=== PATIENT | male | born 1950 | race Caucasian/White ===

== ENCOUNTER 2019-12-06 14:02 | Outpatient (REF) | payer MEDICARE, MEDICAID, SELFPAY ==
--- NOTE | 2019-12-06 14:03 | FL_ITS ---
EXAMINATION: MODIFIED BARIUM SWALLOW CLINICAL INFORMATION: Dysphagia COMPARISON: 08/10/2019 TECHNIQUE: Routine modified barium swallow was performed with the patient in a left lateral seated position. The patient took thin, nectar, honey-thick, pureed and solid food consistencies of barium without difficulty. FLUOROSCOPY TIME: 0.8 minutes of fluoroscopic time was utilized. DOSE AREA PRODUCT: 0.783 Gy-cm2 FINDINGS: The patient demonstrated normal oral bolus formation. There was a no delay in the swallow trigger mechanism with no pooling of fluid in the vallecula and piriform sinuses. There was good contraction and elevation of the soft palate without evidence of nasopharyngeal reflux. There was good anterior-superior excursion of the laryngeal-hyoid complex with good posterior-inferior tipping of the epiglottis. No cricopharyngeal abnormalities were noted. The pharynx and cervical spine have a normal appearance. No aspiration or laryngeal penetration was seen with any oral intake. IMPRESSION: 1. No evidence of aspiration or laryngeal penetration. 2. No significant abnormalities of the oral and pharyngeal phase of swallowing as described above. 3. Please see speech pathology report for specific diet recommendations.
== END 2019-12-06 14:03 | disposition home or self-care (01) ==
LOC: HO.XRAY 14:02
PROVIDERS: Visit Provider Internal Medicine Gastroenterology
DX: R13.10 Dysphagia, unspecified (principal)
CPT/HCPCS: 74220; 92611

== ENCOUNTER 2020-01-31 11:50 | Outpatient (REF) | payer MEDICARE, MEDICAID, SELFPAY ==
--- NOTE | 2020-01-31 12:27 | MR_ITS ---
EXAMINATION: MR BRAIN WITHOUT AND WITH CONTRAST CLINICAL INFORMATION: Anosmia. COMPARISON: CT scan of the head 09/20/2018. Brain MRI 09/15/2016. TECHNIQUE: Multiplanar MR imaging of the brain was performed without and with contrast. A total of 10 mL Gadavist was utilized for this examination. FINDINGS: There is a small focus of gliosis and cortical encephalomalacia involving the left inferior parietal lobule. Scattered nonspecific foci of T2 FLAIR signal hyperintensity are also visualized within the periventricular white matter that most likely represent a chronic manifestation of small vessel ischemia. No acute territorial infarct. No pathological magnetic susceptibility artifact. Intracranial vascular flow voids are maintained. There is a well marginated arachnoid cyst located at the anterior margin of the left middle cranial fossa that measures up to 3.2 cm and maximal transaxial dimension. This finding has not substantially changed when compared to prior MR imaging from 09/17/2016. Postcontrast images reveal no abnormal mass or enhancement within the intracranial compartment. No intracranial mass effect or midline shift. Lateral and third ventricles are normal. No hydrocephalus. Midline structures including the cervicomedullary junction are normal. No acute bone marrow signal changes. There is a trace left mastoid effusion. Mild to moderate paranasal sinus disease primarily affecting the ethmoid air cells and maxillary sinuses. Globes and orbits are symmetric. 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 Scattered chronic small vessel ischemic changes are also visualized within the periventricular white matter. No evidence of acute territorial infarct or hemorrhage. No abnormal intracranial mass or enhancement.
[2020-01-31 12:37] LABS: Blood Urea Nitrogen 23 mg/dL (9-16); Estimated Glomerular Filt Rate > 60
== END 2020-01-31 11:51 | disposition home or self-care (01) ==
LOC: HO.MRI 11:50
PROVIDERS: PCP Internal Medicine; Visit Provider Internal Medicine Gastroenterology
DX: H93.19 Tinnitus, unspecified ear (principal); R43.0 Anosmia; R43.2 Parageusia
CPT/HCPCS: 70553; 82565; 84520; A9585

== ENCOUNTER → 2020-03-17 12:36 | Outpatient (BNVA) | payer MEDICARE, MEDICAID, SELFPAY | PROVIDERS: PCP Internal Medicine; Visit Provider Anesthesiology | DX: M47.817 Spondylosis without myelopathy or radiculopathy, lumbosacral region (principal); M47.812 Spondylosis without myelopathy or radiculopathy, cervical region | CPT/HCPCS: 99212 ==

== ENCOUNTER → 2020-04-02 08:04 | Outpatient (BNVA) | payer MEDICARE, MEDICAID, SELFPAY | PROVIDERS: PCP Internal Medicine; Visit Provider Nurse Practitioner Family | DX: M47.812 Spondylosis without myelopathy or radiculopathy, cervical region (principal); M47.817 Spondylosis without myelopathy or radiculopathy, lumbosacral region | CPT/HCPCS: 99212 ==

== ENCOUNTER → 2020-04-16 08:26 | Outpatient (BNVA) | payer MEDICARE, MEDICAID, SELFPAY | PROVIDERS: PCP Internal Medicine; Visit Provider Nurse Practitioner Family | DX: M47.812 Spondylosis without myelopathy or radiculopathy, cervical region (principal); M47.817 Spondylosis without myelopathy or radiculopathy, lumbosacral region | CPT/HCPCS: 99212 ==

== ENCOUNTER → 2020-04-21 10:02 | Outpatient (BNVA) | payer MEDICARE, MEDICAID, SELFPAY | PROVIDERS: PCP Internal Medicine; Visit Provider Anesthesiology | DX: M47.812 Spondylosis without myelopathy or radiculopathy, cervical region (principal); M47.817 Spondylosis without myelopathy or radiculopathy, lumbosacral region | CPT/HCPCS: Q3014 ==

== ENCOUNTER 2020-05-09 13:25 | Day surgery (SDC) | payer MEDICARE, MEDICAID, SELFPAY ==
--- NOTE | 2020-05-06 12:57 | HO.ANESPROP2 ---
Documented by User: Marquita Sanchez 05/08/20 10:56 HPI - Anesthesia Eval Consult details Narrative: 70yo M for Medial Branch Radiofrequency Pt admitted to [facility] [place] 04/07/20 with CP after telehealth with diplomatic officer. In-patient workup was neg for cardiac etiology. [employer] Manager suggests GI origin of symptoms (esophageal spasm). [employer] Product Development Manager approved interrupting anticoag perioperatively, notes stroke risk. Patient discussied with Dr Gates. [facility] Active Problems Active Problems: All Active Problems (Updated 05/05/20 @ 10:08 by Bridget Meléndez) Anosmia (Acute) Dysgeusia (Acute) Tinnitus (Acute) Depression screen (Acute) Spondylosis of cervical joint without myelopathy (Acute) Spondylosis of lumbosacral spine without myelopathy (Acute) Past Medical History Medical History (Updated 05/08/20 @ 10:52 by Marquita Sanchez) AAA (abdominal aortic aneurysm) Arrhythmia CAD (coronary artery disease) CHF (congestive heart failure) Chronic renal insufficiency Elevated cholesterol History of ischemic cardiomyopathy HTN (hypertension) IDDM (insulin dependent diabetes mellitus) Myocardial infarction On anticoagulant therapy Sleep apnea 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 Family History Family History Father Hx of congenital heart disease Mother Hx of heat stroke Surgical History Surgical History History of colonoscopy History of hernia repair History of PTCA Hx of CABG Hx of endoscopy Hx of gastric bypass Hx of parathyroidectomy Social History Social History Alcohol intake: never Smoking Status: Never smoker Advance Directives: No Advance Directives Information Provided: Yes Meds Allergies Allergy/AdvReac Type Severity Reaction Status Date / Time No Known Allergies Allergy Verified 04/16/20 08:32 [No Known Allergies*] Home Medications Medication Instructions Recorded Confirmed Last Taken Type aspirin 81 mg tablet,delayed 81 mg PO DAILY 04/02/20 05/05/20 05/01/20 History release azelastine 137 mcg (0.1 %) nasal 1 spray INTRANASAL BID 04/02/20 05/05/20 Unknown History spray aerosol baclofen 20 mg tablet 20 mg PO QID 04/02/20 04/16/20 Unknown History bupropion HCl 300 mg 24 hr tablet, 300 mg PO QAM 04/02/20 05/05/20 Unknown History extended release calcium carbonate 600 mg calcium 600 mg PO DAILY 04/02/20 05/05/20 Unknown History (1,500 mg) tablet cholecalciferol (vitamin D3) 25 25 mcg PO DAILY 04/02/20 05/05/20 Unknown History mcg (1,000 unit) capsule docusate sodium 100 mg capsule 100 mg PO DAILY 04/02/20 04/16/20 Unknown History esomeprazole magnesium 20 mg 20 mg PO DAILY 04/02/20 05/05/20 Unknown History capsule,delayed release finasteride 5 mg tablet 5 mg PO DAILY 04/02/20 05/05/20 Unknown History fluticasone propionate 50 1 spray INTRANASAL DAILY 04/02/20 05/05/20 Unknown History mcg/actuation nasal spray,suspension hydroxyzine HCl 25 mg tablet 25 mg PO BID PRN 04/02/20 05/05/20 Unknown History lidocaine HCl 4 % topical cream 1 appl TOPICAL QID PRN 04/02/20 04/16/20 Unknown History lisinopril 5 mg tablet 5 mg PO DAILY 04/02/20 05/05/20 Unknown History metoprolol tartrate 25 mg tablet 12.5 mg PO BID 04/02/20 05/05/20 Unknown History primidone 50 mg tablet 50 mg PO TID tab 04/02/20 05/05/20 Unknown History rivaroxaban 20 mg tablet 20 mg PO DAILY 04/02/20 05/05/20 05/06/20 History rosuvastatin 40 mg tablet 40 mg PO DAILY 04/02/20 05/05/20 Unknown History sertraline 25 mg tablet 25 mg PO DAILY 04/02/20 04/16/20 Unknown History tamsulosin 0.4 mg capsule 0.4 mg PO BEDTIME 04/02/20 05/05/20 Unknown History torsemide 20 mg tablet 20 mg PO DAILY 04/02/20 05/05/20 Unknown History amitriptyline 2 tab PO BEDTIME 05/05/20 05/05/20 Unknown History insulin glargine [Basaglar KwikPen 30 unit SUBCUT BEDTIME 05/05/20 05/05/20 Unknown History U-100 Insulin] uixtjuoethiw-yvol-tlwjh acid 1 tab PO QAM 05/05/20 05/05/20 Unknown History [Cerovite Advanced Formula] Exam Exam Date and Time: May 06, 2020 1257 Narrative Narrative: EKG 04/07/20 Afib with slow VR, Non-specific intra-ventricular conduction block, Inferior infart (cited 2004) Echo 04/11/20 LV size is normal, LV wall thickness is normal, Overall LV systolic function is normal, LVEF 60-65% Basal to mid inferolateral wall appears severely hypokinetic Unable to assess diastolic function due to afib Low gradient , no AR RV is poorly visualized. RV appears mildly dilated with mildly reduced systolic function Cath 04/10/20 ZAVALA to LAD patent, [place] [employer] [place] LCx EXTERNAL RELATIONS DIRECTOR and radial graft to LCx occluded, SVG to rPDA patent; no findings for cardiac chest pain, cardiology suggested symptoms r/t GI in origin CXR 04/07/20 No significant interval change. No evidence of acute pulmonary disease. 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 Family History Family History Father Hx of congenital heart disease Mother Hx of heat stroke Surgical History Surgical History History of colonoscopy History of hernia repair History of PTCA Hx of CABG Hx of endoscopy Hx of gastric bypass Hx of parathyroidectomy Social History Social History Alcohol intake: never Smoking Status: Never smoker Advance Directives: No Advance Directives Information Provided: Yes Meds Allergies Allergy/AdvReac Type Severity Reaction Status Date / Time No Known Allergies Allergy Verified 04/16/20 08:32 [No Known Allergies*] Home Medications Medication Instructions Recorded Confirmed Last Taken Type aspirin 81 mg tablet,delayed 81 mg PO DAILY 04/02/20 05/05/20 05/01/20 History release azelastine 137 mcg (0.1 %) nasal 1 spray INTRANASAL BID 04/02/20 05/05/20 Unknown History spray aerosol baclofen 20 mg tablet 20 mg PO QID 04/02/20 04/16/20 Unknown History bupropion HCl 300 mg 24 hr tablet, 300 mg PO QAM 04/02/20 05/05/20 Unknown History extended release calcium carbonate 600 mg calcium 600 mg PO DAILY 04/02/20 05/05/20 Unknown History (1,500 mg) tablet cholecalciferol (vitamin D3) 25 25 mcg PO DAILY 04/02/20 05/05/20 Unknown History mcg (1,000 unit) capsule docusate sodium 100 mg capsule 100 mg PO DAILY 04/02/20 04/16/20 Unknown History esomeprazole magnesium 20 mg 20 mg PO DAILY 04/02/20 05/05/20 Unknown History capsule,delayed release finasteride 5 mg tablet 5 mg PO DAILY 04/02/20 05/05/20 Unknown History fluticasone propionate 50 1 spray INTRANASAL DAILY 04/02/20 05/05/20 Unknown History mcg/actuation nasal spray,suspension hydroxyzine HCl 25 mg tablet 25 mg PO BID PRN 04/02/20 05/05/20 Unknown History lidocaine HCl 4 % topical cream 1 appl TOPICAL QID PRN 04/02/20 04/16/20 Unknown History lisinopril 5 mg tablet 5 mg PO DAILY 04/02/20 05/05/20 Unknown History metoprolol tartrate 25 mg tablet 12.5 mg PO BID 04/02/20 05/05/20 Unknown History primidone 50 mg tablet 50 mg PO TID tab 04/02/20 05/05/20 Unknown History rivaroxaban 20 mg tablet 20 mg PO DAILY 04/02/20 05/05/20 05/06/20 History rosuvastatin 40 mg tablet 40 mg PO DAILY 04/02/20 05/05/20 Unknown History sertraline 25 mg tablet 25 mg PO DAILY 04/02/20 04/16/20 Unknown History tamsulosin 0.4 mg capsule 0.4 mg PO BEDTIME 04/02/20 05/05/20 Unknown History torsemide 20 mg tablet 20 mg PO DAILY 04/02/20 05/05/20 Unknown History amitriptyline 2 tab PO BEDTIME 05/05/20 05/05/20 Unknown History insulin glargine [Basaglar KwikPen 30 unit SUBCUT BEDTIME 05/05/20 05/05/20 Unknown History U-100 Insulin] qiiofmemjdpl-grjh-pexkw acid 1 tab PO QAM 05/05/20 05/05/20 Unknown History [Cerovite Advanced Formula] Exam Airway Mallampati Class: III TM Dist: >3cm Neck ROM: Full Heart: RRR Lungs: CTA
--- NOTE | ~2020-05-09 | FL_ITS ---
EXAMINATION: XR FLUOROSCOPY WITH IMAGES CLINICAL INFORMATION: Medial branch RFA COMPARISON: Previous exam January 2018 TECHNIQUE: Fluoroscopy performed by Dr. Chino Gates. Fluoroscopy time: 0.8 minutes DAP: 10.4 mGycm2 Images: 4 FINDINGS: Images demonstrate bilateral lateral lead placement at the L3-L4 L4-L5 and L5-S1 levels. There is an aortobiiliac endograft. FL/FL guidance in OR IMPRESSION: Fluoroscopy guidance for medial branch RFA.
[2020-05-09 13:33] VITALS: BP 131/63; PULSE 56; RESP 18; TEMP 36.4; O2SAT 96; BMI 34.0
[2020-05-09 13:35] LABS: Glucose, Whole Blood 92 mg/dL (60-115)
--- NOTE | 2020-05-09 13:56 | PM.OP ---
Brief Operative Note Date of Service: 05/09/20 Pre-op diagnosis: Spondylosis lumbar spine without myelopathy or radiculopathy Post-op diagnosis: same Procedure: RFA L3-L4 dorsal ramus L5 bilateral Implants: None Surgeon: Chino Gates MD Anesthesia: MAC Estimated blood loss (mL): 2 Pathology: none sent Condition: stable Disposition: PACU
--- NOTE | 2020-05-09 13:57 | PC.NURSE ---
pt unsure what meds took today in package. he said took all his am meds.
--- NOTE | 2020-05-09 13:58 | MHC.SHP ---
Pre-Procedural Eval Section A The patient is an INPATIENT: No Changes since office visit: Yes Patient answered all questions The History & Physical has been completed within 30 days and I have reviewed it.: No Section B Chief Complaint: spondylosis cervical region Details of Present Illness: Spondylosis lumbar without myelopathy or radiculopathy Relevant Family History (Specify if Yes): No Relevant Social History: None Present Medications: see Short Stay Collaborative assessment Medical History: No relevant PMH History of Previous Operations: No relevant previous surgery Allergies: Allergies Allergy/AdvReac Type Severity Reaction Status Date / Time No Known Allergies Allergy Verified 04/16/20 08:32 [No Known Allergies*] Review of Systems Sugical H&P ROS: Negative: Cardiovascular, Respiratory, Neurological, Psychiatric, Hem-Onc, Allergic/Immunologic, Gastrointestinal, Genitourinary, Musculoskeletal, Integumentary, Endocrine and Eyes/Ears/Nose/Throat and Yes, Specify: Constitution (Obesity) Exam Surgical H&P Exam: Normal: HEENT, Normal: Heart, Normal: Lungs, Normal: Extremities, Normal: Abdomen, Normal: Skin and Normal: Neurological Plan Diagnosis/Plan: Unchanged I have reviewed the history and physical and performed a pertinent physical examination on my patient. No changes have occurred unless specified.
--- NOTE | 2020-05-09 14:00 | PC.NURSE ---
glasses in rightjacket pocket zipped up
--- NOTE | 2020-05-09 14:46 | W.PM.OPN ---
Operative Note Operative Note Date of Service: 05/09/20 Narrative: Joe is very pleasant pleasant 70 years old gentleman who came to OR for the medial branch radiofrequency ablation-L3 L4 dorsal ramus L5 o bilateral the attempt to treat lumbar spondylosis related pain After obtaining informed consent patient was brought to the operating room, HE was positioned prone on operating table, [employer] monitors were applied and patient was deeply sedated. Time-out was performed delineating correct site, side, the nature of the procedure, patient's allergy, preoperative antibiotic if needed. All operating room staff was participating in OR time-out procedure. He received preoperatively clindamycin 900 mg IV approximately 20 minutes before the procedure. Patient's entire back was prepped with ChloraPrep twice and draped with sterile utility drapes. Sterilely draped C-arm was brought over operating field and square picture of L4 and L5 vertebra as well as sacral bone were demonstrated on the screen. The point of interests were delineated as connection of superior articular process ofL4, L5 vertebrae bilaterally with corresponding bilateral transverse processes, as well as connection of the superior articular process of S1 bilateral with bilateral sacral alae. The projection of the point of interest to the skin was injected with small amount of lidocaine 2%. After that 18 gauge radiofrequency cannulas were sequentially driven to the point of interest in tunnel vision fashion 1st on the right and then on the left. When needle gently contacted the bone sensory and motor stimulation was performed. On sensory stimulation patient reported pain in the area of the stimulation, on motor stimulation patient denied any pulsating movement in the lower extremity. After that the needle was injected with small amount of mixture of bupivacaine 0.5% and lidocaine 2% with addition of trace amount of Kenalog. Total dose of Kenalog was less than 20 mg. Energy application was performed with 89 degree centigrade for 90 seconds on each side. After 1st application of energy the needles were rotated 180? and application of energy was repeated.. Upon completion of the energy application cannulas were removed sterile dressing was applied. Patient tolerated procedure well he was taking outside of the operating room to recovery room where he recovered uneventfully. He went home without immediate complications.
[2020-05-09 14:50] VITALS: BP 116/67; PULSE 51; RESP 14; TEMP 37.1; O2SAT 96
[2020-05-09 15:04] VITALS: BP 133/64; PULSE 50; RESP 16; TEMP 37.1; O2SAT 97
--- NOTE | 2020-05-09 16:18 | HO.POSTANES ---
Post Anesthesia Evaluation Post Anesthesia Evaluation Vital Signs: Vital Signs Temp Pulse Resp BP Pulse Ox 05/09/20 15:04 98.8 F 50 16 133/64 97 05/09/20 14:50 98.8 F 51 14 116/67 96 05/09/20 13:33 97.5 F 56 18 131/63 96 Anesthesia: Monitored Mental Status: Awake Pain Control: Satisfactory Nausea/Vomiting: None Hydration: Adequate Anesthesia-Related Issues: No Anes. Related Issues
== END 2020-05-09 18:00 | disposition home or self-care (01) ==
PROVIDERS: PCP Internal Medicine; Visit Provider Anesthesiology
PROC: (CPT 64635; principal; 2020-05-09 15:00)
DX: M47.817 Spondylosis without myelopathy or radiculopathy, lumbosacral region (principal); M47.812 Spondylosis without myelopathy or radiculopathy, cervical region; I11.0 Hypertensive heart disease with heart failure; I50.32 Chronic diastolic (congestive) heart failure; E11.22 Type 2 diabetes mellitus with diabetic chronic kidney disease; I25.2 Old myocardial infarction; G47.33 Obstructive sleep apnea (adult) (pediatric); N18.9 Chronic kidney disease, unspecified; Z79.4 Long term (current) use of insulin; Z79.01 Long term (current) use of anticoagulants; Z79.82 Long term (current) use of aspirin
CPT/HCPCS: 64635; 64636 ×2; 82947; J2250; J3010; J3300

== ENCOUNTER → 2020-05-14 08:03 | Outpatient (BNVA) | payer MEDICARE, MEDICAID, SELFPAY | PROVIDERS: PCP Internal Medicine; Visit Provider Nurse Practitioner Family | DX: M47.812 Spondylosis without myelopathy or radiculopathy, cervical region (principal); M47.817 Spondylosis without myelopathy or radiculopathy, lumbosacral region; Z79.899 Other long term (current) drug therapy | CPT/HCPCS: 99212 ==

== ENCOUNTER → 2020-05-26 14:50 | Outpatient (BNVA) | payer MEDICARE, MEDICAID, SELFPAY | PROVIDERS: PCP Internal Medicine; Visit Provider Internal Medicine Gastroenterology | DX: R68.81 Early satiety (principal); R43.2 Parageusia; R13.10 Dysphagia, unspecified | CPT/HCPCS: Q3014 ==

== ENCOUNTER → 2020-06-11 10:43 | Outpatient (BNVA) | payer MEDICARE, MEDICAID, SELFPAY | PROVIDERS: PCP Internal Medicine; Visit Provider Nurse Practitioner Family | DX: M47.812 Spondylosis without myelopathy or radiculopathy, cervical region (principal); M47.817 Spondylosis without myelopathy or radiculopathy, lumbosacral region | CPT/HCPCS: 99212 ==

== ENCOUNTER → 2020-06-17 07:50 | Outpatient (REF) | payer MEDICARE, MEDICAID, SELFPAY ==
--- NOTE | ~2020-06-17 | NM_ITS ---
EXAMINATION: NM RADIONUCLIDE SOLID FOOD GASTRIC EMPTYING 4-HOUR STUDY CLINICAL INFORMATION: Early satiety. History of gastric sleeve surgery around 2005. The patient apparently takes multiple medications (about 27 medications a day). Medications were this morning at 6:00 with about 12 ounces of water. History of stroke. COMPARISON: None TECHNIQUE: A standard meal consisting of 4 oz of scrambled egg whites tagged with 0.71 microcuries Tc-99m Sulfur Colloid, 6 oz water and 2 slices of toast with jelly was administered orally to the patient. Images were obtained using a dual head gamma camera in the anterior and posterior projections over of the stomach immediately post ingestion and at hourly intervals up to 4 hours post ingestion. The anterior and posterior counts at each time interval were averaged using the geometric mean and expressed as percentage of the immediate post ingestion counts. FINDINGS: There is good visualization of activity in the stomach immediately post ingestion. As the study progresses, there is good clearance of activity from the stomach and visualization of progressively increasing small bowel activity. By the end of the study, there is almost no retention noted in the stomach. Retention in the stomach at each time interval was: 1 hour 46% (normal 37%-90%) 2 hours 22% (normal 30%-60%) 3 hours 10% 4 hours 9% (normal 0%-10%) NM/NM gastric emptying study IMPRESSION: Normal 4-hour solid food gastric emptying study.
== END ==
LOC: HO.NUCMED 07:50
PROVIDERS: Visit Provider Internal Medicine Gastroenterology
DX: R68.81 Early satiety (principal)
CPT/HCPCS: 78264; A9541

== ENCOUNTER 2020-06-20 08:35 | Day surgery (SDC) | payer MEDICARE, MEDICAID, SELFPAY ==
[2020-06-17 11:36] VITALS: BMI 34.0
--- NOTE | 2020-06-19 12:02 | P.CONAN_ITS ---
Documented by User: Marquita Sanchez 06/19/20 12:04 HPI - Anesthesia Eval Consult details Narrative: 70yo M for Bilateral Medial Branch Radiofrequency s/p Medial Branch Radiofreq with MAC 04/2020 [place] [facility] [place] after telehealth with computer specialist. In- patient workup was neg for cardiac etiology. Survey Supervisor suggests GI origin of symptoms (esophageal spasm). Survey Supervisor approved interrupting anticoag perioperatively, notes stroke risk. Patient discussed with Dr Gates. PRN opioids PMFSH Active Problems Active Problems: All Active Problems (Updated 05/26/20 @ 14:14 by Estiven Gonzalez MD) Anosmia (Acute) Dysgeusia (Acute) Tinnitus (Acute) Depression screen (Acute) Dysphagia (Acute) Spondylosis of cervical joint without myelopathy (Acute) Spondylosis of lumbosacral spine without myelopathy (Acute) Past Medical History Medical History (Updated 06/20/20 @ 10:26 by Stacey Ceballos) AAA (abdominal aortic aneurysm) Arrhythmia Benign essential tremor CAD (coronary artery disease) CHF (congestive heart failure) Chronic renal insufficiency CVA (cerebral vascular accident) Elevated cholesterol History of ischemic cardiomyopathy HTN (hypertension) IDDM (insulin dependent diabetes mellitus) Myocardial infarction On anticoagulant therapy Sleep apnea 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 Family History Family History Father Hx of congenital heart disease Mother Hx of heat stroke Surgical History Surgical History History of colonoscopy History of hernia repair History of PTCA History of surgery Hx of CABG Hx of endoscopy Hx of gastric bypass Hx of parathyroidectomy Social History Social History Alcohol intake: never Smoking Status: Former smoker Smoked in Last 30 Days: No Smoking Quit Date: 1988 Use of substances other than those prescribed or required for medical reasons: Yes Advance Directives: No Advance Directives Information Provided: Yes Meds Allergies Allergy/AdvReac Type Severity Reaction Status Date / Time grass pollen Allergy Mild unknown Verified 06/11/20 10:52 tree and shrub pollen Allergy Mild itchy Verified 06/11/20 10:52 eyes, sneeze, runny nose Home Medications Medication Instructions Recorded Confirmed Last Taken Type aspirin 81 mg tablet,delayed 81 mg PO DAILY 04/02/20 06/11/20 06/13/20 History release azelastine 137 mcg (0.1 %) nasal 1 spray INTRANASAL BID 04/02/20 06/11/20 06/20/20 History spray aerosol baclofen 20 mg tablet 20 mg PO QID 04/02/20 06/11/20 06/20/20 History bupropion HCl 300 mg 24 hr tablet, 300 mg PO QAM 04/02/20 06/11/20 06/20/20 History extended release calcium carbonate 600 mg calcium 600 mg PO DAILY 04/02/20 06/11/20 06/20/20 History (1,500 mg) tablet cholecalciferol (vitamin D3) 25 25 mcg PO DAILY 04/02/20 06/11/20 06/20/20 History mcg (1,000 unit) capsule docusate sodium 100 mg capsule 100 mg PO DAILY 04/02/20 06/11/20 06/20/20 History esomeprazole magnesium 20 mg 20 mg PO DAILY 04/02/20 06/11/20 06/20/20 History capsule,delayed release finasteride 5 mg tablet 5 mg PO DAILY 04/02/20 06/11/20 06/20/20 History fluticasone propionate 50 1 spray INTRANASAL DAILY 04/02/20 06/11/20 06/20/20 History mcg/actuation nasal spray,suspension hydroxyzine HCl 25 mg tablet 25 mg PO BID PRN 04/02/20 06/11/20 Unknown History lidocaine HCl 4 % topical cream 1 appl TOPICAL QID PRN 04/02/20 06/11/20 Unknown History lisinopril 5 mg tablet 5 mg PO DAILY 04/02/20 06/11/20 06/20/20 History metoprolol tartrate 25 mg tablet 12.5 mg PO BID 04/02/20 06/11/20 06/20/20 History primidone 50 mg tablet 50 mg PO TID tab 04/02/20 06/11/20 06/20/20 History rivaroxaban 20 mg tablet 20 mg PO DAILY 04/02/20 06/11/20 06/17/20 History rosuvastatin 40 mg tablet 40 mg PO DAILY 04/02/20 06/11/20 06/20/20 History sertraline 25 mg tablet 25 mg PO DAILY 04/02/20 06/11/20 06/20/20 History tamsulosin 0.4 mg capsule 0.4 mg PO BEDTIME 04/02/20 06/11/20 Unknown History torsemide 20 mg tablet 20 mg PO DAILY 04/02/20 06/11/20 06/20/20 History amitriptyline 2 tab PO BEDTIME 05/05/20 06/11/20 Unknown History insulin glargine [Basaglar KwikPen 30 unit SUBCUT BEDTIME 05/05/20 06/11/20 06/19/20 History U-100 Insulin] schburlwgznj-wksp-rywsl acid 1 tab PO QAM 05/05/20 06/11/20 06/20/20 History [Cerovite Advanced Formula] clonazepam 0.5 mg tablet 0.5 mg PO BID PRN 05/26/20 06/11/20 Unknown History ipratropium bromide 42 mcg (0.06 1 INTRANASAL BEDTIME 05/26/20 06/11/20 Unknown History %) nasal spray nitroglycerin 0.4 mg sublingual 0.4 mg SUBLINGUAL 05/26/20 06/11/20 Unknown History tablet pen needle, diabetic 32 gauge x #50 ea 05/26/20 06/11/20 Unknown History zolpidem 10 mg tablet 10 mg PO BEDTIME PRN 05/26/20 06/11/20 Unknown History Exam Exam Date and Time: June 19, 2020 1202 Height,Weight and Vital Signs: Height 5 ft 8 in Weight 101.605 kg Narrative Narrative: EKG 04/07/20 Afib with slow VR, Non-specific intra-ventricular conduction block, Inferior infart (cited 2004) Echo 04/11/20 LV size is normal, LV wall thickness is normal, Overall LV systolic function is normal, LVEF 60-65% Basal to mid inferolateral wall appears severely hypokinetic Unable to assess diastolic function due to afib Low gradient , no AR RV is poorly visualized. RV appears mildly dilated with mildly reduced systolic function Cath 04/10/20 ZAVALA to LAD patent, [place] [employer] and radial graft to LCx occluded, SVG to rPDA patent; no findings for cardiac chest pain, cardiology suggested symptoms r/t GI in origin CXR 04/07/20 No significant interval change. No evidence of acute pulmonary disease. Assessment and Plan Assessment Anesthesia Assessment: Chart Reviewed Documented by User: Stacey Ceballos 06/20/20 10:28 [facility] Past Medical History Medical History (Updated 06/20/20 @ 10:26 by Stacey Ceabllos) AAA (abdominal aortic aneurysm) Arrhythmia Benign essential tremor CAD (coronary artery disease) CHF (congestive heart failure) Chronic renal insufficiency CVA (cerebral vascular accident) Elevated cholesterol History of ischemic cardiomyopathy HTN (hypertension) IDDM (insulin dependent diabetes mellitus) Myocardial infarction On anticoagulant therapy Sleep apnea 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 Family History Family History Father Hx of congenital heart disease Mother Hx of heat stroke Family history of problems with anesthesia: No Surgical History Surgical History History of colonoscopy History of hernia repair History of PTCA History of surgery Hx of CABG Hx of endoscopy Hx of gastric bypass Hx of parathyroidectomy History of Problems with Anesthesia: No Social History Social History Alcohol intake: never Smoking Status: Former smoker Smoked in Last 30 Days: No Smoking Quit Date: 1988 Use of substances other than those prescribed or required for medical reasons: Yes Advance Directives: No Advance Directives Information Provided: Yes Meds Allergies Allergy/AdvReac Type Severity Reaction Status Date / Time grass pollen Allergy Mild unknown Verified 06/11/20 10:52 tree and shrub pollen Allergy Mild itchy Verified 06/11/20 10:52 eyes, sneeze, runny nose Home Medications Medication Instructions Recorded Confirmed Last Taken Type aspirin 81 mg tablet,delayed 81 mg PO DAILY 04/02/20 06/11/20 06/13/20 History release azelastine 137 mcg (0.1 %) nasal 1 spray INTRANASAL BID 04/02/20 06/11/2006/20/21 History spray aerosol baclofen 20 mg tablet 20 mg PO QID 04/02/20 06/11/20 06/20/20 History bupropion HCl 300 mg 24 hr tablet, 300 mg PO QAM 04/02/20 06/11/20 06/20/20 History extended release calcium carbonate 600 mg calcium 600 mg PO DAILY 04/02/20 06/11/20 06/20/20 History (1,500 mg) tablet cholecalciferol (vitamin D3) 25 25 mcg PO DAILY 04/02/20 06/11/20 06/20/20 History mcg (1,000 unit) capsule docusate sodium 100 mg capsule 100 mg PO DAILY 04/02/20 06/11/20 06/20/20 History esomeprazole magnesium 20 mg 20 mg PO DAILY 04/02/20 06/11/20 06/20/20 History capsule,delayed release finasteride 5 mg tablet 5 mg PO DAILY 04/02/20 06/11/20 06/20/20 History fluticasone propionate 50 1 spray INTRANASAL DAILY 04/02/20 06/11/20 06/20/20 History mcg/actuation nasal spray,suspension hydroxyzine HCl 25 mg tablet 25 mg PO BID PRN 04/02/20 06/11/20 Unknown History lidocaine HCl 4 % topical cream 1 appl TOPICAL QID PRN 04/02/20 06/11/20 Unknown History lisinopril 5 mg tablet 5 mg PO DAILY 04/02/20 06/11/20 06/20/20 History metoprolol tartrate 25 mg tablet 12.5 mg PO BID 04/02/20 06/11/20 06/20/20 History primidone 50 mg tablet 50 mg PO TID tab 04/02/20 06/11/20 06/20/20 History rivaroxaban 20 mg tablet 20 mg PO DAILY 04/02/20 06/11/20 06/17/20 History rosuvastatin 40 mg tablet 40 mg PO DAILY 04/02/20 06/11/20 06/20/20 History sertraline 25 mg tablet 25 mg PO DAILY 04/02/20 06/11/20 06/20/20 History tamsulosin 0.4 mg capsule 0.4 mg PO BEDTIME 04/02/20 06/11/20 Unknown History torsemide 20 mg tablet 20 mg PO DAILY 04/02/20 06/11/20 06/20/20 History amitriptyline 2 tab PO BEDTIME 05/05/20 06/11/20 Unknown History insulin glargine [Basaglar KwikPen 30 unit SUBCUT BEDTIME 05/05/20 06/11/20 06/19/20 History U-100 Insulin] lnebatucwrla-tqai-ayonv acid 1 tab PO QAM 05/05/20 06/11/20 06/20/20 History [Cerovite Advanced Formula] clonazepam 0.5 mg tablet 0.5 mg PO BID PRN 05/26/20 06/11/20 Unknown History ipratropium bromide 42 mcg (0.06 1 INTRANASAL BEDTIME 05/26/20 06/11/20 Unknown History %) nasal spray nitroglycerin 0.4 mg sublingual 0.4 mg SUBLINGUAL 05/26/20 06/11/20 Unknown History tablet pen needle, diabetic 32 gauge x #50 ea 05/26/20 06/11/20 Unknown History zolpidem 10 mg tablet 10 mg PO BEDTIME PRN 05/26/20 06/11/20 Unknown History Exam Height,Weight and Vital Signs: Vital Signs Temp Pulse Resp BP Pulse Ox 06/20/20 09:11 98.1 F 51 16 138/65 98 Lab Results 06/20/20 Range/Units 08:47 POC Glucose 132 H (60-115) mg/dL Airway Mallampati Class: III TM Dist: >3cm Neck ROM: Limited Heart: RRR Lungs: CTAB Assessment and Plan Assessment Anesthesia Assessment: Anesthesia Plan Discussed and Chart Reviewed Final Anesthetic Review NPO: Yes ASA Class: III Final Preanesthetic Review: No Changes in Pt Med Stat, Meds/Allgs Chart Reviewed, Consent Obtained/Reviewed and Anes Risks/Benef Reviewed Patient Risk: High Procedure Risk: Intermediate Assessment/Block/Sedation in SS: Assess/Block/Sedation-SS Anesthetic Plan Anesthetic Plan: MAC: Disposition: Standard PACU
--- NOTE | ~2020-06-20 | FL_ITS ---
EXAMINATION: XR FLUOROSCOPY WITH IMAGES CLINICAL INFORMATION: Medial branch RFA COMPARISON: None. TECHNIQUE: Fluoroscopy performed by Dr. Gates Fluoroscopy time: 1.1 minutes DAP: 32.6 mGycm2 Images: 5 FINDINGS: Intraoperative fluoroscopy was provided for use by Dr. Gates. A radiologist was not present during imaging. Today's dictation is only for administrative purposes to document intraoperative fluoroscopy. FL/FL guidance in OR IMPRESSION: Intraoperative fluoroscopy provided for use by Dr. Gates. Please see procedure note for details findings.
[2020-06-20 08:50] LABS: Glucose, Whole Blood 132 mg/dL (60-115)
--- NOTE | 2020-06-20 08:55 | MHC.SHP ---
Pre-Procedural Eval Section A The patient is an INPATIENT: No Changes since office visit: Yes Patient answered all questions The History & Physical has been completed within 30 days and I have reviewed it.: No Section B Chief Complaint: spondylosis cervical region Details of Present Illness: as above Relevant Family History (Specify if Yes): No Relevant Social History: None Present Medications: see Short Stay Collaborative assessment Medical History: No relevant PMH History of Previous Operations: No relevant previous surgery Allergies: Allergies Allergy/AdvReac Type Severity Reaction Status Date / Time grass pollen Allergy Mild unknown Verified 06/11/20 10:52 tree and shrub pollen Allergy Mild itchy Verified 06/11/20 10:52 eyes, sneeze, runny nose Review of Systems Sugical H&P ROS: Negative: Constitution, Cardiovascular, Respiratory, Neurological, Psychiatric, Hem-Onc, Allergic/Immunologic, Gastrointestinal, Genitourinary, Musculoskeletal, Integumentary, Endocrine and Eyes/Ears/Nose/Throat Exam Surgical H&P Exam: Normal: HEENT, Normal: Heart, Normal: Lungs, Normal: Extremities, Normal: Abdomen, Normal: Skin and Normal: Neurological Plan Diagnosis/Plan: Unchanged I have reviewed the history and physical and performed a pertinent physical examination on my patient. No changes have occurred unless specified.
[2020-06-20 09:11] VITALS: BP 138/65; PULSE 51; RESP 16; TEMP 36.7; O2SAT 98
[2020-06-20] MEDS: 0.9 % Sodium Chloride 1,000 ML 50 ML IVCONT (09:15)
[2020-06-20 10:42] VITALS: BP 136/71; PULSE 53; RESP 14; TEMP 36.5; O2SAT 95
--- NOTE | 2020-06-20 10:46 | PM.OP ---
Brief Operative Note Date of Service: 06/20/20 Pre-op diagnosis: spondylosis cervical spine, facet arthropathy cervical Post-op diagnosis: same Procedure: RFA of C4 - C5- C6 MBBs bilateral Implants: none Surgeon: Chino Gates MD Anesthesia: MAC Estimated blood loss (mL): 2 Pathology: none sent Condition: stable Disposition: PACU
--- NOTE | 2020-06-20 10:48 | W.PM.OPN ---
Operative Note Operative Note Date of Service: 06/20/20 Narrative: Cervical MB RFA Informed consent was explained to the patient. All questions were explained and answered. The patient was taken inside the operating room where the patient was positioned prone on the operating table with the pillow under the chest and a small head support. ASA monitors were applied and the patient was minimally sedated. Time-out was performed delineating correct site, side, the nature of the procedure, patient's allergy, All operating room staff was participating in OR time-out procedure. The posterior neck was prepped with ChloraPrep and draped with sterile towels. Sterilely draped C-arm was brought over the operating field and square picture of C4- C5 and C6 vertebrae were delineated on the screen. Point of interest were delineated as BILATERAL lateral masses of the above mentioned vertebrae. The waste line of the lateral masses was chosen as the final needle target. The projection of the point of interest to the skin were injected with the small amount of local anesthetic lidocaine 2% 1-1.5 cc. After that first on the right side 18 gauge 100 mm radiofrequency cannulas were driven to the point of interest in tunnel vision fashion. After needles gently contacting the bone at the point of interests the lateral view was obtained for each cannula and it was adjusted to be in the centroid of the lateral mass lateral projection. Stylets were removed from the cannulas and nitinol electrodes were inserted into the cannulas. Testing was performed at each level during which the patient did not report any motor stimulation in the arm, forearm, or hand. The electrodes were removed; the cannulas were injected with small amount of bupivacaine 0.5%-1cc mixed with trace amount of kenalog. The electrodes were reinserted and after 90 seconds of wait RF energy was applied at the temperature of 89 degrees Celsius for 90 seconds. After that the cannulas were rotated 180 degreed the same energy application was repeated. Upon completion of the injections the cannulas were removed and the procedure was performed in the mirroring fashion on the left side. Sterile band aids were applied , patient was taken outside of the operating room to recovery room where recovered uneventfully. The patient went home without immediate complications.
[2020-06-20 10:57] VITALS: BP 122/65; PULSE 52; RESP 17; TEMP 36.5; O2SAT 96
[2020-06-20] MEDS: oxyCODONE HCl Immed Release 5 MG TABLET PO (11:17)
== END 2020-06-20 11:45 | disposition home or self-care (01) ==
PROVIDERS: PCP Internal Medicine; Visit Provider Anesthesiology
PROC: (CPT 64633; principal; 2020-06-20 09:00)
DX: M47.812 Spondylosis without myelopathy or radiculopathy, cervical region (principal); I48.91 Unspecified atrial fibrillation; Z79.01 Long term (current) use of anticoagulants; G25.0 Essential tremor; E11.22 Type 2 diabetes mellitus with diabetic chronic kidney disease; I13.0 Hypertensive heart and chronic kidney disease with heart failure and stage 1 through stage 4 chronic kidney disease, or unspecified chronic kidney disease; N18.30 Chronic kidney disease, stage 3 unspecified; I50.32 Chronic diastolic (congestive) heart failure; Z87.891 Personal history of nicotine dependence; Z57.31 Occupational exposure to environmental tobacco smoke; Z79.4 Long term (current) use of insulin; G47.33 Obstructive sleep apnea (adult) (pediatric); Z99.89 Dependence on other enabling machines and devices; Z79.899 Other long term (current) drug therapy; Z98.84 Bariatric surgery status; Z79.82 Long term (current) use of aspirin
CPT/HCPCS: 64633; 64634 ×2; 82947; J2250; J3010; J3300

== ENCOUNTER 2020-07-03 08:58 | Outpatient (REF) | payer MEDICARE, MEDICAID, SELFPAY ==
--- NOTE | ~2020-07-03 | FL_ITS ---
EXAMINATION: FL BARIUM SWALLOW CLINICAL INFORMATION: Dysphagia. COMPARISON: None. TECHNIQUE: Barium swallow examination is performed using fluoroscopic evaluation in addition to multiple fluoroscopic spot views. The patient is imaged both upright and prone and using both thick and thin sulfate along with effervescent granules. Fluoroscopy time: 2.2 minutes DAP: 31.128 Gycm2 Images: T7 FINDINGS: Following oral administration of thick barium and barium-coated turkey, there is normal propagation of bolus from the oral cavity through the pharynx and esophagus and into the stomach without any evidence of obstruction, narrowing or stricture. On oral administration of barium tablet, there is mild holdup at the GE junction. This cleared with a subsequent glass of water. On placing patient prone and oral administration of thin barium, there is good opacification of the entire esophagus without intraluminal filling defect or narrowing. There is no extrinsic impression. No gastroesophageal reflux or hiatal hernia seen. There are median sternotomy shey from previous CABG. FL/FL barium swallow IMPRESSION: Except for transient holdup of barium tablet at the GE junction, barium swallow exam is unremarkable.
== END 2020-07-03 08:59 | disposition home or self-care (01) ==
LOC: HO.XRAY 08:58
PROVIDERS: PCP Internal Medicine; Visit Provider Internal Medicine Gastroenterology
DX: K22.4 Dyskinesia of esophagus (principal)
CPT/HCPCS: 74220

== ENCOUNTER → 2020-07-16 15:52 | Outpatient (BNVA) | payer MEDICARE, MEDICAID, SELFPAY | PROVIDERS: Visit Provider Anesthesiology | DX: M47.812 Spondylosis without myelopathy or radiculopathy, cervical region (principal); M47.817 Spondylosis without myelopathy or radiculopathy, lumbosacral region | CPT/HCPCS: 99212 ==

== ENCOUNTER 2020-09-02 05:51 | Outpatient (REF) | payer MEDICARE, MEDICAID, SELFPAY ==
--- NOTE | ~2020-09-02 | FL_ITS ---
EXAMINATION: XR FLUOROSCOPY WITH IMAGES CLINICAL INFORMATION: Spondylosis without myelopathy or radiculopathy COMPARISON: None. TECHNIQUE: Fluoroscopy performed by Florence Lewis . Fluoroscopy time: 0.3 minutes DAP: 5.48 Gycm2 Images: 8 FINDINGS: Images of cervical spine reveal 3 needles positioned along bilat. Anterior C2 and C3 masses with contrast opacifying the soft tissues. FL/FL guidance in treatment room IMPRESSION: Fluoroscopy was provided to the referring physician for upper cervical neck pain management.
== END 2020-09-02 05:52 | disposition home or self-care (01) ==
LOC: HO.RADIR 05:51
PROVIDERS: Visit Provider Anesthesiology
DX: M47.812 Spondylosis without myelopathy or radiculopathy, cervical region (principal); M47.817 Spondylosis without myelopathy or radiculopathy, lumbosacral region
CPT/HCPCS: 64490; 64491; J1100; J3300; Q9967

== ENCOUNTER → 2020-10-07 15:04 | Outpatient (BNVA) | payer MEDICARE, MEDICAID, SELFPAY | PROVIDERS: Visit Provider Nurse Practitioner Family | DX: M47.812 Spondylosis without myelopathy or radiculopathy, cervical region (principal); M47.817 Spondylosis without myelopathy or radiculopathy, lumbosacral region | CPT/HCPCS: 99212 ==

== ENCOUNTER → 2020-10-31 10:06 | Outpatient (BNVA) | payer MEDICARE, MEDICAID, SELFPAY | PROVIDERS: PCP Internal Medicine; Visit Provider Internal Medicine Gastroenterology | CPT/HCPCS: Q3014 ==

== ENCOUNTER → 2021-02-02 14:40 | Outpatient (BNVA) | payer MEDICARE, MEDICAID, SELFPAY | PROVIDERS: PCP Internal Medicine; Visit Provider Anesthesiology | DX: M47.812 Spondylosis without myelopathy or radiculopathy, cervical region (principal); M47.817 Spondylosis without myelopathy or radiculopathy, lumbosacral region | CPT/HCPCS: 99212 ==

== ENCOUNTER 2021-04-10 11:20 | Day surgery (SDC) | payer OTHER, MEDICAID, SELFPAY ==
[2021-04-07 16:50] VITALS: BMI 35.4
--- NOTE | 2021-04-09 13:14 | HO.ANESPROP2 ---
Documented by User: Marquita Sanchez NP 04/09/21 13:48 HPI - Anesthesia Eval Consult details Narrative: 70yo M for Right L2-L3-L4-DR L5 Medial Branch Radiofrequency AB s/p Medial Branch Radiofreq with TIVA 05/2020 Xarelto for afib Cardiology states optimized (moderate risk), ok to hold anticoag PMFSH Active Problems Active Problems: All Active Problems (Updated 06/20/20 @ 10:26 by Stacey Ceballos MD) Anosmia (Acute) Dysgeusia (Acute) Tinnitus (Acute) Depression screen (Acute) Dysphagia (Acute) Benign essential tremor (Acute) Spondylosis of cervical joint without myelopathy (Acute) Spondylosis of lumbosacral spine without myelopathy (Acute) Past Medical History Medical History AAA (abdominal aortic aneurysm) Arrhythmia Benign essential tremor CAD (coronary artery disease) CHF (congestive heart failure) Chronic renal insufficiency CVA (cerebral vascular accident) Elevated cholesterol History of ischemic cardiomyopathy HTN (hypertension) IDDM (insulin dependent diabetes mellitus) Myocardial infarction On anticoagulant therapy Sleep apnea 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 Family History Family History Father Hx of congenital heart disease Mother Hx of heat stroke Family history of problems with anesthesia: No Surgical History Surgical History History of colonoscopy History of hernia repair History of PTCA History of surgery Hx of CABG Hx of endoscopy Hx of gastric bypass Hx of parathyroidectomy History of Problems with Anesthesia: No Social History Social History Are you a primary healthcare insurance sales agent to a significant other at home: No Do you presently have visiting nurse or 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 If so, by whom?: No Are you DNR?: No Advance Directives: No Advance Directives Information Provided: Yes Advance Directives on File: No Recently lost weight without trying: No Poor oral hygiene: No Meds Allergies Allergy/AdvReac Type Severity Reaction Status Date / Time grass pollen Allergy Mild unknown Verified 04/10/21 11:53 tree and shrub pollen Allergy Mild itchy Verified 04/10/21 11:53 eyes, sneeze, runny nose Home Medications Medication Instructions Recorded Confirmed Last Taken Type aspirin 81 mg tablet,delayed 81 mg PO DAILY 04/02/20 04/07/21 04/03/21 History release (Adult Aspirin Regimen) azelastine 137 mcg (0.1 %) nasal 1 spray INTRANASAL BID 04/02/20 10/07/20 04/10/21 08:00 History spray aerosol baclofen 20 mg tablet 20 mg PO TID 04/02/20 04/07/21 04/10/21 08:00 History bupropion HCl 300 mg 24 hr tablet, 300 mg PO QAM 04/02/20 04/07/21 04/10/21 08:00 History extended release calcium carbonate 600 mg calcium 600 mg PO BID 04/02/20 04/07/21 04/10/21 08:00 History (1,500 mg) tablet cholecalciferol (vitamin D3) 25 25 mcg PO DAILY 04/02/20 04/07/21 04/10/21 08:00 History mcg (1,000 unit) capsule docusate sodium 100 mg capsule 200 mg PO BID 04/02/20 04/07/21 04/10/21 08:00 History esomeprazole magnesium 20 mg 20 mg PO BID 04/02/20 04/07/21 04/10/21 08:00 History capsule,delayed release finasteride 5 mg tablet 5 mg PO DAILY 04/02/20 04/07/21 04/10/21 08:00 History fluticasone propionate 50 1 spray INTRANASAL DAILY 04/02/20 10/07/20 06/20/20 History mcg/actuation nasal spray,suspension hydroxyzine HCl 25 mg tablet 25 mg PO BID PRN 04/02/20 04/07/21 Unknown History lidocaine HCl 4 % topical cream 1 appl TOPICAL QID PRN 04/02/20 10/07/20 Unknown History (Aspercreme (lidocaine HCl)) lisinopril 5 mg tablet 5 mg PO BEDTIME 04/02/20 04/07/21 06/20/20 History rivaroxaban 20 mg tablet (Xarelto) 20 mg PO BEDTIME 04/02/20 04/07/21 04/06/21 History rosuvastatin 40 mg tablet 40 mg PO DAILY 04/02/20 04/07/21 04/10/21 08:00 History sertraline 25 mg tablet 75 mg PO BEDTIME 04/02/20 04/07/21 06/20/20 History tamsulosin 0.4 mg capsule 0.4 mg PO BEDTIME 04/02/20 04/07/21 Unknown History torsemide 20 mg tablet 20 mg PO DAILY 04/02/20 10/07/20 04/10/21 08:00 History amitriptyline 75 mg tablet 2 tab PO BEDTIME 05/05/20 04/07/21 Unknown History insulin glargine 100 unit/mL (3 30 unit SUBCUT BEDTIME 05/05/20 04/07/21 06/19/20 History mL) subcutaneous pen (Basaglar KwikPen U-100 Insulin) multivitamin-ferrous 1 tab PO QAM 05/05/20 10/07/20 04/10/21 08:00 History fumarate-folic acid 18 mg-400 mcg tablet (Cerovite Advanced Formula) clonazepam 0.5 mg tablet 0.5 mg PO BID 05/26/20 04/07/21 04/10/21 08:00 History ipratropium bromide 42 mcg (0.06 1 INTRANASAL BEDTIME 05/26/20 10/07/20 Unknown History %) nasal spray nitroglycerin 0.4 mg sublingual 0.4 mg SUBLINGUAL 05/26/20 10/07/20 Unknown History tablet pen needle, diabetic 32 gauge x #50 ea 05/26/20 10/07/20 Unknown History zolpidem 10 mg tablet 10 mg PO BEDTIME PRN 05/26/20 10/07/20 Unknown History dapagliflozin 10 mg tablet 10 mg PO QAM 10/31/20 04/07/21 04/10/21 08:00 History ([facility]) escitalopram oxalate 10 mg tablet 10 mg PO DAILY 10/31/20 04/07/21 04/10/21 08:00 History isosorbide mononitrate 30 mg 90 mg PO DAILY 10/31/20 04/07/21 04/10/21 08:00 History tablet,extended release 24 hr metoprolol succinate 25 mg 12.5 mg PO DAILY 10/31/20 04/07/21 04/10/21 08:00 History tablet,extended release 24 hr pilocarpine HCl 5 mg tablet 5 mg PO BID 10/31/20 04/07/21 04/10/21 08:00 History polyethylene glycol 3350 17 g PO 10/31/20 Unknown History gram/dose oral powder (ClearLax) primidone 250 mg tablet mg PO 10/31/20 04/10/21 08:00 History spironolactone 25 mg tablet 25 mg PO DAILY 10/31/20 04/07/21 04/10/21 08:00 History trazodone 50 mg tablet 50 mg PO BEDTIME 10/31/20 Unknown History cetirizine 10 mg tablet 1 tab PO DAILY 04/07/21 04/07/21 04/10/21 08:00 History dulaglutide 3 mg/0.5 mL mg SUBCUT QWEEK 04/07/21 04/07/21 Unknown History subcutaneous pen injector (Trulicity) mirtazapine 7.5 mg tablet 1 tab PO BEDTIME 04/07/21 04/07/21 Unknown History naloxegol 12.5 mg tablet (Movantik) 1 tab PO DAILY 04/07/21 04/07/21 Unknown History pilocarpine HCl 5 mg tablet 1 tab PO 04/07/21 Unknown History prazosin 5 mg capsule 1 cap PO BEDTIME 04/07/21 04/07/21 Unknown History Exam Exam Date and Time: April 09, 2021 1314 Height,Weight and Vital Signs: Height 5 ft 8 in Weight 105.687 kg Narrative Narrative: ECHO 03/2020 LVEF 60-65% Mildly reduced RV systolic function Mild low flow - low gradient aortic stenosis No other significant valvular abnormalities Assessment and Plan Assessment Anesthesia Assessment: Chart Reviewed Final Anesthetic Review Family History of Problems with Anesthesia: No History of Problems with Anesthesia: No Documented by User: Yamileth Montez MD 04/10/21 12:03 [facility] Past Medical History Medical History AAA (abdominal aortic aneurysm) Arrhythmia Benign essential tremor CAD (coronary artery disease) CHF (congestive heart failure) Chronic renal insufficiency CVA (cerebral vascular accident) Elevated cholesterol History of ischemic cardiomyopathy HTN (hypertension) IDDM (insulin dependent diabetes mellitus) Myocardial infarction On anticoagulant therapy Sleep apnea 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 Family History Family History Father Hx of congenital heart disease Mother Hx of heat stroke Surgical History Surgical History History of colonoscopy History of hernia repair History of PTCA History of surgery Hx of CABG Hx of endoscopy Hx of gastric bypass Hx of parathyroidectomy Social History Social History Are you a primary healthcare insurance sales agent to a significant other at home: No Do you presently have visiting nurse or 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 If so, by whom?: No Are you DNR?: No Advance Directives: No Advance Directives Information Provided: Yes Advance Directives on File: No Recently lost weight without trying: No Poor oral hygiene: No Meds Allergies Allergy/AdvReac Type Severity Reaction Status Date / Time grass pollen Allergy Mild unknown Verified 04/10/21 11:53 tree and shrub pollen Allergy Mild itchy Verified 04/10/21 11:53 eyes, sneeze, runny nose Home Medications Medication Instructions Recorded Confirmed Last Taken Type aspirin 81 mg tablet,delayed 81 mg PO DAILY 04/02/20 04/07/21 04/03/21 History release (Adult Aspirin Regimen) azelastine 137 mcg (0.1 %) nasal 1 spray INTRANASAL BID 04/02/20 10/07/20 04/10/21 08:00 History spray aerosol baclofen 20 mg tablet 20 mg PO TID 04/02/20 04/07/21 04/10/21 08:00 History bupropion HCl 300 mg 24 hr tablet, 300 mg PO QAM 04/02/20 04/07/21 04/10/21 08:00 History extended release calcium carbonate 600 mg calcium 600 mg PO BID 04/02/20 04/07/21 04/10/21 08:00 History (1,500 mg) tablet cholecalciferol (vitamin D3) 25 25 mcg PO DAILY 04/02/20 04/07/21 04/10/21 08:00 History mcg (1,000 unit) capsule docusate sodium 100 mg capsule 200 mg PO BID 04/02/20 04/07/21 04/10/21 08:00 History esomeprazole magnesium 20 mg 20 mg PO BID 04/02/20 04/07/21 04/10/21 08:00 History capsule,delayed release finasteride 5 mg tablet 5 mg PO DAILY 04/02/20 04/07/21 04/10/21 08:00 History fluticasone propionate 50 1 spray INTRANASAL DAILY 04/02/20 10/07/20 06/20/20 History mcg/actuation nasal spray,suspension hydroxyzine HCl 25 mg tablet 25 mg PO BID PRN 04/02/20 04/07/21 Unknown History lidocaine HCl 4 % topical cream 1 appl TOPICAL QID PRN 04/02/20 10/07/20 Unknown History (Aspercreme (lidocaine HCl)) lisinopril 5 mg tablet 5 mg PO BEDTIME 04/02/20 04/07/21 06/20/20 History rivaroxaban 20 mg tablet (Xarelto) 20 mg PO BEDTIME 04/02/20 04/07/21 04/06/21 History rosuvastatin 40 mg tablet 40 mg PO DAILY 04/02/20 04/07/21 04/10/21 08:00 History sertraline 25 mg tablet 75 mg PO BEDTIME 04/02/20 04/07/21 06/20/20 History tamsulosin 0.4 mg capsule 0.4 mg PO BEDTIME 04/02/20 04/07/21 Unknown History torsemide 20 mg tablet 20 mg PO DAILY 04/02/20 10/07/20 04/10/21 08:00 History amitriptyline 75 mg tablet 2 tab PO BEDTIME 05/05/20 04/07/21 Unknown History insulin glargine 100 unit/mL (3 30 unit SUBCUT BEDTIME 05/05/20 04/07/21 06/19/20 History mL) subcutaneous pen (Basaglar KwikPen U-100 Insulin) multivitamin-ferrous 1 tab PO QAM 05/05/20 10/07/20 04/10/21 08:00 History fumarate-folic acid 18 mg-400 mcg tablet (Cerovite Advanced Formula) clonazepam 0.5 mg tablet 0.5 mg PO BID 05/26/20 04/07/21 04/10/21 08:00 History ipratropium bromide 42 mcg (0.06 1 INTRANASAL BEDTIME 05/26/20 10/07/20 Unknown History %) nasal spray nitroglycerin 0.4 mg sublingual 0.4 mg SUBLINGUAL 05/26/20 10/07/20 Unknown History tablet pen needle, diabetic 32 gauge x #50 ea 05/26/20 10/07/20 Unknown History zolpidem 10 mg tablet 10 mg PO BEDTIME PRN 05/26/20 10/07/20 Unknown History dapagliflozin 10 mg tablet 10 mg PO QAM 10/31/20 04/07/21 04/10/21 08:00 History ([facility]) escitalopram oxalate 10 mg tablet 10 mg PO DAILY 10/31/20 04/07/21 04/10/21 08:00 History isosorbide mononitrate 30 mg 90 mg PO DAILY 10/31/20 04/07/21 04/10/21 08:00 History tablet,extended release 24 hr metoprolol succinate 25 mg 12.5 mg PO DAILY 10/31/20 04/07/21 04/10/21 08:00 History tablet,extended release 24 hr pilocarpine HCl 5 mg tablet 5 mg PO BID 10/31/20 04/07/21 04/10/21 08:00 History polyethylene glycol 3350 17 g PO 10/31/20 Unknown History gram/dose oral powder (ClearLax) primidone 250 mg tablet mg PO 10/31/20 04/10/21 08:00 History spironolactone 25 mg tablet 25 mg PO DAILY 10/31/20 04/07/21 04/10/21 08:00 History trazodone 50 mg tablet 50 mg PO BEDTIME 10/31/20 Unknown History cetirizine 10 mg tablet 1 tab PO DAILY 04/07/21 04/07/21 04/10/21 08:00 History dulaglutide 3 mg/0.5 mL mg SUBCUT QWEEK 04/07/21 04/07/21 Unknown History subcutaneous pen injector (Trulicity) mirtazapine 7.5 mg tablet 1 tab PO BEDTIME 04/07/21 04/07/21 Unknown History naloxegol 12.5 mg tablet (Movantik) 1 tab PO DAILY 04/07/21 04/07/21 Unknown History pilocarpine HCl 5 mg tablet 1 tab PO 04/07/21 Unknown History prazosin 5 mg capsule 1 cap PO BEDTIME 04/07/21 04/07/21 Unknown History Exam Airway Mallampati Class: II TM Dist: >3cm Neck ROM: Full Assessment and Plan Assessment Anesthesia Assessment: Anesthesia Plan Discussed Final Anesthetic Review NPO: Yes ASA Class: II Final Preanesthetic Review: No Changes in Pt Med Stat, Meds/Allgs Chart Reviewed, Consent Obtained/Reviewed and Anes Risks/Benef Reviewed Patient Risk: Intermediate Procedure Risk: Low Anesthetic Plan Anesthetic Plan: GA Disposition: Standard PACU
--- NOTE | ~2021-04-10 | FL_ITS ---
EXAMINATION: XR FLUOROSCOPY WITH IMAGES CLINICAL INFORMATION: L3, L4 and L5 medial branch RFA. COMPARISON: None. TECHNIQUE: Fluoroscopy performed by Dr. Chino Gates. Fluoroscopy time: 1.2 minutes DAP: 17 Gy.cm2 Images: 2 FINDINGS: Images demonstrate lead placement adjacent to the bilateral lateral L3, L4 and L5 vertebral bodies. There is an aortobiiliac stent graft. FL/FL guidance in OR IMPRESSION: Fluoroscopic guidance for bilateral lumbar medial branch RFA.
--- NOTE | 2021-04-10 07:36 | MHC.SHP ---
Pre-Procedural Eval Section A Date of Service: 04/10/21 The patient is an INPATIENT: No Changes since office visit: Yes Patient answered all questions The History & Physical has been completed within 30 days and I have reviewed it.: No Section B Chief Complaint: spondylosis without myelopathy Details of Present Illness: as above Relevant Family History (Specify if Yes): No Relevant Social History: None Present Medications: see Short Stay Collaborative assessment Medical History: No relevant PMH History of Previous Operations: No relevant previous surgery Allergies: Allergies Allergy/AdvReac Type Severity Reaction Status Date / Time grass pollen Allergy Mild unknown Verified 02/02/21 15:09 tree and shrub pollen Allergy Mild itchy Verified 02/02/21 15:09 eyes, sneeze, runny nose Review of Systems Sugical H&P ROS: Negative: Constitution, Cardiovascular, Respiratory, Neurological, Psychiatric, Hem-Onc, Allergic/Immunologic, Gastrointestinal, Genitourinary, Musculoskeletal, Integumentary, Endocrine and Eyes/Ears/Nose/Throat Exam Surgical H&P Exam: Normal: HEENT, Normal: Heart, Normal: Lungs, Normal: Extremities, Normal: Abdomen, Normal: Skin and Normal: Neurological Plan Diagnosis/Plan: Unchanged I have reviewed the history and physical and performed a pertinent physical examination on my patient. No changes have occurred unless specified.
--- NOTE | 2021-04-10 07:37 | W.PM.OPN ---
Operative Note Operative Note Date of Service: 05/09/20 Narrative: Joe is very pleasant pleasant 70 years old gentleman who came to OR for the medial branch radiofrequency ablation-L3 L4 dorsal ramus L5 o bilateral the attempt to treat lumbar spondylosis related pain After obtaining informed consent patient was brought to the operating room, HE was positioned prone on operating table, [place] [employer] monitors were applied and patient was deeply sedated. Time-out was performed delineating correct site, side, the nature of the procedure, patient's allergy, preoperative antibiotic if needed. All operating room staff was participating in OR time-out procedure. He received preoperatively clindamycin 900 mg IV approximately 20 minutes before the procedure. Patient's entire back was prepped with ChloraPrep twice and draped with sterile utility drapes. Sterilely draped C-arm was brought over operating field and square picture of L4 and L5 vertebra as well as sacral bone were demonstrated on the screen. The point of interests were delineated as connection of superior articular process of L3, L4, L5 vertebrae bilaterally with corresponding bilateral transverse processes, as well as connection of the superior articular process of S1 bilateral with bilateral sacral alae. The projection of the point of interest to the skin was injected with small amount of lidocaine 2%. After that 18 gauge radiofrequency cannulas were sequentially driven to the point of interest in tunnel vision fashion 1st on the right and then on the left. on the left side location of the medial branch of L2 vertebra was very hard to determine because of significant spondylosis of the lumbar spine in combination of the abdominal aortic aneurysm stents in iliac artery stents. Eventually the attempts to reach does ramus of L2 vertebra were abandoned and on the left side procedure was limited to L3-L4 and dorsal ramus L5 medial branches. When needle gently contacted the bone sensory and motor stimulation was performed. On sensory stimulation patient reported pain in the area of the stimulation, on motor stimulation patient denied any pulsating movement in the lower extremity. After that the needles was injected with small amount of mixture of bupivacaine 0.5% and lidocaine 2% with addition of trace amount of Kenalog. Total dose of Kenalog was less than 20 mg. Energy application was performed with 89 degree centigrade for 90 seconds on each side. After 1st application of energy the needles were rotated 180? and application of energy was repeated.. Upon completion of the energy application cannulas were removed sterile dressing was applied. Patient tolerated procedure well he was taken outside of the operating room to recovery room where he recovered uneventfully.
[2021-04-10 12:00] VITALS: BP 127/62; PULSE 65; RESP 16; TEMP 36.8; O2SAT 96
[2021-04-10 12:05] LABS: Glucose, Whole Blood 98 mg/dL (60-115)
[2021-04-10] MEDS: Lactated Ringers 1,000 ML 50 ML IVCONT (12:07)
[2021-04-10 15:20] VITALS: BP 134/81; PULSE 65; RESP 16; TEMP 36.8; O2SAT 97
--- NOTE | 2021-04-10 15:22 | PM.OP ---
Brief Operative Note Date of Service: 04/10/21 Pre-op diagnosis: Spondylosis lumbar spine Post-op diagnosis: same Procedure: radiofrequency ablation of bilateral L3, L4- dorsal ramus L5 medial branches as well as right-sided L2 medial branch. Implants: None per Surgeon: Chino Gates MD Anesthesia: MAC Was an Cook Helper Preserves used for this Procedure?: No Estimated blood loss (mL): 6 Pathology: none sent Condition: stable Disposition: PACU
[2021-04-10 15:35] VITALS: BP 128/66; PULSE 65; RESP 16; TEMP 36.8; O2SAT 97
== END 2021-04-10 15:58 | disposition home or self-care (01) ==
PROVIDERS: PCP Internal Medicine; Visit Provider Anesthesiology
PROC: (CPT 64635; principal; 2021-04-10 13:10)
DX: M47.817 Spondylosis without myelopathy or radiculopathy, lumbosacral region (principal); M47.812 Spondylosis without myelopathy or radiculopathy, cervical region; M54.50 Low back pain, unspecified; I13.0 Hypertensive heart and chronic kidney disease with heart failure and stage 1 through stage 4 chronic kidney disease, or unspecified chronic kidney disease; I50.32 Chronic diastolic (congestive) heart failure; N18.30 Chronic kidney disease, stage 3 unspecified; E11.22 Type 2 diabetes mellitus with diabetic chronic kidney disease; Z79.4 Long term (current) use of insulin; I25.10 Atherosclerotic heart disease of native coronary artery without angina pectoris; Z95.1 Presence of aortocoronary bypass graft; I25.2 Old myocardial infarction; I71.4 Abdominal aortic aneurysm, without rupture; I48.91 Unspecified atrial fibrillation; Z79.01 Long term (current) use of anticoagulants; G25.0 Essential tremor; G47.33 Obstructive sleep apnea (adult) (pediatric); Z86.73 Personal history of transient ischemic attack (TIA), and cerebral infarction without residual deficits; Z99.89 Dependence on other enabling machines and devices; Z79.899 Other long term (current) drug therapy; Z98.84 Bariatric surgery status; Z87.891 Personal history of nicotine dependence
CPT/HCPCS: 64635; 64636 ×2; 82947; J2250; J3010; J3300

== ENCOUNTER 2021-04-27 07:04 | Day surgery (SDC) | payer MEDICARE, MEDICAID, SELFPAY ==
[2021-04-23 11:20] VITALS: BMI 34.2
--- NOTE | 2021-04-23 12:50 | MHC.SHP ---
Pre-Procedural Eval Section A Date of Service: 04/23/21 The patient is an INPATIENT: No Changes since office visit: No Cold of Flu in the past 2 weeks, No New Medical Problems, No Changes in Medication and No Patient answered all questions The History & Physical has been completed within 30 days and I have reviewed it.: Yes Section B Chief Complaint: cataract Allergies: Allergies Allergy/AdvReac Type Severity Reaction Status Date / Time grass pollen Allergy Mild unknown Verified 04/20/21 12:35 tree and shrub pollen Allergy Mild itchy Verified 04/20/21 12:35 eyes, sneeze, runny nose Plan Diagnosis/Plan: Unchanged I have reviewed the history and physical and performed a pertinent physical examination on my patient. No changes have occurred unless specified.
[2021-04-27 07:45] VITALS: BP 108/54; PULSE 55; RESP 16; TEMP 36.3; O2SAT 96
[2021-04-27 07:51] LABS: Glucose, Whole Blood 112 mg/dL (60-115)
--- NOTE | 2021-04-27 07:58 | P.CONAN_ITS ---
HPI - Anesthesia Eval Consult details Narrative: Right eye cataract PMFSH Active Problems Active Problems: All Active Problems (Updated 04/23/21 @ 11:29 by Nusrat Walls RN) Anosmia (Acute) Dysgeusia (Acute) Tinnitus (Acute) Depression screen (Acute) Dysphagia (Acute) Benign essential tremor (Acute) Spondylosis of cervical joint without myelopathy (Acute) Spondylosis of lumbosacral spine without myelopathy (Acute) Past Medical History Medical History (Updated 04/23/21 @ 11:29 by Nusrat Walls RN) AAA (abdominal aortic aneurysm) Arrhythmia Benign essential tremor CAD (coronary artery disease) CHF (congestive heart failure) Chronic renal insufficiency CVA (cerebral vascular accident) Elevated cholesterol History of ischemic cardiomyopathy HTN (hypertension) IDDM (insulin dependent diabetes mellitus) Mood disorder Myocardial infarction On anticoagulant therapy On beta ruddy at home PVD (peripheral vascular disease) Sleep apnea 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 Family History Family History Father Hx of congenital heart disease Mother Hx of heat stroke Family history of problems with anesthesia: No Surgical History Surgical History History of colonoscopy History of hernia repair History of PTCA History of surgery Hx of CABG Hx of endoscopy Hx of gastric bypass Hx of parathyroidectomy History of Problems with Anesthesia: No Social History Social History Are you a primary health care facility administrator to a significant other at home: No Alcohol intake: never Patient Tobacco Use Status: Former Tobacco user Quit Date: 1989 Tobacco use type: Cigarette Second Hand Smoke Exposure: No Use of substances other than those prescribed or required for medical reasons: No Have you been hit, kicked, punched, or otherwise hurt by someone within the past year? If so, by whom?: No Are you DNR?: No Advance Directives: No Advance Directives Information Provided: No Advance Directives on File: No Meds Allergies Allergy/AdvReac Type Severity Reaction Status Date / Time grass pollen Allergy Mild unknown Verified 04/20/21 12:35 tree and shrub pollen Allergy Mild itchy Verified 04/20/21 12:35 eyes, sneeze, runny nose Active Medications: Current Medications Lactated Ringer's (Lr) 500 mls @ 50 mls/hr IVCONT .Q10H JADIEL Povidone Iodine (Povidone Iodine 5 % Ophth Soln 30 Ml Bottle) 1 appl EYE-RIGHT PREOP PRN PRN Reason: Pre-Op Surgical Implant Prophy Home Medications Medication Instructions Recorded Confirmed Last Taken Type aspirin 81 mg tablet,delayed 81 mg PO DAILY 04/02/20 04/23/21 04/03/21 History release (Adult Aspirin Regimen) azelastine 137 mcg (0.1 %) nasal 1 spray INTRANASAL BID 04/02/20 04/23/21 04/10/21 08:00 History spray aerosol baclofen 20 mg tablet 20 mg PO TID 04/02/20 04/23/21 04/10/21 08:00 History bupropion HCl 300 mg 24 hr tablet, 300 mg PO QAM 04/02/20 04/23/21 04/10/21 08:00 History extended release calcium carbonate 600 mg calcium 600 mg PO BID 04/02/20 04/23/21 04/10/21 08:00 History (1,500 mg) tablet cholecalciferol (vitamin D3) 25 25 mcg PO DAILY 04/02/20 04/23/21 04/10/21 08:00 History mcg (1,000 unit) capsule docusate sodium 100 mg capsule 200 mg PO BID 04/02/20 04/23/21 04/10/21 08:00 History esomeprazole magnesium 20 mg 20 mg PO BID 04/02/20 04/23/21 04/10/21 08:00 History capsule,delayed release finasteride 5 mg tablet 5 mg PO DAILY 04/02/20 04/23/21 04/10/21 08:00 History fluticasone propionate 50 1 spray INTRANASAL DAILY 04/02/20 04/23/21 06/20/20 History mcg/actuation nasal spray,suspension hydroxyzine HCl 25 mg tablet 25 mg PO BID PRN 04/02/20 04/23/21 Unknown History lidocaine HCl 4 % topical cream 1 appl TOPICAL QID PRN 04/02/20 04/23/21 Unknown History (Aspercreme (lidocaine HCl)) lisinopril 5 mg tablet 5 mg PO BEDTIME 04/02/20 04/23/21 06/20/20 History rivaroxaban 20 mg tablet (Xarelto) 20 mg PO BEDTIME 04/02/20 04/23/21 04/06/21 History rosuvastatin 40 mg tablet 40 mg PO DAILY 04/02/20 04/23/21 04/10/21 08:00 History sertraline 25 mg tablet 75 mg PO BEDTIME 04/02/20 04/23/21 06/20/20 History tamsulosin 0.4 mg capsule 0.4 mg PO BEDTIME 04/02/20 04/23/21 Unknown History torsemide 20 mg tablet 20 mg PO DAILY 04/02/20 04/23/21 04/10/21 08:00 History amitriptyline 75 mg tablet 2 tab PO BEDTIME 05/05/20 04/23/21 Unknown History insulin glargine 100 unit/mL (3 15 unit SUBCUT BEDTIME 05/05/20 04/23/21 06/19/20 History mL) subcutaneous pen (Joleen Davis U-100 Insulin) multivitamin-ferrous 1 tab PO QAM 05/05/20 04/23/21 04/10/21 08:00 History fumarate-folic acid 18 mg-400 mcg tablet (Cerovite Advanced Formula) clonazepam 0.5 mg tablet 0.5 mg PO BID 05/26/20 04/23/21 04/10/21 08:00 History ipratropium bromide 42 mcg (0.06 1 INTRANASAL BEDTIME 05/26/20 10/07/20 Unknown History %) nasal spray nitroglycerin 0.4 mg sublingual 0.4 mg SUBLINGUAL 05/26/20 10/07/20 Unknown History tablet pen needle, diabetic 32 gauge x #50 ea 05/26/20 10/07/20 Unknown History zolpidem 10 mg tablet 10 mg PO BEDTIME PRN 05/26/20 04/23/21 Unknown History dapagliflozin 10 mg tablet 10 mg PO QAM 10/31/20 04/23/21 04/10/21 08:00 History ([facility]) escitalopram oxalate 10 mg tablet 10 mg PO DAILY 10/31/20 04/23/21 04/10/21 08:00 History metoprolol succinate 25 mg 12.5 mg PO DAILY 10/31/20 04/23/21 04/10/21 08:00 History tablet,extended release 24 hr pilocarpine HCl 5 mg tablet 5 mg PO BID 10/31/20 04/23/21 04/10/21 08:00 History primidone 250 mg tablet mg PO 10/31/20 04/10/21 08:00 History spironolactone 25 mg tablet 25 mg PO DAILY 10/31/20 04/23/21 04/10/21 08:00 History trazodone 50 mg tablet 50 mg PO BEDTIME 10/31/20 04/23/21 Unknown History cetirizine 10 mg tablet 1 tab PO DAILY 04/07/21 04/23/21 04/10/21 08:00 History dulaglutide 3 mg/0.5 mL 3 mg SUBCUT QWEEK 04/07/21 04/23/21 Unknown History subcutaneous pen injector (Trulicity) mirtazapine 7.5 mg tablet 1 tab PO BEDTIME 04/07/21 04/23/21 Unknown History prazosin 5 mg capsule 1 cap PO BEDTIME 04/07/21 04/23/21 Unknown History isosorbide mononitrate 60 mg 1.5 tab PO QAM 04/20/21 04/23/21 Unknown History tablet,extended release 24 hr melatonin 5 mg tablet 2 tab PO BEDTIME 04/20/21 04/23/21 Unknown History sertraline 50 mg tablet 1.5 tab PO BEDTIME 04/20/21 04/23/21 Unknown History Exam Exam Date and Time: April 27, 2021 075 Height,Weight and Vital Signs: Height 5 ft 8 in Weight 102.058 kg Last Vital Signs Temp 97.3 F 04/27/21 07:45 Pulse 55 04/27/21 07:45 Resp 16 04/27/21 07:45 BP 108/54 L 04/27/21 07:45 Pulse Ox 96 04/27/21 07:45 Pertinent Lab Results Pertinent Lab Results: Laboratory Tests 04/27/21 07:47 POC Glucose 112 Airway Mallampati Class: II TM Dist: >3cm Neck ROM: Full Loose/Missing/Broken Teeth: No Heart: rrr+[id number] Lungs: cta b/l Assessment and Plan Assessment Anesthesia Assessment: Anesthesia Plan Discussed and Chart Reviewed Final Anesthetic Review Family History of Problems with Anesthesia: No History of Problems with Anesthesia: No NPO: Yes ASA Class: III Final Preanesthetic Review: No Changes in Pt Med Stat, Meds/Allgs Chart Reviewed, Consent Obtained/Reviewed and Anes Risks/Benef Reviewed Patient Risk: Intermediate Procedure Risk: Low Assessment/Block/Sedation in SS: Assess/Block/Sedation-SS Anesthetic Plan Anesthetic Plan: MAC: and Agree w/ Assess. and Plan Disposition: Standard PACU
[2021-04-27] MEDS: Tetracaine HCl/PF 0.5% Oph Sol 4 ML DROPS 1 DROP EYE-RIGHT (08:01)
[2021-04-27] MEDS: Lactated Ringers 500 ML 50 ML IVCONT (08:01)
[2021-04-27] MEDS: Tropicamide 1 % Ophth Sol 3 ML BTL 1 DROP EYE-RIGHT ×3 (08:03→08:08)
[2021-04-27] MEDS: Phenylephrine HCL 2.5% Oph SoL 2 ML BOTTLE 1 DROP EYE-RIGHT ×3 (08:05→08:10)
--- NOTE | 2021-04-27 09:03 | HO.PNOPHT ---
Ophthalmology Procedure Procedure Date of Service: 04/27/21 Ophthalmology Viscoelastic: Healon Duet Dual Pack Pro Ophthalmology Lenses: TECNIS [id number] (20.5) Procedure Notes: PREOPERATIVE DIAGNOSIS: Decreased visual acuity right eye secondary to cataract POSTOPERATIVE DIAGNOSIS: Same PROCEDURE: Right cataract extraction with intraocular lens insertion SURGEON: Lenny Denson M.D. ANESTHESIA: Topical/MAC ESTIMATED BLOOD LOSS: None COMPLICATIONS: None After obtaining informed consent, the patient was brought to the operating room suite and placed in the supine position. After adequate sedation per anesthesia, topical drops of Tetracaine were given to the right eye. The eye was then prepped and draped in the usual sterile fashion. The operating room microscope was then positioned over the operative eye and a lid speculum placed. A paracentesis was created. Viscoelastic was then instilled into the anterior chamber. A three plane incision was then created temporally, utilizing a 2.85 mm keratome. Capsulotomy forceps were then utilized to create a circular tear capsulotomy. Hydrodissection and hydrodelineation were carried out until adequate mobilization of the nucleus occurred. Phacoemulsification was then utilized to remove the dense central nucleus followed by removal of the cortical material utilizing the automated aspiration irrigation unit. Viscoelastic was instilled into the posterior capsular bag followed by placement of a posterior chamber intraocular lens without difficulty. The residual Viscoelastic was then removed utilizing the automated IA machine. The wound was checked and found to be watertight. The patient tolerated the procedure well and the lid speculum was removed. Intracameral injection of Vigamox 0.1 mL followed by a subtenon injection of Kenalog-40 0.2 mL were administered. The patient will be seen in the a.m.
[2021-04-27 09:37] VITALS: BP 118/62; PULSE 56; RESP 18; TEMP 36.1; O2SAT 97
== END 2021-04-27 09:40 | disposition home or self-care (01) ==
PROVIDERS: PCP Internal Medicine; Visit Provider Ophthalmology
PROC: (CPT 66985; principal; 2021-04-27 08:40)
DX: H25.11 Age-related nuclear cataract, right eye (principal); H52.4 Presbyopia; I11.0 Hypertensive heart disease with heart failure; I50.9 Heart failure, unspecified; I10 Essential (primary) hypertension; E11.9 Type 2 diabetes mellitus without complications; I48.91 Unspecified atrial fibrillation; Z79.01 Long term (current) use of anticoagulants; Z79.4 Long term (current) use of insulin; Z79.899 Other long term (current) drug therapy; G47.33 Obstructive sleep apnea (adult) (pediatric); Z98.84 Bariatric surgery status
CPT/HCPCS: 66984; 82947; J2250; J3010; J3300; V2632

== ENCOUNTER → 2021-05-06 13:01 | Outpatient (BNVA) | payer MEDICARE, MEDICAID, SELFPAY | PROVIDERS: PCP Internal Medicine; Visit Provider Anesthesiology | DX: M47.812 Spondylosis without myelopathy or radiculopathy, cervical region (principal); M47.817 Spondylosis without myelopathy or radiculopathy, lumbosacral region; M49.86 Spondylopathy in diseases classified elsewhere, lumbar region; M54.40 Lumbago with sciatica, unspecified side; M51.36 Other intervertebral disc degeneration, lumbar region | CPT/HCPCS: 99212 ==

== ENCOUNTER 2021-05-11 08:12 | Day surgery (SDC) | payer MEDICARE, MEDICAID, SELFPAY ==
[2021-04-23 11:30] VITALS: BMI 34.2
--- NOTE | 2021-05-08 09:14 | P.CONAN_ITS ---
Documented by User: Marquita Sanchez NP 05/08/21 09:16 HPI - Anesthesia Eval Consult details Narrative: 71yo M for Left Cataract Extraction IOL Insertion PCP cleared Right eye 04/27/21 with MAC: Fent 50, Midaz 1 Xarelto for afib PMFSH Active Problems Active Problems: All Active Problems (Updated 05/06/21 @ 13:28 by Chino Gates MD) Disc degeneration, lumbar (Acute) Lumbago of lumbar region with sciatica (Acute) 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, lumbar region (Acute) Anosmia (Acute) Dysgeusia (Acute) Tinnitus (Acute) Depression screen (Acute) Dysphagia (Acute) Benign essential tremor (Acute) Spondylosis of cervical joint without myelopathy (Acute) Spondylosis of lumbosacral spine without myelopathy (Acute) Past Medical History Medical History (Updated 05/06/21 @ 13:28 by Chino Gates MD) AAA (abdominal aortic aneurysm) Arrhythmia Benign essential tremor CAD (coronary artery disease) CHF (congestive heart failure) Chronic renal insufficiency CVA (cerebral vascular accident) Disc degeneration, lumbar Elevated cholesterol History of ischemic cardiomyopathy HTN (hypertension) IDDM (insulin dependent diabetes mellitus) Lumbago of lumbar region with sciatica Mood disorder Myocardial infarction On anticoagulant therapy On beta ruddy at home PVD (peripheral vascular disease) Sleep apnea 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, 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 Family History Family History Father Hx of congenital heart disease Mother Hx of heat stroke Family history of problems with anesthesia: No Surgical History Surgical History History of colonoscopy History of hernia repair History of PTCA History of surgery Hx of CABG Hx of endoscopy Hx of gastric bypass Hx of parathyroidectomy History of Problems with Anesthesia: No Social History Social History Are you a primary home care and home health aides teacher to a significant other at home: No Alcohol intake: never Patient Tobacco Use Status: Former Tobacco user Quit Date: Tobacco use type: Cigarette Second Hand Smoke Exposure: No Use of substances other than those prescribed or required for medical reasons: No Have you been hit, kicked, punched, or otherwise hurt by someone within the past year? If so, by whom?: No Are you DNR?: No Advance Directives: No Advance Directives Information Provided: Yes Advance Directives on File: No Recently lost weight without trying: No Meds Allergies Allergy/AdvReac Type Severity Reaction Status Date / Time grass pollen Allergy Mild unknown Verified 05/06/21 13:09 tree and shrub pollen Allergy Mild itchy Verified 05/06/21 13:09 eyes, sneeze, runny nose Home Medications Medication Instructions Recorded Confirmed Last Taken Type aspirin 81 mg tablet,delayed 81 mg PO DAILY 04/02/20 04/23/21 04/03/21 History release (Adult Aspirin Regimen) azelastine 137 mcg (0.1 %) nasal 1 spray INTRANASAL BID 04/02/20 04/23/21 04/10/21 08:00 History spray aerosol baclofen 20 mg tablet 20 mg PO TID 04/02/20 04/23/21 04/27/21 History bupropion HCl 300 mg 24 hr tablet, 300 mg PO QAM 04/02/20 04/23/21 04/27/21 History extended release calcium carbonate 600 mg calcium 600 mg PO BID 04/02/20 04/23/21 04/10/21 08:00 History (1,500 mg) tablet cholecalciferol (vitamin D3) 25 25 mcg PO DAILY 04/02/20 04/23/21 04/10/21 08:00 History mcg (1,000 unit) capsule docusate sodium 100 mg capsule 200 mg PO BID 04/02/20 04/23/21 04/10/21 08:00 History esomeprazole magnesium 20 mg 20 mg PO BID 04/02/20 04/23/21 04/10/21 08:00 History capsule,delayed release finasteride 5 mg tablet 5 mg PO DAILY 04/02/20 04/23/21 04/10/21 08:00 History fluticasone propionate 50 1 spray INTRANASAL DAILY 04/02/20 04/23/21 06/20/20 History mcg/actuation nasal spray,suspension hydroxyzine HCl 25 mg tablet 25 mg PO BID PRN 04/02/20 04/23/21 Unknown History lidocaine HCl 4 % topical cream 1 appl TOPICAL QID PRN 04/02/20 04/23/21 Unknown History (Aspercreme (lidocaine HCl)) lisinopril 5 mg tablet 5 mg PO BEDTIME 04/02/20 04/23/21 06/20/20 History rivaroxaban 20 mg tablet (Xarelto) 20 mg PO BEDTIME 04/02/20 04/23/21 04/26/21 History rosuvastatin 40 mg tablet 40 mg PO DAILY 04/02/20 04/23/21 04/10/21 08:00 History sertraline 25 mg tablet 75 mg PO BEDTIME 04/02/20 04/23/21 06/20/20 History tamsulosin 0.4 mg capsule 0.4 mg PO BEDTIME 04/02/20 04/23/21 Unknown History torsemide 20 mg tablet 20 mg PO DAILY 04/02/20 04/23/21 04/10/21 08:00 History amitriptyline 75 mg tablet 2 tab PO BEDTIME 05/05/20 04/23/21 Unknown History insulin glargine 100 unit/mL (3 15 unit SUBCUT BEDTIME 05/05/20 04/23/21 06/19/20 History mL) subcutaneous pen (Basaglar KwikPen U-100 Insulin) multivitamin-ferrous 1 tab PO QAM 05/05/20 04/23/21 04/10/21 08:00 History fumarate-folic acid 18 mg-400 mcg tablet (Cerovite Advanced Formula) clonazepam 0.5 mg tablet 0.5 mg PO BID 05/26/20 04/23/21 04/27/21 History ipratropium bromide 42 mcg (0.06 1 INTRANASAL BEDTIME 05/26/20 10/07/20 Unknown History %) nasal spray nitroglycerin 0.4 mg sublingual 0.4 mg SUBLINGUAL 05/26/20 10/07/20 Unknown History tablet pen needle, diabetic 32 gauge x #50 ea 05/26/20 10/07/20 Unknown History zolpidem 10 mg tablet 10 mg PO BEDTIME PRN 05/26/20 04/23/21 Unknown History dapagliflozin 10 mg tablet 10 mg PO QAM 10/31/20 04/23/21 04/10/21 08:00 History (Farxiga) escitalopram oxalate 10 mg tablet 10 mg PO DAILY 10/31/20 04/23/21 04/10/21 08:00 History metoprolol succinate 25 mg 12.5 mg PO DAILY 10/31/20 04/23/21 04/27/21 History tablet,extended release 24 hr pilocarpine HCl 5 mg tablet 5 mg PO BID 10/31/20 04/23/21 04/10/21 08:00 History primidone 250 mg tablet mg PO 10/31/20 04/10/21 08:00 History spironolactone 25 mg tablet 25 mg PO DAILY 10/31/20 04/23/21 04/27/21 History trazodone 50 mg tablet 50 mg PO BEDTIME 10/31/20 04/23/21 Unknown History cetirizine 10 mg tablet 1 tab PO DAILY 04/07/21 04/23/21 04/10/21 08:00 History dulaglutide 3 mg/0.5 mL 3 mg SUBCUT QWEEK 04/07/21 04/23/21 Unknown History subcutaneous pen injector (Trulicity) mirtazapine 7.5 mg tablet 1 tab PO BEDTIME 04/07/21 04/23/21 Unknown History prazosin 5 mg capsule 1 cap PO BEDTIME 04/07/21 04/23/21 Unknown History isosorbide mononitrate 60 mg 1.5 tab PO QAM 04/20/21 04/23/21 04/27/21 History tablet,extended release 24 hr melatonin 5 mg tablet 2 tab PO BEDTIME 04/20/21 04/23/21 Unknown History sertraline 50 mg tablet 1.5 tab PO BEDTIME 04/20/21 04/23/21 Unknown History Exam Exam Date and Time: May 08, [id number] Height,Weight and Vital Signs: Height 5 ft 8 in Weight 102.058 kg Assessment and Plan Assessment Anesthesia Assessment: Chart Reviewed Final Anesthetic Review Family History of Problems with Anesthesia: No History of Problems with Anesthesia: No Documented by User: Huang Nice MD 05/11/21 08:35 [facility] Past Medical History Medical History (Updated 05/06/21 @ 13:28 by Chino Gates MD) AAA (abdominal aortic aneurysm) Arrhythmia Benign essential tremor CAD (coronary artery disease) CHF (congestive heart failure) Chronic renal insufficiency CVA (cerebral vascular accident) Disc degeneration, lumbar Elevated cholesterol History of ischemic cardiomyopathy HTN (hypertension) IDDM (insulin dependent diabetes mellitus) Lumbago of lumbar region with sciatica Mood disorder Myocardial infarction On anticoagulant therapy On beta ruddy at home PVD (peripheral vascular disease) Sleep apnea 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, 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 Family History Family History Father Hx of congenital heart disease Mother Hx of heat stroke Surgical History Surgical History History of colonoscopy History of hernia repair History of PTCA History of surgery Hx of CABG Hx of endoscopy Hx of gastric bypass Hx of parathyroidectomy Social History Social History Are you a primary home care and home health aides teacher to a significant other at home: No Alcohol intake: never Patient Tobacco Use Status: Former Tobacco user Quit Date: Tobacco use type: Cigarette Second Hand Smoke Exposure: No Use of substances other than those prescribed or required for medical reasons: No Have you been hit, kicked, punched, or otherwise hurt by someone within the past year? If so, by whom?: No Are you DNR?: No Advance Directives: No Advance Directives Information Provided: Yes Advance Directives on File: No Recently lost weight without trying: No Meds Allergies Allergy/AdvReac Type Severity Reaction Status Date / Time grass pollen Allergy Mild unknown Verified 05/06/21 13:09 tree and shrub pollen Allergy Mild itchy Verified 05/06/21 13:09 eyes, sneeze, runny nose Home Medications Medication Instructions Recorded Confirmed Last Taken Type aspirin 81 mg tablet,delayed 81 mg PO DAILY 04/02/20 04/23/21 04/03/21 History release (Adult Aspirin Regimen) azelastine 137 mcg (0.1 %) nasal 1 spray INTRANASAL BID 04/02/20 04/23/21 04/10/21 08:00 History spray aerosol baclofen 20 mg tablet 20 mg PO TID 04/02/20 04/23/21 04/27/21 History bupropion HCl 300 mg 24 hr tablet, 300 mg PO QAM 04/02/20 04/23/21 04/27/21 History extended release calcium carbonate 600 mg calcium 600 mg PO BID 04/02/20 04/23/21 04/10/21 08:00 History (1,500 mg) tablet cholecalciferol (vitamin D3) 25 25 mcg PO DAILY 04/02/20 04/23/21 04/10/21 08:00 History mcg (1,000 unit) capsule docusate sodium 100 mg capsule 200 mg PO BID 04/02/20 04/23/21 04/10/21 08:00 History esomeprazole magnesium 20 mg 20 mg PO BID 04/02/20 04/23/21 04/10/21 08:00 History capsule,delayed release finasteride 5 mg tablet 5 mg PO DAILY 04/02/20 04/23/21 04/10/21 08:00 History fluticasone propionate 50 1 spray INTRANASAL DAILY 04/02/20 04/23/21 06/20/20 History mcg/actuation nasal spray,suspension hydroxyzine HCl 25 mg tablet 25 mg PO BID PRN 04/02/20 04/23/21 Unknown History lidocaine HCl 4 % topical cream 1 appl TOPICAL QID PRN 04/02/20 04/23/21 Unknown History (Aspercreme (lidocaine HCl)) lisinopril 5 mg tablet 5 mg PO BEDTIME 04/02/20 04/23/21 06/20/20 History rivaroxaban 20 mg tablet (Xarelto) 20 mg PO BEDTIME 04/02/20 04/23/21 04/26/21 History rosuvastatin 40 mg tablet 40 mg PO DAILY 04/02/20 04/23/21 04/10/21 08:00 History sertraline 25 mg tablet 75 mg PO BEDTIME 04/02/20 04/23/21 06/20/20 History tamsulosin 0.4 mg capsule 0.4 mg PO BEDTIME 04/02/20 04/23/21 Unknown History torsemide 20 mg tablet 20 mg PO DAILY 04/02/20 04/23/21 04/10/21 08:00 History amitriptyline 75 mg tablet 2 tab PO BEDTIME 05/05/20 04/23/21 Unknown History insulin glargine 100 unit/mL (3 15 unit SUBCUT BEDTIME 05/05/20 04/23/21 06/19/20 History mL) subcutaneous pen (Basaglar KwikPen U-100 Insulin) multivitamin-ferrous 1 tab PO QAM 05/05/20 04/23/21 04/10/21 08:00 History fumarate-folic acid 18 mg-400 mcg tablet (Cerovite Advanced Formula) clonazepam 0.5 mg tablet 0.5 mg PO BID 05/26/20 04/23/21 04/27/21 History ipratropium bromide 42 mcg (0.06 1 INTRANASAL BEDTIME 05/26/20 10/07/20 Unknown History %) nasal spray nitroglycerin 0.4 mg sublingual 0.4 mg SUBLINGUAL 05/26/20 10/07/20 Unknown History tablet pen needle, diabetic 32 gauge x #50 ea 05/26/20 10/07/20 Unknown History zolpidem 10 mg tablet 10 mg PO BEDTIME PRN 05/26/20 04/23/21 Unknown History dapagliflozin 10 mg tablet 10 mg PO QAM 10/31/20 04/23/21 04/10/21 08:00 History ([facility]) escitalopram oxalate 10 mg tablet 10 mg PO DAILY 10/31/20 04/23/21 04/10/21 08:00 History metoprolol succinate 25 mg 12.5 mg PO DAILY 10/31/20 04/23/21 04/27/21 History tablet,extended release 24 hr pilocarpine HCl 5 mg tablet 5 mg PO BID 10/31/20 04/23/21 04/10/21 08:00 History primidone 250 mg tablet mg PO 10/31/20 04/10/21 08:00 History spironolactone 25 mg tablet 25 mg PO DAILY 10/31/20 04/23/21 04/27/21 History trazodone 50 mg tablet 50 mg PO BEDTIME 10/31/20 04/23/21 Unknown History cetirizine 10 mg tablet 1 tab PO DAILY 04/07/21 04/23/21 04/10/21 08:00 History dulaglutide 3 mg/0.5 mL 3 mg SUBCUT QWEEK 04/07/21 04/23/21 Unknown History subcutaneous pen injector (Trulicity) mirtazapine 7.5 mg tablet 1 tab PO BEDTIME 04/07/21 04/23/21 Unknown History prazosin 5 mg capsule 1 cap PO BEDTIME 04/07/21 04/23/21 Unknown History isosorbide mononitrate 60 mg 1.5 tab PO QAM 04/20/21 04/23/21 04/27/21 History tablet,extended release 24 hr melatonin 5 mg tablet 2 tab PO BEDTIME 04/20/21 04/23/21 Unknown History sertraline 50 mg tablet 1.5 tab PO BEDTIME 04/20/21 04/23/21 Unknown History Exam Airway Mallampati Class: III TM Dist: >3cm Neck ROM: Full Loose/Missing/Broken Teeth: No Heart: rrr+s1s2 Lungs: cta b/l Assessment and Plan Assessment Anesthesia Assessment: Anesthesia Plan Discussed Final Anesthetic Review NPO: Yes ASA Class: III Final Preanesthetic Review: No Changes in Pt Med Stat, Meds/Allgs Chart Reviewed, Consent Obtained/Reviewed and Anes Risks/Benef Reviewed Patient Risk: Intermediate Procedure Risk: Low Assessment/Block/Sedation in SS: Assess/Block/Sedation-SS Anesthetic Plan Anesthetic Plan: MAC: and Agree w/ Assess. and Plan Disposition: Standard PACU
--- NOTE | 2021-05-08 13:24 | MHC.SHP ---
Pre-Procedural Eval Section A Date of Service: 05/08/21 The patient is an INPATIENT: No Changes since office visit: No Cold of Flu in the past 2 weeks, No New Medical Problems, No Changes in Medication and No Patient answered all questions The History & Physical has been completed within 30 days and I have reviewed it.: Yes Section B Chief Complaint: cataract Allergies: Allergies Allergy/AdvReac Type Severity Reaction Status Date / Time grass pollen Allergy Mild unknown Verified 05/06/21 13:09 tree and shrub pollen Allergy Mild itchy Verified 05/06/21 13:09 eyes, sneeze, runny nose Plan Diagnosis/Plan: Unchanged I have reviewed the history and physical and performed a pertinent physical examination on my patient. No changes have occurred unless specified.
[2021-05-11 08:59] VITALS: BP 119/66; PULSE 50; RESP 16; TEMP 37; O2SAT 96
[2021-05-11 09:09] LABS: Glucose, Whole Blood 102 mg/dL (60-115)
[2021-05-11] MEDS: Tetracaine HCl/PF 0.5% Oph Sol 4 ML DROPS 1 DROP EYE-LEFT (09:14)
[2021-05-11] MEDS: Tropicamide 1 % Ophth Sol 3 ML BTL 1 DROP EYE-LEFT ×3 (09:16→09:23)
[2021-05-11] MEDS: Phenylephrine HCL 2.5% Oph SoL 2 ML BOTTLE 1 DROP EYE-LEFT ×3 (09:18→09:26)
[2021-05-11] MEDS: Lactated Ringers 500 ML 50 ML IV (09:23)
--- NOTE | 2021-05-11 09:50 | HO.PNOPHT ---
Ophthalmology Procedure Procedure Date of Service: 05/11/21 Ophthalmology Viscoelastic: Healon Duet Dual Pack Pro Ophthalmology Lenses: TECNIS [id number] (20.5) Procedure Notes: PREOPERATIVE DIAGNOSIS: Decreased visual acuity left eye secondary to cataract POSTOPERATIVE DIAGNOSIS: Same PROCEDURE: Left cataract extraction with intraocular lens insertion SURGEON: Lenny Denson M.D. ANESTHESIA: Topical/MAC ESTIMATED BLOOD LOSS: None COMPLICATIONS: None After obtaining informed consent, the patient was brought to the operation room suite and placed in the supine position. After adequate sedation per anesthesia, topical drops of Tetracaine were given to the left eye. The eye was then prepped and draped in the usual sterile fashion. The operating room microscope was then positioned over the operative eye and a lid speculum placed. A paracentesis was created. Viscoelastic was then instilled into the anterior chamber. A three plane incision was then created temporally, utilizing a 2.85 mm keratome. Capsulotomy forceps were then utilized to create a circular tear capsulotomy. Hydrodissection and hydrodelineation were carried out until adequate mobilization of the nucleus occurred. Phacoemulsification was then utilized to remove the dense central nucleus followed by removal of the cortical material utilizing the automated aspiration irrigation unit. Viscoat elastic was instilled into the posterior capsular bag followed by placement of a posterior chamber intraocular lens without difficulty. The residual Viscoat elastic was then removed utilizing the automated IA machine. The wound was check and found to be watertight. The patient tolerated the procedure well and the lid speculum was removed. Intracameral injection of Vigamox 0.1 mL followed by a subtenon injection of Kenalog-40 0.2 mL were administered. The patient will be seen in the a.m.
[2021-05-11 10:09] VITALS: BP 124/62; PULSE 58; RESP 18; TEMP 36.4; O2SAT 96
== END 2021-05-11 10:37 | disposition home or self-care (01) ==
PROVIDERS: PCP Internal Medicine; Visit Provider Ophthalmology
PROC: (CPT 66985; principal; 2021-05-11 10:00)
DX: H25.12 Age-related nuclear cataract, left eye (principal); H52.4 Presbyopia; E11.22 Type 2 diabetes mellitus with diabetic chronic kidney disease; I13.0 Hypertensive heart and chronic kidney disease with heart failure and stage 1 through stage 4 chronic kidney disease, or unspecified chronic kidney disease; N18.30 Chronic kidney disease, stage 3 unspecified; I50.9 Heart failure, unspecified; I25.10 Atherosclerotic heart disease of native coronary artery without angina pectoris; Z95.1 Presence of aortocoronary bypass graft; F32.9 Major depressive disorder, single episode, unspecified; I48.91 Unspecified atrial fibrillation; Z79.01 Long term (current) use of anticoagulants; Z79.4 Long term (current) use of insulin; Z79.899 Other long term (current) drug therapy; Z87.891 Personal history of nicotine dependence
CPT/HCPCS: 66984; 82947; J2250; J3010; J3300; V2632

== ENCOUNTER 2021-08-05 16:00 | Outpatient (REF) | payer MEDICARE, MEDICAID, SELFPAY ==
[2021-08-05 17:29] LABS: Blood Urea Nitrogen 22 mg/dL (9-16); Estimated Glomerular Filt Rate 54
== END 2021-08-05 16:01 | disposition home or self-care (01) ==
LOC: HO.LAB 16:00
PROVIDERS: PCP Internal Medicine; Visit Provider Internal Medicine Gastroenterology
DX: R13.10 Dysphagia, unspecified (principal); R43.2 Parageusia
CPT/HCPCS: 36415; 82565; 84520

== ENCOUNTER 2021-08-06 14:34 | Outpatient (REF) | payer MEDICARE, MEDICAID, SELFPAY ==
--- NOTE | ~2021-08-06 | CT_ITS ---
EXAMINATION: CT SOFT TISSUE NECK WITH CONTRAST CLINICAL INFORMATION: Cervicalgia. COMPARISON: Head CTA 09/20/2018. TECHNIQUE: Following the administration of 100 mL of Omnipaque 300 intravenous contrast, helical imaging was performed in the axial plane with generation of coronal and sagittal reformatted images. This CT examination was performed using dose optimization techniques as appropriate, variously including the following: *Automated exposure control *Adjustment of mA and/or kV according to patient size (this includes techniques or standardized protocols for targeted exams where dose is matched to indication/reason for exam; i.e. extremities or head) *Use of iterative reconstruction technique DLP: 326 mGy-cm FINDINGS: The nasopharynx appears normal. There is no retropharyngeal adenopathy. There is a right palatine tonsillolith. The palatine tonsillar fossa otherwise appear normal and symmetric. The base of tongue appears normal. There is no oral cavity lesion. No laryngeal lesion is seen. The parotid and submandibular glands appear normal and symmetric. No enlarged cervical chain lymph nodes are seen. The thyroid gland appears normal. Nonenlarged upper mediastinal lymph nodes are seen. Changes of coronary artery bypass grafting are noted. There is no consolidation within the lungs. Numerous scattered calcified granuloma are seen in the upper lungs. There is a 3 mm pulmonary nodule within the left upper lobe. Atheromatous changes are seen within the major neck arteries. There is no evidence of high-grade stenosis of the proximal internal carotid arteries. Both vertebral arteries are patent. Intracranially, there is a arachnoid cyst along the left middle cranial fossa measuring 3.8 cm resulting in mild mass effect on the adjacent temporal lobe, stable compared with 2019. Significant atheromatous changes are seen along the bilateral carotid siphons and to lesser extent along the intradural vertebral arteries. No acute intracranial abnormality is seen. There are bilateral lens replacements. There is mild paranasal sinus mucosal thickening. In the cervical spine, there is mild anterolisthesis of C3 on C4 and C4 on C5. There is multilevel intervertebral disc height loss. There is severe facet arthropathy on the left at C2-C3 and C3-C4. There is no high-grade narrowing of the spinal canal. There is multilevel neural foraminal stenosis related to uncovertebral hypertrophy and facet arthropathy. Neural foraminal stenosis appears mild to moderate bilaterally at C5-C6 and moderate to severe on the right at C6-C7 and less advanced at other levels. CT/CT soft tissue neck w con IMPRESSION: No neck mass or suspicious lymphadenopathy identified. Degenerative spondylotic changes are demonstrated without high-grade narrowing of the spinal canal. Incidentally noted 3 mm pulmonary nodule within the left upper lobe. According to the updated 2017 Fleischner Society recommendations, the advised follow-up imaging for solid nodules < 6 mm is: LOW RISK PATIENT: No routine follow-up. HIGH RISK PATIENT: Optional CT at 12 months.
[2021-08-06] MEDS: iohexoL 350 MG/ML 100 ML INFUS..BTL IV (15:57)
== END 2021-08-06 14:35 | disposition home or self-care (01) ==
LOC: HO.CT 14:34
PROVIDERS: Visit Provider Internal Medicine Gastroenterology
DX: M54.2 Cervicalgia (principal)
CPT/HCPCS: 70491; Q9967

== ENCOUNTER 2021-08-26 12:20 | Day surgery (SDC) | payer MEDICARE, MEDICAID, SELFPAY ==
[2021-08-19 14:59] VITALS: BMI 34.6
--- NOTE | ~2021-08-26 | FL_ITS ---
EXAMINATION: XR FLUOROSCOPY WITH IMAGES CLINICAL INFORMATION: Lumbar spinal stimulation trial. COMPARISON: Chest radiographs 09/07/2018 TECHNIQUE: Fluoroscopy performed by Dr. Felix Schmitt. Fluoroscopy time: 1.6 minutes. DAP: 10.3 Gycm2. Images: 3. FINDINGS: There are 2 spinal stimulator electrodes seen ascending the posterior spinal canal. The electrode tips are at level of mid thoracic spine, approximately levels of T8 and T9. There is no visible kinking or defect of the leads. There has been prior median sternotomy, lowermost sternotomy wire is discontinuous, new from prior chest 2019. FL/FL guidance in OR IMPRESSION: Fluoroscopy for pain management procedure.
[2021-08-26 12:52] VITALS: BMI 33.3
--- NOTE | 2021-08-26 13:01 | P.CONAN_ITS ---
HPI - Anesthesia Eval Consult details Narrative: Chronic lumbar back pain PMFSH Active Problems Active Problems: All Active Problems (Updated 08/26/21 @ 12:56 by Claritza Salguero RN) Anosmia (Acute) Dysgeusia (Acute) Tinnitus (Acute) Depression screen (Acute) Dysphagia (Acute) Neck pain (Acute) Disc degeneration, lumbar (Acute) Lumbago of lumbar region with sciatica (Acute) 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, lumbar region (Acute) Benign essential tremor (Acute) Spondylosis of cervical joint without myelopathy (Acute) Spondylosis of lumbosacral spine without myelopathy (Acute) Past Medical History Medical History AAA (abdominal aortic aneurysm) Arrhythmia Benign essential tremor CAD (coronary artery disease) Cardiac arrest CHF (congestive heart failure) Chronic renal insufficiency CVA (cerebral vascular accident) Disc degeneration, lumbar Elevated cholesterol History of ischemic cardiomyopathy HTN (hypertension) IDDM (insulin dependent diabetes mellitus) Lumbago of lumbar region with sciatica Mood disorder Myocardial infarction On anticoagulant therapy On beta ruddy at home PVD (peripheral vascular disease) Sleep apnea 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, 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 Family History Family History Father Hx of congenital heart disease Mother Hx of heat stroke Family history of problems with anesthesia: No Surgical History Surgical History History of colonoscopy History of hernia repair History of PTCA History of surgery Hx of CABG Hx of endoscopy Hx of gastric bypass Hx of parathyroidectomy History of Problems with Anesthesia: No Social History Social History Are you a primary manager medicare marketing to a significant other at home: No Alcohol intake: never Patient Tobacco Use Status: Former Tobacco user Quit Date: Tobacco use type: Cigarette Smoked in Last 30 Days: No Second Hand Smoke Exposure: No Use of substances other than those prescribed or required for medical reasons: No Are you DNR?: No Advance Directives: No Advance Directives Information Provided: Yes Recently lost weight without trying: No How much weight loss: 2-13 pounds Nutrition Risks: No Nutritional Risk Meds Allergies Allergy/AdvReac Type Severity Reaction Status Date / Time grass pollen Allergy Mild unknown Verified 05/11/21 08:58 tree and shrub pollen Allergy Mild itchy Verified 05/11/21 08:58 eyes, sneeze, runny nose Active Medications: Current Medications Cefazolin Sodium/Dextrose (Ancef) 2 gm in 50 mls @ 100 mls/hr IV PREOP ONE Stop: 08/26/21 13:02 Home Medications Medication Instructions Recorded Confirmed Last Taken Type aspirin 81 mg tablet,delayed 81 mg PO DAILY 04/02/20 08/19/21 08/19/21 History release (Adult Aspirin Regimen) azelastine 137 mcg (0.1 %) nasal 1 spray intranasal BID 04/02/20 08/19/21 04/10/21 08:00 History spray aerosol baclofen 20 mg tablet 20 mg PO TID 04/02/20 08/19/21 04/27/21 History bupropion HCl 300 mg 24 hr tablet, 300 mg PO QAM 04/02/20 08/19/21 04/27/21 History extended release calcium carbonate 600 mg calcium 600 mg PO BID 04/02/20 08/19/21 04/10/21 08:00 History (1,500 mg) tablet cholecalciferol (vitamin D3) 25 25 mcg PO DAILY 04/02/20 08/19/21 04/10/21 08:00 History mcg (1,000 unit) capsule docusate sodium 100 mg capsule 200 mg PO BID 04/02/20 08/19/21 04/10/21 08:00 History esomeprazole magnesium 20 mg 20 mg PO BID 04/02/20 08/19/21 04/10/21 08:00 History capsule,delayed release finasteride 5 mg tablet 5 mg PO DAILY 04/02/20 08/19/21 04/10/21 08:00 History fluticasone propionate 50 1 spray intranasal DAILY 04/02/20 08/19/21 06/20/20 History mcg/actuation nasal spray,suspension hydroxyzine HCl 25 mg tablet 25 mg PO BID PRN Anxiety 04/02/20 08/19/21 Unknown History lidocaine HCl 4 % topical cream 1 appl topical QID PRN Pain 04/02/20 04/23/21 Unknown History (Aspercreme (lidocaine HCl)) lisinopril 5 mg tablet 5 mg PO BEDTIME 04/02/20 08/19/21 06/20/20 History rivaroxaban 20 mg tablet (Xarelto) 20 mg PO BEDTIME 04/02/20 08/26/21 08/22/21 History rosuvastatin 40 mg tablet 40 mg PO DAILY 04/02/20 04/23/21 04/10/21 08:00 History sertraline 25 mg tablet 75 mg PO BEDTIME 04/02/20 04/23/21 06/20/20 History tamsulosin 0.4 mg capsule 0.4 mg PO BEDTIME 04/02/20 08/19/21 Unknown History torsemide 20 mg tablet 20 mg PO DAILY 04/02/20 08/19/21 04/10/21 08:00 History amitriptyline 75 mg tablet 2 tab PO BEDTIME 05/05/20 04/23/21 Unknown History multivitamin-ferrous 1 tab PO QAM 05/05/20 08/19/21 04/10/21 08:00 History fumarate-folic acid 18 mg-400 mcg tablet (Cerovite Advanced Formula) clonazepam 0.5 mg tablet 0.5 mg PO BID 05/26/20 08/19/21 04/27/21 History ipratropium bromide 42 mcg (0.06 1 intranasal BEDTIME 05/26/20 10/07/20 Unknown History %) nasal spray nitroglycerin 0.4 mg sublingual 0.4 mg sublingual ONCE PRN Chest 05/26/20 08/19/21 Unknown History tablet Pain pen needle, diabetic 32 gauge x #50 ea 05/26/20 10/07/20 Unknown History zolpidem 10 mg tablet 10 mg PO BEDTIME PRN Sleep 05/26/20 08/19/21 Unknown History dapagliflozin 10 mg tablet 10 mg PO QAM 10/31/20 08/19/21 04/10/21 08:00 History ([facility]) escitalopram oxalate 10 mg tablet 10 mg PO DAILY 10/31/20 04/23/21 04/10/21 08:00 History metoprolol succinate 25 mg 12.5 mg PO DAILY 10/31/20 08/19/21 04/27/21 History tablet,extended release 24 hr pilocarpine HCl 5 mg tablet 5 mg PO BID 10/31/20 04/23/21 04/10/21 08:00 History primidone 250 mg tablet 250 mg PO DAILY 10/31/20 08/19/21 04/10/21 08:00 History spironolactone 25 mg tablet 25 mg PO DAILY 10/31/20 08/19/21 04/27/21 History trazodone 50 mg tablet 50 mg PO BEDTIME 10/31/20 04/23/21 Unknown History cetirizine 10 mg tablet 1 tab PO DAILY 04/07/21 04/23/21 04/10/21 08:00 History dulaglutide 3 mg/0.5 mL 3 mg subcut QWEEK 04/07/21 04/23/21 Unknown History subcutaneous pen injector (Trulicity) mirtazapine 7.5 mg tablet 1 tab PO BEDTIME 04/07/21 08/19/21 Unknown History prazosin 5 mg capsule 1 cap PO BEDTIME 04/07/21 08/19/21 Unknown History isosorbide mononitrate 60 mg 1.5 tab PO QAM 04/20/21 08/19/21 04/27/21 History tablet,extended release 24 hr melatonin 5 mg tablet 2 tab PO BEDTIME 04/20/21 08/19/21 Unknown History sertraline 50 mg tablet 1.5 tab PO BEDTIME 04/20/21 08/19/21 Unknown History Exam Exam Date and Time: August 26, 2021 1301 Height,Weight and Vital Signs: Height 5 ft 8 in Weight 99.337 kg Airway Mallampati Class: III TM Dist: >3cm Neck ROM: Full Loose/Missing/Broken Teeth: No Heart: [id number] Lungs: cta b/l Assessment and Plan Assessment Anesthesia Assessment: Anesthesia Plan Discussed and Chart Reviewed Final Anesthetic Review Family History of Problems with Anesthesia: No History of Problems with Anesthesia: No NPO: Yes ASA Class: III Final Preanesthetic Review: No Changes in Pt Med Stat, Meds/Allgs Chart Reviewed, Consent Obtained/Reviewed and Anes Risks/Benef Reviewed Patient Risk: Intermediate Procedure Risk: Intermediate Assessment/Block/Sedation in SS: Assess/Block/Sedation-SS Anesthetic Plan Anesthetic Plan: MAC: and Agree w/ Assess. and Plan Disposition: Standard PACU
[2021-08-26 13:06] VITALS: BP 161/107; PULSE 66; RESP 16; TEMP 36.6; O2SAT 96
[2021-08-26 13:33] VITALS: BP 165/83; PULSE 68
[2021-08-26] MEDS: Lactated Ringers 1,000 ML 50 ML IVCONT (13:40)
[2021-08-26 13:44] LABS: Glucose, Whole Blood 116 mg/dL (60-115)
[2021-08-26 15:09] VITALS: BP 159/72; PULSE 64; RESP 20; TEMP 36.4; O2SAT 97
[2021-08-26 15:24] VITALS: BP 156/88; PULSE 60; RESP 20; O2SAT 97
[2021-08-26 15:39] VITALS: BP 152/82; PULSE 60; RESP 20; TEMP 36.4; O2SAT 97
--- NOTE | 2021-08-28 11:40 | MHC.SHP ---
Pre-Procedural Eval Section A Date of Service: 08/26/21 The patient is an INPATIENT: No Changes since office visit: Yes Patient answered all questions The History & Physical has been completed within 30 days and I have reviewed it.: Yes Section B Chief Complaint: Spondylosis without myelopathy or radiculopathy, Relevant Family History (Specify if Yes): No Relevant Social History: None Present Medications: see Short Stay Collaborative assessment Medical History: Significant History (Atrial fibrillation on anticoagulation) Allergies: Allergies Allergy/AdvReac Type Severity Reaction Status Date / Time grass pollen Allergy Mild unknown Verified 05/11/21 08:58 tree and shrub pollen Allergy Mild itchy Verified 05/11/21 08:58 eyes, sneeze, runny nose Review of Systems Sugical H&P ROS: Negative: Constitution, Cardiovascular and Respiratory Exam Surgical H&P Exam: Normal: HEENT, Normal: Heart and Normal: Lungs Plan Diagnosis/Plan: Unchanged I have reviewed the history and physical and performed a pertinent physical examination on my patient. Patient is off anticoagulation without bridge. Will tentatively plan to send a prescription for Lovenox bridge and follow up with melt helper Dr. Foote in the meanwhile to see if they have specific recommendations. No changes have occurred unless specified.
--- NOTE | 2021-08-28 11:42 | P.BOP_ITS ---
Brief Operative Note Date of Service: 08/26/21 Pre-op diagnosis: Lumbar spondylosis, lumbago of lumbar region with sciatica Post-op diagnosis: same Procedure: Lumbar spinal cord stimulation trial Implants: Spinal cord stimulator trial leads, HFX Nevro system Surgeon: Felix Schmitt MD Anesthesia: MAC Was an Public Welfare Director used for this Procedure?: No Estimated blood loss (mL): 3 Pathology: none sent Condition: stable Disposition: PACU
--- NOTE | 2021-08-28 11:44 | W.PM.OPN ---
Operative Note Operative Note Date of Service: 08/26/21 Narrative: Percutaneous Spinal Cord Stimulator Trial, Lumbar After obtaining written consent, pre-procedure blood pressure and heart rate were recorded and are in the nursing record for review. A peripheral IV was started. Antibiotics, cefazolin 2 gram, were given intraoperatively. The patient was placed in a prone position.? The patient was sedated by the anesthesiologist. The thoracolumbar area was widely prepped with ChloraPrep, allowed to dry and draped in sterile fashion. Fluoroscopy was used to identify the target interlaminar spaces and appropriate needle insertion sites. The skin and subcutaneous tissue was anesthetized with 1% lidocaine with epinephrine mixed with 0.25% ropivacaine. Two separate 14 gauge Tuohy epidural needles were then advanced from this point in a paramedian approach to the epidural space opening at T12/L1 interspace, where lost of resistance was found using air. No paresthesias were elicited with needle placement. No CSF or heme was present upon needle placement. A guide wire was then used to confirm placement into the epidural space at each level under live fluoroscopy. The 1x8 stimulator lead wire was then threaded to the top of T8 in the left parasagittal position and top of of T9 in the right parasagittal position under live fluoroscopy. The leads advanced midline.? The Tuohy needles were then completely removed under live fluoroscopy. The stimulator wires were then secured with 2-0 Ticron sutures. Dermabond, Steristrips, gauze and tegaderm were used for skin dressing. The patient tolerated the procedure well and no complications were encountered. Following the procedure the patient's vital signs were stable. The patient was discharged home in good condition after being given discharge instructions. Time Out: Immediately prior to the procedure, the following was verbally confirmed that there is a signed consent form and that the correct patient, planned procedure, site and side are consistent with documentation and that necessary equipment and/or blood products are available prior to the start of the case. Complications: none EBL: <2 cc
== END 2021-08-26 16:13 | disposition home or self-care (01) ==
PROVIDERS: PCP Internal Medicine; Visit Provider Internal Medicine
PROC: (CPT 63650; principal; 2021-08-26 13:40)
DX: M47.817 Spondylosis without myelopathy or radiculopathy, lumbosacral region (principal); G89.4 Chronic pain syndrome; M54.40 Lumbago with sciatica, unspecified side; M51.36 Other intervertebral disc degeneration, lumbar region; G25.0 Essential tremor; Z86.73 Personal history of transient ischemic attack (TIA), and cerebral infarction without residual deficits; I48.91 Unspecified atrial fibrillation; Z79.01 Long term (current) use of anticoagulants; I25.10 Atherosclerotic heart disease of native coronary artery without angina pectoris; I25.2 Old myocardial infarction; Z95.1 Presence of aortocoronary bypass graft; Z98.61 Coronary angioplasty status; I13.0 Hypertensive heart and chronic kidney disease with heart failure and stage 1 through stage 4 chronic kidney disease, or unspecified chronic kidney disease; I50.9 Heart failure, unspecified; N18.30 Chronic kidney disease, stage 3 unspecified; E11.22 Type 2 diabetes mellitus with diabetic chronic kidney disease; Z79.4 Long term (current) use of insulin; Z79.899 Other long term (current) drug therapy; Z87.891 Personal history of nicotine dependence
CPT/HCPCS: 63650 ×2; 82947; C1897; J0690; J2250; J2795

== ENCOUNTER → 2021-09-01 14:33 | Outpatient (BNVA) | payer MEDICARE, MEDICAID, SELFPAY | PROVIDERS: PCP Internal Medicine; Visit Provider Nurse Practitioner Family | DX: G89.29 Other chronic pain (principal); M47.817 Spondylosis without myelopathy or radiculopathy, lumbosacral region; M51.36 Other intervertebral disc degeneration, lumbar region; Z98.890 Other specified postprocedural states | CPT/HCPCS: 99212 ==

== ENCOUNTER → 2021-09-07 09:56 | Outpatient (BNVA) | payer MEDICARE, MEDICAID, SELFPAY | PROVIDERS: PCP Internal Medicine; Visit Provider Internal Medicine Gastroenterology | DX: Z13.89 Encounter for screening for other disorder (principal) | CPT/HCPCS: Q3014 ==

== ENCOUNTER → 2021-10-14 12:54 | Outpatient (BNVA) | payer MEDICARE, MEDICAID, SELFPAY | PROVIDERS: PCP Internal Medicine; Visit Provider Anesthesiology | DX: G89.29 Other chronic pain (principal); M47.817 Spondylosis without myelopathy or radiculopathy, lumbosacral region; M51.36 Other intervertebral disc degeneration, lumbar region | CPT/HCPCS: 99212 ==

== ENCOUNTER 2021-10-30 05:50 | Day surgery (SDC) | payer MEDICARE, MEDICAID, SELFPAY ==
[2021-10-27 09:18] VITALS: BMI 34.8
--- NOTE | 2021-10-29 10:32 | P.CONAN_ITS ---
Documented by User: Marquita Sanchez NP 10/29/21 10:41 HPI - Anesthesia Eval Consult details Narrative: 71yo M for Lumbar Spinal Cord Stimulation Implant s/p trial 08/2021 with TIVA Xarelto for afib, also LA appendage ligation Cardiac cleared PMFSH Active Problems Active Problems: All Active Problems (Updated 09/01/21 @ 17:40 by Florence Lewis NP) Chronic pain (Acute) Anosmia (Acute) Dysgeusia (Acute) Tinnitus (Acute) Depression screen (Acute) Dysphagia (Acute) Neck pain (Acute) Disc degeneration, lumbar (Acute) Lumbago of lumbar region with sciatica (Acute) 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, lumbar region (Acute) Benign essential tremor (Acute) Spondylosis of cervical joint without myelopathy (Acute) Spondylosis of lumbosacral spine without myelopathy (Acute) Past Medical History Medical History AAA (abdominal aortic aneurysm) Arrhythmia Benign essential tremor CAD (coronary artery disease) Cardiac arrest CHF (congestive heart failure) Chronic renal insufficiency CVA (cerebral vascular accident) Disc degeneration, lumbar Elevated cholesterol History of ischemic cardiomyopathy HTN (hypertension) IDDM (insulin dependent diabetes mellitus) Lumbago of lumbar region with sciatica Mood disorder Myocardial infarction On anticoagulant therapy On beta ruddy at home PVD (peripheral vascular disease) Sleep apnea 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, 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 Family History Family History Father Hx of congenital heart disease Mother Hx of heat stroke Family history of problems with anesthesia: No Surgical History Surgical History History of colonoscopy History of hernia repair History of PTCA History of surgery Hx of CABG Hx of endoscopy Hx of gastric bypass Hx of parathyroidectomy History of Problems with Anesthesia: No Social History Social History Are you a primary customer care assistant to a significant other at home: No Do you presently have visiting nurse 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) Alcohol intake: never Patient Tobacco Use Status: Former Tobacco user Quit Date: Tobacco use type: Cigarette Second Hand Smoke Exposure: No Are you DNR?: No Advance Directives: No Advance Directives Information Provided: Yes Nutrition Risks: No Nutritional Risk Meds Allergies Allergy/AdvReac Type Severity Reaction Status Date / Time grass pollen Allergy Mild unknown Verified 10/30/21 06:35 tree and shrub pollen Allergy Mild itchy Verified 10/30/21 06:35 eyes, sneeze, runny nose Home Medications Medication Instructions Recorded Confirmed Last Taken Type aspirin 81 mg tablet,delayed 81 mg PO DAILY 04/02/20 08/19/21 10/23/21 History release (Adult Aspirin Regimen) azelastine 137 mcg (0.1 %) nasal 1 spray intranasal BID 04/02/20 08/19/21 10/29/21 History spray aerosol baclofen 20 mg tablet 20 mg PO TID 04/02/20 08/19/21 10/29/21 History bupropion HCl 300 mg 24 hr tablet, 300 mg PO QAM 04/02/20 08/19/21 10/29/21 History extended release calcium carbonate 600 mg calcium 600 mg PO BID 04/02/20 08/19/21 04/10/21 08:00 History (1,500 mg) tablet cholecalciferol (vitamin D3) 25 25 mcg PO DAILY 04/02/20 08/19/21 10/29/21 History mcg (1,000 unit) capsule docusate sodium 100 mg capsule 200 mg PO BID 04/02/20 08/19/21 10/29/21 History esomeprazole magnesium 20 mg 20 mg PO BID 04/02/20 08/19/21 10/29/21 History capsule,delayed release finasteride 5 mg tablet 5 mg PO DAILY 04/02/20 08/19/21 10/29/21 History fluticasone propionate 50 1 spray intranasal DAILY 04/02/20 08/19/21 10/29/21 History mcg/actuation nasal spray,suspension hydroxyzine HCl 25 mg tablet 25 mg PO BID PRN Anxiety 04/02/20 08/19/21 Unknown History lidocaine HCl 4 % topical cream 1 appl topical QID PRN Pain 04/02/20 04/23/21 10/29/21 History (Aspercreme (lidocaine HCl)) lisinopril 5 mg tablet 5 mg PO BEDTIME 04/02/20 08/19/21 10/29/21 History rivaroxaban 20 mg tablet (Xarelto) 20 mg PO BEDTIME 04/02/20 08/26/21 10/26/21 History rosuvastatin 40 mg tablet 40 mg PO DAILY 04/02/20 04/23/21 10/29/21 History sertraline 25 mg tablet 75 mg PO BEDTIME 04/02/20 04/23/21 10/29/21 History tamsulosin 0.4 mg capsule 0.4 mg PO BEDTIME 04/02/20 08/19/21 10/29/21 History torsemide 20 mg tablet 20 mg PO DAILY 04/02/20 08/19/21 10/29/21 History amitriptyline 75 mg tablet 2 tab PO BEDTIME 05/05/20 04/23/21 10/29/21 History multivitamin-ferrous 1 tab PO QAM 05/05/20 08/19/21 10/29/21 History fumarate-folic acid 18 mg-400 mcg tablet (Cerovite Advanced Formula) clonazepam 0.5 mg tablet 0.5 mg PO BID 05/26/20 08/19/21 10/29/21 History ipratropium bromide 42 mcg (0.06 1 intranasal BEDTIME 05/26/20 10/07/20 10/29/21 History %) nasal spray nitroglycerin 0.4 mg sublingual 0.4 mg sublingual ONCE PRN Chest 05/26/20 08/19/21 Unknown History tablet Pain pen needle, diabetic 32 gauge x #50 ea 05/26/20 10/07/20 Unknown History zolpidem 10 mg tablet 10 mg PO BEDTIME PRN Sleep 05/26/20 08/19/21 10/29/21 History dapagliflozin 10 mg tablet 10 mg PO QAM 10/31/20 08/19/21 10/29/21 History () escitalopram oxalate 10 mg tablet 10 mg PO DAILY 10/31/20 04/23/21 10/29/21 History metoprolol succinate 25 mg 12.5 mg PO DAILY 10/31/20 08/19/21 10/29/21 History tablet,extended release 24 hr pilocarpine HCl 5 mg tablet 5 mg PO BID 10/31/20 04/23/21 10/29/21 History primidone 250 mg tablet 250 mg PO DAILY 10/31/20 08/19/21 10/29/21 History spironolactone 25 mg tablet 25 mg PO DAILY 10/31/20 08/19/21 10/29/21 History cetirizine 10 mg tablet 1 tab PO DAILY 04/07/21 04/23/21 10/29/21 History mirtazapine 7.5 mg tablet 1 tab PO BEDTIME 04/07/21 08/19/21 10/29/21 History prazosin 5 mg capsule 1 cap PO BEDTIME 04/07/21 08/19/21 Unknown History isosorbide mononitrate 60 mg 1.5 tab PO QAM 04/20/21 08/19/21 10/29/21 History tablet,extended release 24 hr melatonin 5 mg tablet 2 tab PO BEDTIME 04/20/21 08/19/21 Unknown History sertraline 50 mg tablet 1.5 tab PO BEDTIME 04/20/21 08/19/21 10/29/21 History calcium carbonate 600 mg-vitamin 1 tab PO 09/07/21 Unknown History D3 10 mcg (400 unit) tablet dulaglutide 4.5 mg/0.5 mL 4.5 mg subcut QWEEK 09/07/21 10/23/21 History subcutaneous pen injector (Trulicity) hydroxyzine pamoate 25 mg capsule 25 mg PO anxiety 09/07/21 10/29/21 History polyethylene glycol 3350 17 gram 17 g PO DAILY 09/07/21 Unknown History oral powder packet (Miralax) pseudoephedrine HCl 120 mg 120 mg PO Q12H 09/07/21 10/29/21 History tablet,extended release sucralfate 1 gram tablet 1 g PO 09/07/21 Unknown History xylitol 550 mg mucosal adhesive mg mucous membrane 10/30/21 Unknown History tablet (Xylimelts) Exam Exam Date and Time: October 29, 2021 1032 Height,Weight and Vital Signs: Height 5 ft 8 in Weight 103.873 kg Pertinent Lab Results Pertinent Lab Results: Laboratory Tests 08/05/21 16:15 BUN 22 H Creatinine 1.31 Narrative Narrative: ECHO 2020 LVEF 60-65% Mildly reduced RV systolic function Mild low flow-low gradient aortic stenosis No other significant valve abnormalities EKG 2020 Afib @ 68 Inferior infarct non-specific intra-vent conduction delay Assessment and Plan Assessment Anesthesia Assessment: Chart Reviewed Final Anesthetic Review Family History of Problems with Anesthesia: No History of Problems with Anesthesia: No Documented by User: Josué Pineda MD 10/30/21 07:37 [facility] Past Medical History Medical History AAA (abdominal aortic aneurysm) Arrhythmia Benign essential tremor CAD (coronary artery disease) Cardiac arrest CHF (congestive heart failure) Chronic renal insufficiency CVA (cerebral vascular accident) Disc degeneration, lumbar Elevated cholesterol History of ischemic cardiomyopathy HTN (hypertension) IDDM (insulin dependent diabetes mellitus) Lumbago of lumbar region with sciatica Mood disorder Myocardial infarction On anticoagulant therapy On beta ruddy at home PVD (peripheral vascular disease) Sleep apnea 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, 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 Family History Family History Father Hx of congenital heart disease Mother Hx of heat stroke Surgical History Surgical History History of colonoscopy History of hernia repair History of PTCA History of surgery Hx of CABG Hx of endoscopy Hx of gastric bypass Hx of parathyroidectomy Social History Social History Are you a primary customer care assistant to a significant other at home: No Do you presently have visiting nurse 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) Alcohol intake: never Patient Tobacco Use Status: Former Tobacco user Quit Date: Tobacco use type: Cigarette Second Hand Smoke Exposure: No Are you DNR?: No Advance Directives: No Advance Directives Information Provided: Yes Nutrition Risks: No Nutritional Risk Meds Allergies Allergy/AdvReac Type Severity Reaction Status Date / Time grass pollen Allergy Mild unknown Verified 10/30/21 06:35 tree and shrub pollen Allergy Mild itchy Verified 10/30/21 06:35 eyes, sneeze, runny nose Home Medications Medication Instructions Recorded Confirmed Last Taken Type aspirin 81 mg tablet,delayed 81 mg PO DAILY 04/02/20 08/19/21 10/23/21 History release (Adult Aspirin Regimen) azelastine 137 mcg (0.1 %) nasal 1 spray intranasal BID 04/02/20 08/19/21 10/29/21 History spray aerosol baclofen 20 mg tablet 20 mg PO TID 04/02/20 08/19/21 10/29/21 History bupropion HCl 300 mg 24 hr tablet, 300 mg PO QAM 04/02/20 08/19/21 10/29/21 History extended release calcium carbonate 600 mg calcium 600 mg PO BID 04/02/20 08/19/21 04/10/21 08:00 History (1,500 mg) tablet cholecalciferol (vitamin D3) 25 25 mcg PO DAILY 04/02/20 08/19/21 10/29/21 History mcg (1,000 unit) capsule docusate sodium 100 mg capsule 200 mg PO BID 04/02/20 08/19/21 10/29/21 History esomeprazole magnesium 20 mg 20 mg PO BID 04/02/20 08/19/21 10/29/21 History capsule,delayed release finasteride 5 mg tablet 5 mg PO DAILY 04/02/20 08/19/21 10/29/21 History fluticasone propionate 50 1 spray intranasal DAILY 04/02/20 08/19/21 10/29/21 History mcg/actuation nasal spray,suspension hydroxyzine HCl 25 mg tablet 25 mg PO BID PRN Anxiety 04/02/20 08/19/21 Unknown History lidocaine HCl 4 % topical cream 1 appl topical QID PRN Pain 04/02/20 04/23/21 10/29/21 History (Aspercreme (lidocaine HCl)) lisinopril 5 mg tablet 5 mg PO BEDTIME 04/02/20 08/19/21 10/29/21 History rivaroxaban 20 mg tablet (Xarelto) 20 mg PO BEDTIME 04/02/20 08/26/21 10/26/21 History rosuvastatin 40 mg tablet 40 mg PO DAILY 04/02/20 04/23/21 10/29/21 History sertraline 25 mg tablet 75 mg PO BEDTIME 04/02/20 04/23/21 10/29/21 History tamsulosin 0.4 mg capsule 0.4 mg PO BEDTIME 04/02/20 08/19/21 10/29/21 History torsemide 20 mg tablet 20 mg PO DAILY 04/02/20 08/19/21 10/29/21 History amitriptyline 75 mg tablet 2 tab PO BEDTIME 05/05/20 04/23/21 10/29/21 History multivitamin-ferrous 1 tab PO QAM 05/05/20 08/19/21 10/29/21 History fumarate-folic acid 18 mg-400 mcg tablet (Cerovite Advanced Formula) clonazepam 0.5 mg tablet 0.5 mg PO BID 05/26/20 08/19/21 10/29/21 History ipratropium bromide 42 mcg (0.06 1 intranasal BEDTIME 05/26/20 10/07/20 10/29/21 History %) nasal spray nitroglycerin 0.4 mg sublingual 0.4 mg sublingual ONCE PRN Chest 05/26/20 08/19/21 Unknown History tablet Pain pen needle, diabetic 32 gauge x #50 ea 05/26/20 10/07/20 Unknown History zolpidem 10 mg tablet 10 mg PO BEDTIME PRN Sleep 05/26/20 08/19/21 10/29/21 History dapagliflozin 10 mg tablet 10 mg PO QAM 10/31/20 08/19/21 10/29/21 History ([place]) escitalopram oxalate 10 mg tablet 10 mg PO DAILY 10/31/20 04/23/21 10/29/21 History metoprolol succinate 25 mg 12.5 mg PO DAILY 10/31/20 08/19/21 10/29/21 History tablet,extended release 24 hr pilocarpine HCl 5 mg tablet 5 mg PO BID 10/31/20 04/23/21 10/29/21 History primidone 250 mg tablet 250 mg PO DAILY 10/31/20 08/19/21 10/29/21 History spironolactone 25 mg tablet 25 mg PO DAILY 10/31/20 08/19/21 10/29/21 History cetirizine 10 mg tablet 1 tab PO DAILY 04/07/21 04/23/2110/29/22 History mirtazapine 7.5 mg tablet 1 tab PO BEDTIME 04/07/21 08/19/21 10/29/21 History prazosin 5 mg capsule 1 cap PO BEDTIME 04/07/21 08/19/21 Unknown History isosorbide mononitrate 60 mg 1.5 tab PO QAM 04/20/21 08/19/21 10/29/21 History tablet,extended release 24 hr melatonin 5 mg tablet 2 tab PO BEDTIME 04/20/21 08/19/21 Unknown History sertraline 50 mg tablet 1.5 tab PO BEDTIME 04/20/21 08/19/21 10/29/21 History calcium carbonate 600 mg-vitamin 1 tab PO 09/07/21 Unknown History D3 10 mcg (400 unit) tablet dulaglutide 4.5 mg/0.5 mL 4.5 mg subcut QWEEK 09/07/21 10/23/21 History subcutaneous pen injector (Trulicity) hydroxyzine pamoate 25 mg capsule 25 mg PO anxiety 09/07/21 10/29/21 History polyethylene glycol 3350 17 gram 17 g PO DAILY 09/07/21 Unknown History oral powder packet (Miralax) pseudoephedrine HCl 120 mg 120 mg PO Q12H 09/07/21 10/29/21 History tablet,extended release sucralfate 1 gram tablet 1 g PO 09/07/21 Unknown History xylitol 550 mg mucosal adhesive mg mucous membrane 10/30/21 Unknown History tablet (Xylimelts) Exam Airway Mallampati Class: IV TM Dist: >3cm Neck ROM: Full Loose/Missing/Broken Teeth: No Heart: irrr Lungs: clear Assessment and Plan Final Anesthetic Review NPO: Yes ASA Class: IV Final Preanesthetic Review: No Changes in Pt Med Stat, Meds/Allgs Chart Reviewed, Consent Obtained/Reviewed and Anes Risks/Benef Reviewed Patient Risk: High Procedure Risk: Intermediate Anesthetic Plan Anesthetic Plan: GA Disposition: Standard PACU
--- NOTE | 2021-10-29 15:19 | MHC.SHP ---
Pre-Procedural Eval Section A Date of Service: 10/29/21 The patient is an INPATIENT: No Changes since office visit: Yes Patient answered all questions The History & Physical has been completed within 30 days and I have reviewed it.: No Section B Chief Complaint: Other chronic pain Details of Present Illness: chronic pain syndrome Relevant Family History (Specify if Yes): No Relevant Social History: None Present Medications: None Medical History: No relevant PMH History of Previous Operations: No relevant previous surgery Allergies: Allergies Allergy/AdvReac Type Severity Reaction Status Date / Time grass pollen Allergy Mild unknown Verified 10/14/21 13:09 tree and shrub pollen Allergy Mild itchy Verified 10/14/21 13:09 eyes, sneeze, runny nose Review of Systems Sugical H&P ROS: Negative: Constitution, Cardiovascular, Respiratory, Neurological, Psychiatric, Hem-Onc, Allergic/Immunologic, Gastrointestinal, Genitourinary, Musculoskeletal, Integumentary, Endocrine and Eyes/Ears/Nose/Throat Exam Surgical H&P Exam: Normal: HEENT, Normal: Heart, Normal: Lungs, Normal: Extremities, Normal: Abdomen, Normal: Skin and Normal: Neurological Plan Diagnosis/Plan: Unchanged I have reviewed the history and physical and performed a pertinent physical examination on my patient. No changes have occurred unless specified.
[2021-10-30] VITALS (17 sets, daily range): BP systolic 94–174; BP diastolic 42–81; PULSE 52–80; RESP 17–20; TEMP 36.1–36.6; O2SAT 94–98
--- NOTE | ~2021-10-30 | FL_ITS ---
EXAMINATION: XR FLUOROSCOPY WITH IMAGES CLINICAL INFORMATION: Spinal implant. COMPARISON: 08/26/2021 TECHNIQUE: Fluoroscopy performed by Dr. Chino Gates. Fluoroscopy time: 2.5 minutes. Cumulative Dose: 88.7 mGy. DAP: 24.1 Gy-cm2. Images: 4. FINDINGS: Intraoperative fluoroscopy was performed for placement of spinal implant. On AP film, it is difficult to evaluate tip position due to lowest-most vertebral bodies having ribs present, and I cannot be sure of the level of L1. On the provided imaging, if the lower vertebral body with ribs is counted as T12, then the higher lead is seen at the superior aspect of the T8 vertebral body with the inferior lead seen with its tip at the T8-T9 disc space level. The lowest sternal wire present is noted to be broken. FL/FL guidance in OR IMPRESSION: Intraoperative fluoroscopy for pain management procedure.
[2021-10-30 06:29] LABS: Glucose, Whole Blood 141 mg/dL (60-115)
[2021-10-30] MEDS: Lactated Ringers 1,000 ML 50 ML IVCONT (06:32)
--- NOTE | 2021-10-30 07:35 | W.PM.OPN ---
Operative Note Operative Note Date of Service: 10/30/21 Narrative: Malik is very pleasant 71 years old gentleman who came today into the operating room for implantation of spinal cord stimulator for the treatment of chronic pain syndrome, spondylosis of lumbar spine, disc degeneration lumbar.. Preoperatively patient received ?cefazolin 3 g approximately 30 minutes before the procedure. After obtaining informed consent the patient was brought to the operating room, HE was supine on the stretcher? [employer] monitors were applied and general anesthesia was induced with endotracheal intubation. After that patient was transferred to the operating table prone all pressure points were protected. ?Time-out was performed delineating correct site, side, the nature of the procedure, patient's allergy, preoperative antibiotic if needed.? All operating room staff was participating in OR time-out procedure Patient's entire back was prepped with ChloraPrep twice and draped with full body fenestrated drape and ioban film.? Sterilely draped C-arm was brought over operating field and square picture of? T12-L1 and [id number] as were demonstrated on the screen.? The skin was? infiltrated with the mixture of lidocaine 2% and ropivacaine 0.5% in the projection of m L1 and L2? spinouse procesess.?? After that? number 10 Blade scalpel was used to perform strict midline 7 cm? long incision.? the incision was widened and deepened until the prevertebral fascia was reached. Thorough hemostasis was obtained,? After that attention? was concentrated on the T12-L1 epidural interspace.? The location of the projection of the right pedicle center of the? L2 vertebra was found on the fascia using C-arm.? This location was injected with mixture of lidocaine 2% and Marcaine 0.5% 5 cc.? ? 10 cm 14 gauge? introducer epidural needle was inserted through the prevertebral fascia and advanced to? T12-L1 epidural interspace.? The advancement of the needle was performed on anterior posterior and lateral views.? Guitar wire and loss of resistance technique were used to locate epidural space.? When guitar wire was spread in the epidural fashion, epidural lead was inserted through the needle and it was advanced to the posterior epidural space.The lead was advanced? slightly right from the midline? approximately to the? top of T8 vertebra in the posterior epidural space. ? After that location of the projection of the LEFT pedicle center of the L2 vertebra was found using C-arm.? This location was injected with mixture of lidocaine 2% and Marcaine 0.5% 5 cc.?10 cm 14 gauge? introducer epidural needle was inserted through the fascia and advanced to T12-L1 epidural interspace.? The advancement of the needle was performed on anterior posterior and lateral views.? Guitar wire and loss of resistance technique were used to locate epidural space.? When guitar wire was spread in the epidural fashion, epidural lead was inserted through the needle.? Loss of resistance to air technique and guitar wire were used to locate epidural space. After that the? epidural lead was advanced? slightly left to the midline? to the top of the? T9 vertebra in the posterior epidural space slightly left to the existing electrode.? ? After satisfactory position of the leads were established the needles were withdrawn, the stylette wires were removed from the epidural leads.? The anchoring devices were dislodged on the leads and advanced to the level of the prevertebral fascia.?After that the anchoring devices were sutured to the prevertebral fascia using Tycron 0-0 sutures - 2 sutures per each anchoroing device?. The fixation scews were locked until 3 clicks heard. The wound was irrigated with vancomycin containing saline and packed with the 4x4 soaked with the same saline solution. After that attention was concentrated on the right upper buttock of the patient ? were the decision was made to implant the battery.? 3 cm below the top of the right iliac crest horizontal incision was made 6.5 cm long using 10 blade scalpel, hemostasis was performed using? electric cautery..? Using sharp and dull dissection pocket for the battery was formed in caudad direction from the incision.? Thorough hemostasis was performed.? After that the? wound pocket was? irrigated with vancomycin containing normal saline and tunneling device was used to connect midline incision and upper buttock incision Tunneling device was used to connect the two wounds.? The epidural leads were dislodged from midline incision to the flank incision through the tunneling device.? After that they were connected to the Mobilligyia battery? and impedance was checked? and found to be satisfactory with all leads connected.? Anchoring? screws were fixed on the back of the battery.? Tycron of 0- 0 sutures were applied to the superior lateral and superior medial corners of the upper portion of the pocket? wound and after that the anchoring sutures were connected to the anchoring orifices on the battery.? Electrodes were gathered behind the body of the battery and battery was dislodged into the? subcutaneous pocket wound.? The sutures were tied and? irrigation was repeated.? After that?0-0 Polysorb sutures? used to close the? both wounds and the 0-2 polisorb sutures were used to apptoximate the level of the skin , Filiberto were applied to the skin and bacitracin ointment was applied to the staple lines. The sterile dressing comprised of several 4x4 for each wound was affixed to the skin using medipore tape.. The patient was transfered supine on the stretcher,? awaken, and transferred stable to the PACU.
--- NOTE | 2021-10-30 07:37 | P.BOP_ITS ---
Brief Operative Note Date of Service: 10/30/21 Pre-op diagnosis: Chronic pain syndrome, spondylosis of lumbar spine, disc degeneration lumbar spine. Post-op diagnosis: same Procedure: Implantation of Nevro spinal cord stimulator battery omnia and 2 epidural leads. Implants: As above Surgeon: Chino Gates MD Anesthesia: GETA Was an Public Health Program Manager used for this Procedure?: No Estimated blood loss (mL): 15 Pathology: none sent Condition: stable Disposition: PACU
[2021-10-30] MEDS: fentaNYL citrate/PF 100 MCG/2 ML VIAL 50 MCG IVPUSH ×2 (13:06→13:23)
[2021-10-30] MEDS: oxyCODONE HCl Immed Release 5 MG TABLET PO (13:07)
== END 2021-10-30 14:20 | disposition home or self-care (01) ==
PROVIDERS: PCP Internal Medicine; Visit Provider Anesthesiology
PROC: (CPT 63685; principal; 2021-10-30 07:30)
DX: M47.817 Spondylosis without myelopathy or radiculopathy, lumbosacral region (principal); M51.36 Other intervertebral disc degeneration, lumbar region; G89.29 Other chronic pain; M47.812 Spondylosis without myelopathy or radiculopathy, cervical region; E11.22 Type 2 diabetes mellitus with diabetic chronic kidney disease; I13.0 Hypertensive heart and chronic kidney disease with heart failure and stage 1 through stage 4 chronic kidney disease, or unspecified chronic kidney disease; N18.30 Chronic kidney disease, stage 3 unspecified; I50.9 Heart failure, unspecified; I71.4 Abdominal aortic aneurysm, without rupture; G25.0 Essential tremor; Z87.891 Personal history of nicotine dependence; Z79.4 Long term (current) use of insulin; I48.91 Unspecified atrial fibrillation; Z79.01 Long term (current) use of anticoagulants; R43.0 Anosmia; G47.33 Obstructive sleep apnea (adult) (pediatric); Z98.84 Bariatric surgery status; J30.1 Allergic rhinitis due to pollen; Z79.51 Long term (current) use of inhaled steroids; Z79.82 Long term (current) use of aspirin; Z79.899 Other long term (current) drug therapy; Z99.89 Dependence on other enabling machines and devices
CPT/HCPCS: 63685; 63650 ×2; 82947; C1713; C1778; C1787; C1816; J0131; J0330; J0690; J1100; J2250; J2405; J2795; J3010; J3370

== ENCOUNTER → 2021-11-05 10:30 | Outpatient (BNVA) | payer MEDICARE, MEDICAID, SELFPAY | PROVIDERS: PCP Internal Medicine; Visit Provider Anesthesiology | DX: M47.817 Spondylosis without myelopathy or radiculopathy, lumbosacral region (principal); M51.36 Other intervertebral disc degeneration, lumbar region; G89.29 Other chronic pain | CPT/HCPCS: 99212 ==

== ENCOUNTER → 2021-11-12 10:43 | Outpatient (BNVA) | payer MEDICARE, MEDICAID, SELFPAY | PROVIDERS: PCP Internal Medicine; Visit Provider Anesthesiology | DX: M47.817 Spondylosis without myelopathy or radiculopathy, lumbosacral region (principal); M51.36 Other intervertebral disc degeneration, lumbar region; G89.29 Other chronic pain | CPT/HCPCS: 99212 ==

== ENCOUNTER → 2021-11-16 11:18 | Outpatient (BNVA) | payer MEDICARE, MEDICAID, SELFPAY | PROVIDERS: PCP Internal Medicine; Visit Provider Anesthesiology | DX: Z48.01 Encounter for change or removal of surgical wound dressing (principal) | CPT/HCPCS: 99211 ==

== ENCOUNTER → 2022-04-19 12:42 | Outpatient (BNVA) | payer MEDICARE, MEDICAID, SELFPAY | PROVIDERS: PCP Internal Medicine; Visit Provider Internal Medicine Gastroenterology | DX: R13.10 Dysphagia, unspecified (principal); F43.10 Post-traumatic stress disorder, unspecified | CPT/HCPCS: 99212 ==

== ENCOUNTER → 2022-05-05 11:50 | Outpatient (BNVA) | payer MEDICARE, MEDICAID, SELFPAY | PROVIDERS: PCP Internal Medicine; Visit Provider Anesthesiology ==

== ENCOUNTER 2022-06-21 18:14 | Emergency (ER) | payer MEDICARE, MEDICAID, SELFPAY ==
--- NOTE | ~2022-06-21 | US_ITS ---
EXAMINATION: US ABDOMEN LIMITED CLINICAL INFORMATION: Right upper quadrant pain. COMPARISON: None available. TECHNIQUE: Real-time imaging of the right upper quadrant abdominal viscera. FINDINGS: PANCREAS: Obscured by overlying bowel gas LIVER: Diffusely increased hepatic echotexture possibly due to underlying fatty infiltration. No focal hepatic lesion. There is no intrahepatic biliary duct dilatation seen. GALLBLADDER: Patient was tender on imaging the gallbladder. There is gallbladder wall thickening measuring up to 0.8 cm in thickness. Cannot exclude tiny gallstones although these do not demonstrate significant shadowing. Tiny amount of pericholecystic fluid suggested. COMMON BILE DUCT: Normal in caliber measuring 0.3 cm in diameter. RIGHT KIDNEY: 1.9 cm mid pole hypoechoic possibly complex cyst No hydronephrosis. No renal calculi or focal parenchymal lesions. The kidney measures 11.2 cm in maximum dimension. FREE FLUID: None. US/US abdomen limited IMPRESSION: Patient was tender on imaging the gallbladder. There is gallbladder wall thickening and a small amount of pericholecystic fluid. Cannot exclude tiny gallstones although these do not demonstrate significant shadowing. No biliary ductal dilatation.
[2022-06-21 18:28] VITALS: BP 135/97; BP 149/80; PULSE 56; PULSE 65; RESP 16; TEMP 36.7; O2SAT 94; O2SAT 96; BMI 35.0
--- NOTE | 2022-06-21 18:37 | PC.NURSE ---
pt alert orientedx3. Reporting 6/10 RUQ abd pain. Pain was 10/10 earlier, 50mcg fentanyl IV by EMS has reduced pain to 6/10. Abdomen soft and tender to deep palpation. Pt has cardiac hx and reports 9 MIs. Pt hx Afib and takes Xarelto. Afib on monitor. Vitals otherwise stable.
--- NOTE | 2022-06-21 18:57 | ED.ABDPAIN ---
HPI - Abdominal Pain General Chief Complaint: Abdominal Pain Stated Complaint: R ABD PAIN,NO BM IN 2 DAYS PER EMS Time Seen by Provider: 06/21/22 18:40 Source: patient Mode of arrival: EMS Limitations: no limitations History of Present Illness HPI narrative: right upper abdominal pain for a few hours, diaphoresis, no vomiting, no diarrhea. patient has a history of gastric sleeve bypass surgery. MD elicited complaint: abdominal pain Onset (ago): hour(s) Pain Consistency: now resolved Location: RUQ Severity: moderate Related Data Home Medications Medication Instructions Recorded Confirmed aspirin 81 mg tablet,delayed 81 mg PO DAILY 04/02/20 05/05/22 release (Adult Aspirin Regimen) azelastine 137 mcg (0.1 %) nasal 1 spray intranasal BID 04/02/20 05/05/22 spray aerosol baclofen 20 mg tablet 20 mg PO TID 04/02/20 05/05/22 bupropion HCl 300 mg 24 hr tablet, 300 mg PO QAM 04/02/20 05/05/22 extended release calcium carbonate 600 mg calcium 600 mg PO BID 04/02/20 05/05/22 (1,500 mg) tablet cholecalciferol (vitamin D3) 25 25 mcg PO DAILY 04/02/20 05/05/22 mcg (1,000 unit) capsule docusate sodium 100 mg capsule 200 mg PO BID 04/02/20 05/05/22 finasteride 5 mg tablet 5 mg PO DAILY 04/02/20 05/05/22 fluticasone propionate 50 1 spray intranasal DAILY 04/02/20 05/05/22 mcg/actuation nasal spray,suspension hydroxyzine HCl 25 mg tablet 25 mg PO BID PRN Anxiety 04/02/20 05/05/22 lidocaine HCl 4 % topical cream 1 appl topical QID PRN Pain 04/02/20 05/05/22 (Aspercreme (lidocaine HCl)) lisinopril 5 mg tablet 5 mg PO BEDTIME 04/02/20 05/05/22 rivaroxaban 20 mg tablet (Xarelto) 20 mg PO BEDTIME 04/02/20 05/05/22 rosuvastatin 40 mg tablet 40 mg PO DAILY 04/02/20 05/05/22 sertraline 25 mg tablet 75 mg PO BEDTIME 04/02/20 05/05/22 tamsulosin 0.4 mg capsule 0.4 mg PO BEDTIME 04/02/20 05/05/22 torsemide 20 mg tablet 20 mg PO DAILY 04/02/20 05/05/22 amitriptyline 75 mg tablet 2 tab PO BEDTIME 05/05/20 05/05/22 multivitamin-ferrous 1 tab PO QAM 05/05/20 05/05/22 fumarate-folic acid 18 mg-400 mcg tablet (Cerovite Advanced Formula) clonazepam 0.5 mg tablet 0.5 mg PO BID 05/26/20 05/05/22 ipratropium bromide 42 mcg (0.06 1 intranasal BEDTIME 05/26/20 05/05/22 %) nasal spray nitroglycerin 0.4 mg sublingual 0.4 mg sublingual ONCE PRN Chest 05/26/20 05/05/22 tablet Pain pen needle, diabetic 32 gauge x #50 ea 05/26/20 05/05/22 zolpidem 10 mg tablet 10 mg PO BEDTIME PRN Sleep 05/26/20 05/05/22 dapagliflozin 10 mg tablet 10 mg PO QAM 10/31/20 05/05/22 ([facility]) escitalopram oxalate 10 mg tablet 10 mg PO DAILY 10/31/20 05/05/22 metoprolol succinate 25 mg 12.5 mg PO DAILY 10/31/20 05/05/22 tablet,extended release 24 hr pilocarpine HCl 5 mg tablet 5 mg PO BID 10/31/20 05/05/22 primidone 250 mg tablet 250 mg PO DAILY 10/31/20 05/05/22 spironolactone 25 mg tablet 25 mg PO DAILY 10/31/20 05/05/22 cetirizine 10 mg tablet 1 tab PO DAILY 04/07/21 05/05/22 mirtazapine 7.5 mg tablet 1 tab PO BEDTIME 04/07/21 05/05/22 prazosin 5 mg capsule 1 cap PO BEDTIME 04/07/21 05/05/22 isosorbide mononitrate 60 mg 1.5 tab PO QAM 04/20/21 05/05/22 tablet,extended release 24 hr melatonin 5 mg tablet 2 tab PO BEDTIME 04/20/21 05/05/22 sertraline 50 mg tablet 1.5 tab PO BEDTIME 02/28/22 03/15/23 calcium carbonate 600 mg-vitamin 1 tab PO 09/07/21 05/05/22 D3 10 mcg (400 unit) tablet dulaglutide 4.5 mg/0.5 mL 4.5 mg subcut QWEEK 09/07/21 05/05/22 subcutaneous pen injector (Trulicity) hydroxyzine pamoate 25 mg capsule 25 mg PO anxiety 09/07/21 05/05/22 polyethylene glycol 3350 17 gram 17 g PO DAILY 09/07/21 05/05/22 oral powder packet (Miralax) pseudoephedrine HCl 120 mg 120 mg PO Q12H 09/07/21 05/05/22 tablet,extended release sucralfate 1 gram tablet 1 g PO 09/07/21 05/05/22 xylitol 550 mg mucosal adhesive mg mucous membrane 10/30/21 05/05/22 tablet (XyliMelts) gabapentin 300 mg capsule 300 mg PO DAILY 11/12/21 05/05/22 Previous Rx's Medication Instructions Recorded sucralfate 100 mg/mL oral 10 ml PO BID 30 days #600 mL 02/06/20 suspension (Carafate) naloxone 4 mg/actuation nasal 4 mg intranasal Q2M #2 ea 05/06/20 spray (Narcan) methylnaltrexone 150 mg tablet 450 mg PO QAM #90 tabs 11/18/20 (Relistor) cephalexin 500 mg capsule 1,000 mg PO Q8H 15 days #90 caps 10/30/21 naloxone 4 mg/actuation nasal spray 4 mg intranasal Q3M PRN opioid 10/30/21 overdose 1 day #2 ea oxycodone 10 mg tablet 10 mg PO Q6H PRN pain 4 days #16 10/30/21 tabs esomeprazole magnesium 40 mg 40 mg PO BID #60 caps 04/19/22 capsule,delayed release saliva substitute comb no.10 1 packet mucous membrane QID PRN 04/19/22 (Neutrasal mucosal powder in dry mouth #30 ea packet) zinc gluconate 50 mg tablet 50 mg PO QAM #30 tabs 04/25/22 ondansetron 4 mg disintegrating 4 mg PO Q8H PRN nausea and 06/21/22 tablet vomiting 5 days #20 tabs pantoprazole 40 mg tablet,delayed 40 mg PO DAILY #20 tabs 06/21/22 release (Protonix) Allergies Allergy/AdvReac Type Severity Reaction Status Date / Time grass pollen Allergy Mild unknown Verified 05/05/22 12:13 tree and shrub pollen Allergy Mild itchy Verified 05/05/22 12:13 eyes, sneeze, runny nose Review of Systems Review of Systems Yes all other systems are reviewed and are negative Gastrointestinal: Reports abdominal pain PMFSH Past Medical History Medical History AAA (abdominal aortic aneurysm) Arrhythmia Benign essential tremor CAD (coronary artery disease) Cardiac arrest CHF (congestive heart failure) Chronic renal insufficiency CVA (cerebral vascular accident) Disc degeneration, lumbar Elevated cholesterol History of ischemic cardiomyopathy HTN (hypertension) IDDM (insulin dependent diabetes mellitus) Lumbago of lumbar region with sciatica Mood disorder Myocardial infarction On anticoagulant therapy On beta ruddy at home PVD (peripheral vascular disease) Sleep apnea 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, 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 Surgical History History of colonoscopy History of hernia repair History of PTCA History of surgery Hx of CABG Hx of endoscopy Hx of gastric bypass Hx of parathyroidectomy Family History Family History Father Hx of congenital heart disease Mother Hx of heat stroke Social History Social History Are you a primary physician primary care sports medicine to a significant other at home: No Alcohol intake: never Patient Tobacco Use Status: Former Tobacco user Quit Date: Tobacco use type: Cigarette Smoked in Last 30 Days: No Second Hand Smoke Exposure: No Use of substances other than those prescribed or required for medical reasons: No Advance Directives: No Advance Directives Information Provided: Yes Physical Exam ED Vital Signs: Vital Signs - 24 hr 06/21/22 18:28 06/21/22 20:54 Temperature 98.0 F 97.9 F Pulse Rate 65 75 Respiratory Rate 16 18 Blood Pressure 149/80 H 111/64 Pulse Oximetry 94 95 Oxygen Delivery Method Room Air Room Air BMI result Body Mass Index 35.0 Const Nutritional Appearance: obese Orientation/consciousness: oriented to person and patient oriented x3 Limitations: no limitations HENMT Head: Yes normal to inspection Ears: external ears normal General nose exam: Normal external nose present Mouth: Normal oral and palatal mucosa present and oropharynx normal Throat: Yes posterior oropharynx normal Eyes General: appearance normal, both eyes and all related structures Neck Neck: Yes normal visual inspection Chest Other: open heart scar Resp Auscultation: clear to auscultation bilaterally Cardio Jugular venous distension: no JVD Rate: regular rate Rhythm: regular rhythm Heart sounds: S1 normal heart sound present and S2 normal heart sound present GI Inspection: Yes normal to inspection Palpation (GI): Soft to palpation, nontender and No hepatosplenomegaly present Auscultation: normal bowel sounds General: Yes no CVA tenderness Back/Spine/Pelvis Back: no CVA tenderness Skin General skin exam: no rashes or lesions noted Neuro General: oriented to person and patient oriented x3 Cranial nerves: Yes CN's II-XII intact bilaterally Motor exam (neuro): 5/5 motor strength present throughout Extrem General: Yes normal to inspection Psych Appearance: grossly normal Course Reevaluation(s) Reevaluation #1: patient is currently pain free, there is no obvious gallstones but he has an obstructive pattern likely representing the passing of a gallstone Time: 21:12 Medical Decision Making Differential Diagnosis Differential Diagnoses: The differential diagnosis associated with the presentation includes (biliary colic, ascending cholangitis, gallstones, hepatitis, UTI, renal colic were all considered) Admission/Observation Consideration of admission/observation: Escalation of care including admission/observation considered (in this 72 yo male with CAD, AAA, gastric sleeve, admission was considered upon arrival. No stones seen on US and pain is gone will dc home with follow up with surgeon) Lab Data MDM Lab Attestation statement: I reviewed the patient's lab results. 06/21/22 19:22 06/21/22 19:22 Labs: Lab Results 06/21/22 06/21/22 Range/Units 19:22 19:22 WBC 10.2 (4.8-10.8) X10*3/uL RBC 5.18 (4.60-5.80) X10*6/uL Hgb 13.5 L (14.0-18.0) g/dl Hct 43.5 (42.0-52.0) % MCV 84.0 (80.0-98.0) fL MCH 26.1 L (27.0-33.0) pg MCHC 31.0 (31.0-36.0) g/dl RDW 16.8 H (11.0-16.0) % Plt Count 183 (160-400) X10*3/uL MPV 11.2 (9.4-12.4) fL Immature Gran % (Auto) 0.4 (0.0-0.4) % Neut % (Auto) 81.4 H (45-73) % Lymph % (Auto) 11.5 L (20-40) % [place] % (Auto) 5.3 (2-11) % Eos % (Auto) 0.9 (0-4) % Baso % (Auto) 0.5 (0-2) % Lymph # (Auto) 1.2 (1.2-4.9) X10*3/uL [place] # (Auto) 0.5 (0.1-1.2) X10*3/uL Eos # (Auto) 0.1 (0.0-0.4) X10*3/uL Baso # (Auto) 0.1 (0.0-0.2) X10*3/uL Abs Immat Gran (auto) 0.04 H (0.00-0.03) X10*3/uL Absolute Neuts (auto) 8.3 (2.0-8.3) x10*3/uL Absolute Nucleated RBC 0.000 (0.0-0.012) X10*3/uL Nucleated RBC % (auto) 0.0 (0.0-0.2) /100WBC Sodium 143 (135-145) mmol/L Potassium 4.7 (3.3-5.1) mmol/L Chloride 103 (96-108) mmol/L Carbon Dioxide 29 (22-29) mmol/L Anion Gap 16 (12-20) BUN 23 H (9-16) mg/dL Creatinine 1.33 (0.5-1.4) mg/dL Estim Creat Clear Calc 60.5 Estimated GFR 53 Random Glucose 223 H (60-115) mg/dL Calcium 9.2 (8.4-10.2) mg/dL Total Bilirubin 2.1 H (0.0-1.0) mg/dL AST 91 H (5-37) U/L ALT 45 H (0-40) U/L Alkaline Phosphatase 126 H (39-117) U/L Total Protein 6.5 (6.5-8.0) g/dL Albumin 4.0 (3.5-5.0) g/dL Lipase 504 H (8-78) U/L Independent Interpretation I performed an independent interpretation of an: Ultrasound (My reading showed question of gallstone at the neck) Radiology Impression Discussion of test interpretation with radiology: I have reviewed the radiologist's reading. (no stone at the neck) Chronic Conditions Patient?s care impacted by: Hypertension Social Determinants Patient?s care significantly limited by Social Determinants of Health including: Alcoholism and drug addiction in family Discharge Plan Discharge Clinical Impression: Biliary colic Patient Disposition: Home, Self-Care Instructions: Biliary Colic (ED) Prescriptions: New pantoprazole [Protonix] 40 mg tablet,delayed release (DR/EC) 40 mg PO DAILY Qty: 20 0RF ondansetron 4 mg tablet,disintegrating 4 mg PO Q8H PRN (Reason: nausea and vomiting) 5 Days Qty: 20 0RF No Action sucralfate [Carafate] 100 mg/mL suspension 10 ml PO BID 30 Days Qty: 600 1RF Narcan 4 mg/actuation spray,non-aerosol 4 mg intranasal Q2M Qty: 2 0RF Rx Instructions: spray 1 dose into ONE nostril; alternate nostrils w each dose until help arrives Relistor 150 mg tablet 450 mg PO QAM Qty: 90 3RF cephalexin 500 mg capsule 1,000 mg PO Q8H 15 Days Qty: 90 1RF Rx Instructions: take OTC probiotics 25 billion cultures in between the doses of antibiotics with food oxycodone 10 mg tablet 10 mg PO Q6H PRN (Reason: pain) 4 Days Qty: 16 0RF Rx Instructions: Partial Fill upon patient request. Do not take the medication within 2 hours of HS. naloxone 4 mg/actuation spray,non-aerosol 4 mg intranasal Q3M PRN (Reason: opioid overdose) 1 Days Qty: 2 4RF Rx Instructions: spray 1 dose into ONE nostril; alternate nostrils w each dose until help arrives zinc gluconate 50 mg tablet 50 mg PO QAM Qty: 30 3RF amitriptyline 75 mg tablet 2 tab PO BEDTIME Cerovite Advanced Formula 18-400 mg-mcg tablet 1 tab PO QAM cetirizine 10 mg tablet 1 tab PO DAILY prazosin 5 mg capsule 1 cap PO BEDTIME mirtazapine 7.5 mg tablet 1 tab PO BEDTIME isosorbide mononitrate 60 mg tablet extended release 24 hr 1.5 tab PO QAM sertraline 50 mg tablet 1.5 tab PO BEDTIME melatonin 5 mg tablet 2 tab PO BEDTIME XyliMelts 550 mg muco-adhesive buccal tablet MUCOUS MEMBRANE lidocaine HCl [Aspercreme (lidocaine HCl)] 4 % cream 1 appl topical QID PRN (Reason: Pain) aspirin [Adult Aspirin Regimen] 81 mg tablet,delayed release (DR/EC) 81 mg PO DAILY azelastine 137 mcg (0.1 %) aerosol,spray 1 spray intranasal BID Rx Instructions: administer into each nostril baclofen 20 mg tablet 20 mg PO TID bupropion HCl 300 mg tablet extended release 24 hr 300 mg PO QAM calcium carbonate 600 mg calcium (1,500 mg) tablet 600 mg PO BID cholecalciferol (vitamin D3) 25 mcg (1,000 unit) capsule 25 mcg PO DAILY docusate sodium 100 mg capsule 200 mg PO BID finasteride 5 mg tablet 5 mg PO DAILY fluticasone propionate 50 mcg/actuation spray,suspension 1 spray intranasal DAILY Rx Instructions: administer into each nostril hydroxyzine HCl 25 mg tablet 25 mg PO BID PRN (Reason: Anxiety) lisinopril 5 mg tablet 5 mg PO BEDTIME Xarelto 20 mg tablet 20 mg PO BEDTIME Rx Instructions: must administer with evening meal rosuvastatin 40 mg tablet 40 mg PO DAILY sertraline 25 mg tablet 75 mg PO BEDTIME tamsulosin 0.4 mg capsule 0.4 mg PO BEDTIME torsemide 20 mg tablet 20 mg PO DAILY zolpidem 10 mg tablet 10 mg PO BEDTIME PRN (Reason: Sleep) ipratropium bromide 42 mcg (0.06 %) spray,non-aerosol 1 intranasal BEDTIME nitroglycerin 0.4 mg tablet, sublingual 0.4 mg sublingual ONCE PRN (Reason: Chest Pain) (DME) pen needle, diabetic 32 gauge x 5/32 needle See Rx Instructions .ROUTE .MEDSUPPLY Qty: 50 Rx Instructions: As directed clonazepam 0.5 mg tablet 0.5 mg PO BID escitalopram oxalate 10 mg tablet 10 mg PO DAILY pilocarpine HCl 5 mg tablet 5 mg PO BID metoprolol succinate 25 mg tablet extended release 24 hr 12.5 mg PO DAILY Farxiga 10 mg tablet 10 mg PO QAM spironolactone 25 mg tablet 25 mg PO DAILY primidone 250 mg tablet 250 mg PO DAILY Neutrasal Powder In Packet 1 packet mucous membrane QID PRN (Reason: dry mouth) Qty: 30 1RF Rx Instructions: mix in 30 mL water; swish 15 mL for 1 min ; spit out/do not swallow; repeat with remaining 15 mL esomeprazole magnesium 40 mg capsule,delayed release(DR/EC) 40 mg PO BID Qty: 60 2RF polyethylene glycol 3350 [Miralax] 17 gram powder in packet 17 g PO DAILY calcium carbonate-vitamin D3 600 mg-10 mcg (400 unit) tablet 1 tab PO hydroxyzine pamoate 25 mg capsule 25 mg PO sucralfate 1 gram tablet 1 g PO pseudoephedrine HCl 120 mg tablet extended release 120 mg PO Q12H Trulicity 4.5 mg/0.5 mL pen injector 4.5 mg subcut QWEEK gabapentin 300 mg capsule 300 mg PO DAILY Referrals: Gordon Mills MD [Primary Care Provider] - 5 days
[2022-06-21 19:27] LABS: MANUAL DIFF FLAG NO
[2022-06-21 19:28] LABS: Basophils Absolute Auto 0.1 X10*3/uL (0.0-0.2); Basophils Percent Auto 0.5 % (0-2); Eosinophils Absolute Auto 0.1 X10*3/uL (0.0-0.4); Eosinophils Percent Auto 0.9 % (0-4); Hematocrit 43.5 % (42.0-52.0); Hemoglobin 13.5 g/dl (14.0-18.0); Imm Gran Abs Auto 0.04 X10*3/uL (0.00-0.03); Imm Gran Pct Auto 0.4 % (0.0-0.4); Lymphocytes Absolute Auto 1.2 X10*3/uL (1.2-4.9); Lymphocytes Percent Auto 11.5 % (20-40); Mean Corpuscular Hemoglobin 26.1 pg (27.0-33.0); Mean Platelet Volume 11.2 fL (9.4-12.4); Monocytes Absolute Auto 0.5 X10*3/uL (0.1-1.2); Monocytes Percent Auto 5.3 % (2-11); Neutrophils Absolute Auto 8.3 x10*3/uL (2.0-8.3); Neutrophils Percent Auto 81.4 % (45-73); Platelet Count 183 X10*3/uL (160-400); Red Blood Count 5.18 X10*6/uL (4.60-5.80); Red Cell Distribution Width 16.8 % (11.0-16.0); White Blood Count 10.2 X10*3/uL (4.8-10.8)
[2022-06-21 19:56] LABS: Alanine Aminotransferase 45 U/L (0-40); Alkaline Phosphatase 126 U/L (39-117); Anion Gap 16 (12-20); Aspartate Amino Transferase 91 U/L (5-37); Bilirubin Total 2.1 mg/dL (0.0-1.0); Blood Urea Nitrogen 23 mg/dL (9-16); Calcium 9.2 mg/dL (8.4-10.2); Carbon Dioxide 29 mmol/L (22-29); Chloride 103 mmol/L (96-108); Creatinine Clr Calc Pharmacy 60.5; Estimated Glomerular Filt Rate 53; Glucose Random 223 mg/dL (60-115); Potassium 4.7 mmol/L (3.3-5.1); Sodium 143 mmol/L (135-145); Total Protein 6.5 g/dL (6.5-8.0)
[2022-06-21 19:57] LABS: Lipase 504 U/L (8-78)
[2022-06-21 20:54] VITALS: BP 111/64; PULSE 75; RESP 18; TEMP 36.6; O2SAT 95
[2022-06-21 21:42] LABS: Appearance Urine Clear; Color Urine Yellow; Glucose Urine UA >=1000 mg/dL (Negative); Leukocyte Esterase Urine Negative (Negative); Nitrite Urine Negative (Negative); PH 5.5 (5.0-9.0); UMIC TRIGGER UACC YES; Urine Blood Negative (Negative); Urine Ketones Negative (Negative); Urine Protein Negative (Neg-Trace)
[2022-06-21 21:47] LABS: Bacteria Urine None Seen (None Seen); Hyaline Casts Urine 0-2 /LPF (0-2); RBC Urine 0-2 /HPF (0-2); Squamous Epithelial Cell Urine 0-2 /HPF (0-2); WBC Urine 0-5 /HPF (0-5)
== END 2022-06-21 21:53 | disposition home or self-care (01) ==
PROVIDERS: Emergency Provider Emergency Medicine; PCP Internal Medicine
DX: K80.50 Calculus of bile duct without cholangitis or cholecystitis without obstruction (principal); R10.11 Right upper quadrant pain; Z98.84 Bariatric surgery status; Z79.899 Other long term (current) drug therapy
CPT/HCPCS: 36415; 76705; 80053; 81001; 83690; 85025; 99284

== ENCOUNTER → 2022-07-05 14:30 | Outpatient (BNVA) | payer MEDICARE, MEDICAID, SELFPAY | PROVIDERS: PCP Internal Medicine; Visit Provider Anesthesiology | DX: M54.2 Cervicalgia (principal); M51.36 Other intervertebral disc degeneration, lumbar region; M47.817 Spondylosis without myelopathy or radiculopathy, lumbosacral region; G89.29 Other chronic pain; Z96.82 Presence of neurostimulator | CPT/HCPCS: 99212 ==

== ENCOUNTER 2022-07-23 08:02 | Outpatient (REF) | payer MEDICARE, MEDICAID, SELFPAY ==
--- NOTE | ~2022-07-23 | US_ITS ---
EXAMINATION: US ABDOMEN COMPLETE CLINICAL INFORMATION: Chronic abdominal pain. COMPARISON: Ultrasound abdomen limited 06/21/2022. Ultrasound kidneys and bladder 06/05/2020. CT abdomen and pelvis 12/24/2013. TECHNIQUE: Real-time imaging of the abdominal viscera. FINDINGS: PANCREAS: Largely obscured by overlapping bowel gas. ABDOMINAL AORTA: There is aneurysmal dilatation 6.3 x 5.6 cm. An aortic stent graft is noted. INFERIOR VENA CAVA: Visualized portions are normal. LIVER: The liver is normal in size. The liver contour is normal. There is diffuse increased liver parenchymal echogenicity. No focal hepatic lesion. There is no intrahepatic biliary duct dilatation seen. GALLBLADDER: The gallbladder is physiologically distended. Multiple mobile gallstones are present. There is gallbladder wall thickening to 7 mm. The gallbladder wall appears edematous. COMMON BILE DUCT: Normal in caliber measuring 0.3 cm in diameter. RIGHT KIDNEY: At the lower pole, a 1.1 cm in maximal diameter benign, simple cyst is seen. No hydronephrosis or renal calculi. The kidney measures 10.4 cm in maximum dimension. LEFT KIDNEY: At the lower pole, a 6 mm in maximal diameter benign, simple cyst is seen. No hydronephrosis or renal calculi. The kidney measures 11.6 cm in maximum dimension. SPLEEN: There are vascular calcifications. The spleen measures 11.0 cm in maximum dimension. FREE FLUID: None. US/US abdomen complete IMPRESSION: 1. There is cholelithiasis, and cholecystitis is seen, possibly chronic. 2. There are benign, simple bilateral renal cysts, for which no imaging follow-up is recommended. 3. An abdominal aortic aneurysm is noted, as above. There has been a prior stent graft placement. 4. Technically limited ultrasound examination of the pancreas.
== END 2022-07-23 08:03 | disposition home or self-care (01) ==
LOC: HO.US 08:02
PROVIDERS: PCP Internal Medicine; Visit Provider Internal Medicine
DX: R10.9 Unspecified abdominal pain (principal)
CPT/HCPCS: 76700

== ENCOUNTER 2022-07-27 05:59 | Outpatient (REF) | payer MEDICARE, MEDICAID, SELFPAY ==
--- NOTE | ~2022-07-27 | FL_ITS ---
EXAMINATION: XR FLUOROSCOPY WITH IMAGES CLINICAL INFORMATION: Spondylosis without myelopathy or radiculopathy, lumbosacral region. COMPARISON: None available. TECHNIQUE: Fluoroscopy Supervised By: Dr. Gates. Fluoroscopy Time: 0.9 minutes. Cumulative Dose: 14.3 mGy. DAP: 0.248 Gycm2. Images: 8. FINDINGS: Images demonstrate needle placement and contrast injection adjacent to the bilateral lateral L3 L3 L4 and L5 vertebral bodies. Aortobiiliac stent graft and 2 leads coursing superiorly over the lumbar spine are noted. FL/FL guidance in treatment room IMPRESSION: Fluoroscopy guidance for pain management
== END 2022-07-27 06:00 | disposition home or self-care (01) ==
LOC: CF 05:59
PROVIDERS: Visit Provider Anesthesiology
DX: M47.817 Spondylosis without myelopathy or radiculopathy, lumbosacral region (principal); M51.36 Other intervertebral disc degeneration, lumbar region; G89.29 Other chronic pain
CPT/HCPCS: 64493; 64494; J2795; J3301

== ENCOUNTER 2022-08-10 10:27 | Outpatient (REF) | payer MEDICARE, MEDICAID, SELFPAY ==
[2022-08-10 11:39] LABS: MANUAL DIFF FLAG NO
[2022-08-10 12:55] LABS: Basophils Absolute Auto 0.1 X10*3/uL (0.0-0.2); Basophils Percent Auto 0.6 % (0-2); Eosinophils Absolute Auto 0.1 X10*3/uL (0.0-0.4); Eosinophils Percent Auto 1.2 % (0-4); Hematocrit 47.4 % (42.0-52.0); Imm Gran Abs Auto 0.04 X10*3/uL (0.00-0.03); Imm Gran Pct Auto 0.4 % (0.0-0.4); Lymphocytes Absolute Auto 2.3 X10*3/uL (1.2-4.9); Lymphocytes Percent Auto 23.2 % (20-40); Mean Corpuscular HGB Conc 31.6 g/dl (31.0-36.0); Mean Corpuscular Volume 82.1 fL (80.0-98.0); Mean Platelet Volume 11.6 fL (9.4-12.4); Monocytes Absolute Auto 0.6 X10*3/uL (0.1-1.2); Monocytes Percent Auto 6.3 % (2-11); Neutrophils Absolute Auto 6.9 x10*3/uL (2.0-8.3); Neutrophils Percent Auto 68.3 % (45-73); Platelet Count 198 X10*3/uL (160-400); Red Blood Count 5.77 X10*6/uL (4.60-5.80); Red Cell Distribution Width 15.5 % (11.0-16.0); White Blood Count 10.1 X10*3/uL (4.8-10.8)
[2022-08-10 13:04] LABS: Estimated Average Glucose 206 mg/dL; Hemoglobin A1c % 8.8 %
[2022-08-10 13:58] LABS: Alanine Aminotransferase 49 U/L (0-40); Albumin Level 4.3 g/dL (3.5-5.0); Alkaline Phosphatase 193 U/L (39-117); Anion Gap 16 (12-20); Aspartate Amino Transferase 31 U/L (5-37); Bilirubin Total 0.6 mg/dL (0.0-1.0); Blood Urea Nitrogen 24 mg/dL (9-16); Calcium 9.3 mg/dL (8.4-10.2); Carbon Dioxide 26 mmol/L (22-29); Chloride 100 mmol/L (96-108); Estimated Glomerular Filt Rate > 60; Glucose Random 220 mg/dL (60-115); Lipase 35 U/L (8-78); Potassium 4.8 mmol/L (3.3-5.1); Sodium 137 mmol/L (135-145); Total Protein 7.6 g/dL (6.5-8.0)
== END 2022-08-10 10:28 | disposition home or self-care (01) ==
LOC: HO.LAB 10:27
PROVIDERS: PCP Internal Medicine; Referring Provider Internal Medicine; Visit Provider Surgery
DX: K80.20 Calculus of gallbladder without cholecystitis without obstruction (principal); E11.9 Type 2 diabetes mellitus without complications; G25.0 Essential tremor; G89.29 Other chronic pain; M47.812 Spondylosis without myelopathy or radiculopathy, cervical region; M47.817 Spondylosis without myelopathy or radiculopathy, lumbosacral region; Z98.84 Bariatric surgery status
CPT/HCPCS: 36415; 80053; 83036; 83690; 84134; 85025; 99202

== ENCOUNTER → 2022-08-17 11:26 | Outpatient (BNVA) | payer MEDICARE, MEDICAID, SELFPAY | PROVIDERS: PCP Internal Medicine; Visit Provider Surgery | DX: K85.90 Acute pancreatitis without necrosis or infection, unspecified (principal); K76.0 Fatty (change of) liver, not elsewhere classified; K80.20 Calculus of gallbladder without cholecystitis without obstruction; E11.65 Type 2 diabetes mellitus with hyperglycemia; E11.22 Type 2 diabetes mellitus with diabetic chronic kidney disease; N18.9 Chronic kidney disease, unspecified; Z79.01 Long term (current) use of anticoagulants | CPT/HCPCS: 99212 ==

== ENCOUNTER 2022-08-20 15:22 | Outpatient (REF) | payer MEDICARE, MEDICAID, SELFPAY ==
--- NOTE | ~2022-08-20 | CT_ITS ---
EXAMINATION: CT ABDOMEN AND PELVIS WITH CONTRAST CLINICAL INFORMATION: Acute pancreatitis without necrosis or infection. COMPARISON: CT of the abdomen and pelvis done on 12/24/2013. TECHNIQUE: Multidetector volumetric images were obtained from the superior aspect of the liver through the pubic symphysis following administration 85 mL of Omnipaque 350 intravenous contrast. Sagittal and coronal reformatted images were obtained on the technologist's workstation. Oral contrast: No This CT examination was performed using dose optimization techniques as appropriate, variously including the following: *Automated exposure control *Adjustment of mA and/or kV according to patient size (this includes techniques or standardized protocols for targeted exams where dose is matched to indication/reason for exam; i.e. extremities or head) *Use of iterative reconstruction technique DLP: 714.4 mGy-cm FINDINGS: LUNG BASES: Multiple calcified stable presumed granulomas are noted bilaterally, similar to prior study dated 12/24/2013. Postop changes of sternotomy and CABG are noted, unchanged. No evidence of any pleural or pericardial effusion. LIVER, GALLBLADDER, AND BILIARY TREE: The liver is normal in size, shape, and attenuation. No focal hepatic lesion or biliary ductal dilatation is present. Multiple layering radiopaque calculi are present with subtle apparent gallbladder wall thickening and without any pericholecystic fluid. PANCREAS: Unremarkable. SPLEEN: Unremarkable. ADRENAL GLANDS: Unremarkable. KIDNEYS AND URETERS: The kidneys are normal in size, shape, and attenuation. No hydronephrosis, hydroureter, or calculi seen. No perinephric stranding. BLADDER: Unremarkable. GASTROINTESTINAL TRACT: Significant fecal residual is noted within the large bowel. No evidence of any bowel obstruction present. Postsurgical changes are noted in the stomach in the form of sleeve gastrectomy. The appendix is well-visualized and is unremarkable at right iliac fossa. No evidence of any bowel wall thickening. Incidental note is made of 1.2 cm hypodensity along the gastrocolic ligament to the right of the midline at right upper abdomen (see the gale images), may represent the gastrocolic lymph node versus evolving peritoneal and/or omental metastatic disease if this patient has any known primary, new since 12/24/2013. ABDOMINAL WALL: No significant hernia is appreciated. LYMPH NODES: There are no pathologically enlarged retroperitoneal, pelvic, mesenteric and/or inguinal, groin lymphadenopathy. VASCULAR: Diffuse calcific atherosclerotic disease of the aorta and superimposed infrarenal abdominal aortic aneurysm is noted measuring 5.3 x 4.5 cm. Note is also made of presence of palpable by common iliac stent graft, appear in good position. The aneurysm is seen extending into the left common iliac artery measuring approximately 3.2 cm at its maximum transverse dimension. The overall size of the aneurysm and the appearance is relatively stable except for 2 to 3 mm interval increase since 12/24/2013. PELVIC VISCERA: The prostate is enlarged, protruding into the base of the bladder. Parenchymal calcification is noted. There is no pelvic mass present. No evidence of any free fluid and/or free air. OSSEOUS STRUCTURES: Persistent mild mid to anterior compression deformity of L4 and mild diffuse osteopenia, similar to prior study dated 12/24/2013. CT/CT abdomen pelvis w IV con IMPRESSION: 1. No CT evidence of any acute intra-abdominal and/or intrapelvic pathology. Specifically, no CT evidence of any acute pancreatitis is present. 2. Incidental note is made of layering calcified gallstones, shows significant interval increase in number since the prior study dated 12/24/2013. Note is also made of subtle gallbladder wall thickening without any pericholecystic fluid, subtle early changes of acute cholecystitis may have similar appearance. Please correlate clinically. 3. Postsurgical changes of sleeve gastrectomy, new since prior study. 4. Interval development of a solitary 1.2 cm solid lesion seen within the gastrohepatic ligament at right upper quadrant of the abdomen anteriorly, may represent a lymph node versus evolving peritoneal and/or omental metastatic disease in this patient has any known primary, new since 12/24/2013. 5. Infrarenal abdominal aortic aneurysm, currently measures 5.3 x 4.5 cm, shows interval increase in size by 2 to 3 mm since the prior study dated 12/24/2013. Note is also made of presence of aortic stent graft, similar to 12/24/2013. 6. Persistent stable mild mid to anterior compression deformity of L4 and mild diffuse osteopenia, unchanged since 12/24/2013. Fleischner guidelines were followed.
[2022-08-20] MEDS: Barium Sulfate Oral (Berry) 450 ML ORAL.SUSP 900 ML PO (17:57)
[2022-08-20] MEDS: iohexoL 350 MG/ML 100 ML INFUS..BTL 85 ML IV (17:57)
== END 2022-08-20 15:23 | disposition home or self-care (01) ==
LOC: HO.CT 15:22
PROVIDERS: PCP Internal Medicine; Visit Provider Surgery
DX: K80.20 Calculus of gallbladder without cholecystitis without obstruction (principal); E11.65 Type 2 diabetes mellitus with hyperglycemia; K76.0 Fatty (change of) liver, not elsewhere classified; K85.90 Acute pancreatitis without necrosis or infection, unspecified; N18.9 Chronic kidney disease, unspecified; Z79.01 Long term (current) use of anticoagulants; Z98.84 Bariatric surgery status
CPT/HCPCS: 74177; Q9967

== ENCOUNTER → 2022-08-27 13:08 | Outpatient (BNVA) | payer MEDICARE, MEDICAID, SELFPAY | PROVIDERS: PCP Internal Medicine; Visit Provider Surgery | DX: K80.20 Calculus of gallbladder without cholecystitis without obstruction (principal); E11.65 Type 2 diabetes mellitus with hyperglycemia; N18.9 Chronic kidney disease, unspecified; K85.90 Acute pancreatitis without necrosis or infection, unspecified; I71.40 Abdominal aortic aneurysm, without rupture, unspecified; K76.0 Fatty (change of) liver, not elsewhere classified; Z79.01 Long term (current) use of anticoagulants | CPT/HCPCS: 99212 ==

== ENCOUNTER 2022-08-30 14:19 | Outpatient (AMB) | payer MEDICARE, MEDICAID, SELFPAY ==
--- NOTE | 2022-08-30 14:20 | MHC.OFFVIS ---
Intake Vital Signs 08/30/22 14:25 Height 5 ft 7.5 in Weight 217 lb BMI 33.5 BP 132/74 Blood Pressure Location Lt brachial Position Sitting Respiration 16 Pulse 65 Pulse Source Pulse Oximeter Pulse Oximetry (%) 96 Oxygen Delivery Method Room Air Intake Visit Reasons: BILAT [id number] STEROID MBB 07/27/22 Intake Note: patient comes in for post op. Allergies grass pollen Allergy (Mild, Verified 08/30/22 14:24) unknown tree and shrub pollen Allergy (Mild, Verified 08/30/22 14:24) itchy eyes, sneeze, runny nose HPI HPI Comments History of Present Illness Details Malik?is under observation in my office with multiple pain generators.? He he had implantation of the SCS Nevro on 10/30/2021. He reports moderate improvement of he has pain when spinal cord stimulator is working. He reports good pain relieve while he is at rest. However when he starts to move especially bend forward he reports pain exacerbation. In the past he had twice radiofrequency ablation and it was working ?like a miracle ?according to the patient. But 3rd procedure resulted in no improvement. He had L2-L3 L4 dorsal ramus L5 therapeutic medial branch block with me on 07/27/2022. That injection resulted only in 24 hours of pain improvement. . His pain is mostly axial with radiation into the lateral flanks. He denies radiation of the pain into bilateral lower extremity. I offered him therapeutic medial branch block in the attempt to help his pain better. I offered him today to consider intrathecal drug delivery system pain pump we will send him brochure about I DDD. Prior: ? He is complaining on cervicalgia cervical pain, he is complaining now on pain with swallowing and odynophagia, continues to complain on pain in the lower back.? Also continues to complain on new pain in the mid back in the projection of the thoracic spine.? In the past he received radiofrequency ablation of medial branches L3 L4-5 bilateral by and after him by me.? He reported excellent pain relieve each time for 2 years.? However repetition of the procedure this time resulted in?no?pain relieve and actually some pain aggravation.? We discussed possibility of treatment of his axial pain with Nevro spinal cord stimulator.? He was approved by psychological evaluation and he had a trial of SCS Nevro by Dr. Schmitt.? He reported 75% pain improvement he wants to proceed with implantation of the Nevro spinal cord stimulator. In the past he had bilateral therapeutic C2-C3 C4 MBB he underwent on 09/02/2020 :? He reports 100% relief from the time he had the procedure performed until today.? This constitutes almost 6 months of the pain relief.? He states ?it was a miracle as he has full range of motion of the neck with almost complete alleviation of his pain.? He reports occasional stiffness in the morning but resolves throughout the day.? He is quite satisfied with the result of the procedure. He also went for radiofrequency ablation C4-C5 C6 bilateral medial branches.? He reports 75% of the pain relief mostly in the lower cervical areas.? He reports that upper cervical areas are not affected by the injection.? He reports that alignment of his neck with round objects to increase the cervical lordosis alleviates his pain temporarily.? He requests me to repeat this procedures well.? However unfortunately we have to wait with this procedure after implantation of Nevro spinal cord stimulator and 8 weeks more because history stratton of the steroids during the RFA actually might compromise healing of the position of the epidural leads in posterior epidural space. His complains on odynophagia was evaluated by our teacher adventure education Dr. Gonzalez.? The patient was sent for cervical CT scan which demonstrated anterior spondylitic spurs compressing posterior suffer this.? Unfortunately nothing short of surgical removal of those spondylolytic elevations could help his pain.? He has already too much on his table to deal with done the surgery will not be major priority.? I recommended him to consume softer food [facility] Medical History AAA (abdominal aortic aneurysm) Arrhythmia Benign essential tremor CAD (coronary artery disease) Cardiac arrest CHF (congestive heart failure) Chronic renal insufficiency CVA (cerebral vascular accident) Disc degeneration, lumbar Elevated cholesterol History of ischemic cardiomyopathy HTN (hypertension) IDDM (insulin dependent diabetes mellitus) Lumbago of lumbar region with sciatica Mood disorder Myocardial infarction On anticoagulant therapy On beta ruddy at home PVD (peripheral vascular disease) Sleep apnea 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, 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 Surgical History History of colonoscopy History of hernia repair History of PTCA History of surgery Hx of CABG Hx of endoscopy Hx of gastric bypass Hx of parathyroidectomy Family History Father Hx of congenital heart disease Mother Hx of heat stroke Social History Are you a primary care management coordinator to a significant other at home: No Alcohol intake: current Alcohol intake frequency: holidays/special occasions only Patient Tobacco Use Status: Former Tobacco user Quit Date: Tobacco use type: Cigarette Second Hand Smoke Exposure: No Review of Systems Const All systems reviewed & are unremarkable except as noted in HPI and below ENT Reports Normal hearing present Neuro Reports Normal hearing present and Denies Abnormal speech present Physical Exam Vital Signs: Last Vital Signs Pulse 65 08/30/22 14:25 Resp 16 08/30/22 14:25 BP 132/74 08/30/22 14:25 Pulse Ox 96 08/30/22 14:25 Oxygen Delivery Method Room Air 08/30/22 14:25 BMI result Body Mass Index 33.5 Const General: cooperative, no acute distress, alert and well groomed Orientation/consciousness: patient oriented x3 HEENT Head: Yes normocephalic and Yes atraumatic Ears: hearing grossly normal bilaterally Eyes General: appearance normal, both eyes and all related structures Eyelids: Yes eyelids normal Pupils: Equal, round and reactive pupils present EOM: EOMs intact bilaterally Neck Neck: Yes normal visual inspection and Yes no JVD Resp Effort & Inspection: normal respiratory effort, able to speak in complete sentences and no audible wheezes Cardio Jugular venous distension: no JVD Back/Spine/Pelvis Other: Tenderness of palpation paraspinal spinal region in the entire spine cervical thoracic and lumbar. SLR is negative with foot dorsiflexion. Neuro General: patient oriented x3 and moves all extremities Cranial nerves: Yes Equal, round and reactive pupils present and Yes Normal hearing present Cognition (Neuro): normal cognition Speech: No Abnormal speech present Psych Appearance: grossly normal Mental Status: mental status grossly normal Speech and movement: Normal speech and movement present Affect: normal affect Attitude: cooperative Thought process: Normal thought process present Thought content: Normal thought content present Insight: Good insight present (Psych) Judgement: Good judgement present (Psych) Assessment & Plan Assessment & Plan (1) Spondylosis of lumbosacral spine without myelopathy: Code(s): M47.817 - Spondylosis without myelopathy or radiculopathy, lumbosacral region (2) Disc degeneration, lumbar: Code(s): M51.36 - Other intervertebral disc degeneration, lumbar region (3) Chronic pain: Code(s): G89.29 - Other chronic pain Plan Implant of SCS was performed for the patient. He reports moderate help with spinal cord stimulator while at rest however with movements he reported significant exacerbation of the pain. In the past he received twice RFA of the L3-L4 does ramus L5 medial branches. On 07/27/2022 he received diagnostic and therapeutic medial branch block L2-L3 L4 does ramus L5. Unfortunately these injections resulted in no pain improvement longer than 24 hours. We discussed the situation today and I offered him I DDD. If he will agree I will send him for psych evaluation to schedule him for the trial. I am thinking about performing bupivacaine trial 1st. Coding Level of Care Code Est Pt Level 3 (17499) Diagnoses Spondylosis of lumbosacral spine without myelopathy M47.817 Disc degeneration, lumbar M51.36 Chronic pain G89.29
[2022-08-30 14:25] VITALS: BP 132/74; PULSE 65; RESP 16; O2SAT 96; BMI 33.5
== END 2022-08-30 14:55 | disposition home or self-care (01) ==
PROVIDERS: PCP Internal Medicine; Visit Provider Anesthesiology
DX: M47.817 Spondylosis without myelopathy or radiculopathy, lumbosacral region (principal); M51.36 Other intervertebral disc degeneration, lumbar region; G89.29 Other chronic pain
CPT/HCPCS: 99213

== ENCOUNTER → 2022-08-30 14:19 | Outpatient (BNVA) | payer MEDICARE, MEDICAID, SELFPAY | PROVIDERS: PCP Internal Medicine; Visit Provider Anesthesiology | DX: M51.36 Other intervertebral disc degeneration, lumbar region (principal); M47.812 Spondylosis without myelopathy or radiculopathy, cervical region; M47.817 Spondylosis without myelopathy or radiculopathy, lumbosacral region; G89.29 Other chronic pain; Z96.82 Presence of neurostimulator | CPT/HCPCS: 99212 ==

== ENCOUNTER 2022-09-23 12:53 | Outpatient (REF) | payer MEDICARE, MEDICAID, SELFPAY ==
[2022-09-23 15:06] LABS: Amylase 32 U/L (28-100); Lipase 11 U/L (8-78)
== END 2022-09-23 12:54 | disposition home or self-care (01) ==
LOC: HO.CHCLDS 12:53
PROVIDERS: Visit Provider Student in an Organized Health Care Education/Training Program
DX: R74.01 Elevation of levels of liver transaminase levels (principal)
CPT/HCPCS: 36415; 82150; 83690

== ENCOUNTER → 2022-09-30 14:46 | Outpatient (BNVA) | payer MEDICARE, MEDICAID, SELFPAY | PROVIDERS: PCP Internal Medicine; Visit Provider Anesthesiology ==

== ENCOUNTER 2022-10-04 14:00 | Outpatient (AMB) | payer MEDICARE, MEDICAID, SELFPAY ==
--- NOTE | 2022-10-04 14:10 | A.OFFVIS_ITS ---
Intake Vital Signs 10/04/22 14:11 Height 5 ft 7.5 in Weight 217 lb BMI 33.5 BP 136/68 Blood Pressure Location Lt brachial Position Sitting Respiration 16 Pulse 63 Pulse Source Pulse Oximeter Pulse Oximetry (%) 99 Oxygen Delivery Method Room Air Intake Visit Reasons: PAIN PUMP TRIAL DISCUSSION Allergies grass pollen Allergy (Mild, Verified 10/04/22 14:12) unknown tree and shrub pollen Allergy (Mild, Verified 10/04/22 14:12) itchy eyes, sneeze, runny nose PFSH Medical History AAA (abdominal aortic aneurysm) Arrhythmia Benign essential tremor CAD (coronary artery disease) Cardiac arrest CHF (congestive heart failure) Chronic renal insufficiency CVA (cerebral vascular accident) Disc degeneration, lumbar Elevated cholesterol History of ischemic cardiomyopathy HTN (hypertension) IDDM (insulin dependent diabetes mellitus) Lumbago of lumbar region with sciatica Mood disorder Myocardial infarction On anticoagulant therapy On beta ruddy at home PVD (peripheral vascular disease) Sleep apnea 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, 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 Surgical History History of colonoscopy History of hernia repair History of PTCA History of surgery Hx of CABG Hx of endoscopy Hx of gastric bypass Hx of parathyroidectomy Family History Father Hx of congenital heart disease Mother Hx of heat stroke Social History Are you a primary physician assistant primary care to a significant other at home: No Alcohol intake: current Alcohol intake frequency: holidays/special occasions only Patient Tobacco Use Status: Former Tobacco user Quit Date: Tobacco use type: Cigarette Second Hand Smoke Exposure: No Physical Exam Vital Signs: Last Vital Signs Pulse 63 10/04/22 14:11 Resp 16 10/04/22 14:11 BP 136/68 10/04/22 14:11 Pulse Ox 99 10/04/22 14:11 Oxygen Delivery Method Room Air 10/04/22 14:11 BMI result Body Mass Index 33.5 Assessment & Plan Assessment & Plan Orders: Orders MR lumbar spine wo con Today G89.29 - Other chronic pain, M47.817 - Spondylosis without myelopathy or radiculopathy, lumbosacral region, M49.86 - 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, lumbar region, M51.36 - Other intervertebral disc degeneration, lumbar region, M54.40 - Lumbago with sciatica, unspecified side Coding Diagnoses
[2022-10-04 14:11] VITALS: BP 136/68; PULSE 63; RESP 16; O2SAT 99; BMI 33.5
--- NOTE | 2022-10-04 14:12 | A.OFFVIS_ITS ---
Intake Vital Signs 10/04/22 14:11 Height 5 ft 7.5 in Weight 217 lb BMI 33.5 BP 136/68 Blood Pressure Location Lt brachial Position Sitting Respiration 16 Pulse 63 Pulse Source Pulse Oximeter Pulse Oximetry (%) 99 Oxygen Delivery Method Room Air Intake Visit Reasons: PAIN PUMP TRIAL DISCUSSION Allergies grass pollen Allergy (Mild, Verified 10/04/22 14:12) unknown tree and shrub pollen Allergy (Mild, Verified 10/04/22 14:12) itchy eyes, sneeze, runny nose HPI HPI Comments History of Present Illness Details Malik?is under observation in my office with multiple pain generators.? He he had implantation of the SCS Nevro on 10/30/2021. He reports moderate improvement of he has pain when spinal cord stimulator is working. He reports good pain relieve while he is at rest. However when he starts to move especially bend forward he reports pain exacerbation. In the past he had twice radiofrequency ablation and it was working ?like a miracle ?according to the patient. But 3rd procedure resulted in no improvement. He had L2-L3 L4 dorsal ramus L5 therapeutic medial branch block with me on 07/27/2022. That injection resulted only in 24 hours of pain improvement. . His pain is mostly axial with radiation into the lateral flanks. He denies radiation of the pain into bilateral lower extremity. I offered him therapeutic medial branch block in the attempt to help his pain better. I offered him to consider intrathecal drug delivery system pain pump . He went for psychological evaluation 2 days ago wasting waiting for the results of the psychological evaluation. Meanwhile I will offer the patient to have an MRI of the lumbar spine to re-evaluate the lumbar spine. Possibility exists that his pain is vertebra genic in nature. I will evaluate the MRI and if it is vertebra genic pain I will offer him intercept procedure. It is possible than that the solution will be found in definitive treatment of his pain. ? He is complaining on cervicalgia cervical pain, he is complaining now on pain with swallowing and odynophagia, continues to complain on pain in the lower back.? Also continues to complain on new pain in the mid back in the projection of the thoracic spine.? In the past he received radiofrequency ablation of medial branches L3 L4-5 bilateral by and after him by me.? He reported excellent pain relieve each time for 2 years.? However repetition of th e procedure this time resulted in?no?pain relieve and actually some pain aggravation.? We discussed possibility of treatment of his axial pain with Nevro spinal cord stimulator.? He was approved by psychological evaluation and he had a trial of SCS Nevro by Dr. Schmitt.? He reported 75% pain improvement he wants to proceed with implantation of the Nevro spinal cord stimulator. In the past he had bilateral therapeutic C2-C3 C4 MBB he underwent on 09/02/2020 :? He reports 100% relief from the time he had the procedure performed until today.? This constitutes almost 6 months of the pain relief.? He states ?it was a miracle as he has full range of motion of the neck with almost complete alleviation of his pain.? He reports occasional stiffness in the morning but resolves throughout the day.? He is quite satisfied with the result of the procedure. He also went for radiofrequency ablation C4-C5 C6 bilateral medial branches.? He reports 75% of the pain relief mostly in the lower cervical areas.? He reports that upper cervical areas are not affected by the injection.? He reports that alignment of his neck with round objects to increase the cervical lordosis alleviates his pain temporarily.? He requests me to repeat this procedures well.? However unfortunately we have to wait with this procedure after implantation of Nevro spinal cord stimulator and 8 weeks more because history stratton of the steroids during the RFA actually might compromise healing of the position of the epidural leads in posterior epidural space. His complains on odynophagia was evaluated by our vocational rehabilitation specialist Dr. Gonzalez.? The patient was sent for cervical CT scan which demonstrated anterior spondylitic spurs compressing posterior suffer this.? Unfortunately nothing short of surgical removal of those spondylolytic elevations could help his pain.? He has already too much on his table to deal with done the surgery will not be major priority.? I recommended him to consume softer food [facility] Medical History AAA (abdominal aortic aneurysm) Arrhythmia Benign essential tremor CAD (coronary artery disease) Cardiac arrest CHF (congestive heart failure) Chronic renal insufficiency CVA (cerebral vascular accident) Disc degeneration, lumbar Elevated cholesterol History of ischemic cardiomyopathy HTN (hypertension) IDDM (insulin dependent diabetes mellitus) Lumbago of lumbar region with sciatica Mood disorder Myocardial infarction On anticoagulant therapy On beta ruddy at home PVD (peripheral vascular disease) Sleep apnea 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, 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 Surgical History History of colonoscopy History of hernia repair History of PTCA History of surgery Hx of CABG Hx of endoscopy Hx of gastric bypass Hx of parathyroidectomy Family History Father Hx of congenital heart disease Mother Hx of heat stroke Social History Are you a primary respiratory care instructor to a significant other at home: No Alcohol intake: current Alcohol intake frequency: holidays/special occasions only Patient Tobacco Use Status: Former Tobacco user Quit Date: Tobacco use type: Cigarette Second Hand Smoke Exposure: No Review of Systems Const All systems reviewed & are unremarkable except as noted in HPI and below ENT Reports Normal hearing present Neuro Reports Normal hearing present and Denies Abnormal speech present Physical Exam Vital Signs: Last Vital Signs Pulse 63 10/04/22 14:11 Resp 16 10/04/22 14:11 BP 136/68 10/04/22 14:11 Pulse Ox 99 10/04/22 14:11 Oxygen Delivery Method Room Air 10/04/22 14:11 BMI result Body Mass Index 33.5 Const General: cooperative, no acute distress, alert and well groomed Orientation/consciousness: patient oriented x3 HEENT Head: Yes normocephalic and Yes atraumatic Ears: hearing grossly normal bilaterally Eyes General: appearance normal, both eyes and all related structures Eyelids: Yes eyelids normal Pupils: Equal, round and reactive pupils present EOM: EOMs intact bilaterally Neck Neck: Yes normal visual inspection and Yes no JVD Resp Effort & Inspection: normal respiratory effort, able to speak in complete sentences and no audible wheezes Cardio Jugular venous distension: no JVD Back/Spine/Pelvis Other: Tenderness of palpation paraspinal spinal region in the entire spine cervical thoracic and lumbar. SLR is negative with foot dorsiflexion. Neuro General: patient oriented x3 and moves all extremities Cranial nerves: Yes Equal, round and reactive pupils present and Yes Normal hearing present Cognition (Neuro): normal cognition Speech: No Abnormal speech present Psych Appearance: grossly normal Mental Status: mental status grossly normal Speech and movement: Normal speech and movement present Affect: normal affect Attitude: cooperative Thought process: Normal thought process present Thought content: Normal thought content present Insight: Good insight present (Psych) Judgement: Good judgement present (Psych) Assessment & Plan Assessment & Plan (1) Spondylosis of lumbosacral spine without myelopathy: Code(s): M47.817 - Spondylosis without myelopathy or radiculopathy, lumbosacral region (2) Disc degeneration, lumbar: Code(s): M51.36 - Other intervertebral disc degeneration, lumbar region (3) Chronic pain: Code(s): G89.29 - Other chronic pain Plan Implant of SCS was performed for the patient. He reports moderate help with spinal cord stimulator while at rest however with movements he reported significant exacerbation of the pain. In the past he received twice RFA of the L3-L4 does ramus L5 medial branches. On 07/27/2022 he received diagnostic and therapeutic medial branch block L2-L3 L4 does ramus L5. Unfortunately these injections resulted in no pain improvement longer than 24 hours. We discussed the situation today and I offered him I DDD. He went for psychological evaluation. Meanwhile I would like to evaluate his MRI without contrast. If there are significant Modic type changes of type 1 and type 2 this patient can be offered intercept procedure for vertebro genic pain. Orders: Orders MR lumbar spine wo con Today G89.29 - Other chronic pain, M47.817 - Spondylosis without myelopathy or radiculopathy, lumbosacral region, M49.86 - 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, lumbar region, M51.36 - Other intervertebral disc degeneration, lumbar region, M54.40 - Lumbago with sciatica, unspecified side Coding Level of Care Code Est Pt Level 4 (83160) Diagnoses Spondylosis of lumbosacral spine without myelopathy M47.817 Disc degeneration, lumbar M51.36 Chronic pain G89.29
== END 2022-10-04 14:42 | disposition home or self-care (01) ==
PROVIDERS: PCP Student in an Organized Health Care Education/Training Program; Visit Provider Anesthesiology
DX: M47.817 Spondylosis without myelopathy or radiculopathy, lumbosacral region (principal); M51.36 Other intervertebral disc degeneration, lumbar region; G89.29 Other chronic pain; Z96.82 Presence of neurostimulator
CPT/HCPCS: 99214

== ENCOUNTER → 2022-10-04 14:00 | Outpatient (BNVA) | payer MEDICARE, MEDICAID, SELFPAY | PROVIDERS: PCP Student in an Organized Health Care Education/Training Program; Visit Provider Anesthesiology | DX: M51.36 Other intervertebral disc degeneration, lumbar region (principal); M47.812 Spondylosis without myelopathy or radiculopathy, cervical region; M47.817 Spondylosis without myelopathy or radiculopathy, lumbosacral region; G89.29 Other chronic pain | CPT/HCPCS: 99212 ==

== ENCOUNTER 2022-10-08 13:41 | Outpatient (AMB) | payer MEDICARE, MEDICAID, SELFPAY ==
[2022-10-08 13:46] VITALS: BP 123/60; PULSE 55; BMI 34.7
--- NOTE | 2022-10-08 13:46 | A.OFFVIS_ITS ---
Intake Vital Signs 10/08/22 13:46 Height 5 ft 7.5 in Weight 225 lb BMI 34.7 BP 123/60 Blood Pressure Location Rt brachial Position Sitting Pulse 55 Intake Visit Reasons: f/u pancreatitis Intake Note: This patient preseents for an assessment for pancreatitis. Patient c/o; reports no changes or complaints at this time. 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 Required: No [employer]ic Systems Safety Engineer: [employer] Systems Safety Engineer offered & declined Accompanied by: Self / Same As Patient Allergies grass pollen Allergy (Mild, Verified 10/08/22 13:46) unknown tree and shrub pollen Allergy (Mild, Verified 10/08/22 13:46) itchy eyes, sneeze, runny nose Medication List - Last Reconciled 10/08/22 by Armando Johnson MD amitriptyline 2 tabs PO BEDTIME aspirin (Adult Aspirin Regimen) 81 mg PO DAILY azelastine 1 spray intranasal BID baclofen 20 mg PO TID bupropion HCl 300 mg PO QAM calcium carbonate 600 mg PO BID calcium carbonate-vitamin D3 600 mg-10 mcg (400 unit) 1 tab PO cetirizine 1 tab PO DAILY cholecalciferol (vitamin D3) 25 mcg PO DAILY cholecalciferol (vitamin D3) 25 mcg PO QAM clonazepam 0.5 mg PO BID dapagliflozin propanediol (Farxiga) 10 mg PO QAM docusate sodium 200 mg PO BID eplerenone 25 mg PO DAILY escitalopram oxalate 10 mg PO DAILY esomeprazole magnesium 40 mg PO BID famotidine 40 mg PO DAILY finasteride 5 mg PO DAILY fluticasone propionate 50 mcg/actuation 1 spray intranasal DAILY gabapentin 300 mg PO DAILY hydroxyzine HCl 25 mg PO BID PRN ipratropium bromide 1 intranasal BEDTIME isosorbide mononitrate ER 1.5 tabs PO QAM lidocaine HCl 4% (Aspercreme (lidocaine HCl)) 1 appl topical QID PRN lisinopril 5 mg PO BEDTIME melatonin 2 tabs PO BEDTIME methylnaltrexone (Relistor) 450 mg (3 x 150 mg) PO QAM metoprolol succinate ER 50 mg PO QAM mirtazapine 1 tab PO BEDTIME zkcxbtzzqjdb-hudn-vurce acid 18-400 mg-mcg (Cerovite Advanced Formula) 1 tab PO QAM naloxone 4 mg/actuation (Narcan) 4 mg intranasal Q2M nitroglycerin 0.4 mg sublingual ONCE PRN ondansetron 4 mg PO Q8H PRN 5 days oxycodone 10 mg PO Q6H PRN 4 days pantoprazole (Protonix) 40 mg PO DAILY pen needle, diabetic As directed pilocarpine HCl 5 mg PO BID polyethylene glycol 3350 (Miralax) 17 grams PO DAILY prazosin 1 cap PO BEDTIME prazosin 5 mg PO BEDTIME primidone 250 mg PO DAILY pseudoephedrine HCl ER 120 mg PO Q12H rivaroxaban (Xarelto) 20 mg PO BEDTIME rosuvastatin 40 mg PO DAILY saliva substitute comb no.10 (Neutrasal mucosal powder in packet) 1 packet mucous membrane QID PRN sertraline 1.5 tabs PO BEDTIME sertraline 75 mg PO BEDTIME spironolactone 25 mg PO DAILY sucralfate (Carafate) 10 mL PO BID 30 days sucralfate 1 g PO tamsulosin 0.4 mg PO BEDTIME torsemide 20 mg PO DAILY xylitol (XyliMelts) mg mucous membrane zinc gluconate 50 mg PO QAM zolpidem 10 mg PO BEDTIME PRN HPI HPI Comments History of Present Illness Details The patient is a 72-year-old gentleman with a history of type 2 diabetes, obesity, status post laparoscopic sleeve gastrectomy 2016 with peripheral vascular disease including AFib on Xarelto who is seen by way of the emergency department because of an episode of abdominal pain and gallstones. The patient reports an extensive past medical history includes nerve stimulator, hypertension, hypercholesterolemia, history of a CVA, history of an [place], h/o hiatal hernia repair, renal insufficiency, chronic lumbar pain, AAA repair, s/p CABG, AFib requiring Xarelto, chronic GI issues. The patient continues to endorse epigastric and left upper quadrant pain that is not improving. The patient also reports unrelenting thirst and excessive urination. The patient states that his Ozempic has been stopped & he is now on insulin, but he doesn't recall the dose. He states his sugars have been running in the 130-150 range. He states that he is having significant, ongoing back pain. Patient reports continuing, ongoing upper abdominal pain that is constant and not related to food/eating. He voiced concern that he has gained about 10 lb after stopping Ozempic. He denies any worsening with respect to food. He presented on 06/21/2022 to the emergency department with both abdominal pain and constipation and was noted to have elevated LFTs, lipase and ultimately improved and was discharged. The patient is a history of a AAA repair but does not recall whether it was endovascular or open. [facility] Medical History AAA (abdominal aortic aneurysm) Arrhythmia Benign essential tremor CAD (coronary artery disease) Cardiac arrest CHF (congestive heart failure) Chronic renal insufficiency CVA (cerebral vascular accident) Disc degeneration, lumbar Elevated cholesterol History of ischemic cardiomyopathy HTN (hypertension) IDDM (insulin dependent diabetes mellitus) Lumbago of lumbar region with sciatica Mood disorder Myocardial infarction On anticoagulant therapy On beta ruddy at home PVD (peripheral vascular disease) Sleep apnea 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, 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 Surgical History History of colonoscopy History of hernia repair History of PTCA History of surgery Hx of CABG Hx of endoscopy Hx of gastric bypass Hx of parathyroidectomy Family History Father Hx of congenital heart disease Mother Hx of heat stroke Social History Are you a primary career and guidance counselor to a significant other at home: No Alcohol intake: current Alcohol intake frequency: holidays/special occasions only Patient Tobacco Use Status: Former Tobacco user Quit Date: Tobacco use type: Cigarette Second Hand Smoke Exposure: No Review of Systems Const All systems reviewed & are unremarkable except as noted in HPI and below Reports as per HPI Physical Exam Vital Signs: Last Vital Signs Pulse 55 10/08/22 13:46 BP 123/60 10/08/22 13:46 BMI result Body Mass Index 34.7 On exam, he is nontoxic He is anicteric He is in no acute respiratory distress His abdomen remains obese with epigastric and left upper quadrant tenderness with no rebound, rigidity or guarding Results Reviewed Results Reviewed: Labs Patient's hemoglobin A1c is elevated at 8.8 Patient's lipase was elevated at 504; on retest it was down to 35 Patient's ALT is elevated at 49, total bilirubin 0.6 alkaline phosphatase 193 Patient's BUN is elevated at 24, creatinine 1.16 Hemoglobin is 15.0, platelet count 198 K; white blood cell count 10.1 CT of the abdomen and pelvis images and report dated 08/20/2022 are reviewed. Other than gallstones, no mass or evidence of malignancy is noted and no pancreatic inflammation is noted. Abd U/S 07/23/22 shows NAFLD & gallstones Assessment & Plan Assessment & Plan (1) Poorly controlled type 2 diabetes mellitus: Code(s): E11.65 - Type 2 diabetes mellitus with hyperglycemia (2) On anticoagulant therapy: Comment: Xarelto Code(s): Z79.01 - halfway (current) use of anticoagulants (3) Chronic renal insufficiency: Comment: stage 3 Code(s): N18.9 - Chronic kidney disease, unspecified (4) NAFLD (nonalcoholic fatty liver disease): Code(s): K76.0 - Fatty (change of) liver, not elsewhere classified (5) AAA (abdominal aortic aneurysm): Comment: w/repair Code(s): I71.4 - Abdominal aortic aneurysm, without rupture (6) DMII (diabetes mellitus, type 2): Code(s): E11.9 - Type 2 diabetes mellitus without complications (7) Gallstones: Code(s): K80.20 - Calculus of gallbladder without cholecystitis without obstruction (8) S/P laparoscopic sleeve gastrectomy: Code(s): Z98.84 - Bariatric surgery status Plan The patient's amylase and lipase done on 09/23/2022 were both within normal range. The the results are available in the EMR but the patient hand delivered these. Patient voiced significant lumbar back pain that is affecting his life and ability to exercise as well as rest. We discussed his fatty liver disease, diabetes, dietary questions and, again it is unclear whether the patient had pancreatitis due to his Ozempic or passing a gallstone. The importance of attaining better control of his diabetes since his hemoglobin A1c was 8.8 was again discussed. Patient has a follow-up appointment with his PCP November 04 and will see me at the end of October. He did voice that he would prefer to address his ongoing back pain issues before discussing need for cholecystectomy since his pain is not clearly related to his gallbladder. Patient is educated regarding biliary colic and pancreatitis again. I will see him at the end of October and he will contact me before then if he is having problems. Coding Level of Care Code Est Pt Level 4 (02965) Diagnoses Poorly controlled type 2 diabetes mellitus E11.65 On anticoagulant therapy Z79.01 Chronic renal insufficiency N18.9 NAFLD (nonalcoholic fatty liver disease) K76.0 AAA (abdominal aortic aneurysm) I71.4 DMII (diabetes mellitus, type 2) E11.9 Gallstones K80.20 S/P laparoscopic sleeve gastrectomy Z98.84
--- NOTE | 2022-10-08 16:06 | MHC.OFFVIS ---
Intake Vital Signs 10/08/22 13:46 10/08/22 16:09 Height 5 ft 7.5 in Weight 102.058 kg BMI 34.7 34.7 BP 123/60 Blood Pressure Location Rt brachial Position Sitting Pulse 55 Intake Visit Reasons: f/u pancreatitis Allergies grass pollen Allergy (Mild, Verified 10/08/22 13:46) unknown tree and shrub pollen Allergy (Mild, Verified 10/08/22 13:46) itchy eyes, sneeze, runny nose Medication List - Last Reviewed 10/08/22 by ISA Calix amitriptyline 2 tabs PO BEDTIME aspirin (Adult Aspirin Regimen) 81 mg PO DAILY azelastine 1 spray intranasal BID baclofen 20 mg PO TID bupropion HCl 300 mg PO QAM calcium carbonate 600 mg PO BID calcium carbonate-vitamin D3 600 mg-10 mcg (400 unit) 1 tab PO cetirizine 1 tab PO DAILY cholecalciferol (vitamin D3) 25 mcg PO DAILY cholecalciferol (vitamin D3) 25 mcg PO QAM clonazepam 0.5 mg PO BID dapagliflozin propanediol (Farxiga) 10 mg PO QAM docusate sodium 200 mg PO BID eplerenone 25 mg PO DAILY escitalopram oxalate 10 mg PO DAILY esomeprazole magnesium 40 mg PO BID famotidine 40 mg PO DAILY finasteride 5 mg PO DAILY fluticasone propionate 50 mcg/actuation 1 spray intranasal DAILY gabapentin 300 mg PO DAILY hydroxyzine HCl 25 mg PO BID PRN insulin glargine (Basaglar KwikPen U-100 Insulin) 10 units subcut BID ipratropium bromide 1 intranasal BEDTIME isosorbide mononitrate ER 1.5 tabs PO QAM lidocaine HCl 4% (Aspercreme (lidocaine HCl)) 1 appl topical QID PRN lisinopril 5 mg PO BEDTIME melatonin 2 tabs PO BEDTIME methylnaltrexone (Relistor) 450 mg (3 x 150 mg) PO QAM metoprolol succinate ER 50 mg PO QAM mirtazapine 1 tab PO BEDTIME bbkgjmayenjw-ogju-aptkg acid 18-400 mg-mcg (Cerovite Advanced Formula) 1 tab PO QAM naloxone 4 mg/actuation (Narcan) 4 mg intranasal Q2M nitroglycerin 0.4 mg sublingual ONCE PRN ondansetron 4 mg PO Q8H PRN 5 days oxycodone 10 mg PO Q6H PRN 4 days pantoprazole (Protonix) 40 mg PO DAILY pen needle, diabetic As directed pilocarpine HCl 5 mg PO BID polyethylene glycol 3350 (Miralax) 17 grams PO DAILY prazosin 1 cap PO BEDTIME prazosin 5 mg PO BEDTIME primidone 250 mg PO DAILY pseudoephedrine HCl ER 120 mg PO Q12H rivaroxaban (Xarelto) 20 mg PO BEDTIME rosuvastatin 40 mg PO DAILY saliva substitute comb no.10 (Neutrasal mucosal powder in packet) 1 packet mucous membrane QID PRN semaglutide (Ozempic) mg subcut sertraline 1.5 tabs PO BEDTIME sertraline 75 mg PO BEDTIME spironolactone 25 mg PO DAILY sucralfate (Carafate) 10 mL PO BID 30 days sucralfate 1 g PO tamsulosin 0.4 mg PO BEDTIME torsemide 20 mg PO DAILY xylitol (XyliMelts) mg mucous membrane zinc gluconate 50 mg PO QAM zolpidem 10 mg PO BEDTIME PRN PFSH Medical History AAA (abdominal aortic aneurysm) Arrhythmia Benign essential tremor CAD (coronary artery disease) Cardiac arrest CHF (congestive heart failure) Chronic renal insufficiency CVA (cerebral vascular accident) Disc degeneration, lumbar Elevated cholesterol History of ischemic cardiomyopathy HTN (hypertension) IDDM (insulin dependent diabetes mellitus) Lumbago of lumbar region with sciatica Mood disorder Myocardial infarction On anticoagulant therapy On beta ruddy at home PVD (peripheral vascular disease) Sleep apnea 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, 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 Surgical History History of colonoscopy History of hernia repair History of PTCA History of surgery Hx of CABG Hx of endoscopy Hx of gastric bypass Hx of parathyroidectomy Family History Father Hx of congenital heart disease Mother Hx of heat stroke Social History Are you a primary home health care respiratory therapist to a significant other at home: No Alcohol intake: current Alcohol intake frequency: holidays/special occasions only Patient Tobacco Use Status: Former Tobacco user Quit Date: Tobacco use type: Cigarette Second Hand Smoke Exposure: No Physical Exam Vital Signs: Last Vital Signs Pulse 55 10/08/22 13:46 BP 123/60 10/08/22 13:46 BMI result Body Mass Index 34.7 Assessment & Plan Assessment & Plan (1) Poorly controlled type 2 diabetes mellitus: Code(s): E11.65 - Type 2 diabetes mellitus with hyperglycemia (2) On anticoagulant therapy: Comment: Xarelto Code(s): Z79.01 - 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 (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) use of anticoagulants (3) Chronic renal insufficiency: Comment: stage 3 Code(s): N18.9 - Chronic kidney disease, unspecified (4) NAFLD (nonalcoholic fatty liver disease): Code(s): K76.0 - Fatty (change of) liver, not elsewhere classified (5) AAA (abdominal aortic aneurysm): Comment: w/repair Code(s): I71.4 - Abdominal aortic aneurysm, without rupture (6) DMII (diabetes mellitus, type 2): Code(s): E11.9 - Type 2 diabetes mellitus without complications (7) Gallstones: Code(s): K80.20 - Calculus of gallbladder without cholecystitis without obstruction (8) S/P laparoscopic sleeve gastrectomy: Code(s): Z98.84 - Bariatric surgery status Coding Diagnoses Poorly controlled type 2 diabetes mellitus E11.65 On anticoagulant therapy Z79. Chronic renal insufficiency N18.9 NAFLD (nonalcoholic fatty liver disease) K76.0 AAA (abdominal aortic aneurysm) I71.4 DMII (diabetes mellitus, type 2) E11.9 Gallstones K80.20 S/P laparoscopic sleeve gastrectomy Z98.84
[2022-10-08 16:09] VITALS: BMI 34.7
== END 2022-10-08 14:27 | disposition home or self-care (01) ==
PROVIDERS: PCP Student in an Organized Health Care Education/Training Program; Visit Provider Surgery
DX: E11.65 Type 2 diabetes mellitus with hyperglycemia (principal); Z79.01 Long term (current) use of anticoagulants; N18.9 Chronic kidney disease, unspecified; K76.0 Fatty (change of) liver, not elsewhere classified; I71.40 Abdominal aortic aneurysm, without rupture, unspecified; E11.9 Type 2 diabetes mellitus without complications; K80.20 Calculus of gallbladder without cholecystitis without obstruction; Z98.84 Bariatric surgery status
CPT/HCPCS: 99214

== ENCOUNTER → 2022-10-08 13:41 | Outpatient (BNVA) | payer MEDICARE, MEDICAID, SELFPAY | PROVIDERS: PCP Student in an Organized Health Care Education/Training Program; Visit Provider Surgery | DX: K80.20 Calculus of gallbladder without cholecystitis without obstruction (principal); K76.0 Fatty (change of) liver, not elsewhere classified; E11.65 Type 2 diabetes mellitus with hyperglycemia; N18.9 Chronic kidney disease, unspecified; I71.40 Abdominal aortic aneurysm, without rupture, unspecified; Z90.3 Acquired absence of stomach [part of]; Z98.84 Bariatric surgery status; Z79.891 Long term (current) use of opiate analgesic; Z79.01 Long term (current) use of anticoagulants | CPT/HCPCS: 99212 ==

== ENCOUNTER 2022-10-11 12:11 | Outpatient (AMB) | payer MEDICARE, MEDICAID, SELFPAY ==
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
== END 2022-10-11 14:20 | disposition home or self-care (01) ==
LOC: HO.HGI 12:11
PROVIDERS: PCP Student in an Organized Health Care Education/Training Program; Visit Provider Internal Medicine Gastroenterology
DX: R13.10 Dysphagia, unspecified (principal)
CPT/HCPCS: 99442

== ENCOUNTER → 2022-10-11 12:11 | Outpatient (BNVA) | payer MEDICARE, MEDICAID, SELFPAY | PROVIDERS: PCP Student in an Organized Health Care Education/Training Program; Visit Provider Internal Medicine Gastroenterology ==

== ENCOUNTER 2022-10-22 15:27 | Outpatient (REF) | payer MEDICARE, MEDICAID, SELFPAY ==
--- NOTE | ~2022-10-22 | MR_ITS ---
EXAMINATION: MR LUMBAR SPINE WITHOUT CONTRAST CLINICAL INFORMATION: 72-year-old with low back pain, tremors. History of neurostimulator placement in 2021. COMPARISON: None available. TECHNIQUE: MRI of the lumbar spine was obtained using routine sequences without contrast. FINDINGS: CORONAL ALIGNMENT: Mild S-shaped thoracolumbar scoliotic curvature noted, slightly convex to the left at L3-L4 and to the right at T12-L1. SAGITTAL ALIGNMENT: Mild retrolisthesis at L2-L3 and trace anterolisthesis at L4-L5 noted. No spondylolysis. LUMBOSACRAL JUNCTION: Normal. There are 5 ijn-vfo-mnodspr lumbar-type vertebral bodies. VERTEBRAL BODIES: There is quxg-zt-jgtoigwk chronic loss of height with mild anterior wedging of the L4 vertebral body. Otherwise, vertebral body heights are well-maintained. DISC SPACES AND ENDPLATES: Jszb-xg-cpzzheqe disc space height loss at L2-L3 noted with disc desiccation and izhl-mz-qljqpaxz spondylosis. There is disc desiccation at L3-L4 and L4-L5 as well without significant disc height loss. [place] remodeling along the endplates seen throughout the visualized thoracolumbar spine which is nonspecific. SPINAL CANAL: Spinal stimulator electrodes are seen entering the dorsal canal at the L1 level with associated ferromagnetic artifact ascending from the L1 level up to the lowest thoracic level imaged, being T10-T11. Note that the dorsal canal between T10-T11 and T12-L1 is obscured by artifact. BONE MARROW: No significant marrow-replacing process or bone marrow edema. CONUS MEDULLARIS: Terminates at L2. Morphology and signal is normal. INTRADURAL NERVE ROOTS: Within normal limits. L5-S1: Normal annular contour. Moderate bilateral facet arthrosis noted without significant canal or neural foraminal stenosis. L4-L5: Trace anterolisthesis noted with minor posterolateral disc osteophyte complex noted bilaterally and moderate bilateral facet arthropathy with ligamentum flavum thickening. No significant spinal canal stenosis. Mild foraminal narrowing on the right. L3-L4: Minor annular bulging with xhbq-rf-tzaepjaq facet arthropathy left more than right and mild ligamentum flavum thickening without significant canal or neural foraminal stenosis. L2-L3: Mild retrolisthesis noted, with posterolateral disc osteophyte complex bilaterally and slight flattening of the dural sac on both sides of the midline with mild ligamentum flavum thickening and facet arthropathy bilaterally. No significant canal or neural foraminal stenosis. L1-L2: No significant disc bulge or herniation. No significant facet arthrosis, canal or neural foraminal stenosis. Ligamentum flavum thickening noted. PARAVERTEBRAL AND INCLUDED EXTRASPINAL SOFT TISSUES: The paravertebral soft tissue structures appear grossly unremarkable. There is evidence of a previous aortobifemoral bypass graft procedure with maximum AP caliber of the infrarenal abdominal aorta of 4.7 cm, which appears stable in size when compared to previous CT abdomen of 08/20/2022. MR/MR lumbar spine wo con IMPRESSION: 1. Mild S-shaped thoracolumbar scoliotic curvature, with mild retrolisthesis at L2-L3 and trace anterolisthesis at L4-L5. 2. Discogenic degenerative changes most apparent at L2-L3 with associated spondylosis. 3. Multilevel bilateral facet arthropathy and ligamentum flavum thickening with minor disc bulging at L3-L4 and minor posterolateral disc osteophyte complex bilaterally at L4-L5 and L2-L3. No significant spinal canal stenosis. Mild foraminal narrowing on the right at L4-L5 noted without neural impingement. 4. Xptj-tl-tmdanoan chronic loss of height of the L4 vertebral body. 5. Spinal stimulator electrodes in place as described above. 6. Abdominal aortic and iliac findings as noted above. See previous CT of the abdomen of 08/20/2022.
== END 2022-10-22 15:28 | disposition home or self-care (01) ==
LOC: HO.MRI 15:27
PROVIDERS: PCP Student in an Organized Health Care Education/Training Program; Visit Provider Anesthesiology
DX: G89.29 Other chronic pain (principal); M47.817 Spondylosis without myelopathy or radiculopathy, lumbosacral region; M49.86 Spondylopathy in diseases classified elsewhere, lumbar region; M51.36 Other intervertebral disc degeneration, lumbar region; M54.40 Lumbago with sciatica, unspecified side
CPT/HCPCS: 72148

== ENCOUNTER 2022-11-02 06:07 | Outpatient (REF) | payer MEDICARE, MEDICAID, SELFPAY ==
--- NOTE | ~2022-11-02 | FL_ITS ---
EXAMINATION: XR FLUOROSCOPY WITH IMAGES CLINICAL INFORMATION: Other chronic pain. COMPARISON: None available. TECHNIQUE: Fluoroscopy Supervised By: Dr. Chino Gates. Fluoroscopy Time: 0.1 minute. Cumulative Dose: 2.89 mGy. DAP: 0.789 Gycm2. Images: 2. FINDINGS: Image demonstrates posterior needle placement projecting over the spinal canal at the L1-2 level. There are leads in the lower thoracic and upper lumbar spinal canal. There is an aortic stent graft. FL/FL guidance in treatment room IMPRESSION: O guidance for pain management procedure.
== END 2022-11-02 06:08 | disposition home or self-care (01) ==
LOC: CF 06:07
PROVIDERS: Visit Provider Anesthesiology
DX: G89.29 Other chronic pain (principal); M47.817 Spondylosis without myelopathy or radiculopathy, lumbosacral region; M51.36 Other intervertebral disc degeneration, lumbar region
CPT/HCPCS: 62323

== ENCOUNTER 2022-11-02 10:58 | Outpatient (AMB) | payer MEDICARE, MEDICAID, SELFPAY ==
--- NOTE | 2022-11-02 11:11 | MHC.OFFVIS ---
Intake Vital Signs 11/02/22 13:34 11/02/22 13:35 Height 5 ft 7 in 5 ft 7 in Weight 225 lb 225 lb BMI 35.2 35.2 BP 118/66 110/74 Blood Pressure Location Lt brachial Lt brachial Position Sitting Sitting Respiration 16 16 Pulse 64 58 Pulse Source Pulse Oximeter Pulse Oximeter Pulse Oximetry (%) 96 95 Oxygen Delivery Method Room Air Room Air Comment pre-op post-op Intake Visit Reasons: ITDD Trial with Bupivacaine Allergies grass pollen Allergy (Mild, Verified 11/02/22 11:22) unknown tree and shrub pollen Allergy (Mild, Verified 11/02/22 11:22) itchy eyes, sneeze, runny nose PFSH Medical History AAA (abdominal aortic aneurysm) Arrhythmia Benign essential tremor CAD (coronary artery disease) Cardiac arrest CHF (congestive heart failure) Chronic renal insufficiency CVA (cerebral vascular accident) Disc degeneration, lumbar Elevated cholesterol History of ischemic cardiomyopathy HTN (hypertension) IDDM (insulin dependent diabetes mellitus) Lumbago of lumbar region with sciatica Mood disorder Myocardial infarction On anticoagulant therapy On beta ruddy at home PVD (peripheral vascular disease) Sleep apnea 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, 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 Surgical History History of colonoscopy History of hernia repair History of PTCA History of surgery Hx of CABG Hx of endoscopy Hx of gastric bypass Hx of parathyroidectomy Family History Father Hx of congenital heart disease Mother Hx of heat stroke Social History Are you a primary healthcare social worker to a significant other at home: No Alcohol intake: current Alcohol intake frequency: holidays/special occasions only Patient Tobacco Use Status: Former Tobacco user Quit Date: Tobacco use type: Cigarette Second Hand Smoke Exposure: No Physical Exam Vital Signs: Last Vital Signs Pulse 58 11/02/22 13:35 Resp 16 11/02/22 13:35 BP 110/74 11/02/22 13:35 Pulse Ox 95 11/02/22 13:35 Oxygen Delivery Method Room Air 11/02/22 13:35 BMI result Body Mass Index 35.2 Assessment & Plan Assessment & Plan (1) Spondylosis of lumbosacral spine without myelopathy: Code(s): M47.817 - Spondylosis without myelopathy or radiculopathy, lumbosacral region (2) Disc degeneration, lumbar: Code(s): M51.36 - Other intervertebral disc degeneration, lumbar region Plan: Intrathecal pain pump trial Informed consent was explained to the patient. All questions were explained and answered.? The patient was taken inside of the operating room where he was positioned prone on the operating table.? Time-out was performed delineating patient's name and date of , correct site, side, the nature of the procedure, patient's allergy, preoperative antibiotic if needed.? All operating room staff And the patient were participating in OR time-out procedure. ?the patient's lower back was prepped with ChloraPrep and draped with sterile? utility draped.? Sterilely draped C-arm was brought over the operating field and sq picture of? lumbar vertebrae were delineated on the screen. the target of needle insertion was chosen between L2 and L3 vertebrae. The projection of the right lamina of the L3 vertebra was chosen as the starting point of the injection.? 22 gauge 3-1/2 inchWhitaker needle was inserted through the skin after skin wheal was raised with lidocaine 2%.? The needle was directed to the interlaminar space.? The advancement of the needle was performed on intermittent anterior posterior and lateral views.? On anterior posterior view needle was capped strictly in the midline.? On the lateral view needle entered in the projection of the center of the spinal canal.? At that moment the stylet was removed from the needle and clear flow CSF was detected in the needle hub.? After that? 3 mL of the solution containing bupivacaine 2 mg was injected into the needle.? After that needle was removed sterile dressing was applied.? Patient tolerated procedure well.? He was taken outside of the operating room to the recovery room where he recovered uneventfully.? (3) Chronic pain: Code(s): G89.29 - Other chronic pain Plan Implant of SCS was performed for the patient. He reports moderate help with spinal cord stimulator while at rest however with movements he reported significant exacerbation of the pain. In the past he received twice RFA of the L3-L4 does ramus L5 medial branches. On 07/27/2022 he received diagnostic and therapeutic medial branch block L2-L3 L4 does ramus L5. Unfortunately these injections resulted in no pain improvement longer than 24 hours. We discussed the situation today and I offered him I DDD. He went for psychological evaluation. Meanwhile I would like to evaluate his MRI without contrast. If there are significant Modic type changes of type 1 and type 2 this patient can be offered intercept procedure for vertebro genic pain. Orders: Orders FL guidance in treatment room Today G89.29 - Other chronic pain Coding Level of Care Code Procedure Only Diagnoses Spondylosis of lumbosacral spine without myelopathy M47.817 Disc degeneration, lumbar M51.36 Chronic pain G89.29
[2022-11-02 13:34] VITALS: BP 118/66; PULSE 64; RESP 16; O2SAT 96; BMI 35.2
[2022-11-02 13:35] VITALS: BP 110/74; PULSE 58; RESP 16; O2SAT 95; BMI 35.2
== END 2022-11-02 13:22 | disposition home or self-care (01) ==
LOC: HO.PMCPRC 10:58
PROVIDERS: PCP Student in an Organized Health Care Education/Training Program; Visit Provider Anesthesiology
DX: M47.817 Spondylosis without myelopathy or radiculopathy, lumbosacral region (principal); M51.36 Other intervertebral disc degeneration, lumbar region; G89.29 Other chronic pain
CPT/HCPCS: 62323

== ENCOUNTER 2022-11-04 10:42 | Outpatient (AMB) | payer MEDICARE, MEDICAID, SELFPAY ==
--- NOTE | 2022-11-04 10:46 | A.OFFVIS_ITS ---
Intake Vital Signs 11/04/22 10:54 Height 5 ft 7 in Weight 219 lb BMI 34.3 BP 108/60 Blood Pressure Location Lt brachial Position Sitting Respiration 18 Pulse 53 Pulse Source Pulse Oximeter Pulse Oximetry (%) 97 Oxygen Delivery Method Room Air Intake Visit Reasons: s/p ITDD Trial w/ Bupivacaine 11/02/22 Intake Note: patient comes in for post-op appointment. Allergies grass pollen Allergy (Mild, Verified 11/04/22 10:56) unknown tree and shrub pollen Allergy (Mild, Verified 11/04/22 10:56) itchy eyes, sneeze, runny nose HPI HPI Comments History of Present Illness Details Malik?is under observation in my office with multiple pain generators.? He he had implantation of the SCS Nevro on 10/30/2021. He reports moderate improvement of he has pain when spinal cord stimulator is working. He reports good pain relieve while he is at rest. However when he starts to move especially bend forward he reports pain exacerbation. In the past he had twice radiofrequency ablation and it was working ?like a miracle ?according to the patient. But 3rd procedure resulted in no improvement. He had L2-L3 L4 dorsal ramus L5 therapeutic medial branch block with wy on 07/27/2022. That injection resulted only in 24 hours of pain improvement. . His pain is mostly axial with radiati on into the lateral flanks. He denies radiation of the pain into bilateral lower extremity. He was sent for MRI dictattion of which is as below. I decided to send this MRI disc the patient Dr. Lara who is an expert in vertebra genic pain. The verbal consent from the patient was obtained to send his medical records to Dr. Lara. Meanwhile I took the patient for bupivacaine pain pump trial. He reported 13 hours of 100% pain relieve on 2 mg of bupivacaine injected into the epidural space. After the pain returned he reports that it became more severe than it was before the trial. I believe it is just perception bias of the patient who had significant pain relief and then he had his pain returned. Currently I think he might be a good candidate for bupivacaine pump to alleviate lower back pain however he has multiple medical conditions which resulted in abdominal pain as well as and cervicalgia. I am little bit hesitant to proceed with the implantation of the pump. I will wait until Dr. Lara will report on vertebra genic changes in the patient's MRI. ? He is complaining on cervicalgia cervical pain, he is complaining now on pain with swallowing and odynophagia, continues to complain on pain in the lower back.? Also continues to complain on new pain in the mid back in the projection of the thoracic spine.? In the past he received radiofrequency ablation of medial branches L3 L4-5 bilateral by and after him by me.? He reported excellent pain relieve each time for 2 years.? However repetition of the procedure this time resulted in?no?pain relieve and actually some pain aggravation.? We discussed possibility of treatment of his axial pain with Nevro spinal cord stimulator.? He was approved by psychological evaluation and he had a trial of SCS Nevro by Dr. Schmitt.? He reported 75% pain improvement he wants to proceed with implantation of the Nevro spinal cord stimulator. In the past he had bilateral therapeutic C2-C3 C4 MBB he underwent on 09/02/2020 :? He reports 100% relief from the time he had the procedure performed until today.? This constitutes almost 6 months of the pain relief.? He states ?it was a miracle as he has full range of motion of the neck with almost complete alleviation of his pain.? He reports occasional stiffness in the morning but resolves throughout the day.? He is quite satisfied with the result of the procedure. He also went for radiofrequency ablation C4-C5 C6 bilateral medial branches.? He reports 75% of the pain relief mostly in the lower cervical areas.? He reports that upper cervical areas are not affected by the injection.? He reports that alignment of his neck with round objects to increase the cervical lordosis alleviates his pain temporarily.? He requests me to repeat this procedures well.? However unfortunately we have to wait with this procedure after implantation of Nevro spinal cord stimulator and 8 weeks more because history stratton of the steroids during the RFA actually might compromise healing of the position of the epidural leads in posterior epidural space. [facility] Medical History AAA (abdominal aortic aneurysm) Arrhythmia Benign essential tremor CAD (coronary artery disease) Cardiac arrest CHF (congestive heart failure) Chronic renal insufficiency CVA (cerebral vascular accident) Disc degeneration, lumbar Elevated cholesterol History of ischemic cardiomyopathy HTN (hypertension) IDDM (insulin dependent diabetes mellitus) Lumbago of lumbar region with sciatica Mood disorder Myocardial infarction On anticoagulant therapy On beta ruddy at home PVD (peripheral vascular disease) Sleep apnea 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, 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 Surgical History History of colonoscopy History of hernia repair History of PTCA History of surgery Hx of CABG Hx of endoscopy Hx of gastric bypass Hx of parathyroidectomy Family History Father Hx of congenital heart disease Mother Hx of heat stroke Social History Are you a primary career based intervention coordinator to a significant other at home: No Alcohol intake: current Alcohol intake frequency: holidays/special occasions only Patient Tobacco Use Status: Former Tobacco user Quit Date: Tobacco use type: Cigarette Second Hand Smoke Exposure: No Review of Systems Const All systems reviewed & are unremarkable except as noted in HPI and below ENT Reports Normal hearing present Neuro Reports Normal hearing present and Denies Abnormal speech present Physical Exam Vital Signs: Last Vital Signs Pulse 53 11/04/22 10:54 Resp 18 11/04/22 10:54 BP 108/60 11/04/22 10:54 Pulse Ox 97 11/04/22 10:54 Oxygen Delivery Method Room Air 11/04/22 10:54 BMI result Body Mass Index 34.3 Const General: cooperative, no acute distress, alert and well groomed Orientation/consciousness: patient oriented x3 HEENT Head: Yes normocephalic and Yes atraumatic Ears: hearing grossly normal bilaterally Eyes General: appearance normal, both eyes and all related structures Eyelids: Yes eyelids normal Pupils: Equal, round and reactive pupils present EOM: EOMs intact bilaterally Neck Neck: Yes normal visual inspection and Yes no JVD Resp Effort & Inspection: normal respiratory effort, able to speak in complete sentences and no audible wheezes Cardio Jugular venous distension: no JVD Back/Spine/Pelvis Other: Tenderness of palpation paraspinal spinal region in the entire spine cervical thoracic and lumbar. SLR is negative with foot dorsiflexion. Flexing forward aggravates the pain. Flexing backwards does not change the pain. Neuro General: patient oriented x3 and moves all extremities Cranial nerves: Yes Equal, round and reactive pupils present and Yes Normal hear ing present Cognition (Neuro): normal cognition Speech: No Abnormal speech present Psych Appearance: grossly normal Mental Status: mental status grossly normal Speech and movement: Normal speech and movement present Affect: normal affect Attitude: cooperative Thought process: Normal thought process present Thought content: Normal thought content present Insight: Good insight present (Psych) Judgement: Good judgement present (Psych) Results Reviewed Results Reviewed: MR LUMBAR SPINE WITHOUT CONTRAST MRI of the lumbar spine was obtained using routine sequences without contrast. CORONAL ALIGNMENT: Mild S-shaped thoracolumbar scoliotic curvature noted, slightly convex to the left at L3-L4 and to the right at T12-L1. SAGITTAL ALIGNMENT: Mild retrolisthesis at L2-L3 and trace anterolisthesis at L4-L5 noted. No spondylolysis. LUMBOSACRAL JUNCTION: Normal. There are 5 [id number]-rwv-mwzqhwp lumbar-type vertebral bodies. VERTEBRAL BODIES: There is ujvy-nr-ipnuohbs chronic loss of height with mild anterior wedging of the L4 vertebral body. Otherwise, vertebral body heights are well-maintained. DISC SPACES AND ENDPLATES: Dbps-ww-ifwoimwe disc space height loss at L2-L3 noted with disc desiccation and dele-ct-mnaxeeeg spondylosis. There is disc desiccation at L3-L4 and L4-L5 as well without significant disc height loss. [place] remodeling along the endplates seen throughout the visualized thoracolumbar spine which is nonspecific. SPINAL CANAL: Spinal stimulator electrodes are seen entering the dorsal canal at the L1 level with associated ferromagnetic artifact ascending from the L1 level up to the lowest thoracic level imaged, being T10-T11. Note that the dorsal canal between T10-T11 and T12-L1 is obscured by artifact. BONE MARROW: No significant marrow-replacing process or bone marrow edema. CONUS MEDULLARIS: Terminates at L2. Morphology and signal is normal. INTRADURAL NERVE ROOTS: Within normal limits. L5-S1: Normal annular contour. Moderate bilateral facet arthrosis noted without significant canal or neural foraminal stenosis. L4-L5: Trace anterolisthesis noted with minor posterolateral disc osteophyte complex noted bilaterally and moderate bilateral facet arthropathy with ligamentum flavum thickening. No significant spinal canal stenosis. Mild foraminal narrowing on the right. L3-L4: Minor annular bulging with kgkz-qz-zksjasng facet arthropathy left more than right and mild ligamentum flavum thickening without significant canal or neural foraminal stenosis. L2-L3: Mild retrolisthesis noted, with posterolateral disc osteophyte complex bilaterally and slight flattening of the dural sac on both sides of the midline with mild ligamentum flavum thickening and facet arthropathy bilaterally. No significant canal or neural foraminal stenosis. L1-L2: No significant disc bulge or herniation. No significant facet arthrosis, canal or neural foraminal stenosis. Ligamentum flavum thickening noted. PARAVERTEBRAL AND INCLUDED EXTRASPINAL SOFT TISSUES: The paravertebral soft tissue structures appear grossly unremarkable. There is evidence of a previous aortobifemoral bypass graft procedure with maximum AP caliber of the infrarenal abdominal aorta of 4.7 cm, which appears stable in size when compared to previous CT abdomen of 08/20/2022. IMPRESSION: 1. Mild S-shaped thoracolumbar scoliotic curvature, with mild retrolisthesis at L2-L3 and trace anterolisthesis at L4-L5. 2. Discogenic degenerative changes most apparent at L2-L3 with associated spondylosis. 3. Multilevel bilateral facet arthropathy and ligamentum flavum thickening with minor disc bulging at L3-L4 and minor posterolateral disc osteophyte complex bilaterally at L4-L5 and L2-L3. No significant spinal canal stenosis. Mild foraminal narrowing on the right at L4-L5 noted without neural impingement. 4. Yznr-ou-asjbtari chronic loss of height of the L4 vertebral body. 5. Spinal stimulator electrodes in place as described above. 6. Abdominal aortic and iliac findings as noted above. See previous CT of the abdomen of 08/20/2022. Assessment & Plan Assessment & Plan (1) Spondylosis of lumbosacral spine without myelopathy: Code(s): M47.817 - Spondylosis without myelopathy or radiculopathy, lumbosacral region (2) Disc degeneration, lumbar: Code(s): M51.36 - Other intervertebral disc degeneration, lumbar region (3) Chronic pain: Code(s): G89.29 - Other chronic pain (4) Chronic pain syndrome: Code(s): G89.4 - Chronic pain syndrome (5) Vertebrogenic low back pain: Code(s): M54.51 - Vertebrogenic low back pain (6) Lumbago of lumbar region with sciatica: Code(s): M54.40 - Lumbago with sciatica, unspecified side (7) 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 About 1 year he reported moderate help with spinal cord stimulator while at rest however with movements he reported significant exacerbation of the pain. In the past he received twice RFA of the L3-L4 does ramus L5 medial branches with moderate success. However last time it to resulted in less than 2 months of pain relief. 07/27/2022 he received diagnostic and therapeutic medial branch block L2-L3 L4 does ramus L5. Unfortunately these injections resulted in no pain improvement longer than 24 hours. To ways of treatment of his pain at this moment are under consideration. He went for MRI of the lumbar spine and had some nonspecific vertebra genic changes which I requested to be evaluated by Dr. Lara, renown specialist on vertebra genic pain from [place]. Alternatively we can set aside all attempts to treat his pain ethiology. He had a trial of bupivacaine pain pump which resulted in 13 hours of 100% pain elimination. I will wait for the consult from Dr. Lara and if there is now reason to consider him as vertebra genic pain patient I will proceed with implantation of intrathecal drug delivery system pain pump with bupivacaine. Patient Instructions: I here by testify that over the course of past several days I spent at least 1 hour and 30 minutes discussing this patient's conditions with colleagues, planning this patient's care, and organizing this note. Coding Level of Care Code Est Pt Level 5 (72295) Diagnoses Spondylosis of lumbosacral spine without myelopathy M47.817 Disc degeneration, lumbar M51.36 Chronic pain G89.29 Chronic pain syndrome G89.4 Vertebrogenic low back pain M54.51 Lumbago of lumbar region with sciatica M54.40 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
[2022-11-04 10:54] VITALS: BP 108/60; PULSE 53; RESP 18; O2SAT 97; BMI 34.3
== END 2022-11-04 11:01 | disposition home or self-care (01) ==
PROVIDERS: PCP Student in an Organized Health Care Education/Training Program; Visit Provider Anesthesiology
DX: M47.817 Spondylosis without myelopathy or radiculopathy, lumbosacral region (principal); M51.36 Other intervertebral disc degeneration, lumbar region; G89.4 Chronic pain syndrome; G89.29 Other chronic pain; M54.51 Vertebrogenic low back pain; M54.40 Lumbago with sciatica, unspecified side; M49.86 Spondylopathy in diseases classified elsewhere, lumbar region; M47.812 Spondylosis without myelopathy or radiculopathy, cervical region
CPT/HCPCS: 99024

== ENCOUNTER → 2022-11-04 10:42 | Outpatient (BNVA) | payer MEDICARE, MEDICAID, SELFPAY | PROVIDERS: PCP Student in an Organized Health Care Education/Training Program; Visit Provider Anesthesiology ==

== ENCOUNTER 2022-11-09 10:08 | Outpatient (REF) | payer MEDICARE, MEDICAID, SELFPAY ==
[2022-11-09 15:54] LABS: Alanine Aminotransferase 21 U/L (0-40); Albumin Level 4.2 g/dL (3.5-5.0); Alkaline Phosphatase 137 U/L (39-117); Anion Gap 11 (12-20); Aspartate Amino Transferase 21 U/L (5-37); Bilirubin Direct 0.2 mg/dL (0.0-0.5); Bilirubin Total 0.3 mg/dL (0.0-1.0); Blood Urea Nitrogen 19 mg/dL (9-16); Calcium 9.1 mg/dL (8.4-10.2); Carbon Dioxide 27 mmol/L (22-29); Chloride 105 mmol/L (96-108); Cholesterol 116 mg/dL (<200); Estimated Glomerular Filt Rate > 60; Glucose Fasting 134 mg/dL (60-99); HDL Cholesterol 49 mg/dL (>40); LDL Cholesterol Calculated 55 mg/dL (<100); Potassium 4.2 mmol/L (3.3-5.1); Sodium 139 mmol/L (135-145); Total Protein 7.2 g/dL (6.5-8.0); Triglycerides 64 mg/dL (<150)
== END 2022-11-09 10:09 | disposition home or self-care (01) ==
LOC: HO.CHCLDS 10:08
PROVIDERS: Visit Provider Student in an Organized Health Care Education/Training Program
DX: I10 Essential (primary) hypertension (principal); E11.65 Type 2 diabetes mellitus with hyperglycemia
CPT/HCPCS: 36415; 80048; 80061; 80076

== ENCOUNTER 2022-11-11 14:17 | Outpatient (AMB) | payer MEDICARE, MEDICAID, SELFPAY ==
--- NOTE | 2022-11-11 14:26 | MHC.OFFVIS ---
Intake Vital Signs 11/11/22 14:37 Height 5 ft 8 in Weight 222 lb 3.615 oz BMI 33.8 BP 125/60 Blood Pressure Location Rt brachial Position Sitting Pulse 74 Pulse Source Pulse Oximeter Temp 97.2 F Temp Source Temporal Artery Scan Pulse Oximetry (%) 96 Oxygen Delivery Method Room Air Intake Visit Reasons: Follow up to discuss surgery Intake Note: Pt unable to verify medications pharmacy called Chemist Pharmaceutical Required: No Wet Crown Blocking Operator: Wet Crown Blocking Operator offered & declined Allergies grass pollen Allergy (Mild, Verified 11/11/22 14:30) unknown tree and shrub pollen Allergy (Mild, Verified 11/11/22 14:30) itchy eyes, sneeze, runny nose HPI HPI Comments History of Present Illness Details The patient is a 72-year-old gentleman with a history of type 2 diabetes, obesity, status post laparoscopic sleeve gastrectomy 2016 with peripheral vascular disease including AFib on Xarelto who is seen by way of the emergency department because of an episode of abdominal pain and gallstones. The patient reports an extensive past medical history includes nerve stimulator, hypertension, hypercholesterolemia, history of a CVA, history of an OK, h/o hiatal hernia repair, renal insufficiency, chronic lumbar pain, AAA repair, s/p CABG, AFib requiring Xarelto, chronic GI issues. Pt's PCP sent notice the pt's HbA1C is 7.5. He was upset that his weight is up from his last visit and notes there must be a problem with our scale because he has lost 15 lb according to his home scale. The patient continues to endorse epigastric and left upper quadrant pain that is not improving. Today, the patient is reporting constant, unrelenting right upper quadrant pain radiating to his back and also reports difficulty getting in and out of the chair secondary to back pain as well as left shoulder pain. He reports the pain is not worse with food and does not describe typical symptoms of biliary colic. He insisted that his right upper quadrant pain and other pain issues are preventing him from going to the gym and he simply wants his gallbladder out whether or not it will benefit him. He presented on 06/21/2022 to the emergency department with both abdominal pain and constipation and was noted to have elevated LFTs, lipase and ultimately improved and was discharged. The patient also reports unrelenting thirst and excessive urination. The patient states that his Ozempic has been stopped & he is now on insulin, but he doesn't recall the dose. He states his sugars have been running in the 130-150 range. He states that he is having significant, ongoing back pain. The patient is a history of a AAA repair but does not recall whether it was endovascular or open. 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, lumbar region PVD (peripheral vascular disease) Mood disorder On beta ruddy at home Benign essential tremor CVA (cerebral vascular accident) IDDM (insulin dependent diabetes mellitus) Sleep apnea Chronic renal insufficiency Myocardial infarction CHF (congestive heart failure) CAD (coronary artery disease) AAA (abdominal aortic aneurysm) Arrhythmia On anticoagulant therapy Elevated cholesterol HTN (hypertension) History of ischemic cardiomyopathy 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 Surgical History History of surgery History of PTCA Hx of parathyroidectomy Hx of CABG History of hernia repair Hx of gastric bypass Hx of endoscopy History of colonoscopy Family History Father Hx of congenital heart disease Mother Hx of heat stroke Social History Are you a primary healthcare market consultant to a significant other at home: No Alcohol intake: current Alcohol intake frequency: holidays/special occasions only Patient Tobacco Use Status: Former Tobacco user Quit Date: Tobacco use type: Cigarette Second Hand Smoke Exposure: No Review of Systems Const All systems reviewed & are unremarkable except as noted in HPI and below Reports as per HPI Physical Exam On exam, he is nontoxic He is anicteric He is in no acute respiratory distress His abdomen remains obese Results Reviewed Results Reviewed: Labs Patient's hemoglobin A1c is elevated at 8.8 Patient's lipase was elevated at 504; on retest it was down to 35 Patient's ALT is elevated at 49, total bilirubin 0.6 alkaline phosphatase 193 Patient's BUN is elevated at 24, creatinine 1.16 Hemoglobin is 15.0, platelet count 198 K; white blood cell count 10.1 CT of the abdomen and pelvis images and report dated 08/20/2022 are reviewed. Other than gallstones, no mass or evidence of malignancy is noted and no pancreatic inflammation is noted. Abd U/S 07/23/22 shows NAFLD & gallstones Assessment & Plan Assessment & Plan (1) DMII (diabetes mellitus, type 2): Code(s): E11.9 - Type 2 diabetes mellitus without complications (2) Gallstones: Code(s): K80.20 - Calculus of gallbladder without cholecystitis without obstruction (3) NAFLD (nonalcoholic fatty liver disease): Code(s): K76.0 - Fatty (change of) liver, not elsewhere classified (4) AAA (abdominal aortic aneurysm): Comment: w/repair Code(s): I71.4 - Abdominal aortic aneurysm, without rupture (5) Chronic renal insufficiency: Comment: stage 3 Code(s): N18.9 - Chronic kidney disease, unspecified (6) On anticoagulant therapy: Comment: Xarelto Code(s): Z79.01 - detention (current) use of anticoagulants (7) Chronic pain syndrome: Code(s): G89.4 - Chronic pain syndrome (8) S/P laparoscopic sleeve gastrectomy: Code(s): Z98.84 - Bariatric surgery status Plan We reviewed biliary colic symptoms again and it is not clear that the patient is having gallbladder symptoms. He had difficulty standing due to lumbar back pain and getting in and out of the chair. Patient was upset at his weight gain. Patient requested repeat imaging, specifically an ultrasound and lab work which were ordered and I offered to see the patient back to discuss cholecystectomy, but he is not having clear biliary colic symptoms and his continued to endorse some attic complaints of left shoulder pain, lumbar pain and constant abdominal pains that are not likely to improve with cholecystectomy. He does report ongoing issues with diarrhea and we discussed how this may worsen with cholecystectomy. The option of a 2nd opinion was also discussed and the patient stated he may take it into consideration. The patient stated that he would follow-up for he has labs and his abdominal ultrasound performed. He will contact me before then with questions or concerns. Orders: Orders US abdomen limited Today E11.9 - Type 2 diabetes mellitus without complications, G89.4 - Chronic pain syndrome, I71.4 - Abdominal aortic aneurysm, without rupture, K76.0 - Fatty (change of) liver, not elsewhere classified, K80.20 - Calculus of gallbladder without cholecystitis without obstruction, N18.9 - Chronic kidney disease, unspecified, R10.11 - Right upper quadrant pain, Z79.01 - detention (current) use of anticoagulants, Z98.84 - Bariatric surgery status Complete Blood Count Auto Diff Today E11.9 - Type 2 diabetes mellitus without complications, G89.4 - Chronic pain syndrome, I71.4 - Abdominal aortic aneurysm, without rupture, K76.0 - Fatty (change of) liver, not elsewhere classified, K80.20 - Calculus of gallbladder without cholecystitis without obstruction, N18.9 - Chronic kidney disease, unspecified, Z79.01 - detention (current) use of anticoagulants, Z98.84 - Bariatric surgery status Comprehensive Met. Panel Today E11.9 - Type 2 diabetes mellitus without complications, G89.4 - Chronic pain syndrome, I71.4 - Abdominal aortic aneurysm, without rupture, K76.0 - Fatty (change of) liver, not elsewhere classified, K80.20 - Calculus of gallbladder without cholecystitis without obstruction, N18.9 - Chronic kidney disease, unspecified, Z79.01 - detention (current) use of anticoagulants, Z98.84 - Bariatric surgery status Prealbumin Today E11.9 - Type 2 diabetes mellitus without complications, G89.4 - Chronic pain syndrome, I71.4 - Abdominal aortic aneurysm, without rupture, K76.0 - Fatty (change of) liver, not elsewhere classified, K80.20 - Calculus of gallbladder without cholecystitis without obstruction, N18.9 - Chronic kidney disease, unspecified, 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 of anticoagulants, Z98.84 - Bariatric surgery status Medications: Discontinued ondansetron Discontinued Reason: Patient Completed Course 4 mg PO Q8H 5 days PRN 20 tabs 0RF nausea and vomiting naloxone 4 mg/actuation (Narcan) spray 1 dose into ONE nostril; alternate nostrils w each dose until help arrives Discontinued Reason: Patient Completed Course 4 mg intranasal Q2M 2 ea 0RF sucralfate (Carafate) Discontinued Reason: Patient Completed Course 10 mL PO BID 30 days 600 mL 1RF methylnaltrexone (Relistor) Discontinued Reason: Patient Completed Course 450 mg (3 x 150 mg) PO QAM 90 tabs 3RF zinc gluconate Discontinued Reason: Patient Completed Course 50 mg PO QAM 30 tabs 3RF oxycodone Partial Fill upon patient request. Do not take the medication within 2 hours of HS. Discontinued Reason: Patient Completed Course 10 mg PO Q6H 4 days PRN 16 tabs 0RF pain Coding Level of Care Code Est Pt Level 4 (11145) Diagnoses DMII (diabetes mellitus, type 2) E11.9 Gallstones K80.20 NAFLD (nonalcoholic fatty liver disease) K76.0 AAA (abdominal aortic aneurysm) I71.4 Chronic renal insufficiency N18.9 On anticoagulant therapy Z79.01 Chronic pain syndrome G89.4 S/P laparoscopic sleeve gastrectomy Z98.84
[2022-11-11 14:37] VITALS: BP 125/60; PULSE 74; TEMP 36.2; O2SAT 96; BMI 33.8
== END 2022-11-11 15:10 | disposition home or self-care (01) ==
PROVIDERS: PCP Student in an Organized Health Care Education/Training Program; Visit Provider Surgery
DX: E11.9 Type 2 diabetes mellitus without complications (principal); K80.20 Calculus of gallbladder without cholecystitis without obstruction; K76.0 Fatty (change of) liver, not elsewhere classified; I71.40 Abdominal aortic aneurysm, without rupture, unspecified; N18.9 Chronic kidney disease, unspecified; Z79.01 Long term (current) use of anticoagulants; G89.4 Chronic pain syndrome; Z98.84 Bariatric surgery status
CPT/HCPCS: 99214

== ENCOUNTER → 2022-11-11 14:17 | Outpatient (BNVA) | payer MEDICARE, MEDICAID, SELFPAY | PROVIDERS: PCP Student in an Organized Health Care Education/Training Program; Visit Provider Surgery | DX: K80.20 Calculus of gallbladder without cholecystitis without obstruction (principal); E11.22 Type 2 diabetes mellitus with diabetic chronic kidney disease; N18.30 Chronic kidney disease, stage 3 unspecified; K76.0 Fatty (change of) liver, not elsewhere classified; I71.40 Abdominal aortic aneurysm, without rupture, unspecified; G89.4 Chronic pain syndrome; Z98.84 Bariatric surgery status; Z79.01 Long term (current) use of anticoagulants | CPT/HCPCS: 99212 ==

== ENCOUNTER 2022-11-15 12:21 | Outpatient (REF) | payer MEDICARE, MEDICAID, SELFPAY ==
--- NOTE | ~2022-11-15 | US_ITS ---
EXAMINATION: US ABDOMEN LIMITED CLINICAL INFORMATION: Right upper quadrant pain. COMPARISON: CT abdomen and pelvis with contrast 08/20/2022. Ultrasound abdomen complete 07/23/2022. Ultrasound abdomen limited 06/21/2022. TECHNIQUE: Real-time imaging of the right upper quadrant abdominal viscera. FINDINGS: PANCREAS: Visualized portions of the pancreas are unremarkable, the tail is not well visualized. LIVER: The liver is normal in size. The liver contour is normal. Increased hepatic echogenicity suggesting hepatic steatosis. No focal hepatic lesion. There is no intrahepatic biliary duct dilatation seen. GALLBLADDER: Intraluminal gallbladder calculi. The gallbladder is physiologically distended. No evidence of gallbladder wall thickening or pericholecystic fluid. Sonographic Alex sign is negative. COMMON BILE DUCT: Normal in caliber measuring 0.6 cm in diameter. RIGHT KIDNEY: Right renal lower pole cystic focus measuring up to 1.7 cm, simple appearing, not requiring follow-up. No hydronephrosis or renal calculi. The kidney measures 11.2 cm in maximum dimension. FREE FLUID: None. US/US abdomen limited IMPRESSION: 1. Cholelithiasis without sonographic evidence of acute cholecystitis. 2. Increased hepatic echogenicity suggesting hepatic steatosis. 3. Right renal lower pole cystic focus measuring up to 1.7 cm, simple appearing, not requiring follow-up.
[2022-11-15 16:08] LABS: MANUAL DIFF FLAG NO
[2022-11-15 16:15] LABS: Basophils Percent Auto 0.5 % (0-2); Eosinophils Absolute Auto 0.1 X10*3/uL (0.0-0.4); Eosinophils Percent Auto 1.2 % (0-4); Hematocrit 47.3 % (42.0-52.0); Hemoglobin 14.5 g/dl (14.0-18.0); Imm Gran Abs Auto 0.03 X10*3/uL (0.00-0.03); Imm Gran Pct Auto 0.4 % (0.0-0.4); Lymphocytes Absolute Auto 2.4 X10*3/uL (1.2-4.9); Lymphocytes Percent Auto 32.5 % (20-40); Mean Corpuscular HGB Conc 30.7 g/dl (31.0-36.0); Mean Corpuscular Hemoglobin 25.5 pg (27.0-33.0); Mean Corpuscular Volume 83.3 fL (80.0-98.0); Mean Platelet Volume 11.7 fL (9.4-12.4); Monocytes Absolute Auto 0.6 X10*3/uL (0.1-1.2); Monocytes Percent Auto 7.8 % (2-11); Neutrophils Absolute Auto 4.3 x10*3/uL (2.0-8.3); Neutrophils Percent Auto 57.6 % (45-73); Platelet Count 223 X10*3/uL (160-400); Red Blood Count 5.68 X10*6/uL (4.60-5.80); Red Cell Distribution Width 16.7 % (11.0-16.0); White Blood Count 7.4 X10*3/uL (4.8-10.8)
[2022-11-15 16:25] LABS: Alanine Aminotransferase 39 U/L (0-40); Albumin Level 4.5 g/dL (3.5-5.0); Alkaline Phosphatase 133 U/L (39-117); Anion Gap 14 (12-20); Aspartate Amino Transferase 36 U/L (5-37); Bilirubin Total 0.5 mg/dL (0.0-1.0); Blood Urea Nitrogen 28 mg/dL (9-16); Calcium 9.9 mg/dL (8.4-10.2); Carbon Dioxide 25 mmol/L (22-29); Chloride 108 mmol/L (96-108); Estimated Glomerular Filt Rate > 60; Glucose Random 136 mg/dL (60-115); Lipase 11 U/L (8-78); Potassium 5.1 mmol/L (3.3-5.1); Sodium 142 mmol/L (135-145); Total Protein 7.7 g/dL (6.5-8.0)
== END 2022-11-15 12:22 | disposition home or self-care (01) ==
LOC: HO.HMGCX 12:21
PROVIDERS: PCP Student in an Organized Health Care Education/Training Program; Visit Provider Surgery
DX: R10.11 Right upper quadrant pain (principal); N18.9 Chronic kidney disease, unspecified; K80.20 Calculus of gallbladder without cholecystitis without obstruction; E11.9 Type 2 diabetes mellitus without complications; K76.0 Fatty (change of) liver, not elsewhere classified; G89.4 Chronic pain syndrome; Z98.84 Bariatric surgery status; Z79.01 Long term (current) use of anticoagulants
CPT/HCPCS: 36415; 76705; 80053; 83690; 84134; 85025

== ENCOUNTER 2022-11-17 11:18 | Outpatient (AMB) | payer MEDICARE, MEDICAID, SELFPAY ==
--- NOTE | 2022-11-17 11:18 | A.OFFVIS_ITS ---
Intake Intake Visit Reasons: MRI results/Confirmed Allergies grass pollen Allergy (Mild, Verified 11/17/22 11:19) unknown tree and shrub pollen Allergy (Mild, Verified 11/17/22 11:19) itchy eyes, sneeze, runny nose HPI HPI Comments History of Present Illness Details Risais on the phone today to discuss changes we discovered on his MRI. According to radiologist added on note he has L2-L3 Modic type 2 changes which could be possibly a source of his pain. The vertebra genic pain is suspected. I offered in the past this patient pain pump however I today discussed intrasept procedure with him and he agreed to try. In my opinion he has also L5-S1 changes so if we will go for the procedure I will do L2-L3 and L5-S1 radiofrequency ablation of the basivertebral nerve ablation . Patient agreed to try this procedure. He understood that it might not help him and then we have backup plan to treat his pain with the pain pump as we discussed before. He had good results of the trial of the pain pump. Prior: under observation in my office with multiple pain generators.? He he had implantation of the SCS Nevro on 10/30/2021. He reports moderate improvement of he has pain when spinal cord stimulator is working. He reports good pain relieve while he is at rest. However when he starts to move especially bend forward he reports pain exacerbation. In the past he had twice radiofrequency ablation and it was working ?like a miracle ?according to the patient. But 3rd procedure resulted in no improvement. He had L2-L3 L4 dorsal ramus L5 therapeutic medial branch block with va on 07/27/2022. That injection resulted only in 24 hours of pain improvement. . His pain is mostly axial with radiati on into the lateral flanks. He denies radiation of the pain into bilateral lower extremity. He was sent for MRI dictattion of which is as below. I decided to send this MRI disc the patient Dr. Lara who is an expert in vertebra genic pain. The verbal consent from the patient was obtained to send his medical records to Dr. Lara. Meanwhile I took the patient for bupivacaine pain pump trial. He reported 13 hours of 100% pain relieve on 2 mg of bupivacaine injected into the epidural space. After the pain returned he reports that it became more severe than it was before the trial. I believe it is just perception bias of the patient who had significant pain relief and then he had his pain returned. Currently I think he might be a good candidate for bupivacaine pump to alleviate lower back pain however he has multiple medical conditions which resulted in abdominal pain as well as and cervicalgia. I am little bit hesitant to proceed with the implantation of the pump. I will wait until Dr. Lara will report on vertebra genic changes in the patient's MRI. ? He is complaining on cervicalgia cervical pain, he is complaining now on pain with swallowing and odynophagia, continues to complain on pain in the lower back.? Also continues to complain on new pain in the mid back in the projection of the thoracic spine.? In the past he received radiofrequency ablation of medial branches L3 L4-5 bilateral by and after him by me.? He reported excellent pain relieve each time for 2 years.? However repetition of the procedure this time resulted in?no?pain relieve and actually some pain aggravation.? We discussed possibility of treatment of his axial pain with Nevro spinal cord stimulator.? He was approved by psychological evaluation and he had a trial of SCS Nevro by Dr. Schmitt.? He reported 75% pain improvement he wants to proceed with implantation of the Nevro spinal cord stimulator. In the past he had bilateral therapeutic C2-C3 C4 MBB he underwent on 09/02/2020 :? He reports 100% relief from the time he had the procedure performed until today.? This constitutes almost 6 months of the pain relief.? He states ?it was a miracle as he has full range of motion of the neck with almost complete alleviation of his pain.? He reports occasional stiffness in the morning but resolves throughout the day.? He is quite satisfied with the result of the procedure. He also went for radiofrequency ablation C4-C5 C6 bilateral medial branches.? He reports 75% of the pain relief mostly in the lower cervical areas.? He reports that upper cervical areas are not affected by the injection.? He reports that alignment of his neck with round objects to increase the cervical lordosis alleviates his pain temporarily.? He requests me to repeat this procedures well.? However unfortunately we have to wait with this procedure after implantation of Nevro spinal cord stimulator and 8 weeks more because history stratton of the steroids during the RFA actually might compromise healing of the position of the epidural leads in posterior epidural space. 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, lumbar region PVD (peripheral vascular disease) Mood disorder On beta ruddy at home Benign essential tremor CVA (cerebral vascular accident) IDDM (insulin dependent diabetes mellitus) Sleep apnea Chronic renal insufficiency Myocardial infarction CHF (congestive heart failure) CAD (coronary artery disease) AAA (abdominal aortic aneurysm) Arrhythmia On anticoagulant therapy Elevated cholesterol HTN (hypertension) History of ischemic cardiomyopathy 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 Surgical History History of surgery History of PTCA Hx of parathyroidectomy Hx of CABG History of hernia repair Hx of gastric bypass Hx of endoscopy History of colonoscopy Family History Father Hx of congenital heart disease Mother Hx of heat stroke Social History Are you a primary personal care service provider to a significant other at home: No Alcohol intake: current Alcohol intake frequency: holidays/special occasions only Patient Tobacco Use Status: Former Tobacco user Quit Date: Tobacco use type: Cigarette Second Hand Smoke Exposure: No Review of Systems Const All systems reviewed & are unremarkable except as noted in HPI and below Assessment & Plan Assessment & Plan (1) Spondylosis of lumbosacral spine without myelopathy: Code(s): M47.817 - Spondylosis without myelopathy or radiculopathy, lumbosacral region (2) Disc degeneration, lumbar: Code(s): M51.36 - Other intervertebral disc degeneration, lumbar region (3) Chronic pain: Code(s): G89.29 - Other chronic pain (4) Chronic pain syndrome: Code(s): G89.4 - Chronic pain syndrome (5) Vertebrogenic low back pain: Code(s): M54.51 - Vertebrogenic low back pain (6) Lumbago of lumbar region with sciatica: Code(s): M54.40 - Lumbago with sciatica, unspecified side (7) 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 About 1 year he reported moderate help with spinal cord stimulator while at rest however with movements he reported significant exacerbation of the pain. In the past he received twice RFA of the L3-L4 does ramus L5 medial branches with moderate success. However last time it to resulted in less than 2 months of pain relief. 07/27/2022 he received diagnostic and therapeutic medial branch block L2-L3 L4 does ramus L5. Unfortunately these injections resulted in no pain improvement longer than 24 hours. To ways of treatment of his pain at this moment are under consideration. He went for MRI of the lumbar spine and had some nonspecific vertebra genic changes which I requested to be evaluated by Dr. Lara, [facility]own specialist on vertebra genic pain from [place]. Alternatively we can set aside all attempts to treat his pain ethiology. He had a trial of bupivacaine pain pump which resulted in 13 hours of 100% pain elimination. Dr. Lara reported that he has supple levels of the Modic type 2 changes in his vertebral spine. I informed patient today that it would be worse trying L2-L3 and L5-S1 intercept procedure. This will be done under general anesthesia. It is less invasive than pain pump I originally offered to the patient. Therefore I will offer this patient intercept procedures above. Patient Instructions: I here by testify that I spent 30 minutes in conversation with this patient as well as planning his care and organizing his note. Telehealth Telehealth Location of provider rendering services: practice address Location of patient: address on file Patient Identification confirmed using: Name, : Yes Telehealth method: voice only Patient verbally consented to treatment: Yes Patient verbally consented to billing insurance company: Yes Patient informed of any privacy concerns related to visit: Yes Coding Level of Care Code Est Pt Level 4 (59707) Diagnoses Spondylosis of lumbosacral spine without myelopathy M47.817 Disc degeneration, lumbar M51.36 Chronic pain G89.29 Chronic pain syndrome G89.4 Vertebrogenic low back pain M54.51 Lumbago of lumbar region with sciatica M54.40 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
== END 2022-11-17 11:33 | disposition home or self-care (01) ==
LOC: HO.PMC 11:18
PROVIDERS: PCP Student in an Organized Health Care Education/Training Program; Visit Provider Anesthesiology
DX: M47.817 Spondylosis without myelopathy or radiculopathy, lumbosacral region (principal); M51.36 Other intervertebral disc degeneration, lumbar region; G89.29 Other chronic pain; M54.51 Vertebrogenic low back pain; M54.40 Lumbago with sciatica, unspecified side; M49.86 Spondylopathy in diseases classified elsewhere, lumbar region; M47.812 Spondylosis without myelopathy or radiculopathy, cervical region
CPT/HCPCS: 99443

== ENCOUNTER → 2022-11-17 11:18 | Outpatient (BNVA) | payer MEDICARE, MEDICAID, SELFPAY | PROVIDERS: PCP Student in an Organized Health Care Education/Training Program; Visit Provider Anesthesiology ==

== ENCOUNTER 2022-11-26 11:11 | Outpatient (AMB) | payer MEDICARE, MEDICAID, SELFPAY ==
--- NOTE | 2022-11-26 11:12 | MHC.OFFVIS ---
Intake Vital Signs 11/26/22 11:17 Height 5 ft 8 in Weight 216 lb BMI 32.8 BP 127/79 Blood Pressure Location Rt brachial Position Sitting Pulse 69 Intake Visit Reasons: 2nd opinion regarding gallbladder Intake Note: Patient here for 2nd opinion on gallbladder. C/o pain and tenderness when pressing on it. Patient would like to have it repaired. Hand Crown Pouncer Required: No Accompanied by: Self / Same As Patient Allergies grass pollen Allergy (Mild, Verified 11/26/22 11:19) unknown tree and shrub pollen Allergy (Mild, Verified 11/26/22 11:19) itchy eyes, sneeze, runny nose HPI HPI Comments History of Present Illness Details Patient presents with longstanding history of biliary colic. His symptoms are postprandial right upper quadrant pain radiating around to his back. Patient has had marked symptoms over the last several months and wishes to be evaluated for cholecystectomy. Patient has quite an extensive past medical and surgical history which were reviewed. CABG surgery twice. Multiple coronary angioplasties. Patient is currently on Xarelto and aspirin. Chart was reviewed patient evaluated. CT and sonogram are positive for cholelithiasis. Patient also has a stable AAA. Patient has received cardiac clearance for general anesthesia regarding his back surgery. It was standard reason that this clearance we would also be appropriate for his biliary surgery. 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, lumbar region PVD (peripheral vascular disease) Mood disorder On beta ruddy at home Benign essential tremor CVA (cerebral vascular accident) IDDM (insulin dependent diabetes mellitus) Sleep apnea Chronic renal insufficiency Myocardial infarction CHF (congestive heart failure) CAD (coronary artery disease) AAA (abdominal aortic aneurysm) Arrhythmia On anticoagulant therapy Elevated cholesterol HTN (hypertension) History of ischemic cardiomyopathy 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 Surgical History History of surgery History of PTCA Hx of parathyroidectomy Hx of CABG History of hernia repair Hx of gastric bypass Hx of endoscopy History of colonoscopy Family History Father Hx of congenital heart disease Mother Hx of heat stroke Social History Are you a primary livestock caretaker to a significant other at home: No Alcohol intake: current Alcohol intake frequency: holidays/special occasions only Patient Tobacco Use Status: Former Tobacco user Quit Date: Tobacco use type: Cigarette Second Hand Smoke Exposure: No Physical Exam Vital Signs: Last Vital Signs Pulse 69 11/26/22 11:17 BP 127/79 11/26/22 11:17 BMI result Body Mass Index 32.8 Chest Other: Chest breath sounds bilaterally, HS 1 and 2. Sternotomy scar. GI Other: Abdomen moderately corpulent. Soft, nontender. Well-healed scars from patient's prior laparoscopic gastric bypass. Assessment & Plan Assessment & Plan (1) Gallstones: Code(s): K80.20 - Calculus of gallbladder without cholecystitis without obstruction (2) Recurrent biliary colic: Code(s): K80.50 - Calculus of bile duct without cholangitis or cholecystitis without obstruction Plan And extensive discussion with the patient regarding risks, benefits, alternatives laparoscopic possible open cholecystectomy which included but not limited to bleeding, infection, recurrence of symptoms, numbness, pain, scarring, bowel or bile duct injury or leak. Patient is also scheduled to have surgery scheduled with Dr. Weaver regarding chronic back pain issues. Patient states that his gallbladder symptoms are his priority now and will delay the chronic Pain Management surgery until this process has resolved. Patient understood the above, and wishes to proceed with his gallbladder surgery. Arrangements were made for this. He will need to stop his anticoagulation of Xarelto 4 days prior. Arrangements were made for this. Coding Level of Care Code New Pt Level 5 (06220) Diagnoses Gallstones K80.20 Recurrent biliary colic K80.50
[2022-11-26 11:17] VITALS: BP 127/79; PULSE 69; BMI 32.8
== END 2022-11-26 11:30 | disposition home or self-care (01) ==
PROVIDERS: PCP Student in an Organized Health Care Education/Training Program; Visit Provider Surgery
DX: K80.20 Calculus of gallbladder without cholecystitis without obstruction (principal); K80.50 Calculus of bile duct without cholangitis or cholecystitis without obstruction
CPT/HCPCS: 99204

== ENCOUNTER → 2022-11-26 11:11 | Outpatient (BNVA) | payer MEDICARE, MEDICAID, SELFPAY | PROVIDERS: PCP Student in an Organized Health Care Education/Training Program; Visit Provider Surgery ==

== ENCOUNTER 2022-12-08 09:15 | Day surgery (SDC) | payer MEDICARE, MEDICAID, SELFPAY ==
[2022-12-06 11:48] VITALS: BMI 31.6
--- NOTE | 2022-12-07 10:45 | HO.ANESPROP2 ---
Documented by User: Marquita Sanchez NP 12/07/22 14:26 HPI - Anesthesia Eval Consult details Narrative: 72yo M for Cholecystectomy Laparoscopic, possible open CAD with hx CABG 1988, CHF. afib, AAA repair Cardiac optimized. Last office visit 10/2022 - well compensated and euvolemic from a heart failure standpoint Xarelto for afib ECHO 11/29/22 - results pending DELMY / Central sleep apnea. Recent repeat sleep study. No results available Follows renal for CKD St 3. Stable at 06/2022 office visit [facility] Active Problems Active Problems: All Active Problems (Updated 12/06/22 @ 11:35 by Niki Ortiz, RN) Recurrent biliary colic (Acute) Vertebrogenic low back pain (Acute) Chronic pain syndrome (Acute) Poorly controlled type 2 diabetes mellitus (Acute) Pancreatitis (Acute) NAFLD (nonalcoholic fatty liver disease) (Acute) DMII (diabetes mellitus, type 2) (Acute) Gallstones (Acute) S/P laparoscopic sleeve gastrectomy (Acute) Chronic pain (Acute) Neck pain (Acute) Dysphagia (Acute) Depression screen (Acute) Tinnitus (Acute) Dysgeusia (Acute) Anosmia (Acute) On anticoagulant therapy (Acute) Chronic renal insufficiency (Acute) AAA (abdominal aortic aneurysm) (Acute) Disc degeneration, lumbar (Acute) Lumbago of lumbar region with sciatica (Acute) 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, lumbar region (Acute) Benign essential tremor (Acute) Spondylosis of cervical joint without myelopathy (Acute) Spondylosis of lumbosacral spine without myelopathy (Acute) Past Medical History Medical History Rheumatic fever Cardiac arrest Disc degeneration, 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, lumbar region PVD (peripheral vascular disease) Mood disorder On beta ruddy at home Benign essential tremor CVA (cerebral vascular accident) IDDM (insulin dependent diabetes mellitus) Sleep apnea Chronic renal insufficiency Myocardial infarction CHF (congestive heart failure) CAD (coronary artery disease) AAA (abdominal aortic aneurysm) Arrhythmia On anticoagulant therapy Elevated cholesterol HTN (hypertension) History of ischemic cardiomyopathy 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 Family History Family History Father Hx of congenital heart disease Mother Hx of heat stroke Family history of problems with anesthesia: No Surgical History Surgical History History of laparoscopic cholecystectomy (12/08/22) History of surgery History of surgery History of PTCA Hx of parathyroidectomy Hx of CABG History of hernia repair Hx of gastric bypass Hx of endoscopy History of colonoscopy History of Problems with Anesthesia: No Social History Household Members: None Housing: Apartment Are you a primary acute care occupational therapist to a significant other at home: No Do you presently have visiting nurse or other home services: Yes (PSYCHIATRIC MENTAL HEALTH NURSE 2 hours per week) Alcohol intake: current Alcohol intake frequency: holidays/special occasions only Patient Tobacco Use Status: Former Tobacco user Quit Date: 1988 Tobacco use type: Cigarette Second Hand Smoke Exposure: No Meds Allergies Allergy/AdvReac Type Severity Reaction Status Date / Time grass pollen Allergy Mild unknown Verified 01/07/23 14:49 tree and shrub pollen Allergy Mild itchy Verified 01/07/23 14:49 eyes, sneeze, runny nose Home Medications Medication Instructions Recorded Confirmed Last Taken Type aspirin 81 mg tablet,delayed 81 mg PO DAILY 04/02/20 12/08/22 12/09/22 History release (Adult Aspirin Regimen) baclofen 20 mg tablet 20 mg PO TID 04/02/20 12/06/22 10/29/21 History bupropion HCl 300 mg 24 hr tablet, 300 mg PO QAM 04/02/20 12/06/22 10/29/21 History extended release calcium carbonate 600 mg calcium 600 mg PO BID 04/02/20 12/06/22 04/10/21 08:00 History (1,500 mg) tablet docusate sodium 100 mg capsule 200 mg PO BID 04/02/20 12/06/22 10/29/21 History fluticasone propionate 50 1 spray intranasal DAILY 04/02/20 12/06/22 10/29/21 History mcg/actuation nasal spray,suspension hydroxyzine HCl 25 mg tablet 25 mg PO BID PRN Anxiety 04/02/20 12/06/22 Unknown History lisinopril 5 mg tablet 5 mg PO .DAILY@NOON 02/12/1112/06/22 10/29/21 History rivaroxaban 20 mg tablet (Xarelto) 20 mg PO DAILY@1700 04/02/20 12/06/22 12/12/22 History rosuvastatin 40 mg tablet 40 mg PO DAILY 04/02/20 12/06/22 10/29/21 History tamsulosin 0.4 mg capsule 0.4 mg PO .BID@NOON+BEDTIME 04/02/20 12/06/22 10/29/21 History torsemide 20 mg tablet 20 mg PO BEDTIME 04/02/20 12/06/22 10/29/21 History clonazepam 0.5 mg tablet 0.5 mg PO TID 05/26/20 12/06/22 10/29/21 History nitroglycerin 0.4 mg sublingual 0.4 mg sublingual ONCE PRN Chest 05/26/20 12/06/22 Unknown History tablet Pain pen needle, diabetic 32 gauge x #50 ea 05/26/20 10/08/22 Unknown History primidone 250 mg tablet 250 mg PO BID 10/31/20 12/06/22 10/29/21 History cetirizine 10 mg tablet 1 tab PO .DAILY@NOON 04/07/21 12/06/22 10/29/21 History mirtazapine 7.5 mg tablet 1 tab PO DAILY 04/07/21 12/06/22 10/29/21 History isosorbide mononitrate 60 mg 2 tab PO QAM 04/20/21 12/06/22 10/29/21 History tablet,extended release 24 hr melatonin 5 mg tablet 2 tab PO DAILY 04/20/21 12/06/22 Unknown History sertraline 50 mg tablet 1.5 tab PO DAILY 04/20/21 12/06/22 10/29/21 History pseudoephedrine HCl 120 mg 120 mg PO Q12H 09/07/21 12/06/22 10/29/21 History tablet,extended release sucralfate 1 gram tablet 1 g PO BID 09/07/21 12/06/22 12/17/22 History cholecalciferol (vitamin D3) 25 25 mcg PO QAM 08/10/22 12/06/22 Unknown History mcg (1,000 unit) tablet eplerenone 25 mg tablet 25 mg PO .DAILY@NOON 08/10/22 12/06/22 Unknown History famotidine 40 mg tablet 40 mg PO BEDTIME 08/10/22 12/06/22 Unknown History metoprolol succinate 50 mg 50 mg PO BEDTIME 08/10/22 12/06/22 Unknown History tablet,extended release 24 hr prazosin 5 mg capsule 5 mg PO DAILY 08/10/22 12/06/22 Unknown History insulin glargine 100 unit/mL (3 13 unit subcut BEDTIME 10/08/22 12/06/22 Unknown History mL) subcutaneous pen (Basaglar KwikPen U-100 Insulin) Exam Exam Date and Time: December 07, 2022 1045 Height,Weight and Vital Signs: Height 5 ft 7.99 in Weight 94.347 kg Pertinent Lab Results Pertinent Lab Results: Laboratory Tests 11/15/22 12:33 WBC 7.4 Hgb 14.5 Hct 47.3 Plt Count 223 Sodium 142 Potassium 5.1 D Chloride 108 Carbon Dioxide 25 BUN 28 H Creatinine 1.16 Narrative Narrative: ECHO 2022 1. Moderate basal septal hypertrophy. LV size is grossly nml and global systolic function appears low-normal with a visually estimated LVEF 50-55%. Although suboptimally visualized despite use of echo enhancement agent, the basal to mid inferior and inferolateral segments are hypokinetic 2. RV is suboptimally visualized but appears normal in size and mildly reduced in function 3. LA is moderated dilated. Interatrial septum appears intact 4. Calcified aortic and mitral valves without significant stenosis or regurg 5. PASP 27mmHg 6. Inferior vena cava size is normal with normal inspiratory collapse. 7. No significant pericardial effusion 8. Ascending aorta and aortic root are normal Compared with 03/2020 - global LV systolic function declined from hyperdynamic to low-normal to mildly reduced. Assessment and Plan Assessment Anesthesia Assessment: Chart Reviewed Final Anesthetic Review Family History of Problems with Anesthesia: No History of Problems with Anesthesia: No Documented by User: Karthik Barker MD 01/13/23 18:47 HPI - Anesthesia Eval Consult details Narrative: 72yo M for Cholecystectomy Laparoscopic, possible open CAD with hx CABG 1988, july 2018 c4 CHF. afib, AAA repair Cardiac optimized. Last office visit 10/2022 - well compensated and euvolemic from a heart failure standpoint Xarelto for afib ECHO 11/29/22 - DELMY / Central sleep apnea. Recent repeat sleep study. No results available Follows renal for CKD St 3. 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, lumbar region PVD (peripheral vascular disease) Mood disorder On beta ruddy at home Benign essential tremor CVA (cerebral vascular accident) IDDM (insulin dependent diabetes mellitus) Sleep apnea Chronic renal insufficiency Myocardial infarction CHF (congestive heart failure) CAD (coronary artery disease) AAA (abdominal aortic aneurysm) Arrhythmia On anticoagulant therapy Elevated cholesterol HTN (hypertension) History of ischemic cardiomyopathy 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 Functional capacity: independent ambulation Family History Family History Father Hx of congenital heart disease Mother Hx of heat stroke Surgical History Surgical History History of laparoscopic cholecystectomy (12/08/22) History of surgery History of surgery History of PTCA Hx of parathyroidectomy Hx of CABG History of hernia repair Hx of gastric bypass Hx of endoscopy History of colonoscopy Social History Household Members: None Housing: Apartment Are you a primary acute care occupational therapist to a significant other at home: No Do you presently have visiting nurse or other home services: Yes (PSYCHIATRIC MENTAL HEALTH NURSE 2 hours per week) Alcohol intake: current Alcohol intake frequency: holidays/special occasions only Patient Tobacco Use Status: Former Tobacco user Quit Date: 1988 Tobacco use type: Cigarette Second Hand Smoke Exposure: No Meds Allergies Allergy/AdvReac Type Severity Reaction Status Date / Time grass pollen Allergy Mild unknown Verified 01/07/23 14:49 tree and shrub pollen Allergy Mild itchy Verified 01/07/23 14:49 eyes, sneeze, runny nose Home Medications Medication Instructions Recorded Confirmed Last Taken Type aspirin 81 mg tablet,delayed 81 mg PO DAILY 04/02/20 12/08/22 12/09/22 History release (Adult Aspirin Regimen) baclofen 20 mg tablet 20 mg PO TID 04/02/20 12/06/22 10/29/21 History bupropion HCl 300 mg 24 hr tablet, 300 mg PO QAM 04/02/20 12/06/22 10/29/21 History extended release calcium carbonate 600 mg calcium 600 mg PO BID 04/02/20 12/06/22 04/10/21 08:00 History (1,500 mg) tablet docusate sodium 100 mg capsule 200 mg PO BID 04/02/20 12/06/22 10/29/21 History fluticasone propionate 50 1 spray intranasal DAILY 04/02/20 12/06/22 10/29/21 History mcg/actuation nasal spray,suspension hydroxyzine HCl 25 mg tablet 25 mg PO BID PRN Anxiety 04/02/20 12/06/22 Unknown History lisinopril 5 mg tablet 5 mg PO .DAILY@NOON 04/02/20 12/06/22 10/29/21 History rivaroxaban 20 mg tablet (Xarelto) 20 mg PO DAILY@1700 04/02/20 12/06/22 12/12/22 History rosuvastatin 40 mg tablet 40 mg PO DAILY 04/02/20 12/06/22 10/29/21 History tamsulosin 0.4 mg capsule 0.4 mg PO .BID@NOON+BEDTIME 04/02/20 12/06/22 10/29/21 History torsemide 20 mg tablet 20 mg PO BEDTIME 04/02/20 12/06/22 10/29/21 History clonazepam 0.5 mg tablet 0.5 mg PO TID 05/26/20 12/06/22 10/29/21 History nitroglycerin 0.4 mg sublingual 0.4 mg sublingual ONCE PRN Chest 05/26/20 12/06/22 Unknown History tablet Pain pen needle, diabetic 32 gauge x #50 ea 05/26/20 10/08/22 Unknown History primidone 250 mg tablet 250 mg PO BID 10/31/20 12/06/22 10/29/21 History cetirizine 10 mg tablet 1 tab PO .DAILY@NOON 04/07/21 12/06/22 10/29/21 History mirtazapine 7.5 mg tablet 1 tab PO DAILY 04/07/21 12/06/22 10/29/21 History isosorbide mononitrate 60 mg 2 tab PO QAM 04/20/21 12/06/22 10/29/21 History tablet,extended release 24 hr melatonin 5 mg tablet 2 tab PO DAILY 04/20/21 12/06/22 Unknown History sertraline 50 mg tablet 1.5 tab PO DAILY 04/20/21 12/06/22 10/29/21 History pseudoephedrine HCl 120 mg 120 mg PO Q12H 09/07/21 12/06/22 10/29/21 History tablet,extended release sucralfate 1 gram tablet 1 g PO BID 09/07/21 12/06/22 12/17/22 History cholecalciferol (vitamin D3) 25 25 mcg PO QAM 08/10/22 12/06/22 Unknown History mcg (1,000 unit) tablet eplerenone 25 mg tablet 25 mg PO .DAILY@NOON 08/10/22 12/06/22 Unknown History famotidine 40 mg tablet 40 mg PO BEDTIME 08/10/22 12/06/22 Unknown History metoprolol succinate 50 mg 50 mg PO BEDTIME 08/10/22 12/06/22 Unknown History tablet,extended release 24 hr prazosin 5 mg capsule 5 mg PO DAILY 08/10/22 12/06/22 Unknown History insulin glargine 100 unit/mL (3 13 unit subcut BEDTIME 10/08/22 12/06/22 Unknown History mL) subcutaneous pen (Basaglar KwikPen U-100 Insulin) Exam Airway Mallampati Class: IV Loose/Missing/Broken Teeth: Yes Assessment and Plan Final Anesthetic Review NPO: Yes ASA Class: IV Final Preanesthetic Review: Meds/Allgs Chart Reviewed, Consent Obtained/Reviewed and Anes Risks/Benef Reviewed Patient Risk: High Procedure Risk: Intermediate Anesthetic Plan Anesthetic Plan: GA and Agree w/ Assess. and Plan Disposition: Standard PACU
--- NOTE | 2022-12-07 14:32 | MHC.SHP ---
Pre-Procedural Eval Section A Date of Service: 12/07/22 The patient is an INPATIENT: No Changes since office visit: No Cold of Flu in the past 2 weeks, No New Medical Problems, No Changes in Medication and No Patient answered all questions The History & Physical has been completed within 30 days and I have reviewed it.: Yes Section B Chief Complaint: Calculus of gallbladder without cholecystitis with Allergies: Allergies Allergy/AdvReac Type Severity Reaction Status Date / Time grass pollen Allergy Mild unknown Verified 11/26/22 11:19 tree and shrub pollen Allergy Mild itchy Verified 11/26/22 11:19 eyes, sneeze, runny nose Plan I have reviewed the history and physical and performed a pertinent physical examination on my patient. No changes have occurred unless specified. Time Spent With Patient Time: Total time managing care of this patient today ____ minutes.
[2022-12-08] VITALS (12 sets, daily range): BP systolic 104–173; BP diastolic 64–88; PULSE 33–70; RESP 16–20; TEMP 36.2–36.8; O2SAT 95–98
--- NOTE | 2022-12-08 10:10 | ECG_ITS ---
Test Reason : cardiac hx Blood Pressure : / mmHG Vent. Rate : 040 BPM Atrial Rate : 000 BPM P-R Int : 000 ms QRS Dur : 122 ms QT Int : 500 ms P-R-T Axes : 000 015 073 degrees QTc Int : 407 ms Atrial fibrillation with slow ventricular response Minimal voltage criteria for LVH, may be normal variant ( Emmett product ) Inferior infarct (cited on or before 04-NOV-2003) Abnormal ECG When compared with ECG of 20-SEP-2018 13:28, Vent. rate has decreased BY 28 BPM Nonspecific T wave abnormality no longer evident in Inferior leads Nonspecific T wave abnormality, improved in Anterolateral leads QT has shortened Referred By: Marquita Sanchez Electronically Signed By:CAMRON GARCIA MD
[2022-12-08] MEDS: Lactated Ringers 1,000 ML 50 ML IVCONT (10:56)
[2022-12-08 11:14] LABS: Glucose, Whole Blood 104 mg/dL (60-115)
--- NOTE | 2022-12-08 11:39 | PC.NURSE ---
patient remains asymtpoamtci evert carrion his heart rate dropped into the 30s, resting comfortably.
--- NOTE | 2022-12-08 14:10 | W.PM.OPN ---
Operative Note Operative Note Date of Service: 12/08/22 Narrative: Preoperative diagnosis: [] recurrent biliary colic Postop diagnosis: [] same Procedure [] laparoscopic cholecystectomy Surgeon: [] Ron Office Helper Clerical: [] Jose Maria Type of Anesthesia: [] general Indication for surgery: [] recurrent biliary colic. Intraoperative findings demonstrated a markedly corpulent abdomen. Patient had dense and profound omental adhesions to the gallbladder and liver. intrahepatic gallbladder. Findings: [] Patient brought to the operating room, placed on operative table in supine position, after adequate level of general anesthesia was induced, the patient's abdomen ,which was very corpulent, was prepped draped in usual sterile fashion. Using a supraumbilical curvilinear incision, Gonzalez technique was used to insufflate down the cavity to 15 minute of CO2. Upper midline and right subcostal ports were placed under direct laparoscopic view, and the patient placed in reverse Trendelenburg position, and tilted to the left. Dense omental adhesions were taken down using Kathi with Bovie. Gallbladder then identified and grasped you with laparoscopic graspers and retracted superiorly and laterally. Hilum was approached with the cystic artery and cystic duct were each identified, circumferentially skeletonized, each traced directly into the gallbladder and critical view obtained. Each was clipped proximally x2, distally x1, and transected. Gallbladder which was moderately intrahepatic was then cauterized from the gallbladder fossa using Bovie. Specimen was placed in an Endo-Catch bag, a retrieved through the umbilical port. Abdominal cavity was copiously irrigated, and secured hemostasis. All ports were removed under direct laparoscopic view. Wounds were closed in the following manner; umbilical wound has fascia reapproximated using interrupted 0 Vicryl sutures. Skin wounds were closed using subcuticular 4-0 Vicryl sutures followed by Steri-Strips sterile dressings. Wounds were infiltrated with 0.5% Marcaine/ 1% lidocaine at completion. Sponge, needle, and instrument counts reported correct. Patient tolerated the procedure well and emerged anesthesia In stable condition. EBL minimal
[2022-12-08] MEDS: Acetaminophen 1,000 MG/100 ML PIGGYBACK 400 MG IV (14:43)
== END 2022-12-08 15:41 | disposition home or self-care (01) ==
PROVIDERS: PCP Student in an Organized Health Care Education/Training Program; Visit Provider Surgery
PROC: 0FT44ZZ Resection of Gallbladder, Percutaneous Endoscopic Approach (ICD-10-PCS; CPT 47562; principal; 2022-12-08 11:30)
DX: K80.10 Calculus of gallbladder with chronic cholecystitis without obstruction (principal); K82.8 Other specified diseases of gallbladder; I13.0 Hypertensive heart and chronic kidney disease with heart failure and stage 1 through stage 4 chronic kidney disease, or unspecified chronic kidney disease; E11.22 Type 2 diabetes mellitus with diabetic chronic kidney disease; N18.30 Chronic kidney disease, stage 3 unspecified; I50.9 Heart failure, unspecified; Z87.891 Personal history of nicotine dependence; I25.2 Old myocardial infarction; I25.10 Atherosclerotic heart disease of native coronary artery without angina pectoris; Z95.5 Presence of coronary angioplasty implant and graft; Z95.1 Presence of aortocoronary bypass graft; I71.40 Abdominal aortic aneurysm, without rupture, unspecified; Z79.82 Long term (current) use of aspirin; Z79.4 Long term (current) use of insulin; Z79.01 Long term (current) use of anticoagulants; Z79.899 Other long term (current) drug therapy; Z98.84 Bariatric surgery status; Z98.890 Other specified postprocedural states
CPT/HCPCS: 47562; 82947; 88304; 93005; J0131; J0690; J1100; J2250; J2405; J2795; J3010

== ENCOUNTER → 2022-12-08 09:15 | Outpatient (BNV) | payer MEDICARE, MEDICAID, SELFPAY | PROVIDERS: PCP Student in an Organized Health Care Education/Training Program; Visit Provider Surgery | DX: K80.10 Calculus of gallbladder with chronic cholecystitis without obstruction (principal) | CPT/HCPCS: 47562 ==

== ENCOUNTER 2022-12-14 11:47 | Outpatient (REF) | payer MEDICARE, MEDICAID, SELFPAY ==
[2022-12-14 14:35] LABS: Appearance Urine Clear; Color Urine Yellow; Glucose Urine UA >=1000 mg/dL (Negative); Leukocyte Esterase Urine Negative (Negative); Nitrite Urine Negative (Negative); PH 5.5 (5.0-9.0); Specific Gravity - Urine 1.015 (1.005-1.025); UMIC TRIGGER UA YES; Urine Blood Negative (Negative); Urine Ketones Negative (Negative); Urine Protein Negative (Neg-Trace)
[2022-12-14 14:42] LABS: Bacteria Urine None Seen (None Seen); RBC Urine 0-2 /HPF (0-2); Squamous Epithelial Cell Urine 0-2 /HPF (0-2); WBC Urine 0-5 /HPF (0-5)
[2022-12-14 15:04] LABS: Anion Gap 16 (12-20); Blood Urea Nitrogen 13 mg/dL (9-16); Calcium 9.1 mg/dL (8.4-10.2); Carbon Dioxide 24 mmol/L (22-29); Chloride 110 mmol/L (96-108); Estimated Glomerular Filt Rate > 60; Sodium 146 mmol/L (135-145)
[2022-12-14 23:46] LABS: Creatinine Urine 39.61 mg/dL; Microalbumin Urine < 5.0 mg/L; Total Protein Urine Random < 7 mg/dL (<12)
== END 2022-12-14 11:48 | disposition home or self-care (01) ==
LOC: HO.CHCLDS 11:47
PROVIDERS: Visit Provider Internal Medicine Nephrology
DX: E11.22 Type 2 diabetes mellitus with diabetic chronic kidney disease (principal); N18.31 Chronic kidney disease, stage 3a
CPT/HCPCS: 36415; 80051; 81001; 82043; 82310; 82565; 82570; 84156; 84520

== ENCOUNTER 2022-12-17 06:46 | Day surgery (SDC) | payer MEDICARE, MEDICAID, SELFPAY ==
[2022-12-15 15:14] VITALS: BMI 31.6
--- NOTE | 2022-12-16 11:43 | HO.ANESPROP2 ---
Documented by User: Marquita Sanchez NP 12/16/22 11:50 HPI - Anesthesia Eval Consult details Narrative: 72yo M for L5-S1 basivertebral nerve ablation Intracept RFA s/p lap sonia 12/08/22 with GA-ETT 7 CAD with hx CABG 1988, july 2018 c4 CHF. afib, AAA repair Cardiac optimized. Last office visit 10/2022 - well compensated and euvolemic from a heart failure standpoint Xarelto for afib ECHO 11/29/22 - DELMY / Central sleep apnea. Recent repeat sleep study. No results available Follows renal for CKD St 3. Stable at 06/2022 office visit [facility] benign essential tremor PMFSH Active Problems Active Problems: All Active Problems (Updated 12/08/22 @ 10:57 by Claritza Salguero RN) Recurrent biliary colic (Acute) Vertebrogenic low back pain (Acute) Chronic pain syndrome (Acute) Poorly controlled type 2 diabetes mellitus (Acute) Pancreatitis (Acute) NAFLD (nonalcoholic fatty liver disease) (Acute) DMII (diabetes mellitus, type 2) (Acute) Gallstones (Acute) S/P laparoscopic sleeve gastrectomy (Acute) Chronic pain (Acute) Neck pain (Acute) Dysphagia (Acute) Depression screen (Acute) Tinnitus (Acute) Dysgeusia (Acute) Anosmia (Acute) On anticoagulant therapy (Acute) Chronic renal insufficiency (Acute) AAA (abdominal aortic aneurysm) (Acute) Disc degeneration, lumbar (Acute) Lumbago of lumbar region with sciatica (Acute) 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, lumbar region (Acute) Benign essential tremor (Acute) Spondylosis of cervical joint without myelopathy (Acute) Spondylosis of lumbosacral spine without myelopathy (Acute) Past Medical History Medical History Rheumatic fever Cardiac arrest Disc degeneration, 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, lumbar region PVD (peripheral vascular disease) Mood disorder On beta ruddy at home Benign essential tremor CVA (cerebral vascular accident) IDDM (insulin dependent diabetes mellitus) Sleep apnea Chronic renal insufficiency Myocardial infarction CHF (congestive heart failure) CAD (coronary artery disease) AAA (abdominal aortic aneurysm) Arrhythmia On anticoagulant therapy Elevated cholesterol HTN (hypertension) History of ischemic cardiomyopathy 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 Family History Family History Father Hx of congenital heart disease Mother Hx of heat stroke Family history of problems with anesthesia: No Surgical History Surgical History History of laparoscopic cholecystectomy (12/08/22) History of surgery History of surgery History of PTCA Hx of parathyroidectomy Hx of CABG History of hernia repair Hx of gastric bypass Hx of endoscopy History of colonoscopy History of Problems with Anesthesia: No Social History Social History (Updated 12/06/22 @ 12:05 by Niki Ortiz RN) Household Members: None Housing: Apartment Are you a primary acute care physical therapist to a significant other at home: No Do you presently have visiting nurse or other home services: Yes ([employer] 2 hours per week) Alcohol intake: current Alcohol intake frequency: holidays/special occasions only Patient Tobacco Use Status: Former Tobacco user Quit Date: 1988 Tobacco use type: Cigarette Second Hand Smoke Exposure: No Have you been hit, kicked, punched, or otherwise hurt by someone within the past year? If so, by whom?: No Are you DNR?: No Advance Directives: No Advance Directives Information Provided: Yes Recently lost weight without trying: No Eating poorly because of decreased appetite: No Nutrition Risks: No Nutritional Risk Poor oral hygiene: No Meds Allergies Allergy/AdvReac Type Severity Reaction Status Date / Time grass pollen Allergy Mild unknown Verified 11/26/22 11:19 tree and shrub pollen Allergy Mild itchy Verified 11/26/22 11:19 eyes, sneeze, runny nose Home Medications Medication Instructions Recorded Confirmed Last Taken Type aspirin 81 mg tablet,delayed 81 mg PO DAILY 04/02/20 12/08/22 12/09/22 History release (Adult Aspirin Regimen) baclofen 20 mg tablet 20 mg PO TID 04/02/20 12/06/22 10/29/21 History bupropion HCl 300 mg 24 hr tablet, 300 mg PO QAM 04/02/20 12/06/22 10/29/21 History extended release calcium carbonate 600 mg calcium 600 mg PO BID 04/02/20 12/06/22 04/10/21 08:00 History (1,500 mg) tablet docusate sodium 100 mg capsule 200 mg PO BID 04/02/20 12/06/22 10/29/21 History fluticasone propionate 50 1 spray intranasal DAILY 04/02/20 12/06/22 10/29/21 History mcg/actuation nasal spray,suspension hydroxyzine HCl 25 mg tablet 25 mg PO BID PRN Anxiety 04/02/20 12/06/22 Unknown History lisinopril 5 mg tablet 5 mg PO .DAILY@NOON 04/02/20 12/06/22 10/29/21 History rivaroxaban 20 mg tablet (Xarelto) 20 mg PO DAILY@1700 04/02/20 12/06/22 12/12/22 History rosuvastatin 40 mg tablet 40 mg PO DAILY 04/02/20 12/06/22 10/29/21 History tamsulosin 0.4 mg capsule 0.4 mg PO .BID@NOON+BEDTIME 04/02/20 12/06/22 10/29/21 History torsemide 20 mg tablet 20 mg PO BEDTIME 04/02/20 12/06/22 10/29/21 History clonazepam 0.5 mg tablet 0.5 mg PO TID 05/26/20 12/06/22 10/29/21 History nitroglycerin 0.4 mg sublingual 0.4 mg sublingual ONCE PRN Chest 05/26/20 12/06/22 Unknown History tablet Pain pen needle, diabetic 32 gauge x #50 ea 05/26/20 10/08/22 Unknown History primidone 250 mg tablet 250 mg PO BID 10/31/20 12/06/22 10/29/21 History cetirizine 10 mg tablet 1 tab PO .DAILY@NOON 04/07/21 12/06/22 10/29/21 History mirtazapine 7.5 mg tablet 1 tab PO DAILY 04/07/21 12/06/22 10/29/21 History isosorbide mononitrate 60 mg 2 tab PO QAM 04/20/21 12/06/22 10/29/21 History tablet,extended release 24 hr melatonin 5 mg tablet 2 tab PO DAILY 04/20/21 12/06/22 Unknown History sertraline 50 mg tablet 1.5 tab PO DAILY 04/20/21 12/06/22 10/29/21 History pseudoephedrine HCl 120 mg 120 mg PO Q12H 07/18/22 10/16/23 09/08/22 History tablet,extended release sucralfate 1 gram tablet 1 g PO BID 09/07/21 12/06/22 12/17/22 History cholecalciferol (vitamin D3) 25 25 mcg PO QAM 08/10/22 12/06/22 Unknown History mcg (1,000 unit) tablet eplerenone 25 mg tablet 25 mg PO .DAILY@NOON 08/10/22 12/06/22 Unknown History famotidine 40 mg tablet 40 mg PO BEDTIME 08/10/22 12/06/22 Unknown History metoprolol succinate 50 mg 50 mg PO BEDTIME 08/10/22 12/06/22 Unknown History tablet,extended release 24 hr prazosin 5 mg capsule 5 mg PO DAILY 08/10/22 12/06/22 Unknown History insulin glargine 100 unit/mL (3 13 unit subcut BEDTIME 10/08/22 12/06/22 Unknown History mL) subcutaneous pen ([employer] U-100 Insulin) Exam Exam Date and Time: December 16, 2022 1143 Height,Weight and Vital Signs: Height 5 ft 8 in Weight 94.347 kg Pertinent Lab Results Pertinent Lab Results: Laboratory Tests 11/15/22 12/14/22 12:33 11:53 WBC 7.4 Hgb 14.5 Hct 47.3 Plt Count 223 Sodium 146 H Potassium 4.0 D Chloride 110 H Carbon Dioxide 24 BUN 13 Creatinine 0.96 Narrative Narrative: EKG 11/2022 Vent. Rate : 040 BPM Atrial Rate : 000 BPM P-R Int : 000 ms QRS Dur : 122 ms QT Int : 500 ms P-R-T Axes : 000 015 073 degrees QTc Int : 407 ms Atrial fibrillation with slow ventricular response Minimal voltage criteria for LVH, may be normal variant ( Emmett product ) Inferior infarct (cited on or before 04-NOV-2003) Abnormal ECG When compared with ECG of 20-SEP-2018 13:28, Vent. rate has decreased BY 28 BPM Nonspecific T wave abnormality no longer evident in Inferior leads Nonspecific T wave abnormality, improved in Anterolateral leads QT has shortened ECHO 2022 1. Moderate basal septal hypertrophy. LV size is grossly nml and global systolic function appears low-normal with a visually estimated LVEF 50-55%. Although suboptimally visualized despite use of echo enhancement agent, the basal to mid inferior and inferolateral segments are hypokinetic 2. RV is suboptimally visualized but appears normal in size and mildly reduced in function 3. LA is moderated dilated. Interatrial septum appears intact 4. Calcified aortic and mitral valves without significant stenosis or regurg 5. PASP 27mmHg 6. Inferior vena cava size is normal with normal inspiratory collapse. 7. No significant pericardial effusion 8. Ascending aorta and aortic root are normal Compared with 03/2020 - global LV systolic function declined from hyperdynamic to low-normal to mildly reduced. Assessment and Plan Assessment Anesthesia Assessment: Chart Reviewed Final Anesthetic Review Family History of Problems with Anesthesia: No History of Problems with Anesthesia: No Documented by User: Esteban Millan MD 12/17/22 10:13 [facility] Past Medical History Medical History Rheumatic fever Cardiac arrest Disc degeneration, 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, lumbar region PVD (peripheral vascular disease) Mood disorder On beta ruddy at home Benign essential tremor CVA (cerebral vascular accident) IDDM (insulin dependent diabetes mellitus) Sleep apnea Chronic renal insufficiency Myocardial infarction CHF (congestive heart failure) CAD (coronary artery disease) AAA (abdominal aortic aneurysm) Arrhythmia On anticoagulant therapy Elevated cholesterol HTN (hypertension) History of ischemic cardiomyopathy 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 Family History Family History Father Hx of congenital heart disease Mother Hx of heat stroke Surgical History Surgical History History of laparoscopic cholecystectomy (12/08/22) History of surgery History of surgery History of PTCA Hx of parathyroidectomy Hx of CABG History of hernia repair Hx of gastric bypass Hx of endoscopy History of colonoscopy Social History Social History (Updated 12/06/22 @ 12:05 by Niki Ortiz RN) Household Members: None Housing: Apartment Are you a primary acute care physical therapist to a significant other at home: No Do you presently have visiting nurse or other home services: Yes ([employer] 2 hours per week) Alcohol intake: current Alcohol intake frequency: holidays/special occasions only Patient Tobacco Use Status: Former Tobacco user Quit Date: 1988 Tobacco use type: Cigarette Second Hand Smoke Exposure: No Have you been hit, kicked, punched, or otherwise hurt by someone within the past year? If so, by whom?: No Are you DNR?: No Advance Directives: No Advance Directives Information Provided: Yes Recently lost weight without trying: No Eating poorly because of decreased appetite: No Nutrition Risks: No Nutritional Risk Poor oral hygiene: No Meds Allergies Allergy/AdvReac Type Severity Reaction Status Date / Time grass pollen Allergy Mild unknown Verified 11/26/22 11:19 tree and shrub pollen Allergy Mild itchy Verified 11/26/22 11:19 eyes, sneeze, runny nose Home Medications Medication Instructions Recorded Confirmed Last Taken Type aspirin 81 mg tablet,delayed 81 mg PO DAILY 04/02/20 12/08/22 12/09/22 History release (Adult Aspirin Regimen) baclofen 20 mg tablet 20 mg PO TID 04/02/20 12/06/22 10/29/21 History bupropion HCl 300 mg 24 hr tablet, 300 mg PO QAM 04/02/20 12/06/22 10/29/21 History extended release calcium carbonate 600 mg calcium 600 mg PO BID 04/02/20 12/06/22 04/10/21 08:00 History (1,500 mg) tablet docusate sodium 100 mg capsule 200 mg PO BID 04/02/20 12/06/22 10/29/21 History fluticasone propionate 50 1 spray intranasal DAILY 04/02/20 12/06/22 10/29/21 History mcg/actuation nasal spray,suspension hydroxyzine HCl 25 mg tablet 25 mg PO BID PRN Anxiety 04/02/20 12/06/22 Unknown History lisinopril 5 mg tablet 5 mg PO .DAILY@NOON 04/02/20 12/06/22 10/29/21 History rivaroxaban 20 mg tablet (Xarelto) 20 mg PO DAILY@1700 04/02/20 12/06/22 12/12/22 History rosuvastatin 40 mg tablet 40 mg PO DAILY 04/02/20 12/06/22 10/29/21 History tamsulosin 0.4 mg capsule 0.4 mg PO .BID@NOON+BEDTIME 04/02/20 12/06/22 10/29/21 History torsemide 20 mg tablet 20 mg PO BEDTIME 04/02/20 12/06/22 10/29/21 History clonazepam 0.5 mg tablet 0.5 mg PO TID 05/26/20 12/06/22 10/29/21 History nitroglycerin 0.4 mg sublingual 0.4 mg sublingual ONCE PRN Chest 05/26/20 12/06/22 Unknown History tablet Pain pen needle, diabetic 32 gauge x #50 ea 05/26/20 10/08/22 Unknown History primidone 250 mg tablet 250 mg PO BID 10/31/20 12/06/22 10/29/21 History cetirizine 10 mg tablet 1 tab PO .DAILY@NOON 04/07/21 12/06/22 10/29/21 History mirtazapine 7.5 mg tablet 1 tab PO DAILY 04/07/21 12/06/22 10/29/21 History isosorbide mononitrate 60 mg 2 tab PO QAM 04/20/21 12/06/22 10/29/21 History tablet,extended release 24 hr melatonin 5 mg tablet 2 tab PO DAILY 04/20/21 12/06/22 Unknown History sertraline 50 mg tablet 1.5 tab PO DAILY 04/20/21 12/06/22 10/29/21 History pseudoephedrine HCl 120 mg 120 mg PO Q12H 09/07/21 12/06/22 10/29/21 History tablet,extended release sucralfate 1 gram tablet 1 g PO BID 09/07/21 12/06/22 12/17/22 History cholecalciferol (vitamin D3) 25 25 mcg PO QAM 08/10/22 12/06/22 Unknown History mcg (1,000 unit) tablet eplerenone 25 mg tablet 25 mg PO .DAILY@NOON 08/10/22 12/06/22 Unknown History famotidine 40 mg tablet 40 mg PO BEDTIME 08/10/22 12/06/22 Unknown History metoprolol succinate 50 mg 50 mg PO BEDTIME 08/10/22 12/06/22 Unknown History tablet,extended release 24 hr prazosin 5 mg capsule 5 mg PO DAILY 08/10/22 12/06/22 Unknown History insulin glargine 100 unit/mL (3 13 unit subcut BEDTIME 10/08/22 12/06/22 Unknown History mL) subcutaneous pen (Basaglar KwikPen U-100 Insulin) Exam Airway Mallampati Class: II TM Dist: >3cm Neck ROM: Full Loose/Missing/Broken Teeth: No Heart: ok Lungs: ok Assessment and Plan Assessment Anesthesia Assessment: Anesthesia Plan Discussed Final Anesthetic Review NPO: Yes ASA Class: III Final Preanesthetic Review: No Changes in Pt Med Stat, Meds/Allgs Chart Reviewed, Consent Obtained/Reviewed and Anes Risks/Benef Reviewed Patient Risk: High Procedure Risk: Intermediate Anesthetic Plan Anesthetic Plan: GA and Agree w/ Assess. and Plan Disposition: Standard PACU
[2022-12-17] VITALS (10 sets, daily range): BP systolic 125–154; BP diastolic 62–94; PULSE 71–90; RESP 12–18; TEMP 36.3–37.6; O2SAT 89–96
--- NOTE | ~2022-12-17 | FL_ITS ---
EXAMINATION: XR FLUOROSCOPY WITH IMAGES CLINICAL INFORMATION: L5, S1 Intracept RFA. COMPARISON: None available. TECHNIQUE: Fluoroscopy Supervised By: Dr. Chino Gates. Fluoroscopy Time: 2.5 minutes. Cumulative Dose: 164 mGy. DAP: 34.2 Gy-cm2. Images: 7. FINDINGS: Images demonstrate transpedicular probes and instruments in lower lumbar vertebral bodies and S1. FL/FL guidance in OR IMPRESSION: Fluoroscopy guidance for pain management procedure.
--- NOTE | 2022-12-17 07:39 | MHC.SHP ---
Pre-Procedural Eval Section A Date of Service: 12/17/22 The patient is an INPATIENT: No Changes since office visit: Yes Patient answered all questions The History & Physical has been completed within 30 days and I have reviewed it.: No Section B Chief Complaint: Vertebrogenic low back pain Details of Present Illness: as above Relevant Family History (Specify if Yes): No Relevant Social History: None Present Medications: None Medical History: No relevant PMH History of Previous Operations: Relevant previous surgery/procedure and date(s) (scs implant Nevro failed to help this patient's pain) Allergies: Allergies Allergy/AdvReac Type Severity Reaction Status Date / Time grass pollen Allergy Mild unknown Verified 11/26/22 11:19 tree and shrub pollen Allergy Mild itchy Verified 11/26/22 11:19 eyes, sneeze, runny nose Review of Systems Sugical H&P ROS: Negative: Constitution, Cardiovascular, Respiratory, Neurological, Psychiatric, Hem-Onc, Allergic/Immunologic, Gastrointestinal, Genitourinary, Musculoskeletal, Integumentary, Endocrine and Eyes/Ears/Nose/Throat Exam Surgical H&P Exam: Normal: HEENT, Normal: Heart, Normal: Lungs, Normal: Extremities, Normal: Abdomen, Normal: Skin and Normal: Neurological Plan Diagnosis/Plan: Unchanged I have reviewed the history and physical and performed a pertinent physical examination on my patient. I am going to perform L3, L5 and S1 RFA of basivertebral nerves/ Intacept procedure Time Spent With Patient Time: Total time managing care of this patient today ____ minutes.
[2022-12-17 07:58] LABS: Glucose, Whole Blood 102 mg/dL (60-115)
--- NOTE | 2022-12-17 12:33 | P.BOP_ITS ---
Brief Operative Note Date of Service: 12/17/22 Pre-op diagnosis: vertebrogenic back pain Post-op diagnosis: same Procedure: L3, L5 and S1 basivertebral nerves radiofrequency ablation Intrcept procedure Surgeon: Chino Gates MD Anesthesia: GLMA Was an Criminal Justice Instructor used for this Procedure?: No Estimated blood loss (mL): 18 Condition: stable Disposition: PACU
--- NOTE | 2022-12-17 12:36 | P.OP_ITS ---
Operative Note Operative Note Date of Service: 12/17/22 Narrative: RFA of the L3 and L5 and 1 basivertebral nerves Intracept. Procedure: Basivertebral nerve (BVN) ablation? Intracept Procedure S1, L5 and L3 Indications for Procedure:? Malik ?is very pleasant 72 years old male who is suffering from axial low back pain exacerbated by forward flexing, prolong sitting, prolonged standing, walking.?The pain is without the radiation into the lower extremities.? Prior to that the patient received multiple injections to treat axial back pain including medial branch blocks and sacroiliac joint injections bilateral however those injections were not effective for control of her pain.? He also was given Nevro spinal cord stimulator which was very effective for his pain for about 14 month intervale.? However later on it became less effective. He was sent to MRI and ?attention was attracted to Modic type changesat the above mentioned vertebrae and he was offered Intracept procedure, he came today to the operating room to receive the procedure.? Informed consent was obtained delineating risk of bleeding, infection, including osteomyelitis of the bertebral bodies, peripheral nerve damage , damage to spinal canal with CSF leak , post dural puncture headache.? The patient came to the operating room ?and position prone on the operating table.? [employer] monitors were applied, general anesthesia was induced and LMA was inserted witho ut complications. Procedure Time Out: Patient ID confirmed, correct procedure to be performed, correct site and/or side for procedure , need for antibiotic administration, need for DVT prophylaxis, risk of fire.? The patient received cefazolin 2 g intravenously 30 minutes before onset of the procedure as well as dexamethasone 4 mg intravenously push. The entire back was sterilely prepped with ChloraPrep twice and draped with sterile self adhesive utility towels and covered with full body drape.? Two sterilely draped C-arms were positioned in fixed anterior posterior and lateral positions alongside the patient's torso.?? C-arm were moved to visualize the target at the superolateral aspect of S1. The C-arm was rotated to a [place] view to square off the superior endplate at S1. The C-arm was then rotated to the right approximately 15-20 degrees for an approach to the right S1 pedicle. The skin entry point was identified and infiltrated with mixture of 2% lidocaine with ropivacaine 0.5% 1 to 1 4 cc. A 22-gauge 5-inch spinal needle was used to anesthetize the track to the? pedicle and periosteum and confirm the introducer cannula trajectory. A small horizontal 5 mm skin incision was made with 10 scalpel blade. The introducer cannula with bevel tip was then introduced through the skin, subcutaneous tissue and paraspinal muscle until bony contact was made. The position was checked in the AP and lateral plane. Using a mallet, the trocar was then advanced through the pedicle to the posterior aspect of the vertebral body using a combination of AP and lateral views to ensure appropriate traversing of the pedicle and no breaching of the pedicle medially. Once the trocar was in the posterior aspect of the S1 vertebral body, the trocar was removed from the cannula and the curved cannula assembly with the nitinol J-stylet was inserted. The spin wheel was rotated counterclockwise permitting excursion of the J-stylet. The curved cannula assembly was then advanced using a mallet in 1-2 mm increments. The J- stylet was observed to traverse the vertebral body in the midline in both the AP and lateral views. The J-stylet was removed and replaced with the straight stylet to reach the BVN target. Target was reached when the tip of the stylet was noted to be approximately 50% anterior of the posterior wall of the S1 in the lateral view, 40% inferior from the superior endplate and it crossed the midline of the S1 spinous process in the AP view. The stylet was then removed. The bipolar radiofrequency (RF) probe was ?inserted into the introducer cannula. The spin wheel was rotated clockwise to retract the PEEK sleeve to expose the proximal electrode on the radiofrequency probe. The BVN was then ablated using [employer]?s standard RFG algorithm. --- While the ablation was occurring at below level the C-arm was moved to visualize the target at the superolateral aspect of the L5 vertebral body using the approach similar to the S1 vertebral body this time on the left side. The C-arm was rotated to square off the superior endplate at L5 and rotated left to obtain an oblique view. The superolateral ?left L 5 pedicle was identified, and the skin entry point identified and infiltrated with mixture of 2% lidocaine with ropivacaine 0.5% one to one using a 25- gauge 1-1/2 inch needle. A 22-gauge 5- inch spinal needle was used to anesthetize the track to the pedicle and periosteum and confirm the introducer cannula trajectory. A skin incision was made with 10 scalpel blade 5 mm. The introducer cannula with bevel tip was then introduced through the skin, subcutaneous tissue and paraspinal muscle until bony contact was made. The position was checked in the AP and lateral plane. Using a mallet, the trocar was then advanced through the pedicle to the posterior aspect of the vertebral body using a combination of AP and lateral views to ensure appropriate traversing of the pedicle and no breaching of the pedicle medially or inferiorly. Once the trocar was in the posterior aspect of the L5 vertebral body, the trocar was removed from the cannula and the curved cannula assembly with the nitinol J-stylet was inserted. The spin wheel was rotated counterclockwise permitting excursion of the J-stylet. The curved cannula assembly was then advanced using a mallet in 1-2 mm increments. The J- stylet was observed to traverse the vertebral body in the AP and lateral views. Target was reached when the tip of the stylet was 45 % anterior of the posterior wall of the L5 in the lateral view (midway between the superior and inferior endplates) and it crossed the midline of the L5 spinous process in the AP view. The stylet was then removed. The bipolar radiofrequency (RF) probe was removed from the previous vertebral body, the tip cleaned and was inserted into the introducer cannula in its ablation position. The spin wheel was rotated clockwise to retract the PEEK sleeve to expose the proximal electrode on the radiofrequency probe. The BVN was then ablated using [employer]?s standard RFG algorithm. After that the procedure was repeated at L3 vertebra this time on the right side in similar to the two previous vertebras fashion: While the ablation was occurring at below level the C-arm was moved to visualize the target at the superolateral aspect of the L3 vertebral body using the approach similar to the L5 vertebral body this time on the right side. The C-arm was rotated to square off the superior endplate at L5 and rotated right to obtain an oblique view. The superolateral ?left L 5 pedicle was identified, and the skin entry point identified and infiltrated with mixture of 2% lidocaine with ropivacaine 0.5% one to one using a 25- gauge 1-1/2 inch needle. A 22-gauge 5-inch spinal needle was used to anesthetize the track to the pedicle and periosteum and confirm the introducer cannula trajectory. A skin incision was made with 10 scalpel blade 5 mm. The introducer cannula with bevel tip was then introduced through the skin, subcutaneous tissue and paraspinal muscle until bony contact was made. The position was checked in the AP and lateral plane. Using a mallet, the trocar was then advanced through the pedicle to the posterior aspect of the vertebral body using a combination of AP and lateral views to ensure appropriate traversing of the pedicle and no breaching of the pedicle medially or inferiorly. Once the trocar was in the posterior aspect of the L3 vertebral body, the trocar was removed from the cannula and the curved cannula assembly with the nitinol J- stylet was inserted. The spin wheel was rotated counterclockwise permitting excursion of the J-stylet. The curved cannula assembly was then advanced using a mallet in 1-2 mm increments. The J-stylet was observed to traverse the vertebral body in the AP and lateral views. Target was reached when the tip of the stylet was 45 % anterior of the posterior wall of the L3 in the lateral view (midway between the superior and inferior endplates) and it crossed the midline of the L5 spinous process in the AP view. The stylet was then removed. The bipolar radiofrequency (RF) probe was inserted into the introducer cannula. The spin wheel was rotated clockwise to retract the PEEK sleeve to expose the proximal electrode on the radiofrequency probe. The BVN was then ablated using [employer]?s standard RFG algorithm. Upon completion of the procedure the instruments were removed from the patient, single silk 0-0 suture were applied to the each patient's 3 small incisions. Sterile dressing with bacitracin applied. The patient was awaken, extubated, taken outside of the operating room to recovery room where he recovered uneventfully.
[2022-12-17] MEDS: oxyCODONE HCl Immed Release 5 MG TABLET 10 MG PO (12:55)
[2022-12-17 13:10] LABS: Glucose, Whole Blood 108 mg/dL (60-115)
[2022-12-17] MEDS: fentaNYL citrate/PF 100 MCG/2 ML VIAL 50 MCG IVPUSH (13:10)
[2022-12-17] MEDS: Acetaminophen 325 MG TABLET 650 MG PO (13:53)
== END 2022-12-17 15:16 | disposition home or self-care (01) ==
PROVIDERS: PCP Student in an Organized Health Care Education/Training Program; Visit Provider Anesthesiology
PROC: (CPT 64628; principal; 2022-12-17 08:40)
DX: M54.51 Vertebrogenic low back pain (principal); G89.4 Chronic pain syndrome; M51.36 Other intervertebral disc degeneration, lumbar region; M47.817 Spondylosis without myelopathy or radiculopathy, lumbosacral region; M49.86 Spondylopathy in diseases classified elsewhere, lumbar region; M47.812 Spondylosis without myelopathy or radiculopathy, cervical region; I48.91 Unspecified atrial fibrillation; G25.0 Essential tremor; Z86.73 Personal history of transient ischemic attack (TIA), and cerebral infarction without residual deficits; E11.22 Type 2 diabetes mellitus with diabetic chronic kidney disease; I13.0 Hypertensive heart and chronic kidney disease with heart failure and stage 1 through stage 4 chronic kidney disease, or unspecified chronic kidney disease; N18.9 Chronic kidney disease, unspecified; I50.9 Heart failure, unspecified; I25.10 Atherosclerotic heart disease of native coronary artery without angina pectoris; Z95.1 Presence of aortocoronary bypass graft; Z79.4 Long term (current) use of insulin; Z79.01 Long term (current) use of anticoagulants; Z87.891 Personal history of nicotine dependence; Z79.82 Long term (current) use of aspirin; Z79.899 Other long term (current) drug therapy; Z98.890 Other specified postprocedural states
CPT/HCPCS: 64628; 64629; 82947; C1889; J0690; J1100; J2250; J2795; J3010

== ENCOUNTER → 2022-12-17 06:46 | Outpatient (BNV) | payer MEDICARE, MEDICAID, SELFPAY | PROVIDERS: PCP Student in an Organized Health Care Education/Training Program; Visit Provider Anesthesiology | DX: M54.51 Vertebrogenic low back pain (principal) | CPT/HCPCS: 64628; 64629 ==

== ENCOUNTER 2022-12-20 12:45 | Outpatient (AMB) | payer MEDICARE, MEDICAID, SELFPAY ==
[2022-12-20 12:57] VITALS: BP 121/81; PULSE 87
--- NOTE | 2022-12-20 12:57 | A.OFFVIS_ITS ---
Intake Vital Signs 12/20/22 12:57 Weight 215 lb BP 121/81 Blood Pressure Location Rt brachial Position Sitting Pulse 87 Intake Visit Reasons: S/p lap cholecystectomy Intake Note: Patient here s/p lap sonia. Patient reports pain and tenderness to touch. Denies bleeding or oozing at incision sites. Taking tylenol as needed. Regrinder Required: No Accompanied by: Self / Same As Patient Allergies grass pollen Allergy (Mild, Verified 12/20/22 12:59) unknown tree and shrub pollen Allergy (Mild, Verified 12/20/22 12:59) itchy eyes, sneeze, runny nose HPI HPI Comments History of Present Illness Details Patient status post lap choly. He is doing quite well. He has time diet he is having normal bowel habits. He has minimal incisional discomfort. His right upper quadrant symptoms have resolved. 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, lumbar region PVD (peripheral vascular disease) Mood disorder On beta ruddy at home Benign essential tremor CVA (cerebral vascular accident) IDDM (insulin dependent diabetes mellitus) Sleep apnea Chronic renal insufficiency Myocardial infarction CHF (congestive heart failure) CAD (coronary artery disease) AAA (abdominal aortic aneurysm) Arrhythmia On anticoagulant therapy Elevated cholesterol HTN (hypertension) History of ischemic cardiomyopathy 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 Surgical History History of laparoscopic cholecystectomy (12/08/22) History of surgery History of surgery History of PTCA Hx of parathyroidectomy Hx of CABG History of hernia repair Hx of gastric bypass Hx of endoscopy History of colonoscopy Family History Father Hx of congenital heart disease Mother Hx of heat stroke Social History Household Members: None Housing: Apartment Are you a primary acute care assistant to a significant other at home: No Do you presently have visiting nurse or other home services: Yes ([employer] 2 hours per week) Alcohol intake: current Alcohol intake frequency: holidays/special occasions only Patient Tobacco Use Status: Former Tobacco user Quit Date: 1988 Tobacco use type: Cigarette Second Hand Smoke Exposure: No Physical Exam Vital Signs: Last Vital Signs Pulse 87 12/20/22 12:57 BP 121/81 12/20/22 12:57 Eyes Other: Anicteric GI Other: Abdomen soft. All wounds clean dry and intact healing uneventfully. Resolving ecchymosis. Assessment & Plan Assessment & Plan (1) Recurrent biliary colic: Code(s): K80.50 - Calculus of bile duct without cholangitis or cholecystitis without obstruction Plan Patient has been given local instructions, and will follow-up p.r.n.. Coding Level of Care Code Global (39114) Diagnoses Recurrent biliary colic K80.50
== END 2022-12-20 13:16 | disposition home or self-care (01) ==
PROVIDERS: PCP Student in an Organized Health Care Education/Training Program; Visit Provider Surgery
DX: K80.50 Calculus of bile duct without cholangitis or cholecystitis without obstruction (principal)
CPT/HCPCS: 99024

== ENCOUNTER → 2022-12-20 12:45 | Outpatient (BNVA) | payer MEDICARE, MEDICAID, SELFPAY | PROVIDERS: PCP Student in an Organized Health Care Education/Training Program; Visit Provider Surgery ==

== ENCOUNTER 2022-12-27 08:50 | Outpatient (AMB) | payer MEDICARE, MEDICAID, SELFPAY ==
--- NOTE | 2022-12-27 09:02 | MHC.OFFVIS ---
Intake Vital Signs 12/27/22 09:09 Height 5 ft 8 in Weight 215 lb BMI 32.7 BP 122/68 Blood Pressure Location Lt brachial Position Sitting Respiration 16 Pulse 80 Pulse Source Pulse Oximeter Pulse Oximetry (%) 95 Oxygen Delivery Method Room Air Intake Visit Reasons: S/p Intracept L5-S1 12/17/22/confirmed Intake Note: patient comes in for s/p Intracept L5- S1 on 12/17/22. Allergies grass pollen Allergy (Mild, Verified 12/27/22 09:09) unknown tree and shrub pollen Allergy (Mild, Verified 12/27/22 09:09) itchy eyes, sneeze, runny nose HPI HPI Comments History of Present Illness Details Risais in my office today after performance of intercept procedure L4, L5-S1 which was performed on 12/17/2022. Patient reports good pain relief up to 75% on the right side and he feels worse on the left side. it is still too early to make conclusions about the patient's pain however attention was attracted to the fact that he has still signs of sacroiliitis prominent compared to what he had before. I offered him diagnostic sacroiliac joint injection on the left to finally figure out what part of his pain is involved with the left sacroiliac joint. In the past he received trial of pain pump with excellent pain relieve and if there will be no significant results of the procedures where performing today neuromodulation with pain pump will be introduced for the patient. Prior: under observation in my office with multiple pain generators.? He he had implantation of the SCS Nevro on 10/30/2021. He reports moderate improvement of he has pain when spinal cord stimulator is working. He reports good pain relieve while he is at rest. However when he starts to move especially bend forward he reports pain exacerbation. In the past he had twice radiofrequency ablation and it was working ?like a miracle ?according to the patient. But 3rd procedure resulted in no improvement. He had L2-L3 L4 dorsal ramus L5 therapeutic medial branch block with me on 07/27/2022. That injection resulted only in 24 hours of pain improvement. . His pain is mostly axial with radiation into the lateral flanks. He denies radiation of the pain into bilateral lower extremity. He was sent for MRI dictattion of which is as below. I decided to send this MRI disc the patient Dr. Lara who is an expert in vertebra genic pain. The verbal consent from the patient was obtained to send his medical records to Dr. Lara. Meanwhile I took the patient for bupivacaine pain pump trial. He reported 13 hours of 100% pain relieve on 2 mg of bupivacaine injected into the epidural space. After the pain returned he reports that it became more severe than it was before the trial. I believe it is just perception bias of the patient who had significant pain relief and then he had his pain returned. Currently I think he might be a good candidate for bupivacaine pump to alleviate lower back pain however he has multiple medical conditions which resulted in abdominal pain as well as and cervicalgia. I am little bit hesitant to proceed with the implantation of the pump. I will wait until Dr. Lara will report on vertebra genic changes in the patient's MRI. ? He is complaining on cervicalgia cervical pain, he is complaining now on pain with swallowing and odynophagia, continues to complain on pain in the lower back.? Also continues to complain on new pain in the mid back in the projection of the thoracic spine.? In the past he received radiofrequency ablation of medial branches L3 L4-5 bilateral by and after him by me.? He reported excellent pain relieve each time for 2 years.? However repetition of the procedure this time resulted in?no?pain relieve and actually some pain aggravation.? We discussed possibility of treatment of his axial pain with Nevro spinal cord stimulator.? He was approved by psychological evaluation and he had a trial of SCS Nevro by Dr. Schmitt.? He reported 75% pain improvement he wants to proceed with implantation of the Nevro spinal cord stimulator. In the past he had bilateral therapeutic C2-C3 C4 MBB he underwent on 09/02/2020 :? He reports 100% relief from the time he had the procedure performed until today.? This constitutes almost 6 months of the pain relief.? He states ?it was a miracle as he has full range of motion of the neck with almost complete alleviation of his pain.? He reports occasional stiffness in the morning but resolves throughout the day.? He is quite satisfied with the result of the procedure. He also went for radiofrequency ablation C4-C5 C6 bilateral medial branches.? He reports 75% of the pain relief mostly in the lower cervical areas.? He reports that upper cervical areas are not affected by the injection.? He reports that alignment of his neck with round objects to increase the cervical lordosis alleviates his pain temporarily.? He requests me to repeat this procedures well.? However unfortunately we have to wait with this procedure after implantation of Nevro spinal cord stimulator and 8 weeks more because history stratton of the steroids during the RFA actually might compromise healing of the position of the epidural leads in posterior epidural space. 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, lumbar region PVD (peripheral vascular disease) Mood disorder On beta ruddy at home Benign essential tremor CVA (cerebral vascular accident) IDDM (insulin dependent diabetes mellitus) Sleep apnea Chronic renal insufficiency Myocardial infarction CHF (congestive heart failure) CAD (coronary artery disease) AAA (abdominal aortic aneurysm) Arrhythmia On anticoagulant therapy Elevated cholesterol HTN (hypertension) History of ischemic cardiomyopathy 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 Surgical History History of laparoscopic cholecystectomy (12/08/22) History of surgery History of surgery History of PTCA Hx of parathyroidectomy Hx of CABG History of hernia repair Hx of gastric bypass Hx of endoscopy History of colonoscopy Family History Father Hx of congenital heart disease Mother Hx of heat stroke Social History Household Members: None Housing: Apartment Are you a primary residential care facility manager to a significant other at home: No Do you presently have visiting nurse or other home services: Yes ([employer] 2 hours per week) Alcohol intake: current Alcohol intake frequency: holidays/special occasions only Patient Tobacco Use Status: Former Tobacco user Quit Date: 1988 Tobacco use type: Cigarette Second Hand Smoke Exposure: No Review of Systems Const All systems reviewed & are unremarkable except as noted in HPI and below ENT Reports Normal hearing present Neuro Reports Normal hearing present and Denies Abnormal speech present Physical Exam Vital Signs: Last Vital Signs Pulse 80 12/27/22 09:09 Resp 16 12/27/22 09:09 BP 122/68 12/27/22 09:09 Pulse Ox 95 12/27/22 09:09 Oxygen Delivery Method Room Air 12/27/22 09:09 BMI result Body Mass Index 32.7 Const General: cooperative, no acute distress, alert and well groomed Orientation/consciousness: patient oriented x3 HEENT Head: Yes normocephalic and Yes atraumatic Ears: hearing grossly normal bilaterally Eyes General: appearance normal, both eyes and all related structures Eyelids: Yes eyelids normal Pupils: Equal, round and reactive pupils present EOM: EOMs intact bilaterally Neck Neck: Yes normal visual inspection and Yes no JVD Resp Effort & Inspection: normal respiratory effort, able to speak in complete sentences and no audible wheezes Cardio Jugular venous distension: no JVD Back/Spine/Pelvis Other: Tenderness of palpation paraspinal spinal region in the entire spine cervical thoracic and lumbar. SLR is negative with foot dorsiflexion. Flexing forward aggravates the pain. Flexing backwards does not change the pain. James test, Gaenslen test, pelvic compression test, pelvic destruction test, positive on the left for left sacroiliitis. Neuro General: patient oriented x3 and moves all extremities Cranial nerves: Yes Equal, round and reactive pupils present and Yes Normal hearing present Cognition (Neuro): normal cognition Speech: No Abnormal speech present Psych Appearance: grossly normal Mental Status: mental status grossly normal Speech and movement: Normal speech and movement present Affect: normal affect Attitude: cooperative Thought process: Normal thought process present Thought content: Normal thought content present Insight: Good insight present (Psych) Judgement: Good judgement present (Psych) Assessment & Plan Assessment & Plan (1) Spondylosis of lumbosacral spine without myelopathy: Code(s): M47.817 - Spondylosis without myelopathy or radiculopathy, lumbosacral region (2) Disc degeneration, lumbar: Code(s): M51.36 - Other intervertebral disc degeneration, lumbar region (3) Chronic pain: Code(s): G89.29 - Other chronic pain (4) Chronic pain syndrome: Code(s): G89.4 - Chronic pain syndrome (5) Vertebrogenic low back pain: Code(s): M54.51 - Vertebrogenic low back pain (6) Lumbago of lumbar region with sciatica: Code(s): M54.40 - Lumbago with sciatica, unspecified side (7) 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 About 1 year he reported moderate help with spinal cord stimulator while at rest however with movements he reported significant exacerbation of the pain. In the past he received twice RFA of the L3-L4 does ramus L5 medial branches with moderate success. However last time it to resulted in less than 2 months of pain relief. 07/27/2022 he received diagnostic and therapeutic medial branch block L2-L3 L4 does ramus L5. Unfortunately these injections resulted in no pain improvement longer than 24 hours. 2. ways of treatment of his pain at this moment are under consideration. He went for MRI of the lumbar spine and had some nonspecific vertebra genic changes which I requested to be evaluated by Dr. Lara, [facility] on vertebra genic pain from [place]. Alternatively we can set aside all attempts to treat his pain ethiology. He had a trial of bupivacaine pain pump which resulted in 13 hours of 100% pain elimination. Dr. Lara reported that he has supple levels of the Modic type 2 changes in his vertebral spine. Have went for L4-, L 5, S1 intercept procedure. He reports 75% pain improvement globally he reports right side is better and down to 4/10. Left-sided still hurts him and there are some complains and on physical examination features which suggest sacroiliitis and sacroiliac joint pain on the left. I will schedule him for diagnostic left sacroiliac joint injection. 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
[2022-12-27 09:09] VITALS: BP 122/68; PULSE 80; RESP 16; O2SAT 95; BMI 32.7
== END 2022-12-27 09:31 | disposition home or self-care (01) ==
PROVIDERS: PCP Student in an Organized Health Care Education/Training Program; Visit Provider Anesthesiology
DX: M47.817 Spondylosis without myelopathy or radiculopathy, lumbosacral region (principal); M51.36 Other intervertebral disc degeneration, lumbar region; G89.29 Other chronic pain; G89.4 Chronic pain syndrome; M54.51 Vertebrogenic low back pain; M54.40 Lumbago with sciatica, unspecified side; M49.86 Spondylopathy in diseases classified elsewhere, lumbar region; M47.812 Spondylosis without myelopathy or radiculopathy, cervical region; M46.1 Sacroiliitis, not elsewhere classified; M53.3 Sacrococcygeal disorders, not elsewhere classified
CPT/HCPCS: 99024

== ENCOUNTER → 2022-12-27 08:50 | Outpatient (BNVA) | payer MEDICARE, MEDICAID, SELFPAY | PROVIDERS: PCP Student in an Organized Health Care Education/Training Program; Visit Provider Anesthesiology | DX: G89.4 Chronic pain syndrome (principal); M47.817 Spondylosis without myelopathy or radiculopathy, lumbosacral region; M51.36 Other intervertebral disc degeneration, lumbar region; M54.40 Lumbago with sciatica, unspecified side; M49.86 Spondylopathy in diseases classified elsewhere, lumbar region; M47.812 Spondylosis without myelopathy or radiculopathy, cervical region; M46.1 Sacroiliitis, not elsewhere classified; M53.3 Sacrococcygeal disorders, not elsewhere classified; Z98.890 Other specified postprocedural states | CPT/HCPCS: 99212 ==

== ENCOUNTER 2022-12-31 11:07 | Day surgery (SDC) | payer MEDICARE, MEDICAID, SELFPAY ==
--- NOTE | ~2022-12-31 | FL_ITS ---
EXAMINATION: XR FLUOROSCOPY WITH IMAGES CLINICAL INFORMATION: Left SIJ. COMPARISON: None available. TECHNIQUE: Fluoroscopy Supervised By: Dr. Chino Gates. Fluoroscopy Time: 0.1 minutes. Cumulative Dose: 7.35 mGy. DAP: 1.39 Gycm2. Images: 1. FINDINGS: Image demonstrates needle placement and contrast injection over the left sacroiliac joint FL/FL guidance in OR IMPRESSION: Fluoroscopy guidance for pain management procedure
[2022-12-31 11:32] VITALS: BMI 31.9
[2022-12-31 11:48] VITALS: BP 145/70; PULSE 86; RESP 16; TEMP 36.6; O2SAT 97
--- NOTE | 2022-12-31 12:42 | MHC.SHP ---
Pre-Procedural Eval Section A Date of Service: 12/31/22 The patient is an INPATIENT: No Changes since office visit: Yes Patient answered all questions The History & Physical has been completed within 30 days and I have reviewed it.: No Section B Chief Complaint: Sacrococcygeal disorders,sacroiliitis, Details of Present Illness: as above Relevant Family History (Specify if Yes): No Relevant Social History: None Present Medications: None Medical History: No relevant PMH History of Previous Operations: Relevant previous surgery/procedure and date(s) (scs implant Nevro failed to help this patient's pain) Allergies: Allergies Allergy/AdvReac Type Severity Reaction Status Date / Time grass pollen Allergy Mild unknown Verified 12/31/22 11:49 tree and shrub pollen Allergy Mild itchy Verified 12/31/22 11:49 eyes, sneeze, runny nose Review of Systems Sugical H&P ROS: Negative: Constitution, Cardiovascular, Respiratory, Neurological, Psychiatric, Hem-Onc, Allergic/Immunologic, Gastrointestinal, Genitourinary, Musculoskeletal, Integumentary, Endocrine and Eyes/Ears/Nose/Throat Exam Surgical H&P Exam: Normal: HEENT, Normal: Heart, Normal: Lungs, Normal: Extremities, Normal: Abdomen, Normal: Skin and Normal: Neurological Plan Diagnosis/Plan: Unchanged I have reviewed the history and physical and performed a pertinent physical examination on my patient. No changes have occurred unless specified. Time Spent With Patient Time: Total time managing care of this patient today ____ minutes.
[2022-12-31 13:08] VITALS: BP 126/76; PULSE 71; RESP 16; TEMP 37.1; O2SAT 97
--- NOTE | 2022-12-31 13:08 | P.BOP_ITS ---
Brief Operative Note Date of Service: 12/31/22 Pre-op diagnosis: sacroiliitis, left sacroiliac joint pain Post-op diagnosis: same Procedure: diagnostic left sacroiliac joint injection. Surgeon: Chino Gates MD Anesthesia: local Was an Operational Communication Chief used for this Procedure?: No Estimated blood loss (mL): 0 Condition: stable Disposition: PACU
--- NOTE | 2022-12-31 13:09 | W.PM.OPN ---
Operative Note Operative Note Date of Service: 12/31/22 Narrative: Malik is very pleasant pleasant 70 years old gentleman who came to OR for the Left diagnostic sacroiliac joint injection. After obtaining informed consent patient was brought to the operating room, HE was positioned prone on operating table, Time-out was performed delineating correct site, side, the nature of the procedure, patient's allergy, preoperative antibiotic if needed. All operating room staff was participating in OR time-out procedure. Patient's Lower back was prepped with ChloraPrep and draped with sterile utility drapes. Sterilely draped C-arm was brought over operating field and square picture of left side of the pelvis was demonstrated on the screen. Tilting machine contralateral to the right the anterior portion of sacroiliac joint was superimposed over the posterior portion of sacroiliac joint. The skin was infiltrated 1 cm medial to the projection of the medial point of sacroiliac joint. The infiltration was lidocaine 1%. After that 22 gauge 3-1/2 inch needle was inserted through the skin wheal and advanced to were the image of sacroiliac joint. When needle entered the the joint injections of the contrast was performed delineating strict intra-articular spread of the contrast. After for that injection of the treatment medicine ropivacaine 0.5% 6 cc was performed into the joint. Upon completion of the injection needle was removed sterile Band-Aid was applied. Patient tolerated procedure well. He was transferred to the stretcher and moved to PACU without immediate complications.
== END 2022-12-31 13:17 | disposition home or self-care (01) ==
PROVIDERS: PCP Student in an Organized Health Care Education/Training Program; Visit Provider Anesthesiology
PROC: 3E0U33Z Introduction of Anti-inflammatory into Joints, Percutaneous Approach (ICD-10-PCS; CPT 27096; principal; 2022-12-31 13:20)
DX: M46.1 Sacroiliitis, not elsewhere classified (principal); M53.3 Sacrococcygeal disorders, not elsewhere classified; G89.4 Chronic pain syndrome; M47.817 Spondylosis without myelopathy or radiculopathy, lumbosacral region; M49.86 Spondylopathy in diseases classified elsewhere, lumbar region; M51.36 Other intervertebral disc degeneration, lumbar region; M54.51 Vertebrogenic low back pain; M47.812 Spondylosis without myelopathy or radiculopathy, cervical region; E11.22 Type 2 diabetes mellitus with diabetic chronic kidney disease; I13.0 Hypertensive heart and chronic kidney disease with heart failure and stage 1 through stage 4 chronic kidney disease, or unspecified chronic kidney disease; N18.9 Chronic kidney disease, unspecified; I50.9 Heart failure, unspecified; I25.10 Atherosclerotic heart disease of native coronary artery without angina pectoris; I25.2 Old myocardial infarction; Z98.61 Coronary angioplasty status; Z95.1 Presence of aortocoronary bypass graft; Z79.4 Long term (current) use of insulin; Z86.73 Personal history of transient ischemic attack (TIA), and cerebral infarction without residual deficits; Z79.01 Long term (current) use of anticoagulants; Z98.84 Bariatric surgery status; Z98.890 Other specified postprocedural states; Z87.891 Personal history of nicotine dependence
CPT/HCPCS: G0260; J2795; Q9967

== ENCOUNTER → 2022-12-31 11:07 | Outpatient (BNV) | payer MEDICARE, MEDICAID, SELFPAY | PROVIDERS: PCP Student in an Organized Health Care Education/Training Program; Visit Provider Anesthesiology | DX: M46.1 Sacroiliitis, not elsewhere classified (principal); M53.3 Sacrococcygeal disorders, not elsewhere classified | CPT/HCPCS: 27096 ==

== ENCOUNTER 2023-01-07 14:44 | Outpatient (AMB) | payer MEDICARE, MEDICAID, SELFPAY ==
[2023-01-07 14:50] VITALS: BP 130/76; PULSE 74; RESP 16; O2SAT 95; BMI 31.9
--- NOTE | 2023-01-07 14:50 | MHC.OFFVIS ---
Intake Vital Signs 01/07/23 14:50 Height 5 ft 8 in Weight 210 lb BMI 31.9 BP 130/76 Blood Pressure Location Rt brachial Position Sitting Respiration 16 Pulse 74 Pulse Source Pulse Oximeter Pulse Oximetry (%) 95 Oxygen Delivery Method Room Air Intake Visit Reasons: L DX SIJ INJ 12/31/22- Dr. Gates pt/confirmed Allergies grass pollen Allergy (Mild, Verified 01/07/23 14:49) unknown tree and shrub pollen Allergy (Mild, Verified 01/07/23 14:49) itchy eyes, sneeze, runny nose HPI HPI Comments History of Present Illness Details Malik is a very pleasant 72 year old male who presents to the office today for follow up 1 week s/p left SIJ diagnostic injection. He reports minimal relief ffor 2 hours after the procedure, then pain worsened throughout the day. By the evening it was excrutiating and he had the worst night ever . Patient states he had 100% pain relief for 13 hours after ITDDD trial, he would like to proceed with implant THAD. Prior: Malik?is in my office today after performance of intercept procedure L4, L5-S1 which was performed on 12/17/2022. Patient reports good pain relief up to 75% on the right side and he feels worse on the left side. it is still too early to make conclusions about the patient's pain however attention was attracted to the fact that he has still signs of sacroiliitis prominent compared to what he had before. I offered him diagnostic sacroiliac joint injection on the left to finally figure out what part of his pain is involved with the left sacroiliac joint. In the past he received trial of pain pump with excellent pain relieve and if there will be no significant results of the procedures where performing today neuromodulation with pain pump will be introduced for the patient. Prior: under observation in my office with multiple pain generators.? He he had implantation of the SCS Nevro on 10/30/2021. He reports moderate improvement of he has pain when spinal cord stimulator is working. He reports good pain relieve while he is at rest. However when he starts to move especially bend forward he reports pain exacerbation. In the past he had twice radiofrequency ablation and it was working ?like a miracle ?according to the patient. But 3rd procedure resulted in no improvement. He had L2-L3 L4 dorsal ramus L5 therapeutic medial branch block with me on 07/27/2022. That injection resulted only in 24 hours of pain improvement. . His pain is mostly axial with radiation into the lateral flanks. He denies radiation of the pain into bilateral lower extremity. He was sent for MRI dictattion of which is as below. I decided to send this MRI disc the patient Dr. Lara who is an expert in vertebra genic pain. The verbal consent from the patient was obtained to send his medical records to Dr. Lara. Meanwhile I took the patient for bupivacaine pain pump trial. He reported 13 hours of 100% pain relieve on 2 mg of bupivacaine injected into the epidural space. After the pain returned he reports that it became more severe than it was before the trial. I believe it is just perception bias of the patient who had significant pain relief and then he had his pain returned. Currently I think he might be a good candidate for bupivacaine pump to alleviate lower back pain however he has multiple medical conditions which resulted in abdominal pain as well as and cervicalgia. I am little bit hesitant to proceed with the implantation of the pump. I will wait until Dr. Lara will report on vertebra genic changes in the patient's MRI. ? He is complaining on cervicalgia cervical pain, he is complaining now on pain with swallowing and odynophagia, continues to complain on pain in the lower back.? Also continues to complain on new pain in the mid back in the projection of the thoracic spine.? In the past he received radiofrequency ablation of medial branches L3 L4-5 bilateral by and after him by me.? He reported excellent pain relieve each time for 2 years.? However repetition of the procedure this time resulted in?no?pain relieve and actually some pain aggravation.? We discussed possibility of treatment of his axial pain with Nevro spinal cord stimulator.? He was approved by psychological evaluation and he had a trial of SCS Nevro by Dr. Schmitt.? He reported 75% pain improvement he wants to proceed with implantation of the Nevro spinal cord stimulator. In the past he had bilateral therapeutic C2-C3 C4 MBB he underwent on 09/02/2020 :? He reports 100% relief from the time he had the procedure performed until today.? This constitutes almost 6 months of the pain relief.? He states ?it was a miracle as he has full range of motion of the neck with almost complete alleviation of his pain.? He reports occasional stiffness in the morning but resolves throughout the day.? He is quite satisfied with the result of the procedure. He also went for radiofrequency ablation C4-C5 C6 bilateral medial branches.? He reports 75% of the pain relief mostly in the lower cervical areas.? He reports that upper cervical areas are not affected by the injection.? He reports that alignment of his neck with round objects to increase the cervical lordosis alleviates his pain temporarily.? He requests me to repeat this procedures well.? However unfortunately we have to wait with this procedure after implantation of Nevro spinal cord stimulator and 8 weeks more because history stratton of the steroids during the RFA actually might compromise healing of the position of the epidural leads in posterior epidural space. 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, lumbar region PVD (peripheral vascular disease) Mood disorder On beta ruddy at home Benign essential tremor CVA (cerebral vascular accident) IDDM (insulin dependent diabetes mellitus) Sleep apnea Chronic renal insufficiency Myocardial infarction CHF (congestive heart failure) CAD (coronary artery disease) AAA (abdominal aortic aneurysm) Arrhythmia On anticoagulant therapy Elevated cholesterol HTN (hypertension) History of ischemic cardiomyopathy 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 Surgical History History of laparoscopic cholecystectomy (12/08/22) History of surgery History of surgery History of PTCA Hx of parathyroidectomy Hx of CABG History of hernia repair Hx of gastric bypass Hx of endoscopy History of colonoscopy Family History Father Hx of congenital heart disease Mother Hx of heat stroke Social History Household Members: None Housing: Apartment Are you a primary progressive care unit registered nurse to a significant other at home: No Do you presently have visiting nurse or other home services: Yes ([employer] 2 hours per week) Alcohol intake: current Alcohol intake frequency: holidays/special occasions only Patient Tobacco Use Status: Former Tobacco user Quit Date: 1988 Tobacco use type: Cigarette Second Hand Smoke Exposure: No Review of Systems Const All systems reviewed & are unremarkable except as noted in HPI and below Physical Exam Vital Signs: Last Vital Signs Pulse 74 01/07/23 14:50 Resp 16 01/07/23 14:50 BP 130/76 01/07/23 14:50 Pulse Ox 95 01/07/23 14:50 Oxygen Delivery Method Room Air 01/07/23 14:50 BMI result Body Mass Index 31.9 General: awake, alert, oriented. Answers questions appropriately. Fully engaged in examination. Skin: warm, dry, intact HEENT: Normocephalic. Hearing intact. Cardiac: External chest normal in appearance. Respiratory: No cough, audible wheezing or stridor. Abdomen: without gross distension. MS: No obvious swelling or deformities. Able to transition from sit to stand unassisted. Ambulates with bilaterally normal heel strike and toe off Neurological: Oriented to person, place, time and situation. Thought process intact. Psychiatric: Appropriate mood and affect. Good judgment and insight. 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 Patient reports hours of minimal pain relief, then pain returned and became worse than it was before the injection. By bedtime it was excruciating and worse than ever. He underwent ITDDD trial with bupivicaine prior to this procedure that resulted in 100% pain relief for 13 hours. He would like to proceed with ITDDD implant at this time. Patient has been cleared already by psych for implantable device. Booking order generated for ITDDD implant with Bupivicaine under general anesthesia. All questions and concerns were answered, patient agrees to plan. 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
== END 2023-01-07 15:14 | disposition home or self-care (01) ==
PROVIDERS: PCP Student in an Organized Health Care Education/Training Program; Visit Provider Registered Nurse Emergency
DX: M47.817 Spondylosis without myelopathy or radiculopathy, lumbosacral region (principal); M51.36 Other intervertebral disc degeneration, lumbar region; G89.29 Other chronic pain; G89.4 Chronic pain syndrome; M54.51 Vertebrogenic low back pain; M54.40 Lumbago with sciatica, unspecified side; M49.86 Spondylopathy in diseases classified elsewhere, lumbar region; M47.812 Spondylosis without myelopathy or radiculopathy, cervical region; M46.1 Sacroiliitis, not elsewhere classified; M53.3 Sacrococcygeal disorders, not elsewhere classified
CPT/HCPCS: 99213

== ENCOUNTER → 2023-01-07 14:44 | Outpatient (BNVA) | payer MEDICARE, MEDICAID, SELFPAY | PROVIDERS: PCP Student in an Organized Health Care Education/Training Program; Visit Provider Registered Nurse Emergency | DX: M47.817 Spondylosis without myelopathy or radiculopathy, lumbosacral region (principal); M51.36 Other intervertebral disc degeneration, lumbar region; M54.51 Vertebrogenic low back pain; M54.40 Lumbago with sciatica, unspecified side; M49.86 Spondylopathy in diseases classified elsewhere, lumbar region; M47.812 Spondylosis without myelopathy or radiculopathy, cervical region; M46.1 Sacroiliitis, not elsewhere classified; M53.3 Sacrococcygeal disorders, not elsewhere classified; G89.29 Other chronic pain | CPT/HCPCS: 99212 ==

== ENCOUNTER 2023-01-28 08:46 | Day surgery (SDC) | payer MEDICARE, MEDICAID, SELFPAY ==
[2023-01-26 14:34] VITALS: BMI 31.9
--- NOTE | 2023-01-27 13:12 | P.CONAN_ITS ---
Documented by User: Marquita Sanchez NP 01/27/23 13:14 HPI - Anesthesia Eval Consult details Narrative: 72yo M for Intrathecal Drug Delivery Implant s/p L5-S1 basivertebral nerve ablation Intracept RFA 11/2022 with GA-LMA 5 s/p lap sonia 12/08/22 with GA-ETT 7 CAD with hx CABG 1988, july 2018 c4 CHF. afib, AAA repair Cardiac optimized. Last office visit 10/2022 - well compensated and euvolemic from a heart failure standpoint Xarelto for afib ECHO 11/29/22 - DELMY / Central sleep apnea. Recent repeat sleep study. No results available Follows renal for CKD St 3. Stable at 06/2022 office visit stoke benign essential tremor PMFSH Active Problems Active Problems: All Active Problems (Updated 12/27/22 @ 14:37 by Chino Gates MD) Chronic left sacroiliac joint pain (Acute) Sacroiliitis (Acute) Recurrent biliary colic (Acute) Vertebrogenic low back pain (Acute) Chronic pain syndrome (Acute) Poorly controlled type 2 diabetes mellitus (Acute) Pancreatitis (Acute) NAFLD (nonalcoholic fatty liver disease) (Acute) DMII (diabetes mellitus, type 2) (Acute) Gallstones (Acute) S/P laparoscopic sleeve gastrectomy (Acute) Chronic pain (Acute) Neck pain (Acute) Dysphagia (Acute) Depression screen (Acute) Tinnitus (Acute) Dysgeusia (Acute) Anosmia (Acute) On anticoagulant therapy (Acute) Chronic renal insufficiency (Acute) AAA (abdominal aortic aneurysm) (Acute) Disc degeneration, lumbar (Acute) Lumbago of lumbar region with sciatica (Acute) 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, lumbar region (Acute) Benign essential tremor (Acute) Spondylosis of cervical joint without myelopathy (Acute) Spondylosis of lumbosacral spine without myelopathy (Acute) Past Medical History Medical History Rheumatic fever Cardiac arrest Disc degeneration, 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, lumbar region PVD (peripheral vascular disease) Mood disorder On beta ruddy at home Benign essential tremor CVA (cerebral vascular accident) IDDM (insulin dependent diabetes mellitus) Sleep apnea Chronic renal insufficiency Myocardial infarction CHF (congestive heart failure) CAD (coronary artery disease) AAA (abdominal aortic aneurysm) Arrhythmia On anticoagulant therapy Elevated cholesterol HTN (hypertension) History of ischemic cardiomyopathy 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 Family History Family History Father Hx of congenital heart disease Mother Hx of heat stroke Family history of problems with anesthesia: No Surgical History Surgical History History of laparoscopic cholecystectomy (12/08/22) History of surgery History of surgery History of PTCA Hx of parathyroidectomy Hx of CABG History of hernia repair Hx of gastric bypass Hx of endoscopy History of colonoscopy History of Problems with Anesthesia: No Social History Social History Household Members: None Housing: Apartment Are you a primary wound care nurse to a significant other at home: No Do you presently have visiting nurse or other home services: Yes ([employer] 2 hours per week) Alcohol intake: current Alcohol intake frequency: holidays/special occasions only Patient Tobacco Use Status: Former Tobacco user Quit Date: 1988 Tobacco use type: Cigarette Second Hand Smoke Exposure: No Use of substances other than those prescribed or required for medical reasons: No Are you DNR?: No Advance Directives: No Advance Directives Information Provided: Yes Meds Allergies Allergy/AdvReac Type Severity Reaction Status Date / Time grass pollen Allergy Mild unknown Verified 01/07/23 14:49 tree and shrub pollen Allergy Mild itchy Verified 01/07/23 14:49 eyes, sneeze, runny nose Home Medications Medication Instructions Recorded Confirmed Last Taken Type aspirin 81 mg tablet,delayed 81 mg PO DAILY 04/02/20 01/28/23 01/23/23 History release (Adult Aspirin Regimen) baclofen 20 mg tablet 20 mg PO TID 04/02/20 01/28/23 01/28/23 History bupropion HCl 300 mg 24 hr tablet, 300 mg PO QAM 04/02/20 01/28/23 01/28/23 History extended release calcium carbonate 600 mg calcium 600 mg PO BID 04/02/20 01/28/23 01/28/23 History (1,500 mg) tablet docusate sodium 100 mg capsule 200 mg PO BID 04/02/20 01/28/23 01/28/23 History fluticasone propionate 50 1 spray intranasal DAILY 04/02/20 01/28/23 01/28/23 History mcg/actuation nasal spray,suspension hydroxyzine HCl 25 mg tablet 25 mg PO BID PRN Anxiety 04/02/20 12/06/22 Unknown History lisinopril 5 mg tablet 5 mg PO .DAILY@NOON 04/02/20 12/06/22 10/29/21 History rivaroxaban 20 mg tablet (Xarelto) 20 mg PO DAILY@1700 04/02/20 01/28/23 01/23/23 History rosuvastatin 40 mg tablet 40 mg PO DAILY 04/02/20 01/28/23 01/28/23 History tamsulosin 0.4 mg capsule 0.4 mg PO .BID@NOON+BEDTIME 04/02/20 12/06/22 10/29/21 History torsemide 20 mg tablet 20 mg PO BEDTIME 04/02/20 12/06/22 10/29/21 History clonazepam 0.5 mg tablet 0.5 mg PO TID 05/26/20 01/28/23 01/28/23 History nitroglycerin 0.4 mg sublingual 0.4 mg sublingual ONCE PRN Chest 05/26/20 12/06/22 Unknown History tablet Pain pen needle, diabetic 32 gauge x #50 ea 05/26/20 10/08/22 Unknown History primidone 250 mg tablet 250 mg PO BID 10/31/20 01/28/23 01/28/23 History cetirizine 10 mg tablet 1 tab PO .DAILY@NOON 04/07/21 12/06/22 10/29/21 History mirtazapine 7.5 mg tablet 1 tab PO DAILY 04/07/21 01/28/23 01/28/23 History isosorbide mononitrate 60 mg 2 tab PO QAM 04/20/21 01/28/23 01/28/23 History tablet,extended release 24 hr melatonin 5 mg tablet 2 tab PO DAILY 04/20/21 12/06/22 Unknown History sertraline 50 mg tablet 1.5 tab PO DAILY 04/20/21 01/28/23 01/28/23 History pseudoephedrine HCl 120 mg 120 mg PO Q12H 09/07/21 01/28/23 01/28/23 History tablet,extended release sucralfate 1 gram tablet 1 g PO BID 09/07/21 01/28/23 01/28/23 History cholecalciferol (vitamin D3) 25 25 mcg PO QAM 08/10/22 01/28/23 01/28/23 History mcg (1,000 unit) tablet eplerenone 25 mg tablet 25 mg PO .DAILY@NOON 08/10/22 12/06/22 Unknown History famotidine 40 mg tablet 40 mg PO BEDTIME 08/10/22 12/06/22 Unknown History metoprolol succinate 50 mg 50 mg PO BEDTIME 08/10/22 12/06/22 Unknown History tablet,extended release 24 hr prazosin 5 mg capsule 5 mg PO DAILY 08/10/22 01/28/23 01/28/23 History insulin glargine 100 unit/mL (3 13 unit subcut BEDTIME 10/08/22 12/06/22 Unknown History mL) subcutaneous pen (Basaglar KwikPen U-100 Insulin) Exam Height,Weight and Vital Signs: Height 5 ft 8 in Weight 95.254 kg Pertinent Lab Results Pertinent Lab Results: Laboratory Tests 11/15/22 12/14/22 12:33 11:53 WBC 7.4 Hgb 14.5 Hct 47.3 Plt Count 223 Sodium 146 H Potassium 4.0 D Chloride 110 H Carbon Dioxide 24 BUN 13 Creatinine 0.96 Narrative Narrative: EKG 11/2022 Vent. Rate : 040 BPM Atrial Rate : 000 BPM P-R Int : 000 ms QRS Dur : 122 ms QT Int : 500 ms P-R-T Axes : 000 015 073 degrees QTc Int : 407 ms Atrial fibrillation with slow ventricular response Minimal voltage criteria for LVH, may be normal variant ( Emmett product ) Inferior infarct (cited on or before 04-NOV-2003) Abnormal ECG When compared with ECG of 20-SEP-2018 13:28, Vent. rate has decreased BY 28 BPM Nonspecific T wave abnormality no longer evident in Inferior leads Nonspecific T wave abnormality, improved in Anterolateral leads QT has shortened ECHO 2022 1. Moderate basal septal hypertrophy. LV size is grossly nml and global systolic function appears low-normal with a visually estimated LVEF 50-55%. Although suboptimally visualized despite use of echo enhancement agent, the basal to mid inferior and inferolateral segments are hypokinetic 2. RV is suboptimally visualized but appears normal in size and mildly reduced in function 3. LA is moderated dilated. Interatrial septum appears intact 4. Calcified aortic and mitral valves without significant stenosis or regurg 5. PASP 27mmHg 6. Inferior vena cava size is normal with normal inspiratory collapse. 7. No significant pericardial effusion 8. Ascending aorta and aortic root are normal Compared with 03/2020 - global LV systolic function declined from hyperdynamic to low-normal to mildly reduced. 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, lumbar region PVD (peripheral vascular disease) Mood disorder On beta ruddy at home Benign essential tremor CVA (cerebral vascular accident) IDDM (insulin dependent diabetes mellitus) Sleep apnea Chronic renal insufficiency Myocardial infarction CHF (congestive heart failure) CAD (coronary artery disease) AAA (abdominal aortic aneurysm) Arrhythmia On anticoagulant therapy Elevated cholesterol HTN (hypertension) History of ischemic cardiomyopathy 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 Family History Family History Father Hx of congenital heart disease Mother Hx of heat stroke Surgical History Surgical History History of laparoscopic cholecystectomy (12/08/22) History of surgery History of surgery History of PTCA Hx of parathyroidectomy Hx of CABG History of hernia repair Hx of gastric bypass Hx of endoscopy History of colonoscopy Social History Social History Household Members: None Housing: Apartment Are you a primary wound care nurse to a significant other at home: No Do you presently have visiting nurse or other home services: Yes ([employer] 2 hours per week) Alcohol intake: current Alcohol intake frequency: holidays/special occasions only Patient Tobacco Use Status: Former Tobacco user Quit Date: 1988 Tobacco use type: Cigarette Second Hand Smoke Exposure: No Use of substances other than those prescribed or required for medical reasons: No Are you DNR?: No Advance Directives: No Advance Directives Information Provided: Yes Meds Allergies Allergy/AdvReac Type Severity Reaction Status Date / Time grass pollen Allergy Mild unknown Verified 01/07/23 14:49 tree and shrub pollen Allergy Mild itchy Verified 01/07/23 14:49 eyes, sneeze, runny nose Home Medications Medication Instructions Recorded Confirmed Last Taken Type aspirin 81 mg tablet,delayed 81 mg PO DAILY 04/02/20 01/28/23 01/23/23 History release (Adult Aspirin Regimen) baclofen 20 mg tablet 20 mg PO TID 04/02/20 01/28/23 01/28/23 History bupropion HCl 300 mg 24 hr tablet, 300 mg PO QAM 04/02/20 01/28/23 01/28/23 History extended release calcium carbonate 600 mg calcium 600 mg PO BID 04/02/20 01/28/23 01/28/23 History (1,500 mg) tablet docusate sodium 100 mg capsule 200 mg PO BID 04/02/20 01/28/23 01/28/23 History fluticasone propionate 50 1 spray intranasal DAILY 04/02/20 01/28/23 01/28/23 History mcg/actuation nasal spray,suspension hydroxyzine HCl 25 mg tablet 25 mg PO BID PRN Anxiety 04/02/20 12/06/22 Unknown History lisinopril 5 mg tablet 5 mg PO .DAILY@NOON 04/02/20 12/06/22 10/29/21 History rivaroxaban 20 mg tablet (Xarelto) 20 mg PO DAILY@1700 04/02/20 01/28/23 01/23/23 History rosuvastatin 40 mg tablet 40 mg PO DAILY 04/02/20 01/28/23 01/28/23 History tamsulosin 0.4 mg capsule 0.4 mg PO .BID@NOON+BEDTIME 04/02/20 12/06/22 10/29/21 History torsemide 20 mg tablet 20 mg PO BEDTIME 04/02/20 12/06/22 10/29/21 History clonazepam 0.5 mg tablet 0.5 mg PO TID 05/26/20 01/28/23 01/28/23 History nitroglycerin 0.4 mg sublingual 0.4 mg sublingual ONCE PRN Chest 05/26/20 12/06/22 Unknown History tablet Pain pen needle, diabetic 32 gauge x #50 ea 05/26/20 10/08/22 Unknown History primidone 250 mg tablet 250 mg PO BID 10/31/20 01/28/23 01/28/23 History cetirizine 10 mg tablet 1 tab PO .DAILY@NOON 04/07/21 12/06/22 10/29/21 History mirtazapine 7.5 mg tablet 1 tab PO DAILY 04/07/21 01/28/23 01/28/23 History isosorbide mononitrate 60 mg 2 tab PO QAM 04/20/21 01/28/23 01/28/23 History tablet,extended release 24 hr melatonin 5 mg tablet 2 tab PO DAILY 04/20/21 12/06/22 Unknown History sertraline 50 mg tablet 1.5 tab PO DAILY 04/20/21 01/28/23 01/28/23 History pseudoephedrine HCl 120 mg 120 mg PO Q12H 09/07/21 01/28/23 01/28/23 History tablet,extended release sucralfate 1 gram tablet 1 g PO BID 09/07/21 01/28/23 01/28/23 History cholecalciferol (vitamin D3) 25 25 mcg PO QAM 08/10/22 01/28/23 01/28/23 History mcg (1,000 unit) tablet eplerenone 25 mg tablet 25 mg PO .DAILY@NOON 08/10/22 12/06/22 Unknown History famotidine 40 mg tablet 40 mg PO BEDTIME 08/10/22 12/06/22 Unknown History metoprolol succinate 50 mg 50 mg PO BEDTIME 08/10/22 12/06/22 Unknown History tablet,extended release 24 hr prazosin 5 mg capsule 5 mg PO DAILY 08/10/22 01/28/23 01/28/23 History insulin glargine 100 unit/mL (3 13 unit subcut BEDTIME 10/08/22 12/06/22 Unknown History mL) subcutaneous pen (Basaglar KwikPen U-100 Insulin) Exam Airway Mallampati Class: III TM Dist: >3cm Neck ROM: Limited Loose/Missing/Broken Teeth: No Heart: irreg irreg rhythm Lungs: CTA Assessment and Plan Assessment Anesthesia Assessment: Anesthesia Plan Discussed Final Anesthetic Review NPO: Yes ASA Class: IV Final Preanesthetic Review: Meds/Allgs Chart Reviewed, Consent Obtained/Reviewed and Anes Risks/Benef Reviewed Patient Risk: High Procedure Risk: Intermediate Anesthetic Plan Anesthetic Plan: GA Disposition: Standard PACU
[2023-01-28] VITALS (10 sets, daily range): BP systolic 114–137; BP diastolic 59–77; PULSE 68–89; RESP 11–20; TEMP 36.6–36.8; O2SAT 95–99
--- NOTE | ~2023-01-28 | FL_ITS ---
EXAMINATION: XR FLUOROSCOPY WITH IMAGES CLINICAL INFORMATION: ITDD implant. COMPARISON: None available. TECHNIQUE: Fluoroscopy Supervised By: Dr. Chino Gates. Fluoroscopy Time: 0.7 minutes. Cumulative Dose: 50.1 mGy. DAP: 9.35 Gycm2. Images: 3. FINDINGS: Initial image demonstrates needle projecting over the upper lumbar spinal canal. Later images demonstrate leads in the lower thoracic spinal canal. FL/FL guidance in OR IMPRESSION: Fluoroscopy guidance for pain management procedure
[2023-01-28 09:37] LABS: Glucose, Whole Blood 109 mg/dL (60-115)
--- NOTE | 2023-01-28 09:55 | MHC.SHP ---
Pre-Procedural Eval Section A Date of Service: 01/28/23 The patient is an INPATIENT: No Changes since office visit: Yes Patient answered all questions The History & Physical has been completed within 30 days and I have reviewed it.: No Section B Chief Complaint: Chronic pain syndrome Details of Present Illness: as above Relevant Family History (Specify if Yes): No Relevant Social History: None Present Medications: None Medical History: No relevant PMH History of Previous Operations: No relevant previous surgery Allergies: Allergies Allergy/AdvReac Type Severity Reaction Status Date / Time grass pollen Allergy Mild unknown Verified 01/07/23 14:49 tree and shrub pollen Allergy Mild itchy Verified 01/07/23 14:49 eyes, sneeze, runny nose Review of Systems Sugical H&P ROS: Negative: Constitution, Cardiovascular, Respiratory, Neurological, Psychiatric, Hem-Onc, Allergic/Immunologic, Gastrointestinal, Genitourinary, Musculoskeletal, Integumentary, Endocrine and Eyes/Ears/Nose/Throat Exam Surgical H&P Exam: Normal: HEENT, Normal: Heart, Normal: Lungs, Normal: Extremities, Normal: Abdomen, Normal: Skin and Normal: Neurological Plan Diagnosis/Plan: Unchanged I have reviewed the history and physical and performed a pertinent physical examination on my patient. No changes have occurred unless specified. Time Spent With Patient Time: Total time managing care of this patient today __10__ minutes.
[2023-01-28] MEDS: Lactated Ringers 1,000 ML 50 ML IVCONT (09:57)
--- NOTE | 2023-01-28 10:26 | W.PM.OPN ---
Operative Note Operative Note Date of Service: 01/28/23 Narrative: Implantation of intrathecal drug delivery system pain pump [employer]. After obtaining informed consent and explaining to the patient risks, benefits and alternatives to treat her pain, the patient was brought up to the operating room where he was positioned supine on the stretcher..? [place] [employer] monitors were applied and General anesthesia with endotracheal intubation was initiated. After that the patient was transferred left lateral decubital position on the operating table. The patient received antibiotic cefazolin 2 g 30 minutes before incision. Time-out was performed delineating correct site and side of the procedure, name and date of of the patient, risk of fire, need for antibiotic prophylaxis risk of DVT and need for DVT prophylaxis. ? After that the patient?s entire back? and right abdomen and right flank were prepped with Chloraprep and draped with full body drape including ioban film. Sterilely drape C-arm was brought over the OR field and square pictures of the L1, L2, L3 vertebrae were demonstrated on the screen. the entrance point? for the catheter was chosen as the L2-L3 interspace. In the strict midline fashion 8.5 cm vertical skin incision was made with #10 scalpel. The incision was widened with the Weitlaner retractor and deepened with electrocautery. Thorough hemostasis was obtained using electrocautery. The prevertebral fascia was freed from overlaying tissues. After that 100 mm introducer spinal 16 g needle was Inserted under x-ray guidance in the projection of the right L3 pedicle on AP view. The needle advanced to L2-L3 interspace under the x-ray guidance with intemittent A-P? and lateral pictures toward the spinal canal. When on the lateral view the needle entered the center of the spinal canal and on the AP view the tip of the needle was position in the strict midline location the stylet was removed and the clear flow of the CSF was obtain through the needle hub. Intrathecal Ascenda catheter was inserted through the needle and advanced under the x-ray guidance toward the T9 mid body vertebral body projection the stylet was removed from the catheter and the flow of clear CSF fluid was observed coming from the catheter.? Pursestring suture -was - applied surrounding? the a needle and the were tied.? After that the needle was withdrawn with care taken to keep the catheter in place.? Anchoring device was dislodged on the catheter and advanced until it met prevertebral fascia.? It was engaged on the body of the catheter.? Two anchoring Tycron sutures were used to suture left wing of the anchor to prevertebral fascia and 1 anchoring suture was used to stitch in the right wing of anchoring device to prevertebral fascia. ?After that the thorough irrigation of the wound was performed and wound was packed with vancomycin soaked 4 x 4. Attention then was concentrated on the patient's right upper abdomen.Sterilely draped C-arm was brought over the operative field again and position of the patient's Right rib crest was demonstrated on the screen.? 3 cm below the projection of the lowest point of the rib o the skin of the local anesthetic lidocaine plus Ropivacaine 1-1 was injected in the linear oblique fashion.? After that 9.5 cm incision was performed in patient's? right upper abdomen alongside the injected line. ? Thorough hemostasis was obtained using cautery device.? After that the wound was widened and made 3,5 cm deep .? The wound was extended medially and laterally as well as caudally and cranially to form the space to accommodate the body of the pump.? Thorough hemostasis was performed.? The wound was irrigated with vancomycin containing normal saline and then tunneling device was used to connect both wounds and dislodged the intrathecal catheter into the side wound.? The catheter was trimmed appropriately after that and sutureless connection device was mounted on the catheter.? After that sutureless connection device was connected to the pump.? Aspiration of the side port of the pump revealed clear straw-colored flow of CSF.? Two anchoring 0-0 Tycron sutures were applied in most superior lateral most superior medial a corners of the wound.? After that the sutures were connected to the brackets on the body of the pump, intrathecal catheter was gathered behind the body of the pump and pump was dislodged into the wound.? After that the anchoring sutures were tied.? After that noncoring needle was used again to reach side port of the pump in clear flow of CSF 0.5 mL was demonstrated in the syringe connected to the noncoring needle. ? Thorough irrigation was performed again in both wounds.? Thorough hemostasis was verified.? 0 polisorb sutures were used to close both wounds, 2-0 suture of the same nature were used to approximate the skin.? [place] were applied to the skin line and Bacitracin ointment was applied to the staple lines.? Sterile dressing with sterile 4x4s was performed, a fixed to the skin with Medipore tape, abdominal binder was applied.? Upon completion of the procedure patient was awaken , extubated and taken outside of the operating room to recovery room where he recovered uneventfully
[2023-01-28 11:00] LABS: MRSA Nasal PCR POSITIVE (Negative); SA Nasal PCR POSITIVE (Negative)
--- NOTE | 2023-01-28 14:10 | PM.OP ---
Brief Operative Note Date of Service: 01/28/23 Pre-op diagnosis: chronic pain syndrome Post-op diagnosis: same Procedure: implantation of intrathecal pain pump [employer] Implants: SynchroMed 2 intrathecal pain pump and intrathecal catheter Ascenda. Surgeon: Chino Gates MD Anesthesia: GETA Was an [employer] used for this Procedure?: No Estimated blood loss (mL): 28 Pathology: none sent Condition: stable Disposition: PACU
[2023-01-28 15:04] LABS: Glucose, Whole Blood 124 mg/dL (60-115)
[2023-01-28] MEDS: oxyCODONE HCl Immed Release 5 MG TABLET 10 MG PO (15:12)
== END 2023-01-28 16:38 | disposition home or self-care (01) ==
PROVIDERS: Registered Nurse Emergency; PCP Student in an Organized Health Care Education/Training Program; Visit Provider Anesthesiology
PROC: (CPT 62362; principal; 2023-01-28 10:20)
DX: M47.817 Spondylosis without myelopathy or radiculopathy, lumbosacral region (principal); G89.4 Chronic pain syndrome; M51.36 Other intervertebral disc degeneration, lumbar region; M49.86 Spondylopathy in diseases classified elsewhere, lumbar region; M54.40 Lumbago with sciatica, unspecified side; M46.1 Sacroiliitis, not elsewhere classified; M53.3 Sacrococcygeal disorders, not elsewhere classified; M47.812 Spondylosis without myelopathy or radiculopathy, cervical region; I25.10 Atherosclerotic heart disease of native coronary artery without angina pectoris; Z95.1 Presence of aortocoronary bypass graft; E11.22 Type 2 diabetes mellitus with diabetic chronic kidney disease; I13.0 Hypertensive heart and chronic kidney disease with heart failure and stage 1 through stage 4 chronic kidney disease, or unspecified chronic kidney disease; N18.9 Chronic kidney disease, unspecified; I50.9 Heart failure, unspecified; Z86.73 Personal history of transient ischemic attack (TIA), and cerebral infarction without residual deficits; Z79.01 Long term (current) use of anticoagulants; Z79.4 Long term (current) use of insulin; Z79.82 Long term (current) use of aspirin; Z79.899 Other long term (current) drug therapy; Z79.51 Long term (current) use of inhaled steroids; Z98.890 Other specified postprocedural states; Z98.84 Bariatric surgery status; Z87.891 Personal history of nicotine dependence
CPT/HCPCS: 62362; 82947; 87640; 87641; C1755; C1772; J0665; J0690; J1100; J2371; J2405; J2704; J2795; J3010; J3370

== ENCOUNTER → 2023-01-28 08:46 | Outpatient (BNV) | payer MEDICARE, MEDICAID, SELFPAY | PROVIDERS: PCP Student in an Organized Health Care Education/Training Program; Visit Provider Anesthesiology | DX: G89.4 Chronic pain syndrome (principal) | CPT/HCPCS: 62362 ==

== ENCOUNTER 2023-02-01 12:53 | Emergency (ER) | payer MEDICARE, MEDICAID, SELFPAY ==
[2023-02-01] VITALS (8 sets, daily range): BP systolic 123–138; BP diastolic 75–88; PULSE 16–74; RESP 16; TEMP 36.6–37; O2SAT 92–96; BMI 33.6
--- NOTE | ~2023-02-01 | CT_ITS ---
EXAMINATION: CT HEAD WITHOUT CONTRAST CLINICAL INFORMATION: Headache. Recent intrathecal pump placement. COMPARISON: 09/20/2018. TECHNIQUE: Contiguous axial imaging was performed from the skull base to vertex without intravenous administration of contrast. This CT examination was performed using dose optimization techniques as appropriate, variously including the following: *Automated exposure control *Adjustment of mA and/or kV according to patient size (this includes techniques or standardized protocols for targeted exams where dose is matched to indication/reason for exam; i.e. extremities or head) *Use of iterative reconstruction technique DLP: 703 mGy-cm FINDINGS: The lateral, third and fourth ventricles are normally outlined. The cortical sulci and basal cisterns are normally outlined as well. There is mild bilateral periventricular and central white matter diminished attenuation similar to previous. There is left parietal encephalomalacia also similar to previous. There is no acute territorial defect, hemorrhage or midline shift. The extra-axial spaces are unremarkable. Calvarium: Intact. Maxilla facial sinuses and mastoids: There is ethmoid sinus mucosal thickening/minimal opacities. The remaining maxillofacial sinuses and mastoids are clear. CT/CT head/brain wo IV con IMPRESSION: Mild bilateral periventricular and central white matter diminished attenuation is nonspecific but likely to represent microvascular disease. No acute intracranial abnormality. No significant interval change.
--- NOTE | 2023-02-01 13:10 | PC.NURSE ---
ems handover done by ramesh wood. 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
--- NOTE | 2023-02-01 13:51 | ED.GENADULT ---
HPI - General Adult General Chief complaint: General Medical Stated complaint: PEPPER/NECK PAIN S/P CATH PLACED LOWER BACK FOR PAIN Time Seen by Provider: 02/01/23 13:50 Source: patient and other (Expect note from Dr. Gates) Mode of arrival: ambulatory Limitations: no limitations History of Present Illness HPI narrative: 72-year-old male history of rheumatic fever, cardiac arrest, degenerative disc disease, peripheral vascular disease, mood disorder, stroke, diabetes, chronic renal insufficiency, congestive heart failure, triple a repair, who had an implantable intrathecal drug delivery device implanted on 01/28/[address] Gates who presents emergency department for evaluation of neck pain and headache patient states that the headache started Tuesday night after he had the device implanted he states that he was placed in an abdominal binder in order to keep the catheter from dislodging and he slept in his recliner. He states he slept well but when he woke up on Tuesday morning he had severe headache and neck pain. He states the pain it is a strong pain located the temporal regions of his head, he states that his neck is stiff in with any movement of his neck he has severe pain. He states that the pain is worse with standing and relieved by lying flat. He states he has had difficulty moving however secondary to his headache and his neck pain. He denied fever, chills, rhinorrhea, sore throat, cough, chest pain, shortness of breath. He did have nausea with no vomiting. He denied change in his vision, photophobia, numbness or weakness in his extremities, loss of bowel or bladder control Related Data Home Medications Medication Instructions Recorded Confirmed aspirin 81 mg tablet,delayed 81 mg PO DAILY 04/02/20 01/28/23 release (Adult Aspirin Regimen) baclofen 20 mg tablet 20 mg PO TID 04/02/20 01/28/23 bupropion HCl 300 mg 24 hr tablet, 300 mg PO QAM 04/02/20 01/28/23 extended release calcium carbonate 600 mg calcium 600 mg PO BID 04/02/20 01/28/23 (1,500 mg) tablet docusate sodium 100 mg capsule 200 mg PO BID 04/02/20 01/28/23 fluticasone propionate 50 1 spray intranasal DAILY 04/02/20 01/28/23 mcg/actuation nasal spray,suspension hydroxyzine HCl 25 mg tablet 25 mg PO BID PRN Anxiety 02/10/21 10/16/23 lisinopril 5 mg tablet 5 mg PO .DAILY@NOON 04/02/20 12/06/22 rivaroxaban 20 mg tablet (Xarelto) 20 mg PO DAILY@1700 04/02/20 01/28/23 rosuvastatin 40 mg tablet 40 mg PO DAILY 04/02/20 01/28/23 tamsulosin 0.4 mg capsule 0.4 mg PO .BID@NOON+BEDTIME 04/02/20 12/06/22 torsemide 20 mg tablet 20 mg PO BEDTIME 04/02/20 12/06/22 clonazepam 0.5 mg tablet 0.5 mg PO TID 05/26/20 01/28/23 nitroglycerin 0.4 mg sublingual 0.4 mg sublingual ONCE PRN Chest 05/26/20 12/06/22 tablet Pain pen needle, diabetic 32 gauge x #50 ea 05/26/20 10/08/22 primidone 250 mg tablet 250 mg PO BID 10/31/20 01/28/23 cetirizine 10 mg tablet 1 tab PO .DAILY@NOON 04/07/21 12/06/22 mirtazapine 7.5 mg tablet 1 tab PO DAILY 04/07/21 01/28/23 isosorbide mononitrate 60 mg 2 tab PO QAM 04/20/21 01/28/23 tablet,extended release 24 hr melatonin 5 mg tablet 2 tab PO DAILY 04/20/21 12/06/22 sertraline 50 mg tablet 1.5 tab PO DAILY 04/20/21 01/28/23 pseudoephedrine HCl 120 mg 120 mg PO Q12H 09/07/21 01/28/23 tablet,extended release sucralfate 1 gram tablet 1 g PO BID 09/07/21 01/28/23 cholecalciferol (vitamin D3) 25 25 mcg PO QAM 08/10/22 01/28/23 mcg (1,000 unit) tablet eplerenone 25 mg tablet 25 mg PO .DAILY@NOON 08/10/22 12/06/22 famotidine 40 mg tablet 40 mg PO BEDTIME 08/10/22 12/06/22 metoprolol succinate 50 mg 50 mg PO BEDTIME 08/10/22 12/06/22 tablet,extended release 24 hr prazosin 5 mg capsule 5 mg PO DAILY 08/10/22 01/28/23 insulin glargine 100 unit/mL (3 13 unit subcut BEDTIME 10/08/22 12/06/22 mL) subcutaneous pen (Basaglar KwikPen U-100 Insulin) Previous Rx's Medication Instructions Recorded saliva substitute comb no.10 1 packet mucous membrane QID PRN 04/19/22 (Neutrasal mucosal powder in dry mouth #30 ea packet) esomeprazole magnesium 40 mg 40 mg PO BID #60 caps 10/11/22 capsule,delayed release ibuprofen 800 mg tablet 800 mg PO Q8H PRN pain #30 tabs 12/08/22 cephalexin 500 mg capsule 1,000 mg (2 x 500 mg) PO Q8H 14 01/28/23 days #84 caps oxycodone 5 mg tablet 5 mg PO Q4H PRN postoperative pain 01/28/23 6 days #36 tabs diphenhydramine HCl 25 mg capsule 50 mg (2 x 25 mg) PO Q6H PRN 02/01/23 headache, nausea, vomiting 3 days #30 caps metoclopramide HCl 10 mg tablet 10 mg PO Q6H PRN nausea and 02/01/23 (Reglan) vomiting #14 tabs morphine 15 mg immediate release 15 mg PO Q6H PRN headache #10 tabs 02/01/23 tablet Allergies Allergy/AdvReac Type Severity Reaction Status Date / Time grass pollen Allergy Mild unknown Verified 01/07/23 14:49 tree and shrub pollen Allergy Mild itchy Verified 01/07/23 14:49 eyes, sneeze, runny nose Review of Systems Review of Systems: Yes all other systems are reviewed and are negative [facility] Past Medical History Medical History Rheumatic fever Cardiac arrest Disc degeneration, 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, lumbar region PVD (peripheral vascular disease) Mood disorder On beta ruddy at home Benign essential tremor CVA (cerebral vascular accident) IDDM (insulin dependent diabetes mellitus) Sleep apnea Chronic renal insufficiency Myocardial infarction CHF (congestive heart failure) CAD (coronary artery disease) AAA (abdominal aortic aneurysm) Arrhythmia On anticoagulant therapy Elevated cholesterol HTN (hypertension) History of ischemic cardiomyopathy 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 Surgical History History of laparoscopic cholecystectomy (12/08/22) History of surgery History of surgery History of PTCA Hx of parathyroidectomy Hx of CABG History of hernia repair Hx of gastric bypass Hx of endoscopy History of colonoscopy Family History Family History Father Hx of congenital heart disease Mother Hx of heat stroke Social History Social History Household Members: None Housing: Apartment Are you a primary animal care specialist to a significant other at home: No Do you presently have visiting nurse or other home services: Yes ([employer] 2 hours per week) Alcohol intake: current Alcohol intake frequency: holidays/special occasions only Patient Tobacco Use Status: Former Tobacco user Quit Date: 1988 Tobacco use type: Cigarette Second Hand Smoke Exposure: No Advance Directives: No Advance Directives Information Provided: No Physical Exam ED Vital Signs: Vital Signs - 24 hr 02/01/23 13:32 02/01/23 13:45 02/01/23 15:07 Temperature 98 F 98.6 F Pulse Rate 16 L 71 Respiratory Rate 16 16 16 Blood Pressure 138/78 133/78 Pulse Oximetry 92 95 Oxygen Delivery Method Room Air Room Air 02/01/23 15:11 Temperature Pulse Rate 59 Respiratory Rate 16 Blood Pressure 123/75 Pulse Oximetry 94 Oxygen Delivery Method Room Air BMI result Body Mass Index 33.6 Vital signs were normal. Exam General: Awake, alert, appears to be in mild distress secondary to his head and neck stiffness, Head: Normocephalic, atraumatic EENT: PERRL, Lids normal, sclera normal, conjunctiva normal, nose normal , ears normal, throat without erythema or exudates Neck: Patient has no tenderness palpation over her cervical vertebrae or trapezius muscles however with minimal movement of his neck both passively and actively he complains of pain in and worsening of his headache Lung: breath sounds symmetric, no wheezing, rales or rhonchi Chest: symmetric movement, nontender Heart: regular rate and rhythm, normal S1, S2 no murmurs or rubs Abdomen: The patient is an abdominal binder, I did not remove it completely since I did not want to dislodged the posterior chest better, the patient's anterior abdomen appears to be normal in color with no erythema or increased warmth, he does have tenderness palpation over the right lower quadrant area where he has incision, has normoactive bowel sounds, no rebound Back: no vertebral tenderness, no CVAT Extremities: no deformities, moves all extremities symmetrically Neuro: Awake, alert, oriented, normal speech, cranial nerves intact, moves all extremities symmetrically Psych: Pleasant, cooperative Medications Administered Discontinued Medications Generic Name Dose Route Start Last Admin Trade Name Sharita PRN Reason Stop Dose Admin Diphenhydramine HCl 50 mg 02/01/23 14:33 02/01/23 15:05 Diphenhydramine Hcl 50 Mg/Ml Vial IVPUSH 02/01/23 14:34 50 mg ONCE STA Administration Sodium Chloride 1,000 mls @ 999 mls/hr 02/01/23 14:33 02/01/23 15:07 Ns IV 02/01/23 15:33 999 mls/hr .Q1H1M STA Administration Metoclopramide HCl 10 mg 02/01/23 14:33 02/01/23 15:05 Metoclopramide Hcl 10 Mg/2 Ml Vial IVPUSH 02/01/23 14:34 10 mg ONCE STA Administration Morphine Sulfate 4 mg 02/01/23 14:33 02/01/23 15:07 Morphine Sulfate 4 Mg/Ml Cartridge IVPUSH 02/01/23 14:34 4 mg ONCE STA Administration Protocol Medical Decision Making Medical Decision Making [facility] Narrative: 72-year-old male who presents emergency department for evaluation of headache and neck after having intrathecal pain medication delivery device implanted on 01/28/2023 (4 days prior to evaluation). Patient states the headache started shortly after surgery, headache got worse the next day and has been constant since onset. The headache is located in the temporal regions of his head any also has neck stiffness and movement of his neck makes his headache worse. Patient states that the headache was worse with standing and relieved with lying down. Exam did reveal pain with movement of his neck neck and right lower quadrant abdominal pain in the area of his incision otherwise unremarkable Following evaluation was ordered: CBC, BMP, PT/INR, liver panel, magnesium, CT scan of the head without IV contrast Patient was treated with the following medications: Reglan 10 mg IV, Benadryl 50 mg IV and morphine 4 mg IV Differential Diagnosis Differential Diagnoses: The differential diagnosis associated with the presentation includes Differential diagnosis includes was not limited to spinal headache, intracranial bleed, infectious process Admission/Observation Consideration of admission/observation: Escalation of care including admission/observation considered Lab Data MDM Lab Attestation statement: I reviewed the patient's lab results. My interpretation patient's laboratory evaluation is as follows CBC and CMP were unremarkable pain. INR was normal pain 02/01/23 13:52 02/01/23 13:52 Labs: Lab Results 02/01/23 Range/Units 13:52 WBC 6.5 (4.8-10.8) X10*3/uL RBC 5.00 (4.60-5.80) X10*6/uL Hgb 12.8 L (14.0-18.0) g/dl Hct 40.7 L (42.0-52.0) % MCV 81.4 (80.0-98.0) fL MCH 25.6 L (27.0-33.0) pg MCHC 31.4 (31.0-36.0) g/dl RDW 17.2 H (11.0-16.0) % Plt Count 179 (160-400) X10*3/uL MPV 10.7 (9.4-12.4) fL Immature Gran % (Auto) 0.3 (0.0-0.4) % Neut % (Auto) 59.0 (45-73) % Lymph % (Auto) 27.4 (20-40) % Hand % (Auto) 9.2 (2-11) % Eos % (Auto) 3.5 (0-4) % Baso % (Auto) 0.6 (0-2) % Lymph # (Auto) 1.8 (1.2-4.9) X10*3/uL Hand # (Auto) 0.6 (0.1-1.2) X10*3/uL Eos # (Auto) 0.2 (0.0-0.4) X10*3/uL Baso # (Auto) 0.0 (0.0-0.2) X10*3/uL Abs Immat Gran (auto) 0.02 (0.00-0.03) X10*3/uL Absolute Neuts (auto) 3.9 (2.0-8.3) x10*3/uL Absolute Nucleated RBC 0.000 (0.0-0.012) X10*3/uL Nucleated RBC % (auto) 0.0 (0.0-0.2) /100WBC PT 12.6 (11.1-13.3) SEC INR 1.0 (0.9-1.1) Sodium 143 (135-145) mmol/L Potassium 4.0 (3.3-5.1) mmol/L Chloride 104 (96-108) mmol/L Carbon Dioxide 30 H (22-29) mmol/L Anion Gap 13 (12-20) BUN 13 (9-16) mg/dL Creatinine 1.01 (0.5-1.4) mg/dL Estim Creat Clear Calc 78.1 Estimated GFR > 60 Random Glucose 111 (60-115) mg/dL Calcium 9.0 (8.4-10.2) mg/dL Magnesium 2.0 (1.6-2.6) mg/dL Total Bilirubin 0.4 (0.0-1.0) mg/dL Direct Bilirubin 0.2 (0.0-0.5) mg/dL AST 24 (5-37) U/L ALT 15 (0-40) U/L Alkaline Phosphatase 124 H (39-117) U/L Total Protein 6.5 (6.5-8.0) g/dL Albumin 3.6 (3.5-5.0) g/dL Radiology Impression Discussion of test interpretation with radiology: I have reviewed the radiologist's reading. Radiologist Impression: CT head/brain wo IV con IMPRESSION: Mild bilateral periventricular and central white matter diminished attenuation is nonspecific but likely to represent microvascular disease. No acute intracranial abnormality. No significant interval change. Dictated By: Markus Mancia Discharge Plan Discharge Clinical Impression: Acute headache Qualifiers: Headache type: unspecified Intractability: not intractable Qualified Code(s): R51.9 - Headache, unspecified Patient Disposition: Home, Self-Care Instructions: Acute Headache (ED) Additional Instructions: Your blood work was unremarkable. The CT scan of your brain did not reveal any clear cause for your headache and is unchanged from your previous CT scans. At this time, I believe that your headache may be caused by a spinal procedure but sometimes you can get migraine-like headache related to anesthesia I want you to take the following 3 medications together every 6 hours as needed for headache, nausea or vomiting. Reglan (metoclopramide) in 10 mg, 1 pill Benadryl 25 mg, 2 pills Morphine 15 mg After you take these medications, lie down in a dark quiet room and try to fall asleep. These medications will make you sleepy, do not drive or work after taking these medications. Morphine is a narcotic medication and can be addicting. If you are concerned about addiction you can ask the pharmacist for less pills or do not get this prescription filled. Stop taking oxycodone while your taking morphine Follow-up with Dr. Gates as scheduled tomorrow. Please return to the emergency department if your symptoms get worse or if you develop any symptoms that are concerning to you. Here are 's recommendations with some modifications from me. Bed rest with head below the level of the chest (this means you have to lie flat on your back) 3 liters of Coca Cola or Pepsi cola a day. ( Since you cannot drink caffeine, drink 3 L of fluid a day to stay extra hydrate since this helps with spinal headaches. The fluid should contain electrolytes and salt and not just water.) Take a stool softener to prevent straining down with bowel movement. Eat chocolate and coffee at [employer] (again skip the caffeine) If your headache is not better in couple of days Dr. Gates will need need to plan an epidural blood patch. Therefore stop your blood thinners for 4 days. Prescriptions: New diphenhydramine HCl 25 mg capsule 50 mg PO Q6H PRN (Reason: headache, nausea, vomiting) 3 Days Qty: 30 0RF morphine 15 mg tablet 15 mg PO Q6H PRN (Reason: headache) Qty: 10 0RF Rx Instructions: The patient may ask for partial fill; Partial Fill upon patient request. metoclopramide HCl [Reglan] 10 mg tablet 10 mg PO Q6H PRN (Reason: nausea and vomiting) Qty: 14 0RF No Action cetirizine 10 mg tablet 1 tab PO .DAILY@NOON mirtazapine 7.5 mg tablet 1 tab PO DAILY isosorbide mononitrate 60 mg tablet extended release 24 hr 2 tab PO QAM sertraline 50 mg tablet 1.5 tab PO DAILY melatonin 5 mg tablet 2 tab PO DAILY ibuprofen 800 mg tablet 800 mg PO Q8H PRN (Reason: pain) Qty: 30 0RF cephalexin 500 mg capsule 1,000 mg PO Q8H 14 Days Qty: 84 1RF Rx Instructions: take OTC probiotics 25 billion cultures or more in between the doses of the antibiotics oxycodone 5 mg tablet 5 mg PO Q4H PRN (Reason: postoperative pain) 6 Days Qty: 36 0RF Rx Instructions: Partial Fill upon patient request. aspirin [Adult Aspirin Regimen] 81 mg tablet,delayed release (DR/EC) 81 mg PO DAILY baclofen 20 mg tablet 20 mg PO TID bupropion HCl 300 mg tablet extended release 24 hr 300 mg PO QAM calcium carbonate 600 mg calcium (1,500 mg) tablet 600 mg PO BID docusate sodium 100 mg capsule 200 mg PO BID fluticasone propionate 50 mcg/actuation spray,suspension 1 spray intranasal DAILY Rx Instructions: administer into each nostril hydroxyzine HCl 25 mg tablet 25 mg PO BID PRN (Reason: Anxiety) lisinopril 5 mg tablet 5 mg PO .DAILY@NOON Xarelto 20 mg tablet 20 mg PO DAILY@1700 Rx Instructions: must administer with evening meal rosuvastatin 40 mg tablet 40 mg PO DAILY tamsulosin 0.4 mg capsule 0.4 mg PO .BID@NOON+BEDTIME torsemide 20 mg tablet 20 mg PO BEDTIME nitroglycerin 0.4 mg tablet, sublingual 0.4 mg sublingual ONCE PRN (Reason: Chest Pain) (DME) pen needle, diabetic 32 gauge x 5/32 needle See Rx Instructions .ROUTE .MEDSUPPLY Qty: 50 Rx Instructions: As directed clonazepam 0.5 mg tablet 0.5 mg PO TID primidone 250 mg tablet 250 mg PO BID Patient Comments: takes for tremors Neutrasal Powder In Packet 1 packet mucous membrane QID PRN (Reason: dry mouth) Qty: 30 1RF Rx Instructions: mix in 30 mL water; swish 15 mL for 1 min ; spit out/do not swallow; repeat with remaining 15 mL sucralfate 1 gram tablet 1 g PO BID pseudoephedrine HCl 120 mg tablet extended release 120 mg PO Q12H esomeprazole magnesium 40 mg capsule,delayed release(DR/EC) 40 mg PO BID Qty: 60 4RF famotidine 40 mg tablet 40 mg PO BEDTIME eplerenone 25 mg tablet 25 mg PO .DAILY@NOON metoprolol succinate 50 mg tablet extended release 24 hr 50 mg PO BEDTIME prazosin 5 mg capsule 5 mg PO DAILY cholecalciferol (vitamin D3) 25 mcg (1,000 unit) tablet 25 mcg PO QAM insulin glargine [Basaglar KwikPen U-100 Insulin] 100 unit/mL (3 mL) insulin pen 13 unit subcut BEDTIME
[2023-02-01 13:57] LABS: MANUAL DIFF FLAG NO
[2023-02-01 14:06] LABS: Basophils Percent Auto 0.6 % (0-2); Eosinophils Absolute Auto 0.2 X10*3/uL (0.0-0.4); Eosinophils Percent Auto 3.5 % (0-4); Hematocrit 40.7 % (42.0-52.0); Hemoglobin 12.8 g/dl (14.0-18.0); Imm Gran Abs Auto 0.02 X10*3/uL (0.00-0.03); Imm Gran Pct Auto 0.3 % (0.0-0.4); Lymphocytes Absolute Auto 1.8 X10*3/uL (1.2-4.9); Lymphocytes Percent Auto 27.4 % (20-40); Mean Corpuscular HGB Conc 31.4 g/dl (31.0-36.0); Mean Corpuscular Hemoglobin 25.6 pg (27.0-33.0); Mean Corpuscular Volume 81.4 fL (80.0-98.0); Mean Platelet Volume 10.7 fL (9.4-12.4); Monocytes Absolute Auto 0.6 X10*3/uL (0.1-1.2); Monocytes Percent Auto 9.2 % (2-11); Neutrophils Absolute Auto 3.9 x10*3/uL (2.0-8.3); Platelet Count 179 X10*3/uL (160-400); Red Cell Distribution Width 17.2 % (11.0-16.0); White Blood Count 6.5 X10*3/uL (4.8-10.8)
[2023-02-01 14:09] LABS: Prothrombin Time 12.6 SEC (11.1-13.3)
[2023-02-01 14:16] LABS: Alanine Aminotransferase 15 U/L (0-40); Albumin Level 3.6 g/dL (3.5-5.0); Alkaline Phosphatase 124 U/L (39-117); Anion Gap 13 (12-20); Aspartate Amino Transferase 24 U/L (5-37); Bilirubin Direct 0.2 mg/dL (0.0-0.5); Bilirubin Total 0.4 mg/dL (0.0-1.0); Blood Urea Nitrogen 13 mg/dL (9-16); Carbon Dioxide 30 mmol/L (22-29); Chloride 104 mmol/L (96-108); Creatinine Clr Calc Pharmacy 78.1; Estimated Glomerular Filt Rate > 60; Glucose Random 111 mg/dL (60-115); Sodium 143 mmol/L (135-145); Total Protein 6.5 g/dL (6.5-8.0)
[2023-02-01] MEDS: Metoclopramide HCl 10 MG/2 ML VIAL IVPUSH (15:05)
[2023-02-01] MEDS: diphenhydrAMINE HCL 50 MG/ML VIAL IVPUSH (15:05)
[2023-02-01] MEDS: 0.9 % Sodium Chloride 1,000 ML 999 ML IV (15:07)
[2023-02-01] MEDS: Morphine Sulfate 4 MG/ML CARTRIDGE IVPUSH (15:07)
== END 2023-02-01 18:00 | disposition home or self-care (01) ==
PROVIDERS: Physician Assistant; Emergency Provider Emergency Medicine Emergency Medical Services; PCP Student in an Organized Health Care Education/Training Program
DX: R51.9 Headache, unspecified (principal); M54.2 Cervicalgia; R10.31 Right lower quadrant pain; E11.9 Type 2 diabetes mellitus without complications; R26.2 Difficulty in walking, not elsewhere classified; Z79.899 Other long term (current) drug therapy; Z87.891 Personal history of nicotine dependence; Z79.4 Long term (current) use of insulin
CPT/HCPCS: 36415; 70450; 80048; 80076; 83735; 85025; 85610; 96361; 96374; 96375; 99284; J1200; J2270; J2765

== ENCOUNTER 2023-02-02 14:33 | Outpatient (AMB) | payer MEDICARE, MEDICAID, SELFPAY ==
--- NOTE | 2023-02-02 15:31 | MHC.OFFVIS ---
Intake Vital Signs 02/02/23 15:45 Height 5 ft 8 in Weight 211 lb BMI 32.1 BP 136/74 Blood Pressure Location Lt brachial Position Sitting Respiration 16 Pulse 78 Pulse Source Pulse Oximeter Pulse Oximetry (%) 95 Oxygen Delivery Method Room Air Intake Visit Reasons: S/p ITDD Pain Pump IMPLANT 01/28/23 Intake Note: Patient comes in for post-op appointment S/P ITDD pain pump implant 01/28/23. Allergies grass pollen Allergy (Mild, Verified 02/02/23 15:45) unknown tree and shrub pollen Allergy (Mild, Verified 02/02/23 15:45) itchy eyes, sneeze, runny nose HPI HPI Comments History of Present Illness Details Malik is a very pleasant 72 year old male who presents to the office today for follow up 1 week s/p intrathecal pain pump insertion. While he reporting no issues with the lower back pain postoperatively he developed severe headache on the back of the head and on the back of the neck. He went into ER where he reported that his pain was significantly affected by the position with head down pain being better. He was diagnosed in the ER with post dural puncture headache and given standard regimen for conservative treatment of PDPH. Today he came for the dressing change. The wounds are healing properly and there is no redness, no swelling, no local tenderness, no local temperature, no pathological discharge. Bacitracin ointments were applied. Tegaderm dressing was applied He reports now severe pain in the base of the skull. In the past he received medial branch blocks of the cervical spine which helped his cervicalgia significantly. I gave him a task to perform and see if positioning is actually alleviating in fact his pain. If not consider this as a cervicalgia secondary to spondylosis of cervical spine and I will attempt to perform medial branch blocks with steroids for the patient. I also can try diagnostic epidural blood patch if his pain is positional and therefore would be a PDPH. Patient have reported 100% pain relief for 13 hours after ITDDD trial with bupivacaine 2 mg.. Prior: Malik?is in my office today after performance of intercept procedure L4, L5-S1 which was performed on 12/17/2022. Patient reports good pain relief up to 75% on the right side and he feels worse on the left side. it is still too early to make conclusions about the patient's pain however attention was attracted to the fact that he has still signs of sacroiliitis prominent compared to what he had before. I offered him diagnostic sacroiliac joint injection on the left to finally figure out what part of his pain is involved with the left sacroiliac joint. In the past he received trial of pain pump with excellent pain relieve and if there will be no significant results of the procedures where performing today neuromodulation with pain pump will be introduced for the patient. Prior: under observation in my office with multiple pain generators.? He he had implantation of the SCS Nevro on 10/30/2021. He reports moderate improvement of he has pain when spinal cord stimulator is working. He reports good pain relieve while he is at rest. However when he starts to move especially bend forward he reports pain exacerbation. In the past he had twice radiofrequency ablation and it was working ?like a miracle ?according to the patient. But 3rd procedure resulted in no improvement. He had L2-L3 L4 dorsal ramus L5 therapeutic medial branch block with co on 07/27/2022. That injection resulted only in 24 hours of pain improvement. . His pain is mostly axial with radiation into the lateral flanks. He denies radiation of the pain into bilateral lower extremity. He was sent for MRI dictattion of which is as below. I decided to send this MRI disc the patient Dr. Lara who is an expert in vertebra genic pain. The verbal consent from the patient was obtained to send his medical records to Dr. Lara. Meanwhile I took the patient for bupivacaine pain pump trial. He reported 13 hours of 100% pain relieve on 2 mg of bupivacaine injected into the epidural space. After the pain returned he reports that it became more severe than it was before the trial. I believe it is just perception bias of the patient who had significant pain relief and then he had his pain returned. Currently I think he might be a good candidate for bupivacaine pump to alleviate lower back pain however he has multiple medical conditions which resulted in abdominal pain as well as and cervicalgia. I am little bit hesitant to proceed with the implantation of the pump. I will wait until Dr. Lara will report on vertebra genic changes in the patient's MRI. ? He is complaining on cervicalgia cervical pain, he is complaining now on pain with swallowing and odynophagia, continues to complain on pain in the lower back.? Also continues to complain on new pain in the mid back in the projection of the thoracic spine.? In the past he received radiofrequency ablation of medial branches L3 L4-5 bilateral by and after him by me.? He reported excellent pain relieve each time for 2 years.? However repetition of the procedure this time resulted in?no?pain relieve and actually some pain aggravation.? We discussed possibility of treatment of his axial pain with Nevro spinal cord stimulator.? He was approved by psychological evaluation and he had a trial of SCS Nevro by Dr. Schmitt.? He reported 75% pain improvement he wants to proceed with implantation of the Nevro spinal cord stimulator. In the past he had bilateral therapeutic C2-C3 C4 MBB he underwent on 09/02/2020 :? He reports 100% relief from the time he had the procedure performed until today.? This constitutes almost 6 months of the pain relief.? He states ?it was a miracle as he has full range of motion of the neck with almost complete alleviation of his pain.? He reports occasional stiffness in the morning but resolves throughout the day.? He is quite satisfied with the result of the procedure. He also went for radiofrequency ablation C4-C5 C6 bilateral medial branches.? He reports 75% of the pain relief mostly in the lower cervical areas.? He reports that upper cervical areas are not affected by the injection.? He reports that alignment of his neck with round objects to increase the cervical lordosis alleviates his pain temporarily.? He requests me to repeat this procedures well.? However unfortunately we have to wait with this procedure after implantation of Nevro spinal cord stimulator and 8 weeks more because history stratton of the steroids during the RFA actually might compromise healing of the position of the epidural leads in posterior epidural space. 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, lumbar region PVD (peripheral vascular disease) Mood disorder On beta ruddy at home Benign essential tremor CVA (cerebral vascular accident) IDDM (insulin dependent diabetes mellitus) Sleep apnea Chronic renal insufficiency Myocardial infarction CHF (congestive heart failure) CAD (coronary artery disease) AAA (abdominal aortic aneurysm) Arrhythmia On anticoagulant therapy Elevated cholesterol HTN (hypertension) History of ischemic cardiomyopathy 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 Surgical History History of laparoscopic cholecystectomy (12/08/22) History of surgery History of surgery History of PTCA Hx of parathyroidectomy Hx of CABG History of hernia repair Hx of gastric bypass Hx of endoscopy History of colonoscopy Family History Father Hx of congenital heart disease Mother Hx of heat stroke Social History Household Members: None Housing: Apartment Are you a primary medicare coordinator to a significant other at home: No Do you presently have visiting nurse or other home services: Yes ([employer] 2 hours per week) Alcohol intake: current Alcohol intake frequency: holidays/special occasions only Patient Tobacco Use Status: Former Tobacco user Quit Date: 1988 Tobacco use type: Cigarette Second Hand Smoke Exposure: No Review of Systems Const All systems reviewed & are unremarkable except as noted in HPI and below ENT Reports Normal hearing present Neuro Reports Normal hearing present and Denies Abnormal speech present Physical Exam Vital Signs: Last Vital Signs Pulse 78 02/02/23 15:45 Resp 16 02/02/23 15:45 BP 136/74 02/02/23 15:45 Pulse Ox 95 02/02/23 15:45 Oxygen Delivery Method Room Air 02/02/23 15:45 BMI result Body Mass Index 32.1 Const General: cooperative, no acute distress, alert and well groomed Orientation/consciousness: patient oriented x3 HEENT Head: Yes normocephalic and Yes atraumatic Ears: hearing grossly normal bilaterally Eyes General: appearance normal, both eyes and all related structures Eyelids: Yes eyelids normal Pupils: Equal, round and reactive pupils present EOM: EOMs intact bilaterally Neck Neck: Yes normal visual inspection and Yes no JVD Resp Effort & Inspection: normal respiratory effort, able to speak in complete sentences and no audible wheezes Cardio Jugular venous distension: no JVD Back/Spine/Pelvis Other: Tenderness of palpation paraspinal spinal region in the entire spine cervical thoracic and lumbar. SLR is negative with foot dorsiflexion. Flexing forward aggravates the pain. Flexing backwards does not change the pain. James test, Gaenslen test, pelvic compression test, pelvic destruction test, positive on the left for left sacroiliitis. Neuro General: patient oriented x3 and moves all extremities Cranial nerves: Yes Equal, round and reactive pupils present and Yes Normal hearing present Cognition (Neuro): normal cognition Speech: No Abnormal speech present Psych Appearance: grossly normal Mental Status: mental status grossly normal Speech and movement: Normal speech and movement present Affect: normal affect Attitude: cooperative Thought process: Normal thought process present Thought content: Normal thought content present Insight: Good insight present (Psych) Judgement: Good judgement present (Psych) Assessment & Plan Assessment & Plan (1) Spondylosis of lumbosacral spine without myelopathy: Code(s): M47.817 - Spondylosis without myelopathy or radiculopathy, lumbosacral region (2) Disc degeneration, lumbar: Code(s): M51.36 - Other intervertebral disc degeneration, lumbar region (3) Chronic pain: Code(s): G89.29 - Other chronic pain (4) Chronic pain syndrome: Code(s): G89.4 - Chronic pain syndrome (5) Vertebrogenic low back pain: Code(s): M54.51 - Vertebrogenic low back pain (6) Lumbago of lumbar region with sciatica: Code(s): M54.40 - Lumbago with sciatica, unspecified side (7) 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 About 1 year he reported moderate help with spinal cord stimulator while at rest however with movements he reported significant exacerbation of the pain. In the past he received twice RFA of the L3-L4 dorsal ramus L5 medial branches with moderate success. However last time it to resulted in less than 2 months of pain relief. 07/27/2022 he received diagnostic and therapeutic medial branch block L2-L3 L4 does ramus L5. Unfortunately these injections resulted in no pain improvement longer than 24 hours. He went for MRI of the lumbar spine and had some nonspecific vertebrogenic changes which I requested to be evaluated by Dr. Lara, renown specialist on vertebrogenic pain from [place]. He had a trial of bupivacaine pain pump which resulted in 13 hours of 100% pain elimination. Dr. Lara reported that he has supple levels of the Modic type 2 changes in his vertebral spine. Have went for L4-, L 5, S1 intercept procedure. He reports 75% pain improvement globally he reports right side is better and down to 4/10. He still was c/o severe pain and the decision was made to go for the pain pump implant. Postoperatively he started to c/o pain in the neck vs pain in the back of the head. He is not very certain whether this pain is positional. The would is healing well. He has a h/o of very successful C2- C3- C4 therapeutic injection in the past, differential diagnosis in his case would be PDPH vs spondylosis of cervical spine. We agreed that he will be very attentive whether his pain is positional. Next appointment is in one week. Patient Instructions: I hereby testify that I spent 30 minutes in conversation with the patient as well as evatuation of his prior records, planning his care and organizing his note. 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
[2023-02-02 15:45] VITALS: BP 136/74; PULSE 78; RESP 16; O2SAT 95; BMI 32.1
== END 2023-02-02 16:08 | disposition home or self-care (01) ==
PROVIDERS: PCP Student in an Organized Health Care Education/Training Program; Visit Provider Anesthesiology
DX: M47.817 Spondylosis without myelopathy or radiculopathy, lumbosacral region (principal); M51.36 Other intervertebral disc degeneration, lumbar region; G89.29 Other chronic pain; G89.4 Chronic pain syndrome; M54.51 Vertebrogenic low back pain; M54.40 Lumbago with sciatica, unspecified side; M49.86 Spondylopathy in diseases classified elsewhere, lumbar region; M47.812 Spondylosis without myelopathy or radiculopathy, cervical region; M46.1 Sacroiliitis, not elsewhere classified; M53.3 Sacrococcygeal disorders, not elsewhere classified
CPT/HCPCS: 99024

== ENCOUNTER → 2023-02-02 14:33 | Outpatient (BNVA) | payer MEDICARE, MEDICAID, SELFPAY | PROVIDERS: PCP Student in an Organized Health Care Education/Training Program; Visit Provider Anesthesiology | DX: M47.817 Spondylosis without myelopathy or radiculopathy, lumbosacral region (principal); M51.36 Other intervertebral disc degeneration, lumbar region; M54.51 Vertebrogenic low back pain; M54.50 Low back pain, unspecified; M49.86 Spondylopathy in diseases classified elsewhere, lumbar region; M47.812 Spondylosis without myelopathy or radiculopathy, cervical region; M46.1 Sacroiliitis, not elsewhere classified; M53.3 Sacrococcygeal disorders, not elsewhere classified; G89.29 Other chronic pain; Z96.89 Presence of other specified functional implants | CPT/HCPCS: 99212 ==

== ENCOUNTER → 2023-02-09 14:34 | Outpatient (BNVA) | payer MEDICARE, MEDICAID, SELFPAY | PROVIDERS: PCP Student in an Organized Health Care Education/Training Program; Visit Provider Anesthesiology | DX: M47.817 Spondylosis without myelopathy or radiculopathy, lumbosacral region (principal); M47.812 Spondylosis without myelopathy or radiculopathy, cervical region; M49.86 Spondylopathy in diseases classified elsewhere, lumbar region; M51.36 Other intervertebral disc degeneration, lumbar region; M54.51 Vertebrogenic low back pain; M54.40 Lumbago with sciatica, unspecified side; M46.1 Sacroiliitis, not elsewhere classified; M53.3 Sacrococcygeal disorders, not elsewhere classified; G89.29 Other chronic pain; Z96.89 Presence of other specified functional implants | CPT/HCPCS: 62368 ==

== ENCOUNTER 2023-02-09 14:35 | Outpatient (AMB) | payer MEDICARE, MEDICAID, SELFPAY ==
--- NOTE | 2023-02-09 14:47 | A.OFFVIS_ITS ---
Intake Vital Signs 02/09/23 15:03 Height 5 ft 8 in Weight 211 lb BMI 32.1 BP 120/76 Blood Pressure Location Rt brachial Position Sitting Respiration 14 Pulse 96 Pulse Source Pulse Oximeter Pulse Oximetry (%) 99 Oxygen Delivery Method Room Air Intake Visit Reasons: S/p ITDD Pain Pump IMPLANT 01/28/23 Intake Note: patient comes in for s/p ITDD pain pump implant 01/28/23. Allergies grass pollen Allergy (Mild, Verified 02/09/23 15:04) unknown tree and shrub pollen Allergy (Mild, Verified 02/09/23 15:04) itchy eyes, sneeze, runny nose HPI HPI Comments History of Present Illness Details Malik is a very pleasant 72 year old male who presents to the office today for follow up 1 week s/p intrathecal pain pump insertion. He reports that the headache and neck pain almost disappeared, reports overall pain level 3/10 today. He reports excellent pain relief with 2 doses of the bupivacaine 2 mg every 8 hours, 2 boluses in 24 hours. He requests me only to increase slightly inch bolus. I read the pump today and I increased the bolus does from 1.9991 to 2.2995 mg per administration. The continues does will remain the same 0.5 mg per day. Dressing was removed today and wounds were exposed. No swelling, no pathological discharge, no tenderness on palpation, no local temperature, mild redness in the projection of the lumbar spine incision. The shey were removed today bacitracin ointment was applied with Tegaderm dressing I will invited the patient for the wound inspection for 1 week from now, I recommended him to continue with antibiotics and probiotics. He still will avoid showers and perform sponge passes only. Patient have reported 100% pain relief for 13 hours after ITDDD trial with bupivacaine 2 mg.. intercept procedure L4, L5-S1 which was performed on 12/17/2022. Patient reports good pain relief up to 75% on the right side and he feels worse on the left side. Prior: under observation in my office with multiple pain generators.? He he had implantation of the SCS Nevro on 10/30/2021. He reports moderate improvement of he has pain when spinal cord stimulator is working. He reports good pain relieve while he is at rest. However when he starts to move especially bend forward he reports pain exacerbation. In the past he had twice radiofrequency ablation and it was working ?like a miracle ?according to the patient. But 3rd procedure resulted in no improvement. He had L2-L3 L4 dorsal ramus L5 therapeutic medial branch block with me on 07/27/2022. That injection resulted only in 24 hours of pain improvement. . His pain is mostly axial with radiati on into the lateral flanks. He denies radiation of the pain into bilateral lower extremity. He was sent for MRI dictattion of which is as below. I decided to send this MRI disc the patient Dr. Lara who is an expert in vertebra genic pain. The verbal consent from the patient was obtained to send his medical records to Dr. Lara. Meanwhile I took the patient for bupivacaine pain pump trial. He reported 13 hours of 100% pain relieve on 2 mg of bupivacaine injected into the epidural space. After the pain returned he reports that it became more severe than it was before the trial. I believe it is just perception bias of the patient who had significant pain relief and then he had his pain returned. Currently I think he might be a good candidate for bupivacaine pump to alleviate lower back pain however he has multiple medical conditions which resulted in abdominal pain as well as and cervicalgia. I am little bit hesitant to proceed with the implantation of the pump. I will wait until Dr. Lara will report on vertebra genic changes in the patient's MRI. ? He is complaining on cervicalgia cervical pain, he is complaining now on pain with swallowing and odynophagia, continues to complain on pain in the lower back.? Also continues to complain on new pain in the mid back in the projection of the thoracic spine.? In the past he received radiofrequency ablation of medial branches L3 L4-5 bilateral by and after him by me.? He reported excellent pain relieve each time for 2 years.? However repetition of the procedure this time resulted in?no?pain relieve and actually some pain aggravation.? We discussed possibility of treatment of his axial pain with Nevro spinal cord stimulator.? He was approved by psychological evaluation and he had a trial of SCS Nevro by Dr. Schmitt.? He reported 75% pain improvement he wants to proceed with implantation of the Nevro spinal cord stimulator. In the past he had bilateral therapeutic C2-C3 C4 MBB he underwent on 09/02/2020 :? He reports 100% relief from the time he had the procedure performed until today.? This constitutes almost 6 months of the pain relief.? He states ?it was a miracle as he has full range of motion of the neck with almost complete alleviation of his pain.? He reports occasional stiffness in the morning but resolves throughout the day.? He is quite satisfied with the result of the procedure. He also went for radiofrequency ablation C4-C5 C6 bilateral medial branches.? He reports 75% of the pain relief mostly in the lower cervical areas.? He reports that upper cervical areas are not affected by the injection.? He reports that alignment of his neck with round objects to increase the cervical lordosis alleviates his pain temporarily.? He requests me to repeat this procedures well.? However unfortunately we have to wait with this procedure after implantation of Nevro spinal cord stimulator and 8 weeks more because history stratton of the steroids during the RFA actually might compromise healing of the position of the epidural leads in posterior epidural space. 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, lumbar region PVD (peripheral vascular disease) Mood disorder On beta ruddy at home Benign essential tremor CVA (cerebral vascular accident) IDDM (insulin dependent diabetes mellitus) Sleep apnea Chronic renal insufficiency Myocardial infarction CHF (congestive heart failure) CAD (coronary artery disease) AAA (abdominal aortic aneurysm) Arrhythmia On anticoagulant therapy Elevated cholesterol HTN (hypertension) History of ischemic cardiomyopathy 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 Surgical History History of laparoscopic cholecystectomy (12/08/22) History of surgery History of surgery History of PTCA Hx of parathyroidectomy Hx of CABG History of hernia repair Hx of gastric bypass Hx of endoscopy History of colonoscopy Family History Father Hx of congenital heart disease Mother Hx of heat stroke Social History Household Members: None Housing: Apartment Are you a primary health careers instructor to a significant other at home: No Do you presently have visiting nurse or other home services: Yes ([employer] 2 hours per week) Alcohol intake: current Alcohol intake frequency: holidays/special occasions only Patient Tobacco Use Status: Former Tobacco user Quit Date: 1988 Tobacco use type: Cigarette Second Hand Smoke Exposure: No Review of Systems Const All systems reviewed & are unremarkable except as noted in HPI and below ENT Reports Normal hearing present Neuro Reports Normal hearing present and Denies Abnormal speech present Physical Exam Vital Signs: Last Vital Signs Pulse 96 02/09/23 15:03 Resp 14 02/09/23 15:03 BP 120/76 02/09/23 15:03 Pulse Ox 99 02/09/23 15:03 Oxygen Delivery Method Room Air 02/09/23 15:03 BMI result Body Mass Index 32.1 Const General: cooperative, no acute distress, alert and well groomed Orientation/consciousness: patient oriented x3 HEENT Head: Yes normocephalic and Yes atraumatic Ears: hearing grossly normal bilaterally Eyes General: appearance normal, both eyes and all related structures Eyelids: Yes eyelids normal Pupils: Equal, round and reactive pupils present EOM: EOMs intact bilaterally Neck Neck: Yes normal visual inspection and Yes no JVD Resp Effort & Inspection: normal respiratory effort, able to speak in complete sentences and no audible wheezes Cardio Jugular venous distension: no JVD Back/Spine/Pelvis Other: Tenderness of palpation paraspinal spinal region in the entire spine cervical thoracic and lumbar. SLR is negative with foot dorsiflexion. Flexing forward aggravates the pain. Flexing backwards does not change the pain. James test, Gaenslen test, pelvic compression test, pelvic destruction test, positive on the left for left sacroiliitis. Neuro General: patient oriented x3 and moves all extremities Cranial nerves: Yes Equal, round and reactive pupils present and Yes Normal hearing present Cognition (Neuro): normal cognition Speech: No Abnormal speech present Psych Appearance: grossly normal Mental Status: mental status grossly normal Speech and movement: Normal speech and movement present Affect: normal affect Attitude: cooperative Thought process: Normal thought process present Thought content: Normal thought content present Insight: Good insight present (Psych) Judgement: Good judgement present (Psych) Assessment & Plan Assessment & Plan (1) Spondylosis of lumbosacral spine without myelopathy: Code(s): M47.817 - Spondylosis without myelopathy or radiculopathy, lumbosacral region (2) Disc degeneration, lumbar: Code(s): M51.36 - Other intervertebral disc degeneration, lumbar region (3) Chronic pain: Code(s): G89.29 - Other chronic pain (4) Chronic pain syndrome: Code(s): G89.4 - Chronic pain syndrome (5) Vertebrogenic low back pain: Code(s): M54.51 - Vertebrogenic low back pain (6) Lumbago of lumbar region with sciatica: Code(s): M54.40 - Lumbago with sciatica, unspecified side (7) 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 The patient was positioned sitting on examine aiding table and the intrathecal pain pump was interrogated. The patient has 38 cc of the treatment solution in the pump. The pump was adjusted. The rate was left continue 0.5 mg per 24 hours with ability of the patient to administer increased dose of bupivacaine 2.3 mg every 8 hours twice in 24 hours interval. Plan Implant of SCS was performed for the patient. About 1 year he reported moderate help with spinal cord stimulator while at rest however with movements he reported significant exacerbation of the pain. In the past he received twice RFA of the L3-L4 dorsal ramus L5 medial branches with moderate success. However last time it to resulted in less than 2 months of pain relief. 07/27/2022 he received diagnostic and therapeutic medial branch block L2-L3 L4 does ramus L5. Unfortunately these injections resulted in no pain improvement longer than 24 hours. He went for MRI of the lumbar spine and had some nonspecific vertebrogenic changes which I requested to be evaluated by Dr. Lara, renown specialist on vertebrogenic pain from [place]. He had a trial of bupivacaine pain pump which resulted in 13 hours of 100% pain elimination. Dr. Lara reported that he has supple levels of the Modic type 2 changes in his vertebral spine. Have went for L4-, L 5, S1 intercept procedure. He reports 75% pain improvement globally he reports right side is better and down to 4/10. He still was c/o severe pain and the decision was made to go for the pain pump implant. He is doing very well after pain pump implantation, he reports overall pain 3/10. He reports excellent help with intrathecal doses of the bupivacaine. The dose increase slightly as above. Next appointment will be scheduled in 1 week for wound inspection. Until then he will continue oral antibiotics. 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
[2023-02-09 15:03] VITALS: BP 120/76; PULSE 96; RESP 14; O2SAT 99; BMI 32.1
== END 2023-02-09 15:23 | disposition home or self-care (01) ==
PROVIDERS: PCP Student in an Organized Health Care Education/Training Program; Visit Provider Anesthesiology
DX: G89.4 Chronic pain syndrome (principal); M47.817 Spondylosis without myelopathy or radiculopathy, lumbosacral region; M51.36 Other intervertebral disc degeneration, lumbar region; Z45.1 Encounter for adjustment and management of infusion pump; M54.51 Vertebrogenic low back pain; M54.40 Lumbago with sciatica, unspecified side; M49.86 Spondylopathy in diseases classified elsewhere, lumbar region; M47.812 Spondylosis without myelopathy or radiculopathy, cervical region; M46.1 Sacroiliitis, not elsewhere classified; M53.3 Sacrococcygeal disorders, not elsewhere classified
CPT/HCPCS: 62368

== ENCOUNTER 2023-02-16 15:08 | Outpatient (AMB) | payer MEDICARE, MEDICAID, SELFPAY ==
--- NOTE | 2023-02-16 15:24 | A.OFFVIS_ITS ---
Intake Vital Signs 02/16/23 15:48 Height 5 ft 8 in Weight 211 lb BMI 32.1 BP 136/72 Blood Pressure Location Lt brachial Position Sitting Respiration 18 Pulse 80 Pulse Source Pulse Oximeter Pulse Oximetry (%) 96 Oxygen Delivery Method Room Air Intake Visit Reasons: pain pump follow up Intake Note: Patient comes in for a follow up appointment. Reports pain level 2/10. Allergies grass pollen Allergy (Mild, Verified 02/16/23 15:24) unknown tree and shrub pollen Allergy (Mild, Verified 02/16/23 15:24) itchy eyes, sneeze, runny nose HPI HPI Comments History of Present Illness Details Malik is a very pleasant 72 year old male who presents to the office today for follow up 1 week s/p intrathecal pain pump insertion. He reports that the headache and neck pain almost disappeared, reports overall pain level 3/10 today. He reports excellent pain relief with 2 doses of the bupivacaine 2 mg every 8 hours, 2 boluses in 24 hours. The bolus was increased slightly last time from 1.9991 to 2.2995 mg per administration. The continues does will remain the same 0.5 mg per day. Dressing was removed today and wounds were exposed. No swelling, no pathological discharge, no tenderness on palpation, no local temperature, much less of the redness in the projection of the lumbar spine incision. Patient will be allowed to shower. He will be allowed to spend night in bed without abdominal binder. Abdominal binder will be appropriately trained apply pressure on only at the level of the pump. The limitation of the daily activities were reiterated to the patient. Next appointment for the pump refill. Patient have reported 100% pain relief for 13 hours after ITDDD trial with bupivacaine 2 mg.. intercept procedure L4, L5-S1 which was performed on 12/17/2022. Patient reports good pain relief up to 75% on the right side and he feels worse on the left side. Prior: under observation in my office with multiple pain generators.? He he had implantation of the SCS Nevro on 10/30/2021. He reports moderate improvement of he has pain when spinal cord stimulator is working. He reports good pain relieve while he is at rest. However when he starts to move especially bend forward he reports pain exacerbation. In the past he had twice radiofrequency ablation and it was working ?like a miracle ?according to the patient. But 3rd procedure resulted in no improvement. He had L2-L3 L4 dorsal ramus L5 therapeutic medial branch block with me on 07/27/2022. That injection resulted only in 24 hours of pain improvement. . His pain is mostly axial with radiati on into the lateral flanks. He denies radiation of the pain into bilateral lower extremity. He was sent for MRI dictattion of which is as below. I decided to send this MRI disc the patient Dr. Lara who is an expert in vertebra genic pain. The verbal consent from the patient was obtained to send his medical records to Dr. Lara. Meanwhile I took the patient for bupivacaine pain pump trial. He reported 13 hours of 100% pain relieve on 2 mg of bupivacaine injected into the epidural space. After the pain returned he reports that it became more severe than it wa s before the trial. I believe it is just perception bias of the patient who had significant pain relief and then he had his pain returned. Currently I think he might be a good candidate for bupivacaine pump to alleviate lower back pain however he has multiple medical conditions which resulted in abdominal pain as well as and cervicalgia. I am little bit hesitant to proceed with the implantation of the pump. I will wait until Dr. Lara will report on vertebra genic changes in the patient's MRI. ? He is complaining on cervicalgia cervical pain, he is complaining now on pain with swallowing and odynophagia, continues to complain on pain in the lower back.? Also continues to complain on new pain in the mid back in the projection of the thoracic spine.? In the past he received radiofrequency ablation of medial branches L3 L4-5 bilateral by and after him by me.? He reported excellent pain relieve each time for 2 years.? However repetition of the procedure this time resulted in?no?pain relieve and actually some pain aggravation.? We discussed possibility of treatment of his axial pain with Nevro spinal cord stimulator.? He was approved by psychological evaluation and he had a trial of SCS Nevro by Dr. Schmitt.? He reported 75% pain improvement he wants to proceed with implantation of the Nevro spinal cord stimulator. In the past he had bilateral therapeutic C2-C3 C4 MBB he underwent on 09/02/2020 :? He reports 100% relief from the time he had the procedure performed until today.? This constitutes almost 6 months of the pain relief.? He states ?it was a miracle as he has full range of motion of the neck with almost complete alleviation of his pain.? He reports occasional stiffness in the morning but resolves throughout the day.? He is quite satisfied with the result of the procedure. He also went for radiofrequency ablation C4-C5 C6 bilateral medial branches.? He reports 75% of the pain relief mostly in the lower cervical areas.? He reports that upper cervical areas are not affected by the injection.? He reports that alignment of his neck with round objects to increase the cervical lordosis alleviates his pain temporarily.? He requests me to repeat this procedures well.? However unfortunately we have to wait with this procedure after implantation of Nevro spinal cord stimulator and 8 weeks more because history stratton of the steroids during the RFA actually might compromise healing of the position of the epidural leads in posterior epidural space. 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, lumbar region PVD (peripheral vascular disease) Mood disorder On beta ruddy at home Benign essential tremor CVA (cerebral vascular accident) IDDM (insulin dependent diabetes mellitus) Sleep apnea Chronic renal insufficiency Myocardial infarction CHF (congestive heart failure) CAD (coronary artery disease) AAA (abdominal aortic aneurysm) Arrhythmia On anticoagulant therapy Elevated cholesterol HTN (hypertension) History of ischemic cardiomyopathy 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 Surgical History History of laparoscopic cholecystectomy (12/08/22) History of surgery History of surgery History of PTCA Hx of parathyroidectomy Hx of CABG History of hernia repair Hx of gastric bypass Hx of endoscopy History of colonoscopy Family History Father Hx of congenital heart disease Mother Hx of heat stroke Social History Household Members: None Housing: Apartment Are you a primary career development counselor to a significant other at home: No Do you presently have visiting nurse or other home services: 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) Alcohol intake: current Alcohol intake frequency: holidays/special occasions only Patient Tobacco Use Status: Former Tobacco user Quit Date: 1988 Tobacco use type: Cigarette Second Hand Smoke Exposure: No Review of Systems Const All systems reviewed & are unremarkable except as noted in HPI and below ENT Reports Normal hearing present Neuro Reports Normal hearing present and Denies Abnormal speech present Physical Exam Vital Signs: Last Vital Signs Pulse 80 02/16/23 15:48 Resp 18 02/16/23 15:48 BP 136/72 02/16/23 15:48 Pulse Ox 96 02/16/23 15:48 Oxygen Delivery Method Room Air 02/16/23 15:48 BMI result Body Mass Index 32.1 Const General: cooperative, no acute distress, alert and well groomed Orientation/consciousness: patient oriented x3 HEENT Head: Yes normocephalic and Yes atraumatic Ears: hearing grossly normal bilaterally Eyes General: appearance normal, both eyes and all related structures Eyelids: Yes eyelids normal Pupils: Equal, round and reactive pupils present EOM: EOMs intact bilaterally Neck Neck: Yes normal visual inspection and Yes no JVD Resp Effort & Inspection: normal respiratory effort, able to speak in complete sentences and no audible wheezes Cardio Jugular venous distension: no JVD Back/Spine/Pelvis Other: Tenderness of palpation paraspinal spinal region in the entire spine cervical thoracic and lumbar. SLR is negative with foot dorsiflexion. Flexing forward aggravates the pain. Flexing backwards does not change the pain. James test, Gaenslen test, pelvic compression test, pelvic destruction test, positive on the left for left sacroiliitis. Neuro General: patient oriented x3 and moves all extremities Cranial nerves: Yes Equal, round and reactive pupils present and Yes Normal hearing present Cognition (Neuro): normal cognition Speech: No Abnormal speech present Psych Appearance: grossly normal Mental Status: mental status grossly normal Speech and movement: Normal speech and movement present Affect: normal affect Attitude: cooperative Thought process: Normal thought process present Thought content: Normal thought content present Insight: Good insight present (Psych) Judgement: Good judgement present (Psych) Assessment & Plan Assessment & Plan (1) Spondylosis of lumbosacral spine without myelopathy: Code(s): M47.817 - Spondylosis without myelopathy or radiculopathy, lumbosacral region (2) Disc degeneration, lumbar: Code(s): M51.36 - Other intervertebral disc degeneration, lumbar region (3) Chronic pain: Code(s): G89.29 - Other chronic pain (4) Chronic pain syndrome: Code(s): G89.4 - Chronic pain syndrome (5) Vertebrogenic low back pain: Code(s): M54.51 - Vertebrogenic low back pain (6) Lumbago of lumbar region with sciatica: Code(s): M54.40 - Lumbago with sciatica, unspecified side (7) 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 The patient was positioned sitting on examine aiding table and the intrathecal pain pump was interrogated. The patient has 38 cc of the treatment solution in the pump. The pump was adjusted. The rate was left continue 0.5 mg per 24 hours with ability of the patient to administer increased dose of bupivacaine 2.3 mg every 8 hours twice in 24 hours interval. Plan Implant of SCS was performed for the patient. About 1 year he reported moderate help with spinal cord stimulator while at rest however with movements he reported significant exacerbation of the pain. In the past he received twice R FA of the L3-L4 dorsal ramus L5 medial branches with moderate success. However last time it to resulted in less than 2 months of pain relief. 07/27/2022 he received diagnostic and therapeutic medial branch block L2-L3 L4 does ramus L5. Unfortunately these injections resulted in no pain improvement longer than 24 hours. He went for MRI of the lumbar spine and had some nonspecific vertebrogenic changes which I requested to be evaluated by Dr. Lara, renown specialist on vertebrogenic pain from [place]. He had a trial of bupivacaine pain pump which resulted in 13 hours of 100% pain elimination. Dr. Lara reported that he has supple levels of the Modic type 2 changes in his vertebral spine. Have went for L4-, L 5, S1 intercept procedure. He reports 75% pain improvement globally he reports right side is better and down to 4/10. He still was c/o severe pain and the decision was made to go for the pain pump implant. He is doing very well after pain pump implantation, he reports overall pain 3/10. He reports excellent help with intrathecal doses of the bupivacaine. The dose increase slightly as above. The wounds are doing much better at this time the redness is much less and healing is complete. Next appointment will be scheduled for pump refill. 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
[2023-02-16 15:48] VITALS: BP 136/72; PULSE 80; RESP 18; O2SAT 96; BMI 32.1
== END 2023-02-16 15:41 | disposition home or self-care (01) ==
PROVIDERS: PCP Student in an Organized Health Care Education/Training Program; Visit Provider Anesthesiology
DX: G89.4 Chronic pain syndrome (principal); M47.817 Spondylosis without myelopathy or radiculopathy, lumbosacral region; Z45.1 Encounter for adjustment and management of infusion pump; M51.36 Other intervertebral disc degeneration, lumbar region; M54.51 Vertebrogenic low back pain; M54.40 Lumbago with sciatica, unspecified side; M49.86 Spondylopathy in diseases classified elsewhere, lumbar region; M47.812 Spondylosis without myelopathy or radiculopathy, cervical region; M46.1 Sacroiliitis, not elsewhere classified; M53.3 Sacrococcygeal disorders, not elsewhere classified
CPT/HCPCS: 95991; 99214

== ENCOUNTER → 2023-02-16 15:08 | Outpatient (BNVA) | payer MEDICARE, MEDICAID, SELFPAY | PROVIDERS: PCP Student in an Organized Health Care Education/Training Program; Visit Provider Anesthesiology | DX: Z96.89 Presence of other specified functional implants (principal); M47.817 Spondylosis without myelopathy or radiculopathy, lumbosacral region; M51.36 Other intervertebral disc degeneration, lumbar region; M54.51 Vertebrogenic low back pain; M54.40 Lumbago with sciatica, unspecified side; M49.86 Spondylopathy in diseases classified elsewhere, lumbar region; M47.812 Spondylosis without myelopathy or radiculopathy, cervical region; M46.1 Sacroiliitis, not elsewhere classified; M53.3 Sacrococcygeal disorders, not elsewhere classified; G89.29 Other chronic pain | CPT/HCPCS: 99212 ==

== ENCOUNTER 2023-03-14 11:17 | Outpatient (AMB) | payer MEDICARE, MEDICAID, SELFPAY ==
--- NOTE | 2023-03-14 11:21 | A.OFFVIS_ITS ---
Intake Vital Signs 03/14/23 12:20 Height 5 ft 8 in Weight 211 lb BMI 32.1 BP 142/78 H Blood Pressure Location Lt brachial Position Sitting Respiration 16 Pulse 71 Pulse Source Pulse Oximeter Pulse Oximetry (%) 94 Oxygen Delivery Method Room Air Intake Visit Reasons: ITDD REFILL/lvm Intake Note: Patient comes in for intrathecal medication refill. Reports pain 07/31. Allergies grass pollen Allergy (Mild, Verified 03/14/23 11:22) unknown tree and shrub pollen Allergy (Mild, Verified 03/14/23 11:22) itchy eyes, sneeze, runny nose HPI HPI Comments History of Present Illness Details Malik is a very pleasant 72 year old male who presents to the office today for refill of the intrathecal pain pump the intrathecal pain pump was read and that looks like that patient used only 4 mls of his intrathecal medication. He reported severe significant pain coming back. When he was asked about at he told us that he forgot how to apply the boluses to himself. I asked him if anyone of his relatives could remember but he answered that he lives alone. In this circumstance the only way we can make sure the patient received necessary doses of the intrathecal medication would be scheduling patient for flexible delivery of the pain pump medication. Patient was instructed to give us a call on how his pain pump is working and we can invited him for pump adjustment to improve his pain perception. Next appointment for the pump refill. Patient have reported 100% pain relief for 13 hours after ITDDD trial with bupivacaine 2 mg.. intercept procedure L4, L5-S1 which was performed on 12/17/2022. Patient reports good pain relief up to 75% on the right side and he feels worse on the left side. Prior: under observation in my office with multiple pain generators.? He he had implantation of the SCS Nevro on 10/30/2021. He reports moderate improvement of he has pain when spinal cord stimulator is working. He reports good pain relieve while he is at rest. However when he starts to move especially bend forward he reports pain exacerbation. In the past he had twice radiofrequency ablation and it was working ?like a miracle ?according to the patient. But 3rd procedure resulted in no improvement. He had L2-L3 L4 dorsal ramus L5 therapeutic medial branch block with me on 07/27/2022. That injection resulted only in 24 hours of pain improvement. . His pain is mostly axial with radiati on into the lateral flanks. He denies radiation of the pain into bilateral lower extremity. He was sent for MRI dictattion of which is as below. I decided to send this MRI disc the patient Dr. Lara who is an expert in vertebra genic pain. The verbal consent from the patient was obtained to send his medical records to Dr. Lara. Meanwhile I took the patient for bupivacaine pain pump trial. He reported 13 hours of 100% pain relieve on 2 mg of bupivacaine injected into the epidural space. After the pain returned he reports that it became more severe than it was before the trial. I believe it is just perception bias of the patient who had significant pain relief and then he had his pain returned. Currently I think he might be a good candidate for bupivacaine pump to alleviate lower back pain however he has multiple medical conditions which resulted in abdominal pain as well as and cervicalgia. I am little bit hesitant to proceed with the implantation of the pump. I will wait until Dr. Lara will report on vertebra genic changes in the patient's MRI. ? He is complaining on cervicalgia cervical pain, he is complaining now on pain with swallowing and odynophagia, continues to complain on pain in the lower back.? Also continues to complain on new pain in the mid back in the projection of the thoracic spine.? In the past he received radiofrequency ablation of medial branches L3 L4-5 bilateral by and after him by me.? He reported excellent pain relieve each time for 2 years.? However repetition of the procedure this time resulted in?no?pain relieve and actually some pain aggravation.? We discussed possibility of treatment of his axial pain with Nevro spinal cord stimulator.? He was approved by psychological evaluation and he had a trial of SCS Nevro by Dr. Schmitt.? He reported 75% pain improvement he wants to proceed with implantation of the Nevro spinal cord stimulator. In the past he had bilateral therapeutic C2-C3 C4 MBB he underwent on 09/02/2020 :? He reports 100% relief from the time he had the procedure performed until today.? This constitutes almost 6 months of the pain relief.? He states ?it was a miracle as he has full range of motion of the neck with almost complete alleviation of his pain.? He reports occasional stiffness in the morning but resolves throughout the day.? He is quite satisfied with the result of the procedure. He also went for radiofrequency ablation C4-C5 C6 bilateral medial branches.? He reports 75% of the pain relief mostly in the lower cervical areas.? He reports that upper cervical areas are not affected by the injection.? He reports that alignment of his neck with round objects to increase the cervical lordosis alleviates his pain temporarily.? He requests me to repeat this procedures well.? However unfortunately we have to wait with this procedure after implantation of Nevro spinal cord stimulator and 8 weeks more because history stratton of the steroids during the RFA actually might compromise healing of the position of the epidural leads in posterior epidural space. 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, lumbar region PVD (peripheral vascular disease) Mood disorder On beta ruddy at home Benign essential tremor CVA (cerebral vascular accident) IDDM (insulin dependent diabetes mellitus) Sleep apnea Chronic renal insufficiency Myocardial infarction CHF (congestive heart failure) CAD (coronary artery disease) AAA (abdominal aortic aneurysm) Arrhythmia On anticoagulant therapy Elevated cholesterol HTN (hypertension) History of ischemic cardiomyopathy 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 Surgical History History of laparoscopic cholecystectomy (12/08/22) History of surgery History of surgery History of PTCA Hx of parathyroidectomy Hx of CABG History of hernia repair Hx of gastric bypass Hx of endoscopy History of colonoscopy Family History Father Hx of congenital heart disease Mother Hx of heat stroke Social History Household Members: None Housing: Apartment Are you a primary career development associate to a significant other at home: No Do you presently have visiting nurse or other home services: 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) Alcohol intake: current Alcohol intake frequency: holidays/special occasions only Patient Tobacco Use Status: Former Tobacco user Quit Date: 1988 Tobacco use type: Cigarette Second Hand Smoke Exposure: No Review of Systems Const All systems reviewed & are unremarkable except as noted in HPI and below ENT Reports Normal hearing present Neuro Reports Normal hearing present and Denies Abnormal speech present Physical Exam Vital Signs: Last Vital Signs Pulse 71 03/14/23 12:20 Resp 16 03/14/23 12:20 BP 142/78 H 03/14/23 12:20 Pulse Ox 94 03/14/23 12:20 Oxygen Delivery Method Room Air 03/14/23 12:20 BMI result Body Mass Index 32.1 Const General: cooperative, no acute distress, alert and well groomed Orientation/consciousness: patient oriented x3 HEENT Head: Yes normocephalic and Yes atraumatic Ears: hearing grossly normal bilaterally Eyes General: appearance normal, both eyes and all related structures Eyelids: Yes eyelids normal Pupils: Equal, round and reactive pupils present EOM: EOMs intact bilaterally Neck Neck: Yes normal visual inspection and Yes no JVD Resp Effort & Inspection: normal respiratory effort, able to speak in complete senten monster and no audible wheezes Cardio Jugular venous distension: no JVD Back/Spine/Pelvis Other: Tenderness of palpation paraspinal spinal region in the entire spine cervical thoracic and lumbar. SLR is negative with foot dorsiflexion. Flexing forward aggravates the pain. Flexing backwards does not change the pain. James test, Gaenslen test, pelvic compression test, pelvic destruction test, positive on the left for left sacroiliitis. Neuro General: patient oriented x3 and moves all extremities Cranial nerves: Yes Equal, round and reactive pupils present and Yes Normal hearing present Cognition (Neuro): normal cognition Speech: No Abnormal speech present Assessment & Plan Assessment & Plan (1) Vertebrogenic low back pain: Code(s): M54.51 - Vertebrogenic low back pain (2) Chronic pain syndrome: Code(s): G89.4 - Chronic pain syndrome (3) Poorly controlled type 2 diabetes mellitus: Code(s): E11.65 - Type 2 diabetes mellitus with hyperglycemia Plan: I will schedule this patient for the new pump refill in 04/22/2023. However it is possible that he will come visit us for pump adjustment and with dose increase we would need to change the concentration of the pump to 8 milligrams/mL to extend the time between the refills. He will give us a call in about a week and let us know how the current doses working for him. Plan Intrathecal pump refill. THE PATIENT CAME TODAY in the office FOR THE CHANGE OF THE MEDICATION IN her PAIN PUMP. The name and date of were verified and informed consent was obtained for the procedure. ?The pump was interrogated and the residual amount of fluid was found to be 34.8 mL. He WAS POSITIONED left lateral decubitus on the bed AND THE AREA OF THE INTRATHECAL PUMP on the right flank WAS PREPPED WITH CHLORAPREP. The fenestrated drape was sterilely applied over the area of the pump. Sterile gloves were worn and of the aspiration system was assembled containing 2 in 22 gauge noncoring needle, the needle was connected to extension tubing which was connected to the 20 cc sterile syringe. The pain pump was palpated under the skin in the patient's right upper flank under the right rib. The needle was inserted through the skin and the central plug of the pain pump and fluid was aspirated. The clear fluid was going into the syringe the total amount of the fluid was 35 mL .. After that a new batch? of medication was obtained which was containing bupivacaine 5 mg per ml. The admixture was made in 40 cc syringe prepared by [facility] compounding pharmacy. The syringe was connected to the bacterial filter, and then connected to the extension tubing. After that the medication in the syringe was slowly instilled into the pump with aspirations at 30, 15 and 5 cc lara.? The pump was reprogrammed for the doses of bupivacaine 0.5 mg per 24 hours with flexible administration of the medication twice a day at 09:00 and 19:00 hours delivering patient 2.25 mg of bupivacaine as a bolus dose.? Coding Level of Care Code Est Pt Level 4 (91935) Procedure Only Diagnoses Vertebrogenic low back pain M54.51 Chronic pain syndrome G89.4 Poorly controlled type 2 diabetes mellitus E11.65
[2023-03-14 12:20] VITALS: BP 142/78; PULSE 71; RESP 16; O2SAT 94; BMI 32.1
== END 2023-03-14 12:09 | disposition home or self-care (01) ==
LOC: HO.PMC 11:17
PROVIDERS: PCP Student in an Organized Health Care Education/Training Program; Visit Provider Anesthesiology
DX: M54.51 Vertebrogenic low back pain (principal); G89.4 Chronic pain syndrome; E11.65 Type 2 diabetes mellitus with hyperglycemia; Z45.1 Encounter for adjustment and management of infusion pump
CPT/HCPCS: 62370; 99214

== ENCOUNTER → 2023-03-14 11:17 | Outpatient (BNVA) | payer MEDICARE, MEDICAID, SELFPAY | PROVIDERS: PCP Student in an Organized Health Care Education/Training Program; Visit Provider Anesthesiology | DX: M54.51 Vertebrogenic low back pain (principal); E11.65 Type 2 diabetes mellitus with hyperglycemia; G89.4 Chronic pain syndrome | CPT/HCPCS: 62370; 99212 ==

== ENCOUNTER → 2023-03-21 10:36 | Outpatient (BNVA) | payer MEDICARE, MEDICAID, SELFPAY | PROVIDERS: PCP Student in an Organized Health Care Education/Training Program; Visit Provider Anesthesiology | DX: Z45.89 Encounter for adjustment and management of other implanted devices (principal); M54.51 Vertebrogenic low back pain; E11.65 Type 2 diabetes mellitus with hyperglycemia; G89.4 Chronic pain syndrome | CPT/HCPCS: 99212 ==

== ENCOUNTER 2023-03-21 12:48 | Outpatient (AMB) | payer MEDICARE, MEDICAID, SELFPAY ==
--- NOTE | 2023-03-21 12:57 | A.OFFVIS_ITS ---
Intake Vital Signs 03/21/23 13:08 Height 5 ft 8 in Weight 211 lb BMI 32.1 BP 128/78 Blood Pressure Location Lt brachial Position Sitting Respiration 14 Pulse 77 Pulse Source Pulse Oximeter Pulse Oximetry (%) 94 Oxygen Delivery Method Room Air Intake Visit Reasons: Increased pain/ leg weakness, pain in abdomen Intake Note: Patient comes in for increased pain. Reports pain 0/10. Allergies grass pollen Allergy (Mild, Verified 03/21/23 13:07) unknown tree and shrub pollen Allergy (Mild, Verified 03/21/23 13:07) itchy eyes, sneeze, runny nose HPI HPI Comments History of Present Illness Details Malik is a very pleasant 72 year old male who presents to the office with complains on numbness in the abdomen and inability to urinate approximately within 1 hour after his morning dose of the medication as well as evening dose of the medication. He reports that the afternoon dose does not give him this symptoms. His afternoon dose was delivering his medication in the course of 1 hour while morning and evening dose were delivering his medication over the course of 40 minutes. Maybe the jet of the pain pump is too strong and spreads medication too far. I decided today to change the medications time administration to longer than 1 hour. I also changed morning dose of the medication from 09:00 to 10:30. We will see how this changes will affect the patient's ability to urinate as well as patient's ability to stand and walk. He is planning to join the gym and he will do it in the morning. It will be more comfortable for him in he receives the dose of the medication after he comes from gym. This way his muscular strength will remain intact. Patient have reported 100% pain relief for 13 hours after ITDDD trial with bupivacaine 2 mg.. intercept procedure L4, L5-S1 which was performed on 12/17/2022. Patient reports good pain relief up to 75% on the right side and he feels worse on the left side. Prior: under observation in my office with multiple pain generators.? He he had implantation of the SCS Nevro on 10/30/2021. He reports moderate improvement of he has pain when spinal cord stimulator is working. He reports good pain relieve while he is at rest. However when he starts to move especially bend forward he reports pain exacerbation. In the past he had twice radiofrequency ablation and it was working ?like a miracle ?according to the patient. But 3rd procedure resulted in no improvement. He had L2-L3 L4 dorsal ramus L5 therapeutic medial branch block with me on 07/27/2022. That injection resulted only in 24 hours of pain improvement. . His pain is mostly axial with radiati on into the lateral flanks. He denies radiation of the pain into bilateral lower extremity. He was sent for MRI dict attion of which is as below. I decided to send this MRI disc the patient Dr. Lara who is an expert in vertebra genic pain. The verbal consent from the patient was obtained to send his medical records to Dr. Lara. Meanwhile I took the patient for bupivacaine pain pump trial. He reported 13 hours of 100% pain relieve on 2 mg of bupivacaine injected into the epidural space. After the pain returned he reports that it became more severe than it was before the trial. I believe it is just perception bias of the patient who had significant pain relief and then he had his pain returned. Currently I think he might be a good candidate for bupivacaine pump to alleviate lower back pain however he has multiple medical conditions which resulted in abdominal pain as well as and cervicalgia. I am little bit hesitant to proceed with the implantation of the pump. I will wait until Dr. Lara will report on vertebra genic changes in the patient's MRI. ? He is complaining on cervicalgia cervical pain, he is complaining now on pain with swallowing and odynophagia, continues to complain on pain in the lower back.? Also continues to complain on new pain in the mid back in the projection of the thoracic spine.? In the past he received radiofrequency ablation of medial branches L3 L4-5 bilateral by and after him by me.? He reported excellent pain relieve each time for 2 years.? However repetition of the procedure this time resulted in?no?pain relieve and actually some pain aggravation.? We discussed possibility of treatment of his axial pain with Nevro spinal cord stimulator.? He was approved by psychological evaluation and he had a trial of SCS Nevro by Dr. Schmitt.? He reported 75% pain improvement he wants to proceed with implantation of the Nevro spinal cord stimulator. In the past he had bilateral therapeutic C2-C3 C4 MBB he underwent on 09/02/2020 :? He reports 100% relief from the time he had the procedure performed until today.? This constitutes almost 6 months of the pain relief.? He states ?it was a miracle as he has full range of motion of the neck with almost complete alleviation of his pain.? He reports occasional stiffness in the morning but resolves throughout the day.? He is quite satisfied with the result of the procedure. He also went for radiofrequency ablation C4-C5 C6 bilateral medial branches.? He reports 75% of the pain relief mostly in the lower cervical areas.? He reports that upper cervical areas are not affected by the injection.? He reports that alignment of his neck with round objects to increase the cervical lordosis alleviates his pain temporarily.? He requests me to repeat this procedures well.? However unfortunately we have to wait with this procedure after implantation of Nevro spinal cord stimulator and 8 weeks more because history stratton of the steroids during the RFA actually might compromise healing of the position of the epidural leads in posterior epidural space. 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, lumbar region PVD (peripheral vascular disease) Mood disorder On beta ruddy at home Benign essential tremor CVA (cerebral vascular accident) IDDM (insulin dependent diabetes mellitus) Sleep apnea Chronic renal insufficiency Myocardial infarction CHF (congestive heart failure) CAD (coronary artery disease) AAA (abdominal aortic aneurysm) Arrhythmia On anticoagulant therapy Elevated cholesterol HTN (hypertension) History of ischemic cardiomyopathy 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 Surgical History History of laparoscopic cholecystectomy (12/08/22) History of surgery History of surgery History of PTCA Hx of parathyroidectomy Hx of CABG History of hernia repair Hx of gastric bypass Hx of endoscopy History of colonoscopy Family History Father Hx of congenital heart disease Mother Hx of heat stroke Social History Household Members: None Housing: Apartment Are you a primary pharmacy care coordinator to a significant other at home: No Do you presently have visiting 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) Alcohol intake: current Alcohol intake frequency: holidays/special occasions only Patient Tobacco Use Status: Former Tobacco user Quit Date: 1988 Tobacco use type: Cigarette Second Hand Smoke Exposure: No Review of Systems Const All systems reviewed & are unremarkable except as noted in HPI and below ENT Reports Normal hearing present Neuro Reports Normal hearing present and Denies Abnormal speech present Physical Exam Vital Signs: Last Vital Signs Pulse 77 03/21/23 13:08 Resp 14 03/21/23 13:08 BP 128/78 03/21/23 13:08 Pulse Ox 94 03/21/23 13:08 Oxygen Delivery Method Room Air 03/21/23 13:08 BMI result Body Mass Index 32.1 Const General: cooperative, no acute distress, alert and well groomed Orientation/consciousness: patient oriented x3 HEENT Head: Yes normocephalic and Yes atraumatic Ears: hearing grossly normal bilaterally Eyes General: appearance normal, both eyes and all related structures Eyelids: Yes eyelids normal Pupils: Equal, round and reactive pupils present EOM: EOMs intact bilaterally Neck Neck: Yes normal visual inspection and Yes no JVD Resp Effort & Inspection: normal respiratory effort, able to speak in complete sentences and no audible wheezes Cardio Jugular venous distension: no JVD Back/Spine/Pelvis Other: Tenderness of palpation paraspinal spinal region in the entire spine cervical thoracic and lumbar. SLR is negative with foot dorsiflexion. Flexing forward aggravates the pain. Flexing backwards does not change the pain. James test, Gaenslen test, pelvic compression test, pelvic destruction test, positive on the left for left sacroiliitis. Neuro General: patient oriented x3 and moves all extremities Cranial nerves: Yes Equal, round and reactive pupils present and Yes Normal he aring present Cognition (Neuro): normal cognition Speech: No Abnormal speech present Assessment & Plan Assessment & Plan (1) Vertebrogenic low back pain: Code(s): M54.51 - Vertebrogenic low back pain (2) Chronic pain syndrome: Code(s): G89.4 - Chronic pain syndrome (3) Poorly controlled type 2 diabetes mellitus: Code(s): E11.65 - Type 2 diabetes mellitus with hyperglycemia Plan: I the date of the new patient pump refill will remain in 04/22/2023 he will continue to follow up with us if he does experience any discomfort. Plan Intrathecal pump adjustment. THE PATIENT CAME TODAY in the office intrathecal pain pump adjustment. The pump was read the adjustments were made as dictated above. The patient will be instructed to keep his refill appointment as it was prior. Coding Level of Care Code Est Pt Level 3 (15743) Procedure Only Diagnoses Vertebrogenic low back pain M54.51 Chronic pain syndrome G89.4 Poorly controlled type 2 diabetes mellitus E11.65
[2023-03-21 13:08] VITALS: BP 128/78; PULSE 77; RESP 14; O2SAT 94; BMI 32.1
== END 2023-03-21 13:16 | disposition home or self-care (01) ==
LOC: HO.PMC 12:48
PROVIDERS: PCP Student in an Organized Health Care Education/Training Program; Visit Provider Anesthesiology
DX: M54.51 Vertebrogenic low back pain (principal); G89.4 Chronic pain syndrome; E11.65 Type 2 diabetes mellitus with hyperglycemia
CPT/HCPCS: 99214

== ENCOUNTER 2023-03-24 09:18 | Outpatient (AMB) | payer MEDICARE, MEDICAID, SELFPAY ==
--- NOTE | 2023-03-24 09:21 | MHC.OFFVIS ---
Intake Vital Signs 03/24/23 09:31 Height 5 ft 8 in Weight 211 lb BMI 32.1 BP 136/76 Blood Pressure Location Lt brachial Position Sitting Respiration 16 Pulse 76 Pulse Source Pulse Oximeter Pulse Oximetry (%) 96 Oxygen Delivery Method Room Air Intake Visit Reasons: PAIN PUMP ADJUSTMENT Intake Note: Patient comes in for pain pump adjustment. Reports pain 6/10 left sided and 0/10 on right. Allergies grass pollen Allergy (Mild, Verified 03/24/23 09:31) unknown tree and shrub pollen Allergy (Mild, Verified 03/24/23 09:31) itchy eyes, sneeze, runny nose HPI HPI Comments History of Present Illness Details Malik is a very pleasant 72 year old male who presents to the office for yet another intrathecal pain pump adjustment. He reports after increase of the time of the administration of local anesthetic on flexible rate delivery he no longer experiences numbness in the abdomen or urinary retention. He reports excellent pain relief on the right and still continues to endorse pain on the left. He reports some symptoms which could be indicative of the left sacroiliac joint pathology: He reports positive Chantelle finger test on the, positive James test on the left, positive pelvic compression test on the left and positive Stinchfield test on the left. I offered him therapeutic sacroiliac joint injection on the left to try to eliminate the pain on the left. He agreed to go for the procedure. At the same time trying to alleviate his pain I increased 1 of his flexible doses to the 2.1 mg over 1 hour 14 minutes. If this will help his pain I will be able to adjust the other doses so on a long drawn he will be more comfortable. Patient have reported 100% pain relief for 13 hours after ITDDD trial with bupivacaine 2 mg.. intercept procedure L4, L5-S1 which was performed on 12/17/2022. Patient reports good pain relief up to 75% on the right side and he feels worse on the left side. Prior: under observation in my office with multiple pain generators.? He he had implantation of the SCS Nevro on 10/30/2021. He reports moderate improvement of he has pain when spinal cord stimulator is working. He reports good pain relieve while he is at rest. However when he starts to move especially bend forward he reports pain exacerbation. In the past he had twice radiofrequency ablation and it was working ?like a miracle ?according to the patient. But 3rd procedure resulted in no improvement. He had L2-L3 L4 dorsal ramus L5 therapeutic medial branch block with me on 07/27/2022. That injection resulted only in 24 hours of pain improvement. . His pain is mostly axial with radiation into the lateral flanks. He denies radiation of the pain into bilateral lower extremity. He was sent for MRI dictattion of which is as below. I decided to send this MRI disc the patient Dr. Lara who is an expert in vertebra genic pain. The verbal consent from the patient was obtained to send his medical records to Dr. Lara. Meanwhile I took the patient for bupivacaine pain pump trial. He reported 13 hours of 100% pain relieve on 2 mg of bupivacaine injected into the epidural space. After the pain returned he reports that it became more severe than it was before the trial. I believe it is just perception bias of the patient who had significant pain relief and then he had his pain returned. Currently I think he might be a good candidate for bupivacaine pump to alleviate lower back pain however he has multiple medical conditions which resulted in abdominal pain as well as and cervicalgia. I am little bit hesitant to proceed with the implantation of the pump. I will wait until Dr. Lara will report on vertebra genic changes in the patient's MRI. ? He is complaining on cervicalgia cervical pain, he is complaining now on pain with swallowing and odynophagia, continues to complain on pain in the lower back.? Also continues to complain on new pain in the mid back in the projection of the thoracic spine.? In the past he received radiofrequency ablation of medial branches L3 L4-5 bilateral by and after him by me.? He reported excellent pain relieve each time for 2 years.? However repetition of the procedure this time resulted in?no?pain relieve and actually some pain aggravation.? We discussed possibility of treatment of his axial pain with Nevro spinal cord stimulator.? He was approved by psychological evaluation and he had a trial of SCS Nevro by Dr. Schmitt.? He reported 75% pain improvement he wants to proceed with implantation of the Nevro spinal cord stimulator. In the past he had bilateral therapeutic C2-C3 C4 MBB he underwent on 09/02/2020 :? He reports 100% relief from the time he had the procedure performed until today.? This constitutes almost 6 months of the pain relief.? He states ?it was a miracle as he has full range of motion of the neck with almost complete alleviation of his pain.? He reports occasional stiffness in the morning but resolves throughout the day.? He is quite satisfied with the result of the procedure. He also went for radiofrequency ablation C4-C5 C6 bilateral medial branches.? He reports 75% of the pain relief mostly in the lower cervical areas.? He reports that upper cervical areas are not affected by the injection.? He reports that alignment of his neck with round objects to increase the cervical lordosis alleviates his pain temporarily.? He requests me to repeat this procedures well.? However unfortunately we have to wait with this procedure after implantation of Nevro spinal cord stimulator and 8 weeks more because history stratton of the steroids during the RFA actually might compromise healing of the position of the epidural leads in posterior epidural space. 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, lumbar region PVD (peripheral vascular disease) Mood disorder On beta ruddy at home Benign essential tremor CVA (cerebral vascular accident) IDDM (insulin dependent diabetes mellitus) Sleep apnea Chronic renal insufficiency Myocardial infarction CHF (congestive heart failure) CAD (coronary artery disease) AAA (abdominal aortic aneurysm) Arrhythmia On anticoagulant therapy Elevated cholesterol HTN (hypertension) History of ischemic cardiomyopathy 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 Surgical History History of laparoscopic cholecystectomy (12/08/22) History of surgery History of surgery History of PTCA Hx of parathyroidectomy Hx of CABG History of hernia repair Hx of gastric bypass Hx of endoscopy History of colonoscopy Family History Father Hx of congenital heart disease Mother Hx of heat stroke Social History Household Members: None Housing: Apartment Are you a primary human services care specialist to a significant other at home: No Do you presently have 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) Alcohol intake: current Alcohol intake frequency: holidays/special occasions only Patient Tobacco Use Status: Former Tobacco user Quit Date: 1988 Tobacco use type: Cigarette Second Hand Smoke Exposure: No Review of Systems Const All systems reviewed & are unremarkable except as noted in HPI and below ENT Reports Normal hearing present Neuro Reports Normal hearing present and Denies Abnormal speech present Physical Exam Vital Signs: Last Vital Signs Pulse 76 03/24/23 09:31 Resp 16 03/24/23 09:31 BP 136/76 03/24/23 09:31 Pulse Ox 96 03/24/23 09:31 Oxygen Delivery Method Room Air 03/24/23 09:31 BMI result Body Mass Index 32.1 Const General: cooperative, no acute distress, alert and well groomed Orientation/consciousness: patient oriented x3 HEENT Head: Yes normocephalic and Yes atraumatic Ears: hearing grossly normal bilaterally Eyes General: appearance normal, both eyes and all related structures Eyelids: Yes eyelids normal Pupils: Equal, round and reactive pupils present EOM: EOMs intact bilaterally Neck Neck: Yes normal visual inspection and Yes no JVD Resp Effort & Inspection: normal respiratory effort, able to speak in complete sentences and no audible wheezes Cardio Jugular venous distension: no JVD Back/Spine/Pelvis Other: Tenderness of palpation paraspinal spinal region in the entire spine cervical thoracic and lumbar. SLR is negative with foot dorsiflexion. Flexing forward aggravates the pain. Flexing backwards does not change the pain. James test, Gaenslen test, pelvic compression test, pelvic destruction test, positive on the left for left sacroiliitis. Neuro General: patient oriented x3 and moves all extremities Cranial nerves: Yes Equal, round and reactive pupils present and Yes Normal hearing present Cognition (Neuro): normal cognition Speech: No Abnormal speech present Assessment & Plan Assessment & Plan (1) Vertebrogenic low back pain: Code(s): M54.51 - Vertebrogenic low back pain (2) Chronic pain syndrome: Code(s): G89.4 - Chronic pain syndrome (3) Poorly controlled type 2 diabetes mellitus: Code(s): E11.65 - Type 2 diabetes mellitus with hyperglycemia Plan: The date of the pump refill will be 04/18/2023 as it was prior scheduled. The patient will be scheduled for left sacroiliac joint steroid injection. (4) Sacroiliitis: Code(s): M46.1 - Sacroiliitis, not elsewhere classified (5) Chronic left sacroiliac joint pain: Code(s): M53.3 - Sacrococcygeal disorders, not elsewhere classified; G89.29 - Other chronic pain Plan Intrathecal pump adjustment. THE PATIENT CAME TODAY in the office intrathecal pain pump adjustment. The pump was read the adjustments were made as dictated above. The patient still will be able to keep his refill appointment as it was prior. Coding Level of Care Code Est Pt Level 3 (04701) Procedure Only Diagnoses Vertebrogenic low back pain M54.51 Chronic pain syndrome G89.4 Poorly controlled type 2 diabetes mellitus E11.65 Sacroiliitis M46.1 Chronic left sacroiliac joint pain M53.3; G89.29
[2023-03-24 09:31] VITALS: BP 136/76; PULSE 76; RESP 16; O2SAT 96; BMI 32.1
== END 2023-03-24 09:50 | disposition home or self-care (01) ==
LOC: HO.PMC 09:18
PROVIDERS: PCP Student in an Organized Health Care Education/Training Program; Visit Provider Anesthesiology
DX: M54.51 Vertebrogenic low back pain (principal); G89.4 Chronic pain syndrome; E11.65 Type 2 diabetes mellitus with hyperglycemia; M46.1 Sacroiliitis, not elsewhere classified; M53.3 Sacrococcygeal disorders, not elsewhere classified; G89.29 Other chronic pain
CPT/HCPCS: 99214

== ENCOUNTER → 2023-03-24 09:18 | Outpatient (BNVA) | payer MEDICARE, MEDICAID, SELFPAY | PROVIDERS: PCP Student in an Organized Health Care Education/Training Program; Visit Provider Anesthesiology | DX: Z45.1 Encounter for adjustment and management of infusion pump (principal); G89.4 Chronic pain syndrome; M54.51 Vertebrogenic low back pain; M46.1 Sacroiliitis, not elsewhere classified; M53.3 Sacrococcygeal disorders, not elsewhere classified; E11.65 Type 2 diabetes mellitus with hyperglycemia | CPT/HCPCS: 99212 ==

== ENCOUNTER 2023-04-12 15:00 | Outpatient (REF) | payer MEDICARE, MEDICAID, SELFPAY ==
[2023-04-12 17:43] LABS: Alanine Aminotransferase 52 U/L (0-40); Albumin Level 4.4 g/dL (3.5-5.0); Alkaline Phosphatase 131 U/L (39-117); Anion Gap 17 (12-20); Aspartate Amino Transferase 39 U/L (5-37); Bilirubin Direct 0.2 mg/dL (0.0-0.5); Bilirubin Total 0.5 mg/dL (0.0-1.0); Blood Urea Nitrogen 34 mg/dL (9-16); Calcium 9.3 mg/dL (8.4-10.2); Carbon Dioxide 26 mmol/L (22-29); Chloride 102 mmol/L (96-108); Cholesterol 142 mg/dL (<200); Estimated Glomerular Filt Rate > 60; Glucose Random 141 mg/dL (60-115); HDL Cholesterol 58 mg/dL (>40); LDL Cholesterol Calculated 71 mg/dL (<100); Potassium 4.3 mmol/L (3.3-5.1); Sodium 141 mmol/L (135-145); Total Protein 7.5 g/dL (6.5-8.0); Triglycerides 67 mg/dL (<150)
== END 2023-04-12 15:01 | disposition home or self-care (01) ==
LOC: HO.CHCLDS 15:00
PROVIDERS: Visit Provider Student in an Organized Health Care Education/Training Program
DX: E11.65 Type 2 diabetes mellitus with hyperglycemia (principal)
CPT/HCPCS: 36415; 80048; 80061; 80076

== ENCOUNTER 2023-04-13 13:35 | Outpatient (REF) | payer MEDICARE, MEDICAID, SELFPAY ==
[2023-04-13 15:46] LABS: Creatinine Urine 11.63 mg/dL; Microalbumin Urine < 5.0 mg/L
== END 2023-04-13 13:36 | disposition home or self-care (01) ==
LOC: HO.CHCLNP 13:35
PROVIDERS: Visit Provider Student in an Organized Health Care Education/Training Program
DX: E11.65 Type 2 diabetes mellitus with hyperglycemia (principal)
CPT/HCPCS: 82043; 82570

== ENCOUNTER 2023-04-18 11:01 | Outpatient (AMB) | payer MEDICARE, MEDICAID, SELFPAY ==
--- NOTE | 2023-04-18 11:02 | A.OFFVIS_ITS ---
Intake Vital Signs 04/18/23 12:01 Height 5 ft 8 in Weight 200 lb BMI 30.4 BP 134/90 H Blood Pressure Location Lt brachial Position Sitting Respiration 14 Pulse 90 Pulse Source Pulse Oximeter Pulse Oximetry (%) 96 Oxygen Delivery Method Room Air Intake Visit Reasons: ITDD Refill - Confirmed Intake Note: Patient comes in for intrathecal medication refill. Reports right side pain is 4/10 and left side 6/10. Allergies grass pollen Allergy (Mild, Verified 03/24/23 09:31) unknown tree and shrub pollen Allergy (Mild, Verified 03/24/23 09:31) itchy eyes, sneeze, runny nose HPI HPI Comments History of Present Illness Details Malik is a very pleasant 72 year old male who presents to the office for the refill of the intrathecal pain pump. He reported significant pain improvement from intrathecal drug delivery system pain pump. I increase the concentration of the bupivacaine in his pump to 8 milligrams/mL. He is currently on variable does with basal rate of 0.3895 mg a day and 3 on demand administration of the medications step 1 10:00 to 11:44 1 hour 14 minutes he will be receiving 2 0.0994 mg, step to 14:30 to 15:30 1 hour he will be r eceiving 1.0067 mg, and at 19:51 to 20:51 he will be receiving 1 0.8478 mg on the course of 1 hour. The total dose of the daily medication is 5.3434 mg a day. His next appointment for the pump refill is on 06/12/2023. Patient have reported 100% pain relief for 13 hours after ITDDD trial with bupivacaine 2 mg.. intercept procedure L4, L5-S1 which was performed on 12/17/2022. Patient report s good pain relief up to 75% on the right side and he feels worse on the left side. Prior: under observation in my office with multiple pain generators.? He he had implantation of the SCS Nevro on 10/30/2021. He reports moderate improvement of he has pain when spinal cord stimulator is working. He reports good pain relieve while he is at rest. However when he starts to move especially bend forward he reports pain exacerbation. In the past he had twice radiofrequency ablation and it was working ?like a miracle ?according to the patient. But 3rd procedure resulted in no improvement. He had L2-L3 L4 dorsal ramus L5 therapeutic medial branch block with me on 07/27/2022. That injection resulted only in 24 hours of pain improvement. . His pain is mostly axial with radiati on into the lateral flanks. He denies radiation of the pain into bilateral lower extremity. He was sent for MRI dictattion of which is as below. I decided to send this MRI disc the patient Dr. Lara who is an expert in vertebra genic pain. The verbal consent from the patient was obtained to send his medical records to Dr. Lara. Meanwhile I took the patient for bupivacaine pain pump trial. He reported 13 hours of 100% pain relieve on 2 mg of bupivacaine injected into the epidural space. After the pain returned he reports that it became more severe than it was before the trial. I believe it is just perception bias of the patient who had significant pain relief and then he had his pain returned. Currently I think he might be a good candidate for bupivacaine pump to alleviate lower back pain however he has multiple medical conditions which resulted in abdominal pain as well as and cervicalgia. I am little bit hesitant to proceed with the implantation of the pump. I will wait until Dr. Lara will report on vertebra genic changes in the patient's MRI. ? He is complaining on cervicalgia cervical pain, he is complaining now on pain with swallowing and odynophagia, continues to complain on pain in the lower back.? Also continues to complain on new pain in the mid back in the projection of the thoracic spine.? In the past he received radiofrequency ablation of medial branches L3 L4-5 bilateral by and after him by me.? He reported excellent pain relieve each time for 2 years.? However repetition of the procedure this time resulted in?no?pain relieve and actually some pain aggravation.? We discussed possibility of treatment of his axial pain with Nevro spinal cord stimulator.? He was approved by psychological evaluation and he had a trial of SCS Nevro by Dr. Schmitt.? He reported 75% pain improvement he wants to proceed with implantation of the Nevro spinal cord stimulator. In the past he had bilateral therapeutic C2-C3 C4 MBB he underwent on 09/02/2020 :? He reports 100% relief from the time he had the procedure performed until today.? This constitutes almost 6 months of the pain relief.? He states ?it was a miracle as he has full range of motion of the neck with almost complete alleviation of his pain.? He reports occasional stiffness in the morning but resolves throughout the day.? He is quite satisfied with the result of the p rocedure. He also went for radiofrequency ablation C4-C5 C6 bilateral medial branches.? He reports 75% of the pain relief mostly in the lower cervical areas.? He reports that upper cervical areas are not affected by the injection.? He reports that alignment of his neck with round objects to increase the cervical lordosis alleviates his pain temporarily.? He requests me to repeat this procedures w ell.? However unfortunately we have to wait with this procedure after implantation of Nevro spinal cord stimulator and 8 weeks more because history stratton of the steroids during the RFA actually might compromise healing of the position of the epidural leads in posterior epidural space. 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, lumbar region PVD (peripheral vascular disease) Mood disorder On beta ruddy at home Benign essential tremor CVA (cerebral vascular accident) IDDM (insulin dependent diabetes mellitus) Sleep apnea Chronic renal insufficiency Myocardial infarction CHF (congestive heart failure) CAD (coronary artery disease) AAA (abdominal aortic aneurysm) Arrhythmia On anticoagulant therapy Elevated cholesterol HTN (hypertension) History of ischemic cardiomyopathy 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 Surgical History History of laparoscopic cholecystectomy (12/08/22) History of surgery History of surgery History of PTCA Hx of parathyroidectomy Hx of CABG History of hernia repair Hx of gastric bypass Hx of endoscopy History of colonoscopy Family History Father Hx of congenital heart disease Mother Hx of heat stroke Social History Household Members: None Housing: Apartment Are you a primary human services care specialist to a significant other at home: No Do you presently have visiting nurse or other home services: Yes (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) Alcohol intake: current Alcohol intake frequency: holidays/special occasions only Patient Tobacco Use Status: Former Tobacco user Quit Date: 1988 Tobacco use type: Cigarette Second Hand Smoke Exposure: No Review of Systems Const All systems reviewed & are unremarkable except as noted in HPI and below ENT Reports Normal hearing present Neuro Reports Normal hearing present and Denies Abnormal speech present Physical Exam Vital Signs: Last Vital Signs Pulse 90 04/18/23 12:01 Resp 14 04/18/23 12:01 BP 134/90 H 04/18/23 12:01 Pulse Ox 96 04/18/23 12:01 Oxygen Delivery Method Room Air 04/18/23 12:01 BMI result Body Mass Index 30.4 Const General: cooperative, no acute distress, alert and well groomed Orientation/consciousness: patient oriented x3 HEENT Head: Yes normocephalic and Yes atraumatic Ears: hearing grossly normal bilaterally Eyes General: appearance normal, both eyes and all related structures Eyelids: Yes eyelids normal Pupils: Equal, round and reactive pupils present EOM: EOMs intact bilaterally Neck Neck: Yes normal visual inspection and Yes no JVD Resp Effort & Inspection: normal respiratory effort, able to speak in complete sentences and no audible wheezes Cardio Jugular venous distension: no JVD Back/Spine/Pelvis Other: Tenderness of palpation paraspinal spinal region in the entire spine cervical thoracic and lumbar. SLR is negative with foot dorsiflexion. Flexing forward aggravates the pain. Flexing backwards does not change the pain. James test, Gaenslen test, pelvic compression test, pelvic destruction test, positive on the left for left sacroiliitis. Neuro General: patient oriented x3 and moves all extremities Cranial nerves: Yes Equal, round and reactive pupils present and Yes Normal hearing present Cognition (Neuro): normal cognition Speech: No Abnormal speech present Assessment & Plan Assessment & Plan (1) Vertebrogenic low back pain: Code(s): M54.51 - Vertebrogenic low back pain (2) Chronic pain syndrome: Code(s): G89.4 - Chronic pain syndrome (3) Poorly controlled type 2 diabetes mellitus: Code(s): E11.65 - Type 2 diabetes mellitus with hyperglycemia Plan: The date of the pump refill will be 06/12/2023 . (4) Sacroiliitis: Code(s): M46.1 - Sacroiliitis, not elsewhere classified (5) Chronic left sacroiliac joint pain: Code(s): M53.3 - Sacrococcygeal disorders, not elsewhere classified; G89.29 - Other chronic pain Plan Intrathecal pump refill . HE PATIENT CAME TODAY in the office FOR THE CHANGE OF THE MEDICATION IN her PAIN PUMP. The name and date of were verified and informed consent was obtained for the procedure. ?The pump was interrogated and the residual amount of fluid was found to be 3.6 mL. He WAS POSITIONED left lateral decubitus on the bed AND THE AREA OF THE INTRATHECAL PUMP on the right flank WAS PREPPED WITH CHLORAPREP. The fenestrated drape was sterilely applied over the area of the pump. Sterile gloves were worn and of the aspiration system was assembled containing 2 in 22 gauge noncoring needle, the needle was connected to extension tubing which was connected to the 20 cc sterile syringe. The pain pump was palpated under the skin in the patient's right upper flank under the right rib. The needle was inserted through the skin and the central plug of the pain pump and fluid was aspirated. The clear fluid was going into the syringe the total amount of the fluid was 2.5. After that a new batch? of medication was obtained which was containing bupivacaine 8 mg per ml. The admixture was made in two 20 cc syringe prepared by [facility] compounding pharmacy. The syringe was connected to the bacterial filter, and then connected to the extension tubing. After that the medication in the syringe was slowly instilled into the pump with aspirations at 30, 15 and 5 cc lara.? The pump was reprogrammed for the doses of bupivacaine 0.5 mg per 24 hours with flexible administration of the medication: Basal rate 0.3895 mg a day, step 1 10: 30-11: 40 2.0994 mg, step2 14:30 to 15:30 1.0067 mg, step 3 19:51 to 20:51-1.8478 mg per hour. Coding Level of Care Code Est Pt Level 3 (78004) Procedure Only Diagnoses Vertebrogenic low back pain M54.51 Chronic pain syndrome G89.4 Poorly controlled type 2 diabetes mellitus E11.65 Sacroiliitis M46.1 Chronic left sacroiliac joint pain M53.3; G89.29
[2023-04-18 12:01] VITALS: BP 134/90; PULSE 90; RESP 14; O2SAT 96; BMI 30.4
== END 2023-04-18 11:43 | disposition home or self-care (01) ==
PROVIDERS: PCP Student in an Organized Health Care Education/Training Program; Visit Provider Anesthesiology
DX: M54.51 Vertebrogenic low back pain (principal); G89.4 Chronic pain syndrome; E11.65 Type 2 diabetes mellitus with hyperglycemia; M46.1 Sacroiliitis, not elsewhere classified; M53.3 Sacrococcygeal disorders, not elsewhere classified; G89.29 Other chronic pain; Z45.1 Encounter for adjustment and management of infusion pump
CPT/HCPCS: 62370; 99213

== ENCOUNTER → 2023-04-18 11:01 | Outpatient (BNVA) | payer MEDICARE, MEDICAID, SELFPAY | PROVIDERS: PCP Student in an Organized Health Care Education/Training Program; Visit Provider Anesthesiology | DX: Z45.89 Encounter for adjustment and management of other implanted devices (principal); M54.51 Vertebrogenic low back pain; M46.1 Sacroiliitis, not elsewhere classified; M53.3 Sacrococcygeal disorders, not elsewhere classified; G89.29 Other chronic pain; E11.65 Type 2 diabetes mellitus with hyperglycemia | CPT/HCPCS: 62370; 99212 ==

== ENCOUNTER 2023-04-19 06:32 | Outpatient (REF) | payer MEDICARE, MEDICAID, SELFPAY ==
--- NOTE | ~2023-04-19 | FL_ITS ---
EXAMINATION: XR FLUOROSCOPY WITH IMAGES CLINICAL INFORMATION: Sacrococcygeal disorders, not elsewhere classified. COMPARISON: CT pelvis dated 03/25/2023; intraoperative fluoroscopy dated 04/13/2022. TECHNIQUE: Fluoroscopy Supervised By: Dr. Beatriz Garcia. Fluoroscopy Time: 0.3 minutes. Cumulative Dose: 12.0 mGy. DAP: 0.208 mGym2. Images: 3. FINDINGS: The submitted image shows an injection needle and injected contrast in the vicinity of the bilateral sacroiliac joints. Some venous opacification is noted. Aortoiliac stent graft material and a spinal stimulator device are noted. FL/FL guidance in treatment room IMPRESSION: Intraoperative fluoroscopy is provided during bilateral sacroiliac joint pain injections. Please see the patient's Operative Report for full procedural details.
== END 2023-04-19 06:33 | disposition home or self-care (01) ==
LOC: CF 06:32
PROVIDERS: Visit Provider Anesthesiology
DX: M53.3 Sacrococcygeal disorders, not elsewhere classified (principal); M54.51 Vertebrogenic low back pain; E11.65 Type 2 diabetes mellitus with hyperglycemia; M46.1 Sacroiliitis, not elsewhere classified; G89.4 Chronic pain syndrome
CPT/HCPCS: 27096; J2795; J3301; Q9967

== ENCOUNTER 2023-04-19 08:46 | Outpatient (AMB) | payer MEDICARE, MEDICAID, SELFPAY ==
[2023-04-19 09:13] VITALS: BP 130/58; PULSE 84; RESP 14; O2SAT 97; BMI 30.4
--- NOTE | 2023-04-19 09:13 | MHC.OFFVIS ---
Intake Vital Signs 04/19/23 09:13 04/19/23 10:22 Height 5 ft 8 in 5 ft 8 in Weight 200 lb 200 lb BMI 30.4 30.4 BP 130/58 L 140/72 H Blood Pressure Location Lt brachial Rt brachial Position Sitting Sitting Respiration 14 14 Pulse 84 84 Pulse Source Pulse Oximeter Pulse Oximeter Pulse Oximetry (%) 97 98 Oxygen Delivery Method Room Air Room Air Comment Pre-Op Post-Op Intake Visit Reasons: BILATERAL THERAPEUTIC SIJ INJECTION Allergies grass pollen Allergy (Mild, Verified 04/19/23 09:14) unknown tree and shrub pollen Allergy (Mild, Verified 04/19/23 09:14) itchy eyes, sneeze, runny nose PFSH Medical History Rheumatic fever Cardiac arrest Disc degeneration, 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, lumbar region PVD (peripheral vascular disease) Mood disorder On beta ruddy at home Benign essential tremor CVA (cerebral vascular accident) IDDM (insulin dependent diabetes mellitus) Sleep apnea Chronic renal insufficiency Myocardial infarction CHF (congestive heart failure) CAD (coronary artery disease) AAA (abdominal aortic aneurysm) Arrhythmia On anticoagulant therapy Elevated cholesterol HTN (hypertension) History of ischemic cardiomyopathy 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 Surgical History History of laparoscopic cholecystectomy (12/08/22) History of surgery History of surgery History of PTCA Hx of parathyroidectomy Hx of CABG History of hernia repair Hx of gastric bypass Hx of endoscopy History of colonoscopy Family History Father Hx of congenital heart disease Mother Hx of heat stroke Social History Household Members: None Housing: Apartment Are you a primary behavioral health care coordinator to a significant other at home: No Do you presently have visiting nurse or other home services: 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) Alcohol intake: current Alcohol intake frequency: holidays/special occasions only Patient Tobacco Use Status: Former Tobacco user Quit Date: 1988 Tobacco use type: Cigarette Second Hand Smoke Exposure: No Physical Exam Vital Signs: Last Vital Signs Pulse 84 04/19/23 10:22 Resp 14 04/19/23 10:22 BP 140/72 H 04/19/23 10:22 Pulse Ox 98 04/19/23 10:22 Oxygen Delivery Method Room Air 04/19/23 10:22 BMI result Body Mass Index 30.4 Assessment & Plan Assessment & Plan (1) Vertebrogenic low back pain: Code(s): M54.51 - Vertebrogenic low back pain (2) Chronic pain syndrome: Code(s): G89.4 - Chronic pain syndrome (3) Poorly controlled type 2 diabetes mellitus: Code(s): E11.65 - Type 2 diabetes mellitus with hyperglycemia (4) Sacroiliitis: Code(s): M46.1 - Sacroiliitis, not elsewhere classified Plan: Bilateral therapeutic sacroiliac joint injection Informed consent was explained thoroughly to the patient. All questions about benefits and risks for the procedure were answered. Patient came to the operating room and was positioned prone on the operating table with the pillow under the pelvis. Time out was performed delineating name and of the patient, allergies and the nature of the procedure. The lower back and buttocks of the patient were prepped with ChloraPrep prepped and draped with sterile utility towels. C-arm was brought over the operating field and sq picture of patient's pelvis was demonstrated on the screen. For the bilateral joints tilting C-arm contralateral to the site of the joint the most posterior portion of the joints was superimposed with anterior silhouette of the joint. Skin was injected in the projection of the joint slightly medial to the location of the joint with 25 gauge 1/2 inch needle using local lidocaine 2% .After that 22 gauge 3 and 1/2 inch needle was driven to the joints in tunnel vision fashion. When needle entered the joint capsule injection of the contrast was performed demonstrating intra-articular and minimally periarticular spread of the contrast. After that 4 cc. of ropivacaine 0.5% mixed with kenalog 20 mg was injected into the joint. Upon completion of the injections the needle was removed Sterile Band-Aid was applied. Upon completion of the injection patient was taken outside of the operating room to the recovery room where recovered uneventfully. (5) Chronic left sacroiliac joint pain: Code(s): M53.3 - Sacrococcygeal disorders, not elsewhere classified; G89.29 - Other chronic pain Plan p2 14:30 to 15:30 1.0067 mg, step 3 19:51 to 20:51-1.8478 mg per hour. Orders: Orders FL guidance in treatment room 04/19/23 G89.29 - Other chronic pain, M53.3 - Sacrococcygeal disorders, not elsewhere classified Coding Level of Care Code Procedure Only Diagnoses Vertebrogenic low back pain M54.51 Chronic pain syndrome G89.4 Poorly controlled type 2 diabetes mellitus E11.65 Sacroiliitis M46.1 Chronic left sacroiliac joint pain M53.3; G89.29
[2023-04-19 10:22] VITALS: BP 140/72; PULSE 84; RESP 14; O2SAT 98; BMI 30.4
== END 2023-04-19 10:35 | disposition home or self-care (01) ==
LOC: HO.PMCPRC 08:46
PROVIDERS: PCP Student in an Organized Health Care Education/Training Program; Visit Provider Anesthesiology
DX: M46.1 Sacroiliitis, not elsewhere classified (principal); M53.3 Sacrococcygeal disorders, not elsewhere classified
CPT/HCPCS: 27096

== ENCOUNTER 2023-04-27 18:11 | Emergency (ER) | payer MEDICARE, MEDICAID, SELFPAY ==
--- NOTE | ~2023-04-27 | CT_ITS ---
EXAMINATION: CT CHEST WITH CONTRAST CLINICAL INFORMATION: Fall COMPARISON: None available. TECHNIQUE: Multidetector volumetric CT imaging of the chest was obtained after the administration of 85 mL of Omnipaque 350 intravenous contrast without immediate adverse reactions. Axial MIP volume rendering provided. Sagittal and coronal reformatted images were obtained. This CT examination was performed using dose optimization techniques as appropriate, variously including the following: *Automated exposure control *Adjustment of mA and/or kV according to patient size (this includes techniques or standardized protocols for targeted exams where dose is matched to indication/reason for exam; i.e. extremities or head) *Use of iterative reconstruction technique DLP: 384 mGy-cm FINDINGS: LUNGS: Small calcified pulmonary nodules largest measuring 3 mm probably representing calcified granulomas. Increased interstitial markings at the lung bases, question dependent atelectasis versus mild interstitial lung disease. Lungs are otherwise clear. MEDIASTINUM: Post-CABG changes. Slightly enlarged heart. No pericardial effusion. Normal caliber thoracic aorta. No enlarged hilar or mediastinal lymph nodes. PLEURA: There is no pleural effusion. No pneumothorax. No pleural mass or thickening. AXILLA: No lymphadenopathy. Small fatty right chest wall mass suggestive of a lipoma. OSSEOUS STRUCTURES: Median sternotomy. Spinal stimulator the midthoracic spinal canal. Left shoulder replacement. Degenerative changes of the spine. CT/CT chest w IV con IMPRESSION: No acute posttraumatic findings. Fleischner guidelines were followed.
--- NOTE | ~2023-04-27 | CT_ITS ---
EXAMINATION: CT ABDOMEN AND PELVIS WITH CONTRAST CLINICAL INFORMATION: Fall COMPARISON: Previous CT of the abdomen and pelvis most recent July 2022 TECHNIQUE: Multidetector volumetric images were obtained from the superior aspect of the liver through the pubic symphysis following administration 85 mL of Omnipaque 350 intravenous contrast. Sagittal and coronal reformatted images were obtained on the technologist's workstation. Oral contrast: Yes This CT examination was performed using dose optimization techniques as appropriate, variously including the following: *Automated exposure control *Adjustment of mA and/or kV according to patient size (this includes techniques or standardized protocols for targeted exams where dose is matched to indication/reason for exam; i.e. extremities or head) *Use of iterative reconstruction technique DLP: 775 mGy-cm FINDINGS: LIVER, GALLBLADDER, AND BILIARY TREE: The liver is normal in size, shape, and attenuation. No focal hepatic lesion or biliary ductal dilatation is present. The gallbladder has been removed. PANCREAS: Unremarkable. SPLEEN: Unremarkable. ADRENAL GLANDS: Unremarkable. KIDNEYS AND URETERS: The kidneys are normal in size, shape, and attenuation. No hydronephrosis, hydroureter, or calculi seen. Small bilateral renal cysts. No imaging follow-up recommended. No perinephric stranding. BLADDER: Unremarkable. GASTROINTESTINAL TRACT: Small duodenal diverticulum. The small and large bowel are otherwise unremarkable. The appendix is unremarkable. Gastric sleeve. No free air or ascites. ABDOMINAL WALL: No significant hernia is appreciated. LYMPH NODES: Stable peritoneal nodule or lymph node node anterior to the distal stomach measuring 1.2 cm axial image 19 VASCULAR: Aortobiiliac stent graft. Abdominal aortic aneurysm not appreciably changed in size measuring 4.3 x 5.8 cm. Left common iliac artery aneurysm not appreciably changed size measuring 2.6 x 3 cm. PELVIC VISCERA: Unremarkable. OSSEOUS STRUCTURES: Spinal stimulator with battery in the right lower back. There is also a battery in the right lateral abdominal wall. Mild appearing L1 body pressure fracture unchanged. Fracture. CT/CT abdomen pelvis w IV con IMPRESSION: No acute posttraumatic findings. No change from previous exam. Fleischner guidelines were followed.
--- NOTE | ~2023-04-27 | CT_ITS ---
EXAMINATION: CT HEAD WITHOUT CONTRAST CLINICAL INFORMATION: Fall COMPARISON: CT head from 02/01/2023 TECHNIQUE: Contiguous axial imaging was performed from the skull base to vertex without intravenous administration of contrast. This CT examination was performed using dose optimization techniques as appropriate, variously including the following: *Automated exposure control *Adjustment of mA and/or kV according to patient size (this includes techniques or standardized protocols for targeted exams where dose is matched to indication/reason for exam; i.e. extremities or head) *Use of iterative reconstruction technique DLP: 689 mGy-cm FINDINGS: There is no evidence of acute intracranial hemorrhage or territorial infarction. Chronic encephalomalacia of the left posterior parietal lobe. Stable CSF collection anterior left temporal lobe potentially representing an arachnoid cyst. Chronic white matter small vessel ischemic changes. No abnormal mass effect or midline shift is seen. Flowers to white matter differentiation is well preserved. No extra-axial fluid collections are identified. The ventricles are normal in size. There is no abnormal attenuation within the brain parenchyma. The osseous structures and soft tissues are normal. Mucosal polyp versus thickening of the bilateral maxillary sinuses. The mastoid air cells and visualized portions of the paranasal sinuses are well aerated. Atherosclerotic calcifications. CT/CT cervical spine wo IV con IMPRESSION: 1. No acute intracranial pathology. 2. Chronic encephalomalacia of the left posterior parietal lobe. 3. Stable CSF collection anterior left temporal lobe potentially representing an arachnoid cyst. 4. Chronic white matter small vessel ischemic changes. EXAMINATION: Noncontrast CT scan of the cervical spine. INDICATION: Fall COMPARISON: None. TECHNIQUE: Helical, multidetector axial images were obtained from the occiput to the upper thorax. Coronal and sagittal reformats of the cervical spine were provided for interpretation. DLP: 586 mGy-cm FINDINGS: No acute fractures or dislocations of the cervical spine are seen. Straightening of normal cervical curvature which may be secondary to patient positioning versus muscle spasm. Grade 1 anterolisthesis of C3 on C4. Schmorl's node along the inferior endplate of C4. Sclerotic focus involving the C5 vertebral body potentially representing a bone island. Multilevel degenerative changes. Anatomic alignment and positioning of the vertebral bodies and posterior elements is noted. The atlantoaxial joint and craniovertebral articulations are normal without evidence of subluxation. There is no prevertebral soft tissue swelling. Partially visualized sternotomy wires and mediastinal surgical clips. Visualized portions of the thyroid are unremarkable. Visualized portions of the lungs are unremarkable. IMPRESSION: 1. No acute visible fracture or dislocation. 2. Straightening of normal cervical curvature which may be secondary to patient positioning versus muscle spasm. 3. Grade 1 anterolisthesis of C3 on C4. 4. Schmorl's node along the inferior endplate of C4. 5. Sclerotic focus involving the C5 vertebral body potentially representing a bone island. 6. Multilevel degenerative changes.
[2023-04-27 18:28] VITALS: BP 156/90; PULSE 80; O2SAT 98; BMI 32.5
[2023-04-27 19:00] LABS: MANUAL DIFF FLAG NO
[2023-04-27 19:02] LABS: Basophils Percent Auto 0.3 % (0-2); Eosinophils Percent Auto 0.3 % (0-4); Imm Gran Abs Auto 0.03 X10*3/uL (0.00-0.03); Imm Gran Pct Auto 0.3 % (0.0-0.4); Lymphocytes Absolute Auto 2.3 X10*3/uL (1.2-4.9); Lymphocytes Percent Auto 25.6 % (20-40); Mean Corpuscular HGB Conc 31.8 g/dl (31.0-36.0); Mean Corpuscular Hemoglobin 25.5 pg (27.0-33.0); Mean Platelet Volume 10.3 fL (9.4-12.4); Monocytes Absolute Auto 0.7 X10*3/uL (0.1-1.2); Monocytes Percent Auto 8.2 % (2-11); Neutrophils Absolute Auto 5.9 x10*3/uL (2.0-8.3); Neutrophils Percent Auto 65.3 % (45-73); Platelet Count 176 X10*3/uL (160-400); Red Cell Distribution Width 17.9 % (11.0-16.0)
[2023-04-27 19:10] LABS: INTERNATIONAL NORM RATIO 1.3 (0.9-1.1)
[2023-04-27 19:15] VITALS: BP 143/85; PULSE 78; O2SAT 97
[2023-04-27 19:16] LABS: Alanine Aminotransferase 66 U/L (0-40); Albumin Level 4.1 g/dL (3.5-5.0); Alkaline Phosphatase 131 U/L (39-117); Anion Gap 12 (12-20); Aspartate Amino Transferase 36 U/L (5-37); Bilirubin Total 0.4 mg/dL (0.0-1.0); Blood Urea Nitrogen 27 mg/dL (9-16); Carbon Dioxide 28 mmol/L (22-29); Chloride 101 mmol/L (96-108); Creatinine Clr Calc Pharmacy 64.7; Estimated Glomerular Filt Rate 60; Glucose Random 132 mg/dL (60-115); Magnesium 2.3 mg/dL (1.6-2.6); Potassium 4.9 mmol/L (3.3-5.1); Sodium 136 mmol/L (135-145); Total Protein 6.7 g/dL (6.5-8.0)
--- NOTE | 2023-04-27 19:38 | ED.GENADULT ---
HPI - General Adult General Chief complaint: Fall Stated complaint: fell in shower,pain in kidney area,-loc Time Seen by Provider: 04/27/23 18:16 History of Present Illness HPI narrative: 72 y/o M patient; PMH chronic pain with implantable intrathecal drug delivery device (bupivicaine), T2DM, NAFLD, DDD, PVD, mood disorder, CHF, atrial fibrillation on Xarelto; presents from home with report of fall at 11am this morning while in the shower. He denies head strike or LOC. He reports significant right-sided abdominal pain especially with deep breathing. The patient states this was his second fall, he initially fell yesterday as well striking his face on the mirror lip but not falling to the ground. He denies: nausea/vomiting, diarrhea, chest pain, shortness of breath, lower back pain. Related Data Home Medications Medication Instructions Recorded Confirmed aspirin 81 mg tablet,delayed 81 mg PO DAILY 04/02/20 01/28/23 release (Adult Aspirin Regimen) baclofen 20 mg tablet 20 mg PO TID 04/02/20 01/28/23 bupropion HCl 300 mg 24 hr tablet, 300 mg PO QAM 04/02/20 01/28/23 extended release docusate sodium 100 mg capsule 200 mg PO BID 04/02/20 01/28/23 fluticasone propionate 50 1 spray intranasal DAILY 04/02/20 01/28/23 mcg/actuation nasal spray,suspension hydroxyzine HCl 25 mg tablet 25 mg PO BID PRN Anxiety 04/02/20 12/06/22 lisinopril 5 mg tablet 5 mg PO .DAILY@NOON 04/02/20 12/06/22 rivaroxaban 20 mg tablet (Xarelto) 20 mg PO DAILY@1700 04/02/20 01/28/23 rosuvastatin 40 mg tablet 40 mg PO DAILY 04/02/20 01/28/23 tamsulosin 0.4 mg capsule 0.4 mg PO .BID@NOON+BEDTIME 04/02/20 12/06/22 torsemide 20 mg tablet 20 mg PO BEDTIME 04/02/20 12/06/22 clonazepam 0.5 mg tablet 0.5 mg PO TID 05/26/20 01/28/23 nitroglycerin 0.4 mg sublingual 0.4 mg sublingual ONCE PRN Chest 05/26/20 12/06/22 tablet Pain pen needle, diabetic 32 gauge x #50 ea 05/26/20 10/08/22 primidone 250 mg tablet 250 mg PO BID 10/31/20 01/28/23 cetirizine 10 mg tablet 1 tab PO .DAILY@NOON 04/07/21 12/06/22 mirtazapine 7.5 mg tablet 1 tab PO DAILY 04/07/21 01/28/23 isosorbide mononitrate 60 mg 2 tab PO QAM 04/20/21 01/28/23 tablet,extended release 24 hr melatonin 5 mg tablet 2 tab PO DAILY 04/20/21 12/06/22 sucralfate 1 gram tablet 1 g PO BID 09/07/21 01/28/23 eplerenone 25 mg tablet 25 mg PO .DAILY@NOON 08/10/22 12/06/22 famotidine 40 mg tablet 40 mg PO BEDTIME 08/10/22 12/06/22 metoprolol succinate 50 mg 50 mg PO BEDTIME 08/10/22 12/06/22 tablet,extended release 24 hr prazosin 5 mg capsule 5 mg PO DAILY 08/10/22 01/28/23 insulin glargine 100 unit/mL (3 13 unit subcut BEDTIME 10/08/22 12/06/22 mL) subcutaneous pen (Basaglar KwikPen U-100 Insulin) calcium carbonate 600 mg-vitamin 1 tab PO 04/19/23 D3 10 mcg (400 unit) tablet dapagliflozin propanediol 10 mg 10 mg PO DAILY 04/19/23 tablet (Farxiga) finasteride 5 mg tablet 5 mg PO DAILY 04/19/23 flash glucose sensor (FreeStyle #1 ea 04/19/23 Verito 2 Sensor kit) gabapentin 300 mg capsule 300 mg PO DAILY 04/19/23 linaclotide 145 mcg capsule 145 mcg PO DAILY 04/19/23 (Linzess) pilocarpine HCl 5 mg tablet mg PO 04/19/23 sertraline 100 mg tablet mg PO 04/19/23 Previous Rx's Medication Instructions Recorded saliva substitute comb no.10 1 packet mucous membrane QID PRN 04/19/22 (Neutrasal mucosal powder in dry mouth #30 ea packet) ibuprofen 800 mg tablet 800 mg PO Q8H PRN pain #30 tabs 12/08/22 diphenhydramine HCl 25 mg capsule 50 mg (2 x 25 mg) PO Q6H PRN 02/01/23 headache, nausea, vomiting 3 days #30 caps esomeprazole magnesium 40 mg 40 mg PO BID #60 caps 03/07/23 capsule,delayed release Allergies Allergy/AdvReac Type Severity Reaction Status Date / Time grass pollen Allergy Mild unknown Verified 04/19/23 09:14 tree and shrub pollen Allergy Mild itchy Verified 04/19/23 09:14 eyes, sneeze, runny nose Review of Systems Review of Systems: Yes all other systems are reviewed and are negative Neurologic: Denies Sensory deficit (Neuro) [facility] Past Medical History Attestation statement: The following information was validated with the patient. 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, lumbar region PVD (peripheral vascular disease) Mood disorder On beta ruddy at home Benign essential tremor CVA (cerebral vascular accident) IDDM (insulin dependent diabetes mellitus) Sleep apnea Chronic renal insufficiency Myocardial infarction CHF (congestive heart failure) CAD (coronary artery disease) AAA (abdominal aortic aneurysm) Arrhythmia On anticoagulant therapy Elevated cholesterol HTN (hypertension) History of ischemic cardiomyopathy 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 Surgical History History of laparoscopic cholecystectomy (12/08/22) History of surgery History of surgery History of PTCA Hx of parathyroidectomy Hx of CABG History of hernia repair Hx of gastric bypass Hx of endoscopy History of colonoscopy Family History Family History Father Hx of congenital heart disease Mother Hx of heat stroke Social History Social History Household Members: None Housing: Apartment Are you a primary director of primary care to a significant other at home: No Do you presently have visiting nurse or other home services: Yes ([employer] 2 hours per week) Alcohol intake: current Alcohol intake frequency: holidays/special occasions only Patient Tobacco Use Status: Former Tobacco user Quit Date: 1988 Tobacco use type: Cigarette Second Hand Smoke Exposure: No Advance Directives: No Advance Directives Information Provided: No Physical Exam ED Vital Signs: Vital Signs - 24 hr 04/27/23 19:15 Pulse Rate 78 Blood Pressure 143/85 H Pulse Oximetry 97 Oxygen Delivery Method Room Air BMI result Body Mass Index 32.5 Patient is afebrile and hemodynamically stable. Const General: cooperative Orientation/consciousness: patient oriented x3 HENMT Head: Yes atraumatic Eyes Pupils: Equal, round and reactive pupils present EOM: EOMs intact bilaterally Neck Neck: Yes normal visual inspection, Yes full ROM, Yes supple and No tender Chest Chest palpation & inspection: normal inspection of the chest and normal palpation of entire chest wall Resp Effort & Inspection: normal respiratory effort, able to speak in complete sentences, no cough and no respiratory distress Auscultation: clear to auscultation bilaterally Cardio Rate: regular rate Rhythm: regular rhythm Peripheral pulses: Peripheral pulses 2+ throughout GI Other: Right lower posterior tenderness near area of right kidney and implanted pump, small overlying bruising Inspection: Yes normal to inspection, No Abdominal wall edema and No distended Palpation (GI): Soft to palpation, not firm, Tenderness to palpation present (GI), no guarding and not rigid Back/Spine/Pelvis Cervical Spine: cervical ROM normal and No cervical muscular tenderness Thoracic/Lumbar Spine: No thoraco-lumbar ROM normal Neuro General: patient oriented x3, gait normal, moves all extremities and no focal motor deficits Cranial nerves: Yes Equal, round and reactive pupils present Sensory Exam: No Sensory deficit (Neuro) Course Course Course Narrative: Patient is afebrile and hemodynamically stable. Will obtain basic labs and trauma CT scans. Provided pain control with Dilaudid 0.5mg IV. Reevaluation(s) Reevaluation #1: Labs reviewed. No significant abnormalities. UA pending. CT radiology evaluation pending. Reevaluation #2: CT Head and Cervical Spine without acute traumatic changes. CT Chest without acute traumatic changes. CT Abdomen/Pelvis without acute traumatic changes. Plan: Discharge to home with PCP follow up Return precautions given Medications Administered Discontinued Medications Generic Name Dose Route Start Last Admin Trade Name Freq PRN Reason Stop Dose Admin Hydromorphone HCl 0.5 mg 04/27/23 20:05 04/27/23 20:30 Hydromorphone Hcl 0.5 Mg/0.5 Ml Syringe IVPUSH 04/27/23 20:06 0.5 mg ONCE ONE Administration Protocol Iohexol 100 ml 04/27/23 20:54 04/27/23 20:55 Iohexol 350 Mg/Ml 100 Ml Infus..Btl IV 04/27/23 20:55 85 ml ONCE ONE Administration Medical Decision Making Lab Data 04/27/23 18:53 04/27/23 18:53 Labs: Lab Results 04/27/23 04/27/23 Range/Units 18:53 22:20 WBC 9.0 (4.8-10.8) X10*3/uL RBC 5.50 (4.60-5.80) X10*6/uL Hgb 14.0 (14.0-18.0) g/dl Hct 44.0 (42.0-52.0) % MCV 80.0 (80.0-98.0) fL MCH 25.5 L (27.0-33.0) pg MCHC 31.8 (31.0-36.0) g/dl RDW 17.9 H (11.0-16.0) % Plt Count 176 (160-400) X10*3/uL MPV 10.3 (9.4-12.4) fL Immature Gran % (Auto) 0.3 (0.0-0.4) % Neut % (Auto) 65.3 (45-73) % Lymph % (Auto) 25.6 (20-40) % Wake % (Auto) 8.2 (2-11) % Eos % (Auto) 0.3 (0-4) % Baso % (Auto) 0.3 (0-2) % Lymph # (Auto) 2.3 (1.2-4.9) X10*3/uL Wake # (Auto) 0.7 (0.1-1.2) X10*3/uL Eos # (Auto) 0.0 (0.0-0.4) X10*3/uL Baso # (Auto) 0.0 (0.0-0.2) X10*3/uL Abs Immat Gran (auto) 0.03 (0.00-0.03) X10*3/uL Absolute Neuts (auto) 5.9 (2.0-8.3) x10*3/uL Absolute Nucleated RBC 0.000 (0.0-0.012) X10*3/uL Nucleated RBC % (auto) 0.0 (0.0-0.2) /100WBC PT 16.0 H D (11.1-13.3) SEC INR 1.3 H (0.9-1.1) Sodium 136 (135-145) mmol/L Potassium 4.9 (3.3-5.1) mmol/L Chloride 101 (96-108) mmol/L Carbon Dioxide 28 (22-29) mmol/L Anion Gap 12 (12-20) BUN 27 H (9-16) mg/dL Creatinine 1.20 (0.5-1.4) mg/dL Estim Creat Clear Calc 64.7 Estimated GFR 60 POC Glucose 88 (60-115) mg/dL Random Glucose 132 H (60-115) mg/dL Calcium 9.0 (8.4-10.2) mg/dL Magnesium 2.3 (1.6-2.6) mg/dL Total Bilirubin 0.4 (0.0-1.0) mg/dL AST 36 (5-37) U/L ALT 66 H (0-40) U/L Alkaline Phosphatase 131 H (39-117) U/L Total Protein 6.7 (6.5-8.0) g/dL Albumin 4.1 (3.5-5.0) g/dL Lipase 13 (8-78) U/L Radiology Impression Discussion of test interpretation with radiology: I have reviewed the radiologist's reading. Radiologist Impression: EXAMINATION: CT HEAD WITHOUT CONTRAST CLINICAL INFORMATION: Fall COMPARISON: CT head from 02/01/2023 TECHNIQUE: Contiguous axial imaging was performed from the skull base to vertex without intravenous administration of contrast. This CT examination was performed using dose optimization techniques as appropriate, variously including the following: *Automated exposure control *Adjustment of mA and/or kV according to patient size (this includes techniques or standardized protocols for targeted exams where dose is matched to indication/reason for exam; i.e. extremities or head) *Use of iterative reconstruction technique DLP: 689 mGy-cm FINDINGS: There is no evidence of acute intracranial hemorrhage or territorial infarction. Chronic encephalomalacia of the left posterior parietal lobe. Stable CSF collection anterior left temporal lobe potentially representing an arachnoid cyst. Chronic white matter small vessel ischemic changes. No abnormal mass effect or midline shift is seen. Flowers to white matter differentiation is well preserved. No extra-axial fluid collections are identified. The ventricles are normal in size. There is no abnormal attenuation within the brain parenchyma. The osseous structures and soft tissues are normal. Mucosal polyp versus thickening of the bilateral maxillary sinuses. The mastoid air cells and visualized portions of the paranasal sinuses are well aerated. Atherosclerotic calcifications. CT/CT cervical spine wo IV con IMPRESSION: 1. No acute intracranial pathology. 2. Chronic encephalomalacia of the left posterior parietal lobe. 3. Stable CSF collection anterior left temporal lobe potentially representing an arachnoid cyst. 4. Chronic white matter small vessel ischemic changes. EXAMINATION: Noncontrast CT scan of the cervical spine. INDICATION: Fall COMPARISON: None. TECHNIQUE: Helical, multidetector axial images were obtained from the occiput to the upper thorax. Coronal and sagittal reformats of the cervical spine were provided for interpretation. DLP: 586 mGy-cm FINDINGS: No acute fractures or dislocations of the cervical spine are seen. Straightening of normal cervical curvature which may be secondary to patient positioning versus muscle spasm. Grade 1 anterolisthesis of C3 on C4. Schmorl's node along the inferior endplate of C4. Sclerotic focus involving the C5 vertebral body potentially representing a bone island. Multilevel degenerative changes. Anatomic alignment and positioning of the vertebral bodies and posterior elements is noted. The atlantoaxial joint and craniovertebral articulations are normal without evidence of subluxation. There is no prevertebral soft tissue swelling. Partially visualized sternotomy wires and mediastinal surgical clips. Visualized portions of the thyroid are unremarkable. Visualized portions of the lungs are unremarkable. IMPRESSION: 1. No acute visible fracture or dislocation. 2. Straightening of normal cervical curvature which may be secondary to patient positioning versus muscle spasm. 3. Grade 1 anterolisthesis of C3 on C4. 4. Schmorl's node along the inferior endplate of C4. 5. Sclerotic focus involving the C5 vertebral body potentially representing a bone island. 6. Multilevel degenerative changes. EXAMINATION: CT CHEST WITH CONTRAST CLINICAL INFORMATION: Fall COMPARISON: None available. TECHNIQUE: Multidetector volumetric CT imaging of the chest was obtained after the administration of 85 mL of Omnipaque 350 intravenous contrast without immediate adverse reactions. Axial MIP volume rendering provided. Sagittal and coronal reformatted images were obtained. This CT examination was performed using dose optimization techniques as appropriate, variously including the following: *Automated exposure control *Adjustment of mA and/or kV according to patient size (this includes techniques or standardized protocols for targeted exams where dose is matched to indication/reason for exam; i.e. extremities or head) *Use of iterative reconstruction technique DLP: 384 mGy-cm FINDINGS: LUNGS: Small calcified pulmonary nodules largest measuring 3 mm probably representing calcified granulomas. Increased interstitial markings at the lung bases, question dependent atelectasis versus mild interstitial lung disease. Lungs are otherwise clear. MEDIASTINUM: Post-CABG changes. Slightly enlarged heart. No pericardial effusion. Normal caliber thoracic aorta. No enlarged hilar or mediastinal lymph nodes. PLEURA: There is no pleural effusion. No pneumothorax. No pleural mass or thickening. AXILLA: No lymphadenopathy. Small fatty right chest wall mass suggestive of a lipoma. OSSEOUS STRUCTURES: Median sternotomy. Spinal stimulator the midthoracic spinal canal. Left shoulder replacement. Degenerative changes of the spine. CT/CT chest w IV con IMPRESSION: No acute posttraumatic findings. CT ABDOMEN AND PELVIS WITH CONTRAST CLINICAL INFORMATION: Fall COMPARISON: Previous CT of the abdomen and pelvis most recent July 2022 TECHNIQUE: Multidetector volumetric images were obtained from the superior aspect of the liver through the pubic symphysis following administration 85 mL of Omnipaque 350 intravenous contrast. Sagittal and coronal reformatted images were obtained on the technologist's workstation. Oral contrast: Yes This CT examination was performed using dose optimization techniques as appropriate, variously including the following: *Automated exposure control *Adjustment of mA and/or kV according to patient size (this includes techniques or standardized protocols for targeted exams where dose is matched to indication/reason for exam; i.e. extremities or head) *Use of iterative reconstruction technique DLP: 775 mGy-cm FINDINGS: LIVER, GALLBLADDER, AND BILIARY TREE: The liver is normal in size, shape, and attenuation. No focal hepatic lesion or biliary ductal dilatation is present. The gallbladder has been removed. PANCREAS: Unremarkable. SPLEEN: Unremarkable. ADRENAL GLANDS: Unremarkable. KIDNEYS AND URETERS: The kidneys are normal in size, shape, and attenuation. No hydronephrosis, hydroureter, or calculi seen. Small bilateral renal cysts. No imaging follow-up recommended. No perinephric stranding. BLADDER: Unremarkable. GASTROINTESTINAL TRACT: Small duodenal diverticulum. The small and large bowel are otherwise unremarkable. The appendix is unremarkable. Gastric sleeve. No free air or ascites. ABDOMINAL WALL: No significant hernia is appreciated. LYMPH NODES: Stable peritoneal nodule or lymph node node anterior to the distal stomach measuring 1.2 cm axial image 19 VASCULAR: Aortobiiliac stent graft. Abdominal aortic aneurysm not appreciably changed in size measuring 4.3 x 5.8 cm. Left common iliac artery aneurysm not appreciably changed size measuring 2.6 x 3 cm. PELVIC VISCERA: Unremarkable. OSSEOUS STRUCTURES: Spinal stimulator with battery in the right lower back. There is also a battery in the right lateral abdominal wall. Mild appearing L1 body pressure fracture unchanged. Fracture. CT/CT abdomen pelvis w IV con IMPRESSION: No acute posttraumatic findings. No change from previous exam. Discharge Plan Discharge Clinical Impression: Fall Patient Disposition: Home, Self-Care Instructions: Fall Prevention for Older Adults (ED) Additional Instructions: As we discussed, you were seen after a fall. Your labs and CT scans of your head, neck, chest, abdomen/pelvis showed no evidence of trauma. Recommend you follow up with your PCP within the next 1 week for re-evaluation. Return to the emergency department for: Further falls Chest pain Headache that does not improve with pain medication Prescriptions: No Action esomeprazole magnesium 40 mg capsule,delayed release(DR/EC) 40 mg PO BID Qty: 60 4RF cetirizine 10 mg tablet 1 tab PO .DAILY@NOON mirtazapine 7.5 mg tablet 1 tab PO DAILY isosorbide mononitrate 60 mg tablet extended release 24 hr 2 tab PO QAM melatonin 5 mg tablet 2 tab PO DAILY ibuprofen 800 mg tablet 800 mg PO Q8H PRN (Reason: pain) Qty: 30 0RF diphenhydramine HCl 25 mg capsule 50 mg PO Q6H PRN (Reason: headache, nausea, vomiting) 3 Days Qty: 30 0RF aspirin [Adult Aspirin Regimen] 81 mg tablet,delayed release (DR/EC) 81 mg PO DAILY baclofen 20 mg tablet 20 mg PO TID bupropion HCl 300 mg tablet extended release 24 hr 300 mg PO QAM docusate sodium 100 mg capsule 200 mg PO BID fluticasone propionate 50 mcg/actuation spray,suspension 1 spray intranasal DAILY Rx Instructions: administer into each nostril hydroxyzine HCl 25 mg tablet 25 mg PO BID PRN (Reason: Anxiety) lisinopril 5 mg tablet 5 mg PO .DAILY@NOON Xarelto 20 mg tablet 20 mg PO DAILY@1700 Rx Instructions: must administer with evening meal rosuvastatin 40 mg tablet 40 mg PO DAILY tamsulosin 0.4 mg capsule 0.4 mg PO .BID@NOON+BEDTIME torsemide 20 mg tablet 20 mg PO BEDTIME nitroglycerin 0.4 mg tablet, sublingual 0.4 mg sublingual ONCE PRN (Reason: Chest Pain) (DME) pen needle, diabetic 32 gauge x needle See Rx Instructions .ROUTE .MEDSUPPLY Qty: 50 Rx Instructions: As directed clonazepam 0.5 mg tablet 0.5 mg PO TID primidone 250 mg tablet 250 mg PO BID Patient Comments: takes for tremors Neutrasal Powder In Packet 1 packet mucous membrane QID PRN (Reason: dry mouth) Qty: 30 1RF Rx Instructions: mix in 30 mL water; swish 15 mL for 1 min ; spit out/do not swallow; repeat with remaining 15 mL sucralfate 1 gram tablet 1 g PO BID famotidine 40 mg tablet 40 mg PO BEDTIME eplerenone 25 mg tablet 25 mg PO .DAILY@NOON metoprolol succinate 50 mg tablet extended release 24 hr 50 mg PO BEDTIME prazosin 5 mg capsule 5 mg PO DAILY insulin glargine [Basaglar PopeyePen U-100 Insulin] 100 unit/mL (3 mL) insulin pen 13 unit subcut BEDTIME dapagliflozin propanediol [Farxiga] 10 mg tablet 10 mg PO DAILY Linzess 145 mcg capsule 145 mcg PO DAILY finasteride 5 mg tablet 5 mg PO DAILY gabapentin 300 mg capsule 300 mg PO DAILY sertraline 100 mg tablet PO (DME) FreeStyle Verito 2 Sensor Kit See Rx Instructions .ROUTE Q2W Qty: 1 Rx Instructions: As directed pilocarpine HCl 5 mg tablet PO calcium carbonate-vitamin D3 600 mg-10 mcg (400 unit) tablet 1 tab PO
[2023-04-27 20:29] LABS: Lipase 13 U/L (8-78)
[2023-04-27] MEDS: HYDROmorphone HCl 0.5 MG/0.5 ML SYRINGE IVPUSH (20:30)
[2023-04-27] MEDS: iohexoL 350 MG/ML 100 ML INFUS..BTL IV (20:55)
[2023-04-27 22:24] LABS: Glucose, Whole Blood 88 mg/dL (60-115)
[2023-04-27] MEDS: Acetaminophen 325 MG TABLET 975 MG PO (22:58)
[2023-04-27] MEDS: Lidocaine 4 % Patch ADH..PATCH 1 PATCH TRANSDERMA (22:58)
[2023-04-27 23:11] VITALS: BP 156/90; PULSE 80; RESP 20; TEMP 36.9; O2SAT 97
[2023-04-27 23:29] LABS: Appearance Urine Clear; Color Urine Yellow; Glucose Urine UA >=1000 mg/dL (Negative); Leukocyte Esterase Urine Negative (Negative); Nitrite Urine Negative (Negative); PH 5.5 (5.0-9.0); Specific Gravity - Urine >= 1.030 (1.005-1.025); UMIC TRIGGER UACC YES; Urine Blood Negative (Negative); Urine Ketones Negative (Negative); Urine Protein Negative (Neg-Trace)
[2023-04-27 23:51] LABS: Bacteria Urine None Seen (None Seen); Hyaline Casts Urine 0-2 /LPF (0-2); RBC Urine 0-2 /HPF (0-2); Squamous Epithelial Cell Urine 0-2 /HPF (0-2); WBC Urine 0-5 /HPF (0-5)
== END 2023-04-28 00:42 | disposition home or self-care (01) ==
PROVIDERS: Physician Assistant; Emergency Provider Emergency Medicine; PCP Student in an Organized Health Care Education/Training Program
DX: Z04.3 Encounter for examination and observation following other accident (principal); G89.29 Other chronic pain; E11.9 Type 2 diabetes mellitus without complications; I48.91 Unspecified atrial fibrillation; I11.0 Hypertensive heart disease with heart failure; I50.9 Heart failure, unspecified; Z91.81 History of falling; Z79.01 Long term (current) use of anticoagulants; Z79.4 Long term (current) use of insulin; Z97.8 Presence of other specified devices
CPT/HCPCS: 36415; 70450; 71260; 72125; 74177; 80053; 81001; 82947; 83690; 83735; 85025; 85610; 96374; 99284; J1170; Q9967

== ENCOUNTER 2023-04-28 12:57 | Outpatient (AMB) | payer MEDICARE, MEDICAID, SELFPAY ==
[2023-04-28 13:12] VITALS: BP 122/78; PULSE 81; RESP 14; O2SAT 99; BMI 32.5
--- NOTE | 2023-04-28 13:12 | AM.OFFVISNUR ---
Intake Vital Signs 04/28/23 13:12 Height 5 ft 8 in Weight 214 lb BMI 32.5 BP 122/78 Blood Pressure Location Lt brachial Position Sitting Respiration 14 Pulse 81 Pulse Source Pulse Oximeter Pulse Oximetry (%) 99 Oxygen Delivery Method Room Air Intake Visit Reasons: ITDD Pain Pump Adjustment Intake Note: Patient comes in for ITDD pain pump adjustment. Reports pain 0/10. Allergies grass pollen Allergy (Mild, Verified 04/28/23 13:12) unknown tree and shrub pollen Allergy (Mild, Verified 04/28/23 13:12) itchy eyes, sneeze, runny nose Coding
--- NOTE | 2023-04-28 13:38 | MHC.OFFVIS ---
Intake Vital Signs 04/28/23 13:12 04/28/23 13:40 Height 5 ft 8 in Weight 214 lb BMI 32.5 32.5 BP 122/78 Blood Pressure Location Lt brachial Position Sitting Respiration 14 Pulse 81 Pulse Source Pulse Oximeter Pulse Oximetry (%) 99 Oxygen Delivery Method Room Air Intake Visit Reasons: ITDD Pain Pump Adjustment Intake Note: Patient comes in for ITDD pain pump adjustment. Reports pain 0/10. Allergies grass pollen Allergy (Mild, Verified 04/28/23 13:12) unknown tree and shrub pollen Allergy (Mild, Verified 04/28/23 13:12) itchy eyes, sneeze, runny nose HPI HPI Comments History of Present Illness Details Malik is a very pleasant 72 year old male who presents to the office for the reading and adjustment of the intrathecal pain pump. He reported significant pain improvement from intrathecal drug delivery system pain pump. He reported that when he is out and standing and his variable dose is administered to him he feels dizzy and disoriented. It probably sympathetic effect of cephalad spread of the medication. I decided today to change the the doses by administering 1st dose over 2 hours from 6:30 to 8:30 in the morning and it will be 1.5 mg, next dose will be from 14:30 to 15:30 and the dose will be 1 mg over the course of 1 hour, and last dose of the day he will receive at 19:51 to 21:21 with the dose 1.5 mg over the course of 1 hour and 30 minutes. This will allow administration of the medication to be done slower and will allow him to tolerate the administration of the medication is better. I also recommended him at the start of his variable doses to assume horizontal position in bed if he can. Patient have reported 100% pain relief for 13 hours after ITDDD trial with bupivacaine 2 mg.. intercept procedure L4, L5-S1 which was performed on 12/17/2022. Patient reports good pain relief up to 75% on the right side and he feels worse on the left side. Prior: under observation in my office with multiple pain generators.? He he had implantation of the SCS Nevro on 10/30/2021. He reports moderate improvement of he has pain when spinal cord stimulator is working. He reports good pain relieve while he is at rest. However when he starts to move especially bend forward he reports pain exacerbation. In the past he had twice radiofrequency ablation and it was working ?like a miracle ?according to the patient. But 3rd procedure resulted in no improvement. He had L2-L3 L4 dorsal ramus L5 therapeutic medial branch block with me on 07/27/2022. That injection resulted only in 24 hours of pain improvement. . His pain is mostly axial with radiation into the lateral flanks. He denies radiation of the pain into bilateral lower extremity. He was sent for MRI dictattion of which is as below. I decided to send this MRI disc the patient Dr. Lara who is an expert in vertebra genic pain. The verbal consent from the patient was obtained to send his medical records to Dr. Lara. Meanwhile I took the patient for bupivacaine pain pump trial. He reported 13 hours of 100% pain relieve on 2 mg of bupivacaine injected into the epidural space. After the pain returned he reports that it became more severe than it was before the trial. I believe it is just perception bias of the patient who had significant pain relief and then he had his pain returned. Currently I think he might be a good candidate for bupivacaine pump to alleviate lower back pain however he has multiple medical conditions which resulted in abdominal pain as well as and cervicalgia. I am little bit hesitant to proceed with the implantation of the pump. I will wait until Dr. Lara will report on vertebra genic changes in the patient's MRI. ? He is complaining on cervicalgia cervical pain, he is complaining now on pain with swallowing and odynophagia, continues to complain on pain in the lower back.? Also continues to complain on new pain in the mid back in the projection of the thoracic spine.? In the past he received radiofrequency ablation of medial branches L3 L4-5 bilateral by and after him by me.? He reported excellent pain relieve each time for 2 years.? However repetition of the procedure this time resulted in?no?pain relieve and actually some pain aggravation.? We discussed possibility of treatment of his axial pain with Nevro spinal cord stimulator.? He was approved by psychological evaluation and he had a trial of SCS Nevro by Dr. Schmitt.? He reported 75% pain improvement he wants to proceed with implantation of the Nevro spinal cord stimulator. In the past he had bilateral therapeutic C2-C3 C4 MBB he underwent on 09/02/2020 :? He reports 100% relief from the time he had the procedure performed until today.? This constitutes almost 6 months of the pain relief.? He states ?it was a miracle as he has full range of motion of the neck with almost complete alleviation of his pain.? He reports occasional stiffness in the morning but resolves throughout the day.? He is quite satisfied with the result of the procedure. He also went for radiofrequency ablation C4-C5 C6 bilateral medial branches.? He reports 75% of the pain relief mostly in the lower cervical areas.? He reports that upper cervical areas are not affected by the injection.? He reports that alignment of his neck with round objects to increase the cervical lordosis alleviates his pain temporarily.? He requests me to repeat this procedures well.? However unfortunately we have to wait with this procedure after implantation of Nevro spinal cord stimulator and 8 weeks more because history stratton of the steroids during the RFA actually might compromise healing of the position of the epidural leads in posterior epidural space. 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, lumbar region PVD (peripheral vascular disease) Mood disorder On beta ruddy at home Benign essential tremor CVA (cerebral vascular accident) IDDM (insulin dependent diabetes mellitus) Sleep apnea Chronic renal insufficiency Myocardial infarction CHF (congestive heart failure) CAD (coronary artery disease) AAA (abdominal aortic aneurysm) Arrhythmia On anticoagulant therapy Elevated cholesterol HTN (hypertension) History of ischemic cardiomyopathy 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 Surgical History History of laparoscopic cholecystectomy (12/08/22) History of surgery History of surgery History of PTCA Hx of parathyroidectomy Hx of CABG History of hernia repair Hx of gastric bypass Hx of endoscopy History of colonoscopy Family History Father Hx of congenital heart disease Mother Hx of heat stroke Social History Household Members: None Housing: Apartment Are you a primary hearing healthcare practitioner to a significant other at home: No Do you presently have visiting nurse or other home services: Yes ([employer] 2 hours per week) Alcohol intake: current Alcohol intake frequency: holidays/special occasions only Patient Tobacco Use Status: Former Tobacco user Quit Date: 1988 Tobacco use type: Cigarette Second Hand Smoke Exposure: No Review of Systems Const All systems reviewed & are unremarkable except as noted in HPI and below ENT Reports Normal hearing present Neuro Reports Normal hearing present and Denies Abnormal speech present Physical Exam Vital Signs: Last Vital Signs Pulse 81 04/28/23 13:12 Resp 14 04/28/23 13:12 BP 122/78 04/28/23 13:12 Pulse Ox 99 04/28/23 13:12 Oxygen Delivery Method Room Air 04/28/23 13:12 BMI result Body Mass Index 32.5 Const General: cooperative, no acute distress, alert and well groomed Orientation/consciousness: patient oriented x3 HEENT Head: Yes normocephalic and Yes atraumatic Ears: hearing grossly normal bilaterally Eyes General: appearance normal, both eyes and all related structures Eyelids: Yes eyelids normal Pupils: Equal, round and reactive pupils present EOM: EOMs intact bilaterally Neck Neck: Yes normal visual inspection and Yes no JVD Resp Effort & Inspection: normal respiratory effort, able to speak in complete sentences and no audible wheezes Cardio Jugular venous distension: no JVD Back/Spine/Pelvis Other: Tenderness of palpation paraspinal spinal region in the entire spine cervical thoracic and lumbar. SLR is negative with foot dorsiflexion. Flexing forward aggravates the pain. Flexing backwards does not change the pain. James test, Gaenslen test, pelvic compression test, pelvic destruction test, positive on the left for left sacroiliitis. Neuro General: patient oriented x3 and moves all extremities Cranial nerves: Yes Equal, round and reactive pupils present and Yes Normal hearing present Cognition (Neuro): normal cognition Speech: No Abnormal speech present Assessment & Plan Assessment & Plan (1) Vertebrogenic low back pain: Code(s): M54.51 - Vertebrogenic low back pain (2) Chronic pain syndrome: Code(s): G89.4 - Chronic pain syndrome (3) Poorly controlled type 2 diabetes mellitus: Code(s): E11.65 - Type 2 diabetes mellitus with hyperglycemia Plan: The date of the pump refill still will be 06/23/2023 (4) Sacroiliitis: Code(s): M46.1 - Sacroiliitis, not elsewhere classified (5) Chronic left sacroiliac joint pain: Code(s): M53.3 - Sacrococcygeal disorders, not elsewhere classified; G89.29 - Other chronic pain Plan The pump was interrogated today and the doses were changed reprogrammed as follows: ? The pump was reprogrammed for the doses of bupivacaine 0.3895 mg per 24 hours with flexible administration of the medication: Basal rate 0.3895 mg a day, step 1 06:30 to 08:30 1.5020 mg, step2 14:30 to 15:30 1.0067 mg, step 3 19:51 to 20:51-1.4993 mg . Coding Level of Care Code Est Pt Level 3 (57843) Procedure Only Diagnoses Vertebrogenic low back pain M54.51 Chronic pain syndrome G89.4 Poorly controlled type 2 diabetes mellitus E11.65 Sacroiliitis M46.1 Chronic left sacroiliac joint pain M53.3; G89.29
[2023-04-28 13:40] VITALS: BMI 32.5
== END 2023-04-28 13:36 | disposition home or self-care (01) ==
PROVIDERS: PCP Student in an Organized Health Care Education/Training Program; Visit Provider Anesthesiology
DX: M54.51 Vertebrogenic low back pain (principal); G89.4 Chronic pain syndrome; E11.65 Type 2 diabetes mellitus with hyperglycemia; M46.1 Sacroiliitis, not elsewhere classified; M53.3 Sacrococcygeal disorders, not elsewhere classified; G89.29 Other chronic pain; Z45.1 Encounter for adjustment and management of infusion pump
CPT/HCPCS: 62370; 99213

== ENCOUNTER → 2023-04-28 12:57 | Outpatient (BNVA) | payer MEDICARE, MEDICAID, SELFPAY | PROVIDERS: PCP Student in an Organized Health Care Education/Training Program; Visit Provider Anesthesiology | DX: Z45.89 Encounter for adjustment and management of other implanted devices (principal); M54.51 Vertebrogenic low back pain; M46.1 Sacroiliitis, not elsewhere classified; M53.3 Sacrococcygeal disorders, not elsewhere classified; E11.65 Type 2 diabetes mellitus with hyperglycemia; G89.29 Other chronic pain | CPT/HCPCS: 62370; 99212 ==

== ENCOUNTER 2023-05-02 13:19 | Outpatient (REF) | payer MEDICARE, MEDICAID, SELFPAY ==
--- NOTE | ~2023-05-02 | XR_ITS ---
EXAMINATION: XR RIBS, RIGHT CLINICAL INFORMATION: Right side rib pain. COMPARISON: Chest CT of 04/27/2023. Chest radiographs of 08/31/2018. TECHNIQUE: 4 views of the right ribs were obtained. FINDINGS: Redemonstration of post-CABG changes with median sternotomy wires and clips. Degenerative changes on limited views of the thoracic spine. Bones are diffusely demineralized. Spinal stimulator overlies the mid thoracic spine. Stent and surgical clips partially imaged in the upper abdomen. Please note that the most inferior median sternotomy wire is discontinuous/broken. No displaced right rib fracture is appreciated, although visualization of the most inferior ribs is limited due to overlying soft tissues. There is no gross pneumothorax. Mild left basilar linear opacities may represent residual atelectasis/scar. Left shoulder prosthesis minimally imaged. XR/XR ribs RT min 3V w CXR1V IMPRESSION: 1. No displaced right rib fracture is appreciated, although visualization of the most inferior ribs is limited due to overlying soft tissues. 2. Mild left basilar linear opacities may represent residual atelectasis/scar.
== END 2023-05-02 13:20 | disposition home or self-care (01) ==
LOC: HO.HMGCX 13:19
PROVIDERS: PCP Student in an Organized Health Care Education/Training Program; Visit Provider Nurse Practitioner
DX: R10.9 Unspecified abdominal pain (principal); R07.1 Chest pain on breathing
CPT/HCPCS: 71101

== ENCOUNTER 2023-05-09 11:34 | Outpatient (AMB) | payer MEDICARE, MEDICAID, SELFPAY ==
--- NOTE | 2023-05-09 11:38 | A.OFFVIS_ITS ---
Intake Vital Signs 05/09/23 11:45 Height 5 ft 8 in Weight 214 lb BMI 32.5 BP 132/80 Blood Pressure Location Lt brachial Position Sitting Respiration 14 Pulse 84 Pulse Source Pulse Oximeter Pulse Oximetry (%) 96 Oxygen Delivery Method Room Air Intake Visit Reasons: PAIN PUMP ADJUSTMENT Intake Note: Patient comes in for pain pump adjustment. Reports pain 7/10. Allergies grass pollen Allergy (Mild, Verified 05/09/23 11:44) unknown tree and shrub pollen Allergy (Mild, Verified 05/09/23 11:44) itchy eyes, sneeze, runny nose HPI HPI Comments History of Present Illness Details Malik is a very pleasant 72 year old male who presents to the office for the reading and adjustment of the intrathecal pain pump. He reported that his pain level became worse. He requests me to increase the doses of the medication to help his pain. It probably sympathetic effect of cephalad spread of the medication. The changes of the doses are as follows: Continuous dose of bupivacaine remain the same 0.3657 mg a day. Step 16:30 to 08:30 dose increase from 1.5020 mg to 1.8004 mg, step to 14:30 to 15:30 kept the same 1.0067 mg. Last step 19:51 to 14:21 dose increase from 1.4 993 mg to 1.9029 mg. Patient have reported 100% pain relief for 13 hours after ITDDD trial with bupivacaine 2 mg.. intercept procedure L4, L5-S1 which was performed on 12/17/2022. Patient reports good pain relief up to 75% on the right side and he feels worse on the left side. Prior: under observation in my office with multiple pain generators.? He he had implantation of the SCS Nevro on 10/30/2021. He reports moderate improvement of he has pain when spinal cord stimulator is working. He reports good pain relieve while he is at rest. However when he starts to move especially bend forward he reports pain exacerbation. In the past he had twice radiofrequency ablation and it was working ?like a miracle ?according to the patient. But 3rd procedure resulted in no improvement. He had L2-L3 L4 dorsal ramus L5 therapeutic medial branch block with me on 07/27/2022. That injection resulted only in 24 hours of pain improvement. . His pain is mostly axial with radiati on into the lateral flanks. He denies radiation of the pain into bilateral lower extremity. He was sent for MRI dictattion of which is as below. I decided to send this MRI disc the patient Dr. Lara who is an expert in vertebra genic pain. The verbal consent from the patient was obtained to send his medical records to Dr. Lara. Meanwhile I took the patient for bupivacaine pain pump trial. He reported 13 hours of 100% pain relieve on 2 mg of bupivacaine injected into the epidural space. After the pain returned he reports that it became more severe than it was before the trial. I believe it is just perception bias of the patient who had significant pain relief and then he had his pain returned. Currently I think he might be a good candidate for bupivacaine pump to alleviate lower back pain however he has multiple medical conditions which resulted in abdominal pain as well as and cervicalgia. I am little bit hesitant to proceed with the implantation of the pump. I will wait until Dr. Lara will report on vertebra genic changes in the patient's MRI. ? He is complaining on cervicalgia cervical pain, he is complaining now on pain with swallowing and odynophagia, continues to complain on pain in the lower back.? Also continues to complain on new pain in the mid back in the projection of the thoracic spine.? In the past he received radiofrequency ablation of m edial branches L3 L4-5 bilateral by and after him by me.? He reported excellent pain relieve each time for 2 years.? However repetition of the procedure this time resulted in?no?pain relieve and actually some pain aggravation.? We discussed possibility of treatment of his axial pain with Nevro spinal cord stimulator.? He was approved by psychological evaluation and he had a trial of SCS Nevro by Dr. Schmitt.? He reported 75% pain improvement he wants to proceed with implantation of the Nevro spinal cord stimulator. In the past he had bilateral therapeutic C2-C3 C4 MBB he underwent on 09/02/2020 :? He reports 100% relief from the time he had the procedure performed until today.? This constitutes almost 6 months of the pain relief.? He states ?it was a miracle as he has full range of motion of the neck with almost complete alleviation of his pain.? He reports occasional stiffness in the morning but resolves throughout the day.? He is quite satisfied with the result of the procedure. He also went for radiofrequency ablation C4-C5 C6 bilateral medial branches.? He reports 75% of the pain relief mostly in the lower cervical areas.? He reports that upper cervical areas are not affected by the injection.? He reports that alignment of his neck with round objects to increase the cervical lordosis alleviates his pain temporarily.? He requests me to repeat this procedures well.? However unfortunately we have to wait with this procedure after implantation of Nevro spinal cord stimulator and 8 weeks more because history stratton of the steroids during the RFA actually might compromise healing of the position of the epidural leads in posterior epidural space. 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, lumbar region PVD (peripheral vascular disease) Mood disorder On beta ruddy at home Benign essential tremor CVA (cerebral vascular accident) IDDM (insulin dependent diabetes mellitus) Sleep apnea Chronic renal insufficiency Myocardial infarction CHF (congestive heart failure) CAD (coronary artery disease) AAA (abdominal aortic aneurysm) Arrhythmia On anticoagulant therapy Elevated cholesterol HTN (hypertension) History of ischemic cardiomyopathy 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 Surgical History History of laparoscopic cholecystectomy (12/08/22) History of surgery History of surgery History of PTCA Hx of parathyroidectomy Hx of CABG History of hernia repair Hx of gastric bypass Hx of endoscopy History of colonoscopy Family History Father Hx of congenital heart disease Mother Hx of heat stroke Social History Household Members: None Housing: Apartment Are you a primary health care / medical job titles to a significant other at home: No Do you presently have visiting nurse or other home services: Yes ([employer]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) Alcohol intake: current Alcohol intake frequency: holidays/special occasions only Patient Tobacco Use Status: Former Tobacco user Quit Date: 1988 Tobacco use type: Cigarette Second Hand Smoke Exposure: No Review of Systems Const All systems reviewed & are unremarkable except as noted in HPI and below ENT Reports Normal hearing present Neuro Reports Normal hearing present and Denies Abnormal speech present Physical Exam Vital Signs: Last Vital Signs Pulse 84 05/09/23 11:45 Resp 14 05/09/23 11:45 BP 132/80 05/09/23 11:45 Pulse Ox 96 05/09/23 11:45 Oxygen Delivery Method Room Air 05/09/23 11:45 BMI result Body Mass Index 32.5 Const General: cooperative, no acute distress, alert and well groomed Orientation/consciousness: patient oriented x3 HEENT Head: Yes normocephalic and Yes atraumatic Ears: hearing grossly normal bilaterally Eyes General: appearance normal, both eyes and all related structures Eyelids: Yes eyelids normal Pupils: Equal, round and reactive pupils present EOM: EOMs intact bilaterally Neck Neck: Yes normal visual inspection and Yes no JVD Resp Effort & Inspection: normal respiratory effort, able to speak in complete sentences and no audible wheezes Cardio Jugular venous distension: no JVD Back/Spine/Pelvis Other: Tenderness of palpation paraspinal spinal region in the entire spine cervical thoracic and lumbar. SLR is negative with foot dorsiflexion. Flexing forward aggravates the pain. Flexing backwards does not change the pain. James test, Gaenslen test, pelvic compression test, pelvic destruction test, positive on the left for left sacroiliitis. Neuro General: patient oriented x3 and moves all extremities Cranial nerves: Yes Equal, round and reactive pupils present and Yes Normal hearing present Cognition (Neuro): normal cognition Speech: No Abnormal speech present Assessment & Plan Assessment & Plan (1) Vertebrogenic low back pain: Code(s): M54.51 - Vertebrogenic low back pain (2) Chronic pain syndrome: Code(s): G89.4 - Chronic pain syndrome (3) Poorly controlled type 2 diabetes mellitus: Code(s): E11.65 - Type 2 diabetes mellitus with hyperglycemia Plan: The new pump refill will be scheduled on 06/17/2023. (4) Sacroiliitis: Code(s): M46.1 - Sacroiliitis, not elsewhere classified (5) Chronic left sacroiliac joint pain: Code(s): M53.3 - Sacrococcygeal disorders, not elsewhere classified; G89.29 - Other chronic pain Plan The pump was interrogated today and the doses were changed reprogrammed as follows: ? The pump was reprogrammed for the doses of bupivacaine 0.3895 mg per 24 hours with flexible administration of the medication: Basal rate 0.3895 mg a day, step 1 06:30 to 08:30 1.8004 mg, step2 14:30 to 15:30 1.0067 mg, step 3 19:51 to 20:51-1.9020 mg . Coding Level of Care Code Est Pt Level 3 (20207) Procedure Only Diagnoses Vertebrogenic low back pain M54.51 Chronic pain syndrome G89.4 Poorly controlled type 2 diabetes mellitus E11.65 Sacroiliitis M46.1 Chronic left sacroiliac joint pain M53.3; G89.29
[2023-05-09 11:45] VITALS: BP 132/80; PULSE 84; RESP 14; O2SAT 96; BMI 32.5
== END 2023-05-09 11:52 | disposition home or self-care (01) ==
LOC: HO.PMC 11:36
PROVIDERS: PCP Student in an Organized Health Care Education/Training Program; Visit Provider Anesthesiology
DX: M54.51 Vertebrogenic low back pain (principal); G89.4 Chronic pain syndrome; E11.65 Type 2 diabetes mellitus with hyperglycemia; M46.1 Sacroiliitis, not elsewhere classified; Z45.1 Encounter for adjustment and management of infusion pump; M53.3 Sacrococcygeal disorders, not elsewhere classified; G89.29 Other chronic pain
CPT/HCPCS: 62368; 99213

== ENCOUNTER → 2023-05-09 11:36 | Outpatient (BNVA) | payer MEDICARE, MEDICAID, SELFPAY | PROVIDERS: PCP Student in an Organized Health Care Education/Training Program; Visit Provider Anesthesiology | DX: M54.51 Vertebrogenic low back pain (principal); G89.4 Chronic pain syndrome; E11.65 Type 2 diabetes mellitus with hyperglycemia; M46.1 Sacroiliitis, not elsewhere classified; M53.3 Sacrococcygeal disorders, not elsewhere classified | CPT/HCPCS: 62368; 99212 ==

== ENCOUNTER 2023-05-16 10:02 | Outpatient (AMB) | payer MEDICARE, MEDICAID, SELFPAY ==
--- NOTE | 2023-05-16 10:10 | A.OFFVIS_ITS ---
Intake Vital Signs 05/16/23 10:15 Height 5 ft 8 in Weight 214 lb BMI 32.5 BP 138/74 Blood Pressure Location Rt brachial Position Sitting Respiration 16 Pulse 78 Pulse Source Pulse Oximeter Pulse Oximetry (%) 97 Oxygen Delivery Method Room Air Intake Visit Reasons: BILATERAL THERAPEUTIC SIJ INJECTION/04/19/23 Intake Note: Patient comes in for post-op appointment. Reports pain 0/10. Allergies grass pollen Allergy (Mild, Verified 05/16/23 10:15) unknown tree and shrub pollen Allergy (Mild, Verified 05/16/23 10:15) itchy eyes, sneeze, runny nose HPI HPI Comments History of Present Illness Details Malik is a very pleasant 72 year old male who presents to the office for the follow-up after therapeutic bilateral sacroiliac joint injection. He reports that he has no pain at this time. He reports that in combination with the action of the intrathecal pump the only pain he feels is when he flexes his himself forward for prolonged period of time when he makes up his bed. Otherwise he is free of pain. He reports that his posture became better after the injection. Currently he is on intrathecal bupivacaine medication. He has not on opioids chronically and therefore can not suffer from opioid induced constipation. Current setting of the pump: Continuous dose of bupivacaine remain the same 0.3657 mg a day. Step 16:30 to 08:30 dose increase from 1.5020 mg to 1.8004 mg, step to 14:30 to 15:30 kept the same 1.0067 mg. Last step 19:51 to 14:21 dose increase from 1.4 993 mg to 1.9029 mg. Patient have reported 100% pain relief for 13 hours after ITDDD trial with bupivacaine 2 mg.. intercept procedure L4, L5-S1 which was performed on 12/17/2022. Patient reports good pain relief up to 75% on the right side and he feels worse on the left side. Prior: under observation in my office with multiple pain generators.? He he had implantation of the SCS Nevro on 10/30/2021. He reports moderate improvement of he has pain when spinal cord stimulator is working. He reports good pain relieve while he is at rest. However when he starts to move especially bend forward he reports pain exacerbation. In the past he had twice radiofrequency ablation and it was working ?like a miracle ?according to the patient. But 3rd procedure resulted in no improvement. He had L2-L3 L4 dorsal ramus L5 therapeutic medial branch block with me on 07/27/2022. That injection resulted only in 24 hours of pain improvement. . His pain is mostly axial with radiati on into the lateral flanks. He denies radiation of the pain into bilateral lower extremity. He was sent for MRI dictattion of which is as below. I decided to send this MRI disc the patient Dr. Lara who is an expert in vertebra genic pain. The verbal consent from the patient was obtained to send his medical records to Dr. Lara. Meanwhile I took the patient for bupivacaine pain pump trial. He reported 13 hours of 100% pain relieve on 2 mg of bupivacaine injected into the epidural space. After the pain returned he reports that it became more severe than it was before the trial. I believe it is just perception bias of the patient who had significant pain relief and then he had his pain returned. Currently I think he might be a good candidate for bupivacaine pump to alleviate lower back pain however he has multiple medical conditions which resulted in abdominal pain as well as and cervicalgia. I am little bit hesitant to proceed with the implantation of the pump. I will wait until Dr. Lara will report on vertebra genic changes in the patient's MRI. ? He is complaining on cervicalgia cervical pain, he is complaining now on pain with swallowing and odynophagia, continues to complain on pain in the lower back.? Also continues to complain on new pain in the mid back in the projection of the thoracic spine.? In the past he received radiofrequency ablation of medial branches L3 L4-5 bilateral by and after him by me.? He reported excellent pain relieve each time for 2 years.? However repetition of the procedure this time resulted in?no?pain relieve and actually some pain aggravation.? We discussed possibility of treatment of his axial pain with Nevro spinal cord stimulator.? He was approved by psychological evaluation and he had a trial of SCS Nevro by Dr. Schmitt.? He reported 75% pain improvement he wants to proceed with implantation of the Nevro spinal cord stimulator. In the past he had bilateral therapeutic C2-C3 C4 MBB he underwent on 09/02/2020 :? He reports 100% relief from the time he had the procedure performed until today.? This constitutes almost 6 months of the pain relief.? He states ?it was a miracle as he has full range of motion of the neck with almost complete alleviation of his pain.? He reports occasional stiffness in the morning but resolves throughout the day.? He is quite satisfied with the result of the procedure. He also went for radiofrequency ablation C4-C5 C6 bilateral medial branches.? He reports 75% of the pain relief mostly in the lower cervical areas.? He reports that upper cervical areas are not affected by the injection.? He reports that alignment of his neck with round objects to increase the cervical lordosis alleviates his pain temporarily.? He requests me to repeat this procedures well.? However unfortunately we have to wait with this procedure after implantation of Nevro spinal cord stimulator and 8 weeks more because history stratton of the steroids during the RFA actually might compromise healing of the position of the epidural leads in posterior epidural space. 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, lumbar region PVD (peripheral vascular disease) Mood disorder On beta ruddy at home Benign essential tremor CVA (cerebral vascular accident) IDDM (insulin dependent diabetes mellitus) Sleep apnea Chronic renal insufficiency Myocardial infarction CHF (congestive heart failure) CAD (coronary artery disease) AAA (abdominal aortic aneurysm) Arrhythmia On anticoagulant therapy Elevated cholesterol HTN (hypertension) History of ischemic cardiomyopathy 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 Surgical History History of laparoscopic cholecystectomy (12/08/22) History of surgery History of surgery History of PTCA Hx of parathyroidectomy Hx of CABG History of hernia repair Hx of gastric bypass Hx of endoscopy History of colonoscopy Family History Father Hx of congenital heart disease Mother Hx of heat stroke Social History Household Members: None Housing: Apartment Are you a primary team primary care physician to a significant other at home: No Do you presently have visiting nurse 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) Alcohol intake: current Alcohol intake frequency: holidays/special occasions only Patient Tobacco Use Status: Former Tobacco user Quit Date: 1988 Tobacco use type: Cigarette Second Hand Smoke Exposure: No Review of Systems Const All systems reviewed & are unremarkable except as noted in HPI and below ENT Reports Normal hearing present Neuro Reports Normal hearing present and Denies Abnormal speech present Physical Exam Vital Signs: Last Vital Signs Pulse 78 05/16/23 10:15 Resp 16 05/16/23 10:15 BP 138/74 05/16/23 10:15 Pulse Ox 97 05/16/23 10:15 Oxygen Delivery Method Room Air 05/16/23 10:15 BMI result Body Mass Index 32.5 Const General: cooperative, no acute distress, alert and well groomed Orientation/consciousness: patient oriented x3 HEENT Head: Yes normocephalic and Yes atraumatic Ears: hearing grossly normal bilaterally Eyes General: appearance normal, both eyes and all related structures Eyelids: Yes eyelids normal Pupils: Equal, round and reactive pupils present EOM: EOMs intact bilaterally Neck Neck: Yes normal visual inspection and Yes no JVD Resp Effort & Inspection: normal respiratory effort, able to speak in complete sentences and no audible wheezes Cardio Jugular venous distension: no JVD Back/Spine/Pelvis Other: Tenderness of palpation paraspinal spinal region in the entire spine cervical thoracic and lumbar. SLR is negative with foot dorsiflexion. Flexing forward aggravates the pain. Flexing backwards does not change the pain. James test, Gaenslen test, pelvic compression test, pelvic destruction test, positive on the left for left sacroiliitis. Neuro General: patient oriented x3 and moves all extremities Cranial nerves: Yes Equal, round and reactive pupils present and Yes Normal hearing present Cognition (Neuro): normal cognition Speech: No Abnormal speech present Results Reviewed Results Reviewed: MR LUMBAR SPINE WITHOUT CONTRAST MRI of the lumbar spine was obtained using routine sequences without contrast. CORONAL ALIGNMENT: Mild S-shaped thoracolumbar scoliotic curvature noted, slightly convex to the left at L3-L4 and to the right at T12-L1. SAGITTAL ALIGNMENT: Mild retrolisthesis at L2-L3 and trace anterolisthesis at L4-L5 noted. No spondylolysis. LUMBOSACRAL JUNCTION: Normal. There are 5 nxz-cfg-zxaunya lumbar-type vertebral bodies. VERTEBRAL BODIES: There is gapd-lw-elapctep chronic loss of height with mild anterior wedging of the L4 vertebral body. Otherwise, vertebral body heights are well-maintained. DISC SPACES AND ENDPLATES: Wggi-vi-zewoboka disc space height loss at L2-L3 noted with disc desiccation and uzbi-ke-myzvpfeq spondylosis. There is disc desiccation at L3-L4 and L4-L5 as well without significant disc height loss. [place] remodeling along the endplates seen throughout the visualized thoracolumbar spine which is nonspecific. SPINAL CANAL: Spinal stimulator electrodes are seen entering the dorsal canal at the L1 level with associated ferromagnetic artifact ascending from the L1 level up to the lowest thoracic level imaged, being T10-T11. Note that the dorsal canal between T10-T11 and T12-L1 is obscured by artifact. BONE MARROW: No significant marrow-replacing process or bone marrow edema. CONUS MEDULLARIS: Terminates at L2. Morphology and signal is normal. INTRADURAL NERVE ROOTS: Within normal limits. L5-S1: Normal annular contour. Moderate bilateral facet arthrosis noted without significant canal or neural foraminal stenosis. L4-L5: Trace anterolisthesis noted with minor posterolateral disc osteophyte complex noted bilaterally and moderate bilateral facet arthropathy with ligamentum flavum thickening. No significant spinal canal stenosis. Mild foraminal narrowing on the right. L3-L4: Minor annular bulging with utpn-fv-znoedyxu facet arthropathy left more than right and mild ligamentum flavum thickening without significant canal or neural foraminal stenosis. L2-L3: Mild retrolisthesis noted, with posterolateral disc osteophyte complex bilaterally and slight flattening of the dural sac on both sides of the midline with mild ligamentum flavum thickening and facet arthropathy bilaterally. No significant canal or neural foraminal stenosis. L1-L2: No significant disc bulge or herniation. No significant facet arthrosis, canal or neural foraminal stenosis. Ligamentum flavum thickening noted. PARAVERTEBRAL AND INCLUDED EXTRASPINAL SOFT TISSUES: The paravertebral soft tissue structures appear grossly unremarkable. There is evidence of a previous aortobifemoral bypass graft procedure with maximum AP caliber of the infrarenal abdominal aorta of 4.7 cm, which appears stable in size when compared to previous CT abdomen of 08/20/2022. IMPRESSION: 1. Mild S-shaped thoracolumbar scoliotic curvature, with mild retrolisthesis at L2-L3 and trace anterolisthesis at L4-L5. 2. Discogenic degenerative changes most apparent at L2-L3 with associated spondylosis. 3. Multilevel bilateral facet arthropathy and ligamentum flavum thickening with minor disc bulging at L3-L4 and minor posterolateral disc osteophyte complex bilaterally at L4-L5 and L2-L3. No significant spinal canal stenosis. Mild foraminal narrowing on the right at L4-L5 noted without neural impingement. 4. Nqfe-vn-znqnvvus chronic loss of height of the L4 vertebral body. 5. Spinal stimulator electrodes in place as described above. 6. Abdominal aortic and iliac findings as noted above. See previous CT of the abdomen of 08/20/2022. Assessment & Plan Assessment & Plan (1) Vertebrogenic low back pain: Code(s): M54.51 - Vertebrogenic low back pain (2) Chronic pain syndrome: Code(s): G89.4 - Chronic pain syndrome (3) Poorly controlled type 2 diabetes mellitus: Code(s): E11.65 - Type 2 diabetes mellitus with hyperglycemia Plan: The new pump refill will be scheduled on 06/17/2023. (4) Sacroiliitis: Code(s): M46.1 - Sacroiliitis, not elsewhere classified (5) Chronic left sacroiliac joint pain: Code(s): M53.3 - Sacrococcygeal disorders, not elsewhere classified; G89.29 - Other chronic pain Plan Good results of bilateral sacroiliac joint therapeutic injection. Mobility is improved and posterior is improved. Patient reports 0 pain today. The appointment for pump refill scheduled in May. We will reassess the level of the pain at that time. We can repeat sacroiliac joint injections once in 3 to 4 months. Next appointment is for pump refill. Coding Level of Care Code Est Pt Level 3 (55416) Diagnoses Vertebrogenic low back pain M54.51 Chronic pain syndrome G89.4 Poorly controlled type 2 diabetes mellitus E11.65 Sacroiliitis M46.1 Chronic left sacroiliac joint pain M53.3; G89.29
[2023-05-16 10:15] VITALS: BP 138/74; PULSE 78; RESP 16; O2SAT 97; BMI 32.5
== END 2023-05-16 10:22 | disposition home or self-care (01) ==
PROVIDERS: PCP Student in an Organized Health Care Education/Training Program; Visit Provider Anesthesiology
DX: M54.51 Vertebrogenic low back pain (principal); G89.4 Chronic pain syndrome; E11.65 Type 2 diabetes mellitus with hyperglycemia; M46.1 Sacroiliitis, not elsewhere classified; M53.3 Sacrococcygeal disorders, not elsewhere classified; G89.29 Other chronic pain
CPT/HCPCS: 99213

== ENCOUNTER → 2023-05-16 10:02 | Outpatient (BNVA) | payer MEDICARE, MEDICAID, SELFPAY | PROVIDERS: PCP Student in an Organized Health Care Education/Training Program; Visit Provider Anesthesiology | DX: M54.51 Vertebrogenic low back pain (principal); G89.4 Chronic pain syndrome; M46.1 Sacroiliitis, not elsewhere classified; M53.3 Sacrococcygeal disorders, not elsewhere classified | CPT/HCPCS: 99212 ==

== ENCOUNTER 2023-05-25 10:32 | Outpatient (AMB) | payer MEDICARE, MEDICAID, SELFPAY ==
--- NOTE | 2023-05-25 10:37 | MHC.OFFVIS ---
Intake Vital Signs 05/25/23 10:52 Height 5 ft 8 in Weight 214 lb BMI 32.5 BP 102/66 Blood Pressure Location Lt brachial Position Sitting Respiration 16 Pulse 77 Pulse Source Pulse Oximeter Pulse Oximetry (%) 96 Oxygen Delivery Method Room Air Intake Visit Reasons: PAIN PUMP ADJUSTMENT Intake Note: Patient comes in for pain pump adjustment. Reports pain 6.5/10. Allergies grass pollen Allergy (Mild, Verified 05/25/23 10:53) unknown tree and shrub pollen Allergy (Mild, Verified 05/25/23 10:53) itchy eyes, sneeze, runny nose HPI HPI Comments History of Present Illness Details Malik is a very pleasant 72 year old male who presents to the office after therapeutic bilateral sacroiliac joint injection. Now the pain came back and it was less than 3 months since the sacroiliac joint injection which was done on 04/19/2023. He requests me to increase the bupivacaine does in his pain pump. He reports that previous doses do not alleviate his pain. I offered so many different procedures to this patient's so I am not very eager to go for more high tech solutions. I am willing to try sacroiliac joint belt and continue sacroiliac joint injections as needed. I will invite a sales representative health insurance for sacroiliac joint belt manufacture to fit him for the belt. Now I am almost certain that he has sacroiliitis and this is the cause of his pain. This pain is inflammatory and not neuropathic that is why pain pump can not alleviate his suffering.. Currently he is on intrathecal bupivacaine medication. He has not on opioids chronically and therefore can not suffer from opioid induced constipation. Change of the pump doses: Continuous dose of bupivacaine remain the same 0.3657 mg a day. 6:30-8:30 dose increased to 2. mg 2:30-3:30 dose increase to 1.2 mg, the does 19:51 to 21:21 increase to 2.1 mg Patient have reported 100% pain relief for 13 hours after ITDDD trial with bupivacaine 2 mg.. intercept procedure L4, L5-S1 which was performed on 12/17/2022. Patient reports good pain relief up to 75% on the right side and he feels worse on the left side. Prior: under observation in my office with multiple pain generators.? He he had implantation of the SCS Nevro on 10/30/2021. He reports moderate improvement of he has pain when spinal cord stimulator is working. He reports good pain relieve while he is at rest. However when he starts to move especially bend forward he reports pain exacerbation. In the past he had twice radiofrequency ablation and it was working ?like a miracle ?according to the patient. But 3rd procedure resulted in no improvement. He had L2-L3 L4 dorsal ramus L5 therapeutic medial branch block with me on 07/27/2022. That injection resulted only in 24 hours of pain improvement. . His pain is mostly axial with radiation into the lateral flanks. He denies radiation of the pain into bilateral lower extremity. He was sent for MRI dictattion of which is as below. I decided to send this MRI disc the patient Dr. Lara who is an expert in vertebra genic pain. The verbal consent from the patient was obtained to send his medical records to Dr. Lara. Meanwhile I took the patient for bupivacaine pain pump trial. He reported 13 hours of 100% pain relieve on 2 mg of bupivacaine injected into the epidural space. After the pain returned he reports that it became more severe than it was before the trial. I believe it is just perception bias of the patient who had significant pain relief and then he had his pain returned. Currently I think he might be a good candidate for bupivacaine pump to alleviate lower back pain however he has multiple medical conditions which resulted in abdominal pain as well as and cervicalgia. I am little bit hesitant to proceed with the implantation of the pump. I will wait until Dr. Lara will report on vertebra genic changes in the patient's MRI. ? He is complaining on cervicalgia cervical pain, he is complaining now on pain with swallowing and odynophagia, continues to complain on pain in the lower back.? Also continues to complain on new pain in the mid back in the projection of the thoracic spine.? In the past he received radiofrequency ablation of medial branches L3 L4-5 bilateral by and after him by me.? He reported excellent pain relieve each time for 2 years.? However repetition of the procedure this time resulted in?no?pain relieve and actually some pain aggravation.? We discussed possibility of treatment of his axial pain with Nevro spinal cord stimulator.? He was approved by psychological evaluation and he had a trial of SCS Nevro by Dr. Schmitt.? He reported 75% pain improvement he wants to proceed with implantation of the Nevro spinal cord stimulator. In the past he had bilateral therapeutic C2-C3 C4 MBB he underwent on 09/02/2020 :? He reports 100% relief from the time he had the procedure performed until today.? This constitutes almost 6 months of the pain relief.? He states ?it was a miracle as he has full range of motion of the neck with almost complete alleviation of his pain.? He reports occasional stiffness in the morning but resolves throughout the day.? He is quite satisfied with the result of the procedure. He also went for radiofrequency ablation C4-C5 C6 bilateral medial branches.? He reports 75% of the pain relief mostly in the lower cervical areas.? He reports that upper cervical areas are not affected by the injection.? He reports that alignment of his neck with round objects to increase the cervical lordosis alleviates his pain temporarily.? He requests me to repeat this procedures well.? However unfortunately we have to wait with this procedure after implantation of Nevro spinal cord stimulator and 8 weeks more because history stratton of the steroids during the RFA actually might compromise healing of the position of the epidural leads in posterior epidural space. 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, lumbar region PVD (peripheral vascular disease) Mood disorder On beta ruddy at home Benign essential tremor CVA (cerebral vascular accident) IDDM (insulin dependent diabetes mellitus) Sleep apnea Chronic renal insufficiency Myocardial infarction CHF (congestive heart failure) CAD (coronary artery disease) AAA (abdominal aortic aneurysm) Arrhythmia On anticoagulant therapy Elevated cholesterol HTN (hypertension) History of ischemic cardiomyopathy 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 Surgical History History of laparoscopic cholecystectomy (12/08/22) History of surgery History of surgery History of PTCA Hx of parathyroidectomy Hx of CABG History of hernia repair Hx of gastric bypass Hx of endoscopy History of colonoscopy Family History Father Hx of congenital heart disease Mother Hx of heat stroke Social History Household Members: None Housing: Apartment Are you a primary human services care specialist to a significant other at home: No Do you presently have visiting nurse or other home services: Yes ([employer] 2 hours per week) Alcohol intake: current Alcohol intake frequency: holidays/special occasions only Patient Tobacco Use Status: Former Tobacco user Quit Date: 1988 Tobacco use type: Cigarette Second Hand Smoke Exposure: No Review of Systems Const All systems reviewed & are unremarkable except as noted in HPI and below ENT Reports Normal hearing present Neuro Reports Normal hearing present and Denies Abnormal speech present Physical Exam Vital Signs: Last Vital Signs Pulse 77 05/25/23 10:52 Resp 16 05/25/23 10:52 BP 102/66 05/25/23 10:52 Pulse Ox 96 05/25/23 10:52 Oxygen Delivery Method Room Air 05/25/23 10:52 BMI result Body Mass Index 32.5 Const General: cooperative, no acute distress, alert and well groomed Orientation/consciousness: patient oriented x3 HEENT Head: Yes normocephalic and Yes atraumatic Ears: hearing grossly normal bilaterally Eyes General: appearance normal, both eyes and all related structures Eyelids: Yes eyelids normal Pupils: Equal, round and reactive pupils present EOM: EOMs intact bilaterally Neck Neck: Yes normal visual inspection and Yes no JVD Resp Effort & Inspection: normal respiratory effort, able to speak in complete sentences and no audible wheezes Cardio Jugular venous distension: no JVD Back/Spine/Pelvis Other: Tenderness of palpation paraspinal spinal region in the entire spine cervical thoracic and lumbar. SLR is negative with foot dorsiflexion. Flexing forward aggravates the pain. Flexing backwards does not change the pain. James test, Gaenslen test, pelvic compression test, pelvic destruction test, positive on the left for left sacroiliitis. Neuro General: patient oriented x3 and moves all extremities Cranial nerves: Yes Equal, round and reactive pupils present and Yes Normal hearing present Cognition (Neuro): normal cognition Speech: No Abnormal speech present Assessment & Plan Assessment & Plan (1) Vertebrogenic low back pain: Code(s): M54.51 - Vertebrogenic low back pain (2) Chronic pain syndrome: Code(s): G89.4 - Chronic pain syndrome (3) Poorly controlled type 2 diabetes mellitus: Code(s): E11.65 - Type 2 diabetes mellitus with hyperglycemia Plan: The new pump refill day will be more 04/12/2023. We will try to coincided with SI joint belt fitting. (4) Sacroiliitis: Code(s): M46.1 - Sacroiliitis, not elsewhere classified (5) Chronic left sacroiliac joint pain: Code(s): M53.3 - Sacrococcygeal disorders, not elsewhere classified; G89.29 - Other chronic pain Plan Office procedure: Patient was sitting in the chair comfortably when we interrogated his pain pump and adjusted the doses. No complications were observed during the changes of the doses and after those. See the doses as above. The full report is scanned into the patient's chart Coding Level of Care Code Est Pt Level 4 (21792) Procedure Only Diagnoses Vertebrogenic low back pain M54.51 Chronic pain syndrome G89.4 Poorly controlled type 2 diabetes mellitus E11.65 Sacroiliitis M46.1 Chronic left sacroiliac joint pain M53.3; G89.29
[2023-05-25 10:52] VITALS: BP 102/66; PULSE 77; RESP 16; O2SAT 96; BMI 32.5
== END 2023-05-25 11:11 | disposition home or self-care (01) ==
PROVIDERS: PCP Student in an Organized Health Care Education/Training Program; Visit Provider Anesthesiology
DX: M54.51 Vertebrogenic low back pain (principal); G89.4 Chronic pain syndrome; E11.65 Type 2 diabetes mellitus with hyperglycemia; Z45.1 Encounter for adjustment and management of infusion pump; M46.1 Sacroiliitis, not elsewhere classified; M53.3 Sacrococcygeal disorders, not elsewhere classified; G89.29 Other chronic pain
CPT/HCPCS: 62368; 99214

== ENCOUNTER → 2023-05-25 10:33 | Outpatient (BNVA) | payer MEDICARE, MEDICAID, SELFPAY | PROVIDERS: PCP Student in an Organized Health Care Education/Training Program; Visit Provider Anesthesiology | DX: Z45.42 Encounter for adjustment and management of neurostimulator (principal); M53.3 Sacrococcygeal disorders, not elsewhere classified; M46.1 Sacroiliitis, not elsewhere classified; M54.51 Vertebrogenic low back pain; G89.4 Chronic pain syndrome; E11.65 Type 2 diabetes mellitus with hyperglycemia; Z96.82 Presence of neurostimulator | CPT/HCPCS: 62368; 99212 ==

== ENCOUNTER 2023-06-13 11:14 | Outpatient (AMB) | payer MEDICARE, MEDICAID, SELFPAY ==
--- NOTE | 2023-06-13 11:17 | A.OFFVIS_ITS ---
Vital Signs 06/13/23 11:32 Height 5 ft 8 in Weight 214 lb BMI 32.5 BP 130/64 Blood Pressure Location Lt brachial Position Sitting Respiration 16 Pulse 66 Pulse Source Pulse Oximeter Pulse Oximetry (%) 96 Oxygen Delivery Method Room Air Intake Visit Reasons: ITDD REFILL Intake Note: Reports pain 6.5/10. Allergies grass pollen Allergy (Mild, Verified 06/13/23 11:32) unknown tree and shrub pollen Allergy (Mild, Verified 06/13/23 11:32) itchy eyes, sneeze, runny nose HPI Comments Details: Malik is a very pleasant 72 year old male who presents to the office for the fitting of the sacroiliac joint belt. The sacroiliac joint belt fitting de monstrated to the patient. He expressed understanding. He is recommended to wear this for at least few weeks. Sacroiliac joint fusion was discussed briefly today. His bupivacaine is not available today to fill up his pump. Unfortunately we would need to reschedule the refill. Also patient is not very happy about the minaya he has to pay as a co-pay for the bupivacaine infusion. Patient have reported 100% pain relief for 13 hours after ITDDD trial with bupivacaine 2 mg.. intercept procedure L4, L5-S1 which was performed on 12/17/2022. Patient reports good pain relief up to 75% on the right side and he feels worse on the left side. Prior: under observation in my office with multiple pain generators.? He he had implantation of the SCS Nevro on 10/30/2021. He reports moderate improvement of he has pain when spinal cord stimulator is working. He reports good pain relieve while he is at rest. However when he starts to move especially bend forward he reports pain exacerbation. In the past he had twice radiofrequency ablation and it was working ?like a miracle ?according to the patient. But 3rd procedure resulted in no improvement. He had L2-L3 L4 dorsal ramus L5 ther apeutic medial branch block with me on 07/27/2022. That injection resulted only in 24 hours of pain improvement. . His pain is mostly axial with radiation into the lateral flanks. He denies radiation of the pain into bilateral lower extremity. He was sent for MRI dictattion of which is as below. I decided to send this MRI disc the patient Dr. Lara who is an expert in vertebra genic pain. The verbal consent from the patient was obtained to send his medical records to Dr. Lara. Meanwhile I took the patient for bupivacaine pain pump trial. He reported 13 hours of 100% pain relieve on 2 mg of bupivacaine injected into the epidural space. After the pain returned he reports that it became more severe than it was before the trial. I believe it is just perception bias of the patient who had significant pain relief and then he had his pain returned. Currently I think he might be a good candidate for bupivacaine pump to alleviate lower back pain however he has multiple medical conditions which resulted in abdominal pain as well as and cervicalgia. I am little bit hesitant to proceed with the implantation of the pump. I will wait until Dr. Lara will report on vertebra genic changes in the patient's MRI. ? He is complaining on cervicalgia cervical pain, he is complaining now on pain with swallowing and odynophagia, continues to complain on pain in the lower back.? Also continues to complain on new pain in the mid back in the projection of the thoracic spine.? In the past he received radiofrequency ablation of medial branches L3 L4-5 bilateral by and after him by me.? He reported excellent pain relieve each time for 2 years.? However repetition of the procedure this time resulted in?no?pain relieve and actually some pain aggravation.? We discussed possibility of treatment of his axial pain with Nevro spinal cord stimulator.? He was approved by psychological evaluation and he had a trial of SCS Nevro by Dr. Schmitt.? He reported 75% pain improvement he wants to proceed with implantation of the Nevro spinal cord stimulator. In the past he had bilateral therapeutic C2-C3 C4 MBB he underwent on 09/02/2020 :? He reports 100% relief from the time he had the procedure performed until today.? This constitutes almost 6 months of the pain relief.? He states ?it was a miracle as he has full range of motion of the neck with almost complete alleviation of his pain.? He reports occasional stiffness in the morning but resolves throughout the day.? He is quite satisfied with the result of the procedure. He also went for radiofrequency ablation C4-C5 C6 bilateral medial branches.? He reports 75% of the pain relief mostly in the lower cervical areas.? He reports that upper cervical areas are not affected by the injection.? He reports that alignment of his neck with round objects to increase the cervical lordosis alleviates his pain temporarily.? He requests me to repeat this procedures well.? However unfortunately we have to wait with this procedure after implantation of Nevro spinal cord stimulator and 8 weeks more because history stratton of the steroids during the RFA actually might compromise healing of the position of the epidural leads in posterior epidural space. 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, lumbar region PVD (peripheral vascular disease) Mood disorder On beta ruddy at home Benign essential tremor CVA (cerebral vascular accident) IDDM (insulin dependent diabetes mellitus) Sleep apnea Chronic renal insufficiency Myocardial infarction CHF (congestive heart failure) CAD (coronary artery disease) AAA (abdominal aortic aneurysm) Arrhythmia On anticoagulant therapy Elevated cholesterol HTN (hypertension) History of ischemic cardiomyopathy 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 Surgical History History of laparoscopic cholecystectomy (12/08/22) History of surgery History of surgery History of PTCA Hx of parathyroidectomy Hx of CABG History of hernia repair Hx of gastric bypass Hx of endoscopy History of colonoscopy Family History Father Hx of congenital heart disease Mother Hx of heat stroke Social History Household Members: None Housing: Apartment Are you a primary career placement services counselor to a significant other at home: No Do you presently have visiting nurse or other home services: Yes ([employer] 2 hours per week) Alcohol intake: current Alcohol intake frequency: holidays/special occasions only Patient Tobacco Use Status: Former Tobacco user Quit Date: 1988 Tobacco use type: Cigarette Second Hand Smoke Exposure: No Review of Systems Const All systems reviewed & are unremarkable except as noted in HPI and below ENT Reports Normal hearing present Neuro Reports Normal hearing present and Denies Abnormal speech present Physical Exam Vital Signs: Last Vital Signs Pulse 66 06/13/23 11:32 Resp 16 06/13/23 11:32 BP 130/64 06/13/23 11:32 Pulse Ox 96 06/13/23 11:32 Oxygen Delivery Method Room Air 06/13/23 11:32 BMI result Body Mass Index 32.5 Const General: cooperative, no acute distress, alert and well groomed Orientation/consciousness: patient oriented x3 HEENT Head: Yes normocephalic and Yes atraumatic Ears: hearing grossly normal bilaterally Eyes General: appearance normal, both eyes and all related structures Eyelids: Yes eyelids normal Pupils: Equal, round and reactive pupils present EOM: EOMs intact bilaterally Neck Neck: Yes normal visual inspection and Yes no JVD Resp Effort & Inspection: normal respiratory effort, able to speak in complete sentences and no audible wheezes Cardio Jugular venous distension: no JVD Back/Spine/Pelvis Other: Tenderness of palpation paraspinal spinal region in the entire spine cervical thoracic and lumbar. SLR is negative with foot dorsiflexion. Flexing forward aggravates the pain. Flexing backwards does not change the pain. James test, Gaenslen test, pelvic compression test, pelvic destruction test, positive on the left for left sacroiliitis. Neuro General: patient oriented x3 and moves all extremities Cranial nerves: Yes Equal, round and reactive pupils present and Yes Normal hearing present Cognition (Neuro): normal cognition Speech: No Abnormal speech present Assessment & Plan Assessment & Plan (1) Vertebrogenic low back pain: Code(s): M54.51 - Vertebrogenic low back pain Category: Medical (2) Chronic pain syndrome: Code(s): G89.4 - Chronic pain syndrome Category: Medical (3) Poorly controlled type 2 diabetes mellitus: Code(s): E11.65 - Type 2 diabetes mellitus with hyperglycemia Category: Medical Plan: The new pump refill day will be more 04/12/2023. We will try to coincided with SI joint belt fitting. (4) Sacroiliitis: Code(s): M46.1 - Sacroiliitis, not elsewhere classified Category: Medical (5) Chronic left sacroiliac joint pain: Code(s): M53.3 - Sacrococcygeal disorders, not elsewhere classified; G89.29 - Other chronic pain Category: Medical Plan Fitting of the sacroiliac joint belt is performed today. The pump is not refilled because we had not have medicine. The patient will be rescheduled. SI joint belt will be worn for few weeks. If no response- possibility exists to for patient SI joint fusion.
[2023-06-13 11:32] VITALS: BP 130/64; PULSE 66; RESP 16; O2SAT 96; BMI 32.5
== END 2023-06-13 12:54 | disposition home or self-care (01) ==
PROVIDERS: PCP Student in an Organized Health Care Education/Training Program; Visit Provider Anesthesiology
DX: M54.51 Vertebrogenic low back pain (principal); G89.4 Chronic pain syndrome; E11.65 Type 2 diabetes mellitus with hyperglycemia; M46.1 Sacroiliitis, not elsewhere classified; M53.3 Sacrococcygeal disorders, not elsewhere classified; G89.29 Other chronic pain
CPT/HCPCS: 99213

== ENCOUNTER → 2023-06-13 11:14 | Outpatient (BNVA) | payer MEDICARE, MEDICAID, SELFPAY | PROVIDERS: PCP Student in an Organized Health Care Education/Training Program; Visit Provider Anesthesiology | DX: M54.51 Vertebrogenic low back pain (principal); M46.1 Sacroiliitis, not elsewhere classified; M53.3 Sacrococcygeal disorders, not elsewhere classified; E11.65 Type 2 diabetes mellitus with hyperglycemia; G89.4 Chronic pain syndrome | CPT/HCPCS: 99212 ==

== ENCOUNTER 2023-06-15 11:17 | Outpatient (AMB) | payer MEDICARE, MEDICAID, SELFPAY ==
--- NOTE | 2023-06-15 11:19 | MHC.OFFVIS ---
Vital Signs 06/15/23 11:34 Height 5 ft 8 in Weight 214 lb BMI 32.5 BP 138/72 Blood Pressure Location Lt brachial Position Sitting Respiration 16 Pulse 77 Pulse Source Pulse Oximeter Pulse Oximetry (%) 94 Oxygen Delivery Method Room Air Intake Visit Reasons: ITDD REFILL Intake Note: Patient comes in for intrathecal medication refill. Reports pain 6.5/10. 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, lumbar region PVD (peripheral vascular disease) Mood disorder On beta ruddy at home Benign essential tremor CVA (cerebral vascular accident) IDDM (insulin dependent diabetes mellitus) Sleep apnea Chronic renal insufficiency Myocardial infarction CHF (congestive heart failure) CAD (coronary artery disease) AAA (abdominal aortic aneurysm) Arrhythmia On anticoagulant therapy Elevated cholesterol HTN (hypertension) History of ischemic cardiomyopathy 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 Surgical History History of laparoscopic cholecystectomy (12/08/22) History of surgery History of surgery History of PTCA Hx of parathyroidectomy Hx of CABG History of hernia repair Hx of gastric bypass Hx of endoscopy History of colonoscopy Family History Father Hx of congenital heart disease Mother Hx of heat stroke Social History Household Members: None Housing: Apartment Are you a primary childcare center administrator to a significant other at home: No Do you presently have visiting nurse or other home services: Yes ([employer]CH[employer] 2 hours per week) Alcohol intake: current Alcohol intake frequency: holidays/special occasions only Patient Tobacco Use Status: Former Tobacco user Quit Date: 1988 Tobacco use type: Cigarette Second Hand Smoke Exposure: No Physical Exam Vital Signs: Last Vital Signs Pulse 77 06/15/23 11:34 Resp 16 06/15/23 11:34 BP 138/72 06/15/23 11:34 Pulse Ox 94 06/15/23 11:34 Oxygen Delivery Method Room Air 06/15/23 11:34 BMI result Body Mass Index 32.5 Assessment & Plan Assessment & Plan (1) Vertebrogenic low back pain: Code(s): M54.51 - Vertebrogenic low back pain Category: Medical (2) Chronic pain syndrome: Code(s): G89.4 - Chronic pain syndrome Category: Medical (3) Poorly controlled type 2 diabetes mellitus: Code(s): E11.65 - Type 2 diabetes mellitus with hyperglycemia Category: Medical Plan: The date of the pump refill will be 06/12/2023 . (4) Sacroiliitis: Code(s): M46.1 - Sacroiliitis, not elsewhere classified Category: Medical (5) Chronic left sacroiliac joint pain: Code(s): M53.3 - Sacrococcygeal disorders, not elsewhere classified; G89.29 - Other chronic pain Category: Medical Plan Intrathecal pump refill . HE PATIENT CAME TODAY in the office FOR THE CHANGE OF THE MEDICATION IN her PAIN PUMP. The name and date of were verified and informed consent was obtained for the procedure. ?The pump was interrogated and the residual amount of fluid was found to be 1.8 mL. He WAS POSITIONED left lateral decubitus on the bed AND THE AREA OF THE INTRATHECAL PUMP on the right flank WAS PREPPED WITH CHLORAPREP. The fenestrated drape was sterilely applied over the area of the pump. Sterile gloves were worn and of the aspiration system was assembled containing 2 in 22 gauge noncoring needle, the needle was connected to extension tubing which was connected to the 20 cc sterile syringe. The pain pump was palpated under the skin in the patient's right upper flank under the right rib. The needle was inserted through the skin and the central plug of the pain pump and fluid was aspirated. The clear fluid was going into the syringe the total amount of the fluid was 2.0. After that a new batch? of medication was obtained which was containing bupivacaine 8 mg per ml. The admixture was made in two 20 cc syringe prepared by [facility] compounding pharmacy. The syringe was connected to the bacterial filter, and then connected to the extension tubing. After that the medication in the syringe was slowly instilled into the pump with aspirations at 30, 15 and 5 cc gonzales.? The pump was reprogrammed for the doses of bupivacaine 0.5 mg per 24 hours with flexible administration of the medication basal rate bupivacaine 0.3657 mg, step one 6:30 to 08:30 2 hours 1.9991 mg Step 2 14:30 to 15:30 1.2003 mg. Step 3 19:51 to 21:21- 2.1013 mg Coding Level of Care Code Procedure Only Diagnoses Vertebrogenic low back pain M54.51 Chronic pain syndrome G89.4 Poorly controlled type 2 diabetes mellitus E11.65 Sacroiliitis M46.1 Chronic left sacroiliac joint pain M53.3; G89.29
[2023-06-15 11:34] VITALS: BP 138/72; PULSE 77; RESP 16; O2SAT 94; BMI 32.5
== END 2023-06-15 11:47 | disposition home or self-care (01) ==
PROVIDERS: PCP Student in an Organized Health Care Education/Training Program; Visit Provider Anesthesiology
DX: Z45.1 Encounter for adjustment and management of infusion pump (principal); G89.4 Chronic pain syndrome; M54.51 Vertebrogenic low back pain; E11.65 Type 2 diabetes mellitus with hyperglycemia; M46.1 Sacroiliitis, not elsewhere classified; M53.3 Sacrococcygeal disorders, not elsewhere classified; G89.29 Other chronic pain
CPT/HCPCS: 62370

== ENCOUNTER → 2023-06-15 11:17 | Outpatient (BNVA) | payer MEDICARE, MEDICAID, SELFPAY | PROVIDERS: PCP Student in an Organized Health Care Education/Training Program; Visit Provider Anesthesiology | DX: Z45.89 Encounter for adjustment and management of other implanted devices (principal); F11.20 Opioid dependence, uncomplicated; M54.51 Vertebrogenic low back pain; M46.1 Sacroiliitis, not elsewhere classified; M53.3 Sacrococcygeal disorders, not elsewhere classified; E11.65 Type 2 diabetes mellitus with hyperglycemia; G89.29 Other chronic pain | CPT/HCPCS: 62370 ==

== ENCOUNTER 2023-06-28 06:08 | Outpatient (REF) | payer MEDICARE, MEDICAID, SELFPAY ==
--- NOTE | ~2023-06-28 | FL_ITS ---
EXAMINATION: XR FLUOROSCOPY WITH IMAGES CLINICAL INFORMATION: Sacroiliitis. COMPARISON: None available. TECHNIQUE: Fluoroscopy Supervised By: Dr. Chino Gates. Fluoroscopy Time: 0.4 minutes. Cumulative Dose: 6.02 mGy. DAP: 0.104 Gycm2. Images: 4. FINDINGS: Intraoperative fluoroscopy and spot films were performed during a procedure in the OR. [place] are present in both the right and left SI joints. Contrast is seen injected bilaterally surrounding the needle tips. Please see Dr. Chino Gates's report for complete details. FL/FL guidance in treatment room IMPRESSION: Intraoperative fluoroscopy and spot films were obtained. Please see Dr. Chino Gates's report for complete details.
== END 2023-06-28 06:09 | disposition home or self-care (01) ==
LOC: CF 06:08
PROVIDERS: Visit Provider Anesthesiology
DX: M46.1 Sacroiliitis, not elsewhere classified (principal); M53.3 Sacrococcygeal disorders, not elsewhere classified; G89.4 Chronic pain syndrome
CPT/HCPCS: 27096; J2795; Q9967

== ENCOUNTER 2023-06-28 07:57 | Outpatient (AMB) | payer MEDICARE, MEDICAID, SELFPAY ==
--- NOTE | 2023-06-28 08:48 | A.OFFVIS_ITS ---
Vital Signs 06/28/23 08:54 06/28/23 08:55 Height 5 ft 8 in Weight 214 lb BMI 32.5 BP 114/68 120/72 Blood Pressure Location Lt brachial Lt brachial Position Sitting Sitting Respiration 20 18 Pulse 90 88 Pulse Source Pulse Oximeter Pulse Oximeter Pulse Oximetry (%) 96 95 Oxygen Delivery Method Room Air Room Air Comment Pre-Op Post-Op Intake Visit Reasons: BILATERAL DIAGNOSTIC SIJ INJECTIONS 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, lumbar region PVD (peripheral vascular disease) Mood disorder On beta ruddy at home Benign essential tremor CVA (cerebral vascular accident) IDDM (insulin dependent diabetes mellitus) Sleep apnea Chronic renal insufficiency Myocardial infarction CHF (congestive heart failure) CAD (coronary artery disease) AAA (abdominal aortic aneurysm) Arrhythmia On anticoagulant therapy Elevated cholesterol HTN (hypertension) History of ischemic cardiomyopathy 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 Surgical History History of laparoscopic cholecystectomy (12/08/22) History of surgery History of surgery History of PTCA Hx of parathyroidectomy Hx of CABG History of hernia repair Hx of gastric bypass Hx of endoscopy History of colonoscopy Family History Father Hx of congenital heart disease Mother Hx of heat stroke Social History Household Members: None Housing: Apartment Are you a primary toddler caregiver to a significant other at home: No Do you presently have visiting nurse or other home services: Yes ([employer] 2 hours per week) Alcohol intake: current Alcohol intake frequency: holidays/special occasions only Patient Tobacco Use Status: Former Tobacco user Quit Date: 1988 Tobacco use type: Cigarette Second Hand Smoke Exposure: No Physical Exam Vital Signs: Last Vital Signs Pulse 88 06/28/23 08:55 Resp 18 06/28/23 08:55 BP 120/72 06/28/23 08:55 Pulse Ox 95 06/28/23 08:55 Oxygen Delivery Method Room Air 06/28/23 08:55 BMI result Body Mass Index 32.5 Assessment & Plan Assessment & Plan (1) Chronic left sacroiliac joint pain: Code(s): M53.3 - Sacrococcygeal disorders, not elsewhere classified; G89.29 - Other chronic pain Category: Medical (2) Sacroiliitis: Code(s): M46.1 - Sacroiliitis, not elsewhere classified Category: Medical (3) Chronic pain syndrome: Code(s): G89.4 - Chronic pain syndrome Category: Medical Plan Bilateral diagnostic sacroiliac joint injection Informed consent was explained thoroughly to the patient. All questions about benefits and risks for the procedure were answered. Patient came to the operating room and was positioned prone on the operating table with the pillow under the pelvis. Time out was performed delineating name and of the patient, allergies and the nature of the procedure. The lower back and buttocks of the patient were prepped with ChloraPrep prepped and draped with sterile utility towels. C-arm was brought over the operating field and sq picture of patient's pelvis was demonstrated on the screen. For the right joint tilting C-arm contralateral to the site of the joint the most posterior portion of the joints was superimposed with anterior silhouette of the joint. Skin was injected in the projection of the joint slightly medial to the location of the joint with 25 gauge 1/2 inch needle using local lidocaine 2% .After that 22 gauge 3 and 1/2 inch needle was driven to the right joint in tunnel vision fashion. When needle entered the joint capsule injection of the contrast was performed demonstrating intra-articular and minimally periarticular spread of the contrast. After that 4.5cc. of ropivacaine 0.5% was injected into the joint. Upon completion of the injections the needle was removed, and the procedure was performed on the left sacroiliac joint in mirroring fashion. Sterile dressings was applied. Upon completion of the injection patient was taken outside of the operating room to the recovery room where recovered u neventfully. Orders: Orders FL guidance in treatment room Today M46.1 - Sacroiliitis, not elsewhere classified Coding Level of Care Code Procedure Only Diagnoses Chronic left sacroiliac joint pain M53.3; G89.29 Sacroiliitis M46.1 Chronic pain syndrome G89.4
[2023-06-28 08:54] VITALS: BP 114/68; PULSE 90; RESP 20; O2SAT 96; BMI 32.5
[2023-06-28 08:55] VITALS: BP 120/72; PULSE 88; RESP 18; O2SAT 95
== END 2023-06-28 08:50 | disposition home or self-care (01) ==
PROVIDERS: PCP Student in an Organized Health Care Education/Training Program; Visit Provider Anesthesiology
DX: M53.3 Sacrococcygeal disorders, not elsewhere classified (principal); M46.1 Sacroiliitis, not elsewhere classified; G89.4 Chronic pain syndrome
CPT/HCPCS: 27096

== ENCOUNTER 2023-07-04 14:07 | Outpatient (AMB) | payer MEDICARE, MEDICAID, SELFPAY ==
[2023-07-04 14:12] VITALS: BP 144/78; PULSE 86; RESP 18; O2SAT 97; BMI 32.1
--- NOTE | 2023-07-04 14:12 | A.OFFVIS_ITS ---
Vital Signs 07/04/23 14:12 Height 5 ft 8 in Weight 211 lb 6 oz BMI 32.1 BP 144/78 H Blood Pressure Location Lt brachial Position Sitting Respiration 18 Pulse 86 Pulse Source Pulse Oximeter Pulse Oximetry (%) 97 Oxygen Delivery Method Room Air Intake Visit Reasons: BILATERAL DIAGNOSTIC SIJ INJECTIONS Allergies grass pollen Allergy (Mild, Verified 06/15/23 11:36) unknown tree and shrub pollen Allergy (Mild, Verified 06/15/23 11:36) itchy eyes, sneeze, runny nose HPI Comments Details: Malik is in my office after diagnostic sacroiliac joint injection. He reports pain before the procedure 6.5/10. Immediately after procedure he reports pain 0/10. The pain remained 0/10 for the next 3 hours after procedure. Pain after the 3 hours at 4th our was only 1. And at 5th our pain started to come back it became 3 out of 10. Which is still more than 50% pain improvement. Therefore this patient is most likely could be diagnosed as the pain from sacroiliac joint injection. This patient is very unfortunate gentleman who is suffering from multiple pain generators. He received multiple forms of treatment to concur the existing pain generators pain. He tried multiple sessions of physical therapy in the past and he continues from time to time to return to his home exercise program to help his pain. He tried multiple medications including NSAIDs muscle relaxants and opioids. NSAIDs give him severe side effects. He is very much concerned about addictive properties of opioids. He reports muscle relaxants help his pain minimally if any. He in the past was injected with multiple procedures including medial branch blocks, radiofrequency ablations, facet joint injections, and eventually he was not very satisfied with results of this injections. He was implanted with Nevro spinal cord stimulator which he reports helped his pain radiating into the bilateral lower extremities. He also reported axial back pain aggravated with sitting and flexing forward and on the MRI he was discovered with Modic type changes in the lumbar spine. Intraseptal procedure was performed with good results for pain aggravated with prolonged sitting however pain which is lower than the lumbar spine in the projection of his pelvis actually getting worse background of alleviated lumbar spine pain. To treat this condition he was implanted with intrathecal pain pump however the intrathecal pain pump was not very instrumental to alleviate his pain. He still receives intrathecal pain pump bupivacaine only however reports significant and advanced pain in the projection of the bilateral sacroiliac joints. He had MRI of the lumbar spine which did not demonstrate any red flags and he did have abdominal and pelvic CT scan which did not demonstrate in pelvis any abnormalities which could be suspected as the pain generators related to sacroiliac joint, sacral bones or iliac bones. He came today with the results of the sacroiliac joint injection and I offered to him sacroiliac joint fusion bilateral. This is very frail patient. He is suffering from severe tremor on bilateral upper and lower extremities. 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 He is scheduled for the surgery implantation of the special stimulating device into the cranium helped his tremor. The procedure is scheduled in January of this year. I would like to proceed with sacroiliac joint fusion Painteq as the bilateral procedure at once because of the future surgery this patient faces with [place] neurosurgeon. He would need to recover and stay for 10 weeks with minimal mobility after mobilization with fusion painteq and we would like to complete this treatment before he will be ready to go for surgery in [place]. 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, lumbar region PVD (peripheral vascular disease) Mood disorder On beta ruddy at home Benign essential tremor CVA (cerebral vascular accident) IDDM (insulin dependent diabetes mellitus) Sleep apnea Chronic renal insufficiency Myocardial infarction CHF (congestive heart failure) CAD (coronary artery disease) AAA (abdominal aortic aneurysm) Arrhythmia On anticoagulant therapy Elevated cholesterol HTN (hypertension) History of ischemic cardiomyopathy 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 Surgical History History of laparoscopic cholecystectomy (12/08/22) History of surgery History of surgery History of PTCA Hx of parathyroidectomy Hx of CABG History of hernia repair Hx of gastric bypass Hx of endoscopy History of colonoscopy Family History Father Hx of congenital heart disease Mother Hx of heat stroke Social History Household Members: None Housing: Apartment Are you a primary child care center assistant director to a significant other at home: No Do you presently have visiting nurse or other home services: Yes (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) Alcohol intake: current Alcohol intake frequency: holidays/special occasions only Patient Tobacco Use Status: Former Tobacco user Quit Date: 1988 Tobacco use type: Cigarette Second Hand Smoke Exposure: No Review of Systems Const All systems reviewed & are unremarkable except as noted in HPI and below ENT Reports Normal hearing present Neuro Reports Normal hearing present and Denies Abnormal speech present Physical Exam Vital Signs: Last Vital Signs Pulse 86 07/04/23 14:12 Resp 18 07/04/23 14:12 BP 144/78 H 07/04/23 14:12 Pulse Ox 97 07/04/23 14:12 Oxygen Delivery Method Room Air 07/04/23 14:12 BMI result Body Mass Index 32.1 Const General: cooperative, no acute distress, alert and well groomed Orientation/consciousness: patient oriented x3 HEENT Head: Yes normocephalic and Yes atraumatic Ears: hearing grossly normal bilaterally Eyes General: appearance normal, both eyes and all related structures Eyelids: Yes eyelids normal Pupils: Equal, round and reactive pupils present EOM: EOMs intact bilaterally Neck Neck: Yes normal visual inspection and Yes no JVD Resp Effort & Inspection: normal respiratory effort, able to speak in complete sentences and no audible wheezes Cardio Jugular venous distension: no JVD Back/Spine/Pelvis Other: Tenderness of palpation paraspinal spinal region in the entire spine cervical thoracic and lumbar. SLR is negative with foot dorsiflexion. Flexing forward aggravates the pain. Flexing backwards does not change the pain. James test, Gaenslen test, pelvic compression test, pelvic destruction test, positive on the left as well as on the right. Neuro General: patient oriented x3, moves all extremities and Normal light touch and pain sensation Cranial nerves: Yes Equal, round and reactive pupils present and Yes Normal hearing present Cognition (Neuro): normal cognition Speech: No Abnormal speech present Assessment & Plan Assessment & Plan (1) Vertebrogenic low back pain: Code(s): M54.51 - Vertebrogenic low back pain Category: Medical (2) Chronic pain syndrome: Code(s): G89.4 - Chronic pain syndrome Category: Medical (3) Poorly controlled type 2 diabetes mellitus: Code(s): E11.65 - Type 2 diabetes mellitus with hyperglycemia Category: Medical Plan: The new pump refill day will be more 04/12/2023. We will try to coincided with SI joint belt fitting. (4) Sacroiliitis: Code(s): M46.1 - Sacroiliitis, not elsewhere classified Category: Medical (5) Chronic left sacroiliac joint pain: Code(s): M53.3 - Sacrococcygeal disorders, not elsewhere classified; G89.29 - Other chronic pain Category: Medical Plan Sacroiliac joint fusion bilateral will be scheduled for this patient jackie. The patient needs pre authorization by insurance company. Next appointment will be scheduled as needed as well as the appointment for pump refill should be performed Patient Instructions: I here by testify that I spent 30 minutes in conversation with this patient as well as planning his care and organizing this note. Coding Level of Care Code Est Pt Level 4 (17476) Diagnoses Vertebrogenic low back pain M54.51 Chronic pain syndrome G89.4 Poorly controlled type 2 diabetes mellitus E11.65 Sacroiliitis M46.1 Chronic left sacroiliac joint pain M53.3; G89.29
== END 2023-07-04 14:21 | disposition home or self-care (01) ==
PROVIDERS: PCP Student in an Organized Health Care Education/Training Program; Visit Provider Anesthesiology
DX: M54.51 Vertebrogenic low back pain (principal); G89.4 Chronic pain syndrome; E11.65 Type 2 diabetes mellitus with hyperglycemia; M46.1 Sacroiliitis, not elsewhere classified; M53.3 Sacrococcygeal disorders, not elsewhere classified; G89.29 Other chronic pain
CPT/HCPCS: 99214

== ENCOUNTER → 2023-07-04 14:07 | Outpatient (BNVA) | payer MEDICARE, MEDICAID, SELFPAY | PROVIDERS: PCP Student in an Organized Health Care Education/Training Program; Visit Provider Anesthesiology | DX: M54.51 Vertebrogenic low back pain (principal); M46.1 Sacroiliitis, not elsewhere classified; M53.3 Sacrococcygeal disorders, not elsewhere classified; G89.4 Chronic pain syndrome; E11.65 Type 2 diabetes mellitus with hyperglycemia; G89.29 Other chronic pain | CPT/HCPCS: 99212 ==

== ENCOUNTER 2023-07-22 15:31 | Outpatient (REF) | payer MEDICARE, MEDICAID, SELFPAY ==
--- NOTE | ~2023-07-22 | CT_ITS ---
EXAMINATION: CT PELVIS WITHOUT CONTRAST CLINICAL INFORMATION: Sacroiliitis, not elsewhere classified. COMPARISON: CT dated 04/27/2023. TECHNIQUE: Helical scanning was performed with submillimeter collimation through the pelvis. Sagittal and coronal multiplanar 2-D reconstructions were obtained. This CT examination was performed using dose optimization techniques as appropriate, variously including the following: *Automated exposure control *Adjustment of mA and/or kV according to patient size (this includes techniques or standardized protocols for targeted exams where dose is matched to indication/reason for exam; i.e. extremities or head) *Use of iterative reconstruction technique DLP: 779 mGy-cm FINDINGS: There is mild osteoarthritis in the SI joints bilaterally characterized by joint space narrowing, vacuum phenomenon, cortical irregularity, and small marginal osteophytes. Facet arthropathy is present in the lower lumbar spine at both L4-L5 and L5-S1. Mild degenerative disc disease at L4-L5. There is [id number] osteoarthritis in the hips, right greater than left, characterized by nonuniform joint space narrowing, marginal osteophytes, and subchondral cystic change. Mild osteoarthritis in the pubic symphysis. Baclofen pump unit overlies the right lateral abdominal wall. A stimulator unit overlies the right iliac crest in the right paraspinal region. No acute intrapelvic findings. Aortobiiliac graft is partially imaged with a surrounding aneurysm sac measuring up to 4.4 cm in greatest orthogonal dimension. Appendix is normal. Moderate volume of stool in the colon. Mild colonic diverticulosis. No acute intrapelvic findings. No adenopathy. CT/CT bony pelvis IMPRESSION: 1. 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 2. [id number] osteoarthritis in the hips, right greater than left. 3. Facet arthropathy in the lower lumbar spine.
== END 2023-07-22 15:32 | disposition home or self-care (01) ==
LOC: HO.CT 15:31
PROVIDERS: PCP Student in an Organized Health Care Education/Training Program; Visit Provider Anesthesiology
DX: M46.1 Sacroiliitis, not elsewhere classified (principal)
CPT/HCPCS: 72192

== ENCOUNTER 2023-08-03 08:46 | Outpatient (AMB) | payer MEDICARE, MEDICAID, SELFPAY ==
--- NOTE | 2023-08-03 08:51 | A.OFFVIS_ITS ---
Vital Signs 08/03/23 09:38 Height 5 ft 8 in Weight 205 lb BMI 31.2 BP 138/78 Blood Pressure Location Lt brachial Position Sitting Respiration 14 Pulse 65 Pulse Source Pulse Oximeter Pulse Oximetry (%) 95 Oxygen Delivery Method Room Air Intake Visit Reasons: Pain pump refill Intake Note: Patient comes in for intrathecal medication refill. Reports pain 10/10. Allergies grass pollen Allergy (Mild, Verified 08/03/23 09:36) unknown tree and shrub pollen Allergy (Mild, Verified 08/03/23 09:36) itchy eyes, sneeze, runny nose HPI Comments Details: Malik is in my office for the refill of the intrathecal pain pump. Intrathecal pain pump refilled as below. He started to complain on pain in bilateral groins with walking. This may be an onset of the arthritis of bilateral hip joints. I would think about it more detailed after the sacroiliac joint fusion, we will plan bilateral SI joint fusion on the patient on 08/12/2023. I personally examined him and he denies pain in the groin on medial or lateral rotation of the hip in the groin bilaterally. Results of diagnostic sacroiliac joint injection: He reports pain before the procedure 6.5/10. Immediately after procedure he reports pain 0/10. The pain remained 0/10 for the next 3 hours after procedure. Pain after the 3 hours at 4th our was only 1. And at 5th our pain started to come back it became 3 out of 10. Which is still more than 50% pain improvement. Therefore this patient is most likely could be diagnosed as the pain from sacroiliac joint injection. This patient is very unfortunate gentleman who is suffering from multiple pain generators. He received multiple forms of treatment to concur the existing pain generators pain. He tried multiple sessions of physical therapy in the past and he continues from time to time to return to his home exercise program to help his pain. He tried multiple medications including NSAIDs muscle relaxants and opioids. NSAIDs give him severe side effects. He is very much concerned about addictive properties of opioids. He reports muscle relaxants help his pain minimally if any. He in the past was injected with multiple procedures including medial branch blocks, radiofrequency ablations, facet joint injections, and eventually he was not very satisfied with results of this injections. He was implanted with Nevro spinal cord stimulator which he reports helped his pain radiating into the bilateral lower extremities. He also reported axial back pain aggravated with sitting and flexing forward and on the MRI he was discovered with Modic type changes in the lumbar spine. Intraseptal procedure was performed with good results for pain aggravated with prolonged sitting however pain which is lower than the lumbar spine in the projection of his pelvis actually getting worse background of alleviated lumbar spine pain. To treat this condition he was implanted with intrathecal pain pump however the intrathecal pain pump was not very instrumental to alleviate his pain. He still receives intrathecal pain pump bupivacaine only however reports significant and advanced pain in the projection of the bilateral sacroiliac joints. He had MRI of the lumbar spine which did not demonstrate any red flags and he did have abdominal and pelvic CT scan which did not demonstrate in pelvis any abnormalities which could be suspected as the pain generators related to sacroiliac joint, sacral bones or iliac bones. He came today with the results of the sacroiliac joint injection and I offered to him sacroiliac joint fusion bilateral. This is very frail patient. He is suffering from severe tremor on bilateral upper and lower extremities. 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 He is scheduled for the surgery implantation of the special stimulating device into the cranium helped his tremor. The procedure is scheduled in January of this year. I would like to proceed with sacroiliac joint fusion Painteq as the bilateral procedure at once because of the future surgery this patient faces with [place] neurosurgeon. He would need to recover and stay for 10 weeks with minimal mobility after mobilization with fusion painteq and we would like to complete this treatment before he will be ready to go for surgery in [place]. 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, lumbar region PVD (peripheral vascular disease) Mood disorder On beta ruddy at home Benign essential tremor CVA (cerebral vascular accident) IDDM (insulin dependent diabetes mellitus) Sleep apnea Chronic renal insufficiency Myocardial infarction CHF (congestive heart failure) CAD (coronary artery disease) AAA (abdominal aortic aneurysm) Arrhythmia On anticoagulant therapy Elevated cholesterol HTN (hypertension) History of ischemic cardiomyopathy 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 Surgical History History of laparoscopic cholecystectomy (12/08/22) History of surgery History of surgery History of PTCA Hx of parathyroidectomy Hx of CABG History of hernia repair Hx of gastric bypass Hx of endoscopy History of colonoscopy Family History Father Hx of congenital heart disease Mother Hx of heat stroke Social History Household Members: None Housing: Apartment Are you a primary child care to a significant other at home: No Do you presently have visiting nurse or other home services: Yes (CUT OFF [employer] 2 hours per week) Alcohol intake: current Alcohol intake frequency: holidays/special occasions only Patient Tobacco Use Status: Former Tobacco user Tobacco use type: Cigarette Second Hand Smoke Exposure: No Review of Systems Const All systems reviewed & are unremarkable except as noted in HPI and below ENT Reports Normal hearing present Neuro Reports Normal hearing present and Denies Abnormal speech present Physical Exam Vital Signs: Last Vital Signs Pulse 65 08/03/23 09:38 Resp 14 08/03/23 09:38 BP 138/78 08/03/23 09:38 Pulse Ox 95 08/03/23 09:38 Oxygen Delivery Method Room Air 08/03/23 09:38 BMI result Body Mass Index 31.2 Const General: cooperative, no acute distress, alert and well groomed Orientation/consciousness: patient oriented x3 HEENT Head: Yes normocephalic and Yes atraumatic Ears: hearing grossly normal bilaterally Eyes General: appearance normal, both eyes and all related structures Eyelids: Yes eyelids normal Pupils: Equal, round and reactive pupils present EOM: EOMs intact bilaterally Neck Neck: Yes normal visual inspection and Yes no JVD Resp Effort & Inspection: normal respiratory effort, able to speak in complete sentences and no audible wheezes Cardio Jugular venous distension: no JVD Back/Spine/Pelvis Other: Tenderness of palpation paraspinal spinal region in the entire spine cervical thoracic and lumbar. SLR is negative with foot dorsiflexion. Flexing forward aggravates the pain. Flexing backwards does not change the pain. James test, Gaenslen test, pelvic compression test, pelvic destruction test, positive on the left as well as on the right. Neuro General: patient oriented x3, moves all extremities and Normal light touch and pain sensation Cranial nerves: Yes Equal, round and reactive pupils present and Yes Normal hearing present Cognition (Neuro): normal cognition Speech: No Abnormal speech present Assessment & Plan Assessment & Plan (1) Vertebrogenic low back pain: Code(s): M54.51 - Vertebrogenic low back pain Category: Medical (2) Chronic pain syndrome: Code(s): G89.4 - Chronic pain syndrome Category: Medical (3) Poorly controlled type 2 diabetes mellitus: Code(s): E11.65 - Type 2 diabetes mellitus with hyperglycemia Category: Medical Plan: The date of the pump refill will be 06/12/2023 . (4) Sacroiliitis: Code(s): M46.1 - Sacroiliitis, not elsewhere classified Category: Medical (5) Chronic left sacroiliac joint pain: Code(s): M53.3 - Sacrococcygeal disorders, not elsewhere classified; G89.29 - Other chronic pain Category: Medical Plan: I will schedule the patient for SI joint bilateral SI joint stabilization with fusion on 08/12/2023. Plan Intrathecal pump refill . HE PATIENT CAME TODAY in the office FOR THE CHANGE OF THE MEDICATION IN her PAIN PUMP. The name and date of were verified and informed consent was obtained for the procedure. ?The pump was interrogated and the residual amount of fluid was found to be 5.4 mL. He WAS POSITIONED left lateral decubitus on the bed AND THE AREA OF THE INTRATHECAL PUMP on the right flank WAS PREPPED WITH CHLORAPREP. The fenestrated drape was sterilely applied over the area of the pump. Sterile gloves were worn and of the aspiration system was assembled containing 2 in 22 gauge noncoring needle, the needle was connected to extension tubing which was connected to the 20 cc sterile syringe. The pain pump was palpated under the skin in the patient's right upper flank under the right rib. The needle was inserted through the skin and the central plug of the pain pump and fluid was aspirated. The clear fluid was going into the syringe the total amount of the fluid was 6.1. After that a new batch? of medication was obtained which was containing bupivacaine 8 mg per ml. The admixture was made in two 20 cc syringe prepared by [facility] compounding pharmacy. The syringe was connected to the bacterial filter, and then connected to the extension tubing. After that the medication in the syringe was slowly instilled into the pump with aspirations at 30, 15 and 5 cc gonzales.? The pump was reprogrammed for the doses of bupivacaine 0.5 mg per 24 hours with flexible administration of the medication basal rate bupivacaine 0.3657 mg, step one 6:30 to 08:30 2 hours 1.9991 mg Step 2 14:30 to 15:30 1.2003 mg. Step 3 19:51 to 21:21- 2.1013 mg The setting was left the same. The patient tolerated the procedure well. Coding Level of Care Code Est Pt Level 3 (61077) Procedure Only Diagnoses Vertebrogenic low back pain M54.51 Chronic pain syndrome G89.4 Poorly controlled type 2 diabetes mellitus E11.65 Sacroiliitis M46.1 Chronic left sacroiliac joint pain M53.3; G89.29
[2023-08-03 09:38] VITALS: BP 138/78; PULSE 65; RESP 14; O2SAT 95; BMI 31.2
== END 2023-08-03 09:23 | disposition home or self-care (01) ==
PROVIDERS: PCP Student in an Organized Health Care Education/Training Program; Visit Provider Anesthesiology
DX: M54.51 Vertebrogenic low back pain (principal); G89.4 Chronic pain syndrome; E11.65 Type 2 diabetes mellitus with hyperglycemia; M46.1 Sacroiliitis, not elsewhere classified; Z45.1 Encounter for adjustment and management of infusion pump; M53.3 Sacrococcygeal disorders, not elsewhere classified; G89.29 Other chronic pain
CPT/HCPCS: 62370; 99213

== ENCOUNTER → 2023-08-03 08:46 | Outpatient (BNVA) | payer MEDICARE, MEDICAID, SELFPAY | PROVIDERS: PCP Student in an Organized Health Care Education/Training Program; Visit Provider Anesthesiology | DX: Z45.1 Encounter for adjustment and management of infusion pump (principal); M54.51 Vertebrogenic low back pain; G89.4 Chronic pain syndrome; M53.3 Sacrococcygeal disorders, not elsewhere classified; E11.65 Type 2 diabetes mellitus with hyperglycemia | CPT/HCPCS: 62370; 99212 ==

== ENCOUNTER 2023-09-02 08:23 | Day surgery (SDC) | payer MEDICARE, MEDICAID, SELFPAY ==
--- NOTE | 2023-08-17 15:17 | P.CONAN_ITS ---
Documented by User: Marquita Sanchez NP 08/31/23 13:37 HPI - Anesthesia Eval Consult details Narrative: 73yo M for Bilateral Sacroiliac Joint Fusion, 09/02/23 Follows [facility] cardiology. CAD with hx CABG 1988, ReDo CABG x 4 07/2018, CHF, afib (xarelto), AAA repair (stable by recent CT scan). Last office visit 04/2023 - euvolemic, no anginal symptoms DELMY / Central sleep apnea. Follows renal for CKD St 3. Stable at 06/2022 office visit stroke benign essential tremor - following with [facility] neuro Anesthesia Pre-Procedure Meds Is the patient on any of the following meds?: SGLT2 Inhib PMFSH Active Problems Active Problems: All Active Problems Chronic left sacroiliac joint pain (Acute) Sacroiliitis (Acute) Recurrent biliary colic (Acute) Vertebrogenic low back pain (Acute) Chronic pain syndrome (Acute) Poorly controlled type 2 diabetes mellitus (Acute) Pancreatitis (Acute) NAFLD (nonalcoholic fatty liver disease) (Acute) DMII (diabetes mellitus, type 2) (Acute) Gallstones (Acute) S/P laparoscopic sleeve gastrectomy (Acute) Chronic pain (Acute) Neck pain (Acute) Dysphagia (Acute) Depression screen (Acute) Tinnitus (Acute) Dysgeusia (Acute) Anosmia (Acute) On anticoagulant therapy (Acute) Chronic renal insufficiency (Acute) AAA (abdominal aortic aneurysm) (Acute) Disc degeneration, lumbar (Acute) Lumbago of lumbar region with sciatica (Acute) 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, lumbar region (Acute) Benign essential tremor (Acute) Spondylosis of cervical joint without myelopathy (Acute) Spondylosis of lumbosacral spine without myelopathy (Acute) Past Medical History Medical History (Updated 04/29/23 @ 00:02 by Tana Romano) Rheumatic fever Cardiac arrest Disc degeneration, 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, lumbar region PVD (peripheral vascular disease) Mood disorder On beta ruddy at home Benign essential tremor CVA (cerebral vascular accident) IDDM (insulin dependent diabetes mellitus) Sleep apnea Chronic renal insufficiency Myocardial infarction CHF (congestive heart failure) CAD (coronary artery disease) AAA (abdominal aortic aneurysm) Arrhythmia On anticoagulant therapy Elevated cholesterol HTN (hypertension) History of ischemic cardiomyopathy 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 Family History Family History Father Hx of congenital heart disease Mother Hx of heat stroke Family history of problems with anesthesia: No Surgical History Surgical History (Updated 09/02/23 @ 09:34 by Nova Harmon) Hx of shoulder surgery History of laparoscopic cholecystectomy (12/08/22) History of surgery History of surgery History of PTCA Hx of parathyroidectomy Hx of CABG History of hernia repair Hx of gastric bypass Hx of endoscopy History of colonoscopy History of Problems with Anesthesia: No Social History Social History Household Members: None Housing: Apartment Are you a primary healthcare marketer to a significant other at home: No Do you presently have visiting nurse or other home services: Yes ([employer] 2 hours per week) Alcohol intake: current Alcohol intake frequency: holidays/special occasions only Patient Tobacco Use Status: Former Tobacco user Tobacco use type: Cigarette Second Hand Smoke Exposure: No Use of substances other than those prescribed or required for medical reasons: Yes Substance Use Type Other:: 1970s Are you DNR?: No Advance Directives: No Advance Directives Information Provided: Yes Meds Allergies Allergy/AdvReac Type Severity Reaction Status Date / Time grass pollen Allergy Mild unknown Verified 09/02/23 08:49 tree and shrub pollen Allergy Mild itchy Verified 09/02/23 08:49 eyes, sneeze, runny nose Home Medications ?Medication ?Instructions ?Recorded ?Confirmed ?Last Taken ?Type aspirin 81 mg tablet,delayed 81 mg PO DAILY 04/02/20 09/02/23 08/26/23 History release (Adult Aspirin Regimen) baclofen 20 mg tablet 20 mg PO TID 04/02/20 09/02/23 01/28/23 History bupropion HCl 300 mg 24 hr tablet, 300 mg PO QAM 04/02/20 09/02/23 01/28/23 History extended release docusate sodium 100 mg capsule 200 mg PO BID 04/02/20 09/02/23 09/02/23 History fluticasone propionate 50 1 spray intranasal DAILY 04/02/20 09/02/23 01/28/23 History mcg/actuation nasal spray,suspension lisinopril 5 mg tablet 5 mg PO .DAILY@NOON 04/02/20 09/02/23 10/29/21 History rivaroxaban 20 mg tablet (Xarelto) 20 mg PO DAILY@1700 04/02/20 09/02/23 08/28/23 History rosuvastatin 40 mg tablet 40 mg PO DAILY 04/02/20 09/02/23 01/28/23 History tamsulosin 0.4 mg capsule 0.4 mg PO .BID@NOON+BEDTIME 04/02/20 09/02/23 10/29/21 History torsemide 20 mg tablet 20 mg PO DAILY 04/02/20 09/02/23 09/02/23 History clonazepam 0.5 mg tablet 0.5 mg PO TID 05/26/20 09/02/23 09/02/23 History nitroglycerin 0.4 mg sublingual 0.4 mg sublingual ONCE PRN Chest 05/26/20 09/02/23 Unknown History tablet Pain pen needle, diabetic 32 gauge x #50 ea 05/26/20 10/08/22 Unknown History primidone 250 mg tablet 250 mg PO BID 10/31/20 09/02/23 09/02/23 History cetirizine 10 mg tablet 1 tab PO .DAILY@NOON 04/07/21 09/02/23 10/29/21 History mirtazapine 7.5 mg tablet 1 tab PO DAILY 04/07/21 09/02/23 01/28/23 History isosorbide mononitrate 60 mg 2 tab PO QAM 04/20/21 09/02/23 09/02/23 History tablet,extended release 24 hr melatonin 5 mg tablet 2 tab PO DAILY 04/20/21 09/02/23 Unknown History sucralfate 1 gram tablet 1 g PO BID 09/07/21 09/02/23 09/02/23 History eplerenone 25 mg tablet 25 mg PO .DAILY@NOON 08/10/22 09/02/23 Unknown History famotidine 40 mg tablet 40 mg PO BEDTIME 08/10/22 09/02/23 Unknown History prazosin 5 mg capsule 5 mg PO DAILY 08/10/22 09/02/23 01/28/23 History insulin glargine 100 unit/mL (3 13 unit subcut BEDTIME 10/08/22 09/02/23 09/01/23 History mL) subcutaneous pen (Basaglar 13 units KwikPen U-100 Insulin) calcium carbonate 600 mg-vitamin 1 tab PO BID 04/19/23 09/02/23 09/02/23 History D3 10 mcg (400 unit) tablet dapagliflozin propanediol 10 mg 10 mg PO DAILY 04/19/23 09/02/23 08/30/23 History tablet (Farxiga) finasteride 5 mg tablet 5 mg PO DAILY 04/19/23 09/02/23 Unknown History flash glucose sensor (FreeStyle #1 ea 04/19/23 Unknown History Verito 2 Sensor kit) gabapentin 300 mg capsule 300 mg PO DAILY 04/19/23 09/02/23 Unknown History pilocarpine HCl 5 mg tablet 5 mg PO BID 04/19/23 09/02/23 09/02/23 History sertraline 100 mg tablet 150 mg PO BEDTIME 04/19/23 09/02/23 Unknown History hydroxyzine pamoate 25 mg capsule 25 mg PO BID PRN Anxiety 07/04/23 09/02/23 09/02/23 History polyethylene glycol 3350 17 17 g PO DAILY 07/04/23 09/02/23 Unknown History gram/dose oral powder Vitamin D3 25 mcg PO DAILY 09/02/23 09/02/23 09/02/23 History Exam Pertinent Lab Results Pertinent Lab Results: Laboratory Tests 04/27/23 18:53 WBC 9.0 Hgb 14.0 Hct 44.0 Plt Count 176 Sodium 136 Potassium 4.9 Chloride 101 Carbon Dioxide 28 BUN 27 H Creatinine 1.20 Narrative Narrative: EKG 11/2022 Vent. Rate : 040 BPM Atrial Rate : 000 BPM P-R Int : 000 ms QRS Dur : 122 ms QT Int : 500 ms P-R-T Axes : 000 015 073 degrees QTc Int : 407 ms Atrial fibrillation with slow ventricular response Minimal voltage criteria for LVH, may be normal variant ( [place] product ) Inferior infarct (cited on or before 04-NOV-2003) Abnormal ECG When compared with ECG of 20-SEP-2018 13:28, Vent. rate has decreased BY 28 BPM Nonspecific T wave abnormality no longer evident in Inferior leads Nonspecific T wave abnormality, improved in Anterolateral leads QT has shortened ECHO 2022 1. Moderate basal septal hypertrophy. LV size is grossly nml and global systolic function appears low-normal with a visually estimated LVEF 50-55%. Although suboptimally visualized despite use of echo enhancement agent, the basal to mid inferior and inferolateral segments are hypokinetic 2. RV is suboptimally visualized but appears normal in size and mildly reduced in function 3. LA is moderated dilated. Interatrial septum appears intact 4. Calcified aortic and mitral valves without significant stenosis or regurg 5. PASP 27mmHg 6. Inferior vena cava size is normal with normal inspiratory collapse. 7. No significant pericardial effusion 8. Ascending aorta and aortic root are normal Compared with 03/2020 - global LV systolic function declined from hyperdynamic to low-normal to mildly reduced. Assessment and Plan Assessment Anesthesia Assessment: Chart Reviewed Final Anesthetic Review Family History of Problems with Anesthesia: No History of Problems with Anesthesia: No Documented by User: Esteban Millan MD 09/02/23 11:38 HPI - Anesthesia Eval Anesthesia Pre-Procedure Meds If yes to any meds - educate patient: Pt education - increased risk of aspiration and/or euvolemic DKA [facility] Past Medical History Medical History (Updated 04/29/23 @ 00:02 by Tana Romano) Rheumatic fever Cardiac arrest Disc degeneration, 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, lumbar region PVD (peripheral vascular disease) Mood disorder On beta ruddy at home Benign essential tremor CVA (cerebral vascular accident) IDDM (insulin dependent diabetes mellitus) Sleep apnea Chronic renal insufficiency Myocardial infarction CHF (congestive heart failure) CAD (coronary artery disease) AAA (abdominal aortic aneurysm) Arrhythmia On anticoagulant therapy Elevated cholesterol HTN (hypertension) History of ischemic cardiomyopathy 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 Family History Family History Father Hx of congenital heart disease Mother Hx of heat stroke Surgical History Surgical History (Updated 09/02/23 @ 09:34 by Nova Harmon) Hx of shoulder surgery History of laparoscopic cholecystectomy (12/08/22) History of surgery History of surgery History of PTCA Hx of parathyroidectomy Hx of CABG History of hernia repair Hx of gastric bypass Hx of endoscopy History of colonoscopy Social History Social History Household Members: None Housing: Apartment Are you a primary healthcare marketer to a significant other at home: No Do you presently have visiting nurse or other home services: Yes ([employer] 2 hours per week) Alcohol intake: current Alcohol intake frequency: holidays/special occasions only Patient Tobacco Use Status: Former Tobacco user Tobacco use type: Cigarette Second Hand Smoke Exposure: No Use of substances other than those prescribed or required for medical reasons: Yes Substance Use Type Other:: s Are you DNR?: No Advance Directives: No Advance Directives Information Provided: Yes Meds Allergies Allergy/AdvReac Type Severity Reaction Status Date / Time grass pollen Allergy Mild unknown Verified 09/02/23 08:49 tree and shrub pollen Allergy Mild itchy Verified 09/02/23 08:49 eyes, sneeze, runny nose Home Medications ?Medication ?Instructions ?Recorded ?Confirmed ?Last Taken ?Type aspirin 81 mg tablet,delayed 81 mg PO DAILY 04/02/20 09/02/23 08/26/23 History release (Adult Aspirin Regimen) baclofen 20 mg tablet 20 mg PO TID 04/02/20 09/02/23 01/28/23 History bupropion HCl 300 mg 24 hr tablet, 300 mg PO QAM 04/02/20 09/02/23 01/28/23 History extended release docusate sodium 100 mg capsule 200 mg PO BID 04/02/20 09/02/23 09/02/23 History fluticasone propionate 50 1 spray intranasal DAILY 04/02/20 09/02/23 01/28/23 History mcg/actuation nasal spray,suspension lisinopril 5 mg tablet 5 mg PO .DAILY@NOON 04/02/20 09/02/23 10/29/21 History rivaroxaban 20 mg tablet (Xarelto) 20 mg PO DAILY@1700 04/02/20 09/02/23 08/28/23 History rosuvastatin 40 mg tablet 40 mg PO DAILY 04/02/20 09/02/23 01/28/23 History tamsulosin 0.4 mg capsule 0.4 mg PO .BID@NOON+BEDTIME 04/02/20 09/02/23 10/29/21 History torsemide 20 mg tablet 20 mg PO DAILY 04/02/20 09/02/23 09/02/23 History clonazepam 0.5 mg tablet 0.5 mg PO TID 05/26/20 09/02/23 09/02/23 History nitroglycerin 0.4 mg sublingual 0.4 mg sublingual ONCE PRN Chest 05/26/20 09/02/23 Unknown History tablet Pain pen needle, diabetic 32 gauge x #50 ea 05/26/20 10/08/22 Unknown History primidone 250 mg tablet 250 mg PO BID 10/31/20 09/02/23 09/02/23 History cetirizine 10 mg tablet 1 tab PO .DAILY@NOON 04/07/21 09/02/23 10/29/21 History mirtazapine 7.5 mg tablet 1 tab PO DAILY 04/07/21 09/02/23 01/28/23 History isosorbide mononitrate 60 mg 2 tab PO QAM 04/20/21 09/02/23 09/02/23 History tablet,extended release 24 hr melatonin 5 mg tablet 2 tab PO DAILY 04/20/21 09/02/23 Unknown History sucralfate 1 gram tablet 1 g PO BID 09/07/21 09/02/23 09/02/23 History eplerenone 25 mg tablet 25 mg PO .DAILY@NOON 08/10/22 09/02/23 Unknown History famotidine 40 mg tablet 40 mg PO BEDTIME 08/10/22 09/02/23 Unknown History prazosin 5 mg capsule 5 mg PO DAILY 08/10/22 09/02/23 01/28/23 History insulin glargine 100 unit/mL (3 13 unit subcut BEDTIME 10/08/22 09/02/23 09/01/23 History mL) subcutaneous pen (Basaglar 13 units KwikPen U-100 Insulin) calcium carbonate 600 mg-vitamin 1 tab PO BID 04/19/23 09/02/23 09/02/23 History D3 10 mcg (400 unit) tablet dapagliflozin propanediol 10 mg 10 mg PO DAILY 04/19/23 09/02/23 08/30/23 Histor y tablet (Farxiga) finasteride 5 mg tablet 5 mg PO DAILY 04/19/23 09/02/23 Unknown History flash glucose sensor (FreeStyle #1 ea 04/19/23 Unknown History Verito 2 Sensor kit) gabapentin 300 mg capsule 300 mg PO DAILY 04/19/23 09/02/23 Unknown History pilocarpine HCl 5 mg tablet 5 mg PO BID 04/19/23 09/02/23 09/02/23 History sertraline 100 mg tablet 150 mg PO BEDTIME 04/19/23 09/02/23 Unknown History hydroxyzine pamoate 25 mg capsule 25 mg PO BID PRN Anxiety 07/04/23 09/02/23 09/02/23 History polyethylene glycol 3350 17 17 g PO DAILY 07/04/23 09/02/23 Unknown History gram/dose oral powder Vitamin D3 25 mcg PO DAILY 09/02/23 09/02/23 09/02/23 History Exam Airway Mallampati Class: II TM Dist: >3cm Neck ROM: Full Loose/Missing/Broken Teeth: No Heart: see above. Lungs: ok Assessment and Plan Assessment Anesthesia Assessment: Anesthesia Plan Discussed Final Anesthetic Review NPO: Yes ASA Class: IV Final Preanesthetic Review: No Changes in Pt Med Stat, Meds/Allgs Chart Reviewed, Consent Obtained/Reviewed and Anes Risks/Benef Reviewed Patient Risk: High Procedure Risk: Intermediate Anesthetic Plan Anesthetic Plan: GA and Agree w/ Assess. and Plan Disposition: Standard PACU
[2023-08-31 11:14] VITALS: BMI 31.2
[2023-09-02] VITALS (9 sets, daily range): BP systolic 121–140; BP diastolic 58–77; PULSE 58–71; RESP 14–16; TEMP 36.3–36.8; O2SAT 93–98; BMI 31.5
--- NOTE | ~2023-09-02 | FL_ITS ---
EXAMINATION: XR FLUOROSCOPY WITH IMAGES CLINICAL INFORMATION: SI joint fusion. COMPARISON: None available. TECHNIQUE: Fluoroscopy Supervised By: Dr. Chino Gates. Fluoroscopy Time: 1.9 minutes. Cumulative Dose: 87.0 mGy. DAP: 18.3 Gy-cm2. Images: 4. FINDINGS: Intraoperative fluoroscopy and spot films were performed during a procedure in the OR. A probe is seen overlying the region of the left SI joint. Spinal stimulation catheter is again seen. Bilateral iliac stent grafts are present. Please correlate with Dr. Chino Gates's report for complete details. FL/FL guidance in OR IMPRESSION: Intraoperative fluoroscopy and spot films were obtained. Please see Dr. Chino Gates's report for complete details.
[2023-09-02 09:12] LABS: Glucose, Whole Blood 119 mg/dL (60-115)
[2023-09-02] MEDS: Lactated Ringers 1,000 ML 50 ML IVCONT (09:34)
[2023-09-02 09:59] LABS: Prothrombin Time 12.2 SEC (11.1-13.3)
--- NOTE | 2023-09-02 10:16 | MHC.SHP ---
Pre-Procedural Eval Section A - 24 Hr Update-Section A only Date of Service: 09/02/23 The patient is an INPATIENT: No Changes since office visit: Yes Patient answered all questions The patient has been examined within 24 hours of the surgical procedure. The History & Physical has been completed within 30 days and I have reviewed it.: No Section B - Complete if H&P > 30 days Chief Complaint: Sacroiliitis, not elsewhere classified Details of Present Illness: As Above Relevant Family History (Specify if Yes): No Relevant Social History: Other (specify) Present Medications: see Short Stay Collaborative assessment Medical History: No relevant PMH History of Previous Operations: Relevant previous surgery/procedure and date(s) Allergies: Allergies Allergy/AdvReac Type Severity Reaction Status Date / Time grass pollen Allergy Mild unknown Verified 09/02/23 08:49 tree and shrub pollen Allergy Mild itchy Verified 09/02/23 08:49 eyes, sneeze, runny nose Review of Systems Sugical H&P ROS: Negative: Constitution, Cardiovascular, Respiratory, Neurological, Psychiatric, Hem-Onc, Allergic/Immunologic, Gastrointestinal, Genitourinary, Musculoskeletal, Integumentary, Endocrine and Eyes/Ears/Nose/Throat Exam Surgical H&P Exam: Normal: HEENT, Normal: Heart, Normal: Lungs, Normal: Extremities, Normal: Abdomen, Normal: Skin and Normal: Neurological Plan Diagnosis/Plan: Unchanged I have reviewed the history and physical and performed a pertinent physical examination on my patient. No changes have occurred unless specified. Time Spent With Patient Time: Total time managing care of this patient today ____ minutes.
--- NOTE | 2023-09-02 10:50 | PC.NURSE ---
No preop MRSA swab per Dr. Gates.
--- NOTE | 2023-09-02 13:02 | W.PM.OPN ---
Operative Note Operative Note Date of Service: 09/02/23 Narrative: Bilateral sacroiliac joint stabilisation procedure. posterior sacroiliac joint fusion using LINQ SI joint stabilization system with C-arm fluoroscopy for guidance.? Malik Christian is very pleasant 73 years old gentleman who presents in my office with complains on sacroiliac joint pain among other pain syndromes. He came today to receive sacroiliac joint stabilization with fusion bilaterally.??The risks and benefits including bleeding, infection, peripheral nerve damage, failure to reduce the pain were explained to the patient.?The patient came to the operating room, he was positioned on the operating table prone, [employer] monitors were applied and patient was administered with general LMA anesthesia.?? Time-out was performed delineating correct site, side, and nature of the procedure, name and date of of the patient, risk of fire, need for DVT prophylaxis, need for antibiotics.? All pressure points were protected again. Lower back and bilateral buttocks were prepped with ChloraPrep and draped with full body drape including ioban film.. 3. 5 cm posterior midline incision over the projection of the righ S1 foramina was performed.? Soft tissue dissection done to sacroiliac joint and thorough blind dissection was made in the direction of the?sacroiliac joint. Blunt? K-wire pin was inserted into the right sacroiliac joint and guiding instrument was inserted into the joint using the pin as a guide and advanced into the joint on the intermittent anterior posterior, oblique and lateral views.??? After that pin was removed and rasping device was inserted to broach and rasp sacroiliac joint.? Once joint was prepared and inserted the structural allograft implant was hammered into the joint . It was packed with ortho biologics in and around the implant to provide better opportunity? for bones fusion.? The position of the allograft was confirmed radiographically.? After that the procedure was performed from the very same incision now guiding the blunt pain to the left sacroiliac joint and repeating the steps as above. After allograft positions were documented on the lateral view the wound was irrigated, thorough hemostasis was achieved, wound was closed in 2 layers.? Surgery was concluded by performing standard suture closing technique:? 0 Polysorb suture was used to close the wound and shey were used to apptoximate the level of the skin.? Shey were applied to the edges of the wound bacitracin dressing was applied patient Tegaderm film. After that patient was awakened, LMA was removed patient was transferred on the stretcher and sacroiliac joint belt was applied. Patient was transferred stable to PACU.
[2023-09-02] MEDS: fentaNYL citrate/PF 100 MCG/2 ML VIAL 50 MCG IVPUSH ×2 (13:16→13:21)
--- NOTE | 2023-09-02 13:28 | PM.OP ---
Brief Operative Note Date of Service: 09/02/23 Pre-op diagnosis: Sacroiliitis, bilateral sacroiliac joint dysfunction. Post-op diagnosis: same Procedure: Pain tech sacroiliac joint posterior stabilization with fusion. Implants: Lyophilized donor bone elements 2. And ortho-biologicals to cover the bone elements Surgeon: Chino Gates MD Anesthesia: GLMA Was an Train Control Technician used for this Procedure?: No Estimated blood loss (mL): 100 Condition: stable Disposition: PACU
[2023-09-02] MEDS: oxyCODONE HCl Immed Release 5 MG TABLET 10 MG PO (13:40)
== END 2023-09-02 14:21 | disposition home or self-care (01) ==
PROVIDERS: Registered Nurse Emergency; PCP Student in an Organized Health Care Education/Training Program; Visit Provider Anesthesiology
PROC: (CPT 27278; principal; 2023-09-02 10:50)
DX: M46.1 Sacroiliitis, not elsewhere classified (principal); G89.4 Chronic pain syndrome; M53.3 Sacrococcygeal disorders, not elsewhere classified; M54.51 Vertebrogenic low back pain; I73.9 Peripheral vascular disease, unspecified; I13.0 Hypertensive heart and chronic kidney disease with heart failure and stage 1 through stage 4 chronic kidney disease, or unspecified chronic kidney disease; I50.9 Heart failure, unspecified; N18.9 Chronic kidney disease, unspecified; E11.22 Type 2 diabetes mellitus with diabetic chronic kidney disease; E11.65 Type 2 diabetes mellitus with hyperglycemia; Z79.4 Long term (current) use of insulin; Z86.73 Personal history of transient ischemic attack (TIA), and cerebral infarction without residual deficits; I25.2 Old myocardial infarction; I25.10 Atherosclerotic heart disease of native coronary artery without angina pectoris; Z95.1 Presence of aortocoronary bypass graft; E78.00 Pure hypercholesterolemia, unspecified; Z79.01 Long term (current) use of anticoagulants; Z98.84 Bariatric surgery status; Z98.890 Other specified postprocedural states; Z87.891 Personal history of nicotine dependence
CPT/HCPCS: 27278; 36415; 82947; 85610; C1713; J0690; J2704; J2795; J3010; J3370

== ENCOUNTER → 2023-09-02 08:23 | Outpatient (BNV) | payer MEDICARE, MEDICAID, SELFPAY | PROVIDERS: PCP Student in an Organized Health Care Education/Training Program; Visit Provider Anesthesiology | DX: M46.1 Sacroiliitis, not elsewhere classified (principal) | CPT/HCPCS: 27279 ==

== ENCOUNTER 2023-09-09 09:14 | Outpatient (AMB) | payer MEDICARE, MEDICAID, SELFPAY ==
--- NOTE | 2023-09-09 09:16 | MHC.OFFVIS ---
Vital Signs 09/09/23 09:25 Height 5 ft 8 in Weight 207 lb BMI 31.5 BP 133/77 Blood Pressure Location Rt brachial Position Sitting Pulse 103 H Pulse Source Pulse Oximeter Pulse Oximetry (%) 98 Oxygen Delivery Method Room Air Intake Visit Reasons: Pain TEQ [place] removal Intake Note: Pain today 1/ Mastic Floor Layer Required: No Accompanied by: Self / Same As Patient Allergies grass pollen Allergy (Mild, Verified 09/09/23 09:28) unknown tree and shrub pollen Allergy (Mild, Verified 09/09/23 09:28) itchy eyes, sneeze, runny nose HPI Comments Details: Malik is in my office after bilateral paintech sacroiliac joint stabilization with fusion. He reports that he starts feeling better. The dressing was changed today. There are some bruises and small hematoma under the skin but otherwise the wound is intact no swelling no redness no pathological discharge. The patient reported that his dressing fell off. He did not replace it with anything. The dressing was replaced today with bacitracin ointment and sterile 4 x 4. Patient continues to were sacroiliac joint belt. He was told that he needs to continue to avoid heavy lifting, torso twisting, torso turning, and sacroiliac joint belt for the next 9 weeks. We will schedule an appointment for him in 1 week from the surgery and we will remove the shey at that date. Results of diagnostic sacroiliac joint injection: He reports pain before the procedure 6.5/10. Immediately after procedure he reports pain 0/10. The pain remained 0/10 for the next 3 hours after procedure. Pain after the 3 hours at 4th our was only 1. And at 5th our pain started to come back it became 3 out of 10. Which is still more than 50% pain improvement. Therefore this patient is most likely could be diagnosed as the pain from sacroiliac joint injection. This patient is very unfortunate gentleman who is suffering from multiple pain generators. He received multiple forms of treatment to concur the existing pain generators pain. He tried multiple sessions of physical therapy in the past and he continues from time to time to return to his home exercise program to help his pain. He tried multiple medications including NSAIDs muscle relaxants and opioids. NSAIDs give him severe side effects. He is very much concerned about addictive properties of opioids. He reports muscle relaxants help his pain minimally if any. He in the past was injected with multiple procedures including medial branch blocks, radiofrequency ablations, facet joint injections, and eventually he was not very satisfied with results of this injections. He was implanted with Nevro spinal cord stimulator which he reports helped his pain radiating into the bilateral lower extremities. He also reported axial back pain aggravated with sitting and flexing forward and on the MRI he was discovered with Modic type changes in the lumbar spine. Intraseptal procedure was performed with good results for pain aggravated with prolonged sitting however pain which is lower than the lumbar spine in the projection of his pelvis actually getting worse background of alleviated lumbar spine pain. To treat this condition he was implanted with intrathecal pain pump however the intrathecal pain pump was not very instrumental to alleviate his pain. He still receives intrathecal pain pump bupivacaine only however reports significant and advanced pain in the projection of the bilateral sacroiliac joints. He had MRI of the lumbar spine which did not demonstrate any red flags and he did have abdominal and pelvic CT scan which did not demonstrate in pelvis any abnormalities which could be suspected as the pain generators related to sacroiliac joint, sacral bones or iliac bones. He came today with the results of the sacroiliac joint injection and I offered to him sacroiliac joint fusion bilateral. This is very frail patient. He is suffering from severe tremor on bilateral upper and lower extremities. 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 He is scheduled for the surgery implantation of the special stimulating device into the cranium helped his tremor. The procedure is scheduled in January of this year. I would like to proceed with sacroiliac joint fusion Painteq as the bilateral procedure at once because of the future surgery this patient faces with [place] [employer] neurosurgeon. He would need to recover and stay for 10 weeks with minimal mobility after mobilization with fusion painteq and we would like to complete this treatment before he will be ready to go for surgery in [place] [facility]. 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, lumbar region PVD (peripheral vascular disease) Mood disorder On beta ruddy at home Benign essential tremor CVA (cerebral vascular accident) IDDM (insulin dependent diabetes mellitus) Sleep apnea Chronic renal insufficiency Myocardial infarction CHF (congestive heart failure) CAD (coronary artery disease) AAA (abdominal aortic aneurysm) Arrhythmia On anticoagulant therapy Elevated cholesterol HTN (hypertension) History of ischemic cardiomyopathy 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 Surgical History (Updated 09/02/23 @ 09:34 by Nova Harmon) Hx of shoulder surgery History of laparoscopic cholecystectomy (12/08/22) History of surgery History of surgery History of PTCA Hx of parathyroidectomy Hx of CABG History of hernia repair Hx of gastric bypass Hx of endoscopy History of colonoscopy Family History Father Hx of congenital heart disease Mother Hx of heat stroke Social History Household Members: None Housing: Apartment Are you a primary emergency care attendant to a significant other at home: No Do you presently have visiting nurse or other home services: Yes ([employer] 2 hours per week) Alcohol intake: current Alcohol intake frequency: holidays/special occasions only Comment: counts correct Patient Tobacco Use Status: Former Tobacco user Tobacco use type: Cigarette Second Hand Smoke Exposure: No Review of Systems Const All systems reviewed & are unremarkable except as noted in HPI and below ENT Reports Normal hearing present Neuro Reports Normal hearing present and Denies Abnormal speech present Physical Exam Vital Signs: Last Vital Signs Pulse 103 H 09/09/23 09:25 BP 133/77 09/09/23 09:25 Pulse Ox 98 09/09/23 09:25 Oxygen Delivery Method Room Air 09/09/23 09:25 BMI result Body Mass Index 31.5 Const General: cooperative, no acute distress, alert and well groomed Orientation/consciousness: patient oriented x3 HEENT Head: Yes normocephalic and Yes atraumatic Ears: hearing grossly normal bilaterally Eyes General: appearance normal, both eyes and all related structures Eyelids: Yes eyelids normal Pupils: Equal, round and reactive pupils present EOM: EOMs intact bilaterally Neck Neck: Yes normal visual inspection and Yes no JVD Resp Effort & Inspection: normal respiratory effort, able to speak in complete sentences and no audible wheezes Cardio Jugular venous distension: no JVD Back/Spine/Pelvis Other: Tenderness of palpation paraspinal spinal region in the entire spine cervical thoracic and lumbar. SLR is negative with foot dorsiflexion. Flexing forward aggravates the pain. Flexing backwards does not change the pain. James test, Gaenslen test, pelvic compression test, pelvic destruction test, positive on the left as well as on the right. Neuro General: patient oriented x3, moves all extremities and Normal light touch and pain sensation Cranial nerves: Yes Equal, round and reactive pupils present and Yes Normal hearing present Cognition (Neuro): normal cognition Speech: No Abnormal speech present Assessment & Plan Assessment & Plan (1) Vertebrogenic low back pain: Code(s): M54.51 - Vertebrogenic low back pain Category: Medical (2) Chronic pain syndrome: Code(s): G89.4 - Chronic pain syndrome Category: Medical (3) Poorly controlled type 2 diabetes mellitus: Code(s): E11.65 - Type 2 diabetes mellitus with hyperglycemia Category: Medical Plan: The date of the pump refill will be 06/12/2023 . (4) Sacroiliitis: Code(s): M46.1 - Sacroiliitis, not elsewhere classified Category: Medical (5) Chronic left sacroiliac joint pain: Code(s): M53.3 - Sacrococcygeal disorders, not elsewhere classified; G89.29 - Other chronic pain Category: Medical Plan: Status post SI joint bilateral SI joint stabilization with fusion pain tech on 09/09/2023. The wound description is as above. I will remove the shey next Tuesday09/13/2023. Mobility limitations were discussed. Patient's ability to perform activities of daily living were discussed. Sacroiliac joint belt will be continued for the next 10 weeks at least. Plan Next appointment for pump refill will be scheduled on or before 09/26/2023. Coding Level of Care Code Est Pt Level 3 (81905) Diagnoses Vertebrogenic low back pain M54.51 Chronic pain syndrome G89.4 Poorly controlled type 2 diabetes mellitus E11.65 Sacroiliitis M46.1 Chronic left sacroiliac joint pain M53.3; G89.29
[2023-09-09 09:25] VITALS: BP 133/77; PULSE 103; O2SAT 98; BMI 31.5
== END 2023-09-09 09:31 | disposition home or self-care (01) ==
PROVIDERS: PCP Student in an Organized Health Care Education/Training Program; Visit Provider Anesthesiology
DX: M54.51 Vertebrogenic low back pain (principal); G89.4 Chronic pain syndrome; E11.65 Type 2 diabetes mellitus with hyperglycemia; M46.1 Sacroiliitis, not elsewhere classified; M53.3 Sacrococcygeal disorders, not elsewhere classified; G89.29 Other chronic pain
CPT/HCPCS: 99024

== ENCOUNTER → 2023-09-09 09:14 | Outpatient (BNVA) | payer MEDICARE, MEDICAID, SELFPAY | PROVIDERS: PCP Student in an Organized Health Care Education/Training Program; Visit Provider Anesthesiology | DX: M54.51 Vertebrogenic low back pain (principal); G89.4 Chronic pain syndrome; M46.1 Sacroiliitis, not elsewhere classified; M53.3 Sacrococcygeal disorders, not elsewhere classified; Z47.89 Encounter for other orthopedic aftercare; Z98.1 Arthrodesis status | CPT/HCPCS: 99212 ==

== ENCOUNTER 2023-09-14 08:31 | Outpatient (AMB) | payer MEDICARE, MEDICAID, SELFPAY ==
--- NOTE | 2023-09-14 08:34 | A.OFFVIS_ITS ---
Vital Signs 09/14/23 08:51 Height 5 ft 8 in Weight 208 lb BMI 31.6 BP 144/76 H Blood Pressure Location Lt brachial Position Sitting Respiration 17 Pulse 77 Pulse Source Pulse Oximeter Pulse Oximetry (%) 94 Oxygen Delivery Method Room Air Intake Visit Reasons: [place] Removal Intake Note: Patient comes in for staple removal. Reports pain 1.5/10. Allergies grass pollen Allergy (Mild, Verified 09/14/23 08:52) unknown tree and shrub pollen Allergy (Mild, Verified 09/14/23 08:52) itchy eyes, sneeze, runny nose HPI Comments Details: Malik is in my office after bilateral paintech sacroiliac joint stabilization with fusion. He reports that he starts feeling better. He reports his pain today is 1.5/10. The dressing was changed today. There are some bruises and small hematoma under the skin but otherwise the wound is intact no swelling no redness no pathological discharge. The hematoma is probably is getting organized, to avoid infection in this area I will prescribe him antibiotics and probiotics. The shey were removed today. The wound is healed very well. There is no redness, no tenderness on palpation, no pathological discharge. Sterile dressing with bacitracin was applied. Patient continues to wear sacroiliac joint belt. He was told that he needs to continue to avoid heavy lifting, torso twisting, torso turning, and sacroiliac joint belt for the next 9 weeks. We will schedule an appointment for him in 1 week from the surgery and we will remove the shey at that date. Results of diagnostic sacroiliac joint injection: He reports pain before the procedure 6.5/10. Immediately after procedure he reports pain 0/10. The pain remained 0/10 for the next 3 hours after procedure. Pain after the 3 hours at 4th our was only 1. And at 5th our pain started to come back it became 3 out of 10. Which is still more than 50% pain improvement. Therefore this patient is most likely could be diagnosed as the pain from sacroiliac joint injection. This patient is very unfortunate gentleman who is suffering from multiple pain generators. He received multiple forms of treatment to concur the existing pain generators pain. He tried multiple sessions of physical therapy in the past and he continues from time to time to return to his home exercise program to help his pain. He tried multiple medications including NSAIDs muscle relaxants and opioids. NSAIDs give him severe side effects. He is very much concerned about addictive properties of opioids. He reports muscle relaxants help his pain minimally if any. He in the past was injected with multiple procedures including medial branch blocks, radiofrequency ablations, facet joint injections, and eventually he was not very satisfied with results of this injections. He was implanted with Nevro spinal cord stimulator which he reports helped his pain radiating into the bilateral lower extremities. He also reported axial back pain aggravated with sitting and flexing forward and on the MRI he was discovered with Modic type changes in the lumbar spine. Intraseptal procedure was performed with good results for pain aggravated with prolonged sitting however pain which is lower than the lumbar spine in the projection of his pelvis actually getting worse background of alleviated lumbar spine pain. To treat this condition he was implanted with intrathecal pain pump however the intrathecal pain pump was not very instrumental to alleviate his pain. He still receives intrathecal pain pump bupivacaine only however reports significant and advanced pain in the projection of the bilateral sacroiliac joints. He had MRI of the lumbar spine which did not demonstrate any red flags and he did have abdominal and pelvic CT scan which did not demonstrate in pelvis any abnormalities which could be suspected as the pain generators related to sacro iliac joint, sacral bones or iliac bones. He came today with the results of the sacroiliac joint injection and I offered to him sacroiliac joint fusion bilateral. This is very frail patient. He is suffering from severe tremor on bilateral upper and lower extremities. 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 He is scheduled for the surgery implantation of the special stimulating device into the cranium helped his tremor. The procedure is scheduled in January of this year. I would like to proceed with sacroiliac joint fusion Painteq as the bilat eral procedure at once because of the future surgery this patient faces with [place] neurosurgeon. He would need to recover and stay for 10 weeks with minimal mobility after mobilization with fusion painteq and we would like to complete this treatment before he will be ready to go for surgery in [place]. 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, lumbar region PVD (peripheral vascular disease) Mood disorder On beta ruddy at home Benign essential tremor CVA (cerebral vascular accident) IDDM (insulin dependent diabetes mellitus) Sleep apnea Chronic renal insufficiency Myocardial infarction CHF (congestive heart failure) CAD (coronary artery disease) AAA (abdominal aortic aneurysm) Arrhythmia On anticoagulant therapy Elevated cholesterol HTN (hypertension) History of ischemic cardiomyopathy 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 Surgical History (Updated 09/02/23 @ 09:34 by Nova Harmon RN) Hx of shoulder surgery History of laparoscopic cholecystectomy (12/08/22) History of surgery History of surgery History of PTCA Hx of parathyroidectomy Hx of CABG History of hernia repair Hx of gastric bypass Hx of endoscopy History of colonoscopy Family History Father Hx of congenital heart disease Mother Hx of heat stroke Social History Household Members: None Housing: Apartment Are you a primary cardiac care unit nurse to a significant other at home: No Do you presently have visiting nurse or other home services: Yes ([employer] 2 hours per week) Alcohol intake: current Alcohol intake frequency: holidays/special occasions only Comment: counts correct Patient Tobacco Use Status: Former Tobacco user Tobacco use type: Cigarette Second Hand Smoke Exposure: No Review of Systems Const All systems reviewed & are unremarkable except as noted in HPI and below ENT Reports Normal hearing present Neuro Reports Normal hearing present and Denies Abnormal speech present Physical Exam Vital Signs: Last Vital Signs Pulse 77 09/14/23 08:51 Resp 17 09/14/23 08:51 BP 144/76 H 09/14/23 08:51 Pulse Ox 94 09/14/23 08:51 Oxygen Delivery Method Room Air 09/14/23 08:51 BMI result Body Mass Index 31.6 Const General: cooperative, no acute distress, alert and well groomed Orientation/consciousness: patient oriented x3 HEENT Head: Yes normocephalic and Yes atraumatic Ears: hearing grossly normal bilaterally Eyes General: appearance normal, both eyes and all related structures Eyelids: Yes eyelids normal Pupils: Equal, round and reactive pupils present EOM: EOMs intact bilaterally Neck Neck: Yes normal visual inspection and Yes no JVD Resp Effort & Inspection: normal respiratory effort, able to speak in complete sentences and no audible wheezes Cardio Jugular venous distension: no JVD Back/Spine/Pelvis Other: Tenderness of palpation paraspinal spinal region in the entire spine cervical thoracic and lumbar. SLR is negative with foot dorsiflexion. Flexing forward aggravates the pain. Flexing backwards does not change the pain. James test, Gaenslen test, pelvic compression test, pelvic destruction test, positive on the left as well as on the right. Neuro General: patient oriented x3, moves all extremities and Normal light touch and pain sensation Cranial nerves: Yes Equal, round and reactive pupils present and Yes Normal hearing present Cognition (Neuro): normal cognition Speech: No Abnormal speech present Assessment & Plan Assessment & Plan (1) Vertebrogenic low back pain: Code(s): M54.51 - Vertebrogenic low back pain Category: Medical (2) Chronic pain syndrome: Code(s): G89.4 - Chronic pain syndrome Category: Medical (3) Poorly controlled type 2 diabetes mellitus: Code(s): E11.65 - Type 2 diabetes mellitus with hyperglycemia Category: Medical Plan: The date of the pump refill will be 06/12/2023 . (4) Sacroiliitis: Code(s): M46.1 - Sacroiliitis, not elsewhere classified Category: Medical (5) Chronic left sacroiliac joint pain: Code(s): M53.3 - Sacrococcygeal disorders, not elsewhere classified; G89.29 - Other chronic pain Category: Medical Plan: Status post SI joint bilateral SI joint stabilization with fusion pain tech on 09/09/2023. Patient is doing very well. He reports today pain 1.5/10. He reports better social interactions and improved mood. He is scheduled for the pump refill and I will examine his wound at that time. [place] removed today. There is hematoma/maybe seroma in underlying tissues. I prescribed him antibiotics as below. Plan Next appointment for pump refill will be scheduled on or before 09/26/2023. Medications: New cephalexin 1,000 mg (2 x 500 mg) PO Q8H 14 days 84 caps 1RF L.acidophil-L.plantar-Bifido 7 25 billion cell (up4 Probiotics Adult 50 Plus) Take it between the doses of the antibiotics with food 1 cap PO BID 14 days 28 caps 3RF Coding Level of Care Code Est Pt Level 3 (52301) Diagnoses Vertebrogenic low back pain M54.51 Chronic pain syndrome G89.4 Poorly controlled type 2 diabetes mellitus E11.65 Sacroiliitis M46.1 Chronic left sacroiliac joint pain M53.3; G89.29
[2023-09-14 08:51] VITALS: BP 144/76; PULSE 77; RESP 17; O2SAT 94; BMI 31.6
== END 2023-09-14 08:58 | disposition home or self-care (01) ==
PROVIDERS: PCP Student in an Organized Health Care Education/Training Program; Visit Provider Anesthesiology
DX: M54.51 Vertebrogenic low back pain (principal); G89.4 Chronic pain syndrome; E11.65 Type 2 diabetes mellitus with hyperglycemia; M46.1 Sacroiliitis, not elsewhere classified; M53.3 Sacrococcygeal disorders, not elsewhere classified; G89.29 Other chronic pain
CPT/HCPCS: 99024

== ENCOUNTER → 2023-09-14 08:31 | Outpatient (BNVA) | payer MEDICARE, MEDICAID, SELFPAY | PROVIDERS: PCP Student in an Organized Health Care Education/Training Program; Visit Provider Anesthesiology | DX: M54.51 Vertebrogenic low back pain (principal); M46.1 Sacroiliitis, not elsewhere classified; M53.3 Sacrococcygeal disorders, not elsewhere classified; E11.65 Type 2 diabetes mellitus with hyperglycemia; G89.4 Chronic pain syndrome; G89.29 Other chronic pain | CPT/HCPCS: 99212 ==

== ENCOUNTER 2023-09-26 12:49 | Outpatient (AMB) | payer MEDICARE, MEDICAID, SELFPAY ==
--- NOTE | 2023-09-26 13:02 | MHC.OFFVIS ---
Vital Signs 09/26/23 14:04 Height 5 ft 8 in Weight 204 lb 8 oz BMI 31.1 BP 142/66 H Blood Pressure Location Lt brachial Position Sitting Respiration 16 Pulse 80 Pulse Source Pulse Oximeter Pulse Oximetry (%) 95 Oxygen Delivery Method Room Air Intake Visit Reasons: ITDD REFILL Intake Note: Patient comes in for intrathecal medication refill. Reports pain 4/10. Allergies grass pollen Allergy (Mild, Verified 09/26/23 14:06) unknown tree and shrub pollen Allergy (Mild, Verified 09/26/23 14:06) itchy eyes, sneeze, runny nose HPI Comments Details: Malik is in my office after bilateral paintech sacroiliac joint stabilization with fusion. He reports significant improvement in his pain syndrome. He also is here to refill his intrathecal pain pump. He reports his pain today is 1/10. The dressing was removed today he will stop antibiotics everything seemed to be healed appropriately. Prior: This patient is very unfortunate gentleman who is suffering from multiple pain generators. He received multiple forms of treatment to concur the existing pain generators pain. He tried multiple sessions of physical therapy in the past and he continues from time to time to return to his home exercise program to help his pain. He tried multiple medications including NSAIDs muscle relaxants and opioids. NSAIDs give him severe side effects. He is very much concerned about addictive properties of opioids. He reports muscle relaxants help his pain minimally if any. He in the past was injected with multiple procedures including medial branch blocks, radiofrequency ablations, facet joint injections, and eventually he was not very satisfied with results of this injections. He was implanted with Nevro spinal cord stimulator which he reports helped his pain radiating into the bilateral lower extremities. He also reported axial back pain aggravated with sitting and flexing forward and on the MRI he was discovered with Modic type changes in the lumbar spine. Intraseptal procedure was performed with good results for pain aggravated with prolonged sitting however pain which is lower than the lumbar spine in the projection of his pelvis actually getting worse background of alleviated lumbar spine pain. To treat this condition he was implanted with intrathecal pain pump however the intrathecal pain pump was not very instrumental to alleviate his pain. He still receives intrathecal pain pump bupivacaine only however reports significant and advanced pain in the projection of the bilateral sacroiliac joints. He had MRI of the lumbar spine which did not demonstrate any red flags and he did have abdominal and pelvic CT scan which did not demonstrate in pelvis any abnormalities which could be suspected as the pain generators related to sacroiliac joint, sacral bones or iliac bones. 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, lumbar region PVD (peripheral vascular disease) Mood disorder On beta ruddy at home Benign essential tremor CVA (cerebral vascular accident) IDDM (insulin dependent diabetes mellitus) Sleep apnea Chronic renal insufficiency Myocardial infarction CHF (congestive heart failure) CAD (coronary artery disease) AAA (abdominal aortic aneurysm) Arrhythmia On anticoagulant therapy Elevated cholesterol HTN (hypertension) History of ischemic cardiomyopathy 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 Surgical History (Updated 09/02/23 @ 09:34 by Nova Harmon RN) Hx of shoulder surgery History of laparoscopic cholecystectomy (12/08/22) History of surgery History of surgery History of PTCA Hx of parathyroidectomy Hx of CABG History of hernia repair Hx of gastric bypass Hx of endoscopy History of colonoscopy Family History Father Hx of congenital heart disease Mother Hx of heat stroke Social History Household Members: None Housing: Apartment Are you a primary care specialist to a significant other at home: No Do you presently have visiting nurse or other home services: Yes ([employer] 2 hours per week) Alcohol intake: current Alcohol intake frequency: holidays/special occasions only Comment: counts correct Patient Tobacco Use Status: Former Tobacco user Tobacco use type: Cigarette Second Hand Smoke Exposure: No Review of Systems Const All systems reviewed & are unremarkable except as noted in HPI and below ENT Reports Normal hearing present Neuro Reports Normal hearing present and Denies Abnormal speech present Physical Exam Vital Signs: Last Vital Signs Pulse 80 09/26/23 14:04 Resp 16 09/26/23 14:04 BP 142/66 H 09/26/23 14:04 Pulse Ox 95 09/26/23 14:04 Oxygen Delivery Method Room Air 09/26/23 14:04 BMI result Body Mass Index 31.1 Const General: cooperative, no acute distress, alert and well groomed Orientation/consciousness: patient oriented x3 HEENT Head: Yes normocephalic and Yes atraumatic Ears: hearing grossly normal bilaterally Eyes General: appearance normal, both eyes and all related structures Eyelids: Yes eyelids normal Pupils: Equal, round and reactive pupils present EOM: EOMs intact bilaterally Neck Neck: Yes normal visual inspection and Yes no JVD Resp Effort & Inspection: normal respiratory effort, able to speak in complete sentences and no audible wheezes Cardio Jugular venous distension: no JVD Back/Spine/Pelvis Other: Tenderness of palpation paraspinal spinal region in the entire spine cervical thoracic and lumbar. SLR is negative with foot dorsiflexion. Flexing forward aggravates the pain. Flexing backwards does not change the pain. James test, Gaenslen test, pelvic compression test, pelvic destruction test, positive on the left as well as on the right. Neuro General: patient oriented x3, moves all extremities and Normal light touch and pain sensation Cranial nerves: Yes Equal, round and reactive pupils present and Yes Normal hearing present Cognition (Neuro): normal cognition Speech: No Abnormal speech present Assessment & Plan Assessment & Plan (1) Vertebrogenic low back pain: Code(s): M54.51 - Vertebrogenic low back pain Category: Medical (2) Chronic pain syndrome: Code(s): G89.4 - Chronic pain syndrome Category: Medical (3) Poorly controlled type 2 diabetes mellitus: Code(s): E11.65 - Type 2 diabetes mellitus with hyperglycemia Category: Medical Plan: The date of the pump refill will be 06/12/2023 . (4) Sacroiliitis: Code(s): M46.1 - Sacroiliitis, not elsewhere classified Category: Medical (5) Chronic left sacroiliac joint pain: Code(s): M53.3 - Sacrococcygeal disorders, not elsewhere classified; G89.29 - Other chronic pain Category: Medical Plan: Status post SI joint bilateral SI joint stabilization with fusion pain tech on 09/09/2023. Patient is doing very well. He reports today pain 1/10. He reports better social interactions and improved mood. Pain pump refill see as below. Plan Intrathecal pump refill . HE PATIENT CAME TODAY in the office FOR THE CHANGE OF THE MEDICATION IN her PAIN PUMP. The name and date of were verified and informed consent was obtained for the procedure. ?The pump was interrogated and the residual amount of fluid was found to be 1.3 mL. He WAS POSITIONED left lateral decubitus on the bed AND THE AREA OF THE INTRATHECAL PUMP on the right flank WAS PREPPED WITH CHLORAPREP. The fenestrated drape was sterilely applied over the area of the pump. Sterile gloves were worn and of the aspiration system was assembled containing 2 in 22 gauge noncoring needle, the needle was connected to extension tubing which was connected to the 20 cc sterile syringe. The pain pump was palpated under the skin in the patient's right upper flank under the right rib. The needle was inserted through the skin and the central plug of the pain pump and fluid was aspirated. The clear fluid was going into the syringe the total amount of the fluid was 2.2. After that a new batch? of medication was obtained which was containing bupivacaine 8 mg per ml. The admixture was made in two 20 cc syringe prepared by [facility] compounding pharmacy. The syringe was connected to the bacterial filter, and then connected to the extension tubing. After that the medication in the syringe was slowly instilled into the pump with aspirations at 30, 15 and 5 cc gonzales.? The pump was reprogrammed for the doses of bupivacaine 0.5 mg per 24 hours with flexible administration of the medication basal rate bupivacaine 0.3657 mg, step one 6:30 to 08:30 2 hours 1.9991 mg Step 2 14:30 to 15:30 1.2003 mg. Step 3 19:51 to 21:21- 2.1013 mg Patient Instructions: I hereby testify that I spent 32 minutes in conversation with this patient as well as planing his care and organizing this note. Coding Level of Care Code Est Pt Level 4 (99576) Procedure Only Diagnoses Vertebrogenic low back pain M54.51 Chronic pain syndrome G89.4 Poorly controlled type 2 diabetes mellitus E11.65 Sacroiliitis M46.1 Chronic left sacroiliac joint pain M53.3; G89.29
[2023-09-26 14:04] VITALS: BP 142/66; PULSE 80; RESP 16; O2SAT 95; BMI 31.1
== END 2023-09-26 13:32 | disposition home or self-care (01) ==
PROVIDERS: PCP Student in an Organized Health Care Education/Training Program; Visit Provider Anesthesiology
DX: G89.4 Chronic pain syndrome (principal); M54.51 Vertebrogenic low back pain; E11.65 Type 2 diabetes mellitus with hyperglycemia; G89.29 Other chronic pain; Z45.1 Encounter for adjustment and management of infusion pump
CPT/HCPCS: 62370; 99214

== ENCOUNTER → 2023-09-26 12:49 | Outpatient (BNVA) | payer MEDICARE, MEDICAID, SELFPAY | PROVIDERS: PCP Student in an Organized Health Care Education/Training Program; Visit Provider Anesthesiology | DX: M54.51 Vertebrogenic low back pain (principal); M53.3 Sacrococcygeal disorders, not elsewhere classified; E11.65 Type 2 diabetes mellitus with hyperglycemia; G89.4 Chronic pain syndrome; Z45.1 Encounter for adjustment and management of infusion pump | CPT/HCPCS: 62370; 99212 ==

== ENCOUNTER 2023-09-30 08:58 | Outpatient (REF) | payer MEDICARE, MEDICAID, SELFPAY ==
--- NOTE | ~2023-09-30 | XR_ITS ---
EXAMINATION: XR PELVIS CLINICAL INFORMATION: Sacrococcygeal disorders, not elsewhere classified. COMPARISON: CT scan of the abdomen and pelvis dated April 27, 2023. TECHNIQUE: AP and lateral views of the pelvis. FINDINGS: No fracture or dislocation is seen. No lytic or sclerotic bony lesion is appreciated. Bony mineralization appears preserved. Question mild joint space narrowing involving the hips. Mild compression deformity of L4 appears unchanged compared with April 27, 2023. Mild lower lumbar disc and facet degenerative changes. Electronic pulse generator device projects over the right gluteal soft tissues. Its leads lie off the edge of the film. Partially imaged aortobiiliac endograft. Electronic device projects over the soft tissues of the lower abdomen on lateral views only. Surgical clips project over the groins. XR/XR pelvis 1-2V IMPRESSION: No acute finding. Electronically signed by: Juan Rothman MD 12/05/2023 06:47 PM EDT
== END 2023-09-30 08:59 | disposition home or self-care (01) ==
LOC: HO.XRAY 08:58
PROVIDERS: PCP Student in an Organized Health Care Education/Training Program; Visit Provider Anesthesiology
DX: M53.3 Sacrococcygeal disorders, not elsewhere classified (principal)
CPT/HCPCS: 72170

== ENCOUNTER 2023-10-21 13:46 | Outpatient (AMB) | payer MEDICARE, MEDICAID, SELFPAY ==
--- NOTE | 2023-10-21 14:10 | A.SPINEOV_ITS ---
Intake Visit Reasons: Chronic left sacroiliac joint pain Intake Note: Mr. Maki is here today c/o Left sided low back pain [employer] Required: No Allergies grass pollen Allergy (Mild, Verified 09/26/23 14:06) unknown tree and shrub pollen Allergy (Mild, Verified 09/26/23 14:06) itchy eyes, sneeze, runny nose Assessment & Plan Assessment & Plan (1) Chronic left sacroiliac joint pain: Code(s): M53.3 - Sacrococcygeal disorders, not elsewhere classified; G89.29 - Other chronic pain Category: Medical (2) Sacroiliitis: Code(s): M46.1 - Sacroiliitis, not elsewhere classified Category: Medical Plan This is a 73-year-old gentleman self-referred to the office today for 2nd opinion. He has had chronic low back pain for years. It started maybe 9 years ago and initially he responded beautifully to her injections. After a number of years, the original person doing his injections quit [facility] and Dr. Gates took over for that gentleman. He continued in the injections and he seemed to do well for about a year or 2. Unfortunately the injections stop working. This ultimately transition to a spinal cord stimulator and a intrathecal pain pump. More recently also had SI joint fusions done. The patient reports no relief from any of these procedures in his wondering if there is anything else that can be done for him. His pain is aggravated with standing walking or if he lays flat in his back. He only has 1 position that is comfortable which is in his recliner. PMH: He has an extensive medical history not the least of which is 9 heart attacks, 2 open heart surgeries, AAA repair, stage 3 chronic kidney disease, diabetes, AFib on Xarelto, essential tremor, hypertension amongst many other issues. Social hx: Quit smoking many years ago, no drugs or alcohol Medications: Please see the [employer] list for his medications, but this would include Xarelto and aspirin in terms of blood thinners Allergies: Adhesive tapes Physical exam: Awake alert oriented no acute distress, he has multiple well- healed incisions on his low back. Negative ORI testing, no sacroiliac pain reproducible with palpation. Diffuse tenderness along his low back. Strength and reflex testing is normal Imaging review: There is no dedicated lumbar imaging review, but he does have an abdominal CT which we can use to at least take a screening look at the low back. I reviewed with Dr. Raymond, there is evidence of some osteoporosis and diffuse [id number] disc degeneration but nothing that specifically looks as though would cause the degree of pain that he is in. Impression: 73-year-old male with chronic low back pain, has been treated with multiple modalities by Dr. Gates, who unfortunately has got no pain relief from all of the devices and implants. Unfortunately Dr. Raymond does not have anything to offer him from the standpoint of his low back. We told him that once his treating providers back for medical leave he should follow-up with him and discuss if there any other options. Thank you for allowing us to care for your patient. The total time spent with this visit with this patient was 45 minutes reviewing history, physical exam, lumbar imaging review, and implementation of treatment plan or further diagnostic testing Randy Raymond MD,PhD [facility] Coding Level of Care Code New Pt Level 4 (39811) Diagnoses Chronic left sacroiliac joint pain M53.3; G89.29 Sacroiliitis M46.1
== END 2023-10-21 15:19 | disposition home or self-care (01) ==
PROVIDERS: PCP Student in an Organized Health Care Education/Training Program; Visit Provider Physician Assistant
DX: M53.3 Sacrococcygeal disorders, not elsewhere classified (principal); G89.29 Other chronic pain; M46.1 Sacroiliitis, not elsewhere classified
CPT/HCPCS: 99204

== ENCOUNTER → 2023-10-21 13:46 | Outpatient (BNVA) | payer MEDICARE, MEDICAID, SELFPAY | PROVIDERS: PCP Student in an Organized Health Care Education/Training Program; Visit Provider Physician Assistant | DX: M53.3 Sacrococcygeal disorders, not elsewhere classified (principal); M46.1 Sacroiliitis, not elsewhere classified; G89.29 Other chronic pain | CPT/HCPCS: 99202 ==

== ENCOUNTER 2023-11-10 11:21 | Outpatient (REF) | payer MEDICARE, MEDICAID, SELFPAY ==
[2023-11-10 16:37] LABS: Alanine Aminotransferase 32 U/L (0-40); Albumin Level 4.1 g/dL (3.5-5.0); Alkaline Phosphatase 104 U/L (39-117); Anion Gap 10 (12-20); Aspartate Amino Transferase 27 U/L (5-37); Bilirubin Direct 0.2 mg/dL (0.0-0.5); Bilirubin Total 0.5 mg/dL (0.0-1.0); Blood Urea Nitrogen 24 mg/dL (9-16); Calcium 8.8 mg/dL (8.4-10.2); Carbon Dioxide 30 mmol/L (22-29); Chloride 105 mmol/L (96-108); Cholesterol 110 mg/dL (<200); Estimated Glomerular Filt Rate > 60; Glucose Random 113 mg/dL (60-115); HDL Cholesterol 45 mg/dL (>40); LDL Cholesterol Calculated 50 mg/dL (<100); Potassium 4.3 mmol/L (3.3-5.1); Sodium 141 mmol/L (135-145); Total Protein 6.8 g/dL (6.5-8.0); Triglycerides 76 mg/dL (<150)
== END 2023-11-10 11:22 | disposition home or self-care (01) ==
LOC: HO.CHCLDS 11:21
PROVIDERS: Visit Provider Student in an Organized Health Care Education/Training Program
DX: E11.65 Type 2 diabetes mellitus with hyperglycemia (principal)
CPT/HCPCS: 36415; 80048; 80061; 80076

== ENCOUNTER 2023-11-17 12:59 | Outpatient (AMB) | payer MEDICARE, MEDICAID, SELFPAY ==
--- NOTE | 2023-11-17 13:05 | MHC.OFFVIS ---
Vital Signs 11/17/23 13:18 Height 5 ft 8 in Weight 210 lb BMI 31.9 BP 134/78 Blood Pressure Location Lt brachial Position Sitting Respiration 16 Pulse 58 Pulse Source Pulse Oximeter Pulse Oximetry (%) 95 Oxygen Delivery Method Room Air Intake Visit Reasons: ITDD REFILL Intake Note: Patient comes in for intrathecal medication refill. Reports pain 8/10. Allergies grass pollen Allergy (Mild, Verified 11/17/23 13:20) unknown tree and shrub pollen Allergy (Mild, Verified 11/17/23 13:20) itchy eyes, sneeze, runny nose HPI Comments Details: Malik is in my office after bilateral paintech sacroiliac joint stabilization with fusion. He had significant improvement however he fell in his kitchen and started to experience lot of pain again. He was sent for the x-ray of the pelvis and it appears to be that although both implantation elements are in sacroiliac joints 1 of them got shifted vertical it to the upper portion of the joint and now has a lesser chance to provide enough of the space to form the sacroiliac bridge. Most likely that is why patient started to experience pain again. He is asking me to prescribe new sacroiliac joint belt. The old 1 is not satisfactory for him. I do not know any other sacroiliac joint belts but if he will be able to find 1 I will be able to prescribe him this model. He also went for refill of the pain pump he is on bupivacaine variable schedule see the pump refill as below. I also told him that possibility exists to try to fix his sacroiliac joint with orthopedic procedure was sacroiliac joint fusion with the bolts and screws. Prior: This patient is very unfortunate gentleman who is suffering from multiple pain generators. He received multiple forms of treatment to concur the existing pain generators pain. He tried multiple sessions of physical therapy in the past and he continues from time to time to return to his home exercise program to help his pain. He tried multiple medications including NSAIDs muscle relaxants and opioids. NSAIDs give him severe side effects. He is very much concerned about addictive properties of opioids. He reports muscle relaxants help his pain minimally if any. He in the past was injected with multiple procedures including medial branch blocks, radiofrequency ablations, facet joint injections, and eventually he was not very satisfied with results of this injections. He was implanted with Nevro spinal cord stimulator which he reports helped his pain radiating into the bilateral lower extremities. He also reported axial back pain aggravated with sitting and flexing forward and on the MRI he was discovered with Modic type changes in the lumbar spine. Intraseptal procedure was performed with good results for pain aggravated with prolonged sitting however pain which is lower than the lumbar spine in the projection of his pelvis actually getting worse background of alleviated lumbar spine pain. To treat this condition he was implanted with intrathecal pain pump however the intrathecal pain pump was not very instrumental to alleviate his pain. He still receives intrathecal pain pump bupivacaine only however reports significant and advanced pain in the projection of the bilateral sacroiliac joints. He had MRI of the lumbar spine which did not demonstrate any red flags and he did have abdominal and pelvic CT scan which did not demonstrate in pelvis any abnormalities which could be suspected as the pain generators related to sacroiliac joint, sacral bones or iliac bones. 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, lumbar region PVD (peripheral vascular disease) Mood disorder On beta ruddy at home Benign essential tremor CVA (cerebral vascular accident) IDDM (insulin dependent diabetes mellitus) Sleep apnea Chronic renal insufficiency Myocardial infarction CHF (congestive heart failure) CAD (coronary artery disease) AAA (abdominal aortic aneurysm) Arrhythmia On anticoagulant therapy Elevated cholesterol HTN (hypertension) History of ischemic cardiomyopathy 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 Surgical History (Updated 09/02/23 @ 09:34 by Nova Harmon RN) Hx of shoulder surgery History of laparoscopic cholecystectomy (12/08/22) History of surgery History of surgery History of PTCA Hx of parathyroidectomy Hx of CABG History of hernia repair Hx of gastric bypass Hx of endoscopy History of colonoscopy Family History Father Hx of congenital heart disease Mother Hx of heat stroke Social History Household Members: None Housing: Apartment Are you a primary care worker to a significant other at home: No Do you presently have visiting nurse or other home services: Yes ([employer] 2 hours per week) Alcohol intake: current Alcohol intake frequency: holidays/special occasions only Comment: counts correct Patient Tobacco Use Status: Former Tobacco user Tobacco use type: Cigarette Second Hand Smoke Exposure: No Review of Systems Const All systems reviewed & are unremarkable except as noted in HPI and below ENT Reports Normal hearing present Neuro Reports Normal hearing present and Denies Abnormal speech present Physical Exam Vital Signs: Last Vital Signs Pulse 58 11/17/23 13:18 Resp 16 11/17/23 13:18 BP 134/78 11/17/23 13:18 Pulse Ox 95 11/17/23 13:18 Oxygen Delivery Method Room Air 11/17/23 13:18 BMI result Body Mass Index 31.9 Const General: cooperative, no acute distress, alert and well groomed Orientation/consciousness: patient oriented x3 HEENT Head: Yes normocephalic and Yes atraumatic Ears: hearing grossly normal bilaterally Eyes General: appearance normal, both eyes and all related structures Eyelids: Yes eyelids normal Pupils: Equal, round and reactive pupils present EOM: EOMs intact bilaterally Neck Neck: Yes normal visual inspection and Yes no JVD Resp Effort & Inspection: normal respiratory effort, able to speak in complete sentences and no audible wheezes Cardio Jugular venous distension: no JVD Back/Spine/Pelvis Other: Tenderness of palpation paraspinal spinal region in the entire spine cervical thoracic and lumbar. SLR is negative with foot dorsiflexion. Flexing forward aggravates the pain. Flexing backwards does not change the pain. James test, Gaenslen test, pelvic compression test, pelvic destruction test, positive on the left as well as on the right. Neuro General: patient oriented x3, moves all extremities and Normal light touch and pain sensation Cranial nerves: Yes Equal, round and reactive pupils present and Yes Normal hearing present Cognition (Neuro): normal cognition Speech: No Abnormal speech present Results Reviewed Results Reviewed: I personally reviewed the results of the pelvis x-ray the radiology reading is not available yet but in my opinion 1 of the elements got shifted vertically in the sacroiliac joint and now is not able to provide enough of the space to form the bridge between the sacral bone and iliac bone. Assessment & Plan Assessment & Plan (1) Chronic left sacroiliac joint pain: Code(s): M53.3 - Sacrococcygeal disorders, not elsewhere classified; G89.29 - Other chronic pain Category: Medical Plan: Status post SI joint bilateral SI joint stabilization with fusion pain tech on 09/09/2023. Patient was doing very well. However he fell in the kitchen he shifted 1 of the implantation elements in the vertical direction in his sacroiliac joint. Most likely this is why he is experiencing more pain. We agreed that I will try fentanyl next time in his pain pump admixture. Next time I will order him a new batch of the medication containing 12 mg of bupivacaine per mL and 80 micro g of fentanyl per mL in preservative-free normal saline. (2) Sacroiliitis: Code(s): M46.1 - Sacroiliitis, not elsewhere classified Category: Medical (3) Vertebrogenic low back pain: Code(s): M54.51 - Vertebrogenic low back pain Category: Medical (4) Chronic pain syndrome: Code(s): G89.4 - Chronic pain syndrome Category: Medical (5) Poorly controlled type 2 diabetes mellitus: Code(s): E11.65 - Type 2 diabetes mellitus with hyperglycemia Category: Medical Plan Intrathecal pump refill . HE PATIENT CAME TODAY in the office FOR THE CHANGE OF THE MEDICATION IN her PAIN PUMP. The name and date of were verified and informed consent was obtained for the procedure. ?The pump was interrogated and the residual amount of fluid was found to be mL. He WAS POSITIONED left lateral decubitus on the bed AND THE AREA OF THE INTRATHECAL PUMP on the right flank WAS PREPPED WITH CHLORAPREP. The fenestrated drape was sterilely applied over the area of the pump. Sterile gloves were worn and of the aspiration system was assembled containing 2 in 22 gauge noncoring needle, the needle was connected to extension tubing which was connected to the 20 cc sterile syringe. The pain pump was palpated under the skin in the patient's right upper flank under the right rib. The needle was inserted through the skin and the central plug of the pain pump and fluid was aspirated. The clear fluid was going into the syringe the total amount of the fluid was 2.2. After that a new batch? of medication was obtained which was containing bupivacaine 8 mg per ml. The admixture was made in two 20 cc syringe prepared by [facility] compounding pharmacy. The syringe was connected to the bacterial filter, and then connected to the extension tubing. After that the medication in the syringe was slowly instilled into the pump with aspirations at 30, 15 and 5 cc gonzales.? The pump was reprogrammed for the doses of bupivacaine 0.5 mg per 24 hours with flexible administration of the medication basal rate bupivacaine 0.3657 mg, the flex doses were increased today 11/17/2023 as following: step one 6:30 to 08:30 2 hours 2.1986 mg Step 2 14:30 to 15:30 1.5020 mg. Step 3 19:51 to 21:21- 2.6006 mg The total dose of the bupivacaine is 6.6602 it is moderate increase from previous dose of daily bupivacaine 5.6663 mg Coding Level of Care Code Est Pt Level 3 (05104) Procedure Only Diagnoses Chronic left sacroiliac joint pain M53.3; G89.29 Sacroiliitis M46.1 Vertebrogenic low back pain M54.51 Chronic pain syndrome G89.4 Poorly controlled type 2 diabetes mellitus E11.65
[2023-11-17 13:18] VITALS: BP 134/78; PULSE 58; RESP 16; O2SAT 95; BMI 31.9
== END 2023-11-17 13:51 | disposition home or self-care (01) ==
PROVIDERS: PCP Student in an Organized Health Care Education/Training Program; Visit Provider Anesthesiology
DX: G89.4 Chronic pain syndrome (principal); M54.51 Vertebrogenic low back pain; M53.3 Sacrococcygeal disorders, not elsewhere classified; Z45.1 Encounter for adjustment and management of infusion pump
CPT/HCPCS: 62370; 99213

== ENCOUNTER → 2023-11-17 12:59 | Outpatient (BNVA) | payer MEDICARE, MEDICAID, SELFPAY | PROVIDERS: PCP Student in an Organized Health Care Education/Training Program; Visit Provider Anesthesiology | DX: Z45.89 Encounter for adjustment and management of other implanted devices (principal); M53.3 Sacrococcygeal disorders, not elsewhere classified; M46.1 Sacroiliitis, not elsewhere classified; M54.51 Vertebrogenic low back pain; G89.29 Other chronic pain; E11.65 Type 2 diabetes mellitus with hyperglycemia | CPT/HCPCS: 62370; 99212 ==

== ENCOUNTER 2023-12-01 08:15 | Outpatient (AMB) | payer MEDICARE, MEDICAID, SELFPAY ==
[2023-12-01 08:28] VITALS: BP 149/67; PULSE 70; O2SAT 97; BMI 32.7
--- NOTE | 2023-12-01 08:28 | MHC.OFFVIS ---
Vital Signs 12/01/23 08:28 Height 5 ft 8 in Weight 215 lb BMI 32.7 BP 149/67 H Blood Pressure Location Rt brachial Position Sitting Pulse 70 Pulse Source Pulse Oximeter Pulse Oximetry (%) 97 Oxygen Delivery Method Room Air Intake Visit Reasons: FU opioid explanation Intake Note: Patient states that he has not taken any opioids. Allergies grass pollen Allergy (Mild, Verified 12/01/23 08:29) unknown tree and shrub pollen Allergy (Mild, Verified 12/01/23 08:29) itchy eyes, sneeze, runny nose Medication List - Last Reconciled 12/01/23 by Shoshana Choi aspirin (Adult Aspirin Regimen) 81 mg PO DAILY baclofen 20 mg PO TID bupropion HCl XL 300 mg PO QAM calcium carbonate-vitamin D3 600 mg-10 mcg (400 unit) 1 tab PO BID cephalexin 1,000 mg (2 x 500 mg) PO Q8H 14 days cetirizine 1 tab PO .DAILY@NOON clonazepam 0.5 mg PO TID dapagliflozin propanediol (Farxiga) 10 mg PO DAILY diphenhydramine HCl 50 mg (2 x 25 mg) PO Q6H PRN 3 days docusate sodium 200 mg PO BID eplerenone 25 mg PO .DAILY@NOON esomeprazole magnesium 40 mg PO BID famotidine 40 mg PO BEDTIME finasteride 5 mg PO DAILY flash glucose sensor (FreeStyle Verito 2 Sensor kit) As directed fluticasone propionate 50 mcg/actuation 1 spray intranasal DAILY gabapentin 300 mg PO DAILY hydroxyzine pamoate 25 mg PO BID PRN insulin glargine (Basaglar KwikPen U-100 Insulin) 13 units subcut BEDTIME isosorbide mononitrate ER 2 tabs PO QAM L.acidophil-L.plantar-Bifido 7 25 billion cell (up4 Probiotics Adult 50 Plus) 1 cap PO BID 14 days lisinopril 5 mg PO .DAILY@NOON lisinopril 10 mg PO DAILY melatonin 2 tabs PO DAILY mirtazapine 1 tab PO DAILY naloxone 4 mg/actuation 4 mg intranasal Q3M PRN 1 day nitroglycerin 0.4 mg sublingual ONCE PRN oxycodone 5 mg PO TID PRN pen needle, diabetic As directed pilocarpine HCl 5 mg PO BID polyethylene glycol 3350 17 grams PO DAILY prazosin 5 mg PO DAILY primidone 250 mg PO BID rivaroxaban (Xarelto) 20 mg PO DAILY@1700 rosuvastatin 40 mg PO DAILY sertraline 150 mg PO BEDTIME sucralfate 1 g PO BID tamsulosin 0.4 mg PO .BID@NOON+BEDTIME torsemide 20 mg PO DAILY [Vitamin D3 25 mcg PO DAILY] HPI Comments Details: Malik is in my office after bilateral paintech sacroiliac joint stabilization with fusion. He had significant improvement however he fell in his kitchen and started to experience lot of pain again. He was sent for the x-ray of the pelvis and it appears to be that although both implantation elements are in sacroiliac joints 1 of them got shifted vertical it to the upper portion of the joint and now has a lesser chance to provide enough of the space to form the sacroiliac bridge. Most likely that is why patient started to experience pain again. We decided to treat his pain with addition of the opioids into intrathecal pain pump. For his next pump refill I will fill it up with hydromorphone 150 micro g per mL and bupivacaine 8 milligrams/mL. I will continue to increase concentration of hydromorphone until patient's satisfaction. To temporize his pain level now I will prescribe him short course of Percocet see as below. He is interested in sacroiliac joint fusion now performed by the surgeon with surgical screws. We will find out where this procedure can not be performed and we will refer patient there. He also would like to call [employer] sales representative and ask him to increase stimulation levels on the machine Prior: This patient is very unfortunate gentleman who is suffering from multiple pain generators. He received multiple forms of treatment to concur the existing pain generators pain. He tried multiple sessions of physical therapy in the past and he continues from time to time to return to his home exercise program to help his pain. He tried multiple medications including NSAIDs muscle relaxants and opioids. NSAIDs give him severe side effects. He is very much concerned about addictive properties of opioids. He reports muscle relaxants help his pain minimally if any. He in the past was injected with multiple procedures including medial branch blocks, radiofrequency ablations, facet joint injections, and eventually he was not very satisfied with results of this injections. He was implanted with [employer] spinal cord stimulator which he reports helped his pain radiating into the bilateral lower extremities. He also reported axial back pain aggravated with sitting and flexing forward and on the MRI he was discovered with Modic type changes in the lumbar spine. Intraseptal procedure was performed with good results for pain aggravated with prolonged sitting however pain which is lower than the lumbar spine in the projection of his pelvis actually getting worse background of alleviated lumbar spine pain. To treat this condition he was implanted with intrathecal pain pump however the intrathecal pain pump was not very instrumental to alleviate his pain. He still receives intrathecal pain pump bupivacaine only however reports significant and advanced pain in the projection of the bilateral sacroiliac joints. He had MRI of the lumbar spine which did not demonstrate any red flags and he did have abdominal and pelvic CT scan which did not demonstrate in pelvis any abnormalities which could be suspected as the pain generators related to sacroiliac joint, sacral bones or iliac bones. 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, lumbar region PVD (peripheral vascular disease) Mood disorder On beta ruddy at home Benign essential tremor CVA (cerebral vascular accident) IDDM (insulin dependent diabetes mellitus) Sleep apnea Chronic renal insufficiency Myocardial infarction CHF (congestive heart failure) CAD (coronary artery disease) AAA (abdominal aortic aneurysm) Arrhythmia On anticoagulant therapy Elevated cholesterol HTN (hypertension) History of ischemic cardiomyopathy 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 Surgical History (Updated 09/02/23 @ 09:34 by Nova Harmon RN) Hx of shoulder surgery History of laparoscopic cholecystectomy (12/08/22) History of surgery History of surgery History of PTCA Hx of parathyroidectomy Hx of CABG History of hernia repair Hx of gastric bypass Hx of endoscopy History of colonoscopy Family History Father Hx of congenital heart disease Mother Hx of heat stroke Social History Household Members: None Housing: Apartment Are you a primary healthcare translator to a significant other at home: No Do you presently have visiting nurse or other home services: 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) Alcohol intake: current Alcohol intake frequency: holidays/special occasions only Comment: counts correct Patient Tobacco Use Status: Former Tobacco user Tobacco use type: Cigarette Second Hand Smoke Exposure: No Review of Systems Const All systems reviewed & are unremarkable except as noted in HPI and below ENT Reports Normal hearing present Neuro Reports Normal hearing present and Denies Abnormal speech present Physical Exam Vital Signs: Last Vital Signs Pulse 70 12/01/23 08:28 BP 149/67 H 12/01/23 08:28 Pulse Ox 97 12/01/23 08:28 Oxygen Delivery Method Room Air 12/01/23 08:28 BMI result Body Mass Index 32.7 Const General: cooperative, no acute distress, alert and well groomed Orientation/consciousness: patient oriented x3 HEENT Head: Yes normocephalic and Yes atraumatic Ears: hearing grossly normal bilaterally Eyes General: appearance normal, both eyes and all related structures Eyelids: Yes eyelids normal Pupils: Equal, round and reactive pupils present EOM: EOMs intact bilaterally Neck Neck: Yes normal visual inspection and Yes no JVD Resp Effort & Inspection: normal respiratory effort, able to speak in complete sentences and no audible wheezes Cardio Jugular venous distension: no JVD Back/Spine/Pelvis Other: Tenderness of palpation paraspinal spinal region in the entire spine cervical thoracic and lumbar. SLR is negative with foot dorsiflexion. Flexing forward aggravates the pain. Flexing backwards does not change the pain. James test, Gaenslen test, pelvic compression test, pelvic destruction test, positive on the left as well as on the right. Neuro General: patient oriented x3, moves all extremities and Normal light touch and pain sensation Cranial nerves: Yes Equal, round and reactive pupils present and Yes Normal hearing present Cognition (Neuro): normal cognition Speech: No Abnormal speech present Assessment & Plan Assessment & Plan (1) Chronic left sacroiliac joint pain: Code(s): M53.3 - Sacrococcygeal disorders, not elsewhere classified; G89.29 - Other chronic pain Category: Medical Plan: Status post SI joint bilateral SI joint stabilization with fusion pain tech on 09/09/2023. Patient was doing very well. However he fell in the kitchen he shifted 1 of the implantation elements in the vertical direction in his sacroiliac joint. Most likely this is why he is experiencing more pain. We agreed that I will try fentanyl next time in his pain pump admixture. Next time I will order him a new batch of the medication containing 150 micro g of hydromorphone and 8 mg of bupivacaine. (2) Sacroiliitis: Code(s): M46.1 - Sacroiliitis, not elsewhere classified Category: Medical (3) Vertebrogenic low back pain: Code(s): M54.51 - Vertebrogenic low back pain Category: Medical (4) Chronic pain syndrome: Code(s): G89.4 - Chronic pain syndrome Category: Medical (5) Poorly controlled type 2 diabetes mellitus: Code(s): E11.65 - Type 2 diabetes mellitus with hyperglycemia Category: Medical Plan Plan of care as above I will be working on addition of hydromorphone to his admixture of the intrathecal pain medication. I also discussed referral for sacroiliac joint fusion. We need to find a facility where PSIS originated sacroiliac joint fusion is performed. He also will product support representative from [facility] to increase stimulation on the machine. Medications: New oxycodone-acetaminophen 7.5-325 mg (Percocet) Partial Fill upon patient request. 1 tab PO Q6H PRN 84 tabs 0RF pain 21 days Patient Instructions: I here by testify that I spent 45 minutes in conversation with this patient as well as researching patient's options planning his care and organizing this note. Coding Level of Care Code Est Pt Level 4 (03635) Diagnoses Chronic left sacroiliac joint pain M53.3; G89.29 Sacroiliitis M46.1 Vertebrogenic low back pain M54.51 Chronic pain syndrome G89.4 Poorly controlled type 2 diabetes mellitus E11.65
== END 2023-12-01 08:41 | disposition home or self-care (01) ==
PROVIDERS: PCP Student in an Organized Health Care Education/Training Program; Visit Provider Anesthesiology
DX: M53.3 Sacrococcygeal disorders, not elsewhere classified (principal); G89.29 Other chronic pain; M46.1 Sacroiliitis, not elsewhere classified; M54.51 Vertebrogenic low back pain; G89.4 Chronic pain syndrome; E11.65 Type 2 diabetes mellitus with hyperglycemia
CPT/HCPCS: 99024

== ENCOUNTER → 2023-12-01 08:15 | Outpatient (BNVA) | payer MEDICARE, MEDICAID, SELFPAY | PROVIDERS: PCP Student in an Organized Health Care Education/Training Program; Visit Provider Anesthesiology | DX: M53.3 Sacrococcygeal disorders, not elsewhere classified (principal); M46.1 Sacroiliitis, not elsewhere classified; M54.51 Vertebrogenic low back pain; G89.4 Chronic pain syndrome; E11.65 Type 2 diabetes mellitus with hyperglycemia; Z98.1 Arthrodesis status; Z91.81 History of falling; Z97.8 Presence of other specified devices; Z79.891 Long term (current) use of opiate analgesic | CPT/HCPCS: 99212 ==

== ENCOUNTER 2023-12-28 09:10 | Outpatient (AMB) | payer MEDICARE, MEDICAID, SELFPAY ==
--- NOTE | 2023-12-28 09:14 | MHC.OFFVIS ---
Vital Signs 12/28/23 09:53 Height 5 ft 8 in Weight 201 lb BMI 30.6 BP 126/72 Blood Pressure Location Lt brachial Position Sitting Respiration 16 Pulse 85 Pulse Source Pulse Oximeter Pulse Oximetry (%) 94 Oxygen Delivery Method Room Air Intake Visit Reasons: ITDD Refill Intake Note: Patient comes in for intrathecal medication refill. Reports pain 09/30. Allergies grass pollen Allergy (Mild, Verified 12/28/23 09:57) unknown tree and shrub pollen Allergy (Mild, Verified 12/28/23 09:57) itchy eyes, sneeze, runny nose HPI Comments Details: Malik is in my office today to refill his intrathecal pain pump. He has new admixture and of the medication with addition of hydromorphone 150 micro g per mL. The full report of the refill as below. I recommended him not to take oral opioid medications while he is tried on hydromorphone intrathecally. The risks and benefits were described to the patient. His next pump refill is in 64 days however he was explained that if any side effects or complications will arise he needs to contact us immediately. Prior: History of bilateral paintech sacroiliac joint stabilization with fusion. He had significant improvement however he fell in his kitchen and started to experience lot of pain again. He was sent for the x-ray of the pelvis and it appears to be that although both implantation elements are in sacroiliac joints 1 of them got shifted vertical it to the upper portion of the joint and now has a lesser chance to provide enough of the space to form the sacroiliac bridge. Most likely that is why patient started to experience pain again. We decided to treat his pain with addition of the opioids into intrathecal pain pump. For his next pump refill I will fill it up with hydromorphone 150 micro g per mL and bupivacaine 8 milligrams/mL. I will continue to increase concentration of hydromorphone until patient's satisfaction. To temporize his pain level now I will prescribe him short course of Percocet see as below. He is interested in sacroiliac joint fusion now performed by the surgeon with surgical screws. We will find out where this procedure can not be performed and we will refer patient there. He also would like to call [facility] corporate sales representative and ask him to increase stimulation levels on the machine Prior: This patient is very unfortunate gentleman who is suffering from multiple pain generators. He received multiple forms of treatment to concur the existing pain generators pain. He tried multiple sessions of physical therapy in the past and he continues from time to time to return to his home exercise program to help his pain. He tried multiple medications including NSAIDs muscle relaxants and opioids. NSAIDs give him severe side effects. He is very much concerned about addictive properties of opioids. He reports muscle relaxants help his pain minimally if any. He in the past was injected with multiple procedures including medial branch blocks, radiofrequency ablations, facet joint injections, and eventually he was not very satisfied with results of this injections. He was implanted with [employer] spinal cord stimulator which he reports helped his pain radiating into the bilateral lower extremities. He also reported axial back pain aggravated with sitting and flexing forward and on the MRI he was discovered with Modic type changes in the lumbar spine. Intraseptal procedure was performed with good results for pain aggravated with prolonged sitting however pain which is lower than the lumbar spine in the projection of his pelvis actually getting worse background of alleviated lumbar spine pain. To treat this condition he was implanted with intrathecal pain pump however the intrathecal pain pump was not very instrumental to alleviate his pain. He still receives intrathecal pain pump bupivacaine only however reports significant and advanced pain in the projection of the bilateral sacroiliac joints. He had MRI of the lumbar spine which did not demonstrate any red flags and he did have abdominal and pelvic CT scan which did not demonstrate in pelvis any abnormalities which could be suspected as the pain generators related to sacroiliac joint, sacral bones or iliac bones. 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, lumbar region PVD (peripheral vascular disease) Mood disorder On beta ruddy at home Benign essential tremor CVA (cerebral vascular accident) IDDM (insulin dependent diabetes mellitus) Sleep apnea Chronic renal insufficiency Myocardial infarction CHF (congestive heart failure) CAD (coronary artery disease) AAA (abdominal aortic aneurysm) Arrhythmia On anticoagulant therapy Elevated cholesterol HTN (hypertension) History of ischemic cardiomyopathy 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 Surgical History (Updated 09/02/23 @ 09:34 by Nova Harmon RN) Hx of shoulder surgery History of laparoscopic cholecystectomy (12/08/22) History of surgery History of surgery History of PTCA Hx of parathyroidectomy Hx of CABG History of hernia repair Hx of gastric bypass Hx of endoscopy History of colonoscopy Family History Father Hx of congenital heart disease Mother Hx of heat stroke Social History Household Members: None Housing: Apartment Are you a primary health care facility administrator to a significant other at home: No Do you presently have visiting nurse or other home services: 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) Alcohol intake: current Alcohol intake frequency: holidays/special occasions only Comment: counts correct Patient Tobacco Use Status: Former Tobacco user Tobacco use type: Cigarette Second Hand Smoke Exposure: No Review of Systems Const All systems reviewed & are unremarkable except as noted in HPI and below ENT Reports Normal hearing present Neuro Reports Normal hearing present and Denies Abnormal speech present Physical Exam Vital Signs: Last Vital Signs Pulse 85 12/28/23 09:53 Resp 16 12/28/23 09:53 BP 126/72 12/28/23 09:53 Pulse Ox 94 12/28/23 09:53 Oxygen Delivery Method Room Air 12/28/23 09:53 BMI result Body Mass Index 30.6 Const General: cooperative, no acute distress, alert and well groomed Orientation/consciousness: patient oriented x3 HEENT Head: Yes normocephalic and Yes atraumatic Ears: hearing grossly normal bilaterally Eyes General: appearance normal, both eyes and all related structures Eyelids: Yes eyelids normal Pupils: Equal, round and reactive pupils present EOM: EOMs intact bilaterally Neck Neck: Yes normal visual inspection and Yes no JVD Resp Effort & Inspection: normal respiratory effort, able to speak in complete sentences and no audible wheezes Cardio Jugular venous distension: no JVD Back/Spine/Pelvis Other: Tenderness of palpation paraspinal spinal region in the entire spine cervical thoracic and lumbar. SLR is negative with foot dorsiflexion. Flexing forward aggravates the pain. Flexing backwards does not change the pain. James test, Gaenslen test, pelvic compression test, pelvic destruction test, positive on the left as well as on the right. Neuro General: patient oriented x3, moves all extremities and Normal light touch and pain sensation Cranial nerves: Yes Equal, round and reactive pupils present and Yes Normal hearing present Cognition (Neuro): normal cognition Speech: No Abnormal speech present Assessment & Plan Assessment & Plan (1) Chronic left sacroiliac joint pain: Code(s): M53.3 - Sacrococcygeal disorders, not elsewhere classified; G89.29 - Other chronic pain Category: Medical Plan: Change of the medication is as below. Although he lives alone I will prescribe naloxone for him. (2) Sacroiliitis: Code(s): M46.1 - Sacroiliitis, not elsewhere classified Category: Medical (3) Vertebrogenic low back pain: Code(s): M54.51 - Vertebrogenic low back pain Category: Medical (4) Chronic pain syndrome: Code(s): G89.4 - Chronic pain syndrome Category: Medical (5) Poorly controlled type 2 diabetes mellitus: Code(s): E11.65 - Type 2 diabetes mellitus with hyperglycemia Category: Medical Plan Intrathecal pump refill . HE PATIENT CAME TODAY in the office FOR THE CHANGE OF THE MEDICATION IN her PAIN PUMP. The name and date of were verified and informed consent was obtained for the procedure. ?The pump was interrogated and the residual amount of fluid was found to be 4.9 mL. He WAS POSITIONED left lateral decubitus on the bed AND THE AREA OF THE INTRATHECAL PUMP on the right flank WAS PREPPED WITH CHLORAPREP. The fenestrated drape was sterilely applied over the area of the pump. Sterile gloves were worn and of the aspiration system was assembled containing 2 in 22 gauge noncoring needle, the needle was connected to extension tubing which was connected to the 20 cc sterile syringe. The pain pump was palpated under the skin in the patient's right upper flank under the right rib. The needle was inserted through the skin and the central plug of the pain pump and fluid was aspirated. The clear fluid was going into the syringe the total amount of the fluid was 6.1ml. After that a new batch? of medication was obtained which was containing bupivacaine mg per ml. The admixture was made in two 20 cc syringe prepared by [facility] compounding pharmacy. The syringe was connected to the bacterial filter, and then connected to the extension tubing. The new medication comprised of hydromorphone 0.15 milligrams/mL, bupivacaine 8 milligrams/mL in preservative-free normal saline total of 40 mL. Continuous rate of the administration of hydromorphone was chosen to be 10 micro g per day and the patient was given PTM doses 40 micro g every 7 hours 30 minutes to boluses per day. He will contact [employer] or [employer] representatives to activate back his PTM device. Coding Level of Care Code Est Pt Level 3 (71428) Procedure Only Diagnoses Chronic left sacroiliac joint pain M53.3; G89.29 Sacroiliitis M46.1 Vertebrogenic low back pain M54.51 Chronic pain syndrome G89.4 Poorly controlled type 2 diabetes mellitus E11.65
[2023-12-28 09:53] VITALS: BP 126/72; PULSE 85; RESP 16; O2SAT 94; BMI 30.6
== END 2023-12-28 10:02 | disposition home or self-care (01) ==
LOC: HO.PMC 09:11
PROVIDERS: PCP Student in an Organized Health Care Education/Training Program; Visit Provider Anesthesiology
DX: M53.3 Sacrococcygeal disorders, not elsewhere classified (principal); M46.1 Sacroiliitis, not elsewhere classified; M54.51 Vertebrogenic low back pain; G89.4 Chronic pain syndrome; Z45.1 Encounter for adjustment and management of infusion pump
CPT/HCPCS: 95991; 99213

== ENCOUNTER → 2023-12-28 09:10 | Outpatient (BNVA) | payer MEDICARE, MEDICAID, SELFPAY | PROVIDERS: PCP Student in an Organized Health Care Education/Training Program; Visit Provider Anesthesiology | DX: M53.3 Sacrococcygeal disorders, not elsewhere classified (principal); M46.1 Sacroiliitis, not elsewhere classified; M54.51 Vertebrogenic low back pain; G89.4 Chronic pain syndrome; E11.65 Type 2 diabetes mellitus with hyperglycemia | CPT/HCPCS: 99212 ==

== ENCOUNTER 2024-01-02 12:08 | Outpatient (AMB) | payer MEDICARE, MEDICAID, SELFPAY ==
[2024-01-02 12:36] VITALS: BP 130/62; PULSE 72; BMI 30.7
--- NOTE | 2024-01-02 12:36 | A.OFFVIS_ITS ---
Vital Signs 01/02/24 12:36 Height 5 ft 8 in Weight 202 lb BMI 30.7 BP 130/62 Blood Pressure Location Lt brachial Position Sitting Pulse 72 Intake Visit Reasons: discuss ozempic issues Intake Note: Patient in office today in follow up to discuss ozempic issues. CC: Patient c/o constipation, and states that Ozempic gave him pancreatitits, and had to have his gallbladder removed. He also c/o abdominal distension. Full Service Supervisor Required: No Accompanied by: Self / Same As Patient Allergies grass pollen Allergy (Mild, Verified 12/28/23 09:57) unknown tree and shrub pollen Allergy (Mild, Verified 12/28/23 09:57) itchy eyes, sneeze, runny nose No Known Drug Allergies Allergy (Unknown, Verified 01/02/24 12:41) none plastic tape Allergy (Unknown, Uncoded 01/02/24 12:41) irritation HPI HPI discuss ozempic issues: Details: 73 yr old m w hx of sleeve gastrectomy, osteoporosis, HTN< HLP, chronic a-fib, BPH, CAD s/p cabg x4, DELMY< AAA s/p repair, DM, essential tremor, parathyroidism see for f/u RECAP: He has had esophageal spams for years, apparently had work up at [facility], ? had ba swallow and was givne a compounded medication , name unknown finds that hot and cold foods or if eats too fast he gets food not going down, can be painful he gets most days he straightens throat and waits for food to pass down he has minimal heartburn sx he has opiate induced constipation, takes MST 15 mg bid--takes movantik, senna and ? lactulose as needed (tried MOM, not helpful) had colonoscopy at [facility], unsure abt EGD He had EGD 02/22/2019--erosive gastritis, botox injected 200 units at 41,38,35, and 30 cm recommended PPI, high dise due to regurgitation BA SWALLOW 07/2019 sluggish peristalsis, distal esophagus, holdup of ba tablet at [facility] prominent cricopharyngeal sphincter NB: Notes reviewed from [facility], he had tried diltiazem and amlodipine due to fluid retention and was diagnosed with jackhammer esophagus. He was referred to [facility] for eval for short length POEM. Patient also tried compunded CCB in past. last colonoscopy 2014- normal, recommended repeat 10 yrs. EGD with savory dilation done--08/2019-- 18 mm savary dilation, mild esophagitis noted, bx with mild [facility] inflammation and chronic inactive gastritis, chronci reflux changes MBS--11/2019-- no major findings,no special diet recommended MRI brain with chronic infarct, small vessel changes I referred him to [facility] for reassessment and rept manometry, manometry was actually normal! IRP nml, no failed swallows and DCI--nml GED 05/2020--nml Ba swallow-- transient hold up at [facility], went down with water I ordered Ct neck due to his feeling of abn sensation in neck CT with severe degen changes and foraminal narrowing, no masses of neck seen INTERIM: He is waiting for left shoulder surgery he is also getting a device implanted for essential tremor --deep brain stimulation he is worried about his gut, he had ozempic related pancreatitis, and needed GB removed 12/13 he has pain pump and chronic pain from his back he is worried about constipation, and straining he cant take linaclotide as causes explosive diarrhea, tried various dose still has dysphagia EXAM: GENERAL: The patient is well developed and nontoxic. VITAL SIGNS:see workflow HEENT: Nonicteric sclerae, PERRLA, EOMI. Oropharynx clear. Moist mucous membranes. Conjunctivae appear well perfused. No thyroid mass. CHEST: Chest wall is nontender. HEART: Regular rate and rhythm without murmurs. LUNGS: Clear to auscultation bilaterally. ABDOMEN: Soft, positive bowel sounds, nontender, no organomegaly.no flank tenderness SKIN: No rash, no excessive bruising, petechiae, or purpura. NEUROLOGIC: Cranial nerves II-XII intact without motor/sensory deficit. Tremor ++ Psych: normal affect Assessment & Plan (1) Multiple GI issues - dysphagia, and constipation -maybe related to [employer]CH[employer] disease or medication SE or overlap PLAN: 1/ trial of relistor --if no better maybe motegrtiy, or trulance 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, lumbar region PVD (peripheral vascular disease) Mood disorder On beta ruddy at home Benign essential tremor CVA (cerebral vascular accident) IDDM (insulin dependent diabetes mellitus) Sleep apnea Chronic renal insufficiency Myocardial infarction CHF (congestive heart failure) CAD (coronary artery disease) AAA (abdominal aortic aneurysm) Arrhythmia On anticoagulant therapy Elevated cholesterol HTN (hypertension) History of ischemic cardiomyopathy 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 Surgical History Hx of shoulder surgery History of laparoscopic cholecystectomy (12/08/22) History of surgery History of surgery History of PTCA Hx of parathyroidectomy Hx of CABG History of hernia repair Hx of gastric bypass Hx of endoscopy History of colonoscopy Family History Father Hx of congenital heart disease Mother Hx of heat stroke Social History Household Members: None Housing: Apartment Are you a primary reproductive healthcare assistant to a significant other at home: No Do you presently have visiting nurse or other home services: Yes (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) Alcohol intake: current Alcohol intake frequency: holidays/special occasions only Comment: counts correct Patient Tobacco Use Status: Former Tobacco user Tobacco use type: Cigarette Second Hand Smoke Exposure: No Physical Exam Vital Signs: Last Vital Signs Pulse 72 01/02/24 12:36 BP 130/62 01/02/24 12:36 BMI result Body Mass Index 30.7 Assessment & Plan Assessment & Plan (1) Constipation by delayed colonic transit: Code(s): K59.01 - Slow transit constipation Category: Medical Plan: see above Medications: New methylnaltrexone (Relistor) 450 mg (3 x 150 mg) PO DAILY 90 tabs 1RF Coding Level of Care Code Est Pt Level 3 (44235) Diagnoses Constipation by delayed colonic transit K59.01
== END 2024-01-02 13:04 | disposition home or self-care (01) ==
PROVIDERS: PCP Student in an Organized Health Care Education/Training Program; Visit Provider Internal Medicine Gastroenterology
DX: K59.01 Slow transit constipation (principal)
CPT/HCPCS: 99213

== ENCOUNTER → 2024-01-02 12:08 | Outpatient (BNVA) | payer MEDICARE, MEDICAID, SELFPAY | PROVIDERS: PCP Student in an Organized Health Care Education/Training Program; Visit Provider Internal Medicine Gastroenterology | DX: M53.3 Sacrococcygeal disorders, not elsewhere classified (principal); M54.51 Vertebrogenic low back pain; M46.1 Sacroiliitis, not elsewhere classified; G89.4 Chronic pain syndrome; E11.65 Type 2 diabetes mellitus with hyperglycemia; K59.01 Slow transit constipation; Z45.1 Encounter for adjustment and management of infusion pump; Z79.891 Long term (current) use of opiate analgesic; Z90.49 Acquired absence of other specified parts of digestive tract; Z79.899 Other long term (current) drug therapy | CPT/HCPCS: 99212 ==

== ENCOUNTER 2024-01-02 13:38 | Outpatient (AMB) | payer MEDICARE, MEDICAID, SELFPAY ==
--- NOTE | 2024-01-02 13:39 | A.OFFVIS_ITS ---
Vital Signs 01/02/24 13:46 Height 5 ft 8 in Weight 203 lb BMI 30.9 BP 140/79 H Blood Pressure Location Rt brachial Position Sitting Pulse 73 Pulse Source Pulse Oximeter Pulse Oximetry (%) 98 Oxygen Delivery Method Room Air Intake Visit Reasons: questions about PTM Intake Note: Pain today 05/31 Floodplain Manager Required: No Accompanied by: Self / Same As Patient Allergies grass pollen Allergy (Mild, Verified 01/02/24 13:47) unknown tree and shrub pollen Allergy (Mild, Verified 01/02/24 13:47) itchy eyes, sneeze, runny nose No Known Drug Allergies Allergy (Unknown, Verified 01/02/24 13:47) none plastic tape Allergy (Unknown, Uncoded 01/02/24 12:41) irritation HPI Comments Details: Malik is in my office today to perform intrathecal pain pump adjustment. He reported that on 10 micro g of hydromorphone added to minimal amount of bupivacaine he reports 50% pain improvement. I decided just to increase the dose of the hydromorphone to 15 micro g a day. This will be very minimal elevation of the dose although it is about 50% increase. I decided against flex dose he had in the past because he lives alone and no one will be able to watch after him when flex doses will be administered. He reports that he can not administer himself intrathecal boluses on PTM device because of his severe tremor. We decided that I will see him in 2 weeks. Prior: History of bilateral paintech sacroiliac joint stabilization with fusion. He had significant improvement however he fell in his kitchen and started to experience lot of pain again. He was sent for the x-ray of the pelvis and it appears to be that although both implantation elements are in sacroiliac joints 1 of them got shifted vertical it to the upper portion of the joint and now has a lesser chance to provide enough of the space to form the sacroiliac bridge. Most likely that is why patient started to experience pain again. We decided to treat his pain with addition of the opioids into intrathecal pain pump. For his next pump refill I will fill it up with hydromorphone 150 micro g per mL and bupivacaine 8 milligrams/mL. I will continue to increase concentration of hydromorphone until patient's satisfaction. To temporize his pain level now I will prescribe him short course of Percocet see as below. He is interested in sacroiliac joint fusion now performed by the surgeon with surgical screws. We will find out where this procedure can not be performed and we will refer patient there. He also would like to call [employer] litigation claim representative and ask him to increase stimulation levels on the machine Prior: This patient is very unfortunate gentleman who is suffering from multiple pain generators. He received multiple forms of treatment to concur the existing pain generators pain. He tried multiple sessions of physical therapy in the past and he continues from time to time to return to his home exercise program to help his pain. He tried multiple medications including NSAIDs muscle relaxants and opioids. NSAIDs give him severe side effects. He is very much concerned about addictive properties of opioids. He reports muscle relaxants help his pain minimally if any. He in the past was injected with multiple procedures including medial branch blocks, radiofrequency ablations, facet joint injections, and eventually he was not very satisfied with results of this injections. He was implanted with Nevro spinal cord stimulator which he reports helped his pain radiating into the bilateral lower extremities. He also reported axial back pain aggravated with sitting and flexing forward and on the MRI he was discovered with Modic type changes in the lumbar spine. Intraseptal procedure was performed with good results for pain aggravated with prolonged sitting however pain which is lower than the lumbar spine in the projection of his pelvis actually getting worse background of alleviated lumbar spine pain. To treat this condition he was implanted with intrathecal pain pump however the intrathecal pain pump was not very instrumental to alleviate his pain. He still receives intrathecal pain pump bupivacaine only however reports significant and advanced pain in the projection of the bilateral sacroiliac joints. He had MRI of the lumbar spine which did not demonstrate any red flags and he did have abdominal and pelvic CT scan which did not demonstrate in pelvis any abnormalities which could be suspected as the pain generators related to sacroiliac joint, sacral bones or iliac bones. [facility] Medical History Rheumatic fever Cardiac arrest Disc degeneration, 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, lumbar region PVD (peripheral vascular disease) Mood disorder On beta ruddy at home Benign essential tremor CVA (cerebral vascular accident) IDDM (insulin dependent diabetes mellitus) Sleep apnea Chronic renal insufficiency Myocardial infarction CHF (congestive heart failure) CAD (coronary artery disease) AAA (abdominal aortic aneurysm) Arrhythmia On anticoagulant therapy Elevated cholesterol HTN (hypertension) History of ischemic cardiomyopathy 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 Surgical History Hx of shoulder surgery History of laparoscopic cholecystectomy (12/08/22) History of surgery History of surgery History of PTCA Hx of parathyroidectomy Hx of CABG History of hernia repair Hx of gastric bypass Hx of endoscopy History of colonoscopy Family History Father Hx of congenital heart disease Mother Hx of heat stroke Social History Household Members: None Housing: Apartment Are you a primary chronic care nurse to a significant other at home: No Do you presently have visiting nurse or other home services: Yes (SPIRAL BINDER 2 hours per week) Alcohol intake: current Alcohol intake frequency: holidays/special occasions only Comment: counts correct Patient Tobacco Use Status: Former Tobacco user Tobacco use type: Cigarette Second Hand Smoke Exposure: No Review of Systems Const All systems reviewed & are unremarkable except as noted in HPI and below ENT Reports Normal hearing present Neuro Reports Normal hearing present and Denies Abnormal speech present Physical Exam Vital Signs: Last Vital Signs Pulse 73 01/02/24 13:46 BP 140/79 H 01/02/24 13:46 Pulse Ox 98 01/02/24 13:46 Oxygen Delivery Method Room Air 01/02/24 13:46 BMI result Body Mass Index 30.9 Const General: cooperative, no acute distress, alert and well groomed Orientation/consciousness: patient oriented x3 HEENT Head: Yes normocephalic and Yes atraumatic Ears: hearing grossly normal bilaterally Eyes General: appearance normal, both eyes and all related structures Eyelids: Yes eyelids normal Pupils: Equal, round and reactive pupils present EOM: EOMs intact bilaterally Neck Neck: Yes normal visual inspection and Yes no JVD Resp Effort & Inspection: normal respiratory effort, able to speak in complete sentences and no audible wheezes Cardio Jugular venous distension: no JVD Back/Spine/Pelvis Other: Tenderness of palpation paraspinal spinal region in the entire spine cervical thoracic and lumbar. SLR is negative with foot dorsiflexion. Flexing forward aggravates the pain. Flexing backwards does not change the pain. James test, Gaenslen test, pelvic compression test, pelvic destruction test, positive on the left as well as on the right. Neuro General: patient oriented x3, moves all extremities and Normal light touch and pain sensation Cranial nerves: Yes Equal, round and reactive pupils present and Yes Normal hearing present Cognition (Neuro): normal cognition Speech: No Abnormal speech present Assessment & Plan Assessment & Plan (1) Chronic left sacroiliac joint pain: Code(s): M53.3 - Sacrococcygeal disorders, not elsewhere classified; G89.29 - Other chronic pain Category: Medical Plan: Change of the medication is as below. He has naltrexone at home. I will see him in 2 weeks. (2) Sacroiliitis: Code(s): M46.1 - Sacroiliitis, not elsewhere classified Category: Medical (3) Vertebrogenic low back pain: Code(s): M54.51 - Vertebrogenic low back pain Category: Medical (4) Chronic pain syndrome: Code(s): G89.4 - Chronic pain syndrome Category: Medical (5) Poorly controlled type 2 diabetes mellitus: Code(s): E11.65 - Type 2 diabetes mellitus with hyperglycemia Category: Medical Plan Intrathecal pain pump adjustment. Intrathecal pain pump was read. In decision was made to not to go back to PTM or flex dose this patient lives alone and no one can assess his condition. The continuous dose was elevated from 10 micro g a day to 15 micro g a day of hydromorphone with corresponding dose of bupivacaine. Coding Level of Care Code Est Pt Level 3 (35027) Procedure Only Diagnoses Chronic left sacroiliac joint pain M53.3; G89.29 Sacroiliitis M46.1 Vertebrogenic low back pain M54.51 Chronic pain syndrome G89.4 Poorly controlled type 2 diabetes mellitus E11.65
[2024-01-02 13:46] VITALS: BP 140/79; PULSE 73; O2SAT 98; BMI 30.9
== END 2024-01-02 14:15 | disposition home or self-care (01) ==
PROVIDERS: PCP Student in an Organized Health Care Education/Training Program; Visit Provider Anesthesiology
DX: M53.3 Sacrococcygeal disorders, not elsewhere classified (principal); G89.29 Other chronic pain; M46.1 Sacroiliitis, not elsewhere classified; M54.51 Vertebrogenic low back pain; G89.4 Chronic pain syndrome; E11.65 Type 2 diabetes mellitus with hyperglycemia; Z45.1 Encounter for adjustment and management of infusion pump
CPT/HCPCS: 95991; 99213

== ENCOUNTER 2024-01-18 13:24 | Outpatient (AMB) | payer MEDICARE, MEDICAID, SELFPAY ==
[2024-01-18 13:38] VITALS: BP 137/69; PULSE 80; O2SAT 95
--- NOTE | 2024-01-18 13:38 | MHC.OFFVIS ---
Vital Signs 01/18/24 13:38 Weight 198 lb BP 137/69 Blood Pressure Location Lt brachial Position Sitting Pulse 80 Pulse Source Pulse Oximeter Pulse Oximetry (%) 95 Oxygen Delivery Method Room Air Intake Visit Reasons: 2 Week Follow Up Allergies grass pollen Allergy (Mild, Verified 01/02/24 13:47) unknown tree and shrub pollen Allergy (Mild, Verified 01/02/24 13:47) itchy eyes, sneeze, runny nose No Known Drug Allergies Allergy (Unknown, Verified 01/02/24 13:47) none plastic tape Allergy (Unknown, Uncoded 01/02/24 12:41) irritation HPI Comments Details: Malik is in my office today to perform intrathecal pain pump adjustment. He continues to endorse very good pain relief on 15 micro g a day of hydromorphone. However he states that when he gets up in the morning he experiences severe lumbar discomfort which prevents him to do his morning chores. He requested me to change the nature of the infusion to the flex infusion with administration of 15 micro g hydromorphone at 07:30 in the morning of the period of 15 minutes with corresponding dose of bupivacaine. We also agreed that I will send him for physical therapy for the treatment of the pain syndrome in the neck. In the past I was performing injection for his neck, he also found physical therapy in the past very helpful for his neck pain. Prior: History of bilateral paintech sacroiliac joint stabilization with fusion. He had significant improvement however he fell in his kitchen and started to experience lot of pain again. He was sent for the x-ray of the pelvis and it appears to be that although both implantation elements are in sacroiliac joints 1 of them got shifted vertical it to the upper portion of the joint and now has a lesser chance to provide enough of the space to form the sacroiliac bridge. Most likely that is why patient started to experience pain again. We decided to treat his pain with addition of the opioids into intrathecal pain pump. For his next pump refill I will fill it up with hydromorphone 150 micro g per mL and bupivacaine 8 milligrams/mL. I will continue to increase concentration of hydromorphone until patient's satisfaction. To temporize his pain level now I will prescribe him short course of Percocet see as below. He is interested in sacroiliac joint fusion now performed by the surgeon with surgical screws. We will find out where this procedure can not be performed and we will refer patient there. He also would like to call [employer] sales representative and ask him to increase stimulation levels on the machine Prior: This patient is very unfortunate gentleman who is suffering from multiple pain generators. He received multiple forms of treatment to concur the existing pain generators pain. He tried multiple sessions of physical therapy in the past and he continues from time to time to return to his home exercise program to help his pain. He tried multiple medications including NSAIDs muscle relaxants and opioids. NSAIDs give him severe side effects. He is very much concerned about addictive properties of opioids. He reports muscle relaxants help his pain minimally if any. He in the past was injected with multiple procedures including medial branch blocks, radiofrequency ablations, facet joint injections, and eventually he was not very satisfied with results of this injections. He was implanted with Nevro spinal cord stimulator which he reports helped his pain radiating into the bilateral lower extremities. He also reported axial back pain aggravated with sitting and flexing forward and on the MRI he was discovered with Modic type changes in the lumbar spine. Intraseptal procedure was performed with good results for pain aggravated with prolonged sitting however pain which is lower than the lumbar spine in the projection of his pelvis actually getting worse background of alleviated lumbar spine pain. To treat this condition he was implanted with intrathecal pain pump however the intrathecal pain pump was not very instrumental to alleviate his pain. He still receives intrathecal pain pump bupivacaine only however reports significant and advanced pain in the projection of the bilateral sacroiliac joints. He had MRI of the lumbar spine which did not demonstrate any red flags and he did have abdominal and pelvic CT scan which did not demonstrate in pelvis any abnormalities which could be suspected as the pain generators related to sacroiliac joint, sacral bones or iliac bones. 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, lumbar region PVD (peripheral vascular disease) Mood disorder On beta ruddy at home Benign essential tremor CVA (cerebral vascular accident) IDDM (insulin dependent diabetes mellitus) Sleep apnea Chronic renal insufficiency Myocardial infarction CHF (congestive heart failure) CAD (coronary artery disease) AAA (abdominal aortic aneurysm) Arrhythmia On anticoagulant therapy Elevated cholesterol HTN (hypertension) History of ischemic cardiomyopathy 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 Surgical History Hx of shoulder surgery History of laparoscopic cholecystectomy (12/08/22) History of surgery History of surgery History of PTCA Hx of parathyroidectomy Hx of CABG History of hernia repair Hx of gastric bypass Hx of endoscopy History of colonoscopy Family History Father Hx of congenital heart disease Mother Hx of heat stroke Social History Household Members: None Housing: Apartment Are you a primary healthcare administrative assistant to a significant other at home: No Do you presently have visiting nurse or other home services: Yes ([employer] 2 hours per week) Alcohol intake: current Alcohol intake frequency: holidays/special occasions only Comment: counts correct Patient Tobacco Use Status: Former Tobacco user Tobacco use type: Cigarette Second Hand Smoke Exposure: No Review of Systems Const All systems reviewed & are unremarkable except as noted in HPI and below ENT Reports Normal hearing present Neuro Reports Normal hearing present and Denies Abnormal speech present Physical Exam Vital Signs: Last Vital Signs Pulse 80 01/18/24 13:38 BP 137/69 01/18/24 13:38 Pulse Ox 95 01/18/24 13:38 Oxygen Delivery Method Room Air 01/18/24 13:38 Const General: cooperative, no acute distress, alert and well groomed Orientation/consciousness: patient oriented x3 HEENT Head: Yes normocephalic and Yes atraumatic Ears: hearing grossly normal bilaterally Eyes General: appearance normal, both eyes and all related structures Eyelids: Yes eyelids normal Pupils: Equal, round and reactive pupils present EOM: EOMs intact bilaterally Neck Neck: Yes normal visual inspection and Yes no JVD Resp Effort & Inspection: normal respiratory effort, able to speak in complete sentences and no audible wheezes Cardio Jugular venous distension: no JVD Back/Spine/Pelvis Other: Tenderness of palpation paraspinal spinal region in the entire spine cervical thoracic and lumbar. SLR is negative with foot dorsiflexion. Flexing forward aggravates the pain. Flexing backwards does not change the pain. James test, Gaenslen test, pelvic compression test, pelvic destruction test, positive on the left as well as on the right. Neuro General: patient oriented x3, moves all extremities and Normal light touch and pain sensation Cranial nerves: Yes Equal, round and reactive pupils present and Yes Normal hearing present Cognition (Neuro): normal cognition Speech: No Abnormal speech present Assessment & Plan Assessment & Plan (1) Myofascial pain syndrome: Code(s): M79.18 - Myalgia, other site Category: Medical (2) Chronic left sacroiliac joint pain: Code(s): M53.3 - Sacrococcygeal disorders, not elsewhere classified; G89.29 - Other chronic pain Category: Medical Plan: Change of the medication is as below. He has naloxone at home. Physical therapy order will be sent for recalls via myofascial pain syndrome (3) Sacroiliitis: Code(s): M46.1 - Sacroiliitis, not elsewhere classified Category: Medical (4) Vertebrogenic low back pain: Code(s): M54.51 - Vertebrogenic low back pain Category: Medical (5) Chronic pain syndrome: Code(s): G89.4 - Chronic pain syndrome Category: Medical (6) Poorly controlled type 2 diabetes mellitus: Code(s): E11.65 - Type 2 diabetes mellitus with hyperglycemia Category: Medical Plan Intrathecal pain pump adjustment. Intrathecal pain pump was read. The decision was made to change the medication to flex dose with 1 application of the 15 micro g of the hydromorphone at 7 30 a.m. as well as continuous 15 micro g of hydromorphone over the course of 24 hours. Orders: Orders PT Evaluation and Treatment 01/18/24 M79.18 - Myalgia, other site Coding Level of Care Code Est Pt Level 3 (20416) Procedure Only Diagnoses Myofascial pain syndrome M79.18 Chronic left sacroiliac joint pain M53.3; G89.29 Sacroiliitis M46.1 Vertebrogenic low back pain M54.51 Chronic pain syndrome G89.4 Poorly controlled type 2 diabetes mellitus E11.65
== END 2024-01-18 14:02 | disposition home or self-care (01) ==
PROVIDERS: PCP Student in an Organized Health Care Education/Training Program; Visit Provider Anesthesiology
DX: M79.18 Myalgia, other site (principal); M53.3 Sacrococcygeal disorders, not elsewhere classified; M46.1 Sacroiliitis, not elsewhere classified; M54.51 Vertebrogenic low back pain; Z45.1 Encounter for adjustment and management of infusion pump; G89.4 Chronic pain syndrome; E11.65 Type 2 diabetes mellitus with hyperglycemia
CPT/HCPCS: 62368; 99213

== ENCOUNTER → 2024-01-18 13:24 | Outpatient (BNVA) | payer MEDICARE, MEDICAID, SELFPAY | PROVIDERS: PCP Student in an Organized Health Care Education/Training Program; Visit Provider Anesthesiology | DX: Z45.1 Encounter for adjustment and management of infusion pump (principal); F11.20 Opioid dependence, uncomplicated; M79.18 Myalgia, other site; M53.3 Sacrococcygeal disorders, not elsewhere classified; M46.1 Sacroiliitis, not elsewhere classified; M54.51 Vertebrogenic low back pain; E11.65 Type 2 diabetes mellitus with hyperglycemia; G89.29 Other chronic pain | CPT/HCPCS: 62368; 99212 ==

== ENCOUNTER 2024-02-02 09:55 | Outpatient (REF) | payer MEDICARE, MEDICAID, SELFPAY ==
--- OUTSIDE RECORDS SUMMARY | 2024-02-02 10:00 | XMS_ITS | Continuity of Care Document ---
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 Name Role Phone Bea Lacey MD Primary Care Physician Encounter [facility] AC[facility] R [id number] Date(s): 01/06/24 - 01/13/24 [facility] [address] [id number] Attending Physician: Get Marcos MD Encounter Type: Office Visit Allergies, Adverse Reactions, Alerts No Known Medication Allergies Substance Criticality Severity Reaction Reaction Severity Status Grass Unable to assess criticality Intermittent watery eyes/runny nose Active Tape rash Active Immunizations Given and Recorded Vaccine Date Status Refusal Reason [id number] 12y+ bivalent booster vax 12/08/21 Recorded SARS-CoV-2 (COVID-19) mRNA BNT-162b2 vac 12/24/20 Recorded SARS-CoV-2 (COVID-19) mRNA-1273 vaccine 05/27/20 R ecorded SARS-CoV-2 (COVID-19) mRNA-1273 vaccine 04/29/20 R ecorded pneumococcal 23-valent vaccine 04/26/12 Given influenza virus vaccine, inactivated 04/26/12 Give n Pneumococcal Vaccine (oldterm) 1 01/01/06 Given 1Result Comment: lot # [id number] EXP 08/20/06 PT INFO 09/04/04 Medications acetaminophen-oxycodone 325 mg-7.5 mg oral tablet 32 each, 0 Refill(s), TAKE ONE TABLET EVERY 6 HOURS NEEDED FOR PAIN, 0 Refills, 01/06/24 1:16:00PM EST, Partial fill upon patient request if the prescription is for a schedule II opioid drug. Start Date: 01/06/24 Status: Ordered Repeat number: 1 aspirin 81 mg oral capsule 1 capsule = 81 mg, By Mouth, Daily in AM, 0 Refills, Maintenance, 04/26/22 8:31:00 AM EST, Partial fill upon patient request if the prescription is for a schedule II opioid drug. Start Date: 04/26/22 Status: Ordered Repeat number: 1 baclofen 20 mg oral tablet 20 mg, 1, tablet, By Mouth, 3 times a day, PRN, Muscle Spasms/Pain Start Date: 04/07/20 Status: Ordered Repeat number: 1 buPROPion 300 mg/24 hours (XL) oral tablet, extended release 1 tablet = 300 mg, By Mouth, Daily in AM, # 30 tablet, 0 Refills, Maintenance, 08/04/23 10:14:00 AM EDT, ER Tablet, Partial fill upon patient request if the prescription is for a schedule II opioid drug. Start Date: 08/04/23 Status: Ordered Quantity: 30.0 Unit: tablet Repeat number: 1 calcium (as carbonate)-vitamin D 500 mg-100 intl units oral tablet, chewable 2 tablet, By Mouth, 2 times a day, # 60 tablet, 0 Refills, Maintenance, 04/26/22 8:34:00 AM EST, ChewTablet, Partial fill upon patient request if the prescription is for a schedule II opioid drug. Start Date: 04/26/22 Status: Ordered Quantity: 60.0 Unit: tablet Repeat number: 1 cephalexin monohydrate 500 mg oral capsule TAKE ONE CAPSULE THREE TIMES DAILY FOR 10 DAYS Start Date: 11/29/23 Status: Ordered Repeat number: 1 cetirizine 10 mg oral tablet 1 tablet = 10 mg, By Mouth, Daily before lunch, # 30 tablet, 0 Refills, Maintenance, 03/10/22 12:31:00 PM EST, Tablet, Partial fill upon patient request if the prescription is for a schedule II opioiddrug. Start Date: 03/10/22 Status: Ordered Quantity: 30.0 Unit: tablet Repeat number: 1 clonazePAM 0.5 mg oral tablet 1 tablet = 0.5 mg, By Mouth, 3 times a day Start Date: 12/12/20 Status: Ordered Repeat number: 1 Compression- Lower Extremity (Knee High) See Instructions, # 2 each, Refills 0, Tot. Refills 0, Maintenance, use daily during waking hours DX HFpEF Heart disease, 11/06/20 2:01:00 PM EDT, Supply, 173, cm, 10/08/20 14:38:00 EDT, Height, 102.5, kg, 04/07/20 17:37:00 EST, Dry Weight Start Date: 11/06/20 Status: Ordered Quantity: 2.0 Unit: each Repeat number: 1 Compression- Lower Extremity (Knee High) See Instructions, # 2 each, Refills 1, Tot. Refills 1, Maintenance, Wear daily during waking hours DX Heart Disease HFpEF, 11/06/20 2:01:00 PM EDT, Supply, 173, cm, 10/08/20 14:38:00 EDT, Height, 102.5, kg, 04/07/20 17:37:00 EST, Dry Weight Start Date: 11/06/20 Status: Ordered Quantity: 2.0 Unit: each Repeat number: 2 CPAP Machine AutoCPAP 9-14, Maintenance, [employer], 10/05/18 6:32:06 PM EDT, Compound Start Date: 10/05/18 Status: Ordered Repeat number: 1 Crestor 40 mg oral tablet 1 tablet = 40 mg, By Mouth, Daily at bedtime, 0 Refills, Maintenance, 10/15/13 8:43:06 AM EDT Start Date: 10/15/13 Status: Ordered Repeat number: 1 dapagliflozin 10 mg oral tablet 1 tablet = 10 mg, By Mouth, Daily, # 30 tablet, 11 Refills, Maintenance, 12/13/23 12:27:00 PM EDT, [facility], Partial fill upon patient request if the prescription is for a schedule II opioid drug., 172.72, cm, 12/12/23 13:09:00 EDT, Height, 97.6, kg, 12/08/23 15:42:00 EDT, Dry Weight Start Date: 12/13/23 Status: Ordered Quantity: 30.0 Unit: tablet Repeat number: 12 docusate sodium 100 mg oral capsule 100 mg, 1, capsule, By Mouth, 2 times a day, Maintenance, 04/07/20 6:57:00 PM EST, Partial fill uponpatient request if the prescription is for a schedule II opioid drug. Start Date: 04/07/20 Status: Ordered Repeat number: 1 eplerenone 25 mg oral tablet See Instructions, TAKE ONE TABLET DAILY AT NOON, # 90 tablet, 1 Refills, Maintenance, 08/03/23 8:39:00 AM EDT, [facility], 172.71, cm, 07/07/23 15:48:00 EDT, Height, 106.2, kg, 03/10/22 16:44:00 EST, Dry Weight Start Date: 08/03/23 Status: Ordered Quantity: 90.0 Unit: tablet Repeat number: 1 esomeprazole 40 mg oral enteric coated capsule TAKE ONE CAPSULE TWICE DAILY IN THE MORNING AND AT BEDTIME Start Date: 12/28/22 Status: Ordered Repeat number: 1 famotidine 40 mg oral tablet 1 tablet = 40 mg, By Mouth, Daily at bedtime, # 30 tablet, 0 Refills, Maintenance, 03/10/22 12:27:00PM EST, Tablet, Partial fill upon patient request if the prescription is for a schedule II opioid drug. Start Date: 03/10/22 Status: Ordered Quantity: 30.0 Unit: tablet Repeat number: 1 Farxiga 10 mg oral tablet TAKE ONE TABLET EVERY MORNING Start Date: 12/16/23 Status: Ordered Repeat number: 1 finasteride 5 mg oral tablet 1 tablet = 5 mg, By Mouth, Daily at bedtime, Maintenance, 04/07/20 6:59:00 PM EST, Tablet, Partial fill upon patient request if the prescription is for a schedule II opioid drug. Start Date: 04/07/20 Status: Ordered Repeat number: 1 Freestyle Lite Test Strips 3 times a day, Maintenance, 04/07/20 7:08:00 PM EST, Supply Start Date: 04/07/20 Status: Ordered Repeat number: 1 hydrOXYzine pamoate 25 mg oral capsule 1 capsule = 25 mg, By Mouth, 2 times a day, PRN as needed for anxiety, AT NOON AND IN THE EVENING Start Date: 04/07/20 Status: Ordered Repeat number: 1 isosorbide mononitrate 60 mg oral tablet, extended release 2 tablet, By Mouth, Daily in AM, # 180 tablet, 3 Refills, Maintenance, 05/05/23 11:08:00 AM EDT, [facility], 172.71, cm, 04/22/23 15:06:00 EST, Height, 106.2, kg, 03/10/22 16:44:00 EST, Dry Weight Start Date: 05/05/23 Status: Ordered Quantity: 180.0 Unit: tablet Repeat number: 1 Linzess 145 mcg oral capsule 1 capsule = 145 mcg, By Mouth, Every other day, in am Start Date: 05/17/23 Status: Ordered Repeat number: 1 Linzess 72 mcg oral capsule 1 capsule = 72 mcg, By Mouth, Daily in AM, TAKE ONE CAPSULE DAILY BEFORE BREAKFAST, DO NOT BREAK, CRUSH, DISSOLVE OR CHEW Start Date: 06/06/23 Status: Ordered Repeat number: 1 lisinopril 10 mg oral tablet 10 mg, 1, tablet, By Mouth, Daily, # 90 tablet, Refills 4, Tot. Refills 4, Maintenance, 12/12/23 2:14:00 PM EDT, Route to Pharmacy Electronically, [facility], Partial fill upon patient request if the prescription is for a schedule II opioid drug., 172.72, cm, 12/12/23 13:09:00 EDT, Height, 97.6, kg, 12/08/23 15:42:00 EDT, Dry Weight Start Date: 12/12/23 Status: Ordered Quantity: 90.0 Unit: tablet Repeat number: 5 Melatonin = 10 mg, By Mouth, Daily at bedtime, 0 Refills, Maintenance, 04/21/21 3:00:00 PM EST, Partial fill upon patient request if the prescription is for a schedule II opioid drug. Start Date: 04/21/21 Status: Ordered Repeat number: 1 mirtazapine 7.5 mg oral tablet 1 tablet = 7.5 mg, By Mouth, Daily at bedtime, 0 Refills, Maintenance, 04/21/21 3:01:00 PM EST, Partial fill upon patient request if the prescription is for a schedule II opioid drug. Start Date: 04/21/21 Status: Ordered Repeat number: 1 multivitamin Vitamin B Complex with C oral tablet, extended release 0.5 tablet, By Mouth, 2 times a day, # 30 tablet, 0 Refills, Maintenance, 08/04/23 9:42:00 AM EDT, ER Tablet, Partial fill upon patient request if the prescription is for a schedule II opioid drug. Start Date: 08/04/23 Status: Ordered Quantity: 30.0 Unit: tablet Repeat number: 1 naloxone 4 mg/0.1 mL nasal spray 2 sprays, 0 Refill(s), 0 Refills, 01/06/24 1:16:00 PM EST, Partial fill upon patient request if theprescription is for a schedule II opioid drug. Start Date: 01/06/24 Status: Ordered Repeat number: 1 nitroglycerin 0.4 mg sublingual tablet = 0.4 mg, Sublingual, Every 5 minutes, PRN Chest Pain, as needed not to exceed 3 doses/15 min--if pain persists, seek medical attention, # 100 tablet, 3 Refills, Maintenance, 11/02/22 4:26:00 PM EDT, Tablet, [facility], Partial fill upon patient request if the prescription is for a schedule II opioid drug., 172.71, cm, 11/02/22 15:12:00 EDT, Height, 106.2, kg, 03/10/22 16:44:00 EST, Dry Weight Start Date: 11/02/22 Status: Ordered Quantity: 100.0 Unit: tablet Repeat number: 4 oxyCODONE 5 mg oral tablet 5 mg, 1, tablet, By Mouth, Every 6 hours, PRN, # 10 tablet, Refills 0, Tot. Refills 0, Maintenance,for pain, 12/09/23 10:27:00 AM EDT, Route to Pharmacy Electronically, [facility], Partial fill upon patient request if the prescription is for a schedule II opioid drug., 172.72, cm, 12/09/23 8:03:00 EDT, Height, 97.6, kg, 12/08/23 15:42:00 EDT, Dry Weight Start Date: 12/09/23 Status: Ordered Quantity: 10.0 Unit: tablet Repeat number: 1 Pen [place], 29 G x 12.7 mm BD Ultra Fine See Instructions, # 100 each, Refills 5, Tot. Refills 5, Maintenance, use as directed for Type 2 Diabetes Mellitus, 08/15/18 1:48:04 PM EDT, Compound Start Date: 08/15/18 Stop Date: 02/11/19 Status: Ordered Quantity: 100.0 Unit: each Repeat number: 6 pilocarpine 5 mg oral tablet 1 tablet = 5 mg, By Mouth, 2 times a day, # 180 tablet, 0 Refills, Maintenance, 03/10/22 12:28:00 PMEST, Tablet, Partial fill upon patient request if the prescription is for a schedule II opioid drug. Start Date: 03/10/22 Status: Ordered Quantity: 180.0 Unit: tablet Repeat number: 1 prazosin 5 mg oral capsule 5 mg, 1, capsule, By Mouth, Daily at bedtime, Refills 0, Maintenance, 04/21/21 3:01:00 PM EST, Partial fill upon patient request if the prescription is for a schedule II opioid drug. Start Date: 04/21/21 Status: Ordered Repeat number: 1 primidone 250 mg oral tablet 500 mg, 2, tablet, By Mouth, 2 times a day, Refills 0, Maintenance, 03/10/22 12:29:00 PM EST, Partial fill upon patient request if the prescription is for a schedule II opioid drug. Start Date: 03/10/22 Status: Ordered Repeat number: 1 pseudoephedrine 120 mg oral tablet, extended release 60 each, 0 Refill(s), TAKE ONE TABLET EVERY TWELVE HOURS, 0 Refills, 01/06/24 1:16:00 PM EST, Partial fill upon patient request if the prescription is for a schedule II opioid drug. Start Date: 01/06/24 Status: Ordered Repeat number: 1 rosuvastatin 40 mg oral tablet 30 each, 0 Refill(s), TAKE ONE TABLET EVERY NIGHT AT BEDTIME, 0 Refills, 01/06/24 1:16:00 PM EST, Partial fill upon patient request if the prescription is for a schedule II opioid drug. Start Date: 01/06/24 Status: Ordered Repeat number: 1 SSD 1% cream Apply topically to nail bed daily Start Date: 11/29/23 Status: Ordered Repeat number: 1 Sucralfate = 1 Gm, By Mouth, 2 times a day, 0 Refills, Maintenance, 12/04/21 10:11:00 AM EDT, Partial fill upon patient request if the prescription is for a schedule II opioid drug. Start Date: 12/04/21 Status: Ordered Repeat number: 1 sucralfate 1 gm oral tablet 60 each, 0 Refill(s), TAKE ONE TABLET TWICE DAILY IN THE MORNING AND AT BEDTIME ON AN EMPTY STOMACH, Refills 0, 01/06/24 1:16:00 PM EST, Partial fill upon patient request if the prescription is for aschedule II opioid drug. Start Date: 01/06/24 Status: Ordered Repeat number: 1 SunMark ClearLax oral powder for reconstitution = 17 Gm, By Mouth, Daily, PRN as needed, dissolve in water or juice Start Date: 04/07/20 Status: Ordered Repeat number: 1 tamsulosin 0.4 mg oral capsule See Instructions, 1 capsule By Mouth twice daily at noon and bedtime, Refills 0, Maintenance, 04/28/16 7:50:36 AM EST Start Date: 04/28/16 Status: Ordered Repeat number: 1 terbinafine 250 mg oral tablet 30 each, 0 Refill(s), TAKE ONE TABLET BY MOUTH EVERY DAY, 0 Refills, 01/06/24 1:17:00 PM EST, Partial fill upon patient request if the prescription is for a schedule II opioid drug. Start Date: 01/06/24 Status: Ordered Repeat number: 1 torsemide 10 mg oral tablet 12 each, 0 Refill(s), TAKE TWO TABLETS (20mg's) TWICE DAILY FOR THREE DAYS, 0 Refills, 01/06/24 1:16:00 PM EST, Partial fill upon patient request if the prescription is for a schedule II opioid drug. Start Date: 01/06/24 Status: Ordered Repeat number: 1 torsemide 20 mg oral tablet 1 tablet, By Mouth, Daily in AM, # 90 tablet, 1 Refills, Maintenance, 09/05/23 12:02:00 PM EDT, [facility], 172.71, cm, 08/12/23 13:11:00 EDT, Height, 96.8, kg, 08/09/23 15:03:00 EDT, Dry Weight Start Date: 09/05/23 Status: Ordered Quantity: 90.0 Unit: tablet Repeat number: 1 TRUEplus 3.75 g oral tablet, chewable 40 each, 0 Refill(s), Chew 4 tablets (16 g) if needed for low blood sugar, 0 Refills, 01/06/24 1:17:00 PM EST, Partial fill upon patient request if the prescription is for a schedule II opioid drug. Start Date: 01/06/24 Status: Ordered Repeat number: 1 Tylenol 325 mg oral capsule 2 capsule = 650 mg, By Mouth, Every 6 hours, PRN as needed for pain, not to exceed 4000 mg/day, # 90 capsule, 0 Refills, Maintenance, 12/19/23 10:09:00 AM EDT, Capsule, [facility], Partial fill upon patient request if the prescription is for a schedule II opioid drug., 172.72, cm, 12/16/23 11:38:00 EDT, Height, 97.6, kg, 12/08/23 15:42:00 EDT, Dry Weight Start Date: 12/19/23 Status: Ordered Quantity: 90.0 Unit: capsule Repeat number: 1 Vitamin D3 1000 intl units oral capsule 1 capsule = 25 mcg, By Mouth, Daily in AM, # 75 capsule, 0 Refills, Maintenance, 08/04/23 9:40:00 AMEDT, Capsule, Partial fill upon patient request if the prescription is for a schedule II opioid drug. Start Date: 08/04/23 Status: Ordered Quantity: 75.0 Unit: capsule Repeat number: 1 Xarelto 20 mg oral tablet 1 tablet, By Mouth, Daily in PM, # 30 tablet, 11 Refills, Maintenance, 12/05/23 8:25:00 AM EDT, [facility], 172.71, cm, 11/07/23 13:35:00 EDT, Height, 94.4, kg, 11/07/23 13:35:00EDT, Dry Weight Start Date: 12/05/23 Status: Ordered Quantity: 30.0 Unit: tablet Repeat number: 1 Zoloft 50 mg oral tablet 1 tablet = 50 mg, By Mouth, Daily, # 30 tablet, 3 Refills, Maintenance, 11/13/20 3:26:00 PM EDT, Tablet, [facility], Partial fill upon patient request if the prescription is for aschedule II opioid drug., 173, cm, 10/08/20 14:38:00 EDT, Height, 102.5, kg, 04/07/20 17:37:00 EST,Dry Weight Start Date: 11/13/20 Status: Ordered Quantity: 30.0 Unit: tablet Repeat number: 4 Problem List Condition Confirmation Course Effective Dates Status H ealth Status Informant AAA (abdominal aortic aneurysm) Confirmed Active AF - Atrial fibrillation/flutter 1 Confirmed Active Anemia of chronic illness Confirmed Active Aortic stenosis Confirmed Active Atherosclerosis of artery Confirmed Active Chronic back pain Confirmed Active Obesity (BMI 30-39.9) Confirmed Active CAD - Coronary artery disease, 2 Confirmed Active Cardiomyopathy Confirmed Active Central sleep apnea syndrome Confirmed Active Old CVA (cerebral infarction) Confirmed 1996 Active Chronic atrial fibrillation Confirmed Active Chronic insomnia Confirmed Active CKD (chronic kidney disease) stage 3 Confirmed Active Depression 3 Confirmed Active History of Drug use, Cocaine Confirmed Active Esophageal spasm Confirmed Active Chronic heart failure with preserved ejection fraction Confirmed Active Hyperlipidemia Confirmed Active Hypertension Confirmed Active Occasional tremors Confirmed Active Left ventricular systolic dysfunction Confirmed Active Nightmares associated with chronic post-traumatic stress disorder Confirmed Active Obese class I Confirmed Active Obstructive sleep apnea Confirmed Active Old myocardial infarct X9 Confirmed Active S/P placement of hypoglossal nerve stimulator Confirmed Active PVD (peripheral vascular disease) Confirmed Active Restless leg syndrome Confirmed Active Right heart failure Confirmed Active 12 afib ablations 2CABG with multiple stents in 1988 3history of suicidal ideation Vital Signs Most recent to oldest [Reference Range]: 1 Height 172.72 cm (01/06/24 1:14 PM) Weight 97.6 kg (01/06/24 1:14 PM) Body Mass Index [18.5-24.99 kg/m2] 32.72 kg/m2 *>HHI* (01/06/24 1:14 PM) Social History Social History Type Response Smoking Status Former smoker; Tobac co user in household: No; Other: pt states he quit smoking 1988; entered on: 07/14/15 Sex Sex Representation Male (finding) Patient Care team information Care Team Personnel Name: Darci Ayala RN Position: [facility] ED RN W/OE and Tasks Member Role: Primary Care Nurse Name: Niharika Reza RN Position: [facility] RN Member Role: Primary Care Nurse Name: Veronica Kapoor RN Position: [facility] RN Member Role: Primary Care Nurse Name: Jocelyn Villanueva RN Position: [facility] RN Member Role: Primary Care Nurse Name: Casimiro Alarcon RN Position: [facility] RN Member Role: Primary Care Nurse Name: Brenda Orr RN Position: [facility] RN Member Role: Primary Care Nurse Name: Chasidy Woodard RN Position: [facility] RN Member Role: Primary Care Nurse Name: Annalisa Aguilar RN Position: [facility] RN Member Role: Primary Care Nurse Name: Heavenly Sen RN Position: [facility] Hospital Plastic Roller Member Role: Primary Care Nurse Name: Radha CLINICAL TRIALS DATA COORDINATOR, Nasima Brown Position: Reference Physician Member Role: Primary Care Nurse Address: [address] [address]- [place] [employer]: Name: Bea Lacey MD Position: [facility] Outreach Member Role: PCP Address: [address] [place] [address]- [place] [employer]: Name: Itzel Tirado MD Position: [facility] Cardiology MD Member Role: Lifetime Consulting Physician Address: [address] [address]- [place] [employer]: Name: Beatriz Lawrence RN Position: [facility] SN RN Member Role: Primary Care Nurse Name: Dorothea Fong RN Position: [facility] SN RN Member Role: Primary Care Nurse Name: Get Galo MD Position: [facility] Renal MD Member Role: Lifetime Consulting Physician Address: [address] [facility] [address] [facility] [place] [address]- [place] [employer]: Name: Lucy Bradford RN Position: [facility] RN Member Role: Primary Care Nurse Name: Familia Rivas NP Position: Reference Physician Member Role: Primary Care Nurse Address: [address] [place] [address]- [place] [employer]: Care Team Related Persons Name: DARIEN GONZÁLES Insurance Providers Guarantor name: SHERLY VARGAS Health Plan Information #: 2 Payer: [employer] Member Number: [id number] Policy Number: NA Group Number: NA Health Plan Information #: 1 Payer: MEDICARE PART B OUTPT Member Number: [id number] Policy Number: NA Group Number: NA
--- OUTSIDE RECORDS SUMMARY | 2024-02-02 10:00 | XMS_ITS | Continuity of Care Document ---
Author Organization [facility] Address [address] [place] [address]- Care Team Providers Care Fabric Worker Name Role Phone Bea Lacey MD Primary Care Physician Encounter [facility] Date(s): 12/19/23 - 01/18/24 [facility] [address] [place] [address]- Encounter Type: Triage Allergies, Adverse Reactions, Alerts No Known Medication Allergies Substance Criticality Severity Reaction Reaction Severity Status Grass Unable to assess criticality Intermittent watery eyes/runny nose Active Tape rash Active Immunizations Given and Recorded Vaccine Date Status Refusal Reason [id number] 12y+ bivalent booster vax 12/08/21 Recorded SARS-CoV-2 (COVID-19) mRNA BNT-162b2 vac 12/24/20 Recorded SARS-CoV-2 (COVID-19) mRNA-1273 vaccine 05/27/20 R ecorded SARS-CoV-2 (COVID-19) mRNA-1273 vaccine 04/29/20 R ecorded pneumococcal 23-valent vaccine 04/26/12 Given influenza virus vaccine, inactivated 04/26/12 Give n Pneumococcal Vaccine (oldterm) 1 01/01/06 Given 1Result Comment: lot # [id number] EXP 08/20/06 PT INFO 09/04/04 Medications acetaminophen-oxycodone [...] 11 Refills, Maintenance, 12/13/23 12:27:00 PM EDT, [facility], Partial fill upon patient request if [...] 1 Refills, Maintenance, 08/03/23 8:39:00 AM EDT, [facility], 172.71, cm, 07/07/23 15:48:00 EDT, Height, [...] 3 Refills, Maintenance, 05/05/23 11:08:00 AM EDT, [facility], 172.71, cm, 04/22/23 15:06:00 EST, Height, [...] 2:14:00 PM EDT, Route to Pharmacy Electronically, [facility], Partial fill upon patient request if [...] Refills, Maintenance, 11/02/22 4:26:00 PM EDT, Tablet, [facility], Partial fill upon patient request if [...] 10:27:00 AM EDT, Route to Pharmacy Electronically, [facility] 3, Partial fill upon patient request if the prescription is for a schedule II opioid drug., 172.72, cm, 12/09/23 8:03:00 EDT, Height, 97.6, kg, 12/08/23 15:42:00 EDT, Dry Weight Start Date: 12/09/23 Status: Ordered Quantity: 10.0 Unit: tablet Repeat number: 1 Pen [place], 29 G x 12.7 mm BD Ultra [...] 1 Refills, Maintenance, 09/05/23 12:02:00 PM EDT, [facility], 172.71, cm, 08/12/23 13:11:00 EDT, Height, [...] Refills, Maintenance, 12/19/23 10:09:00 AM EDT, Capsule, [facility], Partial fill upon patient request if [...] 11 Refills, Maintenance, 12/05/23 8:25:00 AM EDT, [facility], 172.71, cm, 11/07/23 13:35:00 EDT, Height, 94.4, kg, 11/07/23 13:35:00EDT, Dry Weight Start Date: 12/05/23 Status: Ordered Quantity: 30.0 Unit: tablet Repeat number: 1 Zoloft 50 mg oral tablet 1 tablet = 50 mg, By Mouth, Daily, # 30 tablet, 3 Refills, Maintenance, 11/13/20 3:26:00 PM EDT, Tablet, [facility], Partial fill upon patient request if [...] stents in 1988 3history of suicidal ideation Social History Social History Type Response Smoking Status Former smoker; Tobac co user in household: No; Other: pt states he quit smoking 1988; entered on: 07/14/15 Sex Sex Representation Male (finding) Patient Care team information Care Team Personnel Name: Darci Ayala RN Position: [facility] ED RN W/OE and Tasks Member Role: Primary Care Nurse Name: Niharika Reza RN Position: [facility] RN Member Role: Primary Care Nurse Name: Veronica Kapoor RN Position: [facility] RN Member Role: Primary Care Nurse Name: Jocelyn Villanueva RN Position: [facility] RN Member Role: Primary Care Nurse Name: Casimiro Alarcon RN Position: [facility] RN Member Role: Primary Care Nurse Name: Brenda Orr RN Position: [facility] RN Member Role: Primary Care Nurse Name: Chasidy Woodard RN Position: [facility] RN Member Role: Primary Care Nurse Name: Annalisa Aguilar RN Position: [facility] RN Member Role: Primary Care Nurse Name: Heavenly Sen RN Position: [facility] Hospital Accounting Specialist Member Role: Primary Care Nurse Name: Radha LOVELL, Nasima Brown Position: Reference Physician Member Role: Primary Care Nurse Address: [address] [place] [address], [place] [address]- [place] Telecom: Name: Bea Lacey MD Position: [facility] Outreach Member Role: PCP Address: [address] [place] [address]- [place] Tele[place]: Name: Itzel Tirado MD Position: [facility] Cardiology MD Member Role: Lifetime Consulting Physician Address: [address] [facility] [address] [place] [address]- [place] Tele[place]: Name: Beatriz Lawrence RN Position: [facility] SN RN Member Role: Primary Care Nurse Name: Dorothea Fong RN Position: [facility] SN RN Member Role: Primary Care Nurse Name: Get Galo MD Position: [facility] Renal MD Member Role: Lifetime Consulting Physician Address: [address] [facility] [address] [facility] [place] [address]- [place] Tele[place]: Name: Lucy Bradford RN Position: [facility] RN Member Role: Primary Care Nurse Name: Familia Rivas NP Position: Reference Physician Member Role: Primary Care Nurse Address: [address] [place] [address]- [place] Tele[place]: Care Team Related Persons Name: DARIEN GONZÁLES Insurance Providers Guarantor name: SHERLY VARGAS Health Plan Information #: 1 Payer: MEDICARE PART B OUTPT Member Number: NA Policy Number: NA Group Number: NA Health Plan Information #: 2 Payer: [place] Member Number: NA Policy Number: NA Group Number: NA
--- OUTSIDE RECORDS SUMMARY | 2024-02-02 10:01 | XMS_ITS | Continuity of Care Document ---
Author Organization [facility] Neurosurger y [address] [place] [address]- Care Team Providers Care Deputy Court Name Role Phone Bea Lacey MD Primary Care Physician [phone] Encounter [facility] [place] Date(s): 01/17/24 - 01/24/[address] [place], [place] [address] Attending Physician: Darci Payan MD Referring Physician: Bea Lacey MD Encounter Type: Office Visit Allergies, Adverse Reactions, Alerts No Known Medication Allergies Substance Criticality Severity Reaction Reaction Severity Status Grass Unable to assess criticality Intermittent watery eyes/runny nose Active Tape rash Active Immunizations Given and Recorded Vaccine Date Status Refusal Reason [id number] 12y+ bivalent booster vax 12/08/21 Recorded SARS-CoV-2 (COVID-19) mRNA BNT-162b2 vac 12/24/20 Recorded SARS-CoV-2 (COVID-19) mRNA-1273 vaccine 05/27/20 R ecorded SARS-CoV-2 (COVID-19) mRNA-1273 vaccine 04/29/20 R ecorded pneumococcal 23-valent vaccine 04/26/12 Given influenza virus vaccine, inactivated 04/26/12 Give n Pneumococcal Vaccine (oldterm) 1 01/01/06 Given 1Result Comment: lot # [id number] EXP 08/20/06 PT INFO 09/04/04 Medications acetaminophen-oxycodone [...] 11 Refills, Maintenance, 12/13/23 12:27:00 PM EDT, [facility], Partial fill upon patient request [...] 1 Refills, Maintenance, 08/03/23 8:39:00 AM EDT, [facility], 172.71, cm, 07/07/23 15:48:00 EDT, [...] 3 Refills, Maintenance, 05/05/23 11:08:00 AM EDT, [facility], 172.71, cm, 04/22/23 15:06:00 EST, [...] 2:14:00 PM EDT, Route to Pharmacy Electronically, [facility], Partial fill upon patient request [...] Refills, Maintenance, 11/02/22 4:26:00 PM EDT, Tablet, [facility], Partial fill upon patient request [...] 10:27:00 AM EDT, Route to Pharmacy Electronically, [facility] 3, Partial fill upon patient request if the prescription is for a schedule II opioid drug., 172.72, cm, 12/09/23 8:03:00 EDT, Height, 97.6, kg, 12/08/23 15:42:00 EDT, Dry Weight Start Date: 12/09/23 Status: Ordered Quantity: 10.0 Unit: tablet Repeat number: 1 Pen [place], 29 G x 12.7 mm BD Ultra [...] 1 Refills, Maintenance, 09/05/23 12:02:00 PM EDT, [facility], 172.71, cm, 08/12/23 13:11:00 EDT, [...] Refills, Maintenance, 12/19/23 10:09:00 AM EDT, Capsule, [facility], Partial fill upon patient request [...] 11 Refills, Maintenance, 12/05/23 8:25:00 AM EDT, [facility], 172.71, cm, 11/07/23 13:35:00 EDT, Height, 94.4, kg, 11/07/23 13:35:00EDT, Dry Weight Start Date: 12/05/23 Status: Ordered Quantity: 30.0 Unit: tablet Repeat number: 1 Zoloft 50 mg oral tablet 1 tablet = 50 mg, By Mouth, Daily, # 30 tablet, 3 Refills, Maintenance, 11/13/20 3:26:00 PM EDT, Tablet, [facility], Partial fill upon patient request if the prescription is for aschedule II opioid drug., 173, cm, 10/08/20 14:38:00 EDT, Height, 102.5, kg, 02/15/21 17:37:00 EST,Dry Weight Start Date: 11/13/20 Status: [...] oldest [Reference Range]: 1 Height 172.72 cm (01/17/24 2:31 PM) Weight 90 kg (01/17/24 2:31 PM) Body Mass Index [18.5-24.99 kg/m2] 30.17 kg/m2 *>HHI* (01/17/24 2:31 PM) Dry Weight 90 kg (01/17/24 2:31 PM) Weight Obtained Via Patient/family state d (01/17/24 2:31 PM) Dry Weight Obtained Via Patient/family s tated (01/17/24 2:31 PM) Social History Social History Type Response Smoking Status Former smoker; Tobac co user in household: No; Other: pt states he quit smoking 1988; entered on: 07/14/15 Sex Sex Representation Male (finding) Patient Care team information Care Team Personnel Name: Darci Ayala RN Position: [facility] RN W/OE and Tasks Member Role: Primary Care Nurse Name: Niharika Reza RN Position: [facility] SN RN Member Role: Primary Care Nurse Name: Veronica Kapoor RN Position: [facility] RN Member Role: Primary Care Nurse Name: Jocelyn Villanueva RN Position: [facility] SN RN Member Role: Primary Care Nurse Name: Casimiro Alarcon RN Position: [facility] RN Member Role: Primary Care Nurse Name: Brenda Orr RN Position: [facility] RN Member Role: Primary Care Nurse Name: Chasidy Woodard RN Position: [facility] RN Member Role: Primary Care Nurse Name: Annalisa Aguilar RN Position: [facility] RN Member Role: Primary Care Nurse Name: Heavenly Sen RN Position: [facility] Hospital [place] Member Role: Primary Care Nurse Name: Nasima Garcia NP Position: Reference Physician Member Role: Primary Care Nurse Address: [address] [address]- [place] Tele[place]: Name: Bea Lacey MD Position: [facility] Outreach Member Role: PCP Address: [address] [place] [address]- [place] Tele[place]: Name: Itzel Tirado MD Position: [facility] Cardiology MD Member Role: Lifetime Consulting Physician Address: [address] [facility] [address] [place] [address]- [place] Tele[place]: Name: Beatriz Lawrence RN Position: [facility] SN RN Member Role: Primary Care Nurse Name: Dorothea Fong RN Position: [facility] SN RN Member Role: Primary Care Nurse Name: Get Galo MD Position: [facility] Renal MD Member Role: Lifetime Consulting Physician Address: [address] [facility] [address] [facility] [place] [address]- [place] Telecom: Name: Lucy Bradford RN Position: [facility] RN Member Role: Primary Care Nurse Name: Familia Rivas NP Position: Reference Physician Member Role: Primary Care Nurse Address: [address] [place] [address]- [place] Tele[place]: Care Team Related Persons Name: DARIEN GONZÁLES Insurance Providers Guarantor name: [facility] Information #: 2 Payer: [employer] Member Number: [id number] Policy Number: NA Group Number: NA Health Plan Information #: 1 Payer: MEDICARE PART B OUTPT Member Number: [id number] Policy Number: NA Group Number: NA
--- OUTSIDE RECORDS SUMMARY | 2024-02-02 10:01 | XMS_ITS | Continuity of Care Document ---
Author Organization [facility] Neurosurger y [address], [address] [place] [address]- Care Team Providers Care Bolt Cutter Name Role Phone Bea Lacey MD Primary Care Physician Encounter [facility] [place] Date(s): 12/22/23 - 01/21/[address] [place], [place] [address] Encounter Type: Triage Allergies, Adverse Reactions, Alerts No Known Medication Allergies Substance Criticality Severity Reaction Reaction Severity Status Grass Unable to assess criticality Intermittent watery eyes/runny nose Active Tape rash Active Immunizations Given and Recorded Vaccine Date Status Refusal Reason [id number] 12y+ bivalent booster vax 12/08/21 Recorded SARS-CoV-2 (COVID-19) mRNA BNT-162b2 vac 12/24/20 Recorded SARS-CoV-2 (COVID-19) mRNA-1273 vaccine 05/27/20 R ecorded SARS-CoV-2 (COVID-19) mRNA-1273 vaccine 04/29/20 R ecorded pneumococcal 23-valent vaccine 04/26/12 Given influenza virus vaccine, inactivated 04/26/12 Give n Pneumococcal Vaccine (oldterm) 1 01/01/06 Given 1Result Comment: lot # [id number] EXP 08/20/06 PT INFO 09/04/04 Medications acetaminophen-oxycodone [...] 11 Refills, Maintenance, 12/13/23 12:27:00 PM EDT, [facility], Partial fill upon patient request [...] 1 Refills, Maintenance, 08/03/23 8:39:00 AM EDT, [facility], 172.71, cm, 07/07/23 15:48:00 EDT, [...] 3 Refills, Maintenance, 05/05/23 11:08:00 AM EDT, [facility], 172.71, cm, 04/22/23 15:06:00 EST, [...] 2:14:00 PM EDT, Route to Pharmacy Electronically, [facility], Partial fill upon patient request [...] Refills, Maintenance, 11/02/22 4:26:00 PM EDT, Tablet, [facility], Partial fill upon patient request [...] 10:27:00 AM EDT, Route to Pharmacy Electronically, [facility] 3, Partial fill upon patient request if the prescription is for a schedule II opioid drug., 172.72, cm, 12/09/23 8:03:00 EDT, Height, 97.6, kg, 12/08/23 15:42:00 EDT, Dry Weight Start Date: 12/09/23 Status: Ordered Quantity: 10.0 Unit: tablet Repeat number: 1 Pen [place], 29 G x 12.7 mm BD Ultra [...] 1 Refills, Maintenance, 09/05/23 12:02:00 PM EDT, [facility], 172.71, cm, 08/12/23 13:11:00 EDT, [...] Refills, Maintenance, 12/19/23 10:09:00 AM EDT, Capsule, [facility], Partial fill upon patient request [...] 11 Refills, Maintenance, 12/05/23 8:25:00 AM EDT, [facility], 172.71, cm, 11/07/23 13:35:00 EDT, Height, 94.4, kg, 11/07/23 13:35:00EDT, Dry Weight Start Date: 12/05/23 Status: Ordered Quantity: 30.0 Unit: tablet Repeat number: 1 Zoloft 50 mg oral tablet 1 tablet = 50 mg, By Mouth, Daily, # 30 tablet, 3 Refills, Maintenance, 11/13/20 3:26:00 PM EDT, Tablet, [facility], Partial fill upon patient request [...] Team Personnel Name: Darci Ayala RN Position: [facility] ED RN W/OE and Tasks Member Role: Primary Care Nurse Name: Niharika Reza RN Position: [facility] RN Member Role: Primary Care Nurse Name: Veronica Kapoor RN Position: [facility] RN Member Role: Primary Care Nurse Name: Jocelyn Villanueva RN Position: [facility] SN RN Member Role: Primary Care Nurse Name: Casimiro Alarcon RN Position: [facility] RN Member Role: Primary Care Nurse Name: Brenda Orr RN Position: [facility] RN Member Role: Primary Care Nurse Name: Chasidy Woodard RN Position: [facility] RN Member Role: Primary Care Nurse Name: Annalisa Aguilar RN Position: [facility] RN Member Role: Primary Care Nurse Name: Heavenly Sen RN Position: [facility] Hospital Funeral Sales Manager Member Role: Primary Care Nurse Name: Radha LOVELL, Nasima Brown Position: Reference Physician Member Role: Primary Care Nurse Address: [address] [place] [address]- [place] Tele[place]: Name: Bea Lacey MD Position: [facility] Outreach Member Role: PCP Address: [address] [place] [address]- [place] Tele[place]: Name: Itzel Tirado MD Position: [facility] Cardiology MD Member Role: Lifetime Consulting Physician Address: [address] [facility] [address] [place] [address]- [place] Tele[place]: Name: Beatriz Lawrence RN Position: [facility] SN RN Member Role: Primary Care Nurse Name: Dorothea Fong RN Position: [facility] SN RN Member Role: Primary Care Nurse Name: Get Galo MD Position: [facility] Renal MD Member Role: Lifetime Consulting Physician Address: [address] [facility] [address] [facility] [place] [address]- [place] Tele[place]: Name: Lucy Bradford RN Position: S RN Member Role: Primary Care Nurse Name: Familia Rivas NP Position: Reference Physician Member Role: Primary Care Nurse Address: [address] [place] [address]- [place] Tele[place]: Care Team Related Persons Name: DARIEN GONZÁLES Insurance Providers Guarantor name: SHERLY VARGAS Health Plan Information #: 1 Payer: MEDICARE PART B OUTPT Member Number: NA Policy Number: NA Group Number: NA Health Plan Information #: 2 Payer: [place] Member Number: NA Policy Number: NA Group Number: NA
--- OUTSIDE RECORDS SUMMARY | 2024-02-02 10:01 | XMS_ITS | Continuity of Care Document ---
Author Organization [facility] Rocky laurence Address [address] [place] [address] [address] [place] [address]- Care Team Providers Care Production Designer Name Role Phone Bea Lacey MD Primary Care Physician Encounter [facility] [place] Date(s): 12/19/23 - 01/18/24 [facility]astic [address] [address] Encounter Type: Triage Allergies, Adverse Reactions, Alerts No Known Medication Allergies Substance Criticality Severity Reaction Reaction Severity Status Grass Unable to assess criticality Intermittent watery eyes/runny nose Active Tape rash Active Immunizations Given and Recorded Vaccine Date Status Refusal Reason [id number] 12y+ bivalent booster vax 12/08/21 Recorded SARS-CoV-2 (COVID-19) mRNA BNT-162b2 vac 12/24/20 Recorded SARS-CoV-2 (COVID-19) mRNA-1273 vaccine 05/27/20 R ecorded SARS-CoV-2 (COVID-19) mRNA-1273 vaccine 04/29/20 R ecorded pneumococcal 23-valent vaccine 04/26/12 Given influenza virus vaccine, inactivated 04/26/12 Give n Pneumococcal Vaccine (oldterm) 1 01/01/06 Given 1Result Comment: lot # [id number] [id number] 08/20/06 PT INFO 09/04/04 Medications acetaminophen-oxycodone [...] 11 Refills, Maintenance, 12/13/23 12:27:00 PM EDT, [facility], Partial fill upon patient request if [...] 1 Refills, Maintenance, 08/03/23 8:39:00 AM EDT, [facility], 172.71, cm, 07/07/23 15:48:00 EDT, Height, [...] 3 Refills, Maintenance, 05/05/23 11:08:00 AM EDT, [facility], 172.71, cm, 04/22/23 15:06:00 EST, Height, [...] 2:14:00 PM EDT, Route to Pharmacy Electronically, [facility], Partial fill upon patient request if [...] Refills, Maintenance, 11/02/22 4:26:00 PM EDT, Tablet, [facility], Partial fill upon patient request if [...] 10:27:00 AM EDT, Route to Pharmacy Electronically, [facility] 3, Partial fill upon patient request if the prescription is for a schedule II opioid drug., 172.72, cm, 12/09/23 8:03:00 EDT, Height, 97.6, kg, 12/08/23 15:42:00 EDT, Dry Weight Start Date: 12/09/23 Status: Ordered Quantity: 10.0 Unit: tablet Repeat number: 1 Pen [place], 29 G x 12.7 mm BD Ultra [...] 1 Refills, Maintenance, 09/05/23 12:02:00 PM EDT, [facility], 172.71, cm, 08/12/23 13:11:00 EDT, Height, [...] Refills, Maintenance, 12/19/23 10:09:00 AM EDT, Capsule, [facility], Partial fill upon patient request if [...] 11 Refills, Maintenance, 12/05/23 8:25:00 AM EDT, [facility], 172.71, cm, 11/07/23 13:35:00 EDT, Height, 94.4, kg, 11/07/23 13:35:00EDT, Dry Weight Start Date: 12/05/23 Status: Ordered Quantity: 30.0 Unit: tablet Repeat number: 1 Zoloft 50 mg oral tablet 1 tablet = 50 mg, By Mouth, Daily, # 30 tablet, 3 Refills, Maintenance, 11/13/20 3:26:00 PM EDT, Tablet, [facility], Partial fill upon patient request if [...] Team Personnel Name: Darci Ayala RN Position: [facility] ED RN W/OE and Tasks Member Role: Primary Care Nurse Name: Niharika Reza RN Position: [facility] RN Member Role: Primary Care Nurse Name: Veronica Kapoor RN Position: [facility] RN Member Role: Primary Care Nurse Name: Jocelyn Villanueva RN Position: [facility] RN Member Role: Primary Care Nurse Name: Casimiro Alarcon RN Position: [facility] RN Member Role: Primary Care Nurse Name: Brenda Orr RN Position: [facility] RN Member Role: Primary Care Nurse Name: Chasidy Woodard RN Position: [facility] RN Member Role: Primary Care Nurse Name: Annalisa Aguilar RN Position: [facility] RN Member Role: Primary Care Nurse Name: Heavenly Sen RN Position: [facility] Hospital Establishment Guide Member Role: Primary Care Nurse Name: Nasima Garcia NP Position: Reference Physician Member Role: Primary Care Nurse Address: [address] [place] [address]- [place] Tele[place]: Name: Bea Lacey MD Position: [facility] Outreach Member Role: PCP Address: [address] [place] [address]- [place] Tele[place]: Name: Itzel Tirado MD Position: [facility] Cardiology MD Member Role: Lifetime Consulting Physician Address: [address] [facility] [address] [place] [address]- [place] Tele[place]: Name: Beatriz Lawrence RN Position: [facility] SN RN Member Role: Primary Care Nurse Name: Dorothea Fong RN Position: [facility] SN RN Member Role: Primary Care Nurse Name: Get Galo MD Position: [facility] Renal MD Member Role: Lifetime Consulting Physician Address: [address] [facility] [address] [facility] [place] [address]- [place] Tele[place]: Name: Lucy Bradford RN Position: [facility] RN Member Role: Primary Care Nurse Name: Familia Rivas NP Position: Reference Physician Member Role: Primary Care Nurse Address: [address] [place] [address]- [place] Tele[place]: Care Team Related Persons Name: DARIEN GONZÁLES Insurance Providers Guarantor name: SHERLY VARGAS Health Plan Information #: 1 Payer: MEDICARE PART B OUTPT Member Number: NA Policy Number: NA Group Number: NA Health Plan Information #: 2 Payer: [place] Member Number: NA Policy Number: NA Group Number: NA
--- OUTSIDE RECORDS SUMMARY | 2024-02-02 10:02 | XMS_ITS | Continuity of Care Document ---
Author Organization [facility] Address [address] [place] [address]- Care Team Providers Care Card Checker Name Role Phone Bea Lacey MD Primary Care Physician Encounter [facility] [place] Date(s): 12/12/23 - 01/11/24 [facility] [address] [place] [address]- Encounter Type: Triage Allergies, Adverse Reactions, Alerts No Known Medication Allergies Substance Criticality Severity Reaction Reaction Severity Status Grass Unable to assess criticality Intermittent watery eyes/runny nose Active Tape rash Active Immunizations Given and Recorded Vaccine Date Status Refusal Reason [id number] 12y+ bivalent booster vax 12/08/21 Recorded SARS-CoV-2 (COVID-19) mRNA BNT-162b2 vac 12/24/20 Recorded SARS-CoV-2 (COVID-19) mRNA-1273 vaccine 05/27/20 R ecorded SARS-CoV-2 (COVID-19) mRNA-1273 vaccine 04/29/20 R ecorded pneumococcal 23-valent vaccine 04/26/12 Given influenza virus vaccine, inactivated 04/26/12 Give n Pneumococcal Vaccine (oldterm) 1 01/01/06 Given 1Result Comment: lot # [id number] EXP 08/20/06 PT INFO 09/04/04 Medications acetaminophen-oxycodone [...] 11 Refills, Maintenance, 12/13/23 12:27:00 PM EDT, [facility], Partial fill upon patient request [...] 1 Refills, Maintenance, 08/03/23 8:39:00 AM EDT, [facility], 172.71, cm, 07/07/23 15:48:00 EDT, [...] 3 Refills, Maintenance, 05/05/23 11:08:00 AM EDT, [facility], 172.71, cm, 04/22/23 15:06:00 EST, [...] 2:14:00 PM EDT, Route to Pharmacy Electronically, [facility], Partial fill upon patient request [...] Refills, Maintenance, 11/02/22 4:26:00 PM EDT, Tablet, [facility], Partial fill upon patient request [...] 10:27:00 AM EDT, Route to Pharmacy Electronically, [facility], Partial fill upon patient request if the prescription is for a schedule II opioid drug., 172.72, cm, 12/09/23 8:03:00 EDT, Height, 97.6, kg, 12/08/23 15:42:00 EDT, Dry Weight Start Date: 12/09/23 Status: Ordered Quantity: 10.0 Unit: tablet Repeat number: 1 Pen [place], 29 G x 12.7 mm BD Ultra [...] 1 Refills, Maintenance, 09/05/23 12:02:00 PM EDT, [facility], 172.71, cm, 08/12/23 13:11:00 EDT, [...] Refills, Maintenance, 12/19/23 10:09:00 AM EDT, Capsule, [facility], Partial fill upon patient request [...] 11 Refills, Maintenance, 12/05/23 8:25:00 AM EDT, [facility], 172.71, cm, 11/07/23 13:35:00 EDT, Height, 94.4, kg, 11/07/23 13:35:00EDT, Dry Weight Start Date: 12/05/23 Status: Ordered Quantity: 30.0 Unit: tablet Repeat number: 1 Zoloft 50 mg oral tablet 1 tablet = 50 mg, By Mouth, Daily, # 30 tablet, 3 Refills, Maintenance, 11/13/20 3:26:00 PM EDT, Tablet, [facility], Partial fill upon patient request [...] Team Personnel Name: Darci Ayala RN Position: [facility] ED RN W/OE and Tasks Member Role: Primary Care Nurse Name: Niharika Reza RN Position: [facility] RN Member Role: Primary Care Nurse Name: Veronica Kapoor RN Position: [facility] RN Member Role: Primary Care Nurse Name: Jocelyn Villanueva RN Position: [facility] RN Member Role: Primary Care Nurse Name: Casimiro Alarcon RN Position: [facility] RN Member Role: Primary Care Nurse Name: Brenda Orr RN Position: [facility] RN Member Role: Primary Care Nurse Name: Chasidy Woodard RN Position: [facility] RN Member Role: Primary Care Nurse Name: Annalisa Aguilar RN Position: [facility] RN Member Role: Primary Care Nurse Name: Heavenly Sen RN Position: [facility] Hospital Food Consultant Member Role: Primary Care Nurse Name: Radha LOVELL, Nasima Brown Position: Reference Physician Member Role: Primary Care Nurse Address: [address] [place] [address], [place] [address]- [place] Telecom: Name: Bea Lacey MD Position: [facility] Outreach Member Role: PCP Address: [address] [place] [address]- [place] Tele[place]: Name: Itzel Tirado MD Position: [facility] Cardiology MD Member Role: Lifetime Consulting Physician Address: [address] [facility] [address] [place] [address]- [place] Tele[place]: Name: Beatriz Lawrence RN Position: [facility] SN RN Member Role: Primary Care Nurse Name: Dorothea Fong RN Position: [facility] SN RN Member Role: Primary Care Nurse Name: Get Galo MD Position: [facility] Renal MD Member Role: Lifetime Consulting Physician Address: [address] [facility] [address] [facility] [place] [address]- [place] Tele[place]: Name: Lucy Bradford RN Position: [facility] RN Member Role: Primary Care Nurse Name: Familia Rivas NP Position: Reference Physician Member Role: Primary Care Nurse Address: [address] [place] [address]- [place] Tele[place]: Care Team Related Persons Name: DARIEN GONZÁLES Insurance Providers Guarantor name: SHERLY VARGAS Health Plan Information #: 1 Payer: MEDICARE PART B OUTPT Member Number: NA Policy Number: NA Group Number: NA Health Plan Information #: 2 Payer: [place] Member Number: NA Policy Number: NA Group Number: NA
--- OUTSIDE RECORDS SUMMARY | 2024-02-02 10:02 | XMS_ITS | Continuity of Care Document ---
Author Organization [facility] [address], [address] [place] [address]- Care Team Providers Care Harness Maker Name Role Phone Bea Lacey MD Primary Care Physician [place] [facility] [place] Date(s): 12/30/23 - 01/29/[address] [place], [place] [address] Encounter Type: Triage Allergies, Adverse Reactions, Alerts No Known Medication Allergies Substance Criticality Severity Reaction Reaction Severity Status Grass Unable to assess criticality Intermittent watery eyes/runny nose Active Tape rash Active Immunizations Given and Recorded Vaccine Date Status Refusal Reason [id number] 12y+ bivalent booster vax 12/08/21 Recorded SARS-CoV-2 (COVID-19) mRNA BNT-162b2 vac 12/24/20 Recorded SARS-CoV-2 (COVID-19) mRNA-1273 vaccine 05/27/20 R ecorded SARS-CoV-2 (COVID-19) mRNA-1273 vaccine 04/29/20 R ecorded pneumococcal 23-valent vaccine 04/26/12 Given influenza virus vaccine, inactivated 04/26/12 Give n Pneumococcal Vaccine (oldterm) 1 01/01/06 Given 1Result Comment: lot # [id number] EXP 08/20/06 PT INFO 09/04/04 Medications acetaminophen-oxycodone [...] 11 Refills, Maintenance, 12/13/23 12:27:00 PM EDT, [facility], Partial fill upon patient request [...] 1 Refills, Maintenance, 08/03/23 8:39:00 AM EDT, [facility], 172.71, cm, 07/07/23 15:48:00 EDT, [...] 3 Refills, Maintenance, 05/05/23 11:08:00 AM EDT, [facility], 172.71, cm, 04/22/23 15:06:00 EST, [...] 2:14:00 PM EDT, Route to Pharmacy Electronically, [facility], Partial fill upon patient request [...] Refills, Maintenance, 11/02/22 4:26:00 PM EDT, Tablet, [facility], Partial fill upon patient request [...] 10:27:00 AM EDT, Route to Pharmacy Electronically, [facility], Partial fill upon patient request if the prescription is for a schedule II opioid drug., 172.72, cm, 12/09/23 8:03:00 EDT, Height, 97.6, kg, 12/08/23 15:42:00 EDT, Dry Weight Start Date: 12/09/23 Status: Ordered Quantity: 10.0 Unit: tablet Repeat number: 1 Pen [place], 29 G x 12.7 mm BD Ultra [...] 1 Refills, Maintenance, 09/05/23 12:02:00 PM EDT, [facility], 172.71, cm, 08/12/23 13:11:00 EDT, [...] Refills, Maintenance, 12/19/23 10:09:00 AM EDT, Capsule, [facility], Partial fill upon patient request [...] 11 Refills, Maintenance, 12/05/23 8:25:00 AM EDT, [facility], 172.71, cm, 11/07/23 13:35:00 EDT, Height, 94.4, kg, 11/07/23 13:35:00EDT, Dry Weight Start Date: 12/05/23 Status: Ordered Quantity: 30.0 Unit: tablet Repeat number: 1 Zoloft 50 mg oral tablet 1 tablet = 50 mg, By Mouth, Daily, # 30 tablet, 3 Refills, Maintenance, 11/13/20 3:26:00 PM EDT, Tablet, [facility], Partial fill upon patient request [...] Team Personnel Name: Darci Ayala RN Position: [facility] ED RN W/OE and Tasks Member Role: Primary Care Nurse Name: Niharika Reza RN Position: [facility] RN Member Role: Primary Care Nurse Name: Veronica Kapoor RN Position: [facility] RN Member Role: Primary Care Nurse Name: Jocelyn Villanueva RN Position: [facility] SN RN Member Role: Primary Care Nurse Name: Casimiro Alarcon RN Position: [facility] RN Member Role: Primary Care Nurse Name: Brenda Orr RN Position: [facility] RN Member Role: Primary Care Nurse Name: Chasidy Woodard RN Position: [facility] RN Member Role: Primary Care Nurse Name: Annalisa Aguilar RN Position: [facility] RN Member Role: Primary Care Nurse Name: Heavenly Sen RN Position: [facility] Hospital Slubber Runner Member Role: Primary Care Nurse Name: Radha LOVELL, Nasima Brown Position: Reference Physician Member Role: Primary Care Nurse Address: [address] [place] [address]- [place] Telecom: Name: Bea Lacey MD Position: [facility] Outreach Member Role: PCP Address: [address] [place] [address]- [place] Tele[place]: Name: Itzel Tirado MD Position: [facility] Cardiology MD Member Role: Lifetime Consulting Physician Address: [address] [facility] [address] [place] [address]- [place] Tele[place]: Name: Beatriz Lawrence RN Position: [facility] SN RN Member Role: Primary Care Nurse Name: Dorothea Fong RN Position: [facility] SN RN Member Role: Primary Care Nurse Name: Get Galo MD Position: [facility] Renal MD Member Role: Lifetime Consulting Physician Address: [address] [facility] [address] [facility] [place] [place] [address]- [place] Telecom: Name: Lucy Bradford RN Position: S RN Member Role: Primary Care Nurse Name: Familia Rivas NP Position: Reference Physician Member Role: Primary Care Nurse Address: [address] [place] [address]- [place] Tele[place]: Care Team Related Persons Name: DARIEN GONZÁLES Insurance Providers Guarantor name: SHERLY VARGAS Health Plan Information #: 1 Payer: MEDICARE PART B OUTPT Member Number: NA Policy Number: NA Group Number: NA Health Plan Information #: 2 Payer: [place] Member Number: NA Policy Number: NA Group Number: NA
--- OUTSIDE RECORDS SUMMARY | 2024-02-02 10:02 | XMS_ITS | Continuity of Care Document ---
Author Organization [facility] Address [address] [place] [address]- Care Team Providers Care Phd Internship Name Role Phone Bea Lacey MD Primary Care Physician [phone] Encounter [facility] [place] Date(s): 12/12/23 - 01/11/24 [facility] [address] [place] [address]- Attending Physician: Moises Andrews Encounter Type: Triage Allergies, Adverse Reactions, Alerts No Known Medication Allergies Substance Criticality Severity Reaction Reaction Severity Status Grass Unable to assess criticality Intermittent watery eyes/runny nose Active Tape rash Active Immunizations Given and Recorded Vaccine Date Status Refusal Reason [id number] 12y+ bivalent booster vax 12/08/21 Recorded SARS-CoV-2 (COVID-19) mRNA BNT-162b2 vac 12/24/20 Recorded SARS-CoV-2 (COVID-19) mRNA-1273 vaccine 05/27/20 R ecorded SARS-CoV-2 (COVID-19) mRNA-1273 vaccine 04/29/20 R ecorded pneumococcal 23-valent vaccine 04/26/12 Given influenza virus vaccine, inactivated 04/26/12 Give n Pneumococcal Vaccine (oldterm) 1 01/01/06 Given 1Result Comment: lot # [id number] [id number] 08/20/06 PT INFO 09/04/04 Medications acetaminophen-oxycodone [...] 11 Refills, Maintenance, 12/13/23 12:27:00 PM EDT, [facility], Partial fill upon patient request [...] 1 Refills, Maintenance, 08/03/23 8:39:00 AM EDT, [facility], 172.71, cm, 07/07/23 15:48:00 EDT, [...] 3 Refills, Maintenance, 05/05/23 11:08:00 AM EDT, [facility], 172.71, cm, 04/22/23 15:06:00 EST, [...] 2:14:00 PM EDT, Route to Pharmacy Electronically, [facility], Partial fill upon patient request [...] Refills, Maintenance, 11/02/22 4:26:00 PM EDT, Tablet, [facility], Partial fill upon patient request [...] 10:27:00 AM EDT, Route to Pharmacy Electronically, [facility] 3, Partial fill upon patient request if the prescription is for a schedule II opioid drug., 172.72, cm, 12/09/23 8:03:00 EDT, Height, 97.6, kg, 12/08/23 15:42:00 EDT, Dry Weight Start Date: 12/09/23 Status: Ordered Quantity: 10.0 Unit: tablet Repeat number: 1 Pen [place], 29 G x 12.7 mm BD Ultra [...] 1 Refills, Maintenance, 09/05/23 12:02:00 PM EDT, [facility], 172.71, cm, 08/12/23 13:11:00 EDT, [...] Refills, Maintenance, 12/19/23 10:09:00 AM EDT, Capsule, [facility], Partial fill upon patient request [...] 11 Refills, Maintenance, 12/05/23 8:25:00 AM EDT, [facility], 172.71, cm, 11/07/23 13:35:00 EDT, Height, 94.4, kg, 11/07/23 13:35:00EDT, Dry Weight Start Date: 12/05/23 Status: Ordered Quantity: 30.0 Unit: tablet Repeat number: 1 Zoloft 50 mg oral tablet 1 tablet = 50 mg, By Mouth, Daily, # 30 tablet, 3 Refills, Maintenance, 11/13/20 3:26:00 PM EDT, Tablet, [facility], Partial fill upon patient request [...] on: 07/14/15 Sex Sex Representation Male (finding) Cardiology * Event Display: EKG Non BH Authored Date: Cardiology Outpatient Note * Valentien Arredondo RN: PERFORM, SIGN, VERIFY Event Display: Cardiology Note Office Authored Date: [id number] Patient: SHERLY MAKI Age: 68 years Sex: Male : 1950 Associated Diagnoses: None Author: Valentine Arredondo RN 03/15/2019 To Whom it May Concern Sherly Maki ( 54) is my cardiology pt. He may stop his Xarelto 72 hours prior to, and 48 hours after his proposed procedure. He may also hold his ASA for 7 days prior to this procedure. Please contact our office with any further questions. Sincerely, Sharan Hill MD * Citlali GYROSCOPIC INSTRUMENT TESTER , Lupe: JANINA Hill MD, Sharan: PERFORM, SIGN Sharan Hill MD: SIGN, VERIFY Sharan Hill MD: VERIFY Event Display: Cardiology Note Office Authored Date: [id number] Patient: SHERLY MAKI Age: 62 years Sex: Male : 1950 Associated Diagnoses: None Author: Sharan Hill MD Indication for Treatment Atrial Fibrillation Expected Duration of Therapy Life Long Target Range for INR 2.0-3.0 Discharge Status Discharged home without VNA Discharged Dosing Instructions Warfarin (Coumadin) unknown Radiology * Event Display: CT Scan Head, Non- BH Authored Date: Patient Care team information Care Team Personnel Name: Darci Ayala RN Position: [facility] ED RN W/OE and Tasks Member Role: Primary Care Nurse Name: Niharika Reza RN Position: [facility] SN RN Member Role: Primary Care Nurse Name: Veronica Kapoor RN Position: [facility] RN Member Role: Primary Care Nurse Name: Jocelyn Villanueva RN Position: [facility] SN RN Member Role: Primary Care Nurse Name: Casimiro Alarcon RN Position: [facility] RN Member Role: Primary Care Nurse Name: Brenda Orr RN Position: [facility] RN Member Role: Primary Care Nurse Name: Chasidy Woodard RN Position: [facility] RN Member Role: Primary Care Nurse Name: Annalisa Aguilar RN Position: [facility] RN Member Role: Primary Care Nurse Name: Heavenly Sen RN Position: [facility] Hospital Watch Guard Gate Member Role: Primary Care Nurse Name: Nasima Garcia NP Position: Reference Physician Member Role: Primary Care Nurse Address: [address] [place] [address]- [place] Tele[place]: Name: Bea Lacey MD Position: [facility] Outreach Member Role: PCP Address: [address] [place] [address]- [place] Tele[place]: Name: Itzel Tirado MD Position: [facility] Cardiology MD Member Role: Lifetime Consulting Physician Address: [address] [facility] [address] [place] [address]- [place] Tele[place]: Name: Beatriz Lawrence RN Position: [facility] SN RN Member Role: Primary Care Nurse Name: Dorothea Fong RN Position: [facility] SN RN Member Role: Primary Care Nurse Name: Get Galo MD Position: [facility] Renal MD Member Role: Lifetime Consulting Physician Address: [address] [facility] [address] [facility] [place] [address]- [place] Telecom: Name: Lucy Bradford RN Position: [facility] RN Member Role: Primary Care Nurse Name: Familia Rivas NP Position: Reference Physician Member Role: Primary Care Nurse Address: [address] [place] [address]- Telecom: Care Team Related Persons Name: DARINE GONZÁLES Insurance Providers Guarantor name: SHERLY MAKI Health Plan Information #: 1 Payer: MEDICARE PART B OUTPT Member Number: NA Policy Number: NA Group Number: NA Health Plan Information #: 2 Payer: [place] Member Number: NA Policy Number: NA Group Number: NA
--- OUTSIDE RECORDS SUMMARY | 2024-02-02 10:02 | XMS_ITS | Continuity of Care Document ---
Author Organization [facility] Address [address] [place] [address] [address] [place] [address]- Care Team Providers Care Sustainable Communities Designer Name Role Phone Bea Lacey MD Primary Care Physician [phone] Encounter [facility] [place] Date(s): 12/22/23 - 01/21/24 [facility] [address] [address] Encounter Type: Triage Allergies, Adverse Reactions, Alerts No Known Medication Allergies Substance Criticality Severity Reaction Reaction Severity Status Grass Unable to assess criticality Intermittent watery eyes/runny nose Active Tape rash Active Immunizations Given and Recorded Vaccine Date Status Refusal Reason [id number] 12y+ bivalent booster vax 12/08/21 Recorded SARS-CoV-2 (COVID-19) mRNA BNT-162b2 vac 12/24/20 Recorded SARS-CoV-2 (COVID-19) mRNA-1273 vaccine 05/27/20 R ecorded SARS-CoV-2 (COVID-19) mRNA-1273 vaccine 04/29/20 R ecorded pneumococcal 23-valent vaccine 04/26/12 Given influenza virus vaccine, inactivated 04/26/12 Give n Pneumococcal Vaccine (oldterm) 1 01/01/06 Given 1Result Comment: lot # [id number] [id number] 08/20/06 PT INFO 09/04/04 Medications acetaminophen-oxycodone [...] 11 Refills, Maintenance, 12/13/23 12:27:00 PM EDT, [facility], Partial fill upon patient request [...] 1 Refills, Maintenance, 08/03/23 8:39:00 AM EDT, [facility], 172.71, cm, 07/07/23 15:48:00 EDT, [...] 3 Refills, Maintenance, 05/05/23 11:08:00 AM EDT, [facility], 172.71, cm, 04/22/23 15:06:00 EST, [...] 2:14:00 PM EDT, Route to Pharmacy Electronically, [facility], Partial fill upon patient request [...] Refills, Maintenance, 11/02/22 4:26:00 PM EDT, Tablet, [facility], Partial fill upon patient request [...] 10:27:00 AM EDT, Route to Pharmacy Electronically, [facility] 3, Partial fill upon patient request if the prescription is for a schedule II opioid drug., 172.72, cm, 12/09/23 8:03:00 EDT, Height, 97.6, kg, 12/08/23 15:42:00 EDT, Dry Weight Start Date: 12/09/23 Status: Ordered Quantity: 10.0 Unit: tablet Repeat number: 1 Pen [place], 29 G x 12.7 mm BD Ultra [...] 1 Refills, Maintenance, 09/05/23 12:02:00 PM EDT, [facility], 172.71, cm, 08/12/23 13:11:00 EDT, [...] Refills, Maintenance, 12/19/23 10:09:00 AM EDT, Capsule, [facility], Partial fill upon patient request [...] 11 Refills, Maintenance, 12/05/23 8:25:00 AM EDT, [facility], 172.71, cm, 11/07/23 13:35:00 EDT, Height, 94.4, kg, 11/07/23 13:35:00EDT, Dry Weight Start Date: 12/05/23 Status: Ordered Quantity: 30.0 Unit: tablet Repeat number: 1 Zoloft 50 mg oral tablet 1 tablet = 50 mg, By Mouth, Daily, # 30 tablet, 3 Refills, Maintenance, 11/13/20 3:26:00 PM EDT, Tablet, [facility], Partial fill upon patient request [...] Team Personnel Name: Darci Ayala RN Position: [facility] ED RN W/OE and Tasks Member Role: Primary Care Nurse Name: Niharika Reza RN Position: [facility] RN Member Role: Primary Care Nurse Name: Veronica Kapoor RN Position: [facility] RN Member Role: Primary Care Nurse Name: Jocelyn Villanueva RN Position: [facility] RN Member Role: Primary Care Nurse Name: Casimiro Alarcon RN Position: [facility] RN Member Role: Primary Care Nurse Name: Brenda Orr RN Position: [facility] RN Member Role: Primary Care Nurse Name: Chasidy Woodard RN Position: [facility] RN Member Role: Primary Care Nurse Name: Annalisa Aguilar RN Position: [facility] RN Member Role: Primary Care Nurse Name: Heavenly Sen RN Position: [facility] Hospital Methods Specialist Engineer Member Role: Primary Care Nurse Name: Nasima Garcia NP Position: Reference Physician Member Role: Primary Care Nurse Address: [address] [place] [address]- [place] Tele[place]: Name: Bea Lacey MD Position: [facility] Outreach Member Role: PCP Address: [address] [place] [address]- [place] Tele[place]: Name: Itzel Tirado MD Position: [facility] Cardiology MD Member Role: Lifetime Consulting Physician Address: [address] [facility] [address] [place] [address]- [place] Tele[place]: Name: Beatriz Lawrence RN Position: [facility] SN RN Member Role: Primary Care Nurse Name: Dorothea Fong RN Position: [facility] SN RN Member Role: Primary Care Nurse Name: Get Galo MD Position: [facility] Renal MD Member Role: Lifetime Consulting Physician Address: [address] [facility] [address] [facility] [place] [address]- [place] Tele[place]: Name: Lucy Bradford RN Position: [facility] RN Member Role: Primary Care Nurse Name: Familia Rivas NP Position: Reference Physician Member Role: Primary Care Nurse Address: [address] [place] [address]- [place] Tele[place]: Care Team Related Persons Name: DARIEN GONZÁLES Insurance Providers Guarantor name: SHERLY VARGAS Health Plan Information #: 1 Payer: MEDICARE PART B OUTPT Member Number: NA Policy Number: NA Group Number: NA Health Plan Information #: 2 Payer: [place] Member Number: NA Policy Number: NA Group Number: NA
== END 2024-02-02 09:56 | disposition home or self-care (01) ==
LOC: HO.HMGCLDS 09:55
PROVIDERS: PCP Student in an Organized Health Care Education/Training Program; Visit Provider Urology
DX: N39.0 Urinary tract infection, site not specified (principal)
CPT/HCPCS: 87086

== ENCOUNTER 2024-02-28 10:00 | Outpatient (REF) | payer MEDICARE, MEDICAID, SELFPAY ==
--- NOTE | ~2024-02-28 | XR_ITS ---
EXAMINATION: XR CHEST 2 VIEWS HISTORY: Lung Nodule COMPARISON: Comparison is made with the prior examination dated 05/02/2023. FINDINGS: PA and lateral views of the chest are submitted. A battery pack is noted in the left anterior chest wall. The lead extends into the left neck. The lungs are expanded and clear. There is no pleural effusion, pneumothorax, or pulmonary vascular congestion. The heart is normal in size. The patient is status post median sternotomy. A spinal stimulator is again seen in place. XR/XR chest 2V IMPRESSION: No acute cardiopulmonary abnormality. Electronically signed by: Markus Nicholson MD 03/01/2024 02:04 PM DAYSI
== END 2024-02-28 10:01 | disposition home or self-care (01) ==
LOC: HO.HMGCX 10:00
PROVIDERS: PCP Student in an Organized Health Care Education/Training Program; Visit Provider Student in an Organized Health Care Education/Training Program
DX: R91.8 Other nonspecific abnormal finding of lung field (principal)
CPT/HCPCS: 71046

== ENCOUNTER → 2024-02-28 10:04 | Outpatient (BNV) | payer MEDICARE, MEDICAID, SELFPAY | PROVIDERS: PCP Student in an Organized Health Care Education/Training Program; Visit Provider Radiology Diagnostic Radiology | DX: R91.8 Other nonspecific abnormal finding of lung field (principal) | CPT/HCPCS: 71046 ==

== ENCOUNTER 2024-03-01 12:38 | Outpatient (AMB) | payer MEDICARE, MEDICAID, SELFPAY ==
--- NOTE | 2024-03-01 12:56 | A.OFFVIS_ITS ---
Vital Signs 03/01/24 12:57 Height 5 ft 8 in Weight 203 lb BMI 30.9 BP 135/83 Blood Pressure Location Lt brachial Position Sitting Respiration 16 Pulse 86 Pulse Source Pulse Oximeter Intake Visit Reasons: ITDD REFILL Allergies grass pollen Allergy (Mild, Verified 03/01/24 13:01) unknown tree and shrub pollen Allergy (Mild, Verified 03/01/24 13:01) itchy eyes, sneeze, runny nose No Known Drug Allergies Allergy (Unknown, Verified 03/01/24 13:01) none plastic tape Allergy (Unknown, Uncoded 03/01/24 13:01) irritation Medication List - Last Reconciled 03/01/24 by Gini Edmondson LPN aspirin (Adult Aspirin Regimen) 81 mg PO DAILY baclofen 20 mg PO TID bisacodyl (Dulcolax (bisacodyl)) 10 mg (2 x 5 mg) PO ONCE 2 days bupropion HCl XL 300 mg PO QAM calcium carbonate-vitamin D3 600 mg-10 mcg (400 unit) 1 tab PO BID cephalexin 1,000 mg (2 x 500 mg) PO Q8H 14 days cetirizine 1 tab PO .DAILY@NOON clonazepam 0.5 mg PO TID dapagliflozin propanediol (Farxiga) 10 mg PO DAILY diphenhydramine HCl 50 mg (2 x 25 mg) PO Q6H PRN 3 days docusate sodium 200 mg PO BID eplerenone 25 mg PO .DAILY@NOON esomeprazole magnesium 40 mg PO BID famotidine 40 mg PO BEDTIME finasteride 5 mg PO DAILY flash glucose sensor (FreeStyle Verito 2 Sensor kit) As directed fluticasone propionate 50 mcg/actuation 1 spray intranasal DAILY gabapentin 300 mg PO DAILY hydroxyzine pamoate 25 mg PO BID PRN insulin glargine (Basaglar KwikPen U-100 Insulin) 13 units subcut BEDTIME isosorbide mononitrate ER 2 tabs PO QAM L.acidophil-L.plantar-Bifido 7 25 billion cell (up4 Probiotics Adult 50 Plus) 1 cap PO BID 14 days lisinopril 10 mg PO DAILY melatonin 2 tabs PO DAILY methylnaltrexone (Relistor) 450 mg (3 x 150 mg) PO DAILY mirtazapine 1 tab PO DAILY naloxone 4 mg/actuation 4 mg intranasal Q3M PRN 1 day nitroglycerin 0.4 mg sublingual ONCE PRN oxycodone-acetaminophen 7.5-325 mg (Percocet) 1 tab PO Q6H PRN 21 days pen needle, diabetic As directed pilocarpine HCl 5 mg PO BID plecanatide (Trulance) 3 mg PO DAILY polyethylene glycol 3350 17 grams PO DAILY polyethylene glycol 3350 (Miralax) 17 grams PO DAILY 1 day prazosin 5 mg PO DAILY primidone 250 mg PO BID rivaroxaban (Xarelto) 20 mg PO DAILY@1700 rosuvastatin 40 mg PO DAILY sertraline 150 mg PO BEDTIME sucralfate 1 g PO BID tamsulosin 0.4 mg PO .BID@NOON+BEDTIME torsemide 20 mg PO DAILY [Vitamin D3 25 mcg PO DAILY] HPI Comments Details: Malik is in my office today to perform intrathecal pain pump refill. He reports pain 03/02 today, he receives continuous 15 micro g of hydromorphone a day and 1 morning dose of the hydromorphone flex 14 micro g. Patient is very satisfied with this treatment however he reports right-sided paresthesia on the lateral side above the level of the pump. His primary care physician send him for x- ray. He is going for brain surgery in March. He is here for pump refill and refill is as below. Prior: History of bilateral paintech sacroiliac joint stabilization with fusion. He had significant improvement however he fell in his kitchen and started to experience lot of pain again. He was sent for the x-ray of the pelvis and it appears to be that although both implantation elements are in sacroiliac joints 1 of them got shifted vertical it to the upper portion of the joint and now has a lesser chance to provide enough of the space to form the sacroiliac bridge. Most likely that is why patient started to experience pain again. We decided to treat his pain with addition of the opioids into intrathecal pain pump. For his next pump refill I will fill it up with hydromo rphone 150 micro g per mL and bupivacaine 8 milligrams/mL. I will continue to increase concentration of hydromorphone until patient's satisfaction. To temporize his pain level now I will prescribe him short course of Percocet see as below. He is interested in sacroiliac joint fusion now performed by the surgeon with surgical screws. We will find out where this procedure can not be performed and we will refer patient there. He also would like to call [employer] sales representative and ask him to increase stimulation levels on the machine Prior: This patient is very unfortunate gentleman who is suffering from multiple pain generators. He received multiple forms of treatment to concur the existing pain generators pain. He tried multiple sessions of physical therapy in the past and he continues from time to time to return to his home exercise program to help his pain. He tried multiple medications including NSAIDs muscle relaxants and opioids. NSAIDs give him severe side effects. He is very much concerned about addictive properties of opioids. He reports muscle relaxants help his pain minimally if any. He in the past was injected with multiple procedures including medial branch blocks, radiofrequency ablations, facet joint injections, and eventually he was not very satisfied with results of this injections. He was implanted with [employer] spinal cord stimulator which he reports helped his pain radiating into the bilateral lower extremities. He also reported axial back pain aggravated with sitting and flexing forward and on the MRI he was discovered with Modic type changes in the lumbar spine. Intraseptal procedure was performed with good results for pain aggravated with prolonged sitting however pain which is lower than the lumbar spine in the projection of his pelvis actually getting worse background of alleviated lumbar spine pain. To treat this condition he was implanted with intrathecal pain pump however the intrathecal pain pump was not very instrumental to alleviate his pain. He still receives intrathecal pain pump bupivacaine only however reports significant and advanced pain in the projection of the bilateral sacroiliac joints. He had MRI of the lumbar spine which did not demonstrate any red flags and he did have abdominal and pelvic CT scan which did not demonstrate in pelvis any abnormalities which could be suspected as the pain generators related to sacroiliac joint, sacral bones or iliac bones. 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, lumbar region PVD (peripheral vascular disease) Mood disorder On beta ruddy at home Benign essential tremor CVA (cerebral vascular accident) IDDM (insulin dependent diabetes mellitus) Sleep apnea Chronic renal insufficiency Myocardial infarction CHF (congestive heart failure) CAD (coronary artery disease) AAA (abdominal aortic aneurysm) Arrhythmia On anticoagulant therapy Elevated cholesterol HTN (hypertension) History of ischemic cardiomyopathy 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 Surgical History Hx of shoulder surgery History of laparoscopic cholecystectomy (12/08/22) History of surgery History of surgery History of PTCA Hx of parathyroidectomy Hx of CABG History of hernia repair Hx of gastric bypass Hx of endoscopy History of colonoscopy Family History Father Hx of congenital heart disease Mother Hx of heat stroke Social History Household Members: None Housing: Apartment Are you a primary customer care associate to a significant other at home: No Do you presently have visiting nurse or other home services: 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) Alcohol intake: current Alcohol intake frequency: holidays/special occasions only Comment: counts correct Patient Tobacco Use Status: Former Tobacco user Tobacco use type: Cigarette Second Hand Smoke Exposure: No Review of Systems Const All systems reviewed & are unremarkable except as noted in HPI and below ENT Reports Normal hearing present Neuro Reports Normal hearing present and Denies Abnormal speech present Physical Exam Vital Signs: Last Vital Signs Pulse 86 03/01/24 12:57 Resp 16 03/01/24 12:57 BP 135/83 03/01/24 12:57 BMI result Body Mass Index 30.9 Const General: cooperative, no acute distress, alert and well groomed Orientation/consciousness: patient oriented x3 HEENT Head: Yes normocephalic and Yes atraumatic Ears: hearing grossly normal bilaterally Eyes General: appearance normal, both eyes and all related structures Eyelids: Yes eyelids normal Pupils: Equal, round and reactive pupils present EOM: EOMs intact bilaterally Neck Neck: Yes normal visual inspection and Yes no JVD Resp Effort & Inspection: normal respiratory effort, able to speak in complete sentences and no audible wheezes Cardio Jugular venous distension: no JVD Back/Spine/Pelvis Other: Tenderness of palpation paraspinal spinal region in the entire spine cervical thoracic and lumbar. SLR is negative with foot dorsiflexion. Flexing forward aggravates the pain. Flexing backwards does not change the pain. James test, Gaenslen test, pelvic compression test, pelvic destruction test, positive on the left as well as on the right. Neuro General: patient oriented x3, moves all extremities and Normal light touch and pain sensation Cranial nerves: Yes Equal, round and reactive pupils present and Yes Normal hearing present Cognition (Neuro): normal cognition Speech: No Abnormal speech present Assessment & Plan Assessment & Plan (1) Chronic left sacroiliac joint pain: Code(s): M53.3 - Sacrococcygeal disorders, not elsewhere classified; G89.29 - Other chr onic pain Category: Medical Plan: Change of the medication is as below. Although he lives alone I will prescribe naloxone for him. (2) Sacroiliitis: Code(s): M46.1 - Sacroiliitis, not elsewhere classified Category: Medical (3) Vertebrogenic low back pain: Code(s): M54.51 - Vertebrogenic low back pain Category: Medical (4) Chronic pain syndrome: Code(s): G89.4 - Chronic pain syndrome Category: Medical (5) Poorly controlled type 2 diabetes mellitus: Code(s): E11.65 - Type 2 diabetes mellitus with hyperglycemia Category: Medical Plan Intrathecal pump refill . HE PATIENT CAME TODAY in the office FOR THE CHANGE OF THE MEDICATION IN her PAIN PUMP. The name and date of were verified and informed consent was obtained for the procedure. ?The pump was interrogated and the residual amount of fluid was found to be 28.7 mL. He WAS POSITIONED left lateral decubitus on the bed AND THE AREA OF THE INTRATHECAL PUMP on the right flank WAS PREPPED WITH CHLORAPREP. The fenestrated drape was sterilely applied over the area of the pump. Sterile gloves were worn and of the aspiration system was assembled containing 2 in 22 gauge noncoring needle, the needle was connected to extension tubing which was connected to the 20 cc sterile syringe. The pain pump was palpated under the skin in the p brett's right upper flank under the right rib. The needle was inserted through the skin and the central plug of the pain pump and fluid was aspirated. The clear fluid was going into the syringe the total amount of the fluid was 6.1ml. After that a new batch? of medication was obtained which was containing bupivacaine mg per ml. The admixture was made in two 20 cc syringe prepared by [facility] compounding pharmacy. The syringe was connected to the bacterial filter, and then connected to the extension tubing. The new medication comprised of hydromorphone 0.15 milligrams/mL, bupivacaine 8 milligrams/mL in preservative- free normal saline total of 40 mL. Flex rate of the administration of hydromorphone was chosen to be 15 micro g per continuous per day day and the patient is receiving flex dose 07:00 o'clock in the morning 14 micro g. Coding Level of Care Code Est Pt Level 3 (63414) Procedure Only Diagnoses Chronic left sacroiliac joint pain M53.3; G89.29 Sacroiliitis M46.1 Vertebrogenic low back pain M54.51 Chronic pain syndrome G89.4 Poorly controlled type 2 diabetes mellitus E11.65
[2024-03-01 12:57] VITALS: BP 135/83; PULSE 86; RESP 16; BMI 30.9
== END 2024-03-01 13:21 | disposition home or self-care (01) ==
PROVIDERS: PCP Student in an Organized Health Care Education/Training Program; Visit Provider Anesthesiology
DX: M53.3 Sacrococcygeal disorders, not elsewhere classified (principal); G89.29 Other chronic pain; M46.1 Sacroiliitis, not elsewhere classified; M54.51 Vertebrogenic low back pain; Z45.1 Encounter for adjustment and management of infusion pump; G89.4 Chronic pain syndrome; E11.65 Type 2 diabetes mellitus with hyperglycemia
CPT/HCPCS: 62370; 99213

== ENCOUNTER → 2024-03-01 12:38 | Outpatient (BNVA) | payer MEDICARE, MEDICAID, SELFPAY | PROVIDERS: PCP Student in an Organized Health Care Education/Training Program; Visit Provider Anesthesiology | DX: Z45.89 Encounter for adjustment and management of other implanted devices (principal); M53.3 Sacrococcygeal disorders, not elsewhere classified; M46.1 Sacroiliitis, not elsewhere classified; M54.51 Vertebrogenic low back pain; E11.65 Type 2 diabetes mellitus with hyperglycemia; G89.29 Other chronic pain | CPT/HCPCS: 62370; 99212 ==

== ENCOUNTER 2024-03-05 10:00 | Outpatient (RCR) | payer MEDICARE, MEDICAID, SELFPAY ==
--- NOTE | 2024-02-24 14:58 | MHC.PT.EP ---
[facility] [place] Office [place] Office [place] Office [address] Fredrick Cota [address] [phone] F: [phone] F: [phone] F: [phone] F: [phone] Physical Therapy Plan of Care Date of Evaluation: 02/24/24 Date of Surgery: n/a Diagnosis: cervicalgia Assessment: Patient is a 73 year old male presenting to PT with complaints of pain in his neck. Pt reports onset of pain began worsening about 6 months ago due to insidious onset. He presents today with impairments in pain, cervical ROM, posture. 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 Pt expresses residential goal of reducing pain, and is motivated to work towards this in PT. Clinical presentation today is most consistent with signs and sx associated with neck pain and pt will benefit from skilled PT 2 week x 2 weeks to address the following problems and impairments noted upon evaluation: pain, cervical ROM, posture. Pt will then be d/c from skilled PT services as he is having a brain procedure which requires overnight hospitalization which will result in a change of status. Pt will need to be cleared by that surgeon prior to new PT evaluation being completed. These problems limit the patient with the following functional activities: ADLs. The prescribed treatment plan of care is medically necessary. Co-morbidities of hx cardiac arrest, hx ID (extensive cardiac hx), hx CVA, tremor, CHF, on blood thinners, DM, afib, intrathecal pain pump lumbar were identified and taken into considerations of plan of care. Pt was educated on HEP, role of PT, prognosis, POC. Frequency and Duration: The patient will be seen 2 x week x 2 weeks Short Term Goals: Pt will demonstrate compliance with reading and sleeping positioning in 1 week. Concrete Mason Goals: Pt will demonstrate improved NDI score by 5% in 2 weeks for improved functional mobility. Pt will demonstrate less pain in his neck < 7/10 in 2 weeks for improved tolerance to ADLs. Treatment Plan: Modalities to reduce pain, spasms and effusion. Manual therapy to restore motion and function. Therapeutic exercise to improve strength and flexibility. Neuromuscular re-education for posture and balance. Therapeutic activities to return to functional activities of daily living. Electronically signed by: Montserrat Abrams, PT, DPT, ATC Please sign and return to therapist. Thank you for your referral.
--- NOTE | 2024-03-05 10:17 | MHC.PT.DC ---
[facility] [place] Office [place] Office [place] Office [address] Fredrick Cota [address] [phone] F: [phone] F: [phone] F: [phone] F: [phone] Physical Therapy Discharge Report Diagnosis: cervicalgia Date of Surgery: n/a Date of Evaluation: 02/24/24 Date of Discharge: 03/05/24 Treatments to Date: 2 Cancellations to Date: No Shows to Date: Discharge Status: Patient Elected to Stop Discharge Summary: 03/05/2024: Pt presented to his appointment stating he does not want to do PT anymore. States he felt no different after last session. Pain is still there but is not worse. He feels he manages his pain better at home with his cane that he uses to massage. Therefore pt is requesting to be d/c. Pt again insisting that he there is an order for his back. We still have not received it and advised pt to call Dr. Gates's office. Pt d/c today. Electronically signed by: Montserrat Abrams, PT, DPT, ATC Please sign and return to therapist. Thank you for your referral.
== END 2024-03-05 10:18 | disposition home or self-care (01) ==
LOC: HO.PTCHIC 10:00
PROVIDERS: PCP Student in an Organized Health Care Education/Training Program; Visit Provider Anesthesiology
DX: M54.2 Cervicalgia (principal)
CPT/HCPCS: 97110; 97140; 97163

== ENCOUNTER 2024-05-28 14:02 | Outpatient (AMB) | payer MEDICARE, MEDICAID, SELFPAY ==
--- NOTE | 2024-05-28 14:10 | MHC.OFFVIS ---
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 Required: No Allergies grass pollen Allergy (Mild, Verified 05/28/24 14:13) unknown tree and shrub pollen Allergy (Mild, Verified 05/28/24 14:13) itchy eyes, sneeze, runny nose No Known Drug Allergies Allergy (Unknown, Verified 05/28/24 14:13) none plastic tape Allergy (Unknown, Uncoded 05/28/24 14:13) irritation Medication List - Last Reconciled 05/28/24 by Gini Edmondson LPN aspirin (Adult Aspirin Regimen) 81 mg PO DAILY baclofen 20 mg PO TID bisacodyl (Dulcolax (bisacodyl)) 10 mg (2 x 5 mg) PO ONCE 2 days bupropion HCl XL 300 mg PO QAM calcium carbonate-vitamin D3 600 mg-10 mcg (400 unit) 1 tab PO BID cetirizine 1 tab PO .DAILY@NOON cholecalciferol (vitamin D3) (Vitamin D3) 25 mcg PO DAILY clonazepam 0.5 mg PO TID dapagliflozin propanediol (Farxiga) 10 mg PO DAILY diphenhydramine HCl 50 mg (2 x 25 mg) PO Q6H PRN 3 days docusate sodium 200 mg PO BID eplerenone 25 mg PO .DAILY@NOON esomeprazole magnesium 40 mg PO BID famotidine 40 mg PO BEDTIME finasteride 5 mg PO DAILY flash glucose sensor (FreeStyle Verito 2 Sensor kit) As directed fluticasone propionate 50 mcg/actuation 1 spray intranasal DAILY gabapentin 300 mg PO DAILY hydroxyzine pamoate 25 mg PO BID PRN isosorbide mononitrate ER 2 tabs PO QAM L.acidophil-L.plantar-Bifido 7 25 billion cell (up4 Probiotics Adult 50 Plus) 1 cap PO BID 14 days lisinopril 10 mg PO DAILY melatonin 10 mg PO BEDTIME methylnaltrexone (Relistor) 450 mg (3 x 150 mg) PO QAM mirtazapine 1 tab PO BEDTIME naloxone 4 mg/actuation 4 mg intranasal Q3M PRN 1 day nitroglycerin 0.4 mg sublingual ONCE PRN pen needle, diabetic As directed pilocarpine HCl 5 mg PO BID plecanatide (Trulance) 3 mg PO DAILY polyethylene glycol 3350 (Miralax) 17 grams PO DAILY 1 day prazosin 5 mg PO DAILY primidone 250 mg PO BID rivaroxaban (Xarelto) 20 mg PO DAILY@1700 rosuvastatin 40 mg PO DAILY sertraline 150 mg PO BEDTIME sodium,potassium,mag sulfates 17.5-3.13-1.6 gram (Suprep Bowel Prep Kit) DILUTE each bottle with 16oz of water; drink first bottle 5pm evening before procedure AND second bottle at 11pm; follow each bottle with at least 32 oz.of water within 1 hour after each bottle sucralfate 1 g PO BID tamsulosin 0.4 mg PO .BID@NOON+BEDTIME torsemide 20 mg PO DAILY HPI Comments Details: Malik is in my office today to interrogate his pain pump. He was under care of neurosurgery at [facility] to treat his tremor. He went for MRI after the procedure. His pain pump exhibits signs of a stall, this is appropriate finding. However patient reports that his pain is intractable and severe. The pump was interrogated as below and doses were increased as below. Prior: History of bilateral paintech sacroiliac joint stabilization with fusion. He had significant improvement however he fell in his kitchen and started to experience lot of pain again. He was sent for the x-ray of the pelvis and it appears to be that although both implantation elements are in sacroiliac joints 1 of them got shifted vertical it to the upper portion of the joint and now has a lesser chance to provide enough of the space to form the sacroiliac bridge. Most likely that is why patient started to experience pain again. We decided to treat his pain with addition of the opioids into intrathecal pain pump. For his next pump refill I will fill it up with hydromorphone 150 micro g per mL and bupivacaine 8 milligrams/mL. I will continue to increase concentration of hydromorphone until patient's satisfaction. To temporize his pain level now I will prescribe him short course of Percocet see as below. He is interested in sacroiliac joint fusion now performed by the surgeon with surgical screws. We will find out where this procedure can not be performed and we will refer patient there. He also would like to call [employer] off premise service representative and ask him to increase stimulation levels on the machine Prior: This patient is very unfortunate gentleman who is suffering from multiple pain generators. He received multiple forms of treatment to concur the existing pain generators pain. He tried multiple sessions of physical therapy in the past and he continues from time to time to return to his home exercise program to help his pain. He tried multiple medications including NSAIDs muscle relaxants and opioids. NSAIDs give him severe side effects. He is very much concerned about addictive properties of opioids. He reports muscle relaxants help his pain minimally if any. He in the past was injected with multiple procedures including medial branch blocks, radiofrequency ablations, facet joint injections, and eventually he was not very satisfied with results of this injections. He was implanted with [employer] spinal cord stimulator which he reports helped his pain radiating into the bilateral lower extremities. He also reported axial back pain aggravated with sitting and flexing forward and on the MRI he was discovered with Modic type changes in the lumbar spine. Intraseptal procedure was performed with good results for pain aggravated with prolonged sitting however pain which is lower than the lumbar spine in the projection of his pelvis actually getting worse background of alleviated lumbar spine pain. To treat this condition he was implanted with intrathecal pain pump however the intrathecal pain pump was not very instrumental to alleviate his pain. He still receives intrathecal pain pump bupivacaine only however reports significant and advanced pain in the projection of the bilateral sacroiliac joints. He had MRI of the lumbar spine which did not demonstrate any red flags and he did have abdominal and pelvic CT scan which did not demonstrate in pelvis any abnormalities which could be suspected as the pain generators related to sacroiliac joint, sacral bones or iliac bones. 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, lumbar region PVD (peripheral vascular disease) Mood disorder On beta ruddy at home Benign essential tremor CVA (cerebral vascular accident) IDDM (insulin dependent diabetes mellitus) Sleep apnea Chronic renal insufficiency Myocardial infarction CHF (congestive heart failure) CAD (coronary artery disease) AAA (abdominal aortic aneurysm) Arrhythmia On anticoagulant therapy Elevated cholesterol HTN (hypertension) History of ischemic cardiomyopathy 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 Surgical History (Updated 05/21/24 @ 10:18 by Niki Ortiz, CRISTELA) History of surgery History of surgery (~2023) Hx of brain surgery (05/10/24) Hx of shoulder surgery History of laparoscopic cholecystectomy (12/08/22) History of surgery History of surgery History of PTCA Hx of parathyroidectomy Hx of CABG History of hernia repair Hx of gastric bypass Hx of endoscopy History of colonoscopy Family History Father Hx of congenital heart disease Mother Hx of heat stroke Social History (Updated 05/21/24 @ 09:54 by Niki Ortiz, CRISTELA) Household Members: None Housing: Apartment Are you a primary career technical counselor to a significant other at home: No Do you presently have visiting nurse or other home services: Yes (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) Alcohol intake: current Alcohol intake frequency: does not drink Comment: counts correct Patient Tobacco Use Status: Former Tobacco user Tobacco use type: Cigarette Second Hand Smoke Exposure: No Review of Systems Const All systems reviewed & are unremarkable except as noted in HPI and below ENT Reports Normal hearing present Neuro Reports Normal hearing present and Denies Abnormal speech present Physical Exam Vital Signs: Last Vital Signs Pulse 90 05/28/24 14:12 Resp 16 05/28/24 14:12 BP 135/74 05/28/24 14:12 Pulse Ox 95 05/28/24 14:12 Oxygen Delivery Method Room Air 05/28/24 14:12 BMI result Body Mass Index 29.5 Const General: cooperative, no acute distress, alert and well groomed Orientation/consciousness: patient oriented x3 HEENT Head: Yes normocephalic and Yes atraumatic Ears: hearing grossly normal bilaterally Eyes General: appearance normal, both eyes and all related structures Eyelids: Yes eyelids normal Pupils: Equal, round and reactive pupils present EOM: EOMs intact bilaterally Neck Neck: Yes normal visual inspection and Yes no JVD Resp Effort & Inspection: normal respiratory effort, able to speak in complete sentences and no audible wheezes Cardio Jugular venous distension: no JVD Back/Spine/Pelvis Other: Tenderness of palpation paraspinal spinal region in the entire spine cervical thoracic and lumbar. SLR is negative with foot dorsiflexion. Flexing forward aggravates the pain. Flexing backwards does not change the pain. James test, Gaenslen test, pelvic compression test, pelvic destruction test, positive on the left as well as on the right. Neuro General: patient oriented x3, moves all extremities and Normal light touch and pain sensation Cranial nerves: Yes Equal, round and reactive pupils present and Yes Normal hearing present Cognition (Neuro): normal cognition Speech: No Abnormal speech present Assessment & Plan Assessment & Plan (1) Chronic left sacroiliac joint pain: Code(s): M53.3 - Sacrococcygeal disorders, not elsewhere classified; G89.29 - Other chronic pain Category: Medical (2) Sacroiliitis: Code(s): M46.1 - Sacroiliitis, not elsewhere classified Category: Medical (3) Vertebrogenic low back pain: Code(s): M54.51 - Vertebrogenic low back pain Category: Medical (4) Chronic pain syndrome: Code(s): G89.4 - Chronic pain syndrome Category: Medical (5) Poorly controlled type 2 diabetes mellitus: Code(s): E11.65 - Type 2 diabetes mellitus with hyperglycemia Category: Medical Plan: He reports severe pain after he has spent some time in hospital probably receiving intravenous opioid medications. Most likely he developed tolerance to the previous doses. Pump adjustment as below. He is scheduled for pump refill already. We will see him then and evaluate his condition at that time. Plan Intrathecal pump interrogation and adjustment. . HE PATIENT CAME TODAY in the office for the interrogation of the pain pump and adjustment of the doses. He was on admixture on hydromorphone 150 micro g per mL and bupivacaine 8 milligrams/mL. He was using continuous rate 14.8 6 micro g a day with 1 bolus dose over the 15 minutes of 15 micro g administered to patient at 08:30 a.m. to 08:45. Today we changed continuous dose to hydromorphone 22 micro g a day and on 832 08:45 he will receive additional 22.6 micro g which will bring his total dose from 30 micro g a day to 45 micro g a day. Coding Level of Care Code Est Pt Level 3 (12050) Procedure Only Diagnoses Chronic left sacroiliac joint pain M53.3; G89.29 Sacroiliitis M46.1 Vertebrogenic low back pain M54.51 Chronic pain syndrome G89.4 Poorly controlled type 2 diabetes mellitus E11.65
[2024-05-28 14:12] VITALS: BP 135/74; PULSE 90; RESP 16; O2SAT 95; BMI 29.5
--- OUTSIDE RECORDS SUMMARY | 2024-05-28 16:47 | XMS_ITS | Encounter Summary ---
Author Organization [employer] Address [address] [place] [address] Care Team Providers Care Carding Utility Tender Name Role Phone Bea Lacey MD Primary Care Provider [phone] Encounter Details Date Type Department Care Team (Late st Contact Info) Description 07/14/2023 Orders Only [facility] MED & PEDS [address] [place], [place] [phone] ProviderTia MD Social History Tobacco Use Types Packs/Day Years Used Date Smoking Tobacco: Former Cigarettes Passive Smoke Exposure: Never Smokeless Tobacco: Never Alcohol Use Standard Drinks/Week Comments Never 0 (1 standard drink = 0.6 oz pur e alcohol) Depression Answer Date Recorded Patient Health Questionnaire-9 Score 20 06/03/2023 Patient Health Questionnaire-9 Score 20 06/03/2023 Last PHQ-9: Questionnaire Data Not on file 0 06/03/2023 Housing Stability Answer Date Recorded What is your housing situation today? I have zoe abreu 12/08/[address] you li ve. Do you have problems with any of the following? None of the above 12/08/2022 Food Insecurity Answer Date Recorded Within the past 12 months, y ou worried that your food would run out before you got money to buy more: Sometimes True 2022 Within the past 12 months,th e food you bought just didn't last and you didn't have enough money to get more: Sometimes True 12/08/2022 Transportation Answer Date Recorded In the past 12 months, has l ack of transportation kept you from medical appts, meetings, work or from getting things needed for daily living? No 12/08/2022 Utilities Answer Date Recorded In the past 12 months, has t he electric, gas, oil or water company threatened to shut off services in your home? No 12/08/2022 Depression Answer Date Recorded Patient Health Questionnaire-2 Score 5 06/03/2023 Sex and Gender Information Value Date Recorded Sex Assigned at Male 12/21/2021 10:17 AM EDT Legal Sex Male 10:17 AM EDT Gender Identity Choose not to disclose 10:17 AM EDT Sexual Orientation Choose not to disclose 2021 10:17 AM EDT documented as of this encounter Plan of Treatment Upcoming Encounters Date Type Department Care Team (Late st Contact Info) Description 07/26/2024 9:30 AM EDT Office Visit [facility] CHC MED & PEDS [address] [place] [address] Bea Lacey MD [address] [place] [address] documented as of this encounter Procedures Procedure Name Priority Date/Time Associated Diagnosis Comments POLYSOMNOGRAM Routine 07/11/2023 11:08 AM EDT documented in this encounter Results * Polysomnography (07/11/2023 11:08 AM EDT) us Historical Provider [facility] ORDERABLES F inal Result documented in this encounter Visit Diagnoses Not on filedocumented in this encounter Additional Health Concerns Assessment Noted Time PHQ-9 Depression Total Score: 20 024 10:22 AM EDT documented as of this encounter Care Teams Carding Utility Tender Relationship Specialty Start Date End Date Bea Lacey MD [address] [place] [address] PCP - General Family Medicine 09/22/22 documented as of this encounter
--- OUTSIDE RECORDS SUMMARY | 2024-05-28 16:47 | XMS_ITS | Encounter Summary ---
Author Organization [employer] Address [address] [place] [address] Care Team Providers Care Toll Test Worker Name Role Phone Bea Lacey MD Primary Care Provider [phone] Reason for Visit * Reason Onset Date Comments Med Refill 10/06/2023 Encounter Details Date Type Department Care Team ([facility] st Contact Info) Description 10/06/2023 Telephone [facility] MEDICINE [address] [place], [place] [phone] Bea Lacey MD [address] [place] [address] Med Refill Social History Tobacco Use Types Packs/Day Years [...] AM EDT documented as of this encounter Miscellaneous Notes * Telephone Encounter - Graham Hall - 10/06/2023 9:27 AM EDT TC from pt requesting medication refill. Medications needing refill: Insulin Pen Needle 32G X 4 MM To be sent to: [facility] documented in this encounter Plan of Treatment Upcoming Encounters Date Type Department Care Team (Late st Contact Info) Description 07/26/2024 9:30 AM EDT Office Visit [facility] MED & PEDS [address] [place] [address] Bea Lacey MD [address] [place] [address] documented as of this encounter Visit Diagnoses Not on filedocumented in this encounter Additional Health Concerns Assessment Noted Time PHQ-9 Depression Total Score: 20 024 10:22 AM EDT documented as of this encounter Care Teams Toll Test Worker Relationship Specialty Start Date End Date Bea Lacey MD [address] [place] [address] PCP - General Family Medicine 09/22/22 documented as of this encounter
--- OUTSIDE RECORDS SUMMARY | 2024-05-28 16:47 | XMS_ITS | Encounter Summary ---
Author Organization [employer] Address [address] [facility] [facility] [facility] [address] [place] [address] Care Team Providers Care Athletic Gear Custodian Name Role Phone Bea Lacey MD Primary Care Provider [phone] Reason for Visit * Reason Onset Date Comments Nurse Triage 11/08/2023 Encounter Details Date Type Department Care Team ([facility] Contact Info) Description 11/08/2023 Telephone C [facility] MED & PEDS [address] [place] [phone] Bea Lacey MD [address] [place] [address] Nurse Triage Social History Tobacco Use Types Packs/Day Years [...] encounter Miscellaneous Notes * Telephone Encounter - Jf Gonzalez RN - 11/09/2023 3:55 PM EDT Please see triage message below. Pt has an appointment with you tomorrow AM. * Telephone Encounter - Nita Wilson LPN - 11/08/2023 3:36 PM EDT Triage call placed to patient who reports that he is having problems with alarms for low BG at night. Patient on glargine 13 units in the evening. Has held in now for two doses and this morning BG ACwas 69 BG running 65-69 after Insulin hold for two days. Patient reports back surgery a month ago and is now walking up to two miles daily. Patient has been addressing low BG at night with taking tspof sugar but after retuning to bed alarms go off in an hour or so. Patient advised of options of HSsnack of carb with fat and protein to sustain him at night. Patient will hold insulin and wait for instructions for use. Patient has upcoming appt on with PCP . Team tasked to review Insulin dose with PCP and update patient with instructions. Patient has manual BG monitor and will calibrate low readings with freestyle with fingerstick. Protocol Used: Diabetes - Low Blood Sugar (Adult) Protocol-Based Disposition: Discuss with PCP and Callback by Nurse Today Video visit not offered Positive Triage Question: * Morning (before breakfast) blood glucose < 80 mg/dL (4.4 mmol/L) and more than once in past week * All higher-acuity triage questions were negative Care Advice Discussed: * Measure and Record Your Blood Glucose * Low Blood Sugar - Expected Course * Reasons To Call Back - Symptoms do not improve within 30 minutes - Sleepiness or confusion occur - You become worse * Reasons To Call Back - Morning blood glucose under 80 mg/dL (4.4 mmol/L) more than once in a week - Bedtime blood glucose under 100 mg/dL (5.6 mmol/L) more than once in a week - You have more questions - You become worse * Telephone Encounter - Hannah Chen - 11/08/2023 3:12 PM EDT Symptoms: Low Blood Sugar - Caller Reports Outcome: Schedule an urgent appointment (within 1 hour) or talk to a nurse or provider soon Reason: Getting worse The caller accepted this outcome. Please contact pt at [phone] documented in this encounter Plan of Treatment Upcoming Encounters Date Type Department Care Team (Late st Contact Info) Description 07/26/2024 9:30 AM EDT Office Visit [facility] CHC MED & PEDS [address] [place] [address] Bea Lacey MD [address] [place] [address] documented as of this encounter Visit Diagnoses Not on filedocumented in this encounter Additional Health Concerns Assessment Noted Time PHQ-9 Depression Total Score: 20 024 10:22 AM EDT documented as of this encounter Care Teams Athletic Gear Custodian Relationship Specialty Start Date End Date Bea Lacey MD [address] [place] [address] PCP - General Family Medicine 09/22/22 documented as of this encounter
--- OUTSIDE RECORDS SUMMARY | 2024-05-28 16:47 | XMS_ITS | Encounter Summary ---
Author Organization [employer] Address [address] [place] [address] Care Team Providers Care Card Stripper Name Role Phone Bea Lacey MD Primary Care Provider [phone] Reason for Visit * Reason Onset Date Comments Referral 05/28/2024 Encounter Details Date Type Department Care Team ([facility] st Contact Info) Description 05/28/2024 Telephone [facility] MEDICINE [address] [place], [place] [phone] Bea Lacey MD [address] [place], [place] [phone] Referral Social History Tobacco Use Types Packs/Day Years [...] encounter Miscellaneous Notes * Telephone Encounter - Elias Santiago - 05/28/2024 4:14 PM EDT Tc from pt requesting referral for a gastroenterology prefer location [facility] be [facility] , pt stated will not deal wit [facility] documented in this encounter Plan of Treatment Upcoming Encounters Date Type Department Care Team (Late st Contact Info) Description 07/26/2024 9:30 AM EDT Office Visit [facility] MED & PEDS [address] [place] [address] Bea Lacey MD [address] [place] [address] documented as of this encounter Visit Diagnoses Not on filedocumented in this encounter Additional Health Concerns Assessment Noted Time PHQ-9 Depression Total Score: 20 024 10:22 AM EDT documented as of this encounter Care Teams Card Stripper Relationship Specialty Start Date End Date Bea Lacey MD [address] [place] [address] PCP - General Family Medicine 09/22/22 documented as of this encounter
--- OUTSIDE RECORDS SUMMARY | 2024-05-28 16:47 | XMS_ITS | Encounter Summary ---
Author Organization [employer] Address [address] [facility] [address] [place] [address] Care Team Providers Care Automobile Tester Name Role Phone Bea Lacey MD Primary Care Provider [phone] Reason for Visit * Reason Comments Med Refill Encounter Details Date Type Department Care Team ([facility] st Contact Info) Description 05/26/2024 Refill [facility] CHC MED & PEDS [address] [place], [place] [phone] Bea Lacey MD [address] [place], [place] [phone] Chronic idiopathic constipation Social History Tobacco Use Types Packs/Day Years [...] Upcoming Encounters Date Type Department Care Team ([facility] st Contact Info) Description 07/26/2024 9:30 AM EDT Office Visit [facility] MED & PEDS [address] [place] [address] Bea Lacey MD [address] [place] [address] documented as of this encounter Visit Diagnoses Diagnosis Chronic idiopathic constipation Unspecified constipation documented in this encounter Additional Health Concerns Assessment Noted Time PHQ-9 Depression Total Score: 20 024 10:22 AM EDT documented as of this encounter Care Teams Automobile Tester Relationship Specialty Start Date End Date Bea Lacey MD [address] [place] [address] PCP - General Family Medicine 09/22/22 documented as of this encounter
--- OUTSIDE RECORDS SUMMARY | 2024-05-28 16:47 | XMS_ITS | Encounter Summary ---
Author Organization [employer] Address [address] [place] [address] [address] [place] [address] Care Team Providers Care Deputy Sheriff Generalist Name Role Phone Godron Mills MD Primary Care Prov ider Bea Lacey MD Primary Care Provider [phone] Encounter Details Date Type Department Care Team (Latest Contact Info) Description 08/14/2020 Abstract [facility] CONVERSIONS Dental, Provider, DDS Social History Tobacco Use Types Packs/Day Years Used Date Smoking Tobacco: Never Assessed Sex and Gender Information Value Date Recorded [...] Description 07/26/2024 9:30 AM EDT Office Visit [facility] CHC MED & PEDS [address] [place] [address] Bea Lacey MD [address] [place] [address] documented as of this encounter Visit Diagnoses Not on filedocumented in this encounter Care Teams Deputy Sheriff Generalist Relationship Specialty Start Date End Date Gordon Mills MD [address] [place] [address] PCP - General Internal Medicine 07/12/19 09/21/22 Bea Lacey MD [address] [place] [address] PCP - General Family Medicine 09/22/22 documented as of this encounter
--- OUTSIDE RECORDS SUMMARY | 2024-05-28 16:47 | XMS_ITS | Encounter Summary ---
Author Organization [employer] Address [address] [facility] [address] [place] [address] Care Team Providers Care Specialist Managers Name Role Phone Bea Lacey MD Primary Care Provider [phone] Reason for Visit * Reason Onset Date Comments Results 11/16/2023 Encounter Details Date Type Department Care Team ([facility] Contact Info) Description 11/16/2023 Telephone [facility] [address], [place] [id number] Bea Lacey MD [address] [place], [place] [phone] Results Social History Tobacco Use Types Packs/Day Years [...] encounter Miscellaneous Notes * Telephone Encounter - Garrison Palacios - 11/16/2023 4:13 PM EDT Tc from pt returning call. Senior Patient Account Representative advise previous message. Pt verbalizes understanding. * Telephone Encounter - Bea Lacey MD - 11/16/2023 2:42 PM EDT Labs are much improved from before Especially Liver functions * Telephone Encounter - Jf Gonzalez RN - 11/16/2023 12:16 PM EDT Pt requesting lab results from 11/09. Please review and advise nurse's of results/plan. Thanks. * Telephone Encounter - Graham Hall - 11/16/2023 11:24 AM EDT TC from pt requesting call back regarding Results. Type of results: Labs Date when done: 11/10/23 Facility: [facility] Labs documented in this encounter Plan of Treatment Upcoming Encounters Date Type Department Care Team (Late st Contact Info) Description 07/26/2024 9:30 AM EDT Office Visit [facility] [address] [place] [address] Bea Lacey MD [address] [place] [phone] documented as of this encounter Visit Diagnoses Not on filedocumented in this encounter Additional Health Concerns Assessment Noted Time PHQ-9 Depression Total Score: 20 024 10:22 AM EDT documented as of this encounter Care Teams Specialist Managers Relationship Specialty Start Date End Date Bea Lacey MD [address] [place] [id number] PCP - General Family Medicine 09/22/22 documented as of this encounter
--- OUTSIDE RECORDS SUMMARY | 2024-05-28 16:47 | XMS_ITS | Clinical Summary ---
Author Organization [employer] Address [address] [place] [address] Care Team Providers Care Transport Coordinator Name Role Phone Bea Lacey MD Primary Care Provider Allergies Active Allergy Reactions Criticality Noted Date Comments Grass Pollen(K-O-R-T-Swt [place]) 07/09/2020 Other 01/28/2022 Grass pollen, Tree and shrub pollen per previous EHR (07/09/20) Semaglutide(0.25 Or 0.5mg-Dos) Abdominal Pain High 02/10/2024 Had Pancreatitis Pollen Extract Low 07/09/2020 Other reaction(s): itchy eyes, sneeze, runny nose Medications Eye Itch Relief 0.025 % ophthalmic solutionIndicatio ns:Seasonal allergies PLACE ONE DROP IN THE AFFECTED EYE TWICE DAILY FOR ALLERGY 5 mL 11 Active zaleplon (Sonata) 5 MG capsule Take 1 capsule by mouth at bed time. Active metoprolol succinate XL (Toprol-XL) 25 MG 24 hr tablet Take 0.5 tablets by mouth 1 (one) time each day. Active glucose-vitamin C 4-6 GM-MG oral gel chew 4 tablets by mouth if BG <70mg/dL, repeat in 15 minutes if still low Active buPROPion XL (Wellbutrin XL) 300 MG 24 hr tablet Take 1 tablet by mouth 1 (one) time each day. Active melatonin 5 MG tablet Take 2 tablets by mouth at bedtime. Active ketotifen (Alaway) 0.025 % ophthalmic solution Administer 1 drop into affected eye(s) if needed in the morning and at bedtime for allergies. Active nitroglycerin (Nitrostat) 0.[address] 1 tablet by sublingual route at the 1st sign of attack; may repeat every 5 min x 3 doses, call 911 if sx persist Active sertraline (Zoloft) 50 MG tablet Take 1 tablet by mouth 1 (one) time each day. Active mirtazapine (Remeron) 7.5 MG tablet Take 1 tablet by mouth at bed time. Active zinc gluconate 50 MG tablet Active rivaroxaban (Xarelto) 20 MG tablet Take 1 tablet by mouth with evening meal. Active torsemide (Demadex) 20 MG tablet take 2 tablets AM AND PM Active spironolactone (Aldactone) 25 MG tablet Take 1 tablet by mouth 1 (one) time each day. Active prazosin (Minipress) 5 MG capsule Take 1 capsule by mouth every 12 (twelve) hours. Active lisinopril 5 MG tablet Take 1 tablet by mouth 1 (one) time each day. Active isosorbide mononitrate ER (Imdur) 60 MG 24 hr tablet Take 2 tablets by mouth in the morning. Active ipratropium (Atrovent) 0.06 % nasal spray Administer 2 sprays into affected nostril(s) in the morning and 2 sprays at noon and 2 sprays in the evening. Active gabapentin (Neurontin) 100 MG capsule Take 1 capsule by mouth every 12 (twelve) hours. Active tamsulosin (Flomax) 0.4 MG 24 hr capsule Take 1 capsule by mouth at bedtime. Active finasteride (Proscar) 5 MG tablet Take 1 tablet by mouth at bedtime. Active docusate sodium (Colace) 100 MG capsuleIndication s:Chronic idiopathic constipation TAKE TWO CAPSULES TWICE DAILY IN THE MORNING AND AT BEDTIME 120 capsule 11 023 Active chlorhexidine (Peridex) 0.12 % solution RINSE FOR 30 SECONDS WITH A HALF OUNCE (15ML) TWICE DAILY AFTER MEALS. SPIT OUT--DO NOT SWALLOW. 473 mL 023 Active Blood Pressure Monitor kit Check BP daily 1 kit 023 Active Alcohol Swabs (Alcohol Pads) 70 % pads 1 Units 3 times daily. 100 each 11 Active fluticasone (Flonase) 50 MCG/ACT nasal spray INHALE ONE SPRAY IN EACH NOSTRIL TWICE DAILY NEEDED FOR ALLERGIES 48 g 4 Active insulin pen needle (BD Pen Needle Flores U/F) 32G x 4 mm misc USE ONCE DAILY 100 each 11 Active esomeprazole (NexIUM) [address] capsule TAKE ONE CAPSULE TWICE DAILY IN THE MORNING AND AT BEDTIME Active HYDROcodone-aceta minophen ([place]) 5-325 MG tablet Take 1 tablet by mouth every 6 (six) hours if needed. Active Methylnaltrexone [place] (Relistor) 150 MG tablet Active methylPREDNISolon e (Medrol Dospak) 4 MG tablets TAKE DIRECTED ON PACKAGE with food Active metoclopramide (Reglan) 10 MG tablet TAKE ONE TABLET EVERY 6 HOURS NEEDED FOR NAUSEA AND VOMITING Active Narcan 4 MG/0.1ML nasal spray FOR SUSPECTED OPIOID OVERDOSE. SPRAY 0.1mL IN ONE NOSTRIL. REPEAT IN ALTERNATE NOSTRIL EVERY 2-3 MINUTES IF NEEDED. SEEK MEDICAL ATTENTION IMMEDIATELY EVEN IF PT RESPONDS. Active oxyCODONE (Roxicodone) 5 MG immediate release tablet TAKE ONE TABLET EVERY 8 HOURS NEEDED FOR post-op PAIN FOR THE NEXT 14 DAYS Active terbinafine (LamISIL) 250 MG tablet Take 250 mg by mouth Once per day. Active glucose 4 g chewable tablet Chew 16 g if needed for low blood sugar. Active famotidine (Pepcid) 40 MG tablet TAKE ONE TABLET EVERY NIGHT AT BEDTIME 90 tablet 1 Active TRUEplus Glucose 4 g chewable tablet Chew 4 tablets (16 g) if needed for low blood sugar 40 tablet 1 Active Calcium Carb-Cholecalcife rol (Calcium + Vitamin D3) 600-10 MG-MCG tabletIndications :Vitamin D deficiency Take 600 mg by mouth 2 times daily. TAKE ONE TABLET IN THE MORNING AND EVENING 60 tablet 11 Active baclofen (Lioresal) 20 MG tabletIndications :Muscle spasm TAKE ONE TABLET AT NOON, EVENING, AND BEDTIME NEEDED FOR MUSCLE SPASMS 90 tablet 5 Active amoxicillin (Amoxil) 500 MG capsule Take 4 tabs an hour before dental appointment 20 capsule Active dapagliflozin (Farxiga) 5 MG Take 1 tablet (5 mg) by mouth before lunch. 30 tablet 025 2025 Active glipiZIDE (Glucotrol) 5 MG tablet Take 1 tablet (5 mg) by mouth Once per day. 30 tablet 025 2025 Active Blood Glucose Monitoring Suppl (FreeStyle [place] Lite) w/Device kit TEST BLOOD SUGAR DAILY 1 kit Active glucose blood (FREESTYLE LITE) test stripIndications: Type 2 diabetes mellitus with hyperglycemia (CMS/HCC) Test sugars daily 100 strip Active FreeStyle lancets 1 each by Other route Once per day. 100 each 025 2025 Active Continuous Glucose Sensor (FreeStyle Verito 2 Sensor) miscIndications:T ype 2 diabetes mellitus with hyperglycemia (CMS/HCC) USE DIRECTED AND CHANGE EVERY 14 DAYS 2 each 3 Active polyethylene glycol, PEG, 3350 (MiraLax) 17 GM/SCOOP powder STIR 17GM INTO 8 OUNCES OF WATER OR JUICE AND DRINK DAILY NEEDED/ DIRECTED. 510 g 2 Active sucralfate (Carafate) 1 g tabletIndications :Gastroesophageal reflux disease without esophagitis Take 1 tablet (1 g) by mouth before breakfast and before evening meal. 60 tablet 1 025 Active amoxicillin (Amoxil) 500 MG capsule Take 4 tabs (2 grams) 1 hour prior to dental procedure 16 capsule 3 025 Active clonazePAM (KlonoPIN) 0.5 MG tabletIndications :Essential tremor TAKE ONE TABLET THREE TIME DAILY IN THE MORNING, AT NOON, AND IN THE EVENING 90 tablet 1 025 Active rosuvastatin (Crestor) 40 MG tabletIndications :Mixed hyperlipidemia TAKE ONE TABLET EVERY NIGHT AT BEDTIME 30 tablet 5 025 Active cholecalciferol (Vitamin D-3) 25 MCG tabletIndications :Vitamin D deficiency TAKE ONE TABLET EVERY MORNING 90 tablet 3 025 Active pseudoephedrine ER (Sudafed-12 Hour) 120 MG 12 hr tablet Take 1 tablet (120 mg) by mouth every 12 (twelve) hours if needed for congestion. 60 tablet 025 Active primidone (Mysoline) 250 MG tabletIndications :Essential tremor TAKE TWO TABLETS TWICE DAILY IN THE MORNING AND AT BEDTIME 360 tablet 4 025 Active pilocarpine (Salagen) 5 MG tabletIndications :Gastroesophageal reflux disease without esophagitis TAKE ONE TABLET IN THE MORNING AND EVENING 60 tablet 3 025 Active hydrOXYzine pamoate (Vistaril) 25 MG capsuleIndication s:Anxiety TAKE ONE CAPSULE IN THE MORNING AND EVENING NEEDED FOR ANXIETY 60 capsule 1 025 Active Aspirin Adult Low Strength 81 MG EC tablet TAKE ONE TABLET EVERY MORNING 90 tablet 4 025 Active cetirizine (ZyrTEC) 10 MG tabletIndications :Chronic allergic rhinitis TAKE ONE TABLET DAILY AT NOON 30 tablet 11 025 Active Aspirin Adult Low Strength 81 MG EC tablet TAKE ONE TABLET BY MOUTH EVERY MORNING 90 tablet 4 023 2024 Discontinued cetirizine (ZyrTEC) 10 MG tabletIndications :Chronic allergic rhinitis TAKE ONE TABLET DAILY AT NOON 30 tablet 11 024 2024 Discontinued Active Problems Problem Noted Date Diagnosed Date Acute right flank pain 05/03/2023 Assessment & Plan (05/03/2023 9:46 PM EDT): -apply heat to the area -diclofenac gel and emla cream ordered for topical application -may take tylenol as needed. Max daily dose 4000mg advised -advised to seek immediate medical attention with increase in pain intensity, migration of pain, increased are of bruising -X-ray of ribs ordered to eval for structural changes -follow-up with PCP if no improvement in 7 days Tinea pedis of both feet 11/09/2022 Chronic cholecystitis 08/06/2022 Assessment & Plan (08/06/2022 3:19 PM EDT): Patient persist with ruq pain, no fever/chills, nausea/vomiting, referred to surgery has appointment next week at [place]. On examination no warning signs Chronic abdominal pain 07/22/2022 Assessment & Plan (07/22/2022 4:14 PM EDT): Patient with persistant abdominal pain on both right/left upper quadrant he feels like a burning sensation bebeath his rib cage, no rahs, fever/chills, nasuea/vomiting, diarrhea. Will order new blood work, place ultrasound order and will refer to surgery for symptomatic gallblader evaluation. Transaminitis 07/22/2022 Chronic idiopathic constipation 06/28/2022 Assessment & Plan (06/28/2022 5:31 PM EDT): Will start on linzess, told to stop docusate after starting new medication, also refers that he has been 1 week without bowel movement will send a rectal enema Preop examination 02/03/2022 Assessment & Plan (02/03/2022 6:08 PM EST): Patient will undergo a left shoulder arthrocentesis on 02/11/22 Denies chest pain or shortness of breath, he is physically active, Mets>4. Ekg reviewed found with known a-fib. Labs reviewed were unremarkable He is cleared for surgery. Hold aspirin 5 days prior procedure, Hold apixaban 2 days prior procedure and restart as soon as possible depending on post op recommendation and risk of bleeding, Hold farxiga the morning of the procedure. Benign hypertension 01/28/2022 Benign prostatic hyperplasia 01/28/2022 Bilateral cataracts 01/28/2022 Bilateral tinnitus 01/28/2022 Cerebrovascular accident 01/28/2022 Chronic atrial fibrillation 01/28/2022 CKD stage 3 secondary to diabetes 01/28/2022 CAD in [place] artery 01/28/2022 Type 2 diabetes mellitus wit h hyperglycemia, without long-term current use of insulin 01/28/2022 Assessment & Plan (02/09/2024 3:24 PM EST): Continue to monitor glucose and begin Trulicity. Advised to not restart insulin. Follow up with PCP. Assessment & Plan (08/19/2022 3:19 PM EDT): Will discontinue ozempic due to recent cholecystitis/pancreatitis event, will switch to lantus, will start on 10 units daily, will follow up for medication adjustment. Assessment & Plan (05/28/2022 4:31 PM EDT): Worsened lately, patient has not been able to exercise daily as he used to due to msk problems, also not following diet reccomendations, current A1c id 7.0%, reinforced lifestyle changes, will follow up in 2 months. Assessment & Plan (02/03/2022 6:07 PM EST): Improved, on farxiga and trulicity, no episode of hypoglycemia a1c today was 6.5% Diverticulitis 01/28/2022 Essential tremor 01/28/2022 Excessive sweating 01/28/2022 History of left shoulder replacement 01/28/2022 Erectile dysfunction due to diseases classified elsewhere 01/28/2022 History of parathyroidectomy 01/28/2022 Hiatal hernia 01/28/2022 Heart failure with normal ejection fraction 09/2021 Hyperlipidemia 01/28/2022 Kidney stone 01/28/2022 Peripheral vascular disease 01/28/2022 Osteoporosis 01/28/2022 Obstructive sleep apnea syndrome 01/28/2022 S/P CABG x 4 01/28/2022 Lumbar compression fracture 01/28/2022 History of fracture of hand 01/28/2022 Overview (01/28/2022): Per previous EHR History of surgery 01/28/2022 Overview (01/28/2022): History of gastri restrictive surgery and s/p laparoscopic sleeve gastrectomy per previous EHR Abdominal aortic aneurysm 11/02/2018 Mood disorder 11/25/2014 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 Resolved Problems Problem Noted Date Diagnosed Date Resolved Date Benzodiazepine dependence 01/28/2022 Continuous opioid dependence 01/28/2022 08/05/2022 Encounters Date Type Department Care Team Description 05/28/2024 Telephone [facility] [address] [place] [address] Bea Lacey MD Referral 05/26/2024 Refill [facility] [address] [place] [address] Bea Lacey MD Chronic idiopathic constipation 05/21/2024 Telephone [facility] [address] [place] [address] Bea Lacey MD Referral 05/21/2024 Telephone [facility] [address] [place] [address] Bea Lacey MD 05/01/2024 Refill [facility] [address] [place] [address] Bea Lacey MD Chronic allergic rhinitis 04/25/2024 11:30 AM EST Telemedicine [facility] [address] [place] [address] Bea Lacey MD Rib pain on right side (Primary Dx) 04/25/2024 Travel 04/23/2024 Refill [facility] [address] [place] [address] Bea Laecy MD Gastroesophageal reflux disease without esophagitis; Anxiety 04/19/2024 1:00 PM EST Office Visit [facility] [address] [place] [address] Paula Nichols, DMD 04/04/2024 Refill [facility] [address] [place] [address] Bea aLcey MD Essential tremor 04/03/2024 Telephone [facility] [address] [place] [address] Bea Lacey MD Nurse Triage 03/30/2024 Refill [facility] [address] [place] [address] Bea Lacey MD Essential tremor 03/30/2024 Refill [facility] [address] [place] [address] Bea Lacey MD 03/28/2024 Refill [facility] [address] [place], [place] [phone] Bea Lacey MD Vitamin D deficiency 03/27/2024 Refill [facility] [address] [place], [place] [phone] Bea Lacey MD Essential tremor; Mixed hyperlipidemia 03/26/2024 10:00 AM EST Office Visit [facility] [address] [place], [place] [phone] Paula Nichols, CHRISTINA 03/23/2024 Telephone [facility] [address] [place], [place] [phone] Bea Lacey MD Med Refill 03/22/2024 Refill [facility] [address] [place], [place] [phone] Bea Lacey MD Type 2 diabetes mellitus with hyperglycemia ([facility]/HCC); Gastroesophageal reflux disease without esophagitis 03/16/2024 Refill [facility] [address] [place], [place] [phone] Bea Lacey MD 03/05/2024 Telephone [facility] [address] [place] [address] Bea Lacey MD Nurse Triage 03/05/2024 Telephone [facility] [address] [place] [address] Kelly Roy, RN Results 03/02/2024 Refill [facility] [address] [place], [place] [phone] Bea Lacey MD Anxiety 02/29/2024 Orders Only [facility] [address] [place] [address] Bea Lacey MD Type 2 diabetes mellitus with hyperglycemia (CMS/HCC) 02/28/2024 Refill [facility] [address] [place], [place] [phone] Bea Lacey MD Type 2 diabetes mellitus with hyperglycemia (CMS/HCC) 02/28/2024 Refill [facility] [address] [place], [place] [phone] Gordon Mills MD from Last 3 Months Immunizations Name Administration Dates Next Due Hep B, adult 10/08/2016,06/15/2016,02/12/2016 Influenza High-dose Quadriva lent Preservative Free 11/09/2022,12/03/2021,12/11/2019 Influenza Injectable Quadriv alant Preservative Free IIV4 MDCK 12/15/2020 Influenza injectable quadriv alent IIV4 with preservative 11/02/2018,02/12/2016 Influenza injectable quadriv alent preservative free 12/28/2016,11/25/2014 Influenza, High Dose Seasona l, Preservative Free 10/31/2023,12/05/2017 Influenza, IIV3, injectable 11/29/2013,0 04/26/2012,11/13/2010,10/25,03/01/2008,01/07/2006 Influenza, Split (incl. elis fied surface antigen) 11/27/2012 Influenza, Unspecified 12/03/2021,2019,11/29/2013,11/13,10/25/2008,03/01/2008,01/07/2006 Moderna Covid-19 Vaccine 12+ 05/27/2020,04/30/19 21 Pfizer Covid-19 Vaccine 12+ 11/18/2022,,12/24/2020 Pfizer Covid-19 Vaccine 12+ Bivalent 12/08/2021, 12/08/2021 Pneumococcal Conjugate PCV 13 10/26/2018 Pneumococcal Polysaccharide PPSV23 09/15,04/26/2012,01/01/2006,09/29 TD (adult), 2 Lf tetanus tox oid, preservative free, adsorbed 09/15/2020,09/29/2005 Tdap 08/08/2009 Zoster, Recombinant 01/31/2019,11/30/2018 Zoster, live 01/31/2019,11/30/2018,06/17/2014 Social History Tobacco Use Types Packs/Day Years Used Date Smoking Tobacco: Former Cigarettes Passive Smoke Exposure: Never Smokeless Tobacco: Never Tobacco Cessation:Counseling Given: Not Answered Alcohol Use Standard Drinks/Week Comments Never 0 [...] not to disclose 2021 10:17 AM EDT Last Filed Vital Signs Vital Sign Reading Time Taken Comments Blood Pressure 110/72 04/19/2024 1:11 PM EST Pulse 88 02/27/2024 10:53 AM EST Temperature 36.6 ??C (97.8 ??F) 02/27/2024 10:[address] Respiratory Rate 20 02/27/2024 10:53 AM EST Oxygen Saturation 94% 02/27/2024 10:53 AM EST Inhaled Oxygen Concentration - - Weight 87.5 kg (193 lb) 02/27/2024 10:53 AM EST Height 172.7 cm (5' 8 ) 02/27/2024 10:53 AM EST Body Mass Index 29.35 02/27/2024 10:53 AM EST Plan of Treatment Upcoming Encounters Date Type Department Care Team (Late st Contact Info) Description 07/26/2024 9:30 AM EDT Office Visit [facility] [address] [place] [address] Bea Lacey MD [address] [facility] [place] [address] Health Maintenance Due Date Last Done Comments CT Colonography 1950 FIT DNA/Cologuard 1950 FIT 1950 FOBT 1950 Sigmoidoscopy 1950 Eye Exam 1962 Alcohol/Substance Use Screening 1964 Hepatitis A Vaccines (1 of 2 - Risk 2-dose series) 05/01/1971 RSV Patients and Patients Aged 60 years or older (1 - Risk 60-74 years 1-dose series) 2012 Diabetes: Foot Exam 11/10/2023 11/09/2022, 11/09/2022, 11/09/2022, Additional history exists SDOH Screening 11/19/2023 11/18/2022 Depression Monitoring (PHQ-9) 12/03/2023 06/03/2023, 06/03/2023 Colonoscopy 03/14/2024 03/14/2014 Colorectal Cancer Screening 03/14/2024 Dental Oral Exam 05/09/2024 11/09/2023, , 09/30/2022 Dental Prophylaxis 05/09/2024 11/09/2023, 0 05/05/2023, 09/30/2022, Additional history exists Diabetes: Hemoglobin A1C 05/09/2024 024, 03/30/2023, 11/09/2022, Additional history exists Depression Screening 06/02/2024 06/03/2023, 06/03/19 Dental X-Ray: Bitewings 11/09/2024 11/09/19 24, 12/22/2022, 09/30/2022 Lipid Panel 11/09/2024 11/10/2023, 03/25, 11/09/2022, Additional history exists Tobacco Screening 04/19/2025 04/19/2024 Dental X-Ray: Full Mouth 11/09/2026 11/09/2023 DTaP/Tdap/Td Vaccines (3 - Td or Tdap) 09/15/2030 09/15/2020, 08/08/2009, 09/29/2005 Hepatitis B Vaccines Completed 10/08/2016, 06/15/2016, 02/12/2016 Zoster Vaccines Completed 01/31/2019, 01/21, 11/30/2018, Additional history exists Hepatitis C Screening Completed 10/15/2019 Pneumococcal Vaccine: 50+ Years Completed 09/15/2020, 10/26/2018, 04/26/2012, Additional history exists Influenza Vaccine Completed 10/31/2023, , 12/03/2021, Additional history exists COVID-19 Vaccine Completed 11/01/2023, , 12/08/2021, Additional history exists HIB Vaccines Aged Out No longer eligi ble based on patient's age to complete this topic HPV Vaccines Aged Out No longer eligi ble based on patient's age to complete this topic IPV Vaccines Aged Out No longer eligi ble based on patient's age to complete this topic Meningococcal Vaccine Aged Out No lolita ricky eligible based on patient's age to complete this topic RSV under 20 months Aged Out No longe r eligible based on patient's age to complete this topic Rotavirus Vaccines Aged Out No longer eligible based on patient's age to complete this topic Procedures Procedure Name Priority Date/Time Associated Diagnosis Comments CASE PRESENTATION, DETAILED AND EXTENSIVE TREATMENT PLANNING Routine 04/19/2024 1:00 PM EST 3 MO RESIN-BASED COMPOSITE - 2 SURF, POSTERIOR Routine 04/19/2024 1:00 PM EST 5 MOD RESIN-BASED COMPOSITE - 3 SURF, POSTERIOR Routine 04/19/2024 1:00 PM EST 4 MOD RESIN-BASED COMPOSITE - 3 SURF, POSTERIOR Routine 04/19/2024 1:00 PM EST 12 INTRAORAL - PERIAPICAL EACH ADDITIONAL RADIOGRAPHIC IMAGE Routine 03/26/2024 10:00 AM EST 5 INTRAORAL - PERIAPICAL FIRST RADIOGRAPHIC IMAGE Routine 03/26/2024 10:00 AM EST CASE PRESENTATION, DETAILED AND EXTENSIVE TREATMENT PLANNING Routine 03/26/2024 10:00 AM EST LIMITED ORAL EVALUATION - PROBLEM FOCUSED Routine 03/26/2024 10:00 AM EST XR CHEST 2 VIEWS Routine 02/28/2024 10:0 4 AM EST Lung nodule, multiple LIPID PANEL, STANDARD Routine 11/10/2023 11:22 AM EDT Type 2 diabetes mellitus without complication, without long-term current use of insulin (CMS/HCC) POCT GLYCATED HEMOGLOBIN, TOTAL Routine 11/10/2023 10:45 AM EDT Type 2 diabetes mellitus without complication, without long-term current use of insulin (CMS/HCC) PROPHYLAXIS - ADULT Routine 11/09/2023 1 1:00 AM EDT INTRAORAL - COMPLETE SERIES OF RADIOGRAPHIC IMAGES Routine 11/09/2023 11:00 AM EDT PERIODIC ORAL EVALUATION - ESTABLISHED PATIENT Routine 11/09/2023 11:00 AM EDT ZZZ HISTORICAL HEPATITIS C AB W/REFL TO HCV RNA, QN, PCR Routine 10/15/2019 1:23 PM EDT HM COLONOSCOPY Routine 03/14/2014 12:17 PM EST from Last 3 Months or Most Recently Relevant to Health Maintenance Results * XR Chest 2 Views (02/28/2024 10:04 AM EST) Anatomical Region Laterality Modality Chest Radiographic Maritza ging 02/28/2024 10:0 4 AM EST Narrative 03/01/2024 2:08 PM EST ? [facility] ?[address] ? [place] [address] ?XRay Report ? Signed ? Patient: Malik Maki ?MR#: [id number] ?? 2 ? : 1950 ?Acct:[id number] ? Age/Sex: 73 / M ?ADM Date: /07/25 ? Loc: HO.HMGCX ? Attending Dr: Bea Lacey MD ? Ordering Physician: Bea Lacey MD ?? Date of Service: 02/28/24 ?? Procedure(s): XR chest 2V ?? Accession Number(s): [id number] ? cc: Bea Lacey MD ? EXAMINATION: ??XR CHEST 2 VIEWS ? HISTORY: Lung Nodule ? COMPARISON: Comparison is made with the prior examination dated ?? 05/02/2023. ? FINDINGS: ??PA and lateral views of the chest are submitted. A battery ?? pack is noted in the left anterior chest wall. The lead extends into ?? the left neck. The lungs are expanded and clear. ??There is no pleural ?? effusion, pneumothorax, or pulmonary vascular congestion. ??The heart is ?? normal in size. The patient is status post median sternotomy. ??A spinal ?? stimulator is again seen in place. ? XR/XR chest 2V ?? IMPRESSION: ?? No acute cardiopulmonary abnormality. ? Electronically signed by: ??Markus Nicholson MD ??03/01/2024 02:04 PM EST ? Dictated By: ?Markus Nicholson MD ? Signed By: ?<Electronically signed by Markus Nicholson MD in OV> ?03/01/24 1404 ? DD/ 1004 ? TD/TT: 02/28/24 1010 ? Loop Tender: ? Procedure Note Donarielmargauxfitoter, Image - 03/01/2024 [facility] [address] [place] [address] [place] [address] XRay Report Signed Patient: Malik Maki R#: [id number] 2 : 1950cct:[id number] Age/Sex: 73 / MADM Date: 02/28/24 Loc: .HMGCX Attending Dr: Bea Lacey MD Ordering Physician: Bea Lacey MD Date of Service: 02/28/24 Procedure(s): XR chest 2V Accession Number(s): [id number] cc: Bea Lacey MD EXAMINATION: XR CHEST 2 VIEWS HISTORY: Lung Nodule COMPARISON: Comparison is made with the prior examination dated 05/02/2023. FINDINGS: PA and lateral views of the chest are submitted. A battery pack is noted in the left anterior chest wall. The lead extends into the left neck. The lungs are expanded and clear. There is no pleural effusion, pneumothorax, or pulmonary vascular congestion. The heart is normal in size. The patient is status post median sternotomy. A spinal stimulator is again seen in place. XR/XR chest 2V IMPRESSION: No acute cardiopulmonary abnormality. Electronically signed by: Markus Nicholson MD 03/01/2024 02:04 PM EST RP Dictated By: Markus Nicholson MD Signed By: <Electronically signed by Markus Nicholson MD in OV> 03/01/24 1404 DD/ 1004 TD/TT: 02/28/24 1010 Loop Tender: Bea Lacey MD IMG XR PROCEDURES Final Result * Lipid Panel, Standard (11/10/2023 11:22 AM EDT) Triglycerides 76 <150 mg/dL [facility] Comment:Desirable Triglyceri de: less than 150 mg/dLBorderline High Triglyceride 150-199 mg/dLHigh Triglyceride: 200-499 mg/dLVery High Triglyceride: greater than or equal to 5OO mg/dL Cholesterol 110 <200 mg/dL [facility] Comment:Desirable Cholestero l: less than 200 mg/dLBorderline High Cholesterol: 200-239 mg/dLHigh Cholesterol: greater than 239 mg/dL LDL Cholesterol Calculated 50 <100 mg/dL [facility] Comment:Desirable LDL: less than 100 mg/dLNear Optimal/Above Optimal LDL: 110- 129 mg/dLBorderline High LDL: 130-159 mg/dLHigh LDL: 160-189 mg/dLVery High LDL: greater than or equal to 190 mg/dL HDL Cholesterol 45 >40 mg/dL [facility] Comment:Desirable HDL: great er than 40 mg/dL Note: This HDL assay may give artificially low results in patients with liver disease. Blood Venous blood specimen / Unknown 11/10/2023 11:22 AM EDT 11/10/2023 2:56 PM EDT Bea Lacey MD LAB BLOOD ORDERABLES Final Resul t [facility] [address] [place] [phone] * (ABNORMAL) POCT A1C (11/10/2023 10:45 AM EDT) Hemoglobin A1C 6.2(A) 4.0 - 6.0 % QC Media Lot # Comment:[id number] Lot# Expiration Date Comment:06/16/2025 Blood 11/10/2023 10:4 5 AM EDT Bea Lacey MD POINT OF CARE TEST ENTER/EDIT OR DERABLES Final Result * HEPATITIS C AB W/REFL TO HCV RNA, QN, PCR (10/15/2019 1:23 PM EDT) HEPATITIS C ANTIBODY NON-REACT ELLE NON-REACT ELLE [facility] INDEX 0.01 <1.00 [facility] Comment: ?? HCV antibody was non-reactive. There is no laboratory ?? evidence of HCV infection. ?? In most cases, no further action is required. However, if recent HCV exposure is suspected, a test for HCV RNA (test code 17675) is suggested. ?? For additional information please refer to http://education.[employer]/faq/YRZ98t6 (This link is being provided for informational/ educational purposes only.) ?? 10/15/2019 1:23 PM EDT Gordon Rocha MD HISTORICAL/NON ORD ERABLE LABS Final Result [facility] [address] * Hm Colonoscopy (03/14/2014 12:17 PM EST) Tia Provider HEALTH MAINTENANCE Final Result from Last 3 Months or Most Recently Relevant to Health Maintenance Insurance [facility] STAND ADULT Care Teams Transport Coordinator Relationship Specialty Start Date End Date Bea Lacey MD [address] [place] [phone] PCP - General Family Medicine 09/22/22
--- OUTSIDE RECORDS SUMMARY | 2024-05-28 16:47 | XMS_ITS | Encounter Summary ---
Author Organization [employer] Address [address] [facility] 7t [place] [address] Care Team Providers Care Construction Carpenters Helper Name Role Phone Bea Lacey MD Primary Care Provider [phone] Reason for Visit * Reason Onset Date Comments Results 03/30/2023 Encounter Details Date Type Department Care Team ([facility] st Contact Info) Description 03/30/2023 Telephone [facility] MEDICINE [address] [place], [place] [phone] Bea Lacey MD [address] [place], [place] [phone] Results Social History Tobacco Use Types Packs/Day Years Used Date Smoking Tobacco: Former Cigarettes Passive Smoke Exposure: Never Smokeless Tobacco: Never Alcohol Use Standard Drinks/Week Comments Never 0 (1 standard drink = 0.6 oz pur e alcohol) Depression Answer Date Recorded Patient Health Questionnaire-9 Score 7 05/28/2022 Housing Stability Answer Date Recorded What is [...] Answer Date Recorded Patient Health Questionnaire-2 Score 4 05/28/2022 Sex and Gender Information Value Date Recorded Sex Assigned at Male 12/21/2021 10:17 AM EDT Legal Sex Male 10:17 AM EDT Gender Identity Choose not to disclose 10:17 AM EDT Sexual Orientation Choose not to disclose 2021 10:17 AM EDT documented as of this encounter Miscellaneous Notes * Telephone Encounter - Kaykay Orozco RN - 04/01/2023 3:25 PM EST TC returned to patient regarding message below. Recent A1C result of 6.1 shared with him and celebrated the improvement. Patient wants to repeat bloodwork done in October,. States that he discussed it with PCP. Patient would like to repeat: -lipid panel, hepatic panel, BMP Patient would like to do any bloodwork PCP would recommend at this time. Advised that Dr. Lacey will be back in office mid-week next week and will probably see this message then and we will be back in touch. Advised that if lipid panel is ordered, will need to be fasting. Patient expressed understanding. Routing message to Dr. Lacey for review of request for labwork. Tc from pt requesting a call back in regards A1C results. Pt is also requesting orders for blood work. * Telephone Encounter - Sheri Villagran - 03/30/2023 11:43 AM EST Tc from pt requesting a call back in regards A1C results. Pt is also requesting orders for blood work. documented in this encounter Plan of Treatment Upcoming Encounters Date Type Department Care Team (Late st Contact Info) Description 07/26/2024 9:30 AM EDT Office Visit [facility] MED & PEDS [address] [place] [address] Bea Lacey MD [address] [place] [address] documented as of this encounter Visit Diagnoses Not on filedocumented in this encounter Additional Health Concerns Assessment Noted Time PHQ-9 Depression Total Score: 7 05/29/19 10:45 AM EDT documented as of this encounter Care Teams Construction Carpenters Helper Relationship Specialty Start Date End Date Bea Lacey MD [address] [place] [address] PCP - General Family Medicine 09/22/22 documented as of this encounter
--- OUTSIDE RECORDS SUMMARY | 2024-05-28 16:47 | XMS_ITS | Encounter Summary ---
Author Organization [email or web address] Address [address] [facility] 7t [place] [address] Care Team Providers Care Manager Division Name Role Phone Bea Lacey MD Primary Care Provider [phone] Reason for Visit * Reason Comments Med Refill Encounter Details Date Type Department Care Team ([facility] st Contact Info) Description 03/30/2024 Refill [facility] & PEDS [address] [place], [place] [phone] Bea Lacey MD 505 [place], [place] [phone] Essential tremor Social History Tobacco Use Types Packs/Day Years [...] Description 07/26/2024 9:30 AM EDT Office Visit [facility] MED & PEDS [address] [place] [address] Bea Lacey MD [address] [place] [address] documented as of this encounter Visit Diagnoses Diagnosis Essential tremor documented in this encounter Additional Health Concerns Assessment Noted Time PHQ-9 Depression Total Score: 20 024 10:22 AM EDT documented as of this encounter Care Teams Manager Division Relationship Specialty Start Date End Date Bea Lacey MD [address] [place] [address] PCP - General Family Medicine 09/22/22 documented as of this encounter
--- OUTSIDE RECORDS SUMMARY | 2024-05-28 16:47 | XMS_ITS | Encounter Summary ---
Author Organization [employer] Address [address] [facility] [address] 7[address] [place] [address] Care Team Providers Care Scale Agent Name Role Phone Bea Lacey MD Primary Care Provider [phone] Reason for Visit * Reason Onset Date Comments Nurse Triage 02/08/2024 Encounter Details Date Type Department Care Team ([facility] st Contact Info) Description 02/08/2024 Telephone [facility] MEDICINE [address] [place], [place] [phone] Bea Lacey MD [address] [place] [address] Nurse Triage Social History Tobacco Use Types [...] encounter Miscellaneous Notes * Telephone Encounter - Alisha Aguayo RN - 02/08/2024 12:39 PM EST Triage call Pt reports having prostate surgery this morning . Pt has a park cath bag for drainage and declines to come to facility to be seen by provider. Pt is requesting to speak with provider regarding BS. Pt blood sugar at time of call is 134. Pt reports last night blood sugar was 151 before bed, Pt didn't eat a bed time snack, Pt stops eating at 8pm. Pt is being followed by RD. Pt has a glucose sensor and was awaken last night for blood sugar of 67 then 54. Pt did take glucose tablets with good effect. Pt is concerned that blood sugar gets too high and then falls too quickly. Last OV with PCP was 11/10/23. Pt has many questions and requests to speak with provider. TSK call scheduled for 02/09/24 @ 315pm with Dr. Gillette. Pt agrees with disposition and home care reviewed. Protocol Used: Diabetes - High Blood Sugar (Adult) Protocol-Based Disposition: See in Office or Video Visit Today Override (Final) Disposition: See in Office or Video Visit Today or Tomorrow Override Reason: Other Video visit offered and caller accepted Positive Triage Question: * Patient wants to be seen * All higher-acuity triage questions were negative Care Advice Discussed: * High Blood Sugar (Hyperglycemia) * Treatment - Liquids * Measure and Record Your Blood Glucose * Reasons To Call Back - Blood glucose over 300 mg/dL (16.7 mmol/L), two or more times in a row. - Urine ketones become moderate or large (or more than 1+); if you check blood ketones, blood ketone test is over 1.4 mmol/L - Vomiting lasting over 4 hours or unable to drink any fluids - Rapid breathing occurs - You have more questions - You become worse * Telephone Encounter - Graham Hall - 02/08/2024 12:04 PM EST Symptoms: High Blood Sugar - Caller Reports, Nausea But No Vomiting Outcome: Schedule a same-day appointment or talk to a nurse or provider today Reason: Caller denied all higher acuity questions documented in this encounter Plan of Treatment Upcoming Encounters Date Type Department Care Team (Late st Contact Info) Description 07/26/2024 9:30 AM EDT Office Visit [facility] MED & PEDS [address] [place] [address] Bea Lacey MD [address] [place] [address] documented as of this encounter Visit Diagnoses Not on filedocumented in this encounter Additional Health Concerns Assessment Noted Time PHQ-9 Depression Total Score: 20 024 10:22 AM EDT documented as of this encounter Care Teams Scale Agent Relationship Specialty Start Date End Date Bea Lacey MD [address] [place] [address] PCP - General Family Medicine 09/22/22 documented as of this encounter
--- OUTSIDE RECORDS SUMMARY | 2024-05-28 16:47 | XMS_ITS | Encounter Summary ---
Author Organization [employer] Address [address] [facility] 7t [place] [address] Care Team Providers Care Derrick Boat Operator Name Role Phone Bea Lacey MD Primary Care Provider [phone] Encounter Details Date Type Department Care Team ([facility] st Contact Info) Description 02/29/2024 Orders Only [facility] MED & PEDS [address] [place], [place] [phone] Bea Lacey MD [address] [place], [place] [phone] Type 2 diabetes mellitus with hyperglycemia (CMS/HCC) Social History Tobacco Use Types Packs/Day Years [...] Description 07/26/2024 9:30 AM EDT Office Visit [facility] MED & PEDS [address] [place] [address] Bea Lacey MD [address] [place] [address] documented as of this encounter Visit Diagnoses Diagnosis Type 2 diabetes mellitus with hyperglycemia (CMS/HCC) documented in this encounter Additional Health Concerns Assessment Noted Time PHQ-9 Depression Total Score: 20 024 10:22 AM EDT documented as of this encounter Care Teams Derrick Boat Operator Relationship Specialty Start Date End Date Bea Lacey MD [address] [place] [address] PCP - General Family Medicine 09/22/22 documented as of this encounter
--- OUTSIDE RECORDS SUMMARY | 2024-05-28 16:47 | XMS_ITS | Encounter Summary ---
Author Organization [employer] Address [address] [facility] 7t [place] [address] Care Team Providers Care Research Chemical Engineer Name Role Phone Bea Lacey MD Primary Care Provider [phone] Reason for Visit * Reason Onset Date Comments Nurse Triage 04/03/2024 Encounter Details Date Type Department Care Team ([facility] st Contact Info) Description 04/03/2024 Telephone [facility] MEDICINE [address] [place], [place] [phone] Bea Lacey MD [address] [place] [address] Nurse Triage Social History Tobacco Use Types [...] encounter Miscellaneous Notes * Telephone Encounter - Nita Wilson LPN - 04/03/2024 1:21 PM EST Triage call returned to patient who reports concern for pain / burning under right rib cage where gallbladder used to be. Shirt and even sheets irritate area and cause pain. Patient had gallbladder removed some time ago laparoscopically. Patient reports there is no rash no redness no blisters. Patient with a Nerve Stimulator and is followed by Pain management at [facility]. Has not notified that Dept at this time but agrees to do so. Patient reports that he feels lumps under the skin and that when massaged makes them feel better. Patient previously advised by Pain Management to use topical Salon Pas patches to area. Patient wants to see PCP but is unable to book appt at time of call pen ding a new brain surgery on 04/05/24 at [facility]. Disposition reviewed and patient in agreement with plan. Will call to follow with appt. scheduling when recovered from procedure at [facility]. Patient requests that PCP be updated. Forwarded to PCP as patient requested. Protocol Used: Chest Pain (Adult) Protocol-Based Disposition: See in Office or Video Visit Today Override (Final) Disposition: Refer to Specialist Override Reason: Caller refused suggested disposition Override Notes: Patient followed by [facility] Pain Management but wants PCP updated Video visit not offered Positive Triage Question: * All other patients with chest pain (Exception: Fleeting chest pain lasting a few seconds.) * All higher-acuity triage questions were negative Care Advice Discussed: * Reasons To Call Back - You become worse * Telephone Encounter - Terri Johanseniago - 04/03/2024 12:08 PM EST Symptom: Pain - Severe (Right side under rib), Skin painful to touch. Outcome: Schedule an urgent appointment (within 1 hour) or talk to a nurse or provider soon Reason: Caller denied all higher acuity questions The caller accepted this outcome. [phone] documented in this encounter Plan of Treatment Upcoming Encounters Date Type Department Care Team (Late st Contact Info) Description 07/26/2024 9:30 AM EDT Office Visit [facility] MED & PEDS [address] [place] [address] Bea Lacey MD [address] [place] [address] documented as of this encounter Visit Diagnoses Not on filedocumented in this encounter Additional Health Concerns Assessment Noted Time PHQ-9 Depression Total Score: 20 024 10:22 AM EDT documented as of this encounter Care Teams Research Chemical Engineer Relationship Specialty Start Date End Date Bea Lacey MD [address] [place] [address] PCP - General Family Medicine 09/22/22 documented as of this encounter
--- OUTSIDE RECORDS SUMMARY | 2024-05-28 16:47 | XMS_ITS | Clinical Summary ---
Author Organization [facility] Address [address] [place] [address] Care Team Providers Care Chief Reservoir Engineering Name Role Phone Bea Lacey Primary Care Provider [phone] Allergies No known active allergies Medications buPROPion XL (WELLBUTRIN XL) 300 mg tablet Take 300 mg by mouth every morning. Active clonazePAM (KlonoPIN) 0.5 mg tablet Take 0.5 mg by mouth 3 times a day. 12/08/2023 Active famotidine (PEPCID) 40 mg tablet Take 40 mg by mouth. At night Active hydrOXYzine (VISTARIL) 25 mg capsule Take 25 mg by mouth. Active melatonin 5 mg tablet 5 mg. 12/15/2023 Active mirtazapine (REMERON) 7.5 mg tablet Take 7.5 mg by mouth nightly. 12/15/2023 Active prazosin (MINIPRESS) 5 mg capsule Take 5 mg by mouth nightly. Active sertraline (ZOLOFT) 100 mg tablet 100 mg. 12/15/2023 Active sucralfate (CARAFATE) 1 gram tablet Take 1 g by mouth 2 times a day. 12/08/2023 Active torsemide (DEMADEX) 20 mg tablet Take 20 mg by mouth in the morning. Active Xarelto 20 mg tablet 20 mg. In the evening Active Farxiga 10 mg 10 mg. 07/04/2023 Activ e aspirin 81 mg EC tablet Take 81 mg by mouth. Active baclofen (LIORESAL) 20 mg tablet Take 20 mg by mouth. Active calcium carbonate-vitami n D3 600 mg-10 mcg (400 unit) per tablet 1 tablet. Take 1 in the morning and evening. 10/10/2023 Active cetirizine (ZyrTEC) 10 mg tablet Take 1 tablet by mouth once a day. 05/09/2023 Active docusate sodium (COLACE) 100 mg capsule Take 100 mg by mouth 2 times a day. 12/08/2023 Active eplerenone (INSPRA) 25 mg tablet Take 1 tablet by mouth once a day. 08/03/2023 Active esomeprazole (NexIUM) 40 mg capsule Take 40 mg by mouth 2 (two) times a day. Active finasteride (PROSCAR) 5 mg tablet Take 5 mg by mouth. Take one tablet in the evening Active isosorbide mononitrate ER (IMDUR) 60 mg tablet Take 1 tablet by mouth once a day. 05/05/2023 Active lisinopriL (PRINIVIL,ZESTRI L) 10 mg tablet Take 10 mg by mouth. 12/12/2023 Active pilocarpine (SALAGEN) 5 mg tablet 5 mg. Active primidone (MYSOLINE) 250 mg tablet Take 0.5 tablets by mouth every 12 (twelve) hours. Active rosuvastatin (CRESTOR) 40 mg tablet Take 40 mg by mouth 2 (two) times a day. Active cholecalciferol (VITAMIN D3) 1,000 unit tablet Take 1 tablet by mouth once a day. 04/06/2023 Active Active Problems Problem Noted Date Diagnosed Date Back pain 12/30/2023 Cardiomyopathy 12/30/2023 S/P placement of hypoglossal nerve stimulator Essential tremor 12/30/2023 Assessment & Plan (01/01/2024 3:34 PM EST): The patient is a 73 y/o M - with medical history significant for type 2 diabetes, hypertension, hyperlipidemia, CAD (reportedly s/p 9 heart attacks, 2 open heart surgeries, and several angiograms and angioplasties), DELMY (s/p placement of hypoglossal nerve stimulator), prior CVA, depression, and anxiety - presenting with a chief complaint of tremors. A postural tremor is noted on examination and he has great difficulty writing his name. Head titubation is noted as well. He has been diagnosed with essential tremor and the clinical l picture certainly seems most compatible with this condition. I do not have records from his previous neurologist so I am not certain what medications he has tried though it appears he is currently taking 125 mg of primidone BID with no benefit. He is currently at the point where he is looking towards DBS for treatment of the tremor. I see no contraindication from a neurological perspective to this treatment though I'd recommend he obtain clearance from his machine pecan gatherer given his history of multiple coronary events. I would also want to seek further clarification from his neurosurgeon as to what other clearance is being sought from the neurologist's standpoint. I will be reaching out to Dr. Payan's office. CAD in [place] artery 01/28/2022 Overview (12/30/2023): CABG with multiple stents in 1988 Obstructive sleep apnea syndrome 01/28/2022 Cerebrovascular accident (CVA) 01/28/2022 History of coronary artery bypass surgery 2021 Benign hypertension 01/20/2022 Calculus of kidney 07/01/2020 Type 2 diabetes mellitus without complication Mood disorder 11/25/2014 Social History Tobacco Use Types Packs/Day Years Used Date Smoking Tobacco: Never Assessed Sex and Gender Information Value Date Recorded Sex Assigned at Male 12/28/2023 8:31 AM EST Legal Sex Male 2:18 PM EST Gender Identity Not on file Sexual Orientation Not on file Last Filed Vital Signs Vital Sign Reading Time Taken Comments Blood Pressure 112/69 12/30/2023 9:35 AM EST Pulse 80 12/30/2023 9:35 AM EST Temperature - - Respiratory Rate - - Oxygen Saturation 95% 12/30/2023 9:35 AM EST Inhaled Oxygen Concentration - - Weight 92.1 kg (203 lb) 12/30/2023 9:35 AM EST Height - - Body Mass Index - - Plan of Treatment Health Maintenance Due Date Last Done Comments Cologuard 1952 Colon Cancer Screening 1952 Colonoscopy 1952 FOBT / Fit Test 1952 Hepatitis C Screening 1952 Sigmoidoscopy 1952 Medicare AWV 1953 Ophthalmology Exam 1962 Urine Microalbumin 1962 RSV Vaccine (60+ years old a nd patients) (1 - Risk 60-74 years 1-dose series) 2012 COVID-19 Vaccine (2023-2 5 season) 2023 11/18/2022, 12/08/2021, 12/24/2020, Additional history exists Alcohol/Substance Use Screening 02/22/2024 Depression Screening and Follow-Up 02/22/2024 Health Care Proxy Review 02/22/2024 Social Drivers of Health Lupe ual Screening 02/22/2024 Hemoglobin A1C 05/09/2024 11/10/2023 Basic Metabolic Panel 11/09/2024 11/10/2023 DTaP,Tdap,and Td Vaccines (3 - Td or Tdap) 09/15/2030 09/15/2020, 08/08/2009, 09/29/2005 Hepatitis B Vaccines Completed 10/08/2016, 06/15/2016, 02/12/2016 Zoster Vaccines Completed 01/31/2019, 01/21, 11/30/2018, Additional history exists Pneumococcal Vaccine: 50+ Years Completed 09/15/2020, 10/26/2018, 04/26/2012, Additional history exists Influenza Vaccine Completed 10/31/2023, , 12/03/2021, Additional history exists Insurance MEDICARE [facility] Care Teams Chief Reservoir Engineering Relationship Specialty Start Date End Date DeepthiBea [address] [place] [address] [place] [address] PCP - General Family Medicine 12/26/23
--- OUTSIDE RECORDS SUMMARY | 2024-05-28 16:47 | XMS_ITS | Encounter Summary ---
Author Organization [employer] Address [address] [facility] 7t [place] [address] Care Team Providers Care Music Video Director Name Role Phone Bea Lacey MD Primary Care Provider [phone] Reason for Visit * Reason Onset Date Comments Medication Question 02/07/2023 Encounter Details Date Type Department Care Team ([facility] st Contact Info) Description 02/07/2023 Telephone [facility]ICINE [address] [place], [place] [phone] Bea Lacey MD [address] [place], [place] [phone] Medication Question Social History Tobacco Use Types Packs/Day Years [...] encounter Miscellaneous Notes * Telephone Encounter - Amarilys Patel RN - 02/08/2023 9:30 AM EST Placed call to pt regarding message below. Pt states he was started on Linzess by PCP and had colace discontinued. Pt states having diarrhea with the higher dose of Linzess and had the med lowered ph20leo last month. Pt states diarrhea has stopped but stools are hard. Pt is requesting to be placedback on colace along with the lowered dose of Linzess. Pt informed message will be sent to PCP and would be informed of plan. * Telephone Encounter - Sheri Villagran - 02/07/2023 10:57 AM EST Tc from pt requesting a call back in regards medications. documented in this encounter Plan of Treatment Upcoming Encounters Date Type Department Care Team (Late st Contact Info) Description 07/26/2024 9:30 AM EDT Office Visit [facility] MED & PEDS [address] [place] [address] Bea Lacey MD [address] [place] [address] documented as of this encounter Visit Diagnoses Not on filedocumented in this encounter Additional Health Concerns Assessment Noted Time PHQ-9 Depression Total Score: 7 05/29/19 23 10:45 AM EDT documented as of this encounter Care Teams Music Video Director Relationship Specialty Start Date End Date Bea Lacey MD [address] [place] [phone] PCP - General Family Medicine 09/22/22 documented as of this encounter
--- OUTSIDE RECORDS SUMMARY | 2024-05-28 16:47 | XMS_ITS | Referral Summary ---
Author Organization [facility] Address [address] [place] [address] Care Team Providers Care Nursing Clerk Name Role Phone Bea Lacey Primary Care Provider [phone] Allergies No known active allergies Medications buPROPion [...] I'd recommend he obtain clearance from his rn picu given his history of multiple coronary events. I would also want to seek further clarification from his neurosurgeon as to what other clearance is being sought from the neurologist's standpoint. I will be reaching out to Dr. Payan's office. CAD in [place] artery 01/28/2022 Overview (12/30/2023): CABG with multiple [...] Mass Index - - Plan of Treatment Not on file Insurance MEDICARE [facility] Care Teams Nursing Clerk Relationship Specialty Start Date End Date Bea Lacey [address] [place], [place] [address] [place] [address] PCP - General Family Medicine 12/26/23
--- OUTSIDE RECORDS SUMMARY | 2024-05-28 16:47 | XMS_ITS | Encounter Summary ---
Author Organization [employer] Address [address] [facility] [address] 7t [place] [address] Care Team Providers Care Information Systems Supervisor Name Role Phone Bea Lacey MD Primary Care Provider [phone] Encounter Details Date Type Department Care Team ([facility] st Contact Info) Description 05/21/2024 Telephone C [facility] [address] [place], [place] [phone] Bea Lacey MD [address] [place], [place] [phone] Social History Tobacco Use Types Packs/Day Years [...] Description 07/26/2024 9:30 AM EDT Office Visit [facility] MED & PEDS [address] [place] [address] Bea Lacey MD 505 [place] [address] documented as of this encounter Visit Diagnoses Not on filedocumented in this encounter Additional Health Concerns Assessment Noted Time PHQ-9 Depression Total Score: 20 024 10:22 AM EDT documented as of this encounter Care Teams Information Systems Supervisor Relationship Specialty Start Date End Date Bea Lacey MD [address] [place] [address] PCP - General Family Medicine 09/22/22 documented as of this encounter
--- OUTSIDE RECORDS SUMMARY | 2024-05-28 16:47 | XMS_ITS | Encounter Summary ---
Author Organization [employer] Address [address] [facility] 7t [place] [address] Care Team Providers Care Dungeon Master Name Role Phone Bea Lacey MD Primary Care Provider [phone] Reason for Visit * Reason Comments Med Refill Encounter Details Date Type Department Care Team ([facility] st Contact Info) Description 03/16/2024 Refill [facility] MED & PEDS [address] [place], [place] [phone] Bea Lacey MD 505 [place] [address] Social History Tobacco Use Types Packs/Day Years [...] Description 07/26/2024 9:30 AM EDT Office Visit [facility] MED & PEDS [address] [place] [address] Bea Lacey MD 505 [place] [address] documented as of this encounter Visit Diagnoses Not on filedocumented in this encounter Additional Health Concerns Assessment Noted Time PHQ-9 Depression Total Score: 20 024 10:22 AM EDT documented as of this encounter Care Teams Dungeon Master Relationship Specialty Start Date End Date Bea Lacey MD [address] [place] [id number] PCP - General Family Medicine 09/22/22 documented as of this encounter
--- OUTSIDE RECORDS SUMMARY | 2024-05-28 16:47 | XMS_ITS | Encounter Summary ---
Author Organization [employer] Address [address] [facility] 7t [place] [address] Care Team Providers Care Neurodiagnostic Technician Name Role Phone Bea Lacey MD Primary Care Provider [phone] Reason for Visit * Reason Comments Med Refill Encounter Details Date Type Department Care Team ([facility] st Contact Info) Description 02/06/2024 Refill [facility] DIABETES/NUTRITION [address] [place], [place] [phone] Bea Lacey MD [address] [place], [place] [phone] Type 2 diabetes mellitus with hyperglycemia, without long-term current use of insulin ([facility]) Social History Tobacco Use Types Packs/Day Years [...] Upcoming Encounters Date Type Department Care Team ([facility] st Contact Info) Description 07/26/2024 9:30 AM EDT Office Visit [facility] MED & PEDS 505 [place] [address] Bea Lacey MD 505 [place] [address] documented as of this encounter Visit Diagnoses Diagnosis Type 2 diabetes mellitus with hyperglycemia, without long-term current use of insulin ([facility]) documented in this encounter Additional Health Concerns Assessment Noted Time PHQ-9 Depression Total Score: 20 024 10:22 AM EDT documented as of this encounter Care Teams Neurodiagnostic Technician Relationship Specialty Start Date End Date Bea Lacey MD [address] [place] [id number] PCP - General Family Medicine 09/22/22 documented as of this encounter
--- OUTSIDE RECORDS SUMMARY | 2024-05-28 16:47 | XMS_ITS | Encounter Summary ---
Author Organization [employer] Address [address] [facility] 7t [place] [address] Care Team Providers Care Supervisor Beehive Kiln Name Role Phone Bea Lacey MD Primary Care Provider [phone] Reason for Visit * Reason Onset Date Comments Nurse Triage 03/05/2024 Encounter Details Date Type Department Care Team ([facility] st Contact Info) Description 03/05/2024 Telephone C [facility] [address] [place] [phone] Bea Lacey MD [address] [place], [place] [phone] Nurse Triage Social History Tobacco Use Types [...] encounter Miscellaneous Notes * Telephone Encounter - Bea Lacey MD - 03/06/2024 11:35 AM EST Xray was normal.Pt has to follow upw with pain management to discuss if the pain pump is causing nerve pinching * Telephone Encounter - Nita Wilson LPN - 03/05/2024 1:58 PM EST Triage call returned to patient who reports several issues. Patient with pain topically along skin surface where gallbladder was. Patient reports running his fingers over that area induces a burning sensation. No rash or redness and skin is intact. Patient reports that he discussed with PCP dull ache that he identifies underneath right lung below rib cage again on the right side. Patient reports that he has a nerve stimulator and pain pump both located in that area and is unsure if this is causing the pains. Pain is not worsened by deep breathing. No cough or congestion. Reviewed with Sonia response to recent xray findings. Patient reports that he is unable to get comfortable and right side of chest is painful and not able to deal with it . No PCP sick visits available at time of call. Patient with cardiology appt on Tuesday03/07/24 so is unavailable that day. Would like appt with PCP to follow with concerns. Team tasked to follow with PCP and update patient with appt. avai lability. Multiple (2) protocols were used on this call. Disposition for Call: Discuss with PCP and Callback by Nurse Today Protocol Used: Chest Pain (Adult) Protocol-Based Disposition: See in Office or Video Visit Today Override (Final) Disposition: Discuss with PCP and Callback by Nurse Today Override Reason: Already seen and questions Override Notes: Please see note Video visit not offered Positive Triage Questions: * All other patients with chest pain (Exception: Fleeting chest pain lasting a few seconds.) * Patient wants to be seen * All higher-acuity triage questions were negative Care Advice Discussed: * Reasons To Call Back - Chest pain increases in frequency, duration or severity - Chest pain lasts over 5 minutes - Chest pains persist over 3 days - Difficulty breathing or unusual sweating occurs - You become worse Protocol Used: No Protocol Available (Adult) Protocol-Based Disposition: Discuss with PCP and Callback by Nurse Today Video visit not offered Positive Triage Question: * Nursing judgment * All higher-acuity triage questions were negative * Telephone Encounter - Amisha Campa - 03/05/2024 1:33 PM EST Symptom: Rash or Redness on One Body Area Only Outcome: Schedule an appointment to be seen within 3 days Reason: Caller denied all higher acuity questions The caller accepted this outcome. Pt inform a burning sensation near rib area after gallbladder removal . documented in this encounter Plan of Treatment Upcoming Encounters Date Type Department Care Team (Late st Contact Info) Description 07/26/2024 9:30 AM EDT Office Visit [facility] MED & PEDS [address] [place], [place] [phone] Bea Lacey MD 505 [place] [address] documented as of this encounter Visit Diagnoses Not on filedocumented in this encounter Additional Health Concerns Assessment Noted Time PHQ-9 Depression Total Score: 20 024 10:22 AM EDT documented as of this encounter Care Teams Supervisor Beehive Kiln Relationship Specialty Start Date End Date Bea Lacey MD [address] [place] [address] PCP - General Family Medicine 09/22/22 documented as of this encounter
--- OUTSIDE RECORDS SUMMARY | 2024-05-28 16:48 | XMS_ITS | Encounter Summary ---
Author Organization [employer] Address [address] [facility] [address] 7[address] [place] [address] Care Team Providers Care Fire Equipment Inspector Helper Name Role Phone Bea Lacey MD Primary Care Provider [phone] Reason for Visit * Reason Onset Date Comments Medication Question 06/20/2023 Encounter Details Date Type Department Care Team ([facility] st Contact Info) Description 06/20/2023 Telephone [facility] MEDICINE [address] [place], [place] [phone] Bea Lacey MD [address] [place], [place] [phone] Medication Question Social History Tobacco Use Types [...] Telephone Encounter - Amarilys Patel RN - 06/21/2023 3:20 PM EDT Please review and advise on message sent on 06/10/23 regarding meds for constipation. * Telephone Encounter - Jack Kirkland - 06/20/2023 1:26 PM EDT Tc from patient calling to request a medicated laxative due to having constipation and should not be forcing while having a aneurysm with the increase in linaCLOtide (Linzess) 145 MCG capsule documented in this encounter Plan of Treatment Upcoming Encounters Date Type Department Care Team (Late st Contact Info) Description 07/26/2024 9:30 AM EDT Office Visit [facility] MED & PEDS [address] [place] [address] Bea Lacey MD [address] [place] [address] documented as of this encounter Visit Diagnoses Not on filedocumented in this encounter Additional Health Concerns Assessment Noted Time PHQ-9 Depression Total Score: 20 024 10:22 AM EDT documented as of this encounter Care Teams Fire Equipment Inspector Helper Relationship Specialty Start Date End Date Bea Lacey MD [address] [place] [phone] PCP - General Family Medicine 09/22/22 documented as of this encounter
--- OUTSIDE RECORDS SUMMARY | 2024-05-28 16:48 | XMS_ITS | Clinical Summary ---
Author Organization [facility] Address [address] [place] [phone] Phone Care Team Providers Care Diamond Cleaver Name Role Phone Lula Lacey MD Primary Care Provider [phone] Allergies Active Allergy Reactions Criticality Noted Date Comments Grass Pollen Standardized Ext 07/09/2020 Other 01/28/2022 Grass pollen, Tree and shrub pollen per previous EHR (07/09/20) Pollen Extract 07/09/2020 Medications tamsulosin (FLOMAX) 0.4 MG 24 hr capsule Take 1 capsule by mouth 2 (two) times a day Active rosuvastatin (CRESTOR) 40 MG tablet Take 1 tablet by mouth 1 (one) time each day Active rivaroxaban (XARELTO) 10 MG tablet Take 1 tablet by mouth 1 (one) time each day Active raNITIdine (ZANTAC) 150 MG capsule Take 1 capsule by mouth 2 (two) times a day Active aspirin (ST ANU) 81 MG EC tablet Take 81 mg by mouth 1 (one) time each day Active buPROPion (ZYBAN) 150 MG 12 hr tablet Take 150 mg by mouth in the morning and 150 mg in the evening. Do not crush, chew, or split. . Active citalopram (CeleXA) 20 MG tablet Take 20 mg by mouth 1 (one) time each day Active docusate sodium (COLACE) 50 MG capsule Take by mouth 2 (two) times a day Active carvedilol (COREG) 6.25 MG tablet Take 6.25 mg by mouth 2 (two) times a day with meals Active fenofibrate (TRIGLIDE) 160 MG tablet Take 160 mg by mouth 1 (one) time each day Active HYDROcodone-acet aminophen (NORCO) 5-325 MG per tablet Take 1 tablet by mouth every 6 (six) hours if needed for moderate pain Active isosorbide mononitrate (IMDUR) 60 MG 24 hr tablet Take 60 mg by mouth 1 (one) time each day Do not crush or chew. Active clonazePAM (KlonoPIN) 1 MG tablet Take 1 mg by mouth 2 (two) times a day Active atorvastatin (LIPITOR) 40 MG tablet Take 40 mg by mouth 1 (one) time each day Active Naloxegol Oxalate (Movantik) 25 MG tablet Take by mouth Active buPROPion XL (WELLBUTRIN XL) 300 MG 24 hr tablet 1 Active Relistor 150 MG tablet 1 Active metoprolol succinate XL (TOPROL XL) 25 MG 24 hr tablet 1 Active polyethylene glycol (GLYCOLAX) 17 GM/SCOOP powder STIR 17GM INTO 8 OUNCES OF WATER, OR JUICE, AND DRINK DAILY NEEDED / DIRECTED 1 Active prazosin (MINIPRESS) 1 MG capsule TAKE ONE CAPSULE BY MOUTH AT BEDTIME 1 Active torsemide (DEMADEX) 20 MG tablet 1 Active spironolactone (ALDACTONE) 25 MG tablet 1 Active Linzess 145 MCG capsule TAKE ONE CAPSULE EVERY MORNING BEFORE BREAKFAST. DO NOT BREAK, CRUSH, DISSOLVE OR CHEW 3 Active Ozempic, 0.25 or 0.5 MG/DOSE, 2 MG/3ML solution pen-injector Inject 0.25 mg under the skin 1 (one) time per week for 30 days, THEN 0.5 mg 1 (one) time per week for 30 days, 3 Active Dapagliflozin Propanediol (Farxiga) 10 MG tablet Take 10 mg by mouth every morning 30 tablet 5 4 Active esomeprazole (NexIUM) [address] capsule Take 40 mg by mouth 1 (one) time each day before breakfast Do not open capsule. Active Dapagliflozin Propanediol (Farxiga) 10 MG tablet Take 10 mg by mouth 1 (one) time each day in the morning Active mirtazapine (REMERON) 7.5 MG tablet Take 7.5 mg by mouth every night Active baclofen (LIORESAL) 20 MG tablet Take 20 mg by mouth in the morning and 20 mg in the evening and 20 mg before bedtime. Active cetirizine (ZyrTEC) 10 MG tablet Take 10 mg by mouth 1 (one) time each day Active famotidine (PEPCID) 40 MG tablet Take 40 mg by mouth 1 (one) time each day Active finasteride (PROSCAR) 5 MG tablet Take 5 mg by mouth 1 (one) time each day Do not crush, chew, or split. Active lisinopril 10 MG tablet Take 10 mg by mouth 1 (one) time each day Active primidone (MYSOLINE) 250 MG tablet Take 250 mg by mouth in the morning and 250 mg at noon and 250 mg in the evening and 250 mg before bedtime. Active sertraline (ZOLOFT) 100 MG tablet Take 100 mg by mouth 1 (one) time each day Active Cholecalciferol (Vitamin D-3) 25 MCG (1000 UT) capsule Take by mouth Active Active Problems Problem Noted Date Diagnosed Date Chronic kidney disease stage 2 01/25/2024 Chronic idiopathic constipation 06/28/2022 Overview (07/14/2022): Last Assessment & Plan: Will start on linzess, told to stop docusate after starting new medication, also refers that he has been 1 week without bowel movement will send a rectal enema Preprocedural examination done 02/03/2022 Overview (07/14/2022): Last Assessment & Plan: Patient will undergo a left shoulder arthrocentesis [...] Hold farxiga the morning of the procedure. Cerebrovascular accident 01/28/2022 Bilateral tinnitus 01/28/2022 Bilateral cataracts 01/28/2022 Benzodiazepine dependence 01/28/2022 Benign prostatic hyperplasia 01/28/2022 Continuous opioid dependence 01/28/2022 Compression fracture of lumbar spine 01/28/2022 Diverticulitis 01/28/2022 H/O: artificial joint 01/28/2022 Excessive sweating 01/28/2022 Essential tremor 01/28/2022 Erectile dysfunction due to diseases classified elsewhere 01/28/2022 H/O: fracture 01/28/2022 Overview (07/14/2022): Per previous EHR Hiatal hernia 01/28/2022 History of coronary artery bypass grafting 01/28 History of parathyroidectomy 01/28/2022 History of surgery 01/28/2022 Overview (07/14/2022): History of gastri restrictive surgery and s/p laparoscopic sleeve gastrectomy per previous EHR Osteoporosis 01/28/2022 Cerebral infarction 01/20/2022 Obese class I 01/20/2022 Atrial fibrillation 01/20/2022 Overview (01/20/2022): 2 afib ablations Anemia of chronic disease 01/20/2022 Abdominal aortic aneurysm 01/20/2022 Backache 01/20/2022 Depressive disorder 01/20/2022 Overview (01/20/2022): history of suicidal ideation Atherosclerosis of artery 01/20/2022 Overview (01/20/2022): CABG with multiple stents in 1988 Congestive heart failure 01/20/2022 Drug abuse 01/20/2022 Diffuse spasm of esophagus 01/20/2022 Hyperlipidemia 01/20/2022 Left ventricular systolic dysfunction 01/20/2022 Intermittent tremor 01/20/2022 Nightmares associated with c hronic post-traumatic stress disorder 01/20/2022 Central sleep apnea syndrome 01/20/2022 Old myocardial infarction 01/20/2022 Restless leg syndrome 01/20/2022 Primary insomnia 01/20/2022 Hypertension 01/20/2022 Chronic kidney disease stage 3 07/01/2020 Hypertensive renal disease 07/01/2020 Renal stone 07/01/2020 Type 2 diabetes mellitus without complication Stage 3a chronic kidney disease 07/01/2020 Abdominal aortic aneurysm 11/02/2018 Immunizations Name Administration Dates Next Due Hepatitis B 10/08/2016,06/15/2016,02/12/2016 Influenza Split 11/27/2012 Influenza Split High Dose Pr eservative Free IM 12/05/2017 Influenza, MDCK, PF, Quadrivalent 12/15/2020 Influenza, Quadrivalent, Pre servative Free 12/28/2016,11/25/2014 Influenza, Quadrivalent, Wit h Preservative 11/02/2018,02/12/2016 Influenza, Unspecified 12/03/2021,2019,11/29/2013,04/26,11/13/2010,10/25/2008,03/01/2008 ,01/07/2006 Moderna SARS-COV-2 05/27/2020,04/29/2020 Pfizer SARS-COV-2 12/08/2021,12/24/2020 Pneumococcal Conjugate 13-Valent 10/26/2018 Pneumococcal Polysaccharide 09/15/2020,0 04/26/2012,01/01/2006,09/29 SARS-CoV-2, Unspecified 12/08/2021 Shingrix 01/31/2019,11/30/2018 Td 09/15/2020,09/29/2005 Tdap 08/08/2009 Zoster 06/17/2014 Family History Medical History Relation Comments Kidney disease Child Heart disease Father Hypertension Father Cancer Mother Heart disease Mother Hypertension Mother Stroke Mother Relation Status Comments Child Father Unknown Mother Unknown Social History Tobacco Use Types Packs/Day Years Used Date Smoking Tobacco: Former Alcohol Use Standard Drinks/Week Comments No 0 (1 standard drink = 0.6 oz pur e alcohol) Sex and Gender Information Value Date Recorded Sex Assigned at Not on file Legal Sex Male 5:05 PM EST Gender Identity Not on file Sexual Orientation Not on file Last Filed Vital Signs Vital Sign Reading Time Taken Comments Blood Pressure 110/80 01/25/2024 1:07 PM EST Pulse 77 01/25/2024 1:07 PM EST Temperature - - Respiratory Rate - - Oxygen Saturation 94% 01/25/2024 1:07 PM EST Inhaled Oxygen Concentration - - Weight 88 kg (194 lb) 01/25/2024 1:07 PM EST Height - - Body Mass Index - - Plan of Treatment Upcoming Encounters Date Type Department Care Team (Late st Contact Info) Description 01/30/2025 1:00 PM EST Office Visit [facility] [address] [address] Get Galo MD [address] [address] Health Maintenance Due Date Last Done Comments Colorectal Cancer Screening: Annual FOBT 2001 Colorectal Cancer Screening: Colonoscopy 2001 Colorectal Cancer Screening: Sigmoidoscopy 2001 Diabetes: Ophthalmology Exam 03/23/2020 Diabetes: Pedal Pulse Checked 03/23/2020 Diabetes: Sensory Foot Exam 03/23/2020 Diabetes: Visual Foot Exam 03/23/2020 Diabetes: Hemoglobin A1C 02/09/2024 11/10/2023, 080 02/2018 Hepatitis B Vaccine Aged Out 10/08/2016, 06/15/2016, 02/12/2016 No longer eligible based on patient's age to complete this topic Pneumococcal Vaccine: 65+ Years Completed 09/15/2020, 10/26/2018, 04/26/2012, Additional history exists Influenza Vaccine Completed 10/31/2023, , 12/15/2020, Additional history exists Procedures Procedure Name Priority Date/Time Associated Diagnosis Comments BLOOD PANEL (HC) Routine 09/21/2018 12:0 0 AM EDT from Last 3 Months or Most Recently Relevant to Health Maintenance Results * (ABNORMAL) Blood Panel (09/21/2018 12:00 AM EDT) HDL 46 >40 mg/dl [facility] Hematocrit 32.3(L) 38 - 50 % [facility] Creatinine 0.89 0.70 - 1.30 mg/dl [facility] Phosphorus, Serum 3.4 2.5 - 4.5 mg/dl [facility] Cholesterol 126 <200 mg/dl [facility] Hgb 10.3(L) 13.0 - 16.5 g/dl [facility] Iron 31(L) 49 - 181 ug/dl [facility] Ferritin 58 [facility] Hemoglobin A1C 6.7(H) <5 % [facility] BUN 16 9 - 20 mg/dl [facility] eGFR Non- >60 >60 ml/min [facility] Triglycerides 67 <150 mg/dl [facility] LDL,Direct 67 <130 mg/dl [facility] Iron Saturation (TSat) 8(L) 15 - 62 % [facility] Sodium 142 137 - 145 mmol/L [facility] Potassium 4.0 3.5 - 5.1 mmol/L [facility] Carbon Dioxide (CO2) 26 22 - 30 mmol/L [facility] Calcium 8.7 8.4 - 10.2 mg/dl [facility] PTH 15 10 - 69 pg/ml [facility] Vitamin D, 25-OH, Total 34 20 - 100 ng/ml [facility] Platelets 219 140 - 440 k/uL [facility] TIBC 381 261 - 462 ug/dl [facility] 09/21/2018 us [facility] Conversion LAB [id number] LICITED RESULTS Final Result [facility] from Last 3 Months or Most Recently Relevant to Health Maintenance Insurance MEDICARE [place]ID [place] Care Teams Diamond Cleaver Relationship Specialty Start Date End Date Lula Lacey MD [address] [place] [address] PCP - General Internal Medicine 01/25/24
--- OUTSIDE RECORDS SUMMARY | 2024-05-28 16:48 | XMS_ITS | Encounter Summary ---
Author Organization [employer] Address [address] [place] [address] 7t [place] [address] Care Team Providers Care Draftsperson Name Role Phone Bea Lacey MD Primary Care Provider Reason for Visit * Reason Comments Med Refill Encounter Details Date Type Department Care Team ([facility] Contact Info) Description 10/11/2022 Refill [facility] MED & PEDS [address] [facility] [place] [phone] Bea Lacey MD [address] [place] [address] Chronic rhinitis Social History Tobacco Use Types Packs/Day Years Used Date Smoking Tobacco: Never Passive Smoke Exposure: Never Smokeless Tobacco: Never Alcohol Use Standard Drinks/Week Comments Never 0 (1 standard drink = 0.6 oz pur e alcohol) Depression Answer Date Recorded Patient Health Questionnaire-9 Score 7 05/28/2022 Depression Answer Date Recorded Patient Health Questionnaire-2 [...] Encounters Date Type Department Care Team (Late Contact Info) Description 07/26/2024 9:30 AM EDT Office Visit [facility] MED & PEDS [address] [place] [address] Bea Lacey MD [address] [place], [place] [phone] documented as of this encounter Visit Diagnoses Diagnosis Chronic rhinitis documented in this encounter Additional Health Concerns Assessment Noted Time PHQ-9 Depression Total Score: 7 05/29/19 10:45 AM EDT documented as of this encounter Care Teams Draftsperson Relationship Specialty Start Date End Date Bea Lacey MD [address] [place] [phone] PCP - General Family Medicine 09/22/22 documented as of this encounter
--- OUTSIDE RECORDS SUMMARY | 2024-05-28 16:48 | XMS_ITS | Encounter Summary ---
Author Organization [employer] Address [address] [facility] 7t [place] [address] Care Team Providers Care Restaurant Worker Name Role Phone Bea Lacey MD Primary Care Provider [phone] Reason for Visit * Reason Onset Date Comments Results 04/28/2023 Encounter Details Date Type Department Care Team ([facility] st Contact Info) Description 04/28/2023 Telephone [facility] MEDICINE [address] [place], [place] [phone] Bea Lacey MD [address] [place], [place] [phone] Results Social History Tobacco Use Types Packs/Day [...] encounter Miscellaneous Notes * Telephone Encounter - Sheri Villagran - 04/28/2023 11:17 AM EST Tc from pt requesting a call back with lab results. documented in this encounter Plan of Treatment Upcoming Encounters Date Type Department Care Team (Late st Contact Info) Description 07/26/2024 9:30 AM EDT Office Visit [facility] MED & PEDS [address] [place] [address] Bea Lacey MD [address] [place] [address] documented as of this encounter Visit Diagnoses Not on filedocumented in this encounter Additional Health Concerns Assessment Noted Time PHQ-9 Depression Total Score: 7 05/29/19 23 10:45 AM EDT documented as of this encounter Care Teams Restaurant Worker Relationship Specialty Start Date End Date Bea Lacey MD [address] [place] [phone] PCP - General Family Medicine 09/22/22 documented as of this encounter
--- OUTSIDE RECORDS SUMMARY | 2024-05-28 16:48 | XMS_ITS | Encounter Summary ---
Author Organization [employer] Address [address] [facility] 7t [place] [address] Care Team Providers Care Keypunch Operator Name Role Phone Gordon Mills MD Primary Care Prov ider Bea Lacey MD Primary Care Provider [phone] Reason for Visit * Reason Comments Med Refill Encounter Details Date Type Department Care Team ([facility] st Contact Info) Description 09/02/2022 Refill [facility] [address] [place], [place] [phone] Peter Barlow MD [address] [place], [place] [phone] Social History Tobacco Use Types Packs/Day Years [...] not to disclose 2021 10:17 AM EDT COVID-19 Exposure Response Date Recorded In the last 10 days, have yo u been in contact with someone who was confirmed or suspected to have Coronavirus/COVID-19? No / Unsure 08/05/2022 2:17 PM EDT documented as of this encounter Plan of Treatment Upcoming Encounters Date Type Department Care Team (Late st Contact Info) Description 07/26/2024 9:30 AM EDT Office Visit [facility] [address] [place] [address] Bea Lacey MD 505 [place] [address] documented as of this encounter Visit Diagnoses Not on filedocumented in this encounter Additional Health Concerns Assessment Noted Time PHQ-9 Depression Total Score: 7 05/29/19 10:45 AM EDT documented as of this encounter Care Teams Keypunch Operator Relationship Specialty Start Date End Date Martin Gordon Rocha MD [address] [place] [address] PCP - General Internal Medicine 07/12/19 09/21/22 Bea Lacey MD [address] [place] [address] PCP - General Family Medicine 09/22/22 documented as of this encounter
--- OUTSIDE RECORDS SUMMARY | 2024-05-28 16:48 | XMS_ITS | Clinical Summary ---
Author Organization [facility] Address [address] [place] [address] Phone Care Team Providers Care Couturiere Name Role Phone Bea Lacey MD Primary Care Provider [phone] Allergies No known active allergies Medications aspirin (Vazalore) 81 mg capsule Take by mouth. Active baclofen (LIORESAL) 10 mg tablet Take 1 Tablet by mouth 3 times daily. Active buPROPion XL (WELLBUTRIN XL) 300 mg 24 hr tablet Take 1 Tablet by mouth every morning. Active cephalexin (KEFLEX) 500 mg capsule Take 1 Capsule by mouth 3 times daily for 10 days. Active cetirizine (ZyrTEC) 10 mg tablet Take 1 Tablet by mouth daily. Active clonazePAM (KlonoPIN) 0.5 mg tablet Take 1 Tablet by mouth 2 times daily as needed. Active dapagliflozin propanediol (FARXIGA) 10 mg tablet Take by mouth. Active dextrose-fructose- sod citrate 968-175-230 mg tablet,chewable Take by mouth. Active eplerenone (INSPRA) 25 mg tablet Take 1 Tablet by mouth daily. Active finasteride (PROSCAR) 5 mg tablet Take 1 Tablet by mouth daily. Active gabapentin (NEURONTIN) 100 mg capsule Take 1 Capsule by mouth daily. Active hydrOXYzine pamoate (VISTARIL) 25 mg capsule Take 1 Capsule by mouth 3 times daily as needed. Active insulin glargine (LANTUS SoloStar) 100 unit/mL (3 mL) injection pen Inject into the skin. Active isosorbide mononitrate (IMDUR) 60 mg 24 hr tablet Take 1 Tablet by mouth daily. Active linaCLOtide (Linzess) 72 mcg capsule Take by mouth. Active lisinopriL (PRINIVIL,ZESTRIL) 30 mg tablet Take 1 Tablet by mouth daily. Active melatonin 10 mg capsule Take by mouth. Active METOPROLOL SUCCINATE ORAL Take by mouth. Active mirtazapine (REMERON LORENZO-TAB) 15 mg disintegrating tablet Take 1 Tablet by mouth at bedtime. Active nitroglycerin (NITRODUR) 0.3 mg/hr Place 1 Patch onto the skin daily. Active pilocarpine (SALAGEN) 7.5 mg tablet Take 1 Tablet by mouth 3 times daily. Active prazosin (MINIPRESS) 5 mg capsule Take 1 Capsule by mouth at bedtime. Active rivaroxaban (XARELTO) 20 mg tablet Take by mouth. Active rosuvastatin (CRESTOR) 10 mg tablet Take 1 Tablet by mouth daily. Active torsemide (DEMADEX) 10 mg tablet Take 1 Tablet by mouth daily. Active silver sulfADIAZINE (SILVADENE, SSD) 1 % cream Apply topically to nail bed daily Active spironolactone (ALDACTONE) 100 mg tablet Take 25 mg by mouth daily. Active sucralfate (CARAFATE) 1 gram tablet Take 1 Tablet by mouth 4 times daily. Active tamsulosin HCl (TAMSULOSIN ORAL) Take by mouth. Active terbinafine (LamISIL) 250 mg tablet Take 1 Tablet by mouth daily for 90 days. 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 Benign hypertension 12/30/2023 BPH (benign prostatic hyperplasia) 12/30/2023 Bilateral cataracts 12/30/2023 Bilateral tinnitus 12/30/2023 CVA (cerebral vascular accident) 12/30/2023 Heart failure with normal ejection fraction 09/2023 Hyperlipidemia 12/30/2023 History of parathyroidectomy 12/30/2023 CKD (chronic kidney disease) 12/30/2023 Type 2 diabetes mellitus with hyperglycemia 09/2023 CAD in [place] artery 12/30/2023 Erectile dysfunction due to diseases classified elsewhere 12/30/2023 Benign essential tremor 12/30/2023 Immunizations Name Administration Dates Next Due Moderna SARS-CoV-2 COVID-19, mRNA, LNP-S, preservative free 12/08/2021 Social History Tobacco Use Types Packs/Day Years Used Date Smoking Tobacco: Never Assessed Sex and Gender Information Value Date Recorded Sex Assigned at Not on file Legal Sex Male 10:31 AM EST Gender Identity Not on file Sexual Orientation Not on file Last Filed Vital Signs Vital Sign Reading Time Taken Comments Blood Pressure - - Pulse - - Temperature - - Respiratory Rate - - Oxygen Saturation - - Inhaled Oxygen Concentration - - Weight 93.4 kg (206 lb) 02/07/2024 10:58 AM EST Height 172.7 cm (5' 7.99 ) 02/07/2024 10:[address] Body Mass Index 31.33 02/07/2024 10:58 AM EST Plan of Treatment Health Maintenance Due Date Last Done Comments Diabetes: Annual Foot Exam 1962 Diabetes: Annual Retina Eye Exam 1962 RSV Immunization Adult Patients (1 - Risk 60-74 years 1-dose series) 2012 Colorectal Cancer Screening: Colonoscopy 11/25/2023 Falls Risk Assessment 11/25/2023 Hepatitis C Screening 11/25/2023 Medicare Annual Wellness Visit 11/25/2023 Social Influencers of Health Screening 11/25/2023 Diabetes: Annual Urine Albumin-Creatinine Ratio (uACR) 12/01/2023 Diabetes: Blood Sugar Control Test (HGBA1C) 05/09/2024 11/10/2023 Depression Screening 06/02/2024 06/03/2023 Diabetes: Annual GFR (Glomerular Filtration Rate) 11/09/2024 11/10/2023, 02/06/2001 Hypertension/CHF/CAD Annual BMP Blood Test 11/09/2024 11/10/2023, 02/06/2001 Cholesterol Screening (Lipid Panel) 11/09/2028 11/10/2023 DTaP,Tdap,and Td Vaccines (4 - Td or Tdap) 09/15/2030 09/15/2020, 08/08/2009, 09/29/2005 Hepatitis B Vaccines Completed 10/08/2016, 06/15/2016, 02/12/2016 Zoster Vaccines Completed 01/31/2019, 11/21, 06/17/2014 Pneumococcal Vaccine: 50+ Years Completed 09/15/2020, 10/26/2018, 04/26/2012, Additional history exists Influenza Vaccine Completed 10/31/2023, , 12/03/2021, Additional history exists COVID-19 Vaccine Completed 11/01/2023, , 12/08/2021, Additional history exists HIB Vaccines Aged Out No longer eligi ble based on patient's age to complete this topic HPV Vaccines Aged Out No longer eligi ble based on patient's age to complete this topic Hepatitis A Vaccines Aged Out No long er eligible based on patient's age to complete this topic IPV Vaccines Aged Out No longer eligi ble based on patient's age to complete this topic MMR Vaccines Aged Out No longer eligi ble based on patient's age to complete this topic Meningococcal ACWY Vaccine Aged Out N o longer eligible based on patient's age to complete this topic Meningococcal B Vaccine Aged Out No l onger eligible based on patient's age to complete this topic RSV Immunization Patients Under 20 months Aged Out No longer eligible based on patient's age to complete this topic Varicella Vaccines Aged Out No longer eligible based on patient's age to complete this topic Procedures Procedure Name Priority Date/Time Associated Diagnosis Comments ANNUAL BMP BLOOD TEST Routine 02/06/2001 from Last 3 Months or Most Recently Relevant to Health Maintenance Results * Annual BMP Blood Test (02/06/2001) Annual BMP Blood Test abstracted Historical Provider MD HEALTH MAINTENANCE Final Result from Last 3 Months or Most Recently Relevant to Health Maintenance Insurance MEDICARE MEDICAID - [place] Care Teams Couturiere Relationship Specialty Start Date End Date Bea Lacey MD [address] [place] [address] PCP - General 04/04/23
--- OUTSIDE RECORDS SUMMARY | 2024-05-28 16:48 | XMS_ITS | Encounter Summary ---
Author Organization [employer] Address 75 [facility] 7 [place] [address] Care Team Providers Care Prototype Deicer Assembler Name Role Phone Gordon Mills MD Primary Care Prov ider Bea Lacey MD Primary Care Provider [phone] Reason for Referral * Social Care Application (Routine) - Closed Specialty Diagnoses / Procedures Referred By Contac t Referred To Contact Diabetic / Diabetes Services Diagnoses Type 2 diabetes mellitus with hyperglycemia, without long-term current use of insulin (CMS/HCC) Peter Barlow MD [address] [place] [address] Phone: tel: fax: Referral ID Status Reason Start Date Expiration Date V isits Requested Visits Authorized [id number] Closed Specialty Services Required 09/02/2022 03/01/2023 1 1 Encounter Details Date Type Department Care Team ([facility] st Contact Info) Description 09/02/2022 Orders Only [facility] & [facility]EDS [address] [place] [address] Peter Barlow MD [address] [place], [place] [phone] Type 2 diabetes mellitus with hyperglycemia, without long-term current use of insulin (CMS/HCC) (Primary Dx) Social History Tobacco Use Types Packs/Day Years [...] Description 07/26/2024 9:30 AM EDT Office Visit [facility] [address] [place] [address] Bea Lacey MD [address] [place] [address] Scheduled Referrals Name Type Priority Associated Diagnoses Order Schedule Referral to Diabetes Prevention Program Outpatient Referral Routine Type 2 diabetes mellitus with hyperglycemia, without long-term current use of insulin (CMS/HCC) Ordered: 09/02/2022 documented as of this encounter Visit Diagnoses Diagnosis Type 2 diabetes mellitus with hyperglycemia, without long-term current use of insulin (CMS/HCC)- Primary documented in this encounter Additional Health Concerns Assessment Noted Time PHQ-9 Depression Total Score: 7 05/29/19 23 10:45 AM EDT documented as of this encounter Care Teams Prototype Deicer Assembler Relationship Specialty Start Date End Date Gordon Mills MD [address] [place] [address] PCP - General Internal Medicine 07/12/19 09/21/22 Bea Lacey MD [address] [place] [address] PCP - General Family Medicine 09/22/22 documented as of this encounter
--- OUTSIDE RECORDS SUMMARY | 2024-05-28 16:48 | XMS_ITS | Encounter Summary ---
Author Organization [employer] Address 75 [facility] 7t [place] [address] Care Team Providers Care Health Aid Name Role Phone Bea Lacey MD Primary Care Provider [phone] Reason for Visit * Reason Onset Date Comments Medication Question 06/10/2023 Encounter Details Date Type Department Care Team ([facility] Contact Info) Description 06/10/2023 Telephone [facility] MED & PEDS [address] [place] [phone] Bea Lacey MD [address] [place], [place] [phone] Medication Question Social History Tobacco Use Types [...] Telephone Encounter - Bea Lacey MD - 06/22/2023 9:36 AM EDT Spoke to pt in detail. Advised to Cont Linzess as discussed in the appt and then take miralax . Advised to call back in 2 weeks * Telephone Encounter - Wing Tiana RN - 06/10/2023 2:19 PM EDT Please advise. Tc to pt about medication request. Pt stated that at last office visit, discussed taking Linzess at 145 mcg every day with an additional 75 mcg every other day as well. Cofnrimed to bein provider note from that visit. Only prescription written is 72 mcg of linzess once every morning. Pt also requesting that he be put back on two stool softeners every morning and two stool softeners every night. Pt states that the current regiment of one stool softener in the morning and one in the afternoon is not working and he and the pharmacist agree that he should go back to the old regiment of two in the morning and two at night. * Telephone Encounter - Amisha Campa - 06/10/2023 11:38 AM EDT Tc from pt requesting a call back would like to discuss medication below and do couple changes . Please call pt to clarify . docusate sodium (Colace) 100 MG capsule linaCLOtide (Linzess) 145 MCG capsule documented in this encounter Plan of Treatment Upcoming Encounters Date Type Department Care Team (Late st Contact Info) Description 07/26/2024 9:30 AM EDT Office Visit [facility] MED & PEDS [address] [place] [address] Bea Lacey MD [address] [place] [address] documented as of this encounter Visit Diagnoses Not on filedocumented in this encounter Additional Health Concerns Assessment Noted Time PHQ-9 Depression Total Score: 20 024 10:22 AM EDT documented as of this encounter Care Teams Health Aid Relationship Specialty Start Date End Date Bea Lacey MD [address] [place] [address] PCP - General Family Medicine 09/22/22 documented as of this encounter
--- OUTSIDE RECORDS SUMMARY | 2024-05-28 16:48 | XMS_ITS | Encounter Summary ---
Author Organization [employer] Address [address] [facility] [address] 7t [place] [address] Care Team Providers Care Bicycle Taxi Driver Name Role Phone Bea Lacey MD Primary Care Provider [phone] Encounter Details Date Type Department Care Team (Late st Contact Info) Description 06/07/2023 Orders Only [facility] MED[facility] [address] [place], [place] [phone] ProviderTia MD Social History Tobacco Use Types [...] is your housing situation today? I have zoeadelaide abreu 12/08/[address] you [...] t he electric, gas, oil or water [employer] threatened to shut off services in your [...] Description 07/26/2024 9:30 AM EDT Office Visit [facility] MED & PEDS [address] [place], [place] [phone] Bea Lacey MD [address] [place] [address] documented as of this encounter Procedures Procedure Name Priority Date/Time Associated Diagnosis Comments HM COLONOSCOPY Routine 03/14/2014 12:17 PM EST documented in this encounter Results * Hm Colonoscopy (03/14/2014 12:17 PM EST) us Historical Provider HEALTH MAINTENANCE Final Result documented in this encounter Visit Diagnoses Not on filedocumented in this encounter Additional Health Concerns Assessment Noted Time PHQ-9 Depression Total Score: 20 024 10:22 AM EDT documented as of this encounter Care Teams Bicycle Taxi Driver Relationship Specialty Start Date End Date Bea Lacey MD [address] [place] [address] PCP - General Family Medicine 09/22/22 documented as of this encounter
--- OUTSIDE RECORDS SUMMARY | 2024-05-28 16:48 | XMS_ITS | Encounter Summary ---
Author Organization [employer] Address [address] [place] [address] 7t [place] [address] Care Team Providers Care Automotive Customer Experience Advisor Name Role Phone Bea Lacey MD Primary Care Provider [phone] Reason for Visit * Reason Comments Med Refill Encounter Details Date Type Department Care Team ([facility] Contact Info) Description 09/30/2022 Refill [facility] MED & PEDS [address] [place], [place] [phone] Gordon Mills MD [address] [place], [place] [phone] Chronic rhinitis Social History Tobacco Use Types [...] Upcoming Encounters Date Type Department Care Team ([facility] Contact Info) Description 07/26/2024 9:30 AM EDT Office Visit [facility] MED [facility] PEDS [address] [place], [place] [phone] Bea Lacey MD [address] [place], [place] [phone] documented as of this encounter Visit Diagnoses Diagnosis Chronic rhinitis documented in this encounter Additional Health Concerns Assessment Noted Time PHQ-9 Depression Total Score: 7 05/29/19 23 10:45 AM EDT documented as of this encounter Care Teams Automotive Customer Experience Advisor Relationship Specialty Start Date End Date Bea Lacey MD [address] [place] [address] PCP - General Family Medicine 09/22/22 documented as of this encounter
--- OUTSIDE RECORDS SUMMARY | 2024-05-28 16:48 | XMS_ITS | Encounter Summary ---
Author Organization [employer] Address 75 [facility] 7t [place] [address] Care Team Providers Care Pododermatologist Name Role Phone Gordon Mills MD Primary Care Prov ider Bea Cottrell MD Primary Care Provider [phone] Reason for Visit * Reason Onset Date Comments PCP change 09/01/2022 Encounter Details Date Type Department Care Team ([facility] st Contact Info) Description 09/01/2022 Telephone [facility] MED & PEDS [address] [place], [place] [phone] Gordon Mills MD [address] [place], [place] [phone] PCP change Social History Tobacco Use Types Packs/Day Years [...] PM EDT documented as of this encounter Miscellaneous Notes * Telephone Encounter - Amy Fischer - 09/01/2022 2:43 PM EDT Tc from pt requesting to change PCP. States he needs to be seen more often in person and would liketo be transferred to PCP Pratibha cottrell documented in this encounter Plan of Treatment Upcoming Encounters Date Type Department Care Team (Late st Contact Info) Description 07/26/2024 9:30 AM EDT Office Visit [facility] MED & PEDS [address] [place] [address] Bea Cottrell MD [address] [place] [address] documented as of this encounter Visit Diagnoses Not on filedocumented in this encounter Additional Health Concerns Assessment Noted Time PHQ-9 Depression Total Score: 7 05/29/19 10:45 AM EDT documented as of this encounter Care Teams Pododermatologist Relationship Specialty Start Date End Date Gordon Mills MD [address] [place] [address] PCP - General Internal Medicine 07/12/19 09/21/22 Bea Cottrell MD [address] [place] [address] PCP - General Family Medicine 09/22/22 documented as of this encounter
--- OUTSIDE RECORDS SUMMARY | 2024-05-28 16:48 | XMS_ITS | Encounter Summary ---
Author Organization [employer] Address [address] [place] [address] 7 [place] [address] Care Team Providers Care Moss Gatherer Name Role Phone Bea Lacey MD Primary Care Provider [phone] Reason for Visit * Reason Comments Med Refill Encounter Details Date Type Department Care Team ([facility] st Contact Info) Description 10/12/2022 Refill [facility] CH[facility] MED & PEDS [address] [place], [place] [phone] Gordon Mills MD [address] [place] [address] Chronic rhinitis Social History Tobacco Use Types [...] encounter Miscellaneous Notes * Telephone Encounter - Arielle Hall [place] - 10/21/2022 2:33 PM EDT SDOH referral for food insecurity/ transportation documented in this encounter Plan of Treatment Upcoming Encounters Date Type Department Care Team (Late st Contact Info) Description 07/26/2024 9:30 AM EDT Office Visit [facility] CHC MED & PEDS [address] [place] [address] Bea Lacey MD [address] [place] [address] documented as of this encounter Visit Diagnoses Diagnosis Chronic rhinitis documented in this encounter Additional Health Concerns Assessment Noted Time PHQ-9 Depression Total Score: 7 05/29/19 10:45 AM EDT documented as of this encounter Care Teams Moss Gatherer Relationship Specialty Start Date End Date Bea Lacey MD [address] [place] [address] PCP - General Family Medicine 09/22/22 documented as of this encounter
--- OUTSIDE RECORDS SUMMARY | 2024-05-28 16:48 | XMS_ITS | Encounter Summary ---
Author Organization [employer] Address 75 [facility] 7t [place] [address] Care Team Providers Care Mechanical Reliability Engineer Name Role Phone Bea Lacey MD Primary Care Provider [phone] Reason for Visit * Reason Onset Date Comments Glucose Monetor 10/08/2022 Encounter Details Date Type Department Care Team ([facility] st Contact Info) Description 10/08/2022 Telephone [facility] MED & PEDS 505 [facility] [place] [phone] Bea Lacey MD [address] [place] [address] Glucose Monetor Social History Tobacco Use Types Packs/Day Years [...] encounter Miscellaneous Notes * Telephone Encounter - Geovanna Millan RN - 10/12/2022 12:19 PM EDT Returned call to patient who is requesting a [employer] two Sensor. Pt states it will make it easier for him due to difficulty pinching. Pt [facility], pt provided number . Patient also stated that he wants a prescription for pseudoephedrine fornasal congestion and runny nose. This message will be forwarded to provider. * Telephone Encounter - Lexi Harperrero - 10/08/2022 8:21 AM EDT Tc from pt requesting a [employer] two Sensor. Pt states it will make it easier for him due todifficulty pinching. Pt would like [facility], pt provided number Please contact pt at [phone] documented in this encounter Plan of Treatment Upcoming Encounters Date Type Department Care Team (Late st Contact Info) Description 07/26/2024 9:30 AM EDT Office Visit [facility] MED & PEDS [address] [place] [address] Bea Lacey MD [address] [place] [address] documented as of this encounter Visit Diagnoses Not on filedocumented in this encounter Additional Health Concerns Assessment Noted Time PHQ-9 Depression Total Score: 7 05/29/19 10:45 AM EDT documented as of this encounter Care Teams Mechanical Reliability Engineer Relationship Specialty Start Date End Date Bea Lacey MD [address] [place] [address] PCP - General Family Medicine 09/22/22 documented as of this encounter
== END 2024-05-28 14:32 | disposition home or self-care (01) ==
PROVIDERS: PCP Student in an Organized Health Care Education/Training Program; Visit Provider Anesthesiology
DX: M53.3 Sacrococcygeal disorders, not elsewhere classified (principal); M46.1 Sacroiliitis, not elsewhere classified; M54.51 Vertebrogenic low back pain; G89.4 Chronic pain syndrome; Z45.1 Encounter for adjustment and management of infusion pump; E11.65 Type 2 diabetes mellitus with hyperglycemia
CPT/HCPCS: 62370; 99213

== ENCOUNTER → 2024-05-28 14:02 | Outpatient (BNVA) | payer MEDICARE, MEDICAID, SELFPAY | PROVIDERS: PCP Student in an Organized Health Care Education/Training Program; Visit Provider Anesthesiology | DX: M53.3 Sacrococcygeal disorders, not elsewhere classified (principal); M46.1 Sacroiliitis, not elsewhere classified; M54.51 Vertebrogenic low back pain; G89.4 Chronic pain syndrome; E11.65 Type 2 diabetes mellitus with hyperglycemia; Z45.1 Encounter for adjustment and management of infusion pump; Z96.82 Presence of neurostimulator; Z98.1 Arthrodesis status; Z79.891 Long term (current) use of opiate analgesic; Z79.899 Other long term (current) drug therapy | CPT/HCPCS: 62370; 99212 ==

== ENCOUNTER 2024-06-01 13:38 | Outpatient (REF) | payer MEDICARE, MEDICAID, SELFPAY ==
--- OUTSIDE RECORDS SUMMARY | 2024-06-01 13:56 | XMS_ITS | Referral Summary ---
Author Organization [facility] Address [address] [place] [address] Care Team Providers Care Bag Bleacher Name Role Phone Bea Lacey Primary Care Provider [phone] Allergies No known active allergies Medications buPROPion [...] I'd recommend he obtain clearance from his superintendent commissary given his history of multiple coronary events. I would also want to seek further clarification from his neurosurgeon as to what other clearance is being sought from the neurologist's standpoint. I will be reaching out to Dr. Payan's office. CAD in [place] artery 01/28/2022 Overview (12/30/2023): CABG with multiple [...] of Treatment Not on file Insurance MEDICARE [facility] Care Teams Bag Bleacher Relationship Specialty Start Date End Date Bea Lacey [address] [place], [place] [address] [address] PCP - General Family Medicine 12/26/23
--- OUTSIDE RECORDS SUMMARY | 2024-06-01 13:56 | XMS_ITS | Clinical Summary ---
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 Benign hypertension 12/30/2023 BPH (benign prostatic hyperplasia) 12/30/2023 Bilateral cataracts 12/30/2023 Bilateral tinnitus 12/30/2023 CVA (cerebral vascular accident) ([facility] V24, C [place]/[facility] V28) 12/30/2023 Heart failure with normal ej ection fraction ([facility] V24, [facility] V28) 12/30/2023 Hyperlipidemia 12/30/2023 History of parathyroidectomy 12/30/2023 CKD (chronic kidney disease) 12/30/2023 Type 2 diabetes mellitus wit h hyperglycemia ([facility] V24, [facility] V28) 12/30/2023 CAD in [place] artery 12/30/2023 Erectile dysfunction due to diseases [...] Insurance MEDICARE MEDICAID - [place] Care Teams Sparmaker Relationship Specialty Start Date End Date Bea Lacey MD [address] [place] [address] PCP - General 04/04/23
--- OUTSIDE RECORDS SUMMARY | 2024-06-01 13:56 | XMS_ITS | Clinical Summary ---
Author Organization [facility] Address [address] [place] [phone] Phone Care Team Providers Care Bail Attacher Name Role Phone Lula Lacey MD Primary Care Provider [phone] Allergies Active Allergy Reactions Criticality Noted Date [...] disease 07/01/2020 Abdominal aortic aneurysm 11/02/2018 Immunizations Immunization Administration Dates Next Due Hepatitis B 10/08/2016,06/15/2016,02/12/2016 [...] Office Visit [facility] [address] [address] Get Galo MD [address] [address] Health Maintenance Due Date Last [...] age to complete this topic Pneumococcal Vaccine: 50+ Years Completed 09/15/2020, 10/26/2018, [...] ug/dl RTAMA 09/21/2018 us Rtama Conversion LAB [id number] LICITED RESULTS Final Result RTAMA from Last 3 Months or Most Recently Relevant to Health Maintenance Insurance Medicare Medicaid [place] Medicare Medicaid [place] Care Teams Bail Attacher Relationship Specialty Start Date End Date Lula Lacey MD [address] [place] [address] PCP - General Internal Medicine 01/25/24
--- OUTSIDE RECORDS SUMMARY | 2024-06-01 13:56 | XMS_ITS | Continuity of Care Document ---
Author Organization [facility] Address [address] [place], [place] [address]jessie wiseman, [address] [place] [address]- Care Team Providers Care Aviation Manager Name Role Phone Bea Lacey MD Primary Care Physician Encounter [facility] ACCT R [id number] Date(s): 05/22/24 - 05/29/24 [facility] [address] [place] [address] Drive [address] [place], [place] [address] Attending Physician: Darci Payan MD Encounter Type: Office Visit Allergies, Adverse Reactions, Alerts No Known Medication Allergies Substance Criticality Severity Reaction Reaction Severity Status Grass Unable to assess criticality Intermittent watery eyes/runny nose Active Immunizations Given and Recorded Vaccine Date Status Refusal Reason [id number] 12y+ bivalent booster vax 12/08/21 Recorded SARS-CoV-2 (COVID-19) mRNA BNT-162b2 vac 12/24/20 Recorded SARS-CoV-2 (COVID-19) mRNA-1273 vaccine 05/27/20 R ecorded SARS-CoV-2 (COVID-19) mRNA-1273 vaccine 04/29/20 R ecorded pneumococcal 23-valent vaccine 04/26/12 Given influenza virus vaccine, inactivated 04/26/12 Give n Pneumococcal Vaccine (oldterm) 1 01/01/06 Given 1Result Comment: lot # [id number] EXP 08/20/06 PT INFO 09/04/04 Medications acetaminophen 325 mg oral tablet 975 mg, By Mouth, Every 6 hours, Refills 0, Maintenance, 05/11/24 9:47:00 AM EDT, Partial fill upon patient request if the prescription is for a schedule II opioid drug. Start Date: 05/11/24 Status: Ordered Repeat number: 1 baclofen 20 mg oral tablet 20 mg, 1, tablet, By Mouth, 3 times a day, PRN, Muscle Spasms/Pain Start Date: 04/07/20 Status: Ordered Repeat number: 1 buPROPion 300 mg/24 hours (XL) oral tablet, extended release 1 tablet = 300 mg, By Mouth, Daily in AM, 0 Refills, Maintenance, 08/04/23 10:14:00 AM EDT, ER Tablet Start Date: 08/04/23 Status: Ordered Repeat number: 1 calcium (as carbonate)-vitamin D 500 mg-100 intl units oral tablet, chewable 1 tablet, By Mouth, 2 times a day, 0 Refills, Maintenance, 04/26/22 8:34:00 AM EST, Chew Tablet Start Date: 04/26/22 Status: Ordered Repeat number: 1 cetirizine 10 mg oral tablet 1 tablet = 10 mg, By Mouth, Daily before lunch, 0 Refills, Maintenance, 03/10/22 12:31:00 PM EST, Tablet Start Date: 03/10/22 Status: Ordered Repeat number: 1 clonazePAM 0.5 mg oral [...] Date: 10/05/18 Status: Ordered Repeat number: 1 dapagliflozin 10 mg oral tablet 1 tablet = 10 mg, By Mouth, Daily, # 30 tablet, 11 Refills, Maintenance, 12/13/23 12:27:00 PM EDT, [facility], Partial fill upon patient request if the prescription is for a schedule II opioid drug., 172.72, cm, 12/12/23 13:09:00 EDT, Height, 97.6, kg, 12/08/23 15:42:00 EDT, Dry Weight Start Date: 12/13/23 Status: Ordered Quantity: 30.0 Unit: tablet Repeat number: 12 docusate sodium 100 mg oral capsule 100 mg, 1, capsule, By Mouth, 2 times a day, # 28 capsule, Refills 0, Tot. Refills 0, Maintenance, 05/11/24 9:46:00 AM EDT, Route to Pharmacy Electronically, [facility], Partial fill upon patient request if the prescription is for a schedule II opioid drug., 172.72, cm, 05/03/24 8:19:00 EDT, Height, 89.9, kg, 05/10/24 9:18:00 EDT, Dry Weight Start Date: 05/11/24 Stop Date: 05/25/24 Status: Ordered Quantity: 28.0 Unit: capsule Repeat number: 1 eplerenone 25 mg oral tablet See Instructions, TAKE ONE TABLET DAILY AT NOON, # 90 tablet, 3 Refills, Maintenance, 02/03/24 8:19:00 AM EST, [facility], 172.72, cm, 01/30/24 9:29:00 EST, Height, 90, kg, 01/17/24 14:31:00 EST, Dry Weight Start Date: 02/03/24 Status: Ordered Quantity: 90.0 Unit: tablet Repeat number: 1 esomeprazole 40 mg oral enteric coated capsule 1 capsule = 40 mg, By Mouth, 2 times a day Start Date: 12/28/22 Status: Ordered Repeat number: 1 famotidine 40 mg oral tablet 1 tablet = 40 mg, By Mouth, Daily at bedtime, 0 Refills, Maintenance, 03/10/22 12:27:00 PM EST, Tablet Start Date: 03/10/22 Status: Ordered Repeat number: 1 fluticasone 50 mcg/inh nasal spray 1 sprays = 50 mcg, Nares, Both, 2 times a day, 0 Refills, 02/07/24 12:53:00 PM EST Start Date: 02/07/24 Status: Ordered Repeat number: 1 Freestyle Lite Test Strips 3 times a day, Maintenance, 04/07/20 7:08:00 PM EST, Supply Start Date: 04/07/20 Status: Ordered Repeat number: 1 hydrOXYzine pamoate 25 mg oral capsule 1 capsule = 25 mg, By Mouth, 2 times a day Start Date: 04/07/20 Status: Ordered Repeat number: 1 isosorbide mononitrate 60 mg oral tablet, extended release 2 tablet, By Mouth, Daily in AM, # 180 tablet, 3 Refills, Maintenance, 05/01/24 10:25:00 AM EDT, [facility], 172, cm, 05/01/24 8:22:00 EDT, Height, 88.5, kg, 04/05/24 8:14:00 EST,Dry Weight Start Date: 05/01/24 Status: Ordered Quantity: 180.0 Unit: tablet Repeat number: 1 lisinopril 10 mg oral tablet 10 mg, 1, tablet, By Mouth, Daily, # 90 tablet, Refills 4, Tot. Refills 4, Maintenance, 12/12/23 2:14:00 PM EDT, Route to Pharmacy Electronically, [facility], Partial fill upon patient request if the prescription is for a schedule II opioid drug., 172.72, cm, 12/12/23 13:09:00 EDT, Height, 97.6, kg, 12/08/23 15:42:00 EDT, Dry Weight Start Date: 12/12/23 Status: Ordered Quantity: 90.0 Unit: tablet Repeat number: 5 Melatonin 5 mg oral tablet 2 tablets, By Mouth, Daily at bedtime, uses melatonin gummie in addition to these tabs qHS, 0 Refills, 02/07/24 12:52:00 PM EST Start Date: 02/07/24 Status: Ordered Repeat number: 1 mirtazapine 7.5 mg oral tablet 1 tablet = 7.5 mg, By Mouth, Daily at bedtime, 0 Refills, Maintenance, 04/21/21 3:01:00 PM EST Start Date: 04/21/21 Status: Ordered Repeat number: 1 Miscellaneous Rx bupivacaine-medication in pt.'s pain pump, 0 Refills, Maintenance, bupivacaine medication is in pt.'s pain pump., 05/02/24 10:29:00 AM EDT Start Date: 05/02/24 Status: Ordered Repeat number: 1 multivitamin Vitamin B Complex with C oral tablet, extended release 0.5 tablet, By Mouth, 2 times a day, 0 Refills, Maintenance, 08/04/23 9:42:00 AM EDT, ER Tablet Start Date: 08/04/23 Status: Ordered Repeat number: 1 Narcan 4 mg/0.1 mL nasal spray 2 each, 0 Refill(s), FOR SUSPECTED OPIOID OVERDOSE. SPRAY 0.1mL IN ONE NOSTRIL. REPEAT IN ALTERNATENOSTRIL EVERY 2-3 MINUTES IF NEEDED. SEEK MEDICAL ATTENTION IMMEDIATELY EVEN IF PT RESPONDS., 0 Refills, 02/07/24 12:52:00 PM EST, Partial fill upon patient request if the prescription is for a schedule II opioid drug. Start Date: 02/07/24 Status: Ordered Repeat number: 1 nitroglycerin 0.4 mg sublingual tablet = 0.4 mg, Sublingual, Every 5 minutes, PRN Chest Pain, as needed not to exceed 3 doses/15 min--if pain persists, seek medical attention, # 100 tablet, 3 Refills, Maintenance, 11/02/22 4:26:00 PM EDT, Tablet, [facility], Partial fill upon patient request if the prescription is for a schedule II opioid drug., 172.71, cm, 11/02/22 15:12:00 EDT, Height, 106.2, kg, 03/10/22 16:44:00 EST, Dry Weight Start Date: 11/02/22 Status: Ordered Quantity: 100.0 Unit: tablet Repeat number: 4 pilocarpine 5 mg oral tablet 0 Refills, Maintenance, 04/17/24 11:27:00 AM EST, Partial fill upon patient request if the prescription is for a schedule II opioid drug. Start Date: 04/17/24 Status: Ordered Repeat number: 1 prazosin 5 mg oral capsule 5 mg, 1, capsule, By Mouth, Daily at bedtime, Refills 0, Maintenance, 04/21/21 3:01:00 PM EST Start Date: 04/21/21 Status: Ordered Repeat number: 1 primidone 250 mg oral tablet 500 mg, 2, tablet, By Mouth, 2 times a day, Refills 0, Maintenance, 03/10/22 12:29:00 PM EST Start Date: 03/10/22 Status: Ordered Repeat number: 1 Relistor 150 mg oral tablet 3 tablet = 450 mg, By Mouth, Daily in AM, 0 Refills, 02/07/24 12:52:00 PM EST Start Date: 02/07/24 Status: Ordered Repeat number: 1 rosuvastatin 40 mg oral tablet 1 tablet = 40 mg, By Mouth, Daily at bedtime, 0 Refills, 01/06/24 1:16:00 PM EST Start Date: 01/06/24 Status: Ordered Repeat number: 1 sertraline 100 mg oral tablet 1.5 tablet = 150 mg, By Mouth, Daily at bedtime, 0 Refills, 02/07/24 12:52:00 PM EST Start Date: 02/07/24 Status: Ordered Repeat number: 1 sucralfate 1 gm oral tablet 1 Gm, 1, tablet, By Mouth, 2 times a day, on an empty stomach, Refills 0, 01/06/24 1:16:00 PM EST Start Date: 01/06/24 Status: Ordered Repeat number: 1 SunMark ClearLax oral powder for reconstitution = 17 Gm, By Mouth, Daily, dissolve in water or juice Start Date: 04/07/20 Status: Ordered Repeat number: 1 torsemide 20 mg oral tablet 1 tablet, By Mouth, Daily in AM, # 90 tablet, 3 Refills, Maintenance, 03/02/24 8:06:00 AM EST, [facility], 172.72, cm, 02/07/24 12:51:00 EST, Height, 90, kg, 01/17/24 14:31:00 EST, Dry Weight Start Date: 03/02/24 Status: Ordered Quantity: 90.0 Unit: tablet Repeat number: 1 TRUEplus 3.75 g oral tablet, chewable 1 tablet = 3.75 Gm, Chew, PRN as needed for symptomatic low blood sugar, 0 Refills, 01/06/24 1:17:00 PM EST Start Date: 01/06/24 Status: Ordered Repeat number: 1 Vitamin D3 oral tablet 1 tablet = 10 mcg, By Mouth, Daily, # 30 tablet, 0 Refills, Maintenance, 05/08/24 2:05:00 PM EDT, Tablet, Partial fill upon patient request if the prescription is for a schedule II opioid drug. Start Date: 05/08/24 Status: Ordered Quantity: 30.0 Unit: tablet Repeat number: 1 Problem List Condition Confirmation Course Effective Dates [...] with chronic post-traumatic stress disorder Confirmed Active Obstructive sleep apnea Confirmed Active Old myocardial infarct X9 Confirmed Active S/P placement of hypoglossal nerve stimulator Confirmed Active PVD (peripheral vascular disease) Confirmed Active Restless leg syndrome Confirmed Active Right heart failure Confirmed Active 12 afib ablations 2CABG with multiple stents in 1988 3history of suicidal ideation Vital Signs Most recent to oldest [Reference Range]: 1 Height 172.72 cm (05/22/24 9:10 AM) Weight 88.5 kg (05/22/24 9:10 AM) Body Mass Index [18.5-24.99 kg/m2] 29.67 kg/m2 *H* (05/22/24 9:10 AM) Dry Weight 88.5 kg (05/22/24 9:10 AM) Weight Obtained Via Patient/family state d (05/22/24 9:10 AM) Dry Weight Obtained Via Patient/family s tated (05/22/24 9:10 AM) Social History Social History Type Response Smoking Status Former smoker; Tobac co user in household: No; Other: pt states he quit smoking 1988; entered on: 07/14/15 Sex Sex Representation Male (finding) Patient Care team information Care Team Personnel Name: Darci Ayala RN Position: [facility] ED RN W/OE and Tasks Member Role: Primary Care Nurse Name: Niharika Reza RN Position: [facility] SN RN Member Role: Primary Care Nurse Name: Veronica Kapoor RN Position: [facility] RN Member Role: Primary Care Nurse Name: Paula Garcia RN Position: [facility] RN Member Role: Primary Care Nurse Name: Jocelyn Villanueva RN Position: [facility] SN RN Member Role: Primary Care Nurse Name: Roseann Sullivan RN Position: [facility] RN Member Role: Primary Care Nurse Name: Casimiro Alarcon RN Position: [facility] RN Member Role: Primary Care Nurse Name: Brenda Orr RN Position: [facility] RN Member Role: Primary Care Nurse Name: Chasidy Woodard RN Position: [facility] RN Member Role: Primary Care Nurse Name: Annalisa Aguilar RN Position: [facility] RN Member Role: Primary Care Nurse Name: Heavenly Sen RN Position: [facility] Hospital Telephone Operator Chief Member Role: Primary Care Nurse Name: Nasima Garcia NP Position: Reference Physician Member Role: Primary Care Nurse Address: [address] [address]- [place] Tele[employer]: Name: Bea Lacey MD Position: [facility] Outreach Member Role: PCP Address: [address] [place] [address]- [place] Tele[employer]: Name: Itzel Tirado MD Position: [facility] Cardiology MD Member Role: Lifetime Consulting Physician Address: [address] [facility] [address] [place] [address]- [place] Telecom: Name: Elena Pyle RN Position: [facility] RN Member Role: Primary Care Nurse Name: Lalito Wheeler RN Position: [facility] RN Member Role: Primary Care Nurse Name: Beatriz Lawrence RN Position: [facility] RN Member Role: Primary Care Nurse Name: Dorothea Fong RN Position: [facility] RN Member Role: Primary Care Nurse Name: Get Galo MD Position: [facility] Renal MD Member Role: Lifetime Consulting Physician Address: [address] [place] [address] [address] [facility] [place] [address]- Telecom: Name: Lucy Bradford RN Position: [facility] RN Member Role: Primary Care Nurse Name: Familia Rivas NP Position: Reference Physician Member Role: Primary Care Nurse Address: [address] [place] [address]- [place] Tele[employer]: Care Team Related Persons Name: JOSE ALBERTO VARGAS Insurance Providers Guarantor name: SHERLY VARGAS Health Plan Information #: [address] [facility] Member Number: [id number] Policy Number: NA Group Number: NA Health Plan Information #: 1 Payer: MEDICARE PART B OUTPT Member Number: [id number] Policy Number: NA Group Number: NA
--- OUTSIDE RECORDS SUMMARY | 2024-06-01 13:56 | XMS_ITS | Clinical Summary ---
Author Organization [facility] Address [address] [place] [address] Care Team Providers Care Crushed Stone Grader Name Role Phone Bea Lacey Primary Care Provider [phone] Allergies No known active allergies Medications buPROPion [...] I'd recommend he obtain clearance from his [facility] given his history of multiple coronary events. I would also want to seek further clarification from his neurosurgeon as to what other clearance is being sought from the neurologist's standpoint. I will be reaching out to Dr. Payan's office. CAD in [place] artery 01/28/2022 Overview (12/30/2023): CABG with multiple [...] , 12/03/2021, Additional history exists Insurance MEDICARE [facility] Care Teams Crushed Stone Grader Relationship Specialty Start Date End Date DeepthiBea [address] [place] [address] [place] [address] PCP - General Family Medicine 12/26/23
[2024-06-01 14:17] LABS: MANUAL DIFF FLAG NO
[2024-06-01 14:29] LABS: Basophils Percent Auto 0.5 % (0-2); Eosinophils Absolute Auto 0.2 X10*3/uL (0.0-0.4); Eosinophils Percent Auto 2.8 % (0-4); Hematocrit 41.9 % (42.0-52.0); Hemoglobin 13.1 g/dl (14.0-18.0); Imm Gran Abs Auto 0.02 X10*3/uL (0.00-0.03); Imm Gran Pct Auto 0.3 % (0.0-0.4); Lymphocytes Absolute Auto 2.1 X10*3/uL (1.2-4.9); Lymphocytes Percent Auto 27.2 % (20-40); Mean Corpuscular HGB Conc 31.3 g/dl (31.0-36.0); Mean Corpuscular Hemoglobin 26.3 pg (27.0-33.0); Mean Corpuscular Volume 84.1 fL (80.0-98.0); Mean Platelet Volume 11.3 fL (9.4-12.4); Monocytes Absolute Auto 0.6 X10*3/uL (0.1-1.2); Monocytes Percent Auto 8.2 % (2-11); Neutrophils Absolute Auto 4.6 x10*3/uL (2.0-8.3); Platelet Count 212 X10*3/uL (160-400); Red Blood Count 4.98 X10*6/uL (4.60-5.80); Red Cell Distribution Width 17.1 % (11.0-16.0); White Blood Count 7.6 X10*3/uL (4.8-10.8)
[2024-06-01 14:50] LABS: Anion Gap 13 (12-20); Blood Urea Nitrogen 20 mg/dL (9-16); Calcium 8.9 mg/dL (8.4-10.2); Carbon Dioxide 27 mmol/L (22-29); Chloride 104 mmol/L (96-108); Estimated Glomerular Filt Rate > 60; Glucose Random 169 mg/dL (60-115); Sodium 140 mmol/L (135-145)
[2024-06-01 15:09] LABS: TSH reflex Free T4 1.48 uIU/mL (0.32-4.0)
== END 2024-06-01 13:39 | disposition home or self-care (01) ==
LOC: HO.CHCLDS 13:38
PROVIDERS: Visit Provider Internal Medicine
DX: E11.59 Type 2 diabetes mellitus with other circulatory complications (principal)
CPT/HCPCS: 36415; 80048; 84443; 85025

== ENCOUNTER 2024-06-14 12:45 | Outpatient (AMB) | payer MEDICARE, MEDICAID, SELFPAY ==
--- NOTE | 2024-06-14 12:52 | A.OFFVIS_ITS ---
Vital Signs 06/14/24 13:52 Height 5 ft 8 in Weight 198 lb 4 oz BMI 30.1 BP 130/78 Blood Pressure Location Lt brachial Position Sitting Pulse 69 Pulse Source Pulse Oximeter Pulse Oximetry (%) 97 Oxygen Delivery Method Room Air Intake Visit Reasons: ITDD PUMP REFILL Intake Note: Pain today 09/30 Hardware Installer Required: No Accompanied by: Self / Same As Patient Allergies grass pollen Allergy (Mild, Verified 06/14/24 13:52) unknown tree and shrub pollen Allergy (Mild, Verified 06/14/24 13:52) itchy eyes, sneeze, runny nose No Known Drug Allergies Allergy (Unknown, Verified 06/14/24 13:52) none plastic tape Allergy (Unknown, Uncoded 05/28/24 14:13) irritation HPI Comments Details: Malik is in my office today to refill and adjust his pump. He reports increase level of pain. He also reports significant numbness in the abdomen when his variable dose comes in at 08:00 in the morning. He also started to complain on nausea and vomiting. I doubt it is from the pain pump, he is on current doses and concentrations for the very long period of time and he never complained on nausea and vomiting. I recommended him to see human resources partner to rule out issues from the gastrointestinal tract, if there is nothing in gastrointestinal tract the nausea and vomiting is most likely related to neurosurgical procedure on his brain. I recommended him also to report this complication to neurosurgical team. The pump was refilled as below, he has an adequate pain control I recommend him to come here in 1 week and make yet another pump adjustment. His next pump refill tentatively scheduled in 90 days however if the patient will come often for pump refill we would need to adjust the concentration of his medications as well as adjust the doses. Prior: History of bilateral paintech sacroiliac joint stabilization with fusion. He had significant improvement however he fell in his kitchen and started to experience lot of pain again. He was sent for the x-ray of the pelvis and it appears to be that although both implantation elements are in sacroiliac joints 1 of them got shifted vertical it to the upper portion of the joint and now has a lesser chance to provide enough of the space to form the sacroiliac bridge. Most likely that is why patient started to experience pain again. We decided to treat his pain with addition of the opioids into intrathecal pain pump. For his next pump refill I will fill it up with hydromorphone 150 micro g per mL and bupivacaine 8 milligrams/mL. I will continue to increase concentration of hydromorphone until patient's satisfaction. To temporize his pain level now I will prescribe him short course of Percocet see as below. He is interested in sacroiliac joint fusion now performed by the surgeon with surgical screws. We will find out where this procedure can not be performed and we will refer patient there. He also would like to call [employer] patient financial representative and ask him to increase stimulation levels on the machine Prior: This patient is very unfortunate gentleman who is suffering from multiple pain generators. He received multiple forms of treatment to concur the existing pain generators pain. He tried multiple sessions of physical therapy in the past and he continues from time to time to return to his home exercise program to help his pain. He tried multiple medications including NSAIDs muscle relaxants and opioids. NSAIDs give him severe side effects. He is very much concerned about addictive properties of opioids. He reports muscle relaxants help his pain minimally if any. He in the past was injected with multiple procedures including medial branch blocks, radiofrequency ablations, facet joint injections, and eventually he was not very satisfied with results of this injections. He was implanted with [employer] spinal cord stimulator which he reports helped his pain radiating into the bilateral lower extremities. He also reported axial back pain aggravated with sitting and flexing forward and on the MRI he was discovered with Modic type changes in the lumbar spine. Intraseptal procedure was performed with good results for pain aggravated with prolonged sitting however pain which is lower than the lumbar spine in the projection of his pelvis actually getting worse background of alleviated lumbar spine pain. To treat this condition he was implanted with intrathecal pain pump however the intrathecal pain pump was not very instrumental to alleviate his pain. He still receives intrathecal pain pump bupivacaine only however reports significant and advanced pain in the projection of the bilateral sacroiliac joints. He had MRI of the lumbar spine which did not demonstrate any red flags and he did have abdominal and pelvic CT scan which did not demonstrate in pelvis any abnormalities which could be suspected as the pain generators related to sacroiliac joint, sacral bones or iliac bones. 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, lumbar region PVD (peripheral vascular disease) Mood disorder On beta ruddy at home Benign essential tremor CVA (cerebral vascular accident) IDDM (insulin dependent diabetes mellitus) Sleep apnea Chronic renal insufficiency Myocardial infarction CHF (congestive heart failure) CAD (coronary artery disease) AAA (abdominal aortic aneurysm) Arrhythmia On anticoagulant therapy Elevated cholesterol HTN (hypertension) History of ischemic cardiomyopathy 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 Surgical History (Updated 05/21/24 @ 10:18 by Niki Ortiz, RN) History of surgery History of surgery (~2023) Hx of brain surgery (05/10/24) Hx of shoulder surgery History of laparoscopic cholecystectomy (12/08/22) History of surgery History of surgery History of PTCA Hx of parathyroidectomy Hx of CABG History of hernia repair Hx of gastric bypass Hx of endoscopy History of colonoscopy Family History Father Hx of congenital heart disease Mother Hx of heat stroke Social History (Updated 05/21/24 @ 09:54 by Niki Ortiz, CRISTELA) Household Members: None Housing: Apartment Are you a primary career and transition teacher to a significant other at home: No Do you presently have visiting nurse or other home services: Yes ([employer] 2 hours per week) Alcohol intake: current Alcohol intake frequency: does not drink Comment: counts correct Patient Tobacco Use Status: Former Tobacco user Tobacco use type: Cigarette Second Hand Smoke Exposure: No Review of Systems Const All systems reviewed & are unremarkable except as noted in HPI and below ENT Reports Normal hearing present Neuro Reports Normal hearing present and Denies Abnormal speech present Physical Exam Vital Signs: Last Vital Signs Pulse 69 06/14/24 13:52 BP 130/78 06/14/24 13:52 Pulse Ox 97 06/14/24 13:52 Oxygen Delivery Method Room Air 06/14/24 13:52 BMI result Body Mass Index 30.1 Const General: cooperative, no acute distress, alert and well groomed Orientation/consciousness: patient oriented x3 HEENT Head: Yes normocephalic and Yes atraumatic Ears: hearing grossly normal bilaterally Eyes General: appearance normal, both eyes and all related structures Eyelids: Yes eyelids normal Pupils: Equal, round and reactive pupils present EOM: EOMs intact bilaterally Neck Neck: Yes normal visual inspection and Yes no JVD Resp Effort & Inspection: normal respiratory effort, able to speak in complete sentences and no audible wheezes Cardio Jugular venous distension: no JVD Back/Spine/Pelvis Other: Tenderness of palpation paraspinal spinal region in the entire spine cervical thoracic and lumbar. SLR is negative with foot dorsiflexion. Flexing forward aggravates the pain. Flexing backwards does not change the pain. James test, Gaenslen test, pelvic compression test, pelvic destruction test, positive on the left as well as on the right. Neuro General: patient oriented x3, moves all extremities and Normal light touch and pain sensation Cranial nerves: Yes Equal, round and reactive pupils present and Yes Normal hearing present Cognition (Neuro): normal cognition Speech: No Abnormal speech present Assessment & Plan Assessment & Plan (1) Chronic left sacroiliac joint pain: Code(s): M53.3 - Sacrococcygeal disorders, not elsewhere classified; G89.29 - Other chronic pain Category: Medical (2) Sacroiliitis: Code(s): M46.1 - Sacroiliitis, not elsewhere classified Category: Medical (3) Vertebrogenic low back pain: Code(s): M54.51 - Vertebrogenic low back pain Category: Medical (4) Chronic pain syndrome: Code(s): G89.4 - Chronic pain syndrome Category: Medical (5) Poorly controlled type 2 diabetes mellitus: Code(s): E11.65 - Type 2 diabetes mellitus with hyperglycemia Category: Medical Plan: Patient reports numbness of the abdomen as a side effect of the administration o f the variable dose. I explained to him that this is a normal effect of the bupivacaine medication. At the same time he reports nausea and vomiting. This side effects started few weeks ago and they are unlikely from the pain pump. Neither doses nor concentrations of medications in his pain pump were changed at that time. Possibility exists that nausea and vomiting are related to the neurosurgical procedure he had on his brain to treat his tumor. Gastroenterology consult in neurosurgical consult recommended to the patient discussed as above. Plan Intrathecal pump refill . HE PATIENT CAME TODAY in the office FOR THE CHANGE OF THE MEDICATION IN her PAIN PUMP. The name and date of were verified and informed consent was obtained for the procedure. ?The pump was interrogated and the residual amount of fluid was found to be 16.8 mL. He WAS POSITIONED left lateral decubitus on the bed AND THE AREA OF THE INTRATHECAL PUMP on the right flank WAS PREPPED WITH CHLORAPREP. The fenestrated drape was sterilely applied over the area of the pump. Sterile gloves were worn and of the aspiration system was assembled containing 2 in 22 gauge noncoring needle, the needle was connected to extension tubing which was connected to the 20 cc sterile syringe. The pain pump was palpated under the skin in the patient's right upper flank under the right rib. The needle was inserted through the skin and the central plug of the pain pump and fluid was aspirated. The clear fluid was going into the syringe the total amount of the fluid was 18.4 ml. After that a new batch? of medication was obtained which was containing bupivacaine mg per ml. The admixture was made in two 20 cc syringe prepared by [facility] compounding pharmacy. The syringe was connected to the bacterial filter, and then connected to the extension tubing. The new medication comprised of hydromorphone 0.15 milligrams/mL, bupivacaine 8 milligrams/mL in preservative- free normal saline total of 40 mL. Flex rate of the administration of hydromorphone was left to 22.6 micro g in 15 minutes, continuous dose was increased to 40 mcg per day and the patient is receiving flex dose 8 a.m. Coding Level of Care Code Est Pt Level 3 (44749) Procedure Only Diagnoses Chronic left sacroiliac joint pain M53.3; G89.29 Sacroiliitis M46.1 Vertebrogenic low back pain M54.51 Chronic pain syndrome G89.4 Poorly controlled type 2 diabetes mellitus E11.65
[2024-06-14 13:52] VITALS: BP 130/78; PULSE 69; O2SAT 97; BMI 30.1
--- OUTSIDE RECORDS SUMMARY | 2024-06-14 15:00 | XMS_ITS | Encounter Summary ---
Author Organization [employer] Address [address] [facility] [address]t [place] [address] Care Team Providers Care Fitness Trainer Name Role Phone Bea Lacey MD Primary Care Provider [phone] Reason for Visit * Reason Comments Med Refill Encounter Details Date Type Department Care Team ([facility] st Contact Info) Description 02/06/2024 Refill [facility] DIABETES/NUTRITION [address] [place] [address] Bea Lacey MD [address] [place] [address] Type 2 diabetes mellitus with hyperglycemia, without long-term current use of insulin ([facility]) Social History Tobacco Use Types [...] Care Team (Late st Contact Info) Description 06/15/2024 2:00 PM EDT Office Visit [facility] ADULT DENTAL [address] [place] [address] Liliana Stephen 06/20/2024 8:45 AM EDT Telemedicine [facility] MED & PEDS [address] [place] [address] Bea Lacey MD [address] [place] [address] 07/26/2024 9:30 AM EDT Office Visit [facility] [address] [place] [address] Bea Lacey MD [address] [place] [address] documented as of this encounter Visit Diagnoses Diagnosis Type 2 diabetes mellitus with hyperglycemia, without long-term current use of insulin ([facility]) documented in this encounter Additional Health Concerns Assessment Noted Time PHQ-9 Depression Total Score: 20 024 10:22 AM EDT documented as of this encounter Care Teams Fitness Trainer Relationship Specialty Start Date End Date Bea Lacey MD [address] [place] [address] PCP - General Family Medicine 09/22/22 documented as of this encounter
--- OUTSIDE RECORDS SUMMARY | 2024-06-14 15:00 | XMS_ITS | Encounter Summary ---
Author Organization [employer] Address [address] [place] [address] 7t [place] [address] Care Team Providers Care Shop Teacher Name Role Phone Bea Lacey MD Primary Care Provider [phone] Reason for Visit * Reason Comments Med Refill Encounter Details Date Type Department Care Team ([facility] Contact Info) Description 09/30/2022 Refill [facility] MED & PEDS [address] [place], [place] [phone] Gordon Mills MD [address] [place] [address] Chronic rhinitis Social History Tobacco Use Types [...] Upcoming Encounters Date Type Department Care Team ([facility] Contact Info) Description 06/15/2024 2:00 PM EDT Office Visit [facility] ADULT DENTAL [address] [place], [place] [phone] Liliana Stephen 06/20/2024 8:45 AM EDT Telemedicine [facility] MED & PED[facility] [address] [place] [address] Bea Lacey MD [address] [place] [address] 07/26/2024 9:30 AM EDT Office Visit [facility] MED [facility] PED[facility] [address] [place] [address] Bea Lacey MD [address] [place] [address] documented as of this encounter Visit Diagnoses Diagnosis Chronic rhinitis documented in this encounter Additional Health Concerns Assessment Noted Time PHQ-9 Depression Total Score: 7 05/29/19 10:45 AM EDT documented as of this encounter Care Teams Shop Teacher Relationship Specialty Start Date End Date Bea Lacey MD [address] [place] [id number] PCP - General Family Medicine 09/22/22 documented as of this encounter
--- OUTSIDE RECORDS SUMMARY | 2024-06-14 15:00 | XMS_ITS | Encounter Summary ---
Author Organization [employer] Address [address] [facility] 7t [place] [address] Care Team Providers Care Molder Automobile Carpets Name Role Phone Bea Lacey MD Primary Care Provider [phone] Reason for Visit * Reason Onset Date Comments Results 11/16/2023 Encounter Details Date Type Department Care Team ([facility] st Contact Info) Description 11/16/2023 Telephone [facility] MEDICINE [address] [place], [place] [phone] Bea Lacey MD [address] [place], [place] [phone] Results Social History Tobacco Use Types Packs/Day [...] PM EDT Tc from pt returning call. Joint Yarner advise previous message. Pt verbalizes understanding. * Telephone Encounter - Bea Lacey MD - 11/16/2023 2:42 PM EDT Labs are much improved from before Especially Liver functions * Telephone Encounter - Jf Goznalez RN - 11/16/2023 12:16 PM EDT Pt requesting lab results from 11/09. Please review and advise nurse's of results/plan. Thanks. * Telephone Encounter - Graham Hall - 11/16/2023 11:24 AM EDT TC from pt requesting call back regarding Results. Type of results: Labs Date when done: 11/10/23 Facility: [facility] Labs documented in this encounter Plan of Treatment Upcoming Encounters Date Type Department Care Team (Late st Contact Info) Description 06/15/2024 2:00 PM EDT Office Visit [facility] AD[facility] [address] [place] [address] Liliana Stephen 06/20/2024 8:45 AM EDT Telemedicine [facility] MED [facility] PEDS [address] [place] [address] Bea Lacey MD [address] [place] [address] 07/26/2024 9:30 AM EDT Office Visit [facility] PED[facility] [address] [place] [address] Bea Lacey MD [address] [place] [address] documented as of this encounter Visit Diagnoses Not on filedocumented in this encounter Additional Health Concerns Assessment Noted Time PHQ-9 Depression Total Score: 20 024 10:22 AM EDT documented as of this encounter Care Teams Molder Automobile Carpets Relationship Specialty Start Date End Date Bea Lacey MD [address] [place] [id number] PCP - General Family Medicine 09/22/22 documented as of this encounter
--- OUTSIDE RECORDS SUMMARY | 2024-06-14 15:00 | XMS_ITS | Encounter Summary ---
Author Organization [employer] Address [address] [facility] 7t [place] [address] Care Team Providers Care Technician Submarine Cable Equipment Name Role Phone Bea Lacey MD Primary Care Provider [phone] Reason for Visit * Reason Onset Date Comments Med Refill 10/06/2023 Encounter Details Date Type Department Care Team ([facility] st Contact Info) Description 10/06/2023 Telephone [facility] MEDICINE [address] [place], [place] [phone] Bea Lacey MD [address] [place], [place] [phone] Med Refill Social History Tobacco Use Types [...] X 4 MM To be sent to: [facility] documented in this encounter Plan of Treatment Upcoming Encounters Date Type Department Care Team (Late st Contact Info) Description 06/15/2024 2:00 PM EDT Office Visit [facility] ADULT D[facility]AL [address] [place] [address] Liliana Stephen 06/20/2024 8:45 AM EDT Telemedicine [facility] MED & PEDS [address] [place] [address] Bea Lacey MD [address] [place] [address] 07/26/2024 9:30 AM EDT Office Visit [facility] MED & PEDS [address] [place] [address] Bea Lacey MD [address] [place] [address] documented as of this encounter Visit Diagnoses Not on filedocumented in this encounter Additional Health Concerns Assessment Noted Time PHQ-9 Depression Total Score: 20 024 10:22 AM EDT documented as of this encounter Care Teams Technician Submarine Cable Equipment Relationship Specialty Start Date End Date Bea Lacey MD [address] [place] [address] PCP - General Family Medicine 09/22/22 documented as of this encounter
--- OUTSIDE RECORDS SUMMARY | 2024-06-14 15:00 | XMS_ITS | Encounter Summary ---
Author Organization [employer] Address [address] [facility] 7t [place] [address] Care Team Providers Care Can Reconditioner Name Role Phone Gordon Mills MD Primary Care Prov ider Bea Cottrell MD Primary Care Provider [phone] Reason for Visit * Reason Onset Date Comments PCP change 09/01/2022 Encounter Details Date Type Department Care Team ([facility] Contact Info) Description 09/01/2022 Telephone [facility] MED & PEDS [address] [place], [place] [phone] Gordon Mills MD [address] [place], [place] [phone] PCP change Social History Tobacco Use Types [...] Description 06/15/2024 2:00 PM EDT Office Visit [facility] ADULT DENTAL [address] [place] [address] Liliana Stephen 06/20/2024 8:45 AM EDT Telemedicine [facility] MED & PEDS [address] [place] [address] Bea Cottrell MD [address] [place] [address] 07/26/2024 9:30 AM EDT Office Visit [facility] MED & PEDS [address] [place] [address] Bea Cottrell MD [address] [place] [address] documented as of this encounter Visit Diagnoses Not on filedocumented in this encounter Additional Health Concerns Assessment Noted Time PHQ-9 Depression Total Score: 7 05/29/19 10:45 AM EDT documented as of this encounter Care Teams Can Reconditioner Relationship Specialty Start Date End Date Gordon Mills MD [address] [place] [address] PCP - General Internal Medicine 07/12/19 09/21/22 Bea Cottrell MD [address] [place] [address] PCP - General Family Medicine 09/22/22 documented as of this encounter
--- OUTSIDE RECORDS SUMMARY | 2024-06-14 15:00 | XMS_ITS | Encounter Summary ---
Author Organization [employer] Address [address] [facility] 7t [place] [address] Care Team Providers Care Entry Level Chemist Name Role Phone Bea Lacey MD Primary Care Provider [phone] Reason for Visit * Reason Onset Date Comments Nurse Triage 02/08/2024 Encounter Details Date Type Department Care Team ([facility] st Contact Info) Description 02/08/2024 Telephone [facility] MEDICINE [address] [place], [place] [phone] Bea Lacey MD [address] [place], [place] [phone] Nurse Triage Social History Tobacco Use Types [...] Description 06/15/2024 2:00 PM EDT Office Visit [facility] ADULT DENTAL [address] [place] [address] Liliana Stephen 06/20/2024 8:45 AM EDT Telemedicine [facility] MED & PEDS [address] [place] [address] Bea Lacey MD [address] [place] [address] 07/26/2024 9:30 AM EDT Office Visit [facility] MED & PEDS [address] [place] [address] Bea Lacey MD [address] [place] [address] documented as of this encounter Visit Diagnoses Not on filedocumented in this encounter Additional Health Concerns Assessment Noted Time PHQ-9 Depression Total Score: 20 024 10:22 AM EDT documented as of this encounter Care Teams Entry Level Chemist Relationship Specialty Start Date End Date Bea Lacey MD [address] [place] [address] PCP - General Family Medicine 09/22/22 documented as of this encounter
--- OUTSIDE RECORDS SUMMARY | 2024-06-14 15:00 | XMS_ITS | Encounter Summary ---
Author Organization [employer] Address [address] [facility] 7t [place] [address] Care Team Providers Care Community Leader Name Role Phone Gordon Mills MD Primary Care Prov ider Bea Lacey MD Primary Care Provider [phone] Encounter Details Date Type Department Care Team (Latest Contact Info) Description 08/14/2020 Abstract [facility] CONVERSIONS Dental, Provider, DDS Social History Tobacco [...] Description 06/15/2024 2:00 PM EDT Office Visit [facility] ADULT DENTAL [address] [place] [address] Liliana Stephen 06/20/2024 8:45 AM EDT Telemedicine [facility] MED & PEDS [address] [place] [address] Bea Lacey MD [address] [place] [address] 07/26/2024 9:30 AM EDT Office Visit [facility] MED & PEDS [address] [place] [address] Bea Lacey MD [address] [place] [address] documented as of this encounter Visit Diagnoses Not on filedocumented in this encounter Care Teams Community Leader Relationship Specialty Start Date End Date Gordon Mills MD [address] [place] [address] PCP - General Internal Medicine 07/12/19 09/21/22 Bea Lacey MD [address] [place] [address] PCP - General Family Medicine 09/22/22 documented as of this encounter
--- OUTSIDE RECORDS SUMMARY | 2024-06-14 15:00 | XMS_ITS | Encounter Summary ---
Author Organization [employer] Address 75 [facility] 7 [place] [address] Care Team Providers Care Blankbook Stitching Machine Operator Name Role Phone Gordon Mills MD Primary Care Prov ider Bea Lacey MD Primary Care Provider [phone] Reason for Referral * Social Care Application (Routine) - Closed Specialty Diagnoses / Procedures Referred By Contac t Referred To Contact Diabetic / Diabetes Services Diagnoses Type 2 diabetes mellitus with hyperglycemia, without long-term current use of insulin (CMS/HCC) Peter Barlow MD [address] [place] [address] Phone: tel: fax: Referral ID Status Reason Start Date Expiration Date V isits Requested Visits Authorized [id number] Closed Specialty Services Required 09/02/2022 03/01/2023 1 1 Encounter Details Date Type Department Care Team (Late st Contact Info) Description 09/02/2022 Orders Only [facility] CHC MED & PEDS [address] [place] [address] Peter Barlow MD [address] [place], [place] [phone] Type 2 diabetes mellitus with hyperglycemia, without [...] Description 06/15/2024 2:00 PM EDT Office Visit [facility] [address] [place] [address] Liliana Stephen 06/20/2024 8:45 AM EDT Telemedicine [facility] [address] [place] [address] Bea Lacey MD [address] [place] [address] 07/26/2024 9:30 AM EDT Office Visit [facility] [address] [place] [address] Bea Lacey MD [address] [place] [address] Scheduled Referrals Name Type Priority Associated Diagnoses [...] documented as of this encounter Care Teams Blankbook Stitching Machine Operator Relationship Specialty Start Date End Date Gordon Milsl MD [address] [place] [address] PCP - General Internal Medicine 07/12/19 09/21/22 Bea Lacey MD [address] [place] [address] PCP - General Family Medicine 09/22/22 documented as of this encounter
--- OUTSIDE RECORDS SUMMARY | 2024-06-14 15:00 | XMS_ITS | Encounter Summary ---
Author Organization [employer] Address 75 [facility] 7t [place] [address] Care Team Providers Care Pick Up Attendant Name Role Phone Bea Lacey MD Primary Care Provider [phone] Reason for Visit * Reason Onset Date Comments Medication Question 06/20/2023 Encounter Details Date Type Department Care Team ([facility] Contact Info) Description 06/20/2023 Telephone [facility] MEDICINE [address] [place], [place] [phone] Bea Lacey MD [address] [place], [place] [phone] Medication Question Social History Tobacco Use Types [...] Description 06/15/2024 2:00 PM EDT Office Visit [facility] [address] [place] [address] Liliana Stephen 06/20/2024 8:45 AM EDT Telemedicine [facility] MED & PED[facility] [address] [place] [address] Bea Lacey MD [address] [place] [address] 07/26/2024 9:30 AM EDT Office Visit [facility] MED [facility]ED[facility] [address] [place] [address] Bea Lacey MD [address] [place] [address] documented as of this encounter Visit Diagnoses Not on filedocumented in this encounter Additional Health Concerns Assessment Noted Time PHQ-9 Depression Total Score: 20 024 10:22 AM EDT documented as of this encounter Care Teams Pick Up Attendant Relationship Specialty Start Date End Date Bea Lacey MD [address] [place] [address] PCP - General Family Medicine 09/22/22 documented as of this encounter
--- OUTSIDE RECORDS SUMMARY | 2024-06-14 15:00 | XMS_ITS | Clinical Summary ---
Author Organization [facility] Address [address] [place] [phone] Phone Care Team Providers Care Automatic Dispenser Mechanic Name Role Phone Lula Lacey MD Primary Care Provider [phone] Allergies Active Allergy Reactions Criticality Noted Date [...] Office Visit [facility] [address] [phone] Get Galo MD [address] [address] Health Maintenance Due Date Last Done Comments Colorectal Cancer Screening: Annual FOBT 2001 Colorectal Cancer Screening: Colonoscopy 2001 Colorectal Cancer Screening: Sigmoidoscopy 2001 Diabetes: Ophthalmology Exam 03/23/2020 Diabetes: Pedal Pulse Checked 03/23/2020 Diabetes: Sensory Foot Exam 03/23/2020 Diabetes: Visual Foot Exam 03/23/2020 Diabetes: Hemoglobin A1C 02/09/2024 11/10/2023, 08/0 02/2018 Hepatitis B Vaccine Aged Out 10/08/2016, 06/15/2016, 02/12/2016 No longer eligible based on patient's age to complete this topic Pneumococcal Vaccine: 50+ Years Completed 09/15/2020, 10/26/2018, 04/26/2012, Additional history exists Pneumococcal Vaccine: Peds (0 to 5 Years) and At-Risk Patients (6 to 49 Years) Discontinued 09/15/2020, 10/26/2018, 04/26/2012, Additional history exists Influenza [...] ug/dl RTAMA 09/21/2018 us Rtama Conversion LAB [id number] LICITED RESULTS Final Result RTAMA from Last 3 Months or Most Recently Relevant to Health Maintenance Insurance Medicare Medicaid [place] Medicare Medicaid [place] Care Teams Automatic Dispenser Mechanic Relationship Specialty Start Date End Date Lula Lacey MD [address] [place] [address] ZACH CAMACHO PCP - General Internal Medicine 01/25/24
--- OUTSIDE RECORDS SUMMARY | 2024-06-14 15:00 | XMS_ITS | Encounter Summary ---
Author Organization [employer] Address [address] [place] [address] 7t [place] [address] Care Team Providers Care Post Manager Name Role Phone Bea Lacey MD Primary Care Provider [phone] Reason for Visit * Reason Comments Med Refill Encounter Details Date Type Department Care Team (Late Contact Info) Description 10/11/[address] [facility] MED & PEDS [address] [place] [address] Bea Lacey MD [address] [place] [address] Chronic rhinitis Social History Tobacco Use Types [...] Department Care Team (Late Contact Info) Description 06/15/2024 2:00 PM EDT Office Visit [facility] ADULT DENTAL [address] [place] [address] Liliana Stephen 06/20/2024 8:45 AM EDT Telemedicine [facility] [address] [place] [address] Bea Lacey MD [address] [place] [address] 07/26/2024 9:30 AM EDT Office Visit [facility] CHC MED & PEDS [address] [place] [address] Bea Lacey MD [address] [place] [address] documented as of this encounter Visit Diagnoses Diagnosis Chronic rhinitis documented in this encounter Additional Health Concerns Assessment Noted Time PHQ-9 Depression Total Score: 7 05/29/19 10:45 AM EDT documented as of this encounter Care Teams Post Manager Relationship Specialty Start Date End Date Bea Lacey MD [address] [place] [address] PCP - General Family Medicine 09/22/22 documented as of this encounter
--- OUTSIDE RECORDS SUMMARY | 2024-06-14 15:00 | XMS_ITS | Encounter Summary ---
Author Organization [employer] Address 75 [facility] 7t [place] [address] Care Team Providers Care Deputy [place] Marshal Name Role Phone Bea Lacey MD Primary Care Provider [phone] Encounter Details Date Type Department Care Team (Late st Contact Info) Description 07/14/2023 Orders Only [facility] CHC MED & PEDS [address] [place], [place] [phone] ProviderTia MD Social History Tobacco Use Types [...] Description 06/15/2024 2:00 PM EDT Office Visit [facility] [address] [place] [address] Liliaan Stephen 06/20/2024 8:45 AM EDT Telemedicine [facility] MED [facility] PEDS [address] [place] [address] Bea Lacey MD [address] [place] [address] 07/26/2024 9:30 AM EDT Office Visit [facility] MED [facility] PEDS [address] [place] [address] Bea Lacey MD [address] [place] [address] documented as of this encounter Procedures Procedure [...] documented as of this encounter Care Teams Deputy United [place] Marshal Relationship Specialty Start Date End Date Bea Lacey MD [address] [place] [address] PCP - General Family Medicine 09/22/22 documented as of this encounter
--- OUTSIDE RECORDS SUMMARY | 2024-06-14 15:00 | XMS_ITS | Encounter Summary ---
Author Organization [employer] Address 75 [facility] 7t [place] [address] Care Team Providers Care Education Department Chair Name Role Phone Bea Lacey MD Primary Care Provider [phone] Reason for Visit * Reason Onset Date Comments Medication Question 02/07/2023 Encounter Details Date Type Department Care Team ([facility] Contact Info) Description 02/07/2023 Telephone [facility] MEDICINE [address] [place], [place] [phone] Bea Lacey MD [address] [place], [place] [phone] Medication Question Social History Tobacco Use Types [...] of Linzess and had the med lowered [id number] last month. Pt states diarrhea has stopped [...] 06/15/2024 2:00 PM EDT Office Visit [facility] AD[facility] [address] [place] [address] Liliana Stephen 06/20/2024 8:45 AM EDT Telemedicine [facility] MED & PEDS [address] [place] [address] Bea Lacey MD [address] [place] [address] 07/26/2024 9:30 AM EDT Office Visit [facility] MED & PEDS [address] [place] [address] Bea Lacey MD [address] [place] [address] documented as of this encounter Visit Diagnoses Not on filedocumented in this encounter Additional Health Concerns Assessment Noted Time PHQ-9 Depression Total Score: 7 05/29/19 10:45 AM EDT documented as of this encounter Care Teams Education Department Chair Relationship Specialty Start Date End Date Bea Lacey MD [address] [place] [address] PCP - General Family Medicine 09/22/22 documented as of this encounter
--- OUTSIDE RECORDS SUMMARY | 2024-06-14 15:00 | XMS_ITS | Encounter Summary ---
Author Organization [employer] Address 75 [facility] 7t [place] [address] Care Team Providers Care Risk Modeler Name Role Phone Bea Lacey MD Primary Care Provider [phone] Reason for Visit * Reason Onset Date Comments Nurse Triage 11/08/2023 Encounter Details Date Type Department Care Team ([facility] Contact Info) Description 11/08/2023 Telephone [facility] CHC MED & PEDS [address] [place], [place] [phone] Bea Lacey MD [address] [place], [place] [phone] Nurse Triage Social History Tobacco Use Types [...] accepted this outcome. Please contact pt at [phone] documented in this encounter Plan of Treatment Upcoming Encounters Date Type Department Care Team ([facility] st Contact Info) Description 06/15/2024 2:00 PM EDT Office Visit [facility] [address] [place] [address] Liliana Stephen 06/20/2024 8:45 AM EDT Telemedicine [facility] [address] [place] [address] Bea Lacey MD [address] [place] [address] 07/26/2024 9:30 AM EDT Office Visit [facility] [address] [place] [address] Bea Lacey MD [address] [place] [address] documented as of this encounter Visit Diagnoses Not on filedocumented in this encounter Additional Health Concerns Assessment Noted Time PHQ-9 Depression Total Score: 20 024 10:22 AM EDT documented as of this encounter Care Teams Risk Modeler Relationship Specialty Start Date End Date Bea Lacey MD [address] [place] [address] PCP - General Family Medicine 09/22/22 documented as of this encounter
--- OUTSIDE RECORDS SUMMARY | 2024-06-14 15:00 | XMS_ITS | Encounter Summary ---
Author Organization [employer] Address 75 [facility] 7t [place] [address] Care Team Providers Care Dinkey Engine Operator Name Role Phone Bea Lacey MD Primary Care Provider [phone] Reason for Visit * Reason Comments Med Refill Encounter Details Date Type Department Care Team ([facility] st Contact Info) Description 03/30/2024 Refill [facility] CHC MED & PEDS [address] [place], [place] [phone] Bea Lacey MD [address] [place], [place] [phone] Essential tremor Social History Tobacco Use Types [...] 2:00 PM EDT Office Visit [facility] [address] [place] [address] Liliana Stephen 06/20/2024 8:45 AM EDT Telemedicine [facility] MED & PEDS [address] [place] [address] Bea Lacey MD [address] [place] [address] 07/26/2024 9:30 AM EDT Office Visit [facility] P[facility] [address] [place] [address] Bea Lacey MD [address] [place] [address] documented as of this encounter Visit Diagnoses Diagnosis Essential tremor documented in this encounter Additional Health Concerns Assessment Noted Time PHQ-9 Depression Total Score: 20 024 10:22 AM EDT documented as of this encounter Care Teams Dinkey Engine Operator Relationship Specialty Start Date End Date Bea Lacey MD [address] [place] [address] PCP - General Family Medicine 09/22/22 documented as of this encounter
--- OUTSIDE RECORDS SUMMARY | 2024-06-14 15:00 | XMS_ITS | Encounter Summary ---
Author Organization [employer] Address [address] [place] [address] 7t [place] [address] Care Team Providers Care Continuous Process Rotary Drum Tanner Name Role Phone Bea Lacey MD Primary Care Provider [phone] Reason for Visit * Reason Onset Date Comments Glucose Monetor 10/08/2022 Encounter Details Date Type Department Care Team ([facility] Contact Info) Description 10/08/[address] [facility] CHC MED & PEDS [address] [place], [place] [phone] Bea Lacey MD [address] [place] [address] Glucose Monetor Social History Tobacco Use Types [...] call to patient who is requesting a SaltStacke two Sensor. Pt states it will make it easier for him due to difficulty pinching. Pt would like it to be sent to [facility], pt provided number . Patient also stated that he wants a prescription for pseudoephedrine fornasal congestion and runny nose. This message will be forwarded to provider. * Telephone Encounter - Youlizzeth Ino Chan - 10/08/2022 8:21 AM EDT Tc from pt requesting a SaltStacke two Sensor. Pt states it will make it easier for him due todifficulty pinching. Pt would like it to be sent to [facility], pt provided number Please contact pt at [phone] documented in this encounter Plan of Treatment Upcoming Encounters Date Type Department Care Team (Late st Contact Info) Description 06/15/2024 2:00 PM EDT Office Visit [facility] ADULT DENTAL [address] [place] [address] Liliana Stephen 06/20/2024 8:45 AM EDT Telemedicine [facility] MED & PEDS [address] [place] [address] Bea Lacey MD [address] [place] [address] 07/26/2024 9:30 AM EDT Office Visit [facility] MED & PEDS [address] [place] [address] Bea Lacey MD [address] [place] [address] documented as of this encounter Visit Diagnoses Not on filedocumented in this encounter Additional Health Concerns Assessment Noted Time PHQ-9 Depression Total Score: 7 05/29/19 23 10:45 AM EDT documented as of this encounter Care Teams Continuous Process Rotary Drum Tanner Relationship Specialty Start Date End Date Bea Lacey MD [address] [place] [address], [place] [address] PCP - General Family Medicine 09/22/22 documented as of this encounter
--- OUTSIDE RECORDS SUMMARY | 2024-06-14 15:00 | XMS_ITS | Encounter Summary ---
Author Organization [employer] Address 75 [facility] 7t [place] [address] Care Team Providers Care Drum Tester Name Role Phone Bea Lacey MD Primary Care Provider [phone] Reason for Visit * Reason Onset Date Comments Nurse Triage 04/03/2024 Encounter Details Date Type Department Care Team ([facility] st Contact Info) Description 04/03/2024 Telephone [facility] MEDICINE [address] [place], [place] [phone] Bea Lacey MD [address] [place], [place] [phone] Nurse Triage Social History Tobacco Use Types [...] and is followed by Pain management at [facility] Has not notified that Dept at this [...] a new brain surgery on 04/05/24 at [facility]. Disposition reviewed and patient in agreement with plan. Will call to follow with appt. scheduling when recovered from procedure at [facility]. Patient requests that PCP be updated. Forwarded to PCP as patient requested. Protocol Used: Chest Pain (Adult) Protocol-Based Disposition: See in Office or Video Visit Today Override (Final) Disposition: Refer to Specialist Override Reason: Caller refused suggested disposition Override Notes: Patient followed by [facility] Pain Management but wants PCP updated Video visit not offered Positive Triage Question: * All other patients with chest pain (Exception: Fleeting chest pain lasting a few seconds.) * All higher-acuity triage questions were negative Care Advice Discussed: * Reasons To Call Back - You become worse * Telephone Encounter - Terri Lauro Suárez - 04/03/2024 12:08 PM EST Symptom: Pain - Severe (Right side under rib), Skin painful to touch. Outcome: Schedule an urgent appointment (within 1 hour) or talk to a nurse or provider soon Reason: Caller denied all higher acuity questions The caller accepted this outcome. [phone] documented in this encounter Plan of Treatment Upcoming Encounters Date Type Department Care Team (Late st Contact Info) Description 06/15/2024 2:00 PM EDT Office Visit [facility] ADULT DENTAL [address] [place] [address] Liliana Stephen 06/20/2024 8:45 AM EDT Telemedicine [facility] MED & PEDS [address] [place] [address] Bea Lacey MD [address] [place] [address] 07/26/2024 9:30 AM EDT Office Visit [facility] MED & PEDS [address] [place] [address] Bea Lacey MD [address] [place] [address] documented as of this encounter Visit Diagnoses Not on filedocumented in this encounter Additional Health Concerns Assessment Noted Time PHQ-9 Depression Total Score: 20 024 10:22 AM EDT documented as of this encounter Care Teams Drum Tester Relationship Specialty Start Date End Date Bea Lacey MD [address] [place] [address] PCP - General Family Medicine 09/22/22 documented as of this encounter
--- OUTSIDE RECORDS SUMMARY | 2024-06-14 15:00 | XMS_ITS | Clinical Summary ---
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 Benign hypertension 12/30/2023 BPH (benign prostatic hyperplasia) 12/30/2023 Bilateral cataracts 12/30/2023 Bilateral tinnitus 12/30/2023 CVA (cerebral vascular accident) ([facility] V24, C [place]/[facility] V28) 12/30/2023 Heart failure with normal ej ection fraction ([facility] V24, [facility] V28) 12/30/2023 Hyperlipidemia 12/30/2023 History of parathyroidectomy 12/30/2023 CKD (chronic kidney disease) 12/30/2023 Type 2 diabetes mellitus wit h hyperglycemia ([facility] V24, [facility] V28) 12/30/2023 CAD in [place] artery 12/30/2023 Erectile dysfunction due to diseases [...] Diabetes: Annual Urine Albumin-Creatinine Ratio (uACR) 12/01/2023 COVID-19 Vaccine (7 - Mixed Product risk ) 2024 11/01/2023, 11/18/2022, 12/08/2021, Additional history exists Diabetes: Blood Sugar Control Test (HGBA1C) 05/09/2024 [...] Completed 10/31/2023, , 12/03/2021, Additional history exists HIB Vaccines Aged Out [...] Insurance MEDICARE MEDICAID - [place] Care Teams Knitting Demonstrator Relationship Specialty Start Date End Date Bea Lacey MD [address] [place] [address] PCP - General 04/04/23
--- OUTSIDE RECORDS SUMMARY | 2024-06-14 15:00 | XMS_ITS | Encounter Summary ---
Author Organization [employer] Address 75 [facility] 7t [place] [address] Care Team Providers Care Chemical Dependency Attendant Name Role Phone Bea Lacey MD Primary Care Provider [phone] Reason for Visit * Reason Onset Date Comments Medication Question 06/14/2024 Encounter Details Date Type Department Care Team ([facility] Contact Info) Description 06/14/2024 Telephone [facility] MEDICINE [address] [place], [place] [phone] Bea Lacey MD [address] [place], [place] [phone] Medication Question Social History Tobacco Use Types [...] encounter Miscellaneous Notes * Telephone Encounter - Lalit Woods - 06/14/2024 12:01 PM EDT Tc from pt requesting a Script for a Glocometer from [employer]. Pt doesn't like the Freestyle 2, he thinks that they are inaccurate and they fall off of him. Contact pt at [phone] [employer] documented in this encounter Plan of Treatment Upcoming Encounters Date Type Department Care Team (Late st Contact Info) Description 06/15/2024 2:00 PM EDT Office Visit [facility] ADULT DENTAL [address] [place] [address] Liliana Stephen 06/20/2024 8:45 AM EDT Telemedicine [facility] MED & PEDS [address] [place] [address] Bea Lacey MD [address] [place] [address] 07/26/2024 9:30 AM EDT Office Visit [facility] MED & PEDS [address] [place] [address] Bea Lacey MD [address] [place] [address] documented as of this encounter Visit Diagnoses Not on filedocumented in this encounter Additional Health Concerns Assessment Noted Time PHQ-9 Depression Total Score: 20 024 10:22 AM EDT documented as of this encounter Care Teams Chemical Dependency Attendant Relationship Specialty Start Date End Date Bea Lacey MD [address] [place] [address] PCP - General Family Medicine 09/22/22 documented as of this encounter
--- OUTSIDE RECORDS SUMMARY | 2024-06-14 15:00 | XMS_ITS | Encounter Summary ---
Author Organization [employer] Address 75 [facility] 7t [place] [address] Care Team Providers Care Liaison Officer Name Role Phone Bea Lacey MD Primary Care Provider [phone] Encounter Details Date Type Department Care Team ([facility] st Contact Info) Description 02/29/2024 Orders Only [facility] CHC MED & PEDS [address] [place], [place] [phone] Bea Lacey MD [address] [place], [place] [phone] Type 2 diabetes mellitus with hyperglycemia (CMS/HCC) [...] 2:00 PM EDT Office Visit [facility] ADULT DENTAL [address] [place] [address] Liliana Stephen 06/20/2024 8:45 AM EDT Telemedicine [facility] MED & PEDS [address] [place] [address] Bea Lacey MD [address] [place] [address] 07/26/2024 9:30 AM EDT Office Visit [facility] MED & PEDS [address] [place] [address] Bea Lacey MD [address] [place] [address] documented as of this encounter Visit Diagnoses Diagnosis Type 2 diabetes mellitus with hyperglycemia (CMS/HCC) documented in this encounter Additional Health Concerns Assessment Noted Time PHQ-9 Depression Total Score: 20 024 10:22 AM EDT documented as of this encounter Care Teams Liaison Officer Relationship Specialty Start Date End Date Bea Lacey MD [address] [place] [address] PCP - General Family Medicine 09/22/22 documented as of this encounter
--- OUTSIDE RECORDS SUMMARY | 2024-06-14 15:00 | XMS_ITS | Encounter Summary ---
Author Organization [employer] Address 75 [facility] 7 [place] [address] Care Team Providers Care Group Home Paraprofessional Name Role Phone Bea Lacey MD Primary Care Provider [phone] Reason for Visit * Reason Comments Med Refill Encounter Details Date Type Department Care Team ([facility] st Contact Info) Description 10/12/2022 Refill [facility] & PEDS [address] [place], [place] [phone] Gordon Mills MD [address] [place] [address] Chronic rhinitis Social History Tobacco Use Types [...] [facility] [address] [place] [address] Liliana Stephen 06/20/2024 8:45 AM EDT Telemedicine [facility] MED & PEDS [address] [place] [address] Bea Lacey MD [address] [place] [address] 07/26/2024 9:30 AM EDT Office Visit [facility] MED & PEDS [address] [place] [address] Bea Lacey MD [address] [place] [address] documented as of this encounter Visit Diagnoses Diagnosis Chronic rhinitis documented in this encounter Additional Health Concerns Assessment Noted Time PHQ-9 Depression Total Score: 7 05/29/19 23 10:45 AM EDT documented as of this encounter Care Teams Group Home Paraprofessional Relationship Specialty Start Date End Date Bea Lacey MD [address] [place] [address] PCP - General Family Medicine 09/22/22 documented as of this encounter
--- OUTSIDE RECORDS SUMMARY | 2024-06-14 15:00 | XMS_ITS | Encounter Summary ---
Author Organization [employer] Address 75 [facility] 7t [place] [address] Care Team Providers Care Mechanical And Auto Body Car Checker Name Role Phone Bea Lacey MD Primary Care Provider [phone] Encounter Details Date Type Department Care Team ([facility] st Contact Info) Description 05/21/2024 Telephone C [facility] [address] [place], [place] [phone] Bea Lacey MD [address] [place], [place] [phone] Social History Tobacco Use Types Packs/Day Years [...] Description 06/15/2024 2:00 PM EDT Office Visit [facility] ADULT DENTAL [address] [place] [address] Liliana Stephen 06/20/2024 8:45 AM EDT Telemedicine [facility] MED & PEDS [address] [place] [address] Bea Lacey MD [address] [place] [address] 07/26/2024 9:30 AM EDT Office Visit [facility] MED & PEDS [address] [place] [address] Bea Lacey MD [address] [place] [address] documented as of this encounter Visit Diagnoses Not on filedocumented in this encounter Additional Health Concerns Assessment Noted Time PHQ-9 Depression Total Score: 20 024 10:22 AM EDT documented as of this encounter Care Teams Mechanical And Auto Body Car Checker Relationship Specialty Start Date End Date Bea Lacey MD [address] [place] [address] PCP - General Family Medicine 09/22/22 documented as of this encounter
--- OUTSIDE RECORDS SUMMARY | 2024-06-14 15:00 | XMS_ITS | Encounter Summary ---
Author Organization [employer] Address [address] [facility] 7t [place] [address] Care Team Providers Care Academic Affairs Specialist Name Role Phone Gordon Mills MD Primary Care Prov ider Bea Lacey MD Primary Care Provider [phone] Reason for Visit * Reason Comments Med Refill Encounter Details Date Type Department Care Team ([facility] Contact Info) Description 09/02/2022 Refill [facility] CHC MED & PEDS [address] [place], [place] [phone] Peter Barlow MD [address] [place] [address] Social History Tobacco Use Types Packs/Day Years [...] Visit [facility] ADULT DENTAL [address] [place] [address] Liliana Stephen 06/20/2024 8:45 AM EDT Telemedicine [facility] MED & PEDS [address] [place] [address] Bea Lacey MD [address] [place] [address] 07/26/2024 9:30 AM EDT Office Visit [facility] MED & PEDS [address] [place] [address] Bea Lacey MD [address] [place] [address] documented as of this encounter Visit Diagnoses Not on filedocumented in this encounter Additional Health Concerns Assessment Noted Time PHQ-9 Depression Total Score: 7 05/29/19 10:45 AM EDT documented as of this encounter Care Teams Academic Affairs Specialist Relationship Specialty Start Date End Date Gordon Mills MD [address] [place] [address] PCP - General Internal Medicine 07/12/19 09/21/22 Bea Lacey MD [address] [place] [phone] PCP - General Family Medicine 09/22/22 documented as of this encounter
--- OUTSIDE RECORDS SUMMARY | 2024-06-14 15:00 | XMS_ITS | Clinical Summary ---
Author Organization [employer] Address 75 [facility] 7t [place] [address] Care Team Providers Care Tax Compliance Manager Name Role Phone Bea Lacey MD Primary Care Provider [phone] Allergies Active Allergy Reactions Criticality Noted Date [...] 1 tablet by mouth at bedtime. Active chlorhexidine (Peridex) 0.12 % solution RINSE FOR 30 SECONDS WITH A HALF OUNCE (15ML) TWICE DAILY AFTER MEALS. SPIT OUT--DO NOT SWALLOW. 473 mL 023 Active Blood Pressure Monitor kit Check BP daily 1 kit 023 Active Alcohol Swabs (Alcohol Pads) 70 % pads 1 Units 3 times daily. 100 each 11 024 Active fluticasone (Flonase) 50 MCG/ACT nasal spray INHALE ONE SPRAY IN EACH NOSTRIL TWICE DAILY NEEDED FOR ALLERGIES 48 g 4 Active insulin pen needle (BD Pen Needle [place] U/F) 32G x 4 mm misc USE ONCE DAILY 100 each 11 Active esomeprazole (NexIUM) [address] capsule TAKE ONE CAPSULE TWICE DAILY IN THE MORNING AND AT BEDTIME Active HYDROcodone-aceta minophen ([place]) 5-325 MG tablet Take 1 tablet by mouth every 6 (six) hours if needed. Active Methylnaltrexone [place] (Relistor) 150 MG tablet Active methylPREDNISolon e [...] if needed for low blood sugar. Active TRUEplus Glucose 4 g chewable tablet [...] mg) by mouth before lunch. 30 tablet 11 025 2025 Active glipiZIDE (Glucotrol) 5 MG tablet Take 1 tablet (5 mg) by mouth Once per day. 30 tablet 11 025 2025 Active Blood Glucose Monitoring Suppl (FreeStyle [place] Lite) w/Device kit TEST BLOOD SUGAR DAILY [...] DRINK DAILY NEEDED/ DIRECTED. 510 g 2 025 Active amoxicillin (Amoxil) 500 MG capsule Take 4 tabs (2 grams) 1 hour prior to dental procedure 16 capsule 3 025 Active rosuvastatin (Crestor) 40 MG tabletIndications [...] AT NOON 30 tablet 11 025 Active docusate sodium (Colace) 100 MG capsuleIndication s:Chronic idiopathic constipation TAKE ONE CAPSULE TWICE DAILY IN THE MORNING AND AT BEDTIME 60 capsule 2 025 Active famotidine (Pepcid) 40 MG tablet TAKE ONE TABLET EVERY NIGHT AT BEDTIME 90 tablet 1 025 Active sucralfate (Carafate) 1 g tabletIndications :Gastroesophageal reflux disease without esophagitis TAKE ONE TABLET TWICE DAILY IN THE MORNING AND AT BEDTIME ON AN EMPTY STOMACH 60 tablet 1 025 Active clonazePAM (KlonoPIN) 0.5 MG tabletIndications :Essential tremor TAKE ONE TABLET THREE TIME DAILY IN THE MORNING, AT NOON, AND IN THE EVENING 90 tablet 1 025 Active docusate sodium (Colace) 100 MG capsuleIndication s:Chronic idiopathic constipation TAKE TWO CAPSULES TWICE DAILY IN THE MORNING AND AT BEDTIME 120 capsule 11 023 2024 Discontinued famotidine (Pepcid) 40 MG tablet TAKE ONE TABLET EVERY NIGHT AT BEDTIME 90 tablet 1 024 2024 Discontinued sucralfate (Carafate) 1 g tabletIndications :Gastroesophageal reflux disease without esophagitis Take 1 tablet (1 g) by mouth before breakfast and before evening meal. 60 tablet 1 025 2024 Discontinued clonazePAM (KlonoPIN) 0.5 MG tabletIndications :Essential tremor TAKE ONE TABLET THREE TIME DAILY IN THE MORNING, AT NOON, AND IN THE EVENING 90 tablet 1 025 2024 Discontinued Active Problems Problem Noted Date [...] to surgery has appointment next week at [facility]. On examination no warning signs Chronic abdominal [...] 3 secondary to diabetes 01/28/2022 CAD in [place] artery 01/28/2022 Type 2 diabetes mellitus wit [...] Encounters Date Type Department Care Team Description 06/14/2024 Telephone [facility] MEDICINE [address] [place] [address] Bea Lacey MD Medication Question 06/04/2024 Telephone [facility] [address] [place] [address] Baylee De La Torre, PharmD 06/01/2024 1:00 PM EDT Office Visit [facility] MED & PEDS [address] [place] [address] Adeola Spencer MD Type 2 diabetes mellitus with other circulatory complication, without long-term current use of insulin ([facility]) (Primary Dx); Multiple episodes of hypoglycemia; Chronic constipation 06/01/2024 Travel 05/31/2024 Telephone [facility] [address] [place] [address] Bea Lacey MD Medication Question 05/29/2024 Refill [facility] MED & PEDS [address] [place] [address] Bea Lacey MD Essential tremor 05/29/2024 Refill [facility] MED & PEDS [address] [place] [address] Gordon Mills MD Gastroesophageal reflux disease without esophagitis 05/28/2024 Telephone [facility] [address] [place] [address] Bea Lacey MD Referral 05/26/2024 Refill [facility] MED & PEDS [address] [place] [address] Bea Lacey MD Chronic idiopathic constipation 05/21/2024 Telephone [facility] MED & PEDS [address] [place] [address] Bea Lacey MD Referral 05/21/2024 Telephone [facility] MED & PEDS [address] [place] [address] Bea Lacey MD 05/01/2024 Refill [facility] MED & PEDS [address] [place] [address] Bea Lacey MD Chronic allergic rhinitis 04/25/2024 11:30 AM EST Telemedicine [facility] MED & PEDS [address] [place] [address] Bea Lacey MD Rib pain on right side (Primary Dx) 04/25/2024 Travel 04/23/2024 Refill [facility] MED & PEDS [address] [place] [address] Bea Lacey MD Gastroesophageal reflux disease without esophagitis; Anxiety 04/19/2024 1:00 PM EST Office Visit [facility] ADULT DENTAL [address] [place] [address] Paula Nichols, CHRISTINA 04/04/2024 Refill [facility] [address] [place] [address] Bea Lacey MD Essential tremor 04/03/2024 Telephone [facility] [address] [place] [address] Bea Lacey MD Nurse Triage 03/30/2024 Refill [facility] MED & PEDS [address] [place] [address] Bea Lacey MD Essential tremor 03/30/2024 Refill [facility] MED & PEDS [address] [place] [address] Bea Lacey MD 03/28/2024 Refill [facility] MED & PEDS [address] [place] [address] Bea Lacey MD Vitamin D deficiency 03/27/2024 Refill [facility] MED & PEDS [address] [place] [address] Bea Lacey MD Essential tremor; Mixed hyperlipidemia 03/26/2024 10:00 AM EST Office Visit [facility] ADULT DENTAL [address] [place] [address] Paula Nichols, DMD 03/23/2024 Telephone [facility] MED & PEDS [address] [place] [address] Bea Lacey MD Med Refill 03/22/2024 Refill [facility] MED & PEDS [address] [place] [address] Bea Lacey MD Type 2 diabetes mellitus with hyperglycemia ([facility]); Gastroesophageal reflux disease without esophagitis 03/16/2024 Refill [facility] MED & PEDS [address] [place] [address] Bea Lacey MD from Last 3 Months Immunizations Name [...] Sign Reading Time Taken Comments Blood Pressure 146/83 06/01/2024 1:04 PM EDT Pulse 76 06/01/2024 1:04 PM EDT Temperature 36.7 ??C (98 ??F) 06/01/2024 1:04 PM EDT Respiratory Rate 18 06/01/2024 1:04 PM EDT Oxygen Saturation 97% 06/01/2024 1:04 PM EDT Inhaled Oxygen Concentration - - Weight 87.1 kg (192 lb) 06/01/2024 1:04 PM EDT Height 172 cm (5' 7.72 ) 06/01/2024 1:04 PM EDT Body Mass Index 29.44 06/01/2024 1:04 PM EDT Plan of Treatment Upcoming Encounters Date Type Department Care Team (Late st Contact Info) Description 06/15/2024 2:00 PM EDT Office Visit [facility] ADULT DENTAL [address] [place] [address] Liliana Stephen 06/20/2024 8:45 AM EDT Telemedicine [facility] MED & PEDS [address] [place] [address] Bea Lacey MD [address] [place] [address] 07/26/2024 9:30 AM EDT Office Visit [facility] MED & PEDS [address] [place] [address] Bea Lacey MD [address] [place] [address] Health Maintenance Due Date Last Done Comments [...] Additional history exists SDOH Screening 11/19/2023 11/18/2022 Colonoscopy 03/14/2024 03/14/2014 Colorectal Cancer Screening 03/14/2024 Dental Oral Exam 05/09/2024 11/09/2023, , 09/30/2022 Dental Prophylaxis 05/09/2024 11/09/2023, 0 05/05/2023, 09/30/2022, Additional history exists Depression Screening 06/02/2024 06/03/2023, 06/03/19 Dental X-Ray: Bitewings 11/09/2024 11/09/19 24, 12/22/2022, 09/30/2022 Lipid Panel 11/09/2024 11/10/2023, 03/25, 11/09/2022, Additional history exists Diabetes: Hemoglobin A1C 12/01/2024 025, 11/10/2023, 03/30/2023, Additional history exists Tobacco Screening 06/01/2025 06/01/2024 Dental X-Ray: Full Mouth 11/09/2026 11/09/2023 DTaP/Tdap/Td [...] Procedure Name Priority Date/Time Associated Diagnosis Comments POCT GLYCATED HEMOGLOBIN, TOTAL Routine 06/01/2024 1:53 PM EDT Type 2 diabetes mellitus with other circulatory complication, without long-term current use of insulin (CMS/HCC) POCT GLUCOSE Routine 06/01/2024 1:53 PM EDT Type 2 diabetes mellitus with other circulatory complication, without long-term current use of insulin (CMS/HCC) TSH W/REFLEX TO FT4 Routine 06/01/2024 1 :39 PM EDT Type 2 diabetes mellitus with other circulatory complication, without long-term current use of insulin (CMS/HCC) BASIC METABOLIC PANEL Routine 06/01/2024 1:39 PM EDT Type 2 diabetes mellitus with other circulatory complication, without long-term current use of insulin (CMS/HCC) CBC WITH AUTO DIFFERENTIAL Routine 06/01/2024 1:39 PM EDT Type 2 diabetes mellitus with other circulatory complication, without long-term current use of insulin (CMS/HCC) CASE PRESENTATION, DETAILED AND EXTENSIVE TREATMENT PLANNING [...] PROBLEM FOCUSED Routine 03/26/2024 10:00 AM EST LIPID PANEL, STANDARD Routine 11/10/2023 11:22 AM [...] Recently Relevant to Health Maintenance Results * POCT HGB A1C (06/01/2024 1:53 PM EDT) Pathologist [facility] Hemoglobin A1C 6.0 4.0 - 6.0 % QC Media Lot # [id number] Lot# Expiration Date [id number] Blood 06/01/2024 1:53 PM EDT Adeola Spencer MD POINT OF CARE TEST ENTER/EDIT ORDERABLES Final Result * (ABNORMAL) POCT Glucose (06/01/2024 1:53 PM EDT) Pathologist [facility] Glucose Blood, POC 228(A) 60 - 200 mg/dL QC Media Lot # [id number] Lot# Expiration Date 252,[id number] Blood Capillary blood specimen / Unknown 06/01/2024 1:53 PM EDT Adeola Spencer MD POINT OF CARE TEST ENTER/EDIT ORDERABLES Final Result * TSH W/Reflex to FT4 (06/01/2024 1:39 PM EDT) Pathologist [facility] TSH reflex Free T4 1.48 0.32 - 4.0 uIU/mL [facility] Blood Venous blood specimen / Unknown 06/01/2024 1:39 PM EDT 06/01/2024 2:14 PM EDT Adeola Spencer MD LAB BLOOD ORDERABLES Final Re sult [facility] [address] [place], [place] [phone] * (ABNORMAL) CBC auto differential (06/01/2024 1:39 PM EDT) White Blood Count 7.6 4.8 - 10.8 X10*3/uL [facility] Red Blood Count 4.98 4.60 - 5.80 X10*6/uL [facility] Hemoglobin 13.1(L) 14.0 - 18.0 g/dl [facility] Hematocrit 41.9(L) 42.0 - 52.0 % [facility] Mean Corpuscular Volume 84.1 80.0 - 98.0 fL [facility] Mean Corpuscular Hemoglobin 26.3(L) 27.0 - 33.0 pg [facility] Mean Corpuscular HGB Conc 31.3 31.0 - 36.0 g/dl [facility] Red Cell Distribution Width 17.1(H) 11.0 - 16.0 % [facility] Platelet Count 212 160 - 400 X10*3/uL [facility] Mean Platelet Volume 11.3 9.4 - 12.4 fL [facility] Neutrophils Percent Auto 61.0 45 - 73 % [facility] Imm Gran Pct Auto 0.3 0.0 - 0.4 % [facility] Lymphocytes Percent Auto 27.2 20 - 40 % [facility] Monocytes Percent Auto 8.2 2 - 11 % [facility] Eosinophils Percent Auto 2.8 0 - 4 % [facility] Basophils Percent Auto 0.5 0 - 2 % [facility] NRBC Pct Auto 0.0 0.0 - 0.2 /100WBC [facility] Neutrophils Absolute Auto 4.6 2.0 - 8.3 x10*3/uL [facility] Imm Gran Abs Auto 0.02 0.00 - 0.03 X10*3/uL [facility] Lymphocytes Absolute Auto 2.1 1.2 - 4.9 X10*3/uL [facility] Monocytes Absolute Auto 0.6 0.1 - 1.2 X10*3/uL [facility] Eosinophils Absolute Auto 0.2 0.0 - 0.4 X10*3/uL [facility] Basophils Absolute Auto 0.0 0.0 - 0.2 X10*3/uL [facility] NRBC Abs Auto 0.000 0.0 - 0.012 X10*3/uL [facility] Blood Venous blood specimen / Unknown 06/01/2024 1:39 PM EDT 06/01/2024 2:14 PM EDT us Adeola Spencer MD LAB BLOOD ORDERABLES Final Re sult [facility] [address] [place] [address] [phone] * (ABNORMAL) Basic Metabolic Panel (06/01/2024 1:39 PM EDT) Sodium 140 135 - 145 mmol/L [facility] Potassium 4.0 3.3 - 5.1 mmol/L [facility] Chloride 104 96 - 108 mmol/L [facility] Carbon Dioxide 27 22 - 29 mmol/L [facility] Anion Gap 13 12 - 20 [facility] Urea Nitrogen (BUN) 20(H) 9 - 16 mg/dL [facility] Creatinine, Serum 0.98 0.5 - 1.4 mg/dL [facility] Estimated Glomerular Filt Rate >60 [facility] Comment:Chronic Kidney Disea se: Estimated GFR < 60 mL/min/[id number] Kidney Disease: Estimated GFR < 15 mL/min/1.73m2 Glucose 169(H) 60 - 115 mg/dL [facility] Calcium 8.9 8.4 - 10.2 mg/dL [facility] Blood Venous blood specimen / Unknown 06/01/2024 1:39 PM EDT 06/01/2024 2:14 PM EDT us Adeola Spencer MD LAB BLOOD ORDERABLES Final Re sult Performing Organization Address [facility] Co de Phone Number [facility] [address] [place] [phone] * Lipid Panel, Standard (11/10/2023 11:22 AM EDT) Triglycerides 76 <150 mg/dL [facility] Comment:Desirable Triglyceri de: less than 150 mg/dLBorderline High Triglyceride 150-199 mg/dLHigh Triglyceride: 200-499 mg/dLVery High Triglyceride: greater than or equal to 5OO mg/dL Cholesterol 110 <200 mg/dL [facility] Comment:Desirable Cholestero l: less than 200 mg/dLBorderline High Cholesterol: 200-239 mg/dLHigh Cholesterol: greater than 239 mg/dL LDL Cholesterol Calculated 50 <100 mg/dL [facility] Comment:Desirable LDL: less than 100 mg/dLNear Optimal/Above Optimal LDL: 110- 129 mg/dLBorderline High LDL: 130-159 mg/dLHigh LDL: 160-189 mg/dLVery High LDL: greater than or equal to 190 mg/dL HDL Cholesterol 45 >40 mg/dL [facility] Comment:Desirable HDL: great er than 40 mg/dL Note: This HDL assay may give artificially low results in patients with liver disease. Blood Venous blood specimen / Unknown 11/10/2023 11:22 AM EDT 11/10/2023 2:56 PM EDT us Bea Lacey MD LAB BLOOD ORDERABLES Final Resul t Performing Organization Address [facility]/ZIP Co de Phone Number [facility] [address] [place] [address] [phone] * HEPATITIS C AB W/REFL TO HCV RNA, QN, PCR (10/15/2019 1:23 PM EDT) HEPATITIS C ANTIBODY NON-REACT [facility] NON-REACT [facility] INDEX 0.01 <1.00 [facility] Comment: ?? HCV antibody was non-reactive. There is no laboratory ?? evidence of HCV infection. ?? In most cases, no further action is required. However, if recent HCV exposure is suspected, a test for HCV RNA (test code 33323) is suggested. ?? For additional information please refer to [email or web address] (This link is being provided for informational/ educational purposes only.) ?? 10/15/2019 1:23 PM EDT Gordon Rocha MD HISTORICAL/NON ORD ERABLE LABS Final Result [facility] [address] [place] [address], * Hm Colonoscopy (03/14/2014 12:17 PM EST) Historical Provider HEALTH MAINTENANCE Final Result from Last 3 Months or Most Recently Relevant to Health Maintenance Insurance MEDICARE [facility] [employer] STAND ADULT * Guarantor: Malik Maki Account Type Relation to Patient Date of Phone Billing Address Personal/Family Self [address] Care Teams Tax Compliance Manager Relationship Specialty Start Date End Date Bea Lacey MD [address] [place] [phone] PCP - General Family Medicine 09/22/22
--- OUTSIDE RECORDS SUMMARY | 2024-06-14 15:00 | XMS_ITS | Encounter Summary ---
Author Organization [employer] Address 75 [facility] 7[address] [place] [address] Care Team Providers Care Coke Oven Mason Name Role Phone Bea Lacey MD Primary Care Provider [phone] Reason for Visit * Reason Onset Date Comments Results 04/28/2023 Encounter Details Date Type Department Care Team ([facility] st Contact Info) Description 04/28/2023 Telephone [facility] MEDICINE [address] [place], [place] [phone] Bea Lacey MD [address] [place], [place] [phone] Results Social History Tobacco Use Types Packs/Day [...] 2:00 PM EDT Office Visit [facility] ADULT DENTAL [address] [place] [address] Liliana Stephen 06/20/2024 8:45 AM EDT Telemedicine [facility] MED & PEDS [address] [place] [address] Bea Lacey MD [address] [place] [address] 07/26/2024 9:30 AM EDT Office Visit [facility] MED & PEDS [address] [place] [address] Bea Lacey MD [address] [place] [address] documented as of this encounter Visit Diagnoses Not on filedocumented in this encounter Additional Health Concerns Assessment Noted Time PHQ-9 Depression Total Score: 7 05/29/19 23 10:45 AM EDT documented as of this encounter Care Teams Coke Oven Mason Relationship Specialty Start Date End Date Bea Lacey MD [address] [place] [phone] PCP - General Family Medicine 09/22/22 documented as of this encounter
--- OUTSIDE RECORDS SUMMARY | 2024-06-14 15:00 | XMS_ITS | Encounter Summary ---
Author Organization [employer] Address [address] [facility] 7t [place] [address] Care Team Providers Care Brushing Operator Name Role Phone Bea Lacey MD Primary Care Provider [phone] Reason for Visit * Reason Comments Med Refill Encounter Details Date Type Department Care Team ([facility] st Contact Info) Description 03/16/[address] [facility] CHC MED & PEDS [address] [place], [place] [phone] Bea Lacey MD [address] [place], [place] [phone] Social History Tobacco Use Types Packs/Day Years [...] 06/15/2024 2:00 PM EDT Office Visit [facility] AD[facility] [address] [place] [address] Liliana Stephen 06/20/2024 8:45 AM EDT Telemedicine [facility] MED & PEDS [address] [place] [address] Bea Lacey MD [address] [place] [address] 07/26/2024 9:30 AM EDT Office Visit [facility] MED & PEDS [address] [place] [address] Bea Lacey MD [address] [place] [address] documented as of this encounter Visit Diagnoses Not on filedocumented in this encounter Additional Health Concerns Assessment Noted Time PHQ-9 Depression Total Score: 20 024 10:22 AM EDT documented as of this encounter Care Teams Brushing Operator Relationship Specialty Start Date End Date Bea Lacey MD [address] [place] [address] PCP - General Family Medicine 09/22/22 documented as of this encounter
--- OUTSIDE RECORDS SUMMARY | 2024-06-14 15:00 | XMS_ITS | Encounter Summary ---
Author Organization [employer] Address 75 [facility] 7t [place] [address] Care Team Providers Care Sanding Machine Tender Name Role Phone Bea Lacey MD Primary Care Provider [phone] Reason for Visit * Reason Onset Date Comments Nurse Triage 03/05/2024 Encounter Details Date Type Department Care Team ([facility] Contact Info) Description 03/05/2024 Telephone [facility] CHC MED & PEDS [address] [place], [place] [phone] Bea Lacey MD [address] [place], [place] [phone] Nurse Triage Social History Tobacco Use Types [...] Office Visit [facility] ADULT DENTAL [address] [place] [address] Liliana Stephen 06/20/2024 8:45 AM EDT Telemedicine [facility] MED & PEDS [address] [place] [address] Bea Lacey MD [address] [place] [address] 07/26/2024 9:30 AM EDT Office Visit [facility] CHC MED & PEDS [address] [place] [address] Bea Lacey MD [address] [place] [address] documented as of this encounter Visit Diagnoses Not on filedocumented in this encounter Additional Health Concerns Assessment Noted Time PHQ-9 Depression Total Score: 20 024 10:22 AM EDT documented as of this encounter Care Teams Sanding Machine Tender Relationship Specialty Start Date End Date Bea Lacey MD [address] [place] [address] PCP - General Family Medicine 09/22/22 documented as of this encounter
--- OUTSIDE RECORDS SUMMARY | 2024-06-14 15:00 | XMS_ITS | Encounter Summary ---
Author Organization [employer] Address [address] [facility] 7t [place] [address] Care Team Providers Care Technology Auditor Name Role Phone Bea Lacey MD Primary Care Provider [phone] Reason for Visit * Reason Onset Date Comments Results 03/30/2023 Encounter Details Date Type Department Care Team ([facility] st Contact Info) Description 03/30/2023 Telephone [facility] MEDICINE [address] [place], [place] [phone] Bea Lacey MD [address] [place], [place] [phone] Results Social History Tobacco Use Types Packs/Day [...] [facility] ADULT DENTAL [address] [place] [address] Liliana Stephen 06/20/2024 8:45 AM EDT Telemedicine [facility] MED & PEDS [address] [place] [address] Bea Lacey MD [address] [place] [address] 07/26/2024 9:30 AM EDT Office Visit [facility] MED & PEDS [address] [place] [address] Bea Lacey MD [address] [place] [address] documented as of this encounter Visit Diagnoses Not on filedocumented in this encounter Additional Health Concerns Assessment Noted Time PHQ-9 Depression Total Score: 7 05/29/19 10:45 AM EDT documented as of this encounter Care Teams Technology Auditor Relationship Specialty Start Date End Date Bea Lacey MD [address] [place] [address] PCP - General Family Medicine 09/22/22 documented as of this encounter
--- OUTSIDE RECORDS SUMMARY | 2024-06-14 15:01 | XMS_ITS | Continuity of Care Document ---
Author Organization [facility] Address [address] [place] [address] [address], [address] [place] [address]- Care Team Providers Care High Density Press Operator Name Role Phone Bea Lacey MD Primary Care Physician [phone] Encounter [facility] Date(s): 05/11/24 - 06/10/24 [facility] [address] [place] [address] Drive [address] [place], [place] [address] Encounter Type: Triage Allergies, Adverse Reactions, Alerts No Known Medication Allergies Substance Criticality Severity Reaction Reaction Severity Status Grass Unable to assess criticality Intermittent watery eyes/runny nose Active Immunizations Given and Recorded Vaccine Date Status Refusal Reason [id number] 12y+ bivalent booster vax 12/08/21 Recorded SARS-CoV-2 (COVID-19) mRNA BNT-162b2 vac 12/24/20 Recorded SARS-CoV-2 (COVID-19) mRNA-1273 vaccine 05/27/20 R ecorded SARS-CoV-2 (COVID-19) mRNA-1273 vaccine 04/29/20 R ecorded pneumococcal 23-valent vaccine 04/26/12 Given influenza virus vaccine, inactivated 04/26/12 Give n Pneumococcal Vaccine (oldterm) 1 01/01/06 Given 1Result Comment: lot # [id number] EXP 08/20/06 PT INFO 09/04/04 Medications acetaminophen [...] 11 Refills, Maintenance, 12/13/23 12:27:00 PM EDT, [facility], Partial fill upon patient request if [...] 9:46:00 AM EDT, Route to Pharmacy Electronically, [facility], Partial fill upon patient request [...] 3 Refills, Maintenance, 02/03/24 8:19:00 AM EST, [facility], 172.72, cm, 01/30/24 9:29:00 EST, Height, [...] 3 Refills, Maintenance, 05/01/24 10:25:00 AM EDT, [facility], 172, cm, 05/01/24 8:22:00 EDT, Height, 88.5, kg, 04/05/24 8:14:00 EST,Dry Weight Start Date: 05/01/24 Status: Ordered Quantity: 180.0 Unit: tablet Repeat number: 1 lisinopril 10 mg oral tablet 10 mg, 1, tablet, By Mouth, Daily, # 90 tablet, Refills 4, Tot. Refills 4, Maintenance, 12/12/23 2:14:00 PM EDT, Route to Pharmacy Electronically, [facility], Partial fill upon patient request if [...] Refills, Maintenance, 11/02/22 4:26:00 PM EDT, Tablet, [facility], Partial fill upon patient request if [...] 3 Refills, Maintenance, 03/02/24 8:06:00 AM EST, [facility], 172.72, cm, 02/07/24 12:51:00 EST, Height, [...] Team Personnel Name: Darci Ayala RN Position: [facility] ED RN W/OE and Tasks Member Role: Primary Care Nurse Name: Niharika Reza RN Position: [facility] SN RN Member Role: Primary Care Nurse Name: Veronica Kapoor RN Position: [facility] RN Member Role: Primary Care Nurse Name: Paula Garcia RN Position: [facility] RN Member Role: Primary Care Nurse Name: Jocelyn Villanueva RN Position: [facility] SN RN Member Role: Primary Care Nurse Name: Roseann Sullivan RN Position: [facility] RN Member Role: Primary Care Nurse Name: Casimiro Alarcon RN Position: [facility] RN Member Role: Primary Care Nurse Name: Brenda Orr RN Position: [facility] RN Member Role: Primary Care Nurse Name: Chasidy Woodard RN Position: [facility] RN Member Role: Primary Care Nurse Name: Annalisa Aguilar RN Position: [facility] RN Member Role: Primary Care Nurse Name: Heavenly Sen RN Position: [facility] Picker Machine Operator Member Role: Primary Care Nurse Name: Nasima Garica NP Position: Reference Physician Member Role: Primary Care Nurse Address: [address] [place] [address]- [place] Telecom: Name: Bea Lacey MD Position: [facility] Outreach Member Role: PCP Address: [address] [place] [address]- [place] Tele[place]: Name: Itzel Tirado MD Position: [facility] Cardiology MD Member Role: Lifetime Consulting Physician Address: [address] [address]- [place] Telecom: Name: Elena Pyle RN Position: [facility] RN Member Role: Primary Care Nurse Name: Lalito Wheeler RN Position: [facility] RN Member Role: Primary Care Nurse Name: Beatriz Lawrence RN Position: [facility] SN RN Member Role: Primary Care Nurse Name: Dorothea Fong RN Position: [facility] SN RN Member Role: Primary Care Nurse Name: Get Galo MD Position: [facility] Renal MD Member Role: Lifetime Consulting Physician Address: [address] [facility] [address] [facility] [place] [address]- [place] Telecom: Name: Lucy Bradford RN Position: [facility] RN Member Role: Primary Care Nurse Name: Familia Rivas NP Position: Reference Physician Member Role: Primary Care Nurse Address: [address] [place], [place] [address], [place] [address]- Telecom: Care Team Related Persons Name: JOSE ALBERTO VARGAS Insurance Providers Guarantor name: SHERLY VARGAS Health Plan Information #: 1 Payer: MEDICARE PART B OUTPT Member Number: NA Policy Number: NA Group Number: NA Health Plan Information #: 2 Payer: [place] Member Number: NA Policy Number: NA Group Number: NA
--- OUTSIDE RECORDS SUMMARY | 2024-06-14 15:01 | XMS_ITS | Encounter Summary ---
Author Organization [employer] Address [address] [facility] [address] 7[address] [place] [address] Care Team Providers Care Roaster Supervisor Name Role Phone Bea Lacey MD Primary Care Provider [phone] Encounter Details Date Type Department Care Team (Late st Contact Info) Description 06/07/2023 Orders Only [facility] MEDICINE [address] [place], [place] [phone] ProviderTia MD Social History Tobacco Use Types [...] t he electric, gas, oil or water [employer] threatened to shut off services in your [...] 2:00 PM EDT Office Visit [facility] ADULT DENTAL [address] [place] [address] Liliana Stephen 06/20/2024 8:45 AM EDT Telemedicine [facility] MED & PEDS [address] [place] [address] Bea Lacey MD [address] [place] [address] 07/26/2024 9:30 AM EDT Office Visit [facility] MED & PEDS [address] [place] [address] Bea Lacey MD [address] [place] [address] documented as of this encounter Procedures Procedure Name Priority Date/Time Associated Diagnosis Comments COLONOSCOPY Routine 03/14/2014 12:17 PM EST documented in this encounter Results * Hm Colonoscopy (03/14/2014 12:17 PM EST) us Historical Provider HEALTH MAINTENANCE Final Result documented in this encounter Visit Diagnoses Not on filedocumented in this encounter Additional Health Concerns Assessment Noted Time PHQ-9 Depression Total Score: 20 024 10:22 AM EDT documented as of this encounter Care Teams Roaster Supervisor Relationship Specialty Start Date End Date Bea Lacey MD [address] [place] [address] PCP - General Family Medicine 09/22/22 documented as of this encounter
--- OUTSIDE RECORDS SUMMARY | 2024-06-14 15:01 | XMS_ITS | Encounter Summary ---
Author Organization [employer] Address [address] [facility] 7t [place] [address] Care Team Providers Care Consultant Technology Name Role Phone Bea Lacey MD Primary Care Provider [phone] Reason for Visit * Reason Onset Date Comments Medication Question 06/10/2023 Encounter Details Date Type Department Care Team ([facility] Contact Info) Description 06/10/2023 Telephone [facility] CHC MED & PEDS [address] [place], [place] [phone] Bea Lacey MD [address] [place], [place] [phone] Medication Question Social History Tobacco Use Types [...] 2:00 PM EDT Office Visit [facility] ADULT D[facility] [address] [place] [address] Liliana Stephen 06/20/2024 8:45 AM EDT Telemedicine [facility] MED & PEDS [address] [place] [address] Bea Lacey MD [address] [place] [address] 07/26/2024 9:30 AM EDT Office Visit [facility] MED & PEDS [address] [place] [address] Bea Lacey MD [address] [place] [address] documented as of this encounter Visit Diagnoses Not on filedocumented in this encounter Additional Health Concerns Assessment Noted Time PHQ-9 Depression Total Score: 20 024 10:22 AM EDT documented as of this encounter Care Teams Consultant Technology Relationship Specialty Start Date End Date Bea Lacey MD [address] [place] [address] PCP - General Family Medicine 09/22/22 documented as of this encounter
== END 2024-06-14 13:26 | disposition home or self-care (01) ==
LOC: HO.PMC 12:46
PROVIDERS: PCP Student in an Organized Health Care Education/Training Program; Visit Provider Anesthesiology
DX: G89.4 Chronic pain syndrome (principal); M53.3 Sacrococcygeal disorders, not elsewhere classified; M46.1 Sacroiliitis, not elsewhere classified; M54.51 Vertebrogenic low back pain; E11.65 Type 2 diabetes mellitus with hyperglycemia; Z45.1 Encounter for adjustment and management of infusion pump
CPT/HCPCS: 62370; 99213

== ENCOUNTER → 2024-06-14 12:45 | Outpatient (BNVA) | payer MEDICARE, MEDICAID, SELFPAY | PROVIDERS: PCP Student in an Organized Health Care Education/Training Program; Visit Provider Anesthesiology | DX: M53.3 Sacrococcygeal disorders, not elsewhere classified (principal); M46.1 Sacroiliitis, not elsewhere classified; M54.51 Vertebrogenic low back pain; E11.65 Type 2 diabetes mellitus with hyperglycemia; G89.29 Other chronic pain | CPT/HCPCS: 62370; 99212 ==

== ENCOUNTER 2024-06-21 12:49 | Outpatient (AMB) | payer MEDICARE, MEDICAID, SELFPAY ==
--- NOTE | 2024-06-21 13:02 | A.OFFVIS_ITS ---
Vital Signs 06/21/24 13:10 Height 5 ft 8 in Weight 198 lb BMI 30.1 BP 143/74 H Blood Pressure Location Lt brachial Position Sitting Pulse 80 Pulse Source Pulse Oximeter Pulse Oximetry (%) 96 Oxygen Delivery Method Room Air Intake Visit Reasons: Pump Adjustment Intake Note: Pain today 07/31 Kiln Placer Required: No Accompanied by: Self / Same As Patient Allergies grass pollen Allergy (Mild, Verified 06/21/24 13:11) unknown tree and shrub pollen Allergy (Mild, Verified 06/21/24 13:11) itchy eyes, sneeze, runny nose No Known Drug Allergies Allergy (Unknown, Verified 06/21/24 13:11) none plastic tape Allergy (Unknown, Uncoded 05/28/24 14:13) irritation HPI Comments Details: Malik is in my office today to adjust his pump. He reports some improvement with his pain. The pain pump was interrogated and doses of the medications were increased on basal rate the 08:00 o'clock in the morning increase of the medication was left as it was before. I will see him again in 1 week to adjust his pump again. Prior: History of bilateral paintech sacroiliac joint stabilization with fusion. He had significant improvement however he fell in his kitchen and started to experience lot of pain again. He was sent for the x-ray of the pelvis and it appears to be that although both implantation elements are in sacroiliac joints 1 of them got shifted vertical it to the upper portion of the joint and now has a lesser chance to provide enough of the space to form the sacroiliac bridge. Most likely that is why patient started to experience pain again. We decided to treat his pain with addition of the opioids into intrath ecal pain pump. For his next pump refill I will fill it up with hydromorphone 150 micro g per mL and bupivacaine 8 milligrams/mL. I will continue to increase concentration of hydromorphone until patient's satisfaction. To temporize his pain level now I will prescribe him short course of Percocet see as below. He is interested in sacroiliac joint fusion now performed by the surgeon with surgical screws. We will find out where this procedure can not be performed and we will refer patient there. He also would like to call [facility] SCS sales representative meats and ask him to increase stimulation levels on the machine Prior: This patient is very unfortunate gentleman who is suffering from multiple pain generators. He received multiple forms of treatment to concur the existing pain generators pain. He tried multiple sessions of physical therapy in the past and he continues from time to time to return to his home exercise program to help his pain. He tried multiple medications including NSAIDs muscle relaxants and opioids. NSAIDs give him severe side effects. He is very much concerned about addictive properties of opioids. He reports muscle relaxants help his pain minimally if any. He in the past was injected with multiple procedures including medial branch blocks, radiofrequency ablations, facet joint injections, and eventually he was not very satisfied with results of this injections. He was implanted with Nevro spinal cord stimulator which he reports helped his pain radiating into the bilateral lower extremities. He also reported axial back pain aggravated with sitting and flexing forward and on the MRI he was discovered with Modic type changes in the lumbar spine. Intraseptal procedure was performed with good results for pain aggravated with prolonged sitting however pain which is lower than the lumbar spine in the projection of his pelvis actually getting worse background of alleviated lumbar spine pain. To treat this condition he was implanted with intrathecal pain pump however the intrathecal pain pump was not very instrumental to alleviate his pain. He still receives intrathecal pain pump bupivacaine only however reports significant and advanced pain in the projection of the bilateral sacroiliac joints. He had MRI of the lumbar spine which did not demonstrate any red flags and he did have abdominal and pelvic CT scan which did not demonstrate in pelvis any abnormalities which could be suspected as the pain generators related to sacroiliac joint, sacral bones or iliac bones. 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, lumbar region PVD (peripheral vascular disease) Mood disorder On beta ruddy at home Benign essential tremor CVA (cerebral vascular accident) IDDM (insulin dependent diabetes mellitus) Sleep apnea Chronic renal insufficiency Myocardial infarction CHF (congestive heart failure) CAD (coronary artery disease) AAA (abdominal aortic aneurysm) Arrhythmia On anticoagulant therapy Elevated cholesterol HTN (hypertension) History of ischemic cardiomyopathy 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 Surgical History (Updated 05/21/24 @ 10:18 by Niki Ortiz RN) History of surgery History of surgery (~2023) Hx of brain surgery (05/10/24) Hx of shoulder surgery History of laparoscopic cholecystectomy (12/08/22) History of surgery History of surgery History of PTCA Hx of parathyroidectomy Hx of CABG History of hernia repair Hx of gastric bypass Hx of endoscopy History of colonoscopy Family History Father Hx of congenital heart disease Mother Hx of heat stroke Social History (Updated 05/21/24 @ 09:54 by Niki Ortiz RN) Household Members: None Housing: Apartment Are you a primary transitional care manager to a significant other at home: No Do you presently have visiting nurse or other home services: Yes (SPECIAL EDUCATION SUPERINTENDENT 2 hours per week) Alcohol intake: current Alcohol intake frequency: does not drink Comment: counts correct Patient Tobacco Use Status: Former Tobacco user Tobacco use type: Cigarette Second Hand Smoke Exposure: No Review of Systems Const All systems reviewed & are unremarkable except as noted in HPI and below ENT Reports Normal hearing present Neuro Reports Normal hearing present and Denies Abnormal speech present Physical Exam Vital Signs: Last Vital Signs Pulse 80 06/21/24 13:10 BP 143/74 H 06/21/24 13:10 Pulse Ox 96 06/21/24 13:10 Oxygen Delivery Method Room Air 06/21/24 13:10 BMI result Body Mass Index 30.1 Const General: cooperative, no acute distress, alert and well groomed Orientation/consciousness: patient oriented x3 HEENT Head: Yes normocephalic and Yes atraumatic Ears: hearing grossly normal bilaterally Eyes General: appearance normal, both eyes and all related structures Eyelids: Yes eyelids normal Pupils: Equal, round and reactive pupils present EOM: EOMs intact bilaterally Neck Neck: Yes normal visual inspection and Yes no JVD Resp Effort & Inspection: normal respiratory effort, able to speak in complete sentences and no audible wheezes Cardio Jugular venous distension: no JVD Back/Spine/Pelvis Other: Tenderness of palpation paraspinal spinal region in the entire spine cervical thoracic and lumbar. SLR is negative with foot dorsiflexion. Flexing forward aggravates the pain. Flexing backwards does not change the pain. James test, Gaenslen test, pelvic compression test, pelvic destruction test, positive on the left as well as on the right. Neuro General: patient oriented x3, moves all extremities and Normal light touch and pain sensation Cranial nerves: Yes Equal, round and reactive pupils present and Yes Normal hearing present Cognition (Neuro): normal cognition Speech: No Abnormal speech present Assessment & Plan Assessment & Plan (1) Chronic left sacroiliac joint pain: Code(s): M53.3 - Sacrococcygeal disorders, not elsewhere classified; G89.29 - Other chronic pain Category: Medical (2) Sacroiliitis: Code(s): M46.1 - Sacroiliitis, not elsewhere classified Category: Medical (3) Vertebrogenic low back pain: Code(s): M54.51 - Vertebrogenic low back pain Category: Medical (4) Chronic pain syndrome: Code(s): G89.4 - Chronic pain syndrome Category: Medical (5) Poorly controlled type 2 diabetes mellitus: Code(s): E11.65 - Type 2 diabetes mellitus with hyperglycemia Category: Medical Plan: Next appointment of the pump interrogation and adjustment will be scheduled in 1 week. If patient will become comfortable he would need to call and cancel this appointment. Plan Intrathecal pump adjustment. Intrathecal pain pump was interrogated today and it showed the patient was receiving 40 micro g of hydromorphone and 2.1 mg of bupivacaine the continuous dose as well as variable 08:30 to 08:45 22 micro g of hydromorphone and 1.2 mg of bupivacaine. The pump rate was adjusted and it was made with continuous rate 60 micro g of hydromorphone and 3.1 mg of bupivacaine the variable rate dose of 22.6 micro g of hydromorphone and 1.2 mg of bupivacaine remained the same. Coding Level of Care Code Est Pt Level 3 (51967) Procedure Only Diagnoses Chronic left sacroiliac joint pain M53.3; G89.29 Sacroiliitis M46.1 Vertebrogenic low back pain M54.51 Chronic pain syndrome G89.4 Poorly controlled type 2 diabetes mellitus E11.65
[2024-06-21 13:10] VITALS: BP 143/74; PULSE 80; O2SAT 96; BMI 30.1
--- OUTSIDE RECORDS SUMMARY | 2024-06-21 15:24 | XMS_ITS | Clinical Summary ---
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 Benign hypertension 12/30/2023 BPH (benign prostatic hyperplasia) 12/30/2023 Bilateral cataracts 12/30/2023 Bilateral tinnitus 12/30/2023 CVA (cerebral vascular accident) ([facility] V24, [facility] [place] V28) 12/30/2023 Heart failure with normal ej ection fraction ([facility] V24, [facility] V28) 12/30/2023 Hyperlipidemia 12/30/2023 History of parathyroidectomy 12/30/2023 CKD (chronic kidney disease) 12/30/2023 Type 2 diabetes mellitus wit h hyperglycemia ([facility] V24, [facility] V28) 12/30/2023 CAD in [place] artery 12/30/2023 Erectile dysfunction due to diseases [...] 1960 Diabetes: Annual Retina Eye Exam 1960 Hepatitis A Vaccines (1 of 2 - Risk 2-dose series) 05/01/1971 RSV Immunization Adult Patients (1 - Risk [...] Insurance MEDICARE MEDICAID - [place] Care Teams Hypoid Gear Tester Relationship Specialty Start Date End Date Bea Lacey MD [address] [place] [id number] PCP - General 04/04/23
--- OUTSIDE RECORDS SUMMARY | 2024-06-21 15:24 | XMS_ITS | Continuity of Care Document ---
Author Organization [facility] Address [address] [place] [address] [address], [address] [place] [address]- Care Team Providers Care Chief Deputy Sheriff Name Role Phone Bea Lacey MD Primary Care Physician [phone] Encounter [facility] Date(s): 05/21/24 - 06/20/24 [facility] [address] [place] [address] Drive [address] [place], [place] [address] Encounter Type: Triage Allergies, Adverse Reactions, Alerts No Known Medication Allergies Substance Criticality Severity Reaction Reaction Severity Status Grass Unable to assess criticality Intermittent watery eyes/runny nose Active Immunizations Given and Recorded Vaccine Date Status Refusal Reason [id number] 12y+ bivalent booster vax 12/08/21 Recorded SARS-CoV-2 (COVID-19) mRNA BNT-162b2 vac 12/24/20 Recorded SARS-CoV-2 (COVID-19) mRNA-1273 vaccine 05/27/20 R ecorded SARS-CoV-2 (COVID-19) mRNA-1273 vaccine 04/29/20 R ecorded pneumococcal 23-valent vaccine 04/26/12 Given influenza virus vaccine, inactivated 04/26/12 Give n Pneumococcal Vaccine (oldterm) 1 01/01/06 Given 1Result Comment: lot # [id number] EXP 08/20/06 PT INFO 09/04/04 Medications aspirin 81 mg oral tablet, chewable 81 mg, 1, tablet, Daily, Refills 0, Maintenance, 06/13/24 10:01:00 AM EDT, Partial fill upon patientrequest if the prescription is for a schedule II opioid drug. Start Date: 06/13/24 Status: Ordered Repeat number: 1 baclofen 20 [...] Date: 04/26/22 Status: Ordered Repeat number: 1 clonazePAM 0.5 [...] 11 Refills, Maintenance, 12/13/23 12:27:00 PM EDT, [facility], Partial fill upon patient request [...] 9:46:00 AM EDT, Route to Pharmacy Electronically, [facility], Partial fill upon patient request [...] 3 Refills, Maintenance, 02/03/24 8:19:00 AM EST, [facility], 172.72, cm, 01/30/24 9:29:00 EST, [...] Date: 03/10/22 Status: Ordered Repeat number: 1 Freestyle Lite [...] 3 Refills, Maintenance, 05/01/24 10:25:00 AM EDT, [facility], 172, cm, 05/01/24 8:22:00 EDT, Height, 88.5, kg, 04/05/24 8:14:00 EST,Dry Weight Start Date: 05/01/24 Status: Ordered Quantity: 180.0 Unit: tablet Repeat number: 1 lisinopril 10 mg oral tablet 10 mg, 1, tablet, By Mouth, Daily, # 90 tablet, Refills 4, Tot. Refills 4, Maintenance, 12/12/23 2:14:00 PM EDT, Route to Pharmacy Electronically, [facility], Partial fill upon patient request [...] Date: 04/21/21 Status: Ordered Repeat number: 1 nitroglycerin 0.4 mg sublingual tablet = 0.4 mg, Sublingual, Every 5 minutes, PRN Chest Pain, as needed not to exceed 3 doses/15 min--if pain persists, seek medical attention, # 100 tablet, 3 Refills, Maintenance, 11/02/22 4:26:00 PM EDT, Tablet, [facility], Partial fill upon patient request [...] 3 Refills, Maintenance, 03/02/24 8:06:00 AM EST, [facility], 172.72, cm, 02/07/24 12:51:00 EST, Height, 90, kg, 01/17/24 14:31:00 EST, Dry Weight Start Date: 03/02/24 Status: Ordered Quantity: 90.0 Unit: tablet Repeat number: 1 Xarelto 20 mg oral tablet 1 tablet = 20 mg, By Mouth, Daily before dinner, 0 Refills, Maintenance, 06/13/24 10:06:00 AM EDT, Partial fill upon patient request if the prescription is for a schedule II opioid drug. Start Date: 06/13/24 Status: Ordered Repeat number: 1 Problem List Condition Confirmation [...] Team Personnel Name: Darci Ayala RN Position: [facility] ED RN W/OE and Tasks Member Role: Primary Care Nurse Name: Niharika Reza RN Position: [facility] SN RN Member Role: Primary Care Nurse Name: Veronica Kapoor RN Position: [facility] RN Member Role: Primary Care Nurse Name: Joes RNPaula Position: [facility] RN Member Role: Primary Care Nurse Name: Jocelyn Villanueva RN Position: [facility] SN RN Member Role: Primary Care Nurse Name: Roseann Sullivan RN Position: [facility] RN Member Role: Primary Care Nurse Name: Agnes RNCasimiro Position: [facility] RN Member Role: Primary Care Nurse Name: Brenda Orr RN Position: [facility] RN Member Role: Primary Care Nurse Name: Chasidy Woodard RN Position: [facility] RN Member Role: Primary Care Nurse Name: Annalisa Aguilar RN Position: [facility] RN Member Role: Primary Care Nurse Name: Heavenly Sen RN Position: [facility] Hospital Litigation Paralegal Member Role: Primary Care Nurse Name: Radha HOG KILLER, Nasima Brown Position: Reference Physician Member Role: Primary Care Nurse Address: [address] [place] [address]- [place] Telecom: Name: Bea Lacey MD Position: [facility] Outreach Member Role: PCP Address: [address] [place] [address]- [place] Telecom: Name: Itzel Tirado MD Position: [facility] Cardiology MD Member Role: Lifetime Consulting Physician Address: [address] [facility] [address] [place] [address]- [place] Telecom: Name: Elena Pyle RN Position: [facility] RN Member Role: Primary Care Nurse Name: Lalito Wheeler RN Position: [facility] RN Member Role: Primary Care Nurse Name: Beatriz Lawrence RN Position: [facility] SN RN Member Role: Primary Care Nurse Name: Dorothea Fong RN Position: [facility] SN RN Member Role: Primary Care Nurse Name: Get Galo MD Position: [facility] Renal MD Member Role: Lifetime Consulting Physician Address: [address] [place] [address] [address] [facility] [place] [address]- Telecom: Name: Lucy Bradford RN Position: S RN Member Role: Primary Care Nurse Name: Familia Rivas NP Position: Reference Physician Member Role: Primary Care Nurse Address: [address] [place] [address]- Telecom: Care Team Related Persons Name: JOSE ALBERTO VARGAS Insurance Providers Guarantor name: SHERLY VARGAS Health Plan Information #: 1 Payer: MEDICARE PART B OUTPT Member Number: NA Policy Number: NA Group Number: NA Health Plan Information #: 2 Payer: [place] Member Number: NA Policy Number: NA Group Number: NA
--- OUTSIDE RECORDS SUMMARY | 2024-06-21 15:24 | XMS_ITS | Clinical Summary ---
Author Organization [facility] Address [address] [place] [phone] Phone Care Team Providers Care Granite Polisher Name Role Phone Lula Lacey MD Primary Care Provider [phone] Allergies Active Allergy Reactions Criticality Noted Date [...] Visit [facility] [address] [address] Get Galo MD [address] [address] Health Maintenance Due Date Last [...] ug/dl RTAMA 09/21/2018 us Rtama Conversion [facility] [id number] LICITED RESULTS Final Result RTAMA from Last 3 Months or Most Recently Relevant to Health Maintenance Insurance Medicare Medicaid [place] Medicaid [place] Care Teams Granite Polisher Relationship Specialty Start Date End Date Lula Lacey MD [address] [place] [address] ZACH CAMACHO PCP - General Internal Medicine 01/25/24
== END 2024-06-21 13:21 | disposition home or self-care (01) ==
PROVIDERS: PCP Student in an Organized Health Care Education/Training Program; Visit Provider Anesthesiology
DX: G89.4 Chronic pain syndrome (principal); M53.3 Sacrococcygeal disorders, not elsewhere classified; M46.1 Sacroiliitis, not elsewhere classified; M54.51 Vertebrogenic low back pain; Z45.1 Encounter for adjustment and management of infusion pump; E11.65 Type 2 diabetes mellitus with hyperglycemia
CPT/HCPCS: 62370; 99213

== ENCOUNTER → 2024-06-21 12:49 | Outpatient (BNVA) | payer MEDICARE, MEDICAID, SELFPAY | PROVIDERS: PCP Student in an Organized Health Care Education/Training Program; Visit Provider Anesthesiology | DX: Z45.89 Encounter for adjustment and management of other implanted devices (principal); F11.20 Opioid dependence, uncomplicated; M53.3 Sacrococcygeal disorders, not elsewhere classified; M46.1 Sacroiliitis, not elsewhere classified; M54.51 Vertebrogenic low back pain; E11.65 Type 2 diabetes mellitus with hyperglycemia; G89.29 Other chronic pain; G89.4 Chronic pain syndrome | CPT/HCPCS: 62370; 99212 ==

== ENCOUNTER 2024-06-28 12:40 | Outpatient (AMB) | payer MEDICARE, MEDICAID, SELFPAY ==
[2024-06-28 12:49] VITALS: BP 111/64; PULSE 81; RESP 16; O2SAT 93; BMI 30.1
--- NOTE | 2024-06-28 12:49 | MHC.OFFVIS ---
Vital Signs 06/28/24 12:49 Height 5 ft 8 in Weight 198 lb BMI 30.1 BP 111/64 Blood Pressure Location Lt brachial Position Sitting Respiration 16 Pulse 81 Pulse Source Pulse Oximeter Pulse Oximetry (%) 93 Oxygen Delivery Method Room Air Intake Visit Reasons: 1 week FU Fiction Writer Required: No Allergies grass pollen Allergy (Mild, Verified 06/28/24 12:50) unknown tree and shrub pollen Allergy (Mild, Verified 06/28/24 12:50) itchy eyes, sneeze, runny nose No Known Drug Allergies Allergy (Unknown, Verified 06/28/24 12:50) none plastic tape Allergy (Unknown, Uncoded 06/28/24 12:50) irritation Medication List - Last Reconciled 06/28/24 by Gini Edmondson LPN aspirin (Adult Aspirin Regimen) 81 mg PO DAILY baclofen 20 mg PO TID bisacodyl (Dulcolax (bisacodyl)) 10 mg (2 x 5 mg) PO ONCE 2 days bupropion HCl XL 300 mg PO QAM calcium carbonate-vitamin D3 600 mg-10 mcg (400 unit) 1 tab PO BID cetirizine 1 tab PO .DAILY@NOON cholecalciferol (vitamin D3) (Vitamin D3) 25 mcg PO DAILY clonazepam 0.5 mg PO TID dapagliflozin propanediol (Farxiga) 10 mg PO DAILY diphenhydramine HCl 50 mg (2 x 25 mg) PO Q6H PRN 3 days docusate sodium 200 mg PO BID eplerenone 25 mg PO .DAILY@NOON esomeprazole magnesium 40 mg PO BID famotidine 40 mg PO BEDTIME finasteride 5 mg PO DAILY flash glucose sensor (FreeStyle Verito 2 Sensor kit) As directed fluticasone propionate 50 mcg/actuation 1 spray intranasal DAILY gabapentin 300 mg PO DAILY glipizide 5 mg PO DAILY hydroxyzine pamoate 25 mg PO BID PRN isosorbide mononitrate ER 2 tabs PO QAM L.acidophil-L.plantar-Bifido 7 25 billion cell (up4 Probiotics Adult 50 Plus) 1 cap PO BID 14 days lisinopril 10 mg PO DAILY melatonin 10 mg PO BEDTIME methylnaltrexone (Relistor) 450 mg (3 x 150 mg) PO QAM mirtazapine 1 tab PO BEDTIME naloxone 4 mg/actuation 4 mg intranasal Q3M PRN 1 day nitroglycerin 0.4 mg sublingual ONCE PRN pen needle, diabetic As directed pilocarpine HCl 5 mg PO BID plecanatide (Trulance) 3 mg PO DAILY polyethylene glycol 3350 (Miralax) 17 grams PO DAILY 1 day prazosin 5 mg PO DAILY primidone 250 mg PO BID rivaroxaban (Xarelto) 20 mg PO DAILY@1700 rosuvastatin 40 mg PO DAILY sertraline 150 mg PO BEDTIME sodium,potassium,mag sulfates 17.5-3.13-1.6 gram (Suprep Bowel Prep Kit) DILUTE each bottle with 16oz of water; drink first bottle 5pm evening before procedure AND second bottle at 11pm; follow each bottle with at least 32 oz.of water within 1 hour after each bottle sucralfate 1 g PO BID tamsulosin 0.4 mg PO .BID@NOON+BEDTIME torsemide 20 mg PO DAILY HPI Comments Details: Malik is in my office today to adjust his pump. He reported today than in the past 48 hours he experienced nausea and vomiting approximately at 14:00 in the afternoon. It is unlikely the results of the pain pump bolus which is automatically administered to him at 08:15. Patient thinks that his nausea and vomiting is related to his cranial surgery he received several months ago. The pump was interrogated and basal rate was left the same 59.90 micro g in 24 hours. The bolus dose was increased from 22.6 micro g to 30 micro g which will bring his total dose from 82.5 micro g a day to 89.91 micro g a day. I recommended the patient to get contacted with his neurosurgeon. Theoretically speaking escalation of the intrathecal opioid medication may result in side effects such as nausea and vomiting however it is very unlikely that he received this nausea and vomiting only at the last time before he would need to see me. For the 1st portion of the week before that time he did not complain on any nausea and vomiting. I recommended the patient to schedule an appointment with me after he will clear out with his neurosurgeon whether or not his nausea and vomiting related to the cranial surgery. Prior: History of bilateral paintech sacroiliac joint stabilization with fusion. He had significant improvement however he fell in his kitchen and started to experience lot of pain again. He was sent for the x-ray of the pelvis and it appears to be that although both implantation elements are in sacroiliac joints 1 of them got shifted vertical it to the upper portion of the joint and now has a lesser chance to provide enough of the space to form the sacroiliac bridge. Most likely that is why patient started to experience pain again. We decided to treat his pain with addition of the opioids into intrathecal pain pump. For his next pump refill I will fill it up with hydromorphone 150 micro g per mL and bupivacaine 8 milligrams/mL. I will continue to increase concentration of hydromorphone until patient's satisfaction. To temporize his pain level now I will prescribe him short course of Percocet see as below. He is interested in sacroiliac joint fusion now performed by the surgeon with surgical screws. We will find out where this procedure can not be performed and we will refer patient there. He also would like to call [employer] customer engagement representative and ask him to increase stimulation levels on the machine Prior: This patient is very unfortunate gentleman who is suffering from multiple pain generators. He received multiple forms of treatment to concur the existing pain generators pain. He tried multiple sessions of physical therapy in the past and he continues from time to time to return to his home exercise program to help his pain. He tried multiple medications including NSAIDs muscle relaxants and opioids. NSAIDs give him severe side effects. He is very much concerned about addictive properties of opioids. He reports muscle relaxants help his pain minimally if any. He in the past was injected with multiple procedures including medial branch blocks, radiofrequency ablations, facet joint injections, and eventually he was not very satisfied with results of this injections. He was implanted with foodjunkyro spinal cord stimulator which he reports helped his pain radiating into the bilateral lower extremities. He also reported axial back pain aggravated with sitting and flexing forward and on the MRI he was discovered with Modic type changes in the lumbar spine. Intraseptal procedure was performed with good results for pain aggravated with prolonged sitting however pain which is lower than the lumbar spine in the projection of his pelvis actually getting worse background of alleviated lumbar spine pain. To treat this condition he was implanted with intrathecal pain pump however the intrathecal pain pump was not very instrumental to alleviate his pain. He still receives intrathecal pain pump bupivacaine only however reports significant and advanced pain in the projection of the bilateral sacroiliac joints. He had MRI of the lumbar spine which did not demonstrate any red flags and he did have abdominal and pelvic CT scan which did not demonstrate in pelvis any abnormalities which could be suspected as the pain generators related to sacroiliac joint, sacral bones or iliac bones. 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, lumbar region PVD (peripheral vascular disease) Mood disorder On beta ruddy at home Benign essential tremor CVA (cerebral vascular accident) IDDM (insulin dependent diabetes mellitus) Sleep apnea Chronic renal insufficiency Myocardial infarction CHF (congestive heart failure) CAD (coronary artery disease) AAA (abdominal aortic aneurysm) Arrhythmia On anticoagulant therapy Elevated cholesterol HTN (hypertension) History of ischemic cardiomyopathy 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 Surgical History (Updated 05/21/24 @ 10:18 by Niki Ortiz, CRISTELA) History of surgery History of surgery (~2023) Hx of brain surgery (05/10/24) Hx of shoulder surgery History of laparoscopic cholecystectomy (12/08/22) History of surgery History of surgery History of PTCA Hx of parathyroidectomy Hx of CABG History of hernia repair Hx of gastric bypass Hx of endoscopy History of colonoscopy Family History (Reviewed 01/02/24 @ 12:43 by Priscilla Mijares [facility]) Father Hx of congenital heart disease Mother Hx of heat stroke Social History (Updated 05/21/24 @ 09:54 by Niki Ortiz, CRISTELA) Household Members: None Housing: Apartment Are you a primary clinical care manager to a significant other at home: No Do you presently have visiting nurse or other home services: Yes ([employer] 2 hours per week) Alcohol intake: current Alcohol intake frequency: does not drink Comment: counts correct Patient Tobacco Use Status: Former Tobacco user Tobacco use type: Cigarette Second Hand Smoke Exposure: No Review of Systems Const All systems reviewed & are unremarkable except as noted in HPI and below ENT Reports Normal hearing present Neuro Reports Normal hearing present and Denies Abnormal speech present Physical Exam Vital Signs: Last Vital Signs Pulse 81 06/28/24 12:49 Resp 16 06/28/24 12:49 BP 111/64 06/28/24 12:49 Pulse Ox 93 06/28/24 12:49 Oxygen Delivery Method Room Air 06/28/24 12:49 BMI result Body Mass Index 30.1 Const General: cooperative, no acute distress, alert and well groomed Orientation/consciousness: patient oriented x3 HEENT Head: Yes normocephalic and Yes atraumatic Ears: hearing grossly normal bilaterally Eyes General: appearance normal, both eyes and all related structures Eyelids: Yes eyelids normal Pupils: Equal, round and reactive pupils present EOM: EOMs intact bilaterally Neck Neck: Yes normal visual inspection and Yes no JVD Resp Effort & Inspection: normal respiratory effort, able to speak in complete sentences and no audible wheezes Cardio Jugular venous distension: no JVD Back/Spine/Pelvis Other: Tenderness of palpation paraspinal spinal region in the entire spine cervical thoracic and lumbar. SLR is negative with foot dorsiflexion. Flexing forward aggravates the pain. Flexing backwards does not change the pain. James test, Gaenslen test, pelvic compression test, pelvic destruction test, positive on the left as well as on the right. Neuro General: patient oriented x3, moves all extremities and Normal light touch and pain sensation Cranial nerves: Yes Equal, round and reactive pupils present and Yes Normal hearing present Cognition (Neuro): normal cognition Speech: No Abnormal speech present Assessment & Plan Assessment & Plan (1) Chronic left sacroiliac joint pain: Code(s): M53.3 - Sacrococcygeal disorders, not elsewhere classified; G89.29 - Other chronic pain Category: Medical (2) Sacroiliitis: Code(s): M46.1 - Sacroiliitis, not elsewhere classified Category: Medical (3) Vertebrogenic low back pain: Code(s): M54.51 - Vertebrogenic low back pain Category: Medical (4) Chronic pain syndrome: Code(s): G89.4 - Chronic pain syndrome Category: Medical (5) Poorly controlled type 2 diabetes mellitus: Code(s): E11.65 - Type 2 diabetes mellitus with hyperglycemia Category: Medical Plan Intrathecal pain pump adjustment see as above. The patient will schedule appointment after he will clear out his situation with nausea and vomiting with his neurosurgeon. After that he will schedule appointment with me.. Coding Level of Care Code Est Pt Level 3 (58568) Diagnoses Chronic left sacroiliac joint pain M53.3; G89.29 Sacroiliitis M46.1 Vertebrogenic low back pain M54.51 Chronic pain syndrome G89.4 Poorly controlled type 2 diabetes mellitus E11.65
--- OUTSIDE RECORDS SUMMARY | 2024-06-28 13:47 | XMS_ITS | Encounter Summary ---
Author Organization [employer] Address [address] [place] [address] Care Team Providers Care Machine Egg Washer Name Role Phone Bea Lacey MD Primary Care Provider [phone] Encounter Details Date Type Department Care Team ([facility] Contact Info) Description 05/21/2024 Telephone [facility]EDS [address] [place], [place] [phone] Bea Lacey MD [address] [place], [place] [phone] Social History Tobacco Use Types Packs/Day Years [...] Care Team (Late st Contact Info) Description 07/03/2024 11:00 AM EDT Medication Management [facility] MED & PEDS [address] [place] [address] Mariely Dennison PharmD [address] [place] [address] 07/26/2024 9:30 AM EDT Office Visit [facility] MED & PEDS [address] [place] [address] Bea Lacey MD [address] [place] [address] 08/06/2024 1:00 PM EDT Office Visit [facility] ADULT DENTAL [address] [place] [address] Sebastián Quintero DDS [address] [place] [address] 12/14/2024 2:00 PM EDT Office Visit [facility] ADULT [facility]ENT[facility] [address] [place] [address] Daniele Barlow documented as of this encounter Visit Diagnoses Not on filedocumented in this encounter Additional Health Concerns Assessment Noted Time PHQ-9 Depression Total Score: 20 024 10:22 AM EDT documented as of this encounter Care Teams Machine Egg Washer Relationship Specialty Start Date End Date Bea Lacey MD [address] [place] [phone] PCP - General Family Medicine 09/22/22 documented as of this encounter
--- OUTSIDE RECORDS SUMMARY | 2024-06-28 13:47 | XMS_ITS | Clinical Summary ---
Author Organization [employer] Address [address] [facility] 7t [place] [address] Care Team Providers Care Nuclear Control Operator Name Role Phone Bea Lacey MD Primary Care Provider [phone] Allergies Active Allergy Reactions Criticality Noted Date [...] 1 tablet by mouth at bedtime. Active Blood Pressure Monitor kit Check BP daily 1 kit 023 Active Alcohol Swabs (Alcohol Pads) 70 % pads 1 Units 3 times daily. 100 each Active fluticasone (Flonase) 50 MCG/ACT nasal spray INHALE ONE SPRAY IN EACH NOSTRIL TWICE DAILY NEEDED FOR ALLERGIES 48 g 4 024 Active insulin pen needle (BD Pen Needle Flores U/F) 32G x 4 mm misc USE ONCE DAILY 100 each Active esomeprazole (NexIUM) [address] capsule TAKE ONE CAPSULE TWICE DAILY IN THE MORNING AND AT BEDTIME Active HYDROcodone-aceta minophen (Boston) 5-325 MG tablet Take 1 tablet by mouth every 6 (six) hours if needed. Active Methylnaltrexone Buda (Relistor) 150 MG tablet Active methylPREDNISolon e [...] mg) by mouth before lunch. 30 tablet 2025 Active glipiZIDE (Glucotrol) 5 MG tablet Take 1 tablet (5 mg) by mouth Once per day. 30 tablet /06/ 2026 Active Blood Glucose Monitoring Suppl (FreeStyle Bement Lite) w/Device kit TEST BLOOD SUGAR DAILY 1 kit 025 Active glucose blood (FREESTYLE LITE) test stripIndications: Type 2 diabetes mellitus with hyperglycemia ([facility]/HCC) Test sugars daily 100 strip 11 Active FreeStyle lancets 1 each by Other route Once per day. 100 each 12 025 2025 Active Continuous Glucose Sensor (FreeStyle Verito 2 Sensor) miscIndications:T ype 2 diabetes mellitus with hyperglycemia (CMS/HCC) USE DIRECTED AND CHANGE EVERY 14 DAYS 2 each 3 025 Active polyethylene glycol, PEG, 3350 (MiraLax) 17 [...] EVERY MORNING 90 tablet 3 025 Active primidone (Mysoline) 250 MG tabletIndications [...] THE EVENING 90 tablet 1 025 Active chlorhexidine (Peridex) 0.12 % solution Swish 15 mL morning and night for 1 minute. Spit, do not swallow. Do not eat or drink for 30 minutes following use. 473 mL 025 Active pseudoephedrine ER (Sudafed-12 Hour) 120 MG 12 hr tablet TAKE ONE TABLET EVERY TWELVE HOURS NEEDED FOR CONGESTION 60 tablet 025 Active chlorhexidine (Peridex) 0.12 % solution RINSE FOR 30 SECONDS WITH A HALF OUNCE (15ML) TWICE DAILY AFTER MEALS. SPIT OUT--DO NOT SWALLOW. 473 mL 023 2024 Discontinued clonazePAM (KlonoPIN) 0.5 MG tabletIndications :Essential tremor TAKE ONE TABLET THREE TIME DAILY IN THE MORNING, AT NOON, AND IN THE EVENING 90 tablet 1 025 2024 Discontinued pseudoephedrine ER (Sudafed-12 Hour) 120 MG 12 hr tablet Take 1 tablet (120 mg) by mouth every 12 (twelve) hours if needed for congestion. 60 tablet 025 2024 Discontinued Active Problems Problem Noted [...] to surgery has appointment next week at [place]. On examination no warning signs Chronic abdominal [...] 3 secondary to diabetes 01/28/[address] [facility] artery 01/28/2022 Type 2 diabetes mellitus wit [...] 01/28/2022 Peripheral vascular disease 01/28/2022 Osteoporosis 01/28/2022 S/P CABG x 4 01/28/2022 Lumbar [...] dependence 01/28/2022 Continuous opioid dependence 01/28/2022 08/05/2022 Obstructive sleep apnea syndrome 01/28/2022 06/15/2024 Encounters Date Type Department Care Team Description 06/26/2024 Telephone [facility] ADULT DENTAL [address] [place] [address] Sebastián Quintero DDS returning call RCT appt 06/21/2024 Refill [facility] [address] [place] [address] Bea Lacey MD 06/20/2024 8:45 AM EDT Telemedicine [facility] [address] [place] [address] Bea Lacey MD Diverticulitis (Primary Dx); Type 2 diabetes mellitus with hyperglycemia, without long-term current use of insulin (CMS/HCC) 06/20/2024 Travel 06/19/2024 Orders Only [facility] [address] [place] [address] Bea Lacey MD Type 2 diabetes mellitus with other circulatory complication, without long-term current use of insulin (CMS/HCC) (Primary Dx) 06/15/2024 2:00 PM EDT Office Visit [facility]ULT [facility] [address] [place] [address] Liliana Stephen 06/14/2024 Telephone [facility] MED[facility]INE [address] [place] [address] Bea Lacey MD Durable Medical Equipment 06/04/2024 Telephone [facility] MED[facility] [address] [place] [address] Baylee De La Torre, PharmD 06/01/2024 1:00 PM EDT Office Visit [facility] [address] [place] [address] Adeola Spencer MD Type 2 diabetes mellitus with other circulatory complication, without long-term current use of insulin (CMS/HCC) (Primary Dx); Multiple episodes of hypoglycemia; Chronic constipation 06/01/2024 Travel 05/31/2024 Telephone [facility] [address] [place] [address] [place] [address] Bea Lacey MD Medication Question 05/29/2024 Refill [facility] [address] [place] [address] Bea Lacey MD Essential tremor 05/29/2024 Refill [facility] [address] [place] [address] Gordon Mills MD Gastroesophageal reflux disease without esophagitis 05/28/2024 Telephone [facility] [address] [place] [address] Bea Lacey MD Referral 05/26/2024 Refill [facility] [address] [place] [address] Bea Lacey MD Chronic idiopathic constipation 05/21/2024 Telephone [facility] [address] [place] [address] Bea Lacey MD Referral 05/21/2024 Telephone [facility] [address] [place] [address] Bea Lacey MD 05/01/2024 Refill [facility] [address] [place] [address] eBa Lacey MD Chronic allergic rhinitis 04/25/2024 11:30 AM EST Telemedicine [facility] [address] [place] [address] Bea Lacey MD Rib pain on right side (Primary Dx) 04/25/2024 Travel 04/23/2024 Refill [facility] [address] [place] [address] Bea Lacey MD Gastroesophageal reflux disease without esophagitis; Anxiety 04/19/2024 1:00 PM EST Office Visit [facility] [address] [place] [address] Paula Nichols, DMD 04/04/2024 Refill [facility] [address] [place] [address] Bea Lacey MD Essential tremor 04/03/2024 Telephone [facility] [address] [place] [address] Bea Lacey MD Nurse Triage from Last 3 Months Immunizations Name Administration [...] is your housing situation today? I have zeo abreu 12/08/[address] you [...] Sign Reading Time Taken Comments Blood Pressure 130/76 06/15/2024 2:00 PM EDT Pulse 76 06/01/2024 1:04 PM [...] Description 07/03/2024 11:00 AM EDT Medication Management [facility] [address] [place] [address] Mariely Dennison, PharmD [address] [place] [address] 07/26/2024 9:30 AM EDT Office Visit [facility] [address] [place] [address] Bea Lacey MD [address] [place] [address] 08/06/2024 1:00 PM EDT Office Visit [facility] [address] [place] [address] Sebastián Quintero DDS [address] [place] [address] 12/14/2024 2:00 PM EDT Office Visit [facility] [address] [place] [address] Daniele Barlow Health Maintenance Due Date Last Done Comments [...] Colonoscopy 03/14/2024 03/14/2014 Colorectal Cancer Screening 03/14/2024 Depression Screening 06/02/2024 06/03/2023, 06/03/19 Dental X-Ray: Bitewings 11/09/2024 11/09/19, 12/22/2022, 09/30/2022 Lipid Panel 11/09/2024 11/10/2023, 03/25, 11/09/2022, Additional history exists Diabetes: Hemoglobin A1C 12/01/2024 025, 11/10/2023, 03/30/2023, Additional history exists Dental Oral Exam 12/16/2024 06/15/2024, , 05/05/2023, Additional history exists Dental Prophylaxis 12/16/2024 06/15/2024, 0 11/09/2023, 05/05/2023, Additional history exists Tobacco Screening 06/15/2025 06/15/2024 Dental X-Ray: Full Mouth 11/09/2026 11/09/2023 DTaP/Tdap/Td [...] Procedure Name Priority Date/Time Associated Diagnosis Comments PERIODIC ORAL EVALUATION - ESTABLISHED PATIENT Routine 06/15/2024 2:00 PM EDT ORAL HYGIENE INSTRUCTIONS Routine 06/15/2024 2:00 PM EDT CASE PRESENTATION, DETAILED AND EXTENSIVE TREATMENT PLANNING Routine 06/15/2024 2:00 PM EDT PROPHYLAXIS - ADULT Routine 06/15/2024 2 :00 PM EDT POCT GLYCATED HEMOGLOBIN, TOTAL Routine 06/01/2024 1:53 [...] SURF, POSTERIOR Routine 04/19/2024 1:00 PM EST LIPID PANEL, STANDARD Routine 11/10/2023 11:22 AM EDT Type 2 diabetes mellitus without complication, without long-term current use of insulin (CMS/HCC) INTRAORAL - COMPLETE SERIES OF RADIOGRAPHIC IMAGES Routine 11/09/2023 11:00 AM EDT RAUL HISTORICAL HEPATITIS C AB W/REFL TO HCV RNA, QN, PCR Routine 10/15/2019 1:23 PM EDT HM COLONOSCOPY Routine 03/14/2014 12:17 PM EST from Last 3 Months or Most Recently Relevant to Health Maintenance Results * POCT HGB A1C (06/01/2024 1:53 PM EDT) Hemoglobin A1C 6.0 4.0 - 6.0 % QC Media Lot # [id number] Lot# Expiration Date [id number] Blood 06/01/2024 1:53 PM EDT Adeola Spencer MD POINT OF CARE TEST ENTER/EDIT ORDERABLES Final Result * (ABNORMAL) POCT Glucose (06/01/2024 1:53 PM EDT) Glucose Blood, POC 228(A) 60 - 200 mg/dL QC Media Lot # [id number] Lot# Expiration Date [id number] Blood Capillary blood specimen / Unknown 06/01/2024 1:53 PM EDT Adeola Spencer MD POINT OF CARE TEST ENTER/EDIT ORDERABLES Final Result * TSH W/Reflex to FT4 (06/01/2024 1:39 PM EDT) TSH reflex Free T4 1.48 0.32 - 4.0 uIU/mL [facility] Blood Venous blood specimen / Unknown 06/01/2024 1:39 PM EDT 06/01/2024 2:14 PM EDT Adeola Spencer MD LAB BLOOD ORDERABLES Final Re sult [facility] [address] [place] [phone] * (ABNORMAL) CBC auto differential (06/01/2024 1:39 PM EDT) White Blood Count 7.6 4.8 - 10.8 X10*3/uL [facility] Red Blood Count 4.98 4.60 - 5.80 X10*6/uL [facility] Hemoglobin 13.1(L) 14.0 - 18.0 g/dl [facility] Hematocrit 41.9(L) 42.0 - 52.0 % [facility] Mean Corpuscular Volume 84.1 80.0 - 98.0 fL [facility] Mean Corpuscular Hemoglobin 26.3(L) 27.0 - 33.0 pg [facility] Mean Corpuscular HGB Conc 31.3 31.0 - 36.0 g/dl [facility] Red Cell Distribution Width 17.1(H) 11.0 - 16.0 % [facility] Platelet Count 212 160 - 400 X10*3/uL [facility] Mean Platelet Volume 11.3 9.4 - 12.4 fL [facility] Neutrophils Percent Auto 61.0 45 - 73 % [facility] Imm Gran Pct Auto 0.3 0.0 - 0.4 % [facility] Lymphocytes Percent Auto 27.2 20 - 40 % [facility] Monocytes Percent Auto 8.2 2 - 11 % [facility] Eosinophils Percent Auto 2.8 0 - 4 % [facility] Basophils Percent Auto 0.5 0 - 2 % [facility] NRBC Pct Auto 0.0 0.0 - 0.2 /100WBC [facility] Neutrophils Absolute Auto 4.6 2.0 - 8.3 x10*3/uL [facility] Imm Gran Abs Auto 0.02 0.00 - 0.03 X10*3/uL [facility] Lymphocytes Absolute Auto 2.1 1.2 - 4.9 X10*3/uL [facility] Monocytes Absolute Auto 0.6 0.1 - 1.2 X10*3/uL [facility] Eosinophils Absolute Auto 0.2 0.0 - 0.4 X10*3/uL [facility] Basophils Absolute Auto 0.0 0.0 - 0.2 X10*3/uL [facility] NRBC Abs Auto 0.000 0.0 - 0.012 X10*3/uL [facility] Blood Venous blood specimen / Unknown 06/01/2024 1:39 PM EDT 06/01/2024 2:14 PM EDT us Adeola Spencer MD LAB BLOOD ORDERABLES Final Re sult Performing Organization Address [facility] Co de Phone Number [facility] [address] [place] [phone] * (ABNORMAL) Basic Metabolic Panel (06/01/2024 1:39 PM EDT) Sodium 140 135 - 145 mmol/L [facility] Potassium 4.0 3.3 - 5.1 mmol/L [facility] Chloride 104 96 - 108 mmol/L [facility] Carbon Dioxide 27 22 - 29 mmol/L [facility] Anion Gap 13 12 - 20 [facility] Urea Nitrogen (BUN) 20(H) 9 - 16 mg/dL [facility] Creatinine, Serum 0.98 0.5 - 1.4 mg/dL [facility] Estimated Glomerular Filt Rate >60 [facility] Comment:Chronic Kidney Disea se: Estimated GFR < 60 mL/min/1.69z4Syztdj Kidney Disease: Estimated GFR < 15 mL/min/1.73m2 Glucose 169(H) 60 - 115 mg/dL [facility] Calcium 8.9 8.4 - 10.2 mg/dL [facility] Blood Venous blood specimen / Unknown 06/01/2024 1:39 PM EDT 06/01/2024 2:14 PM EDT us Adeola Spencer MD LAB BLOOD ORDERABLES Final Re sult Performing Organization Address [facility]/ZIP Co de Phone Number [facility] [address] [place] [phone] [phone] * Lipid Panel, Standard (11/10/2023 11:22 AM EDT) Triglycerides 76 <150 mg/dL [facility] Comment:Desirable Triglyceri de: less than 150 mg/dLBorderline High Triglyceride 150-199 mg/dLHigh Triglyceride: 200-499 mg/dLVery High Triglyceride: greater than or equal to 5OO mg/dL Cholesterol 110 <200 mg/dL [facility] Comment:Desirable Cholestero l: less than 200 mg/dLBorderline High Cholesterol: 200-239 mg/dLHigh Cholesterol: greater than 239 mg/dL LDL Cholesterol Calculated 50 <100 mg/dL [facility] Comment:Desirable LDL: less than 100 mg/dLNear Optimal/Above Optimal LDL: 110- 129 mg/dLBorderline High LDL: 130-159 mg/dLHigh LDL: 160-189 mg/dLVery High LDL: greater than or equal to 190 mg/dL HDL Cholesterol 45 >40 mg/dL [facility] Comment:Desirable HDL: great er than 40 mg/dL Note: This HDL assay may give artificially low results in patients with liver disease. Blood Venous blood specimen / Unknown 11/10/2023 11:22 AM EDT 11/10/2023 2:56 PM EDT us Bea Lacey MD LAB BLOOD ORDERABLES Final Resul t [facility] [address] [place] [phone] [phone] * HEPATITIS C AB W/REFL TO [...] a test for HCV RNA (test code 30600) is suggested. ?? For additional information please refer to http://education.[employer].Corrigo/faq/WZR37t6 (This link is being provided for informational/ educational purposes only.) ?? 10/15/2019 1:23 PM EDT Gordon Rocha MD HISTORICAL/NON ORD ERABLE LABS Final Result [facility] [address] * Hm Colonoscopy (03/14/2014 12:17 PM EST) Historical Provider HEALTH MAINTENANCE Final Result from Last 3 Months or Most Recently Relevant to Health Maintenance Insurance MEDICARE Member Subscriber Plan / Payer (Ef fective 2022-Present) Name:Malik Maki Member ID:[id number] Relation to Subscriber:Self Name:Malik Maki Subscriber ID:[id number] Payer ID:STATE Group ID:Not on file Type:Medicare Address: [facility] [address] [phone] [facility] STAND ADULT * Guarantor: Malik Maki Account Type Relation to Patient Date of Phone Billing Address Personal/Family Self [address] [facility] [address] Care Teams Nuclear Control Operator Relationship Specialty Start Date End Date Bea Lacey MD [address] [place] [phone] PCP - General Family Medicine 09/22/22
--- OUTSIDE RECORDS SUMMARY | 2024-06-28 13:47 | XMS_ITS | Encounter Summary ---
Author Organization [employer] Address [address] [facility] 7t [place] [address] Care Team Providers Care Regional Ehs Manager Name Role Phone Bea Lacey MD Primary Care Provider [phone] Reason for Visit * Reason Onset Date Comments Results 03/30/2023 Encounter Details Date Type Department Care Team ([facility] st Contact Info) Description 03/30/2023 Telephone [facility] MEDICINE [address] [place] [address] Bea Lacey MD [address] [place], [place] [phone] Results Social History Tobacco Use Types Packs/Day [...] Description 07/03/2024 11:00 AM EDT Medication Management [facility] [address] [place] [address] Mariely Dennison, PharmD [address] [place] [address] 07/26/2024 9:30 AM EDT Office Visit [facility] [address] [place] [address] Bea Lacey MD [address] [place] [address] 08/06/2024 1:00 PM EDT Office Visit [facility] ADULT DENTAL [address] [place] [address] Sebastián Quintero, DDS [address] [place] [address] 12/14/2024 2:00 PM EDT Office Visit [facility] ADULT DENTAL [address] [place] [address] Daniele Barlow documented as of this encounter Visit Diagnoses Not on filedocumented in this encounter Additional Health Concerns Assessment Noted Time PHQ-9 Depression Total Score: 7 05/29/19 23 10:45 AM EDT documented as of this encounter Care Teams Regional Ehs Manager Relationship Specialty Start Date End Date Bea Lacey MD [address] [place] [address] PCP - General Family Medicine 09/22/22 documented as of this encounter
--- OUTSIDE RECORDS SUMMARY | 2024-06-28 13:48 | XMS_ITS | Encounter Summary ---
Author Organization [employer] Address [address] [place] [address] 7t [place] [address] Care Team Providers Care Riding Instructor Name Role Phone Bea Lacey MD Primary Care Provider [phone] Reason for Visit * Reason Comments Med Refill Encounter Details Date Type Department Care Team ([facility] st Contact Info) Description 10/12/2022 Refill [facility]EDS [address] [place], [place] [phone] Gordon Mills MD [address] [place] [address] Chronic rhinitis Social History Tobacco Use Types [...] 11:00 AM EDT Medication Management [facility] MED & PEDS [address] [place] [address] Mariely Dennison PharmD [address] [place] [address] 07/26/2024 9:30 AM EDT Office Visit [facility] [address] [place] [address] Bea Lacey MD [address] [place] [address] 08/06/2024 1:00 PM EDT Office Visit [facility] ADULT DENTAL [address] [place] [address] Sebastián Quintero DDS [address] [place] [address] 12/14/2024 2:00 PM EDT Office Visit [facility] ADULT [facility] [address] [place] [address] Daniele Barlow documented as of this encounter Visit Diagnoses Diagnosis Chronic rhinitis documented in this encounter Additional Health Concerns Assessment Noted Time PHQ-9 Depression Total Score: 7 05/29/19 23 10:45 AM EDT documented as of this encounter Care Teams Riding Instructor Relationship Specialty Start Date End Date Bea Lacey MD [address] [place] [address] PCP - General Family Medicine 09/22/22 documented as of this encounter
--- OUTSIDE RECORDS SUMMARY | 2024-06-28 13:48 | XMS_ITS | Encounter Summary ---
Author Organization [employer] Address [address] [facility] 7t [place] [address] Care Team Providers Care Career Resource Technician Name Role Phone Gordon Mills MD Primary Care Prov ider Bea Lacey MD Primary Care Provider [phone] Encounter Details Date Type Department Care Team (Latest Contact Info) Description 08/14/2020 Abstract [facility] CONVERSIONS Dental, Provider, DDS Social History Tobacco [...] Description 07/03/2024 11:00 AM EDT Medication Management [facility] MED & PEDS [address] [place] [address] Mariely Dennison, PharmD [address] [place] [address] 07/26/2024 9:30 AM EDT Office Visit [facility] MED [facility] PEDS [address] [place] [address] Bea Lacey MD [address] [place] [address] 08/06/2024 1:00 PM EDT Office Visit [facility] ADULT DENTAL [address] [place] [address] Ingrid Sebastián, DDS [address] [place] [address] 12/14/2024 2:00 PM EDT Office Visit [facility] ADULT DENTAL [address] [place] [address] Daniele Barlow documented as of this encounter Visit Diagnoses Not on filedocumented in this encounter Care Teams Career Resource Technician Relationship Specialty Start Date End Date Gordon Mills MD [address] [place] [address] PCP - General Internal Medicine 07/12/19 09/21/22 Bea Lacey MD [address] [place] [phone] PCP - General Family Medicine 09/22/22 documented as of this encounter
--- OUTSIDE RECORDS SUMMARY | 2024-06-28 13:48 | XMS_ITS | Encounter Summary ---
Author Organization [employer] Address [address] [facility] [address] 7[address] [place] [address] Care Team Providers Care Crime Prevention Police Officer Name Role Phone Bea Lacey MD Primary Care Provider [phone] Reason for Visit * Reason Onset Date Comments Nurse Triage 02/08/2024 Encounter Details Date Type Department Care Team ([facility] st Contact Info) Description 02/08/2024 Telephone [facility] MEDICINE [address] [place] [address] Bea Lacey MD [address] [place], [place] [phone] Nurse Triage Social History Tobacco Use Types [...] [facility] [address] [place] [address] Mariely Dennison, PharmD [address] [place] [address] 07/26/2024 9:30 AM EDT Office Visit [facility] [address] [place] [address] Bea Lacey MD [address] [place] [address] 08/06/2024 1:00 PM EDT Office Visit [facility] ADULT DENTAL [address] [place] [address] Sebastián Quintero DDS [address] [place] [address] 12/14/2024 2:00 PM EDT Office Visit [facility] ADULT DENTAL [address] [place] [address] Daniele Barlow documented as of this encounter Visit Diagnoses Not on filedocumented in this encounter Additional Health Concerns Assessment Noted Time PHQ-9 Depression Total Score: 20 024 10:22 AM EDT documented as of this encounter Care Teams Crime Prevention Police Officer Relationship Specialty Start Date End Date Bea Lacey MD [address] [place] [address] PCP - General Family Medicine 09/22/22 documented as of this encounter
--- OUTSIDE RECORDS SUMMARY | 2024-06-28 13:48 | XMS_ITS | Encounter Summary ---
Author Organization [employer] Address [address] [facility] [address] 7[address] [place] [address] Care Team Providers Care Car Unloader Helper Name Role Phone Bea Lacey MD Primary Care Provider [phone] Encounter Details Date Type Department Care Team ([facility] st Contact Info) Description 07/14/2023 Orders Only [facility] MED [facility] PEDS [address] [place], [place] [phone] ProviderTia MD Social History Tobacco Use Types [...] t he electric, gas, oil or water [employer] threatened to shut off services in your [...] Description 07/03/2024 11:00 AM EDT Medication Management [facility] [address] [place] [address] Mariely Dennison PharmD [address] [place] [address] 07/26/2024 9:30 AM EDT Office Visit [facility] [address] [place] [address] Bea Lacey MD [address] [place] [address] 08/06/2024 1:00 PM EDT Office Visit [facility] [address] [place] [address] Sebastián Quintero DDS [address] [place] [address] 12/14/2024 2:00 PM EDT Office Visit [facility] [address] [place] [address] Daniele Barlow documented as of this encounter Procedures Procedure [...] documented as of this encounter Care Teams Car Unloader Helper Relationship Specialty Start Date End Date Bea Lacey MD [address] [place] [address] PCP - General Family Medicine 09/22/22 documented as of this encounter
--- OUTSIDE RECORDS SUMMARY | 2024-06-28 13:48 | XMS_ITS | Clinical Summary ---
Author Organization [facility] Address [address] [place] [address] Care Team Providers Care Supervisor Fabrication Department Name Role Phone Bea Lacey Primary Care Provider Allergies No known active allergies Medications buPROPion [...] I'd recommend he obtain clearance from his seafood manager given his history of multiple coronary events. I would also want to seek further clarification from his neurosurgeon as to what other clearance is being sought from the neurologist's standpoint. I will be reaching out to Dr. Payan's office. CAD in [place] artery 01/28/2022 Overview (12/30/2023): CABG with multiple [...] , 12/03/2021, Additional history exists Insurance MEDICARE [facility] Care Teams Supervisor Fabrication Department Relationship Specialty Start Date End Date DeepthiBea [address] [place] [address] [place] [address] PCP - General Family Medicine 12/26/23
--- OUTSIDE RECORDS SUMMARY | 2024-06-28 13:48 | XMS_ITS | Encounter Summary ---
Author Organization [employer] Address [address] [place] [address] 7t [place] [address] Care Team Providers Care Creative Writer Name Role Phone Gordon Mills MD Primary Care Prov ider Bea Cottrell MD Primary Care Provider [phone] Reason for Visit * Reason Onset Date Comments PCP change 09/01/2022 Encounter Details Date Type Department Care Team ([facility] Contact Info) Description 09/01/2022 Telephone [facility] CHC MED & PEDS [address] [place], [place] [phone] Gordon Mills MD [address] [place] [address] PCP change Social History Tobacco Use Types [...] Miscellaneous Notes * Telephone Encounter - Amy Amado - 09/01/2022 2:43 PM EDT Tc from pt requesting to change PCP. States he needs to be seen more often in person and would liketo be transferred to PCP Pratibha cottrell documented in this encounter Plan of Treatment Upcoming Encounters Date Type Department Care Team (Late st Contact Info) Description 07/03/2024 11:00 AM EDT Medication Management [facility] MED & PEDS [address] [place] [address] Mariely Dennison PharmD [address] [place] [address] 07/26/2024 9:30 AM EDT Office Visit [facility] MED & PED[facility] [address] [place] [address] Bea Cottrell MD 505 [place] [address] 08/06/2024 1:00 PM EDT Office Visit [facility] ADULT DENTAL [address] [place] [address] Sebastián Quintero DDS [address] [place] [address] 12/14/2024 2:00 PM EDT Office Visit [facility] [address] [place] [address] Daniele Barlow documented as of this encounter Visit Diagnoses Not on filedocumented in this encounter Additional Health Concerns Assessment Noted Time PHQ-9 Depression Total Score: 7 05/29/19 10:45 AM EDT documented as of this encounter Care Teams Creative Writer Relationship Specialty Start Date End Date Gordon Mills MD [address] [place] [address] PCP - General Internal Medicine 07/12/19 09/21/22 Bea Cottrell MD [address] [place] [address] PCP - General Family Medicine 09/22/22 documented as of this encounter
--- OUTSIDE RECORDS SUMMARY | 2024-06-28 13:48 | XMS_ITS | Encounter Summary ---
Author Organization [employer] Address [address] [facility] 7t [place] [address] Care Team Providers Care Physical Therapist Center Manager Name Role Phone Bea Lacey MD Primary Care Provider [phone] Reason for Visit * Reason Onset Date Comments Nurse Triage 04/03/2024 Encounter Details Date Type Department Care Team ([facility] st Contact Info) Description 04/03/[address] [facility] MEDICINE [address] [place] [address] Bea Lacey MD [address] [place], [place] [phone] Nurse Triage Social History Tobacco Use Types [...] Miscellaneous Notes * Telephone Encounter - Nita WilsonBORIS - 04/03/2024 1:21 PM EST Triage call [...] and is followed by Pain management at [facility]. Has not notified that Dept at this [...] a new brain surgery on 04/05/[address] [facility]. Disposition reviewed and patient in agreement with plan. Will call to follow with appt. scheduling when recovered from procedure at [facility]. Patient requests that PCP be updated. Forwarded to PCP as patient requested. Protocol Used: Chest Pain (Adult) Protocol-Based Disposition: See in Office or Video Visit Today Override (Final) Disposition: Refer to Specialist Override Reason: Caller refused suggested disposition Override Notes: Patient followed by [facility] Pain Management but wants PCP updated Video [...] acuity questions The caller accepted this outcome. [phone] documented in this encounter Plan of Treatment Upcoming Encounters Date Type Department Care Team (Late st Contact Info) Description 07/03/2024 11:00 AM EDT Medication Management [facility] MED & PEDS [address] [place] [address] Mariely Dennison, PharmD [address] [place] [address] 07/26/2024 9:30 AM EDT Office Visit [facility] MED & PEDS [address] [place] [address] Bea Lacey MD 505 [place] [address] 08/06/2024 1:00 PM EDT Office Visit [facility] ADULT DENTAL [address] [place] [address] Sebastián Quintero DDS [address] [place] [address] 12/14/2024 2:00 PM EDT Office Visit [facility] ADULT DENTAL [address] [place] [address] Daniele Barlow documented as of this encounter Visit Diagnoses Not on filedocumented in this encounter Additional Health Concerns Assessment Noted Time PHQ-9 Depression Total Score: 20 024 10:22 AM EDT documented as of this encounter Care Teams Physical Therapist Center Manager Relationship Specialty Start Date End Date Bea Lacey MD [address] [place] [address] PCP - General Family Medicine 09/22/22 documented as of this encounter
--- OUTSIDE RECORDS SUMMARY | 2024-06-28 13:48 | XMS_ITS | Encounter Summary ---
Author Organization [employer] Address 75 [facility] 7t [place] [address] Care Team Providers Care Faucet Polisher Name Role Phone Bea Lacey MD Primary Care Provider [phone] Reason for Visit * Reason Onset Date Comments Nurse Triage 03/05/2024 Encounter Details Date Type Department Care Team ([facility] Contact Info) Description 03/05/2024 Telephone [facility] CH[facility] MED & PEDS [address] [place], [place] [phone] Bea Lacey MD [address] [place] [address] Nurse Triage Social History Tobacco Use Types [...] Description 07/03/2024 11:00 AM EDT Medication Management [facility] MED & PEDS [address] [place] [address] Mariely Dennison, PharmD [address] [place] [address] 07/26/2024 9:30 AM EDT Office Visit [facility] MED & PEDS [address] [place] [address] Bea Lacey MD [address] [place] [address] 08/06/2024 1:00 PM EDT Office Visit [facility] ADULT DENTAL [address] [place] [address] Sebastián Quintero DDS 505 [place] [address] 12/14/2024 2:00 PM EDT Office Visit [facility] ADULT DENTAL [address] [place] [address] Daniele Barlow documented as of this encounter Visit Diagnoses Not on filedocumented in this encounter Additional Health Concerns Assessment Noted Time PHQ-9 Depression Total Score: 20 024 10:22 AM EDT documented as of this encounter Care Teams Faucet Polisher Relationship Specialty Start Date End Date Bea Lacey MD [address] [place] [address] PCP - General Family Medicine 09/22/22 documented as of this encounter
--- OUTSIDE RECORDS SUMMARY | 2024-06-28 13:48 | XMS_ITS | Encounter Summary ---
Author Organization [employer] Address [address] [place] [address] 7t [place] [address] Care Team Providers Care Captain/Check Airman Name Role Phone Gordon Mills MD Primary Care Prov ider Bea Lacey MD Primary Care Provider [phone] Reason for Visit * Reason Comments Med Refill Encounter Details Date Type Department Care Team ([facility] st Contact Info) Description 09/02/2022 Refill [facility] MED & PEDS [address] [place], [place] [phone] Peter Barlow MD [address] [place], [place] [phone] Social History Tobacco Use Types Packs/Day Years [...] 07/03/2024 11:00 AM EDT Medication Management [facility] MED & PEDS [address] [place] [address] Mariely Dennison PharmD [address] [place] [address] 07/26/2024 9:30 AM EDT Office Visit [facility] MED & PEDS [address] [place] [address] Bea Lacey MD 505 [place] [address] 08/06/2024 1:00 PM EDT Office Visit [facility] ADULT DENTAL [address] [place] [address] Sebastián Qunitero DDS [address] [place] [address] 12/14/2024 2:00 PM EDT Office Visit [facility] ADULT DENTAL [address] [place] [address] Daniele Barlow documented as of this encounter Visit Diagnoses Not on filedocumented in this encounter Additional Health Concerns Assessment Noted Time PHQ-9 Depression Total Score: 7 05/29/19 23 10:45 AM EDT documented as of this encounter Care Teams Captain/Check Airman Relationship Specialty Start Date End Date Gordon Mills MD [address] [place] [address] PCP - General Internal Medicine 07/12/19 09/21/22 Bea Lacey MD [address] [place] [address] PCP - General Family Medicine 09/22/22 documented as of this encounter
--- OUTSIDE RECORDS SUMMARY | 2024-06-28 13:48 | XMS_ITS | Encounter Summary ---
Author Organization [employer] Address 75 [facility] 7t [place] [address] Care Team Providers Care Center Medical And Lab Director Name Role Phone Bea Lacey MD Primary Care Provider [phone] Encounter Details Date Type Department Care Team ([facility] st Contact Info) Description 02/29/2024 Orders Only [facility] CHC MED & PEDS [address] [place], [place] [phone] Bea Lacey MD [address] [place], [place] [phone] Type 2 diabetes mellitus with hyperglycemia (CMS/HCC) [...] 07/03/2024 11:00 AM EDT Medication Management [facility] MED & PEDS [address] [place] [address] Mariely Dennison PharmD [address] [place] [address] 07/26/2024 9:30 AM EDT Office Visit [facility] MED & PEDS [address] [place] [address] Bea Lacey MD [address] [place] [address] 08/06/2024 1:00 PM EDT Office Visit [facility] ADULT DENTAL [address] [place] [address] Sebastián Quintero DDS [address] [place] [address] 12/14/2024 2:00 PM EDT Office Visit [facility] ADULT DENTAL [address] [place] [address] Daniele Barlow documented as of this encounter Visit Diagnoses Diagnosis Type 2 diabetes mellitus with hyperglycemia (CMS/HCC) documented in this encounter Additional Health Concerns Assessment Noted Time PHQ-9 Depression Total Score: 20 024 10:22 AM EDT documented as of this encounter Care Teams Center Medical And Lab Director Relationship Specialty Start Date End Date Bea Lacey MD [address] [place] [address] PCP - General Family Medicine 09/22/22 documented as of this encounter
--- OUTSIDE RECORDS SUMMARY | 2024-06-28 13:48 | XMS_ITS | Clinical Summary ---
Author Organization [facility] Address [address] [place] [phone] Phone Care Team Providers Care Behavioral Health Clinician Name Role Phone Lula Lacey MD Primary Care Provider [phone] Allergies Active Allergy Reactions Criticality Noted Date [...] Visit [facility] [address] [address] Get Galo MD [address] [address] Health Maintenance Due Date Last [...] ug/dl RTAMA 09/21/2018 us Rt[facility] Conversion LAB [id number] LICITED RESULTS Final Result RTAMA from Last 3 Months or Most Recently Relevant to Health Maintenance Insurance Medicare Medicaid [place] Medicare Medicaid [place] Care Teams Behavioral Health Clinician Relationship Specialty Start Date End Date Lula Lacey MD [address] [place] [address] ZACH CAMACHO PCP - General Internal Medicine 01/25/24
--- OUTSIDE RECORDS SUMMARY | 2024-06-28 13:48 | XMS_ITS | Encounter Summary ---
Author Organization [employer] Address 75 [facility] 7t [place] [address] Care Team Providers Care Emr Analyst Name Role Phone Bea Lacey MD Primary Care Provider [phone] Reason for Visit * Reason Onset Date Comments Results 04/28/2023 Encounter Details Date Type Department Care Team ([facility] st Contact Info) Description 04/28/2023 Telephone [facility] MEDICINE [address] [place] [address] Bea Lacey MD [address] [place], [place] [phone] Results Social History Tobacco Use Types Packs/Day [...] Description 07/03/2024 11:00 AM EDT Medication Management [facility] MED & PEDS [address] [place] [address] Mariely Dennison, PharmD 230 [place] [address] 07/26/2024 9:30 AM EDT Office Visit [facility] MED & PEDS [address] [place] [address] Bea Lacey MD [address] [place] [address] 08/06/2024 1:00 PM EDT Office Visit [facility] ADULT DENTAL [address] [place] [address] Sebastián Quintero DDS [address] [place] [address] 12/14/2024 2:00 PM EDT Office Visit [facility] ADULT DENTAL [address] [place] [address] Daniele Barlow documented as of this encounter Visit Diagnoses Not on filedocumented in this encounter Additional Health Concerns Assessment Noted Time PHQ-9 Depression Total Score: 7 05/29/19 10:45 AM EDT documented as of this encounter Care Teams Emr Analyst Relationship Specialty Start Date End Date Bea Lacey MD [address] [place] [address] PCP - General Family Medicine 09/22/22 documented as of this encounter
--- OUTSIDE RECORDS SUMMARY | 2024-06-28 13:48 | XMS_ITS | Encounter Summary ---
Author Organization [employer] Address [address] [facility] 7t [place] [address] Care Team Providers Care Industrial Electrical Technician Name Role Phone Bea Lacey MD Primary Care Provider [phone] Reason for Visit * Reason Comments Med Refill Encounter Details Date Type Department Care Team ([facility] st Contact Info) Description 03/16/2024 Refill [facility] CHC MED & PEDS [address] [place], [place] [phone] Bea Lacey MD [address] [place], [place] [phone] Social History Tobacco Use Types Packs/Day Years [...] Description 07/03/2024 11:00 AM EDT Medication Management [facility] MED & PEDS [address] [place] [address] Mariely Dennison PharmD [address] [place] [address] 07/26/2024 9:30 AM EDT Office Visit [facility] MED & PEDS [address] [place] [address] Bea Lacey MD 505 [place] [address] 08/06/2024 1:00 PM EDT Office Visit [facility] ADULT DENTAL [address] [place] [address] Sebastián Quintero DDS [address] [place] [address] 12/14/2024 2:00 PM EDT Office Visit [facility] ADULT DENTAL [address] [place] [address] Daniele Barlow documented as of this encounter Visit Diagnoses Not on filedocumented in this encounter Additional Health Concerns Assessment Noted Time PHQ-9 Depression Total Score: 20 024 10:22 AM EDT documented as of this encounter Care Teams Industrial Electrical Technician Relationship Specialty Start Date End Date Bea Lacey MD [address] [place] [address] PCP - General Family Medicine 09/22/22 documented as of this encounter
--- OUTSIDE RECORDS SUMMARY | 2024-06-28 13:48 | XMS_ITS | Encounter Summary ---
Author Organization [employer] Address [address] [facility] [address] 7t [place] [address] Care Team Providers Care Buttonhole Facer Name Role Phone Bea Lacey MD Primary Care Provider [phone] Reason for Visit * Reason Onset Date Comments Medication Question 06/20/2023 Encounter Details Date Type Department Care Team ([facility] st Contact Info) Description 06/20/[address] [facility] MEDICINE [address] [place] [address] Bea Lacey MD [address] [place], [place] [phone] Medication Question Social History Tobacco Use Types [...] 07/03/2024 11:00 AM EDT Medication Management [facility] MED & PEDS [address] [place] [address] Mariely Dennison PharmD [address] [place] [address] 07/26/2024 9:30 AM EDT Office Visit [facility] MED & PEDS [address] [place] [address] Bea Lacey MD [address] [place] [address] 08/06/2024 1:00 PM EDT Office Visit [facility] ADULT DENTAL [address] [place] [address] Sebastián Quintero DDS [address] [place] [address] 12/14/2024 2:00 PM EDT Office Visit [facility] ADULT DENTAL [address] [place] [address] Daniele Barlow documented as of this encounter Visit Diagnoses Not on filedocumented in this encounter Additional Health Concerns Assessment Noted Time PHQ-9 Depression Total Score: 20 024 10:22 AM EDT documented as of this encounter Care Teams Buttonhole Facer Relationship Specialty Start Date End Date Bea Lacey MD [address] [place] [address] PCP - General Family Medicine 09/22/22 documented as of this encounter
--- OUTSIDE RECORDS SUMMARY | 2024-06-28 13:48 | XMS_ITS | Referral Summary ---
Author Organization [facility] Address [address] [place] [address] Care Team Providers Care Zigzag Machine Operator Name Role Phone Bea Lacey Primary Care Provider [phone] Allergies No known active allergies Medications buPROPion [...] I'd recommend he obtain clearance from his fountain clerk given his history of multiple coronary events. I would also want to seek further clarification from his neurosurgeon as to what other clearance is being sought from the neurologist's standpoint. I will be reaching out to Dr. Payan's office. CAD in [place] artery 01/28/2022 Overview (12/30/2023): CABG with multiple [...] file Insurance MEDICARE [facility] Care Teams Zigzag Machine Operator Relationship Specialty Start Date End Date Bea Lacey [address] [place], [place] [address] [place] [address] PCP - General Family Medicine 12/26/23
--- OUTSIDE RECORDS SUMMARY | 2024-06-28 13:48 | XMS_ITS | Encounter Summary ---
Author Organization [email or web address] Address [address] [facility] 7t [place] [address] Care Team Providers Care Cigarette Making Machine Catcher Name Role Phone Bae Lacey MD Primary Care Provider [phone] Reason for Visit * Reason Onset Date Comments Results 11/16/2023 Encounter Details Date Type Department Care Team ([facility] st Contact Info) Description 11/16/2023 Telephone [facility] MEDICINE [address] [place] [address] Bea Lacey MD [address] [place], [place] [phone] Results Social History Tobacco Use Types Packs/Day [...] PM EDT Tc from pt returning call. Building Services Technician advise previous message. Pt verbalizes understanding. * [...] results: Labs Date when done: 11/10/23 Facility: [facility] Labs documented in this encounter Plan of Treatment Upcoming Encounters Date Type Department Care Team (Late st Contact Info) Description 07/03/2024 11:00 AM EDT Medication Management [facility] MED & PEDS [address] [place] [address] Mariely Dennison PharmD [address] [place] [address] 07/26/2024 9:30 AM EDT Office Visit [facility] MED & PEDS [address] [place] [address] Bea Lacey MD [address] [place] [address] 08/06/2024 1:00 PM EDT Office Visit [facility] ADULT DENTAL [address] [place] [address] Sebastián Quintero DDS [address] [place] [address] 12/14/2024 2:00 PM EDT Office Visit [facility] ADULT DENTAL [address] [place] [address] Daniele Barlow documented as of this encounter Visit Diagnoses Not on filedocumented in this encounter Additional Health Concerns Assessment Noted Time PHQ-9 Depression Total Score: 20 024 10:22 AM EDT documented as of this encounter Care Teams Cigarette Making Machine Catcher Relationship Specialty Start Date End Date Bea Lacey MD [address] [place] [address] PCP - General Family Medicine 09/22/22 documented as of this encounter
--- OUTSIDE RECORDS SUMMARY | 2024-06-28 13:48 | XMS_ITS | Encounter Summary ---
Author Organization [employer] Address [address] [facility] 7t [place] [address] Care Team Providers Care Fast Food Team Member Name Role Phone Bea Lacey MD Primary Care Provider [phone] Reason for Visit * Reason Comments Med Refill Encounter Details Date Type Department Care Team (Late st Contact Info) Description 10/11/2022 Refill [facility] MED & PEDS [address] [place], [place] [phone] Bea Lacey MD [address] [place], [place] [phone] Chronic rhinitis Social History Tobacco Use Types [...] 11:00 AM EDT Medication Management [facility] MED & PEDS [address] [place] [address] Mariely Dennison, PharmD [address] [place], [place] [phone] 07/26/2024 9:30 AM EDT Office Visit [facility] MED & PEDS [address] [place] [address] Bea Lacey MD [address] [place] [address] 08/06/2024 1:00 PM EDT Office Visit [facility] ADULT DENTAL [address] [place] [address] Sebastián Quintero DDS [address] [place] [address] 12/14/2024 2:00 PM EDT Office Visit [facility] ADULT DENTAL [address] [place] [address] Daniele Barlow documented as of this encounter Visit Diagnoses Diagnosis Chronic rhinitis documented in this encounter Additional Health Concerns Assessment Noted Time PHQ-9 Depression Total Score: 7 05/29/19 23 10:45 AM EDT documented as of this encounter Care Teams Fast Food Team Member Relationship Specialty Start Date End Date Bea Lacey MD [address] [place] [address] PCP - General Family Medicine 09/22/22 documented as of this encounter
--- OUTSIDE RECORDS SUMMARY | 2024-06-28 13:48 | XMS_ITS | Encounter Summary ---
Author Organization [employer] Address 75 [facility] 7t [place] [address] Care Team Providers Care Design Technology Teacher Name Role Phone Bea Lacey MD Primary Care Provider [phone] Reason for Visit * Reason Onset Date Comments Medication Question 02/07/2023 Encounter Details Date Type Department Care Team ([facility] st Contact Info) Description 02/07/2023 Telephone [facility] MEDICINE [address] [place] [address] Bea Lacey MD [address] [place], [place] [phone] Medication Question Social History Tobacco Use Types [...] t he electric, gas, oil or water Vacation [employer] threatened to shut off services in your [...] of [employer] and had the med lowered [id number] last month. Pt states diarrhea has stopped [...] [facility] [address] [place] [address] Mariely Dennison PharmD [address] [place] [address] 07/26/2024 9:30 AM EDT Office Visit [facility] MED & PEDS [address] [place] [address] Bea Lacey MD [address] [place] [address] 08/06/2024 1:00 PM EDT Office Visit [facility] ADULT DENTAL [address] [place] [address] Robyadelaide Sebastián, DDS [address] [place] [address] 12/14/2024 2:00 PM EDT Office Visit [facility] ADULT DENTAL [address] [place] [address] Daniele Barlow documented as of this encounter Visit Diagnoses Not on filedocumented in this encounter Additional Health Concerns Assessment Noted Time PHQ-9 Depression Total Score: 7 05/29/19 23 10:45 AM EDT documented as of this encounter Care Teams Design Technology Teacher Relationship Specialty Start Date End Date Bea Lacey MD [address] [place] [address] PCP - General Family Medicine 09/22/22 documented as of this encounter
--- OUTSIDE RECORDS SUMMARY | 2024-06-28 13:48 | XMS_ITS | Clinical Summary ---
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 Benign hypertension 12/30/2023 BPH (benign prostatic hyperplasia) 12/30/2023 Bilateral cataracts 12/30/2023 Bilateral tinnitus 12/30/2023 CVA (cerebral vascular accident) ([facility] V24, [facility] [place] V28) 12/30/2023 Heart failure with normal ej ection fraction ([facility] V24, [facility] V28) 12/30/2023 Hyperlipidemia 12/30/2023 History of parathyroidectomy 12/30/2023 CKD (chronic kidney disease) 12/30/2023 Type 2 diabetes mellitus wit h hyperglycemia ([facility] V24, [facility] V28) 12/30/2023 CAD in [place] artery 12/30/2023 Erectile dysfunction due to diseases [...] Insurance MEDICARE MEDICAID - [place] Care Teams Manager Behavioral Relationship Specialty Start Date End Date Bea Lacey MD [address] [place] [id number] PCP - General 04/04/23
--- OUTSIDE RECORDS SUMMARY | 2024-06-28 13:48 | XMS_ITS | Encounter Summary ---
Author Organization [employer] Address 75 [facility] 7t [place] [address] Care Team Providers Care Customer Insight Analyst Name Role Phone Bea Lacey MD Primary Care Provider [phone] Reason for Visit * Reason Comments Med Refill Encounter Details Date Type Department Care Team (Late st Contact Info) Description 02/06/2024 Refill [facility] [address] [place] [address] Bea Lacey MD [address] [place], [place] [phone] Type 2 diabetes mellitus with hyperglycemia, without long-term current use of insulin ([facility]) Social History Tobacco Use Types Packs/Day Years [...] Description 07/03/2024 11:00 AM EDT Medication Management [facility] MED & PEDS [address] [place] [address] Mariely Dennison PharmD 230 [place] [address] 07/26/2024 9:30 AM EDT Office Visit [facility] MED & PEDS [address] [place] [address] Bea Lacey MD 505 [place] [address] 08/06/2024 1:00 PM EDT Office Visit [facility] ADULT DENTAL 505 [place] [address] Sebastián Quintero DDS 505 [place] [address] 12/14/2024 2:00 PM EDT Office Visit [facility] ADULT DENTAL 505 [place] [address] Daniele Barlow documented as of this encounter Visit Diagnoses Diagnosis Type 2 diabetes mellitus with hyperglycemia, without long-term current use of insulin ([facility]) documented in this encounter Additional Health Concerns Assessment Noted Time PHQ-9 Depression Total Score: 20 04/12/2 024 10:22 AM EDT documented as of this encounter Care Teams Customer Insight Analyst Relationship Specialty Start Date End Date Bea Lacey MD [address] [place] [address] PCP - General Family Medicine 09/22/22 documented as of this encounter
--- OUTSIDE RECORDS SUMMARY | 2024-06-28 13:48 | XMS_ITS | Encounter Summary ---
Author Organization [employer] Address 75 [facility] 7t [place] [address] Care Team Providers Care Route Cdl Driver Name Role Phone Bea Lacey MD Primary Care Provider [phone] Reason for Visit * Reason Onset Date Comments Medication Question 06/10/2023 Encounter Details Date Type Department Care Team ([facility] Contact Info) Description 06/10/[address] [facility] CH[facility] MED & PEDS [address] [place], [place] [phone] Bea Lacey MD 505 [place], [place] [phone] Medication Question Social History Tobacco Use Types [...] Description 07/03/2024 11:00 AM EDT Medication Management [facility] MED & PEDS [address] [place] [address] Mariely Dennison PharmD 230 [place] [address] 07/26/2024 9:30 AM EDT Office Visit [facility] MED & PEDS [address] [place] [address] Bea Lacey MD 505 [place] [address] 08/06/2024 1:00 PM EDT Office Visit [facility] ADULT DENTAL [address] [place] [address] Sebastián Quintero DDS 505 [place] [address] 12/14/2024 2:00 PM EDT Office Visit [facility] ADULT DENTAL [address] [place] [address] Daniele Barlow documented as of this encounter Visit Diagnoses Not on filedocumented in this encounter Additional Health Concerns Assessment Noted Time PHQ-9 Depression Total Score: 20 024 10:22 AM EDT documented as of this encounter Care Teams Route Cdl Driver Relationship Specialty Start Date End Date Bea Lacey MD 230 [place] [address] PCP - General Family Medicine 09/22/22 documented as of this encounter
--- OUTSIDE RECORDS SUMMARY | 2024-06-28 13:48 | XMS_ITS | Encounter Summary ---
Author Organization [employer] Address [address] [facility] [address] 7t [place] [address] Care Team Providers Care Historic Preservationist Name Role Phone Bea Lacey MD Primary Care Provider Encounter Details Date Type Department Care Team (Late st Contact Info) Description 06/07/2023 Orders Only [facility] MEDICINE [address] [place], [place] [phone] ProviderTia MD Social History Tobacco Use Types [...] 11:00 AM EDT Medication Management [facility] MED & PEDS 505 [place] [address] Mariely Dennison PharmD 230 [place] [address] 07/26/2024 9:30 AM EDT Office Visit [facility] MED & PEDS 505 [place] [address] Bea Lacey MD 505 [place] [address] 08/06/2024 1:00 PM EDT Office Visit [facility] ADULT DENTAL 505 [place] [address] Sebastián Quintero DDS 505 [place] [address] 12/14/2024 2:00 PM EDT Office Visit [facility] ADULT DENTAL 505 [place] [address] Daniele Barlow documented as of this encounter Procedures Procedure Name Priority Date/Time Associated Diagnosis Comments HM COLONOSCOPY Routine 03/14/2014 12:17 PM EST documented in this encounter Results * Hm Colonoscopy (03/14/2014 12:17 PM EST) Historical Provider HEALTH MAINTENANCE Final Result documented in this encounter Visit Diagnoses Not on filedocumented in this encounter Additional Health Concerns Assessment Noted Time PHQ-9 Depression Total Score: 20 024 10:22 AM EDT documented as of this encounter Care Teams Historic Preservationist Relationship Specialty Start Date End Date Bea Lacey MD [address] [place] [address] PCP - General Family Medicine 09/22/22 documented as of this encounter
--- OUTSIDE RECORDS SUMMARY | 2024-06-28 13:48 | XMS_ITS | Encounter Summary ---
Author Organization [employer] Address 75 [facility] 7t [place] [address] Care Team Providers Care Reconciliation Analyst Name Role Phone Bea Lacey MD Primary Care Provider [phone] Reason for Visit * Reason Onset Date Comments returning call RCT appt 06/26/2024 Encounter Details Date Type Department Care Team ([facility] st Contact Info) Description 06/26/2024 Telephone [facility] CHC ADULT DENTAL 505 [place], [place] [phone] Sebastián Quintero DDS 505 [place], [place] [phone] returning call RCT appt Social History Tobacco Use Types Packs/Day Years [...] encounter Miscellaneous Notes * Telephone Encounter - Rosie Alcantar - 06/26/2024 12:31 PM EDT Patient is returning call. Voice mail was left with date and time for RCT appt. Patient called backstating that he mistakenly deleted the message and does not recall the date and time that was offered for appt. Please reach out to patient. documented in this encounter Plan of Treatment Upcoming Encounters Date Type Department Care Team ([facility] st Contact Info) Description 07/03/2024 11:00 AM EDT Medication Management [facility] MED & PEDS 505 [place] [address] Mariely Dennison PharmD 230 [place] [address] 07/26/2024 9:30 AM EDT Office Visit [facility] MED & PEDS 505 [place] [address] Bea Lacey MD 505 [place] [address] 08/06/2024 1:00 PM EDT Office Visit [facility] ADULT DENTAL 505 [place] [address] Sebastián Quintero DDS 505 [place] [address] 12/14/2024 2:00 PM EDT Office Visit [facility] ADULT DENTAL [address] [place] [address] Daniele Barlow documented as of this encounter Visit Diagnoses Not on filedocumented in this encounter Additional Health Concerns Assessment Noted Time PHQ-9 Depression Total Score: 20 024 10:22 AM EDT documented as of this encounter Care Teams Reconciliation Analyst Relationship Specialty Start Date End Date Bea Lacey MD [address] [place] [address] PCP - General Family Medicine 09/22/22 documented as of this encounter
--- OUTSIDE RECORDS SUMMARY | 2024-06-28 13:48 | XMS_ITS | Encounter Summary ---
Author Organization [employer] Address 75 [facility] 7t [place] [address] Care Team Providers Care Inspection Clerk Name Role Phone Bea Lacey MD Primary Care Provider [phone] Reason for Visit * Reason Onset Date Comments Nurse Triage 11/08/2023 Encounter Details Date Type Department Care Team ([facility] Contact Info) Description 11/08/2023 Telephone [facility] CHC MED & PEDS [address] [place], [place] [phone] Bea Lacey MD [address] [place] [address] Nurse Triage Social History Tobacco Use Types [...] accepted this outcome. Please contact pt at [phone] documented in this encounter Plan of Treatment Upcoming Encounters Date Type Department Care Team ([facility] st Contact Info) Description 07/03/2024 11:00 AM EDT Medication Management [facility] MED & PEDS [address] [place] [address] Mariely Dennison, PharmD 230 [place] [address] 07/26/2024 9:30 AM EDT Office Visit [facility] MED & PEDS 505 [place] [address] Bea Lacey MD [address] [place] [address] 08/06/2024 1:00 PM EDT Office Visit [facility] ADULT DENTAL [address] [place] [address] Sebastián Quintero DDS [address] [place] 12/14/2024 2:00 PM EDT Office Visit [facility] CHC ADULT DENTAL [address] [place] [address] Daniele Barlow documented as of this encounter Visit Diagnoses Not on filedocumented in this encounter Additional Health Concerns Assessment Noted Time PHQ-9 Depression Total Score: 20 024 10:22 AM EDT documented as of this encounter Care Teams Inspection Clerk Relationship Specialty Start Date End Date Bea Lacey MD [address] [place] [address] PCP - General Family Medicine 09/22/22 documented as of this encounter
--- OUTSIDE RECORDS SUMMARY | 2024-06-28 13:48 | XMS_ITS | Encounter Summary ---
Author Organization [employer] Address [address] [place] [address] 7 [place] [address] Care Team Providers Care Lawn Caretaker Name Role Phone Gordon Mills MD Primary Care Prov ider Bea Lacey MD Primary Care Provider [phone] Reason for Referral * Social Care Application (Routine) - Closed Specialty Diagnoses / Procedures Referred By Contac t Referred To Contact Diabetic / Diabetes Services Diagnoses Type 2 diabetes mellitus with hyperglycemia, without long-term current use of insulin (CMS/HCC) Peter Barlow MD [address] [place] [address] Phone: tel: fax: Referral ID Status Reason Start Date Expiration Date V isits Requested Visits Authorized [id number] Closed Specialty Services Required 09/02/2022 03/01/2023 1 1 Encounter Details Date Type Department Care Team ([facility] st Contact Info) Description 09/02/2022 Orders Only [facility] CHC MED & PEDS [address] [place] [address] Peter Barlow MD [address] [place], [place] [phone] Type 2 diabetes mellitus with hyperglycemia, without [...] Upcoming Encounters Date Type Department Care Team ([facility] st Contact Info) Description 07/03/2024 11:00 AM EDT Medication Management [facility] MED & PEDS [address] [place] [address] Mariely Dennison PharmD 230 [place] [address] 07/26/2024 9:30 AM EDT Office Visit [facility] MED & PEDS 505 [place] [address] Bea Lacey MD 505 [place] [address] 08/06/2024 1:00 PM EDT Office Visit [facility] ADULT DENTAL 505 [place] [address] Sebastián Quintero DDS 505 [place] [address] 12/14/2024 2:00 PM EDT Office Visit [facility] ADULT DENTAL 505 [place] [address] Daniele Barlow Scheduled Referrals Name Type Priority Associated Diagnoses Order Schedule Referral to Diabetes Prevention Program Outpatient Referral Routine Type 2 diabetes mellitus with hyperglycemia, without long-term current use of insulin ([facility]) Ordered: 09/02/2022 documented as of this encounter Visit Diagnoses Diagnosis Type 2 diabetes mellitus with hyperglycemia, without long-term current use of insulin ([facility])- Primary documented in this encounter Additional Health Concerns Assessment Noted Time PHQ-9 Depression Total Score: 7 05/29/19 23 10:45 AM EDT documented as of this encounter Care Teams Lawn Caretaker Relationship Specialty Start Date End Date Gordon Mills MD [address] [place] [address] PCP - General Internal Medicine 07/12/19 09/21/22 Bea Lacey MD [address] [place] [address] PCP - General Family Medicine 09/22/22 documented as of this encounter
--- OUTSIDE RECORDS SUMMARY | 2024-06-28 13:48 | XMS_ITS | Encounter Summary ---
Author Organization [employer] Address 75 [facility] 7t [place] [address] Care Team Providers Care Pay Agent Name Role Phone Bea Lacey MD Primary Care Provider Reason for Visit * Reason Comments Med Refill Encounter Details Date Type Department Care Team ([facility] st Contact Info) Description 03/30/2024 Refill [facility] CHC MED & PEDS 505 [place], [place] [phone] Bea Lacey MD [address] [place], [place] [phone] Essential tremor Social History Tobacco Use Types [...] 11:00 AM EDT Medication Management [facility] MED & PEDS 505 [place] [address] Mariely Dennison PharmD 230 [place] [address] 07/26/2024 9:30 AM EDT Office Visit [facility] MED & PEDS 505 [place] [address] Bea Lacey MD [address] [place] [address] 08/06/2024 1:00 PM EDT Office Visit [facility] ADULT DENTAL 505 [place] [address] Sebastián Quintero DDS 505 [place] [address] 12/14/2024 2:00 PM EDT Office Visit [facility] ADULT DENTAL 505 [place] [address] Daniele Barlow documented as of this encounter Visit Diagnoses Diagnosis Essential tremor documented in this encounter Additional Health Concerns Assessment Noted Time PHQ-9 Depression Total Score: 20 024 10:22 AM EDT documented as of this encounter Care Teams Pay Agent Relationship Specialty Start Date End Date Bea Lacey MD [address] [place] [address] PCP - General Family Medicine 09/22/22 documented as of this encounter
--- OUTSIDE RECORDS SUMMARY | 2024-06-28 13:48 | XMS_ITS | Encounter Summary ---
Author Organization [employer] Address [address] [place] [address] 7t [place] [address] Care Team Providers Care Associate Financial Analyst Name Role Phone Bea Lacey MD Primary Care Provider [phone] Reason for Visit * Reason Comments Med Refill Encounter Details Date Type Department Care Team ([facility] Contact Info) Description 09/30/2022 Refill [facility] MED & PEDS [address] [place], [place] [phone] Gordon Mills MD 505 [place], [place] [phone] Chronic rhinitis Social History Tobacco Use Types [...] Upcoming Encounters Date Type Department Care Team ([facility] Contact Info) Description 07/03/2024 11:00 AM EDT Medication Management [facility] MED & PEDS [address] [place], [place] [phone] Mariely Dennison, PharmD 230 [place], [place] [phone] 07/26/2024 9:30 AM EDT Office Visit [facility] MED & PEDS [address] [place] [address] Bea Lacey MD 505 [place] [address] 08/06/2024 1:00 PM EDT Office Visit [facility] ADULT DENTAL [address] [place] [address] Sebastián Quintero DDS 505 [place] [address] 12/14/2024 2:00 PM EDT Office Visit [facility] ADULT DENTAL [address] [place] [address] Daniele Barlow documented as of this encounter Visit Diagnoses Diagnosis Chronic rhinitis documented in this encounter Additional Health Concerns Assessment Noted Time PHQ-9 Depression Total Score: 7 05/29/19 23 10:45 AM EDT documented as of this encounter Care Teams Associate Financial Analyst Relationship Specialty Start Date End Date Bea Lacey MD [address] [place] [address] PCP - General Family Medicine 09/22/22 documented as of this encounter
--- OUTSIDE RECORDS SUMMARY | 2024-06-28 13:48 | XMS_ITS | Encounter Summary ---
Author Organization [employer] Address [address] [facility] [address] 7t [place] [address] Care Team Providers Care Material Engineer Name Role Phone Bea Lacey MD Primary Care Provider [phone] Reason for Visit * Reason Onset Date Comments Med Refill 10/06/2023 Encounter Details Date Type Department Care Team ([facility] st Contact Info) Description 10/06/2023 Telephone [facility] MEDICINE [address] [place] [address] Bea Lacey MD [address] [place], [place] [phone] Med Refill Social History Tobacco Use Types [...] X 4 MM To be sent to: [facility] documented in this encounter Plan of Treatment Upcoming Encounters Date Type Department Care Team (Late st Contact Info) Description 07/03/2024 11:00 AM EDT Medication Management [facility] MED & PEDS [address] [place] [address] Mariely Dennison, PharmD 230 [place] [address] 07/26/2024 9:30 AM EDT Office Visit [facility] MED & PEDS 505 [place] [address] Bea Lacey MD 505 [place] [address] 08/06/2024 1:00 PM EDT Office Visit [facility] ADULT DENTAL 505 [place] [address] Sebastián Quintero DDS [address] [place] 12/14/2024 2:00 PM EDT Office Visit [facility] CHC ADULT DENTAL [address] [place] [address] Daniele Barlow documented as of this encounter Visit Diagnoses Not on filedocumented in this encounter Additional Health Concerns Assessment Noted Time PHQ-9 Depression Total Score: 20 024 10:22 AM EDT documented as of this encounter Care Teams Material Engineer Relationship Specialty Start Date End Date Bea Lacey MD [address] [place] [address] PCP - General Family Medicine 09/22/22 documented as of this encounter
--- OUTSIDE RECORDS SUMMARY | 2024-06-28 13:48 | XMS_ITS | Encounter Summary ---
Author Organization [employer] Address 75 [facility] 7t [place] [address] Care Team Providers Care Ordnance Truck Installation Mechanic Name Role Phone Bea Lacey MD Primary Care Provider Reason for Visit * Reason Onset Date Comments Glucose Monetor 10/08/2022 Encounter Details Date Type Department Care Team ([facility] st Contact Info) Description 10/08/2022 Telephone [facility] CHC MED & PEDS [address] [place], [place] [phone] Bea Lacey MD [address] [place] [address] Glucose Monetor Social History Tobacco Use Types [...] call to patient who is requesting a [employer] two Sensor. Pt states it will make it easier for him due to difficulty pinching. Pt would like it to be sent to [facility], pt provided number . Patient also stated that he wants a prescription for pseudoephedrine fornasal congestion and runny nose. This message will be forwarded to provider. * Telephone Encounter - Lexi Chan - 10/08/2022 8:21 AM EDT Tc from pt requesting a [employer] two Sensor. Pt states it will make it easier for him due todifficulty pinching. Pt would like it to be sent to [facility], pt provided number Please contact pt at [phone] documented in this encounter Plan of Treatment Upcoming Encounters Date Type Department Care Team (Late st Contact Info) Description 07/03/2024 11:00 AM EDT Medication Management [facility] MED & PEDS [address] [place] [address] Mariely Dennison, PharmD [address] [place] [address] 07/26/2024 9:30 AM EDT Office Visit [facility] MED & PEDS 505 [place] [address] Bea Lacey MD 505 [place] [address] 08/06/2024 1:00 PM EDT Office Visit [facility] ADULT DENTAL [address] [place] [address] Sebastián Quintero DDS [address] [place] [address] 12/14/2024 2:00 PM EDT Office Visit [facility] ADULT DENTAL [address] [place] [address] Daniele Barlow documented as of this encounter Visit Diagnoses Not on filedocumented in this encounter Additional Health Concerns Assessment Noted Time PHQ-9 Depression Total Score: 7 05/29/19 10:45 AM EDT documented as of this encounter Care Teams Ordnance Truck Installation Mechanic Relationship Specialty Start Date End Date Bea Lacey MD [address] [place] [address] PCP - General Family Medicine 09/22/22 documented as of this encounter
== END 2024-06-28 13:00 | disposition home or self-care (01) ==
LOC: HO.PMC 12:41
PROVIDERS: PCP Student in an Organized Health Care Education/Training Program; Visit Provider Anesthesiology
DX: M53.3 Sacrococcygeal disorders, not elsewhere classified (principal); G89.29 Other chronic pain; M46.1 Sacroiliitis, not elsewhere classified; M54.51 Vertebrogenic low back pain; G89.4 Chronic pain syndrome; E11.65 Type 2 diabetes mellitus with hyperglycemia
CPT/HCPCS: 99213

== ENCOUNTER → 2024-06-28 12:40 | Outpatient (BNVA) | payer MEDICARE, MEDICAID, SELFPAY | PROVIDERS: PCP Student in an Organized Health Care Education/Training Program; Visit Provider Anesthesiology | DX: M53.3 Sacrococcygeal disorders, not elsewhere classified (principal); M46.1 Sacroiliitis, not elsewhere classified; M54.51 Vertebrogenic low back pain; G89.4 Chronic pain syndrome; E11.65 Type 2 diabetes mellitus with hyperglycemia; Z45.1 Encounter for adjustment and management of infusion pump | CPT/HCPCS: 99212 ==

== ENCOUNTER 2024-07-04 12:43 | Outpatient (AMB) | payer MEDICARE, MEDICAID, SELFPAY ==
[2024-07-04 12:56] VITALS: BP 132/78; PULSE 82; RESP 16; O2SAT 93; BMI 30.1
--- NOTE | 2024-07-04 12:56 | A.OFFVIS_ITS ---
Vital Signs 07/04/24 12:56 Height 5 ft 8 in Weight 198 lb BMI 30.1 BP 132/78 Blood Pressure Location Lt brachial Position Sitting Respiration 16 Pulse 82 Pulse Source Pulse Oximeter Pulse Oximetry (%) 93 Oxygen Delivery Method Room Air Intake Visit Reasons: PUMP ADJUSTMENT Mental Health Coordinator Required: No Allergies grass pollen Allergy (Mild, Verified 07/04/24 13:03) unknown tree and shrub pollen Allergy (Mild, Verified 07/04/24 13:03) itchy eyes, sneeze, runny nose No Known Drug Allergies Allergy (Unknown, Verified 07/04/24 13:03) none plastic tape Allergy (Unknown, Uncoded 07/04/24 13:03) irritation Medication List - Last Reconciled 07/04/24 by Gini Edmondson LPN aspirin (Adult Aspirin Regimen) 81 mg PO DAILY baclofen 20 mg PO TID bisacodyl (Dulcolax (bisacodyl)) 10 mg (2 x 5 mg) PO ONCE 2 days bupropion HCl XL 300 mg PO QAM calcium carbonate-vitamin D3 600 mg-10 mcg (400 unit) 1 tab PO BID cetirizine 1 tab PO .DAILY@NOON cholecalciferol (vitamin D3) (Vitamin D3) 25 mcg PO DAILY clonazepam 0.5 mg PO TID dapagliflozin propanediol (Farxiga) 10 mg PO DAILY diphenhydramine HCl 50 mg (2 x 25 mg) PO Q6H PRN 3 days docusate sodium 200 mg PO BID eplerenone 25 mg PO .DAILY@NOON esomeprazole magnesium 40 mg PO BID famotidine 40 mg PO BEDTIME finasteride 5 mg PO DAILY flash glucose sensor (FreeStyle Verito 2 Sensor kit) As directed fluticasone propionate 50 mcg/actuation 1 spray intranasal DAILY gabapentin 300 mg PO DAILY glipizide 5 mg PO DAILY hydroxyzine pamoate 25 mg PO BID PRN isosorbide mononitrate ER 2 tabs PO QAM L.acidophil-L.plantar-Bifido 7 25 billion cell (up4 Probiotics Adult 50 Plus) 1 cap PO BID 14 days lisinopril 10 mg PO DAILY melatonin 10 mg PO BEDTIME methylnaltrexone (Relistor) 450 mg (3 x 150 mg) PO QAM mirtazapine 1 tab PO BEDTIME naloxone 4 mg/actuation 4 mg intranasal Q3M PRN 1 day nitroglycerin 0.4 mg sublingual ONCE PRN pen needle, diabetic As directed pilocarpine HCl 5 mg PO BID plecanatide (Trulance) 3 mg PO DAILY polyethylene glycol 3350 (Miralax) 17 grams PO DAILY 1 day prazosin 5 mg PO DAILY primidone 250 mg PO BID rivaroxaban (Xarelto) 20 mg PO DAILY@1700 rosuvastatin 40 mg PO DAILY sertraline 150 mg PO BEDTIME sodium,potassium,mag sulfates 17.5-3.13-1.6 gram (Suprep Bowel Prep Kit) DILUTE each bottle with 16oz of water; drink first bottle 5pm evening before procedure AND second bottle at 11pm; follow each bottle with at least 32 oz.of water within 1 hour after each bottle sucralfate 1 g PO BID tamsulosin 0.4 mg PO .BID@NOON+BEDTIME torsemide 20 mg PO DAILY HPI Comments Details: Malik is in my office today to adjust his pump. He reports continuous nausea and vomiting starting to about 01:00 at daytime. He denies nausea and vomiting in the morning. He has firmly convinced that this nausea and vomiting is from the pain pump. Honestly I do not believe so however following insistence of the patient I turn the pump today on moderate. His rate is today 0.9 micro g of hydromorphone a day I do not believe this is significant concentration of hydromorphone to show any side effects. To help patient with withdrawal I will prescribe for him small dose of hydromorphone 2 mg b.i.d. I also will prescribe him hydroxyzine p.r.n. and clonidine p.r.n. I explained to the patient that clonidine he would need to take if he feel tachycardic on withdrawal and hydroxyzine he would need to take if he feels agitated and restless. Patient expressed understanding. I will see patient on Tuesday. Prior: History of bilateral paintech sacroiliac joint stabilization with fusion. He had significant improvement however he fell in his kitchen and started to experience lot of pain again. He was sent for the x-ray of the pelvis and it appears to be that although both implantation elements are in sacroiliac joints 1 of them got shifted vertical it to the upper portion of the joint and now has a lesser chance to provide enough of the space to form the sacroiliac bridge. Most likely that is why patient started to experience pain again. We decided to treat his pain with addition of the opioids into intrathecal pain pump. For his next pump refill I will fill it up with hydromorphone 150 micro g per mL and bupivacaine 8 milligrams/mL. I will continue to increase concentration of hydromorphone until patient's satisfaction. To temporize his pain level now I will prescribe him short course of Percocet see as below. He is interested in sacroiliac joint fusion now performed by the surgeon with surgical screws. We will find out where this procedure can not be performed and we will refer patient there. He also would like to call [employer] site safety representative and ask him to increase stimulation levels on the machine Prior: This patient is very unfortunate gentleman who is suffering from multiple pain generators. He received multiple forms of treatment to concur the existing pain generators pain. He tried multiple sessions of physical therapy in the past and he continues from time to time to return to his home exercise program to help his pain. He tried multiple medications including NSAIDs muscle relaxants and opioids. NSAIDs give him severe side effects. He is very much concerned about addictive properties of opioids. He reports muscle relaxants help his pain minimally if any. He in the past was injected with multiple procedures including medial branch blocks, radiofrequency ablations, facet joint injections, and eventually he was not very satisfied with results of this injections. He was implanted with Nevro spinal cord stimulator which he reports helped his pain radiating into the bilateral lower extremities. He also reported axial back pain aggravated with sitting and flexing forward and on the MRI he was discovered with Modic type changes in the lumbar spine. Intraseptal procedure was performed with good results for pain aggravated with prolonged sitting however pain which is lower than the lumbar spine in the projection of his pelvis actually getting worse background of alleviated lumbar spine pain. To treat this condition he was implanted with intrathecal pain pump however the intrathecal pain pump was not very instrumental to alleviate his pain. He still receives intrathecal pain pump bupivacaine only however reports significant and advanced pain in the projection of the bilateral sacroiliac joints. He had MRI of the lumbar spine which did not demonstrate any red flags and he did have abdominal and pelvic CT scan which did not demonstrate in pelvis any abnormalities which could be suspected as the pain generators related to sacroiliac joint, sacral bones or iliac bones. 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, lumbar region PVD (peripheral vascular disease) Mood disorder On beta ruddy at home Benign essential tremor CVA (cerebral vascular accident) IDDM (insulin dependent diabetes mellitus) Sleep apnea Chronic renal insufficiency Myocardial infarction CHF (congestive heart failure) CAD (coronary artery disease) AAA (abdominal aortic aneurysm) Arrhythmia On anticoagulant therapy Elevated cholesterol HTN (hypertension) History of ischemic cardiomyopathy 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 Surgical History (Updated 05/21/24 @ 10:18 by Niki Ortiz, CRISTELA) History of surgery History of surgery (~2023) Hx of brain surgery (05/10/24) Hx of shoulder surgery History of laparoscopic cholecystectomy (12/08/22) History of surgery History of surgery History of PTCA Hx of parathyroidectomy Hx of CABG History of hernia repair Hx of gastric bypass Hx of endoscopy History of colonoscopy Family History Father Hx of congenital heart disease Mother Hx of heat stroke Social History (Updated 05/21/24 @ 09:54 by Niki Ortiz, CRISTELA) Household Members: None Housing: Apartment Are you a primary health care aide to a significant other at home: No Do you presently have visiting nurse or other home services: Yes ([employer] 2 hours per week) Alcohol intake: current Alcohol intake frequency: does not drink Comment: counts correct Patient Tobacco Use Status: Former Tobacco user Tobacco use type: Cigarette Second Hand Smoke Exposure: No Review of Systems Const All systems reviewed & are unremarkable except as noted in HPI and below ENT Reports Normal hearing present Neuro Reports Normal hearing present and Denies Abnormal speech present Physical Exam Vital Signs: Last Vital Signs Pulse 82 07/04/24 12:56 Resp 16 07/04/24 12:56 BP 132/78 07/04/24 12:56 Pulse Ox 93 07/04/24 12:56 Oxygen Delivery Method Room Air 07/04/24 12:56 BMI result Body Mass Index 30.1 Const General: cooperative, no acute distress, alert and well groomed Orientation/consciousness: patient oriented x3 HEENT Head: Yes normocephalic and Yes atraumatic Ears: hearing grossly normal bilaterally Eyes General: appearance normal, both eyes and all related structures Eyelids: Yes eyelids normal Pupils: Equal, round and reactive pupils present EOM: EOMs intact bilaterally Neck Neck: Yes normal visual inspection and Yes no JVD Resp Effort & Inspection: normal respiratory effort, able to speak in complete sentences and no audible wheezes Cardio Jugular venous distension: no JVD Back/Spine/Pelvis Other: Tenderness of palpation paraspinal spinal region in the entire spine cervical thoracic and lumbar. SLR is negative with foot dorsiflexion. Flexing forward aggravates the pain. Flexing backwards does not change the pain. James test, Gaenslen test, pelvic compression test, pelvic destruction test, positive on the left as well as on the right. Neuro General: patient oriented x3, moves all extremities and Normal light touch and pain sensation Cranial nerves: Yes Equal, round and reactive pupils present and Yes Normal hearing present Cognition (Neuro): normal cognition Speech: No Abnormal speech present Assessment & Plan Assessment & Plan (1) Chronic left sacroiliac joint pain: Code(s): M53.3 - Sacrococcygeal disorders, not elsewhere classified; G89.29 - Other chronic pain Category: Medical (2) Sacroiliitis: Code(s): M46.1 - Sacroiliitis, not elsewhere classified Category: Medical (3) Vertebrogenic low back pain: Code(s): M54.51 - Vertebrogenic low back pain Category: Medical (4) Chronic pain syndrome: Code(s): G89.4 - Chronic pain syndrome Category: Medical (5) Poorly controlled type 2 diabetes mellitus: Code(s): E11.65 - Type 2 diabetes mellitus with hyperglycemia Category: Medical Plan Intrathecal pain pump adjustment see as above. I will see the patient on 07/09/2024 to discuss possibility of either replacing medication with another medication in his pump or possibly changing medication in his pump for normal saline to convinced the patient that his nausea and vomiting is not coming from the pump. I believe he needs to go to primary care physician and check his Chem 20 possibility exists that his pancreatitis got exacerbated. Medications: New hydroxyzine HCl 25 mg PO BID PRN 40 tabs 4RF anxiety 20 days hydromorphone Partial Fill upon patient request. 2 mg PO TID PRN 12 tabs 0RF severe pain and opioid withdrowal 6 days clonidine HCl 0.1 mg PO BID PRN 40 tabs 4RF opioid withdrawal, tachicardia 20 days Coding Level of Care Code Est Pt Level 3 (53372) Diagnoses Chronic left sacroiliac joint pain M53.3; G89.29 Sacroiliitis M46.1 Vertebrogenic low back pain M54.51 Chronic pain syndrome G89.4 Poorly controlled type 2 diabetes mellitus E11.65
--- OUTSIDE RECORDS SUMMARY | 2024-07-04 13:03 | XMS_ITS | Referral Summary ---
Author Organization [facility] Address [address] [place] [address] Care Team Providers Care Medicare Coordinator Name Role Phone Bea Lacey Primary Care Provider [phone] Allergies No known active allergies Medications buPROPion [...] I'd recommend he obtain clearance from his carpet cutter given his history of multiple coronary events. I would also want to seek further clarification from his neurosurgeon as to what other clearance is being sought from the neurologist's standpoint. I will be reaching out to Dr. Payan's office. CAD in grayling artery 01/28/2022 Overview (12/30/2023): CABG with multiple [...] of Treatment Not on file Insurance MEDICARE [facility] Care Teams Medicare Coordinator Relationship Specialty Start Date End Date Bea Lacey [address] [place], [place] [address] [address] PCP - General Family Medicine 12/26/23
--- OUTSIDE RECORDS SUMMARY | 2024-07-04 13:03 | XMS_ITS | Encounter Summary ---
Author Organization [employer] Address [address] [facility] [address] [place] [address] Care Team Providers Care Outdoor Landscape Architect Name Role Phone Bea Lacey MD Primary Care Provider [phone] Reason for Visit * Reason Comments Med Refill Encounter Details Date Type Department Care Team (Late st Contact Info) Description 02/06/2024 Refill [facility] DIABETES/NUTRITION [address] [place] [address] Bea Lacey MD [address] [place], [place] [id number] Type 2 diabetes mellitus with hyperglycemia, without long-term current use of insulin ([facility]) Social History Tobacco Use Types Packs/Day Years [...] [facility] MED & PEDS [address] [place] [address] Bea Lacey MD [address] [place] [address] 08/03/2024 2:30 PM EDT Medication Management [facility] MED & PEDS [address] [place] [address] Mariely Dennison, PharmD [address] [place] [address] 08/06/2024 1:00 PM EDT Office Visit [facility] ADULT DENTAL [address] [place] [address] Sebastián Quintero DDS [address] [place] [address] 12/14/2024 2:00 PM EDT Office Visit [facility] ADULT DENTAL [address] [place] [address] Daniele Barlow documented as of this encounter Visit Diagnoses Diagnosis Type 2 diabetes mellitus with hyperglycemia, without long-term current use of insulin ([facility]) documented in this encounter Additional Health Concerns Assessment Noted Time PHQ-9 Depression Total Score: 20 04/12/2 024 10:22 AM EDT documented as of this encounter Care Teams Outdoor Landscape Architect Relationship Specialty Start Date End Date Bea Lacey MD [address] [place] [id number] PCP - General Family Medicine 09/22/22 documented as of this encounter
--- OUTSIDE RECORDS SUMMARY | 2024-07-04 13:03 | XMS_ITS | Encounter Summary ---
Author Organization [employer] Address [address] [facility] 7t [place] [address] Care Team Providers Care Pattern Designer Name Role Phone Bea Lacey MD Primary Care Provider [phone] Reason for Visit * Reason Onset Date Comments Nurse Triage 02/08/2024 Encounter Details Date Type Department Care Team ([facility] st Contact Info) Description 02/08/2024 Telephone [facility] MEDICINE [address] [place] [address] Bea Lacey MD [address] [place], [place] [phone] Nurse Triage Social History Tobacco Use Types [...] Description 07/26/2024 9:30 AM EDT Office Visit [facility] MED & PEDS [address] [place] [address] Bea Lacey MD [address] [place] [address] 08/03/2024 2:30 PM EDT Medication Management [facility] MED & PEDS [address] [place] [address] Mariely Dennison, PharmD [address] [place] [address] 08/06/2024 1:00 PM EDT Office Visit [facility] ADULT DENTAL [address] [place] [address] Sebastián Quintero DDS [address] [place] [address] 12/14/2024 2:00 PM EDT Office Visit [facility] ADULT DENTAL [address] [place] [address] Daniele Barlow documented as of this encounter Visit Diagnoses Not on filedocumented in this encounter Additional Health Concerns Assessment Noted Time PHQ-9 Depression Total Score: 20 024 10:22 AM EDT documented as of this encounter Care Teams Pattern Designer Relationship Specialty Start Date End Date Bea Lacey MD [address] [place] [id number] PCP - General Family Medicine 09/22/22 documented as of this encounter
--- OUTSIDE RECORDS SUMMARY | 2024-07-04 13:03 | XMS_ITS | Encounter Summary ---
Author Organization [employer] Address [address] [facility] [address] [place] [address] Care Team Providers Care Proof Plate Maker Name Role Phone Bae Lacey MD Primary Care Provider [phone] Reason for Visit * Reason Onset Date Comments Nurse Triage 04/03/2024 Encounter Details Date Type Department Care Team ([facility] st Contact Info) Description 04/03/2024 Telephone [facility] MEDICINE [address] [place] [address] Bea Lacey MD [address] [place], [place] [phone] Nurse Triage Social History Tobacco Use Types [...] and is followed by Pain management at [facility]. Has not notified that Dept at this [...] a new brain surgery on 04/05/24 at [facility]. Disposition reviewed and patient in agreement with plan. Will call to follow with appt. scheduling when recovered from procedure at [facility]. Patient requests that PCP be updated. Forwarded to PCP as patient requested. Protocol Used: Chest Pain (Adult) Protocol-Based Disposition: See in Office or Video Visit Today Override (Final) Disposition: Refer to Specialist Override Reason: Caller refused suggested disposition Override Notes: Patient followed by [facility] Pain Management but wants PCP updated Video [...] acuity questions The caller accepted this outcome. [phone] documented in this encounter Plan of Treatment Upcoming Encounters Date Type Department Care Team (Late st Contact Info) Description 07/26/2024 9:30 AM EDT Office Visit [facility] MED & PEDS [address] [place] [address] Bea Lacey MD [address] [place] [address] 08/03/2024 2:30 PM EDT Medication Management [facility] MED & PEDS [address] [place] [address] Mariely Dennison, PharmD [address] [place] [address] 08/06/2024 1:00 PM EDT Office Visit [facility] ED ADULT DENTAL [address] [place] [address] Sebastián Quintero DDS [address] [place] [address] 12/14/2024 2:00 PM EDT Office Visit [facility] ED ADULT DENTAL [address] [place] [address] Daniele Barlow documented as of this encounter Visit Diagnoses Not on filedocumented in this encounter Additional Health Concerns Assessment Noted Time PHQ-9 Depression Total Score: 20 024 10:22 AM EDT documented as of this encounter Care Teams Proof Plate Maker Relationship Specialty Start Date End Date Bea Lacey MD [address] [place] [id number] PCP - General Family Medicine 09/22/22 documented as of this encounter
--- OUTSIDE RECORDS SUMMARY | 2024-07-04 13:03 | XMS_ITS | Continuity of Care Document ---
Author Organization [facility] Neurosur[facility] y Address [address] [place] [address] [address], [address] [place] [address]- Care Team Providers Care Telesales Consultant Name Role Phone Bea Lacey MD Primary Care Physician [place] [facility] [place](s): 06/25/24 - 07/02/24 [facility] Neuro[facility] [address] [place] [address] Drive [address] [place], [place] [address] Attending Physician: Darci Payan MD Encounter Type: Office Visit Allergies, Adverse Reactions, Alerts No Known Medication Allergies Substance Criticality Severity Reaction Reaction Severity Status Grass Unable to assess criticality Intermittent watery eyes/runny nose Active Immunizations Given and Recorded Vaccine Date Status Refusal Reason [id number] 12y+ bivalent booster vax 12/08/21 Recorded SARS-CoV-2 (COVID-19) mRNA BNT-162b2 vac 12/24/20 Recorded SARS-CoV-2 (COVID-19) mRNA-1273 vaccine 05/27/20 R ecorded SARS-CoV-2 (COVID-19) mRNA-1273 vaccine 04/29/20 R ecorded pneumococcal 23-valent vaccine 04/26/12 Given influenza virus vaccine, inactivated 04/26/12 Give n Pneumococcal Vaccine (oldterm) 1 01/01/06 Given 1Result Comment: lot # [id number] EXP 08/20/06 PT INFO 09/04/04 Medications aspirin [...] 11 Refills, Maintenance, 12/13/23 12:27:00 PM EDT, [facility], Partial fill upon patient [...] 9:46:00 AM EDT, Route to Pharmacy Electronically, [facility], Partial fill upon patient request [...] 3 Refills, Maintenance, 02/03/24 8:19:00 AM EST, [facility], 172.72, cm, 01/30/24 9:29:00 EST, [...] 3 Refills, Maintenance, 05/01/24 10:25:00 AM EDT, [facility], 172, cm, 05/01/24 8:22:00 EDT, Height, 88.5, kg, 04/05/24 8:14:00 EST,Dry Weight Start Date: 05/01/24 Status: Ordered Quantity: 180.0 Unit: tablet Repeat number: 1 lisinopril 10 mg oral tablet 10 mg, 1, tablet, By Mouth, Daily, # 90 tablet, Refills 4, Tot. Refills 4, Maintenance, 12/12/23 2:14:00 PM EDT, Route to Pharmacy Electronically, [facility], Partial fill upon patient [...] Refills, Maintenance, 11/02/22 4:26:00 PM EDT, Tablet, [facility], Partial fill upon patient [...] 3 Refills, Maintenance, 03/02/24 8:06:00 AM EST, [facility], 172.72, cm, 02/07/24 12:51:00 EST, [...] Condition Confirmation Course Effective Dates Status H ealt Status Informant AAA (abdominal aortic aneurysm) Confirmed [...] oldest [Reference Range]: 1 Height 172.72 cm (06/25/24 2:42 PM) Weight 88 kg (06/25/24 2:42 PM) Body Mass Index [18.5-24.99 kg/m2] 29.5 kg/m2 *H* (06/25/24 2:42 PM) Dry Weight 88 kg (06/25/24 2:42 PM) Weight Obtained Via Patient/family state d (06/25/24 2:42 PM) Dry Weight Obtained Via Patient/family s tated (06/25/24 2:42 PM) Social History Social History Type Response Smoking Status Former smoker; Tobac co user in household: No; Other: pt states he quit smoking 1988; entered on: 07/14/15 Sex Sex Representation Male (finding) Patient Care team information Care Team Personnel Name: Darci Ayala RN Position: [facility] ED RN W/OE and Tasks Member Role: Primary Care Nurse Name: Niharika Reza RN Position: [facility] SN RN Member Role: Primary Care Nurse Name: Veronica Kapoor RN Position: [facility] RN Member Role: Primary Care Nurse Name: Paula Garcia RN Position: [facility] RN Member Role: Primary Care Nurse Name: Jocelyn Villanueva RN Position: [facility] SN RN Member Role: Primary Care Nurse Name: Roseann Sullivan RN Position: [facility] RN Member Role: Primary Care Nurse Name: Casimiro Alarcon RN Position: [facility] RN Member Role: Primary Care Nurse Name: Brenda Orr RN Position: [facility] RN Member Role: Primary Care Nurse Name: Chasidy Woodard RN Position: [facility] RN Member Role: Primary Care Nurse Name: Annalisa Aguilar RN Position: [facility] RN Member Role: Primary Care Nurse Name: Heavenly Sen RN Position: [facility] Hospital Scientist Propagator Member Role: Primary Care Nurse Name: Nasima Garcia NP Position: Reference Physician Member Role: Primary Care Nurse Address: [address] [place] [phone]- [place] Telecom: Name: Bea Lacey MD Position: [facility] Outreach Member Role: PCP Address: [address] [place] [address]- [place] Tele[employer]: Name: Itzel Tirado MD Position: [facility] Cardiology MD Member Role: Lifetime Consulting Physician Address: [address] [place], [place] [address], [place] [address]- [place] Telecom: Name: Elena Pyle RN Position: S RN Member Role: Primary Care Nurse Name: Lalito Wheeler RN Position: S RN Member Role: Primary Care Nurse Name: Beatriz Lawrence RN Position: [facility] SN RN Member Role: Primary Care Nurse Name: Dorothea Fong RN Position: [facility] SN RN Member Role: Primary Care Nurse Name: Get Galo MD Position: [facility] Renal MD Member Role: Lifetime Consulting Physician Address: [address] [place] [address] [address] [facility] [place] [address]- Telecom: Name: Lucy Bradford RN Position: S RN Member Role: Primary Care Nurse Name: Familia Rivas NP Position: Reference Physician Member Role: Primary Care Nurse Address: [address] [place] [address] Telecom: Care Team Related Persons Name: JOSE ALBERTO VARGAS Insurance Providers Guarantor name: SHERLY VARGAS Health Plan Information #: 2 Payer: [employer] Member Number: [id number] Policy Number: NA Group Number: NA Health Plan Information #: 1 Payer: MEDICARE PART B OUTPT Member Number: [id number] Policy Number: NA Group Number: NA
--- OUTSIDE RECORDS SUMMARY | 2024-07-04 13:03 | XMS_ITS | Clinical Summary ---
Author Organization [employer] Address [address] [place] [address] Care Team Providers Care Umbrella Tipper Name Role Phone Bea Lacey MD Primary Care Provider [phone] Allergies Active Allergy Reactions Criticality Noted Date [...] DAILY FOR ALLERGY 5 mL 11 Active glucose-vitamin C 4-6 GM-MG oral gel [...] doses, call 911 if sx persist Active mirtazapine (Remeron) 7.5 MG tablet Take 1 tablet by mouth at bed time. Active zinc gluconate 50 MG tablet Active rivaroxaban (Xarelto) 20 MG tablet Take 1 tablet by mouth with evening meal. Active torsemide (Demadex) 20 MG tablet take 2 tablets AM AND PM Active prazosin (Minipress) 5 MG capsule Take 1 capsule by mouth every 12 (twelve) hours. Active isosorbide mononitrate ER (Imdur) 60 MG 24 hr tablet Take 2 tablets by mouth in the morning. Active ipratropium (Atrovent) 0.06 % nasal spray Administer 2 sprays into affected nostril(s) in the morning and 2 sprays at noon and 2 sprays in the evening. Active Blood Pressure Monitor kit Check BP daily 1 kit Active Alcohol Swabs (Alcohol Pads) 70 % pads 1 Units 3 times daily. 100 each 11 024 Active fluticasone (Flonase) 50 MCG/ACT nasal spray INHALE ONE SPRAY IN EACH NOSTRIL TWICE DAILY NEEDED FOR ALLERGIES 48 g 4 024 Active esomeprazole (NexIUM) [address] capsule TAKE ONE CAPSULE TWICE DAILY IN THE MORNING AND AT BEDTIME Active Methylnaltrexone [place] (Relistor) 150 MG tablet Active Narcan 4 MG/0.1ML nasal spray FOR SUSPECTED OPIOID OVERDOSE. SPRAY 0.1mL IN ONE NOSTRIL. REPEAT IN ALTERNATE NOSTRIL EVERY 2-3 MINUTES IF NEEDED. SEEK MEDICAL ATTENTION IMMEDIATELY EVEN IF PT RESPONDS. Active oxyCODONE (Roxicodone) 5 MG immediate release tablet TAKE ONE TABLET EVERY 8 HOURS NEEDED FOR post-op PAIN FOR THE NEXT 14 DAYS 024 Active glucose 4 g chewable tablet Chew 16 g if needed for low blood sugar. Active TRUEplus Glucose 4 g chewable tablet Chew 4 tablets (16 g) if needed for low blood sugar 40 tablet 1 024 Active Calcium Carb-Cholecalcife rol (Calcium + Vitamin D3) 600-10 MG-MCG tabletIndications :Vitamin D deficiency Take 600 mg by mouth 2 times daily. TAKE ONE TABLET IN THE MORNING AND EVENING 60 tablet 11 024 Active baclofen (Lioresal) 20 MG tabletIndications :Muscle spasm TAKE ONE TABLET AT NOON, EVENING, AND BEDTIME NEEDED FOR MUSCLE SPASMS 90 tablet 5 024 Active glipiZIDE (Glucotrol) 5 MG tablet Take 1 tablet (5 mg) by mouth Once per day. 30 tablet 11 025 2025 Active Blood Glucose Monitoring Suppl (FreeStyle [place] Lite) w/Device kit TEST BLOOD SUGAR DAILY 1 kit 025 Active glucose blood (FREESTYLE LITE) test stripIndications: Type 2 diabetes mellitus with hyperglycemia ([facility]) Test sugars daily 100 strip 11 Active FreeStyle lancets 1 each by Other route Once per day. 100 each 025 2025 Active polyethylene glycol, PEG, 3350 (MiraLax) 17 [...] AND EVENING 60 tablet 3 025 Active Aspirin Adult Low Strength 81 [...] NEEDED FOR CONGESTION 60 tablet 025 Active hydrOXYzine pamoate (Vistaril) 25 MG capsuleIndication s:Anxiety TAKE ONE CAPSULE IN THE MORNING AND EVENING NEEDED FOR ANXIETY 60 capsule 1 025 Active sertraline (Zoloft) 100 MG tablet TAKE 1&1/2 TABLETS AT BEDTIME 025 Active Trulance tablet tablet Take 1 tablet by mouth Once per day. Active lisinopril 10 MG tablet TAKE ONE TABLET EVERY EVENING Active eplerenone (Inspra) 25 MG tablet TAKE ONE TABLET DAILY AT NOON Active Farxiga 10 MG Take 10 mg by mouth in the morning. Active Continuous Glucose Sensor (FreeStyle Verito 3 Plus Sensor) [facility] [place] [place] 1 each every 15 days. 2 each 025 Active zaleplon (Sonata) 5 MG capsule Take 1 capsule by mouth at bed time. 2024 Discontinued(M ed list cleanup (will not trigger notification to Pharmacy)) metoprolol succinate XL (Toprol-XL) 25 MG 24 hr tablet Take 0.5 tablets by mouth 1 (one) time each day. 2024 Discontinued(M ed list cleanup (will not trigger notification to Pharmacy)) sertraline (Zoloft) 50 MG tablet Take 1 tablet by mouth 1 (one) time each day. 022 2024 Discontinued(M ed list cleanup (will not trigger notification to Pharmacy)) spironolactone (Aldactone) 25 MG tablet Take 1 tablet by mouth 1 (one) time each day. 2024 Discontinued(M ed list cleanup (will not trigger notification to Pharmacy)) lisinopril 5 MG tablet Take 1 tablet by mouth 1 (one) time each day. 2024 Discontinued(M ed list cleanup (will not trigger notification to Pharmacy)) gabapentin (Neurontin) 100 MG capsule Take 1 capsule by mouth every 12 (twelve) hours. 2024 Discontinued(M ed list cleanup (will not trigger notification to Pharmacy)) tamsulosin (Flomax) 0.4 MG 24 hr capsule Take 1 capsule by mouth at bedtime. 2024 Discontinued(M ed list cleanup (will not trigger notification to Pharmacy)) finasteride (Proscar) 5 MG tablet Take 1 tablet by mouth at bedtime. 2024 Discontinued(M ed list cleanup (will not trigger notification to Pharmacy)) chlorhexidine (Peridex) 0.12 % solution RINSE FOR 30 SECONDS WITH A HALF OUNCE (15ML) TWICE DAILY AFTER MEALS. SPIT OUT--DO NOT SWALLOW. 473 mL 023 2024 Discontinued insulin pen needle (BD Pen Needle Flores U/F) 32G x 4 mm misc USE ONCE DAILY 100 each 11 024 2024 Discontinued(M ed list cleanup (will not trigger notification to Pharmacy)) HYDROcodone-aceta minophen (Paragon) 5-325 MG tablet Take 1 tablet by mouth every 6 (six) hours if needed. 2024 Discontinued(M ed list cleanup (will not trigger notification to Pharmacy)) methylPREDNISolon e (Medrol Dospak) 4 MG tablets TAKE DIRECTED ON PACKAGE with food 023 2024 Discontinued(M ed list cleanup (will not trigger notification to Pharmacy)) metoclopramide (Reglan) 10 MG tablet TAKE ONE TABLET EVERY 6 HOURS NEEDED FOR NAUSEA AND VOMITING 023 2024 Discontinued(M ed list cleanup (will not trigger notification to Pharmacy)) terbinafine (LamISIL) 250 MG tablet Take 250 mg by mouth Once per day. 024 2024 Discontinued(M ed list cleanup (will not trigger notification to Pharmacy)) amoxicillin (Amoxil) 500 MG capsule Take 4 tabs an hour before dental appointment 20 capsule 024 2024 Discontinued(D uplicate order (will not trigger notification to Pharmacy)) dapagliflozin (Farxiga) 5 MG Take 1 tablet (5 mg) by mouth before lunch. 30 tablet 11 025 2024 Discontinued(M ed list cleanup (will not trigger notification to Pharmacy)) Continuous Glucose Sensor (Voice2InsightStyle Verito 2 Sensor) miscIndications:T ype 2 diabetes mellitus with hyperglycemia ([facility]) USE DIRECTED AND CHANGE EVERY 14 DAYS 2 each 3 2024 Discontinued(A lternate therapy) pseudoephedrine ER (Sudafed-12 Hour) 120 MG 12 hr tablet Take 1 tablet (120 mg) by mouth every 12 (twelve) hours if needed for congestion. 60 tablet 025 2024 Discontinued hydrOXYzine pamoate (Vistaril) 25 MG capsuleIndication s:Anxiety TAKE ONE CAPSULE IN THE MORNING AND EVENING NEEDED FOR ANXIETY 60 capsule 1 025 2024 Discontinued Active Problems Problem [...] to surgery has appointment next week at [facility]. On examination no warning signs Chronic abdominal [...] 3 secondary to diabetes 01/28/2022 CAD in [place] artery 01/28/2022 Type 2 diabetes mellitus wit [...] Encounters Date Type Department Care Team Description 07/03/2024 Travel 06/30/2024 Refill [facility] [address] [place] [address] Bea Lacey MD Anxiety 06/26/2024 Telephone [facility] [address] [place] [address] Sebastián Quintero DDS returning call RCT appt 06/21/2024 Refill [facility] [address] [place] [address] Bea Lacey MD 06/20/2024 8:45 AM EDT Telemedicine [facility] [address] [place] [address] Bea Lacey MD Diverticulitis (Primary Dx); Type 2 diabetes mellitus with hyperglycemia, without long-term current use of insulin (CMS/HCC) 06/20/2024 Travel 06/19/2024 Orders Only [facility] [address] [place] [address] Bea Lacey MD Type 2 diabetes mellitus with other circulatory complication, without long-term current use of insulin (CMS/HCC) (Primary Dx) 06/15/2024 2:00 PM EDT Office Visit [facility] [address] [place] [address] Liliana Stephen 06/14/2024 Telephone [facility] [address] [place] [phone] Bea Lacey MD Durable Medical Equipment 06/04/[address] [address] Baylee De La Torre, [place] 06/01/2024 1:00 PM EDT Office Visit [facility] [address] [place] [address] Adeola Spencer MD Type 2 diabetes mellitus with other circulatory complication, without long-term current use of insulin (CMS/HCC) (Primary Dx); Multiple episodes of hypoglycemia; Chronic constipation 06/01/2024 Travel 05/31/2024 Telephone [facility] [address] [place] [address] Bea Lacey MD Medication Question 05/29/2024 Refill [facility] [address] [place] [address] Bea Lacey MD Essential tremor 05/29/2024 Refill [facility] [address] [place] [address] Martin Gordon Rocha MD Gastroesophageal reflux disease without esophagitis 05/28/2024 Telephone [facility] [address] [place] [address] Bea Lacey MD Referral 05/26/2024 Refill [facility] [address] [place] [address] Bea Lacey MD Chronic idiopathic constipation 05/21/2024 Telephone [facility] [address] [place] [address] Bea Lacey MD Referral 05/21/2024 Telephone [facility] [address] [place] [address] Bea Lacey MD 05/01/2024 Refill [facility] [address] [place] [address] Bea Lacey MD Chronic allergic rhinitis 04/25/2024 11:30 AM EST Telemedicine [facility] [address] [place] [address] Bea Lacey MD Rib pain on right side (Primary Dx) 04/25/2024 Travel 04/23/2024 Refill [facility] [address] [place] [address] Bea Lacey MD Gastroesophageal reflux disease without esophagitis; Anxiety 04/19/2024 1:00 PM EST Office Visit [facility] [address] [place] [address] Paula Nichols DMD from Last 3 Months Immunizations Immunization Administration Dates Next Due Hep B, adult [...] Description 07/26/2024 9:30 AM EDT Office Visit [facility] [address] [place] [address] Bea Lacey MD [address] [place] [address] 08/03/2024 2:30 PM EDT Medication Management [facility] [address] [place], [place] [phone] Mariely Dennison, PharmD [address] [place] [address] 08/06/2024 1:00 PM EDT Office Visit [facility] [address] [place] [address] Sebastián Quintero DDS [address] [place] [address] 12/14/2024 2:00 PM EDT Office Visit [facility] [address] [place] [address] Daniele Barlow Health Maintenance Due Date Last [...] RADIOGRAPHIC IMAGES Routine 11/09/2023 11:00 AM EDT [facility] HISTORICAL HEPATITIS C AB W/REFL TO HCV RNA, QN, PCR Routine 10/15/2019 1:23 PM EDT HM COLONOSCOPY Routine 03/14/2014 12:17 PM EST from Last 3 Months or Most Recently Relevant to Health Maintenance Results * POCT HGB A1C (06/01/2024 1:53 PM EDT) Pathologist [facility] Hemoglobin A1C 6.0 4.0 - 6.0 % QC Media Lot # [id number] Lot# Expiration Date Blood 06/01/2024 1:53 PM EDT Adeola Spencer MD POINT OF CARE TEST ENTER/EDIT ORDERABLES Final Result * (ABNORMAL) POCT Glucose (06/01/2024 1:53 PM EDT) Pathologist [facility] Glucose Blood, POC 228(A) 60 - 200 mg/dL QC Media Lot # [id number] Lot# Expiration Date Blood Capillary blood specimen / Unknown 06/01/2024 1:53 PM EDT Adeola Spencer MD POINT OF CARE TEST ENTER/EDIT ORDERABLES Final Result * TSH W/Reflex to FT4 (06/01/2024 1:39 PM EDT) Pathologist [facility] TSH reflex Free T4 1.48 0.32 - 4.0 uIU/mL [facility] Blood Venous blood specimen / Unknown 06/01/2024 1:39 PM EDT 06/01/2024 2:14 PM EDT Adeola Spencer MD LAB BLOOD ORDERABLES Final Re sult [facility] [address] [place] [phone] * (ABNORMAL) CBC auto differential (06/01/2024 1:39 PM EDT) [facility] White Blood Count 7.6 4.8 - 10.8 X10*3/uL [facility] Red Blood Count 4.98 4.60 - 5.80 X10*6/uL [facility] Hemoglobin 13.1(L) 14.0 - 18.0 g/dl [facility] Hematocrit 41.9(L) 42.0 - 52.0 % [facility] Mean Corpuscular Volume 84.1 80.0 - 98.0 fL [facility] Mean Corpuscular Hemoglobin 26.3(L) 27.0 - 33.0 pg [facility] Mean Corpuscular HGB Conc 31.3 31.0 - 36.0 g/dl [facility] Red Cell Distribution Width 17.1(H) 11.0 - 16.0 % [facility] Platelet Count 212 160 - 400 X10*3/uL [facility] Mean Platelet Volume 11.3 9.4 - 12.4 fL [facility] Neutrophils Percent Auto 61.0 45 - 73 % [facility] Imm Gran Pct Auto 0.3 0.0 - 0.4 % [facility] Lymphocytes Percent Auto 27.2 20 - 40 % [facility] Monocytes Percent Auto 8.2 2 - 11 % [facility] Eosinophils Percent Auto 2.8 0 - 4 % [facility] Basophils Percent Auto 0.5 0 - 2 % [facility] NRBC Pct Auto 0.0 0.0 - 0.2 /100WBC [facility] Neutrophils Absolute Auto 4.6 2.0 - 8.3 x10*3/uL [facility] Imm Gran Abs Auto 0.02 0.00 - 0.03 X10*3/uL [facility] Lymphocytes Absolute Auto 2.1 1.2 - 4.9 X10*3/uL [facility] Monocytes Absolute Auto 0.6 0.1 - 1.2 X10*3/uL [facility] Eosinophils Absolute Auto 0.2 0.0 - 0.4 X10*3/uL [facility] Basophils Absolute Auto 0.0 0.0 - 0.2 X10*3/uL [facility] NRBC Abs Auto 0.000 0.0 - 0.012 X10*3/uL [facility] Blood Venous blood specimen / Unknown 06/01/2024 1:39 PM EDT 06/01/2024 2:14 PM EDT us Adeola Spencer MD LAB BLOOD ORDERABLES Final Re sult Performing Organization Address [facility] Co de Phone Number [facility] [address] [place] [address] [phone] * (ABNORMAL) Basic Metabolic Panel (06/01/2024 1:39 PM EDT) Sodium 140 135 - 145 mmol/L [facility] Potassium 4.0 3.3 - 5.1 mmol/L [facility] Chloride 104 96 - 108 mmol/L [facility] Carbon Dioxide 27 22 - 29 mmol/L [facility] Anion Gap 13 12 - 20 [facility] Urea Nitrogen (BUN) 20(H) 9 - 16 mg/dL [facility] Creatinine, Serum 0.98 0.5 - 1.4 mg/dL [facility] Estimated Glomerular Filt Rate >60 [facility] Comment:Chronic Kidney Disea se: Estimated GFR < 60 mL/min/1.91j5Mccylm Kidney Disease: Estimated GFR < 15 mL/min/1.73m2 Glucose 169(H) 60 - 115 mg/dL [facility] Calcium 8.9 8.4 - 10.2 mg/dL [facility] Blood Venous blood specimen / Unknown 06/01/2024 1:39 PM EDT 06/01/2024 2:14 PM EDT us Adeola Spencer MD LAB BLOOD ORDERABLES Final Re sult Performing Organization Address [facility]/ZIP Co de Phone Number [facility] [address] [place] [address] [phone] * Lipid Panel, Standard (11/10/2023 11:22 AM EDT) Triglycerides 76 <150 mg/dL [facility] Comment:Desirable Triglyceri de: less than 150 mg/dLBorderline High Triglyceride 150-199 mg/dLHigh Triglyceride: 200-499 mg/dLVery High Triglyceride: greater than or equal to 5OO mg/dL Cholesterol 110 <200 mg/dL [facility] Comment:Desirable Cholestero l: less than 200 mg/dLBorderline High Cholesterol: 200-239 mg/dLHigh Cholesterol: greater than 239 mg/dL LDL Cholesterol Calculated 50 <100 mg/dL [facility] Comment:Desirable LDL: less than 100 mg/dLNear Optimal/Above Optimal LDL: 110- 129 mg/dLBorderline High LDL: 130-159 mg/dLHigh LDL: 160-189 mg/dLVery High LDL: greater than or equal to 190 mg/dL HDL Cholesterol 45 >40 mg/dL [facility] Comment:Desirable HDL: great er than 40 mg/dL Note: This HDL assay may give artificially low results in patients with liver disease. Blood Venous blood specimen / Unknown 11/10/2023 11:22 AM EDT 11/10/2023 2:56 PM EDT Bea Lacey MD LAB BLOOD ORDERABLES Final Resul t [facility] [address] [place] [address] [phone] * HEPATITIS C AB W/REFL TO HCV RNA, QN, PCR (10/15/2019 1:23 PM EDT) HEPATITIS C ANTIBODY NON-REACT ELLE NON-REACT ELLE [facility] INDEX 0.01 <1.00 [facility] Comment: ?? HCV antibody was non-reactive. There is no laboratory ?? evidence of HCV infection. ?? In most cases, no further action is required. However, if recent HCV exposure is suspected, a test for HCV RNA (test code 24902) is suggested. ?? For additional information please refer to http://education.[employer]/faq/PUU64y0 (This link is being provided for informational/ educational purposes only.) ?? 10/15/2019 1:23 PM EDT us Gordon Rocha MD HISTORICAL/NON ORD ERABLE LABS Final Result [facility] [address] [place] [address], * Hm Colonoscopy (03/14/2014 12:17 PM EST) us Historical Provider HEALTH MAINTENANCE Final Result from Last 3 Months or Most Recently Relevant to Health Maintenance Insurance MEDICARE [facility] STAND ADULT * Guarantor: Malik Maki Account Type Relation to Patient Date of Phone Billing Address Personal/Family Self [address] [place] Care Teams Umbrella Tipper Relationship Specialty Start Date End Date Bea Lacey MD [address] [place] [phone] PCP - General Family Medicine 09/22/22
--- OUTSIDE RECORDS SUMMARY | 2024-07-04 13:03 | XMS_ITS | Encounter Summary ---
Author Organization [employer] Address [address] [facility] 7t [place] [address] Care Team Providers Care Art Manager Name Role Phone Bea Lacey MD Primary Care Provider [phone] Encounter Details Date Type Department Care Team ([facility] st Contact Info) Description 02/29/2024 Orders Only [facility] MED & PEDS [address] [place], [place] [phone] Bea Lacey MD 505 [place], [place] [phone] Type 2 diabetes mellitus with hyperglycemia (CMS/HCC) [...] [facility] MED & PEDS 505 [place] [address] Bea Lacey MD 505 [place] [address] 08/03/2024 2:30 PM EDT Medication Management [facility] MED & PEDS 505 [place] [address] Mariely Dennison PharmD [address] [place] [address] 08/06/2024 1:00 PM EDT Office Visit [facility] ADULT DENTAL 505 [place] [address] Sebastián Quintero DDS 505 [place] [address] 12/14/2024 2:00 PM EDT Office Visit [facility] ADULT DENTAL 505 [place] [address] Daniele Barlow documented as of this encounter Visit Diagnoses Diagnosis Type 2 diabetes mellitus with hyperglycemia (CMS/HCC) documented in this encounter Additional Health Concerns Assessment Noted Time PHQ-9 Depression Total Score: 20 024 10:22 AM EDT documented as of this encounter Care Teams Art Manager Relationship Specialty Start Date End Date Bea Lacey MD [address] [place] [address] PCP - General Family Medicine 09/22/22 documented as of this encounter
--- OUTSIDE RECORDS SUMMARY | 2024-07-04 13:03 | XMS_ITS | Encounter Summary ---
Author Organization [employer] Address [address] [facility] [address] [facility] [address] 7t [place] [address] Care Team Providers Care Home Office Representative Name Role Phone Bea Lacey MD Primary Care Provider [phone] Reason for Visit * Reason Onset Date Comments Med Refill 10/06/2023 Encounter Details Date Type Department Care Team ([facility] st Contact Info) Description 10/06/2023 Telephone [facility] MEDICINE 230 [place] [address] Bea Lacey MD [address] [place], [place] [phone] Med Refill Social History Tobacco Use Types [...] X 4 MM To be sent to: [facility] documented in this encounter Plan of Treatment Upcoming Encounters Date Type Department Care Team (Late st Contact Info) Description 07/26/2024 9:30 AM EDT Office Visit [facility] MED & PEDS 505 [place] [address] Bea Lacey MD 505 [place] [address] 08/03/2024 2:30 PM EDT Medication Management [facility] MED & PEDS 505 [place] [address] Mariely Dennison, PharmD 230 [place] [address] 08/06/2024 1:00 PM EDT Office Visit [facility] ADULT DENTAL 505 [place] [address] Sebastián Quintero DDS [address] [place] 12/14/2024 2:00 PM EDT Office Visit [facility] ADULT DENTAL [address] [place] [address] Daniele Barlow documented as of this encounter Visit Diagnoses Not on filedocumented in this encounter Additional Health Concerns Assessment Noted Time PHQ-9 Depression Total Score: 20 024 10:22 AM EDT documented as of this encounter Care Teams Home Office Representative Relationship Specialty Start Date End Date Bea Lacey MD [address] [place] [address] PCP - General Family Medicine 09/22/22 documented as of this encounter
--- OUTSIDE RECORDS SUMMARY | 2024-07-04 13:03 | XMS_ITS | Encounter Summary ---
Author Organization [employer] Address [address] [facility] 7t [place] [address] Care Team Providers Care Mold Builder Name Role Phone Bea Lacey MD Primary Care Provider [phone] Reason for Visit * Reason Onset Date Comments Nurse Triage 03/05/2024 Encounter Details Date Type Department Care Team ([facility] Contact Info) Description 03/05/2024 Telephone [facility] MED [facility]EDS 505 [place], [place] [phone] Bea Lacey MD 505 [place] [address] Nurse Triage Social History Tobacco Use Types [...] 9:30 AM EDT Office Visit [facility] MED & PEDS 505 [place] [address] Bea Lacey MD 505 [place] [address] 08/03/2024 2:30 PM EDT Medication Management [facility] MED & PEDS 505 [place] [address] Mariely Dennison PharmD 230 [place] [address] 08/06/2024 1:00 PM EDT Office Visit [facility] ADULT DENTAL [address] [place] [address] Sebastián Quintero, DDS 505 [place] [address] 12/14/2024 2:00 PM EDT Office Visit [facility] ADULT DENTAL [address] [place] [address] Daniele Barlow documented as of this encounter Visit Diagnoses Not on filedocumented in this encounter Additional Health Concerns Assessment Noted Time PHQ-9 Depression Total Score: 20 024 10:22 AM EDT documented as of this encounter Care Teams Mold Builder Relationship Specialty Start Date End Date Bea Lacey MD 230 [place] [address] PCP - General Family Medicine 09/22/22 documented as of this encounter
--- OUTSIDE RECORDS SUMMARY | 2024-07-04 13:03 | XMS_ITS | Encounter Summary ---
Author Organization [employer] Address [address] [facility] 7t [place] [address] Care Team Providers Care Servicer Travel Trailers Name Role Phone Bea Lacey MD Primary Care Provider [phone] Reason for Visit * Reason Comments Med Refill Encounter Details Date Type Department Care Team ([facility] st Contact Info) Description 03/16/2024 Refill [facility] CHC MED & PEDS [address] [place], [place] [phone] Bea Lacey MD 505 [place], [place] [phone] Social History Tobacco Use Types Packs/Day Years [...] Description 07/26/2024 9:30 AM EDT Office Visit [facility] MED & PEDS [address] [place] [address] Bea Lacey MD 505 [place] [address] 08/03/2024 2:30 PM EDT Medication Management [facility] MED & PEDS 505 [place] [address] Mariely Dennison PharmD 230 [place] [address] 08/06/2024 1:00 PM EDT Office Visit [facility] ADULT DENTAL [address] [place] [address] Sebastián Quintero DDS 505 [place] [address] 12/14/2024 2:00 PM EDT Office Visit [facility] ADULT DENTAL 505 [place] [address] Daniele Barlow documented as of this encounter Visit Diagnoses Not on filedocumented in this encounter Additional Health Concerns Assessment Noted Time PHQ-9 Depression Total Score: 20 024 10:22 AM EDT documented as of this encounter Care Teams Servicer Travel Trailers Relationship Specialty Start Date End Date Bea Lacey MD 230 [place] [address] PCP - General Family Medicine 09/22/22 documented as of this encounter
--- OUTSIDE RECORDS SUMMARY | 2024-07-04 13:03 | XMS_ITS | Encounter Summary ---
Author Organization [employer] Address [address] [facility] 7t [place] [address] Care Team Providers Care Animal Keeper Name Role Phone Bea Lacey MD Primary Care Provider [phone] Reason for Visit * Reason Onset Date Comments Nurse Triage 11/08/2023 Encounter Details Date Type Department Care Team ([facility] Contact Info) Description 11/08/2023 Telephone [facility] CHC MED & PEDS 505 [place], [place] [phone] Bea Lacey MD 505 [place] [address] Nurse Triage Social History Tobacco Use Types [...] accepted this outcome. Please contact pt at [phone] documented in this encounter Plan of Treatment Upcoming Encounters Date Type Department Care Team ([facility] st Contact Info) Description 07/26/2024 9:30 AM EDT Office Visit [facility] MED & PEDS 505 [place] [address] Bea Lacey MD [address] [place], [place] 08/03/2024 2:30 PM EDT Medication Management [facility] MED & PEDS 505 [place] [address] Mariely Dennison, PharmD 230 [place], [place] [phone] 08/06/2024 1:00 PM EDT Office Visit [facility] ADULT DENTAL 505 [place] [address] Sebastián Quintero DDS 505 [place] [address] 12/14/2024 2:00 PM EDT Office Visit [facility] CHC ADULT DENTAL [address] [place] [address] Daniele Barlow documented as of this encounter Visit Diagnoses Not on filedocumented in this encounter Additional Health Concerns Assessment Noted Time PHQ-9 Depression Total Score: 20 024 10:22 AM EDT documented as of this encounter Care Teams Animal Keeper Relationship Specialty Start Date End Date Bea Lacey MD [address] [place] [address] PCP - General Family Medicine 09/22/22 documented as of this encounter
--- OUTSIDE RECORDS SUMMARY | 2024-07-04 13:03 | XMS_ITS | Encounter Summary ---
Author Organization [employer] Address [address] [facility] 7t [place] [address] Care Team Providers Care Picture Engraver Name Role Phone Bea Lacey MD Primary Care Provider [phone] Reason for Visit * Reason Onset Date Comments Results 11/16/2023 Encounter Details Date Type Department Care Team ([facility] st Contact Info) Description 11/16/2023 Telephone [facility] MEDICINE 230 [place] [address] Bea Lacey MD [address] [place], [place] [phone] Results Social History Tobacco Use Types Packs/Day [...] PM EDT Tc from pt returning call. Chairman & Ceo advise previous message. Pt verbalizes understanding. * [...] results: Labs Date when done: 11/10/23 Facility: [facility] Labs documented in this encounter Plan of Treatment Upcoming Encounters Date Type Department Care Team (Late st Contact Info) Description 07/26/2024 9:30 AM EDT Office Visit [facility] MED & PEDS 505 [place] [address] Bea Lacey MD 505 [place] [address] 08/03/2024 2:30 PM EDT Medication Management [facility] MED & PEDS [address] [place] [address] Mariely Dennison PharmD 230 [place] [address] 08/06/2024 1:00 PM EDT Office Visit [facility] ADULT DENTAL 505 [place] [address] Sebastián Quintero DDS 505 [place] [address] 12/14/2024 2:00 PM EDT Office Visit [facility] ADULT DENTAL 505 [place] [address] Daniele Barlow documented as of this encounter Visit Diagnoses Not on filedocumented in this encounter Additional Health Concerns Assessment Noted Time PHQ-9 Depression Total Score: 20 024 10:22 AM EDT documented as of this encounter Care Teams Picture Engraver Relationship Specialty Start Date End Date Bea Lacey MD [address] [place] [address] PCP - General Family Medicine 09/22/22 documented as of this encounter
--- OUTSIDE RECORDS SUMMARY | 2024-07-04 13:03 | XMS_ITS | Clinical Summary ---
Author Organization [facility] Address [address] [place] [address] Care Team Providers Care Plumber Supervisor Name Role Phone Bea Lacey Primary Care Provider [phone] Allergies No known active allergies Medications buPROPion [...] I'd recommend he obtain clearance from his grainer machine given his history of multiple coronary events. I would also want to seek further clarification from his neurosurgeon as to what other clearance is being sought from the neurologist's standpoint. I will be reaching out to Dr. Payan's office. CAD in [place] artery 01/28/2022 Overview (12/30/2023): CABG with multiple [...] 1953 Ophthalmology Exam 1962 Urine Microalbumin 1962 COVID-19 Vaccine (2023-2 5 season) 2023 11/18/2022, 12/08/2021, 12/24/2020, Additional history exists Alcohol/Substance Use Screening 02/22/2024 Depression Screening and Follow-Up 02/22/2024 Health Care Proxy Review 02/22/2024 Social Drivers of Health Lupe ual Screening 02/22/2024 Hemoglobin A1C 05/09/2024 11/10/2023 Basic Metabolic Panel 11/09/2024 11/10/2023 RSV Vaccine (60+ years old a nd patients) (1 - 1-dose 75+ series) 05/01/2027 DTaP,Tdap,and Td Vaccines (3 - Td or Tdap) 09/15/2030 09/15/2020, 08/08/2009, 09/29/2005 Hepatitis B Vaccines Completed 10/08/2016, 06/15/2016, 02/12/2016 Zoster Vaccines Completed 01/31/2019, 01/21, 11/30/2018, Additional history exists Pneumococcal Vaccine: 50+ Years Completed 09/15/2020, 10/26/2018, 04/26/2012, Additional history exists Influenza Vaccine Completed 10/31/2023, , 12/03/2021, Additional history exists Insurance MEDICARE [facility] Care Teams Plumber Supervisor Relationship Specialty Start Date End Date Bea Lacey [address] [place] [address] [place] [address] PCP - General Family Medicine 12/26/23
--- OUTSIDE RECORDS SUMMARY | 2024-07-04 13:03 | XMS_ITS | Encounter Summary ---
Author Organization [employer] Address [address] [facility] 7t [place] [address] Care Team Providers Care Driver'S License Reviewing Officer Name Role Phone Bea Lacey MD Primary Care Provider [phone] Reason for Visit * Reason Onset Date Comments Results 03/30/2023 Encounter Details Date Type Department Care Team ([facility] st Contact Info) Description 03/30/2023 Telephone [facility] MEDICINE [address] [place] [address] Bea Lacey MD [address] [place], [place] [phone] Results Social History Tobacco Use Types Packs/Day [...] Description 07/26/2024 9:30 AM EDT Office Visit [facility] MED & PEDS [address] [place] [address] Bea Lacey MD [address] [place] [address] 08/03/2024 2:30 PM EDT Medication Management [facility] MED & PEDS [address] [place] [address] Mariely Dennison PharmD [address] [place] [address] 08/06/2024 1:00 PM EDT Office Visit [facility] ADULT DENTAL [address] [place] [address] Sebastián Quintero, DDS [address] [place] [address] 12/14/2024 2:00 PM EDT Office Visit [facility] ADULT DENTAL [address] [place] [address] Daniele Barlow documented as of this encounter Visit Diagnoses Not on filedocumented in this encounter Additional Health Concerns Assessment Noted Time PHQ-9 Depression Total Score: 7 05/29/19 23 10:45 AM EDT documented as of this encounter Care Teams Driver'S License Reviewing Officer Relationship Specialty Start Date End Date Bea Lacey MD [address] [place] [address] PCP - General Family Medicine 09/22/22 documented as of this encounter
--- OUTSIDE RECORDS SUMMARY | 2024-07-04 13:03 | XMS_ITS | Encounter Summary ---
Author Organization [employer] Address [address] [facility] 7t [place] [address] Care Team Providers Care Modular Home Crew Member Name Role Phone Bea Lacey MD Primary Care Provider [phone] Encounter Details Date Type Department Care Team ([facility] st Contact Info) Description 07/14/2023 Orders Only [facility] CHC MED & PEDS [address] [place], [place] [phone] ProviderTia MD Social History Tobacco Use Types [...] t he electric, gas, oil or water [employer] threatened to shut off services in your [...] Description 07/26/2024 9:30 AM EDT Office Visit [facility] MED & PEDS [address] [place] [address] Bea Lacey MD 505 [place] [address] 08/03/2024 2:30 PM EDT Medication Management [facility] MED & PEDS 505 [place] [address] Mariely Dennison, PharmD [address] [place] [address] 08/06/2024 1:00 PM EDT Office Visit [facility] ADULT DENTAL [address] [place] [address] Sebastián Quintero DDS 505 [place] [address] 12/14/2024 2:00 PM EDT Office Visit [facility] ADULT DENTAL 505 [place] [address] Daniele Barlow documented as of this encounter [...] documented as of this encounter Care Teams Modular Home Crew Member Relationship Specialty Start Date End Date Bea Lacey MD [address] [place] [address] PCP - General Family Medicine 09/22/22 documented as of this encounter
--- OUTSIDE RECORDS SUMMARY | 2024-07-04 13:03 | XMS_ITS | Encounter Summary ---
Author Organization [employer] Address [address] [facility] 7t [place] [address] Care Team Providers Care Estimate Clerk Name Role Phone Gordon Mills MD Primary Care Prov ider Bea Lacey MD Primary Care Provider [phone] Encounter Details Date Type Department Care Team (Latest Contact Info) Description 08/14/2020 Abstract [facility] CONVERSIONS Dental, Provider, DDS Social History [...] Office Visit [facility] MED & PEDS 505 [place] [address] Bea Lacey MD 505 [place] [address] 08/03/2024 2:30 PM EDT Medication Management [facility] MED & PEDS [address] [place] [address] Mariely Dennison, PharmD 230 [place] [address] 08/06/2024 1:00 PM EDT Office Visit [facility] ADULT DENTAL [address] [place] [address] Ingrid Sebastián, DDS 505 [place] [address] 12/14/2024 2:00 PM EDT Office Visit [facility] ADULT DENTAL [address] [place] [address] Daniele Barlow documented as of this encounter Visit Diagnoses Not on filedocumented in this encounter Care Teams Estimate Clerk Relationship Specialty Start Date End Date Gordon Mills MD 505 [place] [address] PCP - General Internal Medicine 07/12/19 09/21/22 Bea Lacey MD [address] [place] [address] PCP - General Family Medicine 09/22/22 documented as of this encounter
--- OUTSIDE RECORDS SUMMARY | 2024-07-04 13:03 | XMS_ITS | Encounter Summary ---
Author Organization [employer] Address [address] [facility] 7t [place] [address] Care Team Providers Care Contract Attorney Name Role Phone Bea Lacey MD Primary Care Provider [phone] Reason for Visit * Reason Onset Date Comments Medication Question 02/07/2023 Encounter Details Date Type Department Care Team ([facility] st Contact Info) Description 02/07/2023 Telephone [facility] MEDICINE 230 [place] [address] Bea Lacey MD [address] [place], [place] [phone] Medication Question Social History Tobacco Use Types [...] t he electric, gas, oil or water [employer] threatened to shut off services in your [...] of [employer] and had the med lowered [id number] last month. Pt states diarrhea has stopped [...] Description 07/26/2024 9:30 AM EDT Office Visit [facility] MED & PEDS [address] [place] [address] Bea Lacey MD 505 [place] [address] 08/03/2024 2:30 PM EDT Medication Management [facility] MED & PEDS [address] [place] [address] Mariely Dennison PharmD [address] [place] [address] 08/06/2024 1:00 PM EDT Office Visit [facility] ADULT DENTAL [address] [place] [address] RobySebastián bryson, DDS [address] [place] [address] 12/14/2024 2:00 PM EDT Office Visit [facility] ADULT DENTAL [address] [place] [address] Daniele Barlow documented as of this encounter Visit Diagnoses Not on filedocumented in this encounter Additional Health Concerns Assessment Noted Time PHQ-9 Depression Total Score: 7 05/29/19 23 10:45 AM EDT documented as of this encounter Care Teams Contract Attorney Relationship Specialty Start Date End Date Bea Lacey MD [address] [place] [address] PCP - General Family Medicine 09/22/22 documented as of this encounter
--- OUTSIDE RECORDS SUMMARY | 2024-07-04 13:03 | XMS_ITS | Encounter Summary ---
Author Organization [employer] Address 75 [facility] 7t [place] [address] Care Team Providers Care Stretcher Leveler Operator Name Role Phone Bea Lacey MD Primary Care Provider [phone] Reason for Visit * Reason Comments Med Refill Encounter Details Date Type Department Care Team ([facility] st Contact Info) Description 03/30/2024 Refill [facility]C MED & PEDS [address] [place], [place] [phone] Bea Lacey MD 505 [place], [place] [phone] Essential tremor Social History Tobacco Use Types [...] [facility] MED & PEDS [address] [place] [address] Bea Lacey MD [address] [place] [address] 08/03/2024 2:30 PM EDT Medication Management [facility] MED & PEDS [address] [place] [address] Mariely Dennison, PharmD 230 [place] [address] 08/06/2024 1:00 PM EDT Office Visit [facility] ADULT DENTAL [address] [place] [address] Sebastián Quintero DDS [address] [place] [address] 12/14/2024 2:00 PM EDT Office Visit [facility] ADULT DENTAL [address] [place] [address] Daniele Bralow documented as of this encounter Visit Diagnoses Diagnosis Essential tremor documented in this encounter Additional Health Concerns Assessment Noted Time PHQ-9 Depression Total Score: 20 024 10:22 AM EDT documented as of this encounter Care Teams Stretcher Leveler Operator Relationship Specialty Start Date End Date Bea Lacey MD [address] [place] [address] PCP - General Family Medicine 09/22/22 documented as of this encounter
--- OUTSIDE RECORDS SUMMARY | 2024-07-04 13:03 | XMS_ITS | Encounter Summary ---
Author Organization [employer] Address [address] [facility] [address] 7t [place] [address] Care Team Providers Care Medical Secretary Name Role Phone Bea Lacey MD Primary Care Provider [phone] Encounter Details Date Type Department Care Team ([facility] Contact Info) Description 05/21/2024 Telephone [facility] CHC MED & PEDS [address] [place], [place] [phone] Bea Lacey MD 505 [place], [place] [phone] Social History Tobacco Use Types Packs/Day Years [...] 07/26/2024 9:30 AM EDT [facility] Visit [facility] MED [facility]EDS [address] [place] [address] Bea Lacey MD 505 [place] [address] 08/03/2024 2:30 PM EDT Medication Management [facility] MED & PEDS [address] [place] [address] Mariely Dennison PharmD [address] [place] [address] 08/06/2024 1:00 PM EDT Office Visit [facility] ADULT DENTAL 505 [place] [address] Sebastián Quintero DDS 505 [place] [address] 12/14/2024 2:00 PM EDT Office Visit [facility] ADULT DENTAL [address] [place] [address] Daniele Barlow documented as of this encounter Visit Diagnoses Not on filedocumented in this encounter Additional Health Concerns Assessment Noted Time PHQ-9 Depression Total Score: 20 024 10:22 AM EDT documented as of this encounter Care Teams Medical Secretary Relationship Specialty Start Date End Date Bea Lacey MD [address] [place] [address] PCP - General Family Medicine 09/22/22 documented as of this encounter
--- OUTSIDE RECORDS SUMMARY | 2024-07-04 13:04 | XMS_ITS | Encounter Summary ---
Author Organization [employer] Address [address] [facility] 7t [place] [address] Care Team Providers Care Freight Router Name Role Phone Bea Lacey MD Primary Care Provider [phone] Reason for Visit * Reason Onset Date Comments returning call RCT appt 06/26/2024 Encounter Details Date Type Department Care Team ([facility] st Contact Info) Description 06/26/2024 Telephone [facility] CHC ADULT DENTAL [address] [place], [place] [phone] Sebastián Quintero DDS [address] [place], [place] [phone] returning call RCT appt Social History Tobacco [...] Upcoming Encounters Date Type Department Care Team ([facility] st Contact Info) Description 07/26/2024 9:30 AM EDT Office Visit [facility] MED & PEDS [address] [place] [address] Bea Lacey MD 505 [place] [address] 08/03/2024 2:30 PM EDT Medication Management [facility] MED [facility] 505 [place] [address] Mariely Dennison PharmD 230 [place], [place] [phone] 08/06/2024 1:00 PM EDT Office Visit [facility] ADULT DENTAL [address] [place] [address] Sebastián Quintero DDS 505 [place] [address] 12/14/2024 2:00 PM EDT Office Visit [facility] ADULT DENTAL [address] [place] [address] Daniele Barlow documented as of this encounter Visit Diagnoses Not on filedocumented in this encounter Additional Health Concerns Assessment Noted Time PHQ-9 Depression Total Score: 20 024 10:22 AM EDT documented as of this encounter Care Teams Freight Router Relationship Specialty Start Date End Date Bea Lacey MD [address] [place] [address] PCP - General Family Medicine 09/22/22 documented as of this encounter
--- OUTSIDE RECORDS SUMMARY | 2024-07-04 13:04 | XMS_ITS | Encounter Summary ---
Author Organization [employer] Address [address] [place] [address] 7t [place] [address] Care Team Providers Care Transport Corps Officer Name Role Phone Bea Lacey MD Primary Care Provider [phone] Reason for Visit * Reason Comments Med Refill Encounter Details Date Type Department Care Team ([facility] Contact Info) Description 09/30/2022 Refill [facility] MED [facility]EDS 505 [place], [place] [phone] Gordon Mills MD 505 [place], [place] [phone] Chronic rhinitis Social History Tobacco Use Types [...] Upcoming Encounters Date Type Department Care Team ([facility] Contact Info) Description 07/26/2024 9:30 AM EDT Office Visit [facility]ED[facility] 505 [place], [place] [phone] Bea Lacey MD 505 [place], [place] [phone] 08/03/2024 2:30 PM EDT Medication Management [facility] 505 [place] [address] Mariely Dennison PharmD 230 [place] [address] 08/06/2024 1:00 PM EDT Office Visit [facility] ADULT DENTAL 505 [place] [address] Sebastián Quintero DDS 505 [place] [address] 12/14/2024 2:00 PM EDT Office Visit [facility] ADULT DENTAL 505 [place] [address] Daniele Barlow documented as of this encounter Visit Diagnoses Diagnosis Chronic rhinitis documented in this encounter Additional Health Concerns Assessment Noted Time PHQ-9 Depression Total Score: 7 05/29/19 23 10:45 AM EDT documented as of this encounter Care Teams Transport Corps Officer Relationship Specialty Start Date End Date Bea Lacey MD 230 [place] [address] PCP - General Family Medicine 09/22/22 documented as of this encounter
--- OUTSIDE RECORDS SUMMARY | 2024-07-04 13:04 | XMS_ITS | Encounter Summary ---
Author Organization [employer] Address [address] [place] [address] 7t [place] [address] Care Team Providers Care Application Development Consultant Name Role Phone Bea Lacey MD Primary Care Provider [phone] Reason for Visit * Reason Comments Med Refill Encounter Details Date Type Department Care Team ([facility] st Contact Info) Description 10/12/2022 Refill [facility] CHC MED & PEDS [address] [place], [place] [phone] Gordon Mills MD 505 [place] [address] Chronic rhinitis Social History Tobacco Use Types [...] EDT Office Visit [facility] MED & PEDS 505 [place] [address] Bea Lacey MD 505 [place] [address] 08/03/2024 2:30 PM EDT Medication Management [facility] MED & PEDS [address] [place] [address] Mariely Dennison PharmD 230 [place] [address] 08/06/2024 1:00 PM EDT Office Visit [facility] ADULT DENTAL 505 [place] [address] Sebastián Quintero DDS 505 [place] [address] 12/14/2024 2:00 PM EDT Office Visit [facility] ADULT DENTAL 505 [place] [address] Daniele Barlow documented as of this encounter Visit Diagnoses Diagnosis Chronic rhinitis documented in this encounter Additional Health Concerns Assessment Noted Time PHQ-9 Depression Total Score: 7 05/29/19 23 10:45 AM EDT documented as of this encounter Care Teams Application Development Consultant Relationship Specialty Start Date End Date Bea Lacey MD 230 [place] [address] PCP - General Family Medicine 09/22/22 documented as of this encounter
--- OUTSIDE RECORDS SUMMARY | 2024-07-04 13:04 | XMS_ITS | Encounter Summary ---
Author Organization [employer] Address [address] [place] [address] 7 [place] [address] Care Team Providers Care Director Motion Picture Name Role Phone Gordon Mills MD Primary Care Prov ider Bea Lacey MD Primary Care Provider [phone] Reason for Referral * Social Care Application (Routine) - Closed Specialty Diagnoses / Procedures Referred By Contac t Referred To Contact Diabetic / Diabetes Services Diagnoses Type 2 diabetes mellitus with hyperglycemia, without long-term current use of insulin (CMS/HCC) Peter Barlow MD 505 [place] [address] Phone: tel: fax: Referral ID Status Reason Start Date Expiration Date V isits Requested Visits Authorized [id number] Closed Specialty Services Required 09/02/2022 03/01/2023 1 1 Encounter Details Date Type Department Care Team ([facility] st Contact Info) Description 09/02/2022 Orders Only [facility] CHC MED & PEDS 505 [place] [address] Peter Barlow MD 505 [place], [place] [phone] Type 2 diabetes mellitus with hyperglycemia, without [...] Upcoming Encounters Date Type Department Care Team ([facility] st Contact Info) Description 07/26/2024 9:30 AM EDT Office Visit [facility] MED & PEDS 505 [place] [address] Bea Lacey MD 505 [place] [address] 08/03/2024 2:30 PM EDT Medication Management [facility] MED & PEDS 505 [place] [address] Mariely Dennison, PharmD 230 [place] [address] 08/06/2024 1:00 PM EDT Office Visit [facility] ADULT DENTAL 505 [place] [address] Sebastián Quintero DDS 505 [place] [address] 12/14/2024 2:00 PM EDT Office Visit [facility] ADULT DENTAL 505 [place] [address] Daniele Barlow Scheduled Referrals Name Type Priority Associated Diagnoses Order Schedule Referral to Diabetes Prevention Program Outpatient Referral Routine Type 2 diabetes mellitus with hyperglycemia, without long-term current use of insulin ([facility]) Ordered: 09/02/2022 documented as of this encounter Visit Diagnoses Diagnosis Type 2 diabetes mellitus with hyperglycemia, without long-term current use of insulin ([facility])- Primary documented in this encounter Additional Health Concerns Assessment Noted Time PHQ-9 Depression Total Score: 7 05/29/19 23 10:45 AM EDT documented as of this encounter Care Teams Director Motion Picture Relationship Specialty Start Date End Date Gordon Mills MD [address] [place] [address] PCP - General Internal Medicine 07/12/19 09/21/22 Bea Lacey MD [address] [place] [address] PCP - General Family Medicine 09/22/22 documented as of this encounter
--- OUTSIDE RECORDS SUMMARY | 2024-07-04 13:04 | XMS_ITS | Encounter Summary ---
Author Organization [employer] Address [address] [facility] 7t [place] [address] Care Team Providers Care Chisel Mortiser Operator Name Role Phone Bea Lacey MD Primary Care Provider [phone] Reason for Visit * Reason Onset Date Comments Medication Question 06/10/2023 Encounter Details Date Type Department Care Team ([facility] Contact Info) Description 06/10/2023 Telephone [facility] CHC MED & PEDS [address] [place], [place] [phone] Bea Lacey MD 505 [place], [place] [phone] Medication Question Social History Tobacco Use Types [...] [facility] MED & PEDS 505 [place] [address] Bea Lacey MD 505 [place] [address] 08/03/2024 2:30 PM EDT Medication Management [facility] MED & PED[facility] [address] [place] [address] Mariely Dennison, PharmD [address] [place] [address] 08/06/2024 1:00 PM EDT Office Visit [facility] ADULT DENTAL 505 [place] [address] Sebastián Quintero DDS 505 [place] [address] 12/14/2024 2:00 PM EDT Office Visit [facility] ADULT DENTAL 505 [place] [address] Daniele Barlow documented as of this encounter Visit Diagnoses Not on filedocumented in this encounter Additional Health Concerns Assessment Noted Time PHQ-9 Depression Total Score: 20 024 10:22 AM EDT documented as of this encounter Care Teams Chisel Mortiser Operator Relationship Specialty Start Date End Date Bea Lacey MD [address] [place] [address] PCP - General Family Medicine 09/22/22 documented as of this encounter
--- OUTSIDE RECORDS SUMMARY | 2024-07-04 13:04 | XMS_ITS | Encounter Summary ---
Author Organization [employer] Address [address] [place] [address] 7t [place] [address] Care Team Providers Care Product Inspection Supervisor Name Role Phone Gordon Mills MD Primary Care Prov ider Bea Lacey MD Primary Care Provider [phone] Reason for Visit * Reason Comments Med Refill Encounter Details Date Type Department Care Team ([facility] st Contact Info) Description 09/02/2022 Refill [facility] CHC MED & PEDS 505 [place], [place] [phone] Peter Barlow MD 505 [place], [place] [phone] Social History Tobacco Use Types Packs/Day Years [...] 9:30 AM EDT Office Visit [facility] MED & PEDS 505 [place] [address] Bea Lacey MD 505 [place] [address] 08/03/2024 2:30 PM EDT Medication Management [facility] MED & PEDS 505 [place] [address] Mariely Dennison PharmD 230 [place] [address] 08/06/2024 1:00 PM EDT Office Visit [facility] ADULT DENTAL 505 [place] [address] Sebastián Quintero DDS 505 [place] [address] 12/14/2024 2:00 PM EDT Office Visit [facility] ADULT DENTAL 505 [place] [address] Daniele Barlow documented as of this encounter Visit Diagnoses Not on filedocumented in this encounter Additional Health Concerns Assessment Noted Time PHQ-9 Depression Total Score: 7 05/29/19 23 10:45 AM EDT documented as of this encounter Care Teams Product Inspection Supervisor Relationship Specialty Start Date End Date Gordon Mills MD 505 [place] [address] PCP - General Internal Medicine 07/12/19 09/21/22 eBa Lacey MD 230 [place] [address] PCP - General Family Medicine 09/22/22 documented as of this encounter
--- OUTSIDE RECORDS SUMMARY | 2024-07-04 13:04 | XMS_ITS | Encounter Summary ---
Author Organization [employer] Address [address] [place] [address] 7t [place] [address] Care Team Providers Care Tank Tester Name Role Phone Gordon Mills MD Primary Care Prov ider Bea Cottrell MD Primary Care Provider [phone] Reason for Visit * Reason Onset Date Comments PCP change 09/01/2022 Encounter Details Date Type Department Care Team ([facility] Contact Info) Description 09/01/[address] [facility] CHC MED & PEDS [address] [place], [place] [phone] Gordon Mills MD 505 [place] [address] PCP change Social History Tobacco Use Types [...] 9:30 AM EDT Office Visit [facility] MED & PEDS 505 [place] [address] Bea Cottrell MD 505 [place] [address] 08/03/2024 2:30 PM EDT Medication Management [facility] MED & PEDS 505 [place] [address] Mariely Dennison, PharmD 230 [place] [address] 08/06/2024 1:00 PM EDT Office Visit [facility] ADULT DENTAL 505 [place] [address] Sebastián Quintero DDS 505 [place] [address] 12/14/2024 2:00 PM EDT Office Visit [facility] ADULT DENTAL 505 [place] [address] Daniele Barlow documented as of this encounter Visit Diagnoses Not on filedocumented in this encounter Additional Health Concerns Assessment Noted Time PHQ-9 Depression Total Score: 7 05/29/19 10:45 AM EDT documented as of this encounter Care Teams Tank Tester Relationship Specialty Start Date End Date Gordon Mills MD 505 [place] [address] PCP - General Internal Medicine 07/12/19 09/21/22 Bea Cottrell MD [address] [place] [address] PCP - General Family Medicine 09/22/22 documented as of this encounter
--- OUTSIDE RECORDS SUMMARY | 2024-07-04 13:04 | XMS_ITS | Encounter Summary ---
Author Organization [employer] Address [address] [facility] 7t [place] [address] Care Team Providers Care Cash Register Repairer Name Role Phone Bea Lacey MD Primary Care Provider [phone] Reason for Visit * Reason Onset Date Comments Results 04/28/2023 Encounter Details Date Type Department Care Team ([facility] st Contact Info) Description 04/28/2023 Telephone [facility] MEDICINE 230 [place] [address] Bea Lacey MD [address] [place], [place] [phone] Results Social History Tobacco Use Types Packs/Day [...] 9:30 AM EDT Office Visit [facility] MED & PEDS 505 [place] [address] Bea Lacey MD 505 [place] [address] 08/03/2024 2:30 PM EDT Medication Management [facility] MED & PEDS [address] [place] [address] Mariely Dennison, PharmD 230 [place] [address] 08/06/2024 1:00 PM EDT Office Visit [facility] ADULT DENTAL 505 [place] [address] Sebastián Quintero DDS 505 [place] [address] 12/14/2024 2:00 PM EDT Office Visit [facility] ADULT DENTAL 505 [place] [address] Daniele Barlow documented as of this encounter Visit Diagnoses Not on filedocumented in this encounter Additional Health Concerns Assessment Noted Time PHQ-9 Depression Total Score: 7 05/29/19 10:45 AM EDT documented as of this encounter Care Teams Cash Register Repairer Relationship Specialty Start Date End Date Bea Lacey MD [address] [place] [address] PCP - General Family Medicine 09/22/22 documented as of this encounter
--- OUTSIDE RECORDS SUMMARY | 2024-07-04 13:04 | XMS_ITS | Encounter Summary ---
Author Organization [employer] Address [address] [facility] 7t [place] [address] Care Team Providers Care Systems Management Consultant Name Role Phone Bea Lacey MD Primary Care Provider [phone] Encounter Details Date Type Department Care Team (Latest Contact Info) Description 07/03/2024 Travel Social History Tobacco Use Types Packs/Day Years [...] Description 07/26/2024 9:30 AM EDT Office Visit [facility] MED & PEDS 505 [place] [address] Bea Lacey MD 505 [place] [address] 08/03/2024 2:30 PM EDT Medication Management [facility] MED & PEDS 505 [place] [address] Mariely Dennison PharmD 230 [place] [address] 08/06/2024 1:00 PM EDT Office Visit [facility] ADULT DENTAL 505 [place] [address] Sebastián Quintero DDS 505 [place] [address] 12/14/2024 2:00 PM EDT Office Visit [facility] ADULT DENTAL 505 [place] [address] Daniele Barlow documented as of this encounter Visit Diagnoses Not on filedocumented in this encounter Additional Health Concerns Assessment Noted Time PHQ-9 Depression Total Score: 20 024 10:22 AM EDT documented as of this encounter Care Teams Systems Management Consultant Relationship Specialty Start Date End Date Bea Lacey MD 230 [place] [address] PCP - General Family Medicine 09/22/22 documented as of this encounter
--- OUTSIDE RECORDS SUMMARY | 2024-07-04 13:04 | XMS_ITS | Encounter Summary ---
Author Organization [employer] Address [address] [facility] 7t [place] [address] Care Team Providers Care Card Setter Name Role Phone Bea Lacey MD Primary Care Provider [phone] Encounter Details Date Type Department Care Team (Late st Contact Info) Description 06/07/2023 Orders Only [facility] MEDICINE 230 [place], [place] [phone] ProviderTia MD Social History Tobacco Use Types [...] Description 07/26/2024 9:30 AM EDT Office Visit [facility] MED & PEDS 505 [place] [address] Bea Lacey MD 505 [place] [address] 08/03/2024 2:30 PM EDT Medication Management [facility] MED & PEDS 505 [place] [address] Mariely Dennison, PharmD 230 [place] [address] 08/06/2024 1:00 PM EDT Office Visit [facility] ADULT DENTAL 505 [place] [address] Sebastián Quintero DDS 505 [place] [address] 12/14/2024 2:00 PM EDT Office Visit [facility] ADULT DENTAL 505 [place] [address] Daniele Barlow documented as of this encounter [...] as of this encounter Care Teams Card Setter Relationship Specialty Start Date End Date Bea Lacey MD [address] [place] [address] PCP - General Family Medicine 09/22/22 documented as of this encounter
--- OUTSIDE RECORDS SUMMARY | 2024-07-04 13:04 | XMS_ITS | Encounter Summary ---
Author Organization [employer] Address [address] [facility] 7t [place] [address] Care Team Providers Care Schedule Manager Name Role Phone Bea Lacey MD Primary Care Provider [phone] Reason for Visit * Reason Onset Date Comments Glucose Monetor 10/08/2022 Encounter Details Date Type Department Care Team ([facility] st Contact Info) Description 10/08/2022 Telephone [facility] CHC MED & PEDS 505 [place], [place] [phone] Bea Lacey MD 505 [place] [address] Glucose Monetor Social History Tobacco Use Types [...] call to patient who is requesting a [employer] two Sensor. Pt states it will make it easier for him due to difficulty pinching. Pt would like it to be sent to [facility], pt provided number . Patient also stated that he wants a prescription for pseudoephedrine fornasal congestion and runny nose. This message will be forwarded to provider. * Telephone Encounter - Lexi Chan - 10/08/2022 8:21 AM EDT Tc from pt requesting a [employer] two Sensor. Pt states it will make it easier for him due todifficulty pinching. Pt would like it to be sent to [facility], pt provided number Please contact pt at [phone] documented in this encounter Plan of Treatment Upcoming Encounters Date Type Department Care Team (Late st Contact Info) Description 07/26/2024 9:30 AM EDT Office Visit [facility] MED & PEDS 505 [place] [address] Bea Lacey MD 505 [place] [address] 08/03/2024 2:30 PM EDT Medication Management [facility] MED [facility] PED[facility] 505 [place] [address] Mariely Dennison, PharmD 230 [place] [address] 08/06/2024 1:00 PM EDT Office Visit [facility] ADULT DENTAL 505 [place] [address] Sebastián Quintero DDS 505 [place] 12/14/2024 2:00 PM EDT Office Visit [facility] ADULT DENTAL 505 [place] [address] Daniele Barlow documented as of this encounter Visit Diagnoses Not on filedocumented in this encounter Additional Health Concerns Assessment Noted Time PHQ-9 Depression Total Score: 7 05/29/19 10:45 AM EDT documented as of this encounter Care Teams Schedule Manager Relationship Specialty Start Date End Date Bea Lacey MD 230 [place] [address] PCP - General Family Medicine 09/22/22 documented as of this encounter
--- OUTSIDE RECORDS SUMMARY | 2024-07-04 13:04 | XMS_ITS | Clinical Summary ---
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 Benign hypertension 12/30/2023 BPH (benign prostatic hyperplasia) 12/30/2023 Bilateral cataracts 12/30/2023 Bilateral tinnitus 12/30/2023 CVA (cerebral vascular accident) ([facility] V24, [place] V28) 12/30/2023 Heart failure with normal ej ection fraction ([facility] V24, [facility] V28) 12/30/2023 Hyperlipidemia 12/30/2023 History of parathyroidectomy 12/30/2023 CKD (chronic kidney disease) 12/30/2023 Type 2 diabetes mellitus wit h hyperglycemia ([facility] V24, [facility] V28) 12/30/2023 CAD in [place] artery 12/30/2023 Erectile dysfunction due to diseases [...] Insurance MEDICARE MEDICAID - [place] Care Teams Fiberglass Luggage Molder Relationship Specialty Start Date End Date Bea Lacey MD [address] [place] [address] PCP - General 04/04/23
--- OUTSIDE RECORDS SUMMARY | 2024-07-04 13:04 | XMS_ITS | Encounter Summary ---
Author Organization [employer] Address [address] [facility] [address] 7t [place] [address] Care Team Providers Care Towel Sewer Name Role Phone Bea Lacey MD Primary Care Provider [phone] Reason for Visit * Reason Onset Date Comments Medication Question 06/20/2023 Encounter Details Date Type Department Care Team ([facility] st Contact Info) Description 06/20/2023 Telephone [facility] MEDICINE 230 [place] [address] Bea Lacey MD [address] [place], [place] [phone] Medication Question Social History Tobacco Use Types [...] [facility] MED & PEDS 505 [place] [address] Bea Lacey MD 505 [place] [address] 08/03/2024 2:30 PM EDT Medication Management [facility] MED & PED[facility] 505 [place] [address] Mariely Dennison, LadiD [address] [place] [address] 08/06/2024 1:00 PM EDT Office Visit [facility] ADULT DENTAL [address] [place] [address] Sebastián Quintero DDS [address] [place] [address] 12/14/2024 2:00 PM EDT Office Visit [facility] ADULT DENTAL [address] [place] [address] Daniele Barlow documented as of this encounter Visit Diagnoses Not on filedocumented in this encounter Additional Health Concerns Assessment Noted Time PHQ-9 Depression Total Score: 20 024 10:22 AM EDT documented as of this encounter Care Teams Towel Sewer Relationship Specialty Start Date End Date Bea Lacey MD [address] [place] [address] PCP - General Family Medicine 09/22/22 documented as of this encounter
--- OUTSIDE RECORDS SUMMARY | 2024-07-04 13:04 | XMS_ITS | Clinical Summary ---
Author Organization [facility] Address [address] [place] [phone] Phone Care Team Providers Care Tubular Splitting Machine Tender Name Role Phone Lula Lacey MD Primary Care Provider [phone] Allergies Active Allergy Reactions Criticality Noted Date [...] Visit [facility] [address] [phone] Get Galo MD [address] [address] Health Maintenance Due Date Last [...] ug/dl RTAMA 09/21/2018 us Rtama Conversion LAB [id number] LICITED RESULTS Final Result RTAMA from Last 3 Months or Most Recently Relevant to Health Maintenance Insurance Medicare Medicaid [place] Care Teams Tubular Splitting Machine Tender Relationship Specialty Start Date End Date Lula Lacey MD [address] [place] [address] ZACH CAMACHO PCP - General Internal Medicine 01/25/24
--- OUTSIDE RECORDS SUMMARY | 2024-07-04 13:04 | XMS_ITS | Encounter Summary ---
Author Organization [employer] Address [address] [facility] 7t [place] [address] Care Team Providers Care Product Development Chemist Name Role Phone Bea Lacey MD Primary Care Provider [phone] Reason for Visit * Reason Comments Med Refill Encounter Details Date Type Department Care Team ([facility] st Contact Info) Description 06/30/2024 Refill [facility] [address] [place], [place] [phone] Bea Lacey MD [address] [place], [place] [phone] Anxiety Social History Tobacco Use Types Packs/Day Years [...] AM EDT Office Visit [facility] [address] [place] [address] Bea Lacey MD [address] [place] [address] 08/03/2024 2:30 PM EDT Medication Management [facility] [address] [place] [address] Mariely Dennison PharmD [address] [place] [address] 08/06/2024 1:00 PM EDT Office Visit [facility] [address] [place] [address] Sebastián Quintero DDS [address] [place] [address] 12/14/2024 2:00 PM EDT Office Visit [facility] [address] [place] [address] Daniele Barlow documented as of this encounter Visit Diagnoses Diagnosis Anxiety Anxiety state, unspecified documented in this encounter Additional Health Concerns Assessment Noted Time PHQ-9 Depression Total Score: 20 024 10:22 AM EDT documented as of this encounter Care Teams Product Development Chemist Relationship Specialty Start Date End Date Bea Lacey MD [address] [place] [address] PCP - General Family Medicine 09/22/22 documented as of this encounter
--- OUTSIDE RECORDS SUMMARY | 2024-07-04 13:04 | XMS_ITS | Encounter Summary ---
Author Organization [employer] Address [address] [facility] 7t [place] [address] Care Team Providers Care Partner Management Consultant Name Role Phone Bea Lacey MD Primary Care Provider [phone] Reason for Visit * Reason Comments Med Refill Encounter Details Date Type Department Care Team (Late Contact Info) Description 10/11/2022 Refill [facility] [address] [place] [address] Bea Lacey MD [address] [place] [address] Chronic rhinitis Social History Tobacco Use Types [...] Description 07/26/2024 9:30 AM EDT Office Visit [facility] [address] [place] [address] Bea Lacey MD [address] [place] [address] 08/03/2024 2:30 PM EDT Medication Management [facility] [address] [place] [address] aMriely Dennison PharmD [address] [place] [address] 08/06/2024 1:00 PM EDT Office Visit [facility] AD[facility] D[facility]AL [address] [place] [address] Sebastián Quintero DDS [address] [place] [address] 12/14/2024 2:00 PM EDT Office Visit [facility] [address] [place] [address] Daniele Barlow documented as of this encounter Visit Diagnoses Diagnosis Chronic rhinitis documented in this encounter Additional Health Concerns Assessment Noted Time PHQ-9 Depression Total Score: 7 05/29/19 23 10:45 AM EDT documented as of this encounter Care Teams Partner Management Consultant Relationship Specialty Start Date End Date Bea Lacey MD [address] [place] [address] PCP - General Family Medicine 09/22/22 documented as of this encounter
== END 2024-07-04 13:12 | disposition home or self-care (01) ==
LOC: HO.PMC 12:44
PROVIDERS: PCP Student in an Organized Health Care Education/Training Program; Visit Provider Anesthesiology
DX: G89.4 Chronic pain syndrome (principal); M53.3 Sacrococcygeal disorders, not elsewhere classified; M46.1 Sacroiliitis, not elsewhere classified; M54.51 Vertebrogenic low back pain; E11.65 Type 2 diabetes mellitus with hyperglycemia
CPT/HCPCS: 99213

== ENCOUNTER → 2024-07-04 12:43 | Outpatient (BNVA) | payer MEDICARE, MEDICAID, SELFPAY | PROVIDERS: PCP Student in an Organized Health Care Education/Training Program; Visit Provider Anesthesiology | DX: Z45.89 Encounter for adjustment and management of other implanted devices (principal); F11.20 Opioid dependence, uncomplicated; M53.3 Sacrococcygeal disorders, not elsewhere classified; M46.1 Sacroiliitis, not elsewhere classified; M54.51 Vertebrogenic low back pain; G89.29 Other chronic pain; E11.65 Type 2 diabetes mellitus with hyperglycemia; Z79.85 Long-term (current) use of injectable non-insulin antidiabetic drugs | CPT/HCPCS: 99212 ==

== ENCOUNTER 2024-08-23 11:01 | Outpatient (AMB) | payer MEDICARE, MEDICAID, SELFPAY ==
--- OUTSIDE RECORDS SUMMARY | 2024-08-17 23:59 | XMS_ITS | Continuity of Care Document ---
Author Organization [facility] Address [address] [place] [address]- Care Team Providers Care Canvas Worker Name Role Phone Bea Lacey MD Primary Care Physician [phone] Encounter [facility] Date(s): 07/18/24 - 08/17/24 [facility] [address] [place], [place] [address] Attending Physician: Moises Andrews Admitting Physician: Moises Andrews Referring Physician: Moises Andrews Referring Physician: Judy Garza Encounter Type: Triage Allergies, Adverse Reactions, Alerts No Known Medication Allergies Substance Criticality Severity Reaction Reaction Severity Status Grass Unable to assess criticality Intermittent watery eyes/runny nose Active Immunizations Given and Recorded Vaccine Date Status Refusal Reason [id number] 12y+ bivalent booster vax 12/08/21 Recorded SARS-CoV-2 (COVID-19) mRNA BNT-162b2 vac 12/24/20 Recorded SARS-CoV-2 (COVID-19) mRNA-1273 vaccine 05/27/20 R ecorded SARS-CoV-2 (COVID-19) mRNA-1273 vaccine 04/29/20 R ecorded pneumococcal 23-valent vaccine 04/26/12 Given influenza virus vaccine, inactivated 04/26/12 Give n Pneumococcal Vaccine (oldterm) 1 11/11/06 Given 1Result Comment: lot # [id number] EXP 08/20/06 PT INFO 09/04/04 Medications aspirin [...] Date: 04/26/22 Status: Ordered Repeat number: 1 capsaicin 0.025% topical cream 1 application, Topically, 2 times a day, to affected area, AVOID FACE AND EYES, # 20 Gm, 0 Refills,Acute 07/25/25 4:00:00 PM EDT, 07/25/24 3:54:00 PM EDT, Cream, [facility], Partialfill upon patient request if the prescription is for a schedule II opioid drug., 1 application Topically 2 times a day,Instr:to affected area, AVOID FACE AND EYES, 172.72, cm, 07/25/24 14:48:00 EDT, Height, 88, kg, 06/25/24 14:42:00 EDT, Dry Weight Start Date: 07/25/24 Stop Date: 07/25/25 Status: Ordered Quantity: 20.0 Unit: g Repeat number: 1 cetirizine 10 mg oral tablet 1 tablet = 10 mg, By Mouth, Daily, 0 Refills, Maintenance, 07/25/24 2:57:00 PM EDT, Partial fill uponpatient request if the prescription is for a schedule II opioid drug. Start Date: 07/25/24 Status: Ordered Repeat number: 1 clonazePAM 0.5 mg oral tablet 1 tablet = 0.5 mg, By Mouth, 3 times a day Start Date: 12/12/20 Status: Ordered Repeat number: 1 cloNIDine 0.1 mg oral tablet Refills 0, Maintenance, 07/25/24 2:55:00 PM EDT, Partial fill upon patient request if the prescription is for a schedule II opioid drug. Start Date: 07/25/24 Status: Ordered Repeat number: 1 Compression- Lower [...] 11 Refills, Maintenance, 12/13/23 12:27:00 PM EDT, [facility], Partial fill upon patient [...] 9:46:00 AM EDT, Route to Pharmacy Electronically, [facility], Partial fill upon patient [...] 3 Refills, Maintenance, 02/03/24 8:19:00 AM EST, [facility], 172.72, cm, 01/30/24 9:29:00 EST, Height, [...] Date: 04/07/20 Status: Ordered Repeat number: 1 glipiZIDE 5 mg oral tablet Refills 0, Maintenance, 07/25/24 2:55:00 PM EDT, Partial fill upon patient request if the prescription is for a schedule II opioid drug. Start Date: 07/25/24 Status: Ordered Repeat number: 1 hydrOXYzine hydrochloride 25 mg oral tablet 0 Refills, Maintenance, 07/25/24 2:55:00 PM EDT, Partial fill upon patient request if the prescription is for a schedule II opioid drug. Start Date: 07/25/24 Status: Ordered Repeat number: 1 isosorbide mononitrate 60 mg oral tablet, extended release 2 tablet, By Mouth, Daily in AM, # 180 tablet, 3 Refills, Maintenance, 05/01/24 10:25:00 AM EDT, [facility], 172, cm, 05/01/24 8:22:00 EDT, Height, 88.5, kg, 04/05/24 8:14:00 EST,Dry Weight Start Date: 05/01/24 Status: Ordered Quantity: 180.0 Unit: tablet Repeat number: 1 lisinopril 10 mg oral tablet 10 mg, 1, tablet, By Mouth, Daily, # 90 tablet, Refills 4, Tot. Refills 4, Maintenance, 12/12/23 2:14:00 PM EDT, Route to Pharmacy Electronically, [facility], Partial fill upon patient [...] Date: 04/21/21 Status: Ordered Repeat number: 1 pilocarpine 5 mg oral tablet 0 Refills, [...] By Mouth, 2 times a day, # 120 tablet, Refills 3, Tot. Refills 3, Maintenance, 08/08/24 2:42:00 PM EDT, Route to Pharmacy Electronically, [facility], Partial fill upon patient request if the prescription is for a schedule II opioid drug., 172.72, cm, 07/25/24 14:48:00 EDT, Height, 88, kg, 06/25/24 14:42:00 EDT, Dry Weight Start Date: 08/08/24 Status: Ordered Quantity: 120.0 Unit: tablet Repeat number: 4 Relistor 150 mg oral tablet 3 tablet [...] Date: 01/06/24 Status: Ordered Repeat number: 1 traZODone 50 mg oral tablet 75 mg, 1.5, tablet, By Mouth, Daily at bedtime, # 135 tablet, Refills 1, Tot. Refills 1, Maintenance, 08/16/24 8:09:00 AM EDT, Route to Pharmacy Electronically, [facility], 172.72, cm, 07/25/24 14:48:00 EDT, Height, 88, kg, 06/25/24 14:42:00 EDT, Dry Weight Start Date: 08/16/24 Status: Ordered Quantity: 135.0 Unit: tablet Repeat number: 2 Vitamin D3 1000 intl units oral tablet 1 tablet = 25 mcg, By Mouth, Daily, 0 Refills, Maintenance, 07/25/24 2:59:00 PM EDT, Partial fill upon patient request if the prescription is for a schedule II opioid drug. Start Date: 07/25/24 Status: Ordered Repeat number: 1 Xarelto 20 mg oral [...] Team Personnel Name: Darci Ayala RN Position: [facility] ED RN W/OE and Tasks Member Role: Primary Care Nurse Name: Niharika Reza RN Position: [facility] SN RN Member Role: Primary Care Nurse Name: Veronica Kapoor RN Position: [facility] RN Member Role: Primary Care Nurse Name: Paula Garcia RN Position: [facility] RN Member Role: Primary Care Nurse Name: Jocelyn Villanueva RN Position: [facility] SN RN Member Role: Primary Care Nurse Name: Roseann Sullivan RN Position: [facility] RN Member Role: Primary Care Nurse Name: Casimiro Alarcon RN Position: [facility] RN Member Role: Primary Care Nurse Name: Brenda Orr RN Position: [facility] RN Member Role: Primary Care Nurse Name: Chasidy Woodard RN Position: [facility] RN Member Role: Primary Care Nurse Name: Annalisa Aguilar RN Position: [facility] RN Member Role: Primary Care Nurse Name: Heavenly Sen RN Position: [facility] Supervisory Aide Member Role: Primary Care Nurse Name: Nasima Garcia NP Position: Reference Physician Member Role: Primary Care Nurse Address: [address] [place] [address]- Telecom: Name: Bea Lacey MD Position: [facility] Outreach Member Role: PCP Address: [address] [place] [address]- [place] Telecom: Name: Itzel Tirado MD Position: [facility] Cardiology MD Member Role: Lifetime Consulting Physician Address: [address] [place] [address]- [place] Telecom: Name: Elena Pyle RN Position: [facility] RN Member Role: Primary Care Nurse Name: Lalito Wheeler RN Position: [facility] RN Member Role: Primary Care Nurse Name: Beatriz Lawrence RN Position: [facility] SN RN Member Role: Primary Care Nurse Name: Dorothea Fong RN Position: [facility] SN RN Member Role: Primary Care Nurse Name: Get Gaol MD Position: [facility] Renal MD Member Role: Lifetime Consulting Physician Address: [address] [facility] [address] [facility] [place] [address]- [place] Telecom: Name: Lucy Bradford RN Position: [facility] RN Member Role: Primary Care Nurse Name: Familia Rivas NP Position: Reference Physician Member Role: Primary Care Nurse Address: [address] [place] [address] [place]ule[place] [address]- [place] Telecom: Care Team Related Persons Name: JOSE ALBERTO VARGAS Insurance Providers Guarantor name: SHERLY VARGAS Health Plan Information #: 1 Payer: MEDICARE B Payer Identifier: NA Member Number: [id number] Group Number: NA Subscriber Identifier: [id number] Relationship to Subscriber: self Coverage Type: NA Coverage Verification Date: NA Telecom: NA Address: NA Health Plan Information #: 2 Payer: [email or web address]ER [employer]ICE Payer Identifier: NA Member Number: [id number] Group Number: NA Subscriber Identifier: [id number] Relationship to Subscriber: self Coverage Type: MEDICAID Coverage Verification Date: NA Telecom: NA Address:
--- OUTSIDE RECORDS SUMMARY | 2024-08-17 23:59 | XMS_ITS | Continuity of Care Document ---
Author Organization [facility] Address [address] [place] [address]- Care Team Providers Care Movement Therapist Name Role Phone Bea Lacey MD Primary Care Physician [phone] Encounter [facility] Date(s): 07/18/24 - 08/17/24 [facility] [address] [place], [place] [address] Encounter Type: Triage Allergies, Adverse Reactions, Alerts No Known Medication Allergies Substance Criticality Severity Reaction Reaction Severity Status Grass Unable to assess criticality Intermittent watery eyes/runny nose Active Immunizations Given and Recorded Vaccine Date Status Refusal Reason [id number] 12y+ bivalent booster vax 12/08/21 Recorded SARS-CoV-2 (COVID-19) mRNA BNT-162b2 vac 12/24/20 Recorded SARS-CoV-2 (COVID-19) mRNA-1273 vaccine 05/27/20 R ecorded SARS-CoV-2 (COVID-19) mRNA-1273 vaccine 04/29/20 R ecorded pneumococcal 23-valent vaccine 04/26/12 Given influenza virus vaccine, inactivated 04/26/12 Give n Pneumococcal Vaccine (oldterm) 1 01/01/06 Given 1Result Comment: lot # [id number] EXP 08/20/06 PT INFO 09/04/04 Medications aspirin [...] PM EDT, 07/25/24 3:54:00 PM EDT, Cream, [facility], Partialfill upon patient request if the [...] Maintenance, 12/13/23 12:27:00 PM EDT, [facility], Partial fill upon patient request if [...] 9:46:00 AM EDT, Route to Pharmacy Electronically, [facility], Partial fill upon patient request if [...] 3 Refills, Maintenance, 02/03/24 8:19:00 AM EST, [facility], 172.72, cm, 01/30/24 9:29:00 EST, Height, [...] 3 Refills, Maintenance, 05/01/24 10:25:00 AM EDT, [facility], 172, cm, 05/01/24 8:22:00 EDT, Height, 88.5, kg, 04/05/24 8:14:00 EST,Dry Weight Start Date: 05/01/24 Status: Ordered Quantity: 180.0 Unit: tablet Repeat number: 1 lisinopril 10 mg oral tablet 10 mg, 1, tablet, By Mouth, Daily, # 90 tablet, Refills 4, Tot. Refills 4, Maintenance, 12/12/23 2:14:00 PM EDT, Route to Pharmacy Electronically, [facility], Partial fill upon patient request if [...] Maintenance, 04/21/21 3:01:00 PM EST Start Date: 3/1/22 Status: Ordered Repeat number: 1 primidone 250 mg oral tablet 500 mg, 2, tablet, By Mouth, 2 times a day, # 120 tablet, Refills 3, Tot. Refills 3, Maintenance, 08/08/24 2:42:00 PM EDT, Route to Pharmacy Electronically, [facility], Partial fill upon patient request if [...] 8:09:00 AM EDT, Route to Pharmacy Electronically, [facility], 172.72, cm, 07/25/24 14:48:00 EDT, Height, [...] Name: Darci Ayala RN Position: [facility] ED RN W/OE and Tasks Member Role: Primary Care Nurse Name: Niharika Reza RN Position: [facility] SN RN Member Role: Primary Care Nurse Name: Veronica Kapoor RN Position: S RN Member Role: Primary Care Nurse Name: Paula Garcia RN Position: [facility] RN Member Role: Primary Care Nurse Name: Jocelyn Villanueva RN Position: [facility] SN RN Member Role: Primary Care Nurse Name: Roseann Sullivan RN Position: [facility] RN Member Role: Primary Care Nurse Name: Casimiro Alarcon RN Position: [facility] RN Member Role: Primary Care Nurse Name: Brenda Orr RN Position: [facility] RN Member Role: Primary Care Nurse Name: Chasidy Woodard RN Position: [facility] RN Member Role: Primary Care Nurse Name: Annalisa Aguilar RN Position: [facility] RN Member Role: Primary Care Nurse Name: Heavenly Sen RN Position: [facility] Hospital Custodial Laborer Member Role: Primary Care Nurse Name: Nasima Garcia NP Position: Reference Physician Member Role: Primary Care Nurse Address: [address] [address]- [place] Telecom: Name: Bea Lacey MD Position: [facility] Outreach Member Role: PCP Address: [address] [place] [address]- [place] Telecom: Name: Itzel Tirado MD Position: [facility] Cardiology MD Member Role: Lifetime Consulting Physician Address: [address] [facility] [address] [place] [address]- [place] Telecom: Name: Elena Pyle RN Position: [facility] RN Member Role: Primary Care Nurse Name: Lalito Wheeler RN Position: [facility] RN Member Role: Primary Care Nurse Name: Beatriz Lawrence RN Position: [facility] SN RN Member Role: Primary Care Nurse Name: Dorothea Fong RN Position: [facility] RN Member Role: Primary Care Nurse Name: Get Galo MD Position: [facility] Renal MD Member Role: Lifetime Consulting Physician Address: [address] [facility] [address] [facility] [place] [address]- [place] Telecom: Name: Lucy Bradford RN Position: [facility] RN Member Role: Primary Care Nurse Name: Familia Rivas NP Position: Reference Physician Member Role: Primary Care Nurse Address: [address] [place] [address]- [place] Telecom: Care Team Related Persons Name: DAILYEZEQUIELLAIJOSE ALBERTO Insurance Providers Guarantor name: SHERLY VARGAS Health Plan Information #: 1 Payer: MEDICARE B Payer Identifier: MARVIN Member Number: [id number] Group Number: MARVIN Subscriber Identifier: [id number] Relationship to Subscriber: self Coverage Type: NA Coverage Verification Date: NA Telecom: NA Address: NA Health Plan Information #: 2 P[facility]: [facility] [employer] Payer Identifier: MARVIN Member Number: [id number] Group Number: MARVIN Subscriber Identifier: [id number] Relationship to Subscriber: self Coverage Type: MEDICAID Coverage Verification Date: NA Telecom: NA Address: NA
--- NOTE | 2024-08-23 11:28 | A.OFFVIS_ITS ---
Vital Signs 08/23/24 11:30 Weight 196 lb BP 103/55 L Blood Pressure Location Rt brachial Position Sitting Respiration 18 Pulse 69 Pulse Source Pulse Oximeter Pulse Oximetry (%) 97 Oxygen Delivery Method Room Air Intake Visit Reasons: FU patient req/severe pain Tools And Parts Attendant Required: No Allergies grass pollen Allergy (Mild, Verified 08/23/24 11:29) unknown tree and shrub pollen Allergy (Mild, Verified 08/23/24 11:29) itchy eyes, sneeze, runny nose No Known Drug Allergies Allergy (Unknown, Verified 08/23/24 11:29) none plastic tape Allergy (Unknown, Uncoded 07/04/24 13:03) irritation HPI Comments Details: Malik is in my office today to again adjust his pump. The pump was on minimal rate. Patient was under impression that hydromorphone causes nausea for him. Today he came with intractable lower back pain. I took the pump off of the minimal rate and started him on hydromorphone 7 micro g a day. I decided to change medication in his pain pump admixture. I will next time fill his pump with fentanyl 25 micro g per mL. Hope this medication will be more helpful for his pain control and will not be providing him some side effects. Prior: History of bilateral paintech sacroiliac joint stabilization with fusion. He had significant improvement however he fell in his kitchen and started to experience lot of pain again. He was sent for the x-ray of the pelvis and it appears to be that although both implantation elements are in sacroiliac joints 1 of them got shifted vertical it to the upper portion of the joint and now has a lesser chance to provide enough of the space to form the sacroiliac bridge. Most likely that is why patient started to experience pain again. We decided to treat his pain with addition of the opioids into intrathecal pain pump. For his next pump refill I will fill it up with hydromorphone 150 micro g per mL and bupivacaine 8 milligrams/mL. I will continue to increase concentration of hydromorphone until patient's satisfaction. To temporize his pain level now I will prescribe him short course of Percocet see as below. He is interested in sacroiliac joint fusion now performed by the surgeon with surgical screws. We will find out where this procedure can not be performed and we will refer patient there. He also would like to call [employer] order entry representative and ask him to increase stimulation levels on the machine Prior: This patient is very unfortunate gentleman who is suffering from multiple pain generators. He received multiple forms of treatment to concur the existing pain generators pain. He tried multiple sessions of physical therapy in the past and he continues from time to time to return to his home exercise program to help his pain. He tried multiple medications including NSAIDs muscle relaxants and opioids. NSAIDs give him severe side effects. He is very much concerned about addictive properties of opioids. He reports muscle relaxants help his pain minimally if any. He in the past was injected with multiple procedures including medial branch blocks, radiofrequency ablations, facet joint injections, and eventually he was not very satisfied with results of this injections. He was implanted with [employer] spinal cord stimulator which he reports helped his pain radiating into the bilateral lower extremities. He also reported axial back pain aggravated with sitting and flexing forward and on the MRI he was discovered with Modic type changes in the lumbar spine. Intraseptal procedure was performed with good results for pain aggravated with prolonged sitting however pain which is lower than the lumbar spine in the projection of his pelvis actually getting worse background of alleviated lumbar spine pain. To treat this condition he was implanted with intrathecal pain pump however the intrathecal pain pump was not very instrumental to alleviate his pain. He still receives intrathecal pain pump bupivacaine only however reports significant and advanced pain in the projection of the bilateral sacroiliac joints. He had MRI of the lumbar spine which did not demonstrate any red flags and he did have abdominal and pelvic CT scan which did not demonstrate in pelvis any abnormalities which could be suspected as the pain generators related to sacroiliac joint, sacral bones or iliac bones. 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, lumbar region PVD (peripheral vascular disease) Mood disorder On beta ruddy at home Benign essential tremor CVA (cerebral vascular accident) IDDM (insulin dependent diabetes mellitus) Sleep apnea Chronic renal insufficiency Myocardial infarction CHF (congestive heart failure) CAD (coronary artery disease) AAA (abdominal aortic aneurysm) Arrhythmia On anticoagulant therapy Elevated cholesterol HTN (hypertension) History of ischemic cardiomyopathy 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 Surgical History (Updated 05/21/24 @ 10:18 by Niki Ortiz, RN) History of surgery History of surgery (~2023) Hx of brain surgery (05/10/24) Hx of shoulder surgery History of laparoscopic cholecystectomy (12/08/22) History of surgery History of surgery History of PTCA Hx of parathyroidectomy Hx of CABG History of hernia repair Hx of gastric bypass Hx of endoscopy History of colonoscopy Family History (Reviewed 01/02/24 @ 12:43 by Priscilla Mijares [facility]) Father Hx of congenital heart disease Mother Hx of heat stroke Social History (Updated 05/21/24 @ 09:54 by Niki Ortiz, RN) Household Members: None Housing: Apartment Are you a primary child care director to a significant other at home: No Do you presently have visiting nurse or other home services: Yes ([employer]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 2 hours per week) Alcohol intake: current Alcohol intake frequency: does not drink Comment: counts correct Patient Tobacco Use Status: Former Tobacco user Tobacco use type: Cigarette Second Hand Smoke Exposure: No Review of Systems Const All systems reviewed & are unremarkable except as noted in HPI and below ENT Reports Normal hearing present Neuro Reports Normal hearing present and Denies Abnormal speech present Physical Exam Vital Signs: Last Vital Signs Pulse 69 08/23/24 11:30 Resp 18 08/23/24 11:30 BP 103/55 L 08/23/24 11:30 Pulse Ox 97 08/23/24 11:30 Oxygen Delivery Method Room Air 08/23/24 11:30 Const General: cooperative, no acute distress, alert and well groomed Orientation/consciousness: patient oriented x3 HEENT Head: Yes normocephalic and Yes atraumatic Ears: hearing grossly normal bilaterally Eyes General: appearance normal, both eyes and all related structures Eyelids: Yes eyelids normal Pupils: Equal, round and reactive pupils present EOM: EOMs intact bilaterally Neck Neck: Yes normal visual inspection and Yes no JVD Resp Effort & Inspection: normal respiratory effort, able to speak in complete sentences and no audible wheezes Cardio Jugular venous distension: no JVD Back/Spine/Pelvis Other: Tenderness of palpation paraspinal spinal region in the entire spine cervical thoracic and lumbar. SLR is negative with foot dorsiflexion. Flexing forward aggravates the pain. Flexing backwards does not change the pain. James test, Gaenslen test, pelvic compression test, pelvic destruction test, positive on the left as well as on the right. Neuro General: patient oriented x3, moves all extremities and Normal light touch and pain sensation Cranial nerves: Yes Equal, round and reactive pupils present and Yes Normal hearing present Cognition (Neuro): normal cognition Speech: No Abnormal speech present Assessment & Plan Assessment & Plan (1) Chronic left sacroiliac joint pain: Code(s): M53.3 - Sacrococcygeal disorders, not elsewhere classified; G89.29 - Other chronic pain Category: Medical (2) Sacroiliitis: Code(s): M46.1 - Sacroiliitis, not elsewhere classified Category: Medical (3) Vertebrogenic low back pain: Code(s): M54.51 - Vertebrogenic low back pain Category: Medical (4) Chronic pain syndrome: Code(s): G89.4 - Chronic pain syndrome Category: Medical (5) Poorly controlled type 2 diabetes mellitus: Code(s): E11.65 - Type 2 diabetes mellitus with hyperglycemia Category: Medical Plan Today I took medication off of the minimal rate which was introduced for him because he believed that nausea is a result of his pain medication. Next time I will change his medication for fentanyl 25 micro g per mL the starting dose will be like 12.5 micro g a day. I offered him to come earlier but he has multiple appointments for his brain stimulation adjustment and he can not come to my office before that time. Coding Level of Care Code Est Pt Level 3 (01839) Diagnoses Chronic left sacroiliac joint pain M53.3; G89.29 Sacroiliitis M46.1 Vertebrogenic low back pain M54.51 Chronic pain syndrome G89.4 Poorly controlled type 2 diabetes mellitus E11.65
[2024-08-23 11:30] VITALS: BP 103/55; PULSE 69; RESP 18; O2SAT 97
--- OUTSIDE RECORDS SUMMARY | 2024-08-23 11:51 | XMS_ITS | Clinical Summary ---
Author Organization [facility][1] Address [address] [address] Phone Care Team Providers Care Equip Maint Eng Name Role Phone Lula Lacey MD Primary Care Provider [phone] Allergies Active Allergy Reactions Criticality Noted Date Comments Grass Pollen Standardized Ext 07/09/2020 Other 01/28/2022 Grass pollen, Tree and shrub pollen per previous EHR (07/09/20) Pollen Extract 07/09/2020 Medications rosuvastatin (CRESTOR) 40 MG tablet Take 1 tablet by mouth 1 (one) time each day Active aspirin (ST ANU) 81 MG EC tablet Take 81 mg by mouth 1 (one) time each day Active docusate sodium (COLACE) 50 MG capsule Take by mouth 2 (two) times a day Active carvedilol (COREG) 6.25 MG tablet Take 6.25 mg by mouth 2 (two) times a day with meals Active isosorbide mononitrate (IMDUR) 60 MG 24 hr tablet Take 60 mg by mouth 1 (one) time each day Do not crush or chew. Active buPROPion XL (WELLBUTRIN XL) 300 MG 24 hr tablet 1 Active Relistor 150 MG tablet 1 Active prazosin (MINIPRESS) 1 MG capsule TAKE ONE CAPSULE BY MOUTH AT BEDTIME 1 Active spironolactone (ALDACTONE) 25 MG tablet 1 Active esomeprazole (NexIUM) [address] capsule [...] mouth 1 (one) time each day Active lisinopril 10 MG tablet Take 10 mg by mouth 1 (one) time each day Active sertraline (ZOLOFT) 100 MG tablet Take 100 mg by mouth 1 (one) time each day Active Cholecalciferol (Vitamin D-3) 25 MCG (1000 UT) capsule Take by mouth Active Melatonin 5 MG tablet Take by mouth Active sucralfate (CARAFATE) 1 g tablet Take 1 g by mouth in the morning and 1 g at noon and 1 g in the evening and 1 g before bedtime. Active Calcium Carb-Cholecalcif glenn (CALCIUM 600 + D PO) Take by mouth Acti ve eplerenone (INSPRA) 25 MG tablet Take 25 mg by mouth 1 (one) time each day Active pilocarpine (SALAGEN) 5 MG tablet Take 5 mg by mouth in the morning and 5 mg in the evening and 5 mg before bedtime. Active primidone (MYSOLINE) 250 MG tablet Take 250 mg by mouth in the morning and 250 mg at noon and 250 mg in the evening and 250 mg before bedtime. Active Methylnaltrexone Gruver (Relistor) 150 MG tablet Take by mouth Active glipiZIDE (GLUCOTROL) 5 MG tablet Take 5 mg by mouth in the morning and 5 mg in the evening. Take before meals. Active hydrOXYzine (VISTARIL) 25 MG capsule Take 25 mg by mouth 3 (three) times a day if needed for itching Active cloNIDine (CATAPRES) 0.1 MG tablet Take 0.1 mg by mouth in the morning and 0.1 mg in the evening. Active Active Problems Problem Noted Date Diagnosed Date Right flank pain 07/11/2024 Chronic kidney disease stage 2 01/25/2024 Chronic [...] stage 3 07/01/2020 Hypertensive renal disease 07/01/2020 Nephrolithiasis 07/01/2020 Type 2 diabetes mellitus without complication Stage 3a chronic kidney disease 07/01/2020 Abdominal aortic aneurysm 11/02/2018 Encounters Date Type Department Care Team Description 07/25/2024 Office Communication [facility] [address] [phone] Mechelle Romo 07/11/2024 2:30 PM EDT Office Visit [facility] [address] [address] Jeri Keller ARNP Stage 3a chronic kidney disease (HCC) (Primary Dx); Hypertension; Nephrolithiasis; Right flank pain 07/06/2024 Orders Only [facility] [address] [phone] Get Galo MD 07/06/2024 Orders Only [facility] [address] [phone] Get Galo MD from Last 3 Months Immunizations Immunization Administration Dates Next Due Hepatitis [...] Sign Reading Time Taken Comments Blood Pressure 120/64 07/11/2024 2:21 PM EDT Pulse 56 07/11/2024 2:21 PM EDT Temperature - - Respiratory Rate - - Oxygen Saturation 99% 07/11/2024 2:21 PM EDT Inhaled Oxygen Concentration - - Weight 87.1 kg (192 lb) 07/11/2024 2:21 PM EDT Height - - Body Mass Index - - Plan of Treatment Upcoming Encounters Date Type Department Care Team (Late st Contact Info) Description 01/15/2025 1:30 PM EST Office Visit [facility] [address] [phone] Get Galo MD [address] [phone] 01/30/2025 1:00 PM EST Office Visit [facility] [address] [phone] Get Galo MD [address] [phone] Health Maintenance Due Date Last Done Comments Colorectal Cancer Screening: Annual FOBT 2001 Colorectal Cancer Screening: Colonoscopy 2001 Colorectal Cancer Screening: Sigmoidoscopy 2001 Diabetes: Ophthalmology Exam 03/23/2020 Diabetes: Pedal Pulse Checked 03/23/2020 Diabetes: Sensory Foot Exam 03/23/2020 Diabetes: Visual Foot Exam 03/23/2020 Diabetes: Hemoglobin A1C 08/31/2024 025, 11/10/2023, 09/21/2018 Influenza Vaccine (#1) 2024 4, 12/03/2021, 12/15/2020, Additional history exists Hepatitis B Vaccine Aged Out 10/08/2016, 06/15/2016, 02/12/2016 No longer eligible based on patient's age to complete this topic Pneumococcal Vaccine: 50+ Years Completed 09/15/2020, 10/26/2018, 04/26/2012, Additional history exists Pneumococcal Vaccine: Peds (0 to 5 Years) and At-Risk Patients (6 to 49 Years) Discontinued 09/15/2020, 10/26/2018, 04/26/2012, Additional history exists Procedures Procedure Name Priority Date/Time Associated Diagnosis Comments URINE ALBUMIN / CREATININE RATIO Routine 07/06/2024 1:50 PM EDT PROTEIN / CREATININE RATIO, URINE Routine 07/06/2024 1:50 PM EDT URINALYSIS WITH MICROSCOPIC Routine 07/06/2024 1:50 PM EDT MICROSCOPIC EXAMINATION - DO NOT USE Routine 07/06/2024 1:50 PM EDT RENAL FUNCTION PANEL Routine 07/06/2024 10:47 AM EDT BLOOD PANEL (HC) Routine 09/21/2018 12:0 0 AM EDT from Last 3 Months or Most Recently Relevant to Health Maintenance Results * Microscopic Examination (07/06/2024 1:50 PM EDT) WBC, Urine None seen 0 - 5 /hpf [facility] RBC, Urine 0-2 0 - 2 /hpf [facility] Squamous Epithelial, Urine None seen 0 - 10 /hpf [facility] Casts None seen None seen /lpf [facility] Bacteria, Urine None seen None seen/Few [facility] 07/06/2024 1:50 PM EDT 07/06/2024 us Get Galo MD LAB MICROBIOLOGY - GENERAL OR DERABLES Final Result [facility] [address] [place] [address] * Protein, Total, Random Urine w/Creatinine (Protein/Creat Ratio) (07/06/2024 1:50 PM EDT) Creatinine, Ur 59.6 Not Estab. mg/dL [facility] Protein, Ur 7.3 Not Estab. mg/dL [facility] Urine Protein/Creatin ine Ratio 122 0 - 200 mg/g creat [facility] 07/06/2024 1:50 PM EDT 07/06/2024 Get Galo MD LAB URINE ORDERABLES Final Re sult Performing Organization Address City/[facility]/ZIP Co de Phone Number [facility] [address] [place] [address] * Urine Albumin / Creatinine Ratio (07/06/2024 1:50 PM EDT) Albumin, Urine 3.8 Not Estab. ug/mL [facility] Albumin/Creatin ine Ratio 6 0 - 29 mg/g creat [facility] Comment: Normal: 0 - 29 Moderately increased: 30 - 300 Severely increased: >300 07/06/2024 1:50 PM EDT 07/06/2024 Get Galo MD LAB URINE ORDERABLES Final Re sult Performing Organization Address [facility] de Phone Number [facility] [address] [place] [address] * (ABNORMAL) Urinalysis with microscopic (07/06/2024 1:50 PM EDT) Specific [place], Urine 1.018 1.005 - 1.030 [facility] [phone] pH Urine 6.0 5.0 - 7.5 [facility] [phone] Color, Urine Yellow Yellow [facility] [phone] Appearance Urine Clear Clear [facility] WBC Esterase Urine 1+(A) Negative [facility] [phone] Protein, Ur Negative Negative/Tra ce [facility] [phone] Glucose, Ur 3+(A) Negative [facility] Ketones, Urine Negative Negative [facility] Blood Urine Negative Negative [facility] Bilirubin Urine Negative Negative [facility] Urobilinogen Urine 0.2 0.2 - 1.0 mg/dL [facility] Nitrite, Urine Negative Negative [facility] [phone] Microscopic Examination See below: [facility] Comment:Microscopic was casa cated and was performed. 07/06/2024 1:50 PM EDT 07/06/2024 us Get Galo MD LAB URINE ORDERABLES Final Re sult [facility] [address] [place] [address] * (ABNORMAL) Renal Function Panel (07/06/2024 10:47 AM EDT) Glucose 148(H) 70 - 99 mg/dL [facility] BUN 20 8 - 27 mg/dL [facility] Creatinine 1.09 0.76 - 1.27 mg/dL [facility] eGFR CKD-EPI CR 2020 72 >59 mL/min/1.7 3 [facility] BUN/Creatinine Ratio 18 10 - 24 [facility] Sodium 144 134 - 144 mmol/L [facility] Potassium 4.3 3.5 - 5.2 mmol/L [facility] Chloride 103 96 - 106 mmol/L [facility] Bicarbonate (CO2) 24 20 - 29 mmol/L [facility] Calcium 9.3 8.6 - 10.2 mg/dL [facility] Albumin 4.4 3.8 - 4.8 g/dL [facility] Phosphorus 2.9 2.8 - 4.1 mg/dL [facility] 07/06/2024 10:4 7 AM EDT 07/06/2024 Get Galo MD LAB BLOOD ORDERABLES Final Re sult [facility] [address] [place] [address] * (ABNORMAL) Blood Panel (09/21/2018 12:00 AM [...] ug/dl RTAMA 09/21/2018 us R[facility]ama Conversion LAB [id number] LICITED RESULTS Final Result [facility] from Last 3 Months or Most Recently Relevant to Health Maintenance Insurance Medicare Medicaid [place] Medicare Medicaid [place] Care Teams Equip Maint Eng Relationship Specialty Start Date End Date Lula Lacey MD [address] [place] [address] PCP - General Internal Medicine 01/25/24
--- OUTSIDE RECORDS SUMMARY | 2024-08-23 11:51 | XMS_ITS | Encounter Summary ---
Author Organization [employer] Address [address] [facility] [address] [place] [address] Care Team Providers Care Mine Environmental Engineer Name Role Phone Bea Lacey MD Primary Care Provider [phone] Mariely Dennison PharmD Unavailable [phone] Reason for Visit * Reason Onset Date Comments Results 03/30/2023 Encounter Details Date Type Department Care Team ([facility] st Contact Info) Description 03/30/2023 Telephone [facility] [address] [place], [place] [phone] Bea Lacey MD [address] [place], [place] [phone] Results Social History Tobacco Use Types Packs/Day [...] Care Team (Late st Contact Info) Description 09/18/2024 9:15 AM EDT Office Visit [facility] [address] [place] [address] Bea Lacey MD [address] [place] [address] 10/08/2024 10:00 AM EDT Medication Management [facility] [address] [place] [address] Mariely Dennison PharmD [address] [place] [address] 12/14/2024 2:00 PM EDT Office Visit [facility] [address] [place] [address] Daniele Barlow documented as of this encounter Visit Diagnoses Not on filedocumented in this encounter Additional Health Concerns Assessment Noted Time PHQ-9 Depression Total Score: 7 05/29/19 23 10:45 AM EDT documented as of this encounter Care Teams Mine Environmental Engineer Relationship Specialty Start Date End Date Bea Lacey MD [address] [place] [address] PCP - General Family Medicine 09/22/22 Mariely Dennison PharmD [address] [place] [id number] Pharmacist Internal Medicine 07/03/24 documented as of this encounter
--- OUTSIDE RECORDS SUMMARY | 2024-08-23 11:51 | XMS_ITS | Referral Summary ---
Author Organization [facility] Address [address] [place] [address] Care Team Providers Care Log Hooker Name Role Phone Bea Lacey Primary Care Provider [phone] Allergies No known active allergies Medications buPROPion [...] I'd recommend he obtain clearance from his labor mediator given his history of multiple coronary events. I would also want to seek further clarification from his neurosurgeon as to what other clearance is being sought from the neurologist's standpoint. I will be reaching out to Dr. Payan's office. CAD in [place] artery 01/28/2022 Overview (12/30/2023): CABG with multiple [...] of Treatment Not on file Insurance MEDICARE [facility] Care Teams Log Hooker Relationship Specialty Start Date End Date Bea Lacey [address] [place], [place] [address] [address] PCP - General Family Medicine 12/26/23
== END 2024-08-23 11:48 | disposition home or self-care (01) ==
LOC: HO.PMC 11:02
PROVIDERS: PCP Student in an Organized Health Care Education/Training Program; Visit Provider Anesthesiology
DX: M53.3 Sacrococcygeal disorders, not elsewhere classified (principal); G89.29 Other chronic pain; M46.1 Sacroiliitis, not elsewhere classified; M54.51 Vertebrogenic low back pain; G89.4 Chronic pain syndrome; E11.65 Type 2 diabetes mellitus with hyperglycemia
CPT/HCPCS: 99213

== ENCOUNTER → 2024-08-23 11:01 | Outpatient (BNVA) | payer MEDICARE, MEDICAID, SELFPAY | PROVIDERS: PCP Student in an Organized Health Care Education/Training Program; Visit Provider Anesthesiology | DX: Z45.89 Encounter for adjustment and management of other implanted devices (principal); M53.3 Sacrococcygeal disorders, not elsewhere classified; M46.1 Sacroiliitis, not elsewhere classified; M54.51 Vertebrogenic low back pain; G89.29 Other chronic pain; E11.65 Type 2 diabetes mellitus with hyperglycemia; Z79.891 Long term (current) use of opiate analgesic | CPT/HCPCS: 99212 ==

== ENCOUNTER 2024-09-06 09:19 | Outpatient (AMB) | payer MEDICARE, MEDICAID, SELFPAY ==
--- OUTSIDE RECORDS SUMMARY | 2024-09-05 23:59 | XMS_ITS | Continuity of Care Document ---
Author Organization [facility] Address [address] [facility], 3r d Floor, [address] [place] [address]- Care Team Providers Care Differential Repairer Name Role Phone Deepthi SOTOMAYOR, Bea Mclean Primary Care Physician Encounter [facility] Date(s): 08/06/24 - 09/05/24 [facility] [address] [place] [address], [address] [place] [address]- Encounter Type: Triage Allergies, Adverse Reactions, Alerts No Known Medication Allergies Substance Criticality Severity Reaction Reaction Severity Status Grass Unable to assess criticality Intermittent watery eyes/runny nose Active Immunizations Given and Recorded Vaccine Date Status Refusal Reason [id number] 12y+ bivalent booster vax 12/08/21 Recorded SARS-CoV-2 (COVID-19) mRNA BNT-162b2 vac 12/24/20 Recorded SARS-CoV-2 (COVID-19) mRNA-1273 vaccine 05/27/20 R ecorded SARS-CoV-2 (COVID-19) mRNA-1273 vaccine 04/29/20 R ecorded pneumococcal 23-valent vaccine 04/26/12 Given influenza virus vaccine, inactivated 04/26/12 Give n Pneumococcal Vaccine (oldterm) 1 01/01/06 Given 1Result Comment: lot # [id number] EXP 08/20/06 PT INFO 09/04/04 Medications Amitiza 8 mcg oral capsule 1 capsule = 8 mcg, By Mouth, 2 times a day, # 60 capsule, 3 Refills, Maintenance, 09/10/24 11:25:00 AM EDT, Capsule, [facility], Partial fill upon patient request if the prescription is for a schedule II opioid drug., 172.72, cm, 08/22/24 14:28:00 EDT, Height, 88, kg, 06/25/24 14 :42:00 EDT, Dry Weight Start Date: 09/10/24 Stop Date: 01/08/25 Status: Ordered Quantity: 60.0 Unit: capsule Repeat number: 4 Indications: Constipation, unspecified; aspirin 81 mg oral tablet, chewable 81 mg, 1, tablet, By Mouth, Daily, Refills 0, Maintenance, 06/13/24 10:01:00 AM EDT, Partial fill upon patient request [...] 0.5 mg, By Mouth, 3 times a day, PRN Anxiety, 0 Refills, Maintenance, 08/29/24 3:39:00 PM EDT, Tablet, Partial fill upon patient request if the prescription is for a schedule II opioid drug. Start Date: 08/29/24 Status: Ordered Repeat number: 1 Compression- Lower [...] Maintenance, 12/13/23 12:27:00 PM EDT, [facility], Partial fill upon patient request if [...] 9:46:00 AM EDT, Route to Pharmacy Electronically, [facility], Partial fill upon patient request if the prescription is for a schedule II opioid drug., 172.72, cm, 05/03/24 8:19:00 EDT, Height, 89.9, kg, 05/10/24 9:18:00 EDT, Dry Weight Start Date: 05/11/24 Stop Date: 05/25/24 Status: Ordered Quantity: 28.0 Unit: capsule Repeat number: 1 eplerenone 25 mg oral tablet 1 tablet = 25 mg, By Mouth, Daily, At noon, # 90 tablet, 3 Refills, Maintenance, 02/03/24 8:19:00 AM EST, [facility], 172.72, cm, 01/30/24 9:29:00 EST, Height, [...] Date: 04/07/20 Status: Ordered Repeat number: 1 gabapentin 300 mg oral capsule 300 mg, 1, capsule, By Mouth, 3 times a day, # 270 capsule, Refills 0, Maintenance, 08/21/24 10:07:00AM EDT, Partial fill upon patient request if the prescription is for a schedule II opioid drug. Start Date: 08/21/24 Status: Ordered Quantity: 270.0 Unit: capsule Repeat number: 1 Golytely - oral powder for reconstitution See Instructions, Follow instructions from GI, # 4,000 mL, 0 Refills, Maintenance, 08/21/24 10:10:00 AM EDT, [facility], Partial fill upon patient request if the prescription is for a schedule II opioid drug., Follow instructions from GI, 172.72, cm, 08/21/24 9:43:00 EDT, Height,88, kg, 06/25/24 14:42:00 EDT, Dry Weight Start Date: 08/21/24 Status: Ordered Quantity: 4000.0 Unit: mL Repeat number: 1 Indications: Encounter for other preprocedural examination; hydrOXYzine hydrochloride 25 mg oral tablet 1 tablet = 25 mg, By Mouth, 2 times a day, PRN as needed for anxiety, 0 Refills, Maintenance, 07/25/24 2:55:00 PM EDT, Partial fill upon patient request if the prescription is for a schedule II opioid drug. Start Date: 07/25/24 Status: Ordered Repeat number: 1 isosorbide mononitrate 60 mg oral tablet, extended release 2 tablet, By Mouth, Daily in AM, # 180 tablet, 3 Refills, Maintenance, 05/01/24 10:25:00 AM EDT, [facility], 172, cm, 05/01/24 8:22:00 EDT, Height, 88.5, kg, 04/05/24 8:14:00 EST,Dry Weight Start Date: 05/01/24 Status: Ordered Quantity: 180.0 Unit: tablet Repeat number: 1 lisinopril 10 mg oral tablet 10 mg, 1, tablet, By Mouth, Daily, # 90 tablet, Refills 4, Tot. Refills 4, Maintenance, 12/12/23 2:14:00 PM EDT, Route to Pharmacy Electronically, [facility], Partial fill upon patient request if [...] number: 1 pilocarpine 5 mg oral tablet 1 tablet = 5 mg, By Mouth, 2 times a day, 0 Refills, Maintenance, 04/17/24 11:27:00 AM EST, [...] EDT, Route to Pharmacy Electronically, [facility], Partial fill upon patient request if [...] EDT, Route to Pharmacy Electronically, [facility], 172.72, cm, 07/25/24 14:48:00 EDT, Height, [...] tablet = 20 mg, By Mouth, Daily at bedtime, in evening, 0 Refills, Maintenance, 06/13/24 10:06:00 AM EDT, [...] Active Chronic atrial fibrillation Confirmed Active Chronic constipation Confirmed Active Chronic insomnia Confirmed Active CKD (chronic kidney disease) stage 3 Confirmed Active Depression 3 Confirmed Active Diverticulitis Confirmed Active History of Drug use, Cocaine Confirmed Active Anticoagulated Confirmed Active Esophageal spasm Confirmed Active Essential tremor Confirmed Active GERD (gastroesophageal reflux disease) Confirmed Active Chronic heart failure with preserved ejection fraction Confirmed Active Hyperlipidemia Confirmed Active Hypertension Confirmed Active Occasional tremors Confirmed Active Left ventricular systolic dysfunction Confirmed Active Mood disorder Confirmed Active Nightmares associated with chronic post-traumatic stress disorder Confirmed Active Obstructive sleep apnea Confirmed Active Old myocardial infarct X9 Confirmed Active S/P placement of hypoglossal nerve stimulator Confirmed Active S/P insertion of brain-responsive neurostimulation device Confirmed Active Encounter for diagnostic endoscopy Confirmed Active PVD (peripheral vascular disease) Confirmed [...] Personnel Name: Darci Ayala RN Position: [facility] ED RN W/OE and Tasks Member Role: Primary Care Nurse Name: Niharika Reza RN Position: [facility] SN RN Member Role: Primary Care Nurse Name: Veronica Kapoor RN Position: [facility] RN Member Role: Primary Care Nurse Name: Paula Garcia RN Position: [facility] RN Member Role: Primary Care Nurse Name: Jocelyn Villanueva RN Position: [facility] SN RN Member Role: Primary Care Nurse Name: Roseann Sullivan RN Position: [facility] RN Member Role: Primary Care Nurse Name: Marisela Salas RN Position: [facility] RN Member Role: Primary Care Nurse Name: Casimiro Alarcon RN Position: [facility] RN Member Role: Primary Care Nurse Name: Brenda Orr RN Position: [facility] RN Member Role: Primary Care Nurse Name: Chasidy Woodard RN Position: [facility] RN Member Role: Primary Care Nurse Name: Annalisa Aguilar RN Position: [facility] RN Member Role: Primary Care Nurse Name: Heavenly Sen RN Position: [facility] Hospital Baggage Porter Member Role: Primary Care Nurse Name: Nasima Garcia NP Position: Reference Physician Member Role: Primary Care Nurse Address: [address] [place] [address]- [place] Telecom: Name: Bea Lacey MD Position: [facility] Outreach Member Role: PCP Address: [address] [place] [address]- [place] Telecom: Name: Itzel Tirado MD Position: [facility] Cardiology MD Member Role: Lifetime Consulting Physician Address: [address] [place] [address] [address] [place] [address]- Telecom: Name: Elena Pyle RN Position: S RN Member Role: Primary Care Nurse Name: Lalito Wheeler RN Position: S RN Member Role: Primary Care Nurse Name: Marcia Keller RN Position: S RN Member Role: Primary Care Nurse Name: Beatriz Lawrence RN Position: [facility] SN RN Member Role: Primary Care Nurse Name: Dorothea Fong RN Position: [facility] SN RN Member Role: Primary Care Nurse Name: Get Galo MD Position: [facility] Renal MD Member Role: [employer]etime Consulting Physician Address: [address] [facility] [address] [facility] [place] [address]- Telecom: Name: Lucy Bradford RN Position: [facility] RN Member Role: Primary Care Nurse Name: Familia Rivas NP Position: Reference Physician Member Role: Primary Care Nurse Address: [address] [place] [address]- Telecom: Care Team Related Persons Name: JOSE ALBERTO VARGAS Insurance Providers Guarantor name: SHERLY VARGAS Health Plan Information #: 1 Payer: MEDICARE B Payer Identifier: Member Number: [id number] Group Number: Subscriber Identifier: [id number] Relationship to Subscriber: self Coverage Type: NA Coverage Verification Date: NA Telecom: NA Address: Health Plan Information #: 2 P[facility]: [facility] Payer Identifier: NA Member Number: [id number] Group Number: Subscriber Identifier: [id number] Relationship to Subscriber: self Coverage Type: MEDICAID Coverage Verification Date: NA Telecom: NA Address:
[2024-09-06 09:27] VITALS: BP 112/62; PULSE 75; RESP 16; O2SAT 94
--- NOTE | 2024-09-06 09:27 | A.OFFVIS_ITS ---
Vital Signs 09/06/24 09:27 Weight 195 lb BP 112/62 Blood Pressure Location Lt brachial Position Sitting Respiration 16 Pulse 75 Pulse Source Pulse Oximeter Pulse Oximetry (%) 94 Oxygen Delivery Method Room Air Intake Visit Reasons: Follow Up/Discuss Decreasing Medication Plate Hanger Required: No Allergies grass pollen Allergy (Mild, Verified 09/06/24 09:26) unknown tree and shrub pollen Allergy (Mild, Verified 09/06/24 09:26) itchy eyes, sneeze, runny nose No Known Drug Allergies Allergy (Unknown, Verified 09/06/24 09:26) none plastic tape Allergy (Unknown, Uncoded 07/04/24 13:03) irritation HPI Comments Details: Malik is in my office today to again adjust his pump. He reports dizziness and drowsiness he reports sleepiness all the time. Last time I increase his dose to 7 micro g a day from minimal rate. Now he requests me to decrease his medication back to minimal rate. He believes that those symptoms are coming from the pump. I do not believe 7 micro g of hydromorphone a day could induce such a severe dizziness and drowsiness, I think that this is related to his brace stimulating device. I recommended him to schedule an appointment with his surgeon who inserted brain stimulation device to him. I did read his pump and put him on minimal rate today and the right is 0.9 micro g a day, this dose p hysiologically absolutely irrelevant and unlikely exerts any cephalad spread of the medication. Prior: History of bilateral paintech sacroiliac joint stabilization with fusion. He had significant improvement however he fell in his kitchen and started to experience lot of pain again. He was sent for the x-ray of the pelvis and it appears to be that although both implantation elements are in sac roiliac joints 1 of them got shifted vertical it to the upper portion of the joint and now has a lesser chance to provide enough of the space to form the sacroiliac bridge. Most likely that is why patient started to experience pain again. We decided to treat his pain with addition of the opioids into intrathecal pain pump. For his next pump refill I will fill it up with hydromorphone 150 micro g per mL and bupivacaine 8 milligrams/mL. I will continue to increase concentration of hydromorphone until patient's satisfaction. To temporize his pain level now I will prescribe him short course of Percocet see as below. He is interested in sacroiliac joint fusion now performed by the surgeon with surgical screws. We will find out where this procedure can not be performed and we will refer patient there. He also would like [facility] service representative and ask him to increase stimulation levels on the machine Prior: This patient is very unfortunate gentleman who is suffering from multiple pain generators. He received multiple forms of treatment to concur the existing pain generators pain. He tried multiple sessions of physical therapy in the past and he continues from time to time to return to his home exercise program to help his pain. He tried multiple medications including NSAIDs muscle relaxants and opioids. NSAIDs give him severe side effects. He is very much concerned about addictive properties of opioids. He reports muscle relaxants help his pain minimally if any. He in the past was injected with multiple procedures including medial branch blocks, radiofrequency ablations, facet joint injections, and eventually he was not very satisfied with results of this injections. He was implanted with Nevro spinal cord stimulator which he reports helped his pain radiating into the bilateral lower extremities. He also reported axial back pain aggravated with sitting and flexing forward and on the MRI he was discovered with Modic type changes in the lumbar spine. Intraseptal procedure was performed with good results for pain aggravated with prolonged sitting however pain which is lower than the lumbar spine in the projection of his pelvis actually getting worse background of alleviated lumbar spine pain. To treat this condition he was implanted with intrathecal pain pump however the intrathecal pain pump was not very instrumental to alleviate his pain. He still receives intrathecal pain pump bupivacaine only however reports significant and advanced pain in the projection of the bilateral sacroiliac joints. He had MRI of the lumbar spine which did not demonstrate any red flags and he did have abdominal and pelvic CT scan which did not demonstrate in pelvis any abnormalities which could be suspected as the pain generators related to sacroiliac joint, sacral bones or iliac bones. 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, lumbar region PVD (peripheral vascular disease) Mood disorder On beta ruddy at home Benign essential tremor CVA (cerebral vascular accident) IDDM (insulin dependent diabetes mellitus) Sleep apnea Chronic renal insufficiency Myocardial infarction CHF (congestive heart failure) CAD (coronary artery disease) AAA (abdominal aortic aneurysm) Arrhythmia On anticoagulant therapy Elevated cholesterol HTN (hypertension) History of ischemic cardiomyopathy 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 Surgical History (Updated 05/21/24 @ 10:18 by Niki Ortiz, RN) History of surgery History of surgery (~2023) Hx of brain surgery (05/10/24) Hx of shoulder surgery History of laparoscopic cholecystectomy (12/08/22) History of surgery History of surgery History of PTCA Hx of parathyroidectomy Hx of CABG History of hernia repair Hx of gastric bypass Hx of endoscopy History of colonoscopy Family History Father Hx of congenital heart disease Mother Hx of heat stroke Social History (Updated 05/21/24 @ 09:54 by Niki Ortiz, CRISTELA) Household Members: None Housing: Apartment Are you a primary ambulatory care nurse to a significant other at home: No Do you presently have visiting nurse or other home services: Yes (MORTU[employer] OPERATIONS MANAGER 2 hours per week) Alcohol intake: current Alcohol intake frequency: does not drink Comment: counts correct Patient Tobacco Use Status: Former Tobacco user Tobacco use type: Cigarette Second Hand Smoke Exposure: No Review of Systems Const All systems reviewed & are unremarkable except as noted in HPI and below ENT Reports Normal hearing present Neuro Reports Normal hearing present and Denies Abnormal speech present Physical Exam Vital Signs: Last Vital Signs Pulse 75 09/06/24 09:27 Resp 16 09/06/24 09:27 BP 112/62 09/06/24 09:27 Pulse Ox 94 09/06/24 09:27 Oxygen Delivery Method Room Air 09/06/24 09:27 Const General: cooperative, no acute distress, alert and well groomed Orientation/consciousness: patient oriented x3 HEENT Head: Yes normocephalic and Yes atraumatic Ears: hearing grossly normal bilaterally Eyes General: appearance normal, both eyes and all related structures Eyelids: Yes eyelids normal Pupils: Equal, round and reactive pupils present EOM: EOMs intact bilaterally Neck Neck: Yes normal visual inspection and Yes no JVD Resp Effort & Inspection: normal respiratory effort, able to speak in complete sentences and no audible wheezes Cardio Jugular venous distension: no JVD Back/Spine/Pelvis Other: Tenderness of palpation paraspinal spinal region in the entire spine cervical thoracic and lumbar. SLR is negative with foot dorsiflexion. Flexing forward aggravates the pain. Flexing backwards does not change the pain. James test, Gaenslen test, pelvic compression test, pelvic destruction test, positive on the left as well as on the right. Neuro General: patient oriented x3, moves all extremities and Normal light touch and pain sensation Cranial nerves: Yes Equal, round and reactive pupils present and Yes Normal hearing present Cognition (Neuro): normal cognition Speech: No Abnormal speech present Assessment & Plan Assessment & Plan (1) Chronic left sacroiliac joint pain: Code(s): M53.3 - Sacrococcygeal disorders, not elsewhere classified; G89.29 - Other chronic pain Category: Medical (2) Sacroiliitis: Code(s): M46.1 - Sacroiliitis, not elsewhere classified Category: Medical (3) Vertebrogenic low back pain: Code(s): M54.51 - Vertebrogenic low back pain Category: Medical (4) Chronic pain syndrome: Code(s): G89.4 - Chronic pain syndrome Category: Medical (5) Poorly controlled type 2 diabetes mellitus: Code(s): E11.65 - Type 2 diabetes mellitus with hyperglycemia Category: Medical Plan He reports drowsiness dizziness and sleepiness. He thinks that this is from the pain pump. I put the pump to the minimal rate, with this concentration of the medication minimal rate is 0.9 micro g a day, this is completely relevant dose of the medication unlikely any cephalad spread and supratentorial function. I will see this patient as needed, I believe he needs to see as soon as possible his neurologist and neurosurgeon who implanted brain stimulating device to him. Coding Level of Care Code Est Pt Level 3 (73606) Diagnoses Chronic left sacroiliac joint pain M53.3; G89.29 Sacroiliitis M46.1 Vertebrogenic low back pain M54.51 Chronic pain syndrome G89.4 Poorly controlled type 2 diabetes mellitus E11.65
--- OUTSIDE RECORDS SUMMARY | 2024-09-06 09:35 | XMS_ITS | Patient Health Record ---
Author Organization [facility] Address [address] [place] [address] Care Team Providers Care Clicker Operator Name Role Phone Jeri Stokes M.D. Primary Care Provider Madie vailable Markus Parker Unavailable [phone] Reason For Referral No Information Plan Of Treatment No Information Insurance Providers Payer Name Payer Address Payer Phone Subscriber Number Group Number Insured Name Patient Relationship to Insured Coverage Start Date Coverage End Date MEDICARE OF [facility] [address] [place] [id number] SHERLY VARGAS Self - patient is the insured
--- OUTSIDE RECORDS SUMMARY | 2024-09-06 09:35 | XMS_ITS | Clinical Summary ---
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 Benign hypertension 12/30/2023 BPH (benign prostatic hyperplasia) 12/30/2023 Bilateral cataracts 12/30/2023 Bilateral tinnitus 12/30/2023 CVA (cerebral vascular accident) ([facility] V24, [facility] V28) 12/30/2023 Heart failure with normal ej ection fraction ([facility] V24, [facility] V28) 12/30/2023 Hyperlipidemia 12/30/2023 History of parathyroidectomy 12/30/2023 CKD (chronic kidney disease) 12/30/2023 Type 2 diabetes mellitus wit h hyperglycemia ([facility] V24, [facility] V28) 12/30/2023 CAD in [place] artery 12/30/2023 Erectile dysfunction due to diseases [...] COVID-19 Vaccine (7 - Mixed Product risk season) 2024 11/01/2023, 11/18/2022, 12/08/2021, Additional history exists Diabetes: Blood Sugar Control Test (HGBA1C) 05/09/2024 11/10/2023 Depression Screening 06/02/2024 06/03/2023 Influenza Vaccine (#1) 2024 , 11/09/2022, 12/03/2021, Additional history exists Diabetes: Annual GFR (Glomerular Filtration Rate) 11/09/2024 11/10/2023, 02/06/2001 Hypertension/CHF/CAD Annual BMP Blood Test 11/09/2024 11/10/2023, 02/06/2001 Cholesterol Screening (Lipid Panel) 11/09/2028 11/10/2023 DTaP,Tdap,and Td Vaccines (4 - Td or Tdap) 09/15/2030 09/15/2020, 08/08/2009, 09/29/2005 Hepatitis B Vaccines Completed 10/08/2016, 06/15/2016, 02/12/2016 Zoster Vaccines Completed 01/31/2019, 11/21, 06/17/2014 Pneumococcal Vaccine: 50+ Years Completed 09/15/2020, 10/26/2018, 04/26/2012, Additional history exists HIB Vaccines Aged Out [...] Results * Annual BMP Blood Test (02/06/2001) Pathologist [facility] Annual BMP Blood Test abstracted Historical Provider HEALTH MAINTENANCE Final Result from Last 3 Months or Most Recently Relevant to Health Maintenance Insurance MEDICARE MEDICAID - [place] Care Teams Lead Warehouse Associate Relationship Specialty Start Date End Date Bea Lacey MD [address] [place] [id number] PCP - General 04/04/23
--- OUTSIDE RECORDS SUMMARY | 2024-09-06 09:35 | XMS_ITS | Referral Summary ---
Author Organization [facility] Address [address] [place] [address] Care Team Providers Care Biochemistry Teacher Name Role Phone Bea Lacey Primary Care [...] I'd recommend he obtain clearance from his warp coiler given his history of multiple coronary events. I would also want to seek further clarification from his neurosurgeon as to what other clearance is being sought from the neurologist's standpoint. I will be reaching out to Dr. Payan's office. CAD in [place] artery 01/28/2022 Overview (12/30/2023): CABG with multiple [...] of Treatment Not on file Insurance MEDICARE [facility] Care Teams Biochemistry Teacher Relationship Specialty Start Date End Date Bea Lacey [address] [place], [place] [address] [address] PCP - General Family Medicine 12/26/23
--- OUTSIDE RECORDS SUMMARY | 2024-09-06 09:35 | XMS_ITS | Encounter Summary ---
Author Organization [employer] Address [address] [facility] 7[address] [place] [address] Care Team Providers Care Warper Creeler Name Role Phone Bea Lacey MD Primary Care Provider [phone] Mariely Dennison PharmD Unavailable [phone] Reason for Visit * Reason Onset Date Comments Results 03/30/2023 Encounter Details Date Type Department Care Team ([facility] st Contact Info) Description 03/30/2023 Telephone [facility] [address] [place], [place] [phone] Bea Lacey MD [address] [place], [place] [phone] Results Social History Tobacco Use Types Packs/Day [...] Description 09/18/2024 9:15 AM EDT Office Visit [facility] MED & PEDS [address] [place] [address] Bea Lacey MD [address] [place] [address] 10/08/2024 10:00 AM EDT Medication Management [facility] [address] [place] [address] Mariely Dennison PharmD [address] [place] [address] 12/14/2024 2:00 PM EDT Office Visit [facility] ADULT DENTAL [address] [place] [address] Daniele Barlow documented as of this encounter Visit Diagnoses Not on filedocumented in this encounter Additional Health Concerns Assessment Noted Time PHQ-9 Depression Total Score: 7 05/29/19 23 10:45 AM EDT documented as of this encounter Care Teams Warper Creeler Relationship Specialty Start Date End Date Bea Lacey MD [address] [place] [address] PCP - General Family Medicine 09/22/22 Mariely Dennison PharmD [address] [place] [address] Pharmacist Internal Medicine 07/03/24 documented as of this encounter
--- OUTSIDE RECORDS SUMMARY | 2024-09-06 09:36 | XMS_ITS | Clinical Summary ---
Author Organization [facility] Address [address] [address] Phone Care Team Providers Care Studio Technician Video Operator Name Role Phone Lula Lacey MD Primary Care Provider [phone] Allergies Active Allergy Reactions Criticality Noted Date [...] and 250 mg before bedtime. Active Methylnaltrexone Patton (Relistor) 150 MG tablet Take by mouth [...] Office Communication [facility] [address] [phone] Mechelle Romo 07/11/2024 2:30 PM EDT Office Visit [facility] [address] [phone] Jeri Keller ARNP Stage 3a chronic kidney disease (HCC) (Primary Dx); Hypertension; Nephrolithiasis; Right flank pain 07/06/2024 Orders Only [facility] [address] [phone] Get Galo MD 07/06/2024 Orders Only [facility] [address] [phone] Get Galo MD from Last 3 Months [...] Office Visit [facility] [address] [phone] Get Galo MD [address] [phone] 01/30/2025 1:00 PM EST Office Visit [facility] [address] [phone] Get Galo MD [address] [phone] Health Maintenance Due Date Last Done Comments Colorectal Cancer Screening: Annual FOBT 2001 Colorectal Cancer Screening: Colonoscopy 2001 Colorectal Cancer Screening: Sigmoidoscopy 2001 Hepatitis B Vaccine (1 of 3 - Risk 3-dose series) 2012 10/08/2016, 06/15/2016, 02/12/2016 Diabetes: Ophthalmology Exam 03/23/2020 Diabetes: Pedal Pulse Checked 03/23/2020 Diabetes: Sensory Foot Exam 03/23/2020 Diabetes: Visual Foot Exam 03/23/2020 Diabetes: Hemoglobin A1C 08/31/2024 025, 11/10/2023, 09/21/2018 Influenza Vaccine (#1) 2024 4, 12/03/2021, 12/15/2020, Additional history exists Pneumococcal Vaccine: 50+ Years Completed 09/15/2020, 10/26/2018, 04/26/2012, Additional history exists Pneumococcal Vaccine: Peds ( 0 to 5 Years) and At-Risk Patients (6 [...] None seen 0 - 5 /hpf [facility] RBC, Urine 0-2 0 - 2 /hpf [facility] Squamous Epithelial, Urine None seen 0 - 10 /hpf [facility] Casts None seen None seen /lpf [facility] Bacteria, Urine None seen None seen/Few [facility] 07/06/2024 1:50 PM EDT 07/06/2024 us Get Galo MD LAB MICROBIOLOGY - GENERAL OR DERABLES Final Result [facility] [address] [place] [address] * Protein, Total, Random Urine w/Creatinine (Protein/Creat Ratio) (07/06/2024 1:50 PM EDT) Creatinine, Ur 59.6 Not Estab. mg/dL [facility] Protein, Ur 7.3 Not Estab. mg/dL [facility] Urine Protein/Creatin ine Ratio 122 0 - 200 mg/g creat [facility] 07/06/2024 1:50 PM EDT 07/06/2024 Get Galo MD LAB URINE ORDERABLES Final Re sult Performing Organization Address City/[facility]/ZIP Co de Phone Number [facility] [address] [place] [address] * Urine Albumin / Creatinine Ratio (07/06/2024 1:50 PM EDT) Albumin, Urine 3.8 Not Estab. ug/mL [facility] Albumin/Creatin ine Ratio 6 0 - 29 mg/g creat [facility] Comment: Normal: 0 - 29 Moderately increased: 30 - 300 Severely increased: >300 07/06/2024 1:50 PM EDT 07/06/2024 Get Galo MD LAB URINE ORDERABLES Final Re sult Performing Organization Address [facility] Co de Phone Number [facility] [address] [place] [address] * (ABNORMAL) Urinalysis with microscopic (07/06/2024 1:50 PM EDT) Specific Thomson, Urine 1.018 1.005 - 1.030 [facility] [phone] pH Urine 6.0 5.0 - 7.5 [facility] [phone] Color, Urine Yellow Yellow [facility] [phone] Appearance Urine Clear Clear [facility] WBC Esterase Urine 1+(A) Negative [facility] [phone] Protein, Ur Negative Negative/Tra ce [facility] [phone] Glucose, Ur 3+(A) Negative [facility] Ketones, Urine Negative Negative [facility] [place] Blood Urine Negative Negative [facility] [phone] Bilirubin Urine Negative Negative [facility] [place] Urobilinogen Urine 0.2 0.2 - 1.0 mg/dL [facility] [phone] Nitrite, Urine Negative Negative [facility] Microscopic Examination See below: [facility] Comment:Microscopic was casa cated and was performed. 07/06/2024 1:50 PM EDT 07/06/2024 us Get Galo MD LAB URINE ORDERABLES Final Re sult [facility] [address] [place] [address] * (ABNORMAL) Renal Function Panel (07/06/2024 10:47 AM EDT) Glucose 148(H) 70 - 99 mg/dL [facility] BUN 20 8 - 27 mg/dL [facility] Creatinine 1.09 0.76 - 1.27 mg/dL [facility] eGFR CKD-EPI CR 2020 72 >59 mL/min/1.7 3 [facility] BUN/Creatinine Ratio 18 10 - 24 [facility] Sodium 144 134 - 144 mmol/L [facility] Potassium 4.3 3.5 - 5.2 mmol/L [facility] Chloride 103 96 - 106 mmol/L [facility] Bicarbonate (CO2) 24 20 - 29 mmol/L [facility] Calcium 9.3 8.6 - 10.2 mg/dL [facility] Albumin 4.4 3.8 - 4.8 g/dL [facility] Phosphorus 2.9 2.8 - 4.1 mg/dL [facility] 07/06/2024 10:4 7 AM EDT 07/06/2024 us Get Galo MD LAB BLOOD ORDERABLES Final Re sult [facility] [address] [place] [address] * (ABNORMAL) Blood Panel (09/21/2018 12:00 AM [...] ug/dl RTAMA 09/21/2018 us Rtama Conversion LAB [id number] LICITED RESULTS Final Result [facility]AMA from Last 3 Months or Most Recently Relevant to Health Maintenance Insurance Medicare Medicaid [place] Medicare Medicaid [place] Care Teams Studio Technician Video Operator Relationship Specialty Start Date End Date Lula Lacey MD [address] [place] [address] PCP - General Internal Medicine 01/25/24
== END 2024-09-06 10:04 | disposition home or self-care (01) ==
LOC: HO.PMC 09:20
PROVIDERS: PCP Student in an Organized Health Care Education/Training Program; Visit Provider Anesthesiology
DX: M53.3 Sacrococcygeal disorders, not elsewhere classified (principal); G89.29 Other chronic pain; M46.1 Sacroiliitis, not elsewhere classified; M54.51 Vertebrogenic low back pain; G89.4 Chronic pain syndrome; E11.65 Type 2 diabetes mellitus with hyperglycemia
CPT/HCPCS: 99213

== ENCOUNTER → 2024-09-06 09:19 | Outpatient (BNVA) | payer MEDICARE, MEDICAID, SELFPAY | PROVIDERS: PCP Student in an Organized Health Care Education/Training Program; Visit Provider Anesthesiology | DX: M53.3 Sacrococcygeal disorders, not elsewhere classified (principal); M46.1 Sacroiliitis, not elsewhere classified; M54.51 Vertebrogenic low back pain; E11.65 Type 2 diabetes mellitus with hyperglycemia; G89.29 Other chronic pain | CPT/HCPCS: 99212 ==

== ENCOUNTER 2024-10-16 10:23 | Outpatient (AMB) | payer MEDICARE, MEDICAID, SELFPAY ==
--- OUTSIDE RECORDS SUMMARY | 2024-10-11 23:59 | XMS_ITS | Continuity of Care Document ---
Author Organization [facility] Address [address] [place] [address] [address], [address] [place] [address]- Care Team Providers Care Senior Lead Software Engineer Name Role Phone Deepthi SOTOMAYOR, Bea Mclean Primary Care Physician [phone] Encounter [facility] Date(s): 10/04/24 - 10/11/24 [facility] [address] [place] [address] Drive [address] [place], [place] [address] Attending Physician: Darci Payan MD Referring Physician: Markus Roberts MD Encounter Type: Office Visit Allergies, Adverse Reactions, Alerts No Known Medication Allergies Substance Criticality Severity Reaction Reaction Severity Status Grass Unable to assess criticality Intermittent watery eyes/runny nose Active Immunizations Given and Recorded Vaccine Date Status Refusal Reason SARS-CoV-2(COVID-19)mRNA-LNP vac([id number]) 11/01/23 Recorded SARS-CoV-2(COVID-19)mRNA-LNP vac([id number]) 11/18/22 Recorded influenza virus vaccine, inactivated 10/31/23 Jero rded influenza virus vaccine, inactivated 11/09/22 Jero rded influenza virus vaccine, inactivated 12/03/21 Jero rded influenza virus vaccine, inactivated 12/15/20 Jero rded influenza virus vaccine, inactivated 12/11/19 Jero rded influenza virus vaccine, inactivated 11/02/18 Jero rded influenza virus vaccine, inactivated 10/15/18 Jero rded influenza virus vaccine, inactivated 12/28/16 Jero rded influenza virus vaccine, inactivated 02/12/16 Jero rded influenza virus vaccine, inactivated 11/25/14 Jero rded influenza virus vaccine, inactivated 11/29/13 Jero rded influenza virus vaccine, inactivated 04/26/12 Give n influenza virus vaccine, inactivated 11/13/10 Jero rded influenza virus vaccine, inactivated 10/25/08 Jero rded influenza virus vaccine, inactivated 03/01/08 Jero rded influenza virus vaccine, inactivated 01/07/06 Jero rded [id number] 12y+ bivalent booster vax 12/08/21 Recorded SARS-CoV-2 (COVID-19) mRNA BNT-162b2 vac 12/24/20 Recorded tetanus-diphtheria toxoids (Td) 09/15/20 Recorded tetanus-diphtheria toxoids (Td) 09/29/05 Recorded pneumococcal 23-valent vaccine 09/15/20 Recorded pneumococcal 23-valent vaccine 04/26/12 Given pneumococcal 23-valent vaccine 09/29/05 Recorded SARS-CoV-2 (COVID-19) mRNA-1273 vaccine 05/27/20 R ecorded SARS-CoV-2 (COVID-19) mRNA-1273 vaccine 04/29/20 R ecorded zoster vaccine, inactivated 01/31/19 Recorded zoster vaccine, inactivated 11/30/18 Recorded pneumococcal 13-valent vaccine 10/26/18 Recorded hepatitis B adult vaccine 10/08/16 Recorded hepatitis B adult vaccine 06/15/16 Recorded hepatitis B adult vaccine 02/12/16 Recorded Zoster Vaccine Live 06/17/14 Recorded tetanus/diphtheria/pertussis, acel(Tdap) 08/08/09 Recorded Pneumococcal Vaccine (oldterm) 1 01/01/06 Given 1Result Comment: lot # [id number] EXP 08/20/06 PT INFO 09/04/04 Medications Amitiza 8 mcg oral capsule 1 capsule = 8 mcg, By Mouth, 2 times a day, # 60 capsule, 3 Refills, Maintenance, 09/10/24 11:25:00 AM EDT, Capsule, [facility], Partial fill upon patient request if [...] Mouth, 3 times a day, PRN Anxiety, # 12 each, 0 Refills, Maintenance, 09/26/24 10:32:00 AM EDT, Tablet, Partial fill upon patient request if the prescription is for a schedule II opioid drug. Start Date: 09/26/24 Stop Date: 09/30/24 Status: Ordered Quantity: 12.0 Unit: each Repeat number: 1 Compression- Lower [...] 11 Refills, Maintenance, 12/13/23 12:27:00 PM EDT, [facility], Partial fill upon patient request if [...] 9:46:00 AM EDT, Route to Pharmacy Electronically, [facility], Partial fill upon patient request if [...] 3 Refills, Maintenance, 02/03/24 8:19:00 AM EST, [facility], 172.72, cm, 01/30/24 9:29:00 EST, Height, [...] Date: 03/10/22 Status: Ordered Repeat number: 1 gabapentin 300 mg oral capsule 300 mg, 1, capsule, By Mouth, 3 times a day, # 270 capsule, Refills 0, Maintenance, 08/21/24 10:07:00AM EDT, Partial fill upon patient request if the prescription is for a schedule II opioid drug. Start Date: 08/21/24 Status: Ordered Quantity: 270.0 Unit: capsule Repeat number: 1 hydrOXYzine hydrochloride 25 mg oral tablet 1 [...] 3 Refills, Maintenance, 05/01/24 10:25:00 AM EDT, [facility], 172, cm, 05/01/24 8:22:00 EDT, Height, 88.5, kg, 04/05/24 8:14:00 EST,Dry Weight Start Date: 05/01/24 Status: Ordered Quantity: 180.0 Unit: tablet Repeat number: 1 Linzess 72 mcg oral capsule 1 capsule = 72 mcg, By Mouth, Daily, do not crush or chew 30 minutes before breakfast with large glass of water, # 30 capsule, 0 Refills, Maintenance, 09/14/24 3:56:00 PM EDT, Capsule, [facility], Partial fill upon patient request if the prescription is for a schedule II opioid drug., 173, cm, 09/11/24 11:39:00 EDT, Height, 89.6, kg, 08/29/24 7:42:00 EDT, Dry Weight Start Date: 09/14/24 Stop Date: 10/14/24 Status: Ordered Quantity: 30.0 Unit: capsule Repeat number: 1 Indications: Constipation, unspecified; lisinopril 10 mg oral tablet 10 mg, 1, tablet, By Mouth, Daily, # 90 tablet, Refills 4, Tot. Refills 4, Maintenance, 12/12/23 2:14:00 PM EDT, Route to Pharmacy Electronically, [facility], Partial fill upon patient request if [...] 2:42:00 PM EDT, Route to Pharmacy Electronically, [facility], Partial fill upon patient request if [...] 8:09:00 AM EDT, Route to Pharmacy Electronically, [facility], 172.72, cm, 07/25/24 14:48:00 EDT, Height, [...] Informant AAA (abdominal aortic aneurysm) Confirmed Active Anemia of chronic illness Confirmed Active Aortic stenosis Confirmed Active Atherosclerosis of artery Confirmed Active Chronic back pain Confirmed Active Obesity (BMI 30-39.9) Confirmed Active CAD - Coronary artery disease, 1 Confirmed Active Cardiomyopathy Confirmed Active Central sleep apnea syndrome Confirmed Active Old CVA (cerebral infarction) Confirmed 1996 Active Chronic atrial fibrillation Confirmed Active Chronic constipation Confirmed Active Chronic insomnia Confirmed Active CKD (chronic kidney disease) stage 3 Confirmed Active Depression 2 Confirmed Active Diverticulitis Confirmed Active History of Drug use, Cocaine Confirmed Active Anticoagulated Confirmed Active Esophageal spasm Confirmed Active Essential tremor Confirmed Active GERD (gastroesophageal reflux disease) Confirmed Active Chronic heart failure with preserved ejection fraction Confirmed Active Hyperlipidemia Confirmed Active Hypertension Confirmed Active Left ventricular systolic dysfunction Confirmed [...] Confirmed Active Right heart failure Confirmed Active 1CABG with multiple stents in 1988 2history of suicidal ideation Social History Social History Type Response Smoking Status Former smoker; Tobac co user in household: No; Other: pt states he quit smoking 1988; entered on: 07/14/15 Sex Sex Representation Male (finding) Patient Care team information Care Team Personnel Name: Darci Ayala RN Position: [facility] ED RN W/OE and Tasks Member Role: Primary Care Nurse Name: Niharika Reza RN Position: [facility] SN RN Member Role: Primary Care Nurse Name: Veronica Kapoor RN Position: [facility] RN Member Role: Primary Care Nurse Name: Paula Garcia RN Position: [facility] RN Member Role: Primary Care Nurse Name: Jocelyn Villanueva RN Position: [facility] SN RN Member Role: Primary Care Nurse Name: Roseann Sullivan RN Position: [facility] RN Member Role: Primary Care Nurse Name: Marisela Salas RN Position: [facility] RN Member Role: Primary Care Nurse Name: Casimiro Alarcon RN Position: [facility] RN Member Role: Primary Care Nurse Name: Jaxson RNGildardo Position: [facility] RN Member Role: Primary Care Nurse Name: Brenda Orr RN Position: [facility] RN Member Role: Primary Care Nurse Name: Chasidy Woodard RN Position: [facility] RN Member Role: Primary Care Nurse Name: Annalisa Aguilar RN Position: [facility] RN Member Role: Primary Care Nurse Name: Heavenly Sen RN Position: [facility] Bone Crusher Member Role: Primary Care Nurse Name: Nasima Garcia NP Position: Reference Physician Member Role: Primary Care Nurse Address: [address] [place] [address]- [place] Telecom: Name: Bea Lacey MD Position: [facility] Outreach Member Role: PCP Address: [address] [place] [address]- [place] Tele[employer]: Name: Itzel Tirado MD Position: [facility] Cardiology MD Member Role: Lifetime Consulting Physician Address: [address] [facility] [address] [place] [address]- [place] Telecom: Name: Elena Pyle RN Position: [facility] RN Member Role: Primary Care Nurse Name: Lalito Wheeler RN Position: [facility] RN Member Role: Primary Care Nurse Name: Marcia Keller RN Position: [facility] RN Member Role: Primary Care Nurse Name: Beatriz Lawrence RN Position: [facility] SN RN Member Role: Primary Care Nurse Name: Dorothea Fong RN Position: [facility] SN RN Member Role: Primary Care Nurse Name: Get Galo MD Position: [facility] Renal MD Member Role: Lifetime Consulting Physician Address: [address] [facility] [address] [facility] [place] [address]- Telecom: Name: Lucy Bradford RN Position: [facility] RN Member Role: Primary Care Nurse Name: Familia Rivas NP Position: Reference Physician Member Role: Primary Care Nurse Address: [address] [place] [address]- Telecom: Care Team Related Persons Name: JOSE ALBERTO VARGAS Insurance Providers Guarantor name: SHERLY VARGAS Health Plan Information #: 1 Payer: MEDICARE B Payer Identifier: MARVIN Member Number: [id number] Group Number: Subscriber Identifier: [id number] Relationship to Subscriber: self Coverage Type: NA Coverage Verification Date: NA Telecom: NA Address: NA Health Plan Information #: 2 Payer: [employer] Payer Identifier: NA Member Number: [id number] Group Number: Subscriber Identifier: [id number] Relationship to Subscriber: self Coverage Type: MEDICAID Coverage Verification Date: NA Telecom: Address:
--- OUTSIDE RECORDS SUMMARY | 2024-10-14 23:59 | XMS_ITS | Continuity of Care Document ---
Author Organization [facility] Address [address] [facility], 3r d Floor, [address] [place] [address]- Care Team Providers Care Electrical Manager Name Role Phone Bea Lacey MD Primary Care Physician Encounter [facility] Date(s): 09/14/24 - 10/14/24 [facility] [address], [address] [place] [address] Encounter Type: Triage Allergies, Adverse Reactions, Alerts No Known Medication Allergies Substance Criticality Severity Reaction Reaction Severity Status Grass Unable to assess criticality Intermittent watery eyes/runny nose Active Immunizations Given and Recorded Vaccine Date Status Refusal Reason SARS-CoV-2(COVID-19)mRNA-LNP vac([id number]) 11/01/23 Recorded SARS-CoV-2(COVID-19)mRNA-LNP vac([id number]) 11/18/22 Recorded influenza virus vaccine, inactivated 10/31/23 Jero rded influenza virus vaccine, inactivated 11/09/22 Jero rded influenza virus vaccine, inactivated 12/03/21 Jero rded influenza virus vaccine, inactivated 12/15/20 Jero rded influenza virus vaccine, inactivated 12/11/19 Jero rded influenza virus vaccine, inactivated 11/02/18 Jero rded influenza virus vaccine, inactivated 12/05/17 Jero rded influenza virus vaccine, inactivated 12/28/16 [...] influenza virus vaccine, inactivated 01/07/06 Jero rded [id number] 12y+ bivalent booster vax 12/08/21 Recorded SARS-CoV-2 [...] 1 01/01/06 Given 1Result Comment: lot # [id number] EXP 08/20/06 PT INFO 09/04/04 Medications Amitiza 8 mcg oral capsule 1 capsule = 8 mcg, By Mouth, 2 times a day, # 60 capsule, 3 Refills, Maintenance, 09/10/24 11:25:00 AM EDT, Capsule, [facility], Partial fill upon patient request if [...] Maintenance, 12/13/23 12:27:00 PM EDT, [facility], Partial fill upon patient request if [...] 9:46:00 AM EDT, Route to Pharmacy Electronically, [facility], Partial fill upon patient request [...] Maintenance, 02/03/24 8:19:00 AM EST, [facility], 172.72, cm, 01/30/24 9:29:00 EST, Height, [...] Maintenance, 05/01/24 10:25:00 AM EDT, [facility], 172, cm, 05/01/24 8:22:00 EDT, Height, 88.5, kg, 04/05/24 8:14:00 EST,Dry Weight Start Date: 05/01/24 Status: Ordered Quantity: 180.0 Unit: tablet Repeat number: 1 Linzess 72 mcg oral capsule 1 capsule = 72 mcg, By Mouth, Daily, do not crush or chew 30 minutes before breakfast with large glass of water, # 30 capsule, 0 Refills, Maintenance, 09/14/24 3:56:00 PM EDT, Capsule, [facility], Partial fill upon patient [...] EDT, Route to Pharmacy Electronically, [facility], Partial fill upon patient request if [...] EDT, Route to Pharmacy Electronically, [facility], Partial fill upon patient request if [...] EDT, Route to Pharmacy Electronically, [facility], 172.72, cm, 07/25/24 14:48:00 EDT, Height, [...] Team Personnel Name: Darci Ayala RN Position: [facility] ED RN W/OE and Tasks Member Role: Primary Care Nurse Name: Niharika Reza RN Position: [facility] SN RN Member Role: Primary Care Nurse Name: Veronica Kapoor RN Position: [facility] RN Member Role: Primary Care Nurse Name: Paula Garcia RN Position: [facility] RN Member Role: Primary Care Nurse Name: Jocelyn Villanueva RN Position: [facility] SN RN Member Role: Primary Care Nurse Name: Roseann Sullivan RN Position: [facility] RN Member Role: Primary Care Nurse Name: Marisela Salas RN Position: [facility] RN Member Role: Primary Care Nurse Name: Casimiro Alarcon RN Position: [facility] RN Member Role: Primary Care Nurse Name: Gildardo Puri RN Position: [facility] RN Member Role: Primary Care Nurse Name: Brenda Orr RN Position: [facility] RN Member Role: Primary Care Nurse Name: Chasidy Woodard RN Position: [facility] RN Member Role: Primary Care Nurse Name: Annalisa Aguilar RN Position: [facility] RN Member Role: Primary Care Nurse Name: Heavenly Sen RN Position: [facility] Hospital Make Up Operator Member Role: Primary Care Nurse Name: Nasima Garcia NP Position: Reference Physician Member Role: Primary Care Nurse Address: [address] [address]- [place] Telecom: Name: Bea Lacey MD Position: [facility] Outreach Member Role: PCP Address: [address] [place] [address]- [place] Telecom: Name: Itzel Tirado MD Position: [facility] Cardiology MD Member Role: Lifetime Consulting Physician Address: [address] [facility] [address] [place] [address]- [place] Telecom: Name: Elena Pyle RN Position: [facility] RN Member Role: Primary Care Nurse Name: Lalito Wheeler RN Position: [facility] RN Member Role: Primary Care Nurse Name: Marcia Keller RN Position: [facility] RN Member Role: Primary Care Nurse Name: Beatriz Lawrence RN Position: [facility] SN RN Member Role: Primary Care Nurse Name: Dorothea Fong RN Position: [facility] SN RN Member Role: Primary Care Nurse Name: Get Galo MD Position: [facility] Renal MD Member Role: Lifetime Consulting Physician Address: [address] [facility] [address] [facility] [place] [address]- Telecom: Name: Lucy Bradford RN Position: S RN Member Role: Primary Care Nurse Name: Familia Rivas NP Position: Reference Physician Member Role: Primary Care Nurse Address: [address] [place] [address]- Telecom: Care Team Related Persons Name: JOSE ALBERTO VARGAS Insurance Providers Guarantor name: SHERLY VARGAS [facility] Information #: 1 Payer: MEDICARE B Payer Identifier: MARVIN Member Number: [id number] Group Number: Subscriber Identifier: [id number] Relationship to Subscriber: self Coverage Type: NA Coverage Verification Date: NA Telecom: NA Address: Health Plan Information #: 2 [facility] [employer] Payer Identifier: NA Member Number: [id number] Group Number: Subscriber Identifier: [id number] Relationship to Subscriber: self Coverage Type: MEDICAID Coverage Verification Date: NA Telecom: Address:
--- OUTSIDE RECORDS SUMMARY | 2024-10-16 11:05 | XMS_ITS | Encounter Summary ---
Author Organization [facility] Address [address] [facility] [address] [place] [address] Phone Care Team Providers Care General Ledger Accountant Name Role Phone Halle Fontenot MD Primary Care Provider [phone] Encounter Details Date Type Department Care Team (Late st Contact Info) Description 01/27/2024 Procedure Pass [facility] PERIOPERATIVE DEPT [address] [place] [id number] Social History Tobacco Use Types Packs/Day Years Used Date Smoking Tobacco: Never Assessed Education Answer Date Recorded Are you interested in more education? Not on senia e 03/09/2023 Are you concerned about learning? Not on file 03/09/2023 No 03/09/2023 No 03/09/2023 Digital Access Answer Date Recorded No 03/09/2023 No 03/09/2023 Reliable internet access at home? Not on file 03/09/2023 Device with a working camera? Not on file Sex and Gender Information Value Date Recorded Sex Assigned at Not on file Legal Sex Male 2:42 PM EST Gender Identity Not on file Sexual Orientation Not on file documented as of this encounter Plan of Treatment Not on file documented as of this encounter Visit Diagnoses Not on filedocumented in this encounter Care Teams General Ledger Accountant Relationship Specialty Start Date End Date Halle Fontenot MD [address] [place] [address] PCP - General Family Medicine 03/09/23 documented as of this encounter Additional Source Comments The information contained in this document represents components of the legal health record. It is not the complete legal health record.[facility]
--- OUTSIDE RECORDS SUMMARY | 2024-10-16 11:05 | XMS_ITS | Encounter Summary ---
Author Organization [employer] Address [address] [facility] 7t [place] [address] Care Team Providers Care Ticker Installer Name Role Phone Bea Lacey MD Primary Care Provider [phone] Mariely Dennison PharmD Unavailable [phone] Reason for Visit * Reason Comments Med Refill Encounter Details Date Type Department Care Team ([facility] st Contact Info) Description 02/06/2024 Refill [facility] DIABETES/NUTRITION [address] [place], [place] [phone] Bea Lacey MD [address] [place], [place] [phone] Type 2 diabetes mellitus with hyperglycemia, without long-term current use of insulin ([facility]) Social History Tobacco Use Types Packs/Day [...] Care Team (Late st Contact Info) Description 10/17/2024 11:00 AM EDT Office Visit [facility] MED & PEDS [address] [place] [address] Bea Lacey MD [address] [place] [address] 12/14/2024 2:00 PM EDT Office Visit [facility] ADULT DENTAL [address] [place] [address] Daniele Barlow documented as of this encounter Visit Diagnoses Diagnosis Type 2 diabetes mellitus with hyperglycemia, without long-term current use of insulin ([facility]) documented in this encounter Additional Health Concerns Assessment Noted Time PHQ-9 Depression Total Score: 20 024 10:22 AM EDT documented as of this encounter Care Teams Ticker Installer Relationship Specialty Start Date End Date Bea Lacey MD [address] [place] [address] PCP - General Family Medicine 09/22/22 Mariely Dennison PharmD [address] [place] [address] Pharmacist Internal Medicine 07/03/24 [facility] 09/01/24 documented as of this encounter
--- OUTSIDE RECORDS SUMMARY | 2024-10-16 11:05 | XMS_ITS | Encounter Summary ---
Author Organization [facility] [employer] Address [address] [facility] 7t [place] [address] Care Team Providers Care Steam Setter Name Role Phone Bea Lacey MD Primary Care Provider [phone] Mariely Dennison PharmD Unavailable [phone] Reason for Visit * Reason Onset Date Comments Nurse Triage 02/08/2024 Encounter Details Date Type Department Care Team ([facility] st Contact Info) Description 02/08/2024 Telephone [facility] MEDICINE [address] [place], [place] [phone] Bea Lacey MD [address] [place], [place] [phone] Nurse Triage Social History Tobacco Use Types [...] Description 10/17/2024 11:00 AM EDT Office Visit [facility] MED & PEDS [address] [place] [address] Bea Lacey MD [address] [place] [address] 12/14/2024 2:00 PM EDT Office Visit [facility] ADULT DENTAL [address] [place] [address] Daniele Barlow documented as of this encounter Visit Diagnoses Not on filedocumented in this encounter Additional Health Concerns Assessment Noted Time PHQ-9 Depression Total Score: 20 024 10:22 AM EDT documented as of this encounter Care Teams Steam Setter Relationship Specialty Start Date End Date Bea Lacey MD [address] [place] [address] PCP - General Family Medicine 09/22/22 Mariely Dennison PharmD [address] [place] [address] Pharmacist Internal Medicine 07/03/24 [facility] 09/01/24 documented as of this encounter
--- OUTSIDE RECORDS SUMMARY | 2024-10-16 11:05 | XMS_ITS | Encounter Summary ---
Author Organization [employer] Address [address] [facility] 7t [place] [address] Care Team Providers Care Laborer Concrete Paving Name Role Phone Bea Lacey MD Primary Care Provider [phone] Mariely Dennison PharmD Unavailable Reason for Visit * Reason Onset Date Comments Nurse Triage 04/03/2024 Encounter Details Date Type Department Care Team ([facility] st Contact Info) Description 04/03/2024 Telephone [facility] MEDICINE [address] [place], [place] [phone] Bea Lacey MD [address] [place], [place] [phone] Nurse Triage Social History Tobacco Use Types [...] and is followed by Pain management at [facility]. Has not notified that Dept at this time but agrees to do so. Patient reports that he feels lumps under the skin and that when massaged makes them feel better. Patient previously advised by Pain Management to use topical Salon Pas patches to area. Patient wants to see PCP but is unable to book appt at time of call pablo ding a new brain surgery on 04/05/24 at [facility]. Disposition reviewed and patient in agreement with plan. Will call to follow with appt. scheduling when recovered from procedure at [facility]. Patient requests that PCP be updated. Forwarded to PCP as patient requested. Protocol Used: Chest Pain (Adult) Protocol-Based Disposition: See in Office or Video Visit Today Override (Final) Disposition: Refer to Specialist Override Reason: Caller refused suggested disposition Override Notes: Patient followed by [facility] Pain Management but wants PCP updated Video visit not offered Positive Triage Question: * All other patients with chest pain (Exception: Fleeting chest pain lasting a few seconds.) * All higher-acuity triage questions were negative Care Advice Discussed: * Reasons To Call Back - You become worse * Telephone Encounter - Terri Steeljesumicah JohansenJose Armando - 04/03/2024 12:08 PM EST Symptom: Pain - Severe (Right side under rib), Skin painful to touch. Outcome: Schedule an urgent appointment (within 1 hour) or talk to a nurse or provider soon Reason: Caller denied all higher acuity questions The caller accepted this outcome. [phone] documented in this encounter Plan of Treatment Upcoming Encounters Date Type Department Care Team (Late st Contact Info) Description 10/17/2024 11:00 AM EDT Office Visit [facility] MED & PEDS [address] [place] [address] Bea Lacey MD [address] [place] [address] 12/14/2024 2:00 PM EDT Office Visit [facility] ADULT DENTAL [address] [place] [address] Daniele Barlow documented as of this encounter Visit Diagnoses Not on filedocumented in this encounter Additional Health Concerns Assessment Noted Time PHQ-9 Depression Total Score: 20 024 10:22 AM EDT documented as of this encounter Care Teams Laborer Concrete Paving Relationship Specialty Start Date End Date Bea Lacey MD [address] [place] [address] PCP - General Family Medicine 09/22/22 Mariely Dennison PharmD [address] [place] [address] Pharmacist Internal Medicine 07[facility]03[facility] documented as of this encounter
--- OUTSIDE RECORDS SUMMARY | 2024-10-16 11:05 | XMS_ITS | Clinical Summary ---
Author Organization [facility] Address [address] [place] [address] Phone Care Team Providers Care Arborist Representative Name Role Phone Halle Fontenot MD Primary Care Provider Social History Tobacco Use Types Packs/Day Years [...] on file Sexual Orientation Not on file Plan of Treatment Health Maintenance Due Date Last Done Comments DEPRESSION SCREENING 1964 SMOKING Hx and SMOKELESS TOBACCO SCREENING 1965 HEPATITIS C SCREENING 1970 COLOGUARD 1997 COLONOSCOPY 1997 COLORECTAL CANCER SCREENING 1997 FIT TEST 1997 FOBT 1997 SIGMOIDOSCOPY 1997 VIRTUAL COLONOSCOPY 1997 ZOSTER VACCINES (1 of 2) 2002 Adult Td,Tdap Booster 08/09/2019 08/08/2009 PNEUMOCOCCAL VACCINES (50+ years) (2 of 2 - PCV) 09/15/2021 09/15/2020, 04/26/2012, 01/01/2006, Additional history exists COVID-19 VACCINE (2023- season) 2023 INFLUENZA VACCINE (#1) 2024 RSV VACCINE (1 - 1-dose 75+ series) 05/01/2027 LIPID PANEL 04/12/2028 04/12/2023 HEPATITIS A VACCINES Aged Out No long er eligible based on patient's age to complete this topic HIB VACCINES Aged Out No longer eligi ble based on patient's age to complete this topic MENINGOCOCCAL VACCINES (ACWY) Aged Out No longer eligible based on patient's age to complete this topic MENINGOCOCCAL VACCINES (B) Aged Out N o longer eligible based on patient's age to complete this topic Medical Devices Not on file Insurance [facility] MEDICARE PART A & B [facility] MEDIC[facility] A & B [facility] MEDIC[facility] PART A & B [facility] MEDIC[facility] PART A & B [facility] MEDICARE PART A & B [place] MED[place]ARE PART A & B Care Teams Arborist Representative Relationship Specialty Start Date End Date Halle Fontenot MD [address] [place] [address] PCP - General Family Medicine 03/09/23 Additional Source Comments The information contained in this document represents components of the legal health record. It is not the complete legal health record.[facility]
--- OUTSIDE RECORDS SUMMARY | 2024-10-16 11:05 | XMS_ITS | Encounter Summary ---
Author Organization [employer] Address [address] [facility] 7t [place] [address] Care Team Providers Care Special Projects Manager Name Role Phone Gordon Mills MD Primary Care Prov ider Bea Lacey MD Primary Care Provider [phone] Mariely Dennison PharmD Unavailable [phone] Encounter Details Date Type Department Care Team (Latest Contact Info) Description 08/14/2020 Abstract [facility] CONVERSIONS Dental, Provider, DDS Social History [...] Description 10/17/2024 11:00 AM EDT Office Visit [facility] MED & PEDS [address] [place] [address] Bea Lacey MD [address] [place] [address] 12/14/2024 2:00 PM EDT Office Visit [facility] ADULT DENTAL [address] [place] [address] Daniele Barlow documented as of this encounter Visit Diagnoses Not on filedocumented in this encounter Care Teams Special Projects Manager Relationship Specialty Start Date End Date Gordon Mills MD [address] [place] [address] PCP - General Internal Medicine 07/12/19 09/21/22 Bea Lacey MD [address] [place] [address] PCP - General Family Medicine 09/22/22 Mariely Dennison PharmD [address] [place] [address] Pharmacist Internal Medicine 07/03[facility]24 [facility] documented as of this encounter
--- OUTSIDE RECORDS SUMMARY | 2024-10-16 11:05 | XMS_ITS | Clinical Summary ---
Author Organization [employer] Address [address] [facility] [address] [place] [address] Care Team Providers Care Lead Performance Support Analyst Name Role Phone Bea Lacey MD Primary Care Provider [phone] Mariely Dennison PharmD Unavailable [phone] Allergies Active Allergy Reactions Criticality Noted Date [...] NEEDED FOR ALLERGIES 48 g 4 Active esomeprazole (NexIUM) [address] capsule TAKE ONE CAPSULE TWICE DAILY IN THE MORNING AND AT BEDTIME Active Methylnaltrexone [place] (Relistor) 150 MG tablet Active Narcan 4 MG/0.1ML nasal spray FOR SUSPECTED OPIOID OVERDOSE. SPRAY 0.1mL IN ONE NOSTRIL. REPEAT IN ALTERNATE NOSTRIL EVERY 2-3 MINUTES IF NEEDED. SEEK MEDICAL ATTENTION IMMEDIATELY EVEN IF PT RESPONDS. Active glucose 4 g chewable tablet Chew [...] MORNING AND EVENING 60 tablet 11 Active Blood Glucose Monitoring Suppl ([employer] Lite) w/Device kit TEST BLOOD SUGAR DAILY 1 kit Active FreeStyle lancets 1 each by Other route Once per day. 100 each 12 025 2025 Active polyethylene glycol, PEG, 3350 (MiraLax) 17 GM/SCOOP powder STIR 17GM INTO 8 OUNCES OF WATER OR JUICE AND DRINK DAILY NEEDED/ DIRECTED. 510 g 2 025 Active cholecalciferol (Vitamin D-3) 25 MCG tabletIndications :Vitamin D deficiency TAKE ONE TABLET EVERY MORNING 90 tablet 3 025 Active primidone (Mysoline) 250 MG tabletIndications :Essential tremor TAKE TWO TABLETS TWICE DAILY IN THE MORNING AND AT BEDTIME 360 tablet 4 Active Aspirin Adult Low Strength 81 MG EC tablet TAKE ONE TABLET EVERY MORNING 90 tablet 4 025 Active cetirizine (ZyrTEC) 10 MG tabletIndications :Chronic allergic rhinitis TAKE ONE TABLET DAILY AT NOON 30 tablet 11 Active famotidine (Pepcid) 40 MG tablet TAKE ONE TABLET EVERY NIGHT AT BEDTIME 90 tablet 1 025 Active chlorhexidine (Peridex) 0.12 % solution Swish 15 mL morning and night for 1 minute. Spit, do not swallow. Do not eat or drink for 30 minutes following use. 473 mL 025 Active sertraline (Zoloft) 100 MG tablet TAKE 1&1/2 TABLETS AT BEDTIME Active Trulance tablet tablet Take 1 tablet by mouth Once per day. Active lisinopril 10 MG tablet TAKE ONE TABLET EVERY EVENING Active eplerenone (Inspra) 25 MG tablet TAKE ONE TABLET DAILY AT NOON Active Farxiga 10 MG Take 10 mg by mouth in the morning. Active Continuous Glucose Sensor (FreeStyle Verito 3 Plus Sensor) mis 1 each every 15 days. 2 each Active glucose blood (FreeStyle Precision Bon Test) test strip Test blood sugar up to 3 times daily as directed 100 each Active traZODone (Desyrel) 50 MG tablet Take 50 mg by mouth. Active hydrOXYzine HCl (Atarax) 25 MG tablet TAKE ONE TABLET TWICE DAILY NEEDED FOR ANXIETY 06/02/2 025 Active cloNIDine (Catapres) 0.1 MG tablet Refills 0, Maintenance, 07/25/24 2:55:00 PM EDT, Partial fill upon patient request if the prescription is for a schedule II opioid drug. 025 Active pilocarpine (Salagen) 5 MG tabletIndications :Gastroesophageal reflux disease without esophagitis TAKE ONE TABLET IN THE MORNING AND EVENING 60 tablet 3 025 Active hydrOXYzine pamoate (Vistaril) 25 MG capsuleIndication s:Anxiety TAKE ONE CAPSULE IN THE MORNING AND EVENING NEEDED FOR ANXIETY 60 capsule 3 025 Active docusate sodium (Colace) 100 MG capsuleIndication s:Chronic idiopathic constipation TAKE ONE CAPSULE TWICE DAILY IN THE MORNING AND AT BEDTIME 60 capsule 3 025 Active baclofen (Lioresal) 20 MG tabletIndications :Muscle spasm TAKE ONE TABLET AT NOON, EVENING, AND BEDTIME 90 tablet 1 025 Active rosuvastatin (Crestor) 40 MG tabletIndications :Mixed hyperlipidemia TAKE ONE TABLET EVERY NIGHT AT BEDTIME 30 tablet 5 025 Active sucralfate (Carafate) 1 g tabletIndications :Gastroesophageal reflux disease without esophagitis TAKE ONE TABLET TWICE DAILY IN THE MORNING AND AT BEDTIME ON AN EMPTY STOMACH 60 tablet 1 025 Active clonazePAM (KlonoPIN) 0.5 MG tabletIndications :Essential tremor TAKE ONE TABLET THREE TIME DAILY IN THE MORNING, AT NOON, AND IN THE EVENING 90 tablet 1 025 Active gabapentin (Neurontin) 300 MG capsule TAKE ONE CAPSULE THREE TIMES DAILY IN THE MORNING, EVENING AND BEDTIME 90 capsule 1 025 Active rosuvastatin (Crestor) 40 MG tabletIndications :Mixed hyperlipidemia TAKE ONE TABLET EVERY NIGHT AT BEDTIME 30 tablet 5 025 2024 Discontinued sucralfate (Carafate) 1 g tabletIndications :Gastroesophageal reflux disease without esophagitis TAKE ONE TABLET TWICE DAILY IN THE MORNING AND AT BEDTIME ON AN EMPTY STOMACH 60 tablet 1 025 2024 Discontinued baclofen (Lioresal) 20 MG tabletIndications :Muscle spasm TAKE ONE TABLET AT NOON, EVENING, AND BEDTIME 90 tablet 1 025 2024 Discontinued clonazePAM (KlonoPIN) 0.5 MG tabletIndications :Essential tremor TAKE ONE TABLET THREE TIME DAILY IN THE MORNING, AT NOON, AND IN THE EVENING 90 tablet 1 025 2024 Discontinued gabapentin (Neurontin) 300 MG capsule Take 1 capsule (300 mg) by mouth 3 times daily. 90 capsule 1 025 2024 Discontinued(R eorder (will not trigger notification to Pharmacy)) Active Problems Problem Noted Date Diagnosed Date Peripheral polyneuropathy 08/15/2024 Assessment & Plan (08/15/2024 9:37 AM EDT): Patient reports burning sensations and pain on skin contact, consistent with neuropathic pain. Previously diagnosed by neurologist Dr. Lacey. Patient tried capsaicin, which caused burning and discomfort. Patient had a pain pump with an opioid, which was removed due to daily vomiting at 11:30. Pain persists but is less severe after pump removal. Patient expresses interest in gabapentin based on research and anecdotal evidence from a friend. Plan: - Discontinue capsaicin - Initiate gabapentin 300 mg PO TID PRN - Start with 300 mg at bedtime - Medication lasts approximately 8 hours - To be included in patient's medbox for next month - Follow-up appointment scheduled for September 05, 2024, at 10:45 AM (patient to arrive at 10:30 AM) to assess gabapentin efficacy - Maintain scheduled phone call appointment with Dr. Lacey in 3 months NAFLD (nonalcoholic fatty liver disease) Pancreatitis 08/01/2024 Recurrent biliary colic 08/01/2024 S/P laparoscopic sleeve gastrectomy 08/01/2024 History of endovascular sten t graft for abdominal aortic aneurysm (AAA) 07/18/2024 Acute right flank pain 05/03/2023 Assessment & [...] to surgery has appointment next week at [place]. 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 Resolved Problems Problem Noted Date Diagnosed Date Resolved Date Benzodiazepine dependence 01/28/2022 Continuous opioid dependence 01/28/2022 08/05/2022 Obstructive sleep apnea syndrome 01/28/2022 06/15/2024 Encounters Date Type Department Care Team Description 10/08/2024 Telephone [facility] [address] [place] [address] Bea Lacey MD Med reconciliation 10/08/2024 Telephone [facility] [address] [place] [address] Bea Lacey MD Appointment Request 10/05/2024 Telephone [facility] [address] [place] [address] Bea Lacey MD fyi 10/03/2024 Patient Outreach [facility] [address] [place] [address] Bea Lacey MD Transition Of Care (Tcm) (HDF scheduled. ) 09/18/2024 9:15 AM EDT Office Visit [facility] [address] [place] [address] Bea Lacey MD Benign hypertension (Primary Dx); Type 2 diabetes mellitus with hyperglycemia, without long-term current use of insulin ([facility]); Essential tremor; Peripheral polyneuropathy 09/18/2024 Travel 09/17/2024 Refill [facility] [address] [place] [address] Gordon Mills MD Essential tremor 09/17/2024 Refill [facility] [address] [place] [address] Dina Gillette MD 09/17/2024 Refill [facility] [address] [place] [address] Bea Lacey MD Muscle spasm; Mixed hyperlipidemia; Gastroesophageal reflux disease without esophagitis 09/12/[address] [address] Bea Lacey MD Fyi 09/11/2024 Patient Outreach [address] [address] Bea Lacey MD Pre-visit Planning (SDOH screening negative and Tobacco screening negative) 09/03/2024 Telephone [facility] [address] [place] [address] Bea Lacey MD Durable Medical Equipment 08/30/[address] [address] Bea Lacey MD FYI 08/23/2024 Refill [facility] [address] [place] [address] Bea Lacey MD Gastroesophageal reflux disease without esophagitis; Anxiety; Chronic idiopathic constipation 08/21/[address] [address] Bea Lacey MD Fax documentation 08/17/[address] [address] Bea Lacey MD No Show 08/16/2024 Telephone [facility] [address] [place] [address] Bea Lacey MD Sick onsite appoint. 08/06/2024 1:00 PM EDT Office Visit [facility] [address] [place] [address] Sebastián Quintero DDS Dental abscess (Primary Dx) 08/06/2024 Travel 08/01/2024 9:00 AM EDT Office Visit [facility] [address] [place] [address] Dina Gillette MD Peripheral polyneuropathy (Primary Dx); Type 2 diabetes mellitus with hyperglycemia, without long-term current use of insulin ([facility]) 08/01/2024 Travel 07/31/[address] [address] Bea Lacey MD Nurse Triage 07/28/2024 Refill [facility] [address] [place] [address] Bea Lacey MD Essential tremor 07/26/2024 9:30 AM EDT Office Visit [facility] [address] [place] [address] Bea Lacey MD Benign hypertension (Primary Dx); Type 2 diabetes mellitus with hyperglycemia, without long-term current use of insulin ([facility]); Essential tremor 07/26/2024 Refill [facility] [address] [place] [address] Bea Lacey MD Gastroesophageal reflux disease without esophagitis; Muscle spasm 07/26/2024 Travel 07/25/2024 Orders Only [facility] [address] [place], [place] [phone] Paula Nichols, CHRISTINA 07/20/2024 Refill [facility] [address] [place], [place] [phone] Martin Gordon Rocha MD Type 2 diabetes mellitus with hyperglycemia ([facility]) 07/18/2024 Orders Only [facility] [address] [place] [phone] Provider, MD Tia from Last 3 Months Immunizations Immunization Administration [...] Answer Date Recorded Patient Health Questionnaire-9 Score 9 09/18/2024 Patient Health Questionnaire-9 Score 9 09/18/2024 Last PHQ-9: Questionnaire Data Not on file 0 09/18/2024 Housing Stability Answer Date Recorded What is your housing situation today? I have zoe abreu 09/11/[address] you li ve. Do you have problems with any of the following? None of the above 09/11/2024 Food Insecurity Answer Date Recorded Within the past 12 months, y ou worried that your food would run out before you got money to buy more: Never True 09/11/2024 Within the past 12 months,th e food you bought just didn't last and you didn't have enough money to get more: Never True Transportation Answer Date Recorded In the past 12 months, has l ack of transportation kept you from medical appts, meetings, work or from getting things needed for daily living? No 09/11/2024 Utilities Answer Date Recorded In the past 12 months, has t he electric, gas, oil or water company threatened to shut off services in your home? No 09/11/2024 Depression Answer Date Recorded Patient Health Questionnaire-2 Score 1 09/18/2024 Internet Access Answer Date Recorded Internet Access Q1 Yes 09/11/2024 Internet Access Q2 Not on file 09/11/2024 Sex and Gender Information Value Date Recorded Sex Assigned at Male 12/21/2021 10:17 AM EDT Legal Sex Male 10:17 AM EDT Gender Identity Choose not to disclose 10:17 AM EDT Sexual Orientation Choose not to disclose 2021 10:17 AM EDT Last Filed Vital Signs Vital Sign Reading Time Taken Comments Blood Pressure 141/75 09/18/2024 9:21 AM EDT Pulse 59 09/18/2024 9:21 AM EDT Temperature 36.2 C (97.1 F) 09/18/2024 9:21 AM EDT Respiratory Rate 18 09/18/2024 9:21 AM EDT Oxygen Saturation 98% 09/18/2024 9:21 AM EDT Inhaled Oxygen Concentration - - Weight 89.8 kg (198 lb) 09/18/2024 9:21 AM EDT Height 172.7 cm (5' 8 ) 09/18/2024 9:21 AM EDT Body Mass Index 30.11 09/18/2024 9:21 AM EDT Plan of Treatment Upcoming Encounters Date Type Department Care Team ([facility] st Contact Info) Description 10/17/2024 11:00 AM EDT Office Visit [facility] [address] [place] [address] Bea Lacey MD [address] [place] [address] 12/14/2024 2:00 PM EDT Office Visit [facility] [address] [place] [address] Daniele Barlow Health Maintenance Due Date Last Done Comments CT Colonography 1952 FIT DNA/Cologuard 1952 FIT 1952 FOBT 1950 Sigmoidoscopy 1952 Alcohol/Substance Use Screening 1964 Hepatitis A Vaccines (1 of 2 - Risk 2-dose series) 05/01/1971 RSV Patients and Patients Aged 60 years or older (1 - Risk 60-74 years 1-dose series) 2012 Diabetes: Foot Exam 11/10/2023 11/09/2022, 11/09/2022, 11/09/2022, Additional history exists Colonoscopy 03/14/2024 03/14/2014 Colorectal Cancer Screening 03/14/2024 COVID-19 Vaccine ( season) 2024 11/01/2023, 11/18/2022, 12/08/2021, Additional history exists Influenza Vaccine (#1) 2024 , 10/31/2023, 11/09/2022, Additional history exists Dental X-Ray: B[facility]wings 11/09/2024 11/09/19 24, 12/22/2022, 09/30/2022 Lipid Panel 11/09/2024 11/10/2023, 03/25, 11/09/2022, Additional history exists Diabetes: Hemoglobin A1C 12/01/2024 025, 11/10/2023, 03/30/2023, Additional history exists Dental Oral Exam 12/16/2024 06/15/2024, , 05/05/2023, Additional history exists Dental Prophylaxis 12/16/2024 06/15/2024, 0 11/09/2023, 05/05/2023, Additional history exists Depression Monitoring 03/21/2025 09/18/2024, 025 SDOH Screening 09/11/2025 09/11/2024 Tobacco Screening 09/18/2025 09/18/2024 Eye Exam 06/28/2026 06/28/2024 Dental X-Ray: Full Mouth 11/09/2026 11/09/2023 DTaP/Tdap/Td Vaccines (3 - Td or Tdap) 09/15/2030 09/15/2020, 09/15/2020, 08/08/2009, Additional history exists Hepatitis B Vaccines Completed 10/08/2016, 06/15/2016, 02/12/2016 [...] Name Priority Date/Time Associated Diagnosis Comments POCT GLUCOSE Routine 09/18/2024 9:24 AM EDT Type 2 diabetes mellitus with hyperglycemia, without long-term current use of insulin ([facility]) NO CHARGE VISIT Routine 08/06/2024 1:00 PM EDT POCT GLUCOSE Routine 08/01/2024 9:23 AM EDT Type 2 diabetes mellitus with hyperglycemia, without long-term current use of insulin ([facility]) POCT GLUCOSE Routine 07/26/2024 9:27 AM EDT Type 2 diabetes mellitus with hyperglycemia, without long-term current use of insulin (CMS/HCC) HM DIABETES EYE EXAM Routine 06/28/2024 11:09 AM EDT PROPHYLAXIS - ADULT Routine 06/15/2024 2 :00 PM EDT PERIODIC ORAL EVALUATION - ESTABLISHED PATIENT Routine 06/15/2024 2:00 PM EDT POCT GLYCATED HEMOGLOBIN, TOTAL Routine 06/01/2024 1:53 PM EDT Type 2 diabetes mellitus with other circulatory complication, without long-term current use of insulin ([facility]) LIPID PANEL, STANDARD Routine 11/10/2023 11:22 AM EDT Type 2 diabetes mellitus without complication, without long-term current use of insulin (CMS/HCC) INTRAORAL - COMPLETE SERIES OF RADIOGRAPHIC IMAGES Routine 11/09/2023 11:00 AM EDT ZZZ HISTORICAL HEPATITIS C AB W/REFL TO HCV RNA, QN, PCR Routine 10/15/2019 1:23 PM EDT COLONOSCOPY Routine 03/14/2014 12:17 PM EST from Last 3 Months or Most Recently Relevant to Health Maintenance Results * POCT Glucose (09/18/2024 9:24 AM EDT) Only the most recent of3 resultswithin the time period is included. Glucose Blood, POC 197 60 - 200 mg/dL [employer] Media Lot # [id number] Lot# Expiration Date ,025 Blood Capillary blood specimen / Unknown 09/18/2024 9:24 AM EDT Bea Lacey MD POINT OF CARE TEST ENTER/EDIT OR DERABLES Final Result * Diabetes Eye Exam (06/28/2024 11:09 AM EDT) Tia Starks MD HEALTH MAINTENANCE Final Result * POCT HGB A1C (06/01/2024 1:53 PM EDT) Hemoglobin A1C 6.0 4.0 - 6.0 % QC Media Lot # [id number] Lot# Expiration Date 1635,026 Blood 06/01/2024 1:53 PM EDT Adeola Spencer MD POINT OF CARE TEST ENTER/EDIT ORDERABLES Final Result * Lipid Panel, Standard (11/10/2023 11:22 AM EDT) Triglycerides 76 <150 mg/dL [facility] Comment:Desirable Triglyceri de: less than 150 mg/dLBorderline High Triglyceride 150-199 mg/dLHigh Triglyceride: 200-499 mg/dLVery High Triglyceride: greater than or equal to 5OO mg/dL Cholesterol 110 <200 mg/dL [facility] Comment:Desirable Cholestero l: less than 200 mg/dLBorderline High Cholesterol: 200-239 mg/dLHigh Cholesterol: greater than 239 mg/dL LDL Cholesterol Calculated 50 <100 mg/dL [facility] Comment:Desirable LDL: less than 100 mg/dLNear Optimal/Above Optimal LDL: 110- 129 mg/dLBorderline High LDL: 130-159 mg/dLHigh LDL: 160-189 mg/dLVery High LDL: greater than or equal to 190 mg/dL HDL Cholesterol 45 >40 mg/dL [facility] Comment:Desirable HDL: great er than 40 mg/dL Note: This HDL assay may give artificially low results in patients with liver disease. Blood Venous blood specimen / Unknown 11/10/2023 11:22 AM EDT 11/10/2023 2:56 PM EDT us Bea Lacey MD LAB BLOOD ORDERABLES Final Resul t [facility] [address] [place] [phone] * HEPATITIS C AB W/REFL TO HCV RNA, QN, PCR (10/15/2019 1:23 PM EDT) HEPATITIS C ANTIBODY NON-REACT ELLE NON-REACT ELLE [facility] INDEX 0.01 <1.00 [facility] Comment: HCV antibody was non-reactive. There is no laboratory evidence of HCV infection. In most cases, no further action is required. However, if recent HCV exposure is suspected, a test for HCV RNA (test code 06527) is suggested. For additional information please refer to http://education.[employer]/faq/BOX33s0 (This link is being provided for informational/ educational purposes only.) 10/15/2019 1:23 PM EDT us Gordon Rocha MD HISTORICAL/NON ORD ERABLE LABS Final Result [facility] [address] [place] [address], * Hm Colonoscopy (03/14/2014 12:17 PM EST) us Historical Provider HEALTH MAINTENANCE Final Result from Last 3 Months or Most Recently Relevant to Health Maintenance Insurance MEDICARE [facility] STAND ADULT * Guarantor: Malik Maki Account Type Relation to Patient Date of Phone Billing Address Personal/Family Self [address] [place] Care Teams Lead Performance Support Analyst Relationship Specialty Start Date End Date Bea Lacey MD [address] [place] [address] PCP - General Family Medicine 09/22/22 Mariely Dennison PharmD [address] [place] [address] Pharmacist Internal Medicine 07/03/24 [facility]
--- OUTSIDE RECORDS SUMMARY | 2024-10-16 11:05 | XMS_ITS | Encounter Summary ---
Author Organization [employer] Address [address] [facility] [address] [place] [address] Care Team Providers Care Manager Consumer Name Role Phone Bea Lacey MD Primary Care Provider [phone] Mariely Dennison PharmD Unavailable [phone] Reason for Visit * Reason Comments Med Refill Encounter Details Date Type Department Care Team ([facility] st Contact Info) Description 03/16/2024 Refill [facility] [address] [place], [place] [phone] Bea Lacey MD [address] [place], [place] [phone] Social History Tobacco Use Types Packs/Day Years [...] Description 10/17/2024 11:00 AM EDT Office Visit [facility] [address] [place] [address] Bea Lacey MD [address] [place] [address] 12/14/2024 2:00 PM EDT Office Visit [facility] [address] [place] [address] Daniele Barlow documented as of this encounter Visit Diagnoses Not on filedocumented in this encounter Additional Health Concerns Assessment Noted Time PHQ-9 Depression Total Score: 20 024 10:22 AM EDT documented as of this encounter Care Teams Manager Consumer Relationship Specialty Start Date End Date Bea Lacey MD [address] [place] [address] PCP - General Family Medicine 09/22/22 Mariely Dennison PharmD [address] [place] [address] Pharmacist Internal Medicine 07/03/24 [facility] documented as of this encounter
--- OUTSIDE RECORDS SUMMARY | 2024-10-16 11:05 | XMS_ITS | Encounter Summary ---
Author Organization [employer] Address [address] [facility] [address] [place] [address] Care Team Providers Care Oil Lease Broker Name Role Phone Bea Lacey MD Primary Care Provider Mariely Dennison PharmD Unavailable [phone] Encounter Details Date Type Department Care Team ([facility] st Contact Info) Description 05/21/2024 Telephone [facility] [address] [place], [place] [phone] Bea Lacey MD [address] [place] [address] Social History Tobacco Use Types Packs/Day Years [...] Description 10/17/2024 11:00 AM EDT Office Visit [facility] [address] [place] [address] Bea Lacey MD [address] [place] [address] 12/14/2024 2:00 PM EDT Office Visit [facility] [address] [place] [address] Daniele Barlow documented as of this encounter Visit Diagnoses Not on filedocumented in this encounter Additional Health Concerns Assessment Noted Time PHQ-9 Depression Total Score: 20 024 10:22 AM EDT documented as of this encounter Care Teams Oil Lease Broker Relationship Specialty Start Date End Date Bea Lacey MD [address] [place] [address] PCP - General Family Medicine 09/22/22 Mariely Dennison PharmD [address] [place] [address] Pharmacist Internal Medicine 07/03/24 [facility] 09/01/24 documented as of this encounter
--- OUTSIDE RECORDS SUMMARY | 2024-10-16 11:05 | XMS_ITS | Encounter Summary ---
Author Organization [employer] Address 75 [facility] 7t [place] [address] Care Team Providers Care Tobacco Prevention Health Educator Name Role Phone Bea Lacey MD Primary Care Provider [phone] Mariely Dennison PharmD Unavailable [phone] Reason for Visit * Reason Comments Med Refill Encounter Details Date Type Department Care Team ([facility] st Contact Info) Description 03/30/2024 Refill [facility] MED & PEDS [address] [place], [place] [phone] Bea Lacey MD [address] [place], [place] [phone] Essential tremor Social History Tobacco Use Types [...] 11:00 AM EDT Office Visit [facility] MED & PEDS [address] [place] [address] Bea Lacey MD [address] [place] [address] 12/14/2024 2:00 PM EDT Office Visit [facility] ADULT DENTAL [address] [place] [address] Daniele Barlow documented as of this encounter Visit Diagnoses Diagnosis Essential tremor documented in this encounter Additional Health Concerns Assessment Noted Time PHQ-9 Depression Total Score: 20 024 10:22 AM EDT documented as of this encounter Care Teams Tobacco Prevention Health Educator Relationship Specialty Start Date End Date Bea Lacey MD [address] [place] [address] PCP - General Family Medicine 09/22/22 Mariely Dennison PharmD [address] [place] [address] Pharmacist Internal Medicine 07/03/24 [facility] documented as of this encounter
--- OUTSIDE RECORDS SUMMARY | 2024-10-16 11:05 | XMS_ITS | Encounter Summary ---
Author Organization [employer] Address 75 [facility] 7t [place] [address] Care Team Providers Care Grades 1 6 Tutor Name Role Phone Bea Lacey MD Primary Care Provider [phone] Mariely Dennison PharmD Unavailable [phone] Encounter Details Date Type Department Care Team (Late st Contact Info) Description 02/29/2024 Orders Only [facility] MED & PEDS [address] [place], [place] [phone] Bea Lacey MD 505 [place], [place] [phone] Type 2 diabetes mellitus with hyperglycemia (CMS/HCC) [...] 11:00 AM EDT Office Visit [facility] MED & PEDS [address] [place] [address] Bea Lacey MD [address] [place] [address] 12/14/2024 2:00 PM EDT Office Visit [facility] ADULT DENTAL [address] [place] [address] Daniele Barlow documented as of this encounter Visit Diagnoses Diagnosis Type 2 diabetes mellitus with hyperglycemia (CMS/HCC) documented in this encounter Additional Health Concerns Assessment Noted Time PHQ-9 Depression Total Score: 20 024 10:22 AM EDT documented as of this encounter Care Teams Grades 1 6 Tutor Relationship Specialty Start Date End Date Bea Lacey MD [address] [place] [address] PCP - General Family Medicine 09/22/22 Mariely Dennison PharmD [address] [place] [address] Pharmacist Internal Medicine 07/03/24 [facility] 09/01/24 documented as of this encounter
--- OUTSIDE RECORDS SUMMARY | 2024-10-16 11:05 | XMS_ITS | Encounter Summary ---
Author Organization [employer] Address 75 [facility] 7t [place] [address] Care Team Providers Care Supervisor Stage Carpentry Name Role Phone Bea Lacey MD Primary Care Provider [phone] Mariely Dennison PharmD Unavailable [phone] Reason for Visit * Reason Onset Date Comments Results 03/30/2023 Encounter Details Date Type Department Care Team ([facility] st Contact Info) Description 03/30/2023 Telephone [facility] MEDICINE [address] [place], [place] [phone] Bea Lacey MD [address] [place], [place] [phone] Results Social History Tobacco Use Types Packs/Day [...] [facility] [address] [place] [address] Bea Lacey MD [address] [place] [address] 12/14/2024 2:00 PM EDT Office Visit [facility] ADULT DENTAL [address] [facility] [place] [address] Daniele Barlow documented as of this encounter Visit Diagnoses Not on filedocumented in this encounter Additional Health Concerns Assessment Noted Time PHQ-9 Depression Total Score: 7 05/29/19 23 10:45 AM EDT documented as of this encounter Care Teams Supervisor Stage Carpentry Relationship Specialty Start Date End Date Bae Lacey MD [address] [place] [address] PCP - General Family Medicine 09/22/22 Mariely Dennison PharmD [address] [place] [address] Pharmacist Internal Medicine 07/03/24 [facility] documented as of this encounter
--- OUTSIDE RECORDS SUMMARY | 2024-10-16 11:05 | XMS_ITS | Encounter Summary ---
Author Organization [employer] Address 75 [facility] 7t [place] [address] Care Team Providers Care Whizzer Operator Name Role Phone eBa Lacey MD Primary Care Provider [phone] Mariely Dennison PharmD Unavailable [phone] Reason for Visit * Reason Onset Date Comments Medication Question 02/07/2023 Encounter Details Date Type Department Care Team ([facility] st Contact Info) Description 02/07/2023 Telephone [facility] MEDICINE 230 [place], [place] [phone] Bea Lacey MD [address] [place], [place] [phone] Medication Question Social History Tobacco Use Types [...] of Linzess and had the med lowered [id number] last month. Pt states diarrhea has stopped [...] Description 10/17/2024 11:00 AM EDT Office Visit [facility] MED & [facility]EDS [facility] [place] [address] Bea Lacey MD [address] [place] [address] 12/14/2024 2:00 PM EDT Office Visit [facility] ADULT DENTAL [address] [facility] [place] [address] Beauzile, Daniele documented as of this encounter Visit Diagnoses Not on filedocumented in this encounter Additional Health Concerns Assessment Noted Time PHQ-9 Depression Total Score: 7 05/29/19 23 10:45 AM EDT documented as of this encounter Care Teams Whizzer Operator Relationship Specialty Start Date End Date Bea Lacey MD [address] [place] [address] PCP - General Family Medicine 09/22/22 Mariely Dennison PharmD [address] [place] [address] Pharmacist Internal Medicine 07/03/24 [facility] documented as of this encounter
--- OUTSIDE RECORDS SUMMARY | 2024-10-16 11:05 | XMS_ITS | Encounter Summary ---
Author Organization [employer] Address 75 [facility] 7t [place] [address] Care Team Providers Care Bridge Club Manager Name Role Phone Bea Lacey MD Primary Care Provider Mariely Dennison PharmD Unavailable [phone] Reason for Visit * Reason Onset Date Comments Nurse Triage 03/05/2024 Encounter Details Date Type Department Care Team ([facility] st Contact Info) Description 03/05/2024 Telephone [facility] MED & PEDS 505 [place], [place] [phone] Bea Lacey MD 505 [place], [place] [phone] Nurse Triage Social History Tobacco Use Types [...] Description 10/17/2024 11:00 AM EDT Office Visit [facility] MED & PEDS 505 [place] [address] Bea Lacey MD [address] [place] [address] 12/14/2024 2:00 PM EDT Office Visit [facility] ADULT DENTAL [address] [place] [address] Daniele Barlow documented as of this encounter Visit Diagnoses Not on filedocumented in this encounter Additional Health Concerns Assessment Noted Time PHQ-9 Depression Total Score: 20 024 10:22 AM EDT documented as of this encounter Care Teams Bridge Club Manager Relationship Specialty Start Date End Date Bea Lacey MD [address] [place] [address] PCP - General Family Medicine 09/22/22 Mariely Dennison PharmD [address] [place] [address] Pharmacist Internal Medicine 07/03/24 [facility] documented as of this encounter
--- OUTSIDE RECORDS SUMMARY | 2024-10-16 11:05 | XMS_ITS | Encounter Summary ---
Author Organization [employer] Address 75 [facility] 7t [place] [address] Care Team Providers Care Plastic Die Maker Apprentice Name Role Phone Bea Lacey MD Primary Care Provider [phone] Mariely Dennison PharmD Unavailable [phone] Reason for Visit * Reason Onset Date Comments Med reconciliation 10/08/2024 Encounter Details Date Type Department Care Team ([facility] st Contact Info) Description 10/08/2024 Telephone C [facility] MED & PEDS [address] [place], [place] [phone] Bea Lacey MD [address] [place], [place] [phone] Med reconciliation Social History Tobacco Use Types Packs/Day Years [...] encounter Miscellaneous Notes * Telephone Encounter - Hannah Chen - 10/08/2024 3:26 PM EDT Tc from [place] with [facility] requesting a call back for medication reconciliation andto discuss pain medication. Contact Marcy [phone] documented in this encounter Plan of Treatment Upcoming Encounters Date Type Department Care Team (Late st Contact Info) Description 10/17/2024 11:00 AM EDT Office Visit [facility] MED & PEDS [address] [place] [address] Bea Lacey MD [address] [place] [address] 12/14/2024 2:00 PM EDT Office Visit [facility] ADULT DENTAL [address] [place] [address] Daniele Barlow documented as of this encounter Visit Diagnoses Not on filedocumented in this encounter Additional Health Concerns Assessment Noted Time PHQ-9 Depression Total Score: 9 09/19/19 25 9:36 AM EDT documented as of this encounter Care Teams Plastic Die Maker Apprentice Relationship Specialty Start Date End Date Bea Lacey MD [address] [place] [address] PCP - General Family Medicine 09/22/22 Mariely Dennison PharmD [address] [place] [address] Pharmacist Internal Medicine 07/03/24 [facility] 09/01/24 documented as of this encounter
--- OUTSIDE RECORDS SUMMARY | 2024-10-16 11:06 | XMS_ITS | Encounter Summary ---
Author Organization [employer] Address 75 [facility] 7t [place] [address] Care Team Providers Care Pegger Dobby Looms Name Role Phone Bea Lacey MD Primary Care Provider [phone] Mariely Dennison PharmD Unavailable [phone] Reason for Visit * Reason Onset Date Comments FYI 08/30/2024 Encounter Details Date Type Department Care Team ([facility] st Contact Info) Description 08/30/2024 Telephone [facility] MEDICINE [address] [place], [place] [phone] Bea Lacey MD [address] [place], [place] [phone] Social History Tobacco Use Types Packs/Day Years [...] Telephone Encounter - Amarilys Patel RN - 08/30/2024 1:14 PM EDT Noted * Telephone Encounter - Graham Hall - 08/30/2024 12:38 PM EDT Tc from [place] with [facility] calling to inform pcp that pt has been referred to their services for at home PT and will be starting care on 08/31. documented in this encounter Plan of Treatment Upcoming Encounters Date Type Department Care Team (Late st Contact Info) Description 10/17/2024 11:00 AM EDT Office Visit [facility] MED & PEDS [address] [place] [address] Bea Lacey MD 505 [place] [address] 12/14/2024 2:00 PM EDT Office Visit [facility] ADULT DENTAL [address] [place] [address] Daniele Barlow documented as of this encounter Visit Diagnoses Not on filedocumented in this encounter Additional Health Concerns Assessment Noted Time PHQ-9 Depression Total Score: 20 024 10:22 AM EDT documented as of this encounter Care Teams Pegger Dobby Looms Relationship Specialty Start Date End Date Bea Lacey MD [address] [place] [address] PCP - General Family Medicine 09/22/22 Mariely Dennison PharmD [address] [place] [address] Pharmacist Internal Medicine 07/03/24 [facility] documented as of this encounter
--- OUTSIDE RECORDS SUMMARY | 2024-10-16 11:06 | XMS_ITS | Clinical Summary ---
Author Organization 175 [facility] Address [address] [place] [address] Phone Care Team Providers Care Direct Casting Operator Name Role Phone Bea Lacey MD Primary Care Provider [phone] Allergies No known active allergies Medications aspirin [...] Noted Date Diagnosed Date Chronic atrial fibrillation ([facility] V24, [facility]/ C V28) 12/30/2023 Mood disorder ([facility] V24) 12/30/2023 Nutcracker esophagus 12/30/2023 Benign hypertension 12/30/2023 BPH (benign prostatic hyperplasia) 12/30/2023 Bilateral cataracts 12/30/2023 Bilateral tinnitus 12/30/2023 CVA (cerebral vascular accident) ([facility] V24, C [place]/[facility] V28) 12/30/2023 Heart failure with normal ej ection fraction ([facility] V24, [facility] V28) 12/30/2023 Hyperlipidemia 12/30/2023 History of parathyroidectomy 12/30/2023 CKD (chronic kidney disease) 12/30/2023 Type 2 diabetes mellitus wit h hyperglycemia ([facility] V24, [facility] V28) 12/30/2023 CAD in [place] artery 12/30/2023 Erectile dysfunction due to diseases [...] Diabetes: Annual Urine Albumin-Creatinine Ratio (uACR) 12/01/2023 Depression Screening 02/22/2024 COVID-19 Vaccine (7 - Mixed Product risk ) 2024 11/01/2023, 11/18/2022, 12/08/2021, Additional history exists Diabetes: Blood Sugar Control Test (HGBA1C) 05/09/2024 11/10/2023 Influenza Vaccine (#1) 2024 , 11/09/2022, 12/03/2021, [...] Insurance MEDICARE MEDICAID - [place] Care Teams Direct Casting Operator Relationship Specialty Start Date End Date Bea Lacey MD [address] [place] [id number] PCP - General 04/04/23
--- OUTSIDE RECORDS SUMMARY | 2024-10-16 11:06 | XMS_ITS | Encounter Summary ---
Author Organization [employer] Address 75 [facility] 7t [place] [address] [address] Team Providers Care [address] Man Name Role Phone Gordon Mills MD Primary Care Prov ider Bea Cottrell MD Primary Care Provider [phone] Mariely Dennison PharmD Unavailable [phone] Reason for Visit * Reason Onset Date Comments PCP change 09/01/2022 Encounter Details Date Type Department Care Team ([facility] st Contact Info) Description 09/01/2022 Telephone [facility] CHC MED & PEDS [address] [place], [place] [phone] Gordon Mills MD [address] [place], [place] [phone] PCP change Social History Tobacco Use Types [...] 11:00 AM EDT Office Visit [facility] MED & PEDS 505 [place] [address] Bea Cottrell MD 505 [place] [address] 12/14/2024 2:00 PM EDT Office Visit [facility] ADULT DENTAL [address] [place] [address] Daniele Barlow documented as of this encounter Visit Diagnoses Not on filedocumented in this encounter Additional Health Concerns Assessment Noted Time PHQ-9 Depression Total Score: 7 05/29/19 10:45 AM EDT documented as of this encounter Care Teams Drive Man Relationship Specialty Start Date End Date Gordon Mills MD [address] [place] [address] PCP - General Internal Medicine 07/12/19 09/21/22 Bea Cottrell MD [address] [place] [address] PCP - General Family Medicine 09/22/22 Mariely Dennison PharmD [address] [place] [address] Pharmacist Internal Medicine 07/03/24 [facility] documented as of this encounter
--- OUTSIDE RECORDS SUMMARY | 2024-10-16 11:06 | XMS_ITS | Encounter Summary ---
Author Organization [employer] Address 75 [facility] 7t [place] [address] Care Team Providers Care Airport Attendant Name Role Phone Bea Lacey MD Primary Care Provider [phone] Mariely Dennison PharmD Unavailable [phone] Reason for Visit * Reason Onset Date Comments Medication Question 06/10/2023 Encounter Details Date Type Department Care Team ([facility] Contact Info) Description 06/10/2023 Telephone [facility] CHC MED & PEDS [address] [place], [place] [phone] Bea Lacey MD [address] [place], [place] [phone] Medication Question Social History Tobacco Use Types [...] Description 10/17/2024 11:00 AM EDT Office Visit [facility] MED & PEDS 505 [place] [address] Bea Lacey MD [address] [place] [address] 12/14/2024 2:00 PM EDT Office Visit [facility] ADULT DENTAL 505 [place] [address] Daniele Barlow documented as of this encounter Visit Diagnoses Not on filedocumented in this encounter Additional Health Concerns Assessment Noted Time PHQ-9 Depression Total Score: 20 024 10:22 AM EDT documented as of this encounter Care Teams Airport Attendant Relationship Specialty Start Date End Date Bea Lacey MD [address] [place] [address] PCP - General Family Medicine 09/22/22 Mariely Dennison PharmD [address] [place] [address] Pharmacist Internal Medicine 07/03/24 [facility] 09/01/24 documented as of this encounter
--- OUTSIDE RECORDS SUMMARY | 2024-10-16 11:06 | XMS_ITS | Encounter Summary ---
Author Organization [employer] Address 75 [facility] 7t [place] [address] Care Team Providers Care Review Assistant Name Role Phone Bea Lacey MD Primary Care Provider [phone] Mariely Dennison PharmD Unavailable [phone] Reason for Visit * Reason Onset Date Comments Glucose Monetor 10/08/2022 Encounter Details Date Type Department Care Team ([facility] st Contact Info) Description 10/08/2022 Telephone C [facility] MED & PEDS [address] [place], [place] [phone] Bea Lacey MD [address] [place] [address] Glucose Monetor Social History Tobacco Use Types [...] call to patient who is requesting a Precision Repair Networke two Sensor. Pt states it will make it easier for him due to difficulty pinching. Pt would like it to be sent to [facility], pt provided number . Patient also stated that he wants a prescription for pseudoephedrine fornasal congestion and runny nose. This message will be forwarded to provider. * Telephone Encounter - Lexi Mckinnon Dustin - 10/08/2022 8:21 AM EDT Tc from pt requesting a Precision Repair Networke two Sensor. Pt states it will make it easier for him due todifficulty pinching. Pt would like it to be sent to [facility], pt provided number Please contact pt at [phone] documented in this encounter Plan of Treatment Upcoming Encounters Date Type Department Care Team (Late st Contact Info) Description 10/17/2024 11:00 AM EDT Office Visit [facility] MED & PEDS [address] [place] [address] Bea Lacey MD 505 [place] [address] 12/14/2024 2:00 PM EDT Office Visit [facility] ADULT DENTAL [address] [place] [address] Daniele Barlow documented as of this encounter Visit Diagnoses Not on filedocumented in this encounter Additional Health Concerns Assessment Noted Time PHQ-9 Depression Total Score: 7 05/29/19 23 10:45 AM EDT documented as of this encounter Care Teams Review Assistant Relationship Specialty Start Date End Date Bea Lacey MD [address] [place] [address] PCP - General Family Medicine 09/22/22 Mariely Dennison PharmD [address] [place] [address] Pharmacist Internal Medicine 07/03/24 [facility] 09/01/24 documented as of this encounter
--- OUTSIDE RECORDS SUMMARY | 2024-10-16 11:06 | XMS_ITS | Encounter Summary ---
Author Organization [employer] Address 75 [facility] 7t [place] [address] Care Team Providers Care Wharf Helper Name Role Phone Bea Lacey MD Primary Care Provider [phone] Mariely Dennison PharmD Unavailable [phone] Reason for Visit * Reason Onset Date Comments Medication Question 06/20/2023 Encounter Details Date Type Department Care Team ([facility] st Contact Info) Description 06/20/2023 Telephone [facility] MEDICINE [address] [place], [place] [phone] Bea Lacey MD [address] [place], [place] [phone] Medication Question Social History Tobacco Use Types [...] [facility] MED & PEDS [address] [place] [address] Bea Lacey MD 505 [place] [address] 12/14/2024 2:00 PM EDT Office Visit [facility] ADULT DENTAL [address] [place] [address] Daniele Barlow documented as of this encounter Visit Diagnoses Not on filedocumented in this encounter Additional Health Concerns Assessment Noted Time PHQ-9 Depression Total Score: 20 024 10:22 AM EDT documented as of this encounter Care Teams Wharf Helper Relationship Specialty Start Date End Date Bea Lacey MD [address] [place] [address] PCP - General Family Medicine 09/22/22 Mariely Dennison PharmD [address] [place] [address] Pharmacist Internal Medicine 07/03/24 [facility] documented as of this encounter
--- OUTSIDE RECORDS SUMMARY | 2024-10-16 11:06 | XMS_ITS | Encounter Summary ---
Author Organization [employer] Address 75 [facility] 7t [place] [address] Care Team Providers Care Career Development Director Name Role Phone Bea Lacey MD Primary Care Provider [phone] Mariely Dennison PharmD Unavailable [phone] Reason for Visit * Reason Onset Date Comments Results 04/28/2023 Encounter Details Date Type Department Care Team ([facility] st Contact Info) Description 04/28/2023 Telephone [facility] MEDICINE 230 [place], [place] [phone] Bea Lacey MD [address] [place], [place] [phone] Results Social History Tobacco Use Types Packs/Day [...] 10/17/2024 11:00 AM EDT [facility] [address] [place] [address] Bea Lacey MD 505 [place] [address] 12/14/2024 2:00 PM EDT Office Visit [facility] ADULT DENTAL [address] [place] [address] Daniele Barlow documented as of this encounter Visit Diagnoses Not on filedocumented in this encounter Additional Health Concerns Assessment Noted Time PHQ-9 Depression Total Score: 7 05/29/19 23 10:45 AM EDT documented as of this encounter Care Teams Career Development Director Relationship Specialty Start Date End Date Bea Lacey MD [address] [place], [place] [phone] PCP - General Family Medicine 09/22/22 Mariely Dennison PharmD [address] [place], [place] [phone] Pharmacist Internal Medicine 07/03/24 [facility] 09/01/24 documented as of this encounter
--- OUTSIDE RECORDS SUMMARY | 2024-10-16 11:06 | XMS_ITS | Encounter Summary ---
Author Organization [employer] Address 75 [facility] 7t [place] [address] Care Team Providers Care Medical Billing Service Name Role Phone Bea Lacey MD Primary Care Provider [phone] Mariely Dennison PharmD Unavailable [phone] Reason for Visit * Reason Comments Med Refill Encounter Details Date Type Department Care Team (Late st Contact Info) Description 10/11/2022 Refill [facility] MED & PEDS [address] [place] [address] Bea Lacey MD [address] [place] [address] Chronic rhinitis Social History Tobacco Use Types [...] Department Care Team (Late Contact Info) Description 10/17/2024 11:00 AM EDT Office Visit [facility] MED & PEDS [address] [place] [address] Bea Lacey MD [address] [place] [address] 12/14/2024 2:00 PM EDT Office Visit [facility]C ADULT DENTAL [address] [place] [address] Daniele Barlow documented as of this encounter Visit Diagnoses Diagnosis Chronic rhinitis documented in this encounter Additional Health Concerns Assessment Noted Time PHQ-9 Depression Total Score: 7 05/29/19 23 10:45 AM EDT documented as of this encounter Care Teams Medical Billing Service Relationship Specialty Start Date End Date Bea Lacey MD [address] [place] [address] PCP - General Family Medicine 09/22/22 Mariely Dennison PharmD [address] [place] [address] Pharmacist Internal Medicine 07/03/24 [facility] documented as of this encounter
--- OUTSIDE RECORDS SUMMARY | 2024-10-16 11:06 | XMS_ITS | Encounter Summary ---
Author Organization [employer] Address 75 [facility] 7 [place] [address] Care Team Providers Care Plastic Surgeon Name Role Phone Gordon Mills MD Primary Care Prov ider Bea Lacey MD Primary Care Provider [phone] Mariely Dennison PharmD Unavailable [phone] Reason for Referral * Social Care Application (Routine) - Closed Specialty Diagnoses / Procedures Referred By Contac t Referred To Contact Diabetic / Diabetes Services Diagnoses Type 2 diabetes mellitus with hyperglycemia, without long-term current use of insulin (CMS/HCC) Peter Barlow MD [address] [place] [address] Phone: tel: fax: Referral ID Status Reason Start Date Expiration Date V isits Requested Visits Authorized [id number] Closed Specialty Services Required 09/02/2022 03/01/2023 1 1 Encounter Details Date Type Department Care Team ([facility] st Contact Info) Description 09/02/2022 Orders Only [facility] MED & PEDS [address] [place] [address] Peter Barlow MD [address] [place] [address] Type 2 diabetes mellitus with hyperglycemia, without [...] Upcoming Encounters Date Type Department Care Team ([facility] st Contact Info) Description 10/17/2024 11:00 AM EDT Office Visit [facility] MED & PEDS [address] [place] [address] Bea Lacey MD [address] [place] [address] 12/14/2024 2:00 PM EDT Office Visit [facility] ADULT DENTAL [address] [place] [address] Daniele Barlow Scheduled Referrals Name Type Priority [...] as of this encounter Care Teams Plastic Surgeon Relationship Specialty Start Date End Date Gordon Mills MD [address] [place] [address] PCP - General Internal Medicine 07/12/19 09/21/22 Bea Lacey MD [address] [place] [address] PCP - General Family Medicine 09/22/22 Mariely Dennison PharmD [address] [place] [address] Pharmacist Internal Medicine 07/03/24 [facility] 09/01/24 documented as of this encounter
--- OUTSIDE RECORDS SUMMARY | 2024-10-16 11:06 | XMS_ITS | Clinical Summary ---
Author Organization [facility] Address [address] [address] Phone Care Team Providers Care Software Installation Engineer Name Role Phone Lula Lacey MD Primary Care Provider [phone] Allergies Active Allergy Reactions Criticality Noted Date [...] and 250 mg before bedtime. Active Methylnaltrexone [place] (Relistor) 150 MG tablet Take by mouth [...] Encounters Date Type Department Care Team Description 10/15/2024 Orders Only [facility] [address] [address] Jeri Keller ARNP 07/25/2024 Office Communication [facility] [address] [address] Mechelle Romo from Last 3 Months Immunizations Immunization Administration [...] [facility] [address] [address] Get Galo MD [address] [phone] Health Maintenance Due Date Last Done Comments [...] 025, 11/10/2023, 09/21/2018 Influenza Vaccine (#1) 2024 , 12/03/2021, 12/15/2020, Additional history exists Pneumococcal Vaccine: 50+ Years Completed 09/15/2020, 10/26/2018, 04/26/2012, Additional history exists Pneumococcal Vaccine: Peds ( 0 to 5 Years) and At-Risk Patients (6 to 49 Years) Discontinued 09/15/2020, 10/26/2018, 04/26/2012, Additional history exists Procedures Procedure Name Priority Date/Time Associated Diagnosis Comments PTH, INTACT Routine 10/15/2024 5:04 PM EDT URINE ALBUMIN / CREATININE RATIO Routine 10/15/2024 5:04 PM EDT PROTEIN / CREATININE RATIO, URINE Routine 10/15/2024 5:04 PM EDT RENAL FUNCTION PANEL Routine 10/15/2024 5:04 PM EDT CBC AND DIFFERENTIAL Routine 10/15/2024 5:04 PM EDT BLOOD PANEL (HC) Routine 09/21/2018 12:0 0 AM EDT from Last 3 Months or Most Recently Relevant to Health Maintenance Results * (ABNORMAL) CBC and Differential (10/15/2024 5:04 PM EDT) WBC 5.9 3.4 - 10.8 x10E3/uL [facility] RBC 4.21 4.14 - 5.80 x10E6/uL [facility] Hemoglobin 10.8(L) 13.0 - 17.7 g/dL [facility] Hematocrit 36.1(L) 37.5 - 51.0 % [facility] MCV 86 79 - 97 fL [facility] MCH 25.7(L) 26.6 - 33.0 pg [facility] MCHC 29.9(L) 31.5 - 35.7 g/dL [facility] RDW 16.1(H) 11.6 - 15.4 % [facility] Platelets 262 150 - 450 x10E3/uL [facility] Neutrophils Relative 56 Not Estab. % [facility] Lymphocytes Relative 32 Not Estab. % [facility] Monocytes 8 Not Estab. % [facility] Eosinophils Relative 3 Not Estab. % [facility] Basophils Relative 1 Not Estab. % [facility] Neutrophils Absolute 3.3 1.4 - 7.0 x10E3/uL [facility] Lymphocytes Absolute 1.9 0.7 - 3.1 x10E3/uL [facility] Monocytes Absolute 0.5 0.1 - 0.9 x10E3/uL [facility] Eosinophils Absolute 0.2 0.0 - 0.4 x10E3/uL [facility] Basophils Absolute 0.0 0.0 - 0.2 x10E3/uL [facility] Immature Granulocytes 0 Not Estab. % [facility] Immature Grans (Absolute) 0.0 0.0 - 0.1 x10E3/uL [facility] 10/15/2024 5:04 PM EDT 10/15/2024 [facility] BLOOD ORDERABLES Final Result [facility] [address] [place] [address] * (ABNORMAL) PTH, Intact (10/15/2024 5:04 PM EDT) Pathologist [facility] PTH 14(L) 15 - 65 pg/mL [facility] 10/15/2024 5:04 PM EDT 10/15/2024 [facility] LAB BLOOD ORDERABLES Final Result Performing Organization Address City/[facility]/ZIP Co de Phone Number [facility] [address] [place] [address] * (ABNORMAL) Renal Function Panel (10/15/2024 5:04 PM EDT) Glucose 88 70 - 99 mg/dL [facility] BUN 11 8 - 27 mg/dL [facility] Creatinine 0.82 0.76 - 1.27 mg/dL [facility] eGFR CKD-EPI CR 2020 93 >59 mL/min/1.7 3 [facility] BUN/Creatinine Ratio 13 10 - 24 [facility] Sodium 143 134 - 144 mmol/L [facility] Potassium 4.1 3.5 - 5.2 mmol/L [facility] Chloride 108(H) 96 - 106 mmol/L [facility] Bicarbonate (CO2) 22 20 - 29 mmol/L [facility] Calcium 8.5(L) 8.6 - 10.2 mg/dL [facility] Phosphorus 3.8 2.8 - 4.1 mg/dL [facility] Albumin 3.7(L) 3.8 - 4.8 g/dL [facility] 10/15/2024 5:04 PM EDT 10/15/[address] [facility] LAB BLOOD ORDERABLES Final Result [facility] [address] [place] [address] * (ABNORMAL) Blood Panel (09/21/2018 12:00 AM [...] ug/dl RTAMA 09/21/2018 us Rtama Conversion LAB [id number] LICITED RESULTS Final Result RTAMA from Last 3 Months or Most Recently Relevant to Health Maintenance Insurance Medicare Medicaid [place] Medicare Medicaid [place] Care Teams Software Installation Engineer Relationship Specialty Start Date End Date Lula Lacey MD [address] [place] [address] PCP - General Internal Medicine 01/25/24
--- OUTSIDE RECORDS SUMMARY | 2024-10-16 11:06 | XMS_ITS | Encounter Summary ---
Author Organization [employer] Address 75 [facility] 7t [place] [address] Care Team Providers Care Deblocker Name Role Phone Bea Lacey MD Primary Care Provider [phone] Mariely Dennison PharmD Unavailable [phone] Encounter Details Date Type Department Care Team (Late st Contact Info) Description 07/14/2023 Orders Only [facility] CHC MED & PEDS [address] [place], [place] [phone] ProviderTia MD Social History Tobacco Use Types [...] AM EDT Office Visit [facility] MED & PEDS [address] [place] [address] Bea Lacey MD [address] [place] [address] 12/14/2024 2:00 PM EDT Office Visit [facility] ADULT DENTAL [address] [place] [address] Daniele Barlow documented as of this encounter [...] documented as of this encounter Care Teams Deblocker Relationship Specialty Start Date End Date Bea Lacey MD [address] [place], [place] [phone] PCP - General Family Medicine 09/22/22 Mariely Dennison PharmD [address] [place], [place] [phone] Pharmacist Internal Medicine 07/03/24 [facility] documented as of this encounter
--- OUTSIDE RECORDS SUMMARY | 2024-10-16 11:06 | XMS_ITS | Encounter Summary ---
Author Organization [employer] Address 75 [facility] 7t [place] [address] Care Team Providers Care Transitional Nurse Name Role Phone Bea Lacey MD Primary Care Provider [phone] Mariely Dennison PharmD Unavailable [phone] Encounter Details Date Type Department Care Team (Late st Contact Info) Description 06/07/2023 Orders Only [facility] MEDICINE [address] [place], [place] [phone] Provider, MD Tia Social History Tobacco Use Types Packs/Day Years [...] Description 10/17/2024 11:00 AM EDT Office Visit [facility] MED & PEDS [address] [place] [address] Bea Lacey MD [address] [place] [address] 12/14/2024 2:00 PM EDT Office Visit [facility] ADULT DENTAL [address] [place] [address] Daniele Barlow documented as of this encounter [...] documented as of this encounter Care Teams Transitional Nurse Relationship Specialty Start Date End Date Bea Lacey MD [address] [place] [address] PCP - General Family Medicine 09/22/22 Mariely Dennison PharmD [address] [place] [address] Pharmacist Internal Medicine 07/03/24 [facility] 09/01/24 documented as of this encounter
--- OUTSIDE RECORDS SUMMARY | 2024-10-16 11:06 | XMS_ITS | Encounter Summary ---
Author Organization [employer] Address 75 [facility] 7t [place] [address] Care Team Providers Care Complex Care Nurse Practitioner Name Role Phone Bea Lacey MD Primary Care Provider [phone] Mariely Dennison PharmD Unavailable [phone] Reason for Visit * Reason Comments Med Refill Encounter Details Date Type Department Care Team ([facility] Contact Info) Description 07/20/2024 Refill [facility] CHC MED & PEDS [address] [place], [place] [phone] Gordon Mills MD [address] [place] [address] Type 2 diabetes mellitus with hyperglycemia (CMS/HCC) [...] Description 10/17/2024 11:00 AM EDT Office Visit [facility] MED & PEDS [address] [place] [address] Bea Lacey MD 505 [place] [address] 12/14/2024 2:00 PM EDT Office Visit [facility] ADULT DENTAL [address] [place] [address] Daniele Barlow documented as of this encounter Visit Diagnoses Diagnosis Type 2 diabetes mellitus with hyperglycemia (CMS/HCC) documented in this encounter Additional Health Concerns Assessment Noted Time PHQ-9 Depression Total Score: 20 024 10:22 AM EDT documented as of this encounter Care Teams Complex Care Nurse Practitioner Relationship Specialty Start Date End Date Bea Lacey MD [address] [place] [address] PCP - General Family Medicine 09/22/22 Mariely Dennison PharmD [address] [place] [address] Pharmacist Internal Medicine 07/03/24 [facility] 09/01/24 documented as of this encounter
--- OUTSIDE RECORDS SUMMARY | 2024-10-16 11:06 | XMS_ITS | Encounter Summary ---
Author Organization [employer] Address 75 [facility] 7t [place] [address] Care Team Providers Care Supervisor Road Administrator Name Role Phone Bea Lacey MD Primary Care Provider [phone] Mariely Dennison PharmD Unavailable [phone] Reason for Visit * Reason Onset Date Comments Med Refill 10/06/2023 Encounter Details Date Type Department Care Team (Late st Contact Info) Description 10/06/2023 Telephone [facility] MEDICINE [address] [place], [place] [phone] Bea Lacey MD [address] [place], [place] [phone] Med Refill Social History Tobacco Use Types [...] X 4 MM To be sent to: [facility] Pharmacy documented in this encounter Plan of Treatment Upcoming Encounters Date Type Department Care Team (Late st Contact Info) Description 10/17/2024 11:00 AM EDT Office Visit [facility] MED & PEDS [address] [place] [address] Bea Lacey MD [address] [place] [address] 12/14/2024 2:00 PM EDT Office Visit [facility] ADULT DENTAL [address] [place] [address] Daniele Barlow documented as of this encounter Visit Diagnoses Not on filedocumented in this encounter Additional Health Concerns Assessment Noted Time PHQ-9 Depression Total Score: 20 024 10:22 AM EDT documented as of this encounter Care Teams Supervisor Road Administrator Relationship Specialty Start Date End Date Bea Lacey MD [address] [place] [address] PCP - General Family Medicine 09/22/22 Mariely Dennison, LadiD [address] [place] [address] Pharmacist Internal Medicine 07/03[facility]24 [facility] documented as of this encounter
--- OUTSIDE RECORDS SUMMARY | 2024-10-16 11:06 | XMS_ITS | Encounter Summary ---
Author Organization [employer] Address 75 [facility] 7t [place] [address] Care Team Providers Care Salesforce Business Analyst Name Role Phone Bea Lacey MD Primary Care Provider [phone] Mariely Dennison PharmD Unavailable [phone] Reason for Visit * Reason Comments Med Refill Encounter Details Date Type Department Care Team ([facility] Contact Info) Description 09/30/2022 Refill [facility] MED & PEDS [address] [place], [place] [phone] Gordon Mills MD [address] [place] [address] Chronic rhinitis Social History Tobacco Use Types [...] Upcoming Encounters Date Type Department Care Team ([facility] Contact Info) Description 10/17/2024 11:00 AM EDT Office Visit [facility] MED & PEDS [address] [place], [place] [phone] Bea Lacey MD [address] [place] [address] 12/14/2024 2:00 PM EDT Office Visit [facility] CHC ADULT DENTAL [address] [place] [address] Daniele Barlow documented as of this encounter Visit Diagnoses Diagnosis Chronic rhinitis documented in this encounter Additional Health Concerns Assessment Noted Time PHQ-9 Depression Total Score: 7 05/29/19 23 10:45 AM EDT documented as of this encounter Care Teams Salesforce Business Analyst Relationship Specialty Start Date End Date Bea Lacey MD [address] [place] [address] PCP - General Family Medicine 09/22/22 Mariely Dennison PharmD [address] [place] [address] Pharmacist Internal Medicine 07/03/24 [facility] 09/01/24 documented as of this encounter
--- OUTSIDE RECORDS SUMMARY | 2024-10-16 11:06 | XMS_ITS | Encounter Summary ---
Author Organization [employer] Address 75 [facility] 7t [place] [address] Care Team Providers Care Forest Logistics Manager Name Role Phone Gordon Mills MD Primary Care Prov ider Bea Lacey MD Primary Care Provider [phone] Mariely Dennison PharmD Unavailable [phone] Reason for Visit * Reason Comments Med Refill Encounter Details Date Type Department Care Team ([facility] st Contact Info) Description 09/02/2022 Refill [facility] CHC MED & PEDS [address] [place], [place] [phone] Peter Barlow MD [address] [place] [address] Social History Tobacco Use Types Packs/Day Years [...] 11:00 AM EDT Office Visit [facility] MED & PEDS [address] [place] [address] Bea Lacey MD [address] [place] [address] 12/14/2024 2:00 PM EDT Office Visit [facility] ADULT DENTAL [address] [place] [address] Daniele Barlow documented as of this encounter Visit Diagnoses Not on filedocumented in this encounter Additional Health Concerns Assessment Noted Time PHQ-9 Depression Total Score: 7 05/29/19 23 10:45 AM EDT documented as of this encounter Care Teams Forest Logistics Manager Relationship Specialty Start Date End Date MartinGordon Ann MD [address] [place] [address] PCP - General Internal Medicine 07/12/19 09/21/22 Bea Lacey MD [address] [place] [address] PCP - General Family Medicine 09/22/22 Mariely Dennison PharmD [address] [place] [address] Pharmacist Internal Medicine 07/03/24 [facility] documented as of this encounter
--- OUTSIDE RECORDS SUMMARY | 2024-10-16 11:06 | XMS_ITS | Encounter Summary ---
Author Organization [facility] Address [address] [address] Phone Care Team Providers Care Shell Mold Bonding Machine Operator Name Role Phone Lula Lacey MD Primary Care Provider [phone] Encounter Details Date Type Department Care Team (Late Contact Info) Description 10/15/2024 Orders Only [facility] [address] [address] Jeri Keller ARNP [address] [address] Social History Tobacco Use Types Packs/Day Years [...] Department Care Team (Late Contact Info) Description 01/30/2025 1:00 PM EST Office Visit [facility] [address] [address] Get Galo MD [address] [address] Pending Results Name Type Priority Associated Diagnoses Date /Time Protein, Total, Random Urine w/Creatinine (Protein/Creat Ratio) Lab Routine 10/15/2024 5:04 PM EDT Urine Albumin / Creatinine Ratio Lab Routine 10/15/2024 5:04 PM EDT documented as of this encounter Procedures Procedure Name Priority Date/Time Associated Diagnosis Comments PROTEIN / CREATININE RATIO, URINE Routine 10/15/2024 5:04 PM EDT URINE ALBUMIN / CREATININE RATIO Routine 10/15/2024 5:04 PM EDT CBC AND DIFFERENTIAL Routine 10/15/2024 5:04 PM EDT PTH, INTACT Routine 10/15/2024 5:04 PM EDT RENAL FUNCTION PANEL Routine 10/15/2024 5:04 PM EDT documented in this encounter Results * (ABNORMAL) PTH, Intact (10/15/2024 5:04 PM EDT) PTH 14(L) 15 - 65 pg/mL [facility] 10/15/2024 5:04 PM EDT 10/15/2024 Jeri Keller [facility] LAB BLOOD ORDERABLES Final Result [facility] [address] [place] [address] * (ABNORMAL) Renal Function Panel (10/15/2024 5:04 PM EDT) Pathologist [facility] Glucose 88 70 - 99 mg/dL [facility] BUN 11 8 - 27 mg/dL [facility] Creatinine 0.82 0.76 - 1.27 mg/dL [facility] eGFR CKD-EPI CR 2020 93 >59 mL/min/1.7 3 [facility] BUN/Creatinine Ratio 13 10 - 24 [facility] Sodium 143 134 - 144 mmol/L [facility] Potassium 4.1 3.5 - 5.2 mmol/L [facility] Chloride 108(H) 96 - 106 mmol/L [facility] Bicarbonate (CO2) 22 20 - 29 mmol/L [facility] Calcium 8.5(L) 8.6 - 10.2 mg/dL [facility] Phosphorus 3.8 2.8 - 4.1 mg/dL [facility] Albumin 3.7(L) 3.8 - 4.8 g/dL [facility] 10/15/2024 5:04 PM EDT 10/15/2024 Jeri Keller [facility] LAB BLOOD ORDERABLES Final Result [facility] [address] [place] [address] * (ABNORMAL) CBC and Differential (10/15/2024 5:04 PM EDT) WBC 5.9 3.4 - 10.8 x10E3/uL [facility] RBC 4.21 4.14 - 5.80 x10E6/uL [facility] Hemoglobin 10.8(L) 13.0 - 17.7 g/dL [facility] Hematocrit 36.1(L) 37.5 - 51.0 % [facility] MCV 86 79 - 97 fL [facility] MCH 25.7(L) 26.6 - 33.0 pg [facility] MCHC 29.9(L) 31.5 - 35.7 g/dL [facility] RDW 16.1(H) 11.6 - 15.4 % [facility] Platelets 262 150 - 450 x10E3/uL [facility] Neutrophils Relative 56 Not Estab. % [facility] Lymphocytes Relative 32 Not Estab. % [facility] Monocytes 8 Not Estab. % [facility] Eosinophils Relative 3 Not Estab. % [facility] Basophils Relative 1 Not Estab. % [facility] Neutrophils Absolute 3.3 1.4 - 7.0 x10E3/uL [facility] Lymphocytes Absolute 1.9 0.7 - 3.1 x10E3/uL [facility] Monocytes Absolute 0.5 0.1 - 0.9 x10E3/uL [facility] Eosinophils Absolute 0.2 0.0 - 0.4 x10E3/uL [facility] Basophils Absolute 0.0 0.0 - 0.2 x10E3/uL [facility] Immature Granulocytes 0 Not Estab. % [facility] Immature Grans (Absolute) 0.0 0.0 - 0.1 x10E3/uL [facility] 10/15/2024 5:04 PM EDT 10/15/2024 Jeri Keller [facility] LAB BLOOD ORDERABLES Final Result [facility] [address] [place] [address] documented in this encounter Visit Diagnoses Not on filedocumented in this encounter Care Teams Shell Mold Bonding Machine Operator Relationship Specialty Start Date End Date Lula Lacey MD [address] [place], [place] [address] [place] PCP - General Internal Medicine 01/25/24 documented as of this encounter
--- OUTSIDE RECORDS SUMMARY | 2024-10-16 11:06 | XMS_ITS | Encounter Summary ---
Author Organization [employer] Address 75 [facility] 7t [place] [address] Care Team Providers Care Oxyacetylene Welder Name Role Phone Bea Lacey MD Primary Care Provider Mariely Dennison PharmD Unavailable [phone] Reason for Visit * Reason Onset Date Comments returning call RCT appt 06/26/2024 Encounter Details Date Type Department Care Team ([facility] st Contact Info) Description 06/26/2024 Telephone [facility] ADULT DENTAL [address] [place], [place] [phone] Sebastián Quintero, DDS [address] [place], [place] [phone] returning call RCT appt Social History Tobacco [...] Upcoming Encounters Date Type Department Care Team ([facility] st Contact Info) Description 10/17/2024 11:00 AM EDT Office Visit [facility] MED & PEDS [address] [place] [address] Bea Lacey MD [address] [place] [address] 12/14/2024 2:00 PM EDT Office Visit [facility] ADULT DENTAL [address] [place] [address] Daniele Barlow documented as of this encounter Visit Diagnoses Not on filedocumented in this encounter Additional Health Concerns Assessment Noted Time PHQ-9 Depression Total Score: 20 024 10:22 AM EDT documented as of this encounter Care Teams Oxyacetylene Welder Relationship Specialty Start Date End Date Bea Lacey MD [address] [place] [address] PCP - General Family Medicine 09/22/22 Mariely Dennison PharmD [address] [place] [address] Pharmacist Internal Medicine 07/03/24 [facility] 09/01/24 documented as of this encounter
--- OUTSIDE RECORDS SUMMARY | 2024-10-16 11:06 | XMS_ITS | Patient Health Record ---
Author Organization [facility] Address [address] [place] [address] Care Team Providers Care Battery Charger Conveyor Line Name Role Phone Jeri Stokes M.D. Primary Care Provider Madie vailable Markus Parker Unavailable [phone] Reason For Referral No Information Plan Of Treatment No Information Insurance Providers Payer Name Payer Address Payer Phone Subscriber Number Group Number Insured Name Patient Relationship to Insured Coverage Start Date Coverage End Date MEDICARE OF [facility] [address] [place] [id number] [phone] [id number] SHERLY VARGAS Self - patient is the insured
--- OUTSIDE RECORDS SUMMARY | 2024-10-16 11:06 | XMS_ITS | Encounter Summary ---
Author Organization [employer] Address [address] [facility] 7t [place] [address] Care Team Providers Care Projector Operator Name Role Phone Bea Lacey MD Primary Care Provider [phone] Mariely Dennison PharmD Unavailable [phone] Reason for Visit * Reason Comments Med Refill Encounter Details Date Type Department Care Team ([facility] st Contact Info) Description 10/12/2022 Refill [facility] MED & PEDS [address] [place], [place] [phone] Gordon Mills MD [address] [place] [address] Chronic rhinitis Social History Tobacco Use Types [...] 11:00 AM EDT Office Visit [facility] MED & PEDS [address] [place] [address] Bea Lacey MD [address] [place] [address] 12/14/2024 2:00 PM EDT Office Visit [facility] ADULT DENTAL [address] [place] [address] Daniele Barlow documented as of this encounter Visit Diagnoses Diagnosis Chronic rhinitis documented in this encounter Additional Health Concerns Assessment Noted Time PHQ-9 Depression Total Score: 7 05/29/19 23 10:45 AM EDT documented as of this encounter Care Teams Projector Operator Relationship Specialty Start Date End Date Bea Lacey MD [address] [place] [address] PCP - General Family Medicine 09/22/22 Mariely Dennison PharmD [address] [place] [address] Pharmacist Internal Medicine 07[facility]03[facility] documented as of this encounter
--- OUTSIDE RECORDS SUMMARY | 2024-10-16 11:06 | XMS_ITS | Clinical Summary ---
Author Organization [facility] Address [address] [place] [address] Care Team Providers Care Press Operator Meat Name Role Phone Bea Lacey Primary Care Provider [phone] Allergies No known active allergies Medications buPROPion [...] I'd recommend he obtain clearance from his temperature inspector given his history of multiple coronary events. I would also want to seek further clarification from his neurosurgeon as to what other clearance is being sought from the neurologist's standpoint. I will be reaching out to Dr. Payan's office. 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 [...] ual Screening 02/22/2024 Hemoglobin A1C 05/09/2024 11/10/2023 Influenza Vaccine (#1) 2024 , 11/09/2022, 12/03/2021, Additional history exists Basic Metabolic Panel 11/09/2024 11/10/2023 RSV Vaccine (60+ years old a nd patients) (1 - 1-dose 75+ series) 05/01/2027 DTaP,Tdap,and Td Vaccines (3 - Td or Tdap) 09/15/2030 09/15/2020, 08/08/2009, 09/29/2005 Hepatitis B Vaccines Completed 10/08/2016, 06/15/2016, 02/12/2016 Zoster Vaccines Completed 01/31/2019, 01/21, 11/30/2018, Additional history exists Pneumococcal Vaccine: 50+ Years Completed 09/15/2020, 10/26/2018, 04/26/2012, Additional history exists Insurance MEDICARE [facility] Care Teams Press Operator Meat Relationship Specialty Start Date End Date Bea Lacey [address] [place] [address] Z[place] Lemos [address] PCP - General Family Medicine 12/26/23
--- OUTSIDE RECORDS SUMMARY | 2024-10-16 11:06 | XMS_ITS | Encounter Summary ---
Author Organization [employer] Address [address] [facility] 7[address] [place] [address] Care Team Providers Care Marketing [employer] Name Role Phone Bea Lacey MD Primary Care Provider [phone] Mariely Dennison PharmD Unavailable [phone] Reason for Visit * Reason Onset Date Comments Results 11/16/2023 Encounter Details Date Type Department Care Team ([facility] st Contact Info) Description 11/16/2023 Telephone [facility] MEDICINE [address] [place], [place] [phone] Bea Lacey MD [address] [place], [place] [phone] Results Social History Tobacco Use Types Packs/Day [...] PM EDT Tc from pt returning call. [employer]re [employer] Drier advise previous message. Pt verbalizes understanding. * [...] results: Labs Date when done: 11/10/23 Facility: [facility] Labs documented in this encounter Plan of Treatment Upcoming Encounters Date Type Department Care Team (Late st Contact Info) Description 10/17/2024 11:00 AM EDT Office Visit [facility] MED & PEDS [address] [place] [address] Bea Lacey MD [address] [place] [address] 12/14/2024 2:00 PM EDT Office Visit [facility] ADULT DENTAL [address] [place] [address] Daniele Barlow documented as of this encounter Visit Diagnoses Not on filedocumented in this encounter Additional Health Concerns Assessment Noted Time PHQ-9 Depression Total Score: 20 024 10:22 AM EDT documented as of this encounter Care Teams Marketing [employer] Relationship Specialty Start Date End Date Bea Lacey MD [address] [place] [address] PCP - General Family Medicine 09/22/22 Mariely Dennison PharmD [address] [place] [address] Pharmacist Internal Medicine 07/03/[address] [facility] documented as of this encounter
--- OUTSIDE RECORDS SUMMARY | 2024-10-16 11:06 | XMS_ITS | Encounter Summary ---
Author Organization [employer] Address [address] [facility] 7t [place] [address] Care Team Providers Care Behavioral Health Clinician Name Role Phone Bea Lacey MD Primary Care Provider [phone] Mariely Dennison PharmD Unavailable [phone] Reason for Visit * Reason Onset Date Comments Nurse Triage 11/08/2023 Encounter Details Date Type Department Care Team ([facility] st Contact Info) Description 11/08/2023 Telephone C [facility] [address] [place], [place] [phone] Bea Lacey MD [address] [place], [place] [phone] Nurse Triage Social History Tobacco Use Types [...] accepted this outcome. Please contact pt at [phone] documented in this encounter Plan of Treatment Upcoming Encounters Date Type Department Care Team ([facility] st Contact Info) Description 10/17/2024 11:00 AM EDT [facility] [address] [place] [address] Bea Lacey MD [address] [place] [address] 12/14/2024 2:00 PM EDT Office Visit [facility] ADULT DENTAL [address] [place] [address] Daniele Barlow documented as of this encounter Visit Diagnoses Not on filedocumented in this encounter Additional Health Concerns Assessment Noted Time PHQ-9 Depression Total Score: 20 024 10:22 AM EDT documented as of this encounter Care Teams Behavioral Health Clinician Relationship Specialty Start Date End Date Bea Lacey MD [address] [place] [address] PCP - General Family Medicine 09/22/22 Mariely Dennison PharmD [address] [place] [address] Pharmacist Internal Medicine 07/03/24 [facility] 09/01/24 documented as of this encounter
--- OUTSIDE RECORDS SUMMARY | 2024-10-16 11:06 | XMS_ITS | Encounter Summary ---
Author Organization [employer] Address [address] [facility] 7t [place] [address] Care Team Providers Care Card Clothier Name Role Phone Bea Lacey MD Primary Care Provider [phone] Mariely Dennison PharmD Unavailable [phone] Encounter Details Date Type Department Care Team (Late st Contact Info) Description 07/18/2024 Orders Only [facility] [address] [place], [place] [phone] Provider, MD Tia Social History Tobacco Use [...] Description 10/17/2024 11:00 AM EDT Office Visit [facility] MED & PEDS [address] [place] [address] Bea Lacey MD [address] [place] [address] 12/14/2024 2:00 PM EDT Office Visit [facility] ADULT DENTAL [address] [place] [address] Daniele Barlow documented as of this encounter Procedures Procedure Name Priority Date/Time Associated Diagnosis Comments DIABETES EYE EXAM Routine 06/28/2024 11:09 AM EDT documented in this encounter Results * Diabetes Eye Exam (06/28/2024 11:09 AM EDT) us Historical Provider HEALTH MAINTENANCE Final Result documented in this encounter Visit Diagnoses Not on filedocumented in this encounter Additional Health Concerns Assessment Noted Time PHQ-9 Depression Total Score: 20 024 10:22 AM EDT documented as of this encounter Care Teams Card Clothier Relationship Specialty Start Date End Date Bea Lacey MD [address] [place] [address] PCP - General Family Medicine 09/22/22 Mariely Dennison PharmD [address] [place], [place] [phone] Pharmacist Internal Medicine 07/03/24 [facility] 09/01/24 documented as of this encounter
[2024-10-16 11:09] VITALS: BP 128/79; PULSE 60; RESP 16; O2SAT 94
--- NOTE | 2024-10-16 11:09 | MHC.OFFVIS ---
Vital Signs 10/16/24 11:09 Weight 196 lb BP 128/79 Blood Pressure Location Lt brachial Position Sitting Respiration 16 Pulse 60 Pulse Source Pulse Oximeter Pulse Oximetry (%) 94 Oxygen Delivery Method Room Air Intake Visit Reasons: ITDD REFILL Product Lead Required: No Allergies grass pollen Allergy (Mild, Verified 09/06/24 09:26) unknown tree and shrub pollen Allergy (Mild, Verified 09/06/24 09:26) itchy eyes, sneeze, runny nose No Known Drug Allergies Allergy (Unknown, Verified 09/06/24 09:26) none plastic tape Allergy (Unknown, Uncoded 07/04/24 13:03) irritation HPI Comments Details: Malik is in my office today for the refill of the intrathecal pain pump. Last time I decided to change intrathecal medication for this patient because he reported dizziness drowsiness and sleepiness on very small doses of the hydromorphone intrathecally. Last time I put intrathecal pain pump on the minimal rate however today patient continued to report dizziness and sleepiness. In fact patient today fell asleep in the waiting room while waiting to enter to the procedure room. I believe his drowsiness and sleepiness mostly related not to the intrathecal opioids but rather to his brain stimulating device. Initially I thought about placing patient on 12.5 micro g a day of fentanyl and giving him a bridge bolus. However it would be a big jump from the previous doses of the opioids. From minimal rate I would have to run a bridge bolus for several weeks. I decided to just put the pain pump on minimal rate and schedule appointment with the patient in 1 month. At that time he will go back to his neurologist and get his brain stimulator adjusted. Currently he receives 0.171 micro g of fentanyl a day and therefore I do not believe that this very insignificant dose of the fentanyl will affect his cognition or level of wakefulness. The volume of his intrathecal catheter 0.467 mL. Next time he is in my office I would need to compare this volume to the volume the pump already delivered starting from 39.5 mL of the fluid he received today. If the volume difference we will be more than 0.467 mL it means that the patient already is receiving fentanyl. See the pump refill as below. Prior: History of bilateral paintech sacroiliac joint stabilization with fusion. He had significant improvement however he fell in his kitchen and started to experience lot of pain again. He was sent for the x-ray of the pelvis and it appears to be that although both implantation elements are in sacroiliac joints 1 of them got shifted vertical it to the upper portion of the joint and now has a lesser chance to provide enough of the space to form the sacroiliac bridge. Most likely that is why patient started to experience pain again. We decided to treat his pain with addition of the opioids into intrathecal pain pump. For his next pump refill I will fill it up with hydromorphone 150 micro g per mL and bupivacaine 8 milligrams/mL. I will continue to increase concentration of hydromorphone until patient's satisfaction. To temporize his pain level now I will prescribe him short course of Percocet see as below. He is interested in sacroiliac joint fusion now performed by the surgeon with surgical screws. We will find out where this procedure can not be performed and we will refer patient there. He also would like to call [employer] auto service representative and ask him to increase stimulation levels on the machine Prior: This patient is very unfortunate gentleman who is suffering from multiple pain generators. He received multiple forms of treatment to concur the existing pain generators pain. He tried multiple sessions of physical therapy in the past and he continues from time to time to return to his home exercise program to help his pain. He tried multiple medications including NSAIDs muscle relaxants and opioids. NSAIDs give him severe side effects. He is very much concerned about addictive properties of opioids. He reports muscle relaxants help his pain minimally if any. He in the past was injected with multiple procedures including medial branch blocks, radiofrequency ablations, facet joint injections, and eventually he was not very satisfied with results of this injections. He was implanted with Divvyshotro spinal cord stimulator which he reports helped his pain radiating into the bilateral lower extremities. He also reported axial back pain aggravated with sitting and flexing forward and on the MRI he was discovered with Modic type changes in the lumbar spine. Intraseptal procedure was performed with good results for pain aggravated with prolonged sitting however pain which is lower than the lumbar spine in the projection of his pelvis actually getting worse background of alleviated lumbar spine pain. To treat this condition he was implanted with intrathecal pain pump however the intrathecal pain pump was not very instrumental to alleviate his pain. He still receives intrathecal pain pump bupivacaine only however reports significant and advanced pain in the projection of the bilateral sacroiliac joints. He had MRI of the lumbar spine which did not demonstrate any red flags and he did have abdominal and pelvic CT scan which did not demonstrate in pelvis any abnormalities which could be suspected as the pain generators related to sacroiliac joint, sacral bones or iliac bones. 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, lumbar region PVD (peripheral vascular disease) Mood disorder On beta ruddy at home Benign essential tremor CVA (cerebral vascular accident) IDDM (insulin dependent diabetes mellitus) Sleep apnea Chronic renal insufficiency Myocardial infarction CHF (congestive heart failure) CAD (coronary artery disease) AAA (abdominal aortic aneurysm) Arrhythmia On anticoagulant therapy Elevated cholesterol HTN (hypertension) History of ischemic cardiomyopathy 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 Surgical History (Updated 05/21/24 @ 10:18 by Niki Ortiz, CRISTELA) History of surgery History of surgery (~2023) Hx of brain surgery (05/10/24) Hx of shoulder surgery History of laparoscopic cholecystectomy (12/08/22) History of surgery History of surgery History of PTCA Hx of parathyroidectomy Hx of CABG History of hernia repair Hx of gastric bypass Hx of endoscopy History of colonoscopy Family History Father Hx of congenital heart disease Mother Hx of heat stroke Social History (Updated 05/21/24 @ 09:54 by Niki Ortiz, CRISTELA) Household Members: None Housing: Apartment Are you a primary career development associate to a significant other at home: No Do you presently have visiting nurse or other home services: Yes ([employer] 2 hours per week) Alcohol intake: current Alcohol intake frequency: does not drink Comment: counts correct Patient Tobacco Use Status: Former Tobacco user Tobacco use type: Cigarette Second Hand Smoke Exposure: No Review of Systems Const All systems reviewed & are unremarkable except as noted in HPI and below ENT Reports Normal hearing present Neuro Reports Normal hearing present and Denies Abnormal speech present Physical Exam Vital Signs: Last Vital Signs Pulse 60 10/16/24 11:09 Resp 16 10/16/24 11:09 BP 128/79 10/16/24 11:09 Pulse Ox 94 10/16/24 11:09 Oxygen Delivery Method Room Air 10/16/24 11:09 Const General: cooperative, no acute distress, alert and well groomed Orientation/consciousness: patient oriented x3 HEENT Head: Yes normocephalic and Yes atraumatic Ears: hearing grossly normal bilaterally Eyes General: appearance normal, both eyes and all related structures Eyelids: Yes eyelids normal Pupils: Equal, round and reactive pupils present EOM: EOMs intact bilaterally Neck Neck: Yes normal visual inspection and Yes no JVD Resp Effort & Inspection: normal respiratory effort, able to speak in complete sentences and no audible wheezes Cardio Jugular venous distension: no JVD Back/Spine/Pelvis Other: Tenderness of palpation paraspinal spinal region in the entire spine cervical thoracic and lumbar. SLR is negative with foot dorsiflexion. Flexing forward aggravates the pain. Flexing backwards does not change the pain. James test, Gaenslen test, pelvic compression test, pelvic destruction test, positive on the left as well as on the right. Neuro General: patient oriented x3, moves all extremities and Normal light touch and pain sensation Cranial nerves: Yes Equal, round and reactive pupils present and Yes Normal hearing present Cognition (Neuro): normal cognition Speech: No Abnormal speech present Assessment & Plan Assessment & Plan (1) Chronic left sacroiliac joint pain: Code(s): M53.3 - Sacrococcygeal disorders, not elsewhere classified; G89.29 - Other chronic pain Category: Medical (2) Sacroiliitis: Code(s): M46.1 - Sacroiliitis, not elsewhere classified Category: Medical (3) Vertebrogenic low back pain: Code(s): M54.51 - Vertebrogenic low back pain Category: Medical (4) Chronic pain syndrome: Code(s): G89.4 - Chronic pain syndrome Category: Medical (5) Poorly controlled type 2 diabetes mellitus: Code(s): E11.65 - Type 2 diabetes mellitus with hyperglycemia Category: Medical Plan: Currently pump is still on minimal rate. See discussion as above. (6) Chronic pain syndrome: Code(s): G89.4 - Chronic pain syndrome Category: Medical Plan Intrathecal pump refill . HE PATIENT CAME TODAY in the office FOR THE CHANGE OF THE MEDICATION IN her PAIN PUMP. The name and date of were verified and informed consent was obtained for the procedure. ?The pump was interrogated and the residual amount of fluid was found to be 27.9 mL. He WAS POSITIONED left lateral decubitus on the bed AND THE AREA OF THE INTRATHECAL PUMP on the right flank WAS PREPPED WITH CHLORAPREP. The fenestrated drape was sterilely applied over the area of the pump. Sterile gloves were worn and of the aspiration system was assembled containing 2 in 22 gauge noncoring needle, the needle was connected to extension tubing which was connected to the 20 cc sterile syringe. The pain pump was palpated under the skin in the patient's right upper flank under the right rib. The needle was inserted through the skin and the central plug of the pain pump and fluid was aspirated. The clear fluid was going into the syringe the total amount of the fluid was 28.4 ml. After that a new batch? of medication was obtained which was containing fentanyl 25 micro g per mL. The admixture was made in two 20 cc syringe prepared by [facility] compounding pharmacy. The syringe was connected to the bacterial filter, and then connected to the extension tubing. Flex rate of the administration of fentanyl was left at minimal rate which currently will bring the dose of fentanyl to only 0.171 micro g a day. Coding Level of Care Code Est Pt Level 3 (39474) Procedure Only Diagnoses Chronic left sacroiliac joint pain M53.3; G89.29 Sacroiliitis M46.1 Vertebrogenic low back pain M54.51 Chronic pain syndrome G89.4 Poorly controlled type 2 diabetes mellitus E11.65
== END 2024-10-16 11:11 | disposition home or self-care (01) ==
LOC: HO.PMCPRC 10:23
PROVIDERS: PCP Student in an Organized Health Care Education/Training Program; Visit Provider Anesthesiology
DX: G89.4 Chronic pain syndrome (principal); M53.3 Sacrococcygeal disorders, not elsewhere classified; M46.1 Sacroiliitis, not elsewhere classified; M54.51 Vertebrogenic low back pain; E11.65 Type 2 diabetes mellitus with hyperglycemia; Z45.1 Encounter for adjustment and management of infusion pump
CPT/HCPCS: 95991; 99213

== ENCOUNTER → 2024-10-16 10:23 | Outpatient (BNVA) | payer MEDICARE, MEDICAID, SELFPAY | PROVIDERS: PCP Student in an Organized Health Care Education/Training Program; Visit Provider Anesthesiology | DX: Z45.89 Encounter for adjustment and management of other implanted devices (principal); M53.3 Sacrococcygeal disorders, not elsewhere classified; M46.1 Sacroiliitis, not elsewhere classified; M54.51 Vertebrogenic low back pain; G89.29 Other chronic pain; E11.65 Type 2 diabetes mellitus with hyperglycemia; Z79.891 Long term (current) use of opiate analgesic | CPT/HCPCS: 99212 ==

== ENCOUNTER 2024-12-05 14:00 | Outpatient (AMB) | payer MEDICARE, MEDICAID, SELFPAY ==
[2024-12-05 14:02] VITALS: BP 132/60; PULSE 78; RESP 16; O2SAT 97; BMI 29.8
--- NOTE | 2024-12-05 14:02 | MHC.OFFVIS ---
Vital Signs 12/05/24 14:02 Height 5 ft 8 in Weight 196 lb BMI 29.8 BP 132/60 Blood Pressure Location Rt brachial Position Sitting Respiration 16 Pulse 78 Pulse Source Pulse Oximeter Pulse Oximetry (%) 97 Oxygen Delivery Method Room Air Intake Visit Reasons: Follow Up Certified Pest Control Technician Required: No Accompanied by: Self / Same As Patient Allergies grass pollen Allergy (Mild, Verified 12/05/24 14:06) unknown tree and shrub pollen Allergy (Mild, Verified 12/05/24 14:06) itchy eyes, sneeze, runny nose No Known Drug Allergies Allergy (Unknown, Verified 12/05/24 14:06) none plastic tape Allergy (Unknown, Uncoded 07/04/24 13:03) irritation HPI Comments Details: Malik is in my office today for the pain pump adjustment. He reports that his dizziness is not better. He was not able to get consult from local neurosurgeon who inserted the brain stimulation device. He is requesting me to increase the doses of the medications. Last time I placed him on minimal dose of fentanyl because of neurologist and PCP concern that intrathecal pain pump can cause drowsiness or dizziness. It is highly unlikely but I follow their recommendations. Today he came and intrathecal pump was read. I told him that we will be better off if we increase the doses gradually. With current concentration of the medication in his pump the smallest continuous dose available is 1.2 micro g a day. I introduced this dose to the patient. See the pump refill as below. Prior: History of bilateral paintech sacroiliac joint stabilization with fusion. He had significant improvement however he fell in his kitchen and started to experience lot of pain again. He was sent for the x-ray of the pelvis and it appears to be that although both implantation elements are in sacroiliac joints 1 of them got shifted vertical it to the upper portion of the joint and now has a lesser chance to provide enough of the space to form the sacroiliac bridge. Most likely that is why patient started to experience pain again. We decided to treat his pain with addition of the opioids into intrathecal pain pump. For his next pump refill I will fill it up with hydromorphone 150 micro g per mL and bupivacaine 8 milligrams/mL. I will continue to increase concentration of hydromorphone until patient's satisfaction. To temporize his pain level now I will prescribe him short course of Percocet see as below. He is interested in sacroiliac joint fusion now performed by the surgeon with surgical screws. We will find out where this procedure can not be performed and we will refer patient there. He also would [facility] to [facility] and ask him to increase stimulation levels on the machine Prior: This patient is very unfortunate gentleman who is suffering from multiple pain generators. He received multiple forms of treatment to concur the existing pain generators pain. He tried multiple sessions of physical therapy in the past and he continues from time to time to return to his home exercise program to help his pain. He tried multiple medications including NSAIDs muscle relaxants and opioids. NSAIDs give him severe side effects. He is very much concerned about addictive properties of opioids. He reports muscle relaxants help his pain minimally if any. He in the past was injected with multiple procedures including medial branch blocks, radiofrequency ablations, facet joint injections, and eventually he was not very satisfied with results of this injections. He was implanted with Nevro spinal cord stimulator which he reports helped his pain radiating into the bilateral lower extremities. He also reported axial back pain aggravated with sitting and flexing forward and on the MRI he was discovered with Modic type changes in the lumbar spine. Intraseptal procedure was performed with good results for pain aggravated with prolonged sitting however pain which is lower than the lumbar spine in the projection of his pelvis actually getting worse background of alleviated lumbar spine pain. To treat this condition he was implanted with intrathecal pain pump however the intrathecal pain pump was not very instrumental to alleviate his pain. He still receives intrathecal pain pump bupivacaine only however reports significant and advanced pain in the projection of the bilateral sacroiliac joints. He had MRI of the lumbar spine which did not demonstrate any red flags and he did have abdominal and pelvic CT scan which did not demonstrate in pelvis any abnormalities which could be suspected as the pain generators related to sacroiliac joint, sacral bones or iliac bones. 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, lumbar region PVD (peripheral vascular disease) Mood disorder On beta ruddy at home Benign essential tremor CVA (cerebral vascular accident) IDDM (insulin dependent diabetes mellitus) Sleep apnea Chronic renal insufficiency Myocardial infarction CHF (congestive heart failure) CAD (coronary artery disease) AAA (abdominal aortic aneurysm) Arrhythmia On anticoagulant therapy Elevated cholesterol HTN (hypertension) History of ischemic cardiomyopathy 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 Surgical History (Updated 05/21/24 @ 10:18 by Niki Ortiz, RN) History of surgery History of surgery (~2023) Hx of brain surgery (05/10/24) Hx of shoulder surgery History of laparoscopic cholecystectomy (12/08/22) History of surgery History of surgery History of PTCA Hx of parathyroidectomy Hx of CABG History of hernia repair Hx of gastric bypass Hx of endoscopy History of colonoscopy Family History Father Hx of congenital heart disease Mother Hx of heat stroke Social History (Updated 05/21/24 @ 09:54 by Niki Ortiz, CRISTELA) Household Members: None Housing: Apartment Are you a primary outdoor emergency care technician to a significant other at home: No Do you presently have visiting nurse or other home services: Yes ([employer] 2 hours per week) Alcohol intake: current Alcohol intake frequency: does not drink Comment: counts correct Patient Tobacco Use Status: Former Tobacco user Tobacco use type: Cigarette Second Hand Smoke Exposure: No Review of Systems Const All systems reviewed & are unremarkable except as noted in HPI and below ENT Reports Normal hearing present Neuro Reports Normal hearing present and Denies Abnormal speech present Physical Exam Vital Signs: Last Vital Signs Pulse 78 12/05/24 14:02 Resp 16 12/05/24 14:02 BP 132/60 12/05/24 14:02 Pulse Ox 97 12/05/24 14:02 Oxygen Delivery Method Room Air 12/05/24 14:02 BMI result Body Mass Index 29.8 Const General: cooperative, no acute distress, alert and well groomed Orientation/consciousness: patient oriented x3 HEENT Head: Yes normocephalic and Yes atraumatic Ears: hearing grossly normal bilaterally Eyes General: appearance normal, both eyes and all related structures Eyelids: Yes eyelids normal Pupils: Equal, round and reactive pupils present EOM: EOMs intact bilaterally Neck Neck: Yes normal visual inspection and Yes no JVD Resp Effort & Inspection: normal respiratory effort, able to speak in complete sentences and no audible wheezes Cardio Jugular venous distension: no JVD Back/Spine/Pelvis Other: Tenderness of palpation paraspinal spinal region in the entire spine cervical thoracic and lumbar. SLR is negative with foot dorsiflexion. Flexing forward aggravates the pain. Flexing backwards does not change the pain. James test, Gaenslen test, pelvic compression test, pelvic destruction test, positive on the left as well as on the right. Neuro General: patient oriented x3, moves all extremities and Normal light touch and pain sensation Cranial nerves: Yes Equal, round and reactive pupils present and Yes Normal hearing present Cognition (Neuro): normal cognition Speech: No Abnormal speech present Assessment & Plan Assessment & Plan (1) Chronic left sacroiliac joint pain: Code(s): M53.3 - Sacrococcygeal disorders, not elsewhere classified; G89.29 - Other chronic pain Category: Medical (2) Sacroiliitis: Code(s): M46.1 - Sacroiliitis, not elsewhere classified Category: Medical (3) Vertebrogenic low back pain: Code(s): M54.51 - Vertebrogenic low back pain Category: Medical (4) Chronic pain syndrome: Code(s): G89.4 - Chronic pain syndrome Category: Medical (5) Poorly controlled type 2 diabetes mellitus: Code(s): E11.65 - Type 2 diabetes mellitus with hyperglycemia Category: Medical Plan: Currently pump is still on very small right, see discussion as above. (6) Chronic pain syndrome: Code(s): G89.4 - Chronic pain syndrome Category: Medical Plan I will continue observation of this situation. Patient will come to me in 2 weeks if his dizziness and drowsiness will not be getting worse. I recommended him to get into contact with me and see me immediately if dizziness and drowsiness is getting worse. Also this patient has Nevro spinal cord stimulator. He is not using the device. He requested me to remove the device. I will schedule him for the removal procedure as soon as possible. I will use bipolar electrocautery for this procedure because I do not know what is the status of the brain stimulation device. Coding Level of Care Code Est Pt Level 3 (63970) Diagnoses Chronic left sacroiliac joint pain M53.3; G89.29 Sacroiliitis M46.1 Vertebrogenic low back pain M54.51 Chronic pain syndrome G89.4 Poorly controlled type 2 diabetes mellitus E11.65
--- OUTSIDE RECORDS SUMMARY | 2024-12-05 17:44 | XMS_ITS | Encounter Summary ---
Author Organization [employer] Address [address] [place] [address] Care Team Providers Care Medical Assembly Name Role Phone Bea Lacey MD Primary Care Provider [phone] Mariely Dennison PharmD Unavailable [phone] Reason for Visit * Reason Onset Date Comments Medication Question 02/07/2023 Encounter Details Date Type Department Care Team ([facility] st Contact Info) Description 02/07/2023 Telephone [facility] [address] [place], [place] [id number] Bea Lacey MD [address] [place], [place] [phone] Medication Question Social History Tobacco Use Types [...] of Linzess and had the med lowered [id number] last month. Pt states diarrhea has stopped [...] Care Team (Late st Contact Info) Description 12/14/2024 2:15 PM EDT Office Visit [facility] [address] [place] [address] Daniele Barlow documented as of this encounter Visit Diagnoses Not on filedocumented in this encounter Additional Health Concerns Assessment Noted Time PHQ-9 Depression Total Score: 7 05/29/19 23 10:45 AM EDT documented as of this encounter Care Teams Medical Assembly Relationship Specialty Start Date End Date Bea Lacey MD [address] [place] [id number] PCP - General Family Medicine 09/22/22 Mariely Dennison PharmD [address] [place] [address] Pharmacist Internal Medicine 07/03/24 [facility] 09/01/24 12/02/24 [facility] 11/09/24 documented as of this encounter
--- OUTSIDE RECORDS SUMMARY | 2024-12-05 17:44 | XMS_ITS | Clinical Summary ---
Author Organization [employer] Address [address] [facility] [address] [place] [address] Care Team Providers Care Build And Deployment Engineer Name Role Phone Bea Lacey MD Primary Care Provider [phone] Mariely Dennison PharmD Unavailable [phone] Allergies Active Allergy Reactions Criticality Noted Date Comments Grass Pollen(K-O-R-T-Swt [place]) 07/09/2020 Other 01/28/2022 Grass pollen, Tree and shrub pollen per previous EHR (07/09/20) Semaglutide(0.25 Or 0.5mg-Dos) Abdominal Pain High 02/10/2024 Had Pancreatitis Pollen Extract Low 07/09/2020 Other reaction(s): itchy eyes, sneeze, runny nose Medications * This document contains information received from the source organization and may not represent a complete record from that organization. Eye Itch Relief 0.025 % ophthalmic solutionIndicatio [...] 2 tablets by mouth at bedtime. Active nitroglycerin (Nitrostat) 0.[address] 1 tablet by sublingual route at the 1st sign of attack; may repeat every 5 min x 3 doses, call 911 if sx persist 02/08/2 021 Active zinc gluconate 50 MG tablet Active rivaroxaban (Xarelto) 20 MG tablet Take 1 tablet by mouth with evening meal. Active prazosin (Minipress) 5 MG capsule Take 1 capsule by mouth at bedtime. Active isosorbide mononitrate ER (Imdur) 60 MG [...] 1 Units 3 times daily. 100 each 024 Active fluticasone (Flonase) 50 MCG/ACT nasal spray INHALE ONE SPRAY IN EACH NOSTRIL TWICE DAILY NEEDED FOR ALLERGIES 48 g 4 024 Active esomeprazole (NexIUM) [address] capsule TAKE ONE CAPSULE TWICE DAILY IN THE MORNING AND AT BEDTIME 024 Active Narcan 4 MG/0.1ML nasal spray FOR SUSPECTED OPIOID OVERDOSE. SPRAY 0.1mL IN ONE NOSTRIL. REPEAT IN ALTERNATE NOSTRIL EVERY 2-3 MINUTES IF NEEDED. SEEK MEDICAL ATTENTION IMMEDIATELY EVEN IF PT RESPONDS. 024 Active TRUEplus Glucose 4 g chewable tablet Chew 4 tablets (16 g) if needed for low blood sugar 40 tablet 1 024 Active Blood Glucose Monitoring Suppl (FreeStyle [place] Lite) w/Device kit TEST BLOOD SUGAR DAILY 1 kit 025 Active FreeStyle lancets 1 each by Other [...] AT BEDTIME 360 tablet 4 025 Active Aspirin Adult Low Strength 81 MG EC tablet TAKE ONE TABLET EVERY MORNING 90 tablet 4 Active cetirizine (ZyrTEC) 10 MG tabletIndications :Chronic allergic rhinitis TAKE ONE TABLET DAILY AT NOON 30 tablet 11 Active chlorhexidine (Peridex) 0.12 % solution Swish 15 mL morning and night for 1 minute. Spit, do not swallow. Do not eat or drink for 30 minutes following use. 473 mL Active sertraline (Zoloft) 100 MG tablet TAKE 1&1/2 TABLETS AT BEDTIME Active Farxiga 10 MG Take 10 mg by mouth in the morning. Active Continuous Glucose Sensor (FreeStyle Verito 3 Plus Sensor) misc 1 each every 15 days. 2 each Active glucose blood (FreeStyle Precision Bon Test) test strip Test blood sugar up to 3 times daily as directed 100 each Active traZODone (Desyrel) 50 MG tablet Take 1.5 tablets by mouth at bedtime. Active cloNIDine (Catapres) 0.1 MG tablet Take 1 tablet by mouth if needed in the morning and at bedtime (For opiod withdrawal OR rapid heartbeat). Active pilocarpine (Salagen) 5 MG tabletIndications :Gastroesophageal reflux disease without esophagitis TAKE ONE TABLET IN THE MORNING AND EVENING 60 tablet 3 Active docusate sodium (Colace) 100 MG capsuleIndication s:Chronic idiopathic constipation TAKE ONE CAPSULE TWICE DAILY IN THE MORNING AND AT BEDTIME 60 capsule 3 Active rosuvastatin (Crestor) 40 MG tabletIndications :Mixed hyperlipidemia TAKE ONE TABLET EVERY NIGHT AT BEDTIME 30 tablet 5 Active Kerendia 20 MG tablet Take 1 tablet by mouth Once per day. Active lubiprostone (Amitiza) 8 MCG capsule Take 1 capsule by mouth 2 times daily. Active Entresto 49-51 MG tablet Take 1 tablet by mouth 2 times daily. Active famotidine (Pepcid) 40 MG tablet TAKE ONE TABLET EVERY NIGHT AT BEDTIME 90 tablet 1 Active torsemide (Demadex) 5 MG tabletIndications :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 30 tablet 2 Active sennosides (Senokot) 8.6 MG tabletIndications :Constipation, unspecified constipation type Take 1 tablet (8.6 mg) by mouth at bedtime. 30 tablet 2 025 Active baclofen (Lioresal) 10 MG tabletIndications :Muscle spasm Take 1 tablet (10 mg) by mouth 3 times daily. 90 tablet 2 Active gabapentin (Neurontin) 100 MG capsuleIndication s:Pain Take 2 capsules (200 mg) in the morning and at noon and 3 capsules (300 mg) at bedtime 210 capsule 2 Active diclofenac sodium 3 % gelIndications:Pa in Apply topically 2 times daily. 100 g 2 Active pseudoephedrine (Sudafed) 30 MG tablet Take 1 tablet (30 mg) by mouth every 4 (four) hours if needed for congestion for up to 10 days. 30 tablet Active Calcium Carb-Cholecalcife rol 600-10 MG-MCG tabletIndications :Vitamin D deficiency TAKE ONE TABLET IN THE MORNING AND EVENING 60 tablet 11 Active sucralfate (Carafate) 1 g tabletIndications :Gastroesophageal reflux disease without esophagitis Take 1 tablet (1 g) by mouth 2 times daily. TAKE ONE TABLET TWICE DAILY IN THE MORNING AND AT BEDTIME ON AN EMPTY STOMACH 60 tablet 1 025 2024 Active ketotifen (Alaway) 0.025 % ophthalmic solution Administer 1 drop into affected eye(s) if needed in the morning and at bedtime for allergies. 021 2024 Discontinued(M ed list cleanup (will not trigger notification to Pharmacy)) mirtazapine (Remeron) 7.5 MG tablet Take 1 tablet by mouth at bed time. 022 2024 Discontinued(M ed list cleanup (will not trigger notification to Pharmacy)) torsemide (Demadex) 20 MG tablet take 2 tablets AM AND PM 2024 Discontinued(M ed list cleanup (will not trigger notification to Pharmacy)) Methylnaltrexone Benoit (Relistor) 150 MG tablet 021 2024 Discontinued(M ed list cleanup (will not trigger notification to Pharmacy)) glucose 4 g chewable tablet Chew 16 g if needed for low blood sugar. 2024 Discontinued(M ed list cleanup (will not trigger notification to Pharmacy)) Calcium Carb-Cholecalcife rol (Calcium + Vitamin D3) 600-10 MG-MCG tabletIndications :Vitamin D deficiency Take 600 mg by mouth 2 times daily. TAKE ONE TABLET IN THE MORNING AND EVENING 60 tablet 11 024 2024 Discontinued famotidine (Pepcid) 40 MG tablet TAKE ONE TABLET EVERY NIGHT AT BEDTIME 90 tablet 1 025 2024 Discontinued Trulance tablet tablet Take 1 tablet by mouth Once per day. 2024 Discontinued(D iscontinued by another clinician) lisinopril 10 MG tablet TAKE ONE TABLET EVERY EVENING 025 2024 Discontinued(D iscontinued by another clinician) eplerenone (Inspra) 25 MG tablet TAKE ONE TABLET DAILY AT NOON 2024 Discontinued(D iscontinued by another clinician) hydrOXYzine HCl (Atarax) 25 MG tablet TAKE ONE TABLET TWICE DAILY NEEDED FOR ANXIETY 025 2024 Discontinued(M ed list cleanup (will not trigger notification to Pharmacy)) hydrOXYzine pamoate (Vistaril) 25 MG capsuleIndication s:Anxiety TAKE ONE CAPSULE IN THE MORNING AND EVENING NEEDED FOR ANXIETY 60 capsule 3 025 2024 Discontinued(M ed list cleanup (will not trigger notification to Pharmacy)) baclofen (Lioresal) 20 MG tabletIndications :Muscle spasm TAKE ONE TABLET AT NOON, EVENING, AND BEDTIME 90 tablet 1 025 2024 Discontinued(M ed list cleanup (will not trigger notification to Pharmacy)) sucralfate (Carafate) 1 g tabletIndications :Gastroesophageal reflux disease without esophagitis TAKE ONE TABLET TWICE DAILY IN THE MORNING AND AT BEDTIME ON AN EMPTY STOMACH 60 tablet 1 025 2024 Discontinued(R eorder (will not trigger notification to Pharmacy)) clonazePAM (KlonoPIN) 0.5 MG tabletIndications :Essential tremor TAKE ONE TABLET THREE TIME DAILY IN THE MORNING, AT NOON, AND IN THE EVENING 90 tablet 1 025 2024 Discontinued(M ed list cleanup (will not trigger notification to Pharmacy)) gabapentin (Neurontin) 300 MG capsule TAKE ONE CAPSULE THREE TIMES DAILY IN THE MORNING, EVENING AND BEDTIME 90 capsule 1 025 2024 Discontinued(M ed list cleanup (will not trigger notification to Pharmacy)) torsemide (Demadex) 5 MG tablet Take 1 tablet by mouth in the morning. 025 2024 Discontinued(R eorder (will not trigger notification to Pharmacy)) baclofen (Lioresal) 10 MG tablet Take 1 tablet by mouth 3 times daily. 2024 Discontinued(R eorder (will not trigger notification to Pharmacy)) gabapentin (Neurontin) 100 MG capsule Take 2 capsules (200 mg) in the morning and at noon and 3 capsules (300 mg) at bedtime 2024 Discontinued(R eorder (will not trigger notification to Pharmacy)) diclofenac sodium 3 % gel Apply topically 2 times daily. 2024 Discontinued(R eorder (will not trigger notification to Pharmacy)) sennosides (Senokot) 8.6 MG tablet Take 1 tablet by mouth at bedtime. 2024 Discontinued(R eorder (will not trigger notification [...] 3 months NAFLD (nonalcoholic fatty liver disease) 025 Pancreatitis 08/01/2024 Recurrent biliary colic 08/01/2024 S/P [...] to surgery has appointment next week at [facility]. On examination no warning signs Chronic abdominal [...] cataracts 01/28/2022 Bilateral tinnitus 01/28/2022 Cerebrovascular accident (CMS/HCC) 01/28/2022 Chronic atrial fibrillation (CMS/HCC) 01/28/2022 CKD stage 3 secondary to diabetes 01/28/2022 CAD in red devil artery 01/28/2022 Type 2 diabetes mellitus wit [...] CABG x 4 01/28/2022 Lumbar compression fracture (CMS/HCC) 01/28/2022 History of fracture of hand 01/28/2022 [...] Date Diagnosed Date Resolved Date Benzodiazepine dependence (CMS/HCC) 01/28/2022 08/05/2022 Continuous opioid dependence (CMS/HCC) 01/28/2022 08/05/2022 Obstructive sleep apnea syndrome 01/28/2022 06/15/2024 Encounters * This document contains information received from the source organization and may not represent a complete record from that organization. Date Type Department Care Team Description 12/03/2024 Telephone [facility] P[facility] [address] [place] [address] Bea Lacey MD 12/03/2024 Patient Outreach [facility] MEDIC[facility] [address] [place] [address] Bea Lacey MD Care Coordination (Home Health Utilization) 12/03/2024 Refill [facility] [address] [place] [address] Bea Lacey MD Gastroesophageal reflux disease without esophagitis 11/27/2024 Refill [facility] [address] [place] [address] Bea Lacey MD Gastroesophageal reflux disease without esophagitis; Essential tremor 11/21/2024 Refill [facility] [address] [place] [address] Bea Lacey MD Vitamin D deficiency 11/20/2024 Orders Only [facility] [address] [place] [address] Bea Lacey MD 11/20/2024 Telephone [facility] & PEDS [address] [place] [address] Bea Lacey MD 11/16/2024 Orders Only [facility] [address] [place] [address] Cat Dumont CNP Constipation, unspecified constipation type (Primary Dx); CKD stage 3 secondary to diabetes ([facility]); Muscle spasm; Pain 11/16/2024 Telephone [facility] [address] [place] [address] Bea Lacey MD Appointment 11/16/2024 Telephone [facility] [address] [place] [address] Bea Lacey MD 11/16/2024 Refill [facility] [address] [place] [address] eBa Lacey MD 11/15/2024 Telephone [facility] [address] [place] [address] Baylee De La Torre, PharmD 11/14/2024 Telephone [facility] [address] [place] [address] Bea Lacey MD 11/09/2024 Telephone [facility] [address] [place] [address] Bea Lacey MD Call Back Request 11/06/2024 Patient Outreach [facility] [address] [place] [address] Bea Lacey MD Transition Of Care (Tcm) (HDF - scheduled (direct)) 10/26/2024 Telephone [facility] [address] [place] [address] Bea Lacey MD No Show 10/17/2024 Travel 10/17/2024 Telephone [facility] [address] [place] [address] Bea Lacey MD No Show 10/16/2024 Telephone [facility] [address] [place] [address] Bea Lacey MD Chart Prep 10/08/2024 Telephone [facility] [address] [place] [address] Bea Lacey MD Med reconciliation 10/08/2024 Telephone [facility] [address] [place] [address] Bea Lacey MD Appointment Request 10/05/2024 Telephone [facility] [address] [place] [address] Bea Lacey MD fyi 10/03/2024 Patient Outreach [facility] [address] [place] [address] Bea Lacey MD Transition Of Care (Tcm) (HDF scheduled. ) 09/18/2024 9:15 AM EDT Office Visit [facility] [address] [place] [address] Bea Lacey MD Benign hypertension (Primary Dx); Type 2 diabetes mellitus with hyperglycemia, without long-term current use of insulin ([facility]); Essential tremor; Peripheral polyneuropathy 09/18/2024 Travel 09/17/2024 Refill [facility] [address] [place] [address] Gordon [place] MD Essential tremor 09/17/2024 Refill [facility] [address] [place] [address] Dina Gillette MD 09/17/2024 Refill [facility] [address] [place] [address] Bea Lacey MD Muscle spasm; Mixed hyperlipidemia; Gastroesophageal reflux disease without esophagitis 09/12/2024 Telephone [facility] [address] [place] [address] Bea Lacey MD Fyi 09/11/2024 Patient Outreach [facility] [address] [place] [address] Bea Lacey MD Pre-visit Planning (SDOH screening negative and Tobacco screening negative) from Last 3 Months Immunizations Immunization Administration Dates Next Due Hep B, adult 10/08/2016,06/15/2016,02/12/2016 Influenza High-dose Quadriva lent Preservative Free 11/09/2022,12/03/2021,12/11/2019 Influenza Injectable Quadriv alant Preservative Free IIV4 MDCK 12/15/2020 Influenza injectable quadriv alent IIV4 with preservative 11/02/2018,02/12/2016 Influenza injectable quadriv alent preservative free 12/28/2016,11/25/2014 Influenza, High Dose Seasona l, Preservative Free 10/31/2023,12/05/2017 Influenza, IIV3, injectable 10/31/2023,0 11/09/2022,12/03/2021,12/15,12/11/2019,11/02/2018,12/05/2017 ,12/28/2016,02/12/2016,11/25/2014,1010/2013,04/26/2012,11/13/2010, 9,03/01/2008,01/07/2006 Influenza, Split (incl. elis fied surface antigen) 11/27/2012 Influenza, Unspecified 12/03/2021,2019,11/29/2013,11/13,10/25/2008,03/01/2008,01/07/2006 Influenza, trivalent, adjuvanted 10/31/2023 Moderna Covid-19 Vaccine 12+ 05/27/2020,04/30/19 21 Pfizer Covid-19 Vaccine 12+ 11/18/2022,,12/24/2020 Pfizer Covid-19 Vaccine 12+ Bivalent 12/08/2021, 12/08/2021 Pneumococcal Conjugate PCV 13 11/05/2018, 019 Pneumococcal Polysaccharide PPSV23 09/15,04/26/2012,01/01/2006,09/29 TD (adult), 2 Lf tetanus tox oid, preservative free, adsorbed 09/15/2020,09/29/2005 Td (adult), unspecified 09/15/2020,09/29/2005 Tdap 08/08/2009 Tetanus Immune Globulin 09/15/2020 Zoster, Recombinant 01/31/2019,11/30/2018 Zoster, live 01/31/2019,11/30/2018,06/17/2014 Social [...] Description 12/14/2024 2:15 PM EDT Office Visit [facility] ADULT D[facility] [address] [place] [address] Daniele Barlow Health Maintenance Due Date Last [...] exists Influenza Vaccine (#1) 2024 , 10/31/2023, 10/31/2023, Additional history exists Dental X-Ray: Bitewings 11/09/2024 [...] X-Ray: Full Mouth 11/09/2026 11/09/2023 DTaP/Tdap/Td Vaccines (5 - Td or Tdap) 09/15/2030 09/15/2020, 09/15/2020, 09/15/2020, Additional history exists Hepatitis B Vaccines Completed 10/08/2016, 06/15/2016, 02/12/2016 Zoster Vaccines Completed 01/31/2019, 01/21, 11/30/2018, Additional history exists Hepatitis C Screening Completed 10/15/2019 Pneumococcal Vaccine: 50+ Years Completed 09/15/2020, 11/05/2018, 10/26/2018, Additional history exists HIB Vaccines Aged Out [...] hyperglycemia, without long-term current use of insulin ([facility]) DIABETES EYE EXAM Routine 06/28/2024 11:09 AM EDT PROPHYLAXIS - ADULT Routine 06/15/2024 2 :00 PM EDT PERIODIC ORAL EVALUATION - ESTABLISHED PATIENT Routine 06/15/2024 2:00 PM EDT POCT GLYCATED HEMOGLOBIN, TOTAL Routine 06/01/2024 1:53 PM EDT Type 2 diabetes mellitus with other circulatory complication, without long-term current use of insulin (CMS/[facility]) LIPID PANEL, STANDARD Routine 11/10/2023 11:22 AM [...] * POCT Glucose (09/18/2024 9:24 AM EDT) Glucose Blood, POC 197 60 - 200 mg/dL QC Media Lot # [id number] Lot# Expiration Date Blood Capillary blood specimen / Unknown 09/18/2024 9:24 AM EDT Bea Lacey MD POINT OF CARE TEST ENTER/EDIT OR DERABLES Final Result * Diabetes Eye Exam (06/28/2024 11:09 AM EDT) Tia Starks MD HEALTH MAINTENANCE Final Result * POCT HGB A1C (06/01/2024 1:53 PM EDT) Hemoglobin A1C 6.0 4.0 - 6.0 % QC Media Lot # [id number] Lot# Expiration Date [id number] Blood 06/01/2024 1:53 PM EDT Adeola Spencer MD POINT OF CARE TEST ENTER/EDIT ORDERABLES Final Result * Lipid Panel, Standard (11/10/2023 11:22 AM EDT) Triglycerides 76 <150 mg/dL [facility] Comment:Desirable Triglyceri de: less than 150 mg/dLBorderline High Triglyceride 150-199 mg/dLHigh Triglyceride: 200-499 mg/dLVery High Triglyceride: greater than or equal to 5OO mg/dL Cholesterol 110 <200 mg/dL [facility] Comment:Desirable Cholestero l: less than 200 mg/dLBorderline High Cholesterol: 200-239 mg/dLHigh Cholesterol: greater than 239 mg/dL LDL Cholesterol Calculated 50 <100 mg/dL [facility] Comment:Desirable LDL: less than 100 mg/dLNear Optimal/Above Optimal LDL: 110- 129 mg/dLBorderline High LDL: 130-159 mg/dLHigh LDL: 160-189 mg/dLVery High LDL: greater than or equal to 190 mg/dL HDL Cholesterol 45 >40 mg/dL [facility] Comment:Desirable HDL: great er than 40 mg/dL Note: This HDL assay may give artificially low results in patients with liver disease. Blood Venous blood specimen / Unknown 11/10/2023 11:22 AM EDT 11/10/2023 2:56 PM EDT Bea Lacey MD LAB BLOOD ORDERABLES Final Resul t [facility] [address] [place] [phone] * HEPATITIS C AB W/REFL TO HCV RNA, QN, PCR (10/15/2019 1:23 PM EDT) HEPATITIS C ANTIBODY NON-REACT ELLE NON-REACT ELLE [facility] INDEX 0.01 <1.00 [facility] Comment: HCV antibody was non-reactive. There is no laboratory evidence of HCV infection. In most cases, no further action is required. However, if recent HCV exposure is suspected, a test for HCV RNA (test code 56689) is suggested. For additional information please refer to http://education.[employer]/faq/CWP13k0 (This link is being provided for informational/ educational purposes only.) 10/15/2019 1:23 PM EDT Gordon Rocha MD HISTORICAL/NON ORD ERABLE LABS Final Result [facility] [address] * Hm Colonoscopy (03/14/2014 12:17 PM EST) Tia Provider HEALTH MAINTENANCE Final Result from Last 3 Months or Most Recently Relevant to Health Maintenance Insurance [place] [address] [place] [id number] [facility] MEDICAID STAND ADULT Care Teams Build And Deployment Engineer Relationship Specialty Start Date End Date Bea Lacey MD [address] [place] [address] PCP - General Family Medicine 09/22/22 Mariely Dennison PharmD [address] [place] [address] Pharmacist Internal Medicine 07/03/24 [facility] 11/09/24
--- OUTSIDE RECORDS SUMMARY | 2024-12-05 17:44 | XMS_ITS | Encounter Summary ---
Author Organization [employer] Address [address] [facility] [address] [place] [address] Care Team Providers Care Cylinder Press Operator Apprentice Name Role Phone Bea Lacey MD Primary Care Provider [phone] Mariely Dennison PharmD Unavailable [phone] Reason for Visit * Reason Onset Date Comments Med Refill 10/06/2023 Encounter Details Date Type Department Care Team (Late st Contact Info) Description 10/06/2023 Telephone [facility] [address] [place], [place] [phone] Bea Lacey MD [address] [place], [place] [phone] Med Refill Social History Tobacco Use Types [...] X 4 MM To be sent to: [facility] documented in this encounter Plan of Treatment Upcoming Encounters Date Type Department Care Team (Late st Contact Info) Description 12/14/2024 2:15 PM EDT Office Visit [facility] [address] [place] [address] Daniele Barlow documented as of this encounter Visit Diagnoses Not on filedocumented in this encounter Additional Health Concerns Assessment Noted Time PHQ-9 Depression Total Score: 20 024 10:22 AM EDT documented as of this encounter Care Teams Cylinder Press Operator Apprentice Relationship Specialty Start Date End Date Bea Lacey MD [address] [place] [address] PCP - General Family Medicine 09/22/22 Mariely Dennison PharmD [address] [place] [address] Pharmacist Internal Medicine 07/03[facility] 11/09/24 documented as of this encounter
--- OUTSIDE RECORDS SUMMARY | 2024-12-05 17:44 | XMS_ITS | Encounter Summary ---
Author Organization [employer] Address [address] [facility] [address] [place] [address] Care Team Providers Care Automotive Refinish Technician Name Role Phone Bea Lacey MD Primary Care Provider Mariely Dennison PharmD Unavailable [phone] Reason for Visit * Reason Onset Date Comments Nurse Triage 03/05/2024 Encounter Details Date Type Department Care Team ([facility] st Contact Info) Description 03/05/2024 Telephone [facility] [address] [place], [place] [phone] Bea Lacey MD [address] [place], [place] [phone] Nurse Triage Social History Tobacco Use Types [...] Description 12/14/2024 2:15 PM EDT Office Visit [facility] ADULT D[facility] [address] [place] [address] Daniele Barlow documented as of this encounter Visit Diagnoses Not on filedocumented in this encounter Additional Health Concerns Assessment Noted Time PHQ-9 Depression Total Score: 20 024 10:22 AM EDT documented as of this encounter Care Teams Automotive Refinish Technician Relationship Specialty Start Date End Date Bea Lacey MD [address] [place] [address] PCP - General Family Medicine 09/22/22 Mariely Dennison, [place] [address] [place] [address] Pharmacist Internal Medicine 07/03/24 [facility]/02/24 [facility] 11/09/24 documented as of this encounter
--- OUTSIDE RECORDS SUMMARY | 2024-12-05 17:44 | XMS_ITS | Encounter Summary ---
Author Organization [employer] Address [address] [facility] 7t [place] [address] Care Team Providers Care Septic Tank Setter Name Role Phone Gordon Mills MD Primary Care Prov ider Bea Lacey MD Primary Care Provider [phone] Mariely Dennison PharmD Unavailable [phone] Reason for Referral * Social Care Application (Routine) - Closed Specialty Diagnoses / Procedures Referred By Contac t Referred To Contact Diabetic / Diabetes Services Diagnoses Type 2 diabetes mellitus with hyperglycemia, without long-term current use of insulin (HCC) Peter Barlow MD [address] [place] [address] Phone: tel: fax: Referral ID Status Reason Start Date Expiration Date V isits Requested Visits Authorized [id number] Closed Specialty Services Required 09/02/2022 03/01/2023 1 1 Encounter Details Date Type Department Care Team ([facility] st Contact Info) Description 09/02/2022 Orders Only [facility] [address] [place] [address] Peter Barlow MD [address] [place], [place] [phone] Type 2 diabetes mellitus with hyperglycemia, without [...] Upcoming Encounters Date Type Department Care Team ([facility] st Contact Info) Description 12/14/2024 2:15 PM EDT Office Visit [facility] [address] [place] [address] Daniele Barlow Scheduled Referrals Name Type Priority Associated Diagnoses Order Schedule Referral to Diabetes Prevention Program Outpatient Referral Routine Type 2 diabetes mellitus with hyperglycemia, without long-term current use of insulin ([facility]/HCC) Ordered: 09/02/2022 documented as of this encounter Visit Diagnoses Diagnosis Type 2 diabetes mellitus with hyperglycemia, without long-term current use of insulin (HCC)- Primary documented in this encounter Additional Health Concerns Assessment Noted Time PHQ-9 Depression Total Score: 7 05/29/19 23 10:45 AM EDT documented as of this encounter Care Teams Septic Tank Setter Relationship Specialty Start Date End Date Gordon Mills MD [address] [place] [address] PCP - General Internal Medicine 07/12/19 09/21/22 Bea Lacey MD [address] [place] [address] PCP - General Family Medicine 09/22/22 Mariely Dennison PharmD [address] [place] [address] Pharmacist Internal Medicine 07/03/24 [facility] 09/01/24 12/02/24 [facility] 11/09/24 documented as of this encounter
--- OUTSIDE RECORDS SUMMARY | 2024-12-05 17:44 | XMS_ITS | Encounter Summary ---
Author Organization [facility] Address [id number] [place] [address] Care Team Providers Care Gas Shovel Operator Name Role Phone Bea Lacey MD Primary Care Provider [phone] Encounter Details Date Type Department Care Team (Late st Contact Info) Description 11/11/2024 Lab Requisition [facility] - Main Lab [address] [facility] [place] [address] Lupe Cruz MD [address] [phone] Anemia, unspecified; Other disorders of electrolyte and fluid balance, not elsewhere classified Social History Tobacco Use Types Packs/Day Years Used Date Smoking Tobacco: Never Assessed Sex and Gender Information Value Date Recorded Sex Assigned at Not on file Legal Sex Male 10:31 AM EST Gender Identity Not on file Sexual Orientation Not on file documented as of this encounter Plan of Treatment Not on file documented as of this encounter Visit Diagnoses Diagnosis Anemia, unspecified Other disorders of electrolyte and fluid balance, not elsewhere classified documented in this encounter Care Teams Gas Shovel Operator Relationship Specialty Start Date End Date Bea Lacey MD [address] [place] [address] PCP - General 04/04/23 documented as of this encounter
--- OUTSIDE RECORDS SUMMARY | 2024-12-05 17:44 | XMS_ITS | Clinical Summary ---
Author Organization [facility] Address [address] [place] [address] Care Team Providers Care Stations Superintendent Name Role Phone Bea Lacey Primary Care Provider [phone] Allergies No known active allergies Medications buPROPion [...] I'd recommend he obtain clearance from his regional project manager given his history of multiple coronary events. I would also want to seek further clarification from his neurosurgeon as to what other clearance is being sought from the neurologist's standpoint. I will be reaching out to Dr. Payan's office. 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 [facility] Lupe ual Screening 02/22/2024 Hemoglobin A1C 05/09/2024 11/10/2023 COVID-19 Vaccine (6 - 2024-2 6 season) 2024 11/18/2022, 12/08/2021, 12/24/2020, Additional history exists Influenza Vaccine (#1) 2024 , 11/09/2022, 12/03/2021, [...] 10/26/2018, 04/26/2012, Additional history exists Insurance MEDICARE [facility] Care Teams Stations Superintendent Relationship Specialty Start Date End Date Bea Lacey [address] [place] [address] ZACH Lemos [address] PCP - General Family Medicine 12/26/23
--- OUTSIDE RECORDS SUMMARY | 2024-12-05 17:44 | XMS_ITS | Encounter Summary ---
Author Organization [employer] Address 75 [facility] 7t [place] [address] Care Team Providers Care Printing Table Worker Name Role Phone Bea Lacey MD Primary Care Provider [phone] Mariely Dennison PharmD Unavailable [phone] Reason for Visit * Reason Comments Med Refill Encounter Details Date Type Department Care Team (Late st Contact Info) Description 10/11/2022 Refill [facility] MED & PEDS [address] [place] [address] Bea Lacey MD [address] [place] [address] Chronic rhinitis Social History Tobacco Use Types [...] Description 12/14/2024 2:15 PM EDT Office Visit [facility] ADULT DENTAL [address] [place] [address] Daniele Barlow documented as of this encounter Visit Diagnoses Diagnosis Chronic rhinitis documented in this encounter Additional Health Concerns Assessment Noted Time PHQ-9 Depression Total Score: 7 05/29/19 23 10:45 AM EDT documented as of this encounter Care Teams Printing Table Worker Relationship Specialty Start Date End Date Bea Lacey MD [address] [place] [address] PCP - General Family Medicine 09/22/22 Mariely Dennison PharmD [address] [place] [address] Pharmacist Internal Medicine 07/03/24 [facility] 09/01/24 12/02/24 [facility] 11/09/24 documented as of this encounter
--- OUTSIDE RECORDS SUMMARY | 2024-12-05 17:44 | XMS_ITS | Encounter Summary ---
Author Organization [employer] Address [address] [facility] 7t [place] [address] Care Team Providers Care Rehabilitation Supervisor Name Role Phone Bea Lacey MD Primary Care Provider [phone] Mariely Dennison PharmD Unavailable [phone] Encounter Details Date Type Department Care Team (Late st Contact Info) Description 07/14/2023 Orders Only [facility] MED & PEDS [address] [place], [place] [phone] ProviderTia MD Social History Tobacco Use Types [...] Description 12/14/2024 2:15 PM EDT Office Visit [facility] ADULT DENTAL [address] [place] [address] Daniele Barlow documented as of this encounter [...] documented as of this encounter Care Teams Rehabilitation Supervisor Relationship Specialty Start Date End Date Bea Lacey MD [address] [place] [address] PCP - General Family Medicine 09/22/22 Mariely Dennison PharmD [address] [place] [address] Pharmacist Internal Medicine 07/03/24 [facility] 09/01/24 12/02/24 [facility] 11/09/24 documented as of this encounter
--- OUTSIDE RECORDS SUMMARY | 2024-12-05 17:44 | XMS_ITS | Encounter Summary ---
Author Organization [employer] Address [address] [facility] 7t [place] [address] Care Team Providers Care Aoc Operations Intelligence Officer Name Role Phone Bea Lacey MD Primary Care Provider [phone] Mariely Dennison PharmD Unavailable [phone] Reason for Visit * Reason Comments Med Refill Encounter Details Date Type Department Care Team ([facility] st Contact Info) Description 03/30/2024 Refill [facility] MED & PEDS [address] [place], [place] [phone] Bea Lacey MD [address] [place], [place] [phone] Essential tremor Social History Tobacco Use Types [...] Description 12/14/2024 2:15 PM EDT Office Visit [facility] ADULT D[facility] [address] [place] [address] Daniele Barlow documented as of this encounter Visit Diagnoses Diagnosis Essential tremor documented in this encounter Additional Health Concerns Assessment Noted Time PHQ-9 Depression Total Score: 20 024 10:22 AM EDT documented as of this encounter Care Teams Aoc Operations Intelligence Officer Relationship Specialty Start Date End Date Bea Lacey MD [address] [place] [address] PCP - General Family Medicine 09/22/22 Mariely Dennison PharmD [address] [place] [address] Pharmacist Internal Medicine 07/03/24 [facility] 09/01/24 12/02/24 [facility] 11/09/24 documented as of this encounter
--- OUTSIDE RECORDS SUMMARY | 2024-12-05 17:44 | XMS_ITS | Encounter Summary ---
Author Organization [employer] Address [address] [facility] 7t [place] [address] Care Team Providers Care Court Interpreter Name Role Phone Bea Lacey MD Primary Care Provider [phone] Mariely Dennison PharmD Unavailable [phone] Reason for Visit * Reason Onset Date Comments Nurse Triage 02/08/2024 Encounter Details Date Type Department Care Team ([facility] st Contact Info) Description 02/08/2024 Telephone [facility] MEDICINE [address] [place], [place] [phone] Bea Lacey MD [address] [place], [place] [phone] Nurse Triage Social History Tobacco Use Types [...] 12/14/2024 2:15 PM EDT Office Visit [facility] ADULT D[facility] [address] [place] [address] Daniele Barlow documented as of this encounter Visit Diagnoses Not on filedocumented in this encounter Additional Health Concerns Assessment Noted Time PHQ-9 Depression Total Score: 20 024 10:22 AM EDT documented as of this encounter Care Teams Court Interpreter Relationship Specialty Start Date End Date Bea Lacey MD [address] [place] [address] PCP - General Family Medicine 09/22/22 Mariely Dennison PharmD [address] [place] [address] Pharmacist Internal Medicine 07/03/24 [facility] 09/01/24 12/02/24 [facility] 11/09/24 documented as of this encounter
--- OUTSIDE RECORDS SUMMARY | 2024-12-05 17:44 | XMS_ITS | Encounter Summary ---
Author Organization [employer] Address [address] [facility] 7t [place] [address] Care Team Providers Care Wool Hanker Name Role Phone Bea Lacey MD Primary Care Provider [phone] Mariely Dennison PharmD Unavailable [phone] Reason for Visit * Reason Comments Med Refill Encounter Details Date Type Department Care Team ([facility] st Contact Info) Description 02/06/2024 Refill [facility] [address] [place], [place] [phone] Bea Lacey MD [address] [place], [place] [phone] Type 2 diabetes mellitus with hyperglycemia, without long-term current use of insulin ([facility]) Social History Tobacco Use Types Packs/Day [...] Description 12/14/2024 2:15 PM EDT Office Visit [facility] ADULT DENTAL [address] [place] [address] Daniele Barlow documented as of this encounter Visit Diagnoses Diagnosis Type 2 diabetes mellitus with hyperglycemia, without long-term current use of insulin (HCC) documented in this encounter Additional Health Concerns Assessment Noted Time PHQ-9 Depression Total Score: 20 024 10:22 AM EDT documented as of this encounter Care Teams Wool Hanker Relationship Specialty Start Date End Date Bea Lacey MD [address] [place] [address] PCP - General Family Medicine 09/22/22 Mariely Dennison PharmD [address] [place] [address] Pharmacist Internal Medicine 07/03/24 [facility] 09/01/24 12/02/24 [facility] 11/09/24 documented as of this encounter
--- OUTSIDE RECORDS SUMMARY | 2024-12-05 17:44 | XMS_ITS | Encounter Summary ---
Author Organization [facility] Address [address] [place] [address] Care Team Providers Care Locomotive Switch Operator Name Role Phone Bea Lacey MD Primary Care Provider [phone] Encounter Details Date Type Department Care Team (Late st Contact Info) Description 10/30/2024 Lab Requisition [facility] - Main Lab [address] [place] [address] Lupe Cruz MD [address] [phone] Anemia, unspecified; Other disorders of electrolyte and [...] on file documented as of this encounter Procedures Procedure Name Priority Date/Time Associated Diagnosis Comments COMPLETE BLOOD COUNT Routine 10/30/2024 7:56 AM EDT Anemia, unspecified Other disorders of electrolyte and fluid balance, not elsewhere classified COMPREHENSIVE METABOLIC PANEL Routine 10/30/2024 7:56 AM EDT Anemia, unspecified Other disorders of electrolyte and fluid balance, not elsewhere classified documented in this encounter Results * (ABNORMAL) Comprehensive metabolic panel (10/30/2024 7:56 AM EDT) Sodium 137 133 - 145 mmol/L LAB CHEMISTRY METHOD 10/30/2024 12:50 PM EDT [facility] Potassium 3.9 3.5 - 5.5 mmol/L LAB CHEMISTRY METHOD 10/30/2024 12:50 PM [facility] Chloride 104 96 - 110 mmol/L LAB CHEMISTRY METHOD 10/30/2024 12:50 PM [facility] CO2 25 21 - 32 mmol/L LAB CHEMISTRY METHOD 10/30/2024 12:50 PM [facility] Anion Gap 8 3 - 11 LAB CHEMISTRY METHOD 10/30/2024 12:50 PM [facility] Glucose 155(H) 70 - 100 mg/dL LAB CHEMISTRY METHOD 10/30/2024 12:50 PM [facility] BUN 16 5 - 25 mg/dL LAB CHEMISTRY METHOD 10/30/2024 12:50 PM [facility] Creatinine 1.02 0.70 - 1.30 mg/dL LAB CHEMISTRY METHOD 10/30/2024 12:50 PM [facility] eGFR 78 >=60 mL/min/1. 73m2 LAB CHEMISTRY METHOD 10/30/2024 12:50 PM [facility] Comment:Calculation based on the Chronic Kidney Disease Epidemiology Collaboration (CKD-EPI) equation refit without adjustment for race. BUN/Creatinine Ratio 15.7 LAB CHEMISTRY METHOD 10/30/2024 12:50 PM [facility] Calcium 9.4 8.5 - 10.5 mg/dL LAB CHEMISTRY METHOD 10/30/2024 12:50 PM [facility] AST (SGOT) 22 10 - 42 unit/L LAB CHEMISTRY METHOD 10/30/2024 12:50 PM [facility] ALT (SGPT) 32 10 - 60 unit/L LAB CHEMISTRY METHOD 10/30/2024 12:50 PM [facility] Alkaline Phosphatase 167(H) 42 - 121 unit/L LAB CHEMISTRY METHOD 10/30/2024 12:50 PM [facility] Total Protein 7.3 6.0 - 8.0 g/dL LAB CHEMISTRY METHOD 10/30/2024 12:[address] [facility] Albumin 3.9 3.2 - 5.0 g/dL LAB CHEMISTRY METHOD 10/30/2024 12:[address] [facility] Total Bilirubin 0.6 0.0 - 1.4 mg/dL LAB CHEMISTRY METHOD 10/30/2024 12:[address] [facility] Blood Venous blood specimen / Unknown Venipuncture / Unknown 10/30/2024 7:56 AM EDT 10/30/2024 10:49 AM EDT us Lupe Cruz MD LAB BLOOD ORDERABLES Fin al Result [facility] [address] [place] [address], * (ABNORMAL) Complete blood count (10/30/2024 7:56 AM EDT) WBC 10.0 4.8 - 10.8 K/mcL LAB HEMETOLOGY METHOD 10/30/2024 11:29 AM [facility] RBC 5.80(H) 4.50 - 5.50 M/mcL LAB HEMETOLOGY METHOD 10/30/2024 11:29 AM [facility] Hemoglobin 14.9 13.5 - 17.5 g/dL LAB HEMETOLOGY METHOD 10/30/2024 11:29 AM [facility] Hematocrit 48.6 42.0 - 54.0 % LAB HEMETOLOGY METHOD 10/30/2024 11:29 AM [facility] MCV 84.5 79.0 - 98.0 FL LAB HEMETOLOGY METHOD 10/30/2024 11:29 AM [facility] MCH 25.9(L) 27.0 - 32.0 pcg LAB HEMETOLOGY METHOD 10/30/2024 11:[address] [facility] MCHC 30.7(L) 32.0 - 37.0 g/dL LAB HEMETOLOGY METHOD 10/30/2024 11:[address] [facility] RDW 17.6(H) 11.0 - 15.0 % LAB HEMETOLOGY METHOD 10/30/2024 11:[address] [facility] Platelets 313 130 - 400 K/mcL LAB HEMETOLOGY METHOD 10/30/2024 11:[address] [facility] MPV 10.7 7.0 - 11.0 FL LAB HEMETOLOGY METHOD 10/30/2024 11:[address] [facility] NRBC 0.0 <1.0 % LAB HEMETOLOGY METHOD 10/30/2024 11:[address] [facility] NRBC Absolute 0.00 <0.10 K/mcL LAB HEMETOLOGY METHOD 10/30/2024 11:[address] [facility] Blood Venous blood specimen / Unknown Venipuncture / Unknown 10/30/2024 7:56 AM EDT 10/30/2024 10:49 AM EDT us Lupe Cruz MD LAB BLOOD ORDERABLES Fin al Result [facility] [address] [place] [address], documented in this encounter Visit Diagnoses Diagnosis Anemia, unspecified Other disorders of electrolyte and fluid balance, not elsewhere classified documented in this encounter Care Teams Locomotive Switch Operator Relationship Specialty Start Date End Date Bea Lacey MD [address] [place] [address] PCP - General 04/04/23 documented as of this encounter
--- OUTSIDE RECORDS SUMMARY | 2024-12-05 17:44 | XMS_ITS | Encounter Summary ---
Author Organization [employer] Address [address] [facility] 7t [place] [address] Care Team Providers Care Education Consultant Name Role Phone Bea Lacey MD Primary Care Provider [phone] Mariely Dennison PharmD Unavailable [phone] Reason for Visit * Reason Onset Date Comments FYI 08/30/2024 Encounter Details Date Type Department Care Team ([facility] st Contact Info) Description 08/30/2024 Telephone [facility] MEDICINE [address] [place], [place] [address] Bea Lacey MD [address] [place], [place] [phone] FY Social History Tobacco Use Types Packs/Day Years [...] - 08/30/2024 12:38 PM EDT Tc from [place] with [facility] calling to inform pcp that pt has been referred to their services for at home PT and will be starting care on 08/31. documented in this encounter Plan of Treatment Upcoming Encounters Date Type Department Care Team (Late st Contact Info) Description 12/14/2024 2:15 PM EDT Office Visit [facility] ADULT D[facility] [address] [place] [address] Daniele Barlow documented as of this encounter Visit Diagnoses Not on filedocumented in this encounter Additional Health Concerns Assessment Noted Time PHQ-9 Depression Total Score: 20 024 10:22 AM EDT documented as of this encounter Care Teams Education Consultant Relationship Specialty Start Date End Date Bea Lacey MD [address] [place] [address] PCP - General Family Medicine 09/22/22 Mariely Dennison, PharmD [address] [place] [address] Pharmacist Internal Medicine 07[facility]03[facility]24 [facility] 11/09/24 documented as of this encounter
--- OUTSIDE RECORDS SUMMARY | 2024-12-05 17:44 | XMS_ITS | Encounter Summary ---
Author Organization [employer] Address [address] [facility] 7t [place] [address] Care Team Providers Care Manager Mobility Name Role Phone Bea Lacey MD Primary Care Provider [phone] Mariely Dennison PharmD Unavailable [phone] Reason for Visit * Reason Onset Date Comments Glucose Monetor 10/08/2022 Encounter Details Date Type Department Care Team ([facility] st Contact Info) Description 10/08/2022 Telephone [facility] [address] [place], [place] [phone] Bea Lacey MD [address] [place] [address] Glucose Monetor Social History Tobacco Use Types [...] call to patient who is requesting a Analyze Ree two Sensor. Pt states it will make it easier for him due to difficulty pinching. Pt would like it to be sent to [facility], pt provided number . Patient also stated that he wants a prescription for pseudoephedrine fornasal congestion and runny nose. This message will be forwarded to provider. * Telephone Encounter - Lxei Mckinnon Dustin - 10/08/2022 8:21 AM EDT Tc from pt requesting a Analyze Ree two Sensor. Pt states it will make it easier for him due todifficulty pinching. Pt would like it to be sent to [facility], pt provided number Please contact pt at [phone] documented in this encounter Plan of Treatment Upcoming Encounters Date Type Department Care Team (Late st Contact Info) Description 12/14/2024 2:15 PM EDT Office Visit [facility] ADULT D[facility]AL [address] [place] [address] Daniele Barlow documented as of this encounter Visit Diagnoses Not on filedocumented in this encounter Additional Health Concerns Assessment Noted Time PHQ-9 Depression Total Score: 7 05/29/19 23 10:45 AM EDT documented as of this encounter Care Teams Manager Mobility Relationship Specialty Start Date End Date Bea Lacey MD [address] [place] [address] PCP - General Family Medicine 09/22/22 Mariely Dennison PharmD [address] [place] [address] Pharmacist Internal Medicine 07/03/24 [facility] 09/01/24 12/02/24 [facility] 11/09/24 documented as of this encounter
--- OUTSIDE RECORDS SUMMARY | 2024-12-05 17:44 | XMS_ITS | Encounter Summary ---
Author Organization [facility] Address [address] [place] [address] Care Team Providers Care Health Sciences Dean Name Role Phone Bea Lacey MD Primary Care Provider [phone] Encounter Details Date Type Department Care Team (Late st Contact Info) Description 11/04/2024 Lab Requisition [facility] - Main Lab [address] [place] [address] Lupe Cruz MD [address] [id number] Anemia, unspecified; Other disorders of electrolyte and [...] Associated Diagnosis Comments COMPLETE BLOOD COUNT Routine 11/05/2024 6:38 AM EDT Anemia, unspecified Other disorders of electrolyte and fluid balance, not elsewhere classified COMPREHENSIVE METABOLIC PANEL Routine 11/05/2024 6:38 AM EDT Anemia, unspecified Other disorders of electrolyte and fluid balance, not elsewhere classified documented in this encounter Results * (ABNORMAL) Comprehensive metabolic panel (11/05/2024 6:38 AM EDT) Sodium 140 133 - 145 mmol/L LAB CHEMISTRY METHOD 11/05/2024 2:08 PM EDT [facility] Potassium 4.1 3.5 - 5.5 mmol/L LAB CHEMISTRY METHOD 11/05/2024 2:08 PM [facility] Chloride 106 96 - 110 mmol/L LAB CHEMISTRY METHOD 11/05/2024 2:08 PM [facility] CO2 29 21 - 32 mmol/L LAB CHEMISTRY METHOD 11/05/2024 2:08 PM [facility] Anion Gap 5 3 - 11 LAB CHEMISTRY METHOD 11/05/2024 2:08 PM [facility] Glucose 124(H) 70 - 100 mg/dL LAB CHEMISTRY METHOD 11/05/2024 2:08 PM [facility] BUN 12 5 - 25 mg/dL LAB CHEMISTRY METHOD 11/05/2024 2:08 PM [facility] Creatinine 0.83 0.70 - 1.30 mg/dL LAB CHEMISTRY METHOD 11/05/2024 2:08 PM [facility] eGFR 93 >=60 mL/min/1. 73m2 LAB CHEMISTRY METHOD 11/05/2024 2:08 PM [facility] Comment:Calculation based on the Chronic Kidney Disease Epidemiology Collaboration (CKD-EPI) equation refit without adjustment for race. BUN/Creatinine Ratio 14.5 LAB CHEMISTRY METHOD 11/05/2024 2:08 PM [facility] Calcium 8.5 8.5 - 10.5 mg/dL LAB CHEMISTRY METHOD 11/05/2024 2:08 PM [facility] AST (SGOT) 21 10 - 42 unit/L LAB CHEMISTRY METHOD 11/05/2024 2:08 PM [facility] ALT (SGPT) 24 10 - 60 unit/L LAB CHEMISTRY METHOD 11/05/2024 2:08 PM [facility] Alkaline Phosphatase 124(H) 42 - 121 unit/L LAB CHEMISTRY METHOD 11/05/2024 2:08 PM [facility] Total Protein 6.0 6.0 - 8.0 g/dL LAB CHEMISTRY METHOD 11/05/2024 2:08 PM EDT [facility] Albumin 3.1(L) 3.2 - 5.0 g/dL LAB CHEMISTRY METHOD 11/05/2024 2:08 PM EDT [facility] Total Bilirubin 0.4 0.0 - 1.4 mg/dL LAB CHEMISTRY METHOD 11/05/2024 2:08 PM EDT [facility] Blood Venous blood specimen / Unknown Venipuncture / Unknown 11/05/2024 6:38 AM EDT 11/05/2024 11:53 AM EDT us Lupe Cruz MD LAB BLOOD ORDERABLES Fin al Result [facility] [address] [place] [address], * (ABNORMAL) Complete blood count (11/05/2024 6:38 AM EDT) WBC 4.6(L) 4.8 - 10.8 K/mcL LAB HEMETOLOGY METHOD [facility] RBC 4.80 4.50 - 5.50 M/mcL LAB HEMETOLOGY METHOD 11/05/2024 1:08 PM [facility] Hemoglobin 12.6(L) 13.5 - 17.5 g/dL LAB HEMETOLOGY METHOD 11/05/2024 1:08 PM EDT [facility] Hematocrit 41.3(L) 42.0 - 54.0 % LAB HEMETOLOGY METHOD 11/05/2024 1:08 PM EDT [facility] MCV 85.9 79.0 - 98.0 FL LAB HEMETOLOGY METHOD 11/05/2024 1:08 PM [facility] MCH 26.2(L) 27.0 - 32.0 pcg LAB HEMETOLOGY METHOD 11/05/2024 1:08 PM EDT [facility] MCHC 30.5(L) 32.0 - 37.0 g/dL LAB HEMETOLOGY METHOD 11/05/2024 1:08 PM EDT [facility] RDW 17.2(H) 11.0 - 15.0 % LAB HEMETOLOGY METHOD 11/05/2024 1:08 PM EDT [facility] Platelets 268 130 - 400 K/mcL LAB HEMETOLOGY METHOD 11/05/2024 1:08 PM EDT [facility] MPV 11.3(H) 7.0 - 11.0 FL LAB HEMETOLOGY METHOD 11/05/2024 1:08 PM EDT [facility] NRBC 0.0 <1.0 % LAB HEMETOLOGY METHOD 11/05/2024 1:08 PM EDT [facility] NRBC Absolute 0.00 <0.10 K/mcL LAB HEMETOLOGY METHOD 11/05/2024 1:08 PM EDT [facility] Blood Venous blood specimen / Unknown Venipuncture / Unknown 11/05/2024 6:38 AM EDT 11/05/2024 11:55 AM EDT us Lupe Cruz MD LAB BLOOD ORDERABLES Fin al Result [facility] [address] [place] [address], [place] [phone] documented in this encounter Visit Diagnoses Diagnosis Anemia, unspecified Other disorders of electrolyte and fluid balance, not elsewhere classified documented in this encounter Care Teams Health Sciences Dean Relationship Specialty Start Date End Date Bea Lacey MD [address] [place] [id number] PCP - General 04/04/23 documented as of this encounter
--- OUTSIDE RECORDS SUMMARY | 2024-12-05 17:44 | XMS_ITS | Clinical Summary ---
Author Organization [facility] Address [address] [place] [phone] Phone Care Team Providers Care Churn Operator Margarine Name Role Phone Halle Fontenot MD Primary Care Provider [phone] Social History Tobacco Use Types Packs/Day Years [...] 09/15/2021 09/15/2020, 04/26/2012, 01/01/2006, Additional history exists INFLUENZA VACCINE (#1) 2024 COVID-19 VACCINE ( - 2024- season) 2024 RSV VACCINE (1 - 1-dose 75+ [...] topic Medical Devices Not on file Insurance [facility] MEDIC[facility] PART A & [facility] & [facility] PART [facility] & [facility] & B [place] MED[place]ARE PART A & B Care Teams Churn Operator Margarine Relationship Specialty Start Date End Date Halle Fontenot MD [address] [place] [address] PCP - General Family Medicine 03/09/23 Additional Source Comments The information contained in this document represents components of the legal health record. It is not the complete legal health record.[facility]
--- OUTSIDE RECORDS SUMMARY | 2024-12-05 17:44 | XMS_ITS | Encounter Summary ---
Author Organization [employer] Address [address] [facility] 7t [place] [address] Care Team Providers Care Corporate Legal Manager Name Role Phone Bea Lacey MD Primary Care Provider [phone] Mariely Dennison PharmD Unavailable [phone] Reason for Visit * Reason Onset Date Comments Results 03/30/2023 Encounter Details Date Type Department Care Team ([facility] st Contact Info) Description 03/30/2023 Telephone [facility] MEDICINE [address] [place], [place] [phone] Bea Lacey MD [address] [place], [place] [phone] Results Social History Tobacco Use Types Packs/Day [...] [facility] ADULT DENTAL [address] [place] [address] Daniele Barlow documented as of this encounter Visit Diagnoses Not on filedocumented in this encounter Additional Health Concerns Assessment Noted Time PHQ-9 Depression Total Score: 7 05/29/19 23 10:45 AM EDT documented as of this encounter Care Teams Corporate Legal Manager Relationship Specialty Start Date End Date Bea Lacey MD [address] [place] [address] PCP - General Family Medicine 09/22/22 Mariely Dennison PharmD [address] [place] [address] Pharmacist Internal Medicine 07/03/24 [facility] 09/01/24 12/02/24 [facility] 11/09/24 documented as of this encounter
--- OUTSIDE RECORDS SUMMARY | 2024-12-05 17:44 | XMS_ITS | Encounter Summary ---
Author Organization [employer] Address [address] [facility] 7t [place] [address] Care Team Providers Care Assembly Line Brazer Name Role Phone Bea Lacey MD Primary Care Provider [phone] Mariely Dennison PharmD Unavailable [phone] Reason for Visit * Reason Comments Med Refill Encounter Details Date Type Department Care Team ([facility] st Contact Info) Description 03/16/2024 Refill [facility] MED & PEDS [address] [place], [place] [phone] Bea Lacey MD [address] [place], [place] [phone] Social History Tobacco Use Types Packs/Day Years [...] 12/14/2024 2:15 PM EDT Office Visit [facility] ADULT D[facility]AL [address] [place] [address] Daniele Barlow documented as of this encounter Visit Diagnoses Not on filedocumented in this encounter Additional Health Concerns Assessment Noted Time PHQ-9 Depression Total Score: 20 024 10:22 AM EDT documented as of this encounter Care Teams Assembly Line Brazer Relationship Specialty Start Date End Date Bea Lacey MD [address] [place] [id number] PCP - General Family Medicine 09/22/22 Mariely Dennison PharmD [address] [place] [address] Pharmacist Internal Medicine 07/03/24 [facility] 09/01/24 12/02/24 [facility] 11/09/24 documented as of this encounter
--- OUTSIDE RECORDS SUMMARY | 2024-12-05 17:44 | XMS_ITS | Encounter Summary ---
Author Organization [facility] Address [address] [facility] [address] [place] [phone] Phone Care Team Providers Care Acetaldehyde Converter Operator Name Role Phone Halle Fontenot MD Primary Care Provider Encounter Details Date Type Department Care Team (Late st Contact Info) Description 01/27/2024 Procedure Pass [facility] PERIOPERATIVE DEPT [address] [place] [id number] Social History Tobacco Use Types Packs/Day Years [...] on filedocumented in this encounter Care Teams Acetaldehyde Converter Operator Relationship Specialty Start Date End Date Halle Fontenot MD [address] [place] [address] PCP - General Family Medicine 03/09/23 documented as of this encounter Additional Source Comments The information contained in this document represents components of the legal health record. It is not the complete legal health record.[facility]
--- OUTSIDE RECORDS SUMMARY | 2024-12-05 17:44 | XMS_ITS | Encounter Summary ---
Author Organization [employer] Address [address] [facility] 7[address] [place] [address] Care Team Providers Care Supervisor Fruit Grading Name Role Phone Bea Lacey MD Primary Care Provider [phone] Mariely Dennison PharmD Unavailable [phone] Reason for Visit * Reason Comments Med Refill Encounter Details Date Type Department Care Team ([facility] st Contact Info) Description 10/12/2022 Refill [facility] MED & PEDS [address] [place], [place] [phone] Gordon Mills MD [address] [place] [address] Chronic rhinitis Social History Tobacco Use Types [...] Description 12/14/2024 2:15 PM EDT Office Visit [facility] CH[facility] ADULT DENTAL [address] [place] [address] Daniele Barlow documented as of this encounter Visit Diagnoses Diagnosis Chronic rhinitis documented in this encounter Additional Health Concerns Assessment Noted Time PHQ-9 Depression Total Score: 7 05/29/19 23 10:45 AM EDT documented as of this encounter Care Teams Supervisor Fruit Grading Relationship Specialty Start Date End Date Bea Lacey MD [address] [place] [address] PCP - General Family Medicine 09/22/22 Mariely Dennison PharmD [address] [place] [address] Pharmacist Internal Medicine 07/03/24 [facility] 09/01/24 12/02/24 [facility] 11/09/24 documented as of this encounter
--- OUTSIDE RECORDS SUMMARY | 2024-12-05 17:44 | XMS_ITS | Encounter Summary ---
Author Organization [employer] Address [address] [facility] 7t [place] [address] Care Team Providers Care Type Bar And Segment Assembler Name Role Phone Bea Lacey MD Primary Care Provider [phone] Mariely Dennison PharmD Unavailable [phone] Reason for Visit * Reason Onset Date Comments Nurse Triage 04/03/2024 Encounter Details Date Type Department Care Team ([facility] st Contact Info) Description 04/03/2024 Telephone [facility] MEDICINE [address] [place], [place] [phone] Bea Lacey MD [address] [place], [place] [phone] Nurse Triage Social History Tobacco Use Types [...] and is followed by Pain management at [facility]. Has not notified that Dept at this [...] a new brain surgery on 04/05/24 at [facility]. Disposition reviewed and patient in agreement with plan. Will call to follow with appt. scheduling when recovered from procedure at [facility]. Patient requests that PCP be updated. Forwarded to PCP as patient requested. Protocol Used: Chest Pain (Adult) Protocol-Based Disposition: See in Office or Video Visit Today Override (Final) Disposition: Refer to Specialist Override Reason: Caller refused suggested disposition Override Notes: Patient followed by [facility] Pain Management but wants PCP updated Video visit not offered Positive Triage Question: * All other patients with chest pain (Exception: Fleeting chest pain lasting a few seconds.) * All higher-acuity triage questions were negative Care Advice Discussed: * Reasons To Call Back - You become worse * Telephone Encounter - Terri Steeljesus Jose Armando - 04/03/2024 12:08 PM EST Symptom: Pain - Severe (Right side under rib), Skin painful to touch. Outcome: Schedule an urgent appointment (within 1 hour) or talk to a nurse or provider soon Reason: Caller denied all higher acuity questions The caller accepted this outcome. [phone] documented in this encounter Plan of Treatment Upcoming Encounters Date Type Department Care Team (Late st Contact Info) Description 12/14/2024 2:15 PM EDT Office Visit [facility] ADULT DENTAL [address] [place] [address] Daniele Barlow documented as of this encounter Visit Diagnoses Not on filedocumented in this encounter Additional Health Concerns Assessment Noted Time PHQ-9 Depression Total Score: 20 024 10:22 AM EDT documented as of this encounter Care Teams Type Bar And Segment Assembler Relationship Specialty Start Date End Date Bea Lacey MD [address] [place] [address] PCP - General Family Medicine 09/22/22 Mariely Dennison PharmD [address] [place] [address] Pharmacist Internal Medicine 07/03/24 [facility] 09/01/24 12/02/24 [facility] 11/09/24 documented as of this encounter
--- OUTSIDE RECORDS SUMMARY | 2024-12-05 17:44 | XMS_ITS | Encounter Summary ---
Author Organization [employer] Address [address] [facility] 7t [place] [address] Care Team Providers Care Medical Coding Technician Name Role Phone Bea Lacey MD Primary Care Provider [phone] Mariely Dennison PharmD Unavailable [phone] Reason for Visit * Reason Onset Date Comments Nurse Triage 11/08/2023 Encounter Details Date Type Department Care Team ([facility] st Contact Info) Description 11/08/2023 Telephone [facility] MED [facility]EDS [address] [place], [place] [phone] Bea Lacey MD [address] [place], [place] [phone] Nurse Triage Social History Tobacco Use Types [...] accepted this outcome. Please contact pt at [phone] documented in this encounter Plan of Treatment Upcoming Encounters Date Type Department Care Team ([facility] st Contact Info) Description 12/14/2024 2:15 PM EDT Office Visit [facility] ADULT DENTAL [address] [place] [address] Daniele Barlow documented as of this encounter Visit Diagnoses Not on filedocumented in this encounter Additional Health Concerns Assessment Noted Time PHQ-9 Depression Total Score: 20 024 10:22 AM EDT documented as of this encounter Care Teams Medical Coding Technician Relationship Specialty Start Date End Date Bea Lacey MD [address] [place] [address] PCP - General Family Medicine 09/22/22 Mariely Dennison PharmD [address] [place] [address] Pharmacist Internal Medicine 07/03/24 [facility] 09/01/24 12/02/24 [facility] 11/09/24 documented as of this encounter
--- OUTSIDE RECORDS SUMMARY | 2024-12-05 17:44 | XMS_ITS | Clinical Summary ---
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 Benign hypertension 12/30/2023 BPH (benign prostatic hyperplasia) 12/30/2023 Bilateral cataracts 12/30/2023 Bilateral tinnitus 12/30/2023 CVA (cerebral vascular accident) ([facility] V24, C [place]/[facility] V28) 12/30/2023 Heart failure with normal ej ection fraction ([facility] V24, [facility] V28) 12/30/2023 Hyperlipidemia 12/30/2023 History of parathyroidectomy 12/30/2023 CKD (chronic kidney disease) 12/30/2023 Type 2 diabetes mellitus wit h hyperglycemia ([facility] V24, [facility] V28) 12/30/2023 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 Lab [address] [facility] [place] [address] Lupe Cruz MD Anemia, unspecified; Other disorders of electrolyte and fluid balance, not elsewhere classified 10/30/[address] [facility] Lab [address] [facility] [place] [address] Lupe Cruz MD Anemia, unspecified; Other disorders of electrolyte and fluid balance, not elsewhere classified from Last 3 Months Immunizations Immunization Administration Dates Next Due Moderna SARS-CoV-2 COVID-19, [...] Date Last Done Comments Colorectal Cancer Screening: Colonoscopy 1952 Diabetes: Annual Foot Exam 1962 Diabetes: Annual Retina Eye Exam 1962 Hepatitis A Vaccines (1 of 2 - Risk 2-dose series) 05/01/1971 RSV Immunization Adult Patients (1 - Risk 50-74 years 1-dose series) 2002 Falls Risk Assessment 11/25/2023 Hepatitis C Screening 11/25/2023 Medicare Annual Wellness Visit 11/25/2023 Social Influencers of Health Screening 11/25/2023 Depression Screening 02/22/2024 COVID-19 Vaccine (7 - Mixed Product risk season) 2024 11/01/2023, 11/18/2022, 12/08/2021, Additional history exists Influenza Vaccine (#1) 2024 , 11/09/2022, 12/03/2021, Additional history exists Diabetes: Blood Sugar Control Test (HGBA1C) 12/01/2024 06/01/2024, 11/10/2023 Diabetes: Annual Urine Albumin-Creatinine Ratio (uACR) 10/15/2025 10/15/2024 Diabetes: Annual GFR (Glomerular Filtration Rate) 11/05/2025 11/05/2024, 10/30/2024, 11/10/2023, Additional history exists Hypertension/CHF/CAD Annual BMP Blood Test 11/05/2025 11/05/2024, 10/30/2024, 11/10/2023, Additional history exists Cholesterol Screening (Lipid Panel) 11/09/2028 11/10/2023 DTaP,Tdap,and Td Vaccines (4 - Td or Tdap) 09/15/2030 09/15/2020, 08/08/2009, 09/29/2005 Hepatitis B Vaccines Completed 10/08/2016, 06/15/2016, 02/12/2016 Zoster Vaccines Completed 01/31/2019, 11/21, 06/17/2014 Pneumococcal Vaccine: 50+ Years Completed 09/15/2020, 11/05/2018, [...] Procedure Name Priority Date/Time Associated Diagnosis Comments COMPREHENSIVE METABOLIC PANEL Routine 11/05/2024 6:38 AM EDT Anemia, unspecified Other disorders of electrolyte and fluid balance, not elsewhere classified COMPLETE BLOOD COUNT Routine 11/05/2024 6:38 AM EDT Anemia, unspecified Other disorders of electrolyte and fluid balance, not elsewhere classified COMPREHENSIVE METABOLIC PANEL Routine 10/30/2024 7:56 AM EDT Anemia, unspecified Other disorders of electrolyte and fluid balance, not elsewhere classified COMPLETE BLOOD COUNT Routine 10/30/2024 7:56 AM EDT Anemia, unspecified Other disorders of electrolyte and fluid balance, not elsewhere classified from Last 3 Months Results * (ABNORMAL) Complete blood count (11/05/2024 6:38 AM EDT) Only the most recent of2 resultswithin the time period is included. WBC 4.6(L) 4.8 - 10.8 K/mcL LAB HEMETOLOGY METHOD 11/05/2024 1:08 PM [facility] RBC 4.80 4.50 - 5.50 M/mcL LAB HEMETOLOGY METHOD 11/05/2024 1:08 PM [facility] Hemoglobin 12.6(L) 13.5 - 17.5 g/dL LAB HEMETOLOGY METHOD 11/05/2024 1:08 PM [facility] Hematocrit 41.3(L) 42.0 - 54.0 % LAB HEMETOLOGY METHOD 11/05/2024 1:08 PM [facility] MCV 85.9 79.0 - 98.0 FL LAB HEMETOLOGY METHOD 11/05/2024 1:08 PM [facility] MCH 26.2(L) 27.0 - 32.0 pcg LAB HEMETOLOGY METHOD 11/05/2024 1:08 PM EDT [facility] MCHC 30.5(L) 32.0 - 37.0 g/dL LAB HEMETOLOGY METHOD 11/05/2024 1:08 PM EDT [facility] RDW 17.2(H) 11.0 - 15.0 % LAB HEMETOLOGY METHOD 11/05/2024 1:08 PM EDT [facility] Platelets 268 130 - 400 K/mcL LAB HEMETOLOGY METHOD 11/05/2024 1:08 PM EDT [facility] MPV 11.3(H) 7.0 - 11.0 FL LAB HEMETOLOGY METHOD 11/05/2024 1:08 PM EDT [facility] NRBC 0.0 <1.0 % LAB HEMETOLOGY METHOD 11/05/2024 1:08 PM EDT [facility] NRBC Absolute 0.00 <0.10 K/mcL LAB HEMETOLOGY METHOD 11/05/2024 1:08 PM EDT [facility] Blood Venous blood specimen / Unknown Venipuncture / Unknown 11/05/2024 6:38 AM EDT 11/05/2024 11:55 AM EDT us Lupe Cruz MD LAB BLOOD ORDERABLES Fin al Result [facility] [address] [place] [address], * (ABNORMAL) Comprehensive metabolic panel (11/05/2024 6:38 AM EDT) Only the most recent of2 resultswithin the time period is included. Sodium 140 133 - 145 mmol/L LAB CHEMISTRY METHOD 11/05/2024 2:08 PM EDT [facility] Potassium 4.1 3.5 - 5.5 mmol/L LAB CHEMISTRY METHOD 11/05/2024 2:08 PM [facility] Chloride 106 96 - 110 mmol/L LAB CHEMISTRY METHOD 11/05/2024 2:08 PM [facility] CO2 29 21 - 32 mmol/L LAB CHEMISTRY METHOD 11/05/2024 2:08 PM [facility] Anion Gap 5 3 - 11 LAB CHEMISTRY METHOD 11/05/2024 2:08 PM [facility] Glucose 124(H) 70 - 100 mg/dL LAB CHEMISTRY METHOD 11/05/2024 2:08 PM [facility] BUN 12 5 - 25 mg/dL LAB CHEMISTRY METHOD 11/05/2024 2:08 PM [facility] Creatinine 0.83 0.70 - 1.30 mg/dL LAB CHEMISTRY METHOD 11/05/2024 2:08 PM [facility] eGFR 93 >=60 mL/min/1. 73m2 LAB CHEMISTRY METHOD 11/05/2024 2:08 PM [facility] Comment:Calculation based on the Chronic Kidney Disease Epidemiology Collaboration (CKD-EPI) equation refit without adjustment for race. BUN/Creatinine Ratio 14.5 LAB CHEMISTRY METHOD 11/05/2024 2:08 PM [facility] Calcium 8.5 8.5 - 10.5 mg/dL LAB CHEMISTRY METHOD 11/05/2024 2:08 PM [facility] AST (SGOT) 21 10 - 42 unit/L LAB CHEMISTRY METHOD 11/05/2024 2:08 PM [facility] ALT (SGPT) 24 10 - 60 unit/L LAB CHEMISTRY METHOD 11/05/2024 2:08 PM [facility] Alkaline Phosphatase 124(H) 42 - 121 unit/L LAB CHEMISTRY METHOD 11/05/2024 2:08 PM [facility] Total Protein 6.0 6.0 - 8.0 g/dL LAB CHEMISTRY METHOD 11/05/2024 2:08 PM EDT [facility] Albumin 3.1(L) 3.2 - 5.0 g/dL LAB CHEMISTRY METHOD 11/05/2024 2:08 PM EDT [facility] Total Bilirubin 0.4 0.0 - 1.4 mg/dL LAB CHEMISTRY METHOD 11/05/2024 2:08 PM EDT [facility] Blood Venous blood specimen / Unknown Venipuncture / Unknown 11/05/2024 6:38 AM EDT 11/05/2024 11:53 AM EDT us Lupe Cruz MD LAB BLOOD ORDERABLES Fin al Result [facility] [address] [place] [address], [place] [phone] from Last 3 Months Insurance MEDICARE MEDICAID - [place] Care Teams Warehouse Coordinator Relationship Specialty Start Date End Date Bea Lacey MD [address] [place] [address] PCP - General 04/04/23
--- OUTSIDE RECORDS SUMMARY | 2024-12-05 17:44 | XMS_ITS | Encounter Summary ---
Author Organization [employer] Address [address] [facility] 7t [place] [address] Care Team Providers Care Rn Supplemental Name Role Phone Bea Lacey MD Primary Care Provider [phone] Mariely Dennison PharmD Unavailable [phone] Reason for Visit * Reason Onset Date Comments Results 11/16/2023 Encounter Details Date Type Department Care Team ([facility] st Contact Info) Description 11/16/2023 Telephone [facility] MEDICINE [address] [place], [place] [phone] Bea Lacey MD [address] [place], [place] [phone] Results Social History Tobacco Use Types Packs/Day [...] PM EDT Tc from pt returning call. Tuber Operator advise previous message. Pt verbalizes understanding. * [...] results: Labs Date when done: 11/10/23 Facility: [facility] Labs documented in this encounter Plan of Treatment Upcoming Encounters Date Type Department Care Team (Late st Contact Info) Description 12/14/2024 2:15 PM EDT Office Visit [facility] CHC ADULT DENTAL [address] [place] [address] Daniele Barlow documented as of this encounter Visit Diagnoses Not on filedocumented in this encounter Additional Health Concerns Assessment Noted Time PHQ-9 Depression Total Score: 20 024 10:22 AM EDT documented as of this encounter Care Teams Rn Supplemental Relationship Specialty Start Date End Date Bea Lacey MD [address] [place] [address] PCP - General Family Medicine 09/22/22 Mariely Dennison PharmD [address] [place] [address] Pharmacist Internal Medicine 07/03/24 [facility] 09/01/24 12/02/24 [facility] 11/09/24 documented as of this encounter
--- OUTSIDE RECORDS SUMMARY | 2024-12-05 17:44 | XMS_ITS | Encounter Summary ---
Author Organization [employer] Address [address] [place] [address] 7t [place] [address] Care Team Providers Care Verifier Operator Name Role Phone Bea Lacey MD Primary Care Provider [phone] Mariely Dennison PharmD Unavailable [phone] Reason for Visit * Reason Comments Med Refill Encounter Details Date Type Department Care Team ([facility] Contact Info) Description 09/30/2022 Refill [facility] MED & PEDS [address] [place], [place] [phone] Gordon Mills MD [address] [place] [address] Chronic rhinitis Social History Tobacco Use Types [...] Upcoming Encounters Date Type Department Care Team ([facility] Contact Info) Description 12/14/2024 2:15 PM EDT Office Visit [facility] ADULT DENTAL [address] [place], [place] [phone] Daniele Barlow documented as of this encounter Visit Diagnoses Diagnosis Chronic rhinitis documented in this encounter Additional Health Concerns Assessment Noted Time PHQ-9 Depression Total Score: 7 05/29/19 10:45 AM EDT documented as of this encounter Care Teams Verifier Operator Relationship Specialty Start Date End Date Bea Lacey MD [address] [place] [address] PCP - General Family Medicine 09/22/22 Mariely Dennison PharmD [address] [place] [address] Pharmacist Internal Medicine 07/03/24 [facility] 09/01/24 12/02/24 [facility] 11/09/24 documented as of this encounter
--- OUTSIDE RECORDS SUMMARY | 2024-12-05 17:44 | XMS_ITS | Encounter Summary ---
Author Organization [employer] Address [address] [facility] 7t [place] [address] Care Team Providers Care Him Director Name Role Phone Bea Lacey MD Primary Care Provider [phone] Mariely Dennison PharmD Unavailable [phone] Encounter Details Date Type Department Care Team ([facility] st Contact Info) Description 05/21/2024 Telephone [facility] CHC MED & PEDS [address] [place], [place] [phone] Bea Lacey MD [address] [place] [address] Social History Tobacco Use Types Packs/Day Years [...] 2:15 PM EDT Office Visit [facility] ADULT DENTAL [address] [place] [address] Daniele Barlow documented as of this encounter Visit Diagnoses Not on filedocumented in this encounter Additional Health Concerns Assessment Noted Time PHQ-9 Depression Total Score: 20 024 10:22 AM EDT documented as of this encounter Care Teams Him Director Relationship Specialty Start Date End Date Bea Lacey MD [address] [place] [address] PCP - General Family Medicine 09/22/22 Mariely Dennison PharmD [address] [place] [address] Pharmacist Internal Medicine 07/03/24 [facility] 09/01/24 12/02/24 [facility] 11/09/24 documented as of this encounter
--- OUTSIDE RECORDS SUMMARY | 2024-12-05 17:44 | XMS_ITS | Encounter Summary ---
Author Organization [employer] Address [address] [facility] 7t [place] [address] Care Team Providers Care Ingot Passer Name Role Phone Bea Lacey MD Primary Care Provider [phone] Mariely Dennison PharmD Unavailable [phone] Reason for Visit * Reason Onset Date Comments Med reconciliation 10/08/2024 Encounter Details Date Type Department Care Team ([facility] st Contact Info) Description 10/08/2024 Telephone C CHC MED & PEDS [address] [place], [place] [phone] Bea Lacey MD [address] [place], [place] [phone] Med reconciliation Social History Tobacco Use Types [...] 3:26 PM EDT Tc from Marcy with [facility] requesting a call back for medication reconciliation andto discuss pain medication. Contact Marcy [phone] documented in this encounter Plan of Treatment Upcoming Encounters Date Type Department Care Team (Late st Contact Info) Description 12/14/2024 2:15 PM EDT Office Visit [facility] ADULT DENTAL [address] [place] [address] Daniele Barlow documented as of this encounter Visit Diagnoses Not on filedocumented in this encounter Additional Health Concerns Assessment Noted Time PHQ-9 Depression Total Score: 9 09/19/19 25 9:36 AM EDT documented as of this encounter Care Teams Ingot Passer Relationship Specialty Start Date End Date Bea Lacey MD [address] [place] [address] PCP - General Family Medicine 09/22/22 Mariely Dennison PharmD [address] [place] [address] Pharmacist Internal Medicine 07/03/24 [facility] 09/01/24 12/02/24 [facility] 11/09/24 documented as of this encounter
--- OUTSIDE RECORDS SUMMARY | 2024-12-05 17:44 | XMS_ITS | Encounter Summary ---
Author Organization [employer] Address [address] [facility] 7t [place] [address] Care Team Providers Care Rn Clinical Resource Name Role Phone Bea Lacey MD Primary Care Provider [phone] Mariely Dennison PharmD Unavailable [phone] Encounter Details Date Type Department Care Team (Late st Contact Info) Description 02/29/2024 Orders Only [facility] CHC MED & PEDS [address] [place], [place] [phone] Bea Lacey MD [address] [place], [place] [phone] Type 2 diabetes mellitus with hyperglycemia (CMS/HCC) [...] Office Visit [facility] ADULT DENTAL [address] [place] [address] Daniele Barlow documented as of this encounter Visit Diagnoses Diagnosis Type 2 diabetes mellitus with hyperglycemia (HCC) documented in this encounter Additional Health Concerns Assessment Noted Time PHQ-9 Depression Total Score: 20 024 10:22 AM EDT documented as of this encounter Care Teams Rn Clinical Resource Relationship Specialty Start Date End Date Bea Lacey MD [address] [place] [address] PCP - General Family Medicine 09/22/22 Mariely Dennison PharmD [address] [place] [address] Pharmacist Internal Medicine 07/03/24 [facility] 09/01/24 12/02/24 [facility] 11/09/24 documented as of this encounter
--- OUTSIDE RECORDS SUMMARY | 2024-12-05 17:44 | XMS_ITS | Encounter Summary ---
Author Organization [employer] Address [address] [facility] 7t [place] [address] Care Team Providers Care Land Economist Name Role Phone Gordon Mills MD Primary Care Prov ider Bea Lacey MD Primary Care Provider [phone] Mariely Dennison PharmD Unavailable [phone] Encounter Details Date Type Department Care Team (Latest Contact Info) Description 08/14/2020 Abstract [facility] CONVERSIONS Dental, Provider, DDS Social History Tobacco [...] Description 12/14/2024 2:15 PM EDT Office Visit [facility] CHC ADULT DENTAL [address] [place] [address] Daniele Barlow documented as of this encounter Visit Diagnoses Not on filedocumented in this encounter Care Teams Land Economist Relationship Specialty Start Date End Date Gordon Mills MD [address] [place] [address] PCP - General Internal Medicine 07/12/19 09/21/22 Bea Lacey MD [address] [place] [address] PCP - General Family Medicine 09/22/22 Mariely Dennison, [place] 230 [place] [address] Pharmacist Internal Medicine 07/03/24 [facility] 09/01/24 12/02/24 [facility] 11/09/24 documented as of this encounter
--- OUTSIDE RECORDS SUMMARY | 2024-12-05 17:44 | XMS_ITS | Encounter Summary ---
Author Organization [employer] Address [address] [facility] 7t [place] [address] Care Team Providers Care Chef Concierge Name Role Phone Gordon Mills MD Primary Care Prov ider Bea Lacey MD Primary Care Provider Mariely Dennison PharmD Unavailable [phone] Reason for Visit * Reason Comments Med Refill Encounter Details Date Type Department Care Team ([facility] st Contact Info) Description 09/02/2022 Refill [facility] CHC MED & PEDS [address] [place], [place] [phone] Peter Barlow MD [address] [place] [address] Social History Tobacco Use Types Packs/Day Years [...] Description 12/14/2024 2:15 PM EDT Office Visit [facility] CHC ADULT DENTAL [address] [place] [address] Daniele Barlow documented as of this encounter Visit Diagnoses Not on filedocumented in this encounter Additional Health Concerns Assessment Noted Time PHQ-9 Depression Total Score: 7 05/29/19 23 10:45 AM EDT documented as of this encounter Care Teams Chef Concierge Relationship Specialty Start Date End Date Gordon Mills MD [address] [place] [address] PCP - General Internal Medicine 07/12/19 09/21/22 Bea Lacey MD [address] [place] [address] PCP - General Family Medicine 09/22/22 Mariely Dennison PharmD [address] [place] [address] Pharmacist Internal Medicine 07/03/24 [facility] 09/01/24 12/02/24 [facility] 11/09/24 documented as of this encounter
--- OUTSIDE RECORDS SUMMARY | 2024-12-05 17:45 | XMS_ITS | Encounter Summary ---
Author Organization [employer] Address [address] [facility] 7t [place] [address] Care Team Providers Care Nurse Rn Bsn Name Role Phone Gordon Mills MD Primary Care Prov ider Bea Cottrell MD Primary Care Provider [phone] Mariely Dennison PharmD Unavailable [phone] Reason for Visit * Reason Onset Date Comments PCP change 09/01/2022 Encounter Details Date Type Department Care Team ([facility] st Contact Info) Description 09/01/2022 Telephone [facility] CHC MED & PEDS [address] [place], [place] [phone] Gordon Mills MD [address] [place], [place] [phone] PCP change Social History Tobacco Use Types [...] Description 12/14/2024 2:15 PM EDT Office Visit [facility] ADULT DENTAL [address] [place] [address] Daniele Barlow documented as of this encounter Visit Diagnoses Not on filedocumented in this encounter Additional Health Concerns Assessment Noted Time PHQ-9 Depression Total Score: 7 05/29/19 10:45 AM EDT documented as of this encounter Care Teams Nurse Rn Bsn Relationship Specialty Start Date End Date Gordon Mills MD [address] [place] [address] PCP - General Internal Medicine 07/12/19 09/21/22 Bea Cottrell MD [address] [place] [address] PCP - General Family Medicine 09/22/22 Mariely Dennison PharmD [address] [place] [address] Pharmacist Internal Medicine 07/03/24 [facility] 09/01/24 12/02/24 [facility] 11/09/24 documented as of this encounter
--- OUTSIDE RECORDS SUMMARY | 2024-12-05 17:45 | XMS_ITS | Encounter Summary ---
Author Organization [employer] Address [address] [facility] 7t [place] [address] Care Team Providers Care Field Auditor Name Role Phone Bea Lacey MD Primary Care Provider [phone] Mariely Dennison PharmD Unavailable [phone] Reason for Visit * Reason Onset Date Comments Medication Question 06/20/2023 Encounter Details Date Type Department Care Team ([facility] st Contact Info) Description 06/20/2023 Telephone [facility] MEDICINE [address] [place], [place] [phone] Bea Lacey MD [address] [place], [place] [phone] Medication Question Social History Tobacco Use Types [...] Description 12/14/2024 2:15 PM EDT Office Visit [facility] ADULT DENTAL [address] [place] [address] Daniele Barlow documented as of this encounter Visit Diagnoses Not on filedocumented in this encounter Additional Health Concerns Assessment Noted Time PHQ-9 Depression Total Score: 20 024 10:22 AM EDT documented as of this encounter Care Teams Field Auditor Relationship Specialty Start Date End Date Bea Lacey MD [address] [place] [address] PCP - General Family Medicine 09/22/22 Mariely Dennison PharmD [address] [place] [address] Pharmacist Internal Medicine 07/03/24 [facility] 09/01/24 12/02/24 [facility] 11/09/24 documented as of this encounter
--- OUTSIDE RECORDS SUMMARY | 2024-12-05 17:45 | XMS_ITS | Encounter Summary ---
Author Organization [employer] Address [address] [facility] 7t [place] [address] Care Team Providers Care Porcelain Finish Sprayer Name Role Phone Bea Lacey MD Primary Care Provider [phone] Mariely Dennison PharmD Unavailable [phone] Reason for Visit * Reason Comments Med Refill Encounter Details Date Type Department Care Team ([facility] st Contact Info) Description 12/03/2024 Refill [facility] CHC MED & PEDS [address] [place], [place] [phone] Bea Lacey MD [address] [place], [place] [phone] Gastroesophageal reflux disease without esophagitis Social History Tobacco Use Types Packs/Day Years [...] your housing situation today? I have zoe arbeu 09/11/[address] you li [...] 12/14/2024 2:15 PM EDT Office Visit [facility] ADULT DENTAL [address] [place] [address] Daniele Barlow documented as of this encounter Visit Diagnoses Diagnosis Gastroesophageal reflux disease without esophagitis Esophageal reflux documented in this encounter Additional Health Concerns Assessment Noted Time PHQ-9 Depression Total Score: 9 09/19/19 25 9:36 AM EDT documented as of this encounter Care Teams Porcelain Finish Sprayer Relationship Specialty Start Date End Date Bea Lacey MD [address] [place] [address] PCP - General Family Medicine 09/22/22 Mariely Dennison PharmD [address] [place] [address] Pharmacist Internal Medicine 07/03/24 [facility] 11/09/24 documented as of this encounter
--- OUTSIDE RECORDS SUMMARY | 2024-12-05 17:45 | XMS_ITS | Encounter Summary ---
Author Organization [employer] Address 75 [facility] 7t [place] [address] Care Team Providers Care Teacher Counselor Name Role Phone Bea Lacey MD Primary Care Provider [phone] Mariely Dennison PharmD Unavailable [phone] Reason for Visit * Reason Onset Date Comments returning call RCT appt 06/26/2024 Encounter Details Date Type Department Care Team ([facility] st Contact Info) Description 06/26/2024 Telephone [facility] [address] [place], [place] [phone] Sebastián Quintero, DDS [address] [place], [place] [phone] returning call RCT appt Social History Tobacco [...] [facility] AD[facility] [address] [place] [address] Daniele Barlow documented as of this encounter Visit Diagnoses Not on filedocumented in this encounter Additional Health Concerns Assessment Noted Time PHQ-9 Depression Total Score: 20 024 10:22 AM EDT documented as of this encounter Care Teams Teacher Counselor Relationship Specialty Start Date End Date Bea Lacey MD [address] [place] [address] PCP - General Family Medicine 09/22/22 Mariely Dennison PharmD [address] [place] [address] Pharmacist Internal Medicine 07/03/24 [facility] 09/01/24 12/02/24 [facility] 11/09/24 documented as of this encounter
--- OUTSIDE RECORDS SUMMARY | 2024-12-05 17:45 | XMS_ITS | Encounter Summary ---
Author Organization [employer] Address 75 [facility] 7t [place] [address] Care Team Providers Care Archeology Professor Name Role Phone Bea Lacey MD Primary Care Provider [phone] Mariely Dennison PharmD Unavailable [phone] Reason for Visit * Reason Comments Care Coordination Home Health Utilizat ion Encounter Details Date Type Department Care Team (Latest Contact Info) Description 12/03/[address] [facility] [address] [place], [place] [phone] Bea Lacey MD [address] [place], [place] [phone] Care Coordination (Home Health Utilization) Social History Tobacco Use Types Packs/Day Years [...] AM EDT documented as of this encounter Progress Notes * Giselle Nichols RN - 12/03/2024 2:03 PM EDT Received Plan Of Care from [facility] for start of care. Per our records patient previouslyseen by [facility]. Placed outbound call to [facility] and confirmed patient was discharged from agency on 10/28/24. Will update care team information and send orders out for signature. documented in this encounter Plan of Treatment Upcoming Encounters Date Type Department Care Team (Late st Contact Info) Description 12/14/2024 2:15 PM EDT Office Visit [facility] AD[facility] [address] [place] [address] Daniele Barlow documented as of this encounter Visit Diagnoses Not on filedocumented in this encounter Additional Health Concerns Assessment Noted Time PHQ-9 Depression Total Score: 9 09/19/19 25 9:36 AM EDT documented as of this encounter Care Teams Archeology Professor Relationship Specialty Start Date End Date Bea Lacey MD [address] [place] [address] PCP - General Family Medicine 09/22/22 Mariely Dennison, PharmD [address] [place] [address] Pharmacist Internal Medicine 07/03/24 [facility] 11/09/24 documented as of this encounter
--- OUTSIDE RECORDS SUMMARY | 2024-12-05 17:45 | XMS_ITS | Encounter Summary ---
Author Organization [employer] Address 75 [facility] 7t [place] [address] Care Team Providers Care Infantry Unit Leader Name Role Phone Bea Lacey MD Primary Care Provider [phone] Mariely Dennison PharmD Unavailable [phone] Reason for Visit * Reason Comments Med Refill Encounter Details Date Type Department Care Team ([facility] st Contact Info) Description 11/27/2024 Refill [facility] MED & PEDS [address] [place], [place] [phone] Bea Lacey MD [address] [place], [place] [phone] Gastroesophageal reflux disease without esophagitis; Essential tremor Social History Tobacco Use Types [...] Description 12/14/2024 2:15 PM EDT Office Visit [facility] ADULT DENTAL [address] [place] [address] Daniele Barlow documented as of this encounter Visit Diagnoses Diagnosis Gastroesophageal reflux disease without esophagitis Esophageal reflux Essential tremor documented in this encounter Additional Health Concerns Assessment Noted Time PHQ-9 Depression Total Score: 9 09/19/19 25 9:36 AM EDT documented as of this encounter Care Teams Infantry Unit Leader Relationship Specialty Start Date End Date Bea Lacey MD [address] [place] [address] PCP - General Family Medicine 09/22/22 Mariely Dennison PharmD [address] [place] [address] Pharmacist Internal Medicine 07/03/24 [facility] 09/01/24 12/02/24 [facility] 11/09/24 documented as of this encounter
--- OUTSIDE RECORDS SUMMARY | 2024-12-05 17:45 | XMS_ITS | Encounter Summary ---
Author Organization [employer] Address 75 [facility] 7t [place] [address] Care Team Providers Care Angle Shear Set Up Operator Name Role Phone Bea Lacey MD Primary Care Provider [phone] Mariely Dennison PharmD Unavailable [phone] Encounter Details Date Type Department Care Team (Late st Contact Info) Description 07/18/2024 Orders Only [facility] [address] [place], [place] [phone] Provider, MD Tia Social History Tobacco Use [...] Description 12/14/2024 2:15 PM EDT Office Visit [facility] ADULT DENTAL [address] [place] [address] Daniele Barlow documented as of this encounter [...] documented as of this encounter Care Teams Angle Shear Set Up Operator Relationship Specialty Start Date End Date Bea Lacey MD [address] [place] [address] PCP - General Family Medicine 09/22/22 Mariely Dennison PharmD [address] [place] [address] Pharmacist Internal Medicine 07/03/24 [facility] 09/01/24 12/02/24 [facility] 11/09/24 documented as of this encounter
--- OUTSIDE RECORDS SUMMARY | 2024-12-05 17:45 | XMS_ITS | Patient Health Record ---
Author Organization [facility] Address [address] [place] [address] Care Team Providers Care Deckhand Clam Dredge Name Role Phone Jeri Stokes M.D. Primary Care Provider Madie vailable Markus Parker Unavailable [phone] Reason For Referral No Information Plan Of Treatment No Information Insurance Providers Payer Name Payer Address Payer Phone Subscriber Number Group Number Insured Name Patient Relationship to Insured Coverage Start Date Coverage End Date MEDICARE OF [facility] [address] [place] [id number] [phone] [id number] SHERLY VARGAS Self - patient is the insured
--- OUTSIDE RECORDS SUMMARY | 2024-12-05 17:45 | XMS_ITS | Encounter Summary ---
Author Organization [employer] Address 75 [facility] 7t [place] [address] Care Team Providers Care Filtration Operator Name Role Phone Bea Lacey MD Primary Care Provider [phone] Mariely Dennison PharmD Unavailable Reason for Visit * Reason Comments Med Refill Encounter Details Date Type Department Care Team ([facility] Contact Info) Description 07/20/2024 Refill [facility] MED & PEDS [address] [place], [place] [phone] Gordon Mills MD [address] [place] [address] Type 2 diabetes mellitus with hyperglycemia (CMS/HCC) [...] 12/14/2024 2:15 PM EDT Office Visit [facility] ADULT D[facility] [address] [place] [address] Daniele Barlow documented as of this encounter Visit Diagnoses Diagnosis Type 2 diabetes mellitus with hyperglycemia (HCC) documented in this encounter Additional Health Concerns Assessment Noted Time PHQ-9 Depression Total Score: 20 024 10:22 AM EDT documented as of this encounter Care Teams Filtration Operator Relationship Specialty Start Date End Date Bea Lacey MD [address] [place] [address] PCP - General Family Medicine 09/22/22 Mariely Dennison PharmD [address] [place] [address] Pharmacist Internal Medicine 07/03/24 [facility] 09/01/24 12/02/24 [facility] 11/09/24 documented as of this encounter
--- OUTSIDE RECORDS SUMMARY | 2024-12-05 17:45 | XMS_ITS | Encounter Summary ---
Author Organization [employer] Address 75 [facility] 7t [place] [address] Care Team Providers Care Thermostat Mechanic Name Role Phone Bea Lacey MD Primary Care Provider [phone] Mariely Dnenison PharmD Unavailable Encounter Details Date Type Department Care Team (Late st Contact Info) Description 06/07/2023 Orders Only [facility] MEDICINE [address] [place], [place] [phone] Provider, MD Tia Social History Tobacco Use [...] 2:15 PM EDT Office Visit [facility] ADULT DENTAL [address] [place] [address] Daniele Barlow documented as of this encounter [...] documented as of this encounter Care Teams Thermostat Mechanic Relationship Specialty Start Date End Date Bea Lacey MD [address] [place] [address] PCP - General Family Medicine 09/22/22 Mariely Dennison PharmD [address] [place] [address] Pharmacist Internal Medicine 07/03/24 [facility] 09/01/24 12/02/24 [facility] 11/09/24 documented as of this encounter
--- OUTSIDE RECORDS SUMMARY | 2024-12-05 17:45 | XMS_ITS | Encounter Summary ---
Author Organization [employer] Address 75 [facility] 7t [place] [address] Care Team Providers Care Property Administrator Name Role Phone Bea Lacey MD Primary Care Provider [phone] Mariely Dennison PharmD Unavailable [phone] Reason for Visit * Reason Onset Date Comments Medication Question 06/10/2023 Encounter Details Date Type Department Care Team ([facility] Contact Info) Description 06/10/2023 Telephone [facility] MED & PEDS [address] [place], [place] [phone] Bea Lacey MD [address] [place], [place] [phone] Medication Question Social History Tobacco Use Types [...] 12/14/2024 2:15 PM EDT Office Visit [facility] AD[facility] D[facility] [address] [place] [address] Daniele Barlow documented as of this encounter Visit Diagnoses Not on filedocumented in this encounter Additional Health Concerns Assessment Noted Time PHQ-9 Depression Total Score: 20 024 10:22 AM EDT documented as of this encounter Care Teams Property Administrator Relationship Specialty Start Date End Date Bea Lacey MD [address] [place] [address] PCP - General Family Medicine 09/22/22 Mariely Dennison PharmD [address] [place] [address] Pharmacist Internal Medicine 07/03/24 [facility] 09/01/24 12/02/24 [facility] 11/09/24 documented as of this encounter
--- OUTSIDE RECORDS SUMMARY | 2024-12-05 17:45 | XMS_ITS | Encounter Summary ---
Author Organization [employer] Address 75 [facility] 7t [place] [address] Care Team Providers Care Passenger Service Manager Name Role Phone Bea Lacey MD Primary Care Provider [phone] Mariely Dennison PharmD Unavailable [phone] Reason for Visit * Reason Onset Date Comments Results 04/28/2023 Encounter Details Date Type Department Care Team ([facility] st Contact Info) Description 04/28/2023 Telephone [facility] MED[facility] [address] [place], [place] [phone] Bea Lacey MD [address] [place], [place] [phone] Results Social History Tobacco Use Types Packs/Day Years Used Date Smoking Tobacco: Former Cigarettes Passive Smoke Exposure: Never Smokeless Tobacco: Never Alcohol Use Standard Drinks/Week Comments Never 0 (1 standard drink = 0.6 oz pur e alcohol) Depression Answer Date Recorded Patient Health Questionnaire-9 Score 7 05/28/2022 Housing Stability Answer Date Recorded What is your housing situation today? I have zoe abrue 12/08/[address] you li [...] Description 12/14/2024 2:15 PM EDT Office Visit [facility] ADULT DENTAL [address] [place] [address] Daniele Barlow documented as of this encounter Visit Diagnoses Not on filedocumented in this encounter Additional Health Concerns Assessment Noted Time PHQ-9 Depression Total Score: 7 05/29/19 23 10:45 AM EDT documented as of this encounter Care Teams Passenger Service Manager Relationship Specialty Start Date End Date Bea Lacey MD [address] [place] [address] PCP - General Family Medicine 09/22/22 Mariely Dennison PharmD [address] [place] [address] Pharmacist Internal Medicine 07/03/24 [facility] 09/01/24 12/02/24 [facility] 11/09/24 documented as of this encounter
--- OUTSIDE RECORDS SUMMARY | 2024-12-05 17:45 | XMS_ITS | Encounter Summary ---
Author Organization [employer] Address 75 [facility] 7t [place] [address] Care Team Providers Care Laboratory Worker Name Role Phone Bea Lacey MD Primary Care Provider [phone] Mariely Dennison PharmD Unavailable [phone] Encounter Details Date Type Department Care Team ([facility] st Contact Info) Description 12/03/2024 Telephone [facility] MED & PEDS [address] [place], [place] [phone] Bea Lacey MD 505 [place], [place] [phone] Social History Tobacco Use Types Packs/Day Years [...] Description 12/14/2024 2:15 PM EDT Office Visit [facility] ADULT DENTAL [address] [place] [address] Daniele Barlow documented as of this encounter Visit Diagnoses Diagnosis Gastroesophageal reflux disease without esophagitis Esophageal reflux documented in this encounter Additional Health Concerns Assessment Noted Time PHQ-9 Depression Total Score: 9 09/19/19 25 9:36 AM EDT documented as of this encounter Care Teams Laboratory Worker Relationship Specialty Start Date End Date Bea Lacey MD [address] [place] [address] PCP - General Family Medicine 09/22/22 Mariely Dennison PharmD [address] [place] [address] Pharmacist Internal Medicine 07/03/24 [facility] 11/09/24 documented as of this encounter
--- OUTSIDE RECORDS SUMMARY | 2025-01-06 20:00 | XMS_ITS | Clinical Summary ---
Author Organization Unknown Care Team Providers Care Industrial Engineering Intern Name Role Phone KIAN LEVINE, PAYAL Unavailable Unavaila anne-marie BIRCH RN, MARTÍN Unavailable Unavailab jaycee RONDON PT, YESIKA Unavailable Unavailable JOCY PHARMACY TECHNICIAN PER DIEM, EDWARD Unavailable Unavailable ALVARO CYTOGENETICS TECHNOLOGIST, ROSENDO Unavailable Unavailable Payers Payer Name Policy Type Policy Number Effective Date Expira tion Date MEDICARE.NGS.PDGM [id number] Problems Condition Name Condition Details Condition Category [...] 11-07 00:00: 00 ATHSCL HEART DISEASE OF [place] CORONARY ARTERY W/O ANG PCTRS Active 11-07 00:00: 00 CHRONIC ATRIAL FIBRILLATION , UNSPECIFIED Active 11-07 00:00: 00 OTHER CHRONIC PAIN Active 11-07 00:00: 00 GASTRO-ESOPH AGEAL REFLUX DISEASE WITHOUT ESOPHAGITIS Active 11-07 00:00: 00 PRIMARY CENTRAL SLEEP APNEA Active 11-07 00:00: 00 DEPRESSION, UNSPECIFIED Active 11-07 00:00: 00 OTHER CONSTIPATION Active 11-07 00:00: 00 HYPOKALEMIA Active 11-07 00:00: 00 HALFWAY (CURRENT) USE OF ANTICOAGULAN TS Active 11-07 00:00: 00 OTHER HALFWAY (CURRENT) DRUG THERAPY Active 11-07 00:00: 00 [...] 11-02 00:00: 00 11-09 00:00 :00 No [id number] Per instruc tions Per instructio ns (route: oral) Med Classific ation: Locomotor System bupropion HCl XL 300 mg 24 hr tablet, extended release 11-02 00:00: 00 Yes [id number] ANTIDEPRESS ANT 1 tablet DAILY 1 tablet DAILY (route: oral) Med Classific ation: Central Nervous System Agents clonazepam 0.5 mg tablet 11-02 00:00: 00 11-09 00:00 :00 No [id number] Per instruc tions Per instructio ns (route: oral) Med Classific ation: Central Nervous System Agents esomeprazol e magnesium 40 mg capsule,del ayed release 11-02 00:00: 00 11-09 00:00 :00 No [id number] Per instruc tions Per instructio ns (route: oral) Med Classific ation: Gastroint estinal Therapy Agents Farxiga 10 mg tablet 11-02 00:00: 00 11-09 00:00 :00 No [id number] Per instruc tions Per instructio ns (route: oral) Med Classific ation: Endocrine gabapentin 300 mg capsule 11-02 00:00: 00 11-09 00:00 :00 No [id number] Per instruc tions Per instructio ns (route: oral) Med Classific ation: Central Nervous System Agents hydroxyzine pamoate 25 mg capsule 11-02 00:00: 00 11-09 00:00 :00 No [id number] Per instruc tions Per instructio ns (route: oral) Med Classific ation: Central Nervous System Agents isosorbide mononitrate ER 60 mg tablet,exte nded release 24 hr 11-02 00:00: 00 11-09 00:00 :00 No [id number] Per instruc tions Per instructio ns (route: oral) Med Classific ation: Cardiovas cular Therapy Agents lubiproston e 8 mcg capsule 11-02 00:00: 00 11-09 00:00 :00 No [id number] Per instruc tions Per instructio ns (route: oral) Med Classific ation: Gastroint estinal Therapy Agents mirtazapine 7.5 mg tablet 11-02 00:00: 00 11-09 00:00 :00 No [id number] Per instruc tions Per instructio ns (route: oral) Med Classific ation: Central Nervous System Agents pilocarpine 5 mg tablet 11-02 00:00: 00 Yes [id number] DRY MOUTH 1 tablet 2 TIMES DAILY 1 tablet 2 TIMES DAILY (route: oral) Med Classific ation: Mouth-Thr oat-Denta l - Preparati ons prazosin 5 mg capsule 11-02 00:00: 00 Yes [id number] LOWERS BLOOD PRESSURE 1 capsule BEDTIME 1 capsule BEDTIME (route: oral) Med Classific ation: Cardiovas cular Therapy Agents rosuvastati n 40 mg tablet 11-02 00:00: 00 Yes [id number] LOWERS CHOLESTEROL 1 tablet BEDTIME 1 tablet BEDTIME (route: oral) Med Classific ation: Cardiovas cular Therapy Agents sertraline 100 mg tablet 11-02 00:00: 00 Yes [id number] ANTIDEPRESS ANT 1.5 tablet BEDTIME 1.5 tablet BEDTIME (route: oral) Med Classific ation: Central Nervous System Agents sucralfate 1 gram tablet 11-02 00:00: 00 11-09 00:00 :00 No [id number] Per instruc tions Per instructio ns (route: oral) Med Classific ation: Gastroint estinal Therapy Agents trazodone 50 mg tablet 11-02 00:00: 00 Yes [id number] INSOMNIA 1.5 tablet BEDTIME 1.5 tablet BEDTIME (route: oral) Med Classific ation: Central Nervous System Agents Xarelto 20 mg tablet 11-02 00:00: 00 11-09 00:00 :00 No [id number] Per instruc tions Per instructio ns (route: oral) Med Classific ation: Hematolog ical Agents FreeStyle Verito 3 Plus Sensor device 10-31 00:00: 00 11-09 00:00 :00 No [id number] Unavailable Per instruc tions AND CHANGE EVERY 15 DAYS Per instructio ns AND CHANGE EVERY 15 DAYS (route: miscellane ous) Med Classific ation: Medical Supplies and Durable Medical Equipment (DME) Entresto 49 mg-51 mg tablet 10-16 00:00: 00 Yes [id number] HEART FAILURE 1 tablet 2 TIMES DAILY 1 tablet 2 TIMES DAILY (route: oral) Med Classific ation: Cardiovas cular Therapy Agents Kerendia 20 mg tablet 10-16 00:00: 00 11-09 00:00 :00 No [id number] Per instruc tions DAILY AT Per instructio ns DAILY AT (route: oral) Med Classific ation: Cardiovas cular Therapy Agents torsemide 5 mg tablet 10-16 00:00: 00 11-09 00:00 :00 No [id number] Per instruc tions EVERY Per instructio ns EVERY (route: oral) Med Classific ation: Cardiovas cular Therapy Agents clonidine HCl 0.1 mg tablet 10-08 00:00: 00 11-09 00:00 :00 No [id number] Per instruc tions Per instructio ns (route: oral) Med Classific ation: Cardiovas cular Therapy Agents hydroxyzine HCl 25 mg tablet 10-08 00:00: 00 11-09 00:00 :00 No [id number] Per instruc tions Per instructio ns (route: oral) Med Classific ation: Central Nervous System Agents acetaminoph en 325 mg tablet 11-09 00:00: 00 Yes [id number] PAIN MANAGEMENT 2 tablet EVERY 6 HOURS 2 tablet EVERY 6 HOURS (route: oral) Med Classific ation: Analgesic , Anti-infl ammatory or Antipyret ic baclofen 10 mg tablet 11-09 00:00: 00 Yes [id number] MUSCLE SPASM 1 tablet 3 TIMES DAILY 1 tablet 3 TIMES DAILY (route: oral) Med Classific ation: Locomotor System Calcium 600 + Minerals 600 mg (as carbonate)- 200 unit tablet 11-09 00:00: 00 Yes [id number] SUPPLEMENT 1 tablet 2 TIMES DAILY 1 tablet 2 TIMES DAILY (route: oral) Med Classific ation: Electroly te Balance-N utritiona l Products Colace 100 mg capsule 11-09 00:00: 00 Yes [id number] CONSTIPATIO N 1 capsule 2 TIMES DAILY 1 capsule 2 TIMES DAILY (route: oral) Med Classific ation: Gastroint estinal Therapy Agents esomeprazol e magnesium 40 mg capsule,del ayed release 11-09 00:00: 00 Yes [id number] GERD 1 capsule 2 TIMES DAILY 1 capsule 2 TIMES DAILY (route: oral) Med Classific ation: Gastroint estinal Therapy Agents famotidine 40 mg tablet 11-09 00:00: 00 Yes [id number] GERD 1 tablet DAILY 1 tablet DAILY (route: oral) Med Classific ation: Gastroint estinal Therapy Agents Farxiga 10 mg tablet 11-09 00:00: 00 Yes [id number] HEART FAILURE 1 tablet DAILY 1 tablet DAILY (route: oral) Med Classific ation: Endocrine gabapentin 100 mg capsule 11-09 00:00: 00 Yes [id number] NEUROPATHY 2 capsule 2 TIMES DAILY 2 capsule 2 TIMES DAILY (route: oral) Med Classific ation: Central Nervous System Agents gabapentin 300 mg capsule 11-09 00:00: 00 Yes [id number] NEUROPATHY 1 capsule BEDTIME 1 capsule BEDTIME (route: oral) Med Classific ation: Central Nervous System Agents isosorbide mononitrate ER 60 mg tablet,exte nded release 24 hr 11-09 00:00: 00 Yes [id number] CAD 2 tablet DAILY 2 tablet DAILY (route: oral) Med Classific ation: Cardiovas cular Therapy Agents melatonin 10 mg capsule 11-09 00:00: 00 Yes [id number] INSOMNIA 1 capsule BEDTIME 1 capsule BEDTIME (route: oral) Med Classific ation: Central Nervous System Agents primidone 250 mg tablet 11-09 00:00: 00 Yes [id number] TREMORS 2 tablet 2 TIMES DAILY 2 tablet 2 TIMES DAILY (route: oral) Med Classific ation: Central Nervous System Agents sucralfate 1 gram tablet 11-09 00:00: 00 Yes [id number] GERD 1 tablet 2 TIMES DAILY 1 tablet 2 TIMES DAILY (route: oral) Med Classific ation: Gastroint estinal Therapy Agents Xarelto 20 mg tablet 11-09 00:00: 00 Yes [id number] AFIB 1 tablet DAILY 1 tablet DAILY (route: oral) Med Classific ation: Hematolog ical Agents Amitiza 8 mcg capsule 11-09 00:00: 00 Yes [id number] CONSTIPATIO N 1 capsule 2 TIMES DAILY 1 capsule 2 TIMES DAILY (route: oral) Med Classific ation: Gastroint estinal Therapy Agents aspirin 81 mg tablet,flores yed release 11-09 00:00: 00 Yes [id number] HEART HEALTH 1 tablet DAILY 1 tablet DAILY (route: oral) Med Classific ation: Hematolog ical Agents cetirizine 10 mg tablet 11-09 00:00: 00 Yes [id number] ALLERGIES 1 tablet DAILY 1 tablet DAILY (route: oral) Med Classific ation: Respirato ry Therapy Agents cholecalcif glenn (vitamin D3) 25 mcg (1,000 unit) tablet 11-09 00:00: 00 Yes [id number] SUPPLEMENT 1 tablet DAILY 1 tablet DAILY (route: oral) Med Classific ation: Electroly te Balance-N utritiona l Products torsemide 5 mg tablet 11-09 00:00: 00 Yes [id number] FLUID RETENTION 1 tablet DAILY 1 tablet DAILY (route: oral) Med Classific ation: Cardiovas cular Therapy Agents Kerendia 20 mg tablet 2024-02 0 00:00: 00 Yes [id number] CARDIAC 1 tablet DAILY 1 tablet DAILY (route: oral) Alternate Route: BY MOUTH. Med Classific ation: Cardiovas cular Therapy Agents Senna Lax 8.6 mg tablet 2024-02 0 00:00: 00 Yes [id number] BOWEL 1 tablet BEDTIME 1 tablet BEDTIME (route: oral) Alternate Route: BY MOUTH. Med Classific ation: Gastroint estinal Therapy Agents Vital Signs Vital Name Observation Time Observation Value Commen ts Temperature 2024-12-04 08:59:00.000 97.7 [degF] Temperature 2024-11-28 12:55:00.000 98.4 [degF] Temperature 2024-11-27 09:44:00.000 97.7 [degF] Temperature 2024-11-23 09:19:00.000 97.7 [degF] Temperature 2024-11-20 11:06:00.000 98.3 [degF] Temperature 2024-11-16 12:46:00.000 97.4 [degF] Temperature 2024-11-14 10:15:00.000 97.8 [degF] Temperature 2024-11-13 09:31:00.000 97.9 [degF] Temperature 2024-11-09 11:39:00.000 97.3 [degF] BMI (%) 2024-11-09 11:20:26.000 27 kg/m2 Height 2024-11-09 11:18:46.000 68 [in_us] Pulse 2024-12-04 08:59:00.000 90 /min Pulse 2024-11-28 12:55:00.000 72 /min Pulse 2024-11-27 09:44:00.000 60 /min Pulse 2024-11-23 09:19:00.000 73 /min Pulse 2024-11-20 11:06:00.000 62 /min Pulse 2024-11-16 12:46:00.000 61 /min Pulse 2024-11-14 10:15:00.000 80 /min Pulse 2024-11-13 09:31:00.000 84 /min Pulse 2024-11-09 11:39:00.000 60 /min O2 Saturation (%) 2024-12-04 08:59:00.000 99 % O2 Saturation (%) 2024-11-27 09:44:00.000 95 % O2 Saturation (%) 2024-11-23 09:19:00.000 97 % O2 Saturation (%) 2024-11-20 11:06:00.000 96 % O2 Saturation (%) 2024-11-16 12:46:00.000 96 % O2 Saturation (%) 2024-11-14 10:15:00.000 97 % O2 Saturation (%) 2024-11-13 09:31:00.000 96 % O2 Saturation (%) 2024-11-09 11:39:00.000 95 % Respirations 2024-12-04 08:59:00.000 18 /min Respirations 2024-11-28 12:55:00.000 18 /min Respirations 2024-11-27 09:44:00.000 18 /min Respirations 2024-11-23 09:19:00.000 18 /min Respirations 2024-11-20 11:06:00.000 18 /min Respirations 2024-11-16 12:46:00.000 18 /min Respirations 2024-11-14 10:15:00.000 18 /min Respirations 2024-11-13 09:31:00.000 18 /min Respirations 2024-11-09 11:39:00.000 18 /min Weight (lbs) 2024-12-04 08:59:00.000 185 [lb_av] Weight (lbs) 2024-11-28 13:05:00.000 184 [lb_av] Weight (lbs) 2024-11-27 09:44:00.000 186 [lb_av] Weight (lbs) 2024-11-23 09:19:00.000 187 [lb_av] Weight (lbs) 2024-11-20 11:06:00.000 187 [lb_av] Weight (lbs) 2024-11-16 12:46:00.000 185.1 [lb_av] Weight (lbs) 2024-11-14 10:15:00.000 187 [lb_av] Weight (lbs) 2024-11-13 09:31:00.000 185 [lb_av] Weight (lbs) 2024-11-09 11:20:26.000 180 [lb_av] Systolic Blood Pressure 2024-12-04 08:59:00.000 122 mm [...] 11:39:00.000 134 mm [Hg] Diastolic Blood Pressure 2024-12-04 08:59:00.000 [...] TION MANAGEMENT; RN TO ASSESS AND OBSERVE, CYTOGENETICS TECHNOLOGIST/CASHIER CREDIT TO OBSERVE FALL RISK FACTORS AND EDUCATE PATIENT/CAREGIVER ON STRATEGIES TO MINIMIZE THE RISK OF FALLING. [code = FALL REDUCTION MANAGEMENT; RN TO ASSESS AND OBSERVE, CYTOGENETICS TECHNOLOGIST/CASHIER CREDIT TO OBSERVE FALL RISK FACTORS AND EDUCATE PATIENT/CAREGIVER ON STRATEGIES TO MINIMIZE THE RISK OF FALLING.] Future Scheduled Test RN TO OBSE RVE, ASSESS, EVALUATE, AND DEVELOP AN INDIVIDUALIZED PLAN OF CARE. AGENCY MAY ACCEPT ORDERS FROM CONSULTING PHYSICIANS. RN TO OBSERVE AND ASSESS, CYTOGENETICS TECHNOLOGIST/CASHIER CREDIT TO OBSERVE FOR RISK FOR FALLS AND INSTRUCT IN FALL PREVENTION, HOME SAFETY, MEDICATION MANAGEMENT, INFECTION PREVENTION, AND NUTRITION MANAGEMENT. RN/CYTOGENETICS TECHNOLOGIST/CASHIER CREDIT NURSE MAY PERFORM O2 SATURATION LEVEL ON ADMISSION AND PRN FOR RN TO ASSESS/CYTOGENETICS TECHNOLOGIST TO OBSERVE PATIENT, WITH NOTIFICATION TO THE PHYSICIAN IF SATURATION IS 90% IN THE ABSENCE OF MORE SPECIFIC PARAMETERS FROM THE PHYSICIAN. AGENCY MAY PERFORM A RESUMPTION OF CARE VISIT FOLLOWING ANY HOSPITAL ADMISSION. RN/CYTOGENETICS TECHNOLOGIST/CASHIER CREDIT TO MONITOR CO-MORBID CONDITIONS LISTED ON THE PLAN OF CARE AND ANY NEW CONDITIONS THAT PRESENT THEMSELVES DURING THIS EPISODE TO IDENTIFY CHANGES AND INTERVENE TO MINIMIZE COMPLICATIONS. [code = RN TO OBSERVE, ASSESS, EVALUATE, AND DEVELOP AN INDIVIDUALIZED PLAN OF CARE. AGENCY MAY ACCEPT ORDERS FROM CONSULTING PHYSICIANS. RN TO OBSERVE AND ASSESS, CYTOGENETICS TECHNOLOGIST/CASHIER CREDIT TO OBSERVE FOR RISK FOR FALLS AND INSTRUCT IN FALL PREVENTION, HOME SAFETY, MEDICATION MANAGEMENT, INFECTION PREVENTION, AND NUTRITION MANAGEMENT. RN/CYTOGENETICS TECHNOLOGIST/CASHIER CREDIT NURSE MAY PERFORM O2 SATURATION LEVEL ON ADMISSION AND PRN FOR RN TO ASSESS/CYTOGENETICS TECHNOLOGIST TO OBSERVE PATIENT, WITH NOTIFICATION TO THE PHYSICIAN IF SATURATION IS 90% IN THE ABSENCE OF MORE SPECIFIC PARAMETERS FROM THE PHYSICIAN. AGENCY MAY PERFORM A RESUMPTION OF CARE VISIT FOLLOWING ANY HOSPITAL ADMISSION. RN/CYTOGENETICS TECHNOLOGIST/CASHIER CREDIT TO MONITOR CO-MORBID CONDITIONS LISTED ON THE PLAN OF CARE AND ANY NEW CONDITIONS THAT PRESENT THEMSELVES DURING THIS EPISODE TO IDENTIFY CHANGES AND INTERVENE TO MINIMIZE COMPLICATIONS.] Future Scheduled Test PAIN MANAG EMENT; RN TO ASSESS AND TEACH, CASHIER CREDIT/CYTOGENETICS TECHNOLOGIST TO OBSERVE AND TEACH AND PROVIDE EDUCATION ON PAIN MANAGEMENT TECHNIQUES. [code = PAIN MANAGEMENT; RN TO ASSESS AND TEACH, CASHIER CREDIT/CYTOGENETICS TECHNOLOGIST TO OBSERVE AND TEACH AND PROVIDE EDUCATION ON PAIN MANAGEMENT TECHNIQUES.] Future Scheduled Test RISK FOR H OSPITALIZATION; RN TO ASSESS/TEACH, CASHIER CREDIT/CYTOGENETICS TECHNOLOGIST TO OBSERVE/TEACH PATIENT/CAREGIVER ON RISK FOR HOSPITALIZATION/EMERGENCY ROOM VISITS, TEACH SIGNS AND SYMPTOMS THAT PUT PATIENT AT RISK, WHEN TO NOTIFY NURSE/PHYSICIAN OF COMPLICATIONS/DECLINE, AND WHEN TO CALL 911. [code = RISK FOR HOSPITALIZATION; RN TO ASSESS/TEACH, CASHIER CREDIT/CYTOGENETICS TECHNOLOGIST TO OBSERVE/TEACH PATIENT/CAREGIVER ON RISK FOR HOSPITALIZATION/EMERGENCY ROOM VISITS, TEACH SIGNS AND SYMPTOMS THAT PUT PATIENT AT RISK, WHEN TO NOTIFY NURSE/PHYSICIAN OF COMPLICATIONS/DECLINE, AND WHEN TO CALL 911.] Future Scheduled Test HEART FAIL URE MONITORING RN/CASHIER CREDIT/CYTOGENETICS TECHNOLOGIST TO MONITOR PATIENT FOR SIGNS AND SYMPTOMS OF HEART FAILURE EXACERBATION, MONITOR FOR ADHERENCE WITH MEDICATION AND HEART FAILURE MANAGEMENT REGIMEN. [code = HEART FAILURE MONITORING RN/CASHIER CREDIT/CYTOGENETICS TECHNOLOGIST TO MONITOR PATIENT FOR SIGNS AND SYMPTOMS OF HEART FAILURE EXACERBATION, MONITOR FOR ADHERENCE WITH MEDICATION AND HEART FAILURE MANAGEMENT REGIMEN.] Future Scheduled Test DIABETES M ONITORING RN/CASHIER CREDIT/CYTOGENETICS TECHNOLOGIST TO MONITOR BLOOD SUGAR LOG FOR BLOOD SUGAR READINGS THAT ARE BEING CHECKED BY PATIENT VIA CGM. PATIENT THERAPEUTIC BLOOD SUGAR PARAMETERS ARE 70 - 350. REPORT BLOOD SUGARS OUT OF RANGE TO PHYSICIAN. NURSE MAY PERFORM FINGER STICK BLOOD GLUCOSE NEEDED FOR SIGNS AND SYMPTOMS OF HYPO AND HYPERGLYCEMIA. RN/CASHIER CREDIT/CYTOGENETICS TECHNOLOGIST TO MONITOR ADHERENCE OF PATIENT PERFORMING DIABETIC FOOT CARE AND MAY PERFORM DIABETIC FOOT CARE PRN. RN/CASHIER CREDIT/CYTOGENETICS TECHNOLOGIST TO MONITOR FOR ADHERENCE TO DIABETIC SELF-CARE AND MANAGEMENT INCLUDING MEDICATIONS. [code = DIABETES MONITORING RN/CASHIER CREDIT/CYTOGENETICS TECHNOLOGIST TO MONITOR BLOOD SUGAR LOG FOR BLOOD SUGAR READINGS THAT ARE BEING CHECKED BY PATIENT VIA CGM. PATIENT THERAPEUTIC BLOOD SUGAR PARAMETERS ARE 70 - 350. REPORT BLOOD SUGARS OUT OF RANGE TO PHYSICIAN. NURSE MAY PERFORM FINGER STICK BLOOD GLUCOSE NEEDED FOR SIGNS AND SYMPTOMS OF HYPO AND HYPERGLYCEMIA. RN/CASHIER CREDIT/CYTOGENETICS TECHNOLOGIST TO MONITOR ADHERENCE OF PATIENT PERFORMING DIABETIC FOOT CARE AND MAY PERFORM DIABETIC FOOT CARE PRN. RN/CASHIER CREDIT/CYTOGENETICS TECHNOLOGIST TO MONITOR FOR ADHERENCE TO DIABETIC SELF-CARE AND MANAGEMENT INCLUDING MEDICATIONS.] Future Scheduled Test MEDICATION MANAGEMENT; RN/CYTOGENETICS TECHNOLOGIST/CASHIER CREDIT TO REVIEW MEDICATIONS FOR INTERACTIONS, EFFECTIVENESS OF DRUG THERAPY, AND SIGNS/SYMPTOMS OF ADVERSE REACTIONS. MAY INSTRUCT AND REINFORCE MEDICATION TEACHING RELATED TO THE USE OF MEDICATIONS, DOSAGE, FREQUENCY, PURPOSE, SIDE EFFECTS, AND TO REPORT COMPLICATIONS. [code = MEDICATION MANAGEMENT; RN/CYTOGENETICS TECHNOLOGIST/CASHIER CREDIT TO REVIEW MEDICATIONS FOR INTERACTIONS, EFFECTIVENESS OF DRUG THERAPY, AND SIGNS/SYMPTOMS OF ADVERSE REACTIONS. MAY INSTRUCT AND REINFORCE MEDICATION TEACHING RELATED TO THE USE OF MEDICATIONS, DOSAGE, FREQUENCY, PURPOSE, SIDE EFFECTS, AND TO REPORT COMPLICATIONS.] Future Scheduled Test AGENCY MAY PERFORM A RESUMPTION OF CARE VISIT FOLLOWING ANY HOSPITAL ADMISSION. PT TO EVALUATE, OBSERVE / ASSESS, AND MONITOR, PHARMACY TECHNICIAN PER DIEM TO OBSERVE AND MONITOR, PROVIDE SKILLED THERAPEUTIC INTERVENTION, ACTIVITY, EDUCATION, AND TRAINING TO ADDRESS; PT/PHARMACY TECHNICIAN PER DIEM TO PROVIDE GAIT TRAINING FOR IMPROVED MOBILITY AND /OR TO NORMALIZE GAIT PATTERN NEUROMUSCULAR RE-EDUCATION / BALANCE / POSTURAL CONTROL (PT) THERAPEUTIC EXERCISES AND ESTABLISHING A HOME EXERCISE PROGRAM (PT/PHARMACY TECHNICIAN PER DIEM) SIT TO/FROM STAND TRANSFERS (PT/PHARMACY TECHNICIAN PER DIEM) PT TO ASSESS / PHARMACY TECHNICIAN PER DIEM TO MONITOR FOR AND REPORT EARLY SIGNS OF ANTICOAGULANT TOXICITY TO THE PHYSICIAN AND/OR THE RN CLINICAL NETWORK ENGINEER ADMINISTRATOR FOR PHYSICIAN NOTIFICATION AND TO PROVIDE PATIENT/CAREGIVER EDUCATION ON ANTICOAGULANT THERAPY PT / PHARMACY TECHNICIAN PER DIEM TO MONITOR AND EDUCATE ON OXYGEN SATURATION DURING ADLS/IADLS, NOTIFY PHYSICIAN AND/OR THE RN CLINICAL NETWORK ENGINEER ADMINISTRATOR FOR PHYSICIAN NOTIFICATION AND IF O2 SATS BELOW PHYSICIAN ORDERED PARAMETERS AFTER 10 MIN OF REST PT TO ASSESS / PHARMACY TECHNICIAN PER DIEM TO MONITOR FOR HEART FAILURE EXACERBATION AND RECORD PATIENT REPORTED WEIGHT, AND NOTIFY THE PHYSICIAN AND/OR THE RN CLINICAL NETWORK ENGINEER ADMINISTRATOR FOR PHYSICIAN NOTIFICATION OF HF EXACERBATION (2LB WEIGHT GAIN IN 1 DAY, 5LBS IN A WEEK OR 5 LBS OVER BASELINE; INCREASED SOB, EDEMA, NEEDING MORE PILLOWS AT NIGHT, CRACKLES IN BASIS OF THE LUNGS OR PMI SHIFT) PT TO ASSESS / PHARMACY TECHNICIAN PER DIEM TO MONITOR CARDIO/RESPIRATORY SYSTEM; AND NOTIFY THE PHYSICIAN AND/OR THE RN CLINICAL NETWORK ENGINEER ADMINISTRATOR FOR PHYSICIAN NOTIFICATION FOR EARLY SIGNS AND SYMPTOMS OF EXACERBATION OR DETERIORATION. PT/PHARMACY TECHNICIAN PER DIEM TO IDENTIFY FALL RISK FACTORS; EDUCATE THE PATIENT/CAREGIVER ON WAYS TO REDUCE FALL RISK FACTORS AND ESTABLISH HOME EXERCISE PROGRAM TO MINIMIZE FALL RISK. MAY TEACH THE PATIENT FLOOR RECOVERY WHEN CLINICALLY APPROPRIATE PT / PHARMACY TECHNICIAN PER DIEM MAY EDUCATE ON PAIN MANAGEMENT CLINICALLY INDICATED, INCLUDING NON-PHARMACOLOGICAL PAIN REDUCTION TECHNIQUES [code = AGENCY MAY PERFORM A RESUMPTION OF CARE VISIT FOLLOWING ANY HOSPITAL ADMISSION. PT TO EVALUATE, OBSERVE / ASSESS, AND MONITOR, PHARMACY TECHNICIAN PER DIEM TO OBSERVE AND MONITOR, PROVIDE SKILLED THERAPEUTIC INTERVENTION, ACTIVITY, EDUCATION, AND TRAINING TO ADDRESS; PT/PHARMACY TECHNICIAN PER DIEM TO PROVIDE GAIT TRAINING FOR IMPROVED MOBILITY AND /OR TO NORMALIZE GAIT PATTERN NEUROMUSCULAR RE-EDUCATION / BALANCE / POSTURAL CONTROL (PT) THERAPEUTIC EXERCISES AND ESTABLISHING A HOME EXERCISE PROGRAM (PT/PHARMACY TECHNICIAN PER DIEM) SIT TO/FROM STAND TRANSFERS (PT/PHARMACY TECHNICIAN PER DIEM) PT TO ASSESS / PHARMACY TECHNICIAN PER DIEM TO MONITOR FOR AND REPORT EARLY SIGNS OF ANTICOAGULANT TOXICITY TO THE PHYSICIAN AND/OR THE RN CLINICAL NETWORK ENGINEER ADMINISTRATOR FOR PHYSICIAN NOTIFICATION AND TO PROVIDE PATIENT/CAREGIVER EDUCATION ON ANTICOAGULANT THERAPY PT / PHARMACY TECHNICIAN PER DIEM TO MONITOR AND EDUCATE ON OXYGEN SATURATION DURING ADLS/IADLS, NOTIFY PHYSICIAN AND/OR THE RN CLINICAL NETWORK ENGINEER ADMINISTRATOR FOR PHYSICIAN NOTIFICATION AND IF O2 SATS BELOW PHYSICIAN ORDERED PARAMETERS AFTER 10 MIN OF REST PT TO ASSESS / PHARMACY TECHNICIAN PER DIEM TO MONITOR FOR HEART FAILURE EXACERBATION AND RECORD PATIENT REPORTED WEIGHT, AND NOTIFY THE PHYSICIAN AND/OR THE RN CLINICAL NETWORK ENGINEER ADMINISTRATOR FOR PHYSICIAN NOTIFICATION OF HF EXACERBATION (2LB WEIGHT GAIN IN 1 DAY, 5LBS IN A WEEK OR 5 LBS OVER BASELINE; INCREASED SOB, EDEMA, NEEDING MORE PILLOWS AT NIGHT, CRACKLES IN BASIS OF THE LUNGS OR PMI SHIFT) PT TO ASSESS / PHARMACY TECHNICIAN PER DIEM TO MONITOR CARDIO/RESPIRATORY SYSTEM; AND NOTIFY THE PHYSICIAN AND/OR THE RN CLINICAL NETWORK ENGINEER ADMINISTRATOR FOR PHYSICIAN NOTIFICATION FOR EARLY SIGNS AND SYMPTOMS OF EXACERBATION OR DETERIORATION. PT/PHARMACY TECHNICIAN PER DIEM TO IDENTIFY FALL RISK FACTORS; EDUCATE THE PATIENT/CAREGIVER ON WAYS TO REDUCE FALL RISK FACTORS AND ESTABLISH HOME EXERCISE PROGRAM TO MINIMIZE FALL RISK. MAY TEACH THE PATIENT FLOOR RECOVERY WHEN CLINICALLY APPROPRIATE PT / PHARMACY TECHNICIAN PER DIEM MAY EDUCATE ON PAIN MANAGEMENT CLINICALLY INDICATED, [...] PAIN MANAGEMENT TECHNIQUES EVIDENCED BY REDUCED PAIN Progress Notes Progress Notes <paragraph>[Visit Date: 2024 by ROSENDO JOHN LPN]:</paragraph><paragraph>PATIENT ALERT AND ORIENTED X3 WITH FORGETFULNESS AT TIMES. PATIENTS LS CLEAR BILATERAL AND TRACE EDEMA TO LOWER EXTREMITIES. WEIGHT STEADY. PATIENT HAS CHRONIC BACK PAIN 3-10 AND HAS PAIN PUMP FOR PAIN CONTROL. PATIENT NOT USING ANY DEVICE TO AMBULATE. SN EDUCATED PATIENT ON SAFETY WHEN AMBULATING AND TRANSFERRING BY GETTING UP SLOWLY AND WEARING SUPPORTIVE FOOT WEAR FOR BALANCE. PATIENT VERBALIZED UNDERSTANDING. PATIENT IS HOMEBOUND RELATED TO DECREASE STRENGHT AND POOR ENDURANCE. MAKING IT A TAXING EFFORT TO LEAVE THE HOME.</paragraph> Encounters Start Date/Time End Date/Time Encounter Type Admission Type Attending Clinicians Care Facility Care Department Encounter ID Discharge Date Discharge Status Discharge Condition Discharge Reason Percent Goals Met 2024-11-09 00:00:00 2025-01-07 00:00:00 Outpatient NEW ADMISSION MARTÍN BIR[facility] [id number] 21.74
== END 2024-12-05 14:19 | disposition home or self-care (01) ==
PROVIDERS: PCP Student in an Organized Health Care Education/Training Program; Visit Provider Anesthesiology
DX: M53.3 Sacrococcygeal disorders, not elsewhere classified (principal); G89.29 Other chronic pain; M46.1 Sacroiliitis, not elsewhere classified; M54.51 Vertebrogenic low back pain; G89.4 Chronic pain syndrome; E11.65 Type 2 diabetes mellitus with hyperglycemia
CPT/HCPCS: 99213

== ENCOUNTER → 2024-12-05 14:00 | Outpatient (BNVA) | payer MEDICARE, MEDICAID, SELFPAY | PROVIDERS: PCP Student in an Organized Health Care Education/Training Program; Visit Provider Anesthesiology | DX: M53.3 Sacrococcygeal disorders, not elsewhere classified (principal); M46.1 Sacroiliitis, not elsewhere classified; M54.51 Vertebrogenic low back pain; G89.29 Other chronic pain; E11.65 Type 2 diabetes mellitus with hyperglycemia; Z79.891 Long term (current) use of opiate analgesic; Z96.89 Presence of other specified functional implants | CPT/HCPCS: 99212 ==

== ENCOUNTER 2024-12-19 14:36 | Outpatient (AMB) | payer MEDICARE, MEDICAID, SELFPAY ==
--- OUTSIDE RECORDS SUMMARY | 2024-12-14 14:15 | XMS_ITS | Encounter Summary ---
Author Organization [employer] Address 75 [facility] 7t [place] [address] Care Team Providers Care Chemical Applicator Name Role Phone Bea Lacey MD Primary Care Provider [phone] Mariely Dennison PharmD Unavailable [phone] Reason for Visit * Reason Comments Dental Exam Routine Cleaning Encounter Details Date Type Department Care Team (Late st Contact Info) Description 12/14/2024 2:15 PM EDT Office Visit [facility] ADULT DENT[facility] [address] [place], [place] [phone] Daniele Barlow Dental calculus (Primary Dx) Social History Tobacco Use Types [...] AM EDT documented as of this encounter Last Filed Vital Signs Vital Sign Reading Time Taken Comments Blood Pressure 130/70 12/14/2024 4:12 PM EDT Pulse 68 12/14/2024 4:12 PM EDT Temperature - - Respiratory Rate - - Oxygen Saturation - - Inhaled Oxygen Concentration - - Weight - - Height - - Body Mass Index - - documented in this encounter Progress Notes * Daniele Barlow - 12/14/2024 2:15 PM EDT Patient ID: Malik Maki is a 74 y.o. adult. Time Out: Timeout Date: 12/14/24, Timeout Time: 1409 (recall) Location: [facility] Tooth: Maxilla and Mandible Procedure: Exam, X-rays, and Prophylaxis Verified the above with patient, assistant toddler teacher, and provider. Confirmed via patient's chart, intraorally and by radiographs. Data Services Developer: not applicable Medical Hx: Vitals: Blood pressure 130/70, pulse 68. Medications, Med Hx reviewed with patient and updated in chart. Treatment Provided Dental procedures in this visit D1110 - PROPHYLAXIS - ADULT (Completed) Service provider: Daniele Cespedes provider: Cyndy Carpio DDS D1330 - ORAL HYGIENE INSTRUCTIONS (Completed) Service provider: Daniele Barlow Billbrianda provider: Cyndy Carpio DDS D9450 - CASE PRESENTATION, DETAILED AND EXTENSIVE TREATMENT PLANNING (Completed) Service provider: Daniele Barlow Billbrianda provider: Cyndy Carpio DDS D0274 - BITEWINGS - 4 RADIOGRAPHIC IMAGES (Completed) Service provider: Daniele Barlow Billing provider: Cyndy Carpio DDS D0220 - INTRAORAL - PERIAPICAL FIRST RADIOGRAPHIC IMAGE (Completed) Service provider: Daniele Barlow Billing provider: Cyndy Carpio DDS D0230 - INTRAORAL - PERIAPICAL EACH ADDITIONAL RADIOGRAPHIC IMAGE (Completed) Service provider: Daniele Barlow Billing provider: Cyndy Carpio DDS Instruments Used: Ultrasonic Scalers and Prophy angle Fluoride: N/A Oral Cancer Screening: No lesions Head/Neck Exam: No Lesions Calculus: Light and Localized Plaque: Light and Localized Stain: Light and Localized Bleeding: Light and Localized Gingiva: Healthy and Perio Charting Completed [place]: Good Perio Chart: Completed Oral hygiene instructions provided to patient including brushing technique and flossing. Recommendations: [place] two times daily, modified garcia technique, Floss daily Recall Frequency: 6 mo NV: jackie Hygienist: Daniele Barlow RDH * Shyam Gillette DDS - 12/14/2024 2:15 PM EDT Dental procedures in this visit D1110 - PROPHYLAXIS - ADULT (Completed) Service provider: Daniele Barlow Billbrianda provider: Cyndy Carpio DDS D1330 - ORAL HYGIENE INSTRUCTIONS (Completed) Service provider: Daniele Barlow Billing provider: Cyndy Carpio DDS D9450 - CASE PRESENTATION, DETAILED AND EXTENSIVE TREATMENT PLANNING (Completed) Service provider: Daniele Barlow Billing provider: Cyndy Carpio DDS D0274 - BITEWINGS - 4 RADIOGRAPHIC IMAGES (Completed) Service provider: Daniele Barlow Billing provider: Cyndy Carpio DDS D0220 - INTRAORAL - PERIAPICAL FIRST RADIOGRAPHIC IMAGE (Completed) Service provider: Daniele Barlow Billing provider: Cyndy Carpio DDS D0230 - INTRAORAL - PERIAPICAL EACH ADDITIONAL RADIOGRAPHIC IMAGE (Completed) Service provider: Daniele Barlow Billbrianda provider: Cyndy Carpio DDS D0120 - PERIODIC ORAL EVALUATION - ESTABLISHED PATIENT (Completed) Service provider: Shyam Gillette DDS Billing provider: Cyndy Carpio DDS Patient ID: Malik Maki is a 74 y.o. adult. Time Out: Date: 12/14/2024 Location: [facility] Tooth: Maxilla and Mandible Procedure: Exam Verified the above with patient, assistant toddler teacher, and provider. Confirmed via patient's chart, intraorally and by radiographs. Data Services Developer: not applicable 74 y.o. years old adult presents for a periodic examination done by Dr. Shyam Gillette DDS CONSENT FORM INITIALED & SIGNED BY THE PATIENT AND COUNTER SIGNED BY Dr. Shyam iGllette DDS Chief Complaint: I'm here for an exam Medical History: Patient does not report any changes in health issues that could alter the Treatment Plan. Medical consult / medical clearance needed: None at this time KENAITZE: Pain: No Duration: N/A Scale of pain from 1 - 10: N/A Aggravating factors: N/A Pain radiating: N/A Postural variation: No Allergies: Reviewed in EHR Medications: Reviewed in EHR Vital signs: Blood pressure 130/70, pulse 68. Habits: Smoking: No Drinking: No Brushing: Yes. 2x. Flossing: Yes. Cancer screening: Extra-oral: No palpable lymph nodes or lymph adenopathies. No facial asymmetries. No extraoral swelling or erythematous lesions. Patient has brain stimulator pack present and palpable on left side ofneck. Intraoral: Buccal mucosa, gingiva, floor and roof of the mouth, pharynx, and all surfaces of the tongue pink and normal. No erythematous lesions or intraoral swellings. Extra-oral examination TMJ Deviation - No Clicking - No Tenderness - No Facial symmetry - Symmetrical Lymph nodes - WNL Cheeks - WNL Intraoral examination Soft tissues - WNL Palate - WNL Tongue - WNL Buccal mucosa - WNL Floor of mouth - WNL Vestibules - WNL Glands - WNL Duct area - WNL Oropharynx - WNL Gingiva Color - [place] Contour - Smooth Recession - Yes Consistency - Firm Texture - Stippled Bleeding on probing - N/A Radiographs Full Mouth X-rays taken on: 2023 4 BW + 2 PA taken on 2024 Quality are of diagnostic value and appropriate for radiographic analysis? : Yes Radiograph interpretation Thickened PDL on: No Abnormal root resorption: No Horizontal Bone Resorption: Yes Abnormal root formation: No Vertical Bone Loss: Yes Periodontal diagnosis: Periodontitis Stage I Grade A Hard tissue exam Missing - as charted Plaque - Yes Calculus - Yes Abfraction - No Mobility - No Furcation - No Occlusion Overbite (mm): N/A. Overjet (mm): N/A Diastema: N/A Right Molar Occlusion: Class III Left Molar Occlusion: Class III Right Canine Occlusion: Class I Left Canine Occlusion: Class I Midline: Centered Anterior/Posterior crossbite: Edge to Edge bite. Arches: Wide Wear Facets: Yes Treatment discussion Findings, risks, benefits and alternatives discussed with pt. Reviewed radiographs with pt. Pointed out areas of radiographic calculus. Discussed sequelae of bacteria on gingiva and underlying bone. Recommended prophy, OHI, and retreatment of #12 due to missed canal Advised increased frequency of brushing and flossing. Patient was told again about the need to have the existing Endodontic treatment on tooth #12 redone. He is waiting for the tooth to flare up due to financial issues. He will need an extraction of tooth #12. TREATMENT PLAN Phase 1 - Prophy + OHI Phase 2 - Restos Phase 3 - Extraction #12 Patient agrees with treatment plan. Patient satisfied, dismissed in stable condition. NV: Restorations Provider: Dr. Shyam Gillette DDS Dental Restoration Officer: Cass Supervising Dentist: Dr. Carpio documented in this encounter Plan of Treatment Upcoming Encounters Date Type Department Care Team (Late st Contact Info) Description 12/26/2024 2:00 PM EST Office Visit [facility] ADULT DENTAL [address] [place] [address] Shyam Gillette DDS [address] [place] [address] 02/19/2025 2:00 PM EST Office Visit [facility] MED & PEDS [address] [place] [address] Cat Dumont CNP [address] [place] [address] 06/18/2025 1:30 PM EDT Office Visit [facility] ADULT DENT[facility] [address] [place] [address] Daniele Barlow Scheduled Orders Name Type Priority Associated Diagnoses Orde r Schedule 2 MO 2 MO RESIN-BASED COMPOSITE - 2 SURF, POSTERIOR Dental Routine [address] arting 12/14/2024 13 MOD 13 MOD RESIN-BASED COMPOSITE - 3 SURF, POSTERIOR Dental Routine 1 Occurrences starting 12/14/2024 PROPHYLAXIS - ADULT Dental Routine 1 Occ urrences starting 12/14/2024 documented as of this encounter Procedures Procedure Name Priority Date/Time Associated Diagnosis Comments PROPHYLAXIS - ADULT Routine 12/14/2024 2 :15 PM EDT PERIODIC ORAL EVALUATION - ESTABLISHED PATIENT Routine 12/14/2024 2:15 PM EDT ORAL HYGIENE INSTRUCTIONS Routine 2024 2:15 PM EDT INTRAORAL - PERIAPICAL FIRST RADIOGRAPHIC IMAGE Routine 12/14/2024 2:15 PM EDT INTRAORAL - PERIAPICAL EACH ADDITIONAL RADIOGRAPHIC IMAGE Routine 12/14/2024 2:15 PM EDT CASE PRESENTATION, DETAILED AND EXTENSIVE TREATMENT PLANNING Routine 12/14/2024 2:15 PM EDT BITEWINGS - 4 RADIOGRAPHIC IMAGES Routine 12/14/2024 2:15 PM EDT documented in this encounter Visit Diagnoses Diagnosis Dental calculus- Primary Accretions on teeth documented in this encounter Additional Health Concerns Assessment Noted Time PHQ-9 Depression Total Score: 9 09/19/19 25 9:36 AM EDT documented as of this encounter Care Teams Chemical Applicator Relationship Specialty Start Date End Date Bea Lacey MD [address] [place] [address] PCP - General Family Medicine 09/22/22 Mariely Dennison PharmD [address] [place] [address] Pharmacist Internal Medicine 07/03/24 [facility] 11/09/24 documented as of this encounter
--- OUTSIDE RECORDS SUMMARY | 2024-12-18 09:15 | XMS_ITS | Encounter Summary ---
Author Organization [employer] Address [address] [facility] [address] [place] [address] Care Team Providers Care Assigner Name Role Phone Bea Lacey MD Primary Care Provider [phone] Mariely Dennison PharmD Unavailable [phone] Reason for Visit * Reason Comments Follow-up Hospital discharge Encounter Details Date Type Department Care Team ([facility] st Contact Info) Description 12/18/2024 9:15 AM EDT Office Visit [facility] MED [facility]ED[facility] [address], [place] [phone] Cat Dumont CNP [address] [place], [place] [phone] Essential tremor (Primary Dx); Type 2 diabetes mellitus with hyperglycemia, without long-term current use of insulin (HCC); Chronic right-sided low back pain without sciatica; Chronic pain in left shoulder Social History Tobacco Use Types Packs/Day Years [...] Sign Reading Time Taken Comments Blood Pressure 112/62 12/18/2024 9:36 AM EDT Pulse 80 12/18/2024 9:36 AM EDT Temperature 36.2 C (97.2 F) 12/18/2024 9:36 AM EDT Respiratory Rate 12 12/18/2024 9:36 AM EDT Oxygen Saturation 96% 12/18/2024 9:36 AM EDT Inhaled Oxygen Concentration - - Weight 86.2 kg (190 lb) 12/18/2024 9:36 AM EDT Height 172.7 cm (5' 8 ) 12/18/2024 9:36 AM EDT Body Mass Index 28.89 12/18/2024 9:36 AM EDT documented in this encounter Progress Notes * Cat Dumont CNP - 12/18/2024 9:15 AM EDT Subjective Patient ID: Malik Maki is a 74 y.o. adult who presents for HDF follow up. [facility] (10/22/24-10/28/24) Patient presented for evaluation following a fall at home in the setting of weakness and recurrent falls following the adjustment of the setting in their [employer] DBS not felt to be causing symptoms. Evaluated by neurosurgery who recommended outpatient follow up and no inpatient intervention. There was concern for polypharmacy and baclofen dose decreased and hydroxyzine and mirtazpine were discontinued. Benzodiazepine decreased to twice a day with eventual plan to wean off. [facility] (10/28/24-11/08/24) - updated 12/17/24 [place] [facility] [place] Linzess stopped due to chronic diarrhea with improvement. Patient's overall stay was medically uneventful. Continued on diclofenac gel to posterior of hands twice aday. Stable for discharge home with medications and services due to homebound status. Pt reports he has noticed his symptoms of weakness and falling have substantially improved since his medication adjustments. Today pt presents with following concerns: -ongoing L shoulder pain, chronic problem, reports he has total arthroscopy of his shoulder and hasappointment for revision with [facility]. Reports limited ROM and pain. - pain in BLE in upper thigh and hip area. Reports he has continuous analgesic pump, reports current medication being infused is fentanyl. Reports he has appointment scheduled with pain specialist tomorrow ([facility]) for titration. Reports ongoing home PT. -reports noticeable increase in RUE essential tremor, reports issues holding objects, writing signature. He does follow with neurology but reports it has been some time since he has seen this provider, has follow up in December. -pt reports his goal is to get back into the gym as this serves as a physical and social experiencefor him. Review of Systems Objective Vitals: 12/18/24 0936 BP: 112/62 Pulse: 80 Resp: 12 Temp: 97.2 ??F (36.2 ??C) SpO2: 96% Physical Exam Constitutional: Appearance: Normal appearance. HENT: Head: Normocephalic and atraumatic. Neurological: Mental Status: Malik is alert and oriented to person, place, and time. Comments: RUE tremor at rest, increases with intention Psychiatric: Mood and Affect: Mood normal. Behavior: Behavior normal. Judgment: Judgment normal. Comments: Pt does appear to lose train of thought mid conversation. Assessment/Plan Problem List Items Addressed This Visit Type 2 diabetes mellitus with hyperglycemia, without long-term current use of insulin (HCC) Relevant Orders POCT A1c (Completed) POCT glucose manually resulted (Completed) Lab Results Component Value Date HGBA1C 6.6 (A) 12/18/2024 A1c at goal <7% Stable No changes in meds Advised Low sugar and Low carb diet. Counseled regarding self-monitoring of blood glucose. Counseled re: potential co-morbidities including cardiovascular disease. Counseled re: potential co-morbidities include neuropathy and retinopathy. Counseled re: potential co-morbidities include nephropathy. Essential tremor - Primary Advised pt to f/u with neurologist to further evaluate progression of symptoms. Also advised pt to discuss his new short term memory concerns with specialist. Other Visit Diagnoses Chronic right-sided low back pain without sciatica Chronic pain in left shoulder Advised pt to f/u with pain specialist for analgesic pump adjustment. Pt has f/u with [facility] for shoulder scope revision I recommended PT, pt will await until [facility] sets him up for this. I advised continued daily exercise with modification including his pedal bike he uses daily. Follow up in about 2 months (around 02/17/2025) for f/u chronic conditions . documented in this encounter Plan of Treatment Upcoming Encounters Date Type Department Care Team (Late st Contact Info) Description 12/26/2024 2:00 PM EST Office Visit [facility] ADULT DENTAL [address] [place] [address] Shyam Gillette DDS [address] [place] [address] 02/19/2025 2:00 PM EST Office Visit [facility] MED [facility] [address] [place] [address] Cat Dumont CNP [address] [place] [address] 06/18/2025 1:30 PM EDT Office Visit [facility] ADULT DENTAL [address] [place] [address] Daniele Barlow documented as of this encounter Procedures Procedure Name Priority Date/Time Associated Diagnosis Comments POCT GLYCATED HEMOGLOBIN, TOTAL Routine 12/18/2024 9:39 AM EDT Type 2 diabetes mellitus with hyperglycemia, without long-term current use of insulin (HCC) POCT GLUCOSE Routine 12/18/2024 9:38 AM EDT Type 2 diabetes mellitus with hyperglycemia, without long-term current use of insulin (HCC) documented in this encounter Results * (ABNORMAL) POCT A1c (12/18/2024 9:39 AM EDT) Hemoglobin A1C 6.6(A) 4.0 - 5.7 % QC Media Lot # Comment:[id number] Lot# Expiration Date Comment:06/14/2026 Blood 12/18/2024 9:39 AM EDT Result [facility] POINT OF CARE TEST ENTER/ EDIT ORDERABLES Final Result * (ABNORMAL) POCT glucose manually resulted (12/18/2024 9:38 AM EDT) Glucose Blood, POC 257(A) 60 - 200 mg/dL QC Media Lot # Comment:[id number] Lot# Expiration Date Comment:03/31/2025 Blood Capillary blood specimen / Unknown 12/18/2024 9:38 AM EDT Result [facility] POINT OF CARE TEST ENTER/ EDIT ORDERABLES Final Result documented in this encounter Visit Diagnoses Diagnosis Essential tremor- Primary Type 2 diabetes mellitus with hyperglycemia, without long-term current use of insulin ([facility]) Chronic right-sided low back pain without sciatica Chronic pain in left shoulder Pain in joint, shoulder region documented in this encounter Additional Health Concerns Assessment Noted Time PHQ-9 Depression Total Score: 9 09/19/19 25 9:36 AM EDT documented as of this encounter Care Teams Assigner Relationship Specialty Start Date End Date Bea Lacey MD [address] [place] [address] PCP - General Family Medicine 09/22/22 Mariely Dennison PharmD [address] [place] [address] Pharmacist Internal Medicine 07/03/24 [facility] 11/09/24 documented as of this encounter
--- NOTE | 2024-12-19 14:38 | A.OFFVIS_ITS ---
Vital Signs 12/19/24 14:39 Height 5 ft 8 in Weight 191 lb BMI 29.0 BP 122/59 L Blood Pressure Location Rt brachial Position Sitting Respiration 16 Pulse 71 Pulse Source Pulse Oximeter Pulse Oximetry (%) 96 Oxygen Delivery Method Room Air Intake Visit Reasons: 2 WEEK FOLLOW UP Director Of Intelligence Required: No Accompanied by: Self / Same As Patient Allergies grass pollen Allergy (Mild, Verified 12/19/24 14:43) unknown tree and shrub pollen Allergy (Mild, Verified 12/19/24 14:43) itchy eyes, sneeze, runny nose No Known Drug Allergies Allergy (Unknown, Verified 12/19/24 14:43) none plastic tape Allergy (Unknown, Uncoded 07/04/24 13:03) irritation HPI Comments Details: Malik is in my office today for the pain pump adjustment. Reports improvement since we last time increase the doses of his fentanyl in his pain pump. He reported that before the increase his pain was 8/10, today he came with average pain 6/10. This is certain improvement and he documents improved mobility. Today the pain pump was adjusted against see as below and I increased the dose of the medication 49%. I will see this patient in two weeks for yet another pump adjustment. We are trying to obtain cardiology clearance to schedule patient for spinal cord stimulator removal. I will see this patient in 2 weeks, possibly earlier if we will be able to schedule him for the removal of the spinal cord stimulator Nevro. See the pump refill as below. Prior: History of bilateral paintech sacroiliac joint stabilization with fusion. He had significant improvement however he fell in his kitchen and started to experience lot of pain again. He was sent for the x-ray of the pelvis and it appears to be that although both implantation elements are in sacroiliac joints 1 of them got shifted vertical it to the upper portion of the joint and now has a lesser chance to provide enough of the space to form the sacroiliac bridge. Most likely that is why patient started to experience pain again. We decided to treat his pain with addition of the opioids into intra thecal pain pump. For his next pump refill I will fill it up with hydromorphone 150 micro g per mL and bupivacaine 8 milligrams/mL. I will continue to increase concentration of hydromorphone until patient's satisfaction. To temporize his pain level now I will prescribe him short course of Percocet see as below. He is interested in sacroiliac joint fusion now performed by the surgeon with surgical screws. We will find out where this procedure can not be performed and we will refer patient there. He also would like to call [facility] goodwill representative and ask him to increase stimulation levels on the machine Prior: This patient is very unfortunate gentleman who is suffering from multiple pain generators. He received multiple forms of treatment to concur the existing pain generators pain. He tried multiple sessions of physical therapy in the past and he continues from time to time to return to his home exercise program to help his pain. He tried multiple medications including NSAIDs muscle relaxants and opioids. NSAIDs give him severe side effects. He is very much concerned about addictive properties of opioids. He reports muscle relaxants help his pain minimally if any. He in the past was injected with multiple procedures including medial branch blocks, radiofrequency ablations, facet joint injections, and eventually he was not very satisfied with results of this inject ions. He was implanted with Nevro spinal cord stimulator which he reports helped his pain radiating into the bilateral lower extremities. He also reported axial back pain aggravated with sitting and flexing forward and on the MRI he was discovered with Modic type changes in the lumbar spine. Intraseptal procedure was performed with good results for pain aggravated with prolonged sitting however pain which is lower than the lumbar spine in the projection of his pelvis actually getting worse background of alleviated lumbar spine pain. To treat this condition he was implanted with intrathecal pain pump however the intrathecal pain pump was not very instrumental to alleviate his pain. He still receives intrathecal pain pump bupivacaine only however reports significant and advanced pain in the projection of the bilateral sacroiliac joints. He had MRI of the lumbar spine which did not demonstrate any red flags and he did have abdominal and pelvic CT scan which did not demonstrate in pelvis any abnormalities which could be suspected as the pain generators related to sacroiliac joint, sacral bones or iliac bones. 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, lumbar region PVD (peripheral vascular disease) Mood disorder On beta ruddy at home Benign essential tremor CVA (cerebral vascular accident) IDDM (insulin dependent diabetes mellitus) Sleep apnea Chronic renal insufficiency Myocardial infarction CHF (congestive heart failure) CAD (coronary artery disease) AAA (abdominal aortic aneurysm) Arrhythmia On anticoagulant therapy Elevated cholesterol HTN (hypertension) History of ischemic cardiomyopathy 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 Surgical History (Updated 05/21/24 @ 10:18 by Niki Ortiz, RN) History of surgery History of surgery (~2023) Hx of brain surgery (05/10/24) Hx of shoulder surgery History of laparoscopic cholecystectomy (12/08/22) History of surgery History of surgery History of PTCA Hx of parathyroidectomy Hx of CABG History of hernia repair Hx of gastric bypass Hx of endoscopy History of colonoscopy Family History Father Hx of congenital heart disease Mother Hx of heat stroke Social History (Updated 05/21/24 @ 09:54 by Niki Ortiz, CRISTELA) Household Members: None Housing: Apartment Are you a primary home care rn to a significant other at home: No Do you presently have visiting nurse or other home services: Yes (COUNSELING AIDE 2 hours per week) Alcohol intake: current Alcohol intake frequency: does not drink Comment: counts correct Patient Tobacco Use Status: Former Tobacco user Tobacco use type: Cigarette Second Hand Smoke Exposure: No Review of Systems Const All systems reviewed & are unremarkable except as noted in HPI and below ENT Reports Normal hearing present Neuro Reports Normal hearing present and Denies Abnormal speech present Physical Exam Vital Signs: Last Vital Signs Pulse 71 12/19/24 14:39 Resp 16 12/19/24 14:39 BP 122/59 L 12/19/24 14:39 Pulse Ox 96 12/19/24 14:39 Oxygen Delivery Method Room Air 12/19/24 14:39 BMI result Body Mass Index 29.0 Const General: cooperative, no acute distress, alert and well groomed Orientation/consciousness: patient oriented x3 HEENT Head: Yes normocephalic and Yes atraumatic Ears: hearing grossly normal bilaterally Eyes General: appearance normal, both eyes and all related structures Eyelids: Yes eyelids normal Pupils: Equal, round and reactive pupils present EOM: EOMs intact bilaterally Neck Neck: Yes normal visual inspection and Yes no JVD Resp Effort & Inspection: normal respiratory effort, able to speak in complete sentences and no audible wheezes Cardio Jugular venous distension: no JVD Back/Spine/Pelvis Other: Tenderness of palpation paraspinal spinal region in the entire spine cervical thoracic and lumbar. SLR is negative with foot dorsiflexion. Flexing forward aggravates the pain. Flexing backwards does not change the pain. James test, Gaenslen test, pelvic compression test, pelvic destruction test, positive on the left as well as on the right. Neuro General: patient oriented x3, moves all extremities and Normal light touch and pain sensation Cranial nerves: Yes Equal, round and reactive pupils present and Yes Normal hearing present Cognition (Neuro): normal cognition Speech: No Abnormal speech present Assessment & Plan Assessment & Plan (1) Chronic left sacroiliac joint pain: Code(s): M53.3 - Sacrococcygeal disorders, not elsewhere classified; G89.29 - Other chronic pain Category: Medical (2) Sacroiliitis: Code(s): M46.1 - Sacroiliitis, not elsewhere classified Category: Medical (3) Vertebrogenic low back pain: Code(s): M54.51 - Vertebrogenic low back pain Category: Medical (4) Chronic pain syndrome: Code(s): G89.4 - Chronic pain syndrome Category: Medical (5) Poorly controlled type 2 diabetes mellitus: Code(s): E11.65 - Type 2 diabetes mellitus with hyperglycemia Category: Medical Plan: Currently pump is still on very small right, see discussion as above. (6) Chronic pain syndrome: Code(s): G89.4 - Chronic pain syndrome Category: Medical Plan: Intrathecal pain pump was interrogated and the dose was increased from 1.2 micro g a day to 1.799 micro g a day Plan Continue observation, we need to obtain cardiology clearance for anesthesia for removal of the spinal cord stimulator Nuria. I would need bipolar electrocautery to complete the procedure to not to affect his brain stimulator. Coding Level of Care Code Est Pt Level 3 (58193) Diagnoses Chronic left sacroiliac joint pain M53.3; G89.29 Sacroiliitis M46.1 Vertebrogenic low back pain M54.51 Chronic pain syndrome G89.4 Poorly controlled type 2 diabetes mellitus E11.65
[2024-12-19 14:39] VITALS: BP 122/59; PULSE 71; RESP 16; O2SAT 96; BMI 29.0
--- OUTSIDE RECORDS SUMMARY | 2024-12-19 18:58 | XMS_ITS | Clinical Summary ---
Author Organization [facility] Address [address] [place] [address] Phone Care Team Providers Care Care Attendant Name Role Phone Halle Fontenot MD Primary Care Provider [phone] Social History Tobacco Use Types Packs/Day Years [...] topic Medical Devices Not on file Insurance [facility] MEDICARE PART A & B [facility] & B [facility] & B [facility] PART A & B [place] MEDICARE PART A & B Care Teams Care Attendant Relationship Specialty Start Date End Date Halle Fontenot MD [address] [place] [id number] PCP - General Family Medicine 03/09/23 Additional Source Comments The information contained in this document represents components of the legal health record. It is not the complete legal health record.[facility]
--- OUTSIDE RECORDS SUMMARY | 2024-12-19 18:58 | XMS_ITS | Encounter Summary ---
Author Organization [employer] Address [address] [facility] [address] [place] [address] Care Team Providers Care Music Minister Name Role Phone Bea Lacey MD Primary Care Provider [phone] Mariely Dennison PharmD Unavailable [phone] Reason for Visit * Reason Onset Date Comments returning call RCT appt 06/26/2024 Encounter Details Date Type Department Care Team ([facility] st Contact Info) Description 06/26/2024 Telephone [facility] D[facility]AL [address] [place], [place] [phone] Sebastián Quintero, DDS [address] [place], [place] [phone] returning call RCT appt Social History Tobacco [...] Description 12/26/2024 2:00 PM EST Office Visit [facility] ADULT DENTAL [address] [place] [address] Shyam Gillette DDS [address] [place] [address] 02/19/2025 2:00 PM EST Office Visit [facility] [address] [place] [address] Cat Dumont CNP [address] [place] [address] 06/18/2025 1:30 PM EDT Office Visit [facility] ADULT DENTAL [address] [place] [address] Daniele Barlow documented as of this encounter Visit Diagnoses Not on filedocumented in this encounter Additional Health Concerns Assessment Noted Time PHQ-9 Depression Total Score: 20 024 10:22 AM EDT documented as of this encounter Care Teams Music Minister Relationship Specialty Start Date End Date Bea Lacey MD [address] [place] [address] PCP - General Family Medicine 09/22/22 Mariely Dennison PharmD [address] [place] [address] Pharmacist Internal Medicine 07/03/24 [facility] 09/01/24 12/02/24 [facility] 11/09/24 documented as of this encounter
--- OUTSIDE RECORDS SUMMARY | 2024-12-19 18:58 | XMS_ITS | Encounter Summary ---
Author Organization [facility] Address [address] [place] [id number] Care Team Providers Care Structural Metal Worker Name Role Phone Bea Lacey MD Primary Care Provider [phone] Encounter Details Date Type Department Care Team (Late st Contact Info) Description 11/11/2024 Lab Requisition [facility] - Main Lab [address] [facility] [place] [address] Lupe Cruz MD [address] [phone] Anemia, unspecified; Other disorders of electrolyte and [...] classified documented in this encounter Care Teams Structural Metal Worker Relationship Specialty Start Date End Date Bea Lacey MD [address] [place] [id number] PCP - General 04/04/23 documented as of this encounter
--- OUTSIDE RECORDS SUMMARY | 2024-12-19 18:58 | XMS_ITS | Clinical Summary ---
Author Organization [facility] Address [address] [place] [address] Care Team Providers Care Box Puller Name Role Phone Bea Lacey Primary Care Provider [phone] Allergies No known active allergies Medications buPROPion [...] I'd recommend he obtain clearance from his director long term care given his history of multiple coronary events. I would also want to seek further clarification from his neurosurgeon as to what other clearance is being sought from the neurologist's standpoint. I will be reaching out to Dr. Payan's office. CAD in yurok artery 01/28/2022 Overview (12/30/2023): CABG with multiple [...] Follow-Up 02/22/2024 Health Care Proxy Review 02/22/2024 [employer] [facility] ual Screening 02/22/2024 Hemoglobin [...] 04/26/2012, Additional history exists Insurance MEDICARE [facility] Care Teams Box Puller Relationship Specialty Start Date End Date Bea Lacey [address] [place] [address] ZACH Lemos [id number] PCP - General Family Medicine 12/26/23
--- OUTSIDE RECORDS SUMMARY | 2024-12-19 18:58 | XMS_ITS | Clinical Summary ---
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 Benign hypertension 12/30/2023 BPH (benign prostatic hyperplasia) 12/30/2023 Bilateral cataracts 12/30/2023 Bilateral tinnitus 12/30/2023 CVA (cerebral vascular accident) ([facility] V24, C DC/[facility] V28) 12/30/2023 Heart failure with normal ej ection fraction ([facility] V24, [facility] V28) 12/30/2023 Hyperlipidemia 12/30/2023 History of parathyroidectomy 12/30/2023 CKD (chronic kidney disease) 12/30/2023 Type 2 diabetes mellitus wit h hyperglycemia ([facility] V24, [facility] V28) 12/30/2023 CAD in [place] artery 12/30/2023 Erectile dysfunction due to diseases classified elsewhere 12/30/2023 Benign essential tremor 12/30/2023 Encounters Date Type Department Care Team Description 11/11/2024 Lab Requisition [facility] - Main Lab [address] [facility] [place] [address] Lupe Cruz MD Anemia, unspecified; Other disorders of electrolyte and fluid balance, not elsewhere classified 11/04/2024 Lab Requisition [facility] Lab [address] [facility] [place] [address] Lupe Cruz MD Anemia, unspecified; Other disorders of electrolyte and fluid balance, not elsewhere classified 10/30/2024 Lab Requisition [facility] Lab [address] [facility] [place] [address] Lupe Cruz MD Anemia, unspecified; [...] K/mcL LAB HEMETOLOGY METHOD 11/05/2024 1:08 PM [facility] LAB RBC 4.80 4.50 - 5.50 M/mcL LAB HEMETOLOGY METHOD 11/05/2024 1:08 PM [facility] LAB Hemoglobin 12.6(L) 13.5 - 17.5 g/dL LAB HEMETOLOGY METHOD 11/05/2024 1:08 PM [facility] LAB Hematocrit 41.3(L) 42.0 - 54.0 % LAB HEMETOLOGY METHOD 11/05/2024 1:08 PM [facility] LAB MCV 85.9 79.0 - 98.0 FL LAB HEMETOLOGY METHOD 11/05/2024 1:08 PM [facility] LAB MCH 26.2(L) 27.0 - 32.0 pcg LAB HEMETOLOGY METHOD 11/05/2024 1:08 PM EDT [facility] LAB MCHC 30.5(L) 32.0 - 37.0 g/dL LAB HEMETOLOGY METHOD 11/05/2024 1:08 PM EDT [facility] LAB RDW 17.2(H) 11.0 - 15.0 % LAB HEMETOLOGY METHOD 11/05/2024 1:08 PM EDT [facility] LAB Platelets 268 130 - 400 K/mcL LAB HEMETOLOGY METHOD 11/05/2024 1:08 PM EDT [facility] MPV 11.3(H) 7.0 - 11.0 FL LAB HEMETOLOGY METHOD 11/05/2024 1:08 PM EDT [facility] NRBC 0.0 <1.0 % LAB HEMETOLOGY METHOD 11/05/2024 1:08 PM EDT [facility] LAB NRBC Absolute 0.00 <0.10 K/mcL LAB HEMETOLOGY METHOD 11/05/2024 1:08 PM EDT [facility] Blood Venous blood specimen / Unknown Venipuncture / Unknown 11/05/2024 6:38 AM EDT 11/05/2024 11:55 AM EDT us Lupe Cruz MD LAB BLOOD ORDERABLES Fin al Result [facility] LAB [address] [place] [address], * (ABNORMAL) Comprehensive metabolic panel (11/05/2024 6:38 AM EDT) Only the most recent of2 resultswithin the time period is included. Sodium 140 133 - 145 mmol/L LAB CHEMISTRY METHOD 11/05/2024 2:08 PM EDT [facility] Potassium 4.1 3.5 - 5.5 mmol/L LAB CHEMISTRY METHOD 11/05/2024 2:08 PM [facility] Chloride 106 96 - 110 mmol/L LAB CHEMISTRY METHOD 11/05/2024 2:08 PM [facility] CO2 29 21 - 32 mmol/L LAB CHEMISTRY METHOD 11/05/2024 2:08 PM [facility] Anion Gap 5 3 - 11 LAB CHEMISTRY METHOD 11/05/2024 2:08 PM [facility] Glucose 124(H) 70 - 100 mg/dL LAB CHEMISTRY METHOD 11/05/2024 2:08 PM [facility] BUN 12 5 - 25 mg/dL LAB CHEMISTRY METHOD 11/05/2024 2:08 PM [facility] Creatinine 0.83 0.70 - 1.30 mg/dL LAB CHEMISTRY METHOD 11/05/2024 2:08 PM [facility] LAB eGFR 93 >=60 mL/min/1. 73m2 LAB CHEMISTRY METHOD 11/05/2024 2:08 PM [facility] Comment:Calculation based on the Chronic Kidney Disease Epidemiology Collaboration (CKD-EPI) equation refit without adjustment for race. BUN/Creatinine Ratio 14.5 LAB CHEMISTRY METHOD 11/05/2024 2:08 PM [facility] Calcium 8.5 8.5 - 10.5 mg/dL LAB CHEMISTRY METHOD 11/05/2024 2:08 PM [facility] AST (SGOT) 21 10 - 42 unit/L LAB CHEMISTRY METHOD 11/05/2024 2:08 PM [facility] ALT (SGPT) 24 10 - 60 unit/L LAB CHEMISTRY METHOD 11/05/2024 2:08 PM [facility] Alkaline Phosphatase 124(H) 42 - 121 unit/L LAB CHEMISTRY METHOD 11/05/2024 2:08 PM [facility] Total Protein 6.0 6.0 - 8.0 g/dL LAB CHEMISTRY METHOD 11/05/2024 2:08 PM EDT [facility] Albumin 3.1(L) 3.2 - 5.0 g/dL LAB CHEMISTRY METHOD 11/05/2024 2:08 PM EDT [facility] Total Bilirubin 0.4 0.0 - 1.4 mg/dL LAB CHEMISTRY METHOD 11/05/2024 2:08 PM EDT [facility] Blood Venous blood specimen / Unknown Venipuncture / Unknown 11/05/2024 6:38 AM EDT 11/05/2024 11:53 AM EDT us Lupe Cruz MD LAB BLOOD ORDERABLES Fin al Result [facility] [address] [place] [address], [place] [phone] from Last 3 Months Insurance MEDICARE MEDICAID - [place] Care Teams Lettuce Cutter Relationship Specialty Start Date End Date Bea Lacey MD [address] [place] [id number] PCP - General 04/04/23
--- OUTSIDE RECORDS SUMMARY | 2024-12-19 18:58 | XMS_ITS | Patient Health Record ---
Author Organization [facility] Address [address] [place] [address] Care Team Providers Care Sewing Machine Operator Zipper Name Role Phone Jeri Stokes M.D. Primary Care Provider Madie vailable Markus Parker Unavailable [phone] Reason For Referral No Information Plan Of Treatment No Information Insurance Providers Payer Name Payer Address Payer Phone Subscriber Number Group Number Insured Name Patient Relationship to Insured Coverage Start Date Coverage End Date MEDICARE OF [facility] [address] [place] [id number] SHERLY VARGAS Self - patient is the insured
--- OUTSIDE RECORDS SUMMARY | 2024-12-19 18:58 | XMS_ITS | Encounter Summary ---
Author Organization [facility] Address [address] [facility] [address] [place] [phone] Phone Care Team Providers Care Shake Loader Name Role Phone Halle Fontenot MD Primary Care Provider Encounter Details Date Type Department Care Team (Late st Contact Info) Description 01/27/2024 Procedure Pass [facility] [address] [place] [id number] Social History Tobacco Use Types Packs/Day Years [...] on filedocumented in this encounter Care Teams Shake Loader Relationship Specialty Start Date End Date Halle Fontenot MD [address] [place] [address] PCP - General Family Medicine 03/09/23 documented as of this encounter Additional Source Comments The information contained in this document represents components of the legal health record. It is not the complete legal health record.[facility]
--- OUTSIDE RECORDS SUMMARY | 2024-12-19 18:58 | XMS_ITS | Encounter Summary ---
Author Organization [employer] Address [address] [facility] 7t [place] [address] Care Team Providers Care Phlebotomy Manager Name Role Phone Bea Lacey MD Primary Care Provider [phone] Mariely Dennison PharmD Unavailable [phone] Reason for Visit * Reason Onset Date Comments Results 04/28/2023 Encounter Details Date Type Department Care Team ([facility] st Contact Info) Description 04/28/2023 Telephone [facility] MEDICINE [address] [place], [place] [phone] Bea Lacey MD [address] [place], [place] [phone] Results Social History Tobacco Use Types Packs/Day [...] Description 12/26/2024 2:00 PM EST Office Visit [facility] ADULT DENTAL [address] [place] [address] Shyam Gillette DDS [address] [place] [address] 02/19/2025 2:00 PM EST Office Visit [facility] MED & PEDS [address] [place] [address] Cat Dumont CNP [address] [place] [address] 06/18/2025 1:30 PM EDT Office Visit [facility] ADULT DENTAL [address] [place] [address] Daniele Barlow documented as of this encounter Visit Diagnoses Not on filedocumented in this encounter Additional Health Concerns Assessment Noted Time PHQ-9 Depression Total Score: 7 05/29/19 23 10:45 AM EDT documented as of this encounter Care Teams Phlebotomy Manager Relationship Specialty Start Date End Date Bea Lacey MD [address] [place] [address] PCP - General Family Medicine 09/22/22 Mariely Dennison PharmD [address] [place] [address] Pharmacist Internal Medicine 07/03/24 [facility] 09/01/24 12/02/24 [facility] 11/09/24 documented as of this encounter
--- OUTSIDE RECORDS SUMMARY | 2024-12-19 18:58 | XMS_ITS | Encounter Summary ---
Author Organization [email or web address] Address [address] [facility] 7t [place] [address] Care Team Providers Care Net Software Developer Name Role Phone Bea Lacey MD Primary Care Provider [phone] Mariely Dennison PharmD Unavailable [phone] Encounter Details Date Type Department Care Team ([facility] st Contact Info) Description 05/21/2024 Telephone [facility] MED & PEDS [address] [place], [place] [phone] Bea Lacey MD [address] [place] [address] Social History Tobacco Use Types Packs/Day Years [...] Description 12/26/2024 2:00 PM EST Office Visit [facility] AD[facility] [address] [place] [address] Shyam Gillette DDS [address] [place] [address] 02/19/2025 2:00 PM EST Office Visit [facility]ED[facility] [address] [place] [address] Cat Dumont, SITE ENGINEER [address] [place] [address] 06/18/2025 1:30 PM EDT Office Visit [facility] [address] [place] [address] Daniele Barlow documented as of this encounter Visit Diagnoses Not on filedocumented in this encounter Additional Health Concerns Assessment Noted Time PHQ-9 Depression Total Score: 20 024 10:22 AM EDT documented as of this encounter Care Teams Net Software Developer Relationship Specialty Start Date End Date Bea Lacey MD [address] [place], [place] [phone] PCP - General Family Medicine 09/22/22 Mariely Dennison PharmD [address] [place] [address] Pharmacist Internal Medicine 07/03/24 [facility] 09/01/24 12/02/24 [facility] 11/09/24 documented as of this encounter
--- OUTSIDE RECORDS SUMMARY | 2024-12-19 18:58 | XMS_ITS | Encounter Summary ---
Author Organization [employer] Address [address] [facility] 7t [place] [address] Care Team Providers Care Multicultural Internship Name Role Phone Bea Lacey MD Primary Care Provider Mariely Dennison PharmD Unavailable [phone] Encounter Details Date Type Department Care Team (Late st Contact Info) Description 07/18/2024 Orders Only [facility] [address] [place], [place] [phone] Provider, MD Tia Social History Tobacco Use [...] Description 12/26/2024 2:00 PM EST Office Visit [facility] ADULT DENTAL [address] [place] [address] Shyam Gillette DDS [address] [place] [address] 02/19/2025 2:00 PM EST Office Visit [facility] MED & PEDS [address] [place], [place] [phone] Cat Dumont, STUDENT LIFE VICE PRESIDENT [address] [place] [address] 06/18/2025 1:30 PM EDT Office Visit [facility] ADULT DENTAL [address] [place] [address] Daniele Barlow documented as of this encounter [...] documented as of this encounter Care Teams Multicultural Internship Relationship Specialty Start Date End Date Bea Lacey MD [address] [place], [place] [phone] PCP - General Family Medicine 09/22/22 Mariely Dennison PharmD [address] [place] [address] Pharmacist Internal Medicine 07/03/24 [facility] 09/01/24 12/02/24 [facility] 11/09/24 documented as of this encounter
--- OUTSIDE RECORDS SUMMARY | 2024-12-19 18:58 | XMS_ITS | Encounter Summary ---
Author Organization [facility] Address [address] [place] [address] Care Team Providers Care Control Cabinet Assembler Name Role Phone Bea Lacey MD Primary Care Provider [phone] Encounter Details Date Type Department Care Team (Late st Contact Info) Description 11/04/2024 Lab Requisition [facility] - Main Lab [address] [place] [address] Lupe Cruz MD [address] [phone] Anemia, unspecified; Other disorders of electrolyte and [...] LAB CHEMISTRY METHOD 11/05/2024 2:08 PM EDT [facility] Potassium 4.1 3.5 - 5.5 mmol/L LAB CHEMISTRY METHOD 11/05/2024 2:[address] [facility] Chloride 106 96 - 110 mmol/L LAB CHEMISTRY METHOD 11/05/2024 2:[address] [facility] CO2 29 21 - 32 mmol/L LAB CHEMISTRY METHOD 11/05/2024 2:[address] [facility] Anion Gap 5 3 - 11 LAB CHEMISTRY METHOD 11/05/2024 2:[address] [facility] Glucose 124(H) 70 - 100 mg/dL LAB CHEMISTRY METHOD 11/05/2024 2:[address] [facility] BUN 12 5 - 25 mg/dL LAB CHEMISTRY METHOD 11/05/2024 2:[address] [facility] LAB Creatinine 0.83 0.70 - 1.30 mg/dL LAB CHEMISTRY METHOD 11/05/2024 2:[address] [facility] LAB eGFR 93 >=60 mL/min/1. 73m2 LAB CHEMISTRY METHOD 11/05/2024 2:[address] [facility] LAB Comment:Calculation based on the Chronic Kidney Disease Epidemiology Collaboration (CKD-EPI) equation refit without adjustment for race. BUN/Creatinine Ratio 14.5 LAB CHEMISTRY METHOD 11/05/2024 2:[address] [facility] Calcium 8.5 8.5 - 10.5 mg/dL LAB CHEMISTRY METHOD 11/05/2024 2:[address] [facility] AST (SGOT) 21 10 - 42 unit/L LAB CHEMISTRY METHOD 11/05/2024 2:[address] [facility] ALT (SGPT) 24 10 - 60 unit/L LAB CHEMISTRY METHOD 11/05/2024 2:[address] [facility] Alkaline Phosphatase 124(H) 42 - 121 unit/L LAB CHEMISTRY METHOD 11/05/2024 2:[address] [facility] Total Protein 6.0 6.0 - 8.0 g/dL LAB CHEMISTRY METHOD 11/05/2024 2:08 PM EDT [facility] LAB Albumin 3.1(L) 3.2 - 5.0 g/dL LAB CHEMISTRY METHOD 11/05/2024 2:08 PM EDT [facility] LAB Total Bilirubin 0.4 0.0 - 1.4 mg/dL LAB CHEMISTRY METHOD 11/05/2024 2:08 PM EDT [facility] LAB Blood Venous blood specimen / Unknown Venipuncture / Unknown 11/05/2024 6:38 AM EDT 11/05/2024 11:53 AM EDT us Lupe Cruz MD LAB BLOOD ORDERABLES Fin al Result [facility] LAB [address] [place] [address], * (ABNORMAL) Complete blood count (11/05/2024 6:38 AM EDT) WBC 4.6(L) 4.8 - 10.8 K/mcL LAB HEMETOLOGY METHOD [facility] RBC 4.80 4.50 - 5.50 M/mcL LAB HEMETOLOGY METHOD 11/05/2024 1:[address] [facility] Hemoglobin 12.6(L) 13.5 - 17.5 g/dL LAB HEMETOLOGY METHOD 11/05/2024 1:08 PM EDT [facility] Hematocrit 41.3(L) 42.0 - 54.0 % LAB HEMETOLOGY METHOD 11/05/2024 1:08 PM EDT [facility] MCV 85.9 79.0 - 98.0 FL LAB HEMETOLOGY METHOD 11/05/2024 1:[address] [facility] MCH 26.2(L) 27.0 - 32.0 pcg LAB HEMETOLOGY METHOD 11/05/2024 1:08 PM EDT [facility] MCHC 30.5(L) 32.0 - 37.0 g/dL LAB HEMETOLOGY METHOD 11/05/2024 1:08 PM EDT [facility] RDW 17.2(H) 11.0 - 15.0 % LAB HEMETOLOGY METHOD 11/05/2024 1:08 PM EDT [facility] Platelets 268 130 - 400 K/mcL LAB HEMETOLOGY METHOD 11/05/2024 1:08 PM EDT [facility] MPV 11.3(H) 7.0 - 11.0 FL LAB HEMETOLOGY METHOD 11/05/2024 1:08 PM EDT [facility] NRBC 0.0 <1.0 % LAB HEMETOLOGY METHOD 11/05/2024 1:08 PM EDT [facility] NRBC Absolute 0.00 <0.10 K/mcL LAB HEMETOLOGY METHOD 11/05/2024 1:08 PM EDT [facility] Blood Venous blood specimen / Unknown Venipuncture / Unknown 11/05/2024 6:38 AM EDT 11/05/2024 11:55 AM EDT us Lupe Cruz MD LAB BLOOD ORDERABLES Fin al Result [facility] [address] [place] [address], [place] [phone] documented in this encounter Visit Diagnoses Diagnosis Anemia, unspecified Other disorders of electrolyte and fluid balance, not elsewhere classified documented in this encounter Care Teams Control Cabinet Assembler Relationship Specialty Start Date End Date Bea Lacey MD [address] [place] [address] PCP - General 04/04/23 documented as of this encounter
--- OUTSIDE RECORDS SUMMARY | 2024-12-19 18:58 | XMS_ITS | Encounter Summary ---
Author Organization [employer] Address [address] [facility] 7t [place] [address] Care Team Providers Care Ict Support Engineer Name Role Phone Bea Lacey MD Primary Care Provider [phone] Mariely Dennison PharmD Unavailable [phone] Reason for Visit * Reason Onset Date Comments Nurse Triage 04/03/2024 Encounter Details Date Type Department Care Team ([facility] st Contact Info) Description 04/03/2024 Telephone [facility] MEDICINE [address] [place], [place] [phone] Bea Lacey MD [address] [place], [place] [phone] Nurse Triage Social History Tobacco Use Types [...] by Pain management at [facility]. Has not notified that Dept [...] a new brain surgery on 04/05/24 at [facility]. Disposition reviewed and patient in agreement with plan. Will call to follow with appt. scheduling when recovered from procedure at [facility]. Patient requests that PCP be updated. Forwarded to PCP as patient requested. Protocol Used: Chest Pain (Adult) Protocol-Based Disposition: See in Office or Video Visit Today Override (Final) Disposition: Refer to Specialist Override Reason: Caller refused suggested disposition Override Notes: Patient followed by [facility] Pain Management but wants PCP [...] acuity questions The caller accepted this outcome. [phone] documented in this encounter Plan of Treatment Upcoming Encounters Date Type Department Care Team (Late st Contact Info) Description 12/26/2024 2:00 PM EST Office [facility] ADULT DENTAL [address] [place] [address] Shyam Gillette DDS [address] [place] [address] 02/19/2025 2:00 PM EST Office [facility] MED & PEDS [address] [place] [address] Cat Dumont CNP [address] [place] [address] 06/18/2025 1:30 PM EDT Office Visit [facility] ADULT DENTAL [address] [place] [address] aDniele Barlow documented as of this encounter Visit Diagnoses Not on filedocumented in this encounter Additional Health Concerns Assessment Noted Time PHQ-9 Depression Total Score: 20 024 10:22 AM EDT documented as of this encounter Care Teams Ict Support Engineer Relationship Specialty Start Date End Date Bea Lacey MD [address] [place] [address] PCP - General Family Medicine 09/22/22 Mariely Dennison PharmD [address] [place] [address] Pharmacist Internal Medicine 07/03/24 [facility] 09/01/24 12/02/24 [facility] 11/09/24 documented as of this encounter
--- OUTSIDE RECORDS SUMMARY | 2024-12-19 18:58 | XMS_ITS | Encounter Summary ---
Author Organization [facility] Address [address] [place] [address] Care Team Providers Care High School Learning Support Teacher Name Role Phone Bea Lacey MD Primary Care Provider [phone] Encounter Details Date Type Department Care Team (Late st Contact Info) Description 10/30/2024 Lab Requisition [facility] - Main Lab [address] [place] [address] Lupe Cruz MD [address] [id number] Anemia, unspecified; Other disorders of electrolyte and [...] LAB CHEMISTRY METHOD 10/30/2024 12:50 PM EDT [facility] Potassium 3.9 3.5 - 5.5 mmol/L LAB CHEMISTRY METHOD 10/30/2024 12:50 PM [facility] Chloride 104 96 - 110 mmol/L LAB CHEMISTRY METHOD 10/30/2024 12:50 PM [facility] CO2 25 21 - 32 mmol/L LAB CHEMISTRY METHOD 10/30/2024 12:50 PM [facility] Anion Gap 8 3 - 11 LAB CHEMISTRY METHOD 10/30/2024 12:50 PM [facility] Glucose 155(H) 70 - 100 mg/dL LAB CHEMISTRY METHOD 10/30/2024 12:50 PM [facility] BUN 16 5 - 25 mg/dL LAB CHEMISTRY METHOD 10/30/2024 12:50 PM [facility] Creatinine 1.02 0.70 - 1.30 mg/dL LAB CHEMISTRY METHOD 10/30/2024 12:50 PM [facility] eGFR 78 >=60 mL/min/1. 73m2 LAB CHEMISTRY METHOD 10/30/2024 12:50 PM [facility] Comment:Calculation based on the Chronic Kidney Disease Epidemiology Collaboration (CKD-EPI) equation refit without adjustment for race. BUN/Creatinine Ratio 15.7 LAB CHEMISTRY METHOD 10/30/2024 12:50 PM [facility] Calcium 9.4 8.5 - 10.5 mg/dL LAB CHEMISTRY METHOD 10/30/2024 12:50 PM [facility] AST (SGOT) 22 10 - 42 unit/L LAB CHEMISTRY METHOD 10/30/2024 12:50 PM [facility] ALT (SGPT) 32 10 - 60 unit/L LAB CHEMISTRY METHOD 10/30/2024 12:50 PM [facility] Alkaline Phosphatase 167(H) 42 - 121 unit/L LAB CHEMISTRY METHOD 10/30/2024 12:50 PM [facility] Total Protein 7.3 6.0 - 8.0 g/dL LAB CHEMISTRY METHOD 10/30/2024 12:50 PM EDT [facility] Albumin 3.9 3.2 - 5.0 g/dL LAB CHEMISTRY METHOD 10/30/2024 12:50 PM EDT [facility] Total Bilirubin 0.6 0.0 - 1.4 mg/dL LAB CHEMISTRY METHOD 10/30/2024 12:50 PM EDT [facility] Blood Venous blood specimen / Unknown Venipuncture / Unknown 10/30/2024 7:56 AM EDT 10/30/2024 10:49 AM EDT us Lupe Cruz MD LAB BLOOD ORDERABLES Fin al Result [facility] [address] [place] [address], * (ABNORMAL) Complete blood count (10/30/2024 7:56 AM EDT) WBC 10.0 4.8 - 10.8 K/mcL LAB HEMETOLOGY METHOD 10/30/2024 11:29 AM [facility] RBC 5.80(H) 4.50 - 5.50 M/mcL LAB HEMETOLOGY METHOD 10/30/2024 11:29 AM [facility] Hemoglobin 14.9 13.5 - 17.5 g/dL LAB HEMETOLOGY METHOD 10/30/2024 11:29 AM [facility] Hematocrit 48.6 42.0 - 54.0 % LAB HEMETOLOGY METHOD 10/30/2024 11:29 AM [facility] MCV 84.5 79.0 - 98.0 FL LAB HEMETOLOGY METHOD 10/30/2024 11:29 AM [facility] MCH 25.9(L) 27.0 - 32.0 pcg LAB HEMETOLOGY METHOD 10/30/2024 11:29 AM EDT [facility] MCHC 30.7(L) 32.0 - 37.0 g/dL LAB HEMETOLOGY METHOD 10/30/2024 11:29 AM EDT [facility] RDW 17.6(H) 11.0 - 15.0 % LAB HEMETOLOGY METHOD 10/30/2024 11:29 AM EDT [facility] Platelets 313 130 - 400 K/mcL LAB HEMETOLOGY METHOD 10/30/2024 11:29 AM EDT [facility] MPV 10.7 7.0 - 11.0 FL LAB HEMETOLOGY METHOD 10/30/2024 11:29 AM EDT [facility] NRBC 0.0 <1.0 % LAB HEMETOLOGY METHOD 10/30/2024 11:29 AM EDT [facility] NRBC Absolute 0.00 <0.10 K/mcL LAB HEMETOLOGY METHOD 10/30/2024 11:29 AM EDT [facility] Blood Venous blood specimen / Unknown Venipuncture / Unknown 10/30/2024 7:56 AM EDT 10/30/2024 10:49 AM EDT us Lupe Cruz MD LAB BLOOD ORDERABLES Fin al Result [facility] [address] [place] [address], documented in this encounter Visit Diagnoses Diagnosis Anemia, unspecified Other disorders of electrolyte and fluid balance, not elsewhere classified documented in this encounter Care Teams High School Learning Support Teacher Relationship Specialty Start Date End Date Bea Lacey MD [address] [place] [address] PCP - General 04/04/23 documented as of this encounter
--- OUTSIDE RECORDS SUMMARY | 2024-12-19 18:58 | XMS_ITS | Encounter Summary ---
Author Organization [employer] Address 75 [facility] 7t [place] [address] Care Team Providers Care Graves Registration Specialist Name Role Phone Bea Lacey MD Primary Care Provider [phone] Mariely Dennison PharmD Unavailable Reason for Visit * Reason Onset Date Comments Glucose Monetor 10/08/2022 Encounter Details Date Type Department Care Team ([facility] st Contact Info) Description 10/08/2022 Telephone C [facility] [address] [place], [place] [phone] Bea Lacey MD 505 [place] [address] Glucose Monetor Social History Tobacco Use Types [...] call to patient who is requesting a [employer] two Sensor. Pt states it will make it easier for him due to difficulty pinching. [facility], pt provided number . Patient also stated that he wants a prescription for pseudoephedrine fornasal congestion and runny nose. This message will be forwarded to provider. * Telephone Encounter - Lexi Harperrero - 10/08/2022 8:21 AM EDT Tc from pt requesting a [employer] two Sensor. Pt states it will make it easier for him due todifficulty pinching. Pt [facility], pt provided number Please contact pt at [phone] documented in this encounter Plan of Treatment Upcoming Encounters Date Type Department Care Team (Late st Contact Info) Description 12/26/2024 2:00 PM EST Office Visit [facility] ADULT DENTAL [address] [place] [address] Shyam Gillette DDS [address] [place] [address] 02/19/2025 2:00 PM EST Office Visit [facility] MED & PEDS [address] [place], [place] [phone] Cat Dumont CNP 505 [place] [address] 06/18/2025 1:30 PM EDT Office Visit [facility] ADULT DENTAL [address] [place] [address] Daniele Barlow documented as of this encounter Visit Diagnoses Not on filedocumented in this encounter Additional Health Concerns Assessment Noted Time PHQ-9 Depression Total Score: 7 05/29/19 23 10:45 AM EDT documented as of this encounter Care Teams Graves Registration Specialist Relationship Specialty Start Date End Date Bea Lacey MD [address] [place] [address] PCP - General Family Medicine 09/22/22 Mariely Dennison PharmD [address] [place] [address] Pharmacist Internal Medicine [facility]03[facility] 11/09/24 documented as of this encounter
--- OUTSIDE RECORDS SUMMARY | 2024-12-19 18:58 | XMS_ITS | Encounter Summary ---
Author Organization [employer] Address 75 [facility] 7t [place] [address] Care Team Providers Care Construction Mgr Name Role Phone Bea Lacey MD Primary Care Provider [phone] Mariely Dennison PharmD Unavailable [phone] Reason for Visit * Reason Comments Med Refill Encounter Details Date Type Department Care Team ([facility] Contact Info) Description 07/20/2024 Refill [facility] MED & PEDS [address] [place], [place] [phone] Gordon Mills MD 505 [place] [address] Type 2 diabetes mellitus with hyperglycemia (CMS/HCC) [...] Description 12/26/2024 2:00 PM EST Office Visit [facility] ADULT DENTAL [address] [place] [address] Shyam Gillette DDS [address] [place] [address] 02/19/2025 2:00 PM EST Office Visit [facility] MED & PEDS [address] [place] [address] Cat Dumont CNP 505 [place] [address] 06/18/2025 1:30 PM EDT Office Visit [facility] ADULT DENTAL [address] [place] [address] Daniele Barlwo documented as of this encounter Visit Diagnoses Diagnosis Type 2 diabetes mellitus with hyperglycemia (HCC) documented in this encounter Additional Health Concerns Assessment Noted Time PHQ-9 Depression Total Score: 20 024 10:22 AM EDT documented as of this encounter Care Teams Construction Mgr Relationship Specialty Start Date End Date Bea Lacey MD [address] [place] [address] PCP - General Family Medicine 09/22/22 Mariely Dennison, PharmD [address] [place] [address] Pharmacist Internal Medicine 07/03/24 [facility] 09/01/24 12/02/24 [facility] 11/09/24 documented as of this encounter
--- OUTSIDE RECORDS SUMMARY | 2024-12-19 18:58 | XMS_ITS | Encounter Summary ---
Author Organization [employer] Address [address] [facility] 7t [place] [address] Care Team Providers Care Civil Engineering Manager Name Role Phone Bea Lacey MD Primary Care Provider Mariely Dennison PharmD Unavailable [phone] Encounter Details Date Type Department Care Team (Late st Contact Info) Description 06/07/2023 Orders Only [facility] MEDICINE [address] [place], [place] [phone] Provider, MD Tia Social History Tobacco Use [...] Description 12/26/2024 2:00 PM EST Office Visit [facility] ADULT DENTAL [address] [place], [place] [phone] Shyam Gillette DDS [address] [place] [address] 02/19/2025 2:00 PM EST Office Visit [facility] MED & PEDS [address] [place], [place] [phone] Cat Dumont, LOADMASTER [address] [place] [address] 06/18/2025 1:30 PM EDT Office Visit [facility] ADULT DENTAL [address] [place] [address] Daniele Barlow documented as of this encounter [...] documented as of this encounter Care Teams Civil Engineering Manager Relationship Specialty Start Date End Date Bea Lacey MD [address] [place] [address] PCP - General Family Medicine 09/22/22 Mariely Dennison, [place] [address] [place] [address] Pharmacist Internal Medicine [facility]03[facility] 11/09/24 documented as of this encounter
--- OUTSIDE RECORDS SUMMARY | 2024-12-19 18:58 | XMS_ITS | Encounter Summary ---
Author Organization [employer] Address [address] [facility] 7t [place] [address] Care Team Providers Care Gold Nib Grinder Name Role Phone Bea Lacey MD Primary Care Provider [phone] Mariely Dennison PharmD Unavailable [phone] Encounter Details Date Type Department Care Team (Late st Contact Info) Description 07/14/2023 Orders Only [facility] CHC MED & PEDS [address] [place], [place] [phone] ProviderTia MD Social History Tobacco Use Types [...] 2:00 PM EST Office Visit [facility] ADULT DENTAL [address] [place] [address] Shyam Gillette DDS 230 [place] [address] 02/19/2025 2:00 PM EST Office Visit [facility] MED & PEDS [address] [place], [place] [phone] Cat Dumont, ENGINE SERVICE REPAIRER [address] [place] [address] 06/18/2025 1:30 PM EDT Office Visit [facility] ADULT DENTAL [address] [place] [address] Daniele Barlow documented as of this encounter [...] documented as of this encounter Care Teams Gold Nib Grinder Relationship Specialty Start Date End Date Bea Lacey MD [address] [place] [address] PCP - General Family Medicine 09/22/22 Mariely Dennison, Marbella [address] [place] [address] Pharmacist Internal Medicine 07/03/24 [facility] 09/01/24 12/02/24 [facility] 11/09/24 documented as of this encounter
--- OUTSIDE RECORDS SUMMARY | 2024-12-19 18:58 | XMS_ITS | Encounter Summary ---
Author Organization [employer] Address 75 [facility] 7t [place] [address] Care Team Providers Care Continuity Writer Name Role Phone Bea Lacey MD Primary Care Provider [phone] Mariely Dennison PharmD Unavailable [phone] Reason for Visit * Reason Onset Date Comments FYI 08/30/2024 Encounter Details Date Type Department Care Team ([facility] st Contact Info) Description 08/30/2024 Telephone [facility] MEDICINE [address] [place], [place] [phone] Bea Lacey MD [address] [place], [place] [phone] Social History Tobacco Use Types Packs/Day Years [...] - 08/30/2024 12:38 PM EDT Tc from [place] with [facility] calling to inform pcp that pt has been referred to their services for at home PT and will be starting care on 08/31. documented in this encounter Plan of Treatment Upcoming Encounters Date Type Department Care Team (Late st Contact Info) Description 12/26/2024 2:00 PM EST Office Visit [facility] [address] [place] [address] Shyam Gillette, EMERSONS 230 [place] [address] 02/19/2025 2:00 PM EST Office Visit [facility] PEDS [address] [place] [address] Cat Dumont MANAGER LIFE SCIENCES 505 [place] [address] 06/18/2025 1:30 PM EDT Office Visit [facility] ADULT DENT[facility] [address] [place] [address] Daniele Barlow documented as of this encounter Visit Diagnoses Not on filedocumented in this encounter Additional Health Concerns Assessment Noted Time PHQ-9 Depression Total Score: 20 024 10:22 AM EDT documented as of this encounter Care Teams Continuity Writer Relationship Specialty Start Date End Date Bea Lacey MD [address] [place] [address] PCP - General Family Medicine 09/22/22 Mariely Dennison PharmD [address] [place] [address] Pharmacist Internal Medicine 07/03/24 [facility] 09/01/24 12/02/24 [facility] 11/09/24 documented as of this encounter
--- OUTSIDE RECORDS SUMMARY | 2024-12-19 18:59 | XMS_ITS | Encounter Summary ---
Author Organization [employer] Address [address] [facility] 7t [place] [address] Care Team Providers Care Store Operations Manager Name Role Phone Bea Lacey MD Primary Care Provider [phone] Mariely Dennison PharmD Unavailable [phone] Reason for Visit * Reason Onset Date Comments Nurse Triage 11/08/2023 Encounter Details Date Type Department Care Team ([facility] st Contact Info) Description 11/08/2023 Telephone C [facility] [address] [place], [place] [phone] Bea Lacey MD [address] [place], [place] [phone] Nurse Triage Social History Tobacco Use Types [...] you tomorrow AM. * Telephone Encounter - Ntia Wilson LPN - 11/08/2023 3:36 PM EDT [...] accepted this outcome. Please contact pt at [phone] documented in this encounter Plan of Treatment Upcoming Encounters Date Type Department Care Team ([facility] st Contact Info) Description 12/26/2024 2:00 PM EST Office Visit [facility] ADULT DENTAL [address] [place] [address] Shyam Gillette, VILLA [address] [place] [address] 02/19/2025 2:00 PM EST Office Visit [facility] MED & PEDS [address] [place], [place] [phone] Cat Dumont CNP [address] [place] [address] 06/18/2025 1:30 PM EDT Office Visit [facility] ADULT DENTAL [address] [place] [address] Daniele Barlow documented as of this encounter Visit Diagnoses Not on filedocumented in this encounter Additional Health Concerns Assessment Noted Time PHQ-9 Depression Total Score: 20 024 10:22 AM EDT documented as of this encounter Care Teams Store Operations Manager Relationship Specialty Start Date End Date Bea Lacey MD [address] [place] [address] PCP - General Family Medicine 09/22/22 Mariely Dennison PharmD [address] [place] [address] Pharmacist Internal Medicine 07/03/24 [facility] 09/01/24 12/02/24 [facility] 11/09/24 documented as of this encounter
--- OUTSIDE RECORDS SUMMARY | 2024-12-19 18:59 | XMS_ITS | Encounter Summary ---
Author Organization [employer] Address [address] [facility] 7t [place] [address] Care Team Providers Care Site Damage Prevention Technician Name Role Phone Bea Lacey MD Primary Care Provider [phone] Mariely Dennison PharmD Unavailable [phone] Encounter Details Date Type Department Care Team ([facility] st Contact Info) Description 12/17/2024 Telephone [facility] CH[facility] MED & PEDS [address] [place], [place] [phone] Bea Lacey MD 505 [place], [place] [phone] Social History Tobacco Use Types Packs/Day Years [...] encounter Miscellaneous Notes * Telephone Encounter - Brenda Garcia RN - 12/17/2024 10:52 AM EDT Pt walked into office requesting to reschedule HDF from 11/16/24. Appointment rescheduled for tomorrow 12/18/24 at 9:15 AM, pt verbalized understanding and agreement with plan. documented in this encounter Plan of Treatment Upcoming Encounters Date Type Department Care Team (Late st Contact Info) Description 12/26/2024 2:00 PM EST Office Visit [facility] ADULT DENTAL [address] [place] [address] Shyam Gillette DDS [address] [place] [address] 02/19/2025 2:00 PM EST Office Visit [facility] MED & PEDS [address] [place] [address] Cat Dumont CNP [address] [place] [address] 06/18/2025 1:30 PM EDT Office Visit [facility] ADULT DENTAL [address] [place] [address] Daniele Navas documented as of this encounter Visit Diagnoses Not on filedocumented in this encounter Additional Health Concerns Assessment Noted Time PHQ-9 Depression Total Score: 9 09/19/19 25 9:36 AM EDT documented as of this encounter Care Teams Site Damage Prevention Technician Relationship Specialty Start Date End Date Bea Lacey MD [address] [place] [address] PCP - General Family Medicine 09/22/22 Mariely Dennison PharmD [address] [place] [address] Pharmacist Internal Medicine 07/03/24 [facility] 11/09/24 documented as of this encounter
--- OUTSIDE RECORDS SUMMARY | 2024-12-19 18:59 | XMS_ITS | Encounter Summary ---
Author Organization [employer] Address [address] [facility] 7t [place] [address] Care Team Providers Care Plate Finisher Name Role Phone Bea Lacey MD Primary Care Provider [phone] Mariely Dennison PharmD Unavailable Reason for Visit * Reason Onset Date Comments Nurse Triage 02/08/2024 Encounter Details Date Type Department Care Team ([facility] st Contact Info) Description 02/08/2024 Telephone [facility] MEDICINE [address] [place], [place] [phone] Bea Lacey MD [address] [place], [place] [phone] Nurse Triage Social History Tobacco Use Types [...] surgery this morning . Pt has a prak cath bag for drainage and declines to [...] Visit [facility] ADULT DENTAL [address] [place] [address] Shyam Gillette DDS [address] [place] [address] 02/19/2025 2:00 PM EST Office Visit [facility] MED & PEDS [address] [place] [address] Cat Dumont, TERRAZZO POLISHER 505 [place] [address] 06/18/2025 1:30 PM EDT Office Visit [facility] ADULT DENTAL [address] [place] [address] Daniele Barlow documented as of this encounter Visit Diagnoses Not on filedocumented in this encounter Additional Health Concerns Assessment Noted Time PHQ-9 Depression Total Score: 20 024 10:22 AM EDT documented as of this encounter Care Teams Plate Finisher Relationship Specialty Start Date End Date Bea Lacey MD [address] [place] [address] PCP - General Family Medicine 09/22/22 Mariely Dennison, Marbella [address] [place] [address] Pharmacist Internal Medicine 07[facility]03[facility] 11/09/24 documented as of this encounter
--- OUTSIDE RECORDS SUMMARY | 2024-12-19 18:59 | XMS_ITS | Encounter Summary ---
Author Organization [email or web address] Address 75 [facility] 7t [place] [address] Care Team Providers Care Maintenance Of Way Clerk Name Role Phone Bea Lacey MD Primary Care Provider [phone] Mariely Dennison PharmD Unavailable [phone] Reason for Visit * Reason Onset Date Comments Med Refill 10/06/2023 Encounter Details Date Type Department Care Team (Late st Contact Info) Description 10/06/2023 Telephone [facility] MEDICINE [address] [place], [place] [phone] Bea Lacey MD [address] [place], [place] [phone] Med Refill Social History Tobacco Use Types [...] X 4 MM To be sent to: [facility] documented in this encounter Plan of Treatment Upcoming Encounters Date Type Department Care Team (Late st Contact Info) Description 12/26/2024 2:00 PM EST Office Visit [facility] ADULT DENTAL [address] [place] [address] Shyam Gillette, EMERSONS [address] [place] [address] 02/19/2025 2:00 PM EST Office Visit [facility] MED & PEDS [address] [place] [address] Cat Dumont SUPERVISOR ASSEMBLY STOCK 505 [place], [place] [phone] 06/18/2025 1:30 PM EDT Office Visit [facility] ADULT DENTAL [address] [place] [address] Daniele Barlow documented as of this encounter Visit Diagnoses Not on filedocumented in this encounter Additional Health Concerns Assessment Noted Time PHQ-9 Depression Total Score: 20 024 10:22 AM EDT documented as of this encounter Care Teams Maintenance Of Way Clerk Relationship Specialty Start Date End Date Bea Lacey MD [address] [place] [address] PCP - General Family Medicine 09/22/22 Mariely Dennison PharmD [address] [place] [address] Pharmacist Internal Medicine 07/03/24 [facility] 09/01/24 12/02/24 [facility] 11/09/24 documented as of this encounter
--- OUTSIDE RECORDS SUMMARY | 2024-12-19 18:59 | XMS_ITS | Encounter Summary ---
Author Organization [employer] Address 75 [facility] 7t [place] [address] Care Team Providers Care Telemarketing Sales Representative Name Role Phone Bea Lacey MD Primary Care Provider [phone] Mariely Dennison PharmD Unavailable [phone] Encounter Details Date Type Department Care Team ([facility] st Contact Info) Description 12/19/2024 Orders Only [facility] CHC MED & PEDS [address] [place], [place] [phone] Cat Dumont CNP 505 [place], [place] [phone] Irritable bowel syndrome with both constipation and diarrhea (Primary Dx) Social History Tobacco Use Types [...] Description 12/26/2024 2:00 PM EST Office Visit [facility] ADULT DENTAL [address] [place] [address] Shyam Gillette DDS [address] [place] [address] 02/19/2025 2:00 PM EST Office Visit [facility] MED & PEDS [address] [place] [address] Cat Dumont LEATHER SEASONER 505 [place] [address] 06/18/2025 1:30 PM EDT Office Visit [facility] ADULT DENTAL [address] [place] [address] Daniele Barlow documented as of this encounter Visit Diagnoses Diagnosis Irritable bowel syndrome with both constipation and diarrhea- Primary documented in this encounter Additional Health Concerns Assessment Noted Time PHQ-9 Depression Total Score: 9 09/19/19 25 9:36 AM EDT documented as of this encounter Care Teams Telemarketing Sales Representative Relationship Specialty Start Date End Date Bea Lacey MD [address] [place] [address] PCP - General Family Medicine 09/22/22 Mariely Dennison PharmD [address] [place] [address] Pharmacist Internal Medicine 07/03/24 [facility] 11/09/24 documented as of this encounter
--- OUTSIDE RECORDS SUMMARY | 2024-12-19 18:59 | XMS_ITS | Encounter Summary ---
Author Organization [employer] Address [address] [facility] [address] 7t [place] [address] Care Team Providers Care Metal Organ Pipe Maker Name Role Phone Gordon Mills MD Primary Care Prov ider Bea Cottrell MD Primary Care Provider [phone] Mariely Dennison PharmD Unavailable [phone] Reason for Visit * Reason Onset Date Comments PCP change 09/01/2022 Encounter Details Date Type Department Care Team ([facility] st Contact Info) Description 09/01/2022 Telephone [facility] MED & PEDS [address] [place], [place] [phone] Gordon Mills MD 505 [place], [place] [phone] PCP change Social History Tobacco Use Types [...] Description 12/26/2024 2:00 PM EST Office Visit [facility] ADULT DENTAL [address] [place] [address] Shyam Gillette DDS [address] [place] [address] 02/19/2025 2:00 PM EST Office Visit [facility] MED & PEDS [address] [place] [address] Cat Dumont POWDERMAN 505 [place] [address] 06/18/2025 1:30 PM EDT Office Visit [facility] ADULT DENTAL [address] [place] [address] Daniele Barlow documented as of this encounter Visit Diagnoses Not on filedocumented in this encounter Additional Health Concerns Assessment Noted Time PHQ-9 Depression Total Score: 7 05/29/19 23 10:45 AM EDT documented as of this encounter Care Teams Metal Organ Pipe Maker Relationship Specialty Start Date End Date Gordon Mills MD 505 [place] [address] PCP - General Internal Medicine 07/12/19 09/21/22 Bea Cottrell MD [address] [place] [address] PCP - General Family Medicine 09/22/22 Mariely Dennison PharmD 230 [place] [address] Pharmacist Internal Medicine 07/03/24 [facility] 09/01/24 12/02/24 [facility] 11/09/24 documented as of this encounter
--- OUTSIDE RECORDS SUMMARY | 2024-12-19 18:59 | XMS_ITS | Encounter Summary ---
Author Organization [employer] Address [address] 7t [place] [address] Care Team Providers Care Branch Operations Coordinator Name Role Phone Bea Lacey MD Primary Care Provider [phone] Mariely Dennison PharmD Unavailable [phone] Encounter Details Date Type Department Care Team (Latest Contact Info) Description 12/18/2024 Travel Social History Tobacco Use Types Packs/Day [...] Description 12/26/2024 2:00 PM EST Office Visit [facility] ADULT DENTAL [address] [place] [address] Shyam Gillette DDS 230 [place] [address] 02/19/2025 2:00 PM EST Office Visit [facility] MED & PEDS [address] [place] [address] Cat Dumont, SYNTHETIC SOIL BLOCKS PULPER 505 [place] [address] 06/18/2025 1:30 PM EDT Office Visit [facility] ADULT DENTAL [address] [place] [address] Daniele Barlow documented as of this encounter Visit Diagnoses Not on filedocumented in this encounter Additional Health Concerns Assessment Noted Time PHQ-9 Depression Total Score: 9 09/19/19 25 9:36 AM EDT documented as of this encounter Care Teams Branch Operations Coordinator Relationship Specialty Start Date End Date Bea Lacey MD [address] [place] [address] PCP - General Family Medicine 09/22/22 Mariely Dennison PharmD [address] [place] [address] Pharmacist Internal Medicine 07/03/24 [facility] 11/09/24 documented as of this encounter
--- OUTSIDE RECORDS SUMMARY | 2024-12-19 18:59 | XMS_ITS | Clinical Summary ---
Author Organization [facility] Address [address] [address] Phone Care Team Providers Care Teacher Home Therapy Name Role Phone Lula Lacey MD Primary Care Provider [phone] Allergies Active Allergy Reactions Criticality Noted Date [...] and 250 mg before bedtime. Active Methylnaltrexone [place] (Relistor) 150 MG tablet Take by mouth [...] stents in 1988 Congestive heart failure 01/20/2022 Harmful pattern of substance use 01/20/2022 Diffuse spasm of esophagus 01/20/2022 Hyperlipidemia [...] Orders Only [facility] [address] [address] Jeri Keller ARNP from Last 3 Months Immunizations Immunization Administration [...] Care Team (Late st Contact Info) Description 12/22/2024 Orders Only [facility] [address] [phone] Jeri Keller ARNP [address] [phone] Stage 3a chronic kidney disease (HCC); Hypertension; Nephrolithiasis 12/25/2024 Orders Only [facility] [address] [phone] Get Galo MD [address] [address] Chronic kidney disease stage 2; Essential tremor 01/30/2025 1:00 PM EST Office Visit [facility] [address] [address] Get Galo MD [address] [address] Health Maintenance Due Date Last [...] Date/Time Associated Diagnosis Comments PTH, INTACT Routine 12/12/2024 2:47 PM EDT URINE ALBUMIN / CREATININE RATIO Routine 12/12/2024 2:47 PM EDT PROTEIN / CREATININE RATIO, URINE Routine 12/12/2024 2:47 PM EDT CBC Routine 12/12/2024 2:47 PM EDT RENAL FUNCTION PANEL Routine 12/12/2024 2:47 PM EDT PTH, INTACT Routine 10/15/2024 5:04 [...] Recently Relevant to Health Maintenance Results * Protein, Total, Random Urine w/Creatinine (Protein/Creat Ratio) (12/12/2024 2:47 PM EDT) Creatinine, Ur 75.4 Not Estab. mg/dL [facility] Protein, Ur 9.4 Not Estab. mg/dL [facility] Urine Protein/Creatin ine Ratio 125 0 - 200 mg/g creat [facility] 12/12/2024 2:47 PM EDT 12/12/2024 Jeri Keller [facility] URINE ORDERABLES Final Result [facility] [address] [place] [address] * Urine Albumin / Creatinine Ratio (12/12/2024 2:47 PM EDT) Albumin, Urine <3.0 Not Estab. ug/mL [facility] Albumin/Creatin ine Ratio <4 0 - 29 mg/g creat [facility] Comment: Normal: 0 - 29 Moderately increased: 30 - 300 Severely increased: >300 12/12/2024 2:47 PM EDT 12/12/2024 Jeri Keller [facility] URINE ORDERABLES Final Result Performing Organization Address City/[facility]/ZIP Co de Phone Number [facility] [address] [place] [address] * (ABNORMAL) CBC (12/12/2024 2:47 PM EDT) WBC 5.7 3.4 - 10.8 x10E3/uL [facility] RBC 4.40 4.14 - 5.80 x10E6/uL [facility] Hemoglobin 11.8(L) 13.0 - 17.7 g/dL [facility] Hematocrit 38.0 37.5 - 51.0 % [facility] MCV 86 79 - 97 fL [facility] MCH 26.8 26.6 - 33.0 pg [facility] MCHC 31.1(L) 31.5 - 35.7 g/dL [facility] RDW 15.7(H) 11.6 - 15.4 % [facility] Platelets 252 150 - 450 x10E3/uL [facility] 12/12/2024 2:47 PM EDT 12/12/2024 Jerijalyn Keller [facility] BLOOD ORDERABLES Final Result Performing Organization Address City/[facility]/ZIP Co de Phone Number [facility] [address] [place] [address] * PTH, Intact (12/12/2024 2:47 PM EDT) Only the most recent of2 resultswithin the time period is included. PTH 27 15 - 65 pg/mL [facility] 12/12/2024 2:47 PM EDT 12/12/2024 Jeri Keller [facility] BLOOD ORDERABLES Final Result [facility] [address] [place] [address] * (ABNORMAL) Renal Function Panel (12/12/2024 2:47 PM EDT) Only the most recent of2 resultswithin the time period is included. Glucose 108(H) 70 - 99 mg/dL [facility] BUN 18 8 - 27 mg/dL [facility] Creatinine 0.87 0.76 - 1.27 mg/dL [facility] eGFR CKD-EPI CR 2020 92 >59 mL/min/1.7 3 [facility] BUN/Creatinine Ratio 21 10 - 24 [facility] Sodium 143 134 - 144 mmol/L [facility] Potassium 4.3 3.5 - 5.2 mmol/L [facility] Chloride 106 96 - 106 mmol/L [facility] Bicarbonate (CO2) 21 20 - 29 mmol/L [facility] Calcium 8.6 8.6 - 10.2 mg/dL [facility] Albumin 4.1 3.8 - 4.8 g/dL [facility] Phosphorus 4.2(H) 2.8 - 4.1 mg/dL [facility] 12/12/2024 2:47 PM EDT 12/12/2024 Jeri Keller [facility] BLOOD ORDERABLES Final Result [facility] [address] [place] [address] * (ABNORMAL) CBC and Differential (10/15/2024 5:04 PM EDT) WBC 5.9 3.4 - 10.8 x10E3/uL [facility] RBC 4.21 4.14 - 5.80 x10E6/uL [facility] Hemoglobin 10.8(L) 13.0 - 17.7 g/dL [facility] Hematocrit 36.1(L) 37.5 - 51.0 % [facility] MCV 86 79 - 97 fL [facility] MCH 25.7(L) 26.6 - 33.0 pg [facility] MCHC 29.9(L) 31.5 - 35.7 g/dL [facility] RDW 16.1(H) 11.6 - 15.4 % [facility] Platelets 262 150 - 450 x10E3/uL [facility] Neutrophils Relative 56 Not Estab. % [facility] Lymphocytes Relative 32 Not Estab. % [facility] Monocytes 8 Not Estab. % [facility] Eosinophils Relative 3 Not Estab. % [facility] Basophils Relative 1 Not Estab. % [facility] Neutrophils Absolute 3.3 1.4 - 7.0 x10E3/uL [facility] Lymphocytes Absolute 1.9 0.7 - 3.1 x10E3/uL [facility] Monocytes Absolute 0.5 0.1 - 0.9 x10E3/uL [facility] Eosinophils Absolute 0.2 0.0 - 0.4 x10E3/uL [facility] Basophils Absolute 0.0 0.0 - 0.2 x10E3/uL [facility] Immature Granulocytes 0 Not Estab. % [facility] Immature Grans (Absolute) 0.0 0.0 - 0.1 x10E3/uL [facility] 10/15/2024 5:04 PM EDT 10/15/2024 Jeri Keller [facility] BLOOD ORDERABLES Final Result [facility] [address] [place] [address] * (ABNORMAL) Blood Panel (09/21/2018 12:00 AM [...] ug/dl RTAMA 09/21/2018 us [facility] [id number] LICITED RESULTS Final Result [facility] from Last 3 Months or Most Recently Relevant to Health Maintenance Insurance Medicare Medicaid [place] Medicare Medicaid [place] Care Teams Teacher Home Therapy Relationship Specialty Start Date End Date Lula Lacey MD [address] [place] [address] PCP - General Internal Medicine 01/25/24
--- OUTSIDE RECORDS SUMMARY | 2024-12-19 18:59 | XMS_ITS | Encounter Summary ---
Author Organization [employer] Address [address] [facility] 7t [place] [address] Care Team Providers Care Die Cast Patternmaker Name Role Phone Bea Lacey MD Primary Care Provider [phone] Mariely Dennison PharmD Unavailable [phone] Reason for Visit * Reason Comments Med Refill Encounter Details Date Type Department Care Team ([facility] st Contact Info) Description 02/06/2024 Refill [facility] DIABETES/NUTRITION [address] [place], [place] [phone] Bea Lacey MD [address] [place], [place] [phone] Type 2 diabetes mellitus with hyperglycemia, without long-term current use of insulin ([facility]) Social History Tobacco Use Types Packs/Day [...] Description 12/26/2024 2:00 PM EST Office Visit [facility] ADULT DENTAL [address] [place] [address] Shyam Gillette DDS [address] [place] [address] 02/19/2025 2:00 PM EST Office Visit [facility] MED & PEDS [address] [place] [address] Cat Dumont CNP 505 [place] [address] 06/18/2025 1:30 PM EDT Office Visit [facility] ADULT DENTAL [address] [place] [address] Daniele Barlow documented as of this encounter Visit Diagnoses Diagnosis Type 2 diabetes mellitus with hyperglycemia, without long-term current use of insulin (HCC) documented in this encounter Additional Health Concerns Assessment Noted Time PHQ-9 Depression Total Score: 20 024 10:22 AM EDT documented as of this encounter Care Teams Die Cast Patternmaker Relationship Specialty Start Date End Date Bea Lacey MD 230 [place] [address] PCP - General Family Medicine 09/22/22 Mariely Dennison, [place] [address] [place] [address] Pharmacist Internal Medicine 07/03/24 [facility] 09/01/24 12/02/24 [facility] 11/09/24 documented as of this encounter
--- OUTSIDE RECORDS SUMMARY | 2024-12-19 18:59 | XMS_ITS | Encounter Summary ---
Author Organization [employer] Address [address] [facility] 7t [place] [address] Care Team Providers Care Fruit Worker Name Role Phone Bea Lacey MD Primary Care Provider [phone] Mariely Dennison PharmD Unavailable [phone] Reason for Visit * Reason Onset Date Comments Medication Question 06/10/2023 Encounter Details Date Type Department Care Team ([facility] Contact Info) Description 06/10/2023 Telephone [facility] CHC MED & PEDS [address] [place], [place] [phone] Bea Lacey MD 505 [place], [place] [phone] Medication Question Social History Tobacco Use Types [...] Description 12/26/2024 2:00 PM EST Office Visit [facility] ADULT DENTAL [address] [place] [address] Shyam Gillette DDS [address] [place] [address] 02/19/2025 2:00 PM EST Office Visit [facility] MED & PEDS [address] [place] [address] Cat Dumont, DELIVERY DRIVER 505 [place] [address] 06/18/2025 1:30 PM EDT Office Visit [facility] ADULT DENTAL [address] [place] [address] Daniele Barlow documented as of this encounter Visit Diagnoses Not on filedocumented in this encounter Additional Health Concerns Assessment Noted Time PHQ-9 Depression Total Score: 20 024 10:22 AM EDT documented as of this encounter Care Teams Fruit Worker Relationship Specialty Start Date End Date Bea Lacey MD [address] [place] [address] PCP - General Family Medicine 09/22/22 Mariely Dennison PharmD [address] [place] [address] Pharmacist Internal Medicine 07/03/24 [facility] 09/01/24 12/02/24 [facility] 11/09/24 documented as of this encounter
--- OUTSIDE RECORDS SUMMARY | 2024-12-19 18:59 | XMS_ITS | Encounter Summary ---
Author Organization [employer] Address [address] [facility] [facility] [address] 7t [place] [address] Care Team Providers Care Manager Animal Name Role Phone Bea Lacey MD Primary Care Provider [phone] Mariely Dennison PharmD Unavailable [phone] Reason for Visit * Reason Comments Med Refill Encounter Details Date Type Department Care Team ([facility] st Contact Info) Description 03/16/2024 Refill [facility] CHC MED & PEDS [address] [place], [place] [phone] Bea Lacey MD 505 [place], [place] [phone] Social History Tobacco Use Types Packs/Day Years [...] Visit [facility] ADULT DENTAL [address] [place] [address] Shyam Gillette DDS 230 [place] [address] 02/19/2025 2:00 PM EST Office Visit [facility] MED & PEDS [address] [place] [address] Cat Dumont, JAVA PERFORMANCE ENGINEER 505 [place] [address] 06/18/2025 1:30 PM EDT Office Visit [facility] ADULT DENTAL [address] [place] [address] Daniele Barlow documented as of this encounter Visit Diagnoses Not on filedocumented in this encounter Additional Health Concerns Assessment Noted Time PHQ-9 Depression Total Score: 20 024 10:22 AM EDT documented as of this encounter Care Teams Manager Animal Relationship Specialty Start Date End Date Bea Lacey MD [address] [place] [address] PCP - General Family Medicine 09/22/22 Mariely Dennison PharmD 230 [place] [address] Pharmacist Internal Medicine 07/03/24 [facility] 09/01/24 12/02/24 [facility] 11/09/24 documented as of this encounter
--- OUTSIDE RECORDS SUMMARY | 2024-12-19 18:59 | XMS_ITS | Encounter Summary ---
Author Organization [employer] Address [address] [facility] 7t [place] [address] Care Team Providers Care Splicing Machine Operator Name Role Phone Bea Lacey MD Primary Care Provider Mariely Dennison PharmD Unavailable [phone] Reason for Visit * Reason Comments Med Refill Encounter Details Date Type Department Care Team ([facility] st Contact Info) Description 12/03/2024 Refill [facility] CHC MED & PEDS [address] [place], [place] [phone] Bea Lacey MD 505 [place], [place] [phone] Gastroesophageal reflux disease without esophagitis Social History [...] Visit [facility] ADULT [facility] [address] [place] [address] Shyam Gillette DDS 230 [place] [address] 02/19/2025 2:00 PM EST Office Visit [facility] MED & PEDS [address] [place] [address] Cat Dumont, SUPPORT SERVICES MANAGER 505 [place] [address] 06/18/2025 1:30 PM EDT Office Visit [facility] ADULT DENT[facility] [address] [place] [address] Daniele Barlow documented as of this encounter Visit Diagnoses Diagnosis Gastroesophageal reflux disease without esophagitis Esophageal reflux documented in this encounter Additional Health Concerns Assessment Noted Time PHQ-9 Depression Total Score: 9 09/19/19 25 9:36 AM EDT documented as of this encounter Care Teams Splicing Machine Operator Relationship Specialty Start Date End Date Bea Lacey MD [address] [place] [address] PCP - General Family Medicine 09/22/22 Mariely Dennison PharmD [address] [place] [address] Pharmacist Internal Medicine 07/03/24 [facility] 11/09/24 documented as of this encounter
--- OUTSIDE RECORDS SUMMARY | 2024-12-19 18:59 | XMS_ITS | Encounter Summary ---
Author Organization [employer] Address [address] [facility] 7t [place] [address] Care Team Providers Care Building Construction Supervisor Name Role Phone Bea Lacey MD Primary Care Provider [phone] Mariely Dennison PharmD Unavailable [phone] Reason for Visit * Reason Onset Date Comments Med reconciliation 10/08/2024 Encounter Details Date Type Department Care Team ([facility] st Contact Info) Description 10/08/2024 Telephone [facility] MED & PEDS [address] [place], [place] [phone] Bea Lacey MD 505 [place], [place] [phone] Med reconciliation Social History Tobacco Use Types [...] reconciliation andto discuss pain medication. Contact Marcy [phone] documented in this encounter Plan of Treatment Upcoming Encounters Date Type Department Care Team (Late st Contact Info) Description 12/26/2024 2:00 PM EST Office Visit [facility] ADULT DENTAL [address] [place] [address] Shyam Gillette, VILLA 230 [place] [address] 02/19/2025 2:00 PM EST Office Visit [facility] MED & PEDS [address] [place] [address] Cat Dumont CNP 505 [place] [address] 06/18/2025 1:30 PM EDT Office Visit [facility] ADULT DENTAL [address] [place] [address] Daniele Barlow documented as of this encounter Visit Diagnoses Not on filedocumented in this encounter Additional Health Concerns Assessment Noted Time PHQ-9 Depression Total Score: 9 09/19/19 25 9:36 AM EDT documented as of this encounter Care Teams Building Construction Supervisor Relationship Specialty Start Date End Date Bea Lacey MD 230 [place] [address] PCP - General Family Medicine 09/22/22 Mariely Deninson PharmD [address] [place] [address] Pharmacist Internal Medicine 07/03/24 [facility] 09/01/24 12/02/24 [facility] 11/09/24 documented as of this encounter
--- OUTSIDE RECORDS SUMMARY | 2024-12-19 18:59 | XMS_ITS | Encounter Summary ---
Author Organization [employer] Address [address] [facility] 7t [place] [address] Care Team Providers Care Lumber Driver Name Role Phone Bea Lacey MD Primary Care Provider [phone] Mariely Dennison PharmD Unavailable [phone] Reason for Visit * Reason Onset Date Comments Nurse Triage 03/05/2024 Encounter Details Date Type Department Care Team ([facility] st Contact Info) Description 03/05/2024 Telephone [facility] MED [facility] PEDS 505 [place], [place] [phone] Bea Lacey MD [address] [place], [place] [phone] Nurse Triage Social History Tobacco Use Types [...] 12/26/2024 2:00 PM EST Office Visit [facility] ADULT DENTAL [address] [place] [address] Shyam Gillette, EMERSONS 230 [place] [address] 02/19/2025 2:00 PM EST Office Visit [facility] MED & PEDS [address] [place] [address] Cat Dumont, IMAGING SCHEDULER 505 [place] [address] 06/18/2025 1:30 PM EDT Office Visit [facility] ADULT DENTAL [address] [place] [address] Daniele Barlow documented as of this encounter Visit Diagnoses Not on filedocumented in this encounter Additional Health Concerns Assessment Noted Time PHQ-9 Depression Total Score: 20 024 10:22 AM EDT documented as of this encounter Care Teams Lumber Driver Relationship Specialty Start Date End Date Bea Lacey MD 230 [place] [address] PCP - General Family Medicine 09/22/22 Mariely Dennison PharmD [address] [place] [address] Pharmacist Internal Medicine 07/03/24 [facility] 09/01/24 12/02/24 [facility] 11/09/24 documented as of this encounter
--- OUTSIDE RECORDS SUMMARY | 2024-12-19 18:59 | XMS_ITS | Encounter Summary ---
Author Organization [employer] Address 75 [facility] 7t [place] [address] Care Team Providers Care Signals Collection Technician Name Role Phone Bea Lacey MD Primary Care Provider [phone] Mariely Dennison PharmD Unavailable [phone] Reason for Visit * Reason Onset Date Comments Nurse Triage 12/19/2024 Encounter Details Date Type Department Care Team ([facility] st Contact Info) Description 12/19/2024 Telephone [facility] MEDICINE 230 [place], [place] [phone] Bea Lacey MD [address] [place], [place] [phone] Nurse Triage Social History Tobacco Use Types [...] encounter Miscellaneous Notes * Telephone Encounter - Katja Bassett RN - 12/19/2024 3:02 PM EDT Called pt regarding previous message, spoke to pt. Advised of message from Diana Dumont and about medication prescribed for the diarrhea. Advised to pickle cutter and take per instructions and call back ifworsening symptoms, blood in stools, chills, dizziness or other associated symptoms. Pt understandsand agrees with plan. * Telephone Encounter - Cat Dumont CNP - 12/19/2024 12:11 PM EDT Good morning,Pt does take many medications so it is hard to decipher which may be causing his diarrhea, only recent med changes I see in past two weeks are Carafate and calcium/vitamin D supplement which are not likely causing his symptoms. I will send Lubiprostone to be taken twice daily for symptoms. You can advise him that this med is used for irritable bowel syndrome and will likely help withsymptoms. If he develops any progressive symptoms including, fever, chills, blood in stool he should be seen. Thanks! * Telephone Encounter - Dipti Buchanan RN - 12/19/2024 11:47 AM EDT Telephone call returned to pt regarding below messages. He reports that he was seen yesterday by [place] [facility] and he forgot to mention that he has been having diarrhea x2 weeks. He reports thathe takes 40 medications per day and that he fluctuates between being constipated and having diarrhea. Believes one of his meds started in the past month is causing diarrhea. Pt declines appointment. Is wondering if provider can modify medication that is causing diarrhea. Pt denies any S/symptoms ofdehydration. Pt denies nausea or vomiting or blood in stool. Advised to maintain good oral hydration and that I will send message. * Telephone Encounter - Graham Hall - 12/19/2024 11:07 AM EDT Tc from pt returning call regarding message prior. * Telephone Encounter - Dipti Buchanan RN - 12/19/2024 10:43 AM EDT Telephone call returned to pt to triage. No answer, left v/m. * Telephone Encounter - Suni Garcia - 12/19/2024 10:31 AM EDT Symptom: Diarrhea Outcome: Schedule an appointment to be seen within 24 hours Reason: Caller denied all higher acuity questions The caller accepted this outcome. PCP Dr. Lacey documented in this encounter Plan of Treatment Upcoming Encounters Date Type Department Care Team (Late st Contact Info) Description 12/26/2024 2:00 PM EST Office Visit [facility] ADULT DENTAL [address] [place] [address] Shyam Gillette, VILLA 230 [place] [address] 02/19/2025 2:00 PM EST Office Visit [facility] MED & PEDS [address] [place] [address] Cat Dumont, TYREE 505 [place] [address] 06/18/2025 1:30 PM EDT Office Visit [facility] ADULT DENTAL [address] [place] [address] Daniele Barlow documented as of this encounter Visit Diagnoses Not on filedocumented in this encounter Additional Health Concerns Assessment Noted Time PHQ-9 Depression Total Score: 9 09/19/19 25 9:36 AM EDT documented as of this encounter Care Teams Signals Collection Technician Relationship Specialty Start Date End Date Bea Lacey MD [address] [place] [address] PCP - General Family Medicine 09/22/22 Mariely Dennison PharmD [address] [place] [address] Pharmacist Internal Medicine 07/03/24 [facility] 11/09/24 documented as of this encounter
--- OUTSIDE RECORDS SUMMARY | 2024-12-19 18:59 | XMS_ITS | Encounter Summary ---
Author Organization [employer] Address 75 [facility] 7t [place] [address] Care Team Providers Care Social Sciences Instructor Name Role Phone Gordon Mills MD Primary Care Prov ider Bea Lacey MD Primary Care Provider [phone] aMriely Dennison PharmD Unavailable [phone] Encounter Details Date Type Department Care Team (Latest Contact Info) Description 08/14/2020 Abstract [facility] CONVERSIONS Dental, Provider, DDS Social History Tobacco [...] 2:00 PM EST Office Visit [facility] ADULT DENTAL 505 [place] [address] Shyam Gillette, DDS 230 [place] [address] 02/19/2025 2:00 PM EST Office Visit [facility] MED & PEDS 505 [place], [place] [phone] Cat Dumont, TRAIL CONSTRUCTION WORKER 505 [place] [address] 06/18/2025 1:30 PM EDT Office Visit [facility] ADULT DENTAL 505 [place] [address] Daniele Barlow documented as of this encounter Visit Diagnoses Not on filedocumented in this encounter Care Teams Social Sciences Instructor Relationship Specialty Start Date End Date Gordon Mills MD 505 [place] [address] PCP - General Internal Medicine 07/12/19 09/21/22 Bea Lacey MD 230 [place] [address] PCP - General Family Medicine 09/22/22 Mariely Dennison PharmD 230 [place] [address] Pharmacist Internal Medicine 07/03/24 [facility] 09/01/24 12/02/24 [facility] 11/09/24 documented as of this encounter
--- OUTSIDE RECORDS SUMMARY | 2024-12-19 18:59 | XMS_ITS | Encounter Summary ---
Author Organization [employer] Address 75 [facility] 7t [place] [address] Care Team Providers Care Abnormal Psychology Teacher Name Role Phone Bea Lacey MD Primary Care Provider [phone] Mariely Dennison PharmD Unavailable [phone] Reason for Visit * Reason Comments Med Refill Encounter Details Date Type Department Care Team (Late st Contact Info) Description 10/11/2022 Refill [facility] MED & PEDS 505 [place], [place] [phone] Bea Lacey MD 505 [place] [address] Chronic rhinitis Social History Tobacco Use Types [...] Visit [facility] ADULT DENTAL 505 [place], [place] [phone] Shyam Gillette, VILLA 230 [place] [address] 02/19/2025 2:00 PM EST Office Visit [facility] MED & PEDS 505 [place] [address] Cat Dumont, CLAM SHUCKER 505 [place] [address] 06/18/2025 1:30 PM EDT Office Visit [facility] ADULT DENTAL 505 [place] [address] Daniele Barlow documented as of this encounter Visit Diagnoses Diagnosis Chronic rhinitis documented in this encounter Additional Health Concerns Assessment Noted Time PHQ-9 Depression Total Score: 7 05/29/19 10:45 AM EDT documented as of this encounter Care Teams Abnormal Psychology Teacher Relationship Specialty Start Date End Date Bea Lacey MD 230 [place] [address] PCP - General Family Medicine 09/22/22 Mariely Dennison PharmD 230 [place] [address] Pharmacist Internal Medicine 07/03/24 [facility] 09/01/24 12/02/24 [facility] 11/09/24 documented as of this encounter
--- OUTSIDE RECORDS SUMMARY | 2024-12-19 18:59 | XMS_ITS | Encounter Summary ---
Author Organization [employer] Address 75 [facility] 7t [place] [address] Care Team Providers Care Utility Assembler Name Role Phone Gordon Mills MD Primary Care Prov ider Bea Lacey MD Primary Care Provider [phone] Mariely Dennison PharmD Unavailable [phone] Reason for Visit * Reason Comments Med Refill Encounter Details Date Type Department Care Team ([facility] st Contact Info) Description 09/02/2022 Refill [facility] CHC MED & PEDS 505 [place], [place] [phone] Peter Barlow MD 505 [place] [address] Social History Tobacco Use Types Packs/Day Years [...] 2:00 PM EST Office Visit [facility] ADULT DENTAL 505 [place] [address] Shyam Gillette DDS 230 [place] [address] 02/19/2025 2:00 PM EST Office Visit [facility] MED & PEDS 505 [place] [address] Cat Dumont, DRAMATIC READER 505 [place] [address] 06/18/2025 1:30 PM EDT Office Visit [facility] ADULT DENTAL 505 [place] [address] Daniele Barlow documented as of this encounter Visit Diagnoses Not on filedocumented in this encounter Additional Health Concerns Assessment Noted Time PHQ-9 Depression Total Score: 7 05/29/19 23 10:45 AM EDT documented as of this encounter Care Teams Utility Assembler Relationship Specialty Start Date End Date Gordon Mills MD [address] [place] [address] PCP - General Internal Medicine 07/12/19 09/21/22 Bea Lacey MD 230 [place] [address] PCP - General Family Medicine 09/22/22 Mariely Dennison PharmD 230 [place] [address] Pharmacist Internal Medicine 07/03/24 [facility] 09/01/24 12/02/24 [facility] 11/09/24 documented as of this encounter
--- OUTSIDE RECORDS SUMMARY | 2024-12-19 18:59 | XMS_ITS | Encounter Summary ---
Author Organization [employer] Address 75 [facility] 7t [place] [address] Care Team Providers Care Puzzle Assembler Name Role Phone Bea Lacey MD Primary Care Provider [phone] Mariely Dennison PharmD Unavailable [phone] Reason for Visit * Reason Comments Med Refill Encounter Details Date Type Department Care Team ([facility] st Contact Info) Description 10/12/[address] [facility] CHC MED & PEDS 505 [place], [place] [phone] Gordon Mills MD 505 [place] [address] Chronic rhinitis Social History Tobacco Use Types [...] PM EST Office Visit [facility] ADULT DENTAL 505 [place] [address] Shyam Gillette DDS 230 [place] [address] 02/19/2025 2:00 PM EST Office Visit [facility] MED & PEDS [address] [place] [address] Cat Dumont, PROCESS TECHNICIAN 505 [place] [address] 06/18/2025 1:30 PM EDT Office Visit [facility] ADULT DENTAL [address] [place] [address] Daniele Barlow documented as of this encounter Visit Diagnoses Diagnosis Chronic rhinitis documented in this encounter Additional Health Concerns Assessment Noted Time PHQ-9 Depression Total Score: 7 05/29/19 10:45 AM EDT documented as of this encounter Care Teams Puzzle Assembler Relationship Specialty Start Date End Date Bea Lacey MD [address] [place] [address] PCP - General Family Medicine 09/22/22 Mariely Dennison PharmD [address] [place] [address] Pharmacist Internal Medicine 07/03/24 [facility] 09/01/24 12/02/24 [facility] 11/09/24 documented as of this encounter
--- OUTSIDE RECORDS SUMMARY | 2024-12-19 18:59 | XMS_ITS | Encounter Summary ---
Author Organization [employer] Address 75 [facility] 7t [place] [address] Care Team Providers Care On Site Coordinator Name Role Phone Bea Lacey MD Primary Care Provider [phone] Mariely Dennison PharmD Unavailable [phone] Reason for Visit * Reason Onset Date Comments chart prep 12/17/2024 Encounter Details Date Type Department Care Team ([facility] Contact Info) Description 12/17/2024 Telephone [facility] CHC MED & PEDS [address] [place], [place] [phone] Bea Lacey MD 505 [place], [place] [phone] chart prep Social History Tobacco Use Types Packs/Day Years [...] encounter Miscellaneous Notes * Telephone Encounter - Stephanie Mathews MA - 12/17/2024 1:30 PM EDT Chart Prep Labs: not applicable Images: not applicable Referrals: not applicable Vaccines due: Covid, Flu, Hep A, and RSV Screenings: foot exam Overdue care gaps: A1c, Glucose, and SBIRT documented in this encounter Plan of Treatment Upcoming Encounters Date Type Department Care Team (Late st Contact Info) Description 12/26/2024 2:00 PM EST Office Visit [facility] ADULT DENTAL [address] [place] [address] Shyam Gillette, DDS 230 [place] [address] 02/19/2025 2:00 PM EST Office Visit [facility] MED & PEDS [address] [place] [address] Cat Dumont EDGE BANDING OFF BEARER 505 [place] [address] 06/18/2025 1:30 PM EDT Office Visit [facility] ADULT DENTAL [address] [place] [address] Daniele Barlow documented as of this encounter Visit Diagnoses Not on filedocumented in this encounter Additional Health Concerns Assessment Noted Time PHQ-9 Depression Total Score: 9 09/19/19 25 9:36 AM EDT documented as of this encounter Care Teams On Site Coordinator Relationship Specialty Start Date End Date Bea Lacey MD 230 [place] [address] PCP - General Family Medicine 09/22/22 Mariely Dennison PharmD [address] [place] [address] Pharmacist Internal Medicine 07/03/24 [facility] 11/09/24 documented as of this encounter
--- OUTSIDE RECORDS SUMMARY | 2024-12-19 18:59 | XMS_ITS | Encounter Summary ---
Author Organization [employer] Address 75 [facility] 7t [place] [address] Care Team Providers Care Farmworker Dairy Name Role Phone Bea Lacey MD Primary Care Provider [phone] Mariely Dennison PharmD Unavailable [phone] Reason for Visit * Reason Onset Date Comments Medication Question 02/07/2023 Encounter Details Date Type Department Care Team ([facility] st Contact Info) Description 02/07/2023 Telephone [facility] MEDICINE 230 [place], [place] [phone] Bea Lacey MD [address] [place], [place] [phone] Medication Question Social History Tobacco Use Types [...] of Linzess and had the med lowered [id number] last month. Pt states diarrhea has stopped [...] Description 12/26/2024 2:00 PM EST Office Visit [facility] ADULT DENTAL 505 [place], [place] [phone] Shyam Gillette DDS 230 [place] [address] 02/19/2025 2:00 PM EST Office Visit [facility] MED & PEDS 505 [place], [place] [phone] Cat Dumont CNP 505 [place] [address] 06/18/2025 1:30 PM EDT Office Visit [facility] CHC ADULT DENTAL 505 [place] [address] Daniele Barlow documented as of this encounter Visit Diagnoses Not on filedocumented in this encounter Additional Health Concerns Assessment Noted Time PHQ-9 Depression Total Score: 7 05/29/19 10:45 AM EDT documented as of this encounter Care Teams Farmworker Dairy Relationship Specialty Start Date End Date Bea Lacey MD 230 [place] [address] PCP - General Family Medicine 09/22/22 Mariely Dennison PharmD 230 [place] [address] Pharmacist Internal Medicine 07/03/24 [facility] 09/01/24 12/02/24 [facility] 11/09/24 documented as of this encounter
--- OUTSIDE RECORDS SUMMARY | 2024-12-19 18:59 | XMS_ITS | Encounter Summary ---
Author Organization [employer] Address 75 [facility] 7t [place] [address] Care Team Providers Care Resistor Inspector Name Role Phone Bea Lacey MD Primary Care Provider [phone] Mariely Dennison PharmD Unavailable [phone] Encounter Details Date Type Department Care Team (Late st Contact Info) Description 02/29/2024 Orders Only [facility] CHC MED & PEDS 505 [place], [place] [phone] Bea Lacey MD 505 [place], [place] [phone] Type 2 diabetes mellitus with hyperglycemia (CMS/HCC) [...] Description 12/26/2024 2:00 PM EST Office Visit [facility] ADULT DENTAL 505 [place] [address] Shyam Gillette DDS 230 [place] [address] 02/19/2025 2:00 PM EST Office Visit [facility] MED & PEDS [address] [place] [address] Cat Dumont, TYREE 505 [place] [address] 06/18/2025 1:30 PM EDT Office Visit [facility] ADULT DENTAL [address] [place] [address] Daniele Barlow documented as of this encounter Visit Diagnoses Diagnosis Type 2 diabetes mellitus with hyperglycemia (HCC) documented in this encounter Additional Health Concerns Assessment Noted Time PHQ-9 Depression Total Score: 20 024 10:22 AM EDT documented as of this encounter Care Teams Resistor Inspector Relationship Specialty Start Date End Date Bea Lacey MD 230 [place] [address] PCP - General Family Medicine 09/22/22 Mariely Dennison PharmD 230 [place] [address] Pharmacist Internal Medicine 07/03/24 [facility] 09/01/24 12/02/24 [facility] 11/09/24 documented as of this encounter
--- OUTSIDE RECORDS SUMMARY | 2024-12-19 18:59 | XMS_ITS | Encounter Summary ---
Author Organization [employer] Address 75 [facility] 7t [place] [address] Care Team Providers Care Dry Roaster Name Role Phone Bea Lacey MD Primary Care Provider [phone] Mariely Dennison PharmD Unavailable [phone] Reason for Visit * Reason Onset Date Comments Results 03/30/2023 Encounter Details Date Type Department Care Team ([facility] st Contact Info) Description 03/30/2023 Telephone [facility] MEDICINE 230 [place], [place] [phone] Bea Lacey MD [address] [place], [place] [phone] Results Social History Tobacco Use Types Packs/Day [...] 2:00 PM EST Office Visit [facility] ADULT DENTAL [address] [place] [address] Shyam Gillette DDS 230 [place] [address] 02/19/2025 2:00 PM EST Office Visit [facility] MED & PEDS 505 [place] [address] Cat Dumont, TREAD CUTTER 505 [place] [address] 06/18/2025 1:30 PM EDT Office Visit [facility] ADULT DENTAL 505 [place] [address] Daniele Barlow documented as of this encounter Visit Diagnoses Not on filedocumented in this encounter Additional Health Concerns Assessment Noted Time PHQ-9 Depression Total Score: 7 05/29/19 10:45 AM EDT documented as of this encounter Care Teams Dry Roaster Relationship Specialty Start Date End Date Bea Lacey MD 230 [place] [address] PCP - General Family Medicine 09/22/22 Mariely Dennison PharmD 230 [place] [address] Pharmacist Internal Medicine 07/03/24 [facility] 09/01/24 12/02/24 [facility] 11/09/24 documented as of this encounter
--- OUTSIDE RECORDS SUMMARY | 2024-12-19 18:59 | XMS_ITS | Encounter Summary ---
Author Organization [employer] Address 75 [facility] 7t [place] [address] Care Team Providers Care Wastewater Analyst Lab Analyst Name Role Phone Bea Lacey MD Primary Care Provider [phone] Mariely Dennison PharmD Unavailable [phone] Reason for Visit * Reason Comments Med Refill Encounter Details Date Type Department Care Team ([facility] st Contact Info) Description 11/27/2024 Refill [facility] CHC MED & PEDS 505 [place], [place] [phone] Bea Lacey MD 505 [place], [place] [phone] Gastroesophageal reflux disease without esophagitis; Essential tremor [...] Visit [facility] ADULT DENTAL 505 [place] [address] Shyam Gillette DDS 230 [place] [address] 02/19/2025 2:00 PM EST Office Visit [facility] MED & PEDS 505 [place] [address] Cat Dumont, TECHNICAL PUBLICATIONS WRITER 505 [place] [address] 06/18/2025 1:30 PM EDT Office Visit [facility] ADULT DENTAL 505 [place] [address] Daniele Barlow documented as of this encounter Visit Diagnoses Diagnosis Gastroesophageal reflux disease without esophagitis Esophageal reflux Essential tremor documented in this encounter Additional Health Concerns Assessment Noted Time PHQ-9 Depression Total Score: 9 09/19/19 25 9:36 AM EDT documented as of this encounter Care Teams Wastewater Analyst Lab Analyst Relationship Specialty Start Date End Date Bea Lacey MD 230 [place] [address] PCP - General Family Medicine 09/22/22 Mariely Dennison, [place] 230 [place] [address] Pharmacist Internal Medicine 07/03/24 [facility] 09/01/24 12/02/24 [facility] 11/09/24 documented as of this encounter
--- OUTSIDE RECORDS SUMMARY | 2024-12-19 18:59 | XMS_ITS | Encounter Summary ---
Author Organization [employer] Address 75 [facility] 7t [place] [address] Care Team Providers Care Furniture Dipper Name Role Phone Bea Lacey MD Primary Care Provider [phone] Mariely Dennison PharmD Unavailable [phone] Reason for Visit * Reason Comments Med Refill Encounter Details Date Type Department Care Team ([facility] Contact Info) Description 09/30/2022 Refill [facility] MED & PEDS 505 [place], [place] [phone] Gordon Mills MD 505 [place] [address] Chronic rhinitis Social History Tobacco Use Types [...] Upcoming Encounters Date Type Department Care Team ([facility] Contact Info) Description 12/26/2024 2:00 PM EST Office Visit [facility] ADULT DENTAL 505 [place], [place] [phone] Shyam Gillette DDS [address] [place] [address] 02/19/2025 2:00 PM EST Office Visit [facility] MED & PEDS [address] [place] [address] Cat Dumont, CRANE OILER 505 [place] [address] 06/18/2025 1:30 PM EDT Office Visit [facility] ADULT DENTAL [address] [place] [address] Daniele Barlow documented as of this encounter Visit Diagnoses Diagnosis Chronic rhinitis documented in this encounter Additional Health Concerns Assessment Noted Time PHQ-9 Depression Total Score: 7 05/29/19 23 10:45 AM EDT documented as of this encounter Care Teams Furniture Dipper Relationship Specialty Start Date End Date Bea Lacey MD 230 [place] [address] PCP - General Family Medicine 09/22/22 Mariely Dennison PharmD [address] [place] [address] Pharmacist Internal Medicine 07/03/24 [facility] 09/01/24 12/02/24 [facility] 11/09/24 documented as of this encounter
--- OUTSIDE RECORDS SUMMARY | 2024-12-19 18:59 | XMS_ITS | Encounter Summary ---
Author Organization [employer] Address 75 [facility] 7t [place] [address] Care Team Providers Care Mason Tender Restoration Labor Name Role Phone Bea Lacey MD Primary Care Provider [phone] Mariely Dennison PharmD Unavailable [phone] Reason for Visit * Reason Comments Med Refill Encounter Details Date Type Department Care Team ([facility] st Contact Info) Description 03/30/2024 Refill [facility] CHC MED & PEDS [address] [place], [place] [phone] Bea Lacey MD 505 [place], [place] [phone] Essential tremor Social History Tobacco Use Types [...] - [facility] ADULT DENTAL 505 [place] [address] Shyam Gillette DDS 230 [place] [address] 02/19/2025 2:00 PM EST Office Visit [facility] MED & PEDS [address] [place] [address] Cat Dumont CNP 505 [place] [address] 06/18/2025 1:30 PM EDT Office Visit [facility] ADULT DENTAL [address] [place] [address] Daniele Barlow documented as of this encounter Visit Diagnoses Diagnosis Essential tremor documented in this encounter Additional Health Concerns Assessment Noted Time PHQ-9 Depression Total Score: 20 024 10:22 AM EDT documented as of this encounter Care Teams Mason Tender Restoration Labor Relationship Specialty Start Date End Date Bea Lacey MD [address] [place] [address] PCP - General Family Medicine 09/22/22 Mariely Dennison PharmD 230 [place] [address] Pharmacist Internal Medicine 07/03/24 [facility] 09/01/24 12/02/24 [facility] 11/09/24 documented as of this encounter
--- OUTSIDE RECORDS SUMMARY | 2024-12-19 18:59 | XMS_ITS | Encounter Summary ---
Author Organization [employer] Address [address] [facility] 7[address] [place] [address] Care Team Providers Care Pet Care Worker Name Role Phone Bea Lacey MD Primary Care Provider [phone] Mariely Dennison PharmD Unavailable [phone] Reason for Visit * Reason Onset Date Comments Results 11/16/2023 Encounter Details Date Type Department Care Team ([facility] st Contact Info) Description 11/16/2023 Telephone [facility] MEDICINE [address] [place], [place] [phone] Bea Lacey MD [address] [place], [place] [phone] Results Social History Tobacco Use Types Packs/Day [...] PM EDT Tc from pt returning call. Technology Support Analyst advise previous message. Pt verbalizes understanding. * [...] results: Labs Date when done: 11/10/23 Facility: [facility] Labs documented in this encounter Plan of Treatment Upcoming Encounters Date Type Department Care Team (Late st Contact Info) Description 12/26/2024 2:00 PM EST Office Visit [facility]ULT D[facility]AL [address] [place] [address] Shyam Gillette DDS [address] [place] [address] 02/19/2025 2:00 PM EST Office Visit [facility] [address] [place], [place] [phone] Cat Dumont PARISH VISITOR [address] [place] [address] 06/18/2025 1:30 PM EDT Office Visit [facility] [address] [place], [place] [phone] Daniele Barlow documented as of this encounter Visit Diagnoses Not on filedocumented in this encounter Additional Health Concerns Assessment Noted Time PHQ-9 Depression Total Score: 20 024 10:22 AM EDT documented as of this encounter Care Teams Pet Care Worker Relationship Specialty Start Date End Date Bea Lacey MD [address] [place] [address] PCP - General Family Medicine 09/22/22 Mariely Dennison PharmD [address] [place] [address] Pharmacist Internal Medicine 07/03/24 [facility] 09/01/24 12/02/24 [facility] 11/09/24 documented as of this encounter
--- OUTSIDE RECORDS SUMMARY | 2024-12-19 18:59 | XMS_ITS | Encounter Summary ---
Author Organization [employer] Address [address] [facility] 7t [place] [address] Care Team Providers Care Fire Sprinkler Installer Name Role Phone Gordon Mills MD Primary Care Prov ider Bea Lacey MD Primary Care Provider [phone] Mariely Dennison PharmD Unavailable [phone] Reason for Referral * Social Care Application (Routine) - Closed Specialty Diagnoses / Procedures Referred By Contac t Referred To Contact Diabetic / Diabetes Services Diagnoses Type 2 diabetes mellitus with hyperglycemia, without long-term current use of insulin (HCC) Peter Barlow MD [address] [place] [address] Phone: tel: fax: Referral ID Status Reason Start Date Expiration Date V isits Requested Visits Authorized [id number] Closed Specialty Services Required 09/02/2022 03/01/2023 1 1 Encounter Details Date Type Department Care Team ([facility] st Contact Info) Description 09/02/2022 Orders Only [facility] MED & PEDS [address] [place] [address] Peter Barlow MD [address] [place], [place] [phone] Type 2 diabetes mellitus with hyperglycemia, without [...] 12/26/2024 2:00 PM EST Office Visit [facility] ADULT D[facility] [address] [place] [address] Shyam Gillette DDS [address] [place] [address] 02/19/2025 2:00 PM EST Office Visit [facility] PEDS [address] [place] [address] Cat Dumont CNP [address] [place] [address] 06/18/2025 1:30 PM EDT Office Visit [facility] ADULT DENTAL [address] [place] [address] Daniele Barlow Scheduled Referrals Name Type Priority Associated Diagnoses Order Schedule Referral to Diabetes Prevention Program Outpatient Referral Routine Type 2 diabetes mellitus with hyperglycemia, without long-term current use of insulin ([facility]/HCC) Ordered: 09/02/2022 documented as of this encounter Visit Diagnoses Diagnosis Type 2 diabetes mellitus with hyperglycemia, without long-term current use of insulin ([facility])- Primary documented in this encounter Additional Health Concerns Assessment Noted Time PHQ-9 Depression Total Score: 7 05/29/19 23 10:45 AM EDT documented as of this encounter Care Teams Fire Sprinkler Installer Relationship Specialty Start Date End Date Gordon Mills MD [address] [place] [address] PCP - General Internal Medicine 07/12/19 09/21/22 Bea Lacey MD [address] [place] [address] PCP - General Family Medicine 09/22/22 Mariely Dennison PharmD [address] [place] [address] Pharmacist Internal Medicine 07/03/24 [facility] 09/01/24 12/02/24 [facility] 11/09/24 documented as of this encounter
--- OUTSIDE RECORDS SUMMARY | 2024-12-19 18:59 | XMS_ITS | Clinical Summary ---
Author Organization [employer] Address [address] [facility] 7t [place] [address] Care Team Providers Care Book Binder Name Role Phone Bea Lacey MD Primary Care Provider Mariely Dennison PharmD Unavailable [phone] Allergies Active Allergy Reactions Criticality Noted Date Comments Gramineae Pollens 09/26/2024 Other Reaction(s): watery eyes/runny nose Grass Pollen(K-O-R-T-Swt [place]) Unknown Low 07/09/2020 Other 01/28/2022 Grass pollen, Tree and shrub pollen per previous EHR (07/09/20) Semaglutide(0.25 Or 0.5mg-Dos) Abdominal Pain High 02/10/2024 Had Pancreatitis Pollen Extract Low 07/09/2020 Other reaction(s): itchy eyes, sneeze, runny nose Other Reaction(s): itchy eyes, sneeze, runny nose Other Reaction(s): watery eyes/runny nose Trees. per pt. on 12/29/2018 Medications * This document contains information received [...] Take 2 tablets by mouth at bedtime. 022 Active nitroglycerin (Nitrostat) 0.[address] 1 tablet by sublingual route at the 1st sign of attack; may repeat every 5 min x 3 doses, call 911 if sx persist Active zinc gluconate 50 MG tablet Active [...] 024 Active Blood Glucose Monitoring Suppl (FreeStyle Abell Lite) w/Device kit TEST BLOOD SUGAR DAILY [...] ONE TABLET EVERY MORNING 90 tablet 3 Active primidone (Mysoline) 250 MG tabletIndications :Essential [...] Glucose Sensor (FreeStyle Verito 3 Plus Sensor) [facility] 1 each every 15 days. 2 each [...] tablet by mouth Once per day. Active Entresto 49-51 MG tablet Take 1 [...] THE MORNING AND EVENING 60 tablet 11 025 Active sucralfate (Carafate) 1 g tabletIndications :Gastroesophageal reflux disease without esophagitis Take 1 tablet (1 g) by mouth 2 times daily. TAKE ONE TABLET TWICE DAILY IN THE MORNING AND AT BEDTIME ON AN EMPTY STOMACH 60 tablet 1 025 2024 Active lubiprostone (Amitiza) 8 MCG capsuleIndication s:Irritable bowel syndrome with both constipation and diarrhea Take 1 capsule (8 mcg) by mouth with breakfast and with evening meal. 60 capsule 1 025 Active Calcium Carb-Cholecalcife rol (Calcium + Vitamin D3) 600-10 MG-MCG tabletIndications :Vitamin D deficiency Take 600 mg by mouth 2 times daily. TAKE ONE TABLET IN THE MORNING AND EVENING 60 tablet 11 024 2024 Discontinued sucralfate (Carafate) 1 g tabletIndications :Gastroesophageal reflux disease without esophagitis TAKE ONE TABLET TWICE DAILY IN THE MORNING AND AT BEDTIME ON AN EMPTY STOMACH 60 tablet 1 025 2024 Discontinued(R eorder (will not trigger notification to Pharmacy)) lubiprostone (Amitiza) 8 MCG capsule Take 1 capsule by mouth 2 times daily. 2024 Discontinued(R eorder (will not trigger notification to Pharmacy)) Active Problems Problem Noted Date Diagnosed Date Anticoagulated 12/17/2024 Encounter for diagnostic endoscopy 12/17/2024 S/P insertion of brain-responsive neurostimulati on device 12/17/2024 Asthenia 10/28/2024 Falling 10/28/2024 Hypokalemia 10/28/2024 nursing home current use of anticoagulant therapy 0 10/28/2024 Chronic pain 10/28/2024 Atrial fibrillation (CMS/HCC) 10/28/2024 Chronic kidney disease due to hypertension 10/28 Congestive heart failure 10/28/2024 Depressive disorder 10/28/2024 Mental disorder 10/28/2024 Acute hypoxemic respiratory failure (CMS/HCC) Malaise 09/27/2024 Muscle atrophy 09/27/2024 Primary central sleep apnea 09/27/2024 Essential hypertension 09/27/2024 Restless legs 09/27/2024 Acute on chronic diastolic heart failure 025 Atherosclerosis of coronary artery without angin a pectoris 09/26/2024 Cardiomyopathy 09/26/2024 Gastroesophageal reflux disease without esophagi tis 09/26/2024 Glaucoma 09/26/2024 Major depression, single episode 09/26/2024 Undernutrition 09/26/2024 Chronic constipation 09/26/2024 Stage 3 chronic kidney disease (CMS/HCC) 025 Peripheral polyneuropathy 08/15/2024 Assessment & Plan (08/15/2024 [...] to surgery has appointment next week at [facility]. On examination no warning signs Chronic abdominal [...] 3 secondary to diabetes 01/28/2022 CAD in wr[place] artery 01/28/2022 Type 2 diabetes mellitus wit [...] stress disorder 01/20/2022 Restless leg syndrome 01/20/2022 Harmful pattern of substance use 01/20/2022 Abdominal aortic aneurysm 11/02/2018 Mood disorder [...] organization. Date Type Department Care Team Description 12/19/2024 Orders Only [facility] [address] [place] [address] Cat Dumont CNP Irritable bowel syndrome with both constipation and diarrhea (Primary Dx) 12/19/2024 Telephone [facility] MEDICINE [address] [place] [address] Bea Lacey MD Nurse Triage 12/18/2024 9:15 AM EDT Office Visit [facility] [address] [place] [address] Cat Dumont CNP Essential tremor (Primary Dx); Type 2 diabetes mellitus with hyperglycemia, without long-term current use of insulin (HCC); Chronic right-sided low back pain without sciatica; Chronic pain in left shoulder 12/18/2024 Travel 12/17/2024 Telephone [facility] [address] [place] [address] Bea Lacey MD chart prep 12/17/2024 Telephone [facility] [address] [place] [address] Bea Lacey MD 12/14/2024 2:15 PM EDT Office Visit [facility] D[facility] [address] [place] [address] Daniele Barlow Dental calculus (Primary Dx) 12/03/2024 Telephone [facility] [address] [place] [address] Bea Lacey MD 12/03/2024 Patient Outreach [facility] MEDICINE [address] [place] [address] Bea Lacey MD Care Coordination (Home Health Utilization) 12/03/2024 Refill [facility] [address] [place] [address] Bea Lacey MD Gastroesophageal reflux disease without esophagitis 11/27/2024 Refill [facility] [address] [place] [address] Bea Lacey MD Gastroesophageal reflux disease without esophagitis; Essential tremor 11/21/2024 Refill [facility] [address] [place] [address] Bea Lacey MD Vitamin D deficiency 11/20/2024 Orders Only [facility] [address] [place] [address] Bea Lacey MD 11/20/2024 Telephone [facility] [address] [place] [address] Bea Lacey MD 11/16/2024 Orders Only [facility] [address] [place] [address] Cat Dumont CNP Constipation, unspecified constipation type (Primary Dx); CKD stage 3 secondary to diabetes ([facility]); Muscle spasm; Pain 11/16/2024 Telephone [facility] MEDICINE [address] [place] [address] Bea Lacey MD Appointment 11/16/2024 Telephone [facility] [address] [place] [address] Bea Lacey MD 11/16/2024 Refill [facility] [address] [place] [address] Bea Lacey MD 11/15/2024 Telephone [facility] MEDICINE [address] [place] [address] Baylee De La Torre, PharmD 11/14/2024 Telephone [facility] MEDICINE [address] [place] [address] Bea Lacey MD 11/09/2024 Telephone [facility] [address] [place] [address] Bea Lacey MD Call Back Request 11/06/2024 Patient Outreach [facility] MEDICINE [address] [place] [address] Bea Lacey MD Transition Of Care (Tcm) (HDF - scheduled (direct)) 10/26/2024 Telephone [facility] MEDICINE [address] [place] [address] Bea Lacey MD No Show 10/17/2024 Travel 10/17/2024 Telephone [facility] [address] [place] [address] Bea Lacey MD No Show 10/16/2024 Telephone [facility] [address] [place] [address] Bea Lacey MD Chart Prep 10/08/2024 Telephone [facility]ED[facility] [address] [facility] [address] Bea Lacey MD Med reconciliation 10/08/2024 Telephone [facility] MEDICINE [address] [place] [address] Bea Lacey MD Appointment Request 10/05/2024 Telephone [facility] MED & PEDS [address] [facility] [place] [address] Bea Lacey MD fyi 10/03/2024 Patient Outreach [facility] [address] [facility] [place] [address] Bea Lacey MD Transition Of Care (Tcm) (HDF scheduled. ) 09/18/2024 9:15 AM EDT Office Visit [facility] [address] [facility] [place] [address] Bea Lacye MD Benign hypertension (Primary Dx); Type 2 diabetes mellitus with hyperglycemia, without long-term current use of insulin ([facility]); Essential tremor; Peripheral polyneuropathy 09/18/2024 Travel from Last 3 Months Immunizations Immunization Administration Dates Next Due Hep B, adult 10/08/2016,06/15/2016,02/12/2016 Influenza High-dose Quadriva lent Preservative Free 11/01/2023,11/09/2022,12/03/2021,12/10 Influenza Injectable Quadriv alant Preservative Free IIV4 MDCK 12/15/2020 Influenza injectable quadriv alent IIV4 with preservative 11/02/2018,02/12/2016 Influenza injectable quadriv alent preservative free 12/28/2016,11/25/2014 Influenza, High Dose Seasona l, Preservative Free 10/31/2023,12/05/2017 Influenza, IIV3, injectable 10/31/2023,0 11/09/2022,12/03/2021,12/15,12/11/2019,11/02/2018,12/05/2017 ,12/28/2016,02/12/2016,11/25/2014,10/2013,04/26/2012,11/13/2010, 9,03/01/2008,01/07/2006 Influenza, Split (incl. elis fied surface [...] Mass Index 28.89 12/18/2024 9:36 AM EDT Plan of Treatment Upcoming Encounters Date Type Department Care Team (Late st Contact Info) Description 12/26/2024 2:00 PM EST Office Visit [facility] [address] [place] [address] Shyam Gillette, VILLA [address] [place] [address] 02/19/2025 2:00 PM EST Office Visit [facility] [address] [place] [address] Cat Dumont, ASSEMBLY REPAIRER [address] [place] [address] 06/18/2025 1:30 PM EDT Office Visit [facility] [address] [place] [address] Daniele Barlow Health Maintenance Due Date Last Done Comments CT Colonography 1952 FIT DNA/Cologuard 1950 FIT 1950 FOBT 1950 Sigmoidoscopy 1950 Hepatitis A Vaccines (1 of 2 - [...] 2024 , 10/31/2023, 10/31/2023, Additional history exists Lipid Panel 11/09/2024 11/10/2023, 03/25, 11/09/2022, Additional history exists Depression Monitoring 03/21/2025 09/18/2024, 025 Dental Oral Exam 06/15/2025 12/14/2024, , 11/09/2023, Additional history exists Dental Prophylaxis 06/15/2025 12/14/2024, 0 06/15/2024, 11/09/2023, Additional history exists Diabetes: Hemoglobin A1C 06/18/2025 025, 06/01/2024, 11/10/2023, Additional history exists SDOH Screening 09/11/2025 09/11/2024 Tobacco Screening 12/14/2025 12/14/2024 Dental X-Ray: Bitewings 12/15/2025 12/15/19 25, 11/09/2023, 12/22/2022, Additional history exists Alcohol/Substance Use Screening 12/18/2025 12/18/2024 Eye Exam 06/28/2026 06/28/2024 Dental X-Ray: Full [...] without long-term current use of insulin (HCC) PERIODIC ORAL EVALUATION - ESTABLISHED PATIENT Routine 12/14/2024 2:15 PM EDT INTRAORAL - PERIAPICAL FIRST RADIOGRAPHIC IMAGE Routine 12/14/2024 2:15 PM EDT BITEWINGS - 4 RADIOGRAPHIC IMAGES Routine 12/14/2024 2:15 PM EDT CASE PRESENTATION, DETAILED AND EXTENSIVE TREATMENT PLANNING Routine 12/14/2024 2:15 PM EDT ORAL HYGIENE INSTRUCTIONS Routine 12/14/2024 2:15 PM EDT PROPHYLAXIS - ADULT Routine 12/14/2024 2 :15 PM EDT INTRAORAL - PERIAPICAL EACH ADDITIONAL RADIOGRAPHIC IMAGE Routine 12/14/2024 2:15 PM EDT POCT GLUCOSE Routine 09/18/2024 9:24 AM EDT Type 2 diabetes mellitus with hyperglycemia, without long-term current use of insulin (CMS/HCC) DIABETES EYE EXAM Routine 06/28/2024 11:09 AM EDT LIPID PANEL, STANDARD Routine 11/10/2023 11:22 AM [...] Relevant to Health Maintenance Results * (ABNORMAL) POCT A1c (12/18/2024 9:39 AM EDT) Hemoglobin A1C 6.6(A) 4.0 - 5.7 % QC Media Lot # Comment:[id number] Lot# Expiration Date Comment:06/14/2026 Blood 12/18/2024 9:39 AM EDT [facility] POINT OF CARE TEST ENTER/ EDIT ORDERABLES Final Result * (ABNORMAL) POCT glucose manually resulted (12/18/2024 9:38 AM EDT) Only the most recent of2 resultswithin the time period is included. Glucose Blood, POC 257(A) 60 - 200 mg/dL QC Media Lot # Comment:[id number] Lot# Expiration Date Comment:03/31/2025 Blood Capillary blood specimen / Unknown 12/18/2024 9:38 AM EDT Cat Dumont [facility] POINT OF CARE TEST ENTER/ EDIT ORDERABLES Final Result * Diabetes Eye Exam (06/28/2024 11:09 AM EDT) Historical Provider HEALTH MAINTENANCE Final Result * Lipid Panel, Standard (11/10/2023 11:22 AM EDT) Triglycerides 76 <150 mg/dL [facility] Comment:Desirable Triglyceri de: less than 150 mg/dLBorderline High Triglyceride 150-199 mg/dLHigh Triglyceride: 200-499 mg/dLVery High Triglyceride: greater than or equal to 5OO mg/dL Cholesterol 110 <200 mg/dL [facility] Comment:Desirable Cholestero l: less than 200 mg/dLBorderline High Cholesterol: 200-239 mg/dLHigh Cholesterol: greater than 239 mg/dL LDL Cholesterol Calculated 50 <100 mg/dL [facility] Comment:Desirable LDL: less than 100 mg/dLNear Optimal/Above Optimal LDL: 110- 129 mg/dLBorderline High LDL: 130-159 mg/dLHigh LDL: 160-189 mg/dLVery High LDL: greater than or equal to 190 mg/dL HDL Cholesterol 45 >40 mg/dL [facility] Comment:Desirable HDL: great er than 40 mg/dL Note: This HDL assay may give artificially low results in patients with liver disease. Blood Venous blood specimen / Unknown 11/10/2023 11:22 AM EDT 11/10/2023 2:56 PM EDT Bea Lacey MD LAB BLOOD ORDERABLES Final Resul t [facility] [address] [place] [address] [phone] * HEPATITIS C AB W/REFL TO HCV RNA, QN, PCR (10/15/2019 1:23 PM EDT) HEPATITIS C ANTIBODY NON-REACT ELLE NON-REACT ELLE [facility] INDEX 0.01 <1.00 [facility] Comment: HCV antibody was non-reactive. There is no laboratory evidence of HCV infection. In most cases, no further action is required. However, if recent HCV exposure is suspected, a test for HCV RNA (test code 79766) is suggested. For additional information please refer to http://education.[employer]/faq/ZYY63s6 (This link is being provided for informational/ educational purposes only.) 10/15/2019 1:23 PM EDT Gordon Rocha MD HISTORICAL/NON ORD ERABLE LABS Final Result [facility] [address] * Hm Colonoscopy (03/14/2014 12:17 PM EST) Tia Provider HEALTH MAINTENANCE Final Result from Last 3 Months or Most Recently Relevant to Health Maintenance Insurance [place] [address] [place] [address] [place] [id number] [facility] MEDICAID STAND ADULT Care Teams Book Binder Relationship Specialty Start Date End Date Bea Lacey MD [address] [place] [address] PCP - General Family Medicine 09/22/22 Mariely Dennison PharmD [address] [place] [address] Pharmacist Internal Medicine 07/03/24 [facility] 11/09/24
--- OUTSIDE RECORDS SUMMARY | 2024-12-19 18:59 | XMS_ITS | Encounter Summary ---
Author Organization [employer] Address [address] [facility] 7t [place] [address] Care Team Providers Care Community Health Planning Director Name Role Phone Bea Lacey MD Primary Care Provider [phone] Mariely Dennison PharmD Unavailable [phone] Reason for Visit * Reason Onset Date Comments Medication Question 06/20/2023 Encounter Details Date Type Department Care Team ([facility] st Contact Info) Description 06/20/2023 Telephone [facility] MEDICINE [address] [place], [place] [phone] Bea Lacey MD [address] [place], [place] [phone] Medication Question Social History Tobacco Use Types [...] Description 12/26/2024 2:00 PM EST Office Visit [facility] ADULT DENTAL [address] [place] [address] Shyam Gillette DDS [address] [place] [address] 02/19/2025 2:00 PM EST Office Visit [facility] MED & PEDS [address] [place] [address] Cat Dumont CNP [address] [place] [address] 06/18/2025 1:30 PM EDT Office Visit [facility] [address] [place] [address] Daniele Barlow documented as of this encounter Visit Diagnoses Not on filedocumented in this encounter Additional Health Concerns Assessment Noted Time PHQ-9 Depression Total Score: 20 024 10:22 AM EDT documented as of this encounter Care Teams Community Health Planning Director Relationship Specialty Start Date End Date Bea Lacey MD [address] [place] [address] PCP - General Family Medicine 09/22/22 Mariely Dennison PharmD [address] [place] [address] Pharmacist Internal Medicine 07/03/24 [facility] 09/01/24 12/02/24 [facility] 11/09/24 documented as of this encounter
--- OUTSIDE RECORDS SUMMARY | 2025-01-06 20:00 | XMS_ITS | Clinical Summary ---
Author Organization Unknown Care Team Providers Care [employer] Senior Officer Name Role Phone KIAN LEVINE, PAYAL Unavailable Unavaila anne-marie BIRCH RN, MARTÍN Unavailable Unavailab jaycee RONDON PT, YESIKA Unavailable Unavailable JOCY SEBD TEACHER, EDWARD Unavailable Unavailable ALVARO NURSES SUPERVISOR, ROSENDO Unavailable Unavailable Payers Payer Name Policy Type Policy Number Effective Date Expira tion Date MEDICARE.NGS.PDGM [id number] Problems Condition Name Condition Details Condition Category [...] 11-07 00:00: 00 ATHSCL HEART DISEASE OF [place] CORONARY ARTERY W/O ANG PCTRS Active 11-07 00:00: 00 CHRONIC ATRIAL FIBRILLATION , UNSPECIFIED Active 11-07 00:00: 00 OTHER CHRONIC PAIN Active 11-07 00:00: 00 GASTRO-ESOPH AGEAL REFLUX DISEASE WITHOUT ESOPHAGITIS Active 11-07 00:00: 00 PRIMARY CENTRAL SLEEP APNEA Active 11-07 00:00: 00 DEPRESSION, UNSPECIFIED Active 11-07 00:00: 00 OTHER CONSTIPATION Active 11-07 00:00: 00 HYPOKALEMIA Active 11-07 00:00: 00 RESIDENTIAL (CURRENT) USE OF ANTICOAGULAN TS Active 11-07 00:00: 00 OTHER RESIDENTIAL (CURRENT) DRUG THERAPY Active 11-07 00:00: 00 [...] 11-02 00:00: 00 11-09 00:00 :00 No [id number] Per instruc tions Per instructio ns (route: oral) Med Classific ation: Locomotor System bupropion HCl XL 300 mg 24 hr tablet, extended release 11-02 00:00: 00 Yes [id number] ANTIDEPRESS ANT 1 tablet DAILY 1 tablet DAILY (route: oral) Med Classific ation: Central Nervous System Agents clonazepam 0.5 mg tablet 11-02 00:00: 00 11-09 00:00 :00 No [id number] Per instruc tions Per instructio ns (route: oral) Med Classific ation: Central Nervous System Agents esomeprazol e magnesium 40 mg capsule,del ayed release 11-02 00:00: 00 11-09 00:00 :00 No [id number] Per instruc tions Per instructio ns (route: oral) Med Classific ation: Gastroint estinal Therapy Agents Farxiga 10 mg tablet 11-02 00:00: 00 11-09 00:00 :00 No [id number] Per instruc tions Per instructio ns (route: oral) Med Classific ation: Endocrine gabapentin 300 mg capsule 11-02 00:00: 00 11-09 00:00 :00 No [id number] Per instruc tions Per instructio ns (route: oral) Med Classific ation: Central Nervous System Agents hydroxyzine pamoate 25 mg capsule 11-02 00:00: 00 11-09 00:00 :00 No [id number] Per instruc tions Per instructio ns (route: oral) Med Classific ation: Central Nervous System Agents isosorbide mononitrate ER 60 mg tablet,exte nded release 24 hr 11-02 00:00: 00 11-09 00:00 :00 No [id number] Per instruc tions Per instructio ns (route: oral) Med Classific ation: Cardiovas cular Therapy Agents lubiproston e 8 mcg capsule 11-02 00:00: 00 11-09 00:00 :00 No [id number] Per instruc tions Per instructio ns (route: oral) Med Classific ation: Gastroint estinal Therapy Agents mirtazapine 7.5 mg tablet 11-02 00:00: 00 11-09 00:00 :00 No [id number] Per instruc tions Per instructio ns (route: oral) Med Classific ation: Central Nervous System Agents pilocarpine 5 mg tablet 11-02 00:00: 00 Yes [id number] DRY MOUTH 1 tablet 2 TIMES DAILY 1 tablet 2 TIMES DAILY (route: oral) Med Classific ation: Mouth-Thr oat-Denta l - Preparati ons prazosin 5 mg capsule 11-02 00:00: 00 Yes [id number] LOWERS BLOOD PRESSURE 1 capsule BEDTIME 1 capsule BEDTIME (route: oral) Med Classific ation: Cardiovas cular Therapy Agents rosuvastati n 40 mg tablet 11-02 00:00: 00 Yes [id number] LOWERS CHOLESTEROL 1 tablet BEDTIME 1 tablet BEDTIME (route: oral) Med Classific ation: Cardiovas cular Therapy Agents sertraline 100 mg tablet 11-02 00:00: 00 Yes [id number] ANTIDEPRESS ANT 1.5 tablet BEDTIME 1.5 tablet BEDTIME (route: oral) Med Classific ation: Central Nervous System Agents sucralfate 1 gram tablet 11-02 00:00: 00 11-09 00:00 :00 No [id number] Per instruc tions Per instructio ns (route: oral) Med Classific ation: Gastroint estinal Therapy Agents trazodone 50 mg tablet 11-02 00:00: 00 Yes [id number] INSOMNIA 1.5 tablet BEDTIME 1.5 tablet BEDTIME (route: oral) Med Classific ation: Central Nervous System Agents Xarelto 20 mg tablet 11-02 00:00: 00 11-09 00:00 :00 No [id number] Per instruc tions Per instructio ns (route: oral) Med Classific ation: Hematolog ical Agents FreeStyle Verito 3 Plus Sensor device 10-31 00:00: 00 11-09 00:00 :00 No [id number] Unavailable Per instruc tions AND CHANGE EVERY 15 DAYS Per instructio ns AND CHANGE EVERY 15 DAYS (route: miscellane ous) Med Classific ation: Medical Supplies and Durable Medical Equipment (DME) Entresto 49 mg-51 mg tablet 10-16 00:00: 00 Yes [id number] HEART FAILURE 1 tablet 2 TIMES DAILY 1 tablet 2 TIMES DAILY (route: oral) Med Classific ation: Cardiovas cular Therapy Agents Kerendia 20 mg tablet 10-16 00:00: 00 11-09 00:00 :00 No [id number] Per instruc tions DAILY AT Per instructio ns DAILY AT (route: oral) Med Classific ation: Cardiovas cular Therapy Agents torsemide 5 mg tablet 10-16 00:00: 00 11-09 00:00 :00 No [id number] Per instruc tions EVERY Per instructio ns EVERY (route: oral) Med Classific ation: Cardiovas cular Therapy Agents clonidine HCl 0.1 mg tablet 10-08 00:00: 00 11-09 00:00 :00 No [id number] Per instruc tions Per instructio ns (route: oral) Med Classific ation: Cardiovas cular Therapy Agents hydroxyzine HCl 25 mg tablet 10-08 00:00: 00 11-09 00:00 :00 No [id number] Per instruc tions Per instructio ns (route: oral) Med Classific ation: Central Nervous System Agents acetaminoph en 325 mg tablet 11-09 00:00: 00 Yes [id number] PAIN MANAGEMENT 2 tablet EVERY 6 HOURS 2 tablet EVERY 6 HOURS (route: oral) Med Classific ation: Analgesic , Anti-infl ammatory or Antipyret ic baclofen 10 mg tablet 11-09 00:00: 00 Yes [id number] MUSCLE SPASM 1 tablet 3 TIMES DAILY 1 tablet 3 TIMES DAILY (route: oral) Med Classific ation: Locomotor System Calcium 600 + Minerals 600 mg (as carbonate)- 200 unit tablet 11-09 00:00: 00 Yes [id number] SUPPLEMENT 1 tablet 2 TIMES DAILY 1 tablet 2 TIMES DAILY (route: oral) Med Classific ation: Electroly te Balance-N utritiona l Products Colace 100 mg capsule 11-09 00:00: 00 Yes [id number] CONSTIPATIO N 1 capsule 2 TIMES DAILY 1 capsule 2 TIMES DAILY (route: oral) Med Classific ation: Gastroint estinal Therapy Agents esomeprazol e magnesium 40 mg capsule,del ayed release 11-09 00:00: 00 Yes [id number] GERD 1 capsule 2 TIMES DAILY 1 capsule 2 TIMES DAILY (route: oral) Med Classific ation: Gastroint estinal Therapy Agents famotidine 40 mg tablet 11-09 00:00: 00 Yes [id number] GERD 1 tablet DAILY 1 tablet DAILY (route: oral) Med Classific ation: Gastroint estinal Therapy Agents Farxiga 10 mg tablet 11-09 00:00: 00 Yes [id number] HEART FAILURE 1 tablet DAILY 1 tablet DAILY (route: oral) Med Classific ation: Endocrine gabapentin 100 mg capsule 11-09 00:00: 00 Yes [id number] NEUROPATHY 2 capsule 2 TIMES DAILY 2 capsule 2 TIMES DAILY (route: oral) Med Classific ation: Central Nervous System Agents gabapentin 300 mg capsule 11-09 00:00: 00 Yes [id number] NEUROPATHY 1 capsule BEDTIME 1 capsule BEDTIME (route: oral) Med Classific ation: Central Nervous System Agents isosorbide mononitrate ER 60 mg tablet,exte nded release 24 hr 11-09 00:00: 00 Yes [id number] CAD 2 tablet DAILY 2 tablet DAILY (route: oral) Med Classific ation: Cardiovas cular Therapy Agents melatonin 10 mg capsule 11-09 00:00: 00 Yes [id number] INSOMNIA 1 capsule BEDTIME 1 capsule BEDTIME (route: oral) Med Classific ation: Central Nervous System Agents primidone 250 mg tablet 11-09 00:00: 00 Yes [id number] TREMORS 2 tablet 2 TIMES DAILY 2 tablet 2 TIMES DAILY (route: oral) Med Classific ation: Central Nervous System Agents sucralfate 1 gram tablet 11-09 00:00: 00 Yes [id number] GERD 1 tablet 2 TIMES DAILY 1 tablet 2 TIMES DAILY (route: oral) Med Classific ation: Gastroint estinal Therapy Agents Xarelto 20 mg tablet 11-09 00:00: 00 Yes [id number] AFIB 1 tablet DAILY 1 tablet DAILY (route: oral) Med Classific ation: Hematolog ical Agents Amitiza 8 mcg capsule 11-09 00:00: 00 Yes [id number] CONSTIPATIO N 1 capsule 2 TIMES DAILY 1 capsule 2 TIMES DAILY (route: oral) Med Classific ation: Gastroint estinal Therapy Agents aspirin 81 mg tablet,flores yed release 11-09 00:00: 00 Yes [id number] HEART HEALTH 1 tablet DAILY 1 tablet DAILY (route: oral) Med Classific ation: Hematolog ical Agents cetirizine 10 mg tablet 11-09 00:00: 00 Yes [id number] ALLERGIES 1 tablet DAILY 1 tablet DAILY (route: oral) Med Classific ation: Respirato ry Therapy Agents cholecalcif glenn (vitamin D3) 25 mcg (1,000 unit) tablet 11-09 00:00: 00 Yes [id number] SUPPLEMENT 1 tablet DAILY 1 tablet DAILY (route: oral) Med Classific ation: Electroly te Balance-N utritiona l Products torsemide 5 mg tablet 11-09 00:00: 00 Yes [id number] FLUID RETENTION 1 tablet DAILY 1 tablet DAILY (route: oral) Med Classific ation: Cardiovas cular Therapy Agents Kerendia 20 mg tablet 2024-02 0 00:00: 00 Yes [id number] CARDIAC 1 tablet DAILY 1 tablet DAILY (route: oral) Alternate Route: BY MOUTH. Med Classific ation: Cardiovas cular Therapy Agents Senna Lax 8.6 mg tablet 2024-02 0 00:00: 00 Yes [id number] BOWEL 1 tablet BEDTIME 1 tablet BEDTIME (route: oral) Alternate Route: BY MOUTH. Med Classific ation: Gastroint estinal Therapy Agents Vital Signs Vital Name Observation Time Observation Value Commen ts Temperature 2024-12-07 10:46:00.000 97.9 [degF] Temperature 2024-12-04 08:59:00.000 97.7 [degF] Temperature 2024-11-28 12:55:00.000 98.4 [degF] Temperature 2024-11-27 09:44:00.000 97.7 [degF] Temperature 2024-11-23 09:19:00.000 97.7 [degF] Temperature 2024-11-20 11:06:00.000 98.3 [degF] Temperature 2024-11-16 12:46:00.000 97.4 [degF] Temperature 2024-11-14 10:15:00.000 97.8 [degF] Temperature 2024-11-13 09:31:00.000 97.9 [degF] Temperature 2024-11-09 11:39:00.000 97.3 [degF] BMI (%) 2024-11-09 11:20:26.000 27 kg/m2 Height 2024-11-09 11:18:46.000 68 [in_us] Pulse 2024-12-07 10:46:00.000 76 /min Pulse 2024-12-04 08:59:00.000 90 /min Pulse 2024-11-28 12:55:00.000 72 /min Pulse 2024-11-27 09:44:00.000 60 /min Pulse 2024-11-23 09:19:00.000 73 /min Pulse 2024-11-20 11:06:00.000 62 /min Pulse 2024-11-16 12:46:00.000 61 /min Pulse 2024-11-14 10:15:00.000 80 /min Pulse 2024-11-13 09:31:00.000 84 /min Pulse 2024-11-09 11:39:00.000 60 /min O2 Saturation (%) 2024-12-07 10:46:00.000 96 % [...] Saturation (%) 2024-11-09 11:39:00.000 95 % Respirations 2024-12-07 10:46:00.000 18 /min Respirations 2024-12-04 08:59:00.000 18 /min Respirations 2024-11-28 12:55:00.000 18 /min Respirations 2024-11-27 09:44:00.000 18 /min Respirations 2024-11-23 09:19:00.000 18 /min Respirations 2024-11-20 11:06:00.000 18 /min Respirations 2024-11-16 12:46:00.000 18 /min Respirations 2024-11-14 10:15:00.000 18 /min Respirations 2024-11-13 09:31:00.000 18 /min Respirations 2024-11-09 11:39:00.000 18 /min Weight (lbs) 2024-12-07 10:52:00.000 186 [lb_av] Weight (lbs) 2024-12-04 08:59:00.000 185 [lb_av] Weight (lbs) 2024-11-28 13:05:00.000 184 [lb_av] Weight (lbs) 2024-11-27 09:44:00.000 186 [lb_av] Weight (lbs) 2024-11-23 09:19:00.000 187 [lb_av] Weight (lbs) 2024-11-20 11:06:00.000 187 [lb_av] Weight (lbs) 2024-11-16 12:46:00.000 185.1 [lb_av] Weight (lbs) 2024-11-14 10:15:00.000 187 [lb_av] Weight (lbs) 2024-11-13 09:31:00.000 185 [lb_av] Weight (lbs) 2024-11-09 11:20:26.000 180 [lb_av] Systolic Blood Pressure 2024-12-07 10:46:00.000 108 mm [...] 11:39:00.000 134 mm [Hg] Diastolic Blood Pressure 2024-12-07 10:46:00.000 [...] TION MANAGEMENT; RN TO ASSESS AND OBSERVE, NURSES SUPERVISOR/LOGISTICS OPERATIONS DIRECTOR TO OBSERVE FALL RISK FACTORS AND EDUCATE PATIENT/CAREGIVER ON STRATEGIES TO MINIMIZE THE RISK OF FALLING. [code = FALL REDUCTION MANAGEMENT; RN TO ASSESS AND OBSERVE, NURSES SUPERVISOR/LOGISTICS OPERATIONS DIRECTOR TO OBSERVE FALL RISK FACTORS AND EDUCATE PATIENT/CAREGIVER ON STRATEGIES TO MINIMIZE THE RISK OF FALLING.] Future Scheduled Test RN TO OBSE RVE, ASSESS, EVALUATE, AND DEVELOP AN INDIVIDUALIZED PLAN OF CARE. AGENCY MAY ACCEPT ORDERS FROM CONSULTING PHYSICIANS. RN TO OBSERVE AND ASSESS, NURSES SUPERVISOR/LOGISTICS OPERATIONS DIRECTOR TO OBSERVE FOR RISK FOR FALLS AND INSTRUCT IN FALL PREVENTION, HOME SAFETY, MEDICATION MANAGEMENT, INFECTION PREVENTION, AND NUTRITION MANAGEMENT. RN/NURSES SUPERVISOR/LOGISTICS OPERATIONS DIRECTOR NURSE MAY PERFORM O2 SATURATION LEVEL ON ADMISSION AND PRN FOR RN TO ASSESS/NURSES SUPERVISOR TO OBSERVE PATIENT, WITH NOTIFICATION TO THE PHYSICIAN IF SATURATION IS 90% IN THE ABSENCE OF MORE SPECIFIC PARAMETERS FROM THE PHYSICIAN. AGENCY MAY PERFORM A RESUMPTION OF CARE VISIT FOLLOWING ANY HOSPITAL ADMISSION. RN/NURSES SUPERVISOR/LOGISTICS OPERATIONS DIRECTOR TO MONITOR CO-MORBID CONDITIONS LISTED ON THE PLAN OF CARE AND ANY NEW CONDITIONS THAT PRESENT THEMSELVES DURING THIS EPISODE TO IDENTIFY CHANGES AND INTERVENE TO MINIMIZE COMPLICATIONS. [code = RN TO OBSERVE, ASSESS, EVALUATE, AND DEVELOP AN INDIVIDUALIZED PLAN OF CARE. AGENCY MAY ACCEPT ORDERS FROM CONSULTING PHYSICIANS. RN TO OBSERVE AND ASSESS, NURSES SUPERVISOR/LOGISTICS OPERATIONS DIRECTOR TO OBSERVE FOR RISK FOR FALLS AND INSTRUCT IN FALL PREVENTION, HOME SAFETY, MEDICATION MANAGEMENT, INFECTION PREVENTION, AND NUTRITION MANAGEMENT. RN/NURSES SUPERVISOR/LOGISTICS OPERATIONS DIRECTOR NURSE MAY PERFORM O2 SATURATION LEVEL ON ADMISSION AND PRN FOR RN TO ASSESS/NURSES SUPERVISOR TO OBSERVE PATIENT, WITH NOTIFICATION TO THE PHYSICIAN IF SATURATION IS 90% IN THE ABSENCE OF MORE SPECIFIC PARAMETERS FROM THE PHYSICIAN. AGENCY MAY PERFORM A RESUMPTION OF CARE VISIT FOLLOWING ANY HOSPITAL ADMISSION. RN/NURSES SUPERVISOR/LOGISTICS OPERATIONS DIRECTOR TO MONITOR CO-MORBID CONDITIONS LISTED ON THE PLAN OF CARE AND ANY NEW CONDITIONS THAT PRESENT THEMSELVES DURING THIS EPISODE TO IDENTIFY CHANGES AND INTERVENE TO MINIMIZE COMPLICATIONS.] Future Scheduled Test PAIN MANAG EMENT; RN TO ASSESS AND TEACH, LOGISTICS OPERATIONS DIRECTOR/NURSES SUPERVISOR TO OBSERVE AND TEACH AND PROVIDE EDUCATION ON PAIN MANAGEMENT TECHNIQUES. [code = PAIN MANAGEMENT; RN TO ASSESS AND TEACH, LOGISTICS OPERATIONS DIRECTOR/NURSES SUPERVISOR TO OBSERVE AND TEACH AND PROVIDE EDUCATION ON PAIN MANAGEMENT TECHNIQUES.] Future Scheduled Test RISK FOR H OSPITALIZATION; RN TO ASSESS/TEACH, LOGISTICS OPERATIONS DIRECTOR/NURSES SUPERVISOR TO OBSERVE/TEACH PATIENT/CAREGIVER ON RISK FOR HOSPITALIZATION/EMERGENCY ROOM VISITS, TEACH SIGNS AND SYMPTOMS THAT PUT PATIENT AT RISK, WHEN TO NOTIFY NURSE/PHYSICIAN OF COMPLICATIONS/DECLINE, AND WHEN TO CALL 911. [code = RISK FOR HOSPITALIZATION; RN TO ASSESS/TEACH, LOGISTICS OPERATIONS DIRECTOR/NURSES SUPERVISOR TO OBSERVE/TEACH PATIENT/CAREGIVER ON RISK FOR HOSPITALIZATION/EMERGENCY ROOM VISITS, TEACH SIGNS AND SYMPTOMS THAT PUT PATIENT AT RISK, WHEN TO NOTIFY NURSE/PHYSICIAN OF COMPLICATIONS/DECLINE, AND WHEN TO CALL 911.] Future Scheduled Test HEART FAIL URE MONITORING RN/LOGISTICS OPERATIONS DIRECTOR/NURSES SUPERVISOR TO MONITOR PATIENT FOR SIGNS AND SYMPTOMS OF HEART FAILURE EXACERBATION, MONITOR FOR ADHERENCE WITH MEDICATION AND HEART FAILURE MANAGEMENT REGIMEN. [code = HEART FAILURE MONITORING RN/LOGISTICS OPERATIONS DIRECTOR/NURSES SUPERVISOR TO MONITOR PATIENT FOR SIGNS AND SYMPTOMS OF HEART FAILURE EXACERBATION, MONITOR FOR ADHERENCE WITH MEDICATION AND HEART FAILURE MANAGEMENT REGIMEN.] Future Scheduled Test DIABETES M ONITORING RN/LOGISTICS OPERATIONS DIRECTOR/NURSES SUPERVISOR TO MONITOR BLOOD SUGAR LOG FOR BLOOD SUGAR READINGS THAT ARE BEING CHECKED BY PATIENT VIA CGM. PATIENT THERAPEUTIC BLOOD SUGAR PARAMETERS ARE 70 - 350. REPORT BLOOD SUGARS OUT OF RANGE TO PHYSICIAN. NURSE MAY PERFORM FINGER STICK BLOOD GLUCOSE NEEDED FOR SIGNS AND SYMPTOMS OF HYPO AND HYPERGLYCEMIA. RN/LOGISTICS OPERATIONS DIRECTOR/NURSES SUPERVISOR TO MONITOR ADHERENCE OF PATIENT PERFORMING DIABETIC FOOT CARE AND MAY PERFORM DIABETIC FOOT CARE PRN. RN/LOGISTICS OPERATIONS DIRECTOR/NURSES SUPERVISOR TO MONITOR FOR ADHERENCE TO DIABETIC SELF-CARE AND MANAGEMENT INCLUDING MEDICATIONS. [code = DIABETES MONITORING RN/LOGISTICS OPERATIONS DIRECTOR/NURSES SUPERVISOR TO MONITOR BLOOD SUGAR LOG FOR BLOOD SUGAR READINGS THAT ARE BEING CHECKED BY PATIENT VIA CGM. PATIENT THERAPEUTIC BLOOD SUGAR PARAMETERS ARE 70 - 350. REPORT BLOOD SUGARS OUT OF RANGE TO PHYSICIAN. NURSE MAY PERFORM FINGER STICK BLOOD GLUCOSE NEEDED FOR SIGNS AND SYMPTOMS OF HYPO AND HYPERGLYCEMIA. RN/LOGISTICS OPERATIONS DIRECTOR/NURSES SUPERVISOR TO MONITOR ADHERENCE OF PATIENT PERFORMING DIABETIC FOOT CARE AND MAY PERFORM DIABETIC FOOT CARE PRN. RN/LOGISTICS OPERATIONS DIRECTOR/NURSES SUPERVISOR TO MONITOR FOR ADHERENCE TO DIABETIC SELF-CARE AND MANAGEMENT INCLUDING MEDICATIONS.] Future Scheduled Test MEDICATION MANAGEMENT; RN/NURSES SUPERVISOR/LOGISTICS OPERATIONS DIRECTOR TO REVIEW MEDICATIONS FOR INTERACTIONS, EFFECTIVENESS OF DRUG THERAPY, AND SIGNS/SYMPTOMS OF ADVERSE REACTIONS. MAY INSTRUCT AND REINFORCE MEDICATION TEACHING RELATED TO THE USE OF MEDICATIONS, DOSAGE, FREQUENCY, PURPOSE, SIDE EFFECTS, AND TO REPORT COMPLICATIONS. [code = MEDICATION MANAGEMENT; RN/NURSES SUPERVISOR/LOGISTICS OPERATIONS DIRECTOR TO REVIEW MEDICATIONS FOR INTERACTIONS, EFFECTIVENESS OF DRUG THERAPY, AND SIGNS/SYMPTOMS OF ADVERSE REACTIONS. MAY INSTRUCT AND REINFORCE MEDICATION TEACHING RELATED TO THE USE OF MEDICATIONS, DOSAGE, FREQUENCY, PURPOSE, SIDE EFFECTS, AND TO REPORT COMPLICATIONS.] Future Scheduled Test AGENCY MAY PERFORM A RESUMPTION OF CARE VISIT FOLLOWING ANY HOSPITAL ADMISSION. PT TO EVALUATE, OBSERVE / ASSESS, AND MONITOR, SEBD TEACHER TO OBSERVE AND MONITOR, PROVIDE SKILLED THERAPEUTIC INTERVENTION, ACTIVITY, EDUCATION, AND TRAINING TO ADDRESS; PT/SEBD TEACHER TO PROVIDE GAIT TRAINING FOR IMPROVED MOBILITY AND /OR TO NORMALIZE GAIT PATTERN NEUROMUSCULAR RE-EDUCATION / BALANCE / POSTURAL CONTROL (PT) THERAPEUTIC EXERCISES AND ESTABLISHING A HOME EXERCISE PROGRAM (PT/SEBD TEACHER) SIT TO/FROM STAND TRANSFERS (PT/SEBD TEACHER) PT TO ASSESS / SEBD TEACHER TO MONITOR FOR AND REPORT EARLY SIGNS OF ANTICOAGULANT TOXICITY TO THE PHYSICIAN AND/OR THE RN CLINICAL SOIL FERTILITY EXTENSION SPECIALIST FOR PHYSICIAN NOTIFICATION AND TO PROVIDE PATIENT/CAREGIVER EDUCATION ON ANTICOAGULANT THERAPY PT / SEBD TEACHER TO MONITOR AND EDUCATE ON OXYGEN SATURATION DURING ADLS/IADLS, NOTIFY PHYSICIAN AND/OR THE RN CLINICAL SOIL FERTILITY EXTENSION SPECIALIST FOR PHYSICIAN NOTIFICATION AND IF O2 SATS BELOW PHYSICIAN ORDERED PARAMETERS AFTER 10 MIN OF REST PT TO ASSESS / SEBD TEACHER TO MONITOR FOR HEART FAILURE EXACERBATION AND RECORD PATIENT REPORTED WEIGHT, AND NOTIFY THE PHYSICIAN AND/OR THE RN CLINICAL SOIL FERTILITY EXTENSION SPECIALIST FOR PHYSICIAN NOTIFICATION OF HF EXACERBATION (2LB WEIGHT GAIN IN 1 DAY, 5LBS IN A WEEK OR 5 LBS OVER BASELINE; INCREASED SOB, EDEMA, NEEDING MORE PILLOWS AT NIGHT, CRACKLES IN BASIS OF THE LUNGS OR PMI SHIFT) PT TO ASSESS / SEBD TEACHER TO MONITOR CARDIO/RESPIRATORY SYSTEM; AND NOTIFY THE PHYSICIAN AND/OR THE RN CLINICAL SOIL FERTILITY EXTENSION SPECIALIST FOR PHYSICIAN NOTIFICATION FOR EARLY SIGNS AND SYMPTOMS OF EXACERBATION OR DETERIORATION. PT/SEBD TEACHER TO IDENTIFY FALL RISK FACTORS; EDUCATE THE PATIENT/CAREGIVER ON WAYS TO REDUCE FALL RISK FACTORS AND ESTABLISH HOME EXERCISE PROGRAM TO MINIMIZE FALL RISK. MAY TEACH THE PATIENT FLOOR RECOVERY WHEN CLINICALLY APPROPRIATE PT / SEBD TEACHER MAY EDUCATE ON PAIN MANAGEMENT CLINICALLY INDICATED, INCLUDING NON-PHARMACOLOGICAL PAIN REDUCTION TECHNIQUES [code = AGENCY MAY PERFORM A RESUMPTION OF CARE VISIT FOLLOWING ANY HOSPITAL ADMISSION. PT TO EVALUATE, OBSERVE / ASSESS, AND MONITOR, SEBD TEACHER TO OBSERVE AND MONITOR, PROVIDE SKILLED THERAPEUTIC INTERVENTION, ACTIVITY, EDUCATION, AND TRAINING TO ADDRESS; PT/SEBD TEACHER TO PROVIDE GAIT TRAINING FOR IMPROVED MOBILITY AND /OR TO NORMALIZE GAIT PATTERN NEUROMUSCULAR RE-EDUCATION / BALANCE / POSTURAL CONTROL (PT) THERAPEUTIC EXERCISES AND ESTABLISHING A HOME EXERCISE PROGRAM (PT/SEBD TEACHER) SIT TO/FROM STAND TRANSFERS (PT/SEBD TEACHER) PT TO ASSESS / SEBD TEACHER TO MONITOR FOR AND REPORT EARLY SIGNS OF ANTICOAGULANT TOXICITY TO THE PHYSICIAN AND/OR THE RN CLINICAL SOIL FERTILITY EXTENSION SPECIALIST FOR PHYSICIAN NOTIFICATION AND TO PROVIDE PATIENT/CAREGIVER EDUCATION ON ANTICOAGULANT THERAPY PT / SEBD TEACHER TO MONITOR AND EDUCATE ON OXYGEN SATURATION DURING ADLS/IADLS, NOTIFY PHYSICIAN AND/OR THE RN CLINICAL SOIL FERTILITY EXTENSION SPECIALIST FOR PHYSICIAN NOTIFICATION AND IF O2 SATS BELOW PHYSICIAN ORDERED PARAMETERS AFTER 10 MIN OF REST PT TO ASSESS / SEBD TEACHER TO MONITOR FOR HEART FAILURE EXACERBATION AND RECORD PATIENT REPORTED WEIGHT, AND NOTIFY THE PHYSICIAN AND/OR THE RN CLINICAL SOIL FERTILITY EXTENSION SPECIALIST FOR PHYSICIAN NOTIFICATION OF HF EXACERBATION (2LB WEIGHT GAIN IN 1 DAY, 5LBS IN A WEEK OR 5 LBS OVER BASELINE; INCREASED SOB, EDEMA, NEEDING MORE PILLOWS AT NIGHT, CRACKLES IN BASIS OF THE LUNGS OR PMI SHIFT) PT TO ASSESS / SEBD TEACHER TO MONITOR CARDIO/RESPIRATORY SYSTEM; AND NOTIFY THE PHYSICIAN AND/OR THE RN CLINICAL SOIL FERTILITY EXTENSION SPECIALIST FOR PHYSICIAN NOTIFICATION FOR EARLY SIGNS AND SYMPTOMS OF EXACERBATION OR DETERIORATION. PT/SEBD TEACHER TO IDENTIFY FALL RISK FACTORS; EDUCATE THE PATIENT/CAREGIVER ON WAYS TO REDUCE FALL RISK FACTORS AND ESTABLISH HOME EXERCISE PROGRAM TO MINIMIZE FALL RISK. MAY TEACH THE PATIENT FLOOR RECOVERY WHEN CLINICALLY APPROPRIATE PT / SEBD TEACHER MAY EDUCATE ON PAIN MANAGEMENT CLINICALLY INDICATED, [...] 2025-01-07 00:00:00 Outpatient NEW ADMISSION [facility] [id number] 24.00
== END 2024-12-19 15:25 | disposition home or self-care (01) ==
LOC: HO.PMC 14:37
PROVIDERS: PCP Student in an Organized Health Care Education/Training Program; Visit Provider Anesthesiology
DX: M53.3 Sacrococcygeal disorders, not elsewhere classified (principal); M46.1 Sacroiliitis, not elsewhere classified; M54.51 Vertebrogenic low back pain; G89.4 Chronic pain syndrome; G89.29 Other chronic pain; E11.65 Type 2 diabetes mellitus with hyperglycemia
CPT/HCPCS: 99213

== ENCOUNTER → 2024-12-19 14:36 | Outpatient (BNVA) | payer MEDICARE, MEDICAID, SELFPAY | PROVIDERS: PCP Student in an Organized Health Care Education/Training Program; Visit Provider Anesthesiology | DX: G89.4 Chronic pain syndrome (principal); M54.51 Vertebrogenic low back pain; M53.3 Sacrococcygeal disorders, not elsewhere classified; E11.65 Type 2 diabetes mellitus with hyperglycemia; M46.1 Sacroiliitis, not elsewhere classified | CPT/HCPCS: 99212 ==

== ENCOUNTER 2025-01-01 10:03 | Outpatient (REF) | payer MEDICARE, MEDICAID, SELFPAY ==
--- OUTSIDE RECORDS SUMMARY | 2024-12-26 14:00 | XMS_ITS | Encounter Summary ---
Author Organization [employer] Address [address] [facility] 7t [place] [address] Care Team Providers Care Ceramics Test Engineer Name Role Phone DennisonJoanna bustilloscia PharmD Unavailable [phone] Cat Dumont CNP Primary Care Provider [phone] Reason for Visit * Reason Comments Filling Pt took Premeds arou nd 11Am.Breann Burch Encounter Details Date Type Department Care Team (Late st Contact Info) Description 12/26/2024 2:00 PM EST Office Visit [facility] ADULT DENTAL [address] [place] [address] Shyam Gillette, EMERSONS [address] [place] [address] Social History Tobacco Use Types Packs/Day Years [...] Sign Reading Time Taken Comments Blood Pressure 124/74 12/26/2024 2:17 PM EST Pulse - - Temperature - - Respiratory Rate - - Oxygen Saturation - - Inhaled Oxygen Concentration - - Weight - - Height - - Body Mass Index - - documented in this encounter Progress Notes * Shyam Gillette DDS - 12/26/2024 2:00 PM EST Dental procedures in this visit D2393 - RESIN-BASED COMPOSITE - 3 SURF, POSTERIOR 13 MOD (Completed) Service provider: Shyam Gillette DDS Billing provider: Cyndy Carpio DDS [id number] - CASE PRESENTATION, DETAILED AND EXTENSIVE TREATMENT PLANNING (Completed) Service provider: Shyam Gillette DDS Billing provider: Cyndy Carpio DDS Patient ID: Malik Maki is a 74 y.o. adult. Time Out: Date: 12/26/2024 Location: [facility] Tooth: #13 Procedure: Worship Verified the above with patient, speech therapy assistant, and provider. Confirmed via patient's chart, intraorally and by radiographs. Servomechanism Designer: not applicable Composite yazdanism done on # [address] Shyam Gillette DDS Risk, benefits, and alternatives discussed with the patient. CONSENT FORM INITIALED & SIGNED BY THE PATIENT AND COUNTERSIGNED BY Dr. Shyam Gillette DDS Medical history: Reviewed in EHR Vitals: Blood pressure 124/74. Allergies: Reviewed in EHR Medications: Reviewed in EHR ASA III - LA: 20% topical benzocaine; local infiltration with 1/2 carpule 4% septocaine/articaine 1:100,000epinephrine - Existing yazdanism and recurrent decay removed - Matrix band and wedge used as needed - Desensitizer: Gluma - Dycal: No - Base: No - Etching done using 37% phosphoric acid. - financial services agent applied. - Composite yazdanism done using Filtek body/flowable composite, shade A3 - Anatomy and margins adjusted - Proximal contact confirmed with floss. - Occlusion checked with articulating paper - Necessary reductions made. - Worship smoothed and polished. - Post op instructions given Patient satisfied, left in stable condition Patient made aware possible post op sensitivity NV: Tooth #2 Worship Provider: Dr. Shyam Gillette DDS Director Skills: EFREN Frank Supervising dentist: Dr. Carpio * Cyndy Carpio DDS - 12/26/2024 2:00 PM EST I have reviewed the documentation and dental procedures completed by the rendering provider, VILLA Bustamante, and approve their chart entries for this visit. VILLA Bautista DDS documented in this encounter Plan of Treatment Upcoming Encounters Date Type Department Care Team (Late st Contact Info) Description 01/08/2025 10:30 AM EST Medication Management [facility]ED[facility] [address] [place] [address] Mariely Dennison, PharmD [address] [place] [address] 02/19/2025 2:00 PM EST Office Visit [facility] [address] [place] [address] Cat Dumont CNP [address] [place] [address] 06/18/2025 1:30 PM EDT Office Visit [facility] ADULT DENTAL [address] [place] [address] Daniele Barlow documented as of this encounter Procedures Procedure Name Priority Date/Time Associated Diagnosis Comments 13 MOD RESIN-BASED COMPOSITE - 3 SURF, POSTERIOR Routine 12/26/2024 2:00 PM EST CASE PRESENTATION, DETAILED AND EXTENSIVE TREATMENT PLANNING Routine 12/26/2024 2:00 PM EST documented in this encounter Visit Diagnoses Not on filedocumented in this encounter Additional Health Concerns Assessment Noted Time PHQ-9 Depression Total Score: 9 09/19/19 25 9:36 AM EDT documented as of this encounter Care Teams Ceramics Test Engineer Relationship Specialty Start Date End Date Cat Dumont CNP [address] [place] [address] PCP - General Family Medicine 12/24/24 Mariely Dennison PharmD [address] [place] [address] Pharmacist Internal Medicine 07/03/24 [facility] 11/09/24 documented as of this encounter
--- OUTSIDE RECORDS SUMMARY | 2024-12-27 10:00 | XMS_ITS | Encounter Summary ---
Author Organization [employer] Address [address] [facility] 7t [place] [address] Care Team Providers Care Millinery Salesperson Name Role Phone DennisonJoanna bustilloscia PharmD Unavailable [phone] Cat Dumont CNP Primary Care Provider [phone] Reason for Visit * Reason Comments Filling Pt took Premed about 20-30 Minutes ago. Breann Perez Encounter Details Date Type Department Care Team (Late st Contact Info) Description 12/27/2024 10:00 AM EST Office Visit [facility] ADULT DENTAL [address] [place] [address] Shyam Gillette, VILLA [address] [place] [address] Social History Tobacco Use Types Packs/Day Years [...] y.o. adult. Time Out: Date: 12/27/2024 Location: [facility] Tooth: #2 Procedure: Restorationist Verified the above with patient, executive sales assistant, and provider. Confirmed via patient's chart, intraorally and by radiographs. Medical Photographer: not applicable Composite christianity done on # [address] Shyam [...] 1/2 carpule 4% septocaine/articaine 1:100,000epinephrine - Existing christianity and recurrent decay removed - Matrix band and wedge used as needed - Desensitizer: Gluma - Dycal: No - Base: No - Etching done using 37% phosphoric acid. - reservations agent applied. - Composite christianity done using Filtek body/flowable composite, shade A3 - Anatomy and margins adjusted - Proximal contact confirmed with floss. - Occlusion checked with articulating paper - Necessary reductions made. - Restorationist smoothed and polished. - Post op instructions [...] Oral Exam Provider: Dr. Shyam Gillette DDS Repairer And Checker: EFREN Frank Supervising dentist: Dr. Doyle * William Doyle DDS - 12/27/2024 10:00 AM EST Reviewed and signed. documented in this encounter Plan of Treatment Upcoming Encounters Date Type Department Care Team (Late st Contact Info) Description 01/08/2025 10:30 AM EST Medication Management [facility] MED [facility] PED[facility] [address] [place] [address] Mariely Dennison, PharmD [address] [place] [address] 02/19/2025 2:00 PM EST Office Visit [facility] MED [facility] PED[facility] [address] [place] [address] Cat Dumont CNP [address] [place] [address] 06/18/2025 1:30 PM EDT Office Visit [facility] ADULT DENTAL [address] [place] [address] Daniele Barlow documented as of this encounter [...] documented as of this encounter Care Teams Millinery Salesperson Relationship Specialty Start Date End Date Cat Dumont CNP [address] [place] [address] PCP - General Family Medicine 12/24/24 Mariely Dennison PharmD [address] [place] [address] Pharmacist Internal Medicine 07/03/24 [facility] 11/09/24 documented as of this encounter
--- NOTE | ~2025-01-01 | XR_ITS ---
EXAMINATION: XR BILATERAL HIPS WITH AP PELVIS CLINICAL INFORMATION: M16.0 - Bilateral primary osteoarthritis of hip COMPARISON: None available. TECHNIQUE: AP and oblique views both hips. FINDINGS: No acute cortical disruption or malalignment. No lytic or blastic lesions. Vascular clips overlapping the coxofemoral joints bilaterally. There is a metallic reservoir overlapping the right iliac bone no fully included in the hhiez-ky-ayha. XR/XR hips DI min 3V IMPRESSION: No acute fracture or dislocation. No gross degenerative changes. Prior surgical procedure. Electronically signed by: Sulaiman Pichardo MD 01/01/2025 10:37 AM [facility]
--- OUTSIDE RECORDS SUMMARY | 2025-01-01 11:33 | XMS_ITS | Encounter Summary ---
Author Organization [employer] Address [address] [facility] 7t [place] [address] Care Team Providers Care Portfolio Administrator Name Role Phone Bea Lacey MD Primary Care Provider [phone] Mariely Dennison PharmD Unavailable [phone] Cat Dumont CNP Primary Care Provider [phone] Encounter Details Date Type Department Care Team (Late st Contact Info) Description 07/18/2024 Orders Only [facility] [address] [place], [place] [phone] Provider, MD Tia Social History Tobacco Use [...] Description 01/08/2025 10:30 AM EST Medication Management [facility] MED & PEDS [address] [place] [address] Mariely Dennison PharmD [address] [place], [place] [phone] 02/19/2025 2:00 PM EST Office Visit [facility] [address] [place] [address] Cat Dumont, TUBE SPLICER [address] [place] [address] 06/18/2025 1:30 PM EDT Office Visit [facility] ADULT DENTAL [address] [place] [address] Daniele Barlow documented as of this encounter Procedures Procedure Name Priority Date/Time Associated Diagnosis Comments DIABETES EYE EXAM Routine 06/28/2024 11:09 AM EDT documented in this encounter Results * Hm Diabetes Eye Exam (06/28/2024 11:09 AM EDT) us Historical Provider HEALTH MAINTENANCE Final Result documented in this encounter Visit Diagnoses Not on filedocumented in this encounter Additional Health Concerns Assessment Noted Time PHQ-9 Depression Total Score: 20 024 10:22 AM EDT documented as of this encounter Care Teams Portfolio Administrator Relationship Specialty Start Date End Date Bea Lacey MD [address] [place] [address] PCP - General Family Medicine 09/22/22 12/23/24 Cat Dumont CNP [address] [place] [address] PCP - General Family Medicine 12/24/24 Mariely Dennison PharmD [address] [place] [address] Pharmacist Internal Medicine 07/03/24 [facility] 09/01/24 12/02/24 [facility] 11/09/24 documented as of this encounter
--- OUTSIDE RECORDS SUMMARY | 2025-01-01 11:33 | XMS_ITS | Encounter Summary ---
Author Organization [facility] Address [address] [facility] [address] [place] [address] Phone Care Team Providers Care Dispatcher Bus And Trolley Name Role Phone Halle Fontenot MD Primary Care Provider Encounter Details Date Type Department Care Team (Late st Contact Info) Description 01/27/2024 Procedure Pass [facility] [address] [place] [phone] Social History Tobacco Use Types Packs/Day Years [...] on filedocumented in this encounter Care Teams Dispatcher Bus And Trolley Relationship Specialty Start Date End Date Halle Fontenot MD [address] [place] [address] PCP - General Family Medicine 03/09/23 documented as of this encounter Additional Source Comments The information contained in this document represents components of the legal health record. It is not the complete legal health record.[facility]
--- OUTSIDE RECORDS SUMMARY | 2025-01-01 11:33 | XMS_ITS | Encounter Summary ---
Author Organization [employer] Address [address] [facility] 7t [place] [address] Care Team Providers Care Salesperson Florist Supplies Name Role Phone Bea Lacey MD Primary Care Provider [phone] Mariely Dennison PharmD Unavailable [phone] Cat Dumont CNP Primary Care Provider [phone] Reason for Visit * Reason Onset Date Comments returning call RCT appt 06/26/2024 Encounter Details Date Type Department Care Team ([facility] st Contact Info) Description 06/26/2024 Telephone [facility] ADULT DENTAL [address] [place], [place] [phone] KandruSebastián, DDS [address] [place], [place] [phone] returning call RCT appt Social History Tobacco [...] Upcoming Encounters Date Type Department Care Team ([facility] st Contact Info) Description 01/08/2025 10:30 AM EST Medication Management [facility] [address] [place] [address] Mariely Dennison, PharmD [address] [place] [address] 02/19/2025 2:00 PM EST Office Visit [facility] [address] [place] [address] Cat Dumont CNP [address] [place] [address] 06/18/2025 1:30 PM EDT Office Visit [facility] ADULT [facility] [address] [place] [address] Daniele Barlow documented as of this encounter Visit Diagnoses Not on filedocumented in this encounter Additional Health Concerns Assessment Noted Time PHQ-9 Depression Total Score: 20 024 10:22 AM EDT documented as of this encounter Care Teams Salesperson Florist Supplies Relationship Specialty Start Date End Date Bea Lacey MD [address] [place] [address] PCP - General Family Medicine 09/22/22 12/23/24 Cat Dumont CNP [address] [place] [address] PCP - General Family Medicine 12/24/24 Mariely Dennison PharmD [address] [place] [address] Pharmacist Internal Medicine 07/03/24 [facility] 09/01/24 12/02/24 [facility] 11/09/24 documented as of this encounter
--- OUTSIDE RECORDS SUMMARY | 2025-01-01 11:33 | XMS_ITS | Encounter Summary ---
Author Organization [employer] Address [address] [facility] 7t [place] [address] Care Team Providers Care Barrel Stave Inspector Name Role Phone Bea Lacey MD Primary Care Provider [phone] Mariely Dennison PharmD Unavailable [phone] Cat Dumont CNP Primary Care Provider [phone] Reason for Visit * Reason Comments Med Refill Encounter Details Date Type Department Care Team ([facility] Contact Info) Description 07/20/2024 Refill [facility] MED & PEDS [address] [place], [place] [phone] Gordon Mills MD [address] [place] [address] Type 2 diabetes mellitus with hyperglycemia (CMS/HCC) [...] Description 01/08/2025 10:30 AM EST Medication Management [facility] MED & PEDS [address] [place] [address] Mariely Dennison PharmD [address] [place] [address] 02/19/2025 2:00 PM EST Office Visit [facility] MED & PEDS [address] [place] [address] Cat Dumont CNP [address] [place] [address] 06/18/2025 1:30 PM EDT Office Visit [facility] ADULT DENTAL [address] [place] [address] Daniele Barlow documented as of this encounter Visit Diagnoses Diagnosis Type 2 diabetes mellitus with hyperglycemia (HCC) documented in this encounter Additional Health Concerns Assessment Noted Time PHQ-9 Depression Total Score: 20 024 10:22 AM EDT documented as of this encounter Care Teams Barrel Stave Inspector Relationship Specialty Start Date End Date Bea Lacey MD [address] [place] [address] PCP - General Family Medicine 09/22/22 12/23/24 Cat Dumont CNP [address] [place] [address] PCP - General Family Medicine 12/24/24 Mariely Dennison PharmD [address] [place] [address] Pharmacist Internal Medicine 07/03/24 [facility] 09/01/24 12/02/24 [facility] 11/09/24 documented as of this encounter
--- OUTSIDE RECORDS SUMMARY | 2025-01-01 11:33 | XMS_ITS | Clinical Summary ---
Author Organization [facility] Address [address] [place] [address] Phone Care Team Providers Care Detective Private Eye Name Role Phone Halle Fontenot MD Primary [...] patient's age to complete this topic IPV VACCINES Aged Out No longer eligi ble based on patient's age to complete this topic MENINGOCOCCAL VACCINES (ACWY) Aged Out No longer eligible based on patient's age to complete this topic MENINGOCOCCAL VACCINES (B) Aged Out N o longer eligible based on patient's age to complete this topic Medical Devices Not on file Insurance [facility] & B [facility] & [facility] A & [facility] PART A & B [facility] MED[facility] PART A & B [facility] MEDICARE PART A & B Care Teams Detective Private Eye Relationship Specialty Start Date End Date Halle Fontenot MD [address] [place] [address] PCP - General Family Medicine 03/09/23 Additional Source Comments The information contained in this document represents components of the legal health record. It is not the complete legal health record.[facility]
--- OUTSIDE RECORDS SUMMARY | 2025-01-01 11:34 | XMS_ITS | Encounter Summary ---
Author Organization [facility] Address [address] [place] [address] Care Team Providers Care Litharge Mill Operator Name Role Phone Bea Lacey MD Primary Care Provider [phone] Encounter Details Date Type Department Care Team (Late st Contact Info) Description 10/30/2024 Lab Requisition [facility] - Main Lab [address] [place] [address] Lupe Cruz MD [address] [id number] Anemia, unspecified; Other disorders of electrolyte and [...] LAB CHEMISTRY METHOD 10/30/2024 12:50 PM EDT [facility] Potassium 3.9 3.5 - 5.5 mmol/L LAB CHEMISTRY METHOD 10/30/2024 12:50 PM [facility] Chloride 104 96 - 110 mmol/L LAB CHEMISTRY METHOD 10/30/2024 12:50 PM [facility] CO2 25 21 - 32 mmol/L LAB CHEMISTRY METHOD 10/30/2024 12:50 PM [facility] Anion Gap 8 3 - 11 LAB CHEMISTRY METHOD 10/30/2024 12:50 PM [facility] Glucose 155(H) 70 - 100 mg/dL LAB CHEMISTRY METHOD 10/30/2024 12:50 PM [facility] BUN 16 5 - 25 mg/dL LAB CHEMISTRY METHOD 10/30/2024 12:50 PM [facility] Creatinine 1.02 0.70 - 1.30 mg/dL LAB CHEMISTRY METHOD 10/30/2024 12:50 PM [facility] eGFR 78 >=60 mL/min/1. 73m2 LAB CHEMISTRY METHOD 10/30/2024 12:50 PM [facility] Comment:Calculation based on the Chronic Kidney Disease Epidemiology Collaboration (CKD-EPI) equation refit without adjustment for race. BUN/Creatinine Ratio 15.7 LAB CHEMISTRY METHOD 10/30/2024 12:50 PM [facility] Calcium 9.4 8.5 - 10.5 mg/dL LAB CHEMISTRY METHOD 10/30/2024 12:50 PM [facility] AST (SGOT) 22 10 - 42 unit/L LAB CHEMISTRY METHOD 10/30/2024 12:50 PM [facility] ALT (SGPT) 32 10 - 60 unit/L LAB CHEMISTRY METHOD 10/30/2024 12:50 PM [facility] Alkaline Phosphatase 167(H) 42 - 121 unit/L LAB CHEMISTRY METHOD 10/30/2024 12:50 PM [facility] Total Protein 7.3 6.0 - 8.0 g/dL LAB CHEMISTRY METHOD 10/30/2024 12:50 PM EDT [facility] Albumin 3.9 3.2 - 5.0 g/dL LAB CHEMISTRY METHOD 10/30/2024 12:50 PM EDT [facility] Total Bilirubin 0.6 0.0 - 1.4 mg/dL LAB CHEMISTRY METHOD 10/30/2024 12:50 PM EDT [facility] Blood Venous blood specimen / Unknown Venipuncture / Unknown 10/30/2024 7:56 AM EDT 10/30/2024 10:49 AM EDT us Lupe Cruz MD LAB BLOOD ORDERABLES Fin al Result [facility] [address] [place] [address], * (ABNORMAL) Complete blood count (10/30/2024 7:56 AM EDT) WBC 10.0 4.8 - 10.8 K/mcL LAB HEMETOLOGY METHOD 10/30/2024 11:29 AM [facility] RBC 5.80(H) 4.50 - 5.50 M/mcL LAB HEMETOLOGY METHOD 10/30/2024 11:29 AM [facility] Hemoglobin 14.9 13.5 - 17.5 g/dL LAB HEMETOLOGY METHOD 10/30/2024 11:29 AM [facility] Hematocrit 48.6 42.0 - 54.0 % LAB HEMETOLOGY METHOD 10/30/2024 11:29 AM [facility] MCV 84.5 79.0 - 98.0 FL LAB HEMETOLOGY METHOD 10/30/2024 11:29 AM [facility] MCH 25.9(L) 27.0 - 32.0 pcg LAB HEMETOLOGY METHOD 10/30/2024 11:29 AM EDT [facility] MCHC 30.7(L) 32.0 - 37.0 g/dL LAB HEMETOLOGY METHOD 10/30/2024 11:29 AM EDT [facility] RDW 17.6(H) 11.0 - 15.0 % LAB HEMETOLOGY METHOD 10/30/2024 11:29 AM EDT [facility] Platelets 313 130 - 400 K/mcL LAB HEMETOLOGY METHOD 10/30/2024 11:29 AM EDT [facility] MPV 10.7 7.0 - 11.0 FL LAB HEMETOLOGY METHOD 10/30/2024 11:29 AM EDT [facility] NRBC 0.0 <1.0 % LAB HEMETOLOGY METHOD 10/30/2024 11:29 AM EDT [facility] NRBC Absolute 0.00 <0.10 K/mcL LAB HEMETOLOGY METHOD 10/30/2024 11:29 AM EDT [facility] Blood Venous blood specimen / Unknown Venipuncture / Unknown 10/30/2024 7:56 AM EDT 10/30/2024 10:49 AM EDT us Lupe Cruz MD LAB BLOOD ORDERABLES Fin al Result [facility] [address] [place] [address], documented in this encounter Visit Diagnoses Diagnosis Anemia, unspecified Other disorders of electrolyte and fluid balance, not elsewhere classified documented in this encounter Care Teams Litharge Mill Operator Relationship Specialty Start Date End Date Bea Lacey MD [address] [place] [address] PCP - General 04/04/23 documented as of this encounter
--- OUTSIDE RECORDS SUMMARY | 2025-01-01 11:34 | XMS_ITS | Encounter Summary ---
Author Organization [employer] Address [address] [facility] 7t [place] [address] Care Team Providers Care Link Trainer Operator Name Role Phone DennisonJoanna bustilloscia PharmD Unavailable [phone] Cat Dumont CNP Primary Care Provider [phone] Reason for Visit * Reason Comments Med Refill Encounter Details Date Type Department Care Team ([facility] st Contact Info) Description 01/01/2025 Refill [facility] MED & PEDS [address] [place], [place] [phone] Bea Lacey MD [address] [place], [place] [phone] Social History Tobacco Use Types Packs/Day Years [...] 10:30 AM EST Medication Management [facility] MED & PEDS [address] [place] [address] Mariely Dennison, PharmD [address] [place] [address] 02/19/2025 2:00 PM EST Office Visit [facility] MED & PEDS [address] [place] [address] Cat Dumont CNP [address] [place] [address] 06/18/2025 1:30 PM EDT Office Visit [facility] ADULT DENTAL [address] [place] [address] Daniele Barlow documented as of this encounter Visit Diagnoses Not on filedocumented in this encounter Additional Health Concerns Assessment Noted Time PHQ-9 Depression Total Score: 9 09/19/19 25 9:36 AM EDT documented as of this encounter Care Teams Link Trainer Operator Relationship Specialty Start Date End Date Cat Dumont CNP [address] [place] [address] PCP - General Family Medicine 11/3/25 Mariely Dennison, [place] [address] [place] [address] Pharmacist Internal Medicine 07/03/24 [facility] 11/09/24 documented as of this encounter
--- OUTSIDE RECORDS SUMMARY | 2025-01-01 11:34 | XMS_ITS | Encounter Summary ---
Author Organization [employer] Address [address] [facility] 7t [place] [address] Care Team Providers Care Roundhouse Supervisor Name Role Phone Bea Lacey MD Primary Care Provider [phone] Mariely Dennison PharmD Unavailable [phone] Cat Dumont CNP Primary Care Provider [phone] Reason for Visit * Reason Onset Date Comments Results 11/16/2023 Encounter Details Date Type Department Care Team ([facility] st Contact Info) Description 11/16/2023 Telephone [facility] MEDICINE [address] [place], [place] [phone] Bea Lacey MD [address] [place], [place] [phone] Results Social History Tobacco Use Types Packs/Day [...] PM EDT Tc from pt returning call. Pay Per Click Strategist advise previous message. Pt verbalizes understanding. * [...] results: Labs Date when done: 11/10/23 Facility: [facility] Labs documented in this encounter Plan of Treatment Upcoming Encounters Date Type Department Care Team (Late st Contact Info) Description 01/08/2025 10:30 AM EST Medication Management [facility] MED & PEDS [address] [place] [address] Mariely Dennison PharmD [address] [place] [address] 02/19/2025 2:00 PM EST Office Visit [facility] MED & PEDS [address] [place] [address] Cat Dumont CNP [address] [place] [address] 06/18/2025 1:30 PM EDT Office Visit [facility] ADULT DENTAL [address] [place] [address] Daniele Barlow documented as of this encounter Visit Diagnoses Not on filedocumented in this encounter Additional Health Concerns Assessment Noted Time PHQ-9 Depression Total Score: 20 024 10:22 AM EDT documented as of this encounter Care Teams Roundhouse Supervisor Relationship Specialty Start Date End Date Bea Lacey MD [address] [place] [address] PCP - General Family Medicine 09/22/22 12/23/24 Cat Dumont CNP [address] [place] [address] PCP - General Family Medicine 12/24/24 Mariely Dennison PharmD [address] [place] [address] Pharmacist Internal Medicine 07/03/24 [facility] 09/01/24 12/02/24 [facility] 11/09/24 documented as of this encounter
--- OUTSIDE RECORDS SUMMARY | 2025-01-01 11:34 | XMS_ITS | Encounter Summary ---
Author Organization [employer] Address [address] [facility] 7t [place] [address] Care Team Providers Care Uptwister Tender Name Role Phone Bea Lacey MD Primary Care Provider [phone] Mariely Dennison PharmD Unavailable [phone] Cat Dumont CNP Primary Care Provider [phone] Reason for Visit * Reason Comments Med Refill Encounter Details Date Type Department Care Team ([facility] st Contact Info) Description 10/12/2022 Refill [facility] MED & PEDS [address] [place], [place] [phone] Gordon Mills MD [address] [place] [address] Chronic rhinitis Social History Tobacco Use Types [...] 10:30 AM EST Medication Management [facility] MED & PEDS [address] [place] [address] Mariely Dennison PharmD [address] [place] [address] 02/19/2025 2:00 PM EST Office Visit [facility] MED & PEDS [address] [place] [address] Cat Dumont CNP [address] [place] [address] 06/18/2025 1:30 PM EDT Office Visit [facility] ADULT DENTAL [address] [place] [address] Daniele Barlow documented as of this encounter Visit Diagnoses Diagnosis Chronic rhinitis documented in this encounter Additional Health Concerns Assessment Noted Time PHQ-9 Depression Total Score: 7 05/29/19 10:45 AM EDT documented as of this encounter Care Teams Uptwister Tender Relationship Specialty Start Date End Date Bea Lacey MD [address] [place] [address] PCP - General Family Medicine 09/22/22 12/23/24 Cat Dumont CNP [address] [place] [address] PCP - General Family Medicine 12/24/24 Mariely Dennison PharmD [address] [place] [address] Pharmacist Internal Medicine 07/03/24 [facility] 09/01/24 12/02/24 [facility] 11/09/24 documented as of this encounter
--- OUTSIDE RECORDS SUMMARY | 2025-01-01 11:34 | XMS_ITS | Encounter Summary ---
Author Organization [employer] Address [address] [facility] 7t [place] [address] Care Team Providers Care Inspector Aligning Name Role Phone Bea Lacey MD Primary Care Provider [phone] Mariely Dennison PharmD Unavailable [phone] Cat Dumont CNP Primary Care Provider [phone] Reason for Visit * Reason Onset Date Comments Med Refill 10/06/2023 Encounter Details Date Type Department Care Team (Late st Contact Info) Description 10/06/2023 Telephone [facility] MEDICINE [address] [place], [place] [phone] Bea Lacey MD [address] [place], [place] [phone] Med Refill Social History Tobacco Use Types [...] X 4 MM To be sent to: [facility] Pharmacy documented in this encounter Plan of Treatment Upcoming Encounters Date Type Department Care Team (Late st Contact Info) Description 01/08/2025 10:30 AM EST Medication Management [facility] MED & PEDS [address] [place] [address] Mariely Dennison, PharmD [address] [place] [address] 02/19/2025 2:00 PM EST Office Visit [facility] MED & PEDS [address] [place] [address] Cat Dumont CNP [address] [place] [address] 06/18/2025 1:30 PM EDT Office Visit [facility] ADULT DENTAL [address] [place] [address] Daniele Barlow documented as of this encounter Visit Diagnoses Not on filedocumented in this encounter Additional Health Concerns Assessment Noted Time PHQ-9 Depression Total Score: 20 024 10:22 AM EDT documented as of this encounter Care Teams Inspector Aligning Relationship Specialty Start Date End Date Bea Lacey MD [address] [place] [address] PCP - General Family Medicine 09/22/22 12/23/24 Cat Dumont CNP [address] [place] [address] PCP - General Family Medicine 12/24/24 Mariely Dennison PharmD [address] [place] [address] Pharmacist Internal Medicine 07/03/24 [facility] 09/01/24 12/02/24 [facility] 11/09/24 documented as of this encounter
--- OUTSIDE RECORDS SUMMARY | 2025-01-01 11:34 | XMS_ITS | Encounter Summary ---
Author Organization [employer] Address [address] [facility] 7t [place] [address] Care Team Providers Care Supervisor Opening And Picking Name Role Phone Bea Lacey MD Primary Care Provider [phone] Mariely Dennison PharmD Unavailable [phone] Cat Dumont CNP Primary Care Provider [phone] Reason for Visit * Reason Comments Med Refill Encounter Details Date Type Department Care Team ([facility] st Contact Info) Description 12/03/2024 Refill [facility] MED & PEDS [address] [place], [place] [phone] Bea Lacey MD [address] [place] [address] Gastroesophageal reflux disease without esophagitis Social History [...] Description 01/08/2025 10:30 AM EST Medication Management [facility] MED & PEDS [address] [place] [address] Mariely Dennison PharmD [address] [place] [address] 02/19/2025 2:00 PM EST Office Visit [facility] MED & PEDS [address] [place] [address] Cat Duomnt CNP 505 [place] [address] 06/18/2025 1:30 PM EDT Office Visit [facility] ADULT DENTAL [address] [place] [address] Daniele Barlow documented as of this encounter Visit Diagnoses Diagnosis Gastroesophageal reflux disease without esophagitis Esophageal reflux documented in this encounter Additional Health Concerns Assessment Noted Time PHQ-9 Depression Total Score: 9 09/19/19 25 9:36 AM EDT documented as of this encounter Care Teams Supervisor Opening And Picking Relationship Specialty Start Date End Date Bea Lacey MD [address] [place] [address] PCP - General Family Medicine 09/22/22 12/23/24 Cat Dumont CNP [address] [place] [address] PCP - General Family Medicine 12/24/24 Mariely Dennison PharmD [address] [place] [address] Pharmacist Internal Medicine 07/03/24 [facility] 11/09/24 documented as of this encounter
--- OUTSIDE RECORDS SUMMARY | 2025-01-01 11:34 | XMS_ITS | Clinical Summary ---
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 Benign hypertension 12/30/2023 BPH (benign prostatic hyperplasia) 12/30/2023 Bilateral cataracts 12/30/2023 Bilateral tinnitus 12/30/2023 CVA (cerebral vascular accident) ([facility] V24, [facility] [place] V28) 12/30/2023 Heart failure with normal ej ection fraction ([facility] V24, [facility] V28) 12/30/2023 Hyperlipidemia 12/30/2023 History of parathyroidectomy 12/30/2023 CKD (chronic kidney disease) 12/30/2023 Type 2 diabetes mellitus wit h hyperglycemia ([facility] V24, [facility] V28) 12/30/2023 CAD in apache artery 12/30/2023 Erectile dysfunction due to diseases classified elsewhere 12/30/2023 Benign essential tremor 12/30/2023 Encounters Date Type Department Care Team Description 11/11/2024 Lab Requisition [facility] - Main Lab [address] [facility] [address] Lupe Cruz MD Anemia, unspecified; Other disorders of electrolyte and fluid balance, not elsewhere classified 11/04/2024 Lab Requisition [facility] Lab [address] [facility] [address] Lupe Cruz MD Anemia, unspecified; Other disorders of electrolyte and fluid balance, not elsewhere classified 10/30/2024 Lab Requisition [facility] Lab [address] [facility] [place] [address] Lupe Cruz MD Anemia, unspecified; [...] Screening 11/25/2023 Depression Screening 02/22/2024 COVID-19 Vaccine ( season) 2024 11/01/2023, 11/18/2022, [...] K/mcL LAB [facility] 4.80 4.50 - 5.50 M/mcL LAB HEMETOLOGY METHOD 11/05/2024 1:08 PM [facility] Hemoglobin 12.6(L) 13.5 - 17.5 g/dL LAB HEMETOLOGY METHOD 11/05/2024 1:08 PM [facility] Hematocrit 41.3(L) 42.0 - 54.0 % LAB HEMETOLOGY METHOD 11/05/2024 1:08 PM [facility] MCV 85.9 79.0 - 98.0 FL LAB HEMETOLOGY METHOD 11/05/2024 1:08 PM [facility] MCH 26.2(L) 27.0 - 32.0 pcg LAB HEMETOLOGY METHOD 11/05/2024 1:08 PM EDT [facility] MCHC 30.5(L) 32.0 - 37.0 g/dL LAB HEMETOLOGY METHOD 11/05/2024 1:08 PM EDT [facility] RDW 17.2(H) 11.0 - 15.0 % LAB HEMETOLOGY METHOD 11/05/2024 1:08 PM EDT [facility] Platelets 268 130 - 400 K/mcL LAB HEMETOLOGY METHOD 11/05/2024 1:08 PM EDT [facility] MPV 11.3(H) 7.0 - 11.0 FL LAB HEMETOLOGY METHOD 11/05/2024 1:08 PM EDT [facility] NRBC 0.0 <1.0 % [facility] 11/05/2024 1:08 PM EDT [facility] NRBC Absolute 0.00 <0.10 K/mcL LAB HEMETOLOGY METHOD 11/05/2024 1:08 PM EDT [facility] Blood Venous blood specimen / Unknown Venipuncture / Unknown 11/05/2024 6:38 AM EDT 11/05/2024 11:55 AM EDT us Lupe Cruz MD LAB BLOOD ORDERABLES Fin al Result [facility] [address] [place] [address], * (ABNORMAL) Comprehensive metabolic panel (11/05/2024 6:38 AM EDT) Only the most recent of2 resultswithin the time period is included. Sodium 140 133 - 145 mmol/L LAB CHEMISTRY METHOD 11/05/2024 2:08 PM EDT [facility] Potassium 4.1 3.5 - 5.5 mmol/L LAB CHEMISTRY METHOD 11/05/2024 2:08 PM [facility] Chloride 106 96 - 110 mmol/L LAB CHEMISTRY METHOD 11/05/2024 2:08 PM [facility] CO2 29 21 - 32 mmol/L LAB CHEMISTRY METHOD 11/05/2024 2:08 PM [facility] Anion Gap 5 3 - 11 LAB CHEMISTRY METHOD 11/05/2024 2:08 PM [facility] Glucose 124(H) 70 - 100 mg/dL LAB CHEMISTRY METHOD 11/05/2024 2:08 PM [facility] BUN 12 5 - 25 mg/dL LAB CHEMISTRY METHOD 11/05/2024 2:08 PM [facility] Creatinine 0.83 0.70 - 1.30 mg/dL LAB CHEMISTRY METHOD 11/05/2024 2:08 PM [facility] eGFR 93 >=60 mL/min/1. 73m2 LAB CHEMISTRY METHOD 11/05/2024 2:08 PM [facility] Comment:Calculation based on the Chronic Kidney Disease Epidemiology Collaboration (CKD-EPI) equation refit without adjustment for race. BUN/Creatinine Ratio 14.5 LAB CHEMISTRY METHOD 11/05/2024 2:08 PM [facility] Calcium 8.5 8.5 - 10.5 mg/dL LAB CHEMISTRY METHOD 11/05/2024 2:08 PM [facility] AST (SGOT) 21 10 - 42 unit/L LAB CHEMISTRY METHOD 11/05/2024 2:08 PM [facility] ALT (SGPT) 24 10 - 60 unit/L LAB CHEMISTRY METHOD 11/05/2024 2:08 PM [facility] Alkaline Phosphatase 124(H) 42 - 121 unit/L LAB CHEMISTRY METHOD 11/05/2024 2:08 PM [facility] Total Protein 6.0 6.0 - 8.0 g/dL LAB CHEMISTRY METHOD 11/05/2024 2:08 PM EDT [facility] Albumin 3.1(L) 3.2 - 5.0 g/dL LAB CHEMISTRY METHOD 11/05/2024 2:08 PM EDT [facility] Total Bilirubin 0.4 0.0 - 1.4 mg/dL LAB CHEMISTRY METHOD 11/05/2024 2:08 PM EDT [facility] Blood Venous blood specimen / Unknown Venipuncture / Unknown 11/05/2024 6:38 AM EDT 11/05/2024 11:53 AM EDT us Lupe Cruz MD LAB BLOOD ORDERABLES Fin al Result [facility] [address] [place] [address], [place] [phone] from Last 3 Months Insurance MEDICARE MEDICAID - [place] Care Teams Per Diem Clerk Relationship Specialty Start Date End Date Bea Lacey MD [address] [place] [phone] [facility] - General 04/04/23
--- OUTSIDE RECORDS SUMMARY | 2025-01-01 11:34 | XMS_ITS | Encounter Summary ---
Author Organization [facility] Address [address] [place] [address] Care Team Providers Care Supervisor Sintering Plant Name Role Phone Bea Lacey MD Primary Care Provider [phone] Encounter Details Date Type Department Care Team (Late st Contact Info) Description 11/04/[address] [facility] - Main Lab [address] [place] [address] Lupe Cruz MD [address] [id number] Anemia, unspecified; Other disorders of electrolyte and [...] METHOD 11/05/2024 2:08 PM EDT [facility] Potassium 4.1 3.5 - 5.5 mmol/L LAB CHEMISTRY METHOD 11/05/2024 2:08 PM [facility] Chloride 106 96 - 110 mmol/L LAB CHEMISTRY METHOD 11/05/2024 2:08 PM [facility] CO2 29 21 - 32 mmol/L LAB CHEMISTRY METHOD 11/05/2024 2:08 PM [facility] Anion Gap 5 3 - 11 LAB CHEMISTRY METHOD 11/05/2024 2:08 PM [facility] Glucose 124(H) 70 - 100 mg/dL LAB CHEMISTRY METHOD 11/05/2024 2:08 PM [facility] BUN 12 5 - 25 mg/dL LAB CHEMISTRY METHOD 11/05/2024 2:08 PM [facility] Creatinine 0.83 0.70 - 1.30 mg/dL LAB CHEMISTRY METHOD 11/05/2024 2:08 PM [facility] eGFR 93 >=60 mL/min/1. 73m2 LAB CHEMISTRY METHOD 11/05/2024 2:08 PM [facility] Comment:Calculation based on the Chronic Kidney Disease Epidemiology Collaboration (CKD-EPI) equation refit without adjustment for race. BUN/Creatinine Ratio 14.5 LAB CHEMISTRY METHOD 11/05/2024 2:08 PM [facility] Calcium 8.5 8.5 - 10.5 mg/dL LAB CHEMISTRY METHOD 11/05/2024 2:08 PM [facility] AST (SGOT) 21 10 - 42 unit/L LAB CHEMISTRY METHOD 11/05/2024 2:08 PM [facility] ALT (SGPT) 24 10 - 60 unit/L LAB CHEMISTRY METHOD 11/05/2024 2:08 PM [facility] Alkaline Phosphatase 124(H) 42 - 121 unit/L LAB CHEMISTRY METHOD 11/05/2024 2:08 PM [facility] Total Protein 6.0 6.0 - 8.0 g/dL LAB CHEMISTRY METHOD 11/05/2024 2:08 PM EDT [facility] Albumin 3.1(L) 3.2 - 5.0 g/dL LAB CHEMISTRY METHOD 11/05/2024 2:08 PM EDT [facility] Total Bilirubin 0.4 0.0 - 1.4 mg/dL LAB CHEMISTRY METHOD 11/05/2024 2:08 PM EDT [facility] Blood Venous blood specimen / Unknown Venipuncture / Unknown 11/05/2024 6:38 AM EDT 11/05/2024 11:53 AM EDT us Lupe Cruz MD LAB BLOOD ORDERABLES Fin al Result [facility] [address] [place] [address], * (ABNORMAL) Complete blood count (11/05/2024 6:38 AM EDT) WBC 4.6(L) 4.8 - 10.8 K/mcL LAB HEMETOLOGY [facility] RBC 4.80 4.50 - 5.50 M/mcL LAB HEMETOLOGY METHOD 11/05/2024 1:08 PM [facility] Hemoglobin 12.6(L) 13.5 - 17.5 g/dL LAB HEMETOLOGY METHOD 11/05/2024 1:08 PM EDT [facility] Hematocrit 41.3(L) 42.0 - 54.0 % LAB HEMETOLOGY METHOD 11/05/2024 1:08 PM EDT [facility] MCV 85.9 79.0 - 98.0 FL LAB HEMETOLOGY METHOD 11/05/2024 1:08 PM [facility] MCH 26.2(L) 27.0 - 32.0 pcg LAB HEMETOLOGY METHOD 11/05/2024 1:08 PM EDT [facility] MCHC 30.5(L) 32.0 - 37.0 g/dL LAB HEMETOLOGY METHOD 11/05/2024 1:08 PM EDT [facility] RDW 17.2(H) 11.0 - 15.0 % LAB HEMETOLOGY METHOD 11/05/2024 1:08 PM EDT [facility] Platelets 268 130 - 400 K/mcL LAB HEMETOLOGY METHOD 11/05/2024 1:08 PM EDT [facility] MPV 11.3(H) 7.0 - 11.0 FL LAB HEMETOLOGY METHOD 11/05/2024 1:08 PM EDT [facility] NRBC 0.0 <1.0 % LAB HEMETOLOGY METHOD 11/05/2024 1:08 PM EDT [facility] NRBC Absolute 0.00 <0.10 K/mcL LAB HEMETOLOGY METHOD 11/05/2024 1:08 PM EDT [facility] Blood Venous blood specimen / Unknown Venipuncture / Unknown 11/05/2024 6:38 AM EDT 11/05/2024 11:55 AM EDT us Lupe Cruz MD LAB BLOOD ORDERABLES Fin al Result [facility] [address] [place] [address], [place] [phone] documented in this encounter Visit Diagnoses Diagnosis Anemia, unspecified Other disorders of electrolyte and fluid balance, not elsewhere classified documented in this encounter Care Teams Supervisor Sintering Plant Relationship Specialty Start Date End Date Bea Lacey MD [address] [place] [address] PCP - General 04/04/23 documented as of this encounter
--- OUTSIDE RECORDS SUMMARY | 2025-01-01 11:34 | XMS_ITS | Encounter Summary ---
Author Organization [employer] Address [address] [facility] 7t [place] [address] Care Team Providers Care Hydrate Control Tender Name Role Phone Bea Lacey MD Primary Care Provider [phone] Mariely Dennison PharmD Unavailable [phone] Cat Dumont CNP Primary Care Provider [phone] Reason for Visit * Reason Comments Med Refill Encounter Details Date Type Department Care Team ([facility] Contact Info) Description 10/11/2022 Refill [facility] MED & PEDS [address] [place] [address] Bea Lacey MD [address] [place] [address] Chronic rhinitis Social History Tobacco Use Types [...] Department Care Team (Late Contact Info) Description 01/08/2025 10:30 AM EST Medication Management [facility] MED & PEDS [address] [place] [address] Mariely Dennison PharmD [address] [place] [address] 02/19/2025 2:00 PM EST Office Visit [facility] MED & PEDS [address] [place] [address] Cat Dumont CNP [address] [place] [address] 06/18/2025 1:30 PM EDT Office Visit [facility] ADULT DENTAL [address] [place] [address] Daniele Barlow documented as of this encounter Visit Diagnoses Diagnosis Chronic rhinitis documented in this encounter Additional Health Concerns Assessment Noted Time PHQ-9 Depression Total Score: 7 05/29/19 23 10:45 AM EDT documented as of this encounter Care Teams Hydrate Control Tender Relationship Specialty Start Date End Date Bea Lacey MD [address] [place] [address] PCP - General Family Medicine 09/22/22 12/23/24 Cat Dumont CNP [address] [place] [address] PCP - General Family Medicine 12/24/24 Mariely Dennison PharmD [address] [place] [address] Pharmacist Internal Medicine 07/03/24 [facility] 09/01/24 12/02/24 [facility] 11/09/24 documented as of this encounter
--- OUTSIDE RECORDS SUMMARY | 2025-01-01 11:34 | XMS_ITS | Encounter Summary ---
Author Organization [employer] Address [address] [facility] 7t [place] [address] Care Team Providers Care Sales Recruiting Coordinator Name Role Phone Bea Lacey MD Primary Care Provider [phone] Mariely Dennison PharmD Unavailable [phone] Cat Dumont CNP Primary Care Provider [phone] Reason for Visit * Reason Onset Date Comments Nurse Triage 11/08/2023 Encounter Details Date Type Department Care Team ([facility] st Contact Info) Description 11/08/2023 Telephone [facility] MED & PEDS [address] [place], [place] [phone] Bea Lacey MD 505 [place] [address] Nurse Triage Social History Tobacco Use Types [...] accepted this outcome. Please contact pt at [phone] documented in this encounter Plan of Treatment Upcoming Encounters Date Type Department Care Team ([facility] Contact Info) Description 01/08/2025 10:30 AM EST Medication Management [facility] MED & PEDS [address] [place] [address] Mariely Dennison, PharmD [address] [place] [address] 02/19/2025 2:00 PM EST Office Visit [facility] MED & PEDS [address] [place], [place] [phone] Cat Dumont, CARDROOM ATTENDANT [address] [place] [address] 06/18/2025 1:30 PM EDT Office Visit [facility] ADULT DENTAL [address] [place] [address] Daniele Barlow documented as of this encounter Visit Diagnoses Not on filedocumented in this encounter Additional Health Concerns Assessment Noted Time PHQ-9 Depression Total Score: 20 024 10:22 AM EDT documented as of this encounter Care Teams Sales Recruiting Coordinator Relationship Specialty Start Date End Date Bea Lacey MD [address] [place] [address] PCP - General Family Medicine 09/22/22 12/23/24 Cat Dumont CNP [address] [place] [address] PCP - General Family Medicine 12/24/24 Mariely Dennison PharmD [address] [place] [address] Pharmacist Internal Medicine 07/03/24 [facility] 09/01/24 12/02/24 [facility] 11/09/24 documented as of this encounter
--- OUTSIDE RECORDS SUMMARY | 2025-01-01 11:34 | XMS_ITS | Encounter Summary ---
Author Organization [employer] Address 75 [facility] 7t [place] [address] Care Team Providers Care Security Architect Name Role Phone Bea Lacey MD Primary Care Provider [phone] Mariely Dennison PharmD Unavailable [phone] Cat Dumont CNP Primary Care Provider [phone] Reason for Visit * Reason Onset Date Comments Med reconciliation 10/08/2024 Encounter Details Date Type Department Care Team ([facility] Contact Info) Description 10/08/2024 Telephone C [facility] MED & PEDS [address] [place], [place] [phone] Bea Lacey MD 505 [place] [address] Med reconciliation Social History Tobacco Use Types [...] housing situation today? I have zoeadelaide abreu 09/11/[address] you [...] 3:26 PM EDT Tc from Marcy with [facility] requesting a call back for medication reconciliation andto discuss pain medication. Contact Marcy [phone] documented in this encounter Plan of Treatment Upcoming Encounters Date Type Department Care Team (Late st Contact Info) Description 01/08/2025 10:30 AM EST Medication Management [facility] MED & PEDS [address] [place] [address] Mariely Dennison, PharmD [address] [place] [address] 02/19/2025 2:00 PM EST Office Visit [facility] MED & PEDS [address] [place] [address] Cat Dumont, LIME PLANT OPERATOR [address] [place] [address] 06/18/2025 1:30 PM EDT Office Visit [facility] ADULT DENTAL [address] [place] [address] Daniele Barlow documented as of this encounter Visit Diagnoses Not on filedocumented in this encounter Additional Health Concerns Assessment Noted Time PHQ-9 Depression Total Score: 9 09/19/19 25 9:36 AM EDT documented as of this encounter Care Teams Security Architect Relationship Specialty Start Date End Date Bea Lacey MD [address] [place] [address] PCP - General Family Medicine 09/22/22 12/23/24 Cat Dumont CNP [address] [place] [address] PCP - General Family Medicine 12/24/24 Mariely Dennison PharmD [address] [place] [address] Pharmacist Internal Medicine 07/03/24 [facility] 09/01/24 12/02/24 [facility] 11/09/24 documented as of this encounter
--- OUTSIDE RECORDS SUMMARY | 2025-01-01 11:34 | XMS_ITS | Encounter Summary ---
Author Organization [employer] Address 75 [facility] 7t [place] [address] Care Team Providers Care Mold Yard Crane Operator Name Role Phone Bea Lacey MD Primary Care Provider [phone] Mariely Dennison PharmD Unavailable [phone] Cat Dumont CNP Primary Care Provider [phone] Reason for Visit * Reason Onset Date Comments Medication Question 06/10/2023 Encounter Details Date Type Department Care Team ([facility] Contact Info) Description 06/10/2023 Telephone [facility] MED & PEDS [address] [place], [place] [phone] Bea Lacey MD [address] [place], [place] [phone] Medication Question Social History Tobacco Use Types [...] 01/08/2025 10:30 AM EST Medication Management [facility] MED & PEDS [address] [place] [address] Mariely Dennison PharmD [address] [place] [address] 02/19/2025 2:00 PM EST Office Visit [facility] MED & PEDS [address] [place] [address] Cat Dumont CNP 505 [place] [address] 06/18/2025 1:30 PM EDT Office Visit [facility] ADULT DENTAL [address] [place] [address] Daniele Barlow documented as of this encounter Visit Diagnoses Not on filedocumented in this encounter Additional Health Concerns Assessment Noted Time PHQ-9 Depression Total Score: 20 024 10:22 AM EDT documented as of this encounter Care Teams Mold Yard Crane Operator Relationship Specialty Start Date End Date Bea Lacey MD [address] [place] [address] PCP - General Family Medicine 09/22/22 12/23/24 Cat Dumont CNP [address] [place] [address] PCP - General Family Medicine 12/24/24 Mariely Dennison PharmD [address] [place] [address] Pharmacist Internal Medicine 07/03/24 [facility] 09/01/24 12/02/24 [facility] 11/09/24 documented as of this encounter
--- OUTSIDE RECORDS SUMMARY | 2025-01-01 11:34 | XMS_ITS | Encounter Summary ---
Author Organization [employer] Address 75 [facility] 7t [place] [address] Care Team Providers Care [employer] Name Role Phone Bea Lacey MD Primary Care Provider [phone] Mariely Dennison PharmD Unavailable [phone] Cat Dumont CNP Primary Care Provider [phone] Reason for Visit * Reason Onset Date Comments Glucose Monetor 10/08/2022 Encounter Details Date Type Department Care Team ([facility] st Contact Info) Description 10/08/2022 Telephone C [facility] MED & PEDS [address] [place] [address] Bea Lacey MD [address] [place] [address] Glucose Monetor Social History Tobacco Use Types [...] call to patient who is requesting a Freestyle Verito two Sensor. Pt states it will make it easier for him due to difficulty pinching. Pt would like it to be sent to [facility], pt provided number . Patient also stated that he wants a prescription for pseudoephedrine fornasal congestion and runny nose. This message will be forwarded to provider. * Telephone Encounter - [facility] Mckinnon Dustin - 10/08/2022 8:21 AM EDT Tc from pt requesting a Freestyle Verito two Sensor. Pt states it will make it easier for him due todifficulty pinching. Pt would like it to be sent to [facility], pt provided number Please contact pt at [phone] documented in this encounter Plan of Treatment Upcoming Encounters Date Type Department Care Team (Late st Contact Info) Description 01/08/2025 10:30 AM EST Medication Management [facility] MED & PEDS [address] [place] [address] Mariely Dennison, PharmD [address] [place] [address] 02/19/2025 2:00 PM EST Office Visit [facility] MED & PEDS [address] [place] [address] Cat Dumont, PERSONALIZED LIVING ASSISTANT [address] [place] [address] 06/18/2025 1:30 PM EDT Office Visit [facility] ADULT DENTAL [address] [place] [address] Daniele Barlow documented as of this encounter Visit Diagnoses Not on filedocumented in this encounter Additional Health Concerns Assessment Noted Time PHQ-9 Depression Total Score: 7 05/29/19 23 10:45 AM EDT documented as of this encounter Care Teams Teacher [employer] Relationship Specialty Start Date End Date Bea Lacey MD [address] [place] [address] PCP - General Family Medicine 09/22/22 12/23/24 Cat Dumont CNP [address] [place] [address] PCP - General Family Medicine 12/24/24 Mariely Dennison PharmD [address] [place] [address] Pharmacist Internal Medicine 07/03/24 [facility] 09/01/24 12/02/24 [facility] 11/09/24 documented as of this encounter
--- OUTSIDE RECORDS SUMMARY | 2025-01-01 11:34 | XMS_ITS | Encounter Summary ---
Author Organization [facility] Address [address] [place] [address] Care Team Providers Care Fisher Trap Name Role Phone Bea Lacey MD Primary Care Provider [phone] Encounter Details Date Type Department Care Team (Late st Contact Info) Description 11/11/2024 Lab Requisition [facility] - Main Lab [address] [facility] [place] [address] Lupe Cruz MD [address] [phone] Anemia, unspecified; Other disorders of electrolyte and [...] classified documented in this encounter Care Teams Fisher Trap Relationship Specialty Start Date End Date Bea Lacey MD [address] [place] [address] PCP - General 04/04/23 documented as of this encounter
--- OUTSIDE RECORDS SUMMARY | 2025-01-01 11:34 | XMS_ITS | Encounter Summary ---
Author Organization [employer] Address [address] [facility] [address] 7t [place] [address] Care Team Providers Care Web Systems Developer Name Role Phone Bea Lacey MD Primary Care Provider [phone] Mariely Dennison PharmD Unavailable [phone] Cat Dumont CNP Primary Care Provider [phone] Encounter Details Date Type Department Care Team (Late st Contact Info) Description 06/07/2023 Orders Only [facility] MEDICINE [address] [place], [place] [phone] ProviderTia MD Social History Tobacco Use Types [...] Description 01/08/2025 10:30 AM EST Medication Management [facility] MED & PEDS [address] [place] [address] Mariely Dennison PharmD [address] [place] [address] 02/19/2025 2:00 PM EST Office Visit [facility] MED & PEDS [address] [place], [place] [phone] Cat Dumont, CONCRETE BLOCK LAYER 505 [place], [place] [phone] 06/18/2025 1:30 PM EDT Office Visit [facility] ADULT DENTAL [address] [place] [address] Daniele Barlow documented as of this encounter [...] documented as of this encounter Care Teams Web Systems Developer Relationship Specialty Start Date End Date Bea Lacey MD [address] [place] [address] PCP - General Family Medicine 09/22/22 12/23/24 Cat Dumont CNP 505 [facility] [place] [address] PCP - General Family Medicine 12/24/24 Mariely Dennison PharmD [address] [place] [address] Pharmacist Internal Medicine 07/03/24 [facility] 09/01/24 12/02/24 [facility] 11/09/24 documented as of this encounter
--- OUTSIDE RECORDS SUMMARY | 2025-01-01 11:34 | XMS_ITS | Clinical Summary ---
Author Organization [facility] Address [address] [place] [address] Care Team Providers Care Indigo Vat Tender Cloth Name Role Phone Bea Lacey Primary Care Provider [phone] Allergies No known active allergies Medications buPROPion [...] I'd recommend he obtain clearance from his operations and maintenance technican given his history of multiple coronary events. I would also want to seek further clarification from his neurosurgeon as to what other clearance is being sought from the neurologist's standpoint. I will be reaching out to Dr. Payan's office. CAD in [place] artery 01/28/2022 Overview (12/30/2023): CABG with multiple [...] Screening 02/22/2024 Depression Screening and Follow-Up 02/22/2024 Fall Risk Screening 02/22/2024 Health Care Proxy Review 02/22/2024 Social [...] 10/26/2018, 04/26/2012, Additional history exists Insurance MEDICARE [facility] Care Teams Indigo Vat Tender Cloth Relationship Specialty Start Date End Date Bea Lacey [address] [place] [address] [place] [address] PCP - General Family Medicine 12/26/23
--- OUTSIDE RECORDS SUMMARY | 2025-01-01 11:34 | XMS_ITS | Encounter Summary ---
Author Organization [employer] Address [address] [facility] 7t [place] [address] Care Team Providers Care Contracts Analyst Name Role Phone Bea Lacey MD Primary Care Provider [phone] Mariely Dennison PharmD Unavailable [phone] Cat Dumont CNP Primary Care Provider [phone] Reason for Visit * Reason Onset Date Comments Medication Question 06/20/2023 Encounter Details Date Type Department Care Team ([facility] st Contact Info) Description 06/20/2023 Telephone [facility] MEDICINE [address] [place], [place] [phone] Bea Lacey MD [address] [place], [place] [phone] Medication Question Social History Tobacco Use Types [...] your housing situation today? I have zoe lois 12/08/[address] you li [...] Description 01/08/2025 10:30 AM EST Medication Management [facility] MED & PEDS [address] [place] [address] Mariely Dennison PharmD [address] [place] [address] 02/19/2025 2:00 PM EST Office Visit [facility] MED & PEDS [address] [place] [address] Cat Dumont CNP 505 [place] [address] 06/18/2025 1:30 PM EDT Office Visit [facility] CHC ADULT DENTAL [address] [place] [address] Daniele Barlow documented as of this encounter Visit Diagnoses Not on filedocumented in this encounter Additional Health Concerns Assessment Noted Time PHQ-9 Depression Total Score: 20 024 10:22 AM EDT documented as of this encounter Care Teams Contracts Analyst Relationship Specialty Start Date End Date Bea Lacey MD [address] [place] [address] PCP - General Family Medicine 09/22/22 12/23/24 Cat Dumont CNP [address] [place] [address] PCP - General Family Medicine 12/24/24 Mariely Dennison PharmD [address] [place] [address] Pharmacist Internal Medicine 07/03/24 [facility] 09/01/24 12/02/24 [facility] 11/09/24 documented as of this encounter
--- OUTSIDE RECORDS SUMMARY | 2025-01-01 11:34 | XMS_ITS | Encounter Summary ---
Author Organization [employer] Address [address] [facility] 7t [place] [address] Care Team Providers Care Branch Coordinator Name Role Phone DennisonJoanna bustilloscia PharmD Unavailable [phone] Cat Dumont CNP Primary Care Provider [phone] Reason for Visit * Reason Comments Med Refill Encounter Details Date Type Department Care Team ([facility] st Contact Info) Description 12/28/2024 Refill [facility] CHC MED & PEDS [address] [place], [place] [phone] Bea Lacey MD [address] [place], [place] [phone] Gastroesophageal reflux disease without esophagitis; Chronic idiopathic constipation Social History Tobacco Use [...] 10:30 AM EST Medication Management [facility] MED & PEDS [address] [place] [address] Mariely Dennison, PharmD [address] [place] [address] 02/19/2025 2:00 PM EST Office Visit [facility] MED & PEDS [address] [place] [address] Cat Dumont CNP 505 [place] [address] 06/18/2025 1:30 PM EDT Office Visit [facility] ADULT DENTAL [address] [place] [address] Daniele Barlow documented as of this encounter Visit Diagnoses Diagnosis Gastroesophageal reflux disease without esophagitis Esophageal reflux Chronic idiopathic constipation Unspecified constipation documented in this encounter Additional Health Concerns Assessment Noted Time PHQ-9 Depression Total Score: 9 09/19/19 25 9:36 AM EDT documented as of this encounter Care Teams Branch Coordinator Relationship Specialty Start Date End Date Cat Dumont CNP [address] [place] [address] PCP - General Family Medicine 12/24/24 Mariely Dennison PharmD [address] [place] [address] Pharmacist Internal Medicine 07/03/24 [facility] 11/09/24 documented as of this encounter
--- OUTSIDE RECORDS SUMMARY | 2025-01-01 11:34 | XMS_ITS | Encounter Summary ---
Author Organization [employer] Address 75 [facility] 7t [place] [address] Care Team Providers Care Call Out Clerk Name Role Phone Bea Lacey MD Primary Care Provider [phone] Mariely Dennison PharmD Unavailable [phone] Cat Dumont CNP Primary Care Provider [phone] Encounter Details Date Type Department Care Team (Late st Contact Info) Description 07/14/2023 Orders Only [facility] CHC MED & PEDS [address] [place], [place] [phone] ProviderTia MD Social History Tobacco Use Types [...] Description 01/08/2025 10:30 AM EST Medication Management [facility] MED & PEDS 505 [place] [address] Mariely Dennison, PharmD [address] [place], [place] [phone] 02/19/2025 2:00 PM EST Office Visit [facility] MED & PEDS 505 [place] [address] Cat Dumont, AIR SAW OPERATOR 505 [place] [address] 06/18/2025 1:30 PM EDT Office Visit [facility] ADULT DENTAL 505 [place] [address] Daniele Barlow documented as of this encounter [...] documented as of this encounter Care Teams Call Out Clerk Relationship Specialty Start Date End Date Bea Lacey MD 230 [place] [address] PCP - General Family Medicine 09/22/22 12/23/24 Cat Dumont CNP 505 [place] [address] PCP - General Family Medicine 12/24/24 Mariely Dennison PharmD 230 [place] [address] Pharmacist Internal Medicine 07/03/24 [facility] 09/01/24 12/02/24 [facility] 11/09/24 documented as of this encounter
--- OUTSIDE RECORDS SUMMARY | 2025-01-01 11:34 | XMS_ITS | Encounter Summary ---
Author Organization [employer] Address 75 [facility] 7t [place] [address] Care Team Providers Care Information Technology Data Analyst Name Role Phone Juma Mariely PharmD Unavailable [phone] Cat Dumont CNP Primary Care Provider [phone] Reason for Visit * Reason Onset Date Comments Call Back Request 12/26/2024 Encounter Details Date Type Department Care Team ([facility] st Contact Info) Description 12/26/2024 Telephone [facility] CHC MED & PEDS 505 [place], [place] [phone] Cat Dumont CNP [address] [place], [place] [phone] Call Back Request Social History Tobacco Use Types Packs/Day Years [...] encounter Miscellaneous Notes * Telephone Encounter - Zachary Lopez - 12/26/2024 10:39 AM EST Tc from pt requesting to speak with provider stating there has been a mistake with medications Contact pt at [phone] documented in this encounter Plan of Treatment Upcoming Encounters Date Type Department Care Team ([facility] st Contact Info) Description 01/08/2025 10:30 AM EST Medication Management [facility] MED & PEDS 505 [place] [address] Mariely Dennison, PharmD 230 [place] [address] 02/19/2025 2:00 PM EST Office Visit [facility] MED & PEDS [address] [place] [address] Cat Dumont CNP [address] [place] [address] 06/18/2025 1:30 PM EDT Office Visit [facility] ADULT DENTAL 505 [place] [address] Daniele Barlow documented as of this encounter Visit Diagnoses Not on filedocumented in this encounter Additional Health Concerns Assessment Noted Time PHQ-9 Depression Total Score: 9 09/19/19 25 9:36 AM EDT documented as of this encounter Care Teams Information Technology Data Analyst Relationship Specialty Start Date End Date Cat Dumont CNP [address] [place] [address] PCP - General Family Medicine 12/24/24 Mariely Dennison PharmD [address] [place] [address] Pharmacist Internal Medicine 07/03/24 [facility] 11/09/24 documented as of this encounter
--- OUTSIDE RECORDS SUMMARY | 2025-01-01 11:34 | XMS_ITS | Encounter Summary ---
Author Organization [employer] Address 75 [facility] 7t [place] [address] Care Team Providers Care Banquet Set Up Person Name Role Phone Gordon Mills MD Primary Care Prov ider Bea Lacey MD Primary Care Provider [phone] Mariely Dennison PharmD Unavailable [phone] Cat Dumont CNP Primary Care Provider [phone] Encounter Details Date Type Department Care Team (Latest Contact Info) Description 08/14/2020 Abstract [facility] CONVERSIONS Dental, Provider, DDS Social History [facility] [address] [place] [address] Mariely Dennison, PharmD 230 [place] [address] 02/19/2025 2:00 PM EST Office Visit [facility] MED & PEDS 505 [place] [address] Cat Dumont CNP 505 [place] [address] 06/18/2025 1:30 PM EDT Office Visit [facility] CHC ADULT DENTAL 505 [place] [address] Daniele Barlow documented as of this encounter Visit Diagnoses Not on filedocumented in this encounter Care Teams Banquet Set Up Person Relationship Specialty Start Date End Date Gordon Mills MD 505 [place] [address] PCP - General Internal Medicine 07/12/19 09/21/22 Bea Lacey MD 230 [place] [address] PCP - General Family Medicine 09/22/22 12/23/24 Cat Dumont CNP 505 [place] [address] PCP - General Family Medicine 12/24/24 Mariely Dennison PharmD 230 [place] [address] Pharmacist Internal Medicine 07/03/24 [facility] 09/01/24 12/02/24 [facility] 11/09/24 documented as of this encounter
--- OUTSIDE RECORDS SUMMARY | 2025-01-01 11:34 | XMS_ITS | Encounter Summary ---
Author Organization [employer] Address 75 [facility] 7t [place] [address] Care Team Providers Care Derrick Boat Runner Name Role Phone Mariely Dennison PharmD Unavailable [phone] Cat Dumont CNP Primary Care Provider [phone] Encounter Details Date Type Department Care Team (Late st Contact Info) Description 12/31/2024 Telephone [facility] MEDICINE 230 [place], [place] [phone] Cat Dumont CNP [address] [place], [place] [phone] Social History Tobacco Use Types Packs/Day Years [...] encounter Miscellaneous Notes * Telephone Encounter - Amber Hall - 12/31/2024 3:39 PM EST A new referral is needed for this patient to continue care in [facility] - Diabetes clinic. Please send at your earliest convenience. documented in this encounter Plan of Treatment Upcoming Encounters Date Type Department Care Team (Late st Contact Info) Description 01/08/2025 10:30 AM EST Medication Management [facility] MED & PEDS 505 [place] [address] Mariely Dennison, PharmD 230 [place] [address] 02/19/2025 2:00 PM EST Office Visit [facility] MED & PEDS [address] [place] [address] Cat Dumont CNP 505 [place] [address] 06/18/2025 1:30 PM EDT Office Visit [facility] ADULT DENTAL [address] [place] [address] Daniele Barlow documented as of this encounter Visit Diagnoses Not on filedocumented in this encounter Additional Health Concerns Assessment Noted Time PHQ-9 Depression Total Score: 9 09/19/19 25 9:36 AM EDT documented as of this encounter Care Teams Derrick Boat Runner Relationship Specialty Start Date End Date Cat Dumont CNP 505 [place] [address] PCP - General Family Medicine 12/24/24 Mariely Dennison PharmD [address] [place] [address] Pharmacist Internal Medicine 07/03/24 [facility] 11/09/24 documented as of this encounter
--- OUTSIDE RECORDS SUMMARY | 2025-01-01 11:34 | XMS_ITS | Encounter Summary ---
Author Organization [employer] Address [address] [facility] 7t [place] [address] Care Team Providers Care Denier Control Operator Name Role Phone Bea Lacey MD Primary Care Provider [phone] Mariely Dennison PharmD Unavailable [phone] Cat Dumont CNP Primary Care Provider [phone] Reason for Visit * Reason Onset Date Comments FYI 08/30/2024 Encounter Details Date Type Department Care Team (Late st Contact Info) Description 08/30/2024 Telephone [facility] MEDICINE 230 [place], [place] [phone] Bea Lacey MD [address] [place], [place] [phone] FYI Social History Tobacco Use Types Packs/Day Years [...] - 08/30/2024 12:38 PM EDT Tc from [place] with [facility] calling to inform pcp that pt has been referred to their services for at home PT and will be starting care on 08/31. documented in this encounter Plan of Treatment Upcoming Encounters Date Type Department Care Team (Late st Contact Info) Description 01/08/2025 10:30 AM EST Medication Management [facility] MED & PEDS 505 [place] [address] Mariely Dennison, PharmD 230 [place] [address] 02/19/2025 2:00 PM EST Office Visit [facility] MED & PEDS 505 [place] [address] Cat Dumont, NURSE PRACTITIONER HOME ASSESSMENTS 505 [place] [address] 06/18/2025 1:30 PM EDT Office Visit [facility] CHC ADULT DENTAL 505 [place] [address] Daniele Barlow documented as of this encounter Visit Diagnoses Not on filedocumented in this encounter Additional Health Concerns Assessment Noted Time PHQ-9 Depression Total Score: 20 024 10:22 AM EDT documented as of this encounter Care Teams Denier Control Operator Relationship Specialty Start Date End Date Bea Lacey MD [address] [place] [address] PCP - General Family Medicine 09/22/22 12/23/24 Cat Dumont CNP 505 [place] [address] PCP - General Family Medicine 12/24/24 Mariely Dennison PharmD [address] [place] [address] Pharmacist Internal Medicine 07/03/24 [facility] 09/01/24 12/02/24 [facility] 11/09/24 documented as of this encounter
--- OUTSIDE RECORDS SUMMARY | 2025-01-01 11:34 | XMS_ITS | Encounter Summary ---
Author Organization [employer] Address 75 [facility] 7t [place] [address] Care Team Providers Care Lug Breaker And Wire Puller Name Role Phone Bea Lacey MD Primary Care Provider [phone] Mariely Dennison PharmD Unavailable [phone] Cat Dumont CNP Primary Care Provider [phone] Reason for Visit * Reason Comments Med Refill Encounter Details Date Type Department Care Team ([facility] st Contact Info) Description 11/27/2024 Refill [facility] CHC MED & PEDS 505 [place], [place] [phone] Bea Lacey MD 505 [place] [address] Gastroesophageal reflux disease without esophagitis; Essential tremor [...] 10:30 AM EST Medication Management [facility] MED & PEDS [address] [place] [address] Mariely Dennison PharmD 230 [place] [address] 02/19/2025 2:00 PM EST Office Visit [facility] MED & PEDS [address] [place] [address] Cat Dumont CNP 505 [place] [address] 06/18/2025 1:30 PM EDT Office Visit [facility] ADULT DENTAL 505 [place] [address] Daniele Barlow documented as of this encounter Visit Diagnoses Diagnosis Gastroesophageal reflux disease without esophagitis Esophageal reflux Essential tremor documented in this encounter Additional Health Concerns Assessment Noted Time PHQ-9 Depression Total Score: 9 09/19/19 25 9:36 AM EDT documented as of this encounter Care Teams Lug Breaker And Wire Puller Relationship Specialty Start Date End Date Bea Lacey MD [address] [place] [address] PCP - General Family Medicine 09/22/22 12/23/24 Cat Dumont CNP 505 [place] [address] PCP - General Family Medicine 12/24/24 Mariely Dennison PharmD 230 [place] [address] Pharmacist Internal Medicine 07/03/24 [facility] 09/01/24 12/02/24 [facility] 11/09/24 documented as of this encounter
--- OUTSIDE RECORDS SUMMARY | 2025-01-01 11:35 | XMS_ITS | Encounter Summary ---
Author Organization [employer] Address 75 [facility] 7t [place] [address] Care Team Providers Care Emg Technician Name Role Phone Bea Lacey MD Primary Care Provider [phone] Mariely Dennison PharmD Unavailable [phone] Cat Dumont CNP Primary Care Provider [phone] Reason for Visit * Reason Comments Med Refill Encounter Details Date Type Department Care Team ([facility] Contact Info) Description 03/16/2024 Refill [facility] CHC MED & PEDS [address] [place], [place] [phone] Bea Lacey MD 505 [place] [address] Social History Tobacco Use Types Packs/Day Years [...] [facility] MED & PEDS [address] [place] [address] Mariely Dennison, PharmD 230 [place] [address] 02/19/2025 2:00 PM EST Office Visit [facility] MED & PEDS [address] [place] [address] Cat Dumont CNP 505 [place] [address] 06/18/2025 1:30 PM EDT Office Visit [facility] ADULT DENTAL [address] [place] [address] Daniele Barlow documented as of this encounter Visit Diagnoses Not on filedocumented in this encounter Additional Health Concerns Assessment Noted Time PHQ-9 Depression Total Score: 20 024 10:22 AM EDT documented as of this encounter Care Teams Emg Technician Relationship Specialty Start Date End Date Bea Lacey MD 230 [place] [address] PCP - General Family Medicine 09/22/22 12/23/24 Cat Dumont CNP [address] [place] [address] PCP - General Family Medicine 12/24/24 Mariely Dennison PharmD [address] [place] [address] Pharmacist Internal Medicine 07[facility]03[facility]/02[facility]24 [facility] 11/09/24 documented as of this encounter
--- OUTSIDE RECORDS SUMMARY | 2025-01-01 11:35 | XMS_ITS | Encounter Summary ---
Author Organization [employer] Address 75 [facility] 7t [place] [address] Care Team Providers Care Computer Systems Analyst Name Role Phone Bea Lacey MD Primary Care Provider [phone] Mariely Dennison PharmD Unavailable [phone] Cat Dumont CNP Primary Care Provider [phone] Reason for Visit * Reason Onset Date Comments Results 04/28/2023 Encounter Details Date Type Department Care Team ([facility] st Contact Info) Description 04/28/2023 Telephone [facility] MEDICINE 230 [place], [place] [phone] Bea Lacey MD [address] [place], [place] [phone] Results Social History Tobacco Use Types Packs/Day [...] 10:30 AM EST Medication Management [facility] MED & PEDS 505 [place] [address] Mariely Dennison, PharmD 230 [place] [address] 02/19/2025 2:00 PM EST Office Visit [facility] MED & PEDS 505 [place] [address] Cat Dumont CNP 505 [place] [address] 06/18/2025 1:30 PM EDT Office Visit [facility] ADULT DENTAL 505 [place] [address] Daniele Barlow documented as of this encounter Visit Diagnoses Not on filedocumented in this encounter Additional Health Concerns Assessment Noted Time PHQ-9 Depression Total Score: 7 05/29/19 23 10:45 AM EDT documented as of this encounter Care Teams Computer Systems Analyst Relationship Specialty Start Date End Date Bea Lacey MD [address] [place] [address] PCP - General Family Medicine 09/22/22 12/23/24 Cat Dumont CNP [address] [place] [address] PCP - General Family Medicine 12/24/24 Mariely Dennison PharmD [address] [place] [address] Pharmacist Internal Medicine 07/03/24 [facility] 09/01/24 12/02/24 [facility] 11/09/24 documented as of this encounter
--- OUTSIDE RECORDS SUMMARY | 2025-01-01 11:35 | XMS_ITS | Encounter Summary ---
Author Organization [employer] Address 75 [facility] 7t [place] [address] Care Team Providers Care Signals Intelligence Superintendent Name Role Phone Bea Lacey MD Primary Care Provider [phone] Mariely Dennison PharmD Unavailable [phone] Cat Dumont CNP Primary Care Provider [phone] Reason for Visit * Reason Onset Date Comments Results 03/30/2023 Encounter Details Date Type Department Care Team ([facility] st Contact Info) Description 03/30/2023 Telephone [facility] MEDICINE 230 [place], [place] [phone] Bea Lacey MD [address] [place], [place] [phone] Results Social History Tobacco Use Types Packs/Day [...] 10:30 AM EST Medication Management [facility] MED & PEDS 505 [place] [address] Mariely Dennison PharmD [address] [place] [address] 02/19/2025 2:00 PM EST Office Visit [facility] MED & PEDS [address] [place] [address] Cat Dumont CNP [address] [place] [address] 06/18/2025 1:30 PM EDT Office Visit [facility] ADULT DENTAL 505 [place] [address] Daniele Barlow documented as of this encounter Visit Diagnoses Not on filedocumented in this encounter Additional Health Concerns Assessment Noted Time PHQ-9 Depression Total Score: 7 05/29/19 23 10:45 AM EDT documented as of this encounter Care Teams Signals Intelligence Superintendent Relationship Specialty Start Date End Date Bea Lacey MD [address] [place] [address] PCP - General Family Medicine 09/22/22 12/23/24 Cat Dumont CNP 505 [place] [address] PCP - General Family Medicine 12/24/24 Mariely Dennison PharmD [address] [place] [address] Pharmacist Internal Medicine 07/03/24 [facility] 09/01/24 12/02/24 [facility] 11/09/24 documented as of this encounter
--- OUTSIDE RECORDS SUMMARY | 2025-01-01 11:35 | XMS_ITS | Patient Health Record ---
Author Organization [facility] Address [address] [place] [address] Care Team Providers Care Commercial Portfolio Manager Name Role Phone Jeri Stokes M.D. Primary Care Provider Madie vailable Markus Parker Unavailable [phone] Reason For Referral No Information Plan Of Treatment No Information Insurance Providers Payer Name Payer Address Payer Phone Subscriber Number Group Number Insured Name Patient Relationship to Insured Coverage Start Date Coverage End Date MEDICARE OF [facility] [address] [place] [id number] SHERLY VARGAS Self - patient is the insured
--- OUTSIDE RECORDS SUMMARY | 2025-01-01 11:35 | XMS_ITS | Encounter Summary ---
Author Organization [employer] Address 75 [facility] 7t [place] [address] Care Team Providers Care Brick And Blocker Aid Labor Name Role Phone Gordon Mills MD Primary Care Prov ider Bea Lacey MD Primary Care Provider [phone] Mariely Dennison PharmD Unavailable [phone] Cat Dumont CNP Primary Care Provider [phone] Reason for Referral * Social Care Application (Routine) - Closed Specialty Diagnoses / Procedures Referred By Contac t Referred To Contact Diabetic / Diabetes Services Diagnoses Type 2 diabetes mellitus with hyperglycemia, without long-term current use of insulin (HCC) Peter Barlow MD [address] [place] [address] Phone: tel: fax: Referral ID Status Reason Start Date Expiration Date V isits Requested Visits Authorized [id number] Closed Specialty Services Required 09/02/2022 03/01/2023 1 1 Encounter Details Date Type Department Care Team (Late st Contact Info) Description 09/02/2022 Orders Only [facility] CHC MED & PEDS [address] [place], [place] [phone] Peter Barlow MD [address] [place], [place] [phone] Type 2 diabetes mellitus with hyperglycemia, without [...] 10:30 AM EST Medication Management [facility] MED & PEDS [address] [place] [address] Mariely Dennison PharmD [address] [place] [address] 02/19/2025 2:00 PM EST Office Visit [facility] MED & PEDS [address] [place] [address] Cat Dumont REGISTERED PUBLIC SURVEYOR 505 [place] [address] 06/18/2025 1:30 PM EDT Office Visit [facility] ADULT DENTAL [address] [place] [address] Daniele Barlow Scheduled Referrals Name Type Priority Associated Diagnoses Order Schedule Referral to Diabetes Prevention Program Outpatient Referral Routine Type 2 diabetes mellitus with hyperglycemia, without long-term current use of insulin ([facility]/HCC) Ordered: 09/02/2022 documented as of this encounter Visit Diagnoses Diagnosis Type 2 diabetes mellitus with hyperglycemia, without long-term current use of insulin (HCC)- Primary documented in this encounter Additional Health Concerns Assessment Noted Time PHQ-9 Depression Total Score: 7 04/07/20 23 10:45 AM EDT documented as of this encounter Care Teams Brick And Blocker Aid Labor Relationship Specialty Start Date End Date Gordon Mills MD [address] [place] [address] PCP - General Internal Medicine 07/12/19 09/21/22 Bea Lacey MD [address] [place] [address] PCP - General Family Medicine 09/22/22 12/23/24 Cat Dumont CNP 505 [place] [address] PCP - General Family Medicine 12/24/24 Mariely Dennison PharmD [address] [place] [address] Pharmacist Internal Medicine 07/03/24 [facility] 09/01/24 12/02/24 [facility] 11/09/24 documented as of this encounter
--- OUTSIDE RECORDS SUMMARY | 2025-01-01 11:35 | XMS_ITS | Encounter Summary ---
Author Organization [employer] Address 75 [facility] 7t [place] [address] Care Team Providers Care City Driver Name Role Phone Bea Lacey MD Primary Care Provider [phone] Mariely Dennison PharmD Unavailable [phone] Cat Dumont CNP Primary Care Provider [phone] Reason for Visit * Reason Onset Date Comments Medication Question 02/07/2023 Encounter Details Date Type Department Care Team ([facility] st Contact Info) Description 02/07/2023 Telephone [facility] MEDICINE 230 [place], [place] [phone] Bea Lacey MD [address] [place], [place] [phone] Medication Question Social History Tobacco Use Types [...] of Linzess and had the med lowered [id number] last month. Pt states diarrhea has stopped [...] Description 01/08/2025 10:30 AM EST Medication Management [facility] MED & PEDS [address] [place] [address] Mariely Dennison, PharmD 230 [place] [address] 02/19/2025 2:00 PM EST Office Visit [facility] MED & PEDS [address] [place] [address] Cat Dumont CNP [address] [place] [address] 06/18/2025 1:30 PM EDT Office Visit [facility] CHC ADULT DENTAL [address] [place] [address] Daniele Barlow documented as of this encounter Visit Diagnoses Not on filedocumented in this encounter Additional Health Concerns Assessment Noted Time PHQ-9 Depression Total Score: 7 05/29/19 23 10:45 AM EDT documented as of this encounter Care Teams City Driver Relationship Specialty Start Date End Date Bea Lacey MD [address] [place] [address] PCP - General Family Medicine 09/22/22 12/23/24 Cat Dumont CNP [address] [place] [address] PCP - General Family Medicine 12/24/24 Mariely Dennison PharmD 230 [place] [address] Pharmacist Internal Medicine 07/03/24 [facility] 09/01/24 12/02/24 [facility] 11/09/24 documented as of this encounter
--- OUTSIDE RECORDS SUMMARY | 2025-01-01 11:35 | XMS_ITS | Encounter Summary ---
Author Organization [employer] Address [address] [facility] 7t [place] [address] Care Team Providers Care Broom Machine Operator Name Role Phone Bea Lacey MD Primary Care Provider [phone] Mariely Dennison PharmD Unavailable [phone] Cat Dumont CNP Primary Care Provider [phone] Encounter Details Date Type Department Care Team (Late st Contact Info) Description 02/29/2024 Orders Only [facility] MED & PEDS [address] [place], [place] [phone] Bea Lacey MD 505 [place], [place] [id number] Type 2 diabetes mellitus with hyperglycemia (CMS/HCC) [...] AM EST Medication Management [facility] MED & PEDS [address] [place] [address] Mariely Dennison, PharmD [address] [place] [address] 02/19/2025 2:00 PM EST Office Visit [facility] MED & PEDS 505 [place] [address] Cat Dumont CNP 505 [place] [address] 06/18/2025 1:30 PM EDT Office Visit [facility] ADULT DENTAL [address] [place] [address] Daniele Barlow documented as of this encounter Visit Diagnoses Diagnosis Type 2 diabetes mellitus with hyperglycemia (HCC) documented in this encounter Additional Health Concerns Assessment Noted Time PHQ-9 Depression Total Score: 20 024 10:22 AM EDT documented as of this encounter Care Teams Broom Machine Operator Relationship Specialty Start Date End Date Bea Lacey MD [address] [place] [address] PCP - General Family Medicine 09/22/22 12/23/24 Cat Dumont CNP 505 [place] [address] PCP - General Family Medicine 12/24/24 Mariely Dennison PharmD [address] [place] [address] Pharmacist Internal Medicine 07/03/24 [facility] 09/01/24 12/02/24 [facility] 11/09/24 documented as of this encounter
--- OUTSIDE RECORDS SUMMARY | 2025-01-01 11:35 | XMS_ITS | Encounter Summary ---
Author Organization [employer] Address [address] [place] [address] 7t [place] [address] Care Team Providers Care Interstate Bus Dispatcher Name Role Phone Bea Lacey MD Primary Care Provider [phone] Mariely Dennison PharmD Unavailable Cat Dumont CNP Primary Care Provider [phone] Reason for Visit * Reason Comments Med Refill Encounter Details Date Type Department Care Team ([facility] Contact Info) Description 09/30/2022 Refill [facility] MED & PEDS [address] [place] [address] MartinGordon Ann MD [address] [place] [address] Chronic rhinitis Social History Tobacco Use Types [...] Encounters Date Type Department Care Team ([facility] Contact Info) Description 01/08/2025 10:30 AM EST Medication Management [facility] MED & PEDS [address] [place] [address] Mariely Dennison PharmD 230 [place] [address] 02/19/2025 2:00 PM EST Office Visit [facility] MED & PEDS [address] [place] [address] Cat Dumont CNP 505 [place] [address] 06/18/2025 1:30 PM EDT Office Visit [facility] ADULT DENTAL [address] [place] [address] Daniele Barlow documented as of this encounter Visit Diagnoses Diagnosis Chronic rhinitis documented in this encounter Additional Health Concerns Assessment Noted Time PHQ-9 Depression Total Score: 7 05/29/19 10:45 AM EDT documented as of this encounter Care Teams Interstate Bus Dispatcher Relationship Specialty Start Date End Date Bea Lacey MD 230 [place] [address] PCP - General Family Medicine 09/22/22 12/23/24 Cat Dumont CNP 505 [place] [address] PCP - General Family Medicine 12/24/24 Mariely Dennison PharmD 230 [place] [address] Pharmacist Internal Medicine 07/03/24 [facility] 09/01/24 12/02/24 [facility] 11/09/24 documented as of this encounter
--- OUTSIDE RECORDS SUMMARY | 2025-01-01 11:35 | XMS_ITS | Encounter Summary ---
Author Organization [employer] Address [address] [facility] 7t [place] [address] Care Team Providers Care Receiving Supervisor Name Role Phone Bea Lacey MD Primary Care Provider [phone] Mariely Dennison PharmD Unavailable Cat Dumont CNP Primary Care Provider [phone] Reason for Visit * Reason Onset Date Comments Nurse Triage 02/08/2024 Encounter Details Date Type Department Care Team ([facility] st Contact Info) Description 02/08/[address] [facility] MEDICINE [address] [place], [place] [phone] Bea Lacey MD [address] [place], [place] [phone] Nurse Triage Social History Tobacco Use Types [...] Description 01/08/2025 10:30 AM EST Medication Management [facility] MED & PEDS [address] [place] [address] Mariely Dennison, PharmD 230 [place] [address] 02/19/2025 2:00 PM EST Office Visit [facility] MED & PEDS [address] [place] [address] Cat Dumont CNP 505 [place] [address] 06/18/2025 1:30 PM EDT Office Visit [facility] ADULT DENTAL [address] [place] [address] Daniele Barlow documented as of this encounter Visit Diagnoses Not on filedocumented in this encounter Additional Health Concerns Assessment Noted Time PHQ-9 Depression Total Score: 20 024 10:22 AM EDT documented as of this encounter Care Teams Receiving Supervisor Relationship Specialty Start Date End Date Bea Lacey MD [address] [place] [address] PCP - General Family Medicine 09/22/22 12/23/24 Cat Dumont CNP 505 [place] [address] PCP - General Family Medicine 12/24/24 Mariely Dennison PharmD [address] [place] [address] Pharmacist Internal Medicine 07/03/24 [facility] 09/01/24 12/02/24 [facility] 11/09/24 documented as of this encounter
--- OUTSIDE RECORDS SUMMARY | 2025-01-01 11:35 | XMS_ITS | Encounter Summary ---
Author Organization [employer] Address [address] [facility] 7t [place] [address] Care Team Providers Care Cover Operator Name Role Phone Gordon Mills MD Primary Care Prov ider Bea Lacey MD Primary Care Provider [phone] Mariely Dennison PharmD Unavailable [phone] Cat Dumont CNP Primary Care Provider [phone] Reason for Visit * Reason Comments Med Refill Encounter Details Date Type Department Care Team ([facility] Contact Info) Description 09/02/2022 Refill [facility] CHC MED & PEDS [address] [place], [place] [phone] Petre Barlow MD 505 [place] [address] Social History Tobacco Use Types Packs/Day Years [...] Description 01/08/2025 10:30 AM EST Medication Management [facility] MED & PEDS [address] [place] [address] Mariely Dennison PharmD 230 [place] [address] 02/19/2025 2:00 PM EST Office Visit [facility] MED & PEDS 505 [place] [address] Cat Dumont CNP [address] [place] [address] 06/18/2025 1:30 PM EDT Office Visit [facility] ADULT DENTAL [address] [place] [address] Daniele Barlow documented as of this encounter Visit Diagnoses Not on filedocumented in this encounter Additional Health Concerns Assessment Noted Time PHQ-9 Depression Total Score: 7 05/29/19 10:45 AM EDT documented as of this encounter Care Teams Cover Operator Relationship Specialty Start Date End Date Gordon Mills MD [address] [place] [address] PCP - General Internal Medicine 07/12/19 09/21/22 Bea Lacey MD [address] [place] [address] PCP - General Family Medicine 09/22/22 12/23/24 Cat Dumont CNP [address] [place] [address] PCP - General Family Medicine 12/24/24 Mariely Dennison PharmD [address] [place] [address] Pharmacist Internal Medicine 07/03/24 [facility] 09/01/24 12/02/24 [facility] 11/09/24 documented as of this encounter
--- OUTSIDE RECORDS SUMMARY | 2025-01-01 11:35 | XMS_ITS | Encounter Summary ---
Author Organization [employer] Address [address] [facility] 7t [place] [address] Care Team Providers Care Plate Setter Name Role Phone Gordon Mills MD Primary Care Prov ider Bea Lacey MD Primary Care Provider [phone] Mariely Dennison PharmD Unavailable [phone] Cat Dumont CNP Primary Care Provider [phone] Reason for Visit * Reason Onset Date Comments PCP change 09/01/2022 Encounter Details Date Type Department Care Team ([facility] st Contact Info) Description 09/01/2022 Telephone [facility] MED & PEDS [address] [place], [place] [phone] Gordon Mills MD [address] [place], [place] [phone] PCP change Social History Tobacco Use Types [...] and would liketo be transferred to PCP S. ronit documented in this encounter Plan of Treatment Upcoming Encounters Date Type Department Care Team (Late st Contact Info) Description 01/08/2025 10:30 AM EST Medication Management [facility] MED & PEDS [address] [place] [address] Mariely Dennison, PharmD 230 [place] [address] 02/19/2025 2:00 PM EST Office Visit [facility] MED & PEDS [address] [place] [address] Cat Dumont, DEVELOPMENT ARCHITECT 505 [place] [address] 06/18/2025 1:30 PM EDT Office Visit [facility] ADULT DENTAL [address] [place] [address] Daniele Barlow documented as of this encounter Visit Diagnoses Not on filedocumented in this encounter Additional Health Concerns Assessment Noted Time PHQ-9 Depression Total Score: 7 05/29/19 10:45 AM EDT documented as of this encounter Care Teams Plate Setter Relationship Specialty Start Date End Date Gordon Mills MD 505 [place] [address] PCP - General Internal Medicine 07/12/19 09/21/22 Bea Lacey MD [address] [place] [address] PCP - General Family Medicine 09/22/22 12/23/24 Cat Dumont CNP 505 [place] [address] PCP - General Family Medicine 12/24/24 Mariely Dennison PharmD [address] [place] [address] Pharmacist Internal Medicine 07[facility]03[facility]02[facility]24 [facility] 11/09/24 documented as of this encounter
--- OUTSIDE RECORDS SUMMARY | 2025-01-01 11:35 | XMS_ITS | Encounter Summary ---
Author Organization [employer] Address [address] [facility] 7t [place] [address] Care Team Providers Care Quality Assurance Consultant Name Role Phone Bea Lacey MD Primary Care Provider [phone] Mariely Dennison PharmD Unavailable [phone] Cat Dumont CNP Primary Care Provider [phone] Reason for Visit * Reason Comments Med Refill Encounter Details Date Type Department Care Team ([facility] Contact Info) Description 03/30/2024 Refill [facility] CHC MED & PEDS 505 [place], [place] [phone] Bea Lacey MD 505 [place] [address] Essential tremor Social History Tobacco Use Types [...] 10:30 AM EST Medication Management [facility] MED & PEDS [address] [place] [address] Mariely Dennison, PharmD 230 [place] [address] 02/19/2025 2:00 PM EST Office Visit [facility] MED & PEDS [address] [place] [address] Cat Dumont CNP 505 [place] [address] 06/18/2025 1:30 PM EDT Office Visit [facility] ADULT DENTAL [address] [place] [address] Daniele Barlow documented as of this encounter Visit Diagnoses Diagnosis Essential tremor documented in this encounter Additional Health Concerns Assessment Noted Time PHQ-9 Depression Total Score: 20 024 10:22 AM EDT documented as of this encounter Care Teams Quality Assurance Consultant Relationship Specialty Start Date End Date Bea Lacey MD [address] [place] [address] PCP - General Family Medicine 09/22/22 12/23/24 Cat Dumont CNP [address] [place] [address] PCP - General Family Medicine 12/24/24 Mariely Dennison PharmD [address] [place] [address] Pharmacist Internal Medicine [facility] 11/09/24 documented as of this encounter
--- OUTSIDE RECORDS SUMMARY | 2025-01-01 11:35 | XMS_ITS | Encounter Summary ---
Author Organization [employer] Address [address] [facility] 7t [place] [address] Care Team Providers Care Senior Training Specialist Name Role Phone Bea Lacey MD Primary Care Provider [phone] Mariely Dennison PharmD Unavailable [phone] Cat Dumont CNP Primary Care Provider [phone] Reason for Visit * Reason Onset Date Comments Nurse Triage 03/05/2024 Encounter Details Date Type Department Care Team ([facility] st Contact Info) Description 03/05/2024 Telephone [facility] MED & PEDS [address] [place], [place] [phone] Bea Lacey MD 505 [place] [address] Nurse Triage Social History Tobacco Use Types [...] follow with PCP and update patient with luigitDiana gomes. Multiple (2) protocols were used on this [...] 10:30 AM EST Medication Management [facility] MED & PEDS [address] [place] [address] Mariely Dennison, PharmD [address] [place], [place] [phone] 02/19/2025 2:00 PM EST Office Visit [facility] MED & PEDS [address] [place] [address] Cat Dumont CNP 505 [place] [address] 06/18/2025 1:30 PM EDT Office Visit [facility] ADULT DENTAL [address] [place] [address] Daniele Barlow documented as of this encounter Visit Diagnoses Not on filedocumented in this encounter Additional Health Concerns Assessment Noted Time PHQ-9 Depression Total Score: 20 024 10:22 AM EDT documented as of this encounter Care Teams Senior Training Specialist Relationship Specialty Start Date End Date Bea Lacey MD [address] [place] [address] PCP - General Family Medicine 09/22/22 12/23/24 Cat Dumont CNP [address] [place] [address] PCP - General Family Medicine 12/24/24 Mariely Dennison PharmD [address] [place] [address] Pharmacist Internal Medicine 07/03/24 [facility] 09/01/24 12/02/24 [facility] 11/09/24 documented as of this encounter
--- OUTSIDE RECORDS SUMMARY | 2025-01-01 11:35 | XMS_ITS | Encounter Summary ---
Author Organization [employer] Address [address] [facility] 7t [place] [address] Care Team Providers Care Box Sealing Machine Feeder Name Role Phone Bea Lacey MD Primary Care Provider [phone] Mariely Dennison PharmD Unavailable [phone] Cat Dumont CNP Primary Care Provider [phone] Reason for Visit * Reason Comments Med Refill Encounter Details Date Type Department Care Team ([facility] st Contact Info) Description 02/06/2024 Refill [facility] DIABETES/NUTRITION [address] [place] [address] Bea Lacey MD [address] [place], [place] [phone] Type 2 diabetes mellitus with hyperglycemia, without long-term current use of insulin ([facility]) Social History Tobacco Use Types Packs/Day Years [...] Description 01/08/2025 10:30 AM EST Medication Management [facility] MED & PEDS [address] [place] [address] Mariely Dennison, PharmD [address] [place] [address] 02/19/2025 2:00 PM EST Office Visit [facility] MED & PEDS [address] [place] [address] Cat Dumont, STATUS CONTROLLER 505 [place] [address] 06/18/2025 1:30 PM EDT Office Visit [facility] ADULT DENTAL [address] [place] [address] Daniele Barlow documented as of this encounter Visit Diagnoses Diagnosis Type 2 diabetes mellitus with hyperglycemia, without long-term current use of insulin (HCC) documented in this encounter Additional Health Concerns Assessment Noted Time PHQ-9 Depression Total Score: 20 024 10:22 AM EDT documented as of this encounter Care Teams Box Sealing Machine Feeder Relationship Specialty Start Date End Date Bea Lacey MD [address] [place] [address] PCP - General Family Medicine 09/22/22 12/23/24 Cat Dumont CNP [address] [place] [address] PCP - General Family Medicine 12/24/24 Mariely Dennison PharmD [address] [place] [address] Pharmacist Internal Medicine 07/03/24 [facility] 09/01/24 12/02/24 [facility] 11/09/24 documented as of this encounter
--- OUTSIDE RECORDS SUMMARY | 2025-01-01 11:35 | XMS_ITS | Clinical Summary ---
Author Organization [employer] Address [address] [facility] 7t [place] [address] Care Team Providers Care Electrician Master Name Role Phone Mariely Dennison PharmD Unavailable [phone] Cat Dumont CNP Primary Care Provider [phone] Allergies Active Allergy Reactions Criticality Noted Date [...] 024 Active Blood Glucose Monitoring Suppl (FreeStyle [place] Lite) w/Device kit TEST BLOOD SUGAR DAILY [...] Glucose Sensor (FreeStyle Verito 3 Plus Sensor) [facility] 1 each every 15 days. 2 each [...] (For opiod withdrawal OR rapid heartbeat). Active rosuvastatin (Crestor) 40 MG tabletIndications :Mixed [...] Apply topically 2 times daily. 100 g Active pseudoephedrine (Sudafed) 30 MG tablet Take [...] evening meal. 60 capsule 1 025 Active amoxicillin (Amoxil) 500 MG capsule Take 4 tabs (2 grams) 1 hour prior to dental procedure 12 capsule 025 Active pilocarpine (Salagen) 5 MG tabletIndications :Gastroesophageal reflux disease without esophagitis TAKE ONE TABLET IN THE MORNING AND EVENING 60 tablet 3 025 Active docusate sodium (Colace) 100 MG capsuleIndication s:Chronic idiopathic constipation TAKE ONE CAPSULE TWICE DAILY IN THE MORNING AND AT BEDTIME 60 capsule 3 025 Active pilocarpine (Salagen) 5 MG tabletIndications :Gastroesophageal reflux disease without esophagitis TAKE ONE TABLET IN THE MORNING AND EVENING 60 tablet 3 025 2024 Discontinued docusate sodium (Colace) 100 MG capsuleIndication s:Chronic idiopathic constipation TAKE ONE CAPSULE TWICE DAILY IN THE MORNING AND AT BEDTIME 60 capsule 3 025 2024 Discontinued sucralfate (Carafate) 1 g [...] 12/17/2024 Asthenia 10/28/2024 Falling 10/28/2024 Hypokalemia 10/28/2024 meterman current use of anticoagulant therapy 0 10/28/2024 Chronic pain 10/28/2024 Atrial fibrillation ([facility]/HCC) 10/28/2024 Chronic kidney disease due to hypertension [...] to surgery has appointment next week at [facility]. On examination no warning signs Chronic abdominal [...] 3 secondary to diabetes 01/28/2022 CAD in [place] artery 01/28/2022 Type 2 diabetes mellitus wit [...] organization. Date Type Department Care Team Description 01/01/2025 Refill [facility] [address] [place] [address] Bea Lacey MD 12/31/2024 Telephone [facility] [address] [place] [address] Cat Dumont CNP 12/28/2024 Refill [facility] [address] [place] [address] Bea Lacey MD Gastroesophageal reflux disease without esophagitis; Chronic idiopathic constipation 12/27/2024 10:00 AM EST Office Visit [facility] [address] [place] [address] Shyam Gillette, DDS 12/26/2024 2:00 PM EST Office Visit [facility] [address] [place] [address] Shyam Gillette, DDS 12/26/2024 Telephone [facility] [address] [place] [address] Cat Dumont CNP Call Back Request 12/24/2024 Telephone [facility] [address] [place] [address] Cat Dumont CNP call back requested 12/24/2024 Telephone [facility] [address] [place] [address] Katja Bassett, CRISTELA 12/19/2024 Orders Only [facility] [address] [place] [address] Cta Dumont CNP Irritable bowel syndrome with both constipation and diarrhea (Primary Dx) 12/19/2024 Telephone [facility] [address] [place] [address] Bea Lacey MD Nurse Triage 12/18/2024 9:15 AM EDT Office Visit [facility] [address] [place] [address] Cat Dumont CNP Essential tremor (Primary Dx); Type 2 diabetes mellitus with hyperglycemia, without long-term current use of insulin (HCC); Chronic right-sided low back pain without sciatica; Chronic pain in left shoulder 12/18/2024 Travel 12/17/2024 Telephone [facility] [address] [place] [address] Bea Lacey MD chart prep 12/17/2024 Telephone [facility] [address] [place] [address] Bea Lacey MD 12/14/2024 2:15 PM EDT Office Visit [facility] [address] [place] [address] Daniele Barlow Dental calculus (Primary Dx) 12/03/2024 Telephone [facility] [address] [place] [address] Bea Lacey MD 12/03/2024 Patient Outreach [facility] [address] [place] [address] Bea Lacey MD Care Coordination (Home Health Utilization) 12/03/2024 Refill [facility] [address] [place] [address] Bae Lacey MD Gastroesophageal reflux disease without esophagitis 11/27/2024 Refill [facility] [address] [place] [address] Bea Lacey MD Gastroesophageal reflux disease without esophagitis; Essential tremor 11/21/2024 Refill [facility] [address] [place] [address] Bea Lacey MD Vitamin D deficiency 11/20/2024 Orders Only [facility] [address] [place] [address] Bea Lacey MD 11/20/2024 Telephone [facility] [address] [place] [address] Bea Lacey MD 11/16/2024 Orders Only [facility] [address] [place] [address] Cat Dumont, TYREE Constipation, unspecified constipation type (Primary Dx); CKD stage 3 secondary to diabetes ([facility]/HCC); Muscle spasm; Pain 11/16/2024 Telephone [facility] [address] [place] [address] Bea Lacey MD Appointment 11/16/2024 Telephone [facility] [address] [place] [address] Bea Lacey MD 11/16/2024 Refill [facility] [address] [place] [address] Bea Lacey MD 11/15/2024 Telephone [facility] [address] [place] [address] Baylee De La Torre, LadiD 11/14/[address] [address] Bea Lacey MD 11/09/2024 Telephone [facility] [address] [place] [address] Bea Lacey MD Call Back Request 11/06/2024 Patient Outreach [facility] [address] [place] [address] Bea Lacey MD Transition Of Care (Tcm) (HDF - scheduled (direct)) 10/26/2024 Telephone [facility] [address] [place] [address] Bea Lacey MD No Show 10/17/2024 Travel 10/17/2024 Telephone [facility] [address] [place] [address] Bea Lacey MD No Show 10/16/2024 Telephone [facility] [address] [place] [address] Bea Lacey MD Chart Prep 10/08/2024 Telephone [facility] [address] [place] [address] Bea Lacey MD Med reconciliation 10/08/2024 Telephone [facility] [address] [place] [address] Bea Lacey MD Appointment Request 10/05/2024 Telephone [facility] [address] [place] [address] Bea Lacey MD fyi 10/03/2024 Patient Outreach [facility] [address] [place] [address] Bea Lacey MD Transition Of Care (Tcm) (HDF scheduled. ) from Last 3 Months Immunizations Immunization Administration [...] Pressure 126/74 12/27/2024 10:13 AM EST Pulse 80 12/18/2024 9:36 AM EDT Temperature [...] Description 01/08/2025 10:30 AM EST Medication Management [facility] [address] [place] [address] Mariely Dennison PharmD [address] [place] [address] 02/19/2025 2:00 PM EST Office Visit [facility] [address] [place] [address] Cat Dumont, PHOTOGRAPHERS' MODEL [address] [place] [address] 06/18/2025 1:30 PM EDT Office Visit [facility] [address] [place] [address] Daniele Barlow Health Maintenance Due Date Last [...] Additional history exists SDOH Screening 09/11/2025 09/11/2024 Dental X-Ray: Bitewings 12/15/2025 12/15/19 25, 11/09/2023, 12/22/2022, Additional history exists Alcohol/Substance Use Screening 12/18/2025 12/18/2024 Tobacco Screening 12/27/2025 12/27/2024 Eye Exam 06/28/2026 06/28/2024 Dental X-Ray: Full [...] Procedure Name Priority Date/Time Associated Diagnosis Comments XR HIPS BILATERAL 3 OR 4 VIEWS WITH OR WITHOUT PELVIS Routine 01/01/2025 10:18 AM EST CASE PRESENTATION, DETAILED AND EXTENSIVE TREATMENT PLANNING Routine 12/27/2024 10:00 AM EST 2 MO RESIN-BASED COMPOSITE - 2 SURF, POSTERIOR Routine 12/27/2024 10:00 AM EST 13 MOD RESIN-BASED COMPOSITE - 3 SURF, POSTERIOR Routine 12/26/2024 2:00 PM EST CASE PRESENTATION, DETAILED AND EXTENSIVE TREATMENT PLANNING Routine 12/26/2024 2:00 PM EST POCT GLYCATED HEMOGLOBIN, TOTAL Routine 12/18/2024 9:39 [...] RADIOGRAPHIC IMAGE Routine 12/14/2024 2:15 PM EDT DIABETES EYE EXAM Routine 06/28/2024 11:09 AM [...] Relevant to Health Maintenance Results * XR Hips Bilateral 3 or 4 Views with or without Pelvis (01/01/2025 10:18 AM EST) Anatomical Region Laterality Modality Lower Extremities, Hip Bilateral Radiograp hic Imaging 01/01/2025 10:1 8 AM EST Narrative 01/01/2025 10:40 AM EST [place] [address] XRay Report Signed Patient: Malik Maki MR#: [id number] 2 : 1950 Acct:[id number] Age/Sex: 74 / M ADM Date: 01/01/25 Loc: HO.XRAY Attending Dr: Chino Gates MD Ordering Physician: Chino Gates MD Date of Service: 01/01/25 Procedure(s): XR hips DI min 3V Accession Number(s): [id number] cc: Chino Gates MD; Cat Dumont NP Reason for Exam: M16.0 - Bilateral primary osteoarthritis of hip EXAMINATION: XR BILATERAL HIPS WITH AP PELVIS CLINICAL INFORMATION: M16.0 - Bilateral primary osteoarthritis of hip COMPARISON: None available. TECHNIQUE: AP and oblique views both hips. FINDINGS: No acute cortical disruption or malalignment. No lytic or blastic lesions. Vascular clips overlapping the coxofemoral joints bilaterally. There is a metallic reservoir overlapping the right iliac bone no fully included in the [id number]-[id number]. XR/XR hips DI min 3V IMPRESSION: No acute fracture or dislocation. No gross degenerative changes. Prior surgical procedure. Electronically signed by: Sulaiman Pichardo MD 01/01/2025 10:37 AM EST RP Dictated By: Sulaiman Mae MD Signed By: <Electronically signed by Sulaiman Buchanan MD in OV> 01/01/25 1037 DD/ 1018 TD/TT: 01/01/25 1024 Supervisor Remelt: Procedure Note Donotuseinterpreter, Image - 01/01/2025 [place] [address] XRay Report Signed Patient: Malik Maki R#: [id number] 2 : 1950cct:[id number] Age/Sex: 74 / MADM Date: 01/01/25 Loc: HO.XRAY Attending Dr: Chino Gates MD Ordering Physician: Chino Gates MD Date of Service: 01/01/25 Procedure(s): XR hips DI min 3V Accession Number(s): [id number] cc: Chino Gates MD; Cat Dumont NP Reason for Exam: M16.0 - Bilateral primary osteoarthritis of hip EXAMINATION: XR BILATERAL HIPS WITH AP PELVIS CLINICAL INFORMATION: M16.0 - Bilateral primary osteoarthritis of hip COMPARISON: None available. TECHNIQUE: AP and oblique views both hips. FINDINGS: No acute cortical disruption or malalignment. No lytic or blastic lesions. Vascular clips overlapping the coxofemoral joints bilaterally. There is a metallic reservoir overlapping the right iliac bone no fully included in the mtyus-ny-pblz. XR/XR hips DI min 3V IMPRESSION: No acute fracture or dislocation. No gross degenerative changes. Prior surgical procedure. Electronically signed by: Sulaiman Pichardo MD 01/01/2025 10:37 AM EST RP Dictated By: Sulaiman Mae MD Signed By: <Electronically signed by Sulaiman Buchanan MDin OV> 01/01/25 1037 DD/ 1018 TD/TT: 01/01/25 1024 Supervisor Remelt: [facility] External Provider IMG XR PROCEDURES Edited Result - Final * (ABNORMAL) POCT A1c (12/18/2024 9:39 AM EDT) Pathologist [facility] Hemoglobin A1C 6.6(A) 4.0 - 5.7 % QC Media Lot # Comment:[id number] Lot# Expiration Date Comment:06/14/2026 Blood 12/18/2024 9:39 AM EDT [facility] POINT OF CARE TEST ENTER/ EDIT ORDERABLES Final Result * (ABNORMAL) POCT glucose manually resulted (12/18/2024 9:38 AM EDT) Pathologist [facility] Glucose Blood, POC 257(A) 60 - 200 mg/dL QC Media Lot # Comment:[id number] Lot# Expiration Date Comment:03/31/2025 Blood Capillary blood specimen / Unknown 12/18/2024 9:38 AM EDT [facility] POINT OF CARE TEST ENTER/ EDIT ORDERABLES Final Result * Diabetes Eye Exam (06/28/2024 11:09 AM EDT) Historical Provider HEALTH MAINTENANCE Final Result * Lipid Panel, Standard (11/10/2023 11:22 AM EDT) Triglycerides 76 <150 mg/dL [facility] Comment:Desirable Triglyceri de: less than 150 mg/dLBorderline High Triglyceride 150-199 mg/dLHigh Triglyceride: 200-499 mg/dLVery High Triglyceride: greater than or equal to 5OO mg/dL Cholesterol 110 <200 mg/dL [facility] Comment:Desirable Cholestero l: less than 200 mg/dLBorderline High Cholesterol: 200-239 mg/dLHigh Cholesterol: greater than 239 mg/dL LDL Cholesterol Calculated 50 <100 mg/dL [facility] Comment:Desirable LDL: less than 100 mg/dLNear Optimal/Above Optimal LDL: 110- 129 mg/dLBorderline High LDL: 130-159 mg/dLHigh LDL: 160-189 mg/dLVery High LDL: greater than or equal to 190 mg/dL HDL Cholesterol 45 >40 mg/dL [facility] Comment:Desirable HDL: great er than 40 mg/dL Note: This HDL assay may give artificially low results in patients with liver disease. Blood Venous blood specimen / Unknown 11/10/2023 11:22 AM EDT 11/10/2023 2:56 PM EDT Bea Lacey MD LAB BLOOD ORDERABLES Final Resul t Performing Organization Address City/[facility]/ZIP Co de Phone Number [facility] [address] [place] [phone] [phone] * HEPATITIS C AB W/REFL TO HCV RNA, QN, PCR (10/15/2019 1:23 PM EDT) HEPATITIS C ANTIBODY NON-REACT ELLE NON-REACT ELLE [facility] INDEX 0.01 <1.00 [facility] Comment: HCV antibody was non-reactive. There is no laboratory evidence of HCV infection. In most cases, no further action is required. However, if recent HCV exposure is suspected, a test for HCV RNA (test code 64346) is suggested. For additional information please refer to http://education.Wordster.Fariqak/faq/DBV57d0 (This link is being provided for informational/ educational purposes only.) 10/15/2019 1:23 PM EDT us Gordon Rocha MD HISTORICAL/NON ORD ERABLE LABS Final Result [facility] [address] [place] [address], * Hm Colonoscopy (03/14/2014 12:17 PM EST) us Historical Provider HEALTH MAINTENANCE Final Result from Last 3 Months or Most Recently Relevant to Health Maintenance Insurance MEDICARE [facility] FULL [place] ST[place] * Guarantor: Malik Maki Account Type Relation to Patient Date of Phone Billing Address Personal/Family Self [address] [place] Care Teams Electrician Master Relationship Specialty Start Date End Date Cat Dumont CNP [address] [place] [address] PCP - General Family Medicine 12/24/24 Mariely Dennison PharmD [address] [place] [address] Pharmacist Internal Medicine 07/03/24 [facility] 11/09/24
--- OUTSIDE RECORDS SUMMARY | 2025-01-01 11:35 | XMS_ITS | Encounter Summary ---
Author Organization [employer] Address [address] [facility] 7[address] [place] [address] Care Team Providers Care Turpentiner Name Role Phone Bea Lacey MD Primary Care Provider [phone] Mariely Dennison PharmD Unavailable [phone] Cat Dumont CNP Primary Care Provider [phone] Reason for Visit * Reason Onset Date Comments Nurse Triage 04/03/2024 Encounter Details Date Type Department Care Team ([facility] st Contact Info) Description 04/03/2024 Telephone [facility] [address] [place], [place] [phone] Bea Lacey MD [address] [place], [place] [phone] Nurse Triage Social History Tobacco Use Types [...] Miscellaneous Notes * Telephone Encounter - Nita Wilson, UNIX ENGINEER - 04/03/2024 1:21 PM EST Triage call [...] a new brain surgery on 04/05/24 at [facility]. Disposition reviewed and patient in agreement with plan. Will call to follow with appt. scheduling when recovered from procedure at [facility]. Patient requests that PCP be updated. [...] become worse * Telephone Encounter - Terri Suárez - 04/03/2024 12:08 PM EST Symptom: Pain - Severe (Right side under rib), Skin painful to touch. Outcome: Schedule an urgent appointment (within 1 hour) or talk to a nurse or provider soon Reason: Caller denied all higher acuity questions The caller accepted this outcome. [phone] documented in this encounter Plan of Treatment Upcoming Encounters Date Type Department Care Team (Late st Contact Info) Description 01/08/2025 10:30 AM EST Medication Management [facility] [address] [place] [address] Mariely Dennison, PharmD [address] [place] [address] 02/19/2025 2:00 PM EST Office Visit [facility] [address] [place] [address] Cat Dumont, MANAGER POKER [address] [place] [address] 06/18/2025 1:30 PM EDT Office Visit [facility] ADULT [facility] [address] [place] [address] Daniele Barlow documented as of this encounter Visit Diagnoses Not on filedocumented in this encounter Additional Health Concerns Assessment Noted Time PHQ-9 Depression Total Score: 20 024 10:22 AM EDT documented as of this encounter Care Teams Turpentiner Relationship Specialty Start Date End Date Bea Lacey MD [address] [place] [address] PCP - General Family Medicine 09/22/22 12/23/24 Cat Dumont CNP [address] [place] [address] PCP - General Family Medicine 12/24/24 Mariely Dennison PharmD [address] [place] [address] Pharmacist Internal Medicine 07/03[facility]24 [facility] 11/09/24 documented as of this encounter
--- OUTSIDE RECORDS SUMMARY | 2025-01-01 11:35 | XMS_ITS | Encounter Summary ---
Author Organization [employer] Address [address] [facility] [address] [place] [address] Care Team Providers Care Automobile Club Information Clerk Name Role Phone Bea Lacey MD Primary Care Provider [phone] Mariely Dennison PharmD Unavailable [phone] Cat Dumont CNP Primary Care Provider [phone] Encounter Details Date Type Department Care Team ([facility] st Contact Info) Description 05/21/2024 Telephone [facility] [address] [place], [place] [phone] Bea Lacey MD [address] [place], [place] [phone] Social History Tobacco Use Types Packs/Day Years [...] [facility] [address] [place] [address] Mariely Dennison PharmD [address] [place] [address] 02/19/2025 2:00 PM EST Office Visit [facility] [address] [place] [address] Cat Dumont CNP [address] [place] [address] 06/18/2025 1:30 PM EDT Office Visit [facility] ADULT DENT[facility] [address] [place] [address] Daniele Barlow documented as of this encounter Visit Diagnoses Not on filedocumented in this encounter Additional Health Concerns Assessment Noted Time PHQ-9 Depression Total Score: 20 024 10:22 AM EDT documented as of this encounter Care Teams Automobile Club Information Clerk Relationship Specialty Start Date End Date Bea Lacey MD [address] [place] [address] PCP - General Family Medicine 09/22/22 12/23/24 Cat Dumont CNP [address] [place] [address] PCP - General Family Medicine 12/24/24 Mariely Dennison PharmD [address] [place] [address] Pharmacist Internal Medicine 07/03/24 [facility] 09/01/24 12/02/24 [facility] 11/09/24 documented as of this encounter
--- OUTSIDE RECORDS SUMMARY | 2025-01-06 19:00 | XMS_ITS | Clinical Summary ---
Author Organization Unknown Care Team Providers Care Stereotype Molder Name Role Phone KIAN LEVINE, PAYAL Unavailable Unavaila ann-emarie BIRCH RN, MARTÍN Unavailable Unavailab jaycee RONDON PT, YESIKA Unavailable Unavailable J[facility]Y HOSPICE DIRECTOR, EDWARD Unavailable Unavailable ALVARO MANAGER LOSS PREVENTION, ROSENDO Unavailable Unavailable Payers Payer Name Policy Type Policy Number Effective Date Expira tion Date MEDICARE.NGS.PDGM [id number] Problems Condition Name Condition Details Condition Category [...] 11-07 00:00: 00 ATHSCL HEART DISEASE OF [place] CORONARY ARTERY W/O ANG PCTRS Active 11-07 00:00: 00 CHRONIC ATRIAL FIBRILLATION , UNSPECIFIED Active 11-07 00:00: 00 OTHER CHRONIC PAIN Active 11-07 00:00: 00 GASTRO-ESOPH AGEAL REFLUX DISEASE WITHOUT ESOPHAGITIS Active 11-07 00:00: 00 PRIMARY CENTRAL SLEEP APNEA Active 11-07 00:00: 00 DEPRESSION, UNSPECIFIED Active 11-07 00:00: 00 OTHER CONSTIPATION Active 11-07 00:00: 00 HYPOKALEMIA Active 11-07 00:00: 00 HEALTH SERVICES MANAGER (CURRENT) USE OF ANTICOAGULAN TS Active 11-07 00:00: 00 OTHER PRISON (CURRENT) DRUG THERAPY Active 11-07 00:00: 00 [...] 11-02 00:00: 00 11-09 00:00 :00 No [id number] Per instruc tions Per instructio ns (route: oral) Med Classific ation: Locomotor System bupropion HCl XL 300 mg 24 hr tablet, extended release 11-02 00:00: 00 Yes [id number] ANTIDEPRESS ANT 1 tablet DAILY 1 tablet DAILY (route: oral) Med Classific ation: Central Nervous System Agents clonazepam 0.5 mg tablet 11-02 00:00: 00 11-09 00:00 :00 No [id number] Per instruc tions Per instructio ns (route: oral) Med Classific ation: Central Nervous System Agents esomeprazol e magnesium 40 mg capsule,del ayed release 11-02 00:00: 00 11-09 00:00 :00 No [id number] Per instruc tions Per instructio ns (route: oral) Med Classific ation: Gastroint estinal Therapy Agents Farxiga 10 mg tablet 11-02 00:00: 00 11-09 00:00 :00 No [id number] Per instruc tions Per instructio ns (route: oral) Med Classific ation: Endocrine gabapentin 300 mg capsule 11-02 00:00: 00 11-09 00:00 :00 No [id number] Per instruc tions Per instructio ns (route: oral) Med Classific ation: Central Nervous System Agents hydroxyzine pamoate 25 mg capsule 11-02 00:00: 00 11-09 00:00 :00 No [id number] Per instruc tions Per instructio ns (route: oral) Med Classific ation: Central Nervous System Agents isosorbide mononitrate ER 60 mg tablet,exte nded release 24 hr 11-02 00:00: 00 11-09 00:00 :00 No [id number] Per instruc tions Per instructio ns (route: oral) Med Classific ation: Cardiovas cular Therapy Agents lubiproston e 8 mcg capsule 11-02 00:00: 00 11-09 00:00 :00 No [id number] Per instruc tions Per instructio ns (route: oral) Med Classific ation: Gastroint estinal Therapy Agents mirtazapine 7.5 mg tablet 11-02 00:00: 00 11-09 00:00 :00 No [id number] Per instruc tions Per instructio ns (route: oral) Med Classific ation: Central Nervous System Agents pilocarpine 5 mg tablet 11-02 00:00: 00 Yes [id number] DRY MOUTH 1 tablet 2 TIMES DAILY 1 tablet 2 TIMES DAILY (route: oral) Med Classific ation: Mouth-Thr oat-Denta l - Preparati ons prazosin 5 mg capsule 11-02 00:00: 00 Yes [id number] LOWERS BLOOD PRESSURE 1 capsule BEDTIME 1 capsule BEDTIME (route: oral) Med Classific ation: Cardiovas cular Therapy Agents rosuvastati n 40 mg tablet 11-02 00:00: 00 Yes [id number] LOWERS CHOLESTEROL 1 tablet BEDTIME 1 tablet BEDTIME (route: oral) Med Classific ation: Cardiovas cular Therapy Agents sertraline 100 mg tablet 11-02 00:00: 00 Yes [id number] ANTIDEPRESS ANT 1.5 tablet BEDTIME 1.5 tablet BEDTIME (route: oral) Med Classific ation: Central Nervous System Agents sucralfate 1 gram tablet 11-02 00:00: 00 11-09 00:00 :00 No [id number] Per instruc tions Per instructio ns (route: oral) Med Classific ation: Gastroint estinal Therapy Agents trazodone 50 mg tablet 11-02 00:00: 00 Yes [id number] INSOMNIA 1.5 tablet BEDTIME 1.5 tablet BEDTIME (route: oral) Med Classific ation: Central Nervous System Agents Xarelto 20 mg tablet 11-02 00:00: 00 11-09 00:00 :00 No [id number] Per instruc tions Per instructio ns (route: oral) Med Classific ation: Hematolog ical Agents FreeStyle Verito 3 Plus Sensor device 10-31 00:00: 00 11-09 00:00 :00 No [id number] Unavailable Per instruc tions AND CHANGE EVERY 15 DAYS Per instructio ns AND CHANGE EVERY 15 DAYS (route: miscellane ous) Med Classific ation: Medical Supplies and Durable Medical Equipment (DME) Entresto 49 mg-51 mg tablet 10-16 00:00: 00 Yes [id number] HEART FAILURE 1 tablet 2 TIMES DAILY 1 tablet 2 TIMES DAILY (route: oral) Med Classific ation: Cardiovas cular Therapy Agents Kerendia 20 mg tablet 10-16 00:00: 00 11-09 00:00 :00 No [id number] Per instruc tions DAILY AT Per instructio ns DAILY AT (route: oral) Med Classific ation: Cardiovas cular Therapy Agents torsemide 5 mg tablet 10-16 00:00: 00 11-09 00:00 :00 No [id number] Per instruc tions EVERY Per instructio ns EVERY (route: oral) Med Classific ation: Cardiovas cular Therapy Agents clonidine HCl 0.1 mg tablet 10-08 00:00: 00 11-09 00:00 :00 No [id number] Per instruc tions Per instructio ns (route: oral) Med Classific ation: Cardiovas cular Therapy Agents hydroxyzine HCl 25 mg tablet 10-08 00:00: 00 11-09 00:00 :00 No [id number] Per instruc tions Per instructio ns (route: oral) Med Classific ation: Central Nervous System Agents acetaminoph en 325 mg tablet 11-09 00:00: 00 Yes [id number] PAIN MANAGEMENT 2 tablet EVERY 6 HOURS 2 tablet EVERY 6 HOURS (route: oral) Med Classific ation: Analgesic , Anti-infl ammatory or Antipyret ic baclofen 10 mg tablet 11-09 00:00: 00 Yes [id number] MUSCLE SPASM 1 tablet 3 TIMES DAILY 1 tablet 3 TIMES DAILY (route: oral) Med Classific ation: Locomotor System Calcium 600 + Minerals 600 mg (as carbonate)- 200 unit tablet 11-09 00:00: 00 Yes [id number] SUPPLEMENT 1 tablet 2 TIMES DAILY 1 tablet 2 TIMES DAILY (route: oral) Med Classific ation: Electroly te Balance-N utritiona l Products Colace 100 mg capsule 11-09 00:00: 00 Yes [id number] CONSTIPATIO N 1 capsule 2 TIMES DAILY 1 capsule 2 TIMES DAILY (route: oral) Med Classific ation: Gastroint estinal Therapy Agents esomeprazol e magnesium 40 mg capsule,del ayed release 11-09 00:00: 00 Yes [id number] GERD 1 capsule 2 TIMES DAILY 1 capsule 2 TIMES DAILY (route: oral) Med Classific ation: Gastroint estinal Therapy Agents famotidine 40 mg tablet 11-09 00:00: 00 Yes [id number] GERD 1 tablet DAILY 1 tablet DAILY (route: oral) Med Classific ation: Gastroint estinal Therapy Agents Farxiga 10 mg tablet 11-09 00:00: 00 Yes [id number] HEART FAILURE 1 tablet DAILY 1 tablet DAILY (route: oral) Med Classific ation: Endocrine gabapentin 100 mg capsule 11-09 00:00: 00 Yes [id number] NEUROPATHY 2 capsule 2 TIMES DAILY 2 capsule 2 TIMES DAILY (route: oral) Med Classific ation: Central Nervous System Agents gabapentin 300 mg capsule 11-09 00:00: 00 Yes [id number] NEUROPATHY 1 capsule BEDTIME 1 capsule BEDTIME (route: oral) Med Classific ation: Central Nervous System Agents isosorbide mononitrate ER 60 mg tablet,exte nded release 24 hr 11-09 00:00: 00 Yes [id number] CAD 2 tablet DAILY 2 tablet DAILY (route: oral) Med Classific ation: Cardiovas cular Therapy Agents melatonin 10 mg capsule 11-09 00:00: 00 Yes [id number] INSOMNIA 1 capsule BEDTIME 1 capsule BEDTIME (route: oral) Med Classific ation: Central Nervous System Agents primidone 250 mg tablet 11-09 00:00: 00 Yes [id number] TREMORS 2 tablet 2 TIMES DAILY 2 tablet 2 TIMES DAILY (route: oral) Med Classific ation: Central Nervous System Agents sucralfate 1 gram tablet 11-09 00:00: 00 Yes [id number] GERD 1 tablet 2 TIMES DAILY 1 tablet 2 TIMES DAILY (route: oral) Med Classific ation: Gastroint estinal Therapy Agents Xarelto 20 mg tablet 11-09 00:00: 00 Yes [id number] AFIB 1 tablet DAILY 1 tablet DAILY (route: oral) Med Classific ation: Hematolog ical Agents Amitiza 8 mcg capsule 11-09 00:00: 00 Yes [id number] CONSTIPATIO N 1 capsule 2 TIMES DAILY 1 capsule 2 TIMES DAILY (route: oral) Med Classific ation: Gastroint estinal Therapy Agents aspirin 81 mg tablet,flores yed release 11-09 00:00: 00 Yes [id number] HEART HEALTH 1 tablet DAILY 1 tablet DAILY (route: oral) Med Classific ation: Hematolog ical Agents cetirizine 10 mg tablet 11-09 00:00: 00 Yes [id number] ALLERGIES 1 tablet DAILY 1 tablet DAILY (route: oral) Med Classific ation: Respirato ry Therapy Agents cholecalcif lgenn (vitamin D3) 25 mcg (1,000 unit) tablet 11-09 00:00: 00 Yes [id number] SUPPLEMENT 1 tablet DAILY 1 tablet DAILY (route: oral) Med Classific ation: Electroly te Balance-N utritiona l Products torsemide 5 mg tablet 11-09 00:00: 00 Yes [id number] FLUID RETENTION 1 tablet DAILY 1 tablet DAILY (route: oral) Med Classific ation: Cardiovas cular Therapy Agents Kerendia 20 mg tablet 2024-02 007 00:00: 00 Yes [id number] CARDIAC 1 tablet DAILY 1 tablet DAILY (route: oral) Alternate Route: BY MOUTH. Med Classific ation: Cardiovas cular Therapy Agents Senna Lax 8.6 mg tablet 2024-02 007 00:00: 00 Yes [id number] BOWEL 1 tablet BEDTIME 1 tablet BEDTIME [...] TION MANAGEMENT; RN TO ASSESS AND OBSERVE, MANAGER LOSS PREVENTION/FOOD BROKER TO OBSERVE FALL RISK FACTORS AND EDUCATE PATIENT/CAREGIVER ON STRATEGIES TO MINIMIZE THE RISK OF FALLING. [code = FALL REDUCTION MANAGEMENT; RN TO ASSESS AND OBSERVE, MANAGER LOSS PREVENTION/FOOD BROKER TO OBSERVE FALL RISK FACTORS AND EDUCATE PATIENT/CAREGIVER ON STRATEGIES TO MINIMIZE THE RISK OF FALLING.] Future Scheduled Test RN TO OBSE RVE, ASSESS, EVALUATE, AND DEVELOP AN INDIVIDUALIZED PLAN OF CARE. AGENCY MAY ACCEPT ORDERS FROM CONSULTING PHYSICIANS. RN TO OBSERVE AND ASSESS, MANAGER LOSS PREVENTION/FOOD BROKER TO OBSERVE FOR RISK FOR FALLS AND INSTRUCT IN FALL PREVENTION, HOME SAFETY, MEDICATION MANAGEMENT, INFECTION PREVENTION, AND NUTRITION MANAGEMENT. RN/MANAGER LOSS PREVENTION/FOOD BROKER NURSE MAY PERFORM O2 SATURATION LEVEL ON ADMISSION AND PRN FOR RN TO ASSESS/MANAGER LOSS PREVENTION TO OBSERVE PATIENT, WITH NOTIFICATION TO THE PHYSICIAN IF SATURATION IS 90% IN THE ABSENCE OF MORE SPECIFIC PARAMETERS FROM THE PHYSICIAN. AGENCY MAY PERFORM A RESUMPTION OF CARE VISIT FOLLOWING ANY HOSPITAL ADMISSION. RN/MANAGER LOSS PREVENTION/FOOD BROKER TO MONITOR CO-MORBID CONDITIONS LISTED ON THE PLAN OF CARE AND ANY NEW CONDITIONS THAT PRESENT THEMSELVES DURING THIS EPISODE TO IDENTIFY CHANGES AND INTERVENE TO MINIMIZE COMPLICATIONS. [code = RN TO OBSERVE, ASSESS, EVALUATE, AND DEVELOP AN INDIVIDUALIZED PLAN OF CARE. AGENCY MAY ACCEPT ORDERS FROM CONSULTING PHYSICIANS. RN TO OBSERVE AND ASSESS, MANAGER LOSS PREVENTION/FOOD BROKER TO OBSERVE FOR RISK FOR FALLS AND INSTRUCT IN FALL PREVENTION, HOME SAFETY, MEDICATION MANAGEMENT, INFECTION PREVENTION, AND NUTRITION MANAGEMENT. RN/MANAGER LOSS PREVENTION/FOOD BROKER NURSE MAY PERFORM O2 SATURATION LEVEL ON ADMISSION AND PRN FOR RN TO ASSESS/MANAGER LOSS PREVENTION TO OBSERVE PATIENT, WITH NOTIFICATION TO THE PHYSICIAN IF SATURATION IS 90% IN THE ABSENCE OF MORE SPECIFIC PARAMETERS FROM THE PHYSICIAN. AGENCY MAY PERFORM A RESUMPTION OF CARE VISIT FOLLOWING ANY HOSPITAL ADMISSION. RN/MANAGER LOSS PREVENTION/FOOD BROKER TO MONITOR CO-MORBID CONDITIONS LISTED ON THE PLAN OF CARE AND ANY NEW CONDITIONS THAT PRESENT THEMSELVES DURING THIS EPISODE TO IDENTIFY CHANGES AND INTERVENE TO MINIMIZE COMPLICATIONS.] Future Scheduled Test PAIN MANAG EMENT; RN TO ASSESS AND TEACH, FOOD BROKER/MANAGER LOSS PREVENTION TO OBSERVE AND TEACH AND PROVIDE EDUCATION ON PAIN MANAGEMENT TECHNIQUES. [code = PAIN MANAGEMENT; RN TO ASSESS AND TEACH, FOOD BROKER/MANAGER LOSS PREVENTION TO OBSERVE AND TEACH AND PROVIDE EDUCATION ON PAIN MANAGEMENT TECHNIQUES.] Future Scheduled Test RISK FOR H OSPITALIZATION; RN TO ASSESS/TEACH, FOOD BROKER/MANAGER LOSS PREVENTION TO OBSERVE/TEACH PATIENT/CAREGIVER ON RISK FOR HOSPITALIZATION/EMERGENCY ROOM VISITS, TEACH SIGNS AND SYMPTOMS THAT PUT PATIENT AT RISK, WHEN TO NOTIFY NURSE/PHYSICIAN OF COMPLICATIONS/DECLINE, AND WHEN TO CALL 911. [code = RISK FOR HOSPITALIZATION; RN TO ASSESS/TEACH, FOOD BROKER/MANAGER LOSS PREVENTION TO OBSERVE/TEACH PATIENT/CAREGIVER ON RISK FOR HOSPITALIZATION/EMERGENCY ROOM VISITS, TEACH SIGNS AND SYMPTOMS THAT PUT PATIENT AT RISK, WHEN TO NOTIFY NURSE/PHYSICIAN OF COMPLICATIONS/DECLINE, AND WHEN TO CALL 911.] Future Scheduled Test HEART FAIL URE MONITORING RN/FOOD BROKER/MANAGER LOSS PREVENTION TO MONITOR PATIENT FOR SIGNS AND SYMPTOMS OF HEART FAILURE EXACERBATION, MONITOR FOR ADHERENCE WITH MEDICATION AND HEART FAILURE MANAGEMENT REGIMEN. [code = HEART FAILURE MONITORING RN/FOOD BROKER/MANAGER LOSS PREVENTION TO MONITOR PATIENT FOR SIGNS AND SYMPTOMS OF HEART FAILURE EXACERBATION, MONITOR FOR ADHERENCE WITH MEDICATION AND HEART FAILURE MANAGEMENT REGIMEN.] Future Scheduled Test DIABETES M ONITORING RN/FOOD BROKER/MANAGER LOSS PREVENTION TO MONITOR BLOOD SUGAR LOG FOR BLOOD SUGAR READINGS THAT ARE BEING CHECKED BY PATIENT VIA CGM. PATIENT THERAPEUTIC BLOOD SUGAR PARAMETERS ARE 70 - 350. REPORT BLOOD SUGARS OUT OF RANGE TO PHYSICIAN. NURSE MAY PERFORM FINGER STICK BLOOD GLUCOSE NEEDED FOR SIGNS AND SYMPTOMS OF HYPO AND HYPERGLYCEMIA. RN/FOOD BROKER/MANAGER LOSS PREVENTION TO MONITOR ADHERENCE OF PATIENT PERFORMING DIABETIC FOOT CARE AND MAY PERFORM DIABETIC FOOT CARE PRN. RN/FOOD BROKER/MANAGER LOSS PREVENTION TO MONITOR FOR ADHERENCE TO DIABETIC SELF-CARE AND MANAGEMENT INCLUDING MEDICATIONS. [code = DIABETES MONITORING RN/FOOD BROKER/MANAGER LOSS PREVENTION TO MONITOR BLOOD SUGAR LOG FOR BLOOD SUGAR READINGS THAT ARE BEING CHECKED BY PATIENT VIA CGM. PATIENT THERAPEUTIC BLOOD SUGAR PARAMETERS ARE 70 - 350. REPORT BLOOD SUGARS OUT OF RANGE TO PHYSICIAN. NURSE MAY PERFORM FINGER STICK BLOOD GLUCOSE NEEDED FOR SIGNS AND SYMPTOMS OF HYPO AND HYPERGLYCEMIA. RN/FOOD BROKER/MANAGER LOSS PREVENTION TO MONITOR ADHERENCE OF PATIENT PERFORMING DIABETIC FOOT CARE AND MAY PERFORM DIABETIC FOOT CARE PRN. RN/FOOD BROKER/MANAGER LOSS PREVENTION TO MONITOR FOR ADHERENCE TO DIABETIC SELF-CARE AND MANAGEMENT INCLUDING MEDICATIONS.] Future Scheduled Test MEDICATION MANAGEMENT; RN/MANAGER LOSS PREVENTION/FOOD BROKER TO REVIEW MEDICATIONS FOR INTERACTIONS, EFFECTIVENESS OF DRUG THERAPY, AND SIGNS/SYMPTOMS OF ADVERSE REACTIONS. MAY INSTRUCT AND REINFORCE MEDICATION TEACHING RELATED TO THE USE OF MEDICATIONS, DOSAGE, FREQUENCY, PURPOSE, SIDE EFFECTS, AND TO REPORT COMPLICATIONS. [code = MEDICATION MANAGEMENT; RN/MANAGER LOSS PREVENTION/FOOD BROKER TO REVIEW MEDICATIONS FOR INTERACTIONS, EFFECTIVENESS OF DRUG THERAPY, AND SIGNS/SYMPTOMS OF ADVERSE REACTIONS. MAY INSTRUCT AND REINFORCE MEDICATION TEACHING RELATED TO THE USE OF MEDICATIONS, DOSAGE, FREQUENCY, PURPOSE, SIDE EFFECTS, AND TO REPORT COMPLICATIONS.] Future Scheduled Test AGENCY MAY PERFORM A RESUMPTION OF CARE VISIT FOLLOWING ANY HOSPITAL ADMISSION. PT TO EVALUATE, OBSERVE / ASSESS, AND MONITOR, HOSPICE DIRECTOR TO OBSERVE AND MONITOR, PROVIDE SKILLED THERAPEUTIC INTERVENTION, ACTIVITY, EDUCATION, AND TRAINING TO ADDRESS; PT/HOSPICE DIRECTOR TO PROVIDE GAIT TRAINING FOR IMPROVED MOBILITY AND /OR TO NORMALIZE GAIT PATTERN NEUROMUSCULAR RE-EDUCATION / BALANCE / POSTURAL CONTROL (PT) THERAPEUTIC EXERCISES AND ESTABLISHING A HOME EXERCISE PROGRAM (PT/HOSPICE DIRECTOR) SIT TO/FROM STAND TRANSFERS (PT/HOSPICE DIRECTOR) PT TO ASSESS / HOSPICE DIRECTOR TO MONITOR FOR AND REPORT EARLY SIGNS OF ANTICOAGULANT TOXICITY TO THE PHYSICIAN AND/OR THE RN CLINICAL TRANSPORTATION ENGINEER FOR PHYSICIAN NOTIFICATION AND TO PROVIDE PATIENT/CAREGIVER EDUCATION ON ANTICOAGULANT THERAPY PT / HOSPICE DIRECTOR TO MONITOR AND EDUCATE ON OXYGEN SATURATION DURING ADLS/IADLS, NOTIFY PHYSICIAN AND/OR THE RN CLINICAL TRANSPORTATION ENGINEER FOR PHYSICIAN NOTIFICATION AND IF O2 SATS BELOW PHYSICIAN ORDERED PARAMETERS AFTER 10 MIN OF REST PT TO ASSESS / HOSPICE DIRECTOR TO MONITOR FOR HEART FAILURE EXACERBATION AND RECORD PATIENT REPORTED WEIGHT, AND NOTIFY THE PHYSICIAN AND/OR THE RN CLINICAL TRANSPORTATION ENGINEER FOR PHYSICIAN NOTIFICATION OF HF EXACERBATION (2LB WEIGHT GAIN IN 1 DAY, 5LBS IN A WEEK OR 5 LBS OVER BASELINE; INCREASED SOB, EDEMA, NEEDING MORE PILLOWS AT NIGHT, CRACKLES IN BASIS OF THE LUNGS OR PMI SHIFT) PT TO ASSESS / HOSPICE DIRECTOR TO MONITOR CARDIO/RESPIRATORY SYSTEM; AND NOTIFY THE PHYSICIAN AND/OR THE RN CLINICAL TRANSPORTATION ENGINEER FOR PHYSICIAN NOTIFICATION FOR EARLY SIGNS AND SYMPTOMS OF EXACERBATION OR DETERIORATION. PT/HOSPICE DIRECTOR TO IDENTIFY FALL RISK FACTORS; EDUCATE THE PATIENT/CAREGIVER ON WAYS TO REDUCE FALL RISK FACTORS AND ESTABLISH HOME EXERCISE PROGRAM TO MINIMIZE FALL RISK. MAY TEACH THE PATIENT FLOOR RECOVERY WHEN CLINICALLY APPROPRIATE PT / HOSPICE DIRECTOR MAY EDUCATE ON PAIN MANAGEMENT CLINICALLY INDICATED, INCLUDING NON-PHARMACOLOGICAL PAIN REDUCTION TECHNIQUES [code = AGENCY MAY PERFORM A RESUMPTION OF CARE VISIT FOLLOWING ANY HOSPITAL ADMISSION. PT TO EVALUATE, OBSERVE / ASSESS, AND MONITOR, HOSPICE DIRECTOR TO OBSERVE AND MONITOR, PROVIDE SKILLED THERAPEUTIC INTERVENTION, ACTIVITY, EDUCATION, AND TRAINING TO ADDRESS; PT/HOSPICE DIRECTOR TO PROVIDE GAIT TRAINING FOR IMPROVED MOBILITY AND /OR TO NORMALIZE GAIT PATTERN NEUROMUSCULAR RE-EDUCATION / BALANCE / POSTURAL CONTROL (PT) THERAPEUTIC EXERCISES AND ESTABLISHING A HOME EXERCISE PROGRAM (PT/HOSPICE DIRECTOR) SIT TO/FROM STAND TRANSFERS (PT/HOSPICE DIRECTOR) PT TO ASSESS / HOSPICE DIRECTOR TO MONITOR FOR AND REPORT EARLY SIGNS OF ANTICOAGULANT TOXICITY TO THE PHYSICIAN AND/OR THE RN CLINICAL TRANSPORTATION ENGINEER FOR PHYSICIAN NOTIFICATION AND TO PROVIDE PATIENT/CAREGIVER EDUCATION ON ANTICOAGULANT THERAPY PT / HOSPICE DIRECTOR TO MONITOR AND EDUCATE ON OXYGEN SATURATION DURING ADLS/IADLS, NOTIFY PHYSICIAN AND/OR THE RN CLINICAL TRANSPORTATION ENGINEER FOR PHYSICIAN NOTIFICATION AND IF O2 SATS BELOW PHYSICIAN ORDERED PARAMETERS AFTER 10 MIN OF REST PT TO ASSESS / HOSPICE DIRECTOR TO MONITOR FOR HEART FAILURE EXACERBATION AND RECORD PATIENT REPORTED WEIGHT, AND NOTIFY THE PHYSICIAN AND/OR THE RN CLINICAL TRANSPORTATION ENGINEER FOR PHYSICIAN NOTIFICATION OF HF EXACERBATION (2LB WEIGHT GAIN IN 1 DAY, 5LBS IN A WEEK OR 5 LBS OVER BASELINE; INCREASED SOB, EDEMA, NEEDING MORE PILLOWS AT NIGHT, CRACKLES IN BASIS OF THE LUNGS OR PMI SHIFT) PT TO ASSESS / HOSPICE DIRECTOR TO MONITOR CARDIO/RESPIRATORY SYSTEM; AND NOTIFY THE PHYSICIAN AND/OR THE RN CLINICAL TRANSPORTATION ENGINEER FOR PHYSICIAN NOTIFICATION FOR EARLY SIGNS AND SYMPTOMS OF EXACERBATION OR DETERIORATION. PT/HOSPICE DIRECTOR TO IDENTIFY FALL RISK FACTORS; EDUCATE THE PATIENT/CAREGIVER ON WAYS TO REDUCE FALL RISK FACTORS AND ESTABLISH HOME EXERCISE PROGRAM TO MINIMIZE FALL RISK. MAY TEACH THE PATIENT FLOOR RECOVERY WHEN CLINICALLY APPROPRIATE PT / HOSPICE DIRECTOR MAY EDUCATE ON PAIN MANAGEMENT CLINICALLY INDICATED, [...] 2025-01-07 00:00:00 Outpatient NEW ADMISSION MARTÍN BIRCH [facility] [id number] 72.00
== END 2025-01-01 10:04 | disposition home or self-care (01) ==
LOC: HO.XRAY 10:03
PROVIDERS: Visit Provider Anesthesiology
DX: M16.0 Bilateral primary osteoarthritis of hip (principal)
CPT/HCPCS: 73522

== ENCOUNTER → 2025-01-01 10:08 | Outpatient (BNV) | payer MEDICARE, MEDICAID, SELFPAY | PROVIDERS: Visit Provider Radiology Diagnostic Radiology | DX: M16.0 Bilateral primary osteoarthritis of hip (principal) | CPT/HCPCS: 73522 ==

== ENCOUNTER 2025-01-02 13:40 | Outpatient (AMB) | payer MEDICARE, MEDICAID, SELFPAY ==
--- OUTSIDE RECORDS SUMMARY | 2024-12-26 14:00 | XMS_ITS | Encounter Summary ---
Author Organization [employer] Address [address] [facility] 7t [place] [address] Care Team Providers Care Regional Sales Trainer Name Role Phone DennisonJoanna bustilloscia PharmD Unavailable [phone] Cat Dumont CNP Primary Care Provider [phone] Reason for Visit * Reason Comments Filling Pt took Premeds arou nd 11Am.Breann Burch Encounter Details Date Type Department Care Team (Late st Contact Info) Description 12/26/2024 2:00 PM EST Office Visit [facility] ADULT D[facility] [address] [place] [address] Shyam Gillette, EMERSONS [address] [place] [address] Social History Tobacco Use Types Packs/Day Years [...] y.o. adult. Time Out: Date: 12/26/2024 Location: [facility] Tooth: #13 Procedure: Religion Verified the above with patient, speech language pathology assistant, and provider. Confirmed via patient's chart, intraorally and by radiographs. Sales Support Manager: not applicable Composite hoahaoism done on # [address] Shyam [...] 1/2 carpule 4% septocaine/articaine 1:100,000epinephrine - Existing hoahaoism and recurrent decay removed - Matrix band and wedge used as needed - Desensitizer: Gluma - Dycal: No - Base: No - Etching done using 37% phosphoric acid. - general purchasing agent applied. - Composite hoahaoism done using Filtek body/flowable composite, shade A3 - Anatomy and margins adjusted - Proximal contact confirmed with floss. - Occlusion checked with articulating paper - Necessary reductions made. - Religion smoothed and polished. - Post op instructions given Patient satisfied, left in stable condition Patient made aware possible post op sensitivity NV: Tooth #2 Religion Provider: Dr. Shyam Gillette DDS Pulpwood Buyer: EFREN Frank Supervising dentist: Dr. Carpio * [...] AM EST Medication Management [facility] [address] [place] [address] Mariely Dennison, PharmD [address] [place] [address] 02/19/2025 2:00 PM EST Office Visit [facility] [address] [place] [address] Cat Dumont CNP [address] [place] [address] 06/18/2025 1:30 PM EDT Office Visit [facility] ADULT [facility] [address] [place] [address] Daniele Barlow documented as of this encounter [...] as of this encounter Care Teams Regional Sales Trainer Relationship Specialty Start Date End Date Cat Dumont CNP [address] [place] [address] PCP - General Family Medicine 12/24/24 Mariely Dennison PharmD [address] [place] [address] Pharmacist Internal Medicine 07/03/24 [facility] 11/09/24 documented as of this encounter
--- OUTSIDE RECORDS SUMMARY | 2024-12-27 10:00 | XMS_ITS | Encounter Summary ---
Author Organization [employer] Address [address] [facility] 7t [place] [address] Care Team Providers Care Overcoiler Name Role Phone DennisonJoanna bustilloscia PharmD Unavailable [phone] Cat Dumont CNP Primary Care Provider [phone] Reason for Visit * Reason Comments Filling Pt took Premed about 20-30 Minutes ago. Breann Perez Encounter Details Date Type Department Care Team (Late st Contact Info) Description 12/27/2024 10:00 AM EST Office Visit [facility] ADULT D[facility] [address] [place] [address] Shyam Gillette, VILLA [address] [place] [address] Social History Tobacco Use Types Packs/Day Years [...] Sign Reading Time Taken Comments Blood Pressure 126/74 12/27/2024 10:13 AM EST Pulse - - Temperature - - Respiratory Rate - - Oxygen Saturation - - Inhaled Oxygen Concentration - - Weight - - Height - - Body Mass Index - - documented in this encounter Progress Notes * Shyam Gillette DDS - 12/27/2024 10:00 AM EST Dental procedures in this visit D2392 - RESIN-BASED COMPOSITE - 2 SURF, POSTERIOR 2 MO (Completed) Service provider: Shyam Gillette DDS Billing provider: William Doyle DDS D9450 - CASE PRESENTATION, DETAILED AND EXTENSIVE TREATMENT PLANNING (Completed) Service provider: Shyam Gillette DDS Billing provider: William Doyle DDS Patient ID: Malik Maki is a 74 y.o. adult. Time Out: Date: 12/27/2024 Location: [facility] Tooth: #2 Procedure: Oriental Orthodox Verified the above with patient, assistant real estate manager, and provider. Confirmed via patient's chart, intraorally and by radiographs. Vice President Quality: not applicable Composite church done on # [address] Shyam Gillette DDS Risk, benefits, and alternatives discussed with the patient. CONSENT FORM INITIALED & SIGNED BY THE PATIENT AND COUNTERSIGNED BY Dr. Shyam Gillette DDS Medical history: Reviewed in EHR Vitals: Blood pressure 126/74. Allergies: Reviewed in EHR Medications: Reviewed in EHR - LA: 20% topical benzocaine; local infiltration with 1/2 carpule 4% septocaine/articaine 1:100,000epinephrine - Existing church and recurrent decay removed - Matrix band and wedge used as needed - Desensitizer: Gluma - Dycal: No - Base: No - Etching done using 37% phosphoric acid. - travel agent applied. - Composite church done using Filtek body/flowable composite, shade A3 - Anatomy and margins adjusted - Proximal contact confirmed with floss. - Occlusion checked with articulating paper - Necessary reductions made. - Oriental Orthodox smoothed and polished. - Post op instructions given Patient made aware possible post op sensitivity. Patient has stated that he will undergo a medical procedure involving his left rotator cuff as early as January,. Teeth #4 and #5 have extensive MOD fillings which increase risk of fracture. Patient advised to explore crown option on teeth #4, 5. Tooth #21 to be monitored for possible DO replacement due to unsealed margin. Patient satisfied, left in stable condition. NV: Prophylaxis + Periodic Oral Exam Provider: Dr. Shyam Gillette DDS Contact Lens Polisher: EFREN Frank Supervising dentist: Dr. Doyle * William Doyle DDS - 12/27/2024 10:00 AM EST Reviewed and signed. documented in this encounter Plan of Treatment Upcoming Encounters Date Type Department Care Team (Late st Contact Info) Description 01/08/2025 10:30 AM EST Medication Management [facility] [address] [place] [address] Mariely Dennison, PharmD [address] [place] [address] 02/19/2025 2:00 PM EST Office Visit [facility] [address] [place] [address] Cat Dumont CNP [address] [place] [address] 06/18/2025 1:30 PM EDT Office Visit [facility] ADULT D[facility] [address] [place] [address] Daniele Barlow documented as of this encounter Procedures Procedure Name Priority Date/Time Associated Diagnosis Comments 2 MO RESIN-BASED COMPOSITE - 2 SURF, POSTERIOR Routine 12/27/2024 10:00 AM EST CASE PRESENTATION, DETAILED AND EXTENSIVE TREATMENT PLANNING Routine 12/27/2024 10:00 AM EST documented in this encounter Visit Diagnoses Not on filedocumented in this encounter Additional Health Concerns Assessment Noted Time PHQ-9 Depression Total Score: 9 09/19/19 25 9:36 AM EDT documented as of this encounter Care Teams Overcoiler Relationship Specialty Start Date End Date Cat Dumont CNP [address] [place] [address] PCP - General Family Medicine 12/24/24 Mariely Dennison PharmD [address] [place] [address] Pharmacist Internal Medicine 07/03/24 [facility] 11/09/24 documented as of this encounter
--- NOTE | 2025-01-02 13:58 | MHC.OFFVIS ---
Vital Signs 01/02/25 13:59 Height 5 ft 8 in Weight 190 lb BMI 28.9 BP 129/64 Blood Pressure Location Rt brachial Position Sitting Respiration 16 Pulse 68 Pulse Source Pulse Oximeter Pulse Oximetry (%) 96 Oxygen Delivery Method Room Air Intake Visit Reasons: PUMP ADJUSTMENT Tea Plantation Worker Required: No Accompanied by: Self / Same As Patient Allergies grass pollen Allergy (Mild, Verified 01/02/25 13:58) unknown tree and shrub pollen Allergy (Mild, Verified 01/02/25 13:58) itchy eyes, sneeze, runny nose No Known Drug Allergies Allergy (Unknown, Verified 01/02/25 13:58) none plastic tape Allergy (Unknown, Uncoded 07/04/24 13:03) irritation HPI Comments Details: Malik is in my office today for yet another pain pump adjustment. He continues to report severe pain in the back. Unfortunately he reports that last escalation of the fentanyl medication in his pump increase his pain. We are talking about escalation of the dose of the pure opioid agonist fentanyl. Possibility exists that his pain is getting exacerbated because of the weather changes. We discussed situation at hands. I offered him 3 options. We can possibly decrease the dose of the medications, we can put the pump on minimal rate is, or we can increase still medication little bit. He agreed to increase medication little bit. The intrathecal pain pump was read and medication dose was increased to 2.0 micro g a day which is 10% increase. We are trying to obtain cardiology clearance to schedule patient for spinal cord stimulator removal. I will see this patient in 2 weeks, possibly earlier if we will be able to schedule him for the removal of the spinal cord stimulator Nevro. See the pump refill as below. Prior: History of bilateral paintech sacroiliac joint stabilization with fusion. He had significant improvement however he fell in his kitchen and started to experience lot of pain again. He was sent for the x-ray of the pelvis and it appears to be that although both implantation elements are in sacroiliac joints 1 of them got shifted vertical it to the upper portion of the joint and now has a lesser chance to provide enough of the space to form the sacroiliac bridge. Most likely that is why patient started to experience pain again. We decided to treat his pain with addition of the opioids into intrathecal pain pump. For his next pump refill I will fill it up with hydromorphone 150 micro g per mL and bupivacaine 8 milligrams/mL. I will continue to increase concentration of hydromorphone until patient's satisfaction. To temporize his pain level now I will prescribe him short course of Percocet see as below. He is interested in sacroiliac joint fusion now performed by the surgeon with surgical screws. We will find out where this procedure can not be performed and we will refer patient there. [facility] also [facility] and ask him to increase stimulation levels on the machine Prior: This patient is very unfortunate gentleman who is suffering from multiple pain generators. He received multiple forms of treatment to concur the existing pain generators pain. He tried multiple sessions of physical therapy in the past and he continues from time to time to return to his home exercise program to help his pain. He tried multiple medications including NSAIDs muscle relaxants and opioids. NSAIDs give him severe side effects. He is very much concerned about addictive properties of opioids. He reports muscle relaxants help his pain minimally if any. He in the past was injected with multiple procedures including medial branch blocks, radiofrequency ablations, facet joint injections, and eventually he was not very satisfied with results of this injections. He was implanted with Nevro spinal cord stimulator which he reports helped his pain radiating into the bilateral lower extremities. He also reported axial back pain aggravated with sitting and flexing forward and on the MRI he was discovered with Modic type changes in the lumbar spine. Intraseptal procedure was performed with good results for pain aggravated with prolonged sitting however pain which is lower than the lumbar spine in the projection of his pelvis actually getting worse background of alleviated lumbar spine pain. To treat this condition he was implanted with intrathecal pain pump however the intrathecal pain pump was not very instrumental to alleviate his pain. He still receives intrathecal pain pump bupivacaine only however reports significant and advanced pain in the projection of the bilateral sacroiliac joints. He had MRI of the lumbar spine which did not demonstrate any red flags and he did have abdominal and pelvic CT scan which did not demonstrate in pelvis any abnormalities which could be suspected as the pain generators related to sacroiliac joint, sacral bones or iliac bones. 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, lumbar region PVD (peripheral vascular disease) Mood disorder On beta ruddy at home Benign essential tremor CVA (cerebral vascular accident) IDDM (insulin dependent diabetes mellitus) Sleep apnea Chronic renal insufficiency Myocardial infarction CHF (congestive heart failure) CAD (coronary artery disease) AAA (abdominal aortic aneurysm) Arrhythmia On anticoagulant therapy Elevated cholesterol HTN (hypertension) History of ischemic cardiomyopathy 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 Surgical History (Updated 05/21/24 @ 10:18 by Niki Ortiz, CRISTELA) History of surgery History of surgery (~2023) Hx of brain surgery (05/10/24) Hx of shoulder surgery History of laparoscopic cholecystectomy (12/08/22) History of surgery History of surgery History of PTCA Hx of parathyroidectomy Hx of CABG History of hernia repair Hx of gastric bypass Hx of endoscopy History of colonoscopy Family History Father Hx of congenital heart disease Mother Hx of heat stroke Social History (Updated 05/21/24 @ 09:54 by Niki Ortiz RN) Household Members: None Housing: Apartment Are you a primary palliative care nurse practitioner to a significant other at home: No Do you presently have visiting nurse or other home services: Yes ([employer] 2 hours per week) Alcohol intake: current Alcohol intake frequency: does not drink Comment: counts correct Patient Tobacco Use Status: Former Tobacco user Tobacco use type: Cigarette Second Hand Smoke Exposure: No Review of Systems Const All systems reviewed & are unremarkable except as noted in HPI and below ENT Reports Normal hearing present Neuro Reports Normal hearing present and Denies Abnormal speech present Physical Exam Vital Signs: Last Vital Signs Pulse 68 01/02/25 13:59 Resp 16 01/02/25 13:59 BP 129/64 01/02/25 13:59 Pulse Ox 96 01/02/25 13:59 Oxygen Delivery Method Room Air 01/02/25 13:59 BMI result Body Mass Index 28.9 Const General: cooperative, no acute distress, alert and well groomed Orientation/consciousness: patient oriented x3 HEENT Head: Yes normocephalic and Yes atraumatic Ears: hearing grossly normal bilaterally Eyes General: appearance normal, both eyes and all related structures Eyelids: Yes eyelids normal Pupils: Equal, round and reactive pupils present EOM: EOMs intact bilaterally Neck Neck: Yes normal visual inspection and Yes no JVD Resp Effort & Inspection: normal respiratory effort, able to speak in complete sentences and no audible wheezes Cardio Jugular venous distension: no JVD Back/Spine/Pelvis Other: Tenderness of palpation paraspinal spinal region in the entire spine cervical thoracic and lumbar. SLR is negative with foot dorsiflexion. Flexing forward aggravates the pain. Flexing backwards does not change the pain. James test, Gaenslen test, pelvic compression test, pelvic destruction test, positive on the left as well as on the right. Neuro General: patient oriented x3, moves all extremities and Normal light touch and pain sensation Cranial nerves: Yes Equal, round and reactive pupils present and Yes Normal hearing present Cognition (Neuro): normal cognition Speech: No Abnormal speech present Assessment & Plan Assessment & Plan (1) Chronic left sacroiliac joint pain: Code(s): M53.3 - Sacrococcygeal disorders, not elsewhere classified; G89.29 - Other chronic pain Category: Medical (2) Sacroiliitis: Code(s): M46.1 - Sacroiliitis, not elsewhere classified Category: Medical (3) Vertebrogenic low back pain: Code(s): M54.51 - Vertebrogenic low back pain Category: Medical (4) Chronic pain syndrome: Code(s): G89.4 - Chronic pain syndrome Category: Medical (5) Poorly controlled type 2 diabetes mellitus: Code(s): E11.65 - Type 2 diabetes mellitus with hyperglycemia Category: Medical Plan: Currently pump is still on very small right, see discussion as above. (6) Chronic pain syndrome: Code(s): G89.4 - Chronic pain syndrome Category: Medical Plan: Intrathecal pain pump was interrogated and the dose was increased from 1.799 micro g a day to 2.001 micro g a day. Patient still has 37.5 cc of medication in his pump. Plan Continue observation, we need to obtain cardiology clearance for anesthesia for removal of the spinal cord stimulator Nuria. I would need bipolar electrocautery to complete the procedure to not to affect his brain stimulator. Unfortunately we are still waiting for Cardiology clearance to schedule him for the removal of the spinal cord stimulator. Coding Level of Care Code Est Pt Level 3 (02612) Procedure Only Diagnoses Chronic left sacroiliac joint pain M53.3; G89.29 Sacroiliitis M46.1 Vertebrogenic low back pain M54.51 Chronic pain syndrome G89.4 Poorly controlled type 2 diabetes mellitus E11.65
[2025-01-02 13:59] VITALS: BP 129/64; PULSE 68; RESP 16; O2SAT 96; BMI 28.9
--- OUTSIDE RECORDS SUMMARY | 2025-01-02 16:39 | XMS_ITS | Encounter Summary ---
Author Organization [employer] Address [address] [facility] 7t [place] [address] Care Team Providers Care Customer Retention Specialist Name Role Phone Bea Lacey MD Primary Care Provider [phone] Mariely Dennison PharmD Unavailable [phone] Cat Dumont CNP Primary Care Provider [phone] Reason for Visit * Reason Onset Date Comments returning call RCT appt 06/26/2024 Encounter Details Date Type Department Care Team ([facility] st Contact Info) Description 06/26/2024 Telephone [facility] ADULT DENTAL [address] [place], [place] [phone] KandruSebastián, DDS [address] [place], [place] [phone] returning call RCT appt Social History Tobacco [...] [facility] [address] [place] [address] Mariely Dnenison, PharmD [address] [place] [address] 02/19/2025 2:00 PM EST Office Visit [facility] MED & PEDS [address] [place] [address] Cat Dumont CNP [address] [place] [address] 06/18/2025 1:30 PM EDT Office Visit [facility] CH[facility] ADULT DENTAL [address] [place] [address] Daniele Barlow documented as of this encounter Visit Diagnoses Not on filedocumented in this encounter Additional Health Concerns Assessment Noted Time PHQ-9 Depression Total Score: 20 024 10:22 AM EDT documented as of this encounter Care Teams Customer Retention Specialist Relationship Specialty Start Date End Date Bea Lacey MD [address] [place] [address] PCP - General Family Medicine 09/22/22 12/23/24 Cat Dumont CNP [address] [place] [address] PCP - General Family Medicine 12/24/24 Mariely Dennison PharmD [address] [place] [address] Pharmacist Internal Medicine 07/03/24 [facility] 09/01/24 12/02/24 [facility] 11/09/24 documented as of this encounter
--- OUTSIDE RECORDS SUMMARY | 2025-01-02 16:39 | XMS_ITS | Encounter Summary ---
Author Organization [employer] Address [address] [facility] 7t [place] [address] Care Team Providers Care Sr. Director Name Role Phone Bea Lacey MD Primary Care Provider [phone] Mariely Dennison PharmD Unavailable [phone] Cat Dumont CNP Primary Care Provider [phone] Encounter Details Date Type Department Care Team (Late st Contact Info) Description 07/18/2024 Orders Only [facility] [address] [place], [place] [phone] Provider, MD Tia Social History Tobacco Use [...] 10:30 AM EST Medication Management [facility] MED & PEDS [address] [place] [address] Mariely Dennison PharmD [address] [place], [place] [phone] 02/19/2025 2:00 PM EST Office Visit [facility] MED & PEDS [address] [place] [address] Cat Dumont, PASTRY CHEF [address] [place] [address] 06/18/2025 1:30 PM EDT Office Visit [facility] ADULT DENTAL [address] [place] [address] Daniele Barlow documented as of this encounter [...] documented as of this encounter Care Teams Sr. Director Relationship Specialty Start Date End Date Bea Lacey MD [address] [place] [address] PCP - General Family Medicine 09/22/22 12/23/24 Cat Dumont CNP [address] [place] [address] PCP - General Family Medicine 12/24/24 Mariely Dennison PharmD [address] [place] [address] Pharmacist Internal Medicine 07/03/24 [facility] 09/01/24 12/02/24 [facility] 11/09/24 documented as of this encounter
--- OUTSIDE RECORDS SUMMARY | 2025-01-02 16:39 | XMS_ITS | Encounter Summary ---
Author Organization [employer] Address [address] [facility] 7t [place] [address] Care Team Providers Care Apron Worker Name Role Phone Bea Lacey MD Primary Care Provider [phone] Mariely Dennison PharmD Unavailable [phone] Cat Dumont CNP Primary Care Provider [phone] Reason for Visit * Reason Comments Med Refill Encounter Details Date Type Department Care Team ([facility] Contact Info) Description 07/20/2024 Refill [facility] CHC MED & PEDS [address] [place], [place] [phone] Gordon Mills MD [address] [place] [address] Type 2 diabetes mellitus with hyperglycemia (CMS/HCC) [...] 10:30 AM EST Medication Management [facility] MED & PEDS [address] [place] [address] Mariely Dennison PharmD [address] [place] [address] 02/19/2025 2:00 PM EST Office Visit [facility] MED & PEDS [address] [place] [address] Cat Dumont CNP [address] [place] [address] 06/18/2025 1:30 PM EDT Office Visit [facility] ADULT DENTAL [address] [place] [address] Daniele Barlow documented as of this encounter Visit Diagnoses Diagnosis Type 2 diabetes mellitus with hyperglycemia (HCC) documented in this encounter Additional Health Concerns Assessment Noted Time PHQ-9 Depression Total Score: 20 024 10:22 AM EDT documented as of this encounter Care Teams Apron Worker Relationship Specialty Start Date End Date Bea Lacey MD [address] [place] [address] PCP - General Family Medicine 09/22/22 12/23/24 Cat Dumont CNP [address] [place] [address] PCP - General Family Medicine 12/24/24 Mariely Dennison PharmD [address] [place] [address] Pharmacist Internal Medicine 07/03/24 [facility] 09/01/24 12/02/24 [facility] 11/09/24 documented as of this encounter
--- OUTSIDE RECORDS SUMMARY | 2025-01-02 16:39 | XMS_ITS | Clinical Summary ---
Author Organization [facility] Address [address] [place] [phone] Phone Care Team Providers Care Can Labeler Name Role Phone Halle Fontenot MD Primary [...] topic Medical Devices Not on file Insurance [facility] & [facility] PART A & B [facility] MEDICARE PART A & B [facility] MEDICARE PART A & B Care Teams Can Labeler Relationship Specialty Start Date End Date Halle Fontenot MD [address] [place] [address] PCP - General Family Medicine 03/09/23 Additional Source Comments The information contained in this document represents components of the legal health record. It is not the complete legal health record.[facility]
--- OUTSIDE RECORDS SUMMARY | 2025-01-02 16:39 | XMS_ITS | Encounter Summary ---
Author Organization [facility] Address [address] [facility] [address] [place] [phone] Phone Care Team Providers Care Nuclear Licensing Engineer Name Role Phone Halle Fontenot MD Primary Care Provider Encounter Details Date Type Department Care Team (Late st Contact Info) Description 01/27/2024 Procedure Pass [facility] PERIOPERATIVE DEPT [address] [place] [phone] Social History Tobacco Use Types Packs/Day Years [...] on filedocumented in this encounter Care Teams Nuclear Licensing Engineer Relationship Specialty Start Date End Date Halle Fontenot MD [address] [place] [address] PCP - General Family Medicine 03/09/23 documented as of this encounter Additional Source Comments The information contained in this document represents components of the legal health record. It is not the complete legal health record.[facility]
--- OUTSIDE RECORDS SUMMARY | 2025-01-02 16:39 | XMS_ITS | Clinical Summary ---
Author Organization [facility] Address [address] [place] [address] Care Team Providers Care Oil Field Caser Name Role Phone Bea Lacey Primary Care [...] I'd recommend he obtain clearance from his protein scientist given his history of multiple coronary events. I would also want to seek further clarification from his neurosurgeon as to what other clearance is being sought from the neurologist's standpoint. I will be reaching out to Dr. Payan's office. CAD in wrangell artery 01/28/2022 Overview (12/30/2023): CABG with multiple [...] 10/26/2018, 04/26/2012, Additional history exists Insurance MEDICARE [facility] Care Teams Oil Field Caser Relationship Specialty Start Date End Date Bea Lcaey [address] [place] [address] [place] [address] PCP - General Family Medicine 12/26/23
--- OUTSIDE RECORDS SUMMARY | 2025-01-02 16:39 | XMS_ITS | Encounter Summary ---
Author Organization [facility] Address [address] [phone] Phone Care Team Providers Care Research Assoc Name Role Phone Lula Lacey MD Primary Care Provider [phone] Encounter Details Date Type Department Care Team ([facility] Contact Info) Description 12/25/2024 Orders Only [facility] [address] [place] [phone] Get Galo MD [address] [place] [phone] Chronic kidney disease stage 2; Essential tremor Social History Tobacco Use Types [...] Office Visit [facility] [address] [phone] Get Galo MD [facility] [address] [phone] documented as of this encounter Visit Diagnoses Diagnosis Chronic kidney disease stage 2 Essential tremor documented in this encounter Care Teams Research Assoc Relationship Specialty Start Date End Date Lula Lacey MD [address] [place] [address], [place] PCP - General Internal Medicine 01/25/24 documented as of this encounter
--- OUTSIDE RECORDS SUMMARY | 2025-01-02 16:40 | XMS_ITS | Encounter Summary ---
Author Organization [employer] Address [address] [facility] 7t [place] [address] Care Team Providers Care Ceramic Products Sales Engineer Name Role Phone Bea Lacey MD Primary Care Provider [phone] Mariely Dennison PharmD Unavailable [phone] Cat Dumont CNP Primary Care Provider [phone] Reason for Visit * Reason Onset Date Comments Medication Question 06/10/2023 Encounter Details Date Type Department Care Team ([facility] Contact Info) Description 06/10/2023 Telephone [facility] MED & PEDS [address] [place], [place] [phone] Bea Lacey MD [address] [place], [place] [phone] Medication Question Social History Tobacco Use Types [...] [facility] [address] [place] [address] Mariely Dennison PharmD [address] [place] [address] 02/19/2025 2:00 PM EST Office Visit [facility] MED & PEDS [address] [place] [address] Cat Dumont CNP [address] [place] [address] 06/18/2025 1:30 PM EDT Office Visit [facility] ADULT DENTAL [address] [place] [address] Daniele Barlow documented as of this encounter Visit Diagnoses Not on filedocumented in this encounter Additional Health Concerns Assessment Noted Time PHQ-9 Depression Total Score: 20 024 10:22 AM EDT documented as of this encounter Care Teams Ceramic Products Sales Engineer Relationship Specialty Start Date End Date Bea Lacey MD [address] [place] [address] PCP - General Family Medicine 09/22/22 12/23/24 Cat Dumont CNP [address] [place] [address] PCP - General Family Medicine 12/24/24 Mariely Dennison PharmD [address] [place] [address] Pharmacist Internal Medicine 07/03/24 [facility] 09/01/24 12/02/24 [facility] 11/09/24 documented as of this encounter
--- OUTSIDE RECORDS SUMMARY | 2025-01-02 16:40 | XMS_ITS | Encounter Summary ---
Author Organization [employer] Address [address] [facility] [address] 7[address] [place] [address] Care Team Providers Care Garage Mechanic Name Role Phone Bea Lacey MD Primary Care Provider Mariely Dennison PharmD Unavailable [phone] Cat Dumont CNP Primary Care Provider [phone] Encounter Details Date Type Department Care Team (Late st Contact Info) Description 06/07/2023 Orders Only [facility] [address] [place], [place] [phone] ProviderTia MD Social History Tobacco Use Types [...] 01/08/2025 10:30 AM EST Medication Management [facility] MED & PEDS [address] [place] [address] Mariely Dennison PharmD [address] [place] [address] 02/19/2025 2:00 PM EST Office Visit [facility] MED & PEDS [address] [place], [place] [phone] Cat Dumont, SENIOR TALENT MANAGEMENT CONSULTANT [address] [place], [place] [phone] 06/18/2025 1:30 PM EDT Office Visit [facility] ADULT DENTAL [address] [place] [address] Daniele Barlow documented as of this encounter [...] documented as of this encounter Care Teams Garage Mechanic Relationship Specialty Start Date End Date Bea Lacey MD [address] [place] [address] PCP - General Family Medicine 09/22/22 12/23/24 Cat Dumont CNP [address] [place] [address] PCP - General Family Medicine 12/24/24 Mariely Dennison PharmD [address] [place] [address] Pharmacist Internal Medicine 07/03/24 [facility] 09/01/24 12/02/24 [facility] 11/09/24 documented as of this encounter
--- OUTSIDE RECORDS SUMMARY | 2025-01-02 16:40 | XMS_ITS | Encounter Summary ---
Author Organization [employer] Address 75 [facility] 7t [place] [address] Care Team Providers Care Curator Name Role Phone Bea Lacey MD Primary Care Provider [phone] Mariely Dennison PharmD Unavailable [phone] Cat Dumont CNP Primary Care Provider [phone] Reason for Visit * Reason Comments Med Refill Encounter Details Date Type Department Care Team ([facility] st Contact Info) Description 11/27/2024 Refill [facility] MED & PEDS [address] [place], [place] [phone] Bea Lacey MD 505 [place] [address] Gastroesophageal reflux disease without esophagitis; Essential tremor [...] [facility] 505 [place] [address] Mariely Dennison PharmD 230 [place] [address] 02/19/2025 2:00 PM EST Office Visit [facility] MED & PEDS [address] [place] [address] Cat Dumont CNP 505 [place] [address] 06/18/2025 1:30 PM EDT Office Visit [facility] ADULT DENTAL 505 [place] [address] Daniele Barlow documented as of this encounter Visit Diagnoses Diagnosis Gastroesophageal reflux disease without esophagitis Esophageal reflux Essential tremor documented in this encounter Additional Health Concerns Assessment Noted Time PHQ-9 Depression Total Score: 9 09/19/19 25 9:36 AM EDT documented as of this encounter Care Teams Curator Relationship Specialty Start Date End Date Bea Lacey MD [address] [place] [address] PCP - General Family Medicine 09/22/22 12/23/24 Cat Dumont CNP 505 [place] [address] PCP - General Family Medicine 12/24/24 Mariely Dennison PharmD 230 [place] [address] Pharmacist Internal Medicine 07/03/24 [facility] 09/01/24 12/02/24 [facility] 11/09/24 documented as of this encounter
--- OUTSIDE RECORDS SUMMARY | 2025-01-02 16:40 | XMS_ITS | Encounter Summary ---
Author Organization [facility] Address [address] [place] [address] Care Team Providers Care Pe Electrical Engineer Name Role Phone Bea Lacey MD Primary Care Provider [phone] Encounter Details Date Type Department Care Team (Late st Contact Info) Description 10/30/2024 Lab Requisition [facility] - Main Lab [address] [place] [address] Lupe Cruz MD [address] [id number] Anemia, unspecified; Other disorders of electrolyte and [...] LAB CHEMISTRY METHOD 10/30/2024 12:50 PM EDT [facility] Potassium 3.9 3.5 - 5.5 mmol/L LAB CHEMISTRY METHOD 10/30/2024 12:50 PM [facility] Chloride 104 96 - 110 mmol/L LAB CHEMISTRY METHOD 10/30/2024 12:50 PM [facility] CO2 25 21 - 32 mmol/L LAB CHEMISTRY METHOD 10/30/2024 12:50 PM [facility] Anion Gap 8 3 - 11 LAB CHEMISTRY METHOD 10/30/2024 12:50 PM [facility] Glucose 155(H) 70 - 100 mg/dL LAB CHEMISTRY METHOD 10/30/2024 12:50 PM [facility] BUN 16 5 - 25 mg/dL LAB CHEMISTRY METHOD 10/30/2024 12:50 PM [facility] Creatinine 1.02 0.70 - 1.30 mg/dL LAB CHEMISTRY METHOD 10/30/2024 12:50 PM [facility] eGFR 78 >=60 mL/min/1. 73m2 LAB CHEMISTRY METHOD 10/30/2024 12:50 PM [facility] LAB Comment:Calculation based on the Chronic Kidney Disease Epidemiology Collaboration (CKD-EPI) equation refit without adjustment for race. BUN/Creatinine Ratio 15.7 LAB CHEMISTRY METHOD 10/30/2024 12:50 PM [facility] Calcium 9.4 8.5 - 10.5 mg/dL LAB CHEMISTRY METHOD 10/30/2024 12:50 PM [facility] AST (SGOT) 22 10 - 42 unit/L LAB CHEMISTRY METHOD 10/30/2024 12:50 PM [facility] ALT (SGPT) 32 10 - 60 unit/L LAB CHEMISTRY METHOD 10/30/2024 12:50 PM [facility] Alkaline Phosphatase 167(H) 42 - 121 unit/L LAB CHEMISTRY METHOD 10/30/2024 12:50 PM [facility] Total Protein 7.3 6.0 - 8.0 g/dL LAB CHEMISTRY METHOD 10/30/2024 12:50 PM EDT [facility] Albumin 3.9 3.2 - 5.0 g/dL LAB CHEMISTRY METHOD 10/30/2024 12:50 PM EDT [facility] Total Bilirubin 0.6 0.0 - 1.4 mg/dL LAB CHEMISTRY METHOD 10/30/2024 12:50 PM EDT [facility] Blood Venous blood specimen / Unknown Venipuncture / Unknown 10/30/2024 7:56 AM EDT 10/30/2024 10:49 AM EDT us Lupe Cruz MD LAB BLOOD ORDERABLES Fin al Result [facility] [address] [place] [address], * (ABNORMAL) Complete blood count (10/30/2024 7:56 AM EDT) WBC 10.0 4.8 - 10.8 K/mcL LAB HEMETOLOGY METHOD 10/30/2024 11:29 AM [facility] RBC 5.80(H) 4.50 - 5.50 M/mcL LAB HEMETOLOGY METHOD 10/30/2024 11:29 AM [facility] Hemoglobin 14.9 13.5 - 17.5 g/dL LAB HEMETOLOGY METHOD 10/30/2024 11:29 AM [facility] Hematocrit 48.6 42.0 - 54.0 % LAB HEMETOLOGY METHOD 10/30/2024 11:29 AM [facility] MCV 84.5 79.0 - 98.0 FL LAB HEMETOLOGY METHOD 10/30/2024 11:29 AM [facility] MCH 25.9(L) 27.0 - 32.0 pcg LAB HEMETOLOGY METHOD 10/30/2024 11:29 AM EDT [facility] MCHC 30.7(L) 32.0 - 37.0 g/dL LAB HEMETOLOGY METHOD 10/30/2024 11:29 AM EDT [facility] RDW 17.6(H) 11.0 - 15.0 % LAB HEMETOLOGY METHOD 10/30/2024 11:29 AM EDT [facility] Platelets 313 130 - 400 K/mcL LAB HEMETOLOGY METHOD 10/30/2024 11:29 AM EDT [facility] MPV 10.7 7.0 - 11.0 FL LAB HEMETOLOGY METHOD 10/30/2024 11:29 AM EDT [facility] NRBC 0.0 <1.0 % LAB HEMETOLOGY METHOD 10/30/2024 11:29 AM EDT [facility] NRBC Absolute 0.00 <0.10 K/mcL LAB HEMETOLOGY METHOD 10/30/2024 11:29 AM EDT [facility] Blood Venous blood specimen / Unknown Venipuncture / Unknown 10/30/2024 7:56 AM EDT 10/30/2024 10:49 AM EDT us Lupe Cruz MD LAB BLOOD ORDERABLES Fin al Result [facility] [address] [place] [address], documented in this encounter Visit Diagnoses Diagnosis Anemia, unspecified Other disorders of electrolyte and fluid balance, not elsewhere classified documented in this encounter Care Teams Pe Electrical Engineer Relationship Specialty Start Date End Date Bea Lacey MD [address] [place] [address] PCP - General 04/04/23 documented as of this encounter
--- OUTSIDE RECORDS SUMMARY | 2025-01-02 16:40 | XMS_ITS | Encounter Summary ---
Author Organization [facility] Address [address] [place] [address] Care Team Providers Care Administrative Sales Assistant Name Role Phone Bea Lacey MD Primary Care Provider [phone] Encounter Details Date Type Department Care Team (Late st Contact Info) Description 11/11/2024 Lab Requisition [facility] - Main Lab 299 [facility] [address] Lupe Cruz MD [address] [phone] Anemia, unspecified; Other disorders of electrolyte and [...] classified documented in this encounter Care Teams Administrative Sales Assistant Relationship Specialty Start Date End Date Bea Lacey MD [address] [place] [address] PCP - General 04/04/23 documented as of this encounter
--- OUTSIDE RECORDS SUMMARY | 2025-01-02 16:40 | XMS_ITS | Clinical Summary ---
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 Benign hypertension 12/30/2023 BPH (benign prostatic hyperplasia) 12/30/2023 Bilateral cataracts 12/30/2023 Bilateral tinnitus 12/30/2023 CVA (cerebral vascular accident) ([facility] V24, C [place]/[facility] V28) 12/30/2023 Heart failure with normal ej ection fraction ([facility] V24, [facility] V28) 12/30/2023 Hyperlipidemia 12/30/2023 History of parathyroidectomy 12/30/2023 CKD (chronic kidney disease) 12/30/2023 Type 2 diabetes mellitus wit h hyperglycemia ([facility] V24, [facility] V28) 12/30/2023 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 [address] Lupe rCuz MD Anemia, unspecified; Other disorders of electrolyte and fluid balance, not elsewhere classified 11/04/2024 Lab Requisition [facility] Lab 299 [facility] [place] [address] Lupe Cruz MD Anemia, unspecified; Other disorders of electrolyte and fluid balance, not elsewhere classified 10/30/2024 Lab Requisition [facility] Lab 299 [facility] [place] [address] Lupe Cruz MD Anemia, unspecified; [...] M/mcL LAB HEMETOLOGY METHOD 11/05/2024 1:[address] [facility] Hemoglobin 12.6(L) 13.5 - 17.5 g/dL LAB HEMETOLOGY METHOD 11/05/2024 1:[address] [facility] Hematocrit 41.3(L) 42.0 - 54.0 % LAB HEMETOLOGY METHOD 11/05/2024 1:[address] [facility] MCV 85.9 79.0 - 98.0 FL LAB HEMETOLOGY METHOD 11/05/2024 1:[address] [facility] MCH 26.2(L) 27.0 - 32.0 [...] HOSPITAL LAB NRBC 0.0 <1.0 % [facility] 11/05/2024 1:08 PM EDT [facility] NRBC Absolute 0.00 <0.10 K/mcL LAB HEMETOLOGY METHOD 11/05/2024 1:08 PM EDT [facility] Blood Venous blood specimen / Unknown Venipuncture / Unknown 11/05/2024 6:38 AM EDT 11/05/2024 11:55 AM EDT us Lupe Cruz MD LAB BLOOD ORDERABLES Fin al Result [facility] [address] [place] [address], * (ABNORMAL) Comprehensive metabolic panel (11/05/2024 6:38 AM EDT) Only the most recent of2 resultswithin the time period is included. Sodium 140 133 - 145 mmol/L LAB CHEMISTRY METHOD 11/05/2024 2:08 PM EDT [facility] Potassium 4.1 3.5 - 5.5 mmol/L LAB CHEMISTRY METHOD 11/05/2024 2:[address] [facility] Chloride 106 96 - 110 mmol/L LAB CHEMISTRY METHOD 11/05/2024 2:[address] [facility] CO2 29 21 - 32 mmol/L LAB CHEMISTRY METHOD 11/05/2024 2:[address] [facility] Anion Gap 5 3 - 11 LAB CHEMISTRY METHOD 11/05/2024 2:[address] [facility] Glucose 124(H) 70 - 100 mg/dL LAB CHEMISTRY METHOD 11/05/2024 2:[address] [facility] BUN 12 5 - 25 mg/dL LAB CHEMISTRY METHOD 11/05/2024 2:[address] [facility] Creatinine 0.83 0.70 - 1.30 mg/dL LAB CHEMISTRY METHOD 11/05/2024 2:[address] [facility] eGFR 93 >=60 mL/min/1. 73m2 LAB CHEMISTRY METHOD 11/05/2024 2:[address] [facility] Comment:Calculation based on the Chronic Kidney Disease Epidemiology Collaboration (CKD-EPI) equation refit without adjustment for race. BUN/Creatinine Ratio 14.5 LAB CHEMISTRY METHOD 11/05/2024 2:[address] [facility] Calcium 8.5 8.5 - 10.5 mg/dL LAB CHEMISTRY METHOD 11/05/2024 2:[address] [facility] AST (SGOT) 21 10 - 42 unit/L LAB CHEMISTRY METHOD 11/05/2024 2:[address] [facility] ALT (SGPT) 24 10 - 60 unit/L LAB CHEMISTRY METHOD 11/05/2024 2:[address] [facility] Alkaline Phosphatase 124(H) 42 - 121 unit/L LAB CHEMISTRY METHOD 11/05/2024 2:[address] [facility] Total Protein 6.0 6.0 - [...] MD LAB BLOOD ORDERABLES Fin al Result [facility] [address] [place] [address], [place] [phone] from Last 3 Months Insurance MEDICARE MEDICAID - [place] Care Teams Perinatal Technician Relationship Specialty Start Date End Date Bea Lacey MD [address] [place] [phone] [facility] - General 04/04/23
--- OUTSIDE RECORDS SUMMARY | 2025-01-02 16:40 | XMS_ITS | Encounter Summary ---
Author Organization [employer] Address 75 [facility] 7t [place] [address] Care Team Providers Care Group Teacher Name Role Phone Bea Lacey MD Primary Care Provider [phone] Mariely Dennison PharmD Unavailable [phone] Cat Dumont CNP Primary Care Provider [phone] Reason for Visit * Reason Onset Date Comments Glucose Monetor 10/08/2022 Encounter Details Date Type Department Care Team ([facility] st Contact Info) Description 10/08/2022 Telephone C [facility] MED & PEDS [address] [place] [address] Bea Lacey MD 505 [place] [address] Glucose Monetor Social History Tobacco Use Types [...] would like it to be sent to [facility], pt provided number . Patient also [...] would like it to be sent to [facility], pt provided number Please contact pt at [phone] documented in this encounter Plan of Treatment Upcoming Encounters Date Type Department Care Team (Late st Contact Info) Description 01/08/2025 10:30 AM EST Medication Management [facility] MED & PEDS [address] [place] [address] Mariely Dennison, PharmD [address] [place] [address] 02/19/2025 2:00 PM EST Office Visit [facility] MED & PEDS [address] [place] [address] Cat Dumont, RENEWAL SPECIALIST [address] [place] [address] 06/18/2025 1:30 PM EDT Office Visit [facility] ADULT DENTAL [address] [place] [address] Daniele Barlow documented as of this encounter Visit Diagnoses Not on filedocumented in this encounter Additional Health Concerns Assessment Noted Time PHQ-9 Depression Total Score: 7 05/29/19 23 10:45 AM EDT documented as of this encounter Care Teams Group Teacher Relationship Specialty Start Date End Date Bea Lacey MD [address] [place] [address] PCP - General Family Medicine 09/22/22 12/23/24 Cat Dumont CNP [address] [place] [address] PCP - General Family Medicine 12/24/24 Mariely Dennison PharmD [address] [place] [address] Pharmacist Internal Medicine 07/03/24 [facility] 09/01/24 12/02/24 [facility] 11/09/24 documented as of this encounter
--- OUTSIDE RECORDS SUMMARY | 2025-01-02 16:40 | XMS_ITS | Encounter Summary ---
Author Organization [employer] Address 75 [facility] 7t [place] [address] Care Team Providers Care Renal Medicine Specialist Name Role Phone Bea Lacey MD Primary Care Provider [phone] Mariely Dennison PharmD Unavailable [phone] Cat Dumont CNP Primary Care Provider [phone] Reason for Visit * Reason Onset Date Comments FYI 08/30/2024 Encounter Details Date Type Department Care Team ([facility] st Contact Info) Description 08/30/2024 Telephone [facility] [address] [place], [place] [phone] Bea Lacey MD [address] [place], [place] [phone] FYI Social History Tobacco Use Types Packs/Day [...] - 08/30/2024 12:38 PM EDT Tc from [place] with [facility] calling to inform pcp that pt has been referred to their services for at home PT and will be starting care on 08/31. documented in this encounter Plan of Treatment Upcoming Encounters Date Type Department Care Team (Late st Contact Info) Description 01/08/2025 10:30 AM EST Medication Management [facility] MED & PEDS [address] [place] [address] Mariely Dennison, PharmD [address] [place] [address] 02/19/2025 2:00 PM EST Office Visit [facility] MED & PEDS [address] [place] [address] Cat Dumont, SCARFER OPERATOR [address] [place] [address] 06/18/2025 1:30 PM EDT Office Visit [facility] ADULT DENTAL [address] [place] [address] Daniele Barlow documented as of this encounter Visit Diagnoses Not on filedocumented in this encounter Additional Health Concerns Assessment Noted Time PHQ-9 Depression Total Score: 20 024 10:22 AM EDT documented as of this encounter Care Teams Renal Medicine Specialist Relationship Specialty Start Date End Date Bea Lacey MD [address] [place] [address] PCP - General Family Medicine 09/22/22 12/23/24 Cat Dumont CNP [address] [place] [address] PCP - General Family Medicine 12/24/24 Mariely Dennison PharmD [address] [place] [address] Pharmacist Internal Medicine 07/03/24 [facility] 09/01/24 12/02/24 [facility] 11/09/24 documented as of this encounter
--- OUTSIDE RECORDS SUMMARY | 2025-01-02 16:40 | XMS_ITS | Encounter Summary ---
Author Organization [employer] Address 75 [facility] 7t [place] [address] Care Team Providers Care Cnc Manager Name Role Phone Bea Lacey MD Primary Care Provider [phone] Mariely Dennison PharmD Unavailable [phone] Cat Dumont CNP Primary Care Provider [phone] Reason for Visit * Reason Comments Med Refill Encounter Details Date Type Department Care Team ([facility] st Contact Info) Description 12/03/2024 Refill [facility] MED & PEDS [address] [place], [place] [phone] Bea Lacey MD [address] [place] [address] Gastroesophageal reflux disease without esophagitis Social History [...] AM EST Medication Management [facility] MED & PEDS [address] [place] [address] Mariely Dennison PharmD [address] [place] [address] 02/19/2025 2:00 PM EST Office Visit [facility] MED & PEDS [address] [place] [address] Cat Dumont CNP [address] [place] [address] 06/18/2025 1:30 PM EDT Office Visit [facility] ADULT DENTAL [address] [place] [address] Daniele Barlow documented as of this encounter Visit Diagnoses Diagnosis Gastroesophageal reflux disease without esophagitis Esophageal reflux documented in this encounter Additional Health Concerns Assessment Noted Time PHQ-9 Depression Total Score: 9 09/19/19 25 9:36 AM EDT documented as of this encounter Care Teams Cnc Manager Relationship Specialty Start Date End Date Bea Lacey MD [address] [place] [address] PCP - General Family Medicine 09/22/22 12/23/24 Cat Dumont CNP [address] [place] [address] PCP - General Family Medicine 12/24/24 Mariely Dennison PharmD [address] [place] [address] Pharmacist Internal Medicine 07/03/24 [facility] 11/09/24 documented as of this encounter
--- OUTSIDE RECORDS SUMMARY | 2025-01-02 16:40 | XMS_ITS | Encounter Summary ---
Author Organization [employer] Address 75 [facility] 7t [place] [address] Care Team Providers Care Confectionery Cooker Name Role Phone Bea Lacey MD Primary Care Provider [phone] Mariely Dennison PharmD Unavailable Cat Dumont CNP Primary Care Provider [phone] Reason for Visit * Reason Onset Date Comments Medication Question 06/20/2023 Encounter Details Date Type Department Care Team ([facility] st Contact Info) Description 06/20/2023 Telephone [facility] MEDICINE [address] [place], [place] [phone] Bea Lacey MD [address] [place], [place] [phone] Medication Question Social History Tobacco Use Types [...] [facility] MED & PEDS [address] [place] [address] Mariely Dennison PharmD [address] [place] [address] 02/19/2025 2:00 PM EST Office Visit [facility] MED & PEDS [address] [place] [address] Cat Dumont CNP [address] [place] [address] 06/18/2025 1:30 PM EDT Office Visit [facility] CHC ADULT DENTAL [address] [place] [address] Daniele Barlow documented as of this encounter Visit Diagnoses Not on filedocumented in this encounter Additional Health Concerns Assessment Noted Time PHQ-9 Depression Total Score: 20 024 10:22 AM EDT documented as of this encounter Care Teams Confectionery Cooker Relationship Specialty Start Date End Date Bea Lacey MD [address] [place] [address] PCP - General Family Medicine 09/22/22 12/23/24 Cat Dumont CNP [address] [place] [address] PCP - General Family Medicine 12/24/24 Mariely Dennison PharmD [address] [place] [address] Pharmacist Internal Medicine 07/03/24 [facility] 09/01/24 12/02/24 [facility] 11/09/24 documented as of this encounter
--- OUTSIDE RECORDS SUMMARY | 2025-01-02 16:40 | XMS_ITS | Encounter Summary ---
Author Organization [employer] Address 75 [facility] 7t [place] [address] Care Team Providers Care Psychiatric Secretary Name Role Phone Bea Lacey MD Primary Care Provider [phone] Mariely Dennison PharmD Unavailable [phone] Cat Dumont CNP Primary Care Provider [phone] Reason for Visit * Reason Onset Date Comments Med Refill 10/06/2023 Encounter Details Date Type Department Care Team (Late st Contact Info) Description 10/06/2023 Telephone [facility] [address] [place], [place] [phone] Bea Laecy MD [address] [place], [place] [phone] Med Refill Social History Tobacco Use Types [...] X 4 MM To be sent to: [facility] documented in this encounter Plan of Treatment Upcoming Encounters Date Type Department Care Team (Late st Contact Info) Description 01/08/2025 10:30 AM EST Medication Management [facility] MED & PEDS [address] [place] [address] Mariely Dennison, PharmD [address] [place] [address] 02/19/2025 2:00 PM EST Office Visit [facility] MED & PEDS [address] [place] [address] Cat Dumont CNP [address] [place] [address] 06/18/2025 1:30 PM EDT Office Visit [facility] ADULT DENTAL [address] [place] [address] Daniele Barlow documented as of this encounter Visit Diagnoses Not on filedocumented in this encounter Additional Health Concerns Assessment Noted Time PHQ-9 Depression Total Score: 20 024 10:22 AM EDT documented as of this encounter Care Teams Psychiatric Secretary Relationship Specialty Start Date End Date Bea Lacey MD [address] [place] [address] PCP - General Family Medicine 09/22/22 12/23/24 Cat Dumont CNP [address] [place] [address] PCP - General Family Medicine 12/24/24 Mariely Dennison PharmD [address] [place] [address] Pharmacist Internal Medicine 07/03/24 [facility] 09/01/24 12/02/24 [facility] 11/09/24 documented as of this encounter
--- OUTSIDE RECORDS SUMMARY | 2025-01-02 16:40 | XMS_ITS | Encounter Summary ---
Author Organization [employer] Address [address] [facility] 7t [place] [address] Care Team Providers Care Supervisor Research Shop Name Role Phone Gordon Mills MD Primary Care Prov ider Bea Lacey MD Primary Care Provider [phone] Mariely Dennison PharmD Unavailable [phone] Cat Dumont CNP Primary Care Provider [phone] Encounter Details Date Type Department Care Team (Latest Contact Info) Description 08/14/2020 Abstract [facility] CONVERSIONS Dental, Provider, DDS Social History [...] 10:30 AM EST Medication Management [facility] MED & PEDS [address] [place] [address] Mariely Dennison, PharmD [address] [place] [address] 02/19/2025 2:00 PM EST Office Visit [facility] MED & PEDS [address] [place] [address] Cat Dumont CNP [address] [place] [address] 06/18/2025 1:30 PM EDT Office Visit [facility] CHC ADULT DENTAL [address] [place] [address] Daniele Barlow documented as of this encounter Visit Diagnoses Not on filedocumented in this encounter Care Teams Supervisor Research Shop Relationship Specialty Start Date End Date Gordon Mills MD [address] [place] [address] PCP - General Internal Medicine 07/12/19 09/21/22 Bea Lacey MD [address] [place] [address] PCP - General Family Medicine 09/22/22 12/23/24 Cat Dumont CNP [address] [place] [address] PCP - General Family Medicine 12/24/24 Mariely Dennison PharmD [address] [place] [address] Pharmacist Internal Medicine 07/03/24 [facility] 09/01/24 12/02/24 [facility] 11/09/24 documented as of this encounter
--- OUTSIDE RECORDS SUMMARY | 2025-01-02 16:40 | XMS_ITS | Encounter Summary ---
Author Organization [employer] Address [address] [facility] 7t [place] [address] Care Team Providers Care Coffin Maker Name Role Phone DennisonJoanna bustilloscia PharmD Unavailable [phone] Cat Dumont CNP Primary Care Provider [phone] Reason for Visit * Reason Comments Med Refill Encounter Details Date Type Department Care Team ([facility] st Contact Info) Description 01/01/2025 Refill [facility] CHC MED & PEDS [address] [place], [place] [phone] Bea Lacey MD [address] [place], [place] [phone] Social History Tobacco Use Types Packs/Day Years [...] Description 01/08/2025 10:30 AM EST Medication Management [facility] MED & PEDS [address] [place] [address] Mariely Dennison, PharmD [address] [place] [address] 02/19/2025 2:00 PM EST Office Visit [facility] MED & PEDS [address] [place] [address] Cat Dumont CNP [address] [place] [address] 06/18/2025 1:30 PM EDT Office Visit [facility] ADULT DENTAL [address] [place] [address] Daniele Barlow documented as of this encounter Visit Diagnoses Not on filedocumented in this encounter Additional Health Concerns Assessment Noted Time PHQ-9 Depression Total Score: 9 09/19/19 25 9:36 AM EDT documented as of this encounter Care Teams Coffin Maker Relationship Specialty Start Date End Date Cat Dumont CNP [address] [place] [address] PCP - General Family Medicine 11/3/25 Mariely Dennison, [place] [address] [place] [address] Pharmacist Internal Medicine 07/03/24 [facility] 11/09/24 documented as of this encounter
--- OUTSIDE RECORDS SUMMARY | 2025-01-02 16:40 | XMS_ITS | Encounter Summary ---
Author Organization [employer] Address [address] [facility] 7t [place] [address] Care Team Providers Care Supply Officer Name Role Phone Bea Lacey MD Primary Care Provider [phone] Mariely Dennison PharmD Unavailable [phone] Cat Dumont CNP Primary Care Provider [phone] Reason for Visit * Reason Comments Med Refill Encounter Details Date Type Department Care Team ([facility] st Contact Info) Description 10/12/2022 Refill [facility] MED & PEDS [address] [place], [place] [phone] Gordon Mills MD [address] [place] [address] Chronic rhinitis Social History Tobacco Use Types [...] [facility] [address] [place] [address] Mariely Dennison PharmD [address] [place] [address] 02/19/2025 2:00 PM EST Office Visit [facility] MED & PEDS [address] [place] [address] Cat Dumont CNP [address] [place] [address] 06/18/2025 1:30 PM EDT Office Visit [facility] ADULT DENTAL [address] [place] [address] Daniele Barlow documented as of this encounter Visit Diagnoses Diagnosis Chronic rhinitis documented in this encounter Additional Health Concerns Assessment Noted Time PHQ-9 Depression Total Score: 7 05/29/19 10:45 AM EDT documented as of this encounter Care Teams Supply Officer Relationship Specialty Start Date End Date Bea Lacey MD [address] [place] [address] PCP - General Family Medicine 09/22/22 12/23/24 Cat Dumont CNP [address] [place] [address] PCP - General Family Medicine 12/24/24 Mariely Dennison PharmD [address] [place] [address] Pharmacist Internal Medicine 07/03/24 [facility] 09/01/24 12/02/24 [facility] 11/09/24 documented as of this encounter
--- OUTSIDE RECORDS SUMMARY | 2025-01-02 16:40 | XMS_ITS | Clinical Summary ---
Author Organization [employer] Address [address] [facility] 7t [place] [address] Care Team Providers Care Asset Protection Representative Name Role Phone Mariely Dennison PharmD Unavailable [phone] Cat Dumont CNP Primary Care Provider [phone] Allergies Active Allergy Reactions Criticality Noted Date [...] 024 Active Blood Glucose Monitoring Suppl (FreeStyle Alpine Lite) w/Device kit TEST BLOOD SUGAR DAILY [...] Glucose Sensor (FreeStyle Verito 3 Plus Sensor) [facility] [place] each every 15 days. 2 each 01/03/20 9:53 AM EST Active glucose blood (FreeStyle Precision Bon Test) [...] EVERY NIGHT AT BEDTIME 30 tablet 5 01/03/20 9:53 AM EST Active Kerendia 20 MG tablet Take 1 [...] mouth in the morning. 30 tablet 2 01/03/20 9:53 AM EST Active sennosides (Senokot) 8.6 MG tabletIndications :Constipation, unspecified constipation type Take 1 tablet (8.6 mg) by mouth at bedtime. 30 tablet 2 Active baclofen (Lioresal) 10 MG tabletIndications :Muscle spasm Take 1 tablet (10 mg) by mouth 3 times daily. 90 tablet 2 01/03/20 9:53 AM EST Active gabapentin (Neurontin) 100 MG capsuleIndication s:Pain Take 2 capsules (200 mg) in the morning and at noon and 3 capsules (300 mg) at bedtime 210 capsule 2 01/03/20 9:53 AM EST Active diclofenac sodium 3 % gelIndications:Pa in [...] ON AN EMPTY STOMACH 60 tablet 1 01/03/20 9:53 AM EST 2024 Active lubiprostone (Amitiza) 8 MCG capsuleIndication s:Irritable bowel syndrome with both constipation and diarrhea Take 1 capsule (8 mcg) by mouth with breakfast and with evening meal. 60 capsule 1 01/03/20 9:53 AM EST Active amoxicillin (Amoxil) 500 MG capsule Take 4 tabs (2 grams) 1 hour prior to dental procedure 12 capsule 01/03/20 9:53 AM EST Active pilocarpine (Salagen) 5 MG tabletIndications :Gastroesophageal reflux disease without esophagitis TAKE ONE TABLET IN THE MORNING AND EVENING 60 tablet 3 025 Active docusate sodium (Colace) 100 MG capsuleIndication s:Chronic idiopathic constipation TAKE ONE CAPSULE TWICE DAILY IN THE MORNING AND AT BEDTIME 60 capsule 3 01/03/20 25 9:53 AM EST 025 Active pseudoephedrine ER (Sudafed-12 Hour) 120 MG 12 hr tablet TAKE ONE TABLET EVERY TWELVE HOURS NEEDED FOR CONGESTION 60 tablet 025 Active pilocarpine (Salagen) 5 MG tabletIndications :Gastroesophageal reflux disease without esophagitis TAKE ONE TABLET IN THE MORNING AND EVENING 60 tablet 3 025 2024 Discontinued docusate sodium (Colace) 100 MG capsuleIndication s:Chronic idiopathic constipation TAKE ONE CAPSULE TWICE DAILY IN THE MORNING AND AT BEDTIME 60 capsule 3 025 2024 Discontinued lubiprostone (Amitiza) 8 MCG capsule Take 1 capsule by mouth 2 times daily. 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 On examination no warning signs Chronic abdominal [...] 3 secondary to diabetes 01/28/2022 CAD in [place] artery 01/28/2022 Type 2 diabetes mellitus wit [...] Date Diagnosed Date Resolved Date Benzodiazepine dependence ([facility]) 01/28/2022 08/05/2022 Continuous opioid dependence ([facility]) 01/28/2022 08/05/2022 Obstructive sleep apnea syndrome 01/28/2022 06/15/2024 Encounters * This document contains information received from the source organization and may not represent a complete record from that organization. Date Type Department Care Team Description 01/01/2025 Orders Only [facility] CHC MED & PEDS [address] [place] [address] Sari Rangel MD Type 2 diabetes mellitus with hyperglycemia, without long-term current use of insulin (HCC) (Primary Dx) 01/01/[address] [facility] MED & PEDS [address] [place] [address] Bea Lacey MD 12/31/2024 Telephone [facility] MEDICINE [address] [place] [address] Cat Dumont CNP 12/28/[address] [facility] MED & PEDS [address] [place] [address] Bea Lacey MD Gastroesophageal reflux disease without esophagitis; Chronic idiopathic constipation 12/27/2024 10:00 AM EST Office Visit [facility] ADULT DENTAL [address] [place] [address] Shyam Gillette, DDS 12/26/2024 2:00 PM EST Office Visit [facility] ADULT DENTAL [address] [place] [address] Shyam Gillette, DDS 12/26/[address] [facility] MED & PEDS [address] [place] [address] Cat Dumont CNP Call Back Request 12/24/2024 Telephone [facility] [address] [place] [address] Cat Dumont CNP call back requested 12/24/2024 Telephone [facility] [address] [place] [address] Katja Bassett, CRISTELA 12/19/2024 Orders Only [facility] MED & PEDS [address] [place] [address] Cat Dumont CNP Irritable bowel syndrome with both constipation and diarrhea (Primary Dx) 12/19/2024 Telephone [facility] [address] [place] [address] Bea Lacey MD Nurse Triage 12/18/2024 9:15 AM EDT Office Visit [facility] MED & PEDS [address] [place] [address] Cat Dumont CNP Essential tremor (Primary Dx); Type 2 diabetes mellitus with hyperglycemia, without long-term current use of insulin (HCC); Chronic right-sided low back pain without sciatica; Chronic pain in left shoulder 12/18/2024 Travel 12/17/[address] [facility] MED & PEDS [address] [place] [address] Bea Lacey MD chart prep 12/17/[address] [facility] MED & PEDS [address] [place] [address] Bea Lacey MD 12/14/2024 2:15 PM EDT Office Visit [facility] ADULT DENTAL [address] [place] [address] Daniele Barlow Dental calculus (Primary Dx) 12/03/[address] [facility] MED & PEDS [address] [place] [address] Bea Lacey MD 12/03/2024 Patient Outreach [facility] [address] [place] [address] Bea Lacey MD Care Coordination (Home Health Utilization) 12/03/[address] [facility] MED & PEDS [address] [place] [address] Bea Lacey MD Gastroesophageal reflux disease without esophagitis 11/27/[address] [facility] MED & PEDS [address] [place] [address] Bea Lacey MD Gastroesophageal reflux disease without esophagitis; Essential tremor 11/21/[address] [facility] MED & PEDS [address] [place] [address] Bea Lacey MD Vitamin D deficiency 11/20/2024 Orders Only [facility] MED & PEDS [address] [place] [address] Bea Lacey MD 11/20/[address] [facility] MED & PEDS [address] [place] [address] Bea Lacey MD 11/16/2024 Orders Only [facility] MED & PEDS [address] [place] [address] Cat Dumont CNP Constipation, unspecified constipation type (Primary Dx); CKD stage 3 secondary to diabetes ([facility]); Muscle spasm; Pain 11/16/2024 Telephone [facility] [address] [place] [address] Bea Lacey MD Appointment 11/16/[address] [facility] MED & PEDS [address] [place] [address] Bea Lacey MD 11/16/[address] [facility] MED & PEDS [address] [place] [address] Bea Lacey MD 11/15/2024 Telephone [facility] [address] [place] [address] Baylee De La Torre, PharmD 11/14/2024 Telephone [facility] [address] [place] [address] Bea Lacey MD 11/09/[address] [facility] MED & PEDS [address] [place] [address] Bea Lacey MD Call Back Request 11/06/2024 Patient Outreach [facility] [address] [place] [address] Bea Lacey MD Transition Of Care (Tcm) (HDF - scheduled (direct)) 10/26/2024 Telephone [facility] [address] [place] [address] Bea Lacey MD No Show 10/17/2024 Travel 10/17/[address] [facility] MED & PEDS [address] [place] [address] Bea Lacey MD No Show 10/16/2024 Telephone [facility] MED [facility] [address] [facility] [place] [address] Bea Lacey MD Chart Prep 10/08/[address] [facility] MED & PEDS [address] [facility] [place] [address] Bea Lacey MD Med reconciliation 10/08/2024 Telephone [facility] [address] [place] [address] Bea Lacey MD Appointment Request 10/05/[address] [facility] MED & PEDS [address] [facility] [place] [address] Bea Lacey MD fyi 10/03/2024 Patient Outreach [facility] MED & PEDS [address] [facility] [place] [address] Bea Lacey MD Transition Of Care (Tcm) [...] Free 10/31/2023,12/05/2017 Influenza, IIV3, injectable 10/31/2023,0 11/09/2022,12/03/2021,12/15,12/11/2019,11/02/2018,12/05/2017 ,12/28/2016,02/12/2016,11/25/2014,100 10/2013,04/26/2012,11/13/2010, 9,03/01/2008,01/07/2006 Influenza, Split (incl. elis fied surface [...] Description 01/08/2025 10:30 AM EST Medication Management [facility] MED & PEDS [address] [place] [address] Mariely Dennison, PharmD [address] [place] [address] 02/19/2025 2:00 PM EST Office Visit [facility] MED & PEDS [address] [place] [address] Cat Dumont, TYREE [address] [place] [address] 06/18/2025 1:30 PM EDT Office Visit [facility] CHC ADULT DENTAL [address] [place] [address] Daniele Barlow Health Maintenance Due Date Last Done Comments CT Colonography 1952 FIT DNA/Cologuard 1950 FIT 1950 FOBT 1950 Sigmoidoscopy 1950 Hepatitis A Vaccines (1 of 2 - Risk 2-dose series) 05/01/1971 RSV Patients and Patients Aged 60 years or older (1 - Risk 50-74 years 1-dose series) 2002 Diabetes: Foot Exam 11/10/2023 11/09/2022, 11/09/2022, 11/09/2022, [...] AM EST Narrative 01/01/2025 10:40 AM EST [address] [address] XRay Report Signed Patient: Malik Maki MR#: [id number] 2 : 1950 Acct:[id number] Age/Sex: 74 / M ADM Date: 01/01/25 Loc: [facility] Attending Dr: Chino Gates MD Ordering Physician: Chino Gates MD Date of Service: 01/01/25 Procedure(s): XR hips DI min 3V Accession Number(s): [id number] cc: Chino Gates MD; Cat Dumont NP [...] iliac bone no fully included in the otgyb-ro-anuk. XR/XR hips DI min 3V IMPRESSION: No acute fracture or dislocation. No gross degenerative changes. Prior surgical procedure. Electronically signed by: Sulaiman Pichardo MD 01/01/2025 10:37 AM EST Dictated By: Sulaiman Mae MD Signed By: <Electronically signed by Sulaiman Buchanan MD in OV> 01/01/25 1037 DD/ 1018 TD/TT: 01/01/25 1024 Corporate Communications Associate: Procedure Note Donotuseinterpreter, Image - 01/01/2025 [place] [address] XRay Report Signed Patient: Malik Maki R#: [id number] 2 : 1950cct:[id number] Age/Sex: 74 / MADM Date: 01/01/25 Loc: [facility] Attending Dr: Chino Gates MD Ordering Physician: Chino Gates MD Date of Service: 01/01/25 Procedure(s): XR hips DI min 3V Accession Number(s): [id number] cc: Chino Gates MD; Cat Dumont NP [...] iliac bone no fully included in the mwaco-dg-qtqt. XR/XR hips DI min 3V IMPRESSION: No acute fracture or dislocation. No gross degenerative changes. Prior surgical procedure. Electronically signed by: Sulaiman Pichardo MD 01/01/2025 10:37 AM EST Dictated By: Sulaiman Mae MD Signed By: <Electronically signed by Sulaiman Buchanan MDin OV> 01/01/25 1037 DD/ 1018 TD/TT: 01/01/25 1024 Corporate Communications Associate: [facility] External Provider IMG XR PROCEDURES Edited Result - Final * (ABNORMAL) POCT A1c (12/18/2024 9:39 AM EDT) Pathologist [facility] Hemoglobin A1C 6.6(A) 4.0 - 5.7 % QC Media Lot # Comment:[id number] Lot# Expiration Date Comment:06/14/2026 Blood 12/18/2024 9:39 AM EDT [facility] POINT OF CARE TEST ENTER/ EDIT ORDERABLES Final Result * (ABNORMAL) POCT glucose manually resulted (12/18/2024 9:38 AM EDT) Pathologist [facility] Glucose Blood, POC 257(A) 60 - 200 mg/dL QC Media Lot # Comment:[id number] Lot# Expiration Date Comment:03/31/2025 Blood Capillary blood specimen / Unknown 12/18/2024 9:38 AM EDT [facility] POINT OF CARE TEST ENTER/ EDIT ORDERABLES Final Result * Hm Diabetes Eye Exam (06/28/2024 11:09 AM EDT) Historical Provider HEALTH MAINTENANCE Final Result * Lipid Panel, Standard (11/10/2023 11:22 AM EDT) Triglycerides 76 <150 mg/dL [facility] Comment:Desirable Triglyceri de: less than 150 mg/dLBorderline High Triglyceride 150-199 mg/dLHigh Triglyceride: 200-499 mg/dLVery High Triglyceride: greater than or equal to 5OO mg/dL Cholesterol 110 <200 mg/dL [facility] Comment:Desirable Cholestero l: less than 200 mg/dLBorderline High Cholesterol: 200-239 mg/dLHigh Cholesterol: greater than 239 mg/dL LDL Cholesterol Calculated 50 <100 mg/dL [facility] Comment:Desirable LDL: less than 100 mg/dLNear Optimal/Above Optimal LDL: 110- 129 mg/dLBorderline High LDL: 130-159 mg/dLHigh LDL: 160-189 mg/dLVery High LDL: greater than or equal to 190 mg/dL HDL Cholesterol 45 >40 mg/dL [facility] Comment:Desirable HDL: great er than 40 mg/dL Note: This HDL assay may give artificially low results in patients with liver disease. Blood Venous blood specimen / Unknown 11/10/2023 11:22 AM EDT 11/10/2023 2:56 PM EDT Bea Lacey MD LAB BLOOD ORDERABLES Final Resul t [facility] [address] [place] [phone] * HEPATITIS C AB W/REFL TO HCV RNA, QN, PCR (10/15/2019 1:23 PM EDT) HEPATITIS C ANTIBODY NON-REACT [facility] NON-REACT [facility] INDEX 0.01 <1.00 [facility] Comment: HCV antibody was non-reactive. There is no laboratory evidence of HCV infection. In most cases, no further action is required. However, if recent HCV exposure is suspected, a test for HCV RNA (test code 67246) is suggested. For additional information please refer to http://education.[employer].com/faq/GAK24b1 (This link is being provided for informational/ educational purposes only.) 10/15/2019 1:23 PM EDT Gordon Rocha MD HISTORICAL/NON ORD ERABLE LABS Final Result [facility] [address] * Hm Colonoscopy (03/14/2014 12:17 PM EST) Historical Provider HEALTH MAINTENANCE Final Result from Last 3 Months or Most Recently Relevant to Health Maintenance Insurance MEDICARE Member Subscriber Plan / Payer (Ef fective 2022-Present) Name:Malik Maki Member ID:[id number] Relation to Subscriber:Self Name:Malik Maki Subscriber ID:[id number] Payer ID:STATE Group ID:Not on file Type:Medicare Address: [facility] [address] [address] [facility] MEDICAID STAND ADULT Care Teams Asset Protection Representative Relationship Specialty Start Date End Date Cat Dumont CNP [address] [facility] [place] [facility] [place] [address] PCP - General Family Medicine 12/24/24 Mariely Dennison PharmD [address] [place] [address] Pharmacist Internal Medicine 07/03/24 [facility] 11/09/24
--- OUTSIDE RECORDS SUMMARY | 2025-01-02 16:40 | XMS_ITS | Encounter Summary ---
Author Organization [email or web address] Address [address] [facility] 7t [place] [address] Care Team Providers Care Aircraft Structural Design Engineer Name Role Phone Juma Mariely PharmD Unavailable Cat Dumont CNP Primary Care Provider [phone] Reason for Visit * Reason Onset Date Comments Call Back Request 12/26/2024 Encounter Details Date Type Department Care Team ([facility] st Contact Info) Description 12/26/2024 Telephone [facility] MED & PEDS [address] [place], [place] [phone] Cat Dumont CNP [address] [place], [place] [phone] Call Back Request Social History Tobacco Use [...] a mistake with medications Contact pt at [phone] documented in this encounter Plan of Treatment Upcoming Encounters Date Type Department Care Team ([facility] st Contact Info) Description 01/08/2025 10:30 AM EST Medication Management [facility] MED & PEDS [address] [place] [address] Mariely Dennison, PharmD [address] [place] [address] 02/19/2025 2:00 PM EST Office Visit [facility] MED & PEDS [address] [place] [address] Cat Dumont CNP [address] [place] [address] 06/18/2025 1:30 PM EDT Office Visit [facility] ADULT DENTAL [address] [place] [address] Daniele Barlow documented as of this encounter Visit Diagnoses Not on filedocumented in this encounter Additional Health Concerns Assessment Noted Time PHQ-9 Depression Total Score: 9 09/19/19 25 9:36 AM EDT documented as of this encounter Care Teams Aircraft Structural Design Engineer Relationship Specialty Start Date End Date Cat Dumont CNP [address] [place] [address] PCP - General Family Medicine 12/24/24 Mariely Dennison PharmD [address] [place] [address] Pharmacist Internal Medicine 07/03/24 [facility] 11/09/24 documented as of this encounter
--- OUTSIDE RECORDS SUMMARY | 2025-01-02 16:40 | XMS_ITS | Encounter Summary ---
Author Organization [email or web address] Address 75 [facility] 7t [place] [address] Care Team Providers Care Fitting Room Supervisor Name Role Phone Mariely Dennison PharmD Unavailable [phone] Cat Dumont CNP Primary Care Provider [phone] Encounter Details Date Type Department Care Team (Late st Contact Info) Description 12/31/2024 Telephone [facility] MEDICINE [address] [place], [place] [phone] Cat Dumont CNP [address] [place], [place] [phone] Social History Tobacco Use Types Packs/Day Years [...] for this patient to continue care in [facility] - Diabetes clinic. Please send at your earliest convenience. documented in this encounter Plan of Treatment Upcoming Encounters Date Type Department Care Team (Late st Contact Info) Description 01/08/2025 10:30 AM EST Medication Management [facility] MED & PEDS [address] [place] [address] Mariely Dennison, PharmD 230 [place] [address] 02/19/2025 2:00 PM EST Office Visit [facility] MED & PEDS [address] [place] [address] Cat Dumont CNP 505 [place] [address] 06/18/2025 1:30 PM EDT Office Visit [facility] ADULT DENTAL [address] [place] [address] Daniele Barlow documented as of this encounter Visit Diagnoses Not on filedocumented in this encounter Additional Health Concerns Assessment Noted Time PHQ-9 Depression Total Score: 9 09/19/19 25 9:36 AM EDT documented as of this encounter Care Teams Fitting Room Supervisor Relationship Specialty Start Date End Date Cat Dumont CNP 505 [place] [address] PCP - General Family Medicine 12/24/24 Mariely Dennison PharmD [address] [place] [address] Pharmacist Internal Medicine 07/03/24 [facility] 11/09/24 documented as of this encounter
--- OUTSIDE RECORDS SUMMARY | 2025-01-02 16:40 | XMS_ITS | Encounter Summary ---
Author Organization [facility] Address [address] [place] [address] Care Team Providers Care Carton Maker Name Role Phone Bea Lacey MD Primary Care Provider [phone] Encounter Details Date Type Department Care Team (Late st Contact Info) Description 11/04/2024 Lab Requisition [facility] - Main Lab [address] [place] [address] Lupe Cruz MD [address] [id number] Anemia, unspecified; Other disorders of electrolyte and [...] LAB CHEMISTRY METHOD 11/05/2024 2:08 PM EDT [facility] Potassium 4.1 3.5 - 5.5 mmol/L LAB CHEMISTRY METHOD 11/05/2024 2:08 PM [facility] Chloride 106 96 - 110 mmol/L LAB CHEMISTRY METHOD 11/05/2024 2:08 PM [facility] CO2 29 21 - 32 mmol/L LAB CHEMISTRY METHOD 11/05/2024 2:08 PM [facility] Anion Gap 5 3 - 11 LAB CHEMISTRY METHOD 11/05/2024 2:08 PM [facility] Glucose 124(H) 70 - 100 mg/dL LAB CHEMISTRY METHOD 11/05/2024 2:08 PM [facility] BUN 12 5 - 25 mg/dL LAB CHEMISTRY METHOD 11/05/2024 2:08 PM [facility] Creatinine 0.83 0.70 - 1.30 mg/dL LAB CHEMISTRY METHOD 11/05/2024 2:08 PM [facility] eGFR 93 >=60 mL/min/1. 73m2 LAB CHEMISTRY METHOD 11/05/2024 2:08 PM [facility] Comment:Calculation based on the Chronic Kidney Disease Epidemiology Collaboration (CKD-EPI) equation refit without adjustment for race. BUN/Creatinine Ratio 14.5 LAB CHEMISTRY METHOD 11/05/2024 2:08 PM [facility] Calcium 8.5 8.5 - 10.5 mg/dL LAB CHEMISTRY METHOD 11/05/2024 2:08 PM [facility] AST (SGOT) 21 10 - 42 unit/L LAB CHEMISTRY METHOD 11/05/2024 2:08 PM [facility] ALT (SGPT) 24 10 - 60 unit/L LAB CHEMISTRY METHOD 11/05/2024 2:08 PM [facility] Alkaline Phosphatase 124(H) 42 - 121 unit/L LAB CHEMISTRY METHOD 11/05/2024 2:08 PM [facility] Total Protein 6.0 6.0 - 8.0 g/dL LAB CHEMISTRY METHOD 11/05/2024 2:[address] [facility] Albumin 3.1(L) 3.2 - 5.0 g/dL LAB CHEMISTRY METHOD 11/05/2024 2:[address] [facility] Total Bilirubin 0.4 0.0 - 1.4 mg/dL LAB CHEMISTRY METHOD 11/05/2024 2:[address] [facility] Blood Venous blood specimen / Unknown Venipuncture / Unknown 11/05/2024 6:38 AM EDT 11/05/2024 11:53 AM EDT us Lupe Cruz MD LAB BLOOD ORDERABLES Fin al Result [facility] [address] [place] [address], * (ABNORMAL) Complete blood count (11/05/2024 6:38 AM EDT) WBC 4.6(L) 4.8 - 10.8 K/mcL LAB HEMETOLOGY [facility] RBC 4.80 4.50 - 5.50 M/mcL LAB HEMETOLOGY METHOD 11/05/2024 1:08 PM [facility] Hemoglobin 12.6(L) 13.5 - 17.5 g/dL LAB HEMETOLOGY METHOD 11/05/2024 1:[address] [facility] Hematocrit 41.3(L) 42.0 - 54.0 % LAB HEMETOLOGY METHOD 11/05/2024 1:[address] [facility] MCV 85.9 79.0 - 98.0 FL LAB HEMETOLOGY METHOD 11/05/2024 1:08 PM [facility] MCH 26.2(L) 27.0 - 32.0 pcg LAB HEMETOLOGY METHOD 11/05/2024 1:[address] [facility] MCHC 30.5(L) 32.0 - 37.0 g/dL LAB HEMETOLOGY METHOD 11/05/2024 1:[address] [facility] RDW 17.2(H) 11.0 - 15.0 % LAB HEMETOLOGY METHOD 11/05/2024 1:[address] [facility] Platelets 268 130 - 400 K/mcL LAB HEMETOLOGY METHOD 11/05/2024 1:[address] [facility] MPV 11.3(H) 7.0 - 11.0 FL LAB HEMETOLOGY METHOD 11/05/2024 1:[address] [facility] NRBC 0.0 <1.0 % LAB HEMETOLOGY METHOD 11/05/2024 1:[address] [facility] NRBC Absolute 0.00 <0.10 K/mcL LAB HEMETOLOGY METHOD 11/05/2024 1:[address] [facility] Blood Venous blood specimen / Unknown Venipuncture / Unknown 11/05/2024 6:38 AM EDT 11/05/2024 11:55 AM EDT us Lupe Cruz MD LAB BLOOD ORDERABLES Fin al Result [facility] [address] [place] [address], [place] [phone] documented in this encounter Visit Diagnoses Diagnosis Anemia, unspecified Other disorders of electrolyte and fluid balance, not elsewhere classified documented in this encounter Care Teams Carton Maker Relationship Specialty Start Date End Date Bea Lacey MD [address] [place] [address] PCP - General 04/04/23 documented as of this encounter
--- OUTSIDE RECORDS SUMMARY | 2025-01-02 16:40 | XMS_ITS | Encounter Summary ---
Author Organization [employer] Address 75 [facility] 7t [place] [address] Care Team Providers Care Patient Financial Rep Name Role Phone Bea Lacey MD Primary Care Provider [phone] Mariely Dennison PharmD Unavailable [phone] Cat Dumont CNP Primary Care Provider [phone] Reason for Visit * Reason Onset Date Comments Results 11/16/2023 Encounter Details Date Type Department Care Team ([facility] st Contact Info) Description 11/16/2023 Telephone [facility] MEDICINE 230 [place], [place] [phone] Bea Lacey MD [address] [place], [place] [phone] Results Social History Tobacco Use Types Packs/Day [...] PM EDT Tc from pt returning call. Intelligence Officer Basic advise previous message. Pt verbalizes understanding. * [...] results: Labs Date when done: 11/10/23 Facility: [facility] Labs documented in this encounter Plan of Treatment Upcoming Encounters Date Type Department Care Team (Late st Contact Info) Description 01/08/2025 10:30 AM EST Medication Management [facility] MED & PEDS [address] [place] [address] Mariely Dennison PharmD 230 [place] [address] 02/19/2025 2:00 PM EST Office Visit [facility]ED[facility] [address] [place] [address] Cat Dumont CNP 505 [place] [address] 06/18/2025 1:30 PM EDT Office Visit [facility] ADULT DENTAL [address] [place] [address] Daniele Barlow documented as of this encounter Visit Diagnoses Not on filedocumented in this encounter Additional Health Concerns Assessment Noted Time PHQ-9 Depression Total Score: 20 024 10:22 AM EDT documented as of this encounter Care Teams Patient Financial Rep Relationship Specialty Start Date End Date Bea Lacey MD [address] [place] [address] PCP - General Family Medicine 09/22/22 12/23/24 Cat Dumont CNP 505 [place] [address] PCP - General Family Medicine 12/24/24 Mariely Dennison PharmD 230 [place] [address] Pharmacist Internal Medicine 07/03/24 [facility] 09/01/24 12/02/24 [facility] 11/09/24 documented as of this encounter
--- OUTSIDE RECORDS SUMMARY | 2025-01-02 16:40 | XMS_ITS | Encounter Summary ---
Author Organization [employer] Address 75 [facility] 7t [place] [address] Care Team Providers Care Service Now Developer Name Role Phone Bea Lacey MD Primary Care Provider [phone] Mariely Dennison PharmD Unavailable Cat Dumont CNP Primary Care Provider [phone] Reason for Visit * Reason Comments Med Refill Encounter Details Date Type Department Care Team ([facility] Contact Info) Description 10/11/2022 Refill [facility] MED & PEDS [address] [place] [address] Bea Lacey MD 505 [place] [address] Chronic rhinitis Social History Tobacco Use Types [...] [facility] MED & PEDS [address] [place] [address] Mariely Dennison PharmD 230 [place] [address] 02/19/2025 2:00 PM EST Office Visit [facility] MED & PEDS [address] [place] [address] Cat Dumont CNP 505 [place] [address] 06/18/2025 1:30 PM EDT Office Visit [facility] ADULT DENTAL [address] [place] [address] Daniele Barlow documented as of this encounter Visit Diagnoses Diagnosis Chronic rhinitis documented in this encounter Additional Health Concerns Assessment Noted Time PHQ-9 Depression Total Score: 7 05/29/19 23 10:45 AM EDT documented as of this encounter Care Teams Service Now Developer Relationship Specialty Start Date End Date Bea Lacey MD [address] [place] [address] PCP - General Family Medicine 09/22/22 12/23/24 Cat Dumont CNP [address] [place] [address] PCP - General Family Medicine 12/24/24 Mariely Dennison PharmD 230 [place] [address] Pharmacist Internal Medicine 07/03/24 [facility] 09/01/24 12/02/24 [facility] 11/09/24 documented as of this encounter
--- OUTSIDE RECORDS SUMMARY | 2025-01-02 16:40 | XMS_ITS | Encounter Summary ---
Author Organization [employer] Address 75 [facility] 7t [place] [address] Care Team Providers Care Factory Superintendent Name Role Phone Bea Lacey MD Primary Care Provider [phone] Mariely Dennison PharmD Unavailable [phone] Cat Dumont CNP Primary Care Provider [phone] Reason for Visit * Reason Onset Date Comments Nurse Triage 11/08/2023 Encounter Details Date Type Department Care Team ([facility] st Contact Info) Description 11/08/2023 Telephone [facility] MED & PEDS [address] [place], [place] [phone] Bea Lacey MD 505 [place] [address] Nurse Triage Social History Tobacco Use Types [...] Miscellaneous Notes * Telephone Encounter - Jf Gonzaelz RN - 11/09/2023 3:55 PM EDT Please [...] accepted this outcome. Please contact pt at [phone] documented in this encounter Plan of Treatment Upcoming Encounters Date Type Department Care Team ([facility] Contact Info) Description 01/08/2025 10:30 AM EST Medication Management [facility] MED & PEDS [address] [place] [address] Mariely Dennison, PharmD 230 [place] [address] 02/19/2025 2:00 PM EST Office Visit [facility] MED & PEDS [address] [place], [place] [phone] Cat Dumont, TANK CARPENTER 505 [place] [address] 06/18/2025 1:30 PM EDT Office Visit [facility] ADULT DENTAL [address] [place] [address] Daniele Barlow documented as of this encounter Visit Diagnoses Not on filedocumented in this encounter Additional Health Concerns Assessment Noted Time PHQ-9 Depression Total Score: 20 024 10:22 AM EDT documented as of this encounter Care Teams Factory Superintendent Relationship Specialty Start Date End Date Bea Lacey MD 230 [place] [address] PCP - General Family Medicine 09/22/22 12/23/24 Cat Dumont CNP 505 [place] [address] PCP - General Family Medicine 12/24/24 Mariely Dennison PharmD 230 [place] [address] Pharmacist Internal Medicine 07/03/24 [facility] 09/01/24 12/02/24 [facility] 11/09/24 documented as of this encounter
--- OUTSIDE RECORDS SUMMARY | 2025-01-02 16:40 | XMS_ITS | Encounter Summary ---
Author Organization [employer] Address 75 [facility] 7t [place] [address] Care Team Providers Care Supervisor Bonding Name Role Phone Bea Lacey MD Primary Care Provider [phone] Mariely Dennison PharmD Unavailable [phone] Cat Dumont CNP Primary Care Provider [phone] Reason for Visit * Reason Onset Date Comments Med reconciliation 10/08/2024 Encounter Details Date Type Department Care Team ([facility] Contact Info) Description 10/08/2024 Telephone C [facility] MED [facility] PEDS [address] [place], [place] [phone] Bea Lacey MD 505 [place] [address] Med reconciliation Social History Tobacco Use Types [...] 3:26 PM EDT Tc from Marcy with [facility] requesting a call back for medication reconciliation andto discuss pain medication. Contact Marcy [phone] documented in this encounter Plan of Treatment Upcoming Encounters Date Type Department Care Team (Late st Contact Info) Description 01/08/2025 10:30 AM EST Medication Management [facility] MED & PEDS [address] [place] [address] Mariely Dennison, PharmD 230 [place] [address] 02/19/2025 2:00 PM EST Office Visit [facility] MED & PEDS [address] [place] [address] Cat Dumont, LOSS PREVENTION GUARD 505 [place] [address] 06/18/2025 1:30 PM EDT Office Visit [facility] ADULT DENTAL [address] [place] [address] Daniele Barlow documented as of this encounter Visit Diagnoses Not on filedocumented in this encounter Additional Health Concerns Assessment Noted Time PHQ-9 Depression Total Score: 9 09/19/19 25 9:36 AM EDT documented as of this encounter Care Teams Supervisor Bonding Relationship Specialty Start Date End Date Bea Lacey MD [address] [place] [address] PCP - General Family Medicine 09/22/22 12/23/24 Cat Dumont CNP [address] [place] [address] PCP - General Family Medicine 12/24/24 Mariely Dennison PharmD [address] [place] [address] Pharmacist Internal Medicine 07/03/24 [facility] 09/01/24 12/02/24 [facility] 11/09/24 documented as of this encounter
--- OUTSIDE RECORDS SUMMARY | 2025-01-02 16:40 | XMS_ITS | Encounter Summary ---
Author Organization [employer] Address 75 [facility] 7t [place] [address] Care Team Providers Care Seat Coverer Name Role Phone DennisonJoanna bustilloscia PharmD Unavailable [phone] Cat Dumont CNP Primary Care Provider [phone] Reason for Visit * Reason Comments Med Refill Encounter Details Date Type Department Care Team ([facility] st Contact Info) Description 12/28/2024 Refill [facility] CHC MED & PEDS [address] [place], [place] [phone] Bea Lacey MD 505 [place], [place] [phone] Gastroesophageal reflux disease without esophagitis; Chronic idiopathic [...] Description 01/08/2025 10:30 AM EST Medication Management [facility] MED & PEDS [address] [place] [address] Mariely Dennison, PharmD 230 [place] [address] 02/19/2025 2:00 PM EST Office Visit [facility] MED & PEDS [address] [place] [address] Cat Dumont CNP 505 [place] [address] 06/18/2025 1:30 PM EDT Office Visit [facility] ADULT DENTAL [address] [place] [address] Daniele Barlow documented as of this encounter Visit Diagnoses Diagnosis Gastroesophageal reflux disease without esophagitis Esophageal reflux Chronic idiopathic constipation Unspecified constipation documented in this encounter Additional Health Concerns Assessment Noted Time PHQ-9 Depression Total Score: 9 09/19/19 25 9:36 AM EDT documented as of this encounter Care Teams Seat Coverer Relationship Specialty Start Date End Date Cat Dumont CNP [address] [place] [address] PCP - General Family Medicine 12/24/24 Mariely Dennison PharmD [address] [place] [address] Pharmacist Internal Medicine 07/03/24 [facility] 11/09/24 documented as of this encounter
--- OUTSIDE RECORDS SUMMARY | 2025-01-02 16:40 | XMS_ITS | Encounter Summary ---
Author Organization [employer] Address 75 [facility] 7t [place] [address] Care Team Providers Care Curriculum Development Specialist Name Role Phone Bea Lacey MD Primary Care Provider [phone] Mariely Dennison PharmD Unavailable [phone] Cat Dumont CNP Primary Care Provider [phone] Encounter Details Date Type Department Care Team (Late st Contact Info) Description 07/14/2023 Orders Only [facility] CHC MED & PEDS [address] [place], [place] [phone] ProviderTia MD Social History Tobacco Use Types [...] [facility] [address] [place] [address] Mariely Dennison, PharmD [address] [place], [place] [address] 02/19/2025 2:00 PM EST Office Visit [facility] MED & PEDS [address] [place] [address] Cat Dumont, X RAY SERVICE ENGINEER [address] [place] [address] 06/18/2025 1:30 PM EDT Office Visit [facility] ADULT DENTAL [address] [place] [address] Daniele Barlow documented as of this encounter [...] documented as of this encounter Care Teams Curriculum Development Specialist Relationship Specialty Start Date End Date Bea Lacey MD [address] [place] [address] PCP - General Family Medicine 09/22/22 12/23/24 Cat Dumont CNP [address] [place] [address] PCP - General Family Medicine 12/24/24 Mariely Dennison PharmD [address] [place] [address] Pharmacist Internal Medicine 07/03/24 [facility] 09/01/24 12/02/24 [facility] 11/09/24 documented as of this encounter
--- OUTSIDE RECORDS SUMMARY | 2025-01-02 16:41 | XMS_ITS | Encounter Summary ---
Author Organization [employer] Address 75 [facility] 7t [place] [address] Care Team Providers Care Wood Preserving Plant Laborer Name Role Phone Bea Lacey MD Primary Care Provider [phone] Mariely Dennison PharmD Unavailable [phone] Cat Dumont CNP Primary Care Provider [phone] Reason for Visit * Reason Onset Date Comments Results 03/30/2023 Encounter Details Date Type Department Care Team ([facility] st Contact Info) Description 03/30/2023 Telephone [facility] MEDICINE 230 [place], [place] [phone] Bea Lacey MD [address] [place], [place] [phone] Results Social History Tobacco Use Types Packs/Day [...] 10:30 AM EST Medication Management [facility] MED & PEDS [address] [place] [address] Mariely Dennison PharmD 230 [place] [address] 02/19/2025 2:00 PM EST Office Visit [facility] MED & PEDS [address] [place] [address] Cat Dumont CNP 505 [place] [address] 06/18/2025 1:30 PM EDT Office Visit [facility] ADULT DENTAL [address] [place] [address] Daniele Barlow documented as of this encounter Visit Diagnoses Not on filedocumented in this encounter Additional Health Concerns Assessment Noted Time PHQ-9 Depression Total Score: 7 05/29/19 23 10:45 AM EDT documented as of this encounter Care Teams Wood Preserving Plant Laborer Relationship Specialty Start Date End Date Bea Lacey MD 230 [place] [address] PCP - General Family Medicine 09/22/22 12/23/24 Cat Dumont CNP [address] [place] [address] PCP - General Family Medicine 12/24/24 Mariely Dennison PharmD 230 [place] [address] Pharmacist Internal Medicine 07/03/24 [facility] 09/01/24 12/02/24 [facility] 11/09/24 documented as of this encounter
--- OUTSIDE RECORDS SUMMARY | 2025-01-02 16:41 | XMS_ITS | Encounter Summary ---
Author Organization [employer] Address 75 [facility] 7t [place] [address] Care Team Providers Care Social Work Administrator Name Role Phone Bea Lacey MD Primary Care Provider [phone] Mariely Dennison PharmD Unavailable [phone] Cat Dumont CNP Primary Care Provider [phone] Reason for Visit * Reason Onset Date Comments Nurse Triage 03/05/2024 Encounter Details Date Type Department Care Team ([facility] st Contact Info) Description 03/05/2024 Telephone C [facility] MED [facility]EDS [address] [place], [place] [phone] Bea Lacey MD 505 [place] [address] Nurse Triage Social History Tobacco Use Types [...] [facility] MED & PEDS [address] [place] [address] Mariely Dennison, PharmD 230 [place], [place] [phone] 02/19/2025 2:00 PM EST Office Visit [facility] MED & PEDS [address] [place] [address] Cat Dumont CNP 505 [place] [address] 06/18/2025 1:30 PM EDT Office Visit [facility] ADULT DENTAL [address] [place] [address] Daniele Barlow documented as of this encounter Visit Diagnoses Not on filedocumented in this encounter Additional Health Concerns Assessment Noted Time PHQ-9 Depression Total Score: 20 024 10:22 AM EDT documented as of this encounter Care Teams Social Work Administrator Relationship Specialty Start Date End Date Bea Lacey MD [address] [place] [address] PCP - General Family Medicine 09/22/22 12/23/24 Cat Dumont CNP 505 [place] [address] PCP - General Family Medicine 12/24/24 Mariely Dennison PharmD 230 [place] [address] Pharmacist Internal Medicine 07/03/24 [facility] 09/01/24 12/02/24 [facility] 11/09/24 documented as of this encounter
--- OUTSIDE RECORDS SUMMARY | 2025-01-02 16:41 | XMS_ITS | Encounter Summary ---
Author Organization [employer] Address 75 [facility] 7t [place] [address] Care Team Providers Care Agriculture Inspector Name Role Phone Bea Lacey MD Primary Care Provider [phone] Mariely Dennison PharmD Unavailable Cat Dumont CNP Primary Care Provider [phone] Reason for Visit * Reason Comments Med Refill Encounter Details Date Type Department Care Team ([facility] st Contact Info) Description 02/06/2024 Refill [facility] DIABETES/NUTRITION 230 [place] [address] Bea Lacey MD [address] [place], [place] [phone] Type 2 diabetes mellitus with hyperglycemia, without long-term current use of insulin ([facility]) Social History Tobacco Use Types [...] [facility] MED & PEDS [address] [place] [address] Mariely Dennison, PharmD 230 [place] [address] 02/19/2025 2:00 PM EST Office Visit [facility] MED & PEDS [address] [place] [address] Cat Dumont, FRAME POLISHER 505 [place] [address] 06/18/2025 1:30 PM EDT Office Visit [facility] ADULT DENTAL [address] [place] [address] Daniele Barlow documented as of this encounter Visit Diagnoses Diagnosis Type 2 diabetes mellitus with hyperglycemia, without long-term current use of insulin (HCC) documented in this encounter Additional Health Concerns Assessment Noted Time PHQ-9 Depression Total Score: 20 024 10:22 AM EDT documented as of this encounter Care Teams Agriculture Inspector Relationship Specialty Start Date End Date Bea Lacey MD 230 [place] [address] PCP - General Family Medicine 09/22/22 12/23/24 Cat Dumont CNP [address] [place] [address] PCP - General Family Medicine 12/24/24 Mariely Dennison PharmD 230 [place] [address] Pharmacist Internal Medicine 07/03/24 [facility] 09/01/24 12/02/24 [facility] 11/09/24 documented as of this encounter
--- OUTSIDE RECORDS SUMMARY | 2025-01-02 16:41 | XMS_ITS | Encounter Summary ---
Author Organization [employer] Address [address] 7t [place] [address] Care Team Providers Care Creative Writing Teacher Name Role Phone Bea Lacey MD Primary Care Provider [phone] Mariely Dennison PharmD Unavailable [phone] Cat Dumont CNP Primary Care Provider [phone] Reason for Visit * Reason Onset Date Comments Nurse Triage 04/03/2024 Encounter Details Date Type Department Care Team ([facility] st Contact Info) Description 04/03/2024 Telephone [facility] MEDICINE [address] [place], [place] [phone] Bea Lacey MD [address] [place], [place] [phone] Nurse Triage Social History Tobacco Use Types [...] Notes * Telephone Encounter - Nita Wilson, PLASTIC PROCESS TECHNICIAN - 04/03/2024 1:21 PM EST Triage call [...] and is followed by Pain management at [facility] Has not notified that Dept at this [...] a new brain surgery on 04/05/24 at [facility]. Disposition reviewed and patient in agreement with plan. Will call to follow with appt. scheduling when recovered from procedure at [facility]. Patient requests that PCP be updated. Forwarded to PCP as patient requested. Protocol Used: Chest Pain (Adult) Protocol-Based Disposition: See in Office or Video Visit Today Override (Final) Disposition: Refer to Specialist Override Reason: Caller refused suggested disposition Override Notes: Patient followed by [facility] Pain Management but wants PCP updated Video [...] acuity questions The caller accepted this outcome. [phone] documented in this encounter Plan of Treatment Upcoming Encounters Date Type Department Care Team (Late st Contact Info) Description 01/08/2025 10:30 AM EST Medication Management [facility] MED & PEDS [address] [place] [address] Mariely Dennison, PharmD 230 [place] [address] 02/19/2025 2:00 PM EST Office Visit [facility] MED & PEDS [address] [place] [address] Cat Dumont, COMPUTER AIDED DESIGN DESIGNER 505 [place] [address] 06/18/2025 1:30 PM EDT Office Visit [facility] ADULT DENTAL [address] [place] [address] Daniele Barlow documented as of this encounter Visit Diagnoses Not on filedocumented in this encounter Additional Health Concerns Assessment Noted Time PHQ-9 Depression Total Score: 20 024 10:22 AM EDT documented as of this encounter Care Teams Creative Writing Teacher Relationship Specialty Start Date End Date Bea Lacey MD [address] [place] [address] PCP - General Family Medicine 09/22/22 12/23/24 Cat Dumont CNP 505 [place] [address] PCP - General Family Medicine 12/24/24 Mariely Dennison PharmD 230 [place] [address] Pharmacist Internal Medicine 07[facility]03[facility] 11/09/24 documented as of this encounter
--- OUTSIDE RECORDS SUMMARY | 2025-01-02 16:41 | XMS_ITS | Clinical Summary ---
Author Organization [facility] Address [address] [address] Phone Care Team Providers Care Parole Supervisor Name Role Phone Lula Lacey MD Primary Care Provider [phone] Allergies Active Allergy Reactions Criticality Noted Date [...] and 250 mg before bedtime. Active Methylnaltrexone Pollock (Relistor) 150 MG tablet Take by mouth [...] Encounters Date Type Department Care Team Description 12/25/2024 Orders Only [facility] [address] [address] Get Galo MD Chronic kidney disease stage 2; Essential tremor 12/22/2024 Orders Only [facility] [address] [phone] Jeri Keller ARNP Stage 3a chronic kidney disease (HCC); Hypertension; Nephrolithiasis 10/15/2024 Orders Only [facility] [address] [address] Jeri Keller ARNP from Last 3 Months [...] Upcoming Encounters Date Type Department Care Team ([facility] st Contact Info) Description 01/30/2025 1:00 PM EST Office Visit [facility] [address] [address] Get Galo MD [address] [phone] Health Maintenance Due Date Last Done Comments [...] Creatinine, Ur 75.4 Not Estab. mg/dL [facility] Protein, Ur 9.4 Not Estab. mg/dL [facility] Urine Protein/Creatin ine Ratio 125 0 - 200 mg/g creat [facility] 12/12/2024 2:47 PM EDT 12/12/2024 Jeri LAWRENCEP LAB URINE ORDERABLES Final Result [facility] [address] [place] [address] * Urine Albumin / Creatinine Ratio (12/12/2024 2:47 PM EDT) Albumin, Urine <3.0 Not Estab. ug/mL [facility] Albumin/Creatin ine Ratio <4 0 - 29 mg/g creat [facility] Comment: Normal: 0 - 29 Moderately increased: 30 - 300 Severely increased: >300 12/12/2024 2:47 PM EDT 12/12/2024 [facility] LAB URINE ORDERABLES Final Result Performing Organization Address City/[facility]/ZIP Co de Phone Number [facility] [address] [place] [address] * (ABNORMAL) CBC (12/12/2024 2:47 PM EDT) WBC 5.7 3.4 - 10.8 x10E3/uL [facility] RBC 4.40 4.14 - 5.80 x10E6/uL [facility] Hemoglobin 11.8(L) 13.0 - 17.7 g/dL [facility] Hematocrit 38.0 37.5 - 51.0 % [facility] MCV 86 79 - 97 fL [facility] MCH 26.8 26.6 - 33.0 pg [facility] MCHC 31.1(L) 31.5 - 35.7 g/dL [facility] RDW 15.7(H) 11.6 - 15.4 % [facility] Platelets 252 150 - 450 x10E3/uL [facility] 12/12/2024 2:47 PM EDT 12/12/2024 [facility] LAB BLOOD ORDERABLES Final Result Performing Organization Address City/[facility]/ZIP Co de Phone Number [facility] [address] [place] [address] * PTH, Intact (12/12/2024 2:47 PM EDT) Only the most recent of2 resultswithin the time period is included. PTH 27 15 - 65 pg/mL [facility] 12/12/2024 2:47 PM EDT 12/12/2024 Jeri Keller [facility] LAB BLOOD ORDERABLES Final Result [facility] [address] [place] [address] * (ABNORMAL) Renal Function Panel (12/12/2024 2:47 PM EDT) Only the most recent of2 resultswithin the time period is included. Glucose 108(H) 70 - 99 mg/dL [facility] BUN 18 8 - 27 mg/dL [facility] Creatinine 0.87 0.76 - 1.27 mg/dL [facility] eGFR CKD-EPI CR 2020 92 >59 mL/min/1.7 3 [facility] BUN/Creatinine Ratio 21 10 - 24 [facility] Sodium 143 134 - 144 mmol/L [facility] Potassium 4.3 3.5 - 5.2 mmol/L [facility] Chloride 106 96 - 106 mmol/L [facility] Bicarbonate (CO2) 21 20 - 29 mmol/L [facility] Calcium 8.6 8.6 - 10.2 mg/dL [facility] Albumin 4.1 3.8 - 4.8 g/dL [facility] Phosphorus 4.2(H) 2.8 - 4.1 mg/dL [facility] 12/12/2024 2:47 PM EDT 12/12/2024 Jeri Keller [facility] LAB BLOOD ORDERABLES Final Result [facility] [address] [place] [address] * (ABNORMAL) CBC and Differential (10/15/2024 5:04 PM EDT) [facility] WBC 5.9 3.4 - 10.8 x10E3/uL [facility] RBC 4.21 4.14 - 5.80 x10E6/uL [facility] Hemoglobin 10.8(L) 13.0 - 17.7 g/dL [facility] Hematocrit 36.1(L) 37.5 - 51.0 % [facility] MCV 86 79 - 97 fL [facility] MCH 25.7(L) 26.6 - 33.0 pg [facility] MCHC 29.9(L) 31.5 - 35.7 g/dL [facility] RDW 16.1(H) 11.6 - 15.4 % [facility] Platelets 262 150 - 450 x10E3/uL [facility] Neutrophils Relative 56 Not Estab. % [facility] Lymphocytes Relative 32 Not Estab. % [facility] Monocytes 8 Not Estab. % [facility] Eosinophils Relative 3 Not Estab. % [facility] Basophils Relative 1 Not Estab. % [facility] Neutrophils Absolute 3.3 1.4 - 7.0 x10E3/uL [facility] Lymphocytes Absolute 1.9 0.7 - 3.1 x10E3/uL [facility] Monocytes Absolute 0.5 0.1 - 0.9 x10E3/uL [facility] Eosinophils Absolute 0.2 0.0 - 0.4 x10E3/uL [facility] Basophils Absolute 0.0 0.0 - 0.2 x10E3/uL [facility] Immature Granulocytes 0 Not Estab. % [facility] Immature Grans (Absolute) 0.0 0.0 - 0.1 x10E3/uL [facility] 10/15/2024 5:04 PM EDT 10/15/2024 Jeri Keller [facility] LAB BLOOD ORDERABLES Final Result [facility] [address] [place] [address] * (ABNORMAL) Blood Panel (09/21/2018 12:00 AM [...] ug/dl RTAMA 09/21/2018 us [facility] Conversion LAB [id number] LICITED RESULTS Final Result RTAMA from Last 3 Months or Most Recently Relevant to Health Maintenance Insurance Medicare Medicaid [place] Medicare Medicaid [place] Care Teams Parole Supervisor Relationship Specialty Start Date End Date Lula Lacey MD [address] [place] [address] PCP - General Internal Medicine 01/25/24
--- OUTSIDE RECORDS SUMMARY | 2025-01-02 16:41 | XMS_ITS | Encounter Summary ---
Author Organization [employer] Address [address] 7t [place] [address] Care Team Providers Care Stevedore Hold Name Role Phone Bea Lacey MD Primary Care Provider [phone] Mariely Dennison PharmD Unavailable [phone] Cat Dumont CNP Primary Care Provider [phone] Reason for Visit * Reason Comments Med Refill Encounter Details Date Type Department Care Team ([facility] Contact Info) Description 03/30/2024 Refill [facility] CHC MED & PEDS [address] [place], [place] [phone] Bea Lacey MD 505 [place] [address] Essential tremor Social History Tobacco Use Types [...] 10:30 AM EST Medication Management [facility] MED & PEDS [address] [place] [address] Mariely Dennison, PharmD [address] [place] [address] 02/19/2025 2:00 PM EST Office Visit [facility] MED & PEDS [address] [place] [address] Cat Dumont CNP 505 [place] [address] 06/18/2025 1:30 PM EDT Office Visit [facility] ADULT DENTAL [address] [place] [address] Daniele Barlow documented as of this encounter Visit Diagnoses Diagnosis Essential tremor documented in this encounter Additional Health Concerns Assessment Noted Time PHQ-9 Depression Total Score: 20 024 10:22 AM EDT documented as of this encounter Care Teams Stevedore Hold Relationship Specialty Start Date End Date Bea Lacey MD [address] [place] [address] PCP - General Family Medicine 09/22/22 12/23/24 Cat Dumont CNP 505 [place] [address] PCP - General Family Medicine 12/24/24 Mariely Dennison PharmD [address] [place] [address] Pharmacist Internal Medicine 07[facility]03[facility]24 [facility]/02[facility]24 [facility] 11/09/24 documented as of this encounter
--- OUTSIDE RECORDS SUMMARY | 2025-01-02 16:41 | XMS_ITS | Patient Health Record ---
Author Organization [facility] Address [address] [place] [address] Care Team Providers Care Tick Eradicator Name Role Phone Jeri Stokes M.D. Primary Care Provider Madie vailable Markus Parker Unavailable [phone] Reason For Referral No Information Plan Of Treatment No Information Insurance Providers Payer Name Payer Address Payer Phone Subscriber Number Group Number Insured Name Patient Relationship to Insured Coverage Start Date Coverage End Date MEDICARE OF [facility][1] [address] [place] [id number] SHERLY VARGAS Self - patient is the insured
--- OUTSIDE RECORDS SUMMARY | 2025-01-02 16:41 | XMS_ITS | Encounter Summary ---
Author Organization [employer] Address [address] [facility] 7t [place] [address] Care Team Providers Care Utilization Review Rn Name Role Phone Bea Lacey MD Primary Care Provider [phone] Mariely Dennison PharmD Unavailable [phone] Cat Dumont CNP Primary Care Provider [phone] Reason for Visit * Reason Onset Date Comments Results 04/28/2023 Encounter Details Date Type Department Care Team ([facility] st Contact Info) Description 04/28/[address] [facility] MEDICINE [address] [place], [place] [phone] Bea Lacey MD [address], [place] [phone] Results Social History Tobacco Use Types Packs/Day [...] EST Medication Management [facility] MED & PEDS 505 [place] [address] Mariely Dennison, PharmD [address] [place] [address] 02/19/2025 2:00 PM EST Office Visit [facility] MED & PEDS 505 [place] [address] Cat Dumont CNP 505 [place] [address] 06/18/2025 1:30 PM EDT Office Visit [facility] ADULT DENTAL 505 [place] [address] Daniele Barlow documented as of this encounter Visit Diagnoses Not on filedocumented in this encounter Additional Health Concerns Assessment Noted Time PHQ-9 Depression Total Score: 7 05/29/19 23 10:45 AM EDT documented as of this encounter Care Teams Utilization Review Rn Relationship Specialty Start Date End Date Bea Lacey MD [address] [place] [address] PCP - General Family Medicine 09/22/22 12/23/24 Cat Dumont CNP [address] [place] [address] PCP - General Family Medicine 12/24/24 Mariely Dennison PharmD [address] [place] [address] Pharmacist Internal Medicine 07/03/24 [facility] 09/01/24 12/02/24 [facility] 11/09/24 documented as of this encounter
--- OUTSIDE RECORDS SUMMARY | 2025-01-02 16:41 | XMS_ITS | Encounter Summary ---
Author Organization [employer] Address [address] [facility] 7t [place] [address] Care Team Providers Care Pharmacy Customer Care Specialist Name Role Phone Gordon Mills MD Primary Care Prov ider Bea Lacey MD Primary Care Provider [phone] Mariely Dennison PharmD Unavailable [phone] Cat Dumont CNP Primary Care Provider [phone] Reason for Visit * Reason Comments Med Refill Encounter Details Date Type Department Care Team ([facility] Contact Info) Description 09/02/2022 Refill [facility] CHC MED & PEDS 505 [place], [place] [phone] Peter Barlow MD [address] [place] [address] Social History Tobacco Use Types Packs/Day Years [...] AM EST Medication Management [facility] MED & PEDS [address] [place] [address] Mariely Dennison PharmD 230 [place] [address] 02/19/2025 2:00 PM EST Office Visit [facility] MED & PEDS 505 [place] [address] Cat Dumont CNP [address] [place] [address] 06/18/2025 1:30 PM EDT Office Visit [facility] ADULT DENTAL 505 [place] [address] Daniele Barlow documented as of this encounter Visit Diagnoses Not on filedocumented in this encounter Additional Health Concerns Assessment Noted Time PHQ-9 Depression Total Score: 7 05/29/19 10:45 AM EDT documented as of this encounter Care Teams Pharmacy Customer Care Specialist Relationship Specialty Start Date End Date Gordon Mills MD 505 [place] [address] PCP - General Internal Medicine 07/12/19 09/21/22 Bea Lacey MD [address] [place] [address] PCP - General Family Medicine 09/22/22 12/23/24 Cat Dumont CNP [address] [place] [address] PCP - General Family Medicine 12/24/24 Mariely Dennison PharmD 230 [place] [address] Pharmacist Internal Medicine 07/03/24 [facility] 09/01/24 12/02/24 [facility] 11/09/24 documented as of this encounter
--- OUTSIDE RECORDS SUMMARY | 2025-01-02 16:41 | XMS_ITS | Encounter Summary ---
Author Organization [employer] Address [address] [facility] 7t [place] [address] Care Team Providers Care Field Kiln Burner Name Role Phone Gordon Mills MD Primary Care Prov ider Bea Lacey MD Primary Care Provider [phone] Mariely Dennison PharmD Unavailable [phone] Cat Dumont CNP Primary Care Provider [phone] Reason for Referral * Social Care Application (Routine) - Closed Specialty Diagnoses / Procedures Referred By Contac t Referred To Contact Diabetic / Diabetes Services Diagnoses Type 2 diabetes mellitus with hyperglycemia, without long-term current use of insulin (HCC) Peter Barlow MD [address] [place] [address] Phone: tel: fax: Referral ID Status Reason Start Date Expiration Date V isits Requested Visits Authorized [id number] Closed Specialty Services Required 09/02/2022 03/01/2023 1 1 Encounter Details Date Type Department Care Team (Late st Contact Info) Description 09/02/2022 Orders Only [facility] CHC MED & PEDS [address] [place], [place] [phone] Peter Barlow MD [address] [place], [place] [phone] Type 2 diabetes mellitus with hyperglycemia, without [...] [facility] 505 [place] [address] Mariely Dennison PharmD [address] [place] [address] 02/19/2025 2:00 PM EST Office Visit [facility] MED & PEDS 505 [place] [address] Cat Dumont MACHINE CERAMIC COATER [address] [place] [address] 06/18/2025 1:30 PM EDT Office Visit [facility] ADULT DENTAL 505 [place] [address] Daniele Barlow Scheduled Referrals Name Type Priority Associated Diagnoses Order Schedule Referral to Diabetes Prevention Program Outpatient Referral Routine Type 2 diabetes mellitus with hyperglycemia, without long-term current use of insulin ([facility]/HCC) Ordered: 09/02/2022 documented as of this encounter Visit Diagnoses Diagnosis Type 2 diabetes mellitus with hyperglycemia, without long-term current use of insulin (HCC)- Primary documented in this encounter Additional Health Concerns Assessment Noted Time PHQ-9 Depression Total Score: 7 04/07/20 23 10:45 AM EDT documented as of this encounter Care Teams Field Kiln Burner Relationship Specialty Start Date End Date Gordon Mills MD [address] [place] [address] PCP - General Internal Medicine 07/12/19 09/21/22 Bea Lacey MD [address] [place] [address] PCP - General Family Medicine 09/22/22 12/23/24 Cat Dumont CNP 505 [place] [address] PCP - General Family Medicine 12/24/24 Mariely Dennison PharmD 230 [place] [address] Pharmacist Internal Medicine 07/03/24 [facility] 09/01/24 12/02/24 [facility] 11/09/24 documented as of this encounter
--- OUTSIDE RECORDS SUMMARY | 2025-01-02 16:41 | XMS_ITS | Encounter Summary ---
Author Organization [employer] Address [address] [facility] 7t [place] [address] Care Team Providers Care Case Manager Name Role Phone Bea Lacey MD Primary Care Provider [phone] Mariely Dennison PharmD Unavailable [phone] Cat Dumont CNP Primary Care Provider [phone] Reason for Visit * Reason Onset Date Comments Medication Question 02/07/2023 Encounter Details Date Type Department Care Team ([facility] st Contact Info) Description 02/07/2023 Telephone [facility] MEDICINE 230 [place], [place] [phone] Bea Lacey MD [address] [place], [place] [phone] Medication Question Social History Tobacco Use Types [...] of Linzess and had the med lowered [id number] last month. Pt states diarrhea has stopped [...] [facility] MED & PEDS [address] [place] [address] Mariely Dennison, PharmD 230 [place] [address] 02/19/2025 2:00 PM EST Office Visit [facility] MED & PEDS 505 [place] [address] Cat Dumont CNP 505 [place] [address] 06/18/2025 1:30 PM EDT Office Visit [facility] CHC ADULT DENTAL [address] [place] [address] Daniele Barlow documented as of this encounter Visit Diagnoses Not on filedocumented in this encounter Additional Health Concerns Assessment Noted Time PHQ-9 Depression Total Score: 7 05/29/19 23 10:45 AM EDT documented as of this encounter Care Teams Case Manager Relationship Specialty Start Date End Date Bea Lacey MD [address] [place] [address] PCP - General Family Medicine 09/22/22 12/23/24 Cat Dumont CNP 505 [place] [address] PCP - General Family Medicine 12/24/24 Mariely Dennison PharmD 230 [place] [address] Pharmacist Internal Medicine 07/03/24 [facility] 09/01/24 12/02/24 [facility] 11/09/24 documented as of this encounter
--- OUTSIDE RECORDS SUMMARY | 2025-01-02 16:41 | XMS_ITS | Encounter Summary ---
Author Organization [employer] Address [address] [facility] 7t [place] [address] Care Team Providers Care Stitch Rubber Name Role Phone Bea Lacey MD Primary Care Provider [phone] Mariely Dennison PharmD Unavailable [phone] Cat Dumont CNP Primary Care Provider [phone] Reason for Visit * Reason Comments Med Refill Encounter Details Date Type Department Care Team ([facility] Contact Info) Description 03/16/2024 Refill [facility] CHC MED & PEDS 505 [place], [place] [phone] Bea Lacey MD 505 [place] [address] Social History Tobacco Use Types Packs/Day Years [...] AM EST Medication Management [facility] MED & PEDS [address] [place] [address] Mariely Dennison, PharmD 230 [place] [address] 02/19/2025 2:00 PM EST Office Visit [facility] MED & PEDS [address] [place] [address] Cat Dumont CNP [address] [place] [address] 06/18/2025 1:30 PM EDT Office Visit [facility] ADULT DENTAL [address] [place] [address] Daniele Barlow documented as of this encounter Visit Diagnoses Not on filedocumented in this encounter Additional Health Concerns Assessment Noted Time PHQ-9 Depression Total Score: 20 024 10:22 AM EDT documented as of this encounter Care Teams Stitch Rubber Relationship Specialty Start Date End Date Bea Lacey MD 230 [place] [address] PCP - General Family Medicine 09/22/22 12/23/24 Cat Dumont CNP [address] [place] [address] PCP - General Family Medicine 12/24/24 Mariely Dennison PharmD 230 [place] [address] Pharmacist Internal Medicine [facility] 11/09/24 documented as of this encounter
--- OUTSIDE RECORDS SUMMARY | 2025-01-02 16:41 | XMS_ITS | Encounter Summary ---
Author Organization [employer] Address [address] [facility] 7t [place] [address] Care Team Providers Care Student Nurse Name Role Phone Bea Lacey MD Primary Care Provider [phone] Mariely Dennison PharmD Unavailable [phone] Cat Dumont CNP Primary Care Provider [phone] Reason for Visit * Reason Onset Date Comments Nurse Triage 02/08/2024 Encounter Details Date Type Department Care Team ([facility] st Contact Info) Description 02/08/2024 Telephone [facility] MEDICINE 230 [place], [place] [phone] Bea Lacey MD [address] [place], [place] [phone] Nurse Triage Social History Tobacco Use Types [...] Description 01/08/2025 10:30 AM EST Medication Management [facility] MED & PEDS [address] [place] [address] Mariely Dennison, PharmD 230 [place] [address] 02/19/2025 2:00 PM EST Office Visit [facility] MED & PEDS [address] [place] [address] Cat Dumont CNP [address] [place] [address] 06/18/2025 1:30 PM EDT Office Visit [facility] ADULT DENTAL [address] [place] [address] Daniele Barlow documented as of this encounter Visit Diagnoses Not on filedocumented in this encounter Additional Health Concerns Assessment Noted Time PHQ-9 Depression Total Score: 20 024 10:22 AM EDT documented as of this encounter Care Teams Student Nurse Relationship Specialty Start Date End Date Bea Lacey MD [address] [place] [address] PCP - General Family Medicine 09/22/22 12/23/24 Cat Dumont CNP 505 [place] [address] PCP - General Family Medicine 12/24/24 Mariely Dennison PharmD [address] [place] [address] Pharmacist Internal Medicine 07/03/24 [facility] 09/01/24 12/02/24 [facility] 11/09/24 documented as of this encounter
--- OUTSIDE RECORDS SUMMARY | 2025-01-02 16:41 | XMS_ITS | Encounter Summary ---
Author Organization [employer] Address [address] [facility] 7t [place] [address] Care Team Providers Care Body Sander Name Role Phone Bea Lacey MD Primary Care Provider [phone] Mariely Dennison PharmD Unavailable [phone] Cat Dumont CNP Primary Care Provider [phone] Encounter Details Date Type Department Care Team ([facility] st Contact Info) Description 05/21/2024 Telephone C [facility] [address] [place], [place] [phone] Bea Lacey MD [address] [place], [place] [phone] Social History Tobacco Use Types Packs/Day Years [...] [facility] MED & PEDS [address] [place] [address] Mariely Dennison PharmD [address] [place] [address] 02/19/2025 2:00 PM EST Office Visit [facility] MED & PEDS [address] [place] [address] Cat Dumont CNP 505 [place] [address] 06/18/2025 1:30 PM EDT Office Visit [facility] ADULT DENTAL [address] [place] [address] Daniele Barlow documented as of this encounter Visit Diagnoses Not on filedocumented in this encounter Additional Health Concerns Assessment Noted Time PHQ-9 Depression Total Score: 20 024 10:22 AM EDT documented as of this encounter Care Teams Body Sander Relationship Specialty Start Date End Date Bea Lacey MD [address] [place] [address] PCP - General Family Medicine 09/22/22 12/23/24 Cat Dumont CNP [address] [place] [address] PCP - General Family Medicine 12/24/24 Mariely Dennison PharmD [address] [place] [address] Pharmacist Internal Medicine 07/03/24 [facility] 09/01/24 12/02/24 [facility] 11/09/24 documented as of this encounter
--- OUTSIDE RECORDS SUMMARY | 2025-01-02 16:41 | XMS_ITS | Encounter Summary ---
Author Organization [employer] Address [address] [facility] 7t [place] [address] Care Team Providers Care Beef Tagger Name Role Phone DennisonJoanna bustilloscia PharmD Unavailable [phone] Cat Dumont CNP Primary Care Provider [phone] Reason for Referral * Consultation (Routine) - Authorized Specialty Diagnoses / Procedures Referred By Contezekiel t Referred To Contact Pharmacy Diagnoses Type 2 diabetes mellitus with hyperglycemia, without long-term current use of insulin (HCC) Sari Rangel MD [address] [place] [address] Phone: tel: fax: Referral ID Status Reason Start Date Expiration Date Visits Requested Visits Authorized [id number] Authorized Consult and Treat 01/01/2025 01/01/2026 6 6 Encounter Details Date Type Department Care Team ([facility] st Contact Info) Description 01/01/2025 Orders Only [facility] MED [facility] PEDS [address] [place] [address] Sari Rangel MD [address] [place] [address] Type 2 diabetes mellitus with hyperglycemia, without long-term current use of insulin (HCC) (Primary Dx) Social History Tobacco Use Types [...] [facility] MED & PEDS [address] [place] [address] Mariely Dennison, PharmD [address] [place] [address] 02/19/2025 2:00 PM EST Office Visit [facility] MED & PEDS [address] [place] [address] Cat Dumont, CHEMICAL EQUIPMENT REPAIRER [address] [place] [address] 06/18/2025 1:30 PM EDT Office Visit [facility] ADULT DENTAL [address] [place] [address] Daniele Barlow Scheduled Referrals Name Type Priority Associated Diagnoses Orde r Schedule Referral to Pharmacy CDTM Outpatient Referral Routine Type 2 diabetes mellitus with hyperglycemia, without long-term current use of insulin (HCC) Ordered: 01/01/2025 documented as of this encounter Visit Diagnoses Diagnosis Type 2 diabetes mellitus with hyperglycemia, without long-term current use of insulin (HCC)- Primary documented in this encounter Additional Health Concerns Assessment Noted Time PHQ-9 Depression Total Score: 9 09/19/19 25 9:36 AM EDT documented as of this encounter Care Teams Beef Tagger Relationship Specialty Start Date End Date Cat Dumont CNP [address] [place] [address] PCP - General Family Medicine 12/24/24 Mariely Dennison PharmD [address] [place] [address] Pharmacist Internal Medicine 07/03/24 [facility] 11/09/24 documented as of this encounter
--- OUTSIDE RECORDS SUMMARY | 2025-01-02 16:41 | XMS_ITS | Encounter Summary ---
Author Organization [employer] Address [address] [place] [address] 7t [place] [address] Care Team Providers Care Cake Puncher Name Role Phone Bea Lacey MD Primary Care Provider [phone] Mariely Dennison PharmD Unavailable [phone] Cat Dumont CNP Primary Care Provider [phone] Reason for Visit * Reason Comments Med Refill Encounter Details Date Type Department Care Team ([facility] Contact Info) Description 09/30/2022 Refill [facility] MED & PEDS [address] [place] [address] MartinGordon Ann MD [address] [place] [address] Chronic rhinitis Social History Tobacco Use Types [...] Upcoming Encounters Date Type Department Care Team ([facility] Contact Info) Description 01/08/2025 10:30 AM EST Medication Management [facility] MED & PEDS [address] [place] [address] Mariely Dennison PharmD [address] [place] [address] 02/19/2025 2:00 PM EST Office Visit [facility] MED & PEDS [address] [place] [address] Cat Dumont CNP [address] [place] [address] 06/18/2025 1:30 PM EDT Office Visit [facility] ADULT DENTAL [address] [place] [address] Daniele Barlow documented as of this encounter Visit Diagnoses Diagnosis Chronic rhinitis documented in this encounter Additional Health Concerns Assessment Noted Time PHQ-9 Depression Total Score: 7 05/29/19 10:45 AM EDT documented as of this encounter Care Teams Cake Puncher Relationship Specialty Start Date End Date Bea Lacey MD [address] [place] [address] PCP - General Family Medicine 09/22/22 12/23/24 Cat Dumont CNP [address] [place] [address] PCP - General Family Medicine 12/24/24 Mariely Dennison PharmD [address] [place] [address] Pharmacist Internal Medicine 07/03/24 [facility] 09/01/24 12/02/24 [facility] 11/09/24 documented as of this encounter
--- OUTSIDE RECORDS SUMMARY | 2025-01-02 16:41 | XMS_ITS | Encounter Summary ---
Author Organization [employer] Address [address] [facility] 7t [place] [address] Care Team Providers Care Netting Inspector Name Role Phone Bea Lacey MD Primary Care Provider [phone] Mariely Dennison PharmD Unavailable [phone] Cat Dumont CNP Primary Care Provider [phone] Encounter Details Date Type Department Care Team (Late st Contact Info) Description 02/29/2024 Orders Only [facility] MED & PEDS [address] [place], [place] [phone] Bea Lacey MD 505 [place], [place] [phone] Type 2 diabetes mellitus with hyperglycemia (CMS/HCC) [...] Description 01/08/2025 10:30 AM EST Medication Management [facility] MED & PEDS [address] [place] [address] Mariely Dennison, PharmD [address] [place] [address] 02/19/2025 2:00 PM EST Office Visit [facility] MED & PEDS [address] [place] [address] Cat Dumont CNP [address] [place] [address] 06/18/2025 1:30 PM EDT Office Visit [facility] ADULT DENTAL [address] [place] [address] Daniele Barlow documented as of this encounter Visit Diagnoses Diagnosis Type 2 diabetes mellitus with hyperglycemia (HCC) documented in this encounter Additional Health Concerns Assessment Noted Time PHQ-9 Depression Total Score: 20 024 10:22 AM EDT documented as of this encounter Care Teams Netting Inspector Relationship Specialty Start Date End Date Bea Lacey MD [address] [place] [address] PCP - General Family Medicine 09/22/22 12/23/24 Cat Dumont CNP [address] [place] [address] PCP - General Family Medicine 12/24/24 Mariely Dennison PharmD [address] [place] [address] Pharmacist Internal Medicine 07/03/24 [facility] 09/01/24 12/02/24 [facility] 11/09/24 documented as of this encounter
--- OUTSIDE RECORDS SUMMARY | 2025-01-02 16:41 | XMS_ITS | Encounter Summary ---
Author Organization [employer] Address [address] [facility] 7t [place] [address] Care Team Providers Care Bug Trimmer Name Role Phone Gordon Mills MD Primary Care Prov ider Bea Lacey MD Primary Care Provider [phone] Mariely Dennison PharmD Unavailable [phone] Cat Dumont CNP Primary Care Provider [phone] Reason for Visit * Reason Onset Date Comments PCP change 09/01/2022 Encounter Details Date Type Department Care Team ([facility] st Contact Info) Description 09/01/2022 Telephone [facility] MED & PEDS [address] [place], [place] [phone] Gordon Mills MD [address] [place], [place] [phone] PCP change Social History Tobacco Use Types [facility] [address] [place] [address] Mariely Dennison, PharmD [address] [place] [address] 02/19/2025 2:00 PM EST Office Visit [facility] MED & PEDS [address] [place] [address] Cat Dumont, HEAD TENNIS COACH [address] [place] [address] 06/18/2025 1:30 PM EDT Office Visit [facility] ADULT DENTAL [address] [place] [address] Daniele Barlow documented as of this encounter Visit Diagnoses Not on filedocumented in this encounter Additional Health Concerns Assessment Noted Time PHQ-9 Depression Total Score: 7 05/29/19 10:45 AM EDT documented as of this encounter Care Teams Bug Trimmer Relationship Specialty Start Date End Date Gordon Mills MD [address] [place] [address] PCP - General Internal Medicine 07/12/19 09/21/22 Bea Lacey MD [address] [place] [address] PCP - General Family Medicine 09/22/22 12/23/24 Cat Dumont CNP [address] [place] [address] PCP - General Family Medicine 12/24/24 Mariely Dennison PharmD [address] [place] [address] Pharmacist Internal Medicine [facility]03[facility]02[facility]24 [facility] 11/09/24 documented as of this encounter
--- OUTSIDE RECORDS SUMMARY | 2025-01-06 19:00 | XMS_ITS | Clinical Summary ---
Author Organization Unknown Care Team Providers Care Drop Wire Hanger Name Role Phone KIAN LEVINE, PAYAL Unavailable Unavaila anne-marie BIRCH RN, MARTÍN Unavailable Unavailab jaycee RONDON PT, YESIKA Unavailable Unavailable JOCY TALENT DEVELOPMENT ANALYST, EDWARD Unavailable Unavailable ALVARO BRICK AND BLOCK[employer] AID LABOR, ROSENDO Unavailable Unavailable Payers Payer Name Policy Type Policy Number Effective Date Expira tion Date MEDICARE.NGS.PDGM [id number] Problems Condition Name Condition Details Condition Category Status Onset Date Resolution Date Last Treatment Date Treating Clinician Comments HYP HRT AND CHR KDNY DIS W HRT FAIL AND STG 1-4/UNSP CHR KDNY Active 11-07 00:00: 00 CHRONIC DIASTOLIC (CONGESTIVE) HEART FAILURE Active 11-07 00:00: 00 CHRONIC KIDNEY DISEASE, STAGE 3 UNSPECIFIED Active 11-07 00:00: 00 ANEMIA IN CHRONIC KIDNEY DISEASE Active 11-07 00:00: 00 ESSENTIAL TREMOR Active 11-07 00:00: 00 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 11-07 00:00: 00 CHRONIC ATRIAL FIBRILLATION , UNSPECIFIED Active 11-07 00:00: 00 OTHER CHRONIC PAIN Active 11-07 00:00: 00 GASTRO-ESOPH AGEAL REFLUX DISEASE WITHOUT ESOPHAGITIS Active 11-07 00:00: 00 PRIMARY CENTRAL SLEEP APNEA Active 11-07 00:00: 00 DEPRESSION, UNSPECIFIED Active 11-07 00:00: 00 OTHER CONSTIPATION Active 11-07 00:00: 00 HYPOKALEMIA Active 11-07 00:00: 00 DIRT SUPERVISOR (CURRENT) USE OF ANTICOAGULAN TS Active 11-07 00:00: 00 OTHER DETENTION (CURRENT) DRUG THERAPY Active 11-07 00:00: 00 HISTORY OF FALLING Active 11-07 00:00: 00 Allergies, Adverse Reactions, Alerts Allergy Name Allergy Type Status Severity Reaction(s) Onset Date Inactive Date Treating Clinician Comments GRASS GENERAL Propensity to adverse reactions Active 11-09 11:33: 47 ENVIRONMENTA L ALLERGEN Propensity to adverse reactions Active 11-09 11:34: 20 Medications Ordered Medication Name Filled Medication Name Start Date Stop Date Current Medication? Ordering Clinician Indication Dosage Frequency Signature (SIG) Comments Components baclofen 20 mg tablet 11-02 00:00: 00 11-09 00:00 :00 No [id number] Per instruc tions Per instructio ns (route: oral) Med Classific ation: Locomotor System bupropion HCl XL 300 mg 24 hr tablet, extended release 11-02 00:00: 00 Yes [id number] ANTIDEPRESS ANT 1 tablet DAILY 1 tablet DAILY (route: oral) Med Classific ation: Central Nervous System Agents clonazepam 0.5 mg tablet 11-02 00:00: 00 11-09 00:00 :00 No [id number] Per instruc tions Per instructio ns (route: oral) Med Classific ation: Central Nervous System Agents esomeprazol e magnesium 40 mg capsule,del ayed release 11-02 00:00: 00 11-09 00:00 :00 No [id number] Per instruc tions Per instructio ns (route: oral) Med Classific ation: Gastroint estinal Therapy Agents Farxiga 10 mg tablet 11-02 00:00: 00 11-09 00:00 :00 No [id number] Per instruc tions Per instructio ns (route: oral) Med Classific ation: Endocrine gabapentin 300 mg capsule 11-02 00:00: 00 11-09 00:00 :00 No [id number] Per instruc tions Per instructio ns (route: oral) Med Classific ation: Central Nervous System Agents hydroxyzine pamoate 25 mg capsule 11-02 00:00: 00 11-09 00:00 :00 No [id number] Per instruc tions Per instructio ns (route: oral) Med Classific ation: Central Nervous System Agents isosorbide mononitrate ER 60 mg tablet,exte nded release 24 hr 11-02 00:00: 00 11-09 00:00 :00 No [id number] Per instruc tions Per instructio ns (route: oral) Med Classific ation: Cardiovas cular Therapy Agents lubiproston e 8 mcg capsule 11-02 00:00: 00 11-09 00:00 :00 No [id number] Per instruc tions Per instructio ns (route: oral) Med Classific ation: Gastroint estinal Therapy Agents mirtazapine 7.5 mg tablet 11-02 00:00: 00 11-09 00:00 :00 No [id number] Per instruc tions Per instructio ns (route: oral) Med Classific ation: Central Nervous System Agents pilocarpine 5 mg tablet 11-02 00:00: 00 Yes [id number] DRY MOUTH 1 tablet 2 TIMES DAILY 1 tablet 2 TIMES DAILY (route: oral) Med Classific ation: Mouth-Thr oat-Denta l - Preparati ons prazosin 5 mg capsule 11-02 00:00: 00 Yes [id number] LOWERS BLOOD PRESSURE 1 capsule BEDTIME 1 capsule BEDTIME (route: oral) Med Classific ation: Cardiovas cular Therapy Agents rosuvastati n 40 mg tablet 11-02 00:00: 00 Yes [id number] LOWERS CHOLESTEROL 1 tablet BEDTIME 1 tablet BEDTIME (route: oral) Med Classific ation: Cardiovas cular Therapy Agents sertraline 100 mg tablet 11-02 00:00: 00 Yes [id number] ANTIDEPRESS ANT 1.5 tablet BEDTIME 1.5 tablet BEDTIME (route: oral) Med Classific ation: Central Nervous System Agents sucralfate 1 gram tablet 11-02 00:00: 00 11-09 00:00 :00 No [id number] Per instruc tions Per instructio ns (route: oral) Med Classific ation: Gastroint estinal Therapy Agents trazodone 50 mg tablet 11-02 00:00: 00 Yes [id number] INSOMNIA 1.5 tablet BEDTIME 1.5 tablet BEDTIME (route: oral) Med Classific ation: Central Nervous System Agents Xarelto 20 mg tablet 11-02 00:00: 00 11-09 00:00 :00 No [id number] Per instruc tions Per instructio ns (route: oral) Med Classific ation: Hematolog ical Agents FreeStyle Verito 3 Plus Sensor device 10-31 00:00: 00 11-09 00:00 :00 No [id number] Unavailable Per instruc tions AND CHANGE EVERY 15 DAYS Per instructio ns AND CHANGE EVERY 15 DAYS (route: miscellane ous) Med Classific ation: Medical Supplies and Durable Medical Equipment (DME) Entresto 49 mg-51 mg tablet 10-16 00:00: 00 Yes [id number] HEART FAILURE 1 tablet 2 TIMES DAILY 1 tablet 2 TIMES DAILY (route: oral) Med Classific ation: Cardiovas cular Therapy Agents Kerendia 20 mg tablet 10-16 00:00: 00 11-09 00:00 :00 No [id number] Per instruc tions DAILY AT Per instructio ns DAILY AT (route: oral) Med Classific ation: Cardiovas cular Therapy Agents torsemide 5 mg tablet 10-16 00:00: 00 11-09 00:00 :00 No [id number] Per instruc tions EVERY Per instructio ns EVERY (route: oral) Med Classific ation: Cardiovas cular Therapy Agents clonidine HCl 0.1 mg tablet 10-08 00:00: 00 11-09 00:00 :00 No [id number] Per instruc tions Per instructio ns (route: oral) Med Classific ation: Cardiovas cular Therapy Agents hydroxyzine HCl 25 mg tablet 10-08 00:00: 00 11-09 00:00 :00 No [id number] Per instruc tions Per instructio ns (route: oral) Med Classific ation: Central Nervous System Agents acetaminoph en 325 mg tablet 11-09 00:00: 00 Yes [id number] PAIN MANAGEMENT 2 tablet EVERY 6 HOURS 2 tablet EVERY 6 HOURS (route: oral) Med Classific ation: Analgesic , Anti-infl ammatory or Antipyret ic baclofen 10 mg tablet 11-09 00:00: 00 Yes [id number] MUSCLE SPASM 1 tablet 3 TIMES DAILY 1 tablet 3 TIMES DAILY (route: oral) Med Classific ation: Locomotor System Calcium 600 + Minerals 600 mg (as carbonate)- 200 unit tablet 11-09 00:00: 00 Yes [id number] SUPPLEMENT 1 tablet 2 TIMES DAILY 1 tablet 2 TIMES DAILY (route: oral) Med Classific ation: Electroly te Balance-N utritiona l Products Colace 100 mg capsule 11-09 00:00: 00 Yes [id number] CONSTIPATIO N 1 capsule 2 TIMES DAILY 1 capsule 2 TIMES DAILY (route: oral) Med Classific ation: Gastroint estinal Therapy Agents esomeprazol e magnesium 40 mg capsule,del ayed release 11-09 00:00: 00 Yes [id number] GERD 1 capsule 2 TIMES DAILY 1 capsule 2 TIMES DAILY (route: oral) Med Classific ation: Gastroint estinal Therapy Agents famotidine 40 mg tablet 11-09 00:00: 00 Yes [id number] GERD 1 tablet DAILY 1 tablet DAILY (route: oral) Med Classific ation: Gastroint estinal Therapy Agents Farxiga 10 mg tablet 11-09 00:00: 00 Yes [id number] HEART FAILURE 1 tablet DAILY 1 tablet DAILY (route: oral) Med Classific ation: Endocrine gabapentin 100 mg capsule 11-09 00:00: 00 Yes [id number] NEUROPATHY 2 capsule 2 TIMES DAILY 2 capsule 2 TIMES DAILY (route: oral) Med Classific ation: Central Nervous System Agents gabapentin 300 mg capsule 11-09 00:00: 00 Yes [id number] NEUROPATHY 1 capsule BEDTIME 1 capsule BEDTIME (route: oral) Med Classific ation: Central Nervous System Agents isosorbide mononitrate ER 60 mg tablet,exte nded release 24 hr 11-09 00:00: 00 Yes [id number] CAD 2 tablet DAILY 2 tablet DAILY (route: oral) Med Classific ation: Cardiovas cular Therapy Agents melatonin 10 mg capsule 11-09 00:00: 00 Yes [id number] INSOMNIA 1 capsule BEDTIME 1 capsule BEDTIME (route: oral) Med Classific ation: Central Nervous System Agents primidone 250 mg tablet 11-09 00:00: 00 Yes [id number] TREMORS 2 tablet 2 TIMES DAILY 2 tablet 2 TIMES DAILY (route: oral) Med Classific ation: Central Nervous System Agents sucralfate 1 gram tablet 11-09 00:00: 00 Yes [id number] GERD 1 tablet 2 TIMES DAILY 1 tablet 2 TIMES DAILY (route: oral) Med Classific ation: Gastroint estinal Therapy Agents Xarelto 20 mg tablet 11-09 00:00: 00 Yes [id number] AFIB 1 tablet DAILY 1 tablet DAILY (route: oral) Med Classific ation: Hematolog ical Agents Amitiza 8 mcg capsule 11-09 00:00: 00 Yes [id number] CONSTIPATIO N 1 capsule 2 TIMES DAILY 1 capsule 2 TIMES DAILY (route: oral) Med Classific ation: Gastroint estinal Therapy Agents aspirin 81 mg tablet,flores yed release 11-09 00:00: 00 Yes [id number] HEART HEALTH 1 tablet DAILY 1 tablet DAILY (route: oral) Med Classific ation: Hematolog ical Agents cetirizine 10 mg tablet 11-09 00:00: 00 Yes [id number] ALLERGIES 1 tablet DAILY 1 tablet DAILY (route: oral) Med Classific ation: Respirato ry Therapy Agents cholecalcif glenn (vitamin D3) 25 mcg (1,000 unit) tablet 11-09 00:00: 00 Yes [id number] SUPPLEMENT 1 tablet DAILY 1 tablet DAILY (route: oral) Med Classific ation: Electroly te Balance-N utritiona l Products torsemide 5 mg tablet 11-09 00:00: 00 Yes [id number] FLUID RETENTION 1 tablet DAILY 1 tablet DAILY (route: oral) Med Classific ation: Cardiovas cular Therapy Agents Kerendia 20 mg tablet 2024-02 007 00:00: 00 Yes [id number] CARDIAC 1 tablet DAILY 1 tablet DAILY (route: oral) Alternate Route: BY MOUTH. Med Classific ation: Cardiovas cular Therapy Agents Senna Lax 8.6 mg tablet 2024-02 007 00:00: 00 Yes [id number] BOWEL 1 tablet BEDTIME 1 tablet BEDTIME (route: oral) Alternate Route: BY MOUTH. Med Classific ation: Gastroint estinal Therapy Agents Vital Signs Vital Name Observation Time Observation Value Commen ts Temperature 2024-12-21 10:23:00.000 98.3 [degF] Temperature 2024-12-20 09:55:00.000 97.9 [degF] Temperature 2024-12-07 10:46:00.000 97.9 [degF] Temperature 2024-12-04 08:59:00.000 97.7 [degF] Temperature 2024-11-28 12:55:00.000 98.4 [degF] Temperature 2024-11-27 09:44:00.000 97.7 [degF] Temperature 2024-11-23 09:19:00.000 97.7 [degF] Temperature 2024-11-20 11:06:00.000 98.3 [degF] Temperature 2024-11-16 12:46:00.000 97.4 [degF] Temperature 2024-11-14 10:15:00.000 97.8 [degF] Temperature 2024-11-13 09:31:00.000 97.9 [degF] Temperature 2024-11-09 11:39:00.000 97.3 [degF] BMI (%) 2024-11-09 11:20:26.000 27 kg/m2 Height 2024-11-09 11:18:46.000 68 [in_us] Pulse 2024-12-21 10:23:00.000 87 /min Pulse 2024-12-20 09:55:00.000 73 /min Pulse 2024-12-07 10:46:00.000 76 /min Pulse 2024-12-04 08:59:00.000 90 /min Pulse 2024-11-28 12:55:00.000 72 /min Pulse 2024-11-27 09:44:00.000 60 /min Pulse 2024-11-23 09:19:00.000 73 /min Pulse 2024-11-20 11:06:00.000 62 /min Pulse 2024-11-16 12:46:00.000 61 /min Pulse 2024-11-14 10:15:00.000 80 /min Pulse 2024-11-13 09:31:00.000 84 /min Pulse 2024-11-09 11:39:00.000 60 /min O2 Saturation (%) 2024-12-21 10:23:00.000 96 % O2 Saturation (%) 2024-12-20 09:55:00.000 95 % O2 Saturation (%) 2024-12-07 10:46:00.000 96 % O2 Saturation (%) 2024-12-04 08:59:00.000 99 % O2 Saturation (%) 2024-11-27 09:44:00.000 95 % O2 Saturation (%) 2024-11-23 09:19:00.000 97 % O2 Saturation (%) 2024-11-20 11:06:00.000 96 % O2 Saturation (%) 2024-11-16 12:46:00.000 96 % O2 Saturation (%) 2024-11-14 10:15:00.000 97 % O2 Saturation (%) 2024-11-13 09:31:00.000 96 % O2 Saturation (%) 2024-11-09 11:39:00.000 95 % Respirations 2024-12-21 10:23:00.000 18 /min Respirations 2024-12-20 09:55:00.000 18 /min Respirations 2024-12-07 10:46:00.000 18 /min Respirations 2024-12-04 08:59:00.000 18 /min Respirations 2024-11-28 12:55:00.000 18 /min Respirations 2024-11-27 09:44:00.000 18 /min Respirations 2024-11-23 09:19:00.000 18 /min Respirations 2024-11-20 11:06:00.000 18 /min Respirations 2024-11-16 12:46:00.000 18 /min Respirations 2024-11-14 10:15:00.000 18 /min Respirations 2024-11-13 09:31:00.000 18 /min Respirations 2024-11-09 11:39:00.000 18 /min Weight (lbs) 2024-12-21 10:24:00.000 190 [lb_av] Weight (lbs) 2024-12-20 09:57:00.000 192 [lb_av] Weight (lbs) 2024-12-07 10:52:00.000 186 [lb_av] Weight (lbs) 2024-12-04 08:59:00.000 185 [lb_av] Weight (lbs) 2024-11-28 13:05:00.000 184 [lb_av] Weight (lbs) 2024-11-27 09:44:00.000 186 [lb_av] Weight (lbs) 2024-11-23 09:19:00.000 187 [lb_av] Weight (lbs) 2024-11-20 11:06:00.000 187 [lb_av] Weight (lbs) 2024-11-16 12:46:00.000 185.1 [lb_av] Weight (lbs) 2024-11-14 10:15:00.000 187 [lb_av] Weight (lbs) 2024-11-13 09:31:00.000 185 [lb_av] Weight (lbs) 2024-11-09 11:20:26.000 180 [lb_av] Systolic Blood Pressure 2024-12-21 10:23:00.000 108 mm [Hg] Systolic Blood Pressure 2024-12-20 09:55:00.000 120 mm [Hg] Systolic Blood Pressure 2024-12-07 10:46:00.000 108 mm [Hg] Systolic Blood Pressure 2024-12-04 08:59:00.000 122 mm [Hg] Systolic Blood Pressure 2024-11-28 12:55:00.000 94 mm[ Hg] Systolic Blood Pressure 2024-11-27 09:44:00.000 100 mm [Hg] Systolic Blood Pressure 2024-11-23 09:19:00.000 102 mm [Hg] Systolic Blood Pressure 2024-11-20 11:06:00.000 104 mm [Hg] Systolic Blood Pressure 2024-11-16 12:46:00.000 100 mm [Hg] Systolic Blood Pressure 2024-11-14 10:15:00.000 122 mm [Hg] Systolic Blood Pressure 2024-11-13 09:31:00.000 128 mm [Hg] Systolic Blood Pressure 2024-11-09 11:39:00.000 134 mm [Hg] Diastolic Blood Pressure 2024-12-21 10:23:00.000 64 mm [Hg] Diastolic Blood Pressure 2024-12-20 09:55:00.000 64 mm [Hg] Diastolic Blood Pressure 2024-12-07 10:46:00.000 56 mm [Hg] Diastolic Blood Pressure 2024-12-04 08:59:00.000 60 mm [Hg] Diastolic Blood Pressure 2024-11-28 12:55:00.000 56 mm [Hg] Diastolic Blood Pressure 2024-11-27 09:44:00.000 60 mm [Hg] Diastolic Blood Pressure 2024-11-23 09:19:00.000 56 mm [Hg] Diastolic Blood Pressure 2024-11-20 11:06:00.000 60 mm [Hg] Diastolic Blood Pressure 2024-11-16 12:46:00.000 50 mm [Hg] Diastolic Blood Pressure 2024-11-14 10:15:00.000 60 mm [Hg] Diastolic Blood Pressure 2024-11-13 09:31:00.000 64 mm [Hg] Diastolic Blood Pressure 2024-11-09 11:39:00.000 72 mm [Hg] Plan of Treatment Planned Activity Planned Date Details Comments Future Scheduled Test FALL REDUC TION MANAGEMENT; RN TO ASSESS AND OBSERVE, BRICK AND BLOCK[employer] AID LABOR/VICE PRESIDENT SAFETY TO OBSERVE FALL RISK FACTORS AND EDUCATE PATIENT/CAREGIVER ON STRATEGIES TO MINIMIZE THE RISK OF FALLING. [code = FALL REDUCTION MANAGEMENT; RN TO ASSESS AND OBSERVE, BR[employer] BLOCK[employer] AID LABOR/VICE PRESIDENT SAFETY TO OBSERVE FALL RISK FACTORS AND EDUCATE PATIENT/CAREGIVER ON STRATEGIES TO MINIMIZE THE RISK OF FALLING.] Future Scheduled Test RN TO OBSE RVE, ASSESS, EVALUATE, AND DEVELOP AN INDIVIDUALIZED PLAN OF CARE. AGENCY MAY ACCEPT ORDERS FROM CONSULTING PHYSICIANS. RN TO OBSERVE AND ASSESS, [employer] AND BLOCK[employer] AID LABOR/VICE PRESIDENT SAFETY TO OBSERVE FOR RISK FOR FALLS AND INSTRUCT IN FALL PREVENTION, HOME SAFETY, MEDICATION MANAGEMENT, INFECTION PREVENTION, AND NUTRITION MANAGEMENT. RN/[employer] BLOCK[employer] AID LABOR/VICE PRESIDENT SAFETY NURSE MAY PERFORM O2 SATURATION LEVEL ON ADMISSION AND PRN FOR RN TO ASSESS/BRICK AND BLOCKER AID LABOR TO OBSERVE PATIENT, WITH NOTIFICATION TO THE PHYSICIAN IF SATURATION IS 90% IN THE ABSENCE OF MORE SPECIFIC PARAMETERS FROM THE PHYSICIAN. AGENCY MAY PERFORM A RESUMPTION OF CARE VISIT FOLLOWING ANY HOSPITAL ADMISSION. RN/[employer]ICK [employer] BLOCK[employer] AID LABOR/VICE PRESIDENT SAFETY TO MONITOR CO-MORBID CONDITIONS LISTED ON THE PLAN OF CARE AND ANY NEW CONDITIONS THAT PRESENT THEMSELVES DURING THIS EPISODE TO IDENTIFY CHANGES AND INTERVENE TO MINIMIZE COMPLICATIONS. [code = RN TO OBSERVE, ASSESS, EVALUATE, AND DEVELOP AN INDIVIDUALIZED PLAN OF CARE. AGENCY MAY ACCEPT ORDERS FROM CONSULTING PHYSICIANS. RN TO OBSERVE AND ASSESS, [employer] BLOCK[employer] AID LABOR/VICE PRESIDENT SAFETY TO OBSERVE FOR RISK FOR FALLS AND INSTRUCT IN FALL PREVENTION, HOME SAFETY, MEDICATION MANAGEMENT, INFECTION PREVENTION, AND NUTRITION MANAGEMENT. RN/BRICK [employer] BLOCK[employer] AID LABOR/VICE PRESIDENT SAFETY NURSE MAY PERFORM O2 SATURATION LEVEL ON ADMISSION AND PRN FOR RN TO ASSESS/BRICK [employer] BLOCK[employer] AID LABOR TO OBSERVE PATIENT, WITH NOTIFICATION TO THE PHYSICIAN IF SATURATION IS 90% IN THE ABSENCE OF MORE SPECIFIC PARAMETERS FROM THE PHYSICIAN. AGENCY MAY PERFORM A RESUMPTION OF CARE VISIT FOLLOWING ANY HOSPITAL ADMISSION. RN/BRICK AND BLOCKER AID LABOR/VICE PRESIDENT SAFETY TO MONITOR CO-MORBID CONDITIONS LISTED ON THE PLAN OF CARE AND ANY NEW CONDITIONS THAT PRESENT THEMSELVES DURING THIS EPISODE TO IDENTIFY CHANGES AND INTERVENE TO MINIMIZE COMPLICATIONS.] Future Scheduled Test PAIN MANAG EMENT; RN TO ASSESS AND TEACH, VICE PRESIDENT SAFETY/[employer] BLOCK[employer] AID LABOR TO OBSERVE AND TEACH AND PROVIDE EDUCATION ON PAIN MANAGEMENT TECHNIQUES. [code = PAIN MANAGEMENT; RN TO ASSESS AND TEACH, VICE PRESIDENT SAFETY/BR[employer] BLOCK[employer] AID LABOR TO OBSERVE AND TEACH AND PROVIDE EDUCATION ON PAIN MANAGEMENT TECHNIQUES.] Future Scheduled Test RISK FOR H OSPITALIZATION; RN TO ASSESS/TEACH, VICE PRESIDENT SAFETY/[employer] BLOCK[employer] AID LABOR TO OBSERVE/TEACH PATIENT/CAREGIVER ON RISK FOR HOSPITALIZATION/EMERGENCY ROOM VISITS, TEACH SIGNS AND SYMPTOMS THAT PUT PATIENT AT RISK, WHEN TO NOTIFY NURSE/PHYSICIAN OF COMPLICATIONS/DECLINE, AND WHEN TO CALL 911. [code = RISK FOR HOSPITALIZATION; RN TO ASSESS/TEACH, VICE PRESIDENT SAFETY/[employer] BLOCK[employer] AID LABOR TO OBSERVE/TEACH PATIENT/CAREGIVER ON RISK FOR HOSPITALIZATION/EMERGENCY ROOM VISITS, TEACH SIGNS AND SYMPTOMS THAT PUT PATIENT AT RISK, WHEN TO NOTIFY NURSE/PHYSICIAN OF COMPLICATIONS/DECLINE, AND WHEN TO CALL 911.] Future Scheduled Test HEART FAIL URE MONITORING RN/VICE PRESIDENT SAFETY/BR[employer] BLOCK[employer] AID LABOR TO MONITOR PATIENT FOR SIGNS AND SYMPTOMS OF HEART FAILURE EXACERBATION, MONITOR FOR ADHERENCE WITH MEDICATION AND HEART FAILURE MANAGEMENT REGIMEN. [code = HEART FAILURE MONITORING RN/VICE PRESIDENT SAFETY/BRICK AND BLOCKER AID LABOR TO MONITOR PATIENT FOR SIGNS AND SYMPTOMS OF HEART FAILURE EXACERBATION, MONITOR FOR ADHERENCE WITH MEDICATION AND HEART FAILURE MANAGEMENT REGIMEN.] Future Scheduled Test DIABETES M ONITORING RN/VICE PRESIDENT SAFETY/BRICK AND BLOCKER AID LABOR TO MONITOR BLOOD SUGAR LOG FOR BLOOD SUGAR READINGS THAT ARE BEING CHECKED BY PATIENT VIA CGM. PATIENT THERAPEUTIC BLOOD SUGAR PARAMETERS ARE 70 - 350. REPORT BLOOD SUGARS OUT OF RANGE TO PHYSICIAN. NURSE MAY PERFORM FINGER STICK BLOOD GLUCOSE NEEDED FOR SIGNS AND SYMPTOMS OF HYPO AND HYPERGLYCEMIA. RN/VICE PRESIDENT SAFETY/BRICK AND BLOCKER AID LABOR TO MONITOR ADHERENCE OF PATIENT PERFORMING DIABETIC FOOT CARE AND MAY PERFORM DIABETIC FOOT CARE PRN. RN/VICE PRESIDENT SAFETY/BRICK AND BLOCKER AID LABOR TO MONITOR FOR ADHERENCE TO DIABETIC SELF-CARE AND MANAGEMENT INCLUDING MEDICATIONS. [code = DIABETES MONITORING RN/VICE PRESIDENT SAFETY/BRICK AND BLOCKER AID LABOR TO MONITOR BLOOD SUGAR LOG FOR BLOOD SUGAR READINGS THAT ARE BEING CHECKED BY PATIENT VIA CGM. PATIENT THERAPEUTIC BLOOD SUGAR PARAMETERS ARE 70 - 350. REPORT BLOOD SUGARS OUT OF RANGE TO PHYSICIAN. NURSE MAY PERFORM FINGER STICK BLOOD GLUCOSE NEEDED FOR SIGNS AND SYMPTOMS OF HYPO AND HYPERGLYCEMIA. RN/VICE PRESIDENT SAFETY/BRICK AND BLOCKER AID LABOR TO MONITOR ADHERENCE OF PATIENT PERFORMING DIABETIC FOOT CARE AND MAY PERFORM DIABETIC FOOT CARE PRN. RN/VICE PRESIDENT SAFETY/BRICK AND BLOCKER AID LABOR TO MONITOR FOR ADHERENCE TO DIABETIC SELF-CARE AND MANAGEMENT INCLUDING MEDICATIONS.] Future Scheduled Test MEDICATION MANAGEMENT; RN/[employer] AID LABOR/VICE PRESIDENT SAFETY TO REVIEW MEDICATIONS FOR INTERACTIONS, EFFECTIVENESS OF DRUG THERAPY, AND SIGNS/SYMPTOMS OF ADVERSE REACTIONS. MAY INSTRUCT AND REINFORCE MEDICATION TEACHING RELATED TO THE USE OF MEDICATIONS, DOSAGE, FREQUENCY, PURPOSE, SIDE EFFECTS, AND TO REPORT COMPLICATIONS. [code = MEDICATION MANAGEMENT; RN/BR[employer] AND [employer] AID LABOR/VICE PRESIDENT SAFETY TO REVIEW MEDICATIONS FOR INTERACTIONS, EFFECTIVENESS OF DRUG THERAPY, AND SIGNS/SYMPTOMS OF ADVERSE REACTIONS. MAY INSTRUCT AND REINFORCE MEDICATION TEACHING RELATED TO THE USE OF MEDICATIONS, DOSAGE, FREQUENCY, PURPOSE, SIDE EFFECTS, AND TO REPORT COMPLICATIONS.] Future Scheduled Test AGENCY MAY PERFORM A RESUMPTION OF CARE VISIT FOLLOWING ANY HOSPITAL ADMISSION. PT TO EVALUATE, OBSERVE / ASSESS, AND MONITOR, TALENT DEVELOPMENT ANALYST TO OBSERVE AND MONITOR, PROVIDE SKILLED THERAPEUTIC INTERVENTION, ACTIVITY, EDUCATION, AND TRAINING TO ADDRESS; PT/TALENT DEVELOPMENT ANALYST TO PROVIDE GAIT TRAINING FOR IMPROVED MOBILITY AND /OR TO NORMALIZE GAIT PATTERN NEUROMUSCULAR RE-EDUCATION / BALANCE / POSTURAL CONTROL (PT) THERAPEUTIC EXERCISES AND ESTABLISHING A HOME EXERCISE PROGRAM (PT/TALENT DEVELOPMENT ANALYST) SIT TO/FROM STAND TRANSFERS (PT/TALENT DEVELOPMENT ANALYST) PT TO ASSESS / TALENT DEVELOPMENT ANALYST TO MONITOR FOR AND REPORT EARLY SIGNS OF ANTICOAGULANT TOXICITY TO THE PHYSICIAN AND/OR THE RN CLINICAL MANAGER SCIENTIFIC FOR PHYSICIAN NOTIFICATION AND TO PROVIDE PATIENT/CAREGIVER EDUCATION ON ANTICOAGULANT THERAPY PT / TALENT DEVELOPMENT ANALYST TO MONITOR AND EDUCATE ON OXYGEN SATURATION DURING ADLS/IADLS, NOTIFY PHYSICIAN AND/OR THE RN CLINICAL MANAGER SCIENTIFIC FOR PHYSICIAN NOTIFICATION AND IF O2 SATS BELOW PHYSICIAN ORDERED PARAMETERS AFTER 10 MIN OF REST PT TO ASSESS / TALENT DEVELOPMENT ANALYST TO MONITOR FOR HEART FAILURE EXACERBATION AND RECORD PATIENT REPORTED WEIGHT, AND NOTIFY THE PHYSICIAN AND/OR THE RN CLINICAL MANAGER SCIENTIFIC FOR PHYSICIAN NOTIFICATION OF HF EXACERBATION (2LB WEIGHT GAIN IN 1 DAY, 5LBS IN A WEEK OR 5 LBS OVER BASELINE; INCREASED SOB, EDEMA, NEEDING MORE PILLOWS AT NIGHT, CRACKLES IN BASIS OF THE LUNGS OR PMI SHIFT) PT TO ASSESS / TALENT DEVELOPMENT ANALYST TO MONITOR CARDIO/RESPIRATORY SYSTEM; AND NOTIFY THE PHYSICIAN AND/OR THE RN CLINICAL MANAGER SCIENTIFIC FOR PHYSICIAN NOTIFICATION FOR EARLY SIGNS AND SYMPTOMS OF EXACERBATION OR DETERIORATION. PT/TALENT DEVELOPMENT ANALYST TO IDENTIFY FALL RISK FACTORS; EDUCATE THE PATIENT/CAREGIVER ON WAYS TO REDUCE FALL RISK FACTORS AND ESTABLISH HOME EXERCISE PROGRAM TO MINIMIZE FALL RISK. MAY TEACH THE PATIENT FLOOR RECOVERY WHEN CLINICALLY APPROPRIATE PT / TALENT DEVELOPMENT ANALYST MAY EDUCATE ON PAIN MANAGEMENT CLINICALLY INDICATED, INCLUDING NON-PHARMACOLOGICAL PAIN REDUCTION TECHNIQUES [code = AGENCY MAY PERFORM A RESUMPTION OF CARE VISIT FOLLOWING ANY HOSPITAL ADMISSION. PT TO EVALUATE, OBSERVE / ASSESS, AND MONITOR, TALENT DEVELOPMENT ANALYST TO OBSERVE AND MONITOR, PROVIDE SKILLED THERAPEUTIC INTERVENTION, ACTIVITY, EDUCATION, AND TRAINING TO ADDRESS; PT/TALENT DEVELOPMENT ANALYST TO PROVIDE GAIT TRAINING FOR IMPROVED MOBILITY AND /OR TO NORMALIZE GAIT PATTERN NEUROMUSCULAR RE-EDUCATION / BALANCE / POSTURAL CONTROL (PT) THERAPEUTIC EXERCISES AND ESTABLISHING A HOME EXERCISE PROGRAM (PT/TALENT DEVELOPMENT ANALYST) SIT TO/FROM STAND TRANSFERS (PT/TALENT DEVELOPMENT ANALYST) PT TO ASSESS / TALENT DEVELOPMENT ANALYST TO MONITOR FOR AND REPORT EARLY SIGNS OF ANTICOAGULANT TOXICITY TO THE PHYSICIAN AND/OR THE RN CLINICAL MANAGER SCIENTIFIC FOR PHYSICIAN NOTIFICATION AND TO PROVIDE PATIENT/CAREGIVER EDUCATION ON ANTICOAGULANT THERAPY PT / TALENT DEVELOPMENT ANALYST TO MONITOR AND EDUCATE ON OXYGEN SATURATION DURING ADLS/IADLS, NOTIFY PHYSICIAN AND/OR THE RN CLINICAL MANAGER SCIENTIFIC FOR PHYSICIAN NOTIFICATION AND IF O2 SATS BELOW PHYSICIAN ORDERED PARAMETERS AFTER 10 MIN OF REST PT TO ASSESS / TALENT DEVELOPMENT ANALYST TO MONITOR FOR HEART FAILURE EXACERBATION AND RECORD PATIENT REPORTED WEIGHT, AND NOTIFY THE PHYSICIAN AND/OR THE RN CLINICAL MANAGER SCIENTIFIC FOR PHYSICIAN NOTIFICATION OF HF EXACERBATION (2LB WEIGHT GAIN IN 1 DAY, 5LBS IN A WEEK OR 5 LBS OVER BASELINE; INCREASED SOB, EDEMA, NEEDING MORE PILLOWS AT NIGHT, CRACKLES IN BASIS OF THE LUNGS OR PMI SHIFT) PT TO ASSESS / TALENT DEVELOPMENT ANALYST TO MONITOR CARDIO/RESPIRATORY SYSTEM; AND NOTIFY THE PHYSICIAN AND/OR THE RN CLINICAL MANAGER SCIENTIFIC FOR PHYSICIAN NOTIFICATION FOR EARLY SIGNS AND SYMPTOMS OF EXACERBATION OR DETERIORATION. PT/TALENT DEVELOPMENT ANALYST TO IDENTIFY FALL RISK FACTORS; EDUCATE THE PATIENT/CAREGIVER ON WAYS TO REDUCE FALL RISK FACTORS AND ESTABLISH HOME EXERCISE PROGRAM TO MINIMIZE FALL RISK. MAY TEACH THE PATIENT FLOOR RECOVERY WHEN CLINICALLY APPROPRIATE PT / TALENT DEVELOPMENT ANALYST MAY EDUCATE ON PAIN MANAGEMENT CLINICALLY INDICATED, INCLUDING NON-PHARMACOLOGICAL PAIN REDUCTION TECHNIQUES] Goal Patient Goal - TO GET BACK T O THE GYM Goal Provider Goal - PATIENT/CAREGIVER WILL VERBALIZE/DEMONSTRATE UNDERSTANDING OF FALL RISK FACTORS AND IMPLEMENT STRATEGIES TO MINIMIZE FALL RISK. PATIENT/CAREGIVER WILL VERBALIZE/DEMONSTRATE AN ABILITY TO ADHERE TO FALL REDUCTION SELF-MANAGEMENT AND LIFE-STYLE CHANGES BY END OF EPISODE. Goal Provider Goal - A PLAN OF CARE WILL BE ESTABLISHED THAT MEETS THE PATIENT S NEEDS. PATIENT WILL DEMONSTRATE OXYGEN SATURATION WITHIN NORMAL LIMITS OR PATIENT S OPTIMAL LEVEL ESTABLISHED BY THE PHYSICIAN THROUGHOUT CARE. CHANGES TO CO-MORBID CONDITIONS AND ANY NEW CONDITIONS WILL BE IDENTIFIED AND REPORTED TO THE PHYSICIAN. Goal Provider Goal - PATIENT / CAREGIVER WILL VERBALIZE / DEMONSTRATE UNDERSTANDING OF PAIN CONTROL MEASURES BY END OF EPISODE. Goal Provider Goal - PATIENT/CAREGIVER WILL VERBALIZE UNDERSTANDING OF SIGNS AND SYMPTOMS THAT PUT THE PATIENT AT RISK FOR HOSPITALIZATION /EMERGENCY ROOM VISITS, WHEN TO NOTIFY NURSE/PHYSICIAN OF COMPLICATIONS/DECLINE AND WHEN TO CALL 911. Goal Provider Goal - HEART FAILURE CONDITION WILL BE CONTROLLED THROUGHOUT THE EPISODE. Goal Provider Goal - BLOOD SUGARS WILL REMAIN WITHIN ESTABLISHED RANGES AND DIABETES CONTROLLED THROUGHOUT EPISODE. Goal Provider Goal - PATIENT/CAREGIVER TO VERBALIZE, AND CONSISTENTLY DEMONSTRATE EFFECTIVE, SAFE MANAGEMENT OF MEDICATION INCLUDING KNOWLEDGE OF EFFECTIVENESS, POTENTIAL SIDE EFFECTS AND DRUG REACTIONS AND WHEN TO CONTACT THE APPROPRIATE CARE PROVIDER. PATIENT/CAREGIVER WILL BE ABLE TO VERBALIZE UNDERSTANDING OF MEDICATION REGIMEN AND ACCURATELY TAKE MEDICATIONS PRESCRIBED WITHOUT ADVERSE EFFECTS BY END OF EPISODE. Goal Provider Goal - PT LTG: PATIENT WILL DEMONSTRATE REDUCED GAIT DEVIATIONS TO REDUCE THE RISK FOR FALLING AND MINIMIZE STRAIN ON KNEES/HIPS AND BACK EVIDENCED BY IMPROVED HEEL STRIKE, ADEQUATE STEP LENGTH AND CONSISTENT FOOT CLEARANCE BILATERALLY USING LRAD TO WALK INDEPENDENLY IN ORDER TO ACCESS ALL AREAS OF THE HOME AND TRANSPORTATION WITHIN 8 WEEKS PT LTG: PATIENT WILL DEMONSTRATE REDUCED FALL RISK EVIDENCED BY TUG TEST (CUT SCORE >11 SECONDS INDICATES INCREASED FALL RISK) IMPROVING FROM 30 SECONDS TO 15 SECONDS WITHIN 8 WEEKS PT LTG: PATIENT WILL DEMONSTRATE IMPROVED FUNCTIONAL STRENGTH EVIDENCED BY FIVE TIMES SIT TO STAND TEST (CUT SCORE >12 SECONDS INDICATES AN INCREASED FALL RISK) IMPROVING FROM 45 SECONDS TO 20 SECONDS WITHIN 9 8 WEEKS PT LTG: PATIENT WILL DEMONSTRATE INCREASED STRENGTH OF BILATERAL LES FROM 3+/5 TO 4+/5 WITHIN 8 WEEKS IN ORDER TO IMPROVE SAFETY AND STABILITY WITH GAIT AND STANDING ACTIVITIES PT STG: PATIENT WILL DEMONSTRATE IMPROVED ABILITY TO PERFORM SIT TO/FROM STAND TRANSFERS TO REDUCE THE RISK OF SKIN BREAKDOWN AND REDUCE FALL RISK FROM CGA TO INDEPENDENT WITHIN 4 WEEKS PT LTG: PATIENT WILL NOT EXHIBIT SIGNS AND SYMPTOMS OF ANTICOAGULANT TOXICITY THROUGHOUT EPISODE OF CARE. PT LTG: PATIENT WILL MAINTAIN OXYGEN SATURATION WITHIN PHYSICIAN ORDERED PARAMETERS THROUGHOUT EPISODE OF CARE. PT GOAL: PATIENT S HEART FAILURE WILL REMAIN WELL CONTROLLED THROUGHOUT EPISODE OF CARE. PT LTG: PATIENT WILL NOT EXPERIENCE CARDIAC OR RESPIRATORY COMPLICATIONS THROUGHOUT THE EPISODE OF CARE. PT LTG: PATIENT/CAREGIVER WILL DEMONSTRATE ADHERENCE TO FALL REDUCTION SELF-MANAGEMENT AND REDUCING FALL RISK FACTORS TO MINIMIZE FALL RISK BY END OF EPISODE. PT LTG: PATIENT WILL BE INDEPENDENT WITH IMPLEMENTATION OF HEP WITHIN 4 WEEKS PT GOAL: PATIENT WILL DEMONSTRATE UNDERSTANDING OF PAIN MANAGEMENT TECHNIQUES EVIDENCED BY REDUCED PAIN Encounters Start Date/Time End Date/Time Encounter Type Admission Type Attending Clinicians Care Facility Care Department Encounter ID Discharge Date Discharge Status Discharge Condition Discharge Reason Percent Goals Met 2024-11-09 00:00:00 2025-01-07 00:00:00 Outpatient NEW ADMISSION MARTÍN BIRCH [facility] [id number] 72.00
--- OUTSIDE RECORDS SUMMARY | 2025-01-06 19:00 | XMS_ITS | Clinical Summary ---
Author Organization Unknown Care Team Providers Care Health And Safety Inspector Name Role Phone KIAN LEVINE, PAYAL Unavailable Unavaila anne-marie BIRCH RN, MARTÍN Unavailable Unavailab jaycee RONDON PT, YESIKA Unavailable Unavailable JOCY PRACTICAL MINISTRIES PROFESSOR, EDWARD Unavailable Unavailable ALVARO BRANCH STORE MANAGER, ROSENDO Unavailable Unavailable Payers Payer Name Policy Type Policy Number Effective Date Expira tion Date MEDICARE.NGS.PDGM [id number] Problems Condition Name Condition Details Condition Category [...] 11-07 00:00: 00 ATHSCL HEART DISEASE OF [place] CORONARY ARTERY W/O ANG PCTRS Active 11-07 00:00: 00 CHRONIC ATRIAL FIBRILLATION , UNSPECIFIED Active 11-07 00:00: 00 OTHER CHRONIC PAIN Active 11-07 00:00: 00 GASTRO-ESOPH AGEAL REFLUX DISEASE WITHOUT ESOPHAGITIS Active 11-07 00:00: 00 PRIMARY CENTRAL SLEEP APNEA Active 11-07 00:00: 00 DEPRESSION, UNSPECIFIED Active 11-07 00:00: 00 OTHER CONSTIPATION Active 11-07 00:00: 00 HYPOKALEMIA Active 11-07 00:00: 00 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 Active 11-07 00:00: 00 OTHER CORRECTION (CURRENT) DRUG THERAPY Active 11-07 00:00: 00 [...] 11-02 00:00: 00 11-09 00:00 :00 No [id number] Per instruc tions Per instructio ns (route: oral) Med Classific ation: Locomotor System bupropion HCl XL 300 mg 24 hr tablet, extended release 11-02 00:00: 00 Yes [id number] ANTIDEPRESS ANT 1 tablet DAILY 1 tablet DAILY (route: oral) Med Classific ation: Central Nervous System Agents clonazepam 0.5 mg tablet 11-02 00:00: 00 11-09 00:00 :00 No [id number] Per instruc tions Per instructio ns (route: oral) Med Classific ation: Central Nervous System Agents esomeprazol e magnesium 40 mg capsule,del ayed release 11-02 00:00: 00 11-09 00:00 :00 No [id number] Per instruc tions Per instructio ns (route: oral) Med Classific ation: Gastroint estinal Therapy Agents Farxiga 10 mg tablet 11-02 00:00: 00 11-09 00:00 :00 No [id number] Per instruc tions Per instructio ns (route: oral) Med Classific ation: Endocrine gabapentin 300 mg capsule 11-02 00:00: 00 11-09 00:00 :00 No [id number] Per instruc tions Per instructio ns (route: oral) Med Classific ation: Central Nervous System Agents hydroxyzine pamoate 25 mg capsule 11-02 00:00: 00 11-09 00:00 :00 No [id number] Per instruc tions Per instructio ns (route: oral) Med Classific ation: Central Nervous System Agents isosorbide mononitrate ER 60 mg tablet,exte nded release 24 hr 11-02 00:00: 00 11-09 00:00 :00 No [id number] Per instruc tions Per instructio ns (route: oral) Med Classific ation: Cardiovas cular Therapy Agents lubiproston e 8 mcg capsule 11-02 00:00: 00 11-09 00:00 :00 No [id number] Per instruc tions Per instructio ns (route: oral) Med Classific ation: Gastroint estinal Therapy Agents mirtazapine 7.5 mg tablet 11-02 00:00: 00 11-09 00:00 :00 No [id number] Per instruc tions Per instructio ns (route: oral) Med Classific ation: Central Nervous System Agents pilocarpine 5 mg tablet 11-02 00:00: 00 Yes [id number] DRY MOUTH 1 tablet 2 TIMES DAILY 1 tablet 2 TIMES DAILY (route: oral) Med Classific ation: Mouth-Thr oat-Denta l - Preparati ons prazosin 5 mg capsule 11-02 00:00: 00 Yes [id number] LOWERS BLOOD PRESSURE 1 capsule BEDTIME 1 capsule BEDTIME (route: oral) Med Classific ation: Cardiovas cular Therapy Agents rosuvastati n 40 mg tablet 11-02 00:00: 00 Yes [id number] LOWERS CHOLESTEROL 1 tablet BEDTIME 1 tablet BEDTIME (route: oral) Med Classific ation: Cardiovas cular Therapy Agents sertraline 100 mg tablet 11-02 00:00: 00 Yes [id number] ANTIDEPRESS ANT 1.5 tablet BEDTIME 1.5 tablet BEDTIME (route: oral) Med Classific ation: Central Nervous System Agents sucralfate 1 gram tablet 11-02 00:00: 00 11-09 00:00 :00 No [id number] Per instruc tions Per instructio ns (route: oral) Med Classific ation: Gastroint estinal Therapy Agents trazodone 50 mg tablet 11-02 00:00: 00 Yes [id number] INSOMNIA 1.5 tablet BEDTIME 1.5 tablet BEDTIME (route: oral) Med Classific ation: Central Nervous System Agents Xarelto 20 mg tablet 11-02 00:00: 00 11-09 00:00 :00 No [id number] Per instruc tions Per instructio ns (route: oral) Med Classific ation: Hematolog ical Agents FreeStyle Verito 3 Plus Sensor device 10-31 00:00: 00 11-09 00:00 :00 No [id number] Unavailable Per instruc tions AND CHANGE EVERY 15 DAYS Per instructio ns AND CHANGE EVERY 15 DAYS (route: miscellane ous) Med Classific ation: Medical Supplies and Durable Medical Equipment (DME) Entresto 49 mg-51 mg tablet 10-16 00:00: 00 Yes [id number] HEART FAILURE 1 tablet 2 TIMES DAILY 1 tablet 2 TIMES DAILY (route: oral) Med Classific ation: Cardiovas cular Therapy Agents Kerendia 20 mg tablet 10-16 00:00: 00 11-09 00:00 :00 No [id number] Per instruc tions DAILY AT Per instructio ns DAILY AT (route: oral) Med Classific ation: Cardiovas cular Therapy Agents torsemide 5 mg tablet 10-16 00:00: 00 11-09 00:00 :00 No [id number] Per instruc tions EVERY Per instructio ns EVERY (route: oral) Med Classific ation: Cardiovas cular Therapy Agents clonidine HCl 0.1 mg tablet 10-08 00:00: 00 11-09 00:00 :00 No [id number] Per instruc tions Per instructio ns (route: oral) Med Classific ation: Cardiovas cular Therapy Agents hydroxyzine HCl 25 mg tablet 10-08 00:00: 00 11-09 00:00 :00 No [id number] Per instruc tions Per instructio ns (route: oral) Med Classific ation: Central Nervous System Agents acetaminoph en 325 mg tablet 11-09 00:00: 00 Yes [id number] PAIN MANAGEMENT 2 tablet EVERY 6 HOURS 2 tablet EVERY 6 HOURS (route: oral) Med Classific ation: Analgesic , Anti-infl ammatory or Antipyret ic baclofen 10 mg tablet 11-09 00:00: 00 Yes [id number] MUSCLE SPASM 1 tablet 3 TIMES DAILY 1 tablet 3 TIMES DAILY (route: oral) Med Classific ation: Locomotor System Calcium 600 + Minerals 600 mg (as carbonate)- 200 unit tablet 11-09 00:00: 00 Yes [id number] SUPPLEMENT 1 tablet 2 TIMES DAILY 1 tablet 2 TIMES DAILY (route: oral) Med Classific ation: Electroly te Balance-N utritiona l Products Colace 100 mg capsule 11-09 00:00: 00 Yes [id number] CONSTIPATIO N 1 capsule 2 TIMES DAILY 1 capsule 2 TIMES DAILY (route: oral) Med Classific ation: Gastroint estinal Therapy Agents esomeprazol e magnesium 40 mg capsule,del ayed release 11-09 00:00: 00 Yes [id number] GERD 1 capsule 2 TIMES DAILY 1 capsule 2 TIMES DAILY (route: oral) Med Classific ation: Gastroint estinal Therapy Agents famotidine 40 mg tablet 11-09 00:00: 00 Yes [id number] GERD 1 tablet DAILY 1 tablet DAILY (route: oral) Med Classific ation: Gastroint estinal Therapy Agents Farxiga 10 mg tablet 11-09 00:00: 00 Yes [id number] HEART FAILURE 1 tablet DAILY 1 tablet DAILY (route: oral) Med Classific ation: Endocrine gabapentin 100 mg capsule 11-09 00:00: 00 Yes [id number] NEUROPATHY 2 capsule 2 TIMES DAILY 2 capsule 2 TIMES DAILY (route: oral) Med Classific ation: Central Nervous System Agents gabapentin 300 mg capsule 11-09 00:00: 00 Yes [id number] NEUROPATHY 1 capsule BEDTIME 1 capsule BEDTIME (route: oral) Med Classific ation: Central Nervous System Agents isosorbide mononitrate ER 60 mg tablet,exte nded release 24 hr 11-09 00:00: 00 Yes [id number] CAD 2 tablet DAILY 2 tablet DAILY (route: oral) Med Classific ation: Cardiovas cular Therapy Agents melatonin 10 mg capsule 11-09 00:00: 00 Yes [id number] INSOMNIA 1 capsule BEDTIME 1 capsule BEDTIME (route: oral) Med Classific ation: Central Nervous System Agents primidone 250 mg tablet 11-09 00:00: 00 Yes [id number] TREMORS 2 tablet 2 TIMES DAILY 2 tablet 2 TIMES DAILY (route: oral) Med Classific ation: Central Nervous System Agents sucralfate 1 gram tablet 11-09 00:00: 00 Yes [id number] GERD 1 tablet 2 TIMES DAILY 1 tablet 2 TIMES DAILY (route: oral) Med Classific ation: Gastroint estinal Therapy Agents Xarelto 20 mg tablet 11-09 00:00: 00 Yes [id number] AFIB 1 tablet DAILY 1 tablet DAILY (route: oral) Med Classific ation: Hematolog ical Agents Amitiza 8 mcg capsule 11-09 00:00: 00 Yes [id number] CONSTIPATIO N 1 capsule 2 TIMES DAILY 1 capsule 2 TIMES DAILY (route: oral) Med Classific ation: Gastroint estinal Therapy Agents aspirin 81 mg tablet,flores yed release 11-09 00:00: 00 Yes [id number] HEART HEALTH 1 tablet DAILY 1 tablet DAILY (route: oral) Med Classific ation: Hematolog ical Agents cetirizine 10 mg tablet 11-09 00:00: 00 Yes [id number] ALLERGIES 1 tablet DAILY 1 tablet DAILY (route: oral) Med Classific ation: Respirato ry Therapy Agents cholecalcif glenn (vitamin D3) 25 mcg (1,000 unit) tablet 11-09 00:00: 00 Yes [id number] SUPPLEMENT 1 tablet DAILY 1 tablet DAILY (route: oral) Med Classific ation: Electroly te Balance-N utritiona l Products torsemide 5 mg tablet 11-09 00:00: 00 Yes [id number] FLUID RETENTION 1 tablet DAILY 1 tablet DAILY (route: oral) Med Classific ation: Cardiovas cular Therapy Agents Kerendia 20 mg tablet 2024-02 007 00:00: 00 Yes [id number] CARDIAC 1 tablet DAILY 1 tablet DAILY (route: oral) Alternate Route: BY MOUTH. Med Classific ation: Cardiovas cular Therapy Agents Senna Lax 8.6 mg tablet 2024-02 007 00:00: 00 Yes [id number] BOWEL 1 tablet BEDTIME 1 tablet BEDTIME [...] TION MANAGEMENT; RN TO ASSESS AND OBSERVE, BRANCH STORE MANAGER/PAPER BAG MACHINE OPERATOR TO OBSERVE FALL RISK FACTORS AND EDUCATE PATIENT/CAREGIVER ON STRATEGIES TO MINIMIZE THE RISK OF FALLING. [code = FALL REDUCTION MANAGEMENT; RN TO ASSESS AND OBSERVE, BRANCH STORE MANAGER/PAPER BAG MACHINE OPERATOR TO OBSERVE FALL RISK FACTORS AND EDUCATE PATIENT/CAREGIVER ON STRATEGIES TO MINIMIZE THE RISK OF FALLING.] Future Scheduled Test RN TO OBSE RVE, ASSESS, EVALUATE, AND DEVELOP AN INDIVIDUALIZED PLAN OF CARE. AGENCY MAY ACCEPT ORDERS FROM CONSULTING PHYSICIANS. RN TO OBSERVE AND ASSESS, BRANCH STORE MANAGER/PAPER BAG MACHINE OPERATOR TO OBSERVE FOR RISK FOR FALLS AND INSTRUCT IN FALL PREVENTION, HOME SAFETY, MEDICATION MANAGEMENT, INFECTION PREVENTION, AND NUTRITION MANAGEMENT. RN/BRANCH STORE MANAGER/PAPER BAG MACHINE OPERATOR NURSE MAY PERFORM O2 SATURATION LEVEL ON ADMISSION AND PRN FOR RN TO ASSESS/BRANCH STORE MANAGER TO OBSERVE PATIENT, WITH NOTIFICATION TO THE PHYSICIAN IF SATURATION IS 90% IN THE ABSENCE OF MORE SPECIFIC PARAMETERS FROM THE PHYSICIAN. AGENCY MAY PERFORM A RESUMPTION OF CARE VISIT FOLLOWING ANY HOSPITAL ADMISSION. RN/BRANCH STORE MANAGER/PAPER BAG MACHINE OPERATOR TO MONITOR CO-MORBID CONDITIONS LISTED ON THE PLAN OF CARE AND ANY NEW CONDITIONS THAT PRESENT THEMSELVES DURING THIS EPISODE TO IDENTIFY CHANGES AND INTERVENE TO MINIMIZE COMPLICATIONS. [code = RN TO OBSERVE, ASSESS, EVALUATE, AND DEVELOP AN INDIVIDUALIZED PLAN OF CARE. AGENCY MAY ACCEPT ORDERS FROM CONSULTING PHYSICIANS. RN TO OBSERVE AND ASSESS, BRANCH STORE MANAGER/PAPER BAG MACHINE OPERATOR TO OBSERVE FOR RISK FOR FALLS AND INSTRUCT IN FALL PREVENTION, HOME SAFETY, MEDICATION MANAGEMENT, INFECTION PREVENTION, AND NUTRITION MANAGEMENT. RN/BRANCH STORE MANAGER/PAPER BAG MACHINE OPERATOR NURSE MAY PERFORM O2 SATURATION LEVEL ON ADMISSION AND PRN FOR RN TO ASSESS/BRANCH STORE MANAGER TO OBSERVE PATIENT, WITH NOTIFICATION TO THE PHYSICIAN IF SATURATION IS 90% IN THE ABSENCE OF MORE SPECIFIC PARAMETERS FROM THE PHYSICIAN. AGENCY MAY PERFORM A RESUMPTION OF CARE VISIT FOLLOWING ANY HOSPITAL ADMISSION. RN/BRANCH STORE MANAGER/PAPER BAG MACHINE OPERATOR TO MONITOR CO-MORBID CONDITIONS LISTED ON THE PLAN OF CARE AND ANY NEW CONDITIONS THAT PRESENT THEMSELVES DURING THIS EPISODE TO IDENTIFY CHANGES AND INTERVENE TO MINIMIZE COMPLICATIONS.] Future Scheduled Test PAIN MANAG EMENT; RN TO ASSESS AND TEACH, PAPER BAG MACHINE OPERATOR/BRANCH STORE MANAGER TO OBSERVE AND TEACH AND PROVIDE EDUCATION ON PAIN MANAGEMENT TECHNIQUES. [code = PAIN MANAGEMENT; RN TO ASSESS AND TEACH, PAPER BAG MACHINE OPERATOR/BRANCH STORE MANAGER TO OBSERVE AND TEACH AND PROVIDE EDUCATION ON PAIN MANAGEMENT TECHNIQUES.] Future Scheduled Test RISK FOR H OSPITALIZATION; RN TO ASSESS/TEACH, PAPER BAG MACHINE OPERATOR/BRANCH STORE MANAGER TO OBSERVE/TEACH PATIENT/CAREGIVER ON RISK FOR HOSPITALIZATION/EMERGENCY ROOM VISITS, TEACH SIGNS AND SYMPTOMS THAT PUT PATIENT AT RISK, WHEN TO NOTIFY NURSE/PHYSICIAN OF COMPLICATIONS/DECLINE, AND WHEN TO CALL 911. [code = RISK FOR HOSPITALIZATION; RN TO ASSESS/TEACH, PAPER BAG MACHINE OPERATOR/BRANCH STORE MANAGER TO OBSERVE/TEACH PATIENT/CAREGIVER ON RISK FOR HOSPITALIZATION/EMERGENCY ROOM VISITS, TEACH SIGNS AND SYMPTOMS THAT PUT PATIENT AT RISK, WHEN TO NOTIFY NURSE/PHYSICIAN OF COMPLICATIONS/DECLINE, AND WHEN TO CALL 911.] Future Scheduled Test HEART FAIL URE MONITORING RN/PAPER BAG MACHINE OPERATOR/BRANCH STORE MANAGER TO MONITOR PATIENT FOR SIGNS AND SYMPTOMS OF HEART FAILURE EXACERBATION, MONITOR FOR ADHERENCE WITH MEDICATION AND HEART FAILURE MANAGEMENT REGIMEN. [code = HEART FAILURE MONITORING RN/PAPER BAG MACHINE OPERATOR/BRANCH STORE MANAGER TO MONITOR PATIENT FOR SIGNS AND SYMPTOMS OF HEART FAILURE EXACERBATION, MONITOR FOR ADHERENCE WITH MEDICATION AND HEART FAILURE MANAGEMENT REGIMEN.] Future Scheduled Test DIABETES M ONITORING RN/PAPER BAG MACHINE OPERATOR/BRANCH STORE MANAGER TO MONITOR BLOOD SUGAR LOG FOR BLOOD SUGAR READINGS THAT ARE BEING CHECKED BY PATIENT VIA CGM. PATIENT THERAPEUTIC BLOOD SUGAR PARAMETERS ARE 70 - 350. REPORT BLOOD SUGARS OUT OF RANGE TO PHYSICIAN. NURSE MAY PERFORM FINGER STICK BLOOD GLUCOSE NEEDED FOR SIGNS AND SYMPTOMS OF HYPO AND HYPERGLYCEMIA. RN/PAPER BAG MACHINE OPERATOR/BRANCH STORE MANAGER TO MONITOR ADHERENCE OF PATIENT PERFORMING DIABETIC FOOT CARE AND MAY PERFORM DIABETIC FOOT CARE PRN. RN/PAPER BAG MACHINE OPERATOR/BRANCH STORE MANAGER TO MONITOR FOR ADHERENCE TO DIABETIC SELF-CARE AND MANAGEMENT INCLUDING MEDICATIONS. [code = DIABETES MONITORING RN/PAPER BAG MACHINE OPERATOR/BRANCH STORE MANAGER TO MONITOR BLOOD SUGAR LOG FOR BLOOD SUGAR READINGS THAT ARE BEING CHECKED BY PATIENT VIA CGM. PATIENT THERAPEUTIC BLOOD SUGAR PARAMETERS ARE 70 - 350. REPORT BLOOD SUGARS OUT OF RANGE TO PHYSICIAN. NURSE MAY PERFORM FINGER STICK BLOOD GLUCOSE NEEDED FOR SIGNS AND SYMPTOMS OF HYPO AND HYPERGLYCEMIA. RN/PAPER BAG MACHINE OPERATOR/BRANCH STORE MANAGER TO MONITOR ADHERENCE OF PATIENT PERFORMING DIABETIC FOOT CARE AND MAY PERFORM DIABETIC FOOT CARE PRN. RN/PAPER BAG MACHINE OPERATOR/BRANCH STORE MANAGER TO MONITOR FOR ADHERENCE TO DIABETIC SELF-CARE AND MANAGEMENT INCLUDING MEDICATIONS.] Future Scheduled Test MEDICATION MANAGEMENT; RN/BRANCH STORE MANAGER/PAPER BAG MACHINE OPERATOR TO REVIEW MEDICATIONS FOR INTERACTIONS, EFFECTIVENESS OF DRUG THERAPY, AND SIGNS/SYMPTOMS OF ADVERSE REACTIONS. MAY INSTRUCT AND REINFORCE MEDICATION TEACHING RELATED TO THE USE OF MEDICATIONS, DOSAGE, FREQUENCY, PURPOSE, SIDE EFFECTS, AND TO REPORT COMPLICATIONS. [code = MEDICATION MANAGEMENT; RN/BRANCH STORE MANAGER/PAPER BAG MACHINE OPERATOR TO REVIEW MEDICATIONS FOR INTERACTIONS, EFFECTIVENESS OF DRUG THERAPY, AND SIGNS/SYMPTOMS OF ADVERSE REACTIONS. MAY INSTRUCT AND REINFORCE MEDICATION TEACHING RELATED TO THE USE OF MEDICATIONS, DOSAGE, FREQUENCY, PURPOSE, SIDE EFFECTS, AND TO REPORT COMPLICATIONS.] Future Scheduled Test AGENCY MAY PERFORM A RESUMPTION OF CARE VISIT FOLLOWING ANY HOSPITAL ADMISSION. PT TO EVALUATE, OBSERVE / ASSESS, AND MONITOR, PRACTICAL MINISTRIES PROFESSOR TO OBSERVE AND MONITOR, PROVIDE SKILLED THERAPEUTIC INTERVENTION, ACTIVITY, EDUCATION, AND TRAINING TO ADDRESS; PT/PRACTICAL MINISTRIES PROFESSOR TO PROVIDE GAIT TRAINING FOR IMPROVED MOBILITY AND /OR TO NORMALIZE GAIT PATTERN NEUROMUSCULAR RE-EDUCATION / BALANCE / POSTURAL CONTROL (PT) THERAPEUTIC EXERCISES AND ESTABLISHING A HOME EXERCISE PROGRAM (PT/PRACTICAL MINISTRIES PROFESSOR) SIT TO/FROM STAND TRANSFERS (PT/PRACTICAL MINISTRIES PROFESSOR) PT TO ASSESS / PRACTICAL MINISTRIES PROFESSOR TO MONITOR FOR AND REPORT EARLY SIGNS OF ANTICOAGULANT TOXICITY TO THE PHYSICIAN AND/OR THE RN CLINICAL SEPARATIONS SCIENTIST FOR PHYSICIAN NOTIFICATION AND TO PROVIDE PATIENT/CAREGIVER EDUCATION ON ANTICOAGULANT THERAPY PT / PRACTICAL MINISTRIES PROFESSOR TO MONITOR AND EDUCATE ON OXYGEN SATURATION DURING ADLS/IADLS, NOTIFY PHYSICIAN AND/OR THE RN CLINICAL SEPARATIONS SCIENTIST FOR PHYSICIAN NOTIFICATION AND IF O2 SATS BELOW PHYSICIAN ORDERED PARAMETERS AFTER 10 MIN OF REST PT TO ASSESS / PRACTICAL MINISTRIES PROFESSOR TO MONITOR FOR HEART FAILURE EXACERBATION AND RECORD PATIENT REPORTED WEIGHT, AND NOTIFY THE PHYSICIAN AND/OR THE RN CLINICAL SEPARATIONS SCIENTIST FOR PHYSICIAN NOTIFICATION OF HF EXACERBATION (2LB WEIGHT GAIN IN 1 DAY, 5LBS IN A WEEK OR 5 LBS OVER BASELINE; INCREASED SOB, EDEMA, NEEDING MORE PILLOWS AT NIGHT, CRACKLES IN BASIS OF THE LUNGS OR PMI SHIFT) PT TO ASSESS / PRACTICAL MINISTRIES PROFESSOR TO MONITOR CARDIO/RESPIRATORY SYSTEM; AND NOTIFY THE PHYSICIAN AND/OR THE RN CLINICAL SEPARATIONS SCIENTIST FOR PHYSICIAN NOTIFICATION FOR EARLY SIGNS AND SYMPTOMS OF EXACERBATION OR DETERIORATION. PT/PRACTICAL MINISTRIES PROFESSOR TO IDENTIFY FALL RISK FACTORS; EDUCATE THE PATIENT/CAREGIVER ON WAYS TO REDUCE FALL RISK FACTORS AND ESTABLISH HOME EXERCISE PROGRAM TO MINIMIZE FALL RISK. MAY TEACH THE PATIENT FLOOR RECOVERY WHEN CLINICALLY APPROPRIATE PT / PRACTICAL MINISTRIES PROFESSOR MAY EDUCATE ON PAIN MANAGEMENT CLINICALLY INDICATED, INCLUDING NON-PHARMACOLOGICAL PAIN REDUCTION TECHNIQUES [code = AGENCY MAY PERFORM A RESUMPTION OF CARE VISIT FOLLOWING ANY HOSPITAL ADMISSION. PT TO EVALUATE, OBSERVE / ASSESS, AND MONITOR, PRACTICAL MINISTRIES PROFESSOR TO OBSERVE AND MONITOR, PROVIDE SKILLED THERAPEUTIC INTERVENTION, ACTIVITY, EDUCATION, AND TRAINING TO ADDRESS; PT/PRACTICAL MINISTRIES PROFESSOR TO PROVIDE GAIT TRAINING FOR IMPROVED MOBILITY AND /OR TO NORMALIZE GAIT PATTERN NEUROMUSCULAR RE-EDUCATION / BALANCE / POSTURAL CONTROL (PT) THERAPEUTIC EXERCISES AND ESTABLISHING A HOME EXERCISE PROGRAM (PT/PRACTICAL MINISTRIES PROFESSOR) SIT TO/FROM STAND TRANSFERS (PT/PRACTICAL MINISTRIES PROFESSOR) PT TO ASSESS / PRACTICAL MINISTRIES PROFESSOR TO MONITOR FOR AND REPORT EARLY SIGNS OF ANTICOAGULANT TOXICITY TO THE PHYSICIAN AND/OR THE RN CLINICAL SEPARATIONS SCIENTIST FOR PHYSICIAN NOTIFICATION AND TO PROVIDE PATIENT/CAREGIVER EDUCATION ON ANTICOAGULANT THERAPY PT / PRACTICAL MINISTRIES PROFESSOR TO MONITOR AND EDUCATE ON OXYGEN SATURATION DURING ADLS/IADLS, NOTIFY PHYSICIAN AND/OR THE RN CLINICAL SEPARATIONS SCIENTIST FOR PHYSICIAN NOTIFICATION AND IF O2 SATS BELOW PHYSICIAN ORDERED PARAMETERS AFTER 10 MIN OF REST PT TO ASSESS / PRACTICAL MINISTRIES PROFESSOR TO MONITOR FOR HEART FAILURE EXACERBATION AND RECORD PATIENT REPORTED WEIGHT, AND NOTIFY THE PHYSICIAN AND/OR THE RN CLINICAL SEPARATIONS SCIENTIST FOR PHYSICIAN NOTIFICATION OF HF EXACERBATION (2LB WEIGHT GAIN IN 1 DAY, 5LBS IN A WEEK OR 5 LBS OVER BASELINE; INCREASED SOB, EDEMA, NEEDING MORE PILLOWS AT NIGHT, CRACKLES IN BASIS OF THE LUNGS OR PMI SHIFT) PT TO ASSESS / PRACTICAL MINISTRIES PROFESSOR TO MONITOR CARDIO/RESPIRATORY SYSTEM; AND NOTIFY THE PHYSICIAN AND/OR THE RN CLINICAL SEPARATIONS SCIENTIST FOR PHYSICIAN NOTIFICATION FOR EARLY SIGNS AND SYMPTOMS OF EXACERBATION OR DETERIORATION. PT/PRACTICAL MINISTRIES PROFESSOR TO IDENTIFY FALL RISK FACTORS; EDUCATE THE PATIENT/CAREGIVER ON WAYS TO REDUCE FALL RISK FACTORS AND ESTABLISH HOME EXERCISE PROGRAM TO MINIMIZE FALL RISK. MAY TEACH THE PATIENT FLOOR RECOVERY WHEN CLINICALLY APPROPRIATE PT / PRACTICAL MINISTRIES PROFESSOR MAY EDUCATE ON PAIN MANAGEMENT CLINICALLY INDICATED, [...] 2025-01-07 00:00:00 Outpatient NEW ADMISSION MARTÍN BIRCH [facility] [id number] [phone]
== END 2025-01-02 14:20 | disposition home or self-care (01) ==
PROVIDERS: Visit Provider Anesthesiology
DX: Z45.1 Encounter for adjustment and management of infusion pump (principal)
CPT/HCPCS: 62368

== ENCOUNTER → 2025-01-02 13:40 | Outpatient (BNVA) | payer MEDICARE, MEDICAID, SELFPAY | PROVIDERS: Visit Provider Anesthesiology | DX: Z45.1 Encounter for adjustment and management of infusion pump (principal); M53.3 Sacrococcygeal disorders, not elsewhere classified; M46.1 Sacroiliitis, not elsewhere classified; M54.41 Lumbago with sciatica, right side; G89.4 Chronic pain syndrome; E11.65 Type 2 diabetes mellitus with hyperglycemia | CPT/HCPCS: 62368; 99212 ==

== ENCOUNTER 2025-01-16 11:30 | Outpatient (AMB) | payer MEDICARE, MEDICAID, SELFPAY ==
--- NOTE | 2025-01-16 11:35 | A.OFFVIS_ITS ---
Vital Signs 01/16/25 11:36 Height 5 ft 8 in Weight 188 lb BMI 28.6 BP 135/69 Blood Pressure Location Rt brachial Position Sitting Respiration 16 Pulse 62 Pulse Source Pulse Oximeter Pulse Oximetry (%) 96 Oxygen Delivery Method Room Air Intake Visit Reasons: PUMP ADJUSTMENT Regional Transfer Liaison Required: No Accompanied by: Self / Same As Patient Allergies grass pollen Allergy (Mild, Verified 01/16/25 11:36) unknown tree and shrub pollen Allergy (Mild, Verified 01/16/25 11:36) itchy eyes, sneeze, runny nose No Known Drug Allergies Allergy (Unknown, Verified 01/16/25 11:36) none plastic tape Allergy (Unknown, Uncoded 07/04/24 13:03) irritation HPI Comments Details: Malik is in my office today for yet another pain pump adjustment. He reports pain improvement with last pump dose escalation, he requests today a further small dose escalation. I agreed with him and escalated the dose from 2.0 mcg of fentanyl a day to 2.4 mcg of fentanyl a day.I explained the patient that the medication in his pump is getting old and we need to replace the medication with the new batch in one month. The concentration will be the same 25 mcg per ml. Prior: History of bilateral paintech sacroiliac joint stabilization with fusion. He had significant improvement however he fell in his kitchen and started to experience lot of pain again. He was sent for the x-ray of the pelvis and it appears to be that although both implantation elements are in sacroiliac joints 1 of them got shifted vertical it to the upper portion of the joint and now has a lesser chance to provide enough of the space to form the sacroiliac bridge. Most likely that is why patient started to experience pain again. We decided to treat his pain with addition of the opioids into intrathecal pain pump. For his next pump refill I will fill it up with hydromorphone 150 micro g per mL and bupivacaine 8 milligrams/mL. I will continue to increase concentration of hydromorphone until patient's satisfaction. To temporize his pain level now I will prescribe him short course of Percocet see as below. He is interested in sacroiliac joint fusion now performed by the surgeon with surgical screws. We will find out where this procedure can not be performed and we will refer patient there. He also would like to call Nevro SCS utility sales representative and ask him to increase stimulation levels on the machine Prior: This patient is very unfortunate gentleman who is suffering from multiple pain generators. He received multiple forms of treatment to concur the existing pain generators pain. He tried multiple sessions of physical therapy in the past and he continues from time to time to return to his home exercise program to help his pain. He tried multiple medications including NSAIDs muscle relaxants and opioids. NSAIDs give him severe side effects. He is very much concerned about addictive properties of opioids. He reports muscle relaxants help his pain minimally if any. He in the past was injected with multiple procedures including medial branch blocks, radiofrequency ablations, facet joint injections, and eventually he was not very satisfied with results of this injections. He was implanted with Nevro spinal cord stimulator which he reports helped his pain radiating into the bilateral lower extremities. He also reported axial back pain aggravated with sitting and flexing forward and on the MRI he was discovered with Modic type changes in the lumbar spine. Intraseptal procedure was performed with good results for pain aggravated with prolonged sitting however pain which is lower than the lumbar spine in the projection of his pelvis actually getting worse background of alleviated lumbar spine pain. To treat this condition he was implanted with intrathecal pain pump however the intrathecal pain pump was not very instrumental to alleviate his pain. He still receives intrathecal pain pump bupivacaine only however reports significant and advanced pain in the projection of the bilateral sacroiliac joints. He had MRI of the lumbar spine which did not demonstrate any red flags and he did have abdominal and pelvic CT scan which did not demonstrate in pelvis any abnormalities which could be suspected as the pain generators related to sacroiliac joint, sacral bones or iliac bones. 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, lumbar region PVD (peripheral vascular disease) Mood disorder On beta ruddy at home Benign essential tremor CVA (cerebral vascular accident) IDDM (insulin dependent diabetes mellitus) Sleep apnea Chronic renal insufficiency Myocardial infarction CHF (congestive heart failure) CAD (coronary artery disease) AAA (abdominal aortic aneurysm) Arrhythmia On anticoagulant therapy Elevated cholesterol HTN (hypertension) History of ischemic cardiomyopathy 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 Surgical History (Updated 05/21/24 @ 10:18 by Niki Ortiz, CRISTELA) History of surgery History of surgery (~2023) Hx of brain surgery (05/10/24) Hx of shoulder surgery History of laparoscopic cholecystectomy (12/08/22) History of surgery History of surgery History of PTCA Hx of parathyroidectomy Hx of CABG History of hernia repair Hx of gastric bypass Hx of endoscopy History of colonoscopy Family History Father Hx of congenital heart disease Mother Hx of heat stroke Social History (Updated 05/21/24 @ 09:54 by Niki Ortiz, RN) Household Members: None Housing: Apartment Are you a primary after school caregiver to a significant other at home: No Do you presently have visiting nurse or other home services: Yes ([employer] 2 hours per week) Alcohol intake: current Alcohol intake frequency: does not drink Comment: counts correct Patient Tobacco Use Status: Former Tobacco user Tobacco use type: Cigarette Second Hand Smoke Exposure: No Review of Systems Const All systems reviewed & are unremarkable except as noted in HPI and below ENT Reports Normal hearing present Neuro Reports Normal hearing present and Denies Abnormal speech present Physical Exam Vital Signs: Last Vital Signs Pulse 62 01/16/25 11:36 Resp 16 01/16/25 11:36 BP 135/69 01/16/25 11:36 Pulse Ox 96 01/16/25 11:36 Oxygen Delivery Method Room Air 01/16/25 11:36 BMI result Body Mass Index 28.6 Const General: cooperative, no acute distress, alert and well groomed Orientation/consciousness: patient oriented x3 HEENT Head: Yes normocephalic and Yes atraumatic Ears: hearing grossly normal bilaterally Eyes General: appearance normal, both eyes and all related structures Eyelids: Yes eyelids normal Pupils: Equal, round and reactive pupils present EOM: EOMs intact bilaterally Neck Neck: Yes normal visual inspection and Yes no JVD Resp Effort & Inspection: normal respiratory effort, able to speak in complete sentences and no audible wheezes Cardio Jugular venous distension: no JVD Back/Spine/Pelvis Other: Tenderness of palpation paraspinal spinal region in the entire spine cervical thoracic and lumbar. SLR is negative with foot dorsiflexion. Flexing forward aggravates the pain. Flexing backwards does not change the pain. James test, Gaenslen test, pelvic compression test, pelvic destruction test, positive on the left as well as on the right. Neuro General: patient oriented x3, moves all extremities and Normal light touch and pain sensation Cranial nerves: Yes Equal, round and reactive pupils present and Yes Normal hearing present Cognition (Neuro): normal cognition Speech: No Abnormal speech present Assessment & Plan Assessment & Plan (1) Chronic left sacroiliac joint pain: Code(s): M53.3 - Sacrococcygeal disorders, not elsewhere classified; G89.29 - Other chronic pain Category: Medical (2) Sacroiliitis: Code(s): M46.1 - Sacroiliitis, not elsewhere classified Category: Medical (3) Vertebrogenic low back pain: Code(s): M54.51 - Vertebrogenic low back pain Category: Medical (4) Chronic pain syndrome: Code(s): G89.4 - Chronic pain syndrome Category: Medical (5) Poorly controlled type 2 diabetes mellitus: Code(s): E11.65 - Type 2 diabetes mellitus with hyperglycemia Category: Medical Plan: Currently pump is still on very small right, see discussion as above. (6) Chronic pain syndrome: Code(s): G89.4 - Chronic pain syndrome Category: Medical Plan: Intrathecal pain pump was interrogated and the dose was increased from 2.0micro g a day to 2.4 micro g a day. Patient still has 37.5 cc of medication in his pump. Plan Some improvement was observed with last escalation. I increased the daily dose of the medication for the patient today again. He wants nonfunctional Nevro SCS to be removed. The office is working on obtaining a cardiac clearance for the anesthesia from the dean of students. Coding Level of Care Code Est Pt Level 3 (82866) Diagnoses Chronic left sacroiliac joint pain M53.3; G89.29 Sacroiliitis M46.1 Vertebrogenic low back pain M54.51 Chronic pain syndrome G89.4 Poorly controlled type 2 diabetes mellitus E11.65
[2025-01-16 11:36] VITALS: BP 135/69; PULSE 62; RESP 16; O2SAT 96; BMI 28.6
--- OUTSIDE RECORDS SUMMARY | 2025-01-16 14:30 | XMS_ITS | Encounter Summary ---
Author Organization [employer] Address [address] [facility] 7t [place] [address] Care Team Providers Care Restaurant Host/Hostess Name Role Phone Bea Lacey MD Primary Care Provider [phone] Mariely Dennison PharmD Unavailable [phone] Cat Dumont CNP Primary Care Provider [phone] Reason for Visit * Reason Comments Med Refill Encounter Details Date Type Department Care Team ([facility] Contact Info) Description 07/20/2024 Refill [facility] MED & PEDS [address] [place], [place] [phone] Gordon Mills MD 505 [place] [address] Type 2 diabetes mellitus with hyperglycemia (CMS/HCC) [...] Care Team (Late st Contact Info) Description 02/19/2025 2:00 PM EST Office Visit [facility] MED & PEDS [address] [place] [address] Cat Dumont CNP [address] [place] [address] 06/18/2025 1:30 PM EDT Office Visit [facility] ADULT DENTAL [address] [place] [address] Daniele Barlow documented as of this encounter Visit Diagnoses Diagnosis Type 2 diabetes mellitus with hyperglycemia (HCC) documented in this encounter Additional Health Concerns Assessment Noted Time PHQ-9 Depression Total Score: 20 024 10:22 AM EDT documented as of this encounter Care Teams Restaurant Host/Hostess Relationship Specialty Start Date End Date Bea Lacey MD [address] [place] [address] PCP - General Family Medicine 09/22/22 12/23/24 Cat Dumont CNP [address] [place] [address] PCP - General Family Medicine 12/24/24 Mariely Dennison, LadiD [address] [place] [address] Pharmacist Internal Medicine 07/03/24 01/08/25 [facility] 09/01/24 12/02/24 [facility] 11/09/24 documented as of this encounter
--- OUTSIDE RECORDS SUMMARY | 2025-01-16 14:30 | XMS_ITS | Encounter Summary ---
Author Organization [employer] Address [address] [facility] 7t [place] [address] Care Team Providers Care Foam Molder Name Role Phone Bea Lacey MD Primary Care Provider [phone] Mariely Dennison PharmD Unavailable [phone] Cat Dumont CNP Primary Care Provider [phone] Encounter Details Date Type Department Care Team (Late st Contact Info) Description 06/07/2023 Orders Only [facility] MEDICINE [address] [place], [place] [phone] ProviderTia MD Social History Tobacco Use Types [...] Description 02/19/2025 2:00 PM EST Office Visit [facility] MED & PEDS [address] [place], [place] [phone] Cat Dumont CNP 505 [place] [address] 06/18/2025 1:30 PM EDT Office Visit [facility] ADULT DENTAL [address] [place] [address] Daniele Barlow documented as of this encounter [...] documented as of this encounter Care Teams Foam Molder Relationship Specialty Start Date End Date Bea Lacey MD [address] [place] [address] PCP - General Family Medicine 09/22/22 12/23/24 Cat Dumont CNP [address] [place], [place] [phone] PCP - General Family Medicine 12/24/24 Mariely Dennison, LadiD [address] [place] [address] Pharmacist Internal Medicine 07/03/24 01/08/25 [facility] 09/01/24 12/02/24 [facility] 11/09/24 documented as of this encounter
--- OUTSIDE RECORDS SUMMARY | 2025-01-16 14:30 | XMS_ITS | Encounter Summary ---
Author Organization [employer] Address [address] [facility] 7t [place] [address] Care Team Providers Care Clinical Documentation Developer Name Role Phone Bea Lacey MD Primary Care Provider [phone] Mariely Dennison PharmD Unavailable [phone] Cat Dumont CNP Primary Care Provider [phone] Encounter Details Date Type Department Care Team (Late st Contact Info) Description 07/18/2024 Orders Only [facility] [address] [place], [place] [phone] Provider, MD Tia Social History Tobacco Use [...] [facility] MED & PEDS [address] [place] [address] Cat Dumont CNP [address] [place] [address] 06/18/2025 1:30 PM EDT Office Visit [facility] ADULT DENTAL [address] [place] [address] Daniele Barlow documented as of this encounter [...] documented as of this encounter Care Teams Clinical Documentation Developer Relationship Specialty Start Date End Date Bea Lacey MD [address] [place] [address] PCP - General Family Medicine 09/22/22 12/23/24 Cat Dumont CNP [address] [place] [address] PCP - General Family Medicine 12/24/24 Mariely Dennison, [place] [address] [place] [address] Pharmacist Internal Medicine 07/03/24 01/08/25 [facility] 09/01/24 12/02/24 [facility] 11/09/24 documented as of this encounter
--- OUTSIDE RECORDS SUMMARY | 2025-01-16 14:30 | XMS_ITS | Encounter Summary ---
Author Organization [employer] Address [address] [facility] 7t [place] [address] Care Team Providers Care Insurance Claims Adjuster Name Role Phone Bea Lacey MD Primary Care Provider [phone] Mariely Deninson PharmD Unavailable Cat Dumont CNP Primary Care Provider [phone] Reason for Visit * Reason Onset Date Comments Glucose Monetor 10/08/2022 Encounter Details Date Type Department Care Team ([facility] st Contact Info) Description 10/08/2022 Telephone C [facility] MED & PEDS [address] [place] [address] Bea Lacey MD 505 [place] [address] Glucose Monetor Social History Tobacco Use Types [...] would like it to be sent to [facility], pt provided number . Patient also stated that he wants a prescription for pseudoephedrine fornasal congestion and runny nose. This message will be forwarded to provider. * Telephone Encounter - Elizabethparminder Ino Chan - 10/08/2022 8:21 AM EDT Tc from pt requesting a Freestyle Verito two Sensor. Pt states it will make it easier for him due todifficulty pinching. Pt would like it to be sent to [facility], pt provided number Please contact pt at [phone] documented in this encounter Plan of Treatment Upcoming Encounters Date Type Department Care Team (Late st Contact Info) Description 02/19/2025 2:00 PM EST Office Visit [facility] MED & PEDS [address] [place] [address] Cat Dumont CNP [address] [place] [address] 06/18/2025 1:30 PM EDT Office Visit [facility] ADULT DENTAL [address] [place] [address] Daniele Barlow documented as of this encounter Visit Diagnoses Not on filedocumented in this encounter Additional Health Concerns Assessment Noted Time PHQ-9 Depression Total Score: 7 05/29/19 23 10:45 AM EDT documented as of this encounter Care Teams Insurance Claims Adjuster Relationship Specialty Start Date End Date Bea Lacey MD [address] [place] [address] PCP - General Family Medicine 09/22/22 12/23/24 Cat Dumont CNP [address] [place] [address] PCP - General Family Medicine 12/24/24 Mariely Dennison PharmD [address] [place] [address] Pharmacist Internal Medicine 07/03/24 01/08/25 [facility] 09/01/24 12/02/24 [facility] 11/09/24 documented as of this encounter
--- OUTSIDE RECORDS SUMMARY | 2025-01-16 14:30 | XMS_ITS | Encounter Summary ---
Author Organization [employer] Address [address] [facility] 7t [place] [address] Care Team Providers Care Cloth Shearer Name Role Phone Bea Lacey MD Primary Care Provider Mariely Dennison PharmD Unavailable [phone] Cat Dumont CNP Primary Care Provider [phone] Reason for Visit * Reason Onset Date Comments FYI 08/30/2024 Encounter Details Date Type Department Care Team ([facility] st Contact Info) Description 08/30/2024 Telephone [facility] MEDICINE [address] [place], [place] [phone] Bea Lacey MD [address] [place], [place] [phone] FYI Social History Tobacco Use Types Packs/Day [...] - 08/30/2024 12:38 PM EDT Tc from [place] with [facility] calling to inform pcp that pt has been referred to their services for at home PT and will be starting care on 08/31. documented in this encounter Plan of Treatment Upcoming Encounters Date Type Department Care Team (Late st Contact Info) Description 02/19/2025 2:00 PM EST Office Visit [facility] MED & PEDS [address] [place] [address] Cat Dumont, TYREE 505 [place] [address] 06/18/2025 1:30 PM EDT Office Visit [facility] ADULT DENTAL [address] [place] [address] Daniele Barlow documented as of this encounter Visit Diagnoses Not on filedocumented in this encounter Additional Health Concerns Assessment Noted Time PHQ-9 Depression Total Score: 20 04/12/2 024 10:22 AM EDT documented as of this encounter Care Teams Cloth Shearer Relationship Specialty Start Date End Date Bea Lacey MD [address] [place] [address] PCP - General Family Medicine 09/22/22 12/23/24 Cat Dumont CNP [address] [place] [address] PCP - General Family Medicine 12/24/24 Mariely Dennison PharmD [address] [place] [address] Pharmacist Internal Medicine 07/03/24 01/08/25 [facility] 09/01/24 12/02/24 [facility] 11/09/24 documented as of this encounter
--- OUTSIDE RECORDS SUMMARY | 2025-01-16 14:30 | XMS_ITS | Encounter Summary ---
Author Organization [employer] Address [address] [facility] 7t [place] [address] Care Team Providers Care Purchaser Name Role Phone Bea Lacey MD Primary Care Provider [phone] Mariely Dennison PharmD Unavailable Cat Dumont CNP Primary Care Provider [phone] Reason for Visit * Reason Onset Date Comments Medication Question 06/10/2023 Encounter Details Date Type Department Care Team ([facility] Contact Info) Description 06/10/2023 Telephone [facility] MED & PEDS [address] [place], [place] [phone] Bea Lacey MD [address] [place], [place] [phone] Medication Question Social History Tobacco Use Types [...] Description 02/19/2025 2:00 PM EST Office Visit [facility] MED & PEDS [address] [place] [address] Cat Dumont CNP [address] [place] [address] 06/18/2025 1:30 PM EDT Office Visit [facility] ADULT DENTAL [address] [place] [address] Daniele Barlow documented as of this encounter Visit Diagnoses Not on filedocumented in this encounter Additional Health Concerns Assessment Noted Time PHQ-9 Depression Total Score: 20 024 10:22 AM EDT documented as of this encounter Care Teams Purchaser Relationship Specialty Start Date End Date Bea Lacey MD [address] [place] [address] PCP - General Family Medicine 09/22/22 12/23/24 Cat Dumont CNP [address] [place] [address] PCP - General Family Medicine 12/24/24 Mariely Dennison PharmD [address] [place] [address] Pharmacist Internal Medicine 07/03/24 01/08/25 [facility] 09/01/24 12/02/24 [facility] 11/09/24 documented as of this encounter
--- OUTSIDE RECORDS SUMMARY | 2025-01-16 14:30 | XMS_ITS | Encounter Summary ---
Author Organization [facility] Address [address] [facility] [address] [place] [address] Phone Care Team Providers Care Carpentry Specialist Name Role Phone Halle Fontenot MD Primary Care Provider [phone] Encounter Details Date Type Department Care Team (Late st Contact Info) Description 01/27/2024 Procedure Pass [facility] [address] [place] [id number] Social History Tobacco Use Types Packs/Day Years [...] on filedocumented in this encounter Care Teams Carpentry Specialist Relationship Specialty Start Date End Date Halle Fontenot MD [address] [place] [address] PCP - General Family Medicine 03/09/23 documented as of this encounter Additional Source Comments The information contained in this document represents components of the legal health record. It is not the complete legal health record.[facility]
--- OUTSIDE RECORDS SUMMARY | 2025-01-16 14:30 | XMS_ITS | Encounter Summary ---
Author Organization [employer] Address [address] [facility] 7t [place] [address] Care Team Providers Care Transfer Table Operator Name Role Phone Bea Lacey MD Primary Care Provider Mariely Dennison PharmD Unavailable [phone] Cat Dumont CNP Primary Care Provider [phone] Reason for Visit * Reason Onset Date Comments returning call RCT appt 06/26/2024 Encounter Details Date Type Department Care Team ([facility] st Contact Info) Description 06/26/2024 Telephone [facility] CH[facility] ADULT DENTAL [address] [place], [place] [phone] KandruSebastián, DDS [address] [place], [place] [phone] returning call RCT appt Social History Tobacco [...] Description 02/19/2025 2:00 PM EST Office Visit [facility] MED & PEDS [address] [place] [address] Cat Dumont CNP [address] [place] [address] 06/18/2025 1:30 PM EDT Office Visit [facility] ADULT DENTAL [address] [place] [address] Daniele Barlow documented as of this encounter Visit Diagnoses Not on filedocumented in this encounter Additional Health Concerns Assessment Noted Time PHQ-9 Depression Total Score: 20 024 10:22 AM EDT documented as of this encounter Care Teams Transfer Table Operator Relationship Specialty Start Date End Date Bea Lacey MD [address] [place] [address] PCP - General Family Medicine 09/22/22 12/23/24 Cat Dumont CNP [address] [place] [address] PCP - General Family Medicine 12/24/24 Mariely Dennison PharmD [address] [place] [address] Pharmacist Internal Medicine 07/03/24 01/08/25 [facility] 09/01/24 12/02/24 [facility] 11/09/24 documented as of this encounter
--- OUTSIDE RECORDS SUMMARY | 2025-01-16 14:30 | XMS_ITS | Encounter Summary ---
Author Organization [employer] Address [address] [facility] 7t [place] [address] Care Team Providers Care Enameler Name Role Phone Bea Lacey MD Primary Care Provider [phone] Mariely Dennison PharmD Unavailable [phone] Cat Dumont CNP Primary Care Provider [phone] Reason for Visit * Reason Comments Med Refill Encounter Details Date Type Department Care Team (Late Contact Info) Description 10/11/2022 Refill [facility] MED & PEDS [address] [place] [address] Bea Lacey MD 505 [place] [address] Chronic rhinitis Social History Tobacco Use Types [...] [facility] [address] [place] [address] Cat Dumont CNP 505 [place] [address] 06/18/2025 1:30 PM EDT Office Visit [facility] ADULT DENTAL [address] [place] [address] Daniele Barlow documented as of this encounter Visit Diagnoses Diagnosis Chronic rhinitis documented in this encounter Additional Health Concerns Assessment Noted Time PHQ-9 Depression Total Score: 7 05/29/19 10:45 AM EDT documented as of this encounter Care Teams Enameler Relationship Specialty Start Date End Date Bea Lacey MD [address] [place] [address] PCP - General Family Medicine 09/22/22 12/23/24 Cat Dumont CNP [address] [place] [address] PCP - General Family Medicine 12/24/24 Mariely Dennison PharmD [address] [place] [address] Pharmacist Internal Medicine 07/03/24 01/08/25 [facility] 09/01/24 12/02/24 [facility] 11/09/24 documented as of this encounter
--- OUTSIDE RECORDS SUMMARY | 2025-01-16 14:30 | XMS_ITS | Clinical Summary ---
Author Organization [facility] Address [address] [place] [address] Care Team Providers Care Inspector Hairspring Name Role Phone Bea Lacey Primary Care Provider [phone] Allergies No known active allergies Medications buPROPion [...] I'd recommend he obtain clearance from his fancy sewer given his history of multiple coronary events. I would also want to seek further clarification from his neurosurgeon as to what other clearance is being sought from the neurologist's standpoint. I will be reaching out to Dr. Payan's office. 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 Overview (12/30/2023): CABG with multiple [...] 2024 , 11/09/2022, 12/03/2021, Additional history exists COVID-19 Vaccine (6 - 2024-2 6 season) 2024 11/18/2022, 12/08/2021, 12/24/2020, Additional history exists Basic Metabolic Panel 11/09/2024 11/10/2023 RSV Vaccine (60+ years old a nd patients) (1 - 1-dose 75+ series) 05/01/2027 DTaP,Tdap,and Td Vaccines (3 - Td or Tdap) 09/15/2030 09/15/2020, 08/08/2009, 09/29/2005 Hepatitis B Vaccines Completed 10/08/2016, 06/15/2016, 02/12/2016 Zoster Vaccines Completed 01/31/2019, 01/21, 11/30/2018, Additional history exists Pneumococcal Vaccine: 50+ Years Completed 09/15/2020, 10/26/2018, 04/26/2012, Additional history exists Insurance MEDICARE [facility] Care Teams Inspector Hairspring Relationship Specialty Start Date End Date Bea Lacey [address] [place] [address] [place] [address] PCP - General Family Medicine 12/26/23
--- OUTSIDE RECORDS SUMMARY | 2025-01-16 14:30 | XMS_ITS | Clinical Summary ---
Author Organization [facility] Address [address] [place] [address] Phone Care Team Providers Care Window Decorator Name Role Phone Halle Fontenot MD Primary Care Provider [phone] Social History Tobacco Use Types Packs/Day Years [...] [facility] MED[facility] PART A & B [place] MED[facility]ARE PART A & B Care Teams Window Decorator Relationship Specialty Start Date End Date Halle Fontento MD [address] [place] [address] PCP - General Family Medicine 03/09/23 Additional Source Comments The information contained in this document represents components of the legal health record. It is not the complete legal health record.[facility]
--- OUTSIDE RECORDS SUMMARY | 2025-01-16 14:30 | XMS_ITS | Encounter Summary ---
Author Organization [employer] Address [address] [facility] 7t [place] [address] Care Team Providers Care Chief Deputy Sheriff Name Role Phone Bea Lacey MD Primary Care Provider [phone] Mariely Dennison PharmD Unavailable Cat Dumont CNP Primary Care Provider [phone] Reason for Visit * Reason Comments Med Refill Encounter Details Date Type Department Care Team ([facility] st Contact Info) Description 10/12/2022 Refill [facility] MED & PEDS [address] [place], [place] [phone] Gordon Mills MD 505 [place] [address] Chronic rhinitis Social History Tobacco Use Types [...] 02/19/2025 2:00 PM EST Office Visit [facility] MED & PEDS [address] [place] [address] Cat Dumont CNP 505 [place] [address] 06/18/2025 1:30 PM EDT Office Visit [facility] ADULT DENTAL [address] [place] [address] Daniele Barlow documented as of this encounter Visit Diagnoses Diagnosis Chronic rhinitis documented in this encounter Additional Health Concerns Assessment Noted Time PHQ-9 Depression Total Score: 7 05/29/19 10:45 AM EDT documented as of this encounter Care Teams Chief Deputy Sheriff Relationship Specialty Start Date End Date Bea Lacey MD [address] [place] [address] PCP - General Family Medicine 09/22/22 12/23/24 Cat Dumont CNP [address] [place] [address] PCP - General Family Medicine 12/24/24 Mariely Dennison PharmD [address] [place] [address] Pharmacist Internal Medicine 07/03/24 01/08/25 [facility] 09/01/24 12/02/24 [facility] 11/09/24 documented as of this encounter
--- OUTSIDE RECORDS SUMMARY | 2025-01-16 14:30 | XMS_ITS | Encounter Summary ---
Author Organization [employer] Address [address] [facility] 7t [place] [address] Care Team Providers Care Giver Name Role Phone Bea Lacey MD Primary Care Provider [phone] Mariely Dennison PharmD Unavailable [phone] Cat Dumont CNP Primary Care Provider [phone] Reason for Visit * Reason Onset Date Comments Medication Question 06/20/2023 Encounter Details Date Type Department Care Team ([facility] st Contact Info) Description 06/20/2023 Telephone [facility] MEDICINE [address] [place], [place] [phone] Bea Lacey MD [address] [place], [place] [phone] Medication Question Social History Tobacco Use Types [...] Description 02/19/2025 2:00 PM EST Office Visit [facility] MED & PEDS 505 [place] [address] Cat Dumont CNP [address] [place] [address] 06/18/2025 1:30 PM EDT Office Visit [facility] ADULT DENTAL [address] [place] [address] Daniele Barlow documented as of this encounter Visit Diagnoses Not on filedocumented in this encounter Additional Health Concerns Assessment Noted Time PHQ-9 Depression Total Score: 20 024 10:22 AM EDT documented as of this encounter Care Teams Giver Relationship Specialty Start Date End Date Bea Lacey MD [address] [place] [address] PCP - General Family Medicine 09/22/22 12/23/24 Cat Dumont CNP [address] [place] [address] PCP - General Family Medicine 12/24/24 Mariely Dennison PharmD [address] [place] [address] Pharmacist Internal Medicine 07/03/24 01/08/25 [facility] 09/01/24 12/02/24 [facility] 11/09/24 documented as of this encounter
--- OUTSIDE RECORDS SUMMARY | 2025-01-16 14:31 | XMS_ITS | Encounter Summary ---
Author Organization [employer] Address [address] [facility] 7t [place] [address] Care Team Providers Care Manager Regulatory Name Role Phone Gordon Mills MD Primary Care Prov ider Bea Lacey MD Primary Care Provider [phone] Mariely Dennison PharmD Unavailable [phone] Cat Dumont CNP Primary Care Provider [phone] Encounter Details Date Type Department Care Team (Latest Contact Info) Description 08/14/2020 Abstract [facility] CONVERSIONS Dental, Provider, DDS Social History [...] [facility] MED & PED[facility] [address] [place] [address] Cat Dumont CNP [address] [place], [place] [phone] 06/18/2025 1:30 PM EDT Office Visit [facility] ADULT DENTAL [address] [place], [place] [phone] Daniele Barlow documented as of this encounter Visit Diagnoses Not on filedocumented in this encounter Care Teams Manager Regulatory Relationship Specialty Start Date End Date Gordon Mills MD [address] [place] [address] PCP - General Internal Medicine 07/12/19 09/21/22 Bea Lacey MD [address] [place] [address] PCP - General Family Medicine 09/22/22 12/23/24 Cat Dumont CNP [address] [place] [address] PCP - General Family Medicine 12/24/24 Mariely Dennison PharmD [address] [place] [address] Pharmacist Internal Medicine 07/03/24 01/08/25 [facility] 09/01/24 12/02/24 [facility] 11/09/24 documented as of this encounter
--- OUTSIDE RECORDS SUMMARY | 2025-01-16 14:31 | XMS_ITS | Encounter Summary ---
Author Organization [employer] Address [address] [facility] 7t [place] [address] Care Team Providers Care Senior Php Web Developer Name Role Phone Bea Lacey MD Primary Care Provider [phone] Mariely Dennison PharmD Unavailable [phone] Cat Dumont CNP Primary Care Provider [phone] Reason for Visit * Reason Comments Med Refill Encounter Details Date Type Department Care Team ([facility] st Contact Info) Description 11/27/2024 Refill [facility] MED & PEDS [address] [place], [place] [phone] Bea Lacey MD 505 [place] [address] Gastroesophageal reflux disease without esophagitis; Essential tremor [...] Description 02/19/2025 2:00 PM EST Office Visit [facility] MED & PEDS [address] [place] [address] Cat Dumont CNP [address] [place] [address] 06/18/2025 1:30 PM EDT Office Visit [facility] ADULT DENTAL [address] [place] [address] Daniele Barlow documented as of this encounter Visit Diagnoses Diagnosis Gastroesophageal reflux disease without esophagitis Esophageal reflux Essential tremor documented in this encounter Additional Health Concerns Assessment Noted Time PHQ-9 Depression Total Score: 9 09/19/19 25 9:36 AM EDT documented as of this encounter Care Teams Senior Php Web Developer Relationship Specialty Start Date End Date Bea Lacey MD [address] [place] [address] PCP - General Family Medicine 09/22/22 12/23/24 Cat Dumont CNP [address] [place] [address] PCP - General Family Medicine 12/24/24 Mariely Dennison, [place] [address] [place] [address] Pharmacist Internal Medicine 07/03/24 01/08/25 [facility] 09/01/24 12/02/24 [facility] 11/09/24 documented as of this encounter
--- OUTSIDE RECORDS SUMMARY | 2025-01-16 14:31 | XMS_ITS | Encounter Summary ---
Author Organization [employer] Address [address] [facility] 7t [place] [address] Care Team Providers Care Pit Shoveler Name Role Phone Bea Lacey MD Primary Care Provider [phone] Mariely Dennison PharmD Unavailable [phone] Cat Dumont CNP Primary Care Provider [phone] Encounter Details Date Type Department Care Team (Late st Contact Info) Description 07/14/2023 Orders Only [facility] CHC MED & PEDS [address] [place], [place] [address] ProviderTia MD Social History Tobacco Use Types [...] [facility] MED & PEDS [address] [place], [place] [phone] Cat Dumont CNP [address] [place] [address] 06/18/2025 1:30 PM EDT Office Visit [facility] ADULT DENTAL [address] [place], [place] [phone] Daniele Barlow documented as of this encounter [...] documented as of this encounter Care Teams Pit Shoveler Relationship Specialty Start Date End Date Bea Lacey MD [address] [place] [address] PCP - General Family Medicine 09/22/22 12/23/24 Cat Dumont CNP [address] [place], [place] [phone] PCP - General Family Medicine 12/24/24 Mariely Dennison, Marbella [address] [place] [address] Pharmacist Internal Medicine 07/03/24 01/08/25 [facility] 09/01/24 12/02/24 [facility] 11/09/24 documented as of this encounter
--- OUTSIDE RECORDS SUMMARY | 2025-01-16 14:31 | XMS_ITS | Clinical Summary ---
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 Benign hypertension 12/30/2023 BPH (benign prostatic hyperplasia) 12/30/2023 Bilateral cataracts 12/30/2023 Bilateral tinnitus 12/30/2023 CVA (cerebral vascular accident) ([facility] V24, [facility] [place] V28) 12/30/2023 Heart failure with normal ej ection fraction ([facility] V24, [facility] V28) 12/30/2023 Hyperlipidemia 12/30/2023 History of parathyroidectomy 12/30/2023 CKD (chronic kidney disease) 12/30/2023 Type 2 diabetes mellitus wit h hyperglycemia ([facility] V24, [facility] V28) 12/30/2023 CAD in [place] artery 12/30/2023 Erectile dysfunction due to diseases classified elsewhere 12/30/2023 Benign essential tremor 12/30/2023 Encounters Date Type Department Care Team Description 11/11/2024 Lab Requisition [facility] - Main Lab [address] [facility] [place] [address] Lupe Cruz MD Anemia, unspecified; Other disorders of electrolyte and fluid balance, not elsewhere classified 11/04/2024 Lab Requisition [facility] Lab [address] [facility] [place] [address] Lupe Cruz MD Anemia, unspecified; Other disorders of electrolyte and fluid balance, not elsewhere classified 10/30/2024 Lab Requisition [facility] Lab [address] [facility] [place] [address] Lupe Cruz MD Anemia, unspecified; [...] K/mcL LAB HEMETOLOGY METHOD [facility] RBC 4.80 4.50 - 5.50 M/mcL LAB HEMETOLOGY METHOD 11/05/2024 1:08 PM [facility] LAB Hemoglobin 12.6(L) 13.5 - 17.5 g/dL LAB HEMETOLOGY METHOD 11/05/2024 1:08 PM [facility] LAB Hematocrit 41.3(L) 42.0 - 54.0 % LAB HEMETOLOGY METHOD 11/05/2024 1:08 PM [facility] LAB MCV 85.9 79.0 - 98.0 FL LAB HEMETOLOGY METHOD 11/05/2024 1:08 PM [facility] LAB MCH 26.2(L) 27.0 - 32.0 pcg LAB HEMETOLOGY METHOD 11/05/2024 1:08 PM EDT [facility] LAB MCHC 30.5(L) 32.0 - 37.0 g/dL LAB HEMETOLOGY METHOD 11/05/2024 1:08 PM EDT [facility] LAB RDW 17.2(H) 11.0 - 15.0 % LAB HEMETOLOGY METHOD 11/05/2024 1:08 PM EDT [facility] Platelets 268 130 - 400 K/mcL LAB HEMETOLOGY METHOD 11/05/2024 1:08 PM EDT [facility] MPV 11.3(H) 7.0 - 11.0 FL LAB HEMETOLOGY METHOD 11/05/2024 1:08 PM EDT [facility] NRBC 0.0 <1.0 % [facility] 11/05/2024 1:08 PM EDT [facility] NRBC Absolute 0.00 <0.10 K/mcL LAB HEMETOLOGY METHOD 11/05/2024 1:08 PM EDT [facility] Blood Venous blood specimen / Unknown Venipuncture / Unknown 11/05/2024 6:38 AM EDT 11/05/2024 11:55 AM EDT us Lupe Cruz MD LAB BLOOD ORDERABLES Fin al Result [facility] [address] [place] [address], * (ABNORMAL) Comprehensive metabolic panel (11/05/2024 6:38 AM EDT) Only the most recent of2 resultswithin the time period is included. Sodium 140 133 - 145 mmol/L LAB CHEMISTRY METHOD 11/05/2024 2:08 PM EDT [facility] Potassium 4.1 3.5 - 5.5 mmol/L LAB CHEMISTRY METHOD 11/05/2024 2:08 PM [facility] Chloride 106 96 - 110 mmol/L LAB CHEMISTRY METHOD 11/05/2024 2:08 PM [facility] CO2 29 21 - 32 mmol/L LAB CHEMISTRY METHOD 11/05/2024 2:08 PM [facility] Anion Gap 5 3 - 11 LAB CHEMISTRY METHOD 11/05/2024 2:08 PM [facility] Glucose 124(H) 70 - 100 mg/dL LAB CHEMISTRY METHOD 11/05/2024 2:08 PM [facility] BUN 12 5 - 25 mg/dL LAB CHEMISTRY METHOD 11/05/2024 2:08 PM [facility] Creatinine 0.83 0.70 - 1.30 mg/dL LAB CHEMISTRY METHOD 11/05/2024 2:08 PM [facility] LAB eGFR 93 >=60 mL/min/1. 73m2 LAB CHEMISTRY METHOD 11/05/2024 2:08 PM [facility] Comment:Calculation based on the Chronic Kidney Disease Epidemiology Collaboration (CKD-EPI) equation refit without adjustment for race. BUN/Creatinine Ratio 14.5 LAB CHEMISTRY METHOD 11/05/2024 2:08 PM [facility] Calcium 8.5 8.5 - 10.5 mg/dL LAB CHEMISTRY METHOD 11/05/2024 2:08 PM [facility] AST (SGOT) 21 10 - 42 unit/L LAB CHEMISTRY METHOD 11/05/2024 2:08 PM [facility] ALT (SGPT) 24 10 - 60 unit/L LAB CHEMISTRY METHOD 11/05/2024 2:08 PM [facility] Alkaline Phosphatase 124(H) 42 - 121 unit/L LAB CHEMISTRY METHOD 11/05/2024 2:08 PM [facility] Total Protein 6.0 6.0 - 8.0 g/dL LAB CHEMISTRY METHOD 11/05/2024 2:08 PM EDT [facility] Albumin 3.1(L) 3.2 - 5.0 g/dL LAB CHEMISTRY METHOD 11/05/2024 2:08 PM EDT [facility] Total Bilirubin 0.4 0.0 - 1.4 mg/dL LAB CHEMISTRY METHOD 11/05/2024 2:08 PM EDT [facility] Blood Venous blood specimen / Unknown Venipuncture / Unknown 11/05/2024 6:38 AM EDT 11/05/2024 11:53 AM EDT us Lupe Cruz MD LAB BLOOD ORDERABLES Fin al Result [facility] [address] [place] [address], [place] [phone] from Last 3 Months Insurance MEDICARE MEDICAID - [place] Care Teams Medical Claims Analyst Relationship Specialty Start Date End Date Bea Lacey MD [address] [place] [address] [facility] - General 04/04/23
--- OUTSIDE RECORDS SUMMARY | 2025-01-16 14:31 | XMS_ITS | Encounter Summary ---
Author Organization [employer] Address [address] [facility] 7t [place] [address] Care Team Providers Care Digital Production Operator Name Role Phone Bea Lacey MD Primary Care Provider [phone] Mariely Dennison PharmD Unavailable [phone] Cat Dumont CNP Primary Care Provider [phone] Reason for Visit * Reason Comments Med Refill Encounter Details Date Type Department Care Team ([facility] st Contact Info) Description 12/03/2024 Refill [facility] [address] [place], [place] [phone] Bea Lacey MD [address] [place] [address] Gastroesophageal reflux disease without esophagitis Social History [...] 02/19/2025 2:00 PM EST Office Visit [facility] MED [facility] PEDS [address] [place] [address] Cat Dumont CNP [address] [place] [address] 06/18/2025 1:30 PM EDT Office Visit [facility] ADULT DENTAL [address] [place] [address] Daniele Barlow documented as of this encounter Visit Diagnoses Diagnosis Gastroesophageal reflux disease without esophagitis Esophageal reflux documented in this encounter Additional Health Concerns Assessment Noted Time PHQ-9 Depression Total Score: 9 09/19/19 25 9:36 AM EDT documented as of this encounter Care Teams Digital Production Operator Relationship Specialty Start Date End Date Bea Lacey MD [address] [place] [address] PCP - General Family Medicine 09/22/22 12/23/24 Cat Dumont CNP [address] [place], [place] [phone] PCP - General Family Medicine 12/24/24 Mariely Dennison PharmD [address] [place] [address] Pharmacist Internal Medicine 07/03/24 01/08/25 [facility] 11/09/24 documented as of this encounter
--- OUTSIDE RECORDS SUMMARY | 2025-01-16 14:31 | XMS_ITS | Encounter Summary ---
Author Organization [employer] Address [address] [facility] 7t [place] [address] Care Team Providers Care Promotional Advertising Assistant Name Role Phone Bea Lacey MD Primary Care Provider [phone] Mariely Dennison PharmD Unavailable [phone] Cat Dumont CNP Primary Care Provider [phone] Reason for Visit * Reason Comments Med Refill Encounter Details Date Type Department Care Team ([facility] st Contact Info) Description 02/06/2024 Refill [facility] DIABETES/NUTRITION [address] [place] [address] Bea Lacey MD [address] [place], [place] [phone] Type 2 diabetes mellitus with hyperglycemia, without long-term current use of insulin ([facility]) Social History Tobacco Use Types Packs/Day Years [...] Description 02/19/2025 2:00 PM EST Office Visit [facility] MED & PEDS [address] [place] [address] Cat Dumont CNP [address] [place] [address] 06/18/2025 1:30 PM EDT Office Visit [facility] ADULT DENTAL [address] [place] [address] Daniele Barlow documented as of this encounter Visit Diagnoses Diagnosis Type 2 diabetes mellitus with hyperglycemia, without long-term current use of insulin (HCC) documented in this encounter Additional Health Concerns Assessment Noted Time PHQ-9 Depression Total Score: 20 024 10:22 AM EDT documented as of this encounter Care Teams Promotional Advertising Assistant Relationship Specialty Start Date End Date Bea Lacey MD [address] [place] [address] PCP - General Family Medicine 09/22/22 12/23/24 Cat Dumont CNP [address] [place] [address] PCP - General Family Medicine 12/24/24 Mariely Dennison, [place]ella [address] [place] [address] Pharmacist Internal Medicine 07/03/24 01/08/25 [facility] 09/01/24 12/02/24 [facility] 11/09/24 documented as of this encounter
--- OUTSIDE RECORDS SUMMARY | 2025-01-16 14:31 | XMS_ITS | Encounter Summary ---
Author Organization [employer] Address [address] [facility] 7t [place] [address] Care Team Providers Care Comp Field Case Manager Name Role Phone Bea Lacey MD Primary Care Provider [phone] Mariely Dennison PharmD Unavailable [phone] Cat Dumont CNP Primary Care Provider [phone] Reason for Visit * Reason Onset Date Comments Medication Question 02/07/2023 Encounter Details Date Type Department Care Team ([facility] st Contact Info) Description 02/07/2023 Telephone [facility] MEDICINE [address] [place], [place] [phone] Bea Lacey MD [address] [place], [place] [phone] Medication Question Social History Tobacco Use Types [...] of Linzess and had the med lowered [id number] last month. Pt states diarrhea has stopped [...] Description 02/19/2025 2:00 PM EST Office Visit [facility] MED & PEDS [address] [place] [address] Cat Dumont, SENIOR DESIGNER/ART DIRECTOR [address] [place] [address] 06/18/2025 1:30 PM EDT Office Visit [facility] ADULT DENTAL [address] [place] [address] Daniele Barlow documented as of this encounter Visit Diagnoses Not on filedocumented in this encounter Additional Health Concerns Assessment Noted Time PHQ-9 Depression Total Score: 7 05/29/19 23 10:45 AM EDT documented as of this encounter Care Teams Comp Field Case Manager Relationship Specialty Start Date End Date Bea Lacey MD [address] [place] [address] PCP - General Family Medicine 09/22/22 12/23/24 Cat Dumont CNP [address] [place] [address] PCP - General Family Medicine 12/24/24 Mariely Dennison PharmD [address] [place] [address] Pharmacist Internal Medicine 07/03/24 01/08/25 [facility] 09/01/24 12/02/24 [facility] 11/09/24 documented as of this encounter
--- OUTSIDE RECORDS SUMMARY | 2025-01-16 14:31 | XMS_ITS | Encounter Summary ---
Author Organization [employer] Address 75 [facility] 7t [place] [address] Care Team Providers Care Middleware Consultant Name Role Phone Bea Lacey MD Primary Care Provider [phone] Mariely Dennison PharmD Unavailable Cat Dumont CNP Primary Care Provider [phone] Reason for Visit * Reason Onset Date Comments Results 04/28/2023 Encounter Details Date Type Department Care Team ([facility] st Contact Info) Description 04/28/2023 Telephone [facility] MEDICINE 230 [place], [place] [phone] Bea Lacey MD [address] [place], [place] [phone] Results Social History Tobacco Use Types Packs/Day [...] [facility] MED & PEDS 505 [place] [address] Cat Dumont CNP 505 [place] [address] 06/18/2025 1:30 PM EDT Office Visit [facility] ADULT DENTAL 505 [place] [address] Daniele Barlow documented as of this encounter Visit Diagnoses Not on filedocumented in this encounter Additional Health Concerns Assessment Noted Time PHQ-9 Depression Total Score: 7 05/29/19 23 10:45 AM EDT documented as of this encounter Care Teams Middleware Consultant Relationship Specialty Start Date End Date Bea Lacey MD [address] [place] [address] PCP - General Family Medicine 09/22/22 12/23/24 Cat Dumont CNP 505 [place] [address] PCP - General Family Medicine 12/24/24 Mariely Dennison, [place] [address] [employer] [address] Pharmacist Internal Medicine 07/03/24 01/08/25 [facility] 09/01/24 12/02/24 [facility] 11/09/24 documented as of this encounter
--- OUTSIDE RECORDS SUMMARY | 2025-01-16 14:31 | XMS_ITS | Encounter Summary ---
Author Organization [employer] Address 75 [facility] 7t [place] [address] Care Team Providers Care Statistical Programmer Name Role Phone Bea Lacey MD Primary Care Provider [phone] Mariely Dennison PharmD Unavailable [phone] Cat Dumont CNP Primary Care Provider [phone] Reason for Visit * Reason Comments Med Refill Encounter Details Date Type Department Care Team ([facility] Contact Info) Description 03/16/2024 Refill [facility]C MED & PEDS 505 [place], [place] [phone] Bea Lacey MD 505 [place] [address] Social History Tobacco Use Types Packs/Day Years [...] EST Office Visit [facility] MED & PEDS 505 [place] [address] Cat Dumont CNP 505 [place] [address] 06/18/2025 1:30 PM EDT Office Visit [facility] ADULT DENTAL 505 [place] [address] Daniele Barlow documented as of this encounter Visit Diagnoses Not on filedocumented in this encounter Additional Health Concerns Assessment Noted Time PHQ-9 Depression Total Score: 20 024 10:22 AM EDT documented as of this encounter Care Teams Statistical Programmer Relationship Specialty Start Date End Date Bea Lacey MD 230 [place] [address] PCP - General Family Medicine 09/22/22 12/23/24 Cat Dumont CNP 505 [place] [address] PCP - General Family Medicine 12/24/24 Mariely Dennison PharmD 230 [place] [address] Pharmacist Internal Medicine 07/03/24 01/08/25 [facility] 09/01/24 12/02/24 [facility] 11/09/24 documented as of this encounter
--- OUTSIDE RECORDS SUMMARY | 2025-01-16 14:31 | XMS_ITS | Encounter Summary ---
Author Organization [employer] Address 75 [facility] 7t [place] [address] Care Team Providers Care Manager Restaurant Name Role Phone Bea Lacey MD Primary Care Provider [phone] Mariely Dennison PharmD Unavailable [phone] Cat Dumont CNP Primary Care Provider [phone] Reason for Visit * Reason Onset Date Comments Med reconciliation 10/08/2024 Encounter Details Date Type Department Care Team ([facility] Contact Info) Description 10/08/2024 Telephone C [facility]S 505 [place], [place] [phone] Bea Lacey MD 505 [place] [address] Med reconciliation Social History Tobacco Use Types [...] 3:26 PM EDT Tc from [place] with [facility] requesting a call back for medication reconciliation andto discuss pain medication. Contact Marcy [phone] documented in this encounter Plan of Treatment Upcoming Encounters Date Type Department Care Team ([facility] st Contact Info) Description 02/19/2025 2:00 PM EST Office Visit [facility] MED & PEDS 505 [place] [address] Cat Dumont, TYREE 505 [place] [address] 06/18/2025 1:30 PM EDT Office Visit [facility] ADULT DENTAL 505 [place] [address] Daniele Barlow documented as of this encounter Visit Diagnoses Not on filedocumented in this encounter Additional Health Concerns Assessment Noted Time PHQ-9 Depression Total Score: 9 09/19/19 25 9:36 AM EDT documented as of this encounter Care Teams Manager Restaurant Relationship Specialty Start Date End Date Bea Lacey MD 230 [place] [address] PCP - General Family Medicine 09/22/22 12/23/24 Cat Dumont CNP [address] [place] [address] PCP - General Family Medicine 12/24/24 Mariely Dennison PharmD 230 [place] [address] Pharmacist Internal Medicine 07/03/24 01/08/25 [facility] 09/01/24 12/02/24 [facility] 11/09/24 documented as of this encounter
--- OUTSIDE RECORDS SUMMARY | 2025-01-16 14:31 | XMS_ITS | Encounter Summary ---
Author Organization [employer] Address 75 [facility] 7t [place] [address] Care Team Providers Care Brine Maker Name Role Phone Juma Mariely PharmD Unavailable [phone] Cat Dumont CNP Primary Care Provider [phone] Reason for Visit * Reason Onset Date Comments Call Back Request 12/26/2024 Encounter Details Date Type Department Care Team ([facility] st Contact Info) Description 12/26/2024 Telephone [facility] CHC MED & PEDS 505 [place], [place] [phone] Cat Dumont CNP 505 [place], [place] [phone] Call Back Request Social History Tobacco Use [...] a mistake with medications Contact pt at [phone] documented in this encounter Plan of Treatment Upcoming Encounters Date Type Department Care Team ([facility] st Contact Info) Description 02/19/2025 2:00 PM EST Office Visit [facility] MED & PEDS 505 [place] [address] Cat Dumont CNP 505 [place] [address] 06/18/2025 1:30 PM EDT Office Visit [facility] ADULT DENTAL 505 [place] [address] Daniele Barlow documented as of this encounter Visit Diagnoses Not on filedocumented in this encounter Additional Health Concerns Assessment Noted Time PHQ-9 Depression Total Score: 9 09/19/19 25 9:36 AM EDT documented as of this encounter Care Teams Brine Maker Relationship Specialty Start Date End Date Cat Dumont CNP 505 [place] [address] PCP - General Family Medicine 12/24/24 Mariely Dennison PharmD 230 [place] [address] Pharmacist Internal Medicine 07/03/24 01/08/25 [facility] 11/09/24 documented as of this encounter
--- OUTSIDE RECORDS SUMMARY | 2025-01-16 14:31 | XMS_ITS | Encounter Summary ---
Author Organization [employer] Address 75 [facility] 7t [place] [address] Care Team Providers Care Curriculum Counselor Name Role Phone Bea Lacey MD Primary Care Provider [phone] Mariely Dennison PharmD Unavailable [phone] Cat Dumont CNP Primary Care Provider [phone] Encounter Details Date Type Department Care Team ([facility] st Contact Info) Description 05/21/2024 Telephone C [facility]EDS 505 [place], [place] [phone] Bea Lacey MD 505 [place], [place] [phone] Social History Tobacco Use Types Packs/Day Years [...] [facility] 505 [place] [address] Cat Dumont CNP 505 [place] [address] 06/18/2025 1:30 PM EDT Office Visit [facility] ADULT DENTAL 505 [place] [address] Daniele Barlow documented as of this encounter Visit Diagnoses Not on filedocumented in this encounter Additional Health Concerns Assessment Noted Time PHQ-9 Depression Total Score: 20 024 10:22 AM EDT documented as of this encounter Care Teams Curriculum Counselor Relationship Specialty Start Date End Date Bea Lacey MD 230 [place] [address] PCP - General Family Medicine 09/22/22 12/23/24 Cat Dumont CNP 505 [place] [address] PCP - General Family Medicine 12/24/24 Mariely Dennison PharmD 230 [place] [address] Pharmacist Internal Medicine 07/03/24 01/08/25 [facility] 09/01/24 12/02/24 [facility] 11/09/24 documented as of this encounter
--- OUTSIDE RECORDS SUMMARY | 2025-01-16 14:31 | XMS_ITS | Encounter Summary ---
Author Organization [employer] Address 75 [facility] 7t [place] [address] Care Team Providers Care Pick And Shovel Worker Name Role Phone Bea Lacey MD Primary Care Provider [phone] Mariely Dennison PharmD Unavailable [phone] Cat Dumont CNP Primary Care Provider [phone] Reason for Visit * Reason Onset Date Comments Nurse Triage 02/08/2024 Encounter Details Date Type Department Care Team ([facility] st Contact Info) Description 02/08/2024 Telephone [facility] MEDICINE 230 [place], [place] [phone] Bea Lacey MD [address] [place], [place] [phone] Nurse Triage Social History Tobacco Use Types [...] [facility] 505 [place] [address] Cat Dumont CNP 505 [place] [address] 06/18/2025 1:30 PM EDT Office Visit [facility] ADULT DENTAL 505 [place] [address] Daniele Barlow documented as of this encounter Visit Diagnoses Not on filedocumented in this encounter Additional Health Concerns Assessment Noted Time PHQ-9 Depression Total Score: 20 024 10:22 AM EDT documented as of this encounter Care Teams Pick And Shovel Worker Relationship Specialty Start Date End Date Bea Lacey MD 230 [place] [address] PCP - General Family Medicine 09/22/22 12/23/24 Cat Dumont CNP 505 [place], [place] [phone] PCP - General Family Medicine 12/24/24 Mariely Dennison, [place] 230 [place] [address] Pharmacist Internal Medicine 07/03/24 01/08/25 [facility] 09/01/24 12/02/24 [facility] 11/09/24 documented as of this encounter
--- OUTSIDE RECORDS SUMMARY | 2025-01-16 14:31 | XMS_ITS | Encounter Summary ---
Author Organization [employer] Address 75 [facility] 7t [place] [address] Care Team Providers Care Parish Nurse Name Role Phone Bea Lacey MD Primary Care Provider [phone] Mariely Dennison PharmD Unavailable [phone] Cat Dumont CNP Primary Care Provider [phone] Reason for Visit * Reason Onset Date Comments Results 03/30/2023 Encounter Details Date Type Department Care Team ([facility] st Contact Info) Description 03/30/2023 Telephone [facility] MEDICINE 230 [place], [place] [phone] Bea Lacey MD [address] [place], [place] [phone] Results Social History Tobacco Use Types Packs/Day [...] [facility] [address] [place] [address] Cat Dumont CNP 505 [place] [address] 06/18/2025 1:30 PM EDT Office Visit [facility] ADULT DENTAL [address] [place] [address] Daniele Barlow documented as of this encounter Visit Diagnoses Not on filedocumented in this encounter Additional Health Concerns Assessment Noted Time PHQ-9 Depression Total Score: 7 05/29/19 23 10:45 AM EDT documented as of this encounter Care Teams Parish Nurse Relationship Specialty Start Date End Date Bea Lacey MD 230 [place] [address] PCP - General Family Medicine 09/22/22 12/23/24 Cat Dumont CNP 505 [place] [address] PCP - General Family Medicine 12/24/24 Mariely Dennison PharmD 230 [place] [address] Pharmacist Internal Medicine 07/03/24 01/08/25 [facility] 09/01/24 12/02/24 [facility] 11/09/24 documented as of this encounter
--- OUTSIDE RECORDS SUMMARY | 2025-01-16 14:31 | XMS_ITS | Encounter Summary ---
Author Organization [employer] Address 75 [facility] 7t [place] [address] Care Team Providers Care Vamp Marker Name Role Phone Bea aLcey MD Primary Care Provider [phone] Mariely Dennison PharmD Unavailable [phone] Cat Dumont CNP Primary Care Provider [phone] Reason for Visit * Reason Onset Date Comments Med Refill 10/06/2023 Encounter Details Date Type Department Care Team (Late st Contact Info) Description 10/06/2023 Telephone [facility] MEDICINE 230 [place], [place] [phone] Bea Lacey MD [address] [place], [place] [phone] Med Refill Social History Tobacco Use Types [...] X 4 MM [facility] documented in this encounter Plan of Treatment Upcoming Encounters Date Type Department Care Team (Late st Contact Info) Description 02/19/2025 2:00 PM EST Office Visit [facility] MED & PEDS 505 [place] [address] Cat Dumont CNP 505 [place] [address] 06/18/2025 1:30 PM EDT Office Visit [facility] ADULT DENTAL 505 [place] [address] Daniele Barlow documented as of this encounter Visit Diagnoses Not on filedocumented in this encounter Additional Health Concerns Assessment Noted Time PHQ-9 Depression Total Score: 20 024 10:22 AM EDT documented as of this encounter Care Teams Vamp Marker Relationship Specialty Start Date End Date Bea Lacey MD [address] [place] [address] PCP - General Family Medicine 09/22/22 12/23/24 Cat Dumont CNP 505 [place] [address] PCP - General Family Medicine 12/24/24 Mariely Dennison PharmD [address] [place] [address] Pharmacist Internal Medicine 07/03/24 01/08/25 [facility] 09/01/24 12/02/24 [facility] 11/09/24 documented as of this encounter
--- OUTSIDE RECORDS SUMMARY | 2025-01-16 14:31 | XMS_ITS | Encounter Summary ---
Author Organization [employer] Address 75 [facility] 7t [place] [address] Care Team Providers Care Mangle Roller Name Role Phone Bea Lacey MD Primary Care Provider [phone] Mariely Dennison PharmD Unavailable [phone] Cat Dumont CNP Primary Care Provider [phone] Reason for Visit * Reason Onset Date Comments Nurse Triage 04/03/2024 Encounter Details Date Type Department Care Team ([facility] st Contact Info) Description 04/03/2024 Telephone [facility] MEDICINE 230 [place], [place] [phone] Bea Lacey MD [address] [place], [place] [phone] Nurse Triage Social History Tobacco Use Types [...] Notes * Telephone Encounter - Nita Wilson, DEVELOPMENT COORDINATOR - 04/03/2024 1:21 PM EST Triage call [...] and is followed by Pain management at [facility]. Has not notified that Dept at this [...] a new brain surgery on 04/05/24 at [facility]. Disposition reviewed and patient in agreement with plan. Will call to follow with appt. scheduling when recovered from procedure at [facility]. Patient requests that PCP be updated. Forwarded to PCP as patient requested. Protocol Used: Chest Pain (Adult) Protocol-Based Disposition: See in Office or Video Visit Today Override (Final) Disposition: Refer to Specialist Override Reason: Caller refused suggested disposition Override Notes: Patient followed by [facility] Pain Management but wants PCP updated Video [...] acuity questions The caller accepted this outcome. [phone] documented in this encounter Plan of Treatment Upcoming Encounters Date Type Department Care Team (Late st Contact Info) Description 02/19/2025 2:00 PM EST Office Visit [facility] MED & PEDS 505 [place] [address] Cat Dumont CNP 505 [place] [address] 06/18/2025 1:30 PM EDT Office Visit [facility] ADULT DENTAL 505 [place] [address] Daniele Barlow documented as of this encounter Visit Diagnoses Not on filedocumented in this encounter Additional Health Concerns Assessment Noted Time PHQ-9 Depression Total Score: 20 024 10:22 AM EDT documented as of this encounter Care Teams Mangle Roller Relationship Specialty Start Date End Date Bea Lacey MD 230 [place] [address] PCP - General Family Medicine 09/22/22 12/23/24 Cat Dumont CNP 505 [place] [address] PCP - General Family Medicine 12/24/24 Mariely Dennison PharmD 230 [place] [address] Pharmacist Internal Medicine 07/03/24 01/08/25 [facility] 09/01/24 12/02/24 [facility] 11/09/24 documented as of this encounter
--- OUTSIDE RECORDS SUMMARY | 2025-01-16 14:31 | XMS_ITS | Encounter Summary ---
Author Organization [facility] Address [address] [place] [address] Care Team Providers Care Consulting Engineer Name Role Phone Bea Lacey MD Primary Care Provider [phone] Encounter Details Date Type Department Care Team (Late st Contact Info) Description 11/11/2024 Lab Requisition [facility] [address] [facility] [place] [address] Lupe Cruz MD [address] [phone] Anemia, unspecified; Other disorders of electrolyte and [...] classified documented in this encounter Care Teams Consulting Engineer Relationship Specialty Start Date End Date Bea Lacey MD [address] [place] [address] PCP - General 04/04/23 documented as of this encounter
--- OUTSIDE RECORDS SUMMARY | 2025-01-16 14:31 | XMS_ITS | Encounter Summary ---
Author Organization [employer] Address 75 [facility] 7t [place] [address] Care Team Providers Care Cooling Pan Tender Name Role Phone Bea Lacey MD Primary Care Provider [phone] Mariely Dennison PharmD Unavailable [phone] Cat Dumont CNP Primary Care Provider [phone] Reason for Visit * Reason Onset Date Comments Nurse Triage 03/05/2024 Encounter Details Date Type Department Care Team ([facility] st Contact Info) Description 03/05/2024 Telephone C [facility] MED [facility]S 505 [place], [place] [phone] Bea Lacey MD 505 [place] [address] Nurse Triage Social History Tobacco Use Types [...] Description 02/19/2025 2:00 PM EST Office Visit [facility] MED & PEDS 505 [place], [place] [phone] Cat Dumont, AERONAUTICS TEACHER 505 [place], [place] [phone] 06/18/2025 1:30 PM EDT Office Visit [facility] ADULT DENTAL [address] [place] [address] Daniele Barlow documented as of this encounter Visit Diagnoses Not on filedocumented in this encounter Additional Health Concerns Assessment Noted Time PHQ-9 Depression Total Score: 20 024 10:22 AM EDT documented as of this encounter Care Teams Cooling Pan Tender Relationship Specialty Start Date End Date Bea Lacey MD 230 [place] [address] PCP - General Family Medicine 09/22/22 12/23/24 Cat Dumont CNP [address] [place] [address] PCP - General Family Medicine 12/24/24 Mariely Dennison PharmD 230 [place] [address] Pharmacist Internal Medicine 07/03/24 01/08/25 [facility] 09/01/24 12/02/24 [facility] 11/09/24 documented as of this encounter
--- OUTSIDE RECORDS SUMMARY | 2025-01-16 14:31 | XMS_ITS | Encounter Summary ---
Author Organization [employer] Address 75 [facility] 7t [place] [address] Care Team Providers Care Lead Electrician Name Role Phone Bea Lacey MD Primary Care Provider [phone] Mariely Dennison PharmD Unavailable [phone] Cat Dumont CNP Primary Care Provider [phone] Reason for Visit * Reason Onset Date Comments Results 11/16/2023 Encounter Details Date Type Department Care Team ([facility] st Contact Info) Description 11/16/2023 Telephone [facility] MEDICINE 230 [place], [place] [phone] Bea Lacey MD [address] [place], [place] [phone] Results Social History Tobacco Use Types Packs/Day [...] PM EDT Tc from pt returning call. Rubber Goods Assembler advise previous message. Pt verbalizes understanding. * [...] [facility] MED & PEDS 505 [place] [address] Cat Dumont CNP 505 [place] [address] 06/18/2025 1:30 PM EDT Office Visit [facility] ADULT DENTAL 505 [place] [address] Daniele Barlow documented as of this encounter Visit Diagnoses Not on filedocumented in this encounter Additional Health Concerns Assessment Noted Time PHQ-9 Depression Total Score: 20 024 10:22 AM EDT documented as of this encounter Care Teams Lead Electrician Relationship Specialty Start Date End Date Bea Lacey MD 230 [place] [address] PCP - General Family Medicine 09/22/22 12/23/24 Cat Dumont CNP [address] [place] [address] PCP - General Family Medicine 12/24/24 Mariely Dennison PharmD 230 [place] [address] Pharmacist Internal Medicine 07/03/24 01/08/25 [facility] 09/01/24 12/02/24 [facility] 11/09/24 documented as of this encounter
--- OUTSIDE RECORDS SUMMARY | 2025-01-16 14:31 | XMS_ITS | Clinical Summary ---
Author Organization [employer] Address [address] [facility] 7t [place] [address] Care Team Providers Care Major League Baseball Player Name Role Phone Cat Dumont WASHCLOTH FOLDER Primary Care Provider [phone] Allergies Active Allergy Reactions Criticality Noted Date [...] Take 2 tablets by mouth at bedtime. 05/06/2 022 Active nitroglycerin (Nitrostat) 0.[address] 1 tablet by sublingual route at the 1st sign of attack; may repeat every 5 min x 3 doses, call 911 if sx persist 021 Active zinc gluconate 50 MG tablet [...] 024 Active Blood Glucose Monitoring Suppl (FreeStyle Newport Lite) w/Device kit TEST BLOOD SUGAR DAILY [...] AT BEDTIME 90 tablet 1 025 Active torsemide (Demadex) 5 MG tabletIndications :CKD [...] THE MORNING AND EVENING 60 tablet 3 11/07/2 025 Active docusate sodium (Colace) 100 MG capsuleIndication s:Chronic idiopathic constipation TAKE ONE CAPSULE TWICE DAILY IN THE MORNING AND AT BEDTIME 60 capsule 3 01/03/20 25 9:53 AM EST 025 Active pseudoephedrine ER (Sudafed-12 Hour) 120 MG 12 hr tablet TAKE ONE TABLET EVERY TWELVE HOURS NEEDED FOR CONGESTION 60 tablet 01/05/20 25 12:33 PM EST 025 Active pilocarpine (Salagen) 5 MG tabletIndications [...] 12/17/2024 Asthenia 10/28/2024 Falling 10/28/2024 Hypokalemia 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 On examination no warning signs Chronic abdominal [...] 3 secondary to diabetes 01/28/2022 CAD in tanana artery 01/28/2022 Type 2 diabetes mellitus wit [...] Diagnosed Date Resolved Date Benzodiazepine dependence ([facility]) 01/28/2022 08/05/2022 Continuous opioid dependence ([facility]) 01/28/2022 08/05/2022 Obstructive sleep apnea syndrome 01/28/2022 06/15/2024 Encounters * This document contains information received from the source organization and may not represent a complete record from that organization. Date Type Department Care Team Description 01/08/2025 Travel 01/01/2025 Orders Only [facility] [address] [place] [address] Sari Rangel MD Type 2 diabetes mellitus with hyperglycemia, without long-term current use of insulin (HCC) (Primary Dx) 01/01/2025 Refill [facility] [address] [place] [address] Bea Lacey MD 12/31/2024 Telephone [facility] [address] [place] [address] Cat Dumont CNP 12/28/2024 Refill [facility] [address] [place] [address] Bea Lacey MD Gastroesophageal reflux disease without esophagitis; Chronic idiopathic constipation 12/27/2024 10:00 AM EST Office Visit [facility] [address] [place] [address] Shyam Gillette, DDS 12/26/2024 2:00 PM EST Office Visit [facility] [address] [place] [address] Shyam Gillette, DDS 12/26/2024 Telephone [facility] [address] [place] [address] Cat Dumont CNP Call Back Request 12/24/2024 Telephone [facility] [address] [place] [address] Cat Dumont CNP call back requested 12/24/2024 Telephone [facility] [address] [place] [phone] Katja Bassett, CRISTELA 12/19/2024 Orders Only [facility] [address] [place] [address] Cat Dumont CNP Irritable bowel syndrome with both constipation and diarrhea (Primary Dx) 12/19/2024 Telephone [facility] [address] [place] [address] Bea Lacey MD Nurse Triage 12/18/2024 9:15 AM EDT Office Visit [facility] [address] [place] [address] Cat Dumont CNP Essential tremor (Primary Dx); Type 2 diabetes mellitus with hyperglycemia, without long-term current use of insulin (HCC); Chronic right-sided low back pain without sciatica; Chronic pain in left shoulder 12/18/2024 Travel 12/17/2024 Telephone [facility] [address] [place] [address] Bea Lacey MD chart prep 12/17/2024 Telephone [facility] [address] [place] [address] Bea Lacey MD 12/14/2024 2:15 PM EDT Office Visit [facility] [address] [place] [address] Daniele Barlow Dental calculus (Primary Dx) 12/03/2024 Telephone [facility] [address] [place] [address] Bea Lacey MD 12/03/2024 Patient Outreach [facility] [address] [place] [address] Bea Lacey MD Care Coordination (Home Health Utilization) 12/03/2024 Refill [facility] [address] [place] [address] Bea Lacey MD Gastroesophageal reflux disease without esophagitis 11/27/2024 Refill [facility] [address] [place] [address] Bea Lacey MD Gastroesophageal reflux disease without esophagitis; Essential tremor 11/21/2024 Refill [facility] [address] [place] [address] Bea Lacey MD Vitamin D deficiency 11/20/2024 Orders Only [facility] [address] [place] [address] Bea Lacey MD 11/20/2024 Telephone [facility] [address] [place] [address] Bea Lacey MD 11/16/2024 Orders Only [facility] [address] [place] [address] Cat Dumont CNP Constipation, unspecified constipation type (Primary Dx); CKD stage 3 secondary to diabetes ([facility]); Muscle spasm; Pain 11/16/2024 Telephone [facility] [address] [place] [address] Bea Lacey MD Appointment 11/16/2024 Telephone [facility] [address] [place] [address] Bea Lacey MD 11/16/2024 Refill [facility] [address] [place] [address] Bea Lacey MD 11/15/2024 Telephone [facility] [address] [place] [address] Baylee De La Torre, PharmD 11/14/2024 Telephone [facility] [address] [place] [address] Bea Lacey MD 11/09/2024 Telephone [facility] [address] [place] [address] Bea Lacey MD Call Back Request 11/06/2024 Patient Outreach [facility] [address] [place] [address] Bea Lacey MD Transition Of Care (Tcm) (HDF - scheduled (direct)) 10/26/2024 Telephone [facility] [address] [place] [address] Bea Lacey MD No Show 10/17/2024 Travel 10/17/2024 Telephone [facility] [address] [place] [address] Bea Lacey MD No Show 10/16/2024 Telephone [facility] [address] [place] [address] Bea Lacey MD Chart Prep from Last 3 Months Immunizations Immunization Administration Dates Next Due Hep B, adult 10/08/2016,06/15/2016,02/12/2016 Influenza High-dose Quadriva lent Preservative Free 11/01/2023,11/09/2022,12/03/2021,12/10 Influenza Injectable Quadriv alant Preservative Free IIV4 MDCK 12/15/2020 Influenza injectable quadriv alent IIV4 with preservative 11/02/2018,02/12/2016 Influenza injectable quadriv alent preservative free 12/28/2016,11/25/2014 Influenza, High Dose Seasona l, Preservative Free 01/08/2025,10/31/2023,12/05/2017 Influenza, IIV3, injectable 10/31/2023,0 11/09/2022,12/03/2021,12/15,12/11/2019,11/02/2018,12/05/2017 ,12/28/2016,02/12/2016,11/25/2014,10/0 10/2013,04/26/2012,11/13/2010, 9,03/01/2008,01/07/2006 Influenza, Split (incl. elis fied surface antigen) 11/27/2012 Influenza, Unspecified 12/03/2021,2019,11/29/2013,11/13,10/25/2008,03/01/2008,01/07/2006 Influenza, trivalent, adjuvanted 10/31/2023 Moderna Covid-19 Vaccine 12+ 05/27/2020,04/30/19 21 Pfizer Covid-19 Vaccine 12+ 01/08/2025,0 11/18/2022,12/08/2021,12/24 Pfizer Covid-19 Vaccine 12+ Bivalent 12/08/2021, 12/08/2021 Pneumococcal Conjugate PCV 13 11/05/2018, 019 Pneumococcal Conjugate PCV 20 01/08/2025 Pneumococcal Polysaccharide PPSV23 09/15,04/26/2012,01/01/2006,09/29 RSV Bivalent 01/08/2025 TD (adult), 2 Lf tetanus tox oid, [...] Description 02/19/2025 2:00 PM EST Office Visit [facility] [address] [place] [address] Cat Dumont, WASHCLOTH FOLDER [address] [place] [address] 06/18/2025 1:30 PM EDT Office Visit [facility] [address] [place] [address] Daniele Barlow Health Maintenance Due Date Last Done Comments CT Colonography 1950 FIT DNA/Cologuard 1950 FIT 1950 FOBT 1950 Sigmoidoscopy 1950 Hepatitis A Vaccines (1 of 2 - Risk 2-dose series) 05/01/1971 Diabetes: Foot Exam 11/10/2023 11/09/2022, 11/09/2022, 11/09/2022, Additional history exists Colonoscopy 03/14/2024 03/14/2014 Colorectal Cancer Screening 03/14/2024 Lipid Panel 11/09/2024 11/10/2023, 02/, 11/09/2022, Additional history exists Depression Monitoring 03/21/2025 09/18/2024, 025 Dental Oral Exam 06/15/2025 12/14/2024, , 11/09/2023, Additional history exists Dental Prophylaxis 06/15/2025 12/14/2024, 0 06/15/2024, 11/09/2023, Additional history exists Diabetes: Hemoglobin A1C 06/18/2025 025, 06/01/2024, 11/10/2023, Additional history exists COVID-19 Vaccine ( season) 2025 01/08/2025, 11/01/2023, 11/18/2022, Additional history exists SDOH Screening 09/11/2025 09/11/2024 [...] history exists Hepatitis C Screening Completed 10/15/2019 Influenza Vaccine Completed 01/08/2025, , 10/31/2023, Additional history exists Pneumococcal Vaccine: 50+ Years Completed 01/08/2025, 09/15/2020, 11/05/2018, Additional history exists RSV Patients and Patients Aged 60 years or older Completed 01/08/2025 HIB Vaccines Aged Out No longer eligi [...] on patient's age to complete this topic Goals Goal Patient Goal Type Associated Problems Recent Progress Patient-Stated? Author Help patients manage their type 2 diabetes Care Plan Help patients manage their type 2 diabetes Mariely Spann PharmD Weekly blood pressure task Care Plan Weekly blood pressure task Mariely Spann PharmD Help patients manage their type 2 diabetes Care Plan Help patients manage their type 2 diabetes No Mariely Dennison PharmD Patient has chronic kidney disease Care Plan Patient has chronic kidney disease No Mariely Dennison PharmD Weekly blood pressure task Care Plan Weekly blood pressure task No Mariely Dennison PharmD Patient has chronic kidney disease Care Plan Patient has chronic kidney disease No Mariely Dennison PharmD Procedures Procedure Name Priority Date/Time Associated Diagnosis [...] AM EST Narrative 01/01/2025 10:40 AM EST [place] [address] XRay Report Signed Patient: Malik Maki MR#: [id number] 2 : 1950 Acct:[id number] Age/Sex: 74 / M ADM Date: 01/01/25 Loc: [facility] Attending Dr: Chino Gates MD Ordering Physician: Chino Gates MD Date of Service: 01/01/25 Procedure(s): XR hips DI min 3V Accession Number(s): [id number] cc: Chino Gates MD; Cat Dumont NP [...] iliac bone no fully included in the [id number]. XR/XR hips DI min 3V IMPRESSION: No acute fracture or dislocation. No gross degenerative changes. Prior surgical procedure. Electronically signed by: Sulaiman Pichardo MD 01/01/2025 10:37 AM EST Dictated By: Sulaiman Mae MD Signed By: <Electronically signed by Sulaiman Buchanan MD in OV> 01/01/25 1037 DD/ 1018 TD/TT: 01/01/25 1024 Transplant Nurse: Procedure Note Donotuseinterpreter, Image - 01/01/[address] [address] XRay Report Signed Patient: Malik Maki JMR#: [id number] 2 : 1950cct:[id number] Age/Sex: 74 / MADM Date: 01/01/25 Loc: HO.XRAY Attending Dr: Chino Gates MD Ordering Physician: Chino Gates MD Date of Service: 01/01/25 Procedure(s): XR hips DI min 3V Accession Number(s): [id number] cc: Chino Gates MD; Cat Dumont NP [...] iliac bone no fully included in the sdykr-[id number]. XR/XR hips DI min 3V IMPRESSION: No acute fracture or dislocation. No gross degenerative changes. Prior surgical procedure. Electronically signed by: Sulaiman Pichardo MD 01/01/2025 10:37 AM EST Dictated By: Sulaiman Mae MD Signed By: <Electronically signed by Sulaiman Buchanan MDin OV> 01/01/25 1037 DD/ 1018 TD/TT: 01/01/25 1024 Transplant Nurse: [facility] External Provider IMG XR PROCEDURES Edited Result - Final * (ABNORMAL) POCT A1c (12/18/2024 9:39 AM EDT) Pathologist [facility] Hemoglobin A1C 6.6(A) 4.0 - 5.7 % QC Media Lot # Comment:[id number] Lot# Expiration Date Comment:06/14/2026 Blood 12/18/2024 9:39 [address] EDT [facility] POINT OF CARE TEST ENTER/ EDIT ORDERABLES Final Result * (ABNORMAL) POCT glucose manually resulted (12/18/2024 9:38 AM EDT) Pathologist [facility] Glucose Blood, POC 257(A) 60 - 200 mg/dL QC Media Lot # Comment:[id number] Lot# Expiration Date Comment:03/31/2025 Blood Capillary blood specimen / Unknown 12/18/2024 9:38 AM EDT Result [facility] POINT OF CARE TEST ENTER/ EDIT ORDERABLES Final Result * Hm Diabetes Eye Exam (06/28/2024 11:09 AM EDT) Historical Provider HEALTH MAINTENANCE Final Result * Lipid Panel, Standard (11/10/2023 11:22 AM EDT) Triglycerides 76 <150 mg/dL [facility] Comment:Desirable Triglyceri de: less than 150 mg/dLBorderline High Triglyceride 150-199 mg/dLHigh Triglyceride: 200-499 mg/dLVery High Triglyceride: greater than or equal to 5OO mg/dL Cholesterol 110 <200 mg/dL [facility] Comment:Desirable Cholestero l: less than 200 mg/dLBorderline High Cholesterol: 200-239 mg/dLHigh Cholesterol: greater than 239 mg/dL LDL Cholesterol Calculated 50 <100 mg/dL [facility] Comment:Desirable LDL: less than 100 mg/dLNear Optimal/Above Optimal LDL: 110- 129 mg/dLBorderline High LDL: 130-159 mg/dLHigh LDL: 160-189 mg/dLVery High LDL: greater than or equal to 190 mg/dL HDL Cholesterol 45 >40 mg/dL [facility] Comment:Desirable HDL: great er than 40 mg/dL Note: This HDL assay may give artificially low results in patients with liver disease. Blood Venous blood specimen / Unknown 11/10/2023 11:22 AM EDT 11/10/2023 2:56 PM EDT us Bea Lacey MD LAB BLOOD ORDERABLES Final Resul t [facility] [address] [place] [address] [phone] * HEPATITIS C AB W/REFL TO [...] a test for HCV RNA (test code 16637) is suggested. For additional information please refer to http://education.[employer]/faq/ERV97w7 (This link is being provided for informational/ educational purposes only.) 10/15/2019 1:23 PM EDT us Gordon Rocha MD HISTORICAL/NON ORD ERABLE LABS Final Result [facility] [address] [place] [address], * Hm Colonoscopy (03/14/2014 12:17 PM EST) us Historical Provider HEALTH MAINTENANCE Final Result from Last 3 Months or Most Recently Relevant to Health Maintenance Additional Health Concerns Active Problems Noted Date Diagnosed Date Help patients manage their type 2 diabetes 01/07 Weekly blood pressure task 01/07/2025 Help patients manage their type 2 diabetes 01/07 Patient has chronic kidney disease 01/07/2025 Weekly blood pressure task 01/07/2025 Patient has chronic kidney disease 01/07/2025 Insurance MEDICARE Member Subscriber Plan / Payer (Ef fective 2022-Present) Name:Malik Maki Member ID:[id number] Relation to Subscriber:Self Name:Malik Maki Subscriber ID:[id number] Payer ID:STATE Group ID:Not on file Type:Medicare Address: [facility] [address] [address] [facility] STAND ADULT * Guarantor: Malik Maki Account Type Relation to Patient Date of Phone Billing Address Personal/Family Self [address] Care Teams Major League Baseball Player Relationship Specialty Start Date End Date Cat Dumont CNP [address] [place] [address] [place] [address] PCP - General Family Medicine 12/24/24 [facility] 11/09/24
--- OUTSIDE RECORDS SUMMARY | 2025-01-16 14:31 | XMS_ITS | Encounter Summary ---
Author Organization [facility] Address [address] [place] [address] Care Team Providers Care Weight Recorder Name Role Phone Bea Lacey MD Primary Care Provider [phone] Encounter Details Date Type Department Care Team (Late st Contact Info) Description 10/30/2024 Lab Requisition [facility] - Main Lab [address] [place] [address] Lupe Cruz MD [address] [id number] Anemia, unspecified; Other disorders of electrolyte and [...] LAB CHEMISTRY METHOD 10/30/2024 12:50 PM EDT [facility] Potassium 3.9 3.5 - 5.5 mmol/L LAB CHEMISTRY METHOD 10/30/2024 12:50 PM [facility] Chloride 104 96 - 110 mmol/L LAB CHEMISTRY METHOD 10/30/2024 12:50 PM [facility] CO2 25 21 - 32 mmol/L LAB CHEMISTRY METHOD 10/30/2024 12:50 PM [facility] Anion Gap 8 3 - 11 LAB CHEMISTRY METHOD 10/30/2024 12:50 PM [facility] Glucose 155(H) 70 - 100 mg/dL LAB CHEMISTRY METHOD 10/30/2024 12:50 PM [facility] BUN 16 5 - 25 mg/dL LAB CHEMISTRY METHOD 10/30/2024 12:50 PM [facility] Creatinine 1.02 0.70 - 1.30 mg/dL LAB CHEMISTRY METHOD 10/30/2024 12:50 PM [facility] eGFR 78 >=60 mL/min/1. 73m2 LAB CHEMISTRY METHOD 10/30/2024 12:50 PM [facility] Comment:Calculation based on the Chronic Kidney Disease Epidemiology Collaboration (CKD-EPI) equation refit without adjustment for race. BUN/Creatinine Ratio 15.7 LAB CHEMISTRY METHOD 10/30/2024 12:50 PM [facility] Calcium 9.4 8.5 - 10.5 mg/dL LAB CHEMISTRY METHOD 10/30/2024 12:50 PM [facility] AST (SGOT) 22 10 - 42 unit/L LAB CHEMISTRY METHOD 10/30/2024 12:50 PM [facility] ALT (SGPT) 32 10 - 60 unit/L LAB CHEMISTRY METHOD 10/30/2024 12:50 PM [facility] Alkaline Phosphatase 167(H) 42 - 121 unit/L LAB CHEMISTRY METHOD 10/30/2024 12:50 PM [facility] Total Protein 7.3 6.0 - [...] Fin al Result [facility] [address] [place] [address], * (ABNORMAL) Complete blood count (10/30/2024 7:56 AM EDT) WBC 10.0 4.8 - 10.8 K/mcL LAB HEMETOLOGY METHOD 10/30/2024 11:29 AM [facility] RBC 5.80(H) 4.50 - 5.50 M/mcL LAB HEMETOLOGY METHOD 10/30/2024 11:29 AM [facility] Hemoglobin 14.9 13.5 - 17.5 g/dL LAB HEMETOLOGY METHOD 10/30/2024 11:29 AM [facility] Hematocrit 48.6 42.0 - 54.0 % LAB HEMETOLOGY METHOD 10/30/2024 11:29 AM [facility] MCV 84.5 79.0 - 98.0 FL LAB HEMETOLOGY METHOD 10/30/2024 11:29 AM [facility] MCH 25.9(L) 27.0 - 32.0 [...] Fin al Result [facility] [address] [place] [address], documented in this encounter Visit Diagnoses Diagnosis Anemia, unspecified Other disorders of electrolyte and fluid balance, not elsewhere classified documented in this encounter Care Teams Weight Recorder Relationship Specialty Start Date End Date Bea Lacey MD [address] [place] [address] PCP - General 04/04/23 documented as of this encounter
--- OUTSIDE RECORDS SUMMARY | 2025-01-16 14:31 | XMS_ITS | Encounter Summary ---
Author Organization [employer] Address [address] [facility] 7t [place] [address] Care Team Providers Care Hr Business Partner Name Role Phone Bea Lacey MD Primary Care Provider Mariely Dennison PharmD Unavailable [phone] Cat Dumont CNP Primary Care Provider [phone] Reason for Visit * Reason Comments Med Refill Encounter Details Date Type Department Care Team ([facility] Contact Info) Description 03/30/2024 Refill [facility] [address] [place], [place] [phone] Bea Lacey MD [address] [place] [address] Essential tremor Social History Tobacco Use Types [...] Description 02/19/2025 2:00 PM EST Office Visit [facility] [address] [place] [address] Cat Dumont CNP [address] [place] [address] 06/18/2025 1:30 PM EDT Office Visit [facility] [address] [place] [address] Daniele Barlow documented as of this encounter Visit Diagnoses Diagnosis Essential tremor documented in this encounter Additional Health Concerns Assessment Noted Time PHQ-9 Depression Total Score: 20 024 10:22 AM EDT documented as of this encounter Care Teams Hr Business Partner Relationship Specialty Start Date End Date Bea Lacey MD [address] [place] [address] PCP - General Family Medicine 09/22/22 12/23/24 Cat Dumont CNP [address] [place] [address] PCP - General Family Medicine 12/24/24 Mariely Dennison PharmD [address] [place] [address] Pharmacist Internal Medicine 07/03/24 01/08/25 [facility] 09/01/24 12/02/24 [facility] 11/09/24 documented as of this encounter
--- OUTSIDE RECORDS SUMMARY | 2025-01-16 14:31 | XMS_ITS | Encounter Summary ---
Author Organization [employer] Address [address] [facility] 7t [place] [address] Care Team Providers Care Powertrain Engineer Name Role Phone Bea Lacey MD Primary Care Provider [phone] Mariely Dennison PharmD Unavailable [phone] Cat Dumont CNP Primary Care Provider [phone] Reason for Visit * Reason Onset Date Comments Nurse Triage 11/08/2023 Encounter Details Date Type Department Care Team ([facility] st Contact Info) Description 11/08/2023 Telephone [facility] [address] [place], [place] [phone] Bea Lacey MD [address] [place] [address] Nurse Triage Social History Tobacco Use Types [...] accepted this outcome. Please contact pt at [phone] documented in this encounter Plan of Treatment Upcoming Encounters Date Type Department Care Team ([facility] st Contact Info) Description 02/19/2025 2:00 PM EST Office Visit [facility] [address] [place] [address] Cat Dumont CNP [address] [place] [address] 06/18/2025 1:30 PM EDT Office Visit [facility] [address] [place] [address] Daniele Barlow documented as of this encounter Visit Diagnoses Not on filedocumented in this encounter Additional Health Concerns Assessment Noted Time PHQ-9 Depression Total Score: 20 024 10:22 AM EDT documented as of this encounter Care Teams Powertrain Engineer Relationship Specialty Start Date End Date Bea Lacey MD [address] [place] [address] PCP - General Family Medicine 09/22/22 12/23/24 Cat Dumont CNP [address] [place] [address] PCP - General Family Medicine 12/24/24 Mariely Dennison PharmD [address] [place] [address] Pharmacist Internal Medicine 07/03/24 01/08/25 [facility] 09/01/24 12/02/24 [facility] 11/09/24 documented as of this encounter
--- OUTSIDE RECORDS SUMMARY | 2025-01-16 14:31 | XMS_ITS | Encounter Summary ---
Author Organization [employer] Address [address] [facility] 7t [place] [address] Care Team Providers Care Hotel Staff Member Name Role Phone Gordon Mills MD Primary Care Prov ider Bea Lacey MD Primary Care Provider [phone] Mariely Dennison PharmD Unavailable [phone] Cat Dumont CNP Primary Care Provider [phone] Reason for Visit * Reason Onset Date Comments PCP change 09/01/2022 Encounter Details Date Type Department Care Team ([facility] st Contact Info) Description 09/01/2022 Telephone [facility] MED & PEDS [address] [place], [place] [phone] Gordon Mills MD 505 [place], [place] [phone] PCP change Social History Tobacco Use Types [...] [facility] [address] [place] [address] Cat Dumont CNP 505 [place] [address] 06/18/2025 1:30 PM EDT Office Visit [facility] ADULT DENTAL [address] [place] [address] Daniele Barlow documented as of this encounter Visit Diagnoses Not on filedocumented in this encounter Additional Health Concerns Assessment Noted Time PHQ-9 Depression Total Score: 7 05/29/19 23 10:45 AM EDT documented as of this encounter Care Teams Hotel Staff Member Relationship Specialty Start Date End Date Gordon Mills MD [address] [place] [address] PCP - General Internal Medicine 07/12/19 09/21/22 Bea Lacey MD [address] [place] [address] PCP - General Family Medicine 09/22/22 12/23/24 Cat Dumont CNP [address] [place] [address] PCP - General Family Medicine 12/24/24 Mariely Dennison PharmD [address] [place] [address] Pharmacist Internal Medicine 07/03/24 01/08/25 [facility] 09/01/24 12/02/24 [facility] 11/09/24 documented as of this encounter
--- OUTSIDE RECORDS SUMMARY | 2025-01-16 14:31 | XMS_ITS | Encounter Summary ---
Author Organization [employer] Address [address] [facility] 7t [place] [address] Care Team Providers Care Manager Rehab Name Role Phone Bea Lacey MD Primary Care Provider [phone] Mariely Dennison PharmD Unavailable [phone] Cat Dumont CNP Primary Care Provider [phone] Encounter Details Date Type Department Care Team (Late st Contact Info) Description 02/29/2024 Orders Only [facility] CHC MED & PEDS [address] [place], [place] [phone] Bea Lacey MD 505 [place], [place] [phone] Type 2 diabetes mellitus with hyperglycemia (CMS/HCC) [...] Description 02/19/2025 2:00 PM EST Office Visit [facility] MED & PEDS [address] [place] [address] Cat Dumont CNP [address] [place] [address] 06/18/2025 1:30 PM EDT Office Visit [facility] ADULT DENTAL [address] [place] [address] Daniele Barlow documented as of this encounter Visit Diagnoses Diagnosis Type 2 diabetes mellitus with hyperglycemia (HCC) documented in this encounter Additional Health Concerns Assessment Noted Time PHQ-9 Depression Total Score: 20 024 10:22 AM EDT documented as of this encounter Care Teams Manager Rehab Relationship Specialty Start Date End Date Bea Lacey MD [address] [place] [address] PCP - General Family Medicine 09/22/22 12/23/24 Cat Dumont CNP [address] [place] [address] PCP - General Family Medicine 12/24/24 Mariely Dennison PharmD 230 [place] [address] Pharmacist Internal Medicine 07/03/24 01/08/25 [facility] 09/01/24 12/02/24 [facility] 11/09/24 documented as of this encounter
--- OUTSIDE RECORDS SUMMARY | 2025-01-16 14:31 | XMS_ITS | Encounter Summary ---
Author Organization [facility] Address [address] [place] [address] Care Team Providers Care Box Hinge And Lock Attacher Name Role Phone Bea Lacey MD Primary Care Provider [phone] Encounter Details Date Type Department Care Team (Late st Contact Info) Description 11/04/2024 Lab Requisition [facility] Main Lab [address] [place] [address] Lupe Cruz MD [address] [phone] Anemia, unspecified; Other disorders of electrolyte and [...] 11/05/2024 2:08 PM EDT [facility] Potassium 4.1 3.5 - 5.5 mmol/L LAB CHEMISTRY METHOD 11/05/2024 2:08 PM [facility] LAB Chloride 106 96 - 110 mmol/L LAB CHEMISTRY METHOD 11/05/2024 2:08 PM [facility] LAB CO2 29 21 - 32 mmol/L LAB CHEMISTRY METHOD 11/05/2024 2:08 PM [facility] LAB Anion Gap 5 3 - 11 LAB CHEMISTRY METHOD 11/05/2024 2:08 PM [facility] LAB Glucose 124(H) 70 - 100 mg/dL LAB CHEMISTRY METHOD 11/05/2024 2:08 PM [facility] BUN 12 5 - 25 mg/dL LAB CHEMISTRY METHOD 11/05/2024 2:08 PM [facility] LAB Creatinine 0.83 0.70 - 1.30 mg/dL LAB CHEMISTRY METHOD 11/05/2024 2:08 PM [facility] LAB eGFR 93 >=60 mL/min/1. 73m2 LAB CHEMISTRY METHOD 11/05/2024 2:08 PM [facility] LAB Comment:Calculation based on the Chronic Kidney Disease Epidemiology Collaboration (CKD-EPI) equation refit without adjustment for race. BUN/Creatinine Ratio 14.5 LAB CHEMISTRY METHOD 11/05/2024 2:08 PM [facility] LAB Calcium 8.5 8.5 - 10.5 mg/dL LAB CHEMISTRY METHOD 11/05/2024 2:08 PM [facility] LAB AST (SGOT) 21 10 - 42 unit/L LAB CHEMISTRY METHOD 11/05/2024 2:08 PM [facility] LAB ALT (SGPT) 24 10 - 60 unit/L LAB CHEMISTRY METHOD 11/05/2024 2:08 PM [facility] LAB Alkaline Phosphatase 124(H) 42 - 121 unit/L LAB CHEMISTRY METHOD 11/05/2024 2:08 PM [facility] LAB Total Protein 6.0 6.0 - 8.0 g/dL LAB CHEMISTRY METHOD 11/05/2024 2:08 PM EDT [facility] LAB Albumin 3.1(L) 3.2 - 5.0 g/dL LAB CHEMISTRY METHOD 11/05/2024 2:08 PM EDT [facility] LAB Total Bilirubin 0.4 0.0 - 1.4 mg/dL LAB CHEMISTRY METHOD 11/05/2024 2:08 PM EDT [facility] LAB Blood Venous blood specimen / Unknown Venipuncture / Unknown 11/05/2024 6:38 AM EDT 11/05/2024 11:53 AM EDT us Lupe Cruz MD LAB BLOOD ORDERABLES Fin al Result [facility] [address] [place] [address], * (ABNORMAL) Complete blood count (11/05/2024 6:38 AM EDT) WBC 4.6(L) 4.8 - 10.8 K/mcL LAB HEMETOLOGY METHOD [facility] RBC 4.80 4.50 - 5.50 M/mcL LAB HEMETOLOGY METHOD 11/05/2024 1:08 PM [facility] Hemoglobin 12.6(L) 13.5 - 17.5 g/dL LAB HEMETOLOGY METHOD 11/05/2024 1:08 PM EDT [facility] LAB Hematocrit 41.3(L) 42.0 - 54.0 % LAB HEMETOLOGY METHOD 11/05/2024 1:08 PM EDT [facility] LAB MCV 85.9 79.0 - 98.0 FL LAB HEMETOLOGY METHOD 11/05/2024 1:08 PM [facility] LAB MCH 26.2(L) 27.0 - 32.0 pcg LAB HEMETOLOGY METHOD 11/05/2024 1:08 PM EDT [facility] LAB MCHC 30.5(L) 32.0 - 37.0 g/dL LAB HEMETOLOGY METHOD 11/05/2024 1:08 PM EDT [facility] LAB RDW 17.2(H) 11.0 - 15.0 % LAB HEMETOLOGY METHOD 11/05/2024 1:08 PM EDT [facility] Platelets 268 130 - 400 K/mcL LAB HEMETOLOGY METHOD 11/05/2024 1:08 PM EDT [facility] LAB MPV 11.3(H) 7.0 - 11.0 FL LAB HEMETOLOGY METHOD 11/05/2024 1:08 PM EDT [facility] LAB NRBC 0.0 <1.0 % LAB HEMETOLOGY METHOD 11/05/2024 1:08 PM EDT [facility] NRBC Absolute 0.00 <0.10 K/mcL LAB HEMETOLOGY METHOD 11/05/2024 1:08 PM EDT [facility] LAB Blood Venous blood specimen / Unknown Venipuncture / Unknown 11/05/2024 6:38 AM EDT 11/05/2024 11:55 AM EDT us Lupe Cruz MD LAB BLOOD ORDERABLES Fin al Result [facility] [address] [place] [address], [place] [phone] documented in this encounter Visit Diagnoses Diagnosis Anemia, unspecified Other disorders of electrolyte and fluid balance, not elsewhere classified documented in this encounter Care Teams Box Hinge And Lock Attacher Relationship Specialty Start Date End Date Bea Lacey MD [address] [place] [address] PCP - General 04/04/23 documented as of this encounter
--- OUTSIDE RECORDS SUMMARY | 2025-01-16 14:32 | XMS_ITS | Clinical Summary ---
Author Organization [facility] Address [address] [address] Phone Care Team Providers Care Steam Hoist Operator Name Role Phone Lula Lacey MD Primary Care Provider [phone] Allergies Active Allergy Reactions Criticality Noted Date [...] and 250 mg before bedtime. Active Methylnaltrexone Grant (Relistor) 150 MG tablet Take by mouth [...] Only [facility] [address] [address] Get Galo MD Chronic kidney disease stage 2; Essential tremor 12/22/2024 Orders Only [facility] [address] [address] Jeri Keller ARNP Stage 3a chronic kidney disease (HCC); Hypertension; Nephrolithiasis from Last 3 Months Immunizations Immunization Administration [...] Visit [facility] [address] [address] Get Galo MD [address] [address] Health Maintenance Due Date Last Done Comments Colorectal Cancer Screening: Annual FOBT 2001 Colorectal Cancer Screening: Colonoscopy 2001 Colorectal Cancer Screening: Sigmoidoscopy 2001 Hepatitis B Vaccine (1 of 3 - Risk 3-dose series) 2012 10/08/2016, 06/15/2016, 02/12/2016 Diabetes: Ophthalmology Exam 03/23/2020 Diabetes: Pedal Pulse Checked 03/23/2020 Diabetes: Sensory Foot Exam 03/23/2020 Diabetes: Visual Foot Exam 03/23/2020 Diabetes: Hemoglobin A1C 03/20/2025 025, 06/01/2024, 11/10/2023, Additional history exists Influenza Vaccine Completed 01/08/2025, , 12/03/2021, Additional history exists Pneumococcal Vaccine: 50+ Years Completed 01/08/2025, 09/15/2020, 10/26/2018, Additional history exists Pneumococcal Vaccine: Peds ( 0 to 5 Years) and At-Risk Patients (6 to 49 Years) Discontinued 01/08/2025, 09/15/2020, 10/26/2018, Additional history exists Procedures Procedure Name Priority Date/Time Associated Diagnosis Comments PROTEIN / CREATININE RATIO, URINE Routine 01/04/2025 11:25 AM EST Chronic kidney disease stage 2 Essential tremor URINE ALBUMIN / CREATININE RATIO Routine 01/04/2025 11:25 AM EST Chronic kidney disease stage 2 Essential tremor URINALYSIS WITH MICROSCOPIC Routine 01/04/2025 11:25 AM EST Chronic kidney disease stage 2 Essential tremor RENAL FUNCTION PANEL Routine 01/04/2025 11:25 AM EST Chronic kidney disease stage 2 Essential tremor MICROSCOPIC EXAMINATION - DO NOT USE Routine 01/04/2025 11:25 AM EST PTH, INTACT Routine 12/12/2024 2:47 PM EDT URINE ALBUMIN / CREATININE RATIO Routine 12/12/2024 2:47 PM EDT PROTEIN / CREATININE RATIO, URINE Routine 12/12/2024 2:47 PM EDT CBC Routine 12/12/2024 2:47 PM EDT RENAL FUNCTION PANEL Routine 12/12/2024 2:47 PM EDT BLOOD PANEL (HC) Routine 09/21/2018 12:0 0 AM EDT from Last 3 Months or Most Recently Relevant to Health Maintenance Results * Microscopic Examination (01/04/2025 11:25 AM EST) WBC, Urine None seen 0 - 5 /hpf [facility] RBC, Urine None seen 0 - 2 /hpf [facility] Squamous Epithelial, Urine None seen 0 - 10 /hpf [facility] Casts None seen None seen /lpf [facility] Bacteria, Urine None seen None seen/Few [facility] 01/04/2025 11:2 5 AM EST 01/04/2025 us Get Galo MD LAB MICROBIOLOGY - GENERAL OR DERABLES Final Result [facility] [address] [place] [address] * Protein, Total, Random Urine w/Creatinine (Protein/Creat Ratio) (01/04/2025 11:25 AM EST) Only the most recent of2 resultswithin the time period is included. Creatinine, Ur 30.8 Not Estab. mg/dL [facility] Protein, Ur 4.0 Not Estab. mg/dL [facility] Urine Protein/Creatin ine Ratio 130 0 - 200 mg/g creat [facility] Urine specimen (specimen) Urine specimen obtained by clean catch procedure / Unknown 01/04/2025 11:25 AM EST 01/04/2025 Get Galo MD LAB URINE ORDERABLES Final Re sult Performing Organization Address City/[facility]/ZIP Co de Phone Number [facility] [address] [place] [address] * Urine Albumin / Creatinine Ratio (01/04/2025 11:25 AM EST) Only the most recent of2 resultswithin the time period is included. Albumin, Urine 6.0 Not Estab. ug/mL [facility] Albumin/Creatin ine Ratio 19 0 - 29 mg/g creat [facility] Comment: Normal: 0 - 29 Moderately increased: 30 - 300 Severely increased: >300 Urine specimen (specimen) Urine specimen obtained by clean catch procedure / Unknown 01/04/2025 11:25 AM EST 01/04/2025 Get Galo MD LAB URINE ORDERABLES Final [facility] Performing Organization Address City/[facility]/ZIP Co de Phone Number [facility] [address] [place] [address] * (ABNORMAL) Urinalysis with microscopic (01/04/2025 11:25 AM EST) Specific [place], Urine 1.017 1.005 - 1.030 [facility] [phone] pH Urine 6.0 5.0 - 7.5 [facility] [phone] Color, Urine Yellow Yellow [facility] Appearance Urine Clear Clear [facility] WBC Esterase Urine Negative Negative [facility] [phone] Protein, Ur Negative Negative/Tra ce [facility] [phone] Glucose, Ur 3+(A) Negative [facility] Ketones, Urine Negative Negative [facility] Blood Urine Negative Negative [facility] Bilirubin Urine Negative Negative [facility] [phone] Urobilinogen Urine 0.2 0.2 - 1.0 mg/dL [facility] Nitrite, Urine Negative Negative [facility] Microscopic Examination Comment [facility] Comment:Microscopic follows if indicated. Other Microsc. Observations See below: [facility] [phone] Comment:Microscopic was casa cated and was performed. Urine specimen (specimen) Urine specimen obtained by clean catch procedure / Unknown 01/04/2025 11:25 AM EST 01/04/2025 us Get Galo MD LAB URINE ORDERABLES Final [facility] [address] [place] [address] * (ABNORMAL) Renal Function Panel (01/04/2025 11:25 AM EST) Only the most recent of2 resultswithin the time period is included. Glucose 133(H) 70 - 99 mg/dL [facility] BUN 14 8 - 27 mg/dL [facility] Creatinine 0.87 0.76 - 1.27 mg/dL [facility] eGFR CKD-EPI CR 2020 92 >59 mL/min/1.7 3 [facility] BUN/Creatinine Ratio 16 10 - 24 [facility] Sodium 145(H) 134 - 144 mmol/L [facility] Potassium 4.5 3.5 - 5.2 mmol/L [facility] Chloride 107(H) 96 - 106 mmol/L [facility] Bicarbonate (CO2) 28 20 - 29 mmol/L [facility] Calcium 8.9 8.6 - 10.2 mg/dL [facility] Albumin 4.1 3.8 - 4.8 g/dL [facility] Phosphorus 3.7 2.8 - 4.1 mg/dL [facility] Blood specimen (specimen) Venous blood / Unknown 01/04/2025 11:25 AM EST 01/04/2025 us Get Galo MD LAB BLOOD ORDERABLES Final Re sult [facility] [address], [address] [place] [address] * (ABNORMAL) CBC (12/12/2024 2:47 PM EDT) WBC 5.7 3.4 - 10.8 x10E3/uL [facility] RBC 4.40 4.14 - 5.80 x10E6/uL [facility] Hemoglobin 11.8(L) 13.0 - 17.7 g/dL [facility] Hematocrit 38.0 37.5 - 51.0 % [facility] MCV 86 79 - 97 fL [facility] MCH 26.8 26.6 - 33.0 pg [facility] MCHC 31.1(L) 31.5 - 35.7 g/dL [facility] RDW 15.7(H) 11.6 - 15.4 % [facility] Platelets 252 150 - 450 x10E3/uL [facility] 12/12/2024 2:47 PM EDT 12/12/2024 [facility] LAB BLOOD ORDERABLES Final Result [facility] [address] [place] [address] * PTH, Intact (12/12/2024 2:47 PM EDT) Pathologist [facility] PTH 27 15 - 65 pg/mL [facility] 12/12/2024 2:47 PM EDT 12/12/2024 [facility] LAB BLOOD ORDERABLES Final Result Performing Organization Address City/[facility] Co de Phone Number [facility] [address] [place] [address] * (ABNORMAL) Blood Panel (09/21/2018 12:00 AM [...] ug/dl [facility] 09/21/2018 us [facility] [id number] LICITED RESULTS Final Result [facility] from Last 3 Months or Most Recently Relevant to Health Maintenance Insurance Medicare Medicaid [place] Medicare Medicaid [place] Care Teams Steam Hoist Operator Relationship Specialty Start Date End Date Lula Lacey MD [address] [place] [address] PCP - General Internal Medicine 01/25/24
--- OUTSIDE RECORDS SUMMARY | 2025-01-16 14:32 | XMS_ITS | Encounter Summary ---
Author Organization [employer] Address [address] [facility] 7t [place] [address] Care Team Providers Care Loan Processor Name Role Phone Gordon Mills MD Primary Care Prov ider Bea Lacey MD Primary Care Provider [phone] Mariely Dennison PharmD Unavailable [phone] Cat Dumont CNP Primary Care Provider [phone] Reason for Visit * Reason Comments Med Refill Encounter Details Date Type Department Care Team ([facility] Contact Info) Description 09/02/2022 Refill [facility] CHC MED & PEDS [address] [place], [place] [phone] Peter Barlow MD [address] [place] [address] Social History Tobacco Use Types Packs/Day Years [...] 2:00 PM EST Office Visit [facility] MED & PEDS [address] [place] [address] Cat Dumont CNP [address] [place] [address] 06/18/2025 1:30 PM EDT Office Visit [facility] ADULT DENTAL [address] [place] [address] Daniele Barlow documented as of this encounter Visit Diagnoses Not on filedocumented in this encounter Additional Health Concerns Assessment Noted Time PHQ-9 Depression Total Score: 7 05/29/19 10:45 AM EDT documented as of this encounter Care Teams Loan Processor Relationship Specialty Start Date End Date Gordon Mills MD [address] [place] [address] PCP - General Internal Medicine 07/12/19 09/21/22 Bea Lacey MD [address] [place] [address] PCP - General Family Medicine 09/22/22 12/23/24 Cat Dumont CNP [address] [place] [address] PCP - General Family Medicine 12/24/24 Mariely Dennison PharmD [address] [place] [address] Pharmacist Internal Medicine 07/03/24 01/08/25 [facility] 09/01/24 12/02/24 [facility] 11/09/24 documented as of this encounter
--- OUTSIDE RECORDS SUMMARY | 2025-01-16 14:32 | XMS_ITS | Encounter Summary ---
Author Organization [employer] Address [address] [place] [address] 7t [place] [address] Care Team Providers Care Dish Washer Name Role Phone Bea Lacey MD Primary Care Provider Mariely Dennison PharmD Unavailable [phone] Cat Dumont CNP Primary Care Provider [phone] Reason for Visit * Reason Comments Med Refill Encounter Details Date Type Department Care Team ([facility] Contact Info) Description 09/30/2022 Refill [facility] MED & PEDS [address] [place] [address] Gordon Mills MD [address] [place] [address] Chronic rhinitis Social History Tobacco Use Types [...] Upcoming Encounters Date Type Department Care Team ([facility] Contact Info) Description 02/19/2025 2:00 PM EST Office Visit [facility] MED & PEDS [address] [place] [address] Cat Dumont CNP [address] [place] [address] 06/18/2025 1:30 PM EDT Office Visit [facility] CHC ADULT DENTAL [address] [place] [address] Daniele Barlow documented as of this encounter Visit Diagnoses Diagnosis Chronic rhinitis documented in this encounter Additional Health Concerns Assessment Noted Time PHQ-9 Depression Total Score: 7 05/29/19 23 10:45 AM EDT documented as of this encounter Care Teams Dish Washer Relationship Specialty Start Date End Date Bea Lacye MD [address] [place] [address] PCP - General Family Medicine 09/22/22 12/23/24 Cat Dumont CNP [address] [place] [address] PCP - General Family Medicine 12/24/24 Mariely Dennison PharmD [address] [place] [address] Pharmacist Internal Medicine 07/03/24 01/08/25 [facility] 09/01/24 12/02/24 [facility] 11/09/24 documented as of this encounter
--- OUTSIDE RECORDS SUMMARY | 2025-01-16 14:32 | XMS_ITS | Encounter Summary ---
Author Organization [employer] Address [address] [facility] 7t [place] [address] Care Team Providers Care Statue Maker Name Role Phone Gordon Mills MD Primary Care Prov ider Bea Lacey MD Primary Care Provider [phone] Mariely Dennison PharmD Unavailable [phone] Cat Dumont CNP Primary Care Provider [phone] Reason for Referral * Social Care Application (Routine) - Closed Specialty Diagnoses / Procedures Referred By Contac t Referred To Contact Diabetic / Diabetes Services Diagnoses Type 2 diabetes mellitus with hyperglycemia, without long-term current use of insulin (HCC) Peetr Barlow MD [address] [place] [address] Phone: tel: fax: Referral ID Status Reason Start Date Expiration Date V isits Requested Visits Authorized [id number] Closed Specialty Services Required 09/02/2022 03/01/2023 1 1 Encounter Details Date Type Department Care Team (Late st Contact Info) Description 09/02/2022 Orders Only [facility] CHC MED & PEDS [address] [place], [place] [phone] Peter Barlow MD [address] [place], [place] [phone] Type 2 diabetes mellitus with hyperglycemia, without [...] [facility] [address] [place] [address] Cat Dumont, TYREE [address] [place] [address] 06/18/2025 1:30 PM EDT Office Visit [facility] ADULT DENTAL [address] [place] [address] Daniele Barlow Scheduled Referrals Name Type Priority Associated Diagnoses Order Schedule Referral to Diabetes Prevention Program Outpatient Referral Routine Type 2 diabetes mellitus with hyperglycemia, without long-term current use of insulin ([facility]/HCC) Ordered: 09/02/2022 documented as of this encounter Visit Diagnoses Diagnosis Type 2 diabetes mellitus with hyperglycemia, without long-term current use of insulin ([facility])- Primary documented in this encounter Additional Health Concerns Assessment Noted Time PHQ-9 Depression Total Score: 7 05/29/19 23 10:45 AM EDT documented as of this encounter Care Teams Statue Maker Relationship Specialty Start Date End Date Gordon Mills MD [address] [place] [address] PCP - General Internal Medicine 07/12/19 09/21/22 Bea Lacey MD [address] [place] [address] PCP - General Family Medicine 09/22/22 12/23/24 Cat Dumont CNP [address] [place] [address] PCP - General Family Medicine 12/24/24 Mariely Dennison PharmD [address] [place] [address] Pharmacist Internal Medicine 07/03/24 01/08/25 [facility] 09/01/24 12/02/24 [facility] 11/09/24 documented as of this encounter
== END 2025-01-16 11:54 | disposition home or self-care (01) ==
LOC: HO.PMC 11:30
PROVIDERS: Visit Provider Anesthesiology
DX: M53.3 Sacrococcygeal disorders, not elsewhere classified (principal); G89.29 Other chronic pain; M46.1 Sacroiliitis, not elsewhere classified; M54.51 Vertebrogenic low back pain; G89.4 Chronic pain syndrome; E11.65 Type 2 diabetes mellitus with hyperglycemia
CPT/HCPCS: 62368

== ENCOUNTER → 2025-01-16 11:30 | Outpatient (BNVA) | payer MEDICARE, MEDICAID, SELFPAY | PROVIDERS: Visit Provider Anesthesiology | DX: M54.51 Vertebrogenic low back pain (principal); M46.1 Sacroiliitis, not elsewhere classified; M53.3 Sacrococcygeal disorders, not elsewhere classified; G89.4 Chronic pain syndrome; E11.65 Type 2 diabetes mellitus with hyperglycemia; Z79.84 Long term (current) use of oral hypoglycemic drugs; Z79.82 Long term (current) use of aspirin; Z87.891 Personal history of nicotine dependence | CPT/HCPCS: 62368 ==

== ENCOUNTER → 2025-02-13 14:06 | Outpatient (AMB) | payer MEDICARE, MEDICAID, SELFPAY ==
[2025-02-13 14:07] VITALS: BP 113/65; PULSE 73; RESP 16; O2SAT 97; BMI 28.6
--- NOTE | 2025-02-13 14:07 | MHC.OFFVIS ---
Vital Signs 02/13/25 14:07 Height 5 ft 8 in Weight 188 lb BMI 28.6 BP 113/65 Blood Pressure Location Rt brachial Position Sitting Respiration 16 Pulse 73 Pulse Source Pulse Oximeter Pulse Oximetry (%) 97 Oxygen Delivery Method Room Air Intake Visit Reasons: ITDD REFILL Credit Operations Processor Required: No Accompanied by: Self / Same As Patient Allergies grass pollen Allergy (Mild, Verified 02/13/25 14:44) unknown tree and shrub pollen Allergy (Mild, Verified 02/13/25 14:44) itchy eyes, sneeze, runny nose No Known Drug Allergies Allergy (Unknown, Verified 02/13/25 14:44) none plastic tape Allergy (Unknown, Uncoded 07/04/24 13:03) irritation HPI Comments Details: Malik is in my office today for intrathecal pain pump refill. He reports pain improvement with last pump dose escalation, he requests today a further small dose escalation. I agreed with him and escalated the dose from 2.4 mcg of fentanyl a day to 3.4 micro g of fentanyl a day.I explained the patient that the medication in his pump is getting old and we need to replace the medication with the new batch in one month. The concentration will be the same 25 mcg per ml. Prior: History of bilateral paintech sacroiliac joint stabilization with fusion. He had significant improvement however he fell in his kitchen and started to experience lot of pain again. He was sent for the x-ray of the pelvis and it appears to be that although both implantation elements are in sacroiliac joints 1 of them got shifted vertical it to the upper portion of the joint and now has a lesser chance to provide enough of the space to form the sacroiliac bridge. Most likely that is why patient started to experience pain again. We decided to treat his pain with addition of the opioids into intrathecal pain pump. For his next pump refill I will fill it up with hydromorphone 150 micro g per mL and bupivacaine 8 milligrams/mL. I will continue to increase concentration of hydromorphone until patient's satisfaction. To temporize his pain level now I will prescribe him short course of Percocet see as below. He is interested in sacroiliac joint fusion now performed by the surgeon with surgical screws. We will find out where this procedure can not be performed and we will refer patient there. He also would like to call [employer] veterans employment representative and ask him to increase stimulation levels on the machine Prior: This patient is very unfortunate gentleman who is suffering from multiple pain generators. He received multiple forms of treatment to concur the existing pain generators pain. He tried multiple sessions of physical therapy in the past and he continues from time to time to return to his home exercise program to help his pain. He tried multiple medications including NSAIDs muscle relaxants and opioids. NSAIDs give him severe side effects. He is very much concerned about addictive properties of opioids. He reports muscle relaxants help his pain minimally if any. He in the past was injected with multiple procedures including medial branch blocks, radiofrequency ablations, facet joint injections, and eventually he was not very satisfied with results of this injections. He was implanted with [employer] spinal cord stimulator which he reports helped his pain radiating into the bilateral lower extremities. He also reported axial back pain aggravated with sitting and flexing forward and on the MRI he was discovered with Modic type changes in the lumbar spine. Intraseptal procedure was performed with good results for pain aggravated with prolonged sitting however pain which is lower than the lumbar spine in the projection of his pelvis actually getting worse background of alleviated lumbar spine pain. To treat this condition he was implanted with intrathecal pain pump however the intrathecal pain pump was not very instrumental to alleviate his pain. He still receives intrathecal pain pump bupivacaine only however reports significant and advanced pain in the projection of the bilateral sacroiliac joints. He had MRI of the lumbar spine which did not demonstrate any red flags and he did have abdominal and pelvic CT scan which did not demonstrate in pelvis any abnormalities which could be suspected as the pain generators related to sacroiliac joint, sacral bones or iliac bones. 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, lumbar region PVD (peripheral vascular disease) Mood disorder On beta ruddy at home Benign essential tremor CVA (cerebral vascular accident) IDDM (insulin dependent diabetes mellitus) Sleep apnea Chronic renal insufficiency Myocardial infarction CHF (congestive heart failure) CAD (coronary artery disease) AAA (abdominal aortic aneurysm) Arrhythmia On anticoagulant therapy Elevated cholesterol HTN (hypertension) History of ischemic cardiomyopathy 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 Surgical History (Updated 05/21/24 @ 10:18 by Niki Ortiz, RN) History of surgery History of surgery (~2023) Hx of brain surgery (05/10/24) Hx of shoulder surgery History of laparoscopic cholecystectomy (12/08/22) History of surgery History of surgery History of PTCA Hx of parathyroidectomy Hx of CABG History of hernia repair Hx of gastric bypass Hx of endoscopy History of colonoscopy Family History Father Hx of congenital heart disease Mother Hx of heat stroke Social History (Updated 05/21/24 @ 09:54 by Niki Ortiz, RN) Household Members: None Housing: Apartment Are you a primary career services manager to a significant other at home: No Do you presently have visiting nurse or other home services: Yes ([employer] 2 hours per week) Alcohol intake: current Alcohol intake frequency: does not drink Comment: counts correct Patient Tobacco Use Status: Former Tobacco user Tobacco use type: Cigarette Second Hand Smoke Exposure: No Review of Systems Const All systems reviewed & are unremarkable except as noted in HPI and below ENT Reports Normal hearing present Neuro Reports Normal hearing present and Denies Abnormal speech present Physical Exam Vital Signs: Last Vital Signs Pulse 73 02/13/25 14:07 Resp 16 02/13/25 14:07 BP 113/65 02/13/25 14:07 Pulse Ox 97 02/13/25 14:07 Oxygen Delivery Method Room Air 02/13/25 14:07 BMI result Body Mass Index 28.6 Const General: cooperative, no acute distress, alert and well groomed Orientation/consciousness: patient oriented x3 HEENT Head: Yes normocephalic and Yes atraumatic Ears: hearing grossly normal bilaterally Eyes General: appearance normal, both eyes and all related structures Eyelids: Yes eyelids normal Pupils: Equal, round and reactive pupils present EOM: EOMs intact bilaterally Neck Neck: Yes normal visual inspection and Yes no JVD Resp Effort & Inspection: normal respiratory effort, able to speak in complete sentences and no audible wheezes Cardio Jugular venous distension: no JVD Back/Spine/Pelvis Other: Tenderness of palpation paraspinal spinal region in the entire spine cervical thoracic and lumbar. SLR is negative with foot dorsiflexion. Flexing forward aggravates the pain. Flexing backwards does not change the pain. James test, Gaenslen test, pelvic compression test, pelvic destruction test, positive on the left as well as on the right. Neuro General: patient oriented x3, moves all extremities and Normal light touch and pain sensation Cranial nerves: Yes Equal, round and reactive pupils present and Yes Normal hearing present Cognition (Neuro): normal cognition Speech: No Abnormal speech present Assessment & Plan Assessment & Plan (1) Chronic left sacroiliac joint pain: Code(s): M53.3 - Sacrococcygeal disorders, not elsewhere classified; G89.29 - Other chronic pain Category: Medical (2) Sacroiliitis: Code(s): M46.1 - Sacroiliitis, not elsewhere classified Category: Medical (3) Vertebrogenic low back pain: Code(s): M54.51 - Vertebrogenic low back pain Category: Medical (4) Chronic pain syndrome: Code(s): G89.4 - Chronic pain syndrome Category: Medical (5) Poorly controlled type 2 diabetes mellitus: Code(s): E11.65 - Type 2 diabetes mellitus with hyperglycemia Category: Medical Plan: Patient feels improvement on the gentle escalation of the doses they of the pain pump, he reports rare exacerbation of the pain. Today at the visit he reports that his pain is 0. (6) Chronic pain syndrome: Code(s): G89.4 - Chronic pain syndrome Category: Medical Plan Intrathecal pump refill . HE PATIENT CAME TODAY in the office FOR THE CHANGE OF THE MEDICATION IN her PAIN PUMP. The name and date of were verified and informed consent was obtained for the procedure. ?The pump was interrogated and the residual amount of fluid was found to be 33.4 mL. He WAS POSITIONED left lateral decubitus on the bed AND THE AREA OF THE INTRATHECAL PUMP on the right flank WAS PREPPED WITH CHLORAPREP. The fenestrated drape was sterilely applied over the area of the pump. Sterile gloves were worn and of the aspiration system was assembled containing 2 in 22 gauge noncoring needle, the needle was connected to extension tubing which was connected to the 20 cc sterile syringe. The pain pump was palpated under the skin in the patient's right upper flank under the right rib. The needle was inserted through the skin and the central plug of the pain pump and fluid was aspirated. The clear fluid was going into the syringe the total amount of the fluid was 33.0 ml. After that a new batch? of medication was obtained which was containing fentanyl 25 micro g per mL. The admixture was made in two 20 [address] [facility] compounding pharmacy. The syringe was connected to the bacterial filter, and then connected to the extension tubing. Continuous rate of the intrathecal pain pump changed today from 2.4 micro g a day to 3.4 micro g a day which constitute 41% of the dose of the pain medication increase. Coding Level of Care Code Est Pt Level 3 (89754) Procedure Only Diagnoses Chronic left sacroiliac joint pain M53.3; G89.29 Sacroiliitis M46.1 Vertebrogenic low back pain M54.51 Chronic pain syndrome G89.4 Poorly controlled type 2 diabetes mellitus E11.65
--- OUTSIDE RECORDS SUMMARY | 2025-02-13 14:08 | XMS_ITS | Encounter Summary ---
Author Organization [employer] Address [address] [facility] 7t [place] [address] Care Team Providers Care Dental Officer Name Role Phone Bea Lacey MD Primary Care Provider [phone] Mariely Dennison PharmD Unavailable [phone] Cat Dumont CNP Primary Care Provider [phone] Encounter Details Date Type Department Care Team (Late st Contact Info) Description 07/18/2024 Orders Only [facility] [address] [place], [place] [phone] Provider, MD Tia Social History Tobacco Use [...] [facility] [address] [place] [address] Cat Dumont CNP [address] [place] [address] 06/18/2025 1:30 PM EDT Office Visit [facility] [address] [place] [address] Daniele Barlow documented as of this encounter [...] documented as of this encounter Care Teams Dental Officer Relationship Specialty Start Date End Date Bea Lacey MD [address] [place] [address] PCP - General Family Medicine 09/22/22 12/23/24 Cat Dumont CNP [address] [place] [address] PCP - General Family Medicine 12/24/24 Mariely Dennison, [place] [address] [place] [address] Pharmacist Internal Medicine 07/03/24 01/08/25 [facility] 09/01/24 12/02/24 [facility] 11/09/24 documented as of this encounter
--- OUTSIDE RECORDS SUMMARY | 2025-02-13 14:08 | XMS_ITS | Encounter Summary ---
Author Organization [employer] Address [address] [facility] 7t [place] [address] Care Team Providers Care Body Shop Estimator Name Role Phone Bea Lacey MD Primary Care Provider [phone] Mariely Dennison PharmD Unavailable [phone] Cat Dumont CNP Primary Care Provider [phone] Reason for Visit * Reason Onset Date Comments returning call RCT appt 06/26/2024 Encounter Details Date Type Department Care Team ([facility] st Contact Info) Description 06/26/2024 Telephone [facility] [address] [place], [place] [phone] KandruSebastián, DDS [address] [place], [place] [phone] returning call RCT appt Social History Tobacco [...] [facility] [address] [place] [address] Cat Dumont CNP [address] [place] [address] 06/18/2025 1:30 PM EDT Office Visit [facility] ADULT D[facility] [address] [place] [address] Daniele Barlow documented as of this encounter Visit Diagnoses Not on filedocumented in this encounter Additional Health Concerns Assessment Noted Time PHQ-9 Depression Total Score: 20 024 10:22 AM EDT documented as of this encounter Care Teams Body Shop Estimator Relationship Specialty Start Date End Date Bea Lacey MD [address] [place] [address] PCP - General Family Medicine 09/22/22 12/23/24 Cat Dumont CNP [address] [place] [address] PCP - General Family Medicine 12/24/24 Mariely Dennison PharmD [address] [place] [address] Pharmacist Internal Medicine 07/03/24 01/08/25 [facility] 09/01/24 12/02/24 [facility] 11/09/24 documented as of this encounter
--- OUTSIDE RECORDS SUMMARY | 2025-02-13 14:08 | XMS_ITS | Encounter Summary ---
Author Organization [facility] Address [address] [facility] [address] [place] [address] Phone Care Team Providers Care Handle Machine Operator Name Role Phone Halle Fontenot MD Primary Care Provider Encounter Details Date Type Department Care Team (Late st Contact Info) Description 01/27/2024 Procedure Pass [facility] [address] [place] [id number] Social History Tobacco Use Types Packs/Day Years [...] on filedocumented in this encounter Care Teams Handle Machine Operator Relationship Specialty Start Date End Date Halle Fontenot MD [address] [place] [address] PCP - General Family Medicine 03/09/23 documented as of this encounter Additional Source Comments The information contained in this document represents components of the legal health record. It is not the complete legal health record.[facility]
--- OUTSIDE RECORDS SUMMARY | 2025-02-13 14:08 | XMS_ITS | Clinical Summary ---
Author Organization [facility] Address [address] [place] [address] Phone Care Team Providers Care Flame Hardening Machine Setter Name Role Phone Halle Fontenot MD Primary [...] topic Medical Devices Not on file Insurance [facility] MEDICARE PART A & B [facility] & B [facility] A & [facility] MED[facility] PART A & B [place] MED[place] PART A & B Care Teams Flame Hardening Machine Setter Relationship Specialty Start Date End Date Halle Fontenot MD [address] [place] [address] PCP - General Family Medicine 03/09/23 Additional Source Comments The information contained in this document represents components of the legal health record. It is not the complete legal health record.[facility]
--- OUTSIDE RECORDS SUMMARY | 2025-02-13 14:09 | XMS_ITS | Encounter Summary ---
Author Organization [employer] Address [address] [facility] 7[address] [place] [address] Care Team Providers Care Shell Core And Molding Supervisor Name Role Phone Bea Lacey MD Primary Care Provider [phone] Mariely Dennison PharmD Unavailable [phone] Cat Dumont CNP Primary Care Provider [phone] Reason for Visit * Reason Onset Date Comments Medication Question 06/20/2023 Encounter Details Date Type Department Care Team ([facility] st Contact Info) Description 06/20/2023 Telephone [facility] [address] [place], [place] [phone] Bea Lacey MD [address] [place], [place] [phone] Medication Question Social History Tobacco Use Types [...] Description 02/19/2025 2:00 PM EST Office Visit [facility] [address] [place] [address] Cat Dumont CNP [address] [place] [address] 06/18/2025 1:30 PM EDT Office Visit [facility] ADULT DENTAL [address] [place] [address] Daniele Barlow documented as of this encounter Visit Diagnoses Not on filedocumented in this encounter Additional Health Concerns Assessment Noted Time PHQ-9 Depression Total Score: 20 024 10:22 AM EDT documented as of this encounter Care Teams Shell Core And Molding Supervisor Relationship Specialty Start Date End Date Bea Lacey MD [address] [place] [address] PCP - General Family Medicine 09/22/22 12/23/24 Cta Dumotn CNP 505 [place] [address] PCP - General Family Medicine 12/24/24 Mariely Dennison PharmD [address] [place] [address] Pharmacist Internal Medicine 07/03/24 01/08/25 [facility] 09/01/24 12/02/24 [facility] 11/09/24 documented as of this encounter
--- OUTSIDE RECORDS SUMMARY | 2025-02-13 14:09 | XMS_ITS | Encounter Summary ---
Author Organization [employer] Address [address] [facility] 7t [place] [address] Care Team Providers Care Forestry Hunter Name Role Phone Bea Lacey MD Primary Care Provider [phone] Mariely Dennison PharmD Unavailable [phone] Cat Dumont CNP Primary Care Provider [phone] Reason for Visit * Reason Onset Date Comments Med reconciliation 10/08/2024 Encounter Details Date Type Department Care Team ([facility] Contact Info) Description 10/08/2024 Telephone [facility] [address] [place], [place] [phone] Bea Lacey MD [address] [place] [address] Med reconciliation Social History Tobacco Use Types [...] reconciliation andto discuss pain medication. Contact Marcy [phone] documented in this encounter Plan of Treatment Upcoming Encounters Date Type Department Care Team ([facility] st Contact Info) Description 02/19/2025 2:00 PM EST Office Visit [facility] [address] [place] [address] Cat Dumont, TYREE [address] [place] [address] 06/18/2025 1:30 PM EDT Office Visit [facility] ADULT DENTAL [address] [place] [address] Daniele Barlow documented as of this encounter Visit Diagnoses Not on filedocumented in this encounter Additional Health Concerns Assessment Noted Time PHQ-9 Depression Total Score: 9 09/19/19 25 9:36 AM EDT documented as of this encounter Care Teams Forestry Hunter Relationship Specialty Start Date End Date Bea Lacey MD [address] [place] [address] PCP - General Family Medicine 09/22/22 12/23/24 Cat Dumont CNP [address] [place] [address] PCP - General Family Medicine 12/24/24 Mariely Dennison PharmD [address] [place] [address] Pharmacist Internal Medicine 07/03/24 01/08/25 [facility] 09/01/24 12/02/24 [facility] 11/09/24 documented as of this encounter
--- OUTSIDE RECORDS SUMMARY | 2025-02-13 14:09 | XMS_ITS | Encounter Summary ---
Author Organization [employer] Address [address] [facility] 7t [place] [address] Care Team Providers Care Parking Meter Installer Name Role Phone Gordon Mills MD Primary Care Prov ider Bea Lacey MD Primary Care Provider [phone] Mariely Dennison PharmD Unavailable [phone] Cat Dumont CNP Primary Care Provider [phone] Encounter Details Date Type Department Care Team (Latest Contact Info) Description 08/14/2020 Abstract [facility] CONVERSIONS Dental, Provider, DDS Social History Tobacco [facility] [address] [place] [address] Cat Dumont CNP [address] [place], [place] [phone] 06/18/2025 1:30 PM EDT Office Visit [facility] ADULT DENTAL [address] [place], [place] [phone] Daniele Barlow documented as of this encounter Visit Diagnoses Not on filedocumented in this encounter Care Teams Parking Meter Installer Relationship Specialty Start Date End Date Gordon Mills MD [address] [place] [address] PCP - General Internal Medicine 07/12/19 09/21/22 Bea Lacey MD [address] [place] [address] PCP - General Family Medicine 09/22/22 12/23/24 Cat Dumont CNP [address] [place] [address] PCP - General Family Medicine 12/24/24 Mariely Dennison PharmD [address] [place] [address] Pharmacist Internal Medicine 07/03/24 01/08/25 [facility] 09/01/24 12/02/24 [facility] 11/09/24 documented as of this encounter
--- OUTSIDE RECORDS SUMMARY | 2025-02-13 14:09 | XMS_ITS | Encounter Summary ---
Author Organization [employer] Address [address] [facility] 7t [place] [address] Care Team Providers Care Sales Assistants And Salespersons Name Role Phone Bea Lacey MD Primary Care Provider [phone] Mariely Dennison PharmD Unavailable [phone] Cat Dumont CNP Primary Care Provider [phone] Reason for Visit * Reason Onset Date Comments Results 11/16/2023 Encounter Details Date Type Department Care Team ([facility] st Contact Info) Description 11/16/2023 Telephone [facility] [address] [place], [place] [phone] Bea Lacey MD [address] [place], [place] [phone] Results Social History Tobacco Use Types Packs/Day [...] PM EDT Tc from pt returning call. Pharmacist Intern advise previous message. Pt verbalizes understanding. * [...] Date when done: 11/10/23 Facility: [facility] Labs documented in this encounter Plan of Treatment Upcoming Encounters Date Type Department Care Team (Late st Contact Info) Description 02/19/2025 2:00 PM EST Office Visit [facility] [address] [place] [address] Cat Dumont CNP [address] [place] [address] 06/18/2025 1:30 PM EDT Office Visit [facility] ADULT DENTAL [address] [place] [address] Daniele Barlow documented as of this encounter Visit Diagnoses Not on filedocumented in this encounter Additional Health Concerns Assessment Noted Time PHQ-9 Depression Total Score: 20 024 10:22 AM EDT documented as of this encounter Care Teams Sales Assistants And Salespersons Relationship Specialty Start Date End Date Bea Lacey MD [address] [place] [address] PCP - General Family Medicine 09/22/22 12/23/24 Cat Dumont CNP [address] [place] [address] PCP - General Family Medicine 12/24/24 Mariely Dennison PharmD [address] [place] [address] Pharmacist Internal Medicine 07/03/24 01/08/25 [facility] 09/01/24 12/02/24 [facility] 11/09/24 documented as of this encounter
--- OUTSIDE RECORDS SUMMARY | 2025-02-13 14:09 | XMS_ITS | Encounter Summary ---
Author Organization [employer] Address 75 [facility] 7t [place] [address] Care Team Providers Care Portrait Consultant Name Role Phone Bea Lacey MD Primary Care Provider [phone] Mariely Dennison PharmD Unavailable [phone] Cat Dumont CNP Primary Care Provider [phone] Reason for Visit * Reason Onset Date Comments Glucose Monetor 10/08/2022 Encounter Details Date Type Department Care Team ([facility] st Contact Info) Description 10/08/2022 Telephone [facility] [address] [place] [address] Bea Lacey MD 505 [place] [address] Glucose Monetor Social History Tobacco Use Types [...] would like it to be sent to [facility], pt provided number . Patient also [...] would like it to be sent to [facility], pt provided number Please contact pt at [phone] documented in this encounter Plan of Treatment Upcoming Encounters Date Type Department Care Team (Late st Contact Info) Description 02/19/2025 2:00 PM EST Office Visit [facility] MED & PEDS [address] [place] [address] Cat Dumont CNP [address] [place] [address] 06/18/2025 1:30 PM EDT Office Visit [facility] ADULT DENTAL [address] [place] [address] Daniele Barlow documented as of this encounter Visit Diagnoses Not on filedocumented in this encounter Additional Health Concerns Assessment Noted Time PHQ-9 Depression Total Score: 7 05/29/19 23 10:45 AM EDT documented as of this encounter Care Teams Portrait Consultant Relationship Specialty Start Date End Date Bea Lacey MD [address] [place] [address] PCP - General Family Medicine 09/22/22 12/23/24 Cat Dumont CNP [address] [place] [address] PCP - General Family Medicine 12/24/24 Mariely Dennison PharmD [address] [place] [address] Pharmacist Internal Medicine 07/03/24 01/08/25 [facility] 09/01/24 12/02/24 [facility] 11/09/24 documented as of this encounter
--- OUTSIDE RECORDS SUMMARY | 2025-02-13 14:09 | XMS_ITS | Encounter Summary ---
Author Organization [employer] Address 75 [facility] 7t [place] [address] Care Team Providers Care Public Health Technologist Name Role Phone Bea Lacey MD Primary Care Provider [phone] Mariely Dennison PharmD Unavailable [phone] Cat Dumont CNP Primary Care Provider [phone] Encounter Details Date Type Department Care Team (Late st Contact Info) Description 07/14/2023 Orders Only [facility] MED & PEDS [address] [place], [place] [phone] ProviderTia MD Social History Tobacco Use Types [...] [facility] MED & PEDS [address] [place], [place] [phone] Cat Dumont CNP [address] [place] [address] 06/18/2025 1:30 PM EDT Office Visit [facility] ADULT DENTAL [address] [place], [place] [phone] Daniele Barlow documented as of this encounter [...] documented as of this encounter Care Teams Public Health Technologist Relationship Specialty Start Date End Date Bea Lacey MD [address] [place] [address] PCP - General Family Medicine 09/22/22 12/23/24 Cat Dumont CNP [address] [place], [place] [phone] PCP - General Family Medicine 12/24/24 Mariely Dennison, [place] [address] [place] [address] Pharmacist Internal Medicine 07/03/24 01/08/25 [facility] 09/01/24 12/02/24 [facility] 11/09/24 documented as of this encounter
--- OUTSIDE RECORDS SUMMARY | 2025-02-13 14:09 | XMS_ITS | Encounter Summary ---
Author Organization [employer] Address 75 [facility] 7t [place] [address] Care Team Providers Care Mold Loft Worker Name Role Phone Bea Lacey MD Primary Care Provider [phone] Mariely Dennison PharmD Unavailable [phone] Cat Dumont CNP Primary Care Provider [phone] Reason for Visit * Reason Onset Date Comments Nurse Triage 11/08/2023 Encounter Details Date Type Department Care Team ([facility] st Contact Info) Description 11/08/2023 Telephone [facility] MED & PEDS [address] [place], [place] [phone] Bea Lacey MD 505 [place] [address] Nurse Triage Social History Tobacco Use Types [...] accepted this outcome. Please contact pt at [phone] documented in this encounter Plan of Treatment Upcoming Encounters Date Type Department Care Team ([facility] st Contact Info) Description 02/19/2025 2:00 PM EST Office Visit [facility] MED & PEDS [address] [place] [address] Cat Dumont CNP 505 [place] [address] 06/18/2025 1:30 PM EDT Office Visit [facility] ADULT DENTAL 505 [place] [address] Daniele Barlow documented as of this encounter Visit Diagnoses Not on filedocumented in this encounter Additional Health Concerns Assessment Noted Time PHQ-9 Depression Total Score: 20 024 10:22 AM EDT documented as of this encounter Care Teams Mold Loft Worker Relationship Specialty Start Date End Date Bea Lacey MD [address] [place] [address] PCP - General Family Medicine 09/22/22 12/23/24 Cat Dumont CNP [address] [place] [address] PCP - General Family Medicine 12/24/24 Mariely Dennison PharmD [address] [place] [address] Pharmacist Internal Medicine 07/03/24 01/08/25 [facility] 09/01/24 12/02/24 [facility] 11/09/24 documented as of this encounter
--- OUTSIDE RECORDS SUMMARY | 2025-02-13 14:09 | XMS_ITS | Encounter Summary ---
Author Organization [employer] Address 75 [facility] 7t [place] [address] Care Team Providers Care Telephone Mechanic Name Role Phone Bea Lacey MD Primary Care Provider [phone] Mariely Dennison PharmD Unavailable [phone] Cat Dumont CNP Primary Care Provider [phone] Reason for Visit * Reason Onset Date Comments Medication Question 06/10/2023 Encounter Details Date Type Department Care Team ([facility] Contact Info) Description 06/10/2023 Telephone [facility] MED & PEDS [address] [place], [place] [phone] Bea Lacey MD 505 [place], [place] [phone] Medication Question Social History Tobacco Use Types [...] [facility] MED [facility] P[facility] [address] [place] [address] Cat Dumont CNP [address] [place] [address] 06/18/2025 1:30 PM EDT Office Visit [facility] ADULT DENTAL [address] [place] [address] Daniele Barlow documented as of this encounter Visit Diagnoses Not on filedocumented in this encounter Additional Health Concerns Assessment Noted Time PHQ-9 Depression Total Score: 20 024 10:22 AM EDT documented as of this encounter Care Teams Telephone Mechanic Relationship Specialty Start Date End Date Bea Lcaey MD [address] [place] [address] PCP - General Family Medicine 09/22/22 12/23/24 Cat Dumont CNP [address] [place] [address] PCP - General Family Medicine 12/24/24 Mariely Dennison PharmD [address] [place] [address] Pharmacist Internal Medicine 07/03/24 01/08/25 [facility] 09/01/24 12/02/24 [facility] 11/09/24 documented as of this encounter
--- OUTSIDE RECORDS SUMMARY | 2025-02-13 14:09 | XMS_ITS | Clinical Summary ---
Author Organization [facility] Address [address] [place] [address] Care Team Providers Care General Road Production Manager Name Role Phone Bea Lacey Primary Care Provider [phone] Allergies No known active allergies Medications buPROPion [...] I'd recommend he obtain clearance from his email designer given his history of multiple coronary events. I would also want to seek further clarification from his neurosurgeon as to what other clearance is being sought from the neurologist's standpoint. I will be reaching out to Dr. Pyaan's office. 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
--- OUTSIDE RECORDS SUMMARY | 2025-02-13 14:09 | XMS_ITS | Encounter Summary ---
Author Organization [employer] Address [address] [facility] 7t [place] [address] Care Team Providers Care Jigger Operator Name Role Phone Bea Lacey MD Primary Care Provider [phone] Mariely Dennison PharmD Unavailable [phone] Cat Dumont CNP Primary Care Provider [phone] Reason for Visit * Reason Comments Med Refill Encounter Details Date Type Department Care Team (Late Contact Info) Description 10/11/2022 Refill [facility] MED & PEDS [address] [place] [address] Bea Lacey MD [address] [place] [address] Chronic rhinitis Social History Tobacco Use Types [...] [facility] [address] [place] [address] Cat Dumont CNP [address] [place] [address] 06/18/2025 1:30 PM EDT Office Visit [facility] ADULT DENTAL [address] [place] [address] Daniele Barlow documented as of this encounter Visit Diagnoses Diagnosis Chronic rhinitis documented in this encounter Additional Health Concerns Assessment Noted Time PHQ-9 Depression Total Score: 7 05/29/19 10:45 AM EDT documented as of this encounter Care Teams Jigger Operator Relationship Specialty Start Date End Date Bea Lacey MD [address] [place] [address] PCP - General Family Medicine 09/22/22 12/23/24 Cat Dumont CNP [address] [place] [address] PCP - General Family Medicine 12/24/24 Mariely Dennison PharmD [address] [place] [address] Pharmacist Internal Medicine 07/03/24 01/08/25 [facility] 09/01/24 12/02/24 [facility] 11/09/24 documented as of this encounter
--- OUTSIDE RECORDS SUMMARY | 2025-02-13 14:09 | XMS_ITS | Encounter Summary ---
Author Organization [email or web address] Address 75 [facility] 7t [place] [address] Care Team Providers Care Press Tender Star Signal Name Role Phone Bea Lacey MD Primary Care Provider [phone] Mariely Dennison PharmD Unavailable [phone] Cat Dumont CNP Primary Care Provider [phone] Reason for Visit * Reason Comments Med Refill Encounter Details Date Type Department Care Team ([facility] Contact Info) Description 03/16/2024 Refill [facility] CHC MED & PEDS [address] [place], [place] [phone] Bea Lacey MD [address] [place] [address] Social History Tobacco Use Types Packs/Day Years [...] 2:00 PM EST Office Visit [facility] MED & PEDS [address] [place] [address] Cat Dumont CNP [address] [place] [address] 06/18/2025 1:30 PM EDT Office Visit [facility] ADULT DENTAL [address] [place] [address] Daniele Barlow documented as of this encounter Visit Diagnoses Not on filedocumented in this encounter Additional Health Concerns Assessment Noted Time PHQ-9 Depression Total Score: 20 024 10:22 AM EDT documented as of this encounter Care Teams Press Tender Star Signal Relationship Specialty Start Date End Date Bea Lacey MD [address] [place] [address] PCP - General Family Medicine 09/22/22 12/23/24 Cat Dumont CNP [address] [place] [address] PCP - General Family Medicine 12/24/24 Mariely Dennison PharmD [address] [place] [address] Pharmacist Internal Medicine 07/03/24 01/08/25 [facility] 09/01/24 12/02/24 [facility] 11/09/24 documented as of this encounter
--- OUTSIDE RECORDS SUMMARY | 2025-02-13 14:09 | XMS_ITS | Encounter Summary ---
Author Organization [employer] Address 75 [facility] 7t [place] [address] Care Team Providers Care Dice Table Operator Name Role Phone Bea Lacey MD Primary Care Provider [phone] Mariely Dennison PharmD Unavailable [phone] Cat Dumont CNP Primary Care Provider [phone] Reason for Visit * Reason Onset Date Comments FYI 08/30/2024 Encounter Details Date Type Department Care Team ([facility] st Contact Info) Description 08/30/2024 Telephone [facility] [address] [place], [place] [phone] Bea Lacey MD [address] [place], [place] [phone] FYI Social History Tobacco Use Types Packs/Day [...] - 08/30/2024 12:38 PM EDT Tc from [place] with [facility] calling to inform pcp that pt has been referred to their services for at home PT and will be starting care on 08/31. documented in this encounter Plan of Treatment Upcoming Encounters Date Type Department Care Team (Late st Contact Info) Description 02/19/2025 2:00 PM EST Office Visit [facility] MED & PEDS [address] [place] [address] Cat Dumont, TYREE [address] [place] [address] 06/18/2025 1:30 PM EDT Office Visit [facility] ADULT DENTAL [address] [place] [address] Daniele Barlow documented as of this encounter Visit Diagnoses Not on filedocumented in this encounter Additional Health Concerns Assessment Noted Time PHQ-9 Depression Total Score: 20 04/12/2 024 10:22 AM EDT documented as of this encounter Care Teams Dice Table Operator Relationship Specialty Start Date End Date Bea Lacey MD [address] [place] [address] PCP - General Family Medicine 09/22/22 12/23/24 Cat Dumont CNP [address] [place] [address] PCP - General Family Medicine 12/24/24 Mariely Dennison PharmD [address] [place] [address] Pharmacist Internal Medicine 07/03/24 01/08/25 [facility] 09/01/24 12/02/24 [facility] 11/09/24 documented as of this encounter
--- OUTSIDE RECORDS SUMMARY | 2025-02-13 14:09 | XMS_ITS | Encounter Summary ---
Author Organization [employer] Address [address] [facility] 7t [place] [address] Care Team Providers Care Distribution Sales Representative Name Role Phone Bea Lacey MD Primary Care Provider [phone] Mariely Dennison PharmD Unavailable [phone] Cat Dumont CNP Primary Care Provider [phone] Reason for Visit * Reason Comments Med Refill Encounter Details Date Type Department Care Team ([facility] Contact Info) Description 07/20/2024 Refill [facility] CHC MED & PEDS [address] [place], [place] [phone] Gordon Mills MD [address] [place] [address] Type 2 diabetes mellitus with hyperglycemia (CMS/HCC) [...] Description 02/19/2025 2:00 PM EST Office Visit [facility] MED & PEDS [address] [place] [address] Cat Dumont CNP [address] [place] [address] 06/18/2025 1:30 PM EDT Office Visit [facility] ADULT DENTAL [address] [place] [address] Daniele Barlow documented as of this encounter Visit Diagnoses Diagnosis Type 2 diabetes mellitus with hyperglycemia (HCC) documented in this encounter Additional Health Concerns Assessment Noted Time PHQ-9 Depression Total Score: 20 024 10:22 AM EDT documented as of this encounter Care Teams Distribution Sales Representative Relationship Specialty Start Date End Date Bea Lacey MD [address] [place] [address] PCP - General Family Medicine 09/22/22 12/23/24 Cat Dumont CNP [address] [place] [address] PCP - General Family Medicine 12/24/24 Mariely Dennison, LadiD [address] [place] [address] Pharmacist Internal Medicine 07/03/24 01/08/25 [facility] 09/01/24 12/02/24 [facility] 11/09/24 documented as of this encounter
--- OUTSIDE RECORDS SUMMARY | 2025-02-13 14:09 | XMS_ITS | Encounter Summary ---
Author Organization [facility] Address [address] [place] [address] Care Team Providers Care Order Builder Loader Name Role Phone Bea Lacey MD Primary Care Provider [phone] Encounter Details Date Type Department Care Team (Late st Contact Info) Description 10/30/[address] [facility] [address] [place] [address] Lupe Cruz MD [address] [phone] Anemia, unspecified; Other disorders of electrolyte and [...] LAB CHEMISTRY METHOD 10/30/2024 12:50 PM EDT [facility] Potassium 3.9 3.5 - 5.5 mmol/L LAB CHEMISTRY METHOD 10/30/2024 12:50 PM [facility] Chloride 104 96 - 110 mmol/L LAB CHEMISTRY METHOD 10/30/2024 12:50 PM [facility] CO2 25 21 - 32 mmol/L LAB CHEMISTRY METHOD 10/30/2024 12:50 PM [facility] Anion Gap 8 3 - 11 LAB CHEMISTRY METHOD 10/30/2024 12:50 PM [facility] Glucose 155(H) 70 - 100 mg/dL LAB CHEMISTRY METHOD 10/30/2024 12:50 PM [facility] BUN 16 5 - 25 mg/dL LAB CHEMISTRY METHOD 10/30/2024 12:50 PM [facility] Creatinine 1.02 0.70 - 1.30 mg/dL LAB CHEMISTRY METHOD 10/30/2024 12:50 PM [facility] eGFR 78 >=60 mL/min/1. 73m2 LAB CHEMISTRY METHOD 10/30/2024 12:50 PM [facility] Comment:Calculation based on the Chronic Kidney Disease Epidemiology Collaboration (CKD-EPI) equation refit without adjustment for race. BUN/Creatinine Ratio 15.7 LAB CHEMISTRY METHOD 10/30/2024 12:50 PM [facility] Calcium 9.4 8.5 - 10.5 mg/dL LAB CHEMISTRY METHOD 10/30/2024 12:50 PM [facility] AST (SGOT) 22 10 - 42 unit/L LAB CHEMISTRY METHOD 10/30/2024 12:50 PM [facility] ALT (SGPT) 32 10 - 60 unit/L LAB CHEMISTRY METHOD 10/30/2024 12:50 PM [facility] Alkaline Phosphatase 167(H) 42 - 121 unit/L LAB CHEMISTRY METHOD 10/30/2024 12:50 PM [facility] Total Protein 7.3 6.0 [...] al Result [facility] [address] [place] [address], * (ABNORMAL) Complete blood count (10/30/2024 7:56 AM EDT) WBC 10.0 4.8 - 10.8 K/mcL LAB HEMETOLOGY METHOD 10/30/2024 11:29 AM [facility] RBC 5.80(H) 4.50 - 5.50 M/mcL LAB HEMETOLOGY METHOD 10/30/2024 11:29 AM [facility] Hemoglobin 14.9 13.5 - 17.5 g/dL LAB HEMETOLOGY METHOD 10/30/2024 11:29 AM [facility] Hematocrit 48.6 42.0 - 54.0 % LAB HEMETOLOGY METHOD 10/30/2024 11:29 AM [facility] MCV 84.5 79.0 - 98.0 FL LAB HEMETOLOGY METHOD 10/30/2024 11:29 AM [facility] MCH 25.9(L) 27.0 - [...] al Result [facility] [address] [place] [address], documented in this encounter Visit Diagnoses Diagnosis Anemia, unspecified Other disorders of electrolyte and fluid balance, not elsewhere classified documented in this encounter Care Teams Order Builder Loader Relationship Specialty Start Date End Date Bea Lacey MD [address] [place] [address] PCP - General 04/04/23 documented as of this encounter
--- OUTSIDE RECORDS SUMMARY | 2025-02-13 14:09 | XMS_ITS | Encounter Summary ---
Author Organization [employer] Address 75 [facility] 7t [place] [address] Care Team Providers Care Leadite Man Name Role Phone Bea Lacey MD Primary Care Provider Mariely Dennison PharmD Unavailable [phone] Cat Dumont CNP Primary Care Provider [phone] Reason for Visit * Reason Comments Med Refill Encounter Details Date Type Department Care Team ([facility] Contact Info) Description 11/27/2024 Refill [facility] CHC MED & PEDS [address] [place], [place] [phone] Bea Lacey MD [address] [place] [address] Gastroesophageal reflux disease without esophagitis; Essential tremor [...] [facility] [address] [place] [address] Cat Dumont CNP [address] [place] [address] 06/18/2025 1:30 PM EDT Office Visit [facility] ADULT DENTAL [address] [place] [address] Daniele Barlow documented as of this encounter Visit Diagnoses Diagnosis Gastroesophageal reflux disease without esophagitis Esophageal reflux Essential tremor documented in this encounter Additional Health Concerns Assessment Noted Time PHQ-9 Depression Total Score: 9 09/19/19 25 9:36 AM EDT documented as of this encounter Care Teams Leadite Man Relationship Specialty Start Date End Date Bea Lacey MD [address] [place] [address] PCP - General Family Medicine 09/22/22 12/23/24 Cat Dumont CNP [address] [place] [address] PCP - General Family Medicine 12/24/24 Mariely Dennison, [place]ella [address] [place] [address] Pharmacist Internal Medicine 07/03/24 01/08/25 [facility] 09/01/24 12/02/24 [facility] 11/09/24 documented as of this encounter
--- OUTSIDE RECORDS SUMMARY | 2025-02-13 14:09 | XMS_ITS | Encounter Summary ---
Author Organization [facility] Address [address] [place] [address] Care Team Providers Care Flarer Name Role Phone Bea Lacey MD Primary Care Provider [phone] Encounter Details Date Type Department Care Team (Late st Contact Info) Description 11/04/2024 Lab Requisition [facility] - Main Lab [address] [place] [address] Lupe Cruz MD [address] [id number] Anemia, unspecified; Other disorders of electrolyte and [...] LAB CHEMISTRY METHOD 11/05/2024 2:08 PM EDT [facility] Potassium 4.1 3.5 - 5.5 mmol/L LAB CHEMISTRY METHOD 11/05/2024 2:08 PM [facility] Chloride 106 96 - 110 mmol/L LAB CHEMISTRY METHOD 11/05/2024 2:08 PM [facility] CO2 29 21 - 32 mmol/L LAB CHEMISTRY METHOD 11/05/2024 2:08 PM [facility] Anion Gap 5 3 - 11 LAB CHEMISTRY METHOD 11/05/2024 2:08 PM [facility] Glucose 124(H) 70 - 100 mg/dL LAB CHEMISTRY METHOD 11/05/2024 2:08 PM [facility] BUN 12 5 - 25 mg/dL LAB CHEMISTRY METHOD 11/05/2024 2:08 PM [facility] Creatinine 0.83 0.70 - 1.30 mg/dL LAB CHEMISTRY METHOD 11/05/2024 2:08 PM [facility] eGFR 93 >=60 mL/min/1. 73m2 LAB CHEMISTRY METHOD 11/05/2024 2:08 PM [facility] Comment:Calculation based on the Chronic Kidney Disease Epidemiology Collaboration (CKD-EPI) equation refit without adjustment for race. BUN/Creatinine Ratio 14.5 LAB CHEMISTRY METHOD 11/05/2024 2:08 PM [facility] Calcium 8.5 8.5 - 10.5 mg/dL LAB CHEMISTRY METHOD 11/05/2024 2:08 PM [facility] AST (SGOT) 21 10 - 42 unit/L LAB CHEMISTRY METHOD 11/05/2024 2:08 PM [facility] ALT (SGPT) 24 10 - 60 unit/L LAB CHEMISTRY METHOD 11/05/2024 2:08 PM [facility] Alkaline Phosphatase 124(H) 42 - 121 unit/L LAB CHEMISTRY METHOD 11/05/2024 2:08 PM [facility] Total Protein 6.0 6.0 - 8.0 g/dL LAB CHEMISTRY METHOD 11/05/2024 2:08 PM EDT [facility] Albumin 3.1(L) 3.2 - 5.0 g/dL LAB CHEMISTRY METHOD 11/05/2024 2:08 PM EDT [facility] Total Bilirubin 0.4 0.0 - 1.4 mg/dL LAB CHEMISTRY METHOD 11/05/2024 2:08 PM EDT [facility] Blood Venous blood specimen / Unknown Venipuncture / Unknown 11/05/2024 6:38 AM EDT 11/05/2024 11:53 AM EDT us Lupe Cruz MD LAB BLOOD ORDERABLES Fin al Result [facility] [address] [place] [address], * (ABNORMAL) Complete blood count (11/05/2024 6:38 AM EDT) WBC 4.6(L) 4.8 - 10.8 K/mcL LAB [facility] RBC 4.80 4.50 - 5.50 M/mcL LAB HEMETOLOGY METHOD 11/05/2024 1:08 PM [facility] Hemoglobin 12.6(L) 13.5 - 17.5 g/dL LAB HEMETOLOGY METHOD 11/05/2024 1:08 PM EDT [facility] Hematocrit 41.3(L) 42.0 - 54.0 % LAB HEMETOLOGY METHOD 11/05/2024 1:08 PM EDT [facility] MCV 85.9 79.0 - 98.0 FL LAB HEMETOLOGY METHOD 11/05/2024 1:08 PM [facility] MCH 26.2(L) 27.0 - 32.0 pcg LAB HEMETOLOGY METHOD 11/05/2024 1:08 PM EDT [facility] MCHC 30.5(L) 32.0 - 37.0 g/dL LAB HEMETOLOGY METHOD 11/05/2024 1:08 PM EDT [facility] RDW 17.2(H) 11.0 - 15.0 % LAB HEMETOLOGY METHOD 11/05/2024 1:08 PM EDT [facility] Platelets 268 130 - 400 K/mcL LAB HEMETOLOGY METHOD 11/05/2024 1:08 PM EDT [facility] MPV 11.3(H) 7.0 - 11.0 FL LAB HEMETOLOGY METHOD 11/05/2024 1:08 PM EDT [facility] NRBC 0.0 <1.0 % LAB HEMETOLOGY METHOD 11/05/2024 1:08 PM EDT [facility] NRBC Absolute 0.00 <0.10 K/mcL LAB HEMETOLOGY METHOD 11/05/2024 1:08 PM EDT [facility] Blood Venous blood specimen / Unknown Venipuncture / Unknown 11/05/2024 6:38 AM EDT 11/05/2024 11:55 AM EDT us Lupe Cruz MD LAB BLOOD ORDERABLES Fin al Result [facility] [address] [place] [address], [place] [phone] documented in this encounter Visit Diagnoses Diagnosis Anemia, unspecified Other disorders of electrolyte and fluid balance, not elsewhere classified documented in this encounter Care Teams Flarer Relationship Specialty Start Date End Date Bea Lacey MD [address] [place] [address] PCP - General 04/04/23 documented as of this encounter
--- OUTSIDE RECORDS SUMMARY | 2025-02-13 14:09 | XMS_ITS | Clinical Summary ---
Author Organization [facility] Address [address] [place] [address] Phone Care Team Providers Care Outbound Call Center Representative Name Role Phone Bea Lacey MD Primary Care Provider [phone] Allergies No known active allergies Medications aspirin [...] diabetes mellitus with hyperglycemia 09/2023 CAD in [place] artery 12/30/2023 Erectile dysfunction due to diseases classified elsewhere 12/30/2023 Benign essential tremor 12/30/2023 Immunizations Immunization Administration Dates Next Due Moderna [...] Done Comments Colorectal Cancer Screening: Colonoscopy 1950 Drug Screen 1950 Non-Opioid Controlled Substance Agreement 1952 Diabetes: Annual Foot Exam 1962 Diabetes: [...] not elsewhere classified from Last 3 Months or Most Recently Relevant to Health Maintenance Results * (ABNORMAL) Comprehensive metabolic panel (11/05/2024 6:38 AM EDT) Sodium 140 133 - 145 mmol/L LAB CHEMISTRY METHOD 11/05/2024 2:08 PM EDT [facility] Potassium 4.1 3.5 - 5.5 mmol/L LAB CHEMISTRY METHOD 11/05/2024 2:08 PM EDT [facility] Chloride 106 96 - 110 mmol/L LAB CHEMISTRY METHOD 11/05/2024 2:08 PM EDT [facility] CO2 29 21 - 32 [...] g/dL LAB CHEMISTRY METHOD 11/05/2024 2:08 PM [facility] Albumin 3.1(L) 3.2 - 5.0 g/dL LAB CHEMISTRY METHOD 11/05/2024 2:08 PM [facility] Total Bilirubin 0.4 0.0 - 1.4 mg/dL LAB CHEMISTRY METHOD 11/05/2024 2:08 PM EDT [facility] Blood Venous blood specimen / Unknown Venipuncture / Unknown 11/05/2024 6:38 AM EDT 11/05/2024 11:53 AM EDT us Lupe Cruz MD LAB BLOOD ORDERABLES Fin al Result [facility] [address] [place] [address], [place] [phone] from Last 3 Months or Most Recently Relevant to Health Maintenance Insurance MEDICARE MEDICAID - [place] Care Teams Outbound Call Center Representative Relationship Specialty Start Date End Date Bea Lacey MD [address] [place] [address] PCP - General 04/04/23
--- OUTSIDE RECORDS SUMMARY | 2025-02-13 14:09 | XMS_ITS | Encounter Summary ---
Author Organization [employer] Address [address] [facility] 7t [place] [address] Care Team Providers Care Pump Servicer Helper Name Role Phone Bea Lacey MD Primary Care Provider [phone] Mariely Dennison PharmD Unavailable [phone] Cat Dumont CNP Primary Care Provider [phone] Reason for Visit * Reason Onset Date Comments Nurse Triage 03/05/2024 Encounter Details Date Type Department Care Team ([facility] st Contact Info) Description 03/05/2024 Telephone [facility] [address] [place], [place] [phone] Bea Lacey MD [address] [place] [address] Nurse Triage Social History Tobacco Use Types [...] 2:00 PM EST Office Visit [facility] MED & PEDS [address] [place], [place] [phone] Cat Dumont, CHIEF OF [employer] [address] [place], [place] [phone] 06/18/2025 1:30 PM EDT Office Visit [facility]C ADULT DENTAL [address] [place] [address] Daniele Barlow documented as of this encounter Visit Diagnoses Not on filedocumented in this encounter Additional Health Concerns Assessment Noted Time PHQ-9 Depression Total Score: 20 024 10:22 AM EDT documented as of this encounter Care Teams Pump Servicer Helper Relationship Specialty Start Date End Date Bea Lacey MD [address] [place] [address] PCP - General Family Medicine 09/22/22 12/23/24 Cat Dumont CNP [address] [place] [address] PCP - General Family Medicine 12/24/24 Mariely Dennison PharmD [address] [place] [address] Pharmacist Internal Medicine 07/03/24 01/08/25 [facility] 09/01/24 12/02/24 [facility] 11/09/24 documented as of this encounter
--- OUTSIDE RECORDS SUMMARY | 2025-02-13 14:09 | XMS_ITS | Encounter Summary ---
Author Organization [employer] Address [address] [facility] 7t [place] [address] Care Team Providers Care Dredge Pump Operator Name Role Phone Bea Lacey MD Primary Care Provider [phone] Mariely Dennison PharmD Unavailable [phone] Cat Dumont CNP Primary Care Provider [phone] Reason for Visit * Reason Comments Med Refill Encounter Details Date Type Department Care Team ([facility] st Contact Info) Description 12/03/2024 Refill [facility] MED & PEDS [address] [place], [place] [phone] Bea Lacey MD [address] [place] [address] Gastroesophageal reflux disease without esophagitis Social History [...] [facility] [address] [place] [address] Cat Dumont CNP [address] [place] [address] 06/18/2025 1:30 PM EDT Office Visit [facility] ADULT DENTAL [address] [place] [address] Daniele Barlow documented as of this encounter Visit Diagnoses Diagnosis Gastroesophageal reflux disease without esophagitis Esophageal reflux documented in this encounter Additional Health Concerns Assessment Noted Time PHQ-9 Depression Total Score: 9 09/19/19 25 9:36 AM EDT documented as of this encounter Care Teams Dredge Pump Operator Relationship Specialty Start Date End Date Bea Lacey MD [address] [place] [address] PCP - General Family Medicine 09/22/22 12/23/24 Cat Dumont CNP [address] [place], [place] [phone] PCP - General Family Medicine 12/24/24 Mariely Dennison PharmD [address] [place] [address] Pharmacist Internal Medicine 07/03/24 01/08/25 [facility] 11/09/24 documented as of this encounter
--- OUTSIDE RECORDS SUMMARY | 2025-02-13 14:09 | XMS_ITS | Encounter Summary ---
Author Organization [employer] Address 75 [facility] 7t [place] [address] Care Team Providers Care Ham Marker Name Role Phone Bea Lacey MD Primary Care Provider [phone] Mariely Dennison PharmD Unavailable [phone] Cat Dumont CNP Primary Care Provider [phone] Reason for Visit * Reason Onset Date Comments Nurse Triage 02/08/2024 Encounter Details Date Type Department Care Team ([facility] st Contact Info) Description 02/08/2024 Telephone [facility] MEDICINE [address] [place], [place] [phone] Bea Lacey MD [address] [place], [place] [phone] Nurse Triage Social History Tobacco Use Types [facility] [address] [place] [address] Cat Dumont CNP [address] [place] [address] 06/18/2025 1:30 PM EDT Office Visit [facility] ADULT DENTAL [address] [place] [address] Daniele Barlow documented as of this encounter Visit Diagnoses Not on filedocumented in this encounter Additional Health Concerns Assessment Noted Time PHQ-9 Depression Total Score: 20 024 10:22 AM EDT documented as of this encounter Care Teams Ham Marker Relationship Specialty Start Date End Date Bea Lacey MD [address] [place] [address] PCP - General Family Medicine 09/22/22 12/23/24 Cat Dumont CNP [address] [place], [place] [phone] PCP - General Family Medicine 12/24/24 Mariely Dennison, [place] [address] [place] [address] Pharmacist Internal Medicine 07/03/24 01/08/25 [facility] 09/01/24 12/02/24 [facility] 11/09/24 documented as of this encounter
--- OUTSIDE RECORDS SUMMARY | 2025-02-13 14:09 | XMS_ITS | Encounter Summary ---
Author Organization [employer] Address 75 [facility] 7t [place] [address] Care Team Providers Care Felt Hat Pouncing Operator Hand Name Role Phone Mariely Dennison PharmD Unavailable [phone] Cat Dumont CNP Primary Care Provider [phone] Reason for Visit * Reason Onset Date Comments Call Back Request 12/26/2024 Encounter Details Date Type Department Care Team ([facility] st Contact Info) Description 12/26/2024 Telephone [facility]C MED & PEDS [address] [place], [place] [phone] Cat Dumont CNP [address] [place], [place] [phone] Call Back Request Social History Tobacco Use [...] a mistake with medications Contact pt at [phone] documented in this encounter Plan of Treatment Upcoming Encounters Date Type Department Care Team ([facility] st Contact Info) Description 02/19/2025 2:00 PM EST Office Visit [facility] MED & PEDS [address] [place] [address] Cat Dumont CNP [address] [place] [address] 06/18/2025 1:30 PM EDT Office Visit [facility] ADULT DENTAL [address] [place] [address] Daniele Barlow documented as of this encounter Visit Diagnoses Not on filedocumented in this encounter Additional Health Concerns Assessment Noted Time PHQ-9 Depression Total Score: 9 09/19/19 25 9:36 AM EDT documented as of this encounter Care Teams Felt Hat Pouncing Operator Hand Relationship Specialty Start Date End Date Cat Dumont CNP [address] [place] [address] PCP - General Family Medicine 12/24/24 Mariely Dennison PharmD [address] [place] [address] Pharmacist Internal Medicine 07/03/24 01/08/25 [facility] 11/09/24 documented as of this encounter
--- OUTSIDE RECORDS SUMMARY | 2025-02-13 14:09 | XMS_ITS | Encounter Summary ---
Author Organization [employer] Address [address] [facility] 7t [place] [address] Care Team Providers Care Junior Marketing Associate Name Role Phone Bea Lacey MD Primary Care Provider [phone] Mariely Dennison PharmD Unavailable [phone] Cta Dumont CNP Primary Care Provider [phone] Reason for Visit * Reason Comments Med Refill Encounter Details Date Type Department Care Team ([facility] st Contact Info) Description 10/12/2022 Refill [facility] MED & PEDS [address] [place], [place] [phone] Gordon Mills MD [address] [place] [address] Chronic rhinitis Social History Tobacco Use Types [...] [facility] [address] [place] [address] Cat Dumont CNP [address] [place] [address] 06/18/2025 1:30 PM EDT Office Visit [facility] ADULT DENTAL [address] [place] [address] Daniele Barlow documented as of this encounter Visit Diagnoses Diagnosis Chronic rhinitis documented in this encounter Additional Health Concerns Assessment Noted Time PHQ-9 Depression Total Score: 7 05/29/19 10:45 AM EDT documented as of this encounter Care Teams Junior Marketing Associate Relationship Specialty Start Date End Date Bea Lacey MD [address] [place] [address] PCP - General Family Medicine 09/22/22 12/23/24 Cat Dumont CNP [address] [place] [address] PCP - General Family Medicine 12/24/24 Mariely Dennison PharmD [address] [place] [address] Pharmacist Internal Medicine 07/03/24 01/08/25 [facility] 09/01/24 12/02/24 [facility] 11/09/24 documented as of this encounter
--- OUTSIDE RECORDS SUMMARY | 2025-02-13 14:09 | XMS_ITS | Encounter Summary ---
Author Organization [facility] [employer] Address [address] [facility] [address] 7[address] [place] [address] Care Team Providers Care Car Wash Manager Name Role Phone Bea Lacey MD Primary Care Provider [phone] Mariely Dennison PharmD Unavailable [phone] Cat Dumont CNP Primary Care Provider [phone] Encounter Details Date Type Department Care Team (Late st Contact Info) Description 06/07/[address] [facility] MEDICINE [address] [place], [place] [phone] ProviderTia MD Social History Tobacco Use Types [...] [facility] MED & PEDS [address] [place], [place] [phone] Cat Dumont CNP [address] [place] [address] 06/18/2025 1:30 PM EDT Office Visit [facility] ADULT DENTAL [address] [place] [address] Daniele Barlow documented as of this encounter [...] as of this encounter Care Teams Car Wash Manager Relationship Specialty Start Date End Date Bea Lacey MD [address] [place] [address] PCP - General Family Medicine 09/22/22 12/23/24 Cat Dumont CNP [address] [place], [place] [phone] PCP - General Family Medicine 12/24/24 Mariely Dennison, LadiD [address] [place] [address] Pharmacist Internal Medicine 07/03/24 01/08/25 [facility] 09/01/24 12/02/24 [facility] 11/09/24 documented as of this encounter
--- OUTSIDE RECORDS SUMMARY | 2025-02-13 14:09 | XMS_ITS | Clinical Summary ---
Author Organization [employer] Address [address] [facility] 7t [place] [address] Care Team Providers Care Design Technician Name Role Phone Cat Dumont PHOTOGRAPHIC COLORIST Primary Care Provider [phone] Allergies Active Allergy Reactions Criticality Noted Date [...] 024 Active Blood Glucose Monitoring Suppl (FreeStyle Gasport Lite) w/Device kit TEST BLOOD SUGAR DAILY [...] 1 each every 15 days. 2 each 02/02/20 25 11:54 AM EST Active glucose blood (FreeStyle Precision Bon Test) test strip Test blood sugar up to 3 times daily as directed 100 each 11 Active traZODone (Desyrel) 50 MG tablet Take 1.5 tablets by mouth at bedtime. Active cloNIDine (Catapres) 0.1 MG tablet Take 1 tablet by mouth if needed in the morning and at bedtime (For opiod withdrawal OR rapid heartbeat). Active rosuvastatin (Crestor) 40 MG tabletIndications :Mixed hyperlipidemia TAKE ONE TABLET EVERY NIGHT AT BEDTIME 30 tablet 5 02/01/20 25 4:16 PM EST Active Kerendia 20 MG tablet Take 1 tablet by mouth Once per day. Active Entresto 49-51 MG tablet Take 1 tablet by mouth 2 times daily. Active famotidine (Pepcid) 40 MG tablet TAKE ONE TABLET EVERY NIGHT AT BEDTIME 90 tablet 1 Active diclofenac sodium 3 % gelIndications:Pa in Apply topically 2 times daily. 100 g 2 Active pseudoephedrine (Sudafed) 30 MG tablet Take 1 tablet (30 mg) by mouth every 4 (four) hours if needed for congestion for up to 10 days. 30 tablet 025 Active Calcium Carb-Cholecalcife rol 600-10 MG-MCG tabletIndications :Vitamin D deficiency TAKE ONE TABLET IN THE MORNING AND EVENING 60 tablet 11 025 Active lubiprostone (Amitiza) 8 MCG capsuleIndication s:Irritable bowel syndrome with both constipation and diarrhea Take 1 capsule (8 mcg) by mouth with breakfast and with evening meal. 60 capsule 1 02/01/20 25 4:16 PM EST 025 Active amoxicillin (Amoxil) 500 MG capsule Take 4 tabs (2 grams) 1 hour prior to dental procedure 12 capsule 01/03/20 25 9:53 AM EST 025 Active pilocarpine (Salagen) 5 MG tabletIndications :Gastroesophageal reflux disease without esophagitis TAKE ONE TABLET IN THE MORNING AND EVENING 60 tablet 3 025 Active docusate sodium (Colace) 100 MG capsuleIndication s:Chronic idiopathic constipation TAKE ONE CAPSULE TWICE DAILY IN THE MORNING AND AT BEDTIME 60 capsule 3 02/01/20 25 4:16 PM EST 025 Active baclofen (Lioresal) 10 MG tabletIndications :Muscle spasm TAKE ONE TABLET AT NOON, EVENING, AND BEDTIME 90 tablet 2 02/01/20 25 4:16 PM EST 025 Active gabapentin (Neurontin) 100 MG capsuleIndication s:Pain TAKE TWO CAPSULES in the morning and noon and TAKE THREE CAPSULES EVERY DAY AT BEDTIME 210 capsule 2 02/01/20 25 4:16 PM EST 025 Active torsemide (Demadex) 5 MG tabletIndications :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) TAKE ONE TABLET EVERY MORNING 30 tablet 2 02/01/20 25 4:16 PM EST 025 Active sucralfate (Carafate) 1 g tabletIndications :Gastroesophageal reflux disease without esophagitis TAKE ONE TABLET TWICE DAILY IN THE MORNING AND AT BEDTIME ON AN EMPTY STOMACH 60 tablet 1 02/01/20 25 4:16 PM EST 025 Active senna (Senokot) 8.6 MG tabletIndications :Constipation, unspecified constipation type TAKE ONE TABLET EVERY NIGHT AT BEDTIME 90 tablet 02/01/20 4:16 PM EST Active pseudoephedrine ER (Sudafed-12 Hour) 120 MG 12 hr tablet TAKE ONE TABLET EVERY TWELVE HOURS NEEDED FOR CONGESTION 60 tablet 02/08/20 11:50 AM EST Active torsemide (Demadex) 5 MG tabletIndications :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 30 tablet 2 01/03/20 9:53 AM EST 2024 Discontinued sennosides (Senokot) 8.6 MG tabletIndications :Constipation, unspecified constipation type Take 1 tablet (8.6 mg) by mouth at bedtime. 30 tablet 2 2024 Discontinued baclofen (Lioresal) 10 MG tabletIndications :Muscle spasm Take 1 tablet (10 mg) by mouth 3 times daily. 90 tablet 2 01/03/20 9:53 AM EST 2024 Discontinued gabapentin (Neurontin) 100 MG capsuleIndication s:Pain Take 2 capsules (200 mg) in the morning and at noon and 3 capsules (300 mg) at bedtime 210 capsule 2 01/03/20 9:53 AM EST 2024 Discontinued sucralfate (Carafate) 1 g tabletIndications :Gastroesophageal reflux disease without esophagitis Take 1 tablet (1 g) by mouth 2 times daily. TAKE ONE TABLET TWICE DAILY IN THE MORNING AND AT BEDTIME ON AN EMPTY STOMACH 60 tablet 1 01/03/20 9:53 AM EST 2024 Discontinued(R eorder (will not trigger notification to Pharmacy)) pseudoephedrine ER (Sudafed-12 Hour) 120 MG 12 hr tablet TAKE ONE TABLET EVERY TWELVE HOURS NEEDED FOR CONGESTION 60 tablet 01/05/20 12:33 PM EST 2024 Discontinued(R eorder (will not trigger notification to Pharmacy)) Active Problems Problem Noted Date Diagnosed Date Anticoagulated 12/17/2024 Encounter for diagnostic endoscopy 12/17/2024 S/P insertion of brain-responsive neurostimulati on device 12/17/2024 Asthenia 10/28/2024 Falling 10/28/2024 Hypokalemia 10/28/2024 retirement current use of anticoagulant therapy 0 10/28/2024 [...] to surgery has appointment next week at [facility]. 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 Date Type Department Care Team Description 01/29/2025 Refill [facility] [address] [place] [address] Cat Dumont CNP 01/28/2025 Refill [facility] [address] [place] [address] Cat Dumont CNP Constipation, unspecified constipation type 01/21/2025 Refill [facility] [address] [place] [address] Peter Barlow MD Gastroesophageal reflux disease without esophagitis 01/21/2025 Refill [facility] [address] [place] [address] Cat Dumont CNP Muscle spasm; Pain; CKD stage 3 secondary to diabetes ([facility]); Gastroesophageal reflux disease without esophagitis 01/08/2025 Travel 01/01/2025 Orders Only [facility] [address] [place] [address] Sari Rangel MD Type 2 diabetes mellitus with hyperglycemia, without long-term current use of insulin ([facility]) (Primary Dx) 01/01/2025 Refill [facility] [address] [place] [address] Bea Lacey MD 12/31/[address] [facility] MEDICINE [address] [place] [address] Cat Dumont CNP 12/28/2024 Refill [facility] [address] [place] [address] Bea Lacey MD Gastroesophageal reflux disease without esophagitis; Chronic idiopathic constipation 12/27/2024 10:00 AM EST Office Visit [facility] ADULT DENTAL [address] [place] [address] Shyam Gillette, DDS 12/26/2024 2:00 PM EST Office Visit [facility] AD[facility]ENTAL [address] [place] [address] Shyam Gillette, DDS 12/26/2024 Telephone [facility] [address] [place] [address] Cat Dumont CNP Call Back Request 12/24/[address] [facility] [address] [place] [address] Cat Dumont CNP call back requested 12/24/[address] [facility] [address] [place] [address] Katja Bassett, CRISTELA 12/19/2024 Orders Only [facility] [address] [place] [address] Cat Dumont CNP Irritable bowel syndrome with both constipation and diarrhea (Primary Dx) 12/19/[address] [facility] MED[facility] [address] [place] [address] Bea Lacey MD Nurse Triage 12/18/2024 9:15 AM EDT Office Visit [facility] [address] [place] [address] Cat Dumont CNP Essential tremor (Primary Dx); Type 2 diabetes mellitus with hyperglycemia, without long-term current use of insulin (HCC); Chronic right-sided low back pain without sciatica; Chronic pain in left shoulder 12/18/2024 Travel 12/17/2024 Telephone [facility] [address] [place] [address] Bea Lacey MD chart prep 12/17/2024 Telephone [facility] [address] [place] [address] Bea Lacey MD 12/14/2024 2:15 PM EDT Office Visit [facility] ADULT DENTAL [address] [place] [address] Daniele Barlow Dental calculus (Primary Dx) 12/03/2024 Telephone [facility] [address] [place] [address] Bea Lacey MD 12/03/2024 Patient Outreach [facility] [address] [place] [address] Bea Lacey MD Care Coordination (Home Health Utilization) 12/03/2024 Refill [facility] [address] [place] [address] Bea Lacey MD Gastroesophageal reflux disease without esophagitis 11/27/2024 Refill [facility] [address] [place] [address] Bea Lacey MD Gastroesophageal reflux disease without esophagitis; Essential tremor 11/21/2024 Refill [facility] [address] [place] [address] Bea Lacey MD Vitamin D deficiency 11/20/2024 Orders Only [facility] [address] [place] [address] Bea Lacey MD 11/20/2024 Telephone [facility] [address] [place] [address] Bea Lacey MD 11/16/2024 Orders Only [facility] [address] [place] [address] Cat Dumont CNP Constipation, unspecified constipation type (Primary Dx); CKD stage 3 secondary to diabetes ([facility]); Muscle spasm; Pain 11/16/[address] [facility] [address] [place] [address] Bea Lacey MD Appointment 11/16/2024 Telephone [facility] [address] [place] [address] Bea Lacey MD 11/16/2024 Refill [facility] [address] [place], [place] [phone] Bea Lacey MD 11/15/[address] [facility] [address] [place], [place] [phone] Baylee De La Torre, PharmD 11/14/[address] [facility] [address] [place], [place] [phone] Bea Lacey MD from Last 3 Months Immunizations Immunization [...] [facility] [address] [place], [place] [phone] Cat Dumont, PHOTOGRAPHIC COLORIST [address] [place], [place] [phone] 06/18/2025 1:30 PM EDT Office Visit [facility]ULT [facility] [address] [facility] [place] [address] Daniele Barlow Health Maintenance Due Date Last Done Comments CT Colonography 1950 FIT DNA/Cologuard 1950 FIT 1950 FOBT 1950 Sigmoidoscopy 1950 Hepatitis A Vaccines (1 of 2 - Risk 2-dose series) 05/01/1971 Diabetes: Foot Exam 11/10/2023 11/09/2022, 11/09/2022, 11/09/2022, Additional history exists Colonoscopy 03/14/2024 03/14/2014 Colorectal Cancer Screening 03/14/2024 Lipid Panel 11/09/2024 11/10/2023, 03/25, 11/09/2022, Additional [...] manage their type 2 diabetes No Mariely Dennison, PharmRosalina Weekly blood pressure task Care Plan Weekly blood pressure task No Mariely Dennison, PharmRosalina Help patients manage their type 2 diabetes Care Plan Help patients manage their type 2 diabetes No Mariely Dennison, PharmD Patient has chronic kidney disease Care Plan Patient has chronic kidney disease No Mariely Dennison, PharmRosalina Weekly blood pressure task Care Plan Weekly blood pressure task No Mariely Dennison, PharmRosalina Patient has chronic kidney disease Care Plan Patient has chronic kidney disease No Mariely Dennison, PharmRosalina Weekly blood pressure task Care Plan Weekly blood pressure task No Jeri Whitney LPN Weekly blood pressure task Care Plan Weekly blood pressure task No Jeri Whitney LPN Patient has chronic kidney disease Care Plan Patient has chronic kidney disease No Jeri Whitney LPN Patient has chronic kidney disease Care Plan Patient has chronic kidney disease Jeri Thompson LPN Weekly blood pressure task Care Plan Weekly blood pressure task No Jeri Whitney LPN Weekly blood pressure task Care Plan Weekly blood pressure task No Jeri Whitney LPN Patient has chronic kidney disease Care Plan Patient has chronic kidney disease No Jeri Whitney LPN Patient has chronic kidney disease Care Plan Patient has chronic kidney disease No Jeri Whitney LPN Procedures Procedure Name Priority Date/Time Associated Diagnosis [...] current use of insulin (HCC) POCT GLUCOSE (CPT-07567) Routine 12/18/2024 9:38 AM EDT Type 2 [...] RADIOGRAPHIC IMAGE Routine 12/14/2024 2:15 PM EDT HM DIABETES EYE EXAM Routine 06/28/2024 11:09 [...] Narrative 01/01/2025 10:40 AM EST [place] [address] XRay Report Signed Patient: Malik Maki MR#: [id number] 2 : 1950 Acct:[id number] Age/Sex: 74 / M ADM Date: 01/01/25 Loc: [facility] Attending Dr: Chino Gates MD Ordering Physician: Chino Gates MD Date of Service: 01/01/25 Procedure(s): XR hips DI min 3V Accession Number(s): [id number] cc: Chino Gates MD; Cat Dumont NP [...] iliac bone no fully included in the [id number]-qctx. XR/XR hips DI min 3V IMPRESSION: No acute fracture or dislocation. No gross degenerative changes. Prior surgical procedure. Electronically signed by: Sulaiman Pichardo MD 01/01/2025 10:37 AM EST RP Dictated By: Sulaiman Mae MD Signed By: <Electronically signed by Sulaiman Buchanan MD in OV> 01/01/25 1037 DD/ 1018 TD/TT: 01/01/25 1024 Sheet Rock Hanger: Procedure Note Donotuseinterpreter, Image - 01/01/[address] [address] XRay Report Signed Patient: Malik Maki JMR#: [id number] 2 : 1950cct:[id number] Age/Sex: 74 / MADM Date: 01/01/25 Loc: HO.XRAY Attending Dr: Chino Gates MD Ordering Physician: Chino Gates MD Date of Service: 01/01/25 Procedure(s): XR hips DI min 3V Accession Number(s): [id number] cc: Chino Gates MD; Cat Dumont NP [...] iliac bone no fully included in the [id number]-hcfv. XR/XR hips DI min 3V IMPRESSION: No acute fracture or dislocation. No gross degenerative changes. Prior surgical procedure. Electronically signed by: Sulaiman Pichardo MD 01/01/2025 10:37 AM EST RP Dictated By: Sulaiman Mae MD Signed By: <Electronically signed by Sulaiman Buchanan MDin OV> 01/01/25 1037 DD/ 1018 TD/TT: 01/01/25 1024 Sheet Rock Hanger: us [facility] External Provider IMG XR PROCEDURES Edited Result - Final * (ABNORMAL) POCT A1c (12/18/2024 9:39 AM EDT) [facility] Hemoglobin A1C 6.6(A) 4.0 - 5.7 % QC Media Lot # Comment:[id number] Lot# Expiration Date Comment:06/14/2026 Blood 12/18/2024 9:39 AM EDT [facility] POINT OF CARE TEST ENTER/ EDIT ORDERABLES Final Result * (ABNORMAL) POCT glucose manually resulted (12/18/2024 9:38 AM EDT) [facility] Glucose Blood, POC 257(A) 60 - 200 mg/dL QC Media Lot # Comment:[id number] Lot# Expiration Date Comment:03/31/2025 Blood Capillary blood specimen / Unknown 12/18/2024 9:38 AM EDT [facility] POINT OF CARE TEST ENTER/ EDIT ORDERABLES Final Result * Hm Diabetes Eye Exam (06/28/2024 11:09 AM EDT) Historical Provider HEALTH MAINTENANCE Final Result * Lipid Panel, Standard (11/10/2023 11:22 AM EDT) Pathologist [facility] Triglycerides 76 <150 mg/dL [facility] Comment:Desirable Triglyceri de: less than 150 mg/dLBorderline High Triglyceride 150-199 mg/dLHigh Triglyceride: 200-499 mg/dLVery High Triglyceride: greater than or equal to 5OO mg/dL Cholesterol 110 <200 mg/dL [facility] Comment:Desirable Cholestero l: less than 200 mg/dLBorderline High Cholesterol: 200-239 mg/dLHigh Cholesterol: greater than 239 mg/dL LDL Cholesterol Calculated 50 <100 mg/dL [facility] Comment:Desirable LDL: less than 100 mg/dLNear Optimal/Above Optimal LDL: 110- 129 mg/dLBorderline High LDL: 130-159 mg/dLHigh LDL: 160-189 mg/dLVery High LDL: greater than or equal to 190 mg/dL HDL Cholesterol 45 >40 mg/dL [facility] Comment:Desirable HDL: great er than 40 mg/dL Note: This HDL assay may give artificially low results in patients with liver disease. Blood Venous blood specimen / Unknown 11/10/2023 11:22 AM EDT 11/10/2023 2:56 PM EDT Bea Lacey MD LAB BLOOD ORDERABLES Final Resul t [facility] [address] [place] [address] [phone] * HEPATITIS C AB W/REFL TO HCV RNA, QN, PCR (10/15/2019 1:23 PM EDT) HEPATITIS C ANTIBODY NON-REACT ELLE NON-REACT ELLE [facility] INDEX 0.01 <1.00 [facility] Comment: HCV antibody was non-reactive. There is no laboratory evidence of HCV infection. In most cases, no further action is required. However, if recent HCV exposure is suspected, a test for HCV RNA (test code 77594) is suggested. For additional information please refer to http://education.Joincube.com.Embarke/faq/YUH46a4 (This link is being provided for informational/ educational purposes only.) 10/15/2019 1:23 PM EDT us Gordon Rocha MD HISTORICAL/NON ORD ERABLE LABS Final Result [facility] [address] [place] [address], * Hm Colonoscopy (03/14/2014 12:17 PM EST) [...] 01/07/2025 Patient has chronic kidney disease 01/07/2025 Weekly blood pressure task 01/22/2025 Weekly blood pressure task 01/22/2025 Patient has chronic kidney disease 01/22/2025 Patient has chronic kidney disease 01/22/2025 Weekly blood pressure task 01/29/2025 Weekly blood pressure task 01/29/2025 Patient has chronic kidney disease 01/29/2025 Patient has chronic kidney disease 01/29/2025 Insurance MEDICARE Member Subscriber Plan / Payer (Ef fective 2022-Present) Name:Malik Maki Member ID:[id number] Relation to Subscriber:Self Name:Malik Maki Subscriber ID:[id number] Payer ID:STATE Group ID:Not on file Type:Medicare Address: [facility] [address] [phone] [facility] ST[facility] ADULT Care Teams Design Technician Relationship Specialty Start Date End Date Cat Dumont CNP [address] [place] [address] [place] [address] PCP - General Family Medicine 12/24/24 [facility] 11/09/24
--- OUTSIDE RECORDS SUMMARY | 2025-02-13 14:09 | XMS_ITS | Encounter Summary ---
Author Organization [employer] Address [address] [facility] 7t [place] [address] Care Team Providers Care Medical Office Coordinator Name Role Phone Bea Lacey MD Primary Care Provider [phone] Mariely Dennison PharmD Unavailable [phone] Cat Dumont CNP Primary Care Provider [phone] Reason for Visit * Reason Onset Date Comments Med Refill 10/06/2023 Encounter Details Date Type Department Care Team (Late st Contact Info) Description 10/06/2023 Telephone [facility] MEDICINE [address] [place], [place] [phone] Bea Lacey MD [address] [place], [place] [phone] Med Refill Social History Tobacco Use Types [...] X 4 MM To be sent to: [facility] Pharmacy documented in this encounter Plan of Treatment Upcoming Encounters Date Type Department Care Team (Late st Contact Info) Description 02/19/2025 2:00 PM EST Office Visit [facility] MED & PEDS [address] [place] [address] Cat Dumont CNP [address] [place] [address] 06/18/2025 1:30 PM EDT Office Visit [facility] ADULT DENTAL [address] [place] [address] Daniele Barlow documented as of this encounter Visit Diagnoses Not on filedocumented in this encounter Additional Health Concerns Assessment Noted Time PHQ-9 Depression Total Score: 20 024 10:22 AM EDT documented as of this encounter Care Teams Medical Office Coordinator Relationship Specialty Start Date End Date Bea Lacey MD [address] [place] [address] PCP - General Family Medicine 09/22/22 12/23/24 Cat Dumont CNP [address] [place] [address] PCP - General Family Medicine 12/24/24 Mariely Dennison PharmD [address] [place] [address] Pharmacist Internal Medicine 07/03/24 01/08/25 [facility] 09/01/24 12/02/24 [facility] 11/09/24 documented as of this encounter
--- OUTSIDE RECORDS SUMMARY | 2025-02-13 14:09 | XMS_ITS | Encounter Summary ---
Author Organization [employer] Address [address] [facility] 7t [place] [address] Care Team Providers Care Equipment Processor Name Role Phone Bea Lacey MD Primary Care Provider [phone] Mariely Dennison PharmD Unavailable [phone] Cat Dumont CNP Primary Care Provider [phone] Reason for Visit * Reason Comments Med Refill Encounter Details Date Type Department Care Team ([facility] st Contact Info) Description 02/06/2024 Refill [facility] DIABETES/NUTRITION [address] [place] [address] Bea Lacey MD [address] [place], [place] [phone] Type 2 diabetes mellitus with hyperglycemia, without long-term current use of insulin ([facility]) Social History Tobacco Use Types [...] [facility] [address] [place] [address] Cat Dumont CNP [address] [place] [address] 06/18/2025 1:30 PM EDT Office Visit [facility] ADULT DENTAL [address] [place] [address] Daniele Barlow documented as of this encounter Visit Diagnoses Diagnosis Type 2 diabetes mellitus with hyperglycemia, without long-term current use of insulin (HCC) documented in this encounter Additional Health Concerns Assessment Noted Time PHQ-9 Depression Total Score: 20 024 10:22 AM EDT documented as of this encounter Care Teams Equipment Processor Relationship Specialty Start Date End Date Bea Lacey MD [address] [place] [address] PCP - General Family Medicine 09/22/22 12/23/24 Cat Dumont CNP [address] [place] [address] PCP - General Family Medicine 12/24/24 Mariely Dennison, [place] [address] [place] [address] Pharmacist Internal Medicine 07/03/24 01/08/25 [facility] 09/01/24 12/02/24 [facility] 11/09/24 documented as of this encounter
--- OUTSIDE RECORDS SUMMARY | 2025-02-13 14:09 | XMS_ITS | Encounter Summary ---
Author Organization [employer] Address [address] [facility] 7t [place] [address] Care Team Providers Care Beverage Inspection Machine Tender Name Role Phone Bea Lacey MD Primary Care Provider Mariely Dennison PharmD Unavailable [phone] Cat Dumont CNP Primary Care Provider [phone] Encounter Details Date Type Department Care Team (Late st Contact Info) Description 02/29/2024 Orders Only [facility] [address] [place], [place] [phone] Bea Lacey MD [address] [place], [place] [phone] Type 2 diabetes mellitus with hyperglycemia (CMS/HCC) [...] Description 02/19/2025 2:00 PM EST Office Visit [facility] MED [facility] PEDS [address] [place] [address] Cat Dumont CNP [address] [place] [address] 06/18/2025 1:30 PM EDT Office Visit [facility] ADULT DENTAL [address] [place] [address] Daniele Barlow documented as of this encounter Visit Diagnoses Diagnosis Type 2 diabetes mellitus with hyperglycemia (HCC) documented in this encounter Additional Health Concerns Assessment Noted Time PHQ-9 Depression Total Score: 20 024 10:22 AM EDT documented as of this encounter Care Teams Beverage Inspection Machine Tender Relationship Specialty Start Date End Date Bea Lacey MD [address] [place] [address] PCP - General Family Medicine 09/22/22 12/23/24 Cat Dumont CNP [address] [place] [address] PCP - General Family Medicine 12/24/24 Mariely Dennison PharmD [address] [place] [address] Pharmacist Internal Medicine 07/03/24 01/08/25 [facility] 09/01/24 12/02/24 [facility] 11/09/24 documented as of this encounter
--- OUTSIDE RECORDS SUMMARY | 2025-02-13 14:09 | XMS_ITS | Encounter Summary ---
Author Organization [employer] Address 75 [facility] 7t [place] [address] Care Team Providers Care Life Guard Name Role Phone Bea Lacey MD Primary Care Provider [phone] Mariely Dennison PharmD Unavailable [phone] Cat Dumont CNP Primary Care Provider [phone] Reason for Visit * Reason Onset Date Comments Medication Question 02/07/2023 Encounter Details Date Type Department Care Team ([facility] st Contact Info) Description 02/07/2023 Telephone [facility] MEDICINE [address] [place], [place] [phone] Bea Lacey MD [address] [place], [place] [phone] Medication Question Social History Tobacco Use Types [...] of Linzess and had the med lowered [id number] last month. Pt states diarrhea has stopped [...] Description 02/19/2025 2:00 PM EST Office Visit [facility] MED & PEDS 505 [place] [address] Cat Dumont, TIRE MOLDER 505 [place] [address] 06/18/2025 1:30 PM EDT Office Visit [facility] ADULT DENTAL 505 [place] [address] Daniele Barlow documented as of this encounter Visit Diagnoses Not on filedocumented in this encounter Additional Health Concerns Assessment Noted Time PHQ-9 Depression Total Score: 7 05/29/19 23 10:45 AM EDT documented as of this encounter Care Teams Life Guard Relationship Specialty Start Date End Date Bea Lacey MD 230 [place] [address] PCP - General Family Medicine 09/22/22 12/23/24 Cat Dumont CNP 505 [place] [address] PCP - General Family Medicine 12/24/24 Mariely Dennison PharmD 230 [place] [address] Pharmacist Internal Medicine 07/03/24 01/08/25 [facility] 09/01/24 12/02/24 [facility] 11/09/24 documented as of this encounter
--- OUTSIDE RECORDS SUMMARY | 2025-02-13 14:09 | XMS_ITS | Encounter Summary ---
Author Organization [facility] Address [address] [place] [address] Care Team Providers Care Pulpwood Contractor Name Role Phone Bea Lacey MD Primary Care Provider [phone] Encounter Details Date Type Department Care Team (Late st Contact Info) Description 11/11/2024 Lab Requisition [facility] - Main Lab [address] [place] [address] Lupe Cruz MD [address] [phone] Anemia, unspecified; Other disorders of electrolyte and [...] classified documented in this encounter Care Teams Pulpwood Contractor Relationship Specialty Start Date End Date Bea Lacey MD [address] [place] [address] PCP - General 04/04/23 documented as of this encounter
--- OUTSIDE RECORDS SUMMARY | 2025-02-13 14:10 | XMS_ITS | Encounter Summary ---
Author Organization [employer] Address 75 [facility] 7t [place] [address] Care Team Providers Care Ceo & Founder Name Role Phone Bea Lacey MD Primary Care Provider [phone] Mariely Dennison PharmD Unavailable [phone] Cat Dumont CNP Primary Care Provider [phone] Reason for Visit * Reason Comments Med Refill Encounter Details Date Type Department Care Team ([facility] Contact Info) Description 03/30/2024 Refill [facility] CHC MED & PEDS [address] [place], [place] [phone] Bea Lacey MD 505 [place] [address] Essential tremor Social History Tobacco Use Types [...] [facility] MED & PEDS [address] [place] [address] Cat Dumont CNP 505 [place] [address] 06/18/2025 1:30 PM EDT Office Visit [facility] ADULT DENTAL [address] [place] [address] Daniele Barlow documented as of this encounter Visit Diagnoses Diagnosis Essential tremor documented in this encounter Additional Health Concerns Assessment Noted Time PHQ-9 Depression Total Score: 20 024 10:22 AM EDT documented as of this encounter Care Teams Ceo & Founder Relationship Specialty Start Date End Date Bea Lacey MD 230 [place] [address] PCP - General Family Medicine 09/22/22 12/23/24 Cat Dumont CNP 505 [place] [address] PCP - General Family Medicine 12/24/24 Mariely Dennison PharmD 230 [place] [address] Pharmacist Internal Medicine 07/03/24 01/08/25 [facility] 09/01/24 12/02/24 [facility] 11/09/24 documented as of this encounter
--- OUTSIDE RECORDS SUMMARY | 2025-02-13 14:10 | XMS_ITS | Encounter Summary ---
Author Organization [employer] Address 75 [facility] 7t [place] [address] Care Team Providers Care Seafood Technology Specialist Name Role Phone Bea Lacey MD Primary Care Provider [phone] Mariely Dennison PharmD Unavailable [phone] Cat Dumont CNP Primary Care Provider [phone] Encounter Details Date Type Department Care Team ([facility] st Contact Info) Description 05/21/2024 Telephone [facility] MED & PEDS 505 [place], [place] [phone] Bea Lacey MD 505 [place], [place] [phone] Social History Tobacco Use Types Packs/Day Years [...] [facility] [address] [place] [address] Cat Dumont CNP 505 [place] [address] 06/18/2025 1:30 PM EDT Office Visit [facility] ADULT DENTAL 505 [place] [address] Daniele Barlow documented as of this encounter Visit Diagnoses Not on filedocumented in this encounter Additional Health Concerns Assessment Noted Time PHQ-9 Depression Total Score: 20 024 10:22 AM EDT documented as of this encounter Care Teams Seafood Technology Specialist Relationship Specialty Start Date End Date Bea Lacey MD 230 [place] [address] PCP - General Family Medicine 09/22/22 12/23/24 Cat Dumont CNP 505 [place] [address] PCP - General Family Medicine 12/24/24 Mariely Dennison PharmD 230 [place] [address] Pharmacist Internal Medicine 07/03/24 01/08/25 [facility] 09/01/24 12/02/24 [facility] 11/09/24 documented as of this encounter
--- OUTSIDE RECORDS SUMMARY | 2025-02-13 14:10 | XMS_ITS | Encounter Summary ---
Author Organization [employer] Address 75 [facility] 7t [place] [address] Care Team Providers Care Yarn Packer Name Role Phone Gordon [place] MD Primary Care Prov ider Bea Lacey MD Primary Care Provider [phone] Mariely Dennison PharmD Unavailable [phone] Cat Dumont CNP Primary Care Provider [phone] Reason for Visit * Reason Onset Date Comments PCP change 09/01/2022 Encounter Details Date Type Department Care Team ([facility] st Contact Info) Description 09/01/2022 Telephone [facility] MED & PEDS 505 [place], [place] [phone] Gordon Mills MD 505 [place], [place] [phone] PCP change Social History Tobacco Use Types [...] MED & PEDS 505 [place] [address] Cat Dumont CNP 505 [place] [address] 06/18/2025 1:30 PM EDT Office Visit [facility] ADULT DENTAL 505 [place] [address] Daniele Barlow documented as of this encounter Visit Diagnoses Not on filedocumented in this encounter Additional Health Concerns Assessment Noted Time PHQ-9 Depression Total Score: 7 05/29/19 23 10:45 AM EDT documented as of this encounter Care Teams Yarn Packer Relationship Specialty Start Date End Date Gordon [place] MD [address] [place] [address] PCP - General Internal Medicine 07/12/19 09/21/22 Bea Lacey MD [address] [place] [address] PCP - General Family Medicine 09/22/22 12/23/24 Cat Dumont CNP 505 [place] [address] PCP - General Family Medicine 12/24/24 Mariely Dennison PharmD 230 [place] [address] Pharmacist Internal Medicine 07/03/24 01/08/25 [facility] 09/01/24 12/02/24 [facility] 11/09/24 documented as of this encounter
--- OUTSIDE RECORDS SUMMARY | 2025-02-13 14:10 | XMS_ITS | Clinical Summary ---
Author Organization [facility] Address [address] [address] Phone Care Team Providers Care Network Coordinator Name Role Phone Lula Lacey MD Primary Care Provider [phone] Allergies Active Allergy Reactions Criticality Noted Date [...] and 250 mg before bedtime. Active Methylnaltrexone Byron (Relistor) 150 MG tablet Take by mouth [...] Only [facility] [address] [address] Get Galo MD Chronic kidney disease stage 2; Essential tremor 12/22/2024 Orders Only [facility] [address] [address] Jeri Keller ARNP Stage 3a chronic kidney [...] Care Team (Late st Contact Info) Description 03/18/2025 10:15 AM EST Office Visit [facility] [address] [address] Get Galo MD [address] [address] Health Maintenance Due Date Last [...] None seen 0 - 5 /hpf [facility] RBC, Urine None seen 0 - 2 /hpf [facility] Squamous Epithelial, Urine None seen 0 - 10 /hpf [facility] Casts None seen None seen /lpf [facility] Bacteria, Urine None seen None seen/Few [facility] 01/04/2025 11:2 5 AM EST 01/04/2025 us Get Galo MD LAB MICROBIOLOGY - GENERAL OR DERABLES Final Result [facility] [address] [place] [address] * Protein, Total, Random Urine w/Creatinine (Protein/Creat Ratio) (01/04/2025 11:25 AM EST) Only the most recent of2 resultswithin the time period is included. Creatinine, Ur 30.8 Not Estab. mg/dL [facility] Protein, Ur 4.0 Not Estab. mg/dL [facility] Urine Protein/Creatin ine Ratio 130 0 - 200 mg/g creat [facility] Urine specimen (specimen) Urine specimen obtained by clean catch procedure / Unknown 01/04/2025 11:25 AM EST 01/04/2025 Get Galo MD LAB URINE ORDERABLES Final Re sult Performing Organization Address City/[facility]/ZIP Co de Phone Number [facility] [address] [place] [address] * Urine Albumin / Creatinine Ratio (01/04/2025 11:25 AM EST) Only the most recent of2 resultswithin the time period is included. Albumin, Urine 6.0 Not Estab. ug/mL [facility] Albumin/Creatin ine Ratio 19 0 - 29 mg/g creat [facility] Comment: Normal: 0 - 29 Moderately increased: 30 - 300 Severely increased: >300 Urine specimen (specimen) Urine specimen obtained by clean catch procedure / Unknown 01/04/2025 11:25 AM EST 01/04/2025 Get Galo MD LAB URINE ORDERABLES Final [facility] Performing Organization Address City/[facility]/ZIP Co de Phone Number [facility] [address] [place] [address] * (ABNORMAL) Urinalysis with microscopic (01/04/2025 11:25 AM EST) Specific [place], Urine 1.017 1.005 - 1.030 [facility] [phone] pH Urine 6.0 5.0 - 7.5 [facility] [phone] Color, Urine Yellow Yellow [facility] Appearance Urine Clear Clear [facility] [phone] WBC Esterase Urine Negative Negative [facility] [phone] Protein, Ur Negative Negative/Tra ce [facility] [phone] Glucose, Ur 3+(A) Negative [facility] [phone] Ketones, Urine Negative Negative [facility] Blood Urine Negative Negative [facility] Bilirubin Urine Negative Negative [facility] Urobilinogen Urine 0.2 0.2 - 1.0 mg/dL [facility] Nitrite, Urine Negative Negative [facility] [phone] Microscopic Examination Comment [facility] Comment:Microscopic follows if indicated. Other Microsc. Observations See below: [facility] Comment:Microscopic was casa cated and was performed. Urine specimen (specimen) Urine specimen obtained by clean catch procedure / Unknown 01/04/2025 11:25 AM EST 01/04/2025 us Get Galo MD LAB URINE ORDERABLES Final Re sult [facility] [address] [place] [address] * (ABNORMAL) Renal Function Panel (01/04/2025 11:25 AM EST) Only the most recent of2 resultswithin the time period is included. Glucose 133(H) 70 - 99 mg/dL [facility] BUN 14 8 - 27 mg/dL [facility] Creatinine 0.87 0.76 - 1.27 mg/dL [facility] eGFR CKD-EPI CR 2020 92 >59 mL/min/1.7 3 [facility] BUN/Creatinine Ratio 16 10 - 24 [facility] Sodium 145(H) 134 - 144 mmol/L [facility] Potassium 4.5 3.5 - 5.2 mmol/L [facility] Chloride 107(H) 96 - 106 mmol/L [facility] Bicarbonate (CO2) 28 20 - 29 mmol/L [facility] Calcium 8.9 8.6 - 10.2 mg/dL [facility] Albumin 4.1 3.8 - 4.8 g/dL [facility] Phosphorus 3.7 2.8 - 4.1 mg/dL [facility] Blood specimen (specimen) Venous blood / Unknown 01/04/2025 11:25 AM EST 01/04/2025 us Get Galo MD LAB BLOOD ORDERABLES Final Re sult [facility] [address], [address] [place] [address] * (ABNORMAL) CBC (12/12/2024 2:47 PM EDT) WBC 5.7 3.4 - 10.8 x10E3/uL [facility] RBC 4.40 4.14 - 5.80 x10E6/uL [facility] Hemoglobin 11.8(L) 13.0 - 17.7 g/dL [facility] Hematocrit 38.0 37.5 - 51.0 % [facility] MCV 86 79 - 97 fL [facility] MCH 26.8 26.6 - 33.0 pg [facility] MCHC 31.1(L) 31.5 - 35.7 g/dL [facility] RDW 15.7(H) 11.6 - 15.4 % [facility] Platelets 252 150 - 450 x10E3/uL [facility] 12/12/2024 2:47 PM EDT 12/12/2024 [facility] LAB BLOOD ORDERABLES Final Result [facility] [address] [place] [address] * PTH, Intact (12/12/2024 2:47 PM EDT) Pathologist [facility] PTH 27 15 - 65 pg/mL [facility] 12/12/2024 2:47 PM EDT 12/12/2024 [facility] LAB BLOOD ORDERABLES Final Result Performing Organization Address City/[facility] Co de Phone Number [facility] [address] [place] [address] * (ABNORMAL) Blood Panel (09/21/2018 12:00 AM [...] ug/dl RTAMA 09/21/2018 us [facility] [id number] LICITED RESULTS Final Result [facility] from Last 3 Months or Most Recently Relevant to Health Maintenance Insurance Medicare Medicaid [place] Medicare Medicaid [place] Care Teams Network Coordinator Relationship Specialty Start Date End Date Lula Lacey MD [address] [place] [address] PCP - General Internal Medicine 01/25/24
--- OUTSIDE RECORDS SUMMARY | 2025-02-13 14:10 | XMS_ITS | Encounter Summary ---
Author Organization [employer] Address 75 [facility] 7t [place] [address] Care Team Providers Care Bottom Finisher Name Role Phone Gordon Mills MD Primary Care Prov ider Bea Lacey MD Primary Care Provider [phone] Mariely Dennison PharmD Unavailable [phone] Cat Dumont CNP Primary Care Provider [phone] Reason for Referral * Social Care Application (Routine) - Closed Specialty Diagnoses / Procedures Referred By Contac t Referred To Contact Diabetic / Diabetes Services Diagnoses Type 2 diabetes mellitus with hyperglycemia, without long-term current use of insulin (HCC) Peter Barlow MD [address] [place] [address] Phone: tel: fax: Referral ID Status Reason Start Date Expiration Date V isits Requested Visits Authorized [id number] Closed Specialty Services Required 09/02/2022 03/01/2023 1 1 Encounter Details Date Type Department Care Team (Late st Contact Info) Description 09/02/2022 Orders Only [facility] CHC MED & PEDS [address] [place], [place] [phone] Peter Barlow MD [address] [place], [place] [phone] Type 2 diabetes mellitus with hyperglycemia, without [...] - [facility] [address] [place] [address] Cat Dumont, TYREE 505 [place] [address] 06/18/2025 1:30 PM EDT Office Visit [facility] ADULT DENTAL [address] [place] [address] Daniele Barlow Scheduled Referrals Name Type Priority Associated Diagnoses Order Schedule Referral to Diabetes Prevention Program Outpatient Referral Routine Type 2 diabetes mellitus with hyperglycemia, without long-term current use of insulin ([facility]/HCC) Ordered: 09/02/2022 documented as of this encounter Visit Diagnoses Diagnosis Type 2 diabetes mellitus with hyperglycemia, without long-term current use of insulin ([facility])- Primary documented in this encounter Additional Health Concerns Assessment Noted Time PHQ-9 Depression Total Score: 7 05/29/19 23 10:45 AM EDT documented as of this encounter Care Teams Bottom Finisher Relationship Specialty Start Date End Date Gordon Mills MD [address] [place] [address] PCP - General Internal Medicine 07/12/19 09/21/22 Bea Lacey MD [address] [place] [address] PCP - General Family Medicine 09/22/22 12/23/24 Cat Dumont CNP [address] [place] [address] PCP - General Family Medicine 12/24/24 Mariely Dennison PharmD [address] [place] [address] Pharmacist Internal Medicine 07/03/24 01/08/25 [facility] 09/01/24 12/02/24 [facility] 11/09/24 documented as of this encounter
--- OUTSIDE RECORDS SUMMARY | 2025-02-13 14:10 | XMS_ITS | Encounter Summary ---
Author Organization [employer] Address [address] [place] [address] 7t [place] [address] Care Team Providers Care Screwhead Polisher Name Role Phone Bea Lacey MD Primary Care Provider [phone] Mariely Dennison PharmD Unavailable [phone] Cat Dumont CNP Primary Care Provider [phone] Reason for Visit * Reason Comments Med Refill Encounter Details Date Type Department Care Team ([facility] Contact Info) Description 09/30/[address] [facility] MED & PEDS [address] [place] [address] Gordon Mills MD [address] [place] [address] Chronic rhinitis Social History Tobacco Use Types [...] Upcoming Encounters Date Type Department Care Team ([facility] Contact Info) Description 02/19/2025 2:00 PM EST Office Visit [facility] MED & PEDS [address] [place] [address] Cat Dumont CNP [address] [place] [address] 06/18/2025 1:30 PM EDT Office Visit [facility] CHC ADULT DENTAL [address] [place] [address] Daniele Barlow documented as of this encounter Visit Diagnoses Diagnosis Chronic rhinitis documented in this encounter Additional Health Concerns Assessment Noted Time PHQ-9 Depression Total Score: 7 05/29/19 23 10:45 AM EDT documented as of this encounter Care Teams Screwhead Polisher Relationship Specialty Start Date End Date Bea Lacey MD [address] [place] [address] PCP - General Family Medicine 09/22/22 12/23/24 Cat Dumont CNP [address] [place] [address] PCP - General Family Medicine 12/24/24 Mariely Dennison PharmD [address] [place] [address] Pharmacist Internal Medicine 07/03/24 01/08/25 [facility] 09/01/24 12/02/24 [facility] 11/09/24 documented as of this encounter
--- OUTSIDE RECORDS SUMMARY | 2025-02-13 14:10 | XMS_ITS | Encounter Summary ---
Author Organization [employer] Address 75 [facility] 7t [place] [address] Care Team Providers Care Wide Load Escort Name Role Phone Gordon Mills MD Primary Care Prov ider Bea Lacey MD Primary Care Provider [phone] Mariely Dennison PharmD Unavailable Cat Dumont CNP Primary Care Provider [phone] Reason for Visit * Reason Comments Med Refill Encounter Details Date Type Department Care Team ([facility] Contact Info) Description 09/02/2022 Refill [facility] CHC MED & PEDS [address] [place], [place] [phone] Peter Barlow MD 505 [place] [address] Social History Tobacco Use Types Packs/Day Years [...] Description 02/19/2025 2:00 PM EST Office [facility] MED & PEDS [address] [place] [address] Cat Dumont CNP 505 [place] [address] 06/18/2025 1:30 PM EDT Office [facility] ADULT DENTAL [address] [place] [address] Daniele Barlow documented as of this encounter Visit Diagnoses Not on filedocumented in this encounter Additional Health Concerns Assessment Noted Time PHQ-9 Depression Total Score: 7 05/29/19 10:45 AM EDT documented as of this encounter Care Teams Wide Load Escort Relationship Specialty Start Date End Date Gordon Mills MD 505 [place] [address] PCP - General Internal Medicine 07/12/19 09/21/22 Bea Lacey MD [address] [place] [address] PCP - General Family Medicine 09/22/22 12/23/24 Cat Dumont CNP 505 [place] [address] PCP - General Family Medicine 12/24/24 Mariely Dennison PharmD [address] [place] [address] Pharmacist Internal Medicine 07/03/24 01/08/25 [facility] 09/01/24 12/02/24 [facility] 11/09/24 documented as of this encounter
--- OUTSIDE RECORDS SUMMARY | 2025-02-13 14:10 | XMS_ITS | Encounter Summary ---
Author Organization [employer] Address 75 [facility] 7t [place] [address] Care Team Providers Care Statistician Mathematical Name Role Phone Bea Lacey MD Primary Care Provider [phone] Mariely Dennison PharmD Unavailable [phone] Cat Dumont CNP Primary Care Provider [phone] Reason for Visit * Reason Onset Date Comments Results 03/30/2023 Encounter Details Date Type Department Care Team ([facility] st Contact Info) Description 03/30/2023 Telephone [facility] MEDICINE 230 [place], [place] [phone] Bea Lacey MD [address] [place], [place] [phone] Results Social History Tobacco Use Types Packs/Day [...] Description 02/19/2025 2:00 PM EST Office Visit [facility] MED & PEDS 505 [place] [address] Cat Dumont CNP [address] [place] [address] 06/18/2025 1:30 PM EDT Office Visit [facility] ADULT DENTAL 505 [place] [address] Daniele Barlow documented as of this encounter Visit Diagnoses Not on filedocumented in this encounter Additional Health Concerns Assessment Noted Time PHQ-9 Depression Total Score: 7 05/29/19 23 10:45 AM EDT documented as of this encounter Care Teams Statistician Mathematical Relationship Specialty Start Date End Date Bea Lacey MD [address] [place] [address] PCP - General Family Medicine 09/22/22 12/23/24 Cat Dumont CNP 505 [place] [address] PCP - General Family Medicine 12/24/24 Mariely Dennison PharmD [address] [place] [address] Pharmacist Internal Medicine 07/03/24 01/08/25 [facility] 09/01/24 12/02/24 [facility] 11/09/24 documented as of this encounter
--- OUTSIDE RECORDS SUMMARY | 2025-02-13 14:10 | XMS_ITS | Encounter Summary ---
Author Organization [employer] Address 75 [facility] 7t [place] [address] Care Team Providers Care Operations General Agent Name Role Phone Bea Lacey MD Primary Care Provider [phone] Mariely Dennison PharmD Unavailable [phone] Cat Dumont CNP Primary Care Provider [phone] Reason for Visit * Reason Onset Date Comments Results 04/28/2023 Encounter Details Date Type Department Care Team ([facility] st Contact Info) Description 04/28/2023 Telephone [facility] MEDICINE 230 [place], [place] [phone] Bea Lacey MD [address] [place], [place] [phone] Results Social History Tobacco Use Types Packs/Day [...] Description 02/19/2025 2:00 PM EST Office Visit [facility] MED & PEDS [address] [place] [address] Cat Dumont CNP 505 [place] [address] 06/18/2025 1:30 PM EDT Office Visit [facility] ADULT DENTAL [address] [place] [address] Daniele Barlow documented as of this encounter Visit Diagnoses Not on filedocumented in this encounter Additional Health Concerns Assessment Noted Time PHQ-9 Depression Total Score: 7 05/29/19 23 10:45 AM EDT documented as of this encounter Care Teams Operations General Agent Relationship Specialty Start Date End Date Bea Lacey MD [address] [place] [address] PCP - General Family Medicine 09/22/22 12/23/24 Cat Dumont CNP [address] [place] [address] PCP - General Family Medicine 12/24/24 Mariely Dennison, [place] [address] [place] [address] Pharmacist Internal Medicine 07/03/24 01/08/25 [facility] 09/01/24 12/02/24 [facility] 11/09/24 documented as of this encounter
--- OUTSIDE RECORDS SUMMARY | 2025-02-13 14:10 | XMS_ITS | Patient Health Record ---
Author Organization [facility] Address [address] [place] [address] Care Team Providers Care Acid Patroller Name Role Phone Jeri Stokes M.D. Primary Care Provider Madie vailable Markus Parker Unavailable [phone] Reason For Referral No Information Plan Of Treatment No Information Insurance Providers Payer Name Payer Address Payer Phone Subscriber Number Group Number Insured Name Patient Relationship to Insured Coverage Start Date Coverage End Date MEDICARE OF [facility] [address] [place] [id number] [phone] [id number] SHERLY VARGAS Self - patient is the insured
--- OUTSIDE RECORDS SUMMARY | 2025-02-13 14:10 | XMS_ITS | Encounter Summary ---
Author Organization [employer] Address [address] [place] [address] Care Team Providers Care Soliciting Freight Agent Name Role Phone Bea Lacey MD Primary Care Provider [phone] Mariely Dennison PharmD Unavailable [phone] Cat Dumont CNP Primary Care Provider [phone] Reason for Visit * Reason Onset Date Comments Nurse Triage 04/03/2024 Encounter Details Date Type Department Care Team ([facility] st Contact Info) Description 04/03/2024 Telephone [facility] MED[facility] [address] [place], [place] [phone] Bea Lacey MD [address] [place], [place] [phone] Nurse Triage Social History Tobacco Use Types [...] Notes * Telephone Encounter - Nita Wilson, [employer] MACHINE TENDER - 04/03/2024 1:21 PM EST Triage call [...] and is followed by Pain management at [facility]. Has not notified that Dept at this [...] a new brain surgery on 04/05/24 at [facility]. Disposition reviewed and patient in agreement with plan. Will call to follow with appt. scheduling when recovered from procedure at [facility]. Patient requests that PCP be updated. Forwarded to PCP as patient requested. Protocol Used: Chest Pain (Adult) Protocol-Based Disposition: See in Office or Video Visit Today Override (Final) Disposition: Refer to Specialist Override Reason: Caller refused suggested disposition Override Notes: Patient followed by [facility] Pain Management but wants PCP updated Video [...] acuity questions The caller accepted this outcome. [phone] documented in this encounter Plan of Treatment Upcoming Encounters Date Type Department Care Team (Late st Contact Info) Description 02/19/2025 2:00 PM EST Office Visit [facility] MED & PEDS [address] [place] [address] Cat Dumont CNP [address] [place] [address] 06/18/2025 1:30 PM EDT Office Visit [facility] ADULT DENTAL [address] [place] [address] Daniele Barlow documented as of this encounter Visit Diagnoses Not on filedocumented in this encounter Additional Health Concerns Assessment Noted Time PHQ-9 Depression Total Score: 20 024 10:22 AM EDT documented as of this encounter Care Teams Soliciting Freight Agent Relationship Specialty Start Date End Date Bea Lacey MD [address] [place] [address] PCP - General Family Medicine 09/22/22 12/23/24 Cat Dumont CNP [address] [place] [address] PCP - General Family Medicine 12/24/24 Mariely Dennison PharmD [address] [place] [address] Pharmacist Internal Medicine 07/03/24 01/08/25 [facility] 09/01/24 12/02/24 [facility] 11/09/24 documented as of this encounter
== END ==
LOC: HO.PMC 14:07
PROVIDERS: Visit Provider Anesthesiology
DX: Z45.1 Encounter for adjustment and management of infusion pump (principal)
CPT/HCPCS: 62370

== ENCOUNTER → 2025-02-13 14:06 | Outpatient (BNVA) | payer MEDICARE, OTHER, SELFPAY | PROVIDERS: Visit Provider Anesthesiology | DX: M54.51 Vertebrogenic low back pain (principal); M53.3 Sacrococcygeal disorders, not elsewhere classified; G89.29 Other chronic pain; M46.1 Sacroiliitis, not elsewhere classified; Z45.1 Encounter for adjustment and management of infusion pump | CPT/HCPCS: 62370 ==